=== PATIENT | male | born 1935 | race Caucasian/White ===

== ENCOUNTER 2016-04-26 10:13 | Outpatient (RCR) | payer MEDICARE, MEDICAID ==
[~2016-04-26 10:13] MED LIST: AC500T PO; AC80CT PO; ACDPT PO; ACET-2027 PO; ACET-2469 PO; ALBU2.5V4 IH; ALBU2.5V4 IN; AMLO10TA PO; AMLO10TA2 PO; AMLO10TA5; AMLO10TA82 PO; AMOX500C2 PO; ASPI-586 PO; ATEN50TA PO; ATN25T; ATN50T; ATOR40TA70 PO; ATROPINE EYE; AZIT-21 PO; AZIT250T5 PO; BENA20TA2 PO; BENZ-13 PO; BENZ200C51 PO; BNZ20T PO; C250T; C250T PO; CEFD300C3 PO; CHLO PO; CLN.1T; CLN.1T PO; CLON1TAB27 PO; CLON1TAB3 PO; CYAN50LO PO; DEXL60CA PO; DIPH25TA82 PO; DOXA2TAB2 PO; DOXA4TAB2 PO; DOXY100C2 PO; DOXY100C42 PO; DPH25C; FENO135C PO; FISH1CAP15 PO; FISH400C PO; FLUT16SP22 NS; GENTAMICIN; GLIP10TA13 PO; GLIP5TAB13 PO; GLPZ10TCR; GUAI600T43 PO; GUAI600T86 PO; HYDR-2856 PO; HYDR1TAB PO; IBP800T; IBP800T PO; LEVO500T69 PO; LEVO5TAB12 PO; LEVO5TAB2 PO; LORA1TAB PO; LORA2TAB PO; LOSA100T16; LOSA100T16 PO; LOVA10TA; LOVA10TA PO; LRZ1T; LSRT50T; LVST20T; METF500T4 PO; METH4TAB PO; MNTL10T PO; MONT10TA21 PO; MONT10TA24 PO; MTF500T; MTF500T PO; NF-ESOM40C PO; NF-TYLARTH; NF-VITB12; OXYB10TA PO; OXYB15TA PO; OXYC-12 PO; PANT40SU PO; PANT40TA3 PO; PARO20TA57; PHYT100T PO; PRD10T PO; PRD20T PO; PRD50T PO; PREG100C PO; PREG100C22 PO; PRM25T PO; PRM5C60 TOP; PROM6.25 PO; PRX20T; PRX20T PO; RANI150T90 PO; RIVA1PAT TD; RIVA1PAT11 TD; SCR1T1 PO; SENN15TA PO; SENN1TAB76; SENN1TAB76 PO; SNN187T; SUCR1TAB PO; TIOT18CA2 INH; TOLTA4; TOLTA4 PO; TRAM50TA2 PO; TRAV0.004S OP; TRIA15CR TOP; TYLENOL PM; VANCOMYCIN; VILA10TA PO; [UNRECOGNIZED DRUG - OTHER]
== END 2016-05-01 11:05 | disposition home or self-care (01) ==
PROVIDERS: ATTEND Nurse Practitioner Family
DX: M54.2 Cervicalgia (principal); R53.1 Weakness

== ENCOUNTER 2016-05-12 12:49 | Emergency (ER) | payer MEDICARE, MEDICAID ==
[~2016-05-12] VITALS: Ht 182.9 cm; Wt 90.7 kg
[2016-05-12 13:13] LABS: BASOPHILS % (AUTO) 0 % (0-10); EOSINOPHILS # (AUTO) 0.2 10^3/uL (0.0-0.3); EOSINOPHILS % (AUTO) 4 % (0-10); LYMPHOCYTES # (AUTO) 2.4 X 10^3 (1.0-4.0); LYMPHOCYTES % (AUTO) 36 % (12-44); MEAN CORPUSCULAR HEMOGLOBIN 29 PG (25-34); MEAN CORPUSCULAR HGB CONC 33 G/DL (32-36); MEAN CORPUSCULAR VOLUME 90 FL (80-99); MEAN PLATELET VOLUME 9.2 FL (7.4-10.4); MONOCYTES # (AUTO) 0.9 X 10^3 (0.0-1.0); MONOCYTES % (AUTO) 14 % (0-12); NEUTROPHILS # (AUTO) 3.1 X 10^3 (1.8-7.8); NEUTROPHILS % (AUTO) 46 % (42-75); PLATELET COUNT 204 10^3/uL (130-400); RED BLOOD COUNT 4.28 10^6/uL (4.35-5.85); RED CELL DISTRIBUTION WIDTH 12.6 % (10.0-14.5); WHITE BLOOD COUNT 6.7 10^3/uL (4.3-11.0)
--- NOTE | 2016-05-12 13:22 | Diagnostic Imaging Report ---
INDICATION: Chronic cough, occasional productive cough. EXAMINATION: Frontal chest 05/12/2016 Comparison made to 01/21/2016. findings: Bibasal atelectasis is noted versus infiltrates. No effusions. No pneumothorax. The heart is stable. Pulmonary vasculature is unremarkable. IMPRESSION: 1. Bibasal atelectasis versus mild infiltrate. Remaining chest stable. Dictated by: Dictated on workstation # [id number]
[2016-05-12 13:34] LABS: ALANINE AMINOTRANSFERASE 30 U/L (0-55); ALBUMIN 4.3 G/DL (3.2-4.5); ANION GAP 12 MMOL/L (5-14); ASPARTATE AMINO TRANSFERASE 27 U/L (5-34); BILIRUBIN,TOTAL 0.4 MG/DL (0.1-1.0); BLOOD UREA NITROGEN 10 MG/DL (7-18); BUN/CREATININE RATIO 12; CALCIUM 9.1 MG/DL (8.5-10.1); CARBON DIOXIDE 22 MMOL/L (21-32); CHLORIDE 107 MMOL/L (98-107); CREATININE SERUM 0.84 MG/DL (0.60-1.30); GFR ESTIMATED > 60; GLUCOSE 92 MG/DL (70-105); SODIUM 141 MMOL/L (135-145); TOTAL PROTEIN 6.6 G/DL (6.4-8.2)
--- NOTE | 2016-05-12 13:52 | ED Cough/URI ---
General Chief Complaint: Cough/Cold/Flu Symptoms Stated Complaint: COUGH Nursing Triage Note: To ER with complaints of chronic cough that has become somewhat productive. Denies any other s/s Source: patient, family Exam Limitations: no limitations History of Present Illness Time seen by provider: 13:45 Initial Comments The patient reports that he has a chronic cough. 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 Over the past 2 days he has had increased cough with the production of white sputum. He is unaware of any fever. He also reminds that he is diabetic. Timing/Duration: yesterday Severity/Quality: moderate, productive cough Allergies and Home Medications Allergies Coded Allergies: aspirin (Unverified Allergy, Unknown, 05/20/14) codeine (Verified Allergy, Unknown, 04/07/06) hydrocodone (Unverified Allergy, Unknown, 10/16/15) Uncoded Allergies: SSRI (Allergy, Unknown, 05/20/14) TCA (Allergy, Unknown, 05/20/14) Home Medications Acetaminophen/Diphenhydramine 1 Each Tablet Unknown Dose PO (Reported) Albuterol Sulfate 2.5 Mg/3 Ml Vial.neb 2.5 MG IH Q4H PRN PRN SHORTNESS OF BREATH (Reported) Amlodipine Besylate 10 Mg Tablet 10 MG PO DAILY (Reported) Atorvastatin Calcium 40 Mg Tablet 40 MG PO HS (Reported) Benazepril HCl 20 Mg Tablet 20 MG PO DAILY (Reported) Chlorphen/Dm/Acetaminophen/GG 1 Each Tb.cp.seq 1-2 TAB PO Q6H PRN PRN DRAINAGE ( Reported) Clonazepam 1 Mg Tablet 1 MG PO Q8H PRN PRN ANXIETY (Reported) Cyanocobalamin 50 Mcg Lozenge 500 MCG PO DAILY (Reported) Doxazosin Mesylate 4 Mg Tablet 4 MG PO HS (Reported) Fish Oil/Dha/Epa 1 Each Capsule 1 EACH PO DAILY (Reported) Glipizide 5 Mg Tablet 5 MG PO DAILY (Reported) Levocetirizine Dihydrochloride 5 Mg Tablet 5 MG PO HS (Reported) Metformin HCl 500 Mg Tablet 250 MG PO BID WITH MEALS (Reported) TAKES 1/2 (500MG) TABLET Montelukast Sodium 10 Mg Tablet 10 MG PO HS (Reported) Montelukast Sodium 10 Mg Tablet 10 MG PO HS (Reported) Oxybutynin Chloride 10 Mg Tab.er.24 10 MG PO DAILY (Reported) Pantoprazole Sodium 40 Mg Tablet.dr 40 MG PO HS (Reported) Pregabalin 100 Mg Capsule 100 MG PO BID (Reported) Ranitidine HCl 150 Mg Tablet 150 MG PO BID (Reported) Rivastigmine 4.6 Mg Patch 4.6 MG TD DAILY (Reported) Sucralfate 1 Gm Tablet 1 GM PO QID (Reported) Tiotropium [place] 1 Inh Aerp 1 CAP INH HS (Reported) Tramadol HCl 50 Mg Tablet 50 MG PO BID PRN PRN PAIN (Reported) Triamcinolone Acetonide 15 Gm Cream..g. TOP BID (Reported) 0.1% APPLY TO FEET Vilazodone Hydrochloride 10 Mg Tablet 10 MG PO HS (Reported) Constitutional: see HPI EENTM: no symptoms reported Respiratory: cough dyspnea on exertion phlegm Cardiovascular: no symptoms reported Gastrointestinal: no symptoms reported Genitourinary: no symptoms reported Musculoskeletal: no symptoms reported Skin: no symptoms reported Psychiatric/Neurological: No Symptoms Reported Hematologic/Lymphatic: No Symptoms Reported Immunological/Allergic: no symptoms reported Past Phnrzpn-Cnncjn-Golebi Hx Patient Social History Alcohol Use: Past History Recreational Drug Use: No Smoking Status: Former Smoker Type Used: Cigarettes Former Smoker/When Quit: May 26, 1959 2nd Hand Smoke Exposure: No Recent Foreign Travel: No Contact w/Someone Who Travel: No Recent Infectious Disease Expo: No Recent Hopitalizations: No Immunizations Up To Date Tetanus Booster (TDap): Unknown Date of Pneumonia Vaccine: Jan 23, 2015 Date of Influenza Vaccine: Dec 20, 2015 Seasonal Allergies Seasonal Allergies: No Surgeries HX Surgeries: Yes Surgeries: Abdominal, Adenoidectomy, Eye Surgery, Prostatectomy, Tonsillectomy Respiratory Hx Respiratory Disorders: Yes (wears O2 at noc at 2 L/m by nasal cannula) Respiratory Disorders: Asthma, Pneumonia, Chronic Bronchitis, COPD Cardiovascular Hx Cardiac Disorders: Yes Cardiac Disorders: Chronic Edema/Swelling, High Cholesterol, Hypertension Neurological Hx Neurological Disorders: Yes Neurological Disorders: Dementia Reproductive System Hx Reproductive Disorders: No Sexually Transmitted Disease: No Genitourinary Hx Genitourinary Disorders: Yes (PROSTATE CANCER > 10 YEARS AGO) Genitourinary Disorders: Prostate Problems Gastrointestinal Hx Gastrointestinal Disorders: Yes Gastrointestinal Disorders: Abdominal Hernia, Gastroesophageal Reflux, Polyps, Hiatal Hernia Musculoskeletal Hx Musculoskeletal Disorders: Yes ("Lyrica for arthritis") Musculoskeletal Disorders: Arthritis Endocrine Hx Endocrine Disorders: Yes Endocrine Disorders: Diabetes, Non-Insulin dep HEENT HX ENT Disorders: Yes (tear duct dysfunction, vision deficit/disfigurement of right eye, sinusitis) Cancer Hx Cancer: Yes (PROSTATE CANCER-S/P SURGERY ONLY;BASAL CELL CA R EYELID) Cancer: Prostate, Skin Psychosocial Hx Psychiatric Problems: Yes Behavioral Health Disorders: Anxiety, Depression Integumentary HX Skin/Integumentary Disorder: Yes (SKIN CANCER) Blood Transfusions Hx Blood Disorders: No Adverse Reaction to a Blood Tr: No Family Medical History Significant Family History: No Pertinent Family Hx Family Medial History: FH: breast cancer G8 SISTER Physical Exam Vital Signs Vital Sign - Last 12Hours Capillary Refill : Less Than 3 Seconds General Appearance: mild distress Eyes: Bilateral Eye Normal Inspection HEENT: normal ENT inspection Neck: full range of motion Respiratory: chest non-tender decreased breath sounds (breath sounds are distant but clear) Cardiovascular: normal peripheral pulses regular rate, rhythm no edema no gallop no JVD no murmur Gastrointestinal: normal bowel sounds non tender soft no organomegaly no pulsatile mass Extremities: normal range of motion non-tender normal inspection no pedal edema no calf tenderness normal capillary refill pelvis stable Neurologic/Psychiatric: air sampling and monitoring II-XII nml as tested no motor/sensory deficits alert normal mood/affect oriented x 3 Skin: normal color warm/dry cyanosis cool diaphoresis damp Lymphatic: no adenopathy axilla node tender (R) axilla node tender (L) inguinal node tender (R) inguinal node tender (L) Progress/Results/Core Measures Results/Orders Lab Results Laboratory Tests Test 05/12/16 13:00 Range/Units Alanine Aminotransferase (ALT/SGPT) 30 0-55 U/L Albumin 4.3 3.2-4.5 G/DL Alkaline Phosphatase 65 40-136 U/L Anion Gap 12 5-14 MMOL/L Aspartate Amino Transf (AST/SGOT) 27 5-34 U/L BUN/Creatinine Ratio 12 Basophils # (Auto) 0.0 0.0-0.1 10^3/uL Basophils (%) (Auto) 0 0-10 % Blood Urea Nitrogen 10 7-18 MG/DL Calcium Level 9.1 8.5-10.1 MG/DL Carbon Dioxide Level 22 21-32 MMOL/L Chloride Level 107 98-107 MMOL/L Creatinine 0.84 0.60-1.30 MG/DL Eosinophils # (Auto) 0.2 0.0-0.3 10^3/uL Eosinophils (%) (Auto) 4 0-10 % Estimat Glomerular Filtration Rate > 60 Glucose Level 92 70-105 MG/DL Hematocrit 39 L 40-54 % Hemoglobin 12.6 L 13.3-17.7 G/DL Lymphocytes # (Auto) 2.4 1.0-4.0 X 10^3 Lymphocytes (%) (Auto) 36 12-44 % Mean Corpuscular Hemoglobin 29 25-34 PG Mean Corpuscular Hemoglobin Concent 33 32-36 G/DL Mean Corpuscular Volume 90 80-99 FL Mean Platelet Volume 9.2 7.4-10.4 FL Monocytes # (Auto) 0.9 0.0-1.0 X 10^3 Monocytes (%) (Auto) 14 H 0-12 % Neutrophils # (Auto) 3.1 1.8-7.8 X 10^3 Neutrophils (%) (Auto) 46 42-75 % Platelet Count 204 130-400 10^3/uL Potassium Level 4.0 3.6-5.0 MMOL/L Red Blood Count 4.28 L 4.35-5.85 10^6/uL Red Cell Distribution Width 12.6 10.0-14.5 % Sodium Level 141 135-145 MMOL/L Total Bilirubin 0.4 0.1-1.0 MG/DL Total Protein 6.6 6.4-8.2 G/DL White Blood Count 6.7 4.3-11.0 10^3/uL Micro Results Microbiology 05/12/16 Influenza Types A,B Antigen ([facility]) - Final, Complete My Orders Orders-TOMMY BONILLA MD Cbc With Automated Diff (05/12/16 12:52) Comprehensive Metabolic Panel (05/12/16 12:52) Influenza A And B Antigens (05/12/16 12:52) Chest 1 View, Ap/Pa Only (05/12/16 12:52) Vital Signs/I&O Vital Sign - Last 12Hours 05/12/16 05/12/16 13:00 13:00 Temp 99.0 Pulse 76 Resp 18 B/P 132/75 Pulse Ox 93 O2 Delivery Nasal Cannula Nasal Cannula O2 Flow Rate 2 2 Blood Pressure Mean: 94 Departure Impression Impression: Primary Impression: bronchitis Disposition: 01 HOME, SELF-CARE Condition: Stable/Unchanged Departure-Patient Inst. Decision time for Depature: 13:49 Referrals: ASIM LINARES (PCP) Primary Care Physician Patient Instructions: Acute Bronchitis, Adult (DC) Add. Discharge Instructions: All discharge instructions reviewed with patient and/or family. Voiced understanding. Omnicef as directed this is an antibiotic useful in bronchitis. Tessalon Perles for cough. Scripts Benzonatate (Tessalon Perle)100 Mg [id number] Mg PO twice a day #20 CAP Prov:TOMMY BONILLA MD 05/12/16 Cefdinir 300 Mg [id number] Mg PO twice a day #14 CAP Prov:TOMMY BONILLA MD 05/12/16 TOMMY BONILLA MD May 12, 2016 13:52
[2016-05-12] MEDS ORDERED: CEFD300C3 PO (13:53)
[2016-05-12] MEDS ORDERED: BENZ-13 PO (13:53)
[2016-05-12 13:59] VITALS: BP 116/67
== END 2016-05-12 14:00 | disposition home or self-care (01) ==
LOC: EDUNIT# 12:49 → ER 12:50
DX: J40 Bronchitis, not specified as acute or chronic (principal); J43.9 Emphysema, unspecified; I10 Essential (primary) hypertension; E11.9 Type 2 diabetes mellitus without complications; Z79.899 Other long term (current) drug therapy; Z79.84 Long term (current) use of oral hypoglycemic drugs; Z87.891 Personal history of nicotine dependence
CPT/HCPCS: 36415; 71010; 80053; 85025; 87804

== ENCOUNTER 2016-05-19 23:46 | Emergency (ER) | payer MEDICARE, MEDICAID ==
[~2016-05-19] VITALS: Ht 182.9 cm; Wt 90.7 kg
--- OUTSIDE RECORDS SUMMARY | 2016-05-19 23:54 | XMS REPORT | Continuity of Care Document ---
Author Author [facility] Organization [facility] Address Unknown Phone Unavailable Allergies Active Description Code Type Severity Reaction Onset Reported/Identified Relationship to Patient Clinical Status Yes codeine [id number] Drug Allergy Unknown N/A 04/07/2006 Yes aspirin [id number] Drug Allergy Unknown N/A 05/20/2014 Yes SSRI SSRI Unknown N/A 05/20/2014 Yes TCA TCA Unknown N/A 05/20/2014 Yes hydrocodone [id number] Drug Allergy Unknown N/A 10/16/2015 Medications Problems Date Dx Coded Attending Type Code Diagnosis Diagnosed By 02/28/1104 ASIM LINARES Ot M54.2 CERVICALGIA 02/28/1104 ASIM LINARES Ot R53.1 WEAKNESS 10/09/2009 Ot 250.00 10/09/2009 Ot 401.9 10/09/2009 Ot 780.4 10/09/2009 Ot 787.03 10/09/2009 Ot V58.69 02/25/2010 Ot 692.9 02/25/2010 Ot 782.1 03/16/2010 Ot 250.00 03/16/2010 Ot 276.1 03/16/2010 Ot 300.4 03/16/2010 Ot 401.9 03/16/2010 Ot 788.20 09/17/2010 Ot 379.91 PAIN IN OR AROUND EYE 09/17/2010 Ot V45.89 POSTSURGICAL STATES NEC 10/06/2010 Ot 379.91 PAIN IN OR AROUND EYE 10/06/2010 Ot V45.89 POSTSURGICAL STATES NEC 10/15/2010 Ot 185 MALIGN NEOPL PROSTATE 10/15/2010 Ot 250.00 DIAB KASSANDRA WO COMPL, TYPE II OR UNSPEC TY 10/15/2010 Ot 401.9 HYPERTENSION NOS 10/15/2010 Ot 788.1 DYSURIA 10/15/2010 Ot 791.9 ABN URINE FINDINGS NEC 01/28/2011 Ot 466.0 ACUTE BRONCHITIS 01/28/2011 Ot 786.2 COUGH 02/23/2011 Ot 300.00 ANXIETY STATE NOS 02/23/2011 Ot 490 BRONCHITIS NOS 02/23/2011 Ot 553.3 DIAPHRAGMATIC HERNIA 02/23/2011 Ot 786.05 SHORTNESS OF BREATH 03/25/2011 Ot 401.9 HYPERTENSION NOS 03/25/2011 Ot 461.9 ACUTE SINUSITIS NOS 03/25/2011 Ot 490 BRONCHITIS NOS 03/25/2011 Ot 786.2 COUGH 03/25/2011 Ot V58.69 OTH MED,LT,CURRENT USE 03/26/2011 Ot 250.00 DIAB KASSANDRA WO COMPL, TYPE II OR UNSPEC TY 03/26/2011 Ot 401.9 HYPERTENSION NOS 03/26/2011 Ot 466.0 ACUTE BRONCHITIS 03/26/2011 Ot 786.59 CHEST PAIN NEC 03/26/2011 Ot V58.69 OTH MED,LT,CURRENT USE 04/07/2011 Ot 250.00 DIAB KASSANDRA WO COMPL, TYPE II OR UNSPEC TY 04/07/2011 Ot 401.9 HYPERTENSION NOS 04/07/2011 Ot 491.22 OBSTRUCTIVE CHRONIC BRONCHITIS WITH ACUT 04/07/2011 Ot 786.2 COUGH 04/18/2011 Ot 250.00 DIAB KASSANDRA WO COMPL, TYPE II OR UNSPEC TY 04/18/2011 Ot 300.00 ANXIETY STATE NOS 04/18/2011 Ot 401.9 HYPERTENSION NOS 04/18/2011 Ot 789.09 ABDOMINAL PAIN, OTHER SPECIFIED SITE 04/18/2011 Ot V58.69 OTH MED,LT,CURRENT USE 04/19/2011 Ot 300.00 ANXIETY STATE NOS 04/21/2013 SHAYY DUARTE, CEASAR Brock Ot 486 PNEUMONIA, ORGANISM NOS 04/21/2013 SHAYY DUARTE, CEASAR Brock Ot 786.2 COUGH 04/21/2013 SHAYY DUARTE, CEASAR Brock Ot V06.6 PROPHYLACTIC VACC AGNST STREPTOCOCCUS PN 07/28/2013 NIEVES ALVARADO MD Ot 466.0 ACUTE BRONCHITIS 07/28/2013 CHRISTIANO DUARTE, NIEVES Luis Ot 786.2 COUGH 11/17/2013 AYLIN SANTACRUZ MD Ot 716.96 ARTHROPATHY NOS-L/LEG 11/17/2013 AYLIN SANTACRUZ MD Ot V57.1 PHYSICAL THERAPY NEC 01/15/2014 NELY MCCABE MD Ot 250.00 DIAB KASSANDRA WO COMPL, TYPE II OR UNSPEC TY 01/15/2014 NELY MCCABE MD Ot 401.9 HYPERTENSION NOS 01/15/2014 NELY MCCABE MD Ot 784.7 EPISTAXIS 01/15/2014 NELY MCCABE MD Ot V58.69 OT MED,LT,CURRENT USE 04/05/2014 LELAND DUARTE FACC, ALI FACP CCDS Ot 250.00 04/05/2014 LELAND DUARTE FACC, ALI FACP CCDS Ot 272.4 04/05/2014 LELAND DUARTE FACC, ALI FACP CCDS Ot 401.9 04/05/2014 LELAND DUARTE FAC, ALI FACP CCDS Ot 786.59 04/05/2014 LELAND DUARTE FAC, ALI FACP CCDS Ot V58.69 04/05/2014 LELAND DUARTE FAC, ALI FACP CCDS Ot 250.00 04/05/2014 LELAND DUARTE FAC, ALI FACP CCDS Ot 272.4 04/05/2014 LELAND DUARTE FAC, ALI FACP CCDS Ot 401.9 04/05/2014 LELAND DUARTE [facility], ALI FACP CCDS Ot 786.59 04/05/2014 LELAND DUARTE [facility], ALI FACP CCDS Ot V58.69 05/20/2014 Ot 473.9 CHRONIC SINUSITIS NOS 05/20/2014 Ot 786.2 COUGH 09/02/2014 BOZENA WERNER WIRELESS ARCHITECT Ot 466.0 ACUTE BRONCHITIS 09/02/2014 BOZENA WERNER WIRELESS ARCHITECT Ot 786.2 COUGH 12/26/2014 SHAYY DUARTE, CEASAR Brock Ot 491.21 OBSTR CHRONIC BRONCHITIS, W (ACUTE) EXAC 12/26/2014 CEASAR LUCAS MD Ot 786.2 COUGH 12/28/2014 KAYLIN DUARTE, ORESTES Chavez Ot 724.2 12/28/2014 KAYLIN DUARTE, ORESTES Chavez Ot 728.87 01/04/2015 KAYLIN DUARTE, ORESTES Chavez Ot 724.2 01/04/2015 KAYLIN DUARTE, ORESTES Chavez Ot 728.87 02/24/2015 NIEVES ALVARADO MD Ot J20.9 ACUTE BRONCHITIS, UNSPECIFIED 03/01/2015 KAYLIN DUARTE, ORESTES Chavez Ot J18.9 03/06/2015 ORESTES EWING MD Ot J18.9 03/10/2015 KAYLIN DUARTE, ORESTES Chavez Ot J44.9 03/15/2015 KAYLIN DUARTE, ORESTES Chavez Ot J44.9 03/21/2015 ELIOT DUARTE, NELY Craft Ot F17.211 NICOTINE DEPENDENCE, CIGARETTES, IN [place] 03/21/2015 ELIOT DUARTE, NELY Craft Ot J44.0 CHRONIC OBSTRUCTIVE PULMON DISEASE W ACU 03/28/2015 Ot 272.4 03/28/2015 Ot 401.9 03/28/2015 Ot V58.69 03/28/2015 Ot 272.4 03/28/2015 Ot 401.9 03/28/2015 Ot V58.69 03/28/2015 Ot 272.4 03/28/2015 Ot 401.9 03/28/2015 Ot V58.69 03/28/2015 Ot 272.4 03/28/2015 Ot 401.9 03/28/2015 Ot V58.69 03/28/2015 Ot 272.4 03/28/2015 Ot 414.00 03/28/2015 Ot V58.69 03/28/2015 Ot 250.00 03/28/2015 Ot 272.4 03/28/2015 Ot V58.69 03/28/2015 Ot 272.4 03/28/2015 Ot 401.9 03/28/2015 Ot V58.69 03/28/2015 BAIMAJUVENAL L DRY WALL APPLICATOR Ot 272.4 03/28/2015 BAIMAJUVENAL L DRY WALL APPLICATOR Ot 401.9 03/28/2015 BAIMA JUVENAL L DRY WALL APPLICATOR Ot 272.4 03/28/2015 BAIMA JUVENAL L DRY WALL APPLICATOR Ot 401.9 03/28/2015 BAIMA JUVENAL L DRY WALL APPLICATOR Ot V58.69 03/28/2015 LELAND DUARTE FACC, ALI FACP CCDS Ot 250.00 03/28/2015 LELAND DUARTE FACC, ALI FACP CCDS Ot 272.4 03/28/2015 LELAND DUARTE FACC, ALI FACP CCDS Ot 401.9 03/28/2015 LELAND DUARTE FACC, ALI FACP CCDS Ot 786.59 03/28/2015 LELAND DUARTE FACC, ALI FACP CCDS Ot V58.69 03/28/2015 KAYLIN DUARTE, ORESTES Chavez Ot 724.2 03/28/2015 KAYLIN DUARTE, ORESTES Chavez Ot 728.87 03/28/2015 KAYLIN DUARTE, ORESTES Chavez Ot J44.9 03/28/2015 KAYLIN DUARTE, ORESTES Chavez Ot J18.9 04/20/2015 NATHANIEL JETT WIRELESS ARCHITECT Ot R04.2 04/26/2015 NATHANIEL JETT OMER Ot R04.2 05/27/2015 MARSHAL SANDERS DO Ot E11.9 TYPE 2 DIABETES MELLITUS WITHOUT COMPLIC 05/27/2015 LEI SANDERS DOI Ot E78.5 HYPERLIPIDEMIA, UNSPECIFIED 05/27/2015 LEI SANDERS DOI Ot F03.90 UNSPECIFIED DEMENTIA WITHOUT BEHAVIORAL 05/27/2015 LEI SANDERS DOI Ot F17.210 NICOTINE DEPENDENCE, CIGARETTES, UNCOMPL 05/27/2015 LEI SANDERS DOI Ot F32.9 MAJOR DEPRESSIVE DISORDER, SINGLE EPISOD 05/27/2015 LEI SANDERS DOI Ot I10 ESSENTIAL (PRIMARY) HYPERTENSION 05/27/2015 LEI SANDERS DOI Ot I65.23 OCCLUSION AND STENOSIS OF BILATERAL LINK 05/27/2015 LEI SANDERS DOI Ot J44.9 CHRONIC OBSTRUCTIVE PULMONARY DISEASE, U 05/27/2015 TOMMY SRINIVASAN MARSHAL Ot K21.9 GASTRO-ESOPHAGEAL REFLUX DISEASE WITHOUT 05/27/2015 TOMMY SRINIVASAN MARSHAL Ot N40.0 ENLARGED PROSTATE WITHOUT LOWER URINARY 05/27/2015 LEI SANDERS DOI Ot R07.9 CHEST PAIN, UNSPECIFIED 05/27/2015 LEI SANDERS DOI Ot Z99.81 DEPENDENCE ON SUPPLEMENTAL OXYGEN 05/31/2015 SABRINA MARKS DO Ot E66.9 05/31/2015 SABRINA MARSK DO Ot J44.9 05/31/2015 SABRINA MARKS DO Ot Z85.828 06/12/2015 SABRINA MARKS DO Ot E66.9 06/12/2015 SABRINA MARKS DO Ot J44.9 06/12/2015 SABRINA MARKS DO Ot Z85.828 06/20/2015 SABRINA MARKS DO Ot E66.9 06/20/2015 SABRINA MARKS DO Ot J44.9 06/20/2015 SABRINA MARKS DO Ot R06.00 06/20/2015 SABRINA MARKS DO Ot Z85.828 07/03/2015 SABRINA MARKS DO Ot E66.9 07/03/2015 SABRINA MARKS DO Ot J44.9 07/03/2015 SABRINA MARKS DO Ot R06.00 07/03/2015 SABRINA MARKS DO Ot Z85.828 07/30/2015 Ot 250.00 DIAB KASSANDRA WO COMPL, TYPE II OR UNSPEC TY 07/30/2015 Ot 401.9 HYPERTENSION NOS 07/30/2015 Ot 466.0 ACUTE BRONCHITIS 07/30/2015 Ot 786.59 CHEST PAIN NEC 07/30/2015 Ot V58.69 OTH MED,LT,CURRENT USE 08/30/2015 Ot 250.00 DIAB KASSANDRA WO COMPL, TYPE II OR UNSPEC TY 08/30/2015 Ot 401.9 HYPERTENSION NOS 08/30/2015 Ot 466.0 ACUTE BRONCHITIS 08/30/2015 Ot 786.59 CHEST PAIN NEC 08/30/2015 Ot V58.69 OTH MED,LT,CURRENT USE 09/29/2015 Ot 300.00 09/29/2015 Ot V58.69 10/16/2015 JOSHUA SRINIVASAN ROBBY Estela Ot I51.7 CARDIOMEGALY 10/16/2015 MICHELLE LEWIS DOA Estela Ot J44.0 CHRONIC OBSTRUCTIVE PULMON DISEASE W ACU 10/16/2015 MICHELLE LEWIS DOA Estela Ot R05 COUGH 10/16/2015 MICHELLE LEWIS DOA Estela Ot Z87.891 PERSONAL HISTORY OF NICOTINE DEPENDENCE 10/30/2015 Ot 300.00 10/30/2015 Ot V58.69 12/27/2015 ROBBY HANLEY MD Ot E11.9 TYPE 2 DIABETES MELLITUS WITHOUT COMPLIC 12/27/2015 ROBBY HANLEY MD Ot I10 ESSENTIAL (PRIMARY) HYPERTENSION 12/27/2015 ROBBY HANLEY MD Ot I44.0 ATRIOVENTRICULAR BLOCK, FIRST DEGREE 12/27/2015 ROBBY HANLEY MD Ot J44.1 CHRONIC OBSTRUCTIVE PULMONARY DISEASE W 12/27/2015 ROBBY HANLEY MD Ot K21.9 GASTRO-ESOPHAGEAL REFLUX DISEASE WITHOUT 12/27/2015 ROBBY HANLEY MD Ot K44.9 DIAPHRAGMATIC HERNIA WITHOUT OBSTRUCTION 12/27/2015 ROBBY HANLEY MD Ot Z87.891 PERSONAL HISTORY OF NICOTINE DEPENDENCE 01/01/2016 Ot 272.4 HYPERLIPIDEMIA NEC/NOS 01/01/2016 Ot 401.9 HYPERTENSION NOS 01/01/2016 Ot V58.69 OTH MED,LT,CURRENT USE 01/01/2016 Ot 272.4 HYPERLIPIDEMIA NEC/NOS 01/01/2016 Ot 401.9 HYPERTENSION NOS 01/01/2016 Ot V58.69 OTH MED,LT,CURRENT USE 01/01/2016 Ot 272.4 HYPERLIPIDEMIA NEC/NOS 01/01/2016 Ot 401.9 HYPERTENSION NOS 01/01/2016 Ot V58.69 OTH MED,LT,CURRENT USE 01/01/2016 Ot 272.4 HYPERLIPIDEMIA NEC/NOS 01/01/2016 Ot 414.00 CORON ATHEROSCLER NOS TYPE VESSEL, NATIV 01/01/2016 Ot V58.69 OTH MED,LT,CURRENT USE 01/01/2016 Ot 250.00 DIAB KASSANDRA WO COMPL, TYPE II OR UNSPEC TY 01/01/2016 Ot 272.4 HYPERLIPIDEMIA NEC/NOS 01/01/2016 Ot V58.69 OTH MED,LT,CURRENT USE 01/01/2016 Ot 272.4 HYPERLIPIDEMIA NEC/NOS 01/01/2016 Ot 401.9 HYPERTENSION NOS 01/01/2016 Ot V58.69 OTH MED,LT,CURRENT USE 01/01/2016 BAIMA, JUVENAL L DRY WALL APPLICATOR Ot 272.4 HYPERLIPIDEMIA NEC/NOS 01/01/2016 BAIMA, JUVENAL L DRY WALL APPLICATOR Ot 401.9 HYPERTENSION NOS 01/01/2016 BAIMA, JUVENAL L DRY WALL APPLICATOR Ot 272.4 HYPERLIPIDEMIA NEC/NOS 01/01/2016 BAIMA, JUVENAL L DRY WALL APPLICATOR Ot 401.9 HYPERTENSION NOS 01/01/2016 BAIMA, JUVENAL L DRY WALL APPLICATOR Ot V58.69 OTH MED,LT,CURRENT USE 01/01/2016 LELAND DUARTE FACC, CARLOS FACP CCDS Ot 250.00 DIAB KASSANDRA WO COMPL, TYPE II OR UNSPEC TY 01/01/2016 LELAND DUARTE FACC, ALI FACP CCDS Ot 272.4 HYPERLIPIDEMIA NEC/NOS 01/01/2016 LELAND DUARTE FACC, ALI FACP CCDS Ot 401.9 HYPERTENSION NOS 01/01/2016 LELAND DUARTE FACC, ALI FACP CCDS Ot 786.59 CHEST PAIN NEC 01/01/2016 LELAND DUARTE FACC, ALI FACP CCDS Ot V58.69 OTH MED,LT,CURRENT USE 01/01/2016 KAYLIN DUARTE, ORESTES Chavez Ot 724.2 LUMBAGO 01/01/2016 KAYLIN DUARTE, ROESTES Chavez Ot 728.87 MUSCLE WEAKNESS (GENERALIZED) 01/01/2016 KAYLIN DUARTE, ORESTES Chavez Ot J44.9 CHRONIC OBSTRUCTIVE PULMONARY DISEASE, U 01/01/2016 KAYLIN DUARTE, ORESTES Chavez Ot J18.9 PNEUMONIA, UNSPECIFIED ORGANISM 01/01/2016 NATHANIEL JETT APRN Ot R04.2 HEMOPTYSIS 01/01/2016 SABRINA MARKS DO Ot E66.9 OBESITY, UNSPECIFIED 01/01/2016 SABRINA MARKS DO Ot J44.9 CHRONIC OBSTRUCTIVE PULMONARY DISEASE, U 01/01/2016 SABRINA MARKS DO Ot Z85.828 PERSONAL HISTORY OF OTHER MALIGNANT NEOP 01/01/2016 SABRINA MARKS DO Ot E66.9 OBESITY, UNSPECIFIED 01/01/2016 SABRINA MARKS DO Ot J44.9 CHRONIC OBSTRUCTIVE PULMONARY DISEASE, U 01/01/2016 SABRINA MARKS DO Ot R06.00 DYSPNEA, UNSPECIFIED 01/01/2016 SABRINA MARKS DO Ot Z85.828 PERSONAL HISTORY OF OTHER MALIGNANT NEOP 01/21/2016 CEASAR LUCAS MD Ot E11.9 TYPE 2 DIABETES MELLITUS WITHOUT COMPLIC 01/21/2016 CEASAR LUCAS MD Ot I10 ESSENTIAL (PRIMARY) HYPERTENSION 01/21/2016 CEASAR LUCAS MD Ot J02.9 ACUTE PHARYNGITIS, UNSPECIFIED 01/21/2016 CEASAR LUCAS MD Ot J44.1 CHRONIC OBSTRUCTIVE PULMONARY DISEASE W 01/21/2016 CEASAR LUCAS MD Ot R05 COUGH 01/21/2016 CEASAR LUCAS MD Ot Z79.84 HALF-WAY (CURRENT) USE OF ORAL HYPOGLYC 01/21/2016 CEASAR LUCAS MD Ot Z79.899 OTHER HALF-WAY (CURRENT) DRUG THERAPY 01/22/2016 CEASAR LUCAS MD Ot E11.9 TYPE 2 DIABETES MELLITUS WITHOUT COMPLIC 01/22/2016 CEASAR LUCAS MD Ot I10 ESSENTIAL (PRIMARY) HYPERTENSION 01/22/2016 CEASAR LUCAS MD Ot J02.9 ACUTE PHARYNGITIS, UNSPECIFIED 01/22/2016 CEASAR LUCAS MD Ot J44.1 CHRONIC OBSTRUCTIVE PULMONARY DISEASE W 01/22/2016 CEASAR LUCAS MD Ot R05 COUGH 01/22/2016 CEASAR LUCAS MD Ot Z79.84 HALF-WAY (CURRENT) USE OF ORAL HYPOGLYC 01/22/2016 CEASAR LUCAS MD Ot Z79.899 OTHER HALF-WAY (CURRENT) DRUG THERAPY 02/29/2016 Ot 300.00 02/29/2016 Ot V58.69 03/05/2016 SUKI HERNANDEZ MD, Ot K21.9 GASTRO-ESOPHAGEAL REFLUX DISEASE WITHOUT 03/05/2016 SUKI HERNANDEZ MD Ot Z01.818 ENCOUNTER FOR OTHER PREPROCEDURAL EXAMIN 03/05/2016 SUKI HERNANDEZ MD Ot Z12.11 ENCOUNTER FOR SCREENING FOR MALIGNANT NE 03/05/2016 SUKI HERNANDEZ MD Ot Z86.010 PERSONAL HISTORY OF COLONIC POLYPS 03/08/2016 SUKI HERNANDEZ MD Ot K21.9 GASTRO-ESOPHAGEAL REFLUX DISEASE WITHOUT 03/08/2016 SUKI HERNANDEZ MD Ot Z01.818 ENCOUNTER FOR OTHER PREPROCEDURAL EXAMIN 03/08/2016 SUKI HERNANDEZ MD Ot Z12.11 ENCOUNTER FOR SCREENING FOR MALIGNANT NE 03/08/2016 SUKI HERNANDEZ MD Ot Z86.010 PERSONAL HISTORY OF COLONIC POLYPS 03/08/2016 SUKI HERNANDEZ MD Ot K21.9 GASTRO-ESOPHAGEAL REFLUX DISEASE WITHOUT 03/08/2016 SUKI HERNANDEZ MD Ot Z01.818 ENCOUNTER FOR OTHER PREPROCEDURAL EXAMIN 03/08/2016 SUKI HERNANDEZ MD Ot Z12.11 ENCOUNTER FOR SCREENING FOR MALIGNANT NE 03/08/2016 SUKI HERNANDEZ MD Ot Z86.010 PERSONAL HISTORY OF COLONIC POLYPS 03/27/2016 DOMINGA TOLEDO Ot E11.9 TYPE 2 DIABETES MELLITUS WITHOUT COMPLIC 03/27/2016 DOMINGA TOLEDO Ot I10 ESSENTIAL (PRIMARY) HYPERTENSION 03/27/2016 DOMINGA TOLEDO Ot S00.12XA CONTUSION OF LEFT EYELID AND PERIOCULAR 03/27/2016 DOMINGA TOLEDO Ot S09.90XA UNSPECIFIED INJURY OF HEAD, INITIAL ENCO 03/27/2016 DOMINGA TOLEDOP Ot W20.8XXA OTH CAUSE OF STRIKE BY THROWN, PROJECTED 03/27/2016 DOMINGA TOLEDOP Ot Y92.[address] [facility] 03/27/2016 DOMINGA TOLEDOP Ot Y99.8 OTHER EXTERNAL CAUSE STATUS 03/27/2016 DOMINGA TOLEDOP Ot Z79.84 COMPUTER INFORMATION SYSTEMS PROFESSOR (CURRENT) USE OF ORAL HYPOGLYC 03/27/2016 PARIS, DOMINGA DRY WALL APPLICATOR Ot Z79.899 OTHER COMPUTER INFORMATION SYSTEMS PROFESSOR (CURRENT) DRUG THERAPY 03/27/2016 PARIS, DOMINGA DRY WALL APPLICATOR Ot Z87.891 PERSONAL HISTORY OF NICOTINE DEPENDENCE 03/28/2016 PARIS, DOMINGA DRY WALL APPLICATOR Ot E11.9 TYPE 2 DIABETES MELLITUS WITHOUT COMPLIC 03/28/2016 PARIS, DOMINGA DRY WALL APPLICATOR Ot I10 ESSENTIAL (PRIMARY) HYPERTENSION 03/28/2016 PARIS, DOMINGA DRY WALL APPLICATOR Ot S00.12XA CONTUSION OF LEFT EYELID AND PERIOCULAR 03/28/2016 PARIS DOMINGA DRY WALL APPLICATOR Ot S09.90XA UNSPECIFIED INJURY OF HEAD, INITIAL ENCO 03/28/2016 DOMINGA TOLEDO DRY WALL APPLICATOR Ot W20.8XXA OTH CAUSE OF STRIKE BY THROWN, PROJECTED 03/28/2016 DOMINGA TOLEDOP Ot Y92.[address] [facility] [address] [facility] 03/28/2016 DOMINGA TOLEDOP Ot Y99.8 OTHER EXTERNAL CAUSE STATUS 03/28/2016 DOMINGA TOLEDO DRY WALL APPLICATOR Ot Z79.84 COMPUTER INFORMATION SYSTEMS PROFESSOR (CURRENT) USE OF ORAL HYPOGLYC 03/28/2016 PARIS, DOMINGA DRY WALL APPLICATOR Ot Z79.899 OTHER HALF-WAY (CURRENT) DRUG THERAPY 03/28/2016 PARIS, DOMINGA DRY WALL APPLICATOR Ot Z87.891 PERSONAL HISTORY OF NICOTINE DEPENDENCE 03/29/2016 PARIS, DOMINGA DRY WALL APPLICATOR Ot E11.9 TYPE 2 DIABETES MELLITUS WITHOUT COMPLIC 03/29/2016 PARIS, DOMINGA DRY WALL APPLICATOR Ot I10 ESSENTIAL (PRIMARY) HYPERTENSION 03/29/2016 PARIS, DOMINGA DRY WALL APPLICATOR Ot S00.12XA CONTUSION OF LEFT EYELID AND PERIOCULAR 03/29/2016 PARIS DOMINGA DRY WALL APPLICATOR Ot S09.90XA UNSPECIFIED INJURY OF HEAD, INITIAL ENCO 03/29/2016 PARIS, DOMINGA DRY WALL APPLICATOR Ot W20.8XXA OTH CAUSE OF STRIKE BY THROWN, PROJECTED 03/29/2016 DOMINGA TOLEDOP Ot Y92.[address] [facility] 03/29/2016 PARIS, DOMINGA MCCORMICKP Ot Y99.8 OTHER EXTERNAL CAUSE STATUS 03/29/2016 DOMINGA TOLEDOP Ot Z79.84 HALF-WAY (CURRENT) USE OF ORAL HYPOGLYC 03/29/2016 DOMINGA TOLEDO DRY WALL APPLICATOR Ot Z79.899 OTHER COMPUTER INFORMATION SYSTEMS PROFESSOR (CURRENT) DRUG THERAPY 03/29/2016 PARIS, DOMINGA DRY WALL APPLICATOR Ot Z87.891 PERSONAL HISTORY OF NICOTINE DEPENDENCE 03/31/2016 Ot 300.00 03/31/2016 Ot V58.69 03/31/2016 PARIS, DOMINGA DRY WALL APPLICATOR Ot E11.9 TYPE 2 DIABETES MELLITUS WITHOUT COMPLIC 03/31/2016 PARIS, DOMINGA DRY WALL APPLICATOR Ot I10 ESSENTIAL (PRIMARY) HYPERTENSION 03/31/2016 PARIS, DOMINGA DRY WALL APPLICATOR Ot S00.12XA CONTUSION OF LEFT EYELID AND PERIOCULAR 03/31/2016 DOMINGA TOLEDO DRY WALL APPLICATOR Ot S09.90XA UNSPECIFIED INJURY OF HEAD, INITIAL ENCO 03/31/2016 DOMINGA TOLEDOP Ot W20.8XXA OTH CAUSE OF STRIKE BY THROWN, PROJECTED 03/31/2016 DOMINGA TOLEDOP Ot Y92.[address] [facility] 03/31/2016 DOMINGA TOLEDOP Ot Y99.8 OTHER EXTERNAL CAUSE STATUS 03/31/2016 DOMINGA TOLEDOP Ot Z79.84 HALF-WAY (CURRENT) USE OF ORAL HYPOGLYC 03/31/2016 DOMINGA TOLEDO DRY WALL APPLICATOR Ot Z79.899 OTHER COMPUTER INFORMATION SYSTEMS PROFESSOR (CURRENT) DRUG THERAPY 03/31/2016 DOMINGA TOLEDO DRY WALL APPLICATOR Ot Z87.891 PERSONAL HISTORY OF NICOTINE DEPENDENCE 04/24/2016 ASIM LINARES DRY WALL APPLICATOR Ot M54.2 CERVICALGIA 04/24/2016 ASIM LINARES DRY WALL APPLICATOR Ot R53.1 WEAKNESS 05/13/2016 TOMMY BONILLA MD Ot E11.9 TYPE 2 DIABETES MELLITUS WITHOUT COMPLIC 05/13/2016 TOMMY BONILLA MD Ot I10 ESSENTIAL (PRIMARY) HYPERTENSION 05/13/2016 TOMMY BONILLA MD Ot J40 BRONCHITIS, NOT SPECIFIED ACUTE OR CH 05/13/2016 TOMMY BONILLA MD Ot J43.9 EMPHYSEMA, UNSPECIFIED 05/13/2016 TOMMY BONILLA MD Ot R05 COUGH 05/13/2016 TOMMY BONILLA MD Ot Z79.84 HALF-WAY (CURRENT) USE OF ORAL HYPOGLYC 05/13/2016 TOMMY BONILLA MD Ot Z79.899 OTHER HALF-WAY (CURRENT) DRUG THERAPY 05/13/2016 TOMMY BONILLA MD Ot Z87.891 PERSONAL HISTORY OF NICOTINE DEPENDENCE 05/13/2016 TOMMY BONILLA MD Ot E11.9 TYPE 2 DIABETES MELLITUS WITHOUT COMPLIC 05/13/2016 TOMMY BONILLA MD, Ot I10 ESSENTIAL (PRIMARY) HYPERTENSION 05/13/2016 TOMMY BONILLA MD, Ot J40 BRONCHITIS, NOT SPECIFIED ACUTE OR CH 05/13/2016 TOMMY BONILLA MD, Ot J43.9 EMPHYSEMA, UNSPECIFIED 05/13/2016 TOMMY BONILLA MD Ot R05 COUGH 05/13/2016 TOMMY BONILLA MD Ot Z79.84 HALF-WAY (CURRENT) USE OF ORAL HYPOGLYC 05/13/2016 TOMMY BONILLA MD Ot Z79.899 OTHER COMPUTER INFORMATION SYSTEMS PROFESSOR (CURRENT) DRUG THERAPY 05/13/2016 TOMMY BONILLA MD Ot Z87.891 PERSONAL HISTORY OF NICOTINE DEPENDENCE Procedures Results Test Result Range Complete blood count (CBC) with automated white blood cell (WBC) differential - 12/26/15 22:42 Blood leukocytes automated count (number/volume) 8.5 10*3/ uL 4.3-11.0 Blood erythrocytes automated count (number/volume) 4.52 10*6 /uL 4.35-5.85 Venous blood hemoglobin measurement (mass/volume) 13.5 g/dL 13.3-17.7 Blood hematocrit (volume fraction) 40 % 40-54 Automated erythrocyte mean corpuscular volume 89 [foz_us] 80-99 Automated erythrocyte mean corpuscular hemoglobin (mass per erythrocyte) 30 pg 25-34 Automated erythrocyte mean corpuscular hemoglobin concentration measurement ( mass/volume) 34 g/dL 32-36 Automated erythrocyte distribution width ratio 12.3 % 10.0-14.5 Automated blood platelet count (count/volume) 217 10*3/uL 130-400 Automated blood platelet mean volume measurement 9.5 [foz_us ] 7.4-10.4 Automated blood neutrophils/100 leukocytes 52 % 42-75 Automated blood lymphocytes/100 leukocytes 32 % 12-44 Blood monocytes/100 leukocytes 13 % 0-12 Automated blood eosinophils/100 leukocytes 3 % 0-10 Automated blood basophils/100 leukocytes 1 % 0-10 Blood neutrophils automated count (number/volume) 4.4 10*3 1.8-7.8 Blood lymphocytes automated count (number/volume) 2.7 10*3 1.0-4.0 Blood monocytes automated count (number/volume) 1.1 10*3 0.0-1.0 Automated eosinophil count 0.2 10*3/uL 0.0-0.3 Automated blood basophil count (count/volume) 0.1 10*3/uL 0.0-0.1 Comprehensive metabolic panel - 12/26/15 22:42 Serum or plasma sodium measurement (moles/volume) 137 mmol/ L 135-145 Serum or plasma potassium measurement (moles/volume) 3.8 mmol/L 3.6-5.0 Serum or plasma chloride measurement (moles/volume) 104 mmol /L 98-107 Carbon dioxide 20 mmol/L 21-32 Serum or plasma anion gap determination (moles/volume) 13 mmol/L 5-14 Serum or plasma urea nitrogen measurement (mass/volume) 14 mg/dL 7-18 Serum or plasma creatinine measurement (mass/volume) 0.95 mg /dL 0.60-1.30 Serum or plasma urea nitrogen/creatinine mass ratio 15 NRG Serum or plasma creatinine measurement with calculation of estimated glomerular filtration rate > NRG Serum or plasma glucose measurement (mass/volume) 166 mg/dL 70-105 Serum or plasma calcium measurement (mass/volume) 9.3 mg/dL 8.5-10.1 Serum or plasma total bilirubin measurement (mass/volume) 0.4 mg/dL 0.1-1.0 Serum or plasma alkaline phosphatase measurement (enzymatic activity/volume) 81 U/L 40-136 Serum or plasma aspartate aminotransferase measurement (enzymatic activity/ volume) 26 U/L 5-34 Serum or plasma alanine aminotransferase measurement (enzymatic activity/volume ) 33 U/L 0-55 Serum or plasma protein measurement (mass/volume) 6.8 g/dL 6.4-8.2 Serum or plasma albumin measurement (mass/volume) 4.4 g/dL 3.2-4.5 Serum or plasma troponin i.cardiac measurement (mass/volume) - 12/26/15 22:42 Serum or plasma troponin i.cardiac measurement (mass/volume) < ng/mL <0.30 Serum or plasma lithium measurement (moles/volume) - 12/26/15 22:42 BNP level < pg/mL <100.0 Serum or plasma C reactive protein measurement (mass/volume) - 12/26/15 23:15 Serum or plasma C reactive protein measurement (mass/volume) 0.41 mg/dL 0.00-0.50 Bacterial blood culture - 12/26/15 23:15 Bacterial blood culture NG NRG Bacterial blood culture - 12/26/15 23:15 FREE TEXT EXTERNAL SEE COMMENTS NRG QUANTITY OF GROWTH Isolated [facility] Bacterial blood culture [id number] [facility] Capillary blood glucose measurement by glucometer (mass/volume) - 12/27/15 05: 48 Capillary blood glucose measurement by glucometer (mass/volume) 158 mg/dL 70-110 Capillary blood glucose measurement by glucometer (mass/volume) - 12/27/15 10: 41 Capillary blood glucose measurement by glucometer (mass/volume) 269 mg/dL 70-110 Complete blood count (CBC) with automated white blood cell (WBC) differential - 05/12/16 13:00 Blood leukocytes automated count (number/volume) 6.7 10*3/ uL 4.3-11.0 Blood erythrocytes automated count (number/volume) 4.28 10*6 /uL 4.35-5.85 Venous blood hemoglobin measurement (mass/volume) 12.6 g/dL 13.3-17.7 Blood hematocrit (volume fraction) 39 % 40-54 Automated erythrocyte mean corpuscular volume 90 [foz_us] 80-99 Automated erythrocyte mean corpuscular hemoglobin (mass per erythrocyte) 29 pg 25-34 Automated erythrocyte mean corpuscular hemoglobin concentration measurement ( mass/volume) 33 g/dL 32-36 Automated erythrocyte distribution width ratio 12.6 % 10.0-14.5 Automated blood platelet count (count/volume) 204 10*3/uL 130-400 Automated blood platelet mean volume measurement 9.2 [foz_us ] 7.4-10.4 Automated blood neutrophils/100 leukocytes 46 % 42-75 Automated blood lymphocytes/100 leukocytes 36 % 12-44 Blood monocytes/100 leukocytes 14 % 0-12 Automated blood eosinophils/100 leukocytes 4 % 0-10 Automated blood basophils/100 leukocytes 0 % 0-10 Blood neutrophils automated count (number/volume) 3.1 10*3 1.8-7.8 Blood lymphocytes automated count (number/volume) 2.4 10*3 1.0-4.0 Blood monocytes automated count (number/volume) 0.9 10*3 0.0-1.0 Automated eosinophil count 0.2 10*3/uL 0.0-0.3 Automated blood basophil count (count/volume) 0.0 10*3/uL 0.0-0.1 Influenza virus A and B antigen detection - 05/12/16 13:00 FLU RESULT NEGATIVE FOR INFLUENZA A AND B ANTIGENS BY IA [facility] Comprehensive metabolic panel - 05/12/16 13:00 Serum or plasma sodium measurement (moles/volume) 141 mmol/ L 135-145 Serum or plasma potassium measurement (moles/volume) 4.0 mmol/L 3.6-5.0 Serum or plasma chloride measurement (moles/volume) 107 mmol /L 98-107 Carbon dioxide 22 mmol/L 21-32 Serum or plasma anion gap determination (moles/volume) 12 mmol/L 5-14 Serum or plasma urea nitrogen measurement (mass/volume) 10 mg/dL 7-18 Serum or plasma creatinine measurement (mass/volume) 0.84 mg /dL 0.60-1.30 Serum or plasma urea nitrogen/creatinine mass ratio 12 [facility] Serum or plasma creatinine measurement with calculation of estimated glomerular filtration rate > [facility] Serum or plasma glucose measurement (mass/volume) 92 mg/dL 70-105 Serum or plasma calcium measurement (mass/volume) 9.1 mg/dL 8.5-10.1 Serum or plasma total bilirubin measurement (mass/volume) 0.4 mg/dL 0.1-1.0 Serum or plasma alkaline phosphatase measurement (enzymatic activity/volume) 65 U/L 40-136 Serum or plasma aspartate aminotransferase measurement (enzymatic activity/ volume) 27 U/L 5-34 Serum or plasma alanine aminotransferase measurement (enzymatic activity/volume ) 30 U/L 0-55 Serum or plasma protein measurement (mass/volume) 6.6 g/dL 6.4-8.2 Serum or plasma albumin measurement (mass/volume) 4.3 g/dL 3.2-4.5 Encounters ACCT No. Visit Date/Time Discharge Status Pt. Type Provider Facility Loc./Unit Complaint [id number] 05/12/2016 12:50:00 2016 14:00:00 DIS Outpatient TOMMY BONILLA MD [facility] ER COUGH [id number] 04/26/2016 10:13:00 2016 11:05:00 DIS Outpatient ASIM LINARES DRY WALL APPLICATOR [facility] REHAB NECK PAIN AND GENERALIZED WEAKNESS [id number] 03/27/2016 15:46:00 2015 19:10:00 DIS Emergency DOMINGA TOLEDO [facility] ER HEAD PAIN [id number] 01/20/2016 23:43:00 2015 00:45:00 DIS Emergency SHAYY DUARTE, CEASAR Brock [facility] ER COUGHING, SORE THROAT [id number] 12/26/2015 22:39:00 2015 14:50:00 DIS Inpatient TALON DUARTE, ROBBY Smith [facility] 4TH COPD EXACERBATION [id number] 10/16/2015 01:13:00 2015 03:12:00 DIS Emergency ROBBY LEWIS DO [facility] ER BRONCHITIS [id number] 05/26/2015 21:03:00 2015 13:32:00 DIS Inpatient MARSHAL SANDERS DO [facility] ICU CHEST PAIN [id number] 03/21/2015 17:40:00 2014 19:14:00 DIS Emergency NELY MCCABE MD [facility] ER COUGH,CONGESTION [id number] 02/24/2015 10:04:00 2014 11:26:00 DIS Emergency NIEVES ALVARADO MD [facility] ER COUGH/CHEST CONGESTION [id number] 02/17/2015 15:15:00 2014 23:59:59 CLS Outpatient ORESTES EWING MD [facility] RT COPD [id number] 02/08/2015 09:32:00 2014 23:59:59 CLS Outpatient ORESTES EWING MD [facility] RAD PNEUMONIA [id number] 12/25/2014 21:55:00 2014 01:26:00 DIS Emergency SHAYY DUARTE, CEASAR Brock [facility] ER CONGESTION [id number] 12/07/2014 12:22:00 2014 23:59:59 CLS Outpatient ORESTES EWING MD [facility] RAD CHRONIC LUMBAR PAIN, [id number] 09/02/2014 09:12:00 2014 10:55:00 DIS Emergency BOZENA WERNER APRN [facility] ER COUGH [id number] 03/01/2014 08:12:00 2013 23:59:59 CLS Outpatient LELAND DUARTE FACC, CARLOS ANGEL CCDS [facility] CARD CHEST DISCOMFORT, HTN,HLP [id number] 01/15/2014 09:24:00 2013 11:33:00 DIS Emergency NELY MCCABE MD [facility] ER NOSE BLEED [id number] 11/08/2013 07:59:00 2013 23:59:59 CLS Outpatient AYLIN SANTACRUZ MD [facility] REHAB ARTHRITIS PAIGE KNEES [id number] 07/28/2013 01:14:00 2013 02:48:00 DIS Emergency NIEVES ALVARADO MD [facility] ER COUGHING [id number] 04/21/2013 01:15:00 2013 04:07:00 DIS Emergency SHAYY DUARTE, CEASAR Brock [facility] ER COUGH,CHEST HURTS [id number] 01/22/2013 09:02:00 2012 23:59:59 CLS Outpatient JUVENAL CLEANING [facility] LAB HYPERTENSION,HYPERLIPIDEMIA, STATIN [place] [id number] 09/18/2012 09:01:00 2012 23:59:59 CLS Outpatient JUVENAL CLEANING [facility] LAB HYPERLIPADEMIA,HYPERTENSION [id number] 03/04/2016 05:48:00 ACT Outpatient SUKI HERNANDEZ MD [facility] PREOP HISTORY POLYPS;REFLUX [id number] 05/31/2015 11:38:00 ACT Outpatient SABRINA MARKS DO [facility] RT COPD [id number] 05/10/2015 11:15:00 ACT Outpatient SABRINA MARKS DO [facility] RAD COPD,DYSPNEA [id number] 03/28/2015 11:18:00 ACT Outpatient NATHANIEL JETT APRN [facility] LAB HEMOPTYSIS [id number] 05/20/2014 09:13:00 Document Registration [id number] 05/20/2012 08:16:00 Document Registration [id number] 03/30/2012 09:19:00 Document Registration [id number] 11/21/2011 08:31:00 Document Registration [id number] 09/24/2011 08:32:00 Document Registration [id number] 05/27/2011 08:59:00 Document Registration [id number] 04/19/2011 04:28:00 Document Registration [id number] 04/18/2011 21:37:00 Document Registration [id number] 04/06/2011 23:50:00 Document Registration [id number] 03/25/2011 23:56:00 Document Registration [id number] 03/25/2011 18:29:00 Document Registration [id number] 02/23/2011 00:49:00 Document Registration [id number] 01/31/2011 08:03:00 Document Registration [id number] 01/28/2011 01:57:00 Document Registration [id number] 10/15/2010 09:20:00 Document Registration [id number] 10/06/2010 00:41:00 Document Registration [id number] 09/17/2010 00:40:00 Document Registration [id number] 03/22/2010 07:50:00 Document Registration [id number] 03/15/2010 14:00:00 Document Registration [id number] 02/25/2010 11:47:00 Document Registration [id number] 10/08/2009 23:41:00 Document Registration [id number] 04/24/2007 14:30:00 Document Registration
[2016-05-20] MEDS ORDERED: methylPREDNISolone 125 MG (Solu-MEDROL) VIAL IM ONE (01:15)
--- NOTE | 2016-05-20 01:23 | ED General ---
General Chief Complaint: Cough/Cold/Flu Symptoms Stated Complaint: COUGH MUCUS Nursing Triage Note: patient reports cough and SOA, patient reports was evaluated here previously for same complaint and hasn't improved Nursing Sepsis Screen: No Definite Risk Source of Information: Patient, Old Records Exam Limitations: No Limitations History of Present Illness Time Seen by Provider: 23:49 Initial Comments This 80-year-old gentleman presents to the emergency room with complaints of dyspnea at night while trying to sleep and coughing up white phlegm. He has slept sitting up for the past 3 nights. He denies fever but has had some sweats. He was seen about a week ago and was diagnosed with bronchitis. He was prescribed Tessalon Perles and Omnicef. He continues to have the same problems despite treatment. He uses nebulizer treatments at home and has problems despite those. Patient and report that steroid use in the past has helped with these symptoms. Review of his chart demonstrates an echocardiogram one year ago showing an ejection fraction of 60 percent. Vital signs are stable. Allergies and Home Medications Allergies Coded Allergies: aspirin (Unverified Allergy, Unknown, 05/20/14) codeine (Verified Allergy, Unknown, 04/07/06) hydrocodone (Unverified Allergy, Unknown, 10/16/15) Uncoded Allergies: SSRI (Allergy, Unknown, 05/20/14) TCA (Allergy, Unknown, 05/20/14) Home Medications Acetaminophen/Diphenhydramine 1 Each Tablet Unknown Dose PO (Reported) Albuterol Sulfate 2.5 Mg/3 Ml Vial.neb 2.5 MG IH Q4H PRN PRN SHORTNESS OF BREATH (Reported) Amlodipine Besylate 10 Mg Tablet 10 MG PO DAILY (Reported) Atorvastatin Calcium 40 Mg Tablet 40 MG PO HS (Reported) Benazepril HCl 20 Mg Tablet 20 MG PO DAILY (Reported) Benzonatate 100 Mg Capsule #20 100 MG PO twice a day Prescribed by: TOMMY BONILLA on 05/12/16 1353 Cefdinir 300 Mg Capsule #14 300 MG PO twice a day Prescribed by: TOMMY BONILLA on 05/12/16 1353 Chlorphen/Dm/Acetaminophen/GG 1 Each Tb.cp.seq 1-2 TAB PO Q6H PRN PRN DRAINAGE ( Reported) Clonazepam 1 Mg Tablet 1 MG PO Q8H PRN PRN ANXIETY (Reported) Cyanocobalamin 50 Mcg Lozenge 500 MCG PO DAILY (Reported) Doxazosin Mesylate 4 Mg Tablet 4 MG PO HS (Reported) Fish Oil/Dha/Epa 1 Each Capsule 1 EACH PO DAILY (Reported) Glipizide 5 Mg Tablet 5 MG PO DAILY (Reported) Levocetirizine Dihydrochloride 5 Mg Tablet 5 MG PO HS (Reported) Metformin HCl 500 Mg Tablet 250 MG PO BID WITH MEALS (Reported) TAKES 1/2 (500MG) TABLET Montelukast Sodium 10 Mg Tablet 10 MG PO HS (Reported) Montelukast Sodium 10 Mg Tablet 10 MG PO HS (Reported) Oxybutynin Chloride 10 Mg Tab.er.24 10 MG PO DAILY (Reported) Pantoprazole Sodium 40 Mg Tablet.dr 40 MG PO HS (Reported) Prednisone 20 Mg Tab #4 20 MG PO DAILY Prescribed by: CEASAR CASTILLO on 05/20/16 0124 Pregabalin 100 Mg Capsule 100 MG PO BID (Reported) Ranitidine HCl 150 Mg Tablet 150 MG PO BID (Reported) Rivastigmine 4.6 Mg Patch 4.6 MG TD DAILY (Reported) Sucralfate 1 Gm Tablet 1 GM PO QID (Reported) Tiotropium [place] 1 Inh Aerp 1 CAP INH HS (Reported) Tramadol HCl 50 Mg Tablet 50 MG PO BID PRN PRN PAIN (Reported) Triamcinolone Acetonide 15 Gm Cream..g. TOP BID (Reported) 0.1% APPLY TO FEET Vilazodone Hydrochloride 10 Mg Tablet 10 MG PO HS (Reported) Constitutional: see HPI EENTM: other (chronic disfigurement of the right high) Respiratory: see HPI Cardiovascular: no symptoms reported Gastrointestinal: no symptoms reported Genitourinary: no symptoms reported Musculoskeletal: no symptoms reported Skin: no symptoms reported Psychiatric/Neurological: No Symptoms Reported Past Seqzobk-Pqgvkl-Rlrlgl Hx Patient Social History Alcohol Use: Denies Use Recreational Drug Use: No Type Used: Cigarettes Former Smoker/When Quit: May 26, 1959 2nd Hand Smoke Exposure: No Recent Foreign Travel: No Contact w/Someone Who Travel: No Recent Infectious Disease Expo: No Recent Hopitalizations: No Immunizations Up To Date Tetanus Booster (TDap): Unknown Date of Pneumonia Vaccine: Jan 23, 2015 Date of Influenza Vaccine: Dec 20, 2015 Seasonal Allergies Seasonal Allergies: No Surgeries HX Surgeries: Yes Surgeries: Abdominal, Adenoidectomy, Eye Surgery, Prostatectomy, Tonsillectomy Respiratory Hx Respiratory Disorders: Yes (wears O2 at noc at 2 L/m by nasal cannula) Respiratory Disorders: Asthma, Pneumonia, Chronic Bronchitis, COPD Cardiovascular Hx Cardiac Disorders: Yes Cardiac Disorders: Chronic Edema/Swelling, High Cholesterol, Hypertension Neurological Hx Neurological Disorders: Yes Neurological Disorders: Dementia Reproductive System Hx Reproductive Disorders: No Sexually Transmitted Disease: No Genitourinary Hx Genitourinary Disorders: Yes (PROSTATE CANCER > 10 YEARS AGO) Genitourinary Disorders: Prostate Problems Gastrointestinal Hx Gastrointestinal Disorders: Yes Gastrointestinal Disorders: Abdominal Hernia, Gastroesophageal Reflux, Polyps, Hiatal Hernia Musculoskeletal Hx Musculoskeletal Disorders: Yes ("Lyrica for arthritis") Musculoskeletal Disorders: Arthritis Endocrine Hx Endocrine Disorders: Yes Endocrine Disorders: Diabetes, Non-Insulin dep HEENT HX ENT Disorders: Yes (tear duct dysfunction, vision deficit/disfigurement of right eye, sinusitis) Cancer Hx Cancer: Yes (PROSTATE CANCER-S/P SURGERY ONLY;BASAL CELL CA R EYELID) Cancer: Prostate, Skin Psychosocial Hx Psychiatric Problems: Yes Behavioral Health Disorders: Anxiety, Depression Integumentary HX Skin/Integumentary Disorder: Yes (SKIN CANCER) Blood Transfusions Hx Blood Disorders: No Adverse Reaction to a Blood Tr: No Family Medical History Significant Family History: No Pertinent Family Hx Family Medial History: FH: breast cancer G8 SISTER Physical Exam Vital Signs Vital Sign - Last 12Hours Capillary Refill : Less Than 3 Seconds General Appearance: No Apparent Distress WD/WN Eyes: Right Eye Other (chronic disfigurement of the right eye) HEENT: Pharynx Normal Neck: Normal Inspection Respiratory: Lungs Clear Normal Breath Sounds No Accessory Muscle Use No Respiratory Distress Cardiovascular: Regular Rate, Rhythm No Murmur Extremity: Pedal Edema (equal bilaterally) Neurologic/Psychiatric: Alert Oriented x3 No Motor/Sensory Deficits Normal 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 Norm as Tested Progress/Results/Core Measures Results/Orders Micro Results Microbiology 05/19/16 Influenza Types A,B Antigen ([facility]) - Final, Complete My Orders Orders-CEASAR LUCAS MD Influenza A And B Antigens (05/19/16 23:48) Chest 1 View, Ap/Pa Only (05/20/16 00:01) Methylprednisolone Sod Succ (Solu-Medrol (05/20/16 01:15) Medications Given in ED Current Medications Medications Dose Ordered Sig/Bernice Route Start Time Stop Time Status Last Admin Dose Admin Methylprednisolone Sodium Succinate 125 mg ONCE ONCE IM 05/20/16 01:15 05/20/16 01:16 DC 05/20/16 01:19 125 MG Vital Signs/I&O Vital Sign - Last 12Hours 05/19/16 05/19/16 05/20/16 23:52 23:52 01:24 Temp 98.1 Pulse 81 74 Resp 18 18 B/P 139/78 Pulse Ox 95 95 O2 Delivery Nasal Cannula Nasal Cannula O2 Flow Rate 2 2 2 Blood Pressure Mean: 98 Progress Note : Progress Note Patient received a Solu-Medrol injection. Follow-up with his primary care provider was encouraged. Diagnostic Imaging Diagonstic Imaging: Xray Plain Films/CT/US/NM/MRI: chest Comments Chest x-ray viewed by me. Report not available. Compared with prior. No adverse interval changes. Departure Impression Impression: Primary Impression: Bronchitis Additional Impression: Nocturnal dyspnea Disposition: HOME, SELF-CARE Condition: Improved Departure-Patient Inst. Decision time for Depature: 01:00 Referrals: ASIM LINARES (PCP/Family) Primary Care Physician Patient Instructions: Acute Bronchitis, Adult (DC) Add. Discharge Instructions: Contact your doctor tomorrow to schedule a follow-up appointment. Use your steroids as prescribed. Use a nebulizer treatment every night before bed. Return to the ER if symptoms become severe again. All discharge instructions reviewed with patient and/or family. Voiced understanding. Scripts Prednisone 20 Mg Tab20 Mg PO DAILY #4 TAB Prov:CEASAR LUCAS MD 05/20/16 CEASAR LUCAS MD May 20, 2016 01:23
[2016-05-20 01:24] VITALS: BP 126/76
[2016-05-20] MEDS ORDERED: PRD20T PO (01:24)
--- NOTE | 2016-05-20 06:30 | Diagnostic Imaging Report ---
Indication: Cough and dyspnea. Discussion: Single portable upright view of the chest was obtained, comparison 05/12/2016. Subsegmental atelectasis is noted within the bilateral lung bases. Underlying COPD is stable. Stable normal heart size. Suspect small hiatal hernia. No focal consolidation, pleural fluid, or pneumothorax. No acute osseous abnormality. Impression: 1. No acute cardiopulmonary process. Dictated by: Dictated on workstation # [id number]
== END 2016-05-20 01:25 | disposition home or self-care (01) ==
LOC: EDUNIT# 23:46 → ER 23:48
DX: J44.0 Chronic obstructive pulmonary disease with (acute) lower respiratory infection (principal); R06.00 Dyspnea, unspecified; I10 Essential (primary) hypertension; E11.9 Type 2 diabetes mellitus without complications; Z79.84 Long term (current) use of oral hypoglycemic drugs; Z79.899 Other long term (current) drug therapy
CPT/HCPCS: 71010; 87804; 96372; 99282

== ENCOUNTER → 2016-06-03 | Outpatient (CLI) | payer MEDICARE, MEDICAID ==
--- OUTSIDE RECORDS SUMMARY | 2016-06-03 05:47 | XMS REPORT | Continuity of Care Document ---
Author Author [facility] Organization [facility] [address] Address Unknown Phone Unavailable Allergies Active Description Code Type Severity Reaction Onset Reported/Identified Relationship to Patient Clinical Status Yes codeine [id number] Drug Allergy Unknown N/A 04/07/2006 Yes aspirin [id number] Drug Allergy Unknown N/A 05/20/2014 Yes SSRI SSRI Unknown N/A 05/20/2014 Yes TCA TCA Unknown N/A 05/20/2014 Yes hydrocodone [id number] Drug Allergy Unknown N/A 10/16/2015 Medications Problems [...] FACP CCDS Ot 401.9 04/05/2014 [facility], ALI FACP CCDS Ot 786.59 04/05/2014 [facility], ALI FACP CCDS Ot V58.69 05/20/2014 Ot 473.9 CHRONIC SINUSITIS NOS 05/20/2014 Ot 786.2 COUGH 09/02/2014 BOZENA WERNER SOC ANALYST Ot 466.0 ACUTE BRONCHITIS 09/02/2014 BOZENA WERNER SOC ANALYST Ot 786.2 COUGH 12/26/2014 SHYAY DUARTE, CEASAR Brock Ot 491.21 OBSTR CHRONIC [...] 401.9 03/28/2015 Ot V58.69 03/28/2015 BAIMAJUVENAL L CERTIFIED WELLNESS PROGRAM MANAGER Ot 272.4 03/28/2015 BAIMAJUVENAL L CERTIFIED WELLNESS PROGRAM MANAGER Ot 401.9 03/28/2015 BAIMA JUVENAL L CERTIFIED WELLNESS PROGRAM MANAGER Ot 272.4 03/28/2015 BAIMA JUVENAL L CERTIFIED WELLNESS PROGRAM MANAGER Ot 401.9 03/28/2015 BAIMA JUVENAL L CERTIFIED WELLNESS PROGRAM MANAGER Ot V58.69 03/28/2015 LELAND DUARTE FACC, ALI [...] ORESTES Chavez Ot J18.9 04/20/2015 NATHANIEL JETT SOC ANALYST Ot R04.2 04/26/2015 NATHANIEL JETT OMER Ot [...] SABRINA MARKS DO Ot E66.9 05/31/2015 SABRINA MARKS DO Ot J44.9 05/31/2015 SABRINA MARKS DO [...] OTH MED,LT,CURRENT USE 01/01/2016 BAIMA, JUVENAL L CERTIFIED WELLNESS PROGRAM MANAGER Ot 272.4 HYPERLIPIDEMIA NEC/NOS 01/01/2016 BAIMA, JUVENAL L CERTIFIED WELLNESS PROGRAM MANAGER Ot 401.9 HYPERTENSION NOS 01/01/2016 BAIMA, JUVENAL L CERTIFIED WELLNESS PROGRAM MANAGER Ot 272.4 HYPERLIPIDEMIA NEC/NOS 01/01/2016 BAIMA, JUVENAL L CERTIFIED WELLNESS PROGRAM MANAGER Ot 401.9 HYPERTENSION NOS 01/01/2016 BAIMA, JUVENAL L CERTIFIED WELLNESS PROGRAM MANAGER Ot V58.69 OTH MED,LT,CURRENT USE 01/01/2016 LELAND [...] Chavez Ot 724.2 LUMBAGO 01/01/2016 KAYLIN DUARTE, ORESTES Chavez Ot 728.87 MUSCLE WEAKNESS (GENERALIZED) 01/01/2016 [...] COUGH 01/21/2016 CEASAR LUCAS MD Ot Z79.84 SKILLED NURSING (CURRENT) USE OF ORAL HYPOGLYC 01/21/2016 CEASAR LUCAS MD Ot Z79.899 OTHER SKILLED NURSING (CURRENT) DRUG THERAPY 01/22/2016 CEASAR LUCAS MD Ot E11.9 TYPE 2 DIABETES MELLITUS WITHOUT COMPLIC 01/22/2016 CEASAR LUCAS MD Ot I10 ESSENTIAL (PRIMARY) HYPERTENSION 01/22/2016 CEASAR LUCAS MD Ot J02.9 ACUTE PHARYNGITIS, UNSPECIFIED 01/22/2016 CEASAR LUCAS MD Ot J44.1 CHRONIC OBSTRUCTIVE PULMONARY DISEASE W 01/22/2016 CEASAR LUCAS MD Ot R05 COUGH 01/22/2016 CEASAR LUCAS MD Ot Z79.84 SKILLED NURSING (CURRENT) USE OF ORAL HYPOGLYC 01/22/2016 CEASAR LUCAS MD Ot Z79.899 OTHER SKILLED NURSING (CURRENT) DRUG THERAPY 02/29/2016 Ot 300.00 02/29/2016 [...] DOMINGA TOLEDOP Ot Y92.[address] 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 ORAL HYPOGLYC 03/27/2016 PARIS, DOMINGA CERTIFIED WELLNESS PROGRAM MANAGER Ot Z79.899 OTHER SWIMMING POOL SALESPERSON (CURRENT) DRUG THERAPY 03/27/2016 PARIS, DOMINGA CERTIFIED WELLNESS PROGRAM MANAGER Ot Z87.891 PERSONAL HISTORY OF NICOTINE DEPENDENCE 03/28/2016 PARIS, DOMINGA CERTIFIED WELLNESS PROGRAM MANAGER Ot E11.9 TYPE 2 DIABETES MELLITUS WITHOUT COMPLIC 03/28/2016 PARIS, DOMINGA CERTIFIED WELLNESS PROGRAM MANAGER Ot I10 ESSENTIAL (PRIMARY) HYPERTENSION 03/28/2016 PARIS, DOMINGA CERTIFIED WELLNESS PROGRAM MANAGER Ot S00.12XA CONTUSION OF LEFT EYELID AND PERIOCULAR 03/28/2016 [place] DOMINGA CERTIFIED WELLNESS PROGRAM MANAGER Ot S09.90XA UNSPECIFIED INJURY OF HEAD, INITIAL ENCO 03/28/2016 DOMINGA TOLEDO CERTIFIED WELLNESS PROGRAM MANAGER Ot W20.8XXA OTH CAUSE OF STRIKE BY THROWN, PROJECTED 03/28/2016 DOMINGA TOLEDOP Ot Y92.[address] [facility] [address] IN 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) USE OF ORAL HYPOGLYC 03/28/2016 PARIS, DOMINGA CERTIFIED WELLNESS PROGRAM MANAGER Ot Z79.899 OTHER SKILLED NURSING (CURRENT) DRUG THERAPY 03/28/2016 PARIS, DOMINGA CERTIFIED WELLNESS PROGRAM MANAGER Ot Z87.891 PERSONAL HISTORY OF NICOTINE DEPENDENCE 03/29/2016 PARIS, DOMINGA CERTIFIED WELLNESS PROGRAM MANAGER Ot E11.9 TYPE 2 DIABETES MELLITUS WITHOUT COMPLIC 03/29/2016 PARIS, DOMINGA CERTIFIED WELLNESS PROGRAM MANAGER Ot I10 ESSENTIAL (PRIMARY) HYPERTENSION 03/29/2016 PARIS, DOMINGA CERTIFIED WELLNESS PROGRAM MANAGER Ot S00.12XA CONTUSION OF LEFT EYELID AND PERIOCULAR 03/29/2016 [place] DOMINGA CERTIFIED WELLNESS PROGRAM MANAGER Ot S09.90XA UNSPECIFIED INJURY OF HEAD, INITIAL ENCO 03/29/2016 PARIS, DOMINGA CERTIFIED WELLNESS PROGRAM MANAGER Ot W20.8XXA OTH CAUSE OF STRIKE BY THROWN, PROJECTED 03/29/2016 DOMINGA TOLEDOP Ot Y92.[address] [facility] [address] IN [facility] 03/29/2016 DOMINGA TOLEDOP Ot Y99.8 OTHER EXTERNAL CAUSE STATUS 03/29/2016 DOMINGA TOLEDOP Ot Z79.84 SKILLED NURSING (CURRENT) USE OF ORAL HYPOGLYC 03/29/2016 DOMINGA TOLEDO CERTIFIED WELLNESS PROGRAM MANAGER Ot Z79.899 OTHER SWIMMING POOL SALESPERSON (CURRENT) DRUG THERAPY 03/29/2016 DOMINGA TOLEDO CERTIFIED WELLNESS PROGRAM MANAGER Ot Z87.891 PERSONAL HISTORY OF NICOTINE DEPENDENCE 03/31/2016 Ot 300.00 03/31/2016 Ot V58.69 03/31/2016 PARIS, DOMINGA CERTIFIED WELLNESS PROGRAM MANAGER Ot E11.9 TYPE 2 DIABETES MELLITUS WITHOUT COMPLIC 03/31/2016 DOMINGA TOLEDO CERTIFIED WELLNESS PROGRAM MANAGER Ot I10 ESSENTIAL (PRIMARY) HYPERTENSION 03/31/2016 [place] DOMINGA MCCORMICKP Ot S00.12XA CONTUSION OF LEFT EYELID AND PERIOCULAR 03/31/2016 DOMINGA TOLEDOP Ot S09.90XA UNSPECIFIED INJURY OF HEAD, INITIAL ENCO 03/31/2016 DOMINGA TOLEDOP Ot W20.8XXA OTH CAUSE OF STRIKE BY THROWN, PROJECTED 03/31/2016 DOMINGA TOLEDOP Ot Y92.[address] [facility] [address] IN [facility] 03/31/2016 DOMINGA TOLEDOP Ot Y99.8 OTHER EXTERNAL CAUSE STATUS 03/31/2016 DOMINGA TOLEDOP Ot Z79.84 SKILLED NURSING (CURRENT) USE OF ORAL HYPOGLYC 03/31/2016 DOMINGA TOLEDO CERTIFIED WELLNESS PROGRAM MANAGER Ot Z79.899 OTHER SWIMMING POOL SALESPERSON (CURRENT) DRUG THERAPY 03/31/2016 DOMINGA TOLEDO CERTIFIED WELLNESS PROGRAM MANAGER Ot Z87.891 PERSONAL HISTORY OF NICOTINE DEPENDENCE 04/24/2016 MADLASIM CERTIFIED WELLNESS PROGRAM MANAGER Ot M54.2 CERVICALGIA 04/24/2016 ASIM LINARES CERTIFIED WELLNESS PROGRAM MANAGER Ot R53.1 WEAKNESS 05/01/2016 ASIM LINARES CERTIFIED WELLNESS PROGRAM MANAGER Ot M54.2 CERVICALGIA 05/01/2016 ASIM LINARES CERTIFIED WELLNESS PROGRAM MANAGER Ot R53.1 WEAKNESS 05/13/2016 ODTOMMY GOULD MD Ot E11.9 TYPE 2 DIABETES MELLITUS WITHOUT COMPLIC 05/13/2016 TOMMY BONILLA MD Ot I10 ESSENTIAL (PRIMARY) HYPERTENSION 05/13/2016 TOMMY BONILLA MD Ot J40 BRONCHITIS, NOT SPECIFIED ACUTE OR CH 05/13/2016 TOMMY BONILLA MD Ot J43.9 EMPHYSEMA, UNSPECIFIED 05/13/2016 TOMMY BONILLA MD Ot R05 COUGH 05/13/2016 TOMMY BONILLA MD Ot Z79.84 SWIMMING POOL SALESPERSON (CURRENT) USE OF ORAL HYPOGLYC 05/13/2016 TOMMY BONILLA MD Ot Z79.899 OTHER SWIMMING POOL SALESPERSON (CURRENT) DRUG THERAPY 05/13/2016 TOMMY BONILLA MD [...] COUGH 05/13/2016 TOMMY BONILLA MD Ot Z79.84 SWIMMING POOL SALESPERSON (CURRENT) USE OF ORAL HYPOGLYC 05/13/2016 TOMMY BONILLA MD Ot Z79.899 OTHER SWIMMING POOL SALESPERSON (CURRENT) DRUG THERAPY 05/13/2016 TOMMY BONILLA MD Ot Z87.891 PERSONAL HISTORY OF NICOTINE DEPENDENCE 05/20/2016 CEASAR LUCAS MD Ot E11.9 TYPE 2 DIABETES MELLITUS WITHOUT COMPLIC 05/20/2016 CEASAR LUCAS MD T Ot I10 ESSENTIAL (PRIMARY) HYPERTENSION 05/20/2016 CEASAR LUCAS MD Ot J44.0 CHRONIC OBSTRUCTIVE PULMON DISEASE W ACU 05/20/2016 CEASAR LUCAS MD Ot R06.00 DYSPNEA, UNSPECIFIED 05/20/2016 CEASAR LUCAS MD T Ot R06.02 SHORTNESS OF BREATH 05/20/2016 CEASAR LUCAS MD Ot Z79.84 SWIMMING POOL SALESPERSON (CURRENT) USE OF ORAL HYPOGLYC 05/20/2016 CEASAR LUCAS MD Ot Z79.899 OTHER SWIMMING POOL SALESPERSON (CURRENT) DRUG THERAPY 05/21/2016 CEASAR LUCAS MD Ot E11.9 TYPE 2 DIABETES MELLITUS WITHOUT COMPLIC 05/21/2016 CEASAR LUCAS MD Ot I10 ESSENTIAL (PRIMARY) HYPERTENSION 05/21/2016 CEASAR LUCAS MD Ot J44.0 CHRONIC OBSTRUCTIVE PULMON DISEASE W ACU 05/21/2016 CEASAR LUCAS MD Ot R06.00 DYSPNEA, UNSPECIFIED 05/21/2016 CEASAR LUCAS MD Ot R06.02 SHORTNESS OF BREATH 05/21/2016 CEASAR LUCAS MD Ot Z79.84 SWIMMING POOL SALESPERSON (CURRENT) USE OF ORAL HYPOGLYC 05/21/2016 CEASAR LUCAS MD Ot Z79.899 OTHER SKILLED NURSING (CURRENT) DRUG THERAPY 05/23/2016 CEASAR LUCAS MD Ot E11.9 TYPE 2 DIABETES MELLITUS WITHOUT COMPLIC 05/23/2016 CEASAR LUCAS MD Ot I10 ESSENTIAL (PRIMARY) HYPERTENSION 05/23/2016 CEASAR LUCAS MD Ot J44.0 CHRONIC OBSTRUCTIVE PULMON DISEASE W ACU 05/23/2016 CEASAR LUCAS MD Ot R06.00 DYSPNEA, UNSPECIFIED 05/23/2016 CEASAR LUCAS MD Ot R06.02 SHORTNESS OF BREATH 05/23/2016 CEASAR LUCAS MD Ot Z79.84 SWIMMING POOL SALESPERSON (CURRENT) USE OF ORAL HYPOGLYC 05/23/2016 CEASAR LUCAS MD Ot Z79.899 OTHER SWIMMING POOL SALESPERSON (CURRENT) DRUG THERAPY 05/29/2016 Ot 250.00 DIAB KASSANDRA WO COMPL, TYPE II OR UNSPEC TY 05/29/2016 Ot 401.9 HYPERTENSION NOS 05/29/2016 Ot 466.0 ACUTE BRONCHITIS 05/29/2016 Ot 786.59 CHEST PAIN NEC 05/29/2016 Ot V58.69 OTH MED,LT,CURRENT USE Procedures Results Test Result Range Complete blood [...] - 12/26/15 23:15 Bacterial blood culture NG NR Bacterial blood culture - 12/26/15 23:15 FREE TEXT EXTERNAL SEE COMMENTS NRG QUANTITY OF GROWTH Isolated [facility] Bacterial blood culture [id number] [facility] Capillary blood glucose measurement by [...] INFLUENZA A AND B ANTIGENS BY IA [facility] Comprehensive metabolic panel - 05/12/16 [...] or plasma urea nitrogen/creatinine mass ratio 12 NRG Serum or plasma creatinine measurement with calculation of estimated glomerular filtration rate > NRG Serum or plasma glucose measurement (mass/volume) 92 [...] plasma albumin measurement (mass/volume) 4.3 g/dL 3.2-4.5 Influenza virus A and B antigen detection - 05/19/16 23:54 FLU RESULT NEGATIVE FOR INFLUENZA A AND B ANTIGENS BY IA NRG Encounters ACCT No. Visit Date/Time Discharge Status Pt. Type Provider Facility Loc./Unit Complaint [id number] 05/19/2016 23:48:00 2016 01:25:00 DIS Emergency CEASAR LUCAS MD [facility] ER COUGH MUCUS [id number] 05/12/2016 12:50:00 2016 14:00:00 DIS Outpatient TOMMY BONILLA MD [facility] ER COUGH [id number] 04/26/2016 10:13:00 2016 11:05:00 DIS Outpatient ASIM LINARES [facility] REHAB NECK PAIN AND GENERALIZED WEAKNESS [id number] 03/27/2016 15:46:00 2015 19:10:00 DIS Emergency DOMINGA TOLEDO [facility] ER HEAD PAIN [id number] 01/20/2016 23:43:00 2015 00:45:00 DIS Emergency CEASAR LUCAS MD [facility] ER COUGHING, SORE THROAT [id number] 12/26/2015 22:39:00 2015 14:50:00 DIS Inpatient TALON MD, ROBBY Smith [facility] 4TH COPD EXACERBATION [id number] 10/16/2015 01:13:00 2015 03:12:00 DIS Emergency ROBBY LEWIS DO [facility] ER BRONCHITIS [id number] 05/26/2015 21:03:00 2015 13:32:00 DIS Inpatient MARSHAL SANDERS DO [facility] ICU CHEST PAIN [id number] 03/21/2015 17:40:00 2014 19:14:00 DIS Emergency ELIOT DUARTE, NELY Craft [facility] ER COUGH,CONGESTION [id number] 02/24/2015 10:04:00 2014 11:26:00 DIS Emergency CHRISTIANO DUARTE, NIEVES Luis [facility] ER COUGH/CHEST CONGESTION [id number] 02/17/2015 15:15:00 2014 23:59:59 CLS Outpatient ORESTES EWING MD [facility] RT COPD [id number] 02/08/2015 09:32:00 2014 23:59:59 CLS Outpatient ORESTES EWING MD [facility] RAD PNEUMONIA [id number] 12/25/2014 21:55:00 2014 01:26:00 DIS Emergency SHAYY DUARTE, CEASAR Brokc [facility] ER CONGESTION [id number] 12/07/2014 12:22:00 2014 23:59:59 CLS Outpatient ORESTES EWING MD [facility] RAD CHRONIC LUMBAR PAIN, [id number] 09/02/2014 09:12:00 2014 10:55:00 DIS Emergency BOZENA WERNER APRN [facility] ER COUGH [id number] 03/01/2014 08:12:00 2013 23:59:59 CLS Outpatient LELAND DUARTE FACC, CARLOS ANGEL CCDS [facility] CARD CHEST DISCOMFORT, HTN,HLP [id number] 01/15/2014 09:24:00 2013 11:33:00 DIS Emergency ELIOT DUARTE, NELY Craft [facility] ER NOSE BLEED [id number] 11/08/2013 07:59:00 2013 23:59:59 CLS Outpatient NOAM DUARTE, AYLIN Mcgarry [facility] REHAB ARTHRITIS PAIGE KNEES [id number] 07/28/2013 01:14:00 2013 02:48:00 DIS Emergency CHRISTIANO DUARTE, NIEVES Luis [facility] ER COUGHING [id number] 04/21/2013 01:15:00 2013 04:07:00 DIS Emergency SHAYY DUARTE, CEASAR Brock [facility] ER COUGH,CHEST HURTS [id number] 01/22/2013 09:02:00 2012 23:59:59 CLS Outpatient JUVENAL CLEANING [facility] LAB HYPERTENSION,HYPERLIPIDEMIA, STATIN [place] [id number] 09/18/2012 09:01:00 2012 23:59:59 CLS Outpatient JUVENAL CLEANING [facility] LAB HYPERLIPADEMIA,HYPERTENSION [id number] 06/03/2016 05:42:00 ACT Outpatient SUKI HERNANDEZ MD [facility] PREOP HISTORY POLYPS;REFLUX [id number] 03/04/2016 05:48:00 ACT Outpatient SUKI HERNANDEZ MD [facility] PREOP HISTORY POLYPS;REFLUX [id number] 05/31/2015 11:38:00 ACT Outpatient SABRINA MARKS DO [facility] RT COPD [id number] 05/10/2015 11:15:00 ACT Outpatient SABRINA MARKS DO [facility] RAD COPD,DYSPNEA [id number] 03/28/2015 11:18:00 ACT Outpatient NATHANIEL JETT APRN [facility] LAB HEMOPTYSIS [id number] 05/20/2014 09:13:00 Document Registration [id number] 05/20/2012 08:16:00 Document Registration [id number] 03/30/2012 09:19:00 Document Registration [id number] 11/21/2011 08:31:00 Document Registration [id number] 09/24/2011 08:32:00 Document Registration [id number] 05/27/2011 08:59:00 Document Registration [id number] 04/19/2011 04:28:00 Document Registration [id number] 04/18/2011 21:37:00 Document Registration [id number] 04/06/2011 23:50:00 Document Registration [id number] 03/25/2011 23:56:00 Document Registration [id number] 03/25/2011 18:29:00 Document Registration [id number] 02/23/2011 00:49:00 Document Registration [id number] 01/31/2011 08:03:00 Document Registration [id number] 01/28/2011 01:57:00 Document Registration [id number] 10/15/2010 09:20:00 Document Registration [id number] 10/06/2010 00:41:00 Document Registration [id number] 09/17/2010 00:40:00 Document Registration [id number] 03/22/2010 07:50:00 Document Registration [id number] 03/15/2010 14:00:00 Document Registration [id number] 02/25/2010 11:47:00 Document Registration [id number] 10/08/2009 23:41:00 Document Registration [id number] 04/24/2007 14:30:00 Document Registration
== END ==
LOC: PREOP 05:42
PROVIDERS: ATTEND Surgery Pediatric Surgery
DX: Z01.818 Encounter for other preprocedural examination (principal); Z12.11 Encounter for screening for malignant neoplasm of colon; Z86.010 Personal history of colon polyps; K21.9 Gastro-esophageal reflux disease without esophagitis

== ENCOUNTER → 2016-06-05 | Day surgery (SDC) | payer MEDICARE, MEDICAID ==
[~2016-06-05] VITALS: Ht 182.9 cm; Wt 90.7 kg
[~2016-06-05] MED LIST changes: +ACETAMINOPHEN 325 MG TABLET/CAPLET (TYLENOL) PO PRN; +FLUMAZENIL (ROMAZICON) 0.1 MG/ML 5 ML VIAL INJ PRN; +HURRICAINE EXT TUBE (BENZOCAINE) ONE; +HURRICAINE EXT TUBE (BENZOCAINE) XX PRN; +LIDOCAINE JELLY 2% (XYLOCAINE) 5 ML TUBE ONE; +MIDAZOLAM 2 MG/2 ML (VERSED) VIAL ONE; +NALOXONE 0.4 MG/ML 1 ML (NARCAN) VIAL IVP PRN; +NS IV 500 ML 500 ML IV ONE; +ONDANSETRON 4 MG/2 ML (SDV) Z0FRAN IV PRN; +fentaNYL INJECTION 100 MCG/2 ML AMP ONE; +morphine INJ 10 MG/ML 1ML (SYR OR VIAL) IV PRN
--- OUTSIDE RECORDS SUMMARY | 2016-06-05 09:15 | XMS REPORT | Continuity of Care Document ---
Author Author [facility] Organization [facility] Address Unknown Phone Unavailable Allergies Active Description Code Type Severity Reaction Onset Reported/Identified Relationship to Patient Clinical Status Yes codeine [id number] Drug Allergy Unknown N/A 04/07/2006 Yes aspirin [id number] Drug Allergy Unknown N/A 05/20/2014 Yes SSRI SSRI Unknown N/A 05/20/2014 Yes TCA TCA Unknown N/A 05/20/2014 Yes hydrocodone [id number] Drug Allergy Unknown N/A 10/16/2015 Medications Problems [...] FACP CCDS Ot 401.9 04/05/2014 LELAND DUARTE [facility], ALI FACP CCDS Ot 786.59 04/05/2014 LELAND DUARTE [facility], ALI FACP CCDS Ot V58.69 05/20/2014 Ot 473.9 CHRONIC SINUSITIS NOS 05/20/2014 Ot 786.2 COUGH 09/02/2014 BOZENA WERNER SYSTEM SPECIALIST Ot 466.0 ACUTE BRONCHITIS 09/02/2014 BOZENA WERNER SYSTEM SPECIALIST Ot 786.2 COUGH 12/26/2014 SHAYY DUARTE, CEASAR [...] 401.9 03/28/2015 Ot V58.69 03/28/2015 BAIMAJUVENAL L PIPELINES LABORER Ot 272.4 03/28/2015 BAIMAJUVENAL L PIPELINES LABORER Ot 401.9 03/28/2015 BAIMA JUVENAL L PIPELINES LABORER Ot 272.4 03/28/2015 BAIMA JUVENAL L PIPELINES LABORER Ot 401.9 03/28/2015 BAIMA JUVENAL L PIPELINES LABORER Ot V58.69 03/28/2015 LELAND DUARTE FACC, ALI [...] ORESTES Chavez Ot J18.9 04/20/2015 NATHANIEL JETT SYSTEM SPECIALIST Ot R04.2 04/26/2015 NATHANIEL JETT OMER Ot [...] SABRINA MARKS DO Ot J44.9 05/31/2015 SABRINA MRAKS DO Ot Z85.828 06/12/2015 SABRINA MARKS DO [...] OTH MED,LT,CURRENT USE 01/01/2016 BAIMA, JUVENAL L PIPELINES LABORER Ot 272.4 HYPERLIPIDEMIA NEC/NOS 01/01/2016 BAIMA, JUVENAL L PIPELINES LABORER Ot 401.9 HYPERTENSION NOS 01/01/2016 BAIMA, JUVENAL L PIPELINES LABORER Ot 272.4 HYPERLIPIDEMIA NEC/NOS 01/01/2016 BAIMA, JUVENAL L PIPELINES LABORER Ot 401.9 HYPERTENSION NOS 01/01/2016 BAIMA, JUVENAL L PIPELINES LABORER Ot V58.69 OTH MED,LT,CURRENT USE 01/01/2016 LELAND [...] COUGH 01/21/2016 CEASAR LUCAS MD Ot Z79.84 LONGTERM (CURRENT) USE OF ORAL HYPOGLYC 01/21/2016 CEASAR LUCAS MD Ot Z79.899 OTHER LONGTERM (CURRENT) DRUG THERAPY 01/22/2016 CEASAR LUCAS MD Ot E11.9 TYPE 2 DIABETES MELLITUS WITHOUT COMPLIC 01/22/2016 CEASAR LUCAS MD Ot I10 ESSENTIAL (PRIMARY) HYPERTENSION 01/22/2016 CEASAR LUCAS MD Ot J02.9 ACUTE PHARYNGITIS, UNSPECIFIED 01/22/2016 CEASAR LUCAS MD Ot J44.1 CHRONIC OBSTRUCTIVE PULMONARY DISEASE W 01/22/2016 CEASAR LUCAS MD Ot R05 COUGH 01/22/2016 CEASAR LUCAS MD Ot Z79.84 LONGTERM (CURRENT) USE OF ORAL HYPOGLYC 01/22/2016 CEASAR LUCAS MD Ot Z79.899 OTHER LONGTERM (CURRENT) DRUG THERAPY 02/29/2016 Ot 300.00 02/29/2016 [...] DOMINGA TOLEDOP Ot Y92.[address] IN [facility] 03/27/2016 DOMINGA TOLEDOP Ot Y99.8 OTHER EXTERNAL CAUSE STATUS 03/27/2016 DOMINGA TOLEDOP Ot Z79.84 OVERCASTER (CURRENT) USE OF ORAL HYPOGLYC 03/27/2016 PARIS, DOMINGA PIPELINES LABORER Ot Z79.899 OTHER [place]CASTER (CURRENT) DRUG THERAPY 03/27/2016 PARIS, DOMINGA PIPELINES LABORER Ot Z87.891 PERSONAL HISTORY OF NICOTINE DEPENDENCE 03/28/2016 PARIS, DOMINGA PIPELINES LABORER Ot E11.9 TYPE 2 DIABETES MELLITUS WITHOUT COMPLIC 03/28/2016 PARIS, DOMINGA PIPELINES LABORER Ot I10 ESSENTIAL (PRIMARY) HYPERTENSION 03/28/2016 PARIS, DOMINGA PIPELINES LABORER Ot S00.12XA CONTUSION OF LEFT EYELID AND PERIOCULAR 03/28/2016 PARIS DOMINGA PIPELINES LABORER Ot S09.90XA UNSPECIFIED INJURY OF HEAD, INITIAL ENCO 03/28/2016 DOMINGA TOLEDO PIPELINES LABORER Ot W20.8XXA OTH CAUSE OF STRIKE BY THROWN, PROJECTED 03/28/2016 DOMINGA TOLEDOP Ot Y92.[address] [facility] [address] IN [facility] 03/28/2016 DOMINGA TOLEDOP Ot Y99.8 OTHER EXTERNAL CAUSE STATUS 03/28/2016 DOMINGA TOLEDO PIPELINES LABORER Ot Z79.84 OVERCASTER (CURRENT) USE OF ORAL HYPOGLYC 03/28/2016 PARIS, DOMINGA PIPELINES LABORER Ot Z79.899 OTHER LONGTERM (CURRENT) DRUG THERAPY 03/28/2016 PARIS, DOMINGA PIPELINES LABORER Ot Z87.891 PERSONAL HISTORY OF NICOTINE DEPENDENCE 03/29/2016 PARIS, DOMINGA PIPELINES LABORER Ot E11.9 TYPE 2 DIABETES MELLITUS WITHOUT COMPLIC 03/29/2016 PARIS, DOMINGA PIPELINES LABORER Ot I10 ESSENTIAL (PRIMARY) HYPERTENSION 03/29/2016 PARIS, DOMINGA PIPELINES LABORER Ot S00.12XA CONTUSION OF LEFT EYELID AND PERIOCULAR 03/29/2016 PARIS DOMINGA PIPELINES LABORER Ot S09.90XA UNSPECIFIED INJURY OF HEAD, INITIAL ENCO 03/29/2016 PARIS, DOMINGA PIPELINES LABORER Ot W20.8XXA OTH CAUSE OF STRIKE BY THROWN, PROJECTED 03/29/2016 DOMINGA TOLEDOP Ot Y92.[address] [facility] [address] IN [facility] 03/29/2016 DOMINGA TOLEDOP Ot Y99.8 OTHER EXTERNAL CAUSE STATUS 03/29/2016 DOMINGA TOLEDOP Ot Z79.84 LONGTERM (CURRENT) USE OF ORAL HYPOGLYC 03/29/2016 DOMINGA TOLEDO PIPELINES LABORER Ot Z79.899 OTHER OVERCASTER (CURRENT) DRUG THERAPY 03/29/2016 DOMINGA TOLEDO PIPELINES LABORER Ot Z87.891 PERSONAL HISTORY OF NICOTINE DEPENDENCE 03/31/2016 Ot 300.00 03/31/2016 Ot V58.69 03/31/2016 PARIS, DOMINGA PIPELINES LABORER Ot E11.9 TYPE 2 DIABETES MELLITUS WITHOUT COMPLIC 03/31/2016 DOMINGA TOLEDO PIPELINES LABORER Ot I10 ESSENTIAL (PRIMARY) HYPERTENSION 03/31/2016 PARIS DOMINGA MCCORMICKP Ot S00.12XA CONTUSION OF LEFT EYELID AND PERIOCULAR 03/31/2016 DOMINGA TOLEDOP Ot S09.90XA UNSPECIFIED INJURY OF HEAD, INITIAL ENCO 03/31/2016 DOMINGA TOLEDOP Ot W20.8XXA OTH CAUSE OF STRIKE BY THROWN, PROJECTED 03/31/2016 DOMINGA TOLEDOP Ot Y92.[address] [facility] [address] IN [facility] 03/31/2016 DOMINGA TOLEDOP Ot Y99.8 OTHER EXTERNAL CAUSE STATUS 03/31/2016 DOMINGA TOLEDOP Ot Z79.84 LONGTERM (CURRENT) USE OF ORAL HYPOGLYC 03/31/2016 DOMINGA TOLEDO PIPELINES LABORER Ot Z79.899 OTHER OVERCASTER (CURRENT) DRUG THERAPY 03/31/2016 DOMINGA TOLEDO PIPELINES LABORER Ot Z87.891 PERSONAL HISTORY OF NICOTINE DEPENDENCE 04/24/2016 MADLASIM PIPELINES LABORER Ot M54.2 CERVICALGIA 04/24/2016 ASIM LINARES PIPELINES LABORER Ot R53.1 WEAKNESS 05/01/2016 ASIM LINARES PIPELINES LABORER Ot M54.2 CERVICALGIA 05/01/2016 ASIM LINARES PIPELINES LABORER Ot R53.1 WEAKNESS 05/13/2016 ODTOMMY GOULD MD Ot E11.9 TYPE 2 DIABETES MELLITUS WITHOUT COMPLIC 05/13/2016 TOMMY BONILLA MD Ot I10 ESSENTIAL (PRIMARY) HYPERTENSION 05/13/2016 TOMMY BONILLA MD Ot J40 BRONCHITIS, NOT SPECIFIED ACUTE OR CH 05/13/2016 TOMMY BONILLA MD Ot J43.9 EMPHYSEMA, UNSPECIFIED 05/13/2016 TOMMY BONILLA MD Ot R05 COUGH 05/13/2016 TOMMY BONILLA MD Ot Z79.84 OVERCASTER (CURRENT) USE OF ORAL HYPOGLYC 05/13/2016 TOMMY BONILLA MD Ot Z79.899 OTHER OVERCASTER (CURRENT) DRUG THERAPY 05/13/2016 TOMMY BONILLA MD [...] COUGH 05/13/2016 TOMMY BONILLA MD Ot Z79.84 [place]CASTER (CURRENT) USE OF ORAL HYPOGLYC 05/13/2016 TOMMY BONILLA MD Ot Z79.899 OTHER [place]STER (CURRENT) DRUG THERAPY 05/13/2016 TOMMY BONILLA MD [...] BREATH 05/20/2016 CEASAR LUCAS MD Ot Z79.84 [place]STER (CURRENT) USE OF ORAL HYPOGLYC 05/20/2016 CEASAR LUCAS MD Ot Z79.899 OTHER [place]CASTER (CURRENT) DRUG THERAPY 05/21/2016 CEASAR LUCAS MD Ot E11.9 TYPE 2 DIABETES MELLITUS WITHOUT COMPLIC 05/21/2016 CEASAR LUCAS MD Ot I10 ESSENTIAL (PRIMARY) HYPERTENSION 05/21/2016 CEASAR LUCAS MD Ot J44.0 CHRONIC OBSTRUCTIVE PULMON DISEASE W ACU 05/21/2016 CEASAR LUCAS MD Ot R06.00 DYSPNEA, UNSPECIFIED 05/21/2016 CEASAR LUCAS MD Ot R06.02 SHORTNESS OF BREATH 05/21/2016 CEASAR LUCAS MD Ot Z79.84 OVERCASTER (CURRENT) USE OF ORAL HYPOGLYC 05/21/2016 CEASAR LUCAS MD Ot Z79.899 OTHER LONGTERM (CURRENT) DRUG THERAPY 05/23/2016 CEASAR LUCAS MD Ot E11.9 TYPE 2 DIABETES MELLITUS WITHOUT COMPLIC 05/23/2016 CEASAR LUCAS MD Ot I10 ESSENTIAL (PRIMARY) HYPERTENSION 05/23/2016 CEASAR LUCAS MD Ot J44.0 CHRONIC OBSTRUCTIVE PULMON DISEASE W ACU 05/23/2016 CEASAR LUCAS MD Ot R06.00 DYSPNEA, UNSPECIFIED 05/23/2016 CEASAR LUCAS MD Ot R06.02 SHORTNESS OF BREATH 05/23/2016 CEASAR LUCAS MD Ot Z79.84 OVERCASTER (CURRENT) USE OF ORAL HYPOGLYC 05/23/2016 CEASAR LUCAS MD Ot Z79.899 OTHER OVERCASTER (CURRENT) DRUG THERAPY 05/29/2016 Ot 250.00 DIAB KASSANDRA WO COMPL, TYPE II OR UNSPEC TY 05/29/2016 Ot 401.9 HYPERTENSION NOS 05/29/2016 Ot 466.0 ACUTE BRONCHITIS 05/29/2016 Ot 786.59 CHEST PAIN NEC 05/29/2016 Ot V58.69 OTH MED,LT,CURRENT USE 06/04/2016 SUKI HERNANDEZ MD Ot K21.9 GASTRO-ESOPHAGEAL REFLUX DISEASE WITHOUT 06/04/2016 SUKI HERNANDEZ MD, Ot Z01.818 ENCOUNTER FOR OTHER PREPROCEDURAL EXAMIN 06/04/2016 SUKI HERNANDEZ MD, Ot Z12.11 ENCOUNTER FOR SCREENING FOR MALIGNANT NE 06/04/2016 SUKI HERNANDEZ MD, Ot Z86.010 PERSONAL HISTORY OF COLONIC POLYPS Procedures Results Test Result Range Complete blood [...] SEE COMMENTS NRG QUANTITY OF GROWTH Isolated [facility] Bacterial blood culture [id number] [facility] Capillary blood glucose measurement by glucometer (mass/volume) [...] FOR INFLUENZA A AND B ANTIGENS BY [facility] Comprehensive metabolic panel - 05/12/16 [...] Status Pt. Type Provider Facility Loc./Unit Complaint [id number] 05/19/2016 23:48:00 2016 01:25:00 DIS Emergency SHAYY DUARTE, CEASAR Brock [facility] ER COUGH MUCUS [id number] 05/12/2016 12:50:00 2016 14:00:00 DIS Outpatient TOMMY BONILLA MD [facility] ER COUGH [id number] 04/26/2016 10:13:00 2016 11:05:00 DIS Outpatient ASIM LINARES [facility] REHAB NECK PAIN AND GENERALIZED WEAKNESS [id number] 03/27/2016 15:46:00 2015 19:10:00 DIS Emergency DOMINGA TOLEDO [facility] ER HEAD PAIN [id number] 01/20/2016 23:43:00 2015 00:45:00 DIS Emergency CEASAR LUCAS MD [facility] ER COUGHING, SORE THROAT [id number] 12/26/2015 22:39:00 2015 14:50:00 DIS Inpatient ROBBY HANLEY MD [facility] 4TH COPD EXACERBATION [id number] 10/16/2015 01:13:00 2015 03:12:00 DIS Emergency ROBBY LEWIS DO K [facility] ER BRONCHITIS [id number] 05/26/2015 21:03:00 2015 13:32:00 DIS Inpatient TOMMY SRINIVASAN MARSHAL [facility] ICU CHEST PAIN [id number] 03/21/2015 17:40:00 2014 19:14:00 DIS Emergency NELY MCCABE MD [facility] ER COUGH,CONGESTION [id number] 02/24/2015 10:04:00 2014 11:26:00 DIS Emergency NIEVES ALVARADO MD [facility] ER COUGH/CHEST CONGESTION [id number] 02/17/2015 15:15:00 2014 23:59:59 CLS Outpatient ORESTES EWING MD [facility] RT COPD [id number] 02/08/2015 09:32:00 2014 23:59:59 CLS Outpatient ORESTES EWING MD [facility] RAD PNEUMONIA [id number] 12/25/2014 21:55:00 2014 01:26:00 DIS Emergency CEASAR LUCAS MD [facility] ER CONGESTION [id number] 12/07/2014 12:22:00 2014 23:59:59 CLS Outpatient ORESTES EWING MD [facility] RAD CHRONIC LUMBAR PAIN, [id number] 09/02/2014 09:12:00 2014 10:55:00 DIS Emergency BOZENA WERNER APRN [facility] ER COUGH [id number] 03/01/2014 08:12:00 2013 23:59:59 CLS Outpatient LELAND DUARTE FACC, CARLOS ANGEL CCDS [facility] CARD CHEST DISCOMFORT, HTN,HLP [id number] 01/15/2014 09:24:00 2013 11:33:00 DIS Emergency NELY MCCABE MD [facility] ER NOSE BLEED [id number] 11/08/2013 07:59:00 2013 23:59:59 CLS Outpatient AYLIN SANTACRUZ MD [facility] REHAB ARTHRITIS PAIGE KNEES [id number] 07/28/2013 01:14:00 2013 02:48:00 DIS Emergency CHRISTIANO DUARTE, NIEVES Luis [facility] ER COUGHING [id number] 04/21/2013 01:15:00 2013 04:07:00 DIS Emergency SHAYY DUARTE, CEASAR Brock [facility] ER COUGH,CHEST HURTS [id number] 01/22/2013 09:02:00 2012 23:59:59 CLS Outpatient JUVENAL CLEANING [facility] LAB HYPERTENSION,HYPERLIPIDEMIA, STATIN [place] [id number] 09/18/2012 09:01:00 2012 23:59:59 CLS Outpatient JUVENAL CLEANING [facility] LAB HYPERLIPADEMIA,HYPERTENSION [id number] 06/03/2016 05:42:00 ACT Outpatient SUKI HERNANDEZ MD [facility] PREOP HISTORY POLYPS;REFLUX [id number] 03/04/2016 05:48:00 ACT Outpatient SUKI HERNANDEZ MD [facility] PREOP HISTORY POLYPS;REFLUX [id number] 05/31/2015 11:38:00 ACT Outpatient SABRINA MARKS DO [facility] RT COPD [id number] 05/10/2015 11:15:00 ACT Outpatient SABRINA MARKS DO [facility] RAD COPD,DYSPNEA [id number] 03/28/2015 11:18:00 ACT Outpatient HETER, NATHANIEL Janelle TELLO [facility] LAB HEMOPTYSIS [id number] 05/20/2014 09:13:00 Document Registration [id number] 05/20/2012 08:16:00 Document Registration [id number] 03/30/2012 09:19:00 Document Registration [id number] 11/21/2011 08:31:00 Document Registration [id number] 09/24/2011 08:32:00 Document Registration [id number] 05/27/2011 08:59:00 Document Registration [id number] 04/19/2011 04:28:00 Document Registration [id number] 04/18/2011 21:37:00 Document Registration [id number] 04/06/2011 23:50:00 Document Registration [id number] 03/25/2011 23:56:00 Document Registration [id number] 03/25/2011 18:29:00 Document Registration [id number] 02/23/2011 00:49:00 Document Registration [id number] 01/31/2011 08:03:00 Document Registration [id number] 01/28/2011 01:57:00 Document Registration [id number] 10/15/2010 09:20:00 Document Registration [id number] 10/06/2010 00:41:00 Document Registration [id number] 09/17/2010 00:40:00 Document Registration [id number] 03/22/2010 07:50:00 Document Registration [id number] 03/15/2010 14:00:00 Document Registration [id number] 02/25/2010 11:47:00 Document Registration [id number] 10/08/2009 23:41:00 Document Registration [id number] 04/24/2007 14:30:00 Document Registration
--- OUTSIDE RECORDS SUMMARY | 2016-06-05 09:17 | XMS REPORT | Continuity of Care Document ---
Author Author [facility] Organization [facility] Address Unknown Phone Unavailable Allergies Active Description Code Type Severity Reaction Onset Reported/Identified Relationship to Patient Clinical Status Yes codeine [id number] Drug Allergy Unknown N/A 04/07/2006 Yes aspirin [id number] Drug Allergy Unknown N/A 05/20/2014 Yes SSRI SSRI Unknown N/A 05/20/2014 Yes TCA TCA Unknown N/A 05/20/2014 Yes hydrocodone [id number] Drug Allergy Unknown N/A 10/16/2015 Medications Problems [...] FACP CCDS Ot 401.9 04/05/2014 LELAND DUARTE [facility], ALI FACP CCDS Ot 786.59 04/05/2014 LELAND DUARTE [facility], ALI FACP CCDS Ot V58.69 05/20/2014 Ot 473.9 CHRONIC SINUSITIS NOS 05/20/2014 Ot 786.2 COUGH 09/02/2014 BOZENA WERNER DOWEL PIN MAN Ot 466.0 ACUTE BRONCHITIS 09/02/2014 BOZENA WERNER DOWEL PIN MAN Ot 786.2 COUGH 12/26/2014 SHAYY DUARTE, CEASAR [...] 401.9 03/28/2015 Ot V58.69 03/28/2015 BAIMAJUVENAL L SCHEDULER CONVEYOR Ot 272.4 03/28/2015 BAIMAJUVENAL L SCHEDULER CONVEYOR Ot 401.9 03/28/2015 BAIMA JUVENAL L SCHEDULER CONVEYOR Ot 272.4 03/28/2015 BAIMA JUVENAL L SCHEDULER CONVEYOR Ot 401.9 03/28/2015 BAIMA JUVENAL L SCHEDULER CONVEYOR Ot V58.69 03/28/2015 LELAND DUARTE FACC, ALI [...] ORESTES Chavez Ot J18.9 04/20/2015 NATHANIEL JETT DOWEL PIN MAN Ot R04.2 04/26/2015 NATHANIEL JETT OMER Ot [...] OTH MED,LT,CURRENT USE 01/01/2016 BAIMA, JUVENAL L SCHEDULER CONVEYOR Ot 272.4 HYPERLIPIDEMIA NEC/NOS 01/01/2016 BAIMA, JUVENAL L SCHEDULER CONVEYOR Ot 401.9 HYPERTENSION NOS 01/01/2016 BAIMA, JUVENAL L SCHEDULER CONVEYOR Ot 272.4 HYPERLIPIDEMIA NEC/NOS 01/01/2016 BAIMA, JUVENAL L SCHEDULER CONVEYOR Ot 401.9 HYPERTENSION NOS 01/01/2016 BAIMA, JUVENAL L SCHEDULER CONVEYOR Ot V58.69 OTH MED,LT,CURRENT USE 01/01/2016 LELAND [...] DOMINGA TOLEDOP Ot Y92.[address] IN [facility] ([facility] 03/27/2016 DOMINGA TOLEDOP Ot Y99.8 OTHER EXTERNAL CAUSE STATUS 03/27/2016 DOMINGA TOLEDOP Ot Z79.84 C WPF DEVELOPER (CURRENT) USE OF ORAL HYPOGLYC 03/27/2016 PARIS, DOMINGA SCHEDULER CONVEYOR Ot Z79.899 OTHER C WPF DEVELOPER (CURRENT) DRUG THERAPY 03/27/2016 PARIS, DOMINGA SCHEDULER CONVEYOR Ot Z87.891 PERSONAL HISTORY OF NICOTINE DEPENDENCE 03/28/2016 PARIS, DOMINGA SCHEDULER CONVEYOR Ot E11.9 TYPE 2 DIABETES MELLITUS WITHOUT COMPLIC 03/28/2016 PARIS, DOMINGA SCHEDULER CONVEYOR Ot I10 ESSENTIAL (PRIMARY) HYPERTENSION 03/28/2016 PARIS, DOMINGA SCHEDULER CONVEYOR Ot S00.12XA CONTUSION OF LEFT EYELID AND PERIOCULAR 03/28/2016 PARIS DOMINGA SCHEDULER CONVEYOR Ot S09.90XA UNSPECIFIED INJURY OF HEAD, INITIAL ENCO 03/28/2016 DOMINGA TOLEDO SCHEDULER CONVEYOR Ot W20.8XXA OTH CAUSE OF STRIKE BY THROWN, PROJECTED 03/28/2016 DOMINGA TOLEDOP Ot Y92.[address] [facility] [address] IN [facility] ([facility] 03/28/2016 DOMINGA TOLEDOP Ot Y99.8 OTHER EXTERNAL CAUSE STATUS 03/28/2016 DOMINGA TOLEDO SCHEDULER CONVEYOR Ot Z79.84 C WPF DEVELOPER (CURRENT) USE OF ORAL HYPOGLYC 03/28/2016 PARIS, DOMINGA SCHEDULER CONVEYOR Ot Z79.899 OTHER LONGTERM (CURRENT) DRUG THERAPY 03/28/2016 PARIS, DOMINGA SCHEDULER CONVEYOR Ot Z87.891 PERSONAL HISTORY OF NICOTINE DEPENDENCE 03/29/2016 PARIS, DOMINGA SCHEDULER CONVEYOR Ot E11.9 TYPE 2 DIABETES MELLITUS WITHOUT COMPLIC 03/29/2016 PARIS, DOMINGA SCHEDULER CONVEYOR Ot I10 ESSENTIAL (PRIMARY) HYPERTENSION 03/29/2016 PARIS, DOMINGA SCHEDULER CONVEYOR Ot S00.12XA CONTUSION OF LEFT EYELID AND PERIOCULAR 03/29/2016 PAR[place] DOMINGA SCHEDULER CONVEYOR Ot S09.90XA UNSPECIFIED INJURY OF HEAD, INITIAL ENCO 03/29/2016 PARIS, DOMINGA SCHEDULER CONVEYOR Ot W20.8XXA OTH CAUSE OF STRIKE BY THROWN, PROJECTED 03/29/2016 DOMINGA TOLEDOP Ot Y92.[address] [facility] [address] IN [facility] ([facility] 03/29/2016 DOMINGA TOLEDOP Ot Y99.8 OTHER EXTERNAL CAUSE STATUS 03/29/2016 DOMINGA TOLEDOP Ot Z79.84 LONGTERM (CURRENT) USE OF ORAL HYPOGLYC 03/29/2016 DOMINGA TOLEDO SCHEDULER CONVEYOR Ot Z79.899 OTHER C WPF DEVELOPER (CURRENT) DRUG THERAPY 03/29/2016 DOMINGA TOLEDO SCHEDULER CONVEYOR Ot Z87.891 PERSONAL HISTORY OF NICOTINE DEPENDENCE 03/31/2016 Ot 300.00 03/31/2016 Ot V58.69 03/31/2016 PARIS, DOMINGA SCHEDULER CONVEYOR Ot E11.9 TYPE 2 DIABETES MELLITUS WITHOUT COMPLIC 03/31/2016 DOMINGA TOLEDO SCHEDULER CONVEYOR Ot I10 ESSENTIAL (PRIMARY) HYPERTENSION 03/31/2016 PARIS DOMINGA MCCORMICKP Ot S00.12XA CONTUSION OF LEFT EYELID AND PERIOCULAR 03/31/2016 DOMINGA TOLEDOP Ot S09.90XA UNSPECIFIED INJURY OF HEAD, INITIAL ENCO 03/31/2016 DOMINGA TOLEDOP Ot W20.8XXA OTH CAUSE OF STRIKE BY THROWN, PROJECTED 03/31/2016 DOMINGA TOLEDOP Ot Y92.[address] [facility] [address] IN [facility] ([facility] 03/31/2016 DOMINGA TOLEDOP Ot Y99.8 OTHER EXTERNAL CAUSE STATUS 03/31/2016 DOMINGA TOLEDOP Ot Z79.84 LONGTERM (CURRENT) USE OF ORAL HYPOGLYC 03/31/2016 DOMINGA TOLEDO SCHEDULER CONVEYOR Ot Z79.899 OTHER C WPF DEVELOPER (CURRENT) DRUG THERAPY 03/31/2016 DOMINGA TOLEDO SCHEDULER CONVEYOR Ot Z87.891 PERSONAL HISTORY OF NICOTINE DEPENDENCE 04/24/2016 MADLASIM SCHEDULER CONVEYOR Ot M54.2 CERVICALGIA 04/24/2016 ASIM LINARES SCHEDULER CONVEYOR Ot R53.1 WEAKNESS 05/01/2016 ASIM LINARES SCHEDULER CONVEYOR Ot M54.2 CERVICALGIA 05/01/2016 ASIM LINARES SCHEDULER CONVEYOR Ot R53.1 WEAKNESS 05/13/2016 ODTOMMY GOULD MD Ot E11.9 TYPE 2 DIABETES MELLITUS WITHOUT COMPLIC 05/13/2016 TOMMY BONILLA MD Ot I10 ESSENTIAL (PRIMARY) HYPERTENSION 05/13/2016 TOMMY BONILLA MD Ot J40 BRONCHITIS, NOT SPECIFIED ACUTE OR CH 05/13/2016 TOMMY BONILLA MD Ot J43.9 EMPHYSEMA, UNSPECIFIED 05/13/2016 TOMMY BONILLA MD Ot R05 COUGH 05/13/2016 TOMMY BONILLA MD Ot Z79.84 C WPF DEVELOPER (CURRENT) USE OF ORAL HYPOGLYC 05/13/2016 TOMMY BONILLA MD Ot Z79.899 OTHER C WPF DEVELOPER (CURRENT) DRUG THERAPY 05/13/2016 TOMMY BONILLA MD [...] COUGH 05/13/2016 TOMMY BONILLA MD Ot Z79.84 C WPF DEVELOPER (CURRENT) USE OF ORAL HYPOGLYC 05/13/2016 TOMMY BONILLA MD Ot Z79.899 OTHER C WPF DEVELOPER (CURRENT) DRUG THERAPY 05/13/2016 TOMMY BONILLA MD [...] BREATH 05/20/2016 CEASAR LUCAS MD Ot Z79.84 C WPF DEVELOPER (CURRENT) USE OF ORAL HYPOGLYC 05/20/2016 CEASAR LUCAS MD Ot Z79.899 OTHER C WPF DEVELOPER (CURRENT) DRUG THERAPY 05/21/2016 CEASAR LUCAS MD Ot E11.9 TYPE 2 DIABETES MELLITUS WITHOUT COMPLIC 05/21/2016 CEASAR LUCAS MD Ot I10 ESSENTIAL (PRIMARY) HYPERTENSION 05/21/2016 CEASAR LUCAS MD Ot J44.0 CHRONIC OBSTRUCTIVE PULMON DISEASE W ACU 05/21/2016 CEASAR LUCAS MD Ot R06.00 DYSPNEA, UNSPECIFIED 05/21/2016 CEASAR LUCAS MD Ot R06.02 SHORTNESS OF BREATH 05/21/2016 CEASAR LUCAS MD Ot Z79.84 C WPF DEVELOPER (CURRENT) USE OF ORAL HYPOGLYC 05/21/2016 CEASAR [...] BREATH 05/23/2016 CEASAR LUCAS MD Ot Z79.84 C WPF DEVELOPER (CURRENT) USE OF ORAL HYPOGLYC 05/23/2016 CEASAR LUCAS MD Ot Z79.899 OTHER C WPF DEVELOPER (CURRENT) DRUG THERAPY 05/29/2016 Ot 250.00 DIAB [...] SEE COMMENTS NRG QUANTITY OF GROWTH Isolated [facility] Bacterial blood culture [id number] [facility] Capillary blood glucose measurement by glucometer (mass/volume) [...] FOR INFLUENZA A AND B ANTIGENS BY [facility] Comprehensive metabolic panel - 05/12/16 13:00 Serum [...] Status Pt. Type Provider Facility Loc./Unit Complaint [id number] 05/19/2016 23:48:00 2016 01:25:00 DIS Emergency SHAYY DUARTE, CEASAR Brock [facility] ER COUGH MUCUS [id number] 05/12/2016 12:50:00 2016 14:00:00 DIS Outpatient TOMMY BONILLA MD [facility] ER COUGH [id number] 04/26/2016 10:13:00 2016 11:05:00 DIS Outpatient ASIM LINARES [facility] REHAB NECK PAIN AND GENERALIZED WEAKNESS [id number] 03/27/2016 15:46:00 2015 19:10:00 DIS Emergency DOMINGA TOLEDO [facility] ER HEAD PAIN [id number] 01/20/2016 23:43:00 2015 00:45:00 DIS Emergency CEASAR LUCAS MD [facility] ER COUGHING, SORE THROAT [id number] 12/26/2015 22:39:00 2015 14:50:00 DIS Inpatient ROBBY HANLEY MD [facility] 4TH COPD EXACERBATION [id number] 10/16/2015 01:13:00 2015 03:12:00 DIS Emergency ROBBY LEWIS DO K [facility] ER BRONCHITIS [id number] 05/26/2015 21:03:00 2015 13:32:00 DIS Inpatient TOMMY SRINIVASAN MARSHAL [facility] ICU CHEST PAIN [id number] 03/21/2015 17:40:00 2014 19:14:00 DIS Emergency NELY MCCABE MD [facility] ER COUGH,CONGESTION [id number] 02/24/2015 10:04:00 2014 11:26:00 DIS Emergency NIEVES ALVARADO MD [facility] ER COUGH/CHEST CONGESTION [id number] 02/17/2015 15:15:00 2014 23:59:59 CLS Outpatient ORESTES EWING MD [facility] RT COPD [id number] 02/08/2015 09:32:00 2014 23:59:59 CLS Outpatient ORESTES EWING MD [facility] RAD PNEUMONIA [id number] 12/25/2014 21:55:00 2014 01:26:00 DIS Emergency CEASAR LUCAS MD [facility] ER CONGESTION [id number] 12/07/2014 12:22:00 2014 23:59:59 CLS Outpatient ORESTES EWING MD [facility] RAD CHRONIC LUMBAR PAIN, [id number] 09/02/2014 09:12:00 2014 10:55:00 DIS Emergency BOZENA WERNER APRN [facility] ER COUGH [id number] 03/01/2014 08:12:00 2013 23:59:59 CLS Outpatient LELAND DUARTE FACC, CARLOS ANGEL CCDS [facility] CARD CHEST DISCOMFORT, HTN,HLP [id number] 01/15/2014 09:24:00 2013 11:33:00 DIS Emergency NELY MCCABE MD [facility] ER NOSE BLEED [id number] 11/08/2013 07:59:00 2013 23:59:59 CLS Outpatient AYLIN SANTACRUZ MD [facility] REHAB ARTHRITIS PAIGE KNEES [id number] 07/28/2013 01:14:00 2013 02:48:00 DIS Emergency CHRISTIANO DUARTE, NIEVES Luis [facility] ER COUGHING [id number] 04/21/2013 01:15:00 2013 04:07:00 DIS Emergency SHAYY DUARTE, CEASAR Brock [facility] ER COUGH,CHEST HURTS [id number] 01/22/2013 09:02:00 2012 23:59:59 CLS Outpatient JUVENAL CLEANING [facility] LAB HYPERTENSION,HYPERLIPIDEMIA, STATIN [place] [id number] 09/18/2012 09:01:00 2012 23:59:59 CLS Outpatient JUVENAL CLEANING [facility] LAB HYPERLIPADEMIA,HYPERTENSION [id number] 06/03/2016 05:42:00 ACT Outpatient SUKI HERNANDEZ MD [facility] PREOP HISTORY POLYPS;REFLUX [id number] 03/04/2016 05:48:00 ACT Outpatient SUKI HERNANDEZ MD [facility] PREOP HISTORY POLYPS;REFLUX [id number] 05/31/2015 11:38:00 ACT Outpatient SABRINA MARKS DO [facility] RT COPD [id number] 05/10/2015 11:15:00 ACT Outpatient SABRINA MARKS DO [facility] RAD COPD,DYSPNEA [id number] 03/28/2015 11:18:00 ACT Outpatient HETER, NATHANIEL Janelle TELLO [facility] LAB HEMOPTYSIS [id number] 05/20/2014 09:13:00 Document Registration [id number] 05/20/2012 08:16:00 Document Registration [id number] 03/30/2012 09:19:00 Document Registration [id number] 11/21/2011 08:31:00 Document Registration [id number] 09/24/2011 08:32:00 Document Registration [id number] 05/27/2011 08:59:00 Document Registration [id number] 04/19/2011 04:28:00 Document Registration [id number] 04/18/2011 21:37:00 Document Registration [id number] 04/06/2011 23:50:00 Document Registration [id number] 03/25/2011 23:56:00 Document Registration [id number] 03/25/2011 18:29:00 Document Registration [id number] 02/23/2011 00:49:00 Document Registration [id number] 01/31/2011 08:03:00 Document Registration [id number] 01/28/2011 01:57:00 Document Registration [id number] 10/15/2010 09:20:00 Document Registration [id number] 10/06/2010 00:41:00 Document Registration [id number] 09/17/2010 00:40:00 Document Registration [id number] 03/22/2010 07:50:00 Document Registration [id number] 03/15/2010 14:00:00 Document Registration [id number] 02/25/2010 11:47:00 Document Registration [id number] 10/08/2009 23:41:00 Document Registration [id number] 04/24/2007 14:30:00 Document Registration
[2016-06-05 09:20] VITALS: BP 114/69
--- NOTE | 2016-06-05 10:01 | Conscious Sedation/ASA ---
Conscious Sedation Pre-Proced Time Reviewed: 10:00 ASA Class: 2 Airway Mallampati Classification: ([place] appropriate class) I. II. III, IV Lungs Heart ASA score ASA 1: a normal healthy patient ASA 2: a patient with a mild systemic disease (mid diabetes, controlled hypertension, obesity ASA 3: a patient with a severe systemic disease that limits activity (angina , COPD, prior Myocardial infarction) ASA 4: a patient with an incapacitating disease that is a constant threat to life (CHF, renal failure) ASA 5: a moribund patient not expected to survive 24 hrs. (ruptured aneurysm) ASA 6: a declared brain patient whose organs are being harvested. For emergent operations, add the letter E after the classification Grade 2 Sedation Plan: Analgesia, Amnesia, Plan communicated to team members, Discussed options with patient/fam, Discussed risks with patient/fam Note The patient is an appropriate candidate to undergo the planned procedure, sedation, and anesthesia. The patient immediately re-assessed prior to indication. SUKI HERNANDEZ MD Jun 05, 2016 10:01 am
--- NOTE | 2016-06-05 10:06 | Progress Note-Pre Operative ---
Pre-Operative Progress Note H&P Reviewed The H&P was reviewed, patient examined and no changes noted. Date H&P Reviewed: Jun 05, 2016 Time H&P Reviewed: 10:00 Pre-Operative Diagnosis: recurrent GERD, hx polyp SUKI HERNANDEZ MD Jun 05, 2016 10:06 am
[2016-06-05] MEDS: fentaNYL INJECTION 100 MCG/2 ML AMP IVP PRN ×4 (10:17→11:00)
[2016-06-05] MEDS: MIDAZOLAM 2 MG/2 ML (VERSED) VIAL IVP PRN ×2 (10:19→10:40)
[2016-06-05 11:25] VITALS: BP 96/65
--- NOTE | 2016-06-05 11:34 | Progress Note-Post Operative ---
Post-Operative Progess Note Pre-Operative Diagnosis recurrent GERD, hx polyp Post-Operative Diagnosis reflux esophagitis(class B-C), recurrent hiatal hernia(4cm), mild-moderate gastritis. chronic stage 2 ext and int hemorrhoids, mild sigmoid diverticulosis, polyp hepatic flexure(2mm) Post-Op Procedure Note Date of Procedure: Jun 05, 2016 Name of Procedure: EGD with bx. Colonoscopy with bx. Anesthesia Type CS Estimated blood loss (mL): minimal Specimen(s) collected antrum, GE jxn, hepatic flexure polyp SUKI HERNANDEZ MD Jun 05, 2016 11:34 am
--- NOTE | 2016-06-05 11:35 | Discharge Inst-Surgical ---
D/C Lap Instructions-MARY Follow Up 5 years Activity as tolerated High Fiber Diet 25g or more per day Avoid Alcohol, Caffeine, Spicy [place] and Acid foods. Drink 64 fluid oz or more of fluids per day. Symptoms to Report: Fever over 101 degree F, Nausea/Vomiting If any problems/questions: Contact your physician or go to Emergency Room SUKI HERNANDEZ MD Jun 05, 2016 11:35 am
[2016-06-05 11:59] VITALS: BP 114/69
[2016-06-05 12:02] VITALS: BP 114/60
[2016-06-05 12:04] VITALS: BP 114/60
--- NOTE | 2016-06-06 09:51 | OPERATIVE REPORT ---
PROCEDURE PHYSICIAN: SUKI BA DATE OF PROCEDURE: 06/05/2016 ATTENDING PERIODONTIST: Michelle Polk APRN. PREOPERATIVE DIAGNOSES: 1. Recurrent gastroesophageal reflux disease. 2. History of colon polyp. POSTOPERATIVE DIAGNOSES: 1. Reflux esophagitis, between class B and C. 2. Recurrent hiatal hernia, approximately 4 cm in size with a wrap within the recurrent hernia. No obstructions. 3. Mild to moderate gastritis. 4. Chronic, stage II external and internal hemorrhoids. 5. Small polyp of the hepatic flexure. 6. Mild sigmoid diverticulosis. PROCEDURES: 1. EGD with biopsy. 2. Colonoscopy with biopsy. SURGEON: Dr. Ba. ANESTHESIA: Conscious sedation. ESTIMATED BLOOD LOSS: Minimal. FINDINGS: EGD: 1. Reflux esophagitis, between class B and C. 2. Intrathoracic GE junction consistent with a recurrent hiatal hernia. 3. Recurrent hiatal hernia, approximately 4 cm in size. 4. Mild amount of gastritis. 5. Pylorus and duodenum appeared normal. COLONOSCOPY: 1. Chronic, stage II external and internal hemorrhoids. 2. Mild sigmoid diverticulosis. 3. Small polyp of the hepatic flexure, approximately 2 mm in size. DISPOSITION: The patient tolerated the procedure well. BRIEF HISTORY: Mr. 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 This gentleman also has a long-standing history of reflux and regurgitation. He was found to have a large hiatal hernia and underwent a hiatal hernia repair, as well as a Hill gastropexy in 2007. He did well initially; however has had recurrent reflux, as well as regurgitation. He also has a history of colon polyps where 4 were detected in 2009. All biopsied and found to be benign. He underwent a follow-up EGD and colonoscopy in 2012 and found to have a recurrent hiatal hernia, gastritis, as well as cecal polyp and a mild sigmoid diverticulosis. He reports that his reflux and regurgitation again have returned and have worsened. PROCEDURE: The patient was brought to the endoscopy suite, laid in the left lateral decubitus position. After adequate IV pain and sedative medications and conscious sedation anesthesia, the mouthpiece was applied. The endoscope was placed in the mouth, visualizing the pharynx and hypopharyngeal region. Vocal cords, epiglottis and vallecula identified and appeared to be normal. The endoscope was then intubated into the esophageal opening and the esophagus insufflated. The endoscope was then advanced to the first, second, and 3rd portions esophagus at the level of the GE junction, a reflux esophagitis, between class B and C identified. The GE junction was also intrathoracic consistent with recurrent hiatal hernia. A biopsy was taken with forceps with visualization of good hemostasis. The endoscope was then advanced into the stomach and endoscope retroflexed visualizing a recurrent hiatal hernia which was large in size, approximately 4 cm. The wrap appeared intact and within the recurrent hiatal hernia. There was a mild to moderate gastritis. There were no formal ulcers, polyps or any neoplasms within the stomach. A biopsy was taken of the antrum with visualization of good hemostasis. The endoscope was then advanced through the pylorus and into the first and second portions of duodenum which appeared normal. The endoscope was then slowly withdrawn while taking a second look and suctioning of residual air with no additional findings. The patient tolerated this portion the procedure well. For his recurrent hiatal hernia, reflux esophagitis, and gastritis we will recommend continued medical management with the necessary lifestyle and diet accommodation including smaller, more frequent meals, avoidance of eating at night, as well as head elevation while lying supine. He also needs to proceed with chewing thoroughly, taking small bites and waiting between food boluses as well. We will recommend that he continue with his PPI acid reducers, as well as Carafate. There is a recurrent hiatal hernia, however, due to his age and medical comorbidities, as well as previous surgery, risk for complications is high. COLONOSCOPY: Under the same conscious sedation anesthesia, we then proceeded with the colonoscopy portion the procedure. A digital rectal examination was performed, which revealed chronic, stage II external and internal hemorrhoids, not actively edematous or inflamed and no bleeding. Normal sphincter tone was felt and there were no palpable masses. The prostate gland and was palpable and appeared normal. The endoscope was then intubated into the anus and the rectum gently insufflated. The endoscope was then advanced into valves of [place] of the rectum with no polyps or any neoplasms identified. The endoscope was then advanced through the sigmoid colon a mild sigmoid diverticulosis identified. The endoscope was then advanced through the descending, transverse, and ascending colon. At the hepatic flexure a small polyp, approximately 2 mm in size was identified. This was biopsied and destroyed using forceps and electrocautery with visualization of good hemostasis. The endoscope was then advanced through the remainder of the ascending colon to the cecum. The endoscope was slowly withdrawn while taking a second look and suctioning residual air with additional findings. The patient tolerated this portion the procedure well. We will recommend a high fiber diet with at least 30 grams of fiber per day, as well as at least 64 fluid ounces of water daily to promote soft stools on a daily basis. He may proceed with another colonoscopy in 5 years. However, this would be his choice. Job ID: [id number] Dictated Date: 06/05/2016 11:27:36 Spanish Translator Date: 06/06/2016 09:35:02 / megan
== END | disposition home or self-care (01) ==
LOC: ENDO 09:09
PROVIDERS: ATTEND Surgery Pediatric Surgery
DX: K21.0 Gastro-esophageal reflux disease with esophagitis (principal); K63.5 Polyp of colon; K44.9 Diaphragmatic hernia without obstruction or gangrene; K29.70 Gastritis, unspecified, without bleeding; K64.8 Other hemorrhoids; K57.90 Diverticulosis of intestine, part unspecified, without perforation or abscess without bleeding
CPT/HCPCS: 88305

== ENCOUNTER 2016-06-21 17:46 | Emergency (ER) | payer MEDICARE, MEDICAID ==
[~2016-06-21] VITALS: Ht 182.9 cm; Wt 90.7 kg
[~2016-06-21 17:46] MED LIST changes: -ACETAMINOPHEN 325 MG TABLET/CAPLET (TYLENOL) PO PRN; -FLUMAZENIL (ROMAZICON) 0.1 MG/ML 5 ML VIAL INJ PRN; -HURRICAINE EXT TUBE (BENZOCAINE) ONE; -HURRICAINE EXT TUBE (BENZOCAINE) XX PRN; -LIDOCAINE JELLY 2% (XYLOCAINE) 5 ML TUBE ONE; -MIDAZOLAM 2 MG/2 ML (VERSED) VIAL ONE; -NALOXONE 0.4 MG/ML 1 ML (NARCAN) VIAL IVP PRN; -NS IV 500 ML 500 ML IV ONE; -ONDANSETRON 4 MG/2 ML (SDV) Z0FRAN IV PRN; -fentaNYL INJECTION 100 MCG/2 ML AMP ONE; -morphine INJ 10 MG/ML 1ML (SYR OR VIAL) IV PRN
--- NOTE | 2016-06-21 18:01 | ED Cough/URI ---
General Chief Complaint: Cough/Cold/Flu Symptoms Stated Complaint: COUGH, FEVER Source: patient Exam Limitations: no limitations History of Present Illness Time seen by provider: 18:00 Initial Comments To ER, accompanied by his with reports of a nonproductive cough and runny nose for the past 2 days. He denies fevers. He denies sore throat. He states he would not normally be alarmed by these symptoms but he is scheduled to have Dr. Riggs look at his hiatal hernia and he is afraid that this illness may interfere with that surgery. He has a history of COPD and wears oxygen around- the-clock at 3 L/m. He denies any shortness of breath Timing/Duration: constant Severity/Quality: dry cough Associated Symptoms: cough Allergies and Home Medications Allergies Coded Allergies: aspirin (Unverified Allergy, Unknown, 05/20/14) codeine (Verified Allergy, Unknown, 04/07/06) hydrocodone (Unverified Allergy, Unknown, 10/16/15) Uncoded Allergies: SSRI (Allergy, Unknown, 05/20/14) TCA (Allergy, Unknown, 05/20/14) Home Medications Acetaminophen/Diphenhydramine 1 Each Tablet, Unknown Dose PO, (Reported) Albuterol Sulfate 2.5 Mg/3 Ml Vial.neb, 2.5 MG IH Q4H PRN for SHORTNESS OF BREATH, (Reported) Amlodipine Besylate 10 Mg Tablet, 10 MG PO DAILY, (Reported) Atorvastatin Calcium 40 Mg Tablet, 40 MG PO HS, (Reported) Azithromycin 250 Mg Tablet, 250 MG PO UD, #6 TAKE 2 TABLETS ON DAY ONE THEN TAKE 1 TABLET DAILY FOR FOUR MORE DAYS Prescribed by: BOZENA WERNER on 06/21/16 1804 Benazepril HCl 20 Mg Tablet, 20 MG PO DAILY, (Reported) Benzonatate 100 Mg Capsule, 100 MG PO twice a day, #20 Prescribed by: TOMMY BONILLA on 05/12/16 1353 Cefdinir 300 Mg Capsule, 300 MG PO twice a day, #14 Prescribed by: TOMMY BONILLA on 05/12/16 1353 Chlorphen/Dm/Acetaminophen/GG 1 Each Tb.cp.seq, 1-2 TAB PO Q6H PRN for DRAINAGE, (Reported) Clonazepam 1 Mg Tablet, 1 MG PO Q8H PRN for ANXIETY, (Reported) Cyanocobalamin 50 Mcg Lozenge, 500 MCG PO DAILY, (Reported) Doxazosin Mesylate 4 Mg Tablet, 4 MG PO HS, (Reported) Fish Oil/Dha/Epa 1 Each Capsule, 1 EACH PO DAILY, (Reported) Glipizide 5 Mg Tablet, 5 MG PO DAILY, (Reported) Levocetirizine Dihydrochloride 5 Mg Tablet, 5 MG PO HS, (Reported) Metformin HCl 500 Mg Tablet, 250 MG PO BID WITH MEALS, (Reported) TAKES 1/2 (500MG) TABLET Montelukast Sodium 10 Mg Tablet, 10 MG PO HS, (Reported) Montelukast Sodium 10 Mg Tablet, 10 MG PO HS, (Reported) Oxybutynin Chloride 10 Mg Tab.er.24, 10 MG PO DAILY, (Reported) Pantoprazole Sodium 40 Mg Tablet.dr, 40 MG PO HS, (Reported) Prednisone 20 Mg Tab, 20 MG PO DAILY, #4 Prescribed by: CEASAR CASTILLO on 05/20/16 0124 Prednisone 20 Mg Tab, 40 MG PO DAILY, #6 Prescribed by: BOZENA WERNER on 06/21/16 1804 Pregabalin 100 Mg Capsule, 100 MG PO BID, (Reported) Ranitidine HCl 150 Mg Tablet, 150 MG PO BID, (Reported) Rivastigmine 4.6 Mg Patch, 4.6 MG TD DAILY, (Reported) Sucralfate 1 Gm Tablet, 1 GM PO QID, (Reported) Tiotropium [place] 1 Inh Aerp, 1 CAP INH HS, (Reported) Tramadol HCl 50 Mg Tablet, 50 MG PO BID PRN for PAIN, (Reported) Triamcinolone Acetonide 15 Gm Cream..g., TOP BID, (Reported) 0.1% APPLY TO FEET Vilazodone Hydrochloride 10 Mg Tablet, 10 MG PO HS, (Reported) Constitutional: see HPI EENTM: nose congestion, see HPI Respiratory: see HPI, cough Cardiovascular: no symptoms reported Genitourinary: no symptoms reported Musculoskeletal: no symptoms reported Skin: no symptoms reported Psychiatric/Neurological: No Symptoms Reported Hematologic/Lymphatic: No Symptoms Reported Immunological/Allergic: no symptoms reported Past Wigunbw-Vawqnk-Dkikvg Hx Patient Social History Type Used: Cigarettes Former Smoker/When Quit: May 26, 1959 2nd Hand Smoke Exposure: No Recent Foreign Travel: No Contact w/Someone Who Travel: No Recent Hopitalizations: No Immunizations Up To Date Tetanus Booster (TDap): Unknown Date of Pneumonia Vaccine: Feb 20, 2016 Date of Influenza Vaccine: Dec 20, 2015 Seasonal Allergies Seasonal Allergies: No Surgeries HX Surgeries: Yes Surgeries: Abdominal, Adenoidectomy, Eye Surgery, Prostatectomy, Tonsillectomy Respiratory Hx Respiratory Disorders: Yes Respiratory Disorders: Asthma, Pneumonia, Chronic Bronchitis, COPD Cardiovascular Hx Cardiac Disorders: Yes Cardiac Disorders: Chronic Edema/Swelling, High Cholesterol, Hypertension Neurological Hx Neurological Disorders: Yes Neurological Disorders: Dementia Reproductive System Hx Reproductive Disorders: No Sexually Transmitted Disease: No Genitourinary Hx Genitourinary Disorders: Yes (PROSTATE CANCER > 10 YEARS AGO) Genitourinary Disorders: Prostate Problems Gastrointestinal Hx Gastrointestinal Disorders: Yes Gastrointestinal Disorders: Abdominal Hernia, Gastroesophageal Reflux, Polyps, Hiatal Hernia Musculoskeletal Hx Musculoskeletal Disorders: Yes ("Lyrica for arthritis") Musculoskeletal Disorders: Arthritis Endocrine Hx Endocrine Disorders: Yes Endocrine Disorders: Diabetes, Non-Insulin dep HEENT HX ENT Disorders: Yes (tear duct dysfunction, vision deficit/disfigurement of right eye, sinusitis) Cancer Hx Cancer: Yes (PROSTATE CANCER-S/P SURGERY ONLY;BASAL CELL CA R EYELID) Cancer: Prostate, Skin Psychosocial Hx Psychiatric Problems: Yes Behavioral Health Disorders: Anxiety, Depression Integumentary HX Skin/Integumentary Disorder: Yes (SKIN CANCER) Blood Transfusions Hx Blood Disorders: No Adverse Reaction to a Blood Tr: No Family Medical History Significant Family History: No Pertinent Family Hx Family Medial History: FH: breast cancer G8 SISTER Physical Exam Vital Signs Vital Sign - Last 12Hours 06/21/16 17:59 Temp 99.1 Pulse 80 Resp 16 B/P (MAP) 161/86 Pulse Ox 96 O2 Delivery Nasal Cannula O2 Flow Rate 3.00 Capillary Refill : General Appearance: WD/WN, no apparent distress Eyes: Bilateral Eye EOMI, Bilateral Eye Normal Inspection, Bilateral Eye PERRL HEENT: PERRL/EOMI, normal ENT inspection Neck: non-tender, full range of motion Respiratory: no respiratory distress, no accessory muscle use, decreased breath sounds, crackles (right lower lobe) Gastrointestinal: normal bowel sounds, non tender, soft Extremities: normal range of motion, non-tender Neurologic/Psychiatric: alert, normal mood/affect, oriented x 3 Skin: normal color, warm/dry Progress/Results/Core Measures Results/Orders Lab Results Laboratory Tests Test 06/21/16 18:00 Range/Units White Blood Count 6.6 4.3-11.0 10^3/uL Red Blood Count 4.41 4.35-5.85 10^6/uL Hemoglobin 13.2 L 13.3-17.7 G/DL Hematocrit 39 L 40-54 % Mean Corpuscular Volume 89 80-99 FL Mean Corpuscular Hemoglobin 30 25-34 PG Mean Corpuscular Hemoglobin Concent 34 32-36 G/DL Red Cell Distribution Width 12.6 10.0-14.5 % Platelet Count 217 130-400 10^3/uL Mean Platelet Volume 9.2 7.4-10.4 FL Neutrophils (%) (Auto) 59 42-75 % Lymphocytes (%) (Auto) 29 12-44 % Monocytes (%) (Auto) 10 0-12 % Eosinophils (%) (Auto) 2 0-10 % Basophils (%) (Auto) 0 0-10 % Neutrophils # (Auto) 3.9 1.8-7.8 X 10^3 Lymphocytes # (Auto) 1.9 1.0-4.0 X 10^3 Monocytes # (Auto) 0.7 0.0-1.0 X 10^3 Eosinophils # (Auto) 0.1 0.0-0.3 10^3/uL Basophils # (Auto) 0.0 0.0-0.1 10^3/uL Micro Results Microbiology 06/21/16 Influenza Types A,B Antigen ([facility]) - Final, Complete My Orders Orders - BOZENA WERNER APRN Cbc With Automated Diff (06/21/16 17:51) Chest Pa/Lat (2 View) (06/21/16 17:51) Influenza A And B Antigens (06/21/16 17:51) Prednisone Tablet (Deltasone Tablet) (06/21/16 18:45) Medications Given in ED Current Medications Medications Dose Ordered Sig/Bernice Route Start Time Stop Time Status Last Admin Dose Admin Prednisone 40 mg ONCE ONCE PO 06/21/16 18:45 06/21/16 18:46 DC 06/21/16 18:45 40 MG Vital Signs/I&O Vital Sign - Last 12Hours 06/21/16 06/21/16 17:59 18:04 Temp 99.1 Pulse 80 Resp 16 B/P (MAP) 161/86 Pulse Ox 96 O2 Delivery Nasal Cannula Nasal Cannula O2 Flow Rate 3.00 3.00 Diagnostic Imaging Diagonstic Imaging: Xray Plain Films/CT/US/NM/MRI: chest Comments NAME: ISABELA ESPINOZA [facility] REC#: [id number] PT STATUS: REG ER : 1935 PHYSICIAN: BOZENA WERNER APRN ADMIT DATE: 06/21/16/ER Draft Date of Exam:06/21/16 CHEST PA/LAT (2 VIEW) INDICATION: Cough PA and lateral views of the chest are obtained. Comparison is made to study of 05/20/2016. There is bilateral air trapping with prominence of interstitial markings in both lungs. There is abnormal increased density in the left lung base. This could be related to focal infiltrate, however, the presence of basal pulmonary nodule is not excluded. There is no significant pleural fluid. IMPRESSION: Findings are consistent with COPD. Abnormal density left lung base could be related to focal infiltrate. Short-term followup study could be performed in 1 to 2 weeks to document stability or resolution. If the nodular appearance of this finding persists, CT imaging should be considered. Dictated on workstation # [id number] Dict: 06/21/16 1817 Trans: 06/21/16 1840 [facility] [id number] Interpreted by: CASSIE PALAFOX MD Electronically signed by: Departure Impression Impression: Primary Impression: COPD exacerbation Disposition: HOME, SELF-CARE Condition: Stable Departure-Patient Inst. Decision time for Depature: 18:02 Referrals: [facility] (PCP/Family) Primary Care Physician Patient Instructions: Cough, Adult (DC) Add. Discharge Instructions: 1. Medication as directed 2. Return to ER for any worsening 3. See your doctor next week All discharge instructions reviewed with patient and/or family. Voiced understanding. Scripts Azithromycin (Azithromycin) 250 Mg Tablet 250 MG PO UD, #6 TAB TAKE 2 TABLETS ON DAY ONE THEN TAKE 1 TABLET DAILY FOR FOUR MORE DAYS. Prov: BOZENA WERNER APRN 06/21/16 Prednisone (Prednisone) 20 Mg Tab 40 MG PO DAILY, #6 TAB . Prov: BOZENA WERNER APRN 06/21/16 Copy Copies To 1: SALMA RAMIREZ PETER J APRN Jun 21, 2016 18:01
[2016-06-21] MEDS ORDERED: PRD20T PO ×2 (18:04→18:51)
[2016-06-21] MEDS ORDERED: AZIT250T5 PO ×2 (18:04→18:51)
[2016-06-21 18:09] LABS: BASOPHILS % (AUTO) 0 % (0-10); EOSINOPHILS # (AUTO) 0.1 10^3/uL (0.0-0.3); EOSINOPHILS % (AUTO) 2 % (0-10); LYMPHOCYTES # (AUTO) 1.9 X 10^3 (1.0-4.0); LYMPHOCYTES % (AUTO) 29 % (12-44); MEAN CORPUSCULAR HEMOGLOBIN 30 PG (25-34); MEAN CORPUSCULAR HGB CONC 34 G/DL (32-36); MEAN CORPUSCULAR VOLUME 89 FL (80-99); MEAN PLATELET VOLUME 9.2 FL (7.4-10.4); MONOCYTES # (AUTO) 0.7 X 10^3 (0.0-1.0); MONOCYTES % (AUTO) 10 % (0-12); NEUTROPHILS # (AUTO) 3.9 X 10^3 (1.8-7.8); NEUTROPHILS % (AUTO) 59 % (42-75); PLATELET COUNT 217 10^3/uL (130-400); RED BLOOD COUNT 4.41 10^6/uL (4.35-5.85); RED CELL DISTRIBUTION WIDTH 12.6 % (10.0-14.5); WHITE BLOOD COUNT 6.6 10^3/uL (4.3-11.0)
--- NOTE | 2016-06-21 18:41 | Diagnostic Imaging Report ---
INDICATION: Cough PA and lateral views of the chest are obtained. Comparison is made to study of 05/20/2016. There is bilateral air trapping with prominence of interstitial markings in both lungs. There is abnormal increased density in the left lung base. This could be related to focal infiltrate, however, the presence of basal pulmonary nodule is not excluded. There is no significant pleural fluid. IMPRESSION: Findings are consistent with COPD. Abnormal density left lung base could be related to focal infiltrate. Short-term followup study could be performed in 1 to 2 weeks to document stability or resolution. If the nodular appearance of this finding persists, CT imaging should be considered. Dictated by: Dictated on workstation # [id number]
[2016-06-21] MEDS: predniSONE 20 MG TAB PO ONE (18:45)
[2016-06-21 18:50] VITALS: BP 154/80
--- OUTSIDE RECORDS SUMMARY | 2016-06-23 13:21 | XMS REPORT | Continuity of Care Document ---
Author Author [facility] Organization [facility] Address Unknown Phone Unavailable Allergies Active Description Code Type Severity Reaction Onset Reported/Identified Relationship to Patient Clinical Status Yes codeine [id number] Drug Allergy Unknown N/A 04/07/2006 Yes aspirin [id number] Drug Allergy Unknown N/A 05/20/2014 Yes SSRI SSRI Unknown N/A 05/20/2014 Yes TCA TCA Unknown N/A 05/20/2014 Yes hydrocodone [id number] Drug Allergy Unknown N/A 10/16/2015 Medications Problems [...] FACP CCDS Ot 401.9 04/05/2014 LELAND DUARTE [facility], ALI FACP CCDS Ot 786.59 04/05/2014 LELAND DUARTE [facility], ALI FACP CCDS Ot V58.69 05/20/2014 Ot 473.9 CHRONIC SINUSITIS NOS 05/20/2014 Ot 786.2 COUGH 09/02/2014 BOZENA WERNER CREDIT COLLECTIONS CLERK Ot 466.0 ACUTE BRONCHITIS 09/02/2014 BOZENA WERNER CREDIT COLLECTIONS CLERK Ot 786.2 COUGH 12/26/2014 SHAYY DUARTE, CEASAR [...] 401.9 03/28/2015 Ot V58.69 03/28/2015 BAIMAJUVENAL L EMAIL MARKETING COORDINATOR Ot 272.4 03/28/2015 BAIMAJUVENAL L EMAIL MARKETING COORDINATOR Ot 401.9 03/28/2015 BAIMA JUVENAL L EMAIL MARKETING COORDINATOR Ot 272.4 03/28/2015 BAIMA JUVENAL L EMAIL MARKETING COORDINATOR Ot 401.9 03/28/2015 BAIMA JUVENAL L EMAIL MARKETING COORDINATOR Ot V58.69 03/28/2015 LELAND DUARTE [facility], ALI [...] ORESTES Chavez Ot J18.9 04/20/2015 NATHANIEL JETT CREDIT COLLECTIONS CLERK Ot R04.2 04/26/2015 NATHANIEL JETT OMER Ot [...] SABRINA MARKS DO Ot R06.00 06/20/2015 SABRINA MARSK DO Ot Z85.828 07/03/2015 SABRINA MARKS DO [...] OTH MED,LT,CURRENT USE 01/01/2016 BAIMA, JUVENAL L EMAIL MARKETING COORDINATOR Ot 272.4 HYPERLIPIDEMIA NEC/NOS 01/01/2016 BAIMA, JUVENAL L EMAIL MARKETING COORDINATOR Ot 401.9 HYPERTENSION NOS 01/01/2016 BAIMA, JUVENAL L EMAIL MARKETING COORDINATOR Ot 272.4 HYPERLIPIDEMIA NEC/NOS 01/01/2016 BAIMA, JUVENAL L EMAIL MARKETING COORDINATOR Ot 401.9 HYPERTENSION NOS 01/01/2016 BAIMA, JUVENAL L EMAIL MARKETING COORDINATOR Ot V58.69 OTH MED,LT,CURRENT USE 01/01/2016 LELAND [...] COUGH 01/21/2016 CEASAR LUCAS MD Ot Z79.84 GROUP HOME (CURRENT) USE OF ORAL HYPOGLYC 01/21/2016 CEASAR LUCAS MD Ot Z79.899 OTHER GROUP HOME (CURRENT) DRUG THERAPY 01/22/2016 CEASAR LUCAS MD Ot E11.9 TYPE 2 DIABETES MELLITUS WITHOUT COMPLIC 01/22/2016 CEASAR LUCAS MD Ot I10 ESSENTIAL (PRIMARY) HYPERTENSION 01/22/2016 CEASAR LUCAS MD Ot J02.9 ACUTE PHARYNGITIS, UNSPECIFIED 01/22/2016 CEASAR LUCAS MD Ot J44.1 CHRONIC OBSTRUCTIVE PULMONARY DISEASE W 01/22/2016 CEASAR LUCAS MD Ot R05 COUGH 01/22/2016 CEASAR LUCAS MD Ot Z79.84 GROUP HOME (CURRENT) USE OF ORAL HYPOGLYC 01/22/2016 CEASAR LUCAS MD Ot Z79.899 OTHER GROUP HOME (CURRENT) DRUG THERAPY 02/29/2016 Ot 300.00 02/29/2016 [...] DOMINGA TOLEDOP Ot Y92.[address] IN [facility] ([facility] 03/27/2016 DOMINGA TOLEDOP Ot Y99.8 OTHER EXTERNAL CAUSE STATUS 03/27/2016 DOMINGA TOLEDOP Ot Z79.84 GARAGE SUPERVISOR (CURRENT) USE OF ORAL HYPOGLYC 03/27/2016 PARIS, DOMINGA EMAIL MARKETING COORDINATOR Ot Z79.899 OTHER GARAGE SUPERVISOR (CURRENT) DRUG THERAPY 03/27/2016 PARIS, DOMINGA EMAIL MARKETING COORDINATOR Ot Z87.891 PERSONAL HISTORY OF NICOTINE DEPENDENCE 03/28/2016 PARIS, DOMINGA EMAIL MARKETING COORDINATOR Ot E11.9 TYPE 2 DIABETES MELLITUS WITHOUT COMPLIC 03/28/2016 PARIS, DOMINGA EMAIL MARKETING COORDINATOR Ot I10 ESSENTIAL (PRIMARY) HYPERTENSION 03/28/2016 PARIS, DOMINGA EMAIL MARKETING COORDINATOR Ot S00.12XA CONTUSION OF LEFT EYELID AND PERIOCULAR 03/28/2016 PARIS DOMINGA EMAIL MARKETING COORDINATOR Ot S09.90XA UNSPECIFIED INJURY OF HEAD, INITIAL ENCO 03/28/2016 DOMINGA TOLEDO EMAIL MARKETING COORDINATOR Ot W20.8XXA OTH CAUSE OF STRIKE BY THROWN, PROJECTED 03/28/2016 DOMINGA TOLEDOP Ot Y92.[address] [facility] [address] IN [facility] ([facility] 03/28/2016 DOMINGA TOLEDOP Ot Y99.8 OTHER EXTERNAL CAUSE STATUS 03/28/2016 DOMINGA TOLEDO EMAIL MARKETING COORDINATOR Ot Z79.84 GARAGE SUPERVISOR (CURRENT) USE OF ORAL HYPOGLYC 03/28/2016 PARIS, DOMINGA EMAIL MARKETING COORDINATOR Ot Z79.899 OTHER GROUP HOME (CURRENT) DRUG THERAPY 03/28/2016 PARIS, DOMINGA EMAIL MARKETING COORDINATOR Ot Z87.891 PERSONAL HISTORY OF NICOTINE DEPENDENCE 03/29/2016 PARIS, DOMINGA EMAIL MARKETING COORDINATOR Ot E11.9 TYPE 2 DIABETES MELLITUS WITHOUT COMPLIC 03/29/2016 PARIS, DOMINGA EMAIL MARKETING COORDINATOR Ot I10 ESSENTIAL (PRIMARY) HYPERTENSION 03/29/2016 PARIS, DOMINGA EMAIL MARKETING COORDINATOR Ot S00.12XA CONTUSION OF LEFT EYELID AND PERIOCULAR 03/29/2016 PARIS DOMINGA EMAIL MARKETING COORDINATOR Ot S09.90XA UNSPECIFIED INJURY OF HEAD, INITIAL ENCO 03/29/2016 PARIS, DOMINGA EMAIL MARKETING COORDINATOR Ot W20.8XXA OTH CAUSE OF STRIKE BY THROWN, PROJECTED 03/29/2016 DOMINGA TOLEDOP Ot Y92.009 [facility] [address] IN [facility] (PRIVATE 03/29/2016 DOMINGA TOLEDOP Ot Y99.8 OTHER EXTERNAL CAUSE STATUS 03/29/2016 DOMINGA TOLEDOP Ot Z79.84 GROUP HOME (CURRENT) USE OF ORAL HYPOGLYC 03/29/2016 DOMINGA TOLEDO EMAIL MARKETING COORDINATOR Ot Z79.899 OTHER GARAGE SUPERVISOR (CURRENT) DRUG THERAPY 03/29/2016 DOMINGA TOLEDO EMAIL MARKETING COORDINATOR Ot Z87.891 PERSONAL HISTORY OF NICOTINE DEPENDENCE 03/31/2016 Ot 300.00 03/31/2016 Ot V58.69 03/31/2016 PARIS, DOMINGA EMAIL MARKETING COORDINATOR Ot E11.9 TYPE 2 DIABETES MELLITUS WITHOUT COMPLIC 03/31/2016 DOMINGA TOLEDO EMAIL MARKETING COORDINATOR Ot I10 ESSENTIAL (PRIMARY) HYPERTENSION 03/31/2016 PARIS DOMINGA MCCORMICKP Ot S00.12XA CONTUSION OF LEFT EYELID AND PERIOCULAR 03/31/2016 DOMINGA TOLEDOP Ot S09.90XA UNSPECIFIED INJURY OF HEAD, INITIAL ENCO 03/31/2016 DOMINGA TOLEDOP Ot W20.8XXA OTH CAUSE OF STRIKE BY THROWN, PROJECTED 03/31/2016 DOMINGA TOLEDOP Ot Y92.[address] [facility] [address] IN [facility] ([facility] 03/31/2016 DOMINGA TOLEDOP Ot Y99.8 OTHER EXTERNAL CAUSE STATUS 03/31/2016 DOMINGA TOLEDOP Ot Z79.84 GROUP HOME (CURRENT) USE OF ORAL HYPOGLYC 03/31/2016 DOMINGA TOLEDO EMAIL MARKETING COORDINATOR Ot Z79.899 OTHER GARAGE SUPERVISOR (CURRENT) DRUG THERAPY 03/31/2016 DOMINGA TOLEDO EMAIL MARKETING COORDINATOR Ot Z87.891 PERSONAL HISTORY OF NICOTINE DEPENDENCE 04/24/2016 MADLASIM EMAIL MARKETING COORDINATOR Ot M54.2 CERVICALGIA 04/24/2016 ASIM LINARES EMAIL MARKETING COORDINATOR Ot R53.1 WEAKNESS 05/01/2016 ASIM LINARES EMAIL MARKETING COORDINATOR Ot M54.2 CERVICALGIA 05/01/2016 ASIM LINARES EMAIL MARKETING COORDINATOR Ot R53.1 WEAKNESS 05/12/2016 ODTOMMY GOULD MD Ot E11.9 TYPE 2 DIABETES MELLITUS WITHOUT COMPLIC 05/12/2016 TOMMY BONILLA MD Ot I10 ESSENTIAL (PRIMARY) HYPERTENSION 05/12/2016 TOMMY BONILLA MD Ot J40 BRONCHITIS, NOT SPECIFIED ACUTE OR CH 05/12/2016 TOMMY BONILLA MD Ot J43.9 EMPHYSEMA, UNSPECIFIED 05/12/2016 TOMMY BONILLA MD Ot R05 COUGH 05/12/2016 TOMMY BONILLA MD Ot Z79.84 GARAGE SUPERVISOR (CURRENT) USE OF ORAL HYPOGLYC 05/12/2016 TOMMY BONILLA MD Ot Z79.899 OTHER GARAGE SUPERVISOR (CURRENT) DRUG THERAPY 05/12/2016 TOMMY BONILLA MD Ot Z87.891 PERSONAL HISTORY [...] COUGH 05/13/2016 TOMMY BONILLA MD Ot Z79.84 GARAGE SUPERVISOR (CURRENT) USE OF ORAL HYPOGLYC 05/13/2016 TOMMY BONILLA MD Ot Z79.899 OTHER GARAGE SUPERVISOR (CURRENT) DRUG THERAPY 05/13/2016 TOMMY BONILLA MD [...] COUGH 05/13/2016 TOMMY BONILLA MD Ot Z79.84 GARAGE SUPERVISOR (CURRENT) USE OF ORAL HYPOGLYC 05/13/2016 TOMMY BONILLA MD Ot Z79.899 OTHER GROUP HOME (CURRENT) DRUG THERAPY 05/13/2016 IRENE DUARTE, TOMMY Palmer Ot Z87.891 PERSONAL HISTORY OF NICOTINE DEPENDENCE 05/20/2016 CEASAR LUCAS MD Ot E11.9 TYPE 2 DIABETES MELLITUS WITHOUT COMPLIC 05/20/2016 CEASAR LUCAS MD Ot I10 ESSENTIAL (PRIMARY) HYPERTENSION 05/20/2016 CEASAR LUCAS MD Ot J44.0 CHRONIC OBSTRUCTIVE PULMON DISEASE W ACU 05/20/2016 CEASAR LUCAS MD Ot R06.00 DYSPNEA, UNSPECIFIED 05/20/2016 CEASAR LUCAS MD Ot R06.02 SHORTNESS OF BREATH 05/20/2016 CEASAR LUCAS MD Ot Z79.84 GARAGE SUPERVISOR (CURRENT) USE OF ORAL HYPOGLYC 05/20/2016 CEASAR LUCAS MD Ot Z79.899 OTHER GARAGE SUPERVISOR (CURRENT) DRUG THERAPY 05/21/2016 CEASAR LUCAS MD Ot E11.9 TYPE 2 DIABETES MELLITUS WITHOUT COMPLIC 05/21/2016 CEASAR LUCAS MD Ot I10 ESSENTIAL (PRIMARY) HYPERTENSION 05/21/2016 CEASAR LUCAS MD Ot J44.0 CHRONIC OBSTRUCTIVE PULMON DISEASE W ACU 05/21/2016 CEASAR LUCAS MD Ot R06.00 DYSPNEA, UNSPECIFIED 05/21/2016 CEASAR LUCAS MD Ot R06.02 SHORTNESS OF BREATH 05/21/2016 CEASAR LUCAS MD Ot Z79.84 GARAGE SUPERVISOR (CURRENT) USE OF ORAL HYPOGLYC 05/21/2016 CEASAR LUCAS MD Ot Z79.899 OTHER GROUP HOME (CURRENT) DRUG THERAPY 05/23/2016 CEASAR LUCAS MD Ot E11.9 TYPE 2 DIABETES MELLITUS WITHOUT COMPLIC 05/23/2016 CEASAR LUCAS MD Ot I10 ESSENTIAL (PRIMARY) HYPERTENSION 05/23/2016 CEASAR LUCAS MD Ot J44.0 CHRONIC OBSTRUCTIVE PULMON DISEASE W ACU 05/23/2016 CEASAR LUCAS MD Ot R06.00 DYSPNEA, UNSPECIFIED 05/23/2016 CEASAR LUCAS MD Ot R06.02 SHORTNESS OF BREATH 05/23/2016 CEASAR LUCAS MD Ot Z79.84 GROUP HOME (CURRENT) USE OF ORAL HYPOGLYC 05/23/2016 CEASAR LUCAS MD Ot Z79.899 OTHER GROUP HOME (CURRENT) DRUG THERAPY 05/29/2016 Ot 250.00 DIAB KASSANDRA WO COMPL, TYPE II OR UNSPEC TY 05/29/2016 Ot 401.9 HYPERTENSION NOS 05/29/2016 Ot 466.0 ACUTE BRONCHITIS 05/29/2016 Ot 786.59 CHEST PAIN NEC 05/29/2016 Ot V58.69 OTH MED,LT,CURRENT USE 06/04/2016 SUKI HERNANDEZ MD, Ot K21.9 GASTRO-ESOPHAGEAL REFLUX DISEASE WITHOUT 06/04/2016 SUKI HERNANDEZ MD, Ot Z01.818 ENCOUNTER FOR OTHER PREPROCEDURAL EXAMIN 06/04/2016 SUKI HERNANDEZ MD, Ot Z12.11 ENCOUNTER FOR SCREENING FOR MALIGNANT NE 06/04/2016 SUKI HERNANDEZ MD Ot Z86.010 PERSONAL HISTORY OF COLONIC POLYPS 06/06/2016 SUKI HERNANDEZ MD, Ot K21.0 GASTRO-ESOPHAGEAL REFLUX DISEASE WITH ES 06/06/2016 SUKI HERNANDEZ MD, Ot K29.70 GASTRITIS, UNSPECIFIED, WITHOUT BLEEDING 06/06/2016 SUKI HERNANDEZ MD, Ot K44.9 DIAPHRAGMATIC HERNIA WITHOUT OBSTRUCTION 06/06/2016 SUKI HERNANDEZ MD Ot K57.90 DVRTCLOS OF INTEST, PART UNSP, W/O PERF 06/06/2016 SUKI HERNANDEZ MD Ot K63.5 POLYP OF COLON 06/06/2016 SUKI HERNANDEZ MD Ot K64.8 OTHER HEMORRHOIDS 06/12/2016 SUKI HERNANDEZ MD, Ot K21.0 GASTRO-ESOPHAGEAL REFLUX DISEASE WITH ES 06/12/2016 SUKI HERNANDEZ MD, Ot K29.70 GASTRITIS, UNSPECIFIED, WITHOUT BLEEDING 06/12/2016 SUKI HERNANDEZ MD, Ot K44.9 DIAPHRAGMATIC HERNIA WITHOUT OBSTRUCTION 06/12/2016 SUKI HERNANDEZ MD Ot K57.90 DVRTCLOS OF INTEST, PART UNSP, W/O PERF 06/12/2016 SUKI HERNANDEZ MD, Ot K63.5 POLYP OF COLON 06/12/2016 SUKI HERNANDEZ MD, Ot K64.8 OTHER HEMORRHOIDS 06/12/2016 SUKI HERNANDEZ MD, Ot K21.0 GASTRO-ESOPHAGEAL REFLUX DISEASE WITH ES 06/12/2016 SUKI HERNANDEZ MD, Ot K29.70 GASTRITIS, UNSPECIFIED, WITHOUT BLEEDING 06/12/2016 SUKI HERNANDEZ MD, Ot K44.9 DIAPHRAGMATIC HERNIA WITHOUT OBSTRUCTION 06/12/2016 SUKI HERNANDEZ MD, Ot K57.90 DVRTCLOS OF INTEST, PART UNSP, W/O PERF 06/12/2016 SUKI HERNANDEZ MD, Ot K63.5 POLYP OF COLON 06/12/2016 SUKI HERNANDEZ MD, Ot K64.8 OTHER HEMORRHOIDS Procedures Results Test Result Range Complete blood [...] SEE COMMENTS NRG QUANTITY OF GROWTH Isolated NRG Bacterial blood culture [id number] NR Capillary blood glucose measurement by glucometer (mass/volume) [...] FOR INFLUENZA A AND B ANTIGENS BY [facility] Comprehensive metabolic panel - 05/12/16 13:00 Serum [...] calculation of estimated glomerular filtration rate > [facility] Serum or plasma glucose measurement [...] FOR INFLUENZA A AND B ANTIGENS BY [facility] Complete blood count (CBC) with automated white blood cell (WBC) differential - 06/21/16 18:00 Blood leukocytes automated count (number/volume) 6.6 10*3/ uL 4.3-11.0 Blood erythrocytes automated count (number/volume) 4.41 10*6 /uL 4.35-5.85 Venous blood hemoglobin measurement (mass/volume) 13.2 g/dL 13.3-17.7 Blood hematocrit (volume fraction) 39 [...] [foz_us ] 7.4-10.4 Automated blood neutrophils/100 leukocytes 59 % 42-75 Automated blood lymphocytes/100 leukocytes 29 % 12-44 Blood monocytes/100 leukocytes 10 % 0-12 Automated blood eosinophils/100 leukocytes 2 % 0-10 Automated blood basophils/100 leukocytes 0 % 0-10 Blood neutrophils automated count (number/volume) 3.9 10*3 1.8-7.8 Blood lymphocytes automated count (number/volume) 1.9 10*3 1.0-4.0 Blood monocytes automated count (number/volume) 0.7 10*3 0.0-1.0 Automated eosinophil count 0.1 10*3/uL 0.0-0.3 Automated blood basophil count (count/volume) 0.0 10*3/uL 0.0-0.1 Influenza virus A and B antigen detection - 06/21/16 18:00 FLU RESULT NEGATIVE FOR INFLUENZA A AND B ANTIGENS BY [facility] NRG Encounters ACCT No. Visit Date/Time Discharge Status Pt. Type Provider Facility Loc./Unit Complaint [id number] 05/19/2016 23:48:00 2016 01:25:00 DIS Emergency SHAYY DUARTE, CEASAR Brock [facility] ER COUGH MUCUS [id number] 05/12/2016 12:50:00 2016 14:00:00 DIS Emergency TOMMY BONILLA MD [facility] ER COUGH [id number] 04/26/2016 10:13:00 2016 11:05:00 DIS Outpatient ASIM LINARES [facility] REHAB NECK PAIN AND GENERALIZED WEAKNESS [id number] 03/27/2016 15:46:00 2015 19:10:00 DIS Emergency DOMINGA TOLEDO [facility] ER HEAD PAIN [id number] 01/20/2016 23:43:00 2015 00:45:00 DIS Emergency CEASAR LUCAS MD [facility] ER COUGHING, SORE THROAT [id number] 12/26/2015 22:39:00 2015 14:50:00 DIS Inpatient ROBBY HANLEY MD [facility] 4TH COPD EXACERBATION [id number] 10/16/2015 01:13:00 2015 03:12:00 DIS Emergency ROBBY LEWIS DO [facility] ER BRONCHITIS [id number] 05/26/2015 21:03:00 2015 13:32:00 DIS Inpatient MARSHAL SANDERS DO [facility] ICU CHEST PAIN [id number] 03/21/2015 17:40:00 2014 19:14:00 DIS Emergency NELY MCCABE MD [facility] ER COUGH,CONGESTION [id number] 02/24/2015 10:04:00 2014 11:26:00 DIS Emergency NIEVES ALVARADO MD [facility] ER COUGH/CHEST CONGESTION [id number] 02/17/2015 15:15:00 2014 23:59:59 CLS Outpatient ORESTES EWING MD [facility] RT COPD [id number] 02/08/2015 09:32:00 2014 23:59:59 CLS Outpatient ORESTES EWING MD [facility] RAD PNEUMONIA [id number] 12/25/2014 21:55:00 2014 01:26:00 DIS Emergency CEASAR LUCAS MD [facility] ER CONGESTION [id number] 12/07/2014 12:22:00 2014 23:59:59 CLS Outpatient ORESTES EWING MD [facility] RAD CHRONIC LUMBAR PAIN, [id number] 09/02/2014 09:12:00 2014 10:55:00 DIS Emergency WERNERBOZENA CREDIT COLLECTIONS CLERK [facility] ER COUGH [id number] 03/01/2014 08:12:00 2013 23:59:59 CLS Outpatient LELAND DUARTE FACC, CARLOS ANGEL CCDS [facility] CARD CHEST DISCOMFORT, HTN,HLP [id number] 01/15/2014 09:24:00 2013 11:33:00 DIS Emergency ELIOT DUARTE, NELY Craft [facility] ER NOSE BLEED [id number] 11/08/2013 07:59:00 2013 23:59:59 CLS Outpatient AYLIN SANTACRUZ MD [facility] REHAB ARTHRITIS PAIGE KNEES [id number] 07/28/2013 01:14:00 2013 02:48:00 DIS Emergency CHRISTIANO DUARTE, NIEVES Luis [facility] ER COUGHING [id number] 04/21/2013 01:15:00 2013 04:07:00 DIS Emergency SHAYY DUARTE, CEASAR Brock [facility] ER COUGH,CHEST HURTS [id number] 01/22/2013 09:02:00 2012 23:59:59 CLS Outpatient JUVENAL CLEANING [facility] LAB HYPERTENSION,HYPERLIPIDEMIA, STAT[place] [id number] 09/18/2012 09:01:00 2012 23:59:59 CLS Outpatient JUVENAL CLEANING [facility] LAB HYPERLIPADEMIA,HYPERTENSION [id number] 06/21/2016 18:10:00 Document Registration [id number] 06/05/2016 09:09:00 ACT Outpatient SUKI HERNANDEZ MD [facility] ENDO HISTORY POLYPS;REFLUX [id number] 06/03/2016 05:42:00 ACT Outpatient SUKI HERNANDEZ MD [facility] PREOP HISTORY POLYPS;REFLUX [id number] 03/04/2016 05:48:00 ACT Outpatient SUKI HERNANDEZ MD [facility] PREOP HISTORY POLYPS;REFLUX [id number] 05/31/2015 11:38:00 ACT Outpatient SABRINA MARKS DO [facility] RT COPD [id number] 05/10/2015 11:15:00 ACT Outpatient SABRINA MARKS DO [facility] RAD COPD,DYSPNEA [id number] 03/28/2015 11:18:00 ACT Outpatient MALIHANATHANIEL APRN [facility] LAB HEMOPTYSIS [id number] 05/20/2014 09:13:00 Document Registration [id number] 05/20/2012 08:16:00 Document Registration [id number] 03/30/2012 09:19:00 Document Registration [id number] 11/21/2011 08:31:00 Document Registration [id number] 09/24/2011 08:32:00 Document Registration [id number] 05/27/2011 08:59:00 Document Registration [id number] 04/19/2011 04:28:00 Document Registration [id number] 04/18/2011 21:37:00 Document Registration [id number] 04/06/2011 23:50:00 Document Registration [id number] 03/25/2011 23:56:00 Document Registration [id number] 03/25/2011 18:29:00 Document Registration [id number] 02/23/2011 00:49:00 Document Registration [id number] 01/31/2011 08:03:00 Document Registration [id number] 01/28/2011 01:57:00 Document Registration [id number] 10/15/2010 09:20:00 Document Registration [id number] 10/06/2010 00:41:00 Document Registration [id number] 09/17/2010 00:40:00 Document Registration [id number] 03/22/2010 07:50:00 Document Registration [id number] 03/15/2010 14:00:00 Document Registration [id number] 02/25/2010 11:47:00 Document Registration [id number] 10/08/2009 23:41:00 Document Registration [id number] 04/24/2007 14:30:00 Document Registration
--- OUTSIDE RECORDS SUMMARY | 2016-06-23 13:21 | XMS REPORT ---
Author Author ASIM LINARES Organization [employer] Address Unknown Phone Unavailable Care Team Providers Care Stave Saw Operator Name Role Phone ASIM LINARES CP Unavailable Allergies No Known Allergies Problems Problem Type Condition Code Onset Dates Condition Status Problem Anxiety F41.9 Active Problem Hypoxia R09.02 Active Problem Gastroesophageal reflux disease, esophagitis presence not specified K21.9 Active Problem Allergic rhinitis, unspecified allergic rhinitis trigger, unspecified rhinitis seasonality J30.9 Active Problem Mixed hyperlipidemia E78.2 Active Problem Essential hypertension I10 Active Problem Onychia of toe, unspecified laterality L03.039 Active Problem Type 2 diabetes mellitus with diabetic neuropathy, without long-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 Active Problem Eye drainage H57.8 Active Problem Chronic obstructive pulmonary disease, unspecified COPD type J44.9 Active Problem Arthritis of both knees M19.90 Active Problem Dementia without behavioral disturbance, unspecified dementia type F03.90 Active Medications Medication Code System Code Instructions Start Date End Date Status Dosage Levocetirizine Dihydrochloride [facility] [address]-51 5 mg Orally Once a day at hs 1 tablet in the evening Results No Known Results Summary Purpose [employer] Submission
--- OUTSIDE RECORDS SUMMARY | 2016-06-23 13:21 | XMS REPORT ---
Author Author ARAM JEWELL [facility] [employer] Address Unknown Phone Unavailable Care Team Providers Care Print Support Specialist Name Role Phone ARAM JEWELL CP Unavailable Allergies No Known Allergies Problems Problem Type Condition Code Onset Dates Condition Status Problem Hypoxia R09.02 Active Problem Eye drainage H57.8 Active Problem Chronic obstructive pulmonary disease, unspecified COPD type J44.9 Active Problem Unspecified asthma with (acute) exacerbation J45.901 Active Problem Type 2 diabetes mellitus with diabetic neuropathy, without long-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 Active Problem Chronic obstructive pulmonary disease with (acute) exacerbation J44.1 Active Problem Arthritis of both knees M19.90 Active Problem Dementia without behavioral disturbance, unspecified dementia type F03.90 Active Problem Essential hypertension I10 Active Problem Onychia of toe, unspecified laterality L03.039 Active Problem Allergic rhinitis, unspecified allergic rhinitis trigger, unspecified rhinitis seasonality J30.9 Active Problem Mixed hyperlipidemia E78.2 Active Assessment Acute medial meniscus tear, right, initial encounter S83.241A Active Problem Anxiety F41.9 Active Assessment Arthritis of both knees M19.90 Active Problem Gastroesophageal reflux disease, esophagitis presence not specified K21.9 Active Medications No Known Medications Procedures Procedure Coding System Code Date [facility] VISIT ESTABLISHED PATIENT CPT-4 G0467 Jan 18, 2016 Office Visit, Est Pt., Level 3 CPT-4 51416 Jan 18, 2016 X-RAY EXAM OF KNEES CPT-4 45866 Jan 18, 2016 Vital Signs Date/Time: Jan 18, 2016 Blood Pressure Diastolic 70 mmHg Blood Pressure Systolic 130 mmHg Height 72 in Results Name Result Date Reference Range Unit Abnormality Flag Xray : Knees, Bilateral (IN HOUSE) Summary Purpose [employer] Submission
--- OUTSIDE RECORDS SUMMARY | 2016-06-23 13:21 | XMS REPORT ---
Author Author ASIM LINARES Organization [employer] Address Unknown Phone Unavailable Care Team Providers Care Supervisor Con[employer] Finishing Name Role Phone ASIM LINARES CP Unavailable [...] Instructions Start Date End Date Status Dosage Tramadol HCl [facility] [address]-07 50 mg Orally every 12 hrs 1 tablet as needed Results No Known Results Summary Purpose [employer] Submission
--- OUTSIDE RECORDS SUMMARY | 2016-06-23 13:22 | XMS REPORT ---
Author Author ASIM LINARES Organization [facility] Address [address] [place] [address] Care Team Providers Care Scrap Breaker Name Role Phone ASIM LINARES Unavailable PROBLEMS Type Condition ICD9-CM Code [id number] Code Onset Dates Condition Status SNOMED Code Problem Chronic obstructive pulmonary disease, unspecified COPD type J44.9 Active 33718390 Problem Dementia without behavioral disturbance, unspecified dementia type F03.90 Active 54350170 Problem Eye drainage H57.8 Active 34744402 Problem Chronic obstructive pulmonary disease with (acute) exacerbation J44.1 Active 814530060 Problem Unspecified asthma with (acute) exacerbation J45.901 Active 613928805 Problem Onychia of toe, unspecified laterality L03.039 Active 615441668 Problem Arthritis of both knees M19.90 Active 160158727 Problem Type 2 diabetes mellitus with diabetic neuropathy, without long-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 Active 44044185 Problem Essential hypertension I10 Active 03571354 Problem Mixed hyperlipidemia E78.2 Active 126402351 Problem Anxiety F41.9 Active 75297061 Problem Gastroesophageal reflux disease, esophagitis presence not specified K21.9 Active 632249593 Problem Allergic rhinitis, unspecified allergic rhinitis trigger, unspecified rhinitis seasonality J30.9 Active 15661612 Problem Hypoxia R09.02 Active 380512287 ALLERGIES Unknown Allergies SOCIAL HISTORY No smoking Hx information available PLAN OF CARE VITAL SIGNS MEDICATIONS Unknown Medications RESULTS No Results PROCEDURES No Known procedures IMMUNIZATIONS No Known Immunizations
--- OUTSIDE RECORDS SUMMARY | 2016-06-23 13:23 | XMS REPORT ---
Author Author TALON ROBBY Organization [facility] Address [address] [place] [address] Care Team Providers Care Lehr Operator Name Role Phone ROBBY HANLEY Unavailable PROBLEMS Type Condition ICD9-CM Code MPU34-DH Code Onset Dates Condition Status SNOMED Code Problem Gastroesophageal reflux disease, esophagitis presence not specified K21.9 Active 082523657 Problem Chronic obstructive pulmonary disease, unspecified COPD type J44.9 Active 30255847 Problem Hypoxia R09.02 Active 026365135 Problem Allergic rhinitis, unspecified allergic rhinitis trigger, unspecified rhinitis seasonality J30.9 Active 17315976 Problem Mixed hyperlipidemia E78.2 Active 048159401 Problem Anxiety F41.9 Active 22991904 Problem Type 2 diabetes mellitus with diabetic neuropathy, without long-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 Active 00228139 Problem Essential hypertension I10 Active 67135194 Problem Dementia without behavioral disturbance, unspecified dementia type F03.90 Active 46003378 Problem Eye drainage H57.8 Active 49656196 Problem Onychia of toe, unspecified laterality L03.039 Active 108705939 Problem Arthritis of both knees M19.90 Active 142171990 ALLERGIES Unknown Allergies SOCIAL HISTORY No smoking Hx information available PLAN OF CARE VITAL SIGNS MEDICATIONS Medication Instructions Dosage Frequency Start Date End Date Duration Status Exelon 4.6 MG/24HR Transdermal Once a day 1 patch to skin 24h Active Cyanocobalamin 500 MCG Orally Once a day 1 lozenge 24h Active Spiriva HandiHaler 18 MCG Active Benazepril HCl 20 MG Orally Once a day 1 tablet 24h Active Oxybutynin Chloride ER 15 MG Orally Once a day 1 tablet 24h Active Lyrica 100 MG Orally Twice a day 1 capsule 12h Active Sucralfate 1 GM Orally 4x a day 1 tablet on an empty stomach Active PredniSONE 5 mg Orally Once a day for 5 days 1 tablet Nov,Dec Active Coricidin HBP Day/Night Cold 10-20 &15-200-2 MG Active Viibryd 10 MG Orally Once a day 1 tablet with food 24h Active Albuterol Sulfate (2.5 MG/3ML) 0.083% Inhalation every 4 hours as needed 3 ml Active Levocetirizine Dihydrochloride 5 MG Orally Once a day 1 tablet in the evening 24h Active Tramadol HCl 50 mg Orally every 12 hrs 1 tablet as needed 12h Active Pantoprazole Sodium 40 MG Orally Once a day 1 tablet 24h Active Montelukast Sodium 10 MG Orally Once a day 1 tablet in the evening 24h Active Amlodipine Besylate 10 MG Orally Once a day 1 tablet 24h Active Fish Oil 1000 MG Orally Twice a day 1 capsule 12h Active Atorvastatin Calcium 40 MG Orally Once a day 1 tablet 24h Active Metformin HCl 500 MG Orally Twice a day 1/2 tablet 12h Active Oxygen Active Doxazosin Mesylate 4 MG Orally Once a day 1 tablet 24h Active GlipiZIDE 5 MG Orally Once a day 1 tablet 24h Active Azithromycin 250 MG Orally Once a day for 3 days 1 tablet Nov, Dec, Active Clonazepam 1 MG Orally 3x a day prn 1 tablet Active RESULTS No Results PROCEDURES No Known procedures IMMUNIZATIONS No Known Immunizations
--- OUTSIDE RECORDS SUMMARY | 2016-06-23 13:23 | XMS REPORT ---
Author Author ASIM LINARES Organization [employer] Address Unknown Phone Unavailable Care Team Providers Care Clinical Pharmacy Manager Name Role Phone ASIM LINARES CP Unavailable [...] Active Problem Mixed hyperlipidemia E78.2 Active Problem Anxiety F41.9 Active Problem Gastroesophageal reflux disease, esophagitis presence not specified K21.9 Active Medications Medication Code System Code Instructions Start Date End Date Status Dosage Benazepril HCl [facility] [address]-87 20 mg Orally Once a day 1 tablet Metformin HCl [facility] [address]-92 500 MG Orally Twice a day 1/2 tablet Results No Known Results Summary Purpose [employer] Submission
--- OUTSIDE RECORDS SUMMARY | 2016-06-23 13:23 | XMS REPORT ---
Author Author ASIM LINARES Organization [employer] Address Unknown Phone Unavailable Care Team Providers Care Wood Boatbuilder Name Role Phone ASIM LINARES CP Unavailable [...] disturbance, unspecified dementia type F03.90 Active Medications No Known Medications Results No Known Results Summary Purpose [employer] Submission
--- OUTSIDE RECORDS SUMMARY | 2016-06-23 13:23 | XMS REPORT ---
Author Author ELVIA CROSS [facility] [employer] Address Unknown Phone Unavailable Care Team Providers Care Biochemical Development Engineer Name Role Phone ELVIA CROSS CP Unavailable Allergies, Adverse Reactions, Alerts Substance Reaction Event Type Hydrocodone-Acetaminophen Info Not Available Drug Allergy Codeine Sulfate Info Not Available Drug Allergy Aspirin Info Not Available Drug Allergy Problems Problem Type Condition Code Onset Dates [...] Active Problem Mixed hyperlipidemia E78.2 Active Assessment Chronic obstructive pulmonary disease with (acute) exacerbation J44.1 Active Problem Anxiety F41.9 Active Assessment Unspecified asthma with (acute) exacerbation J45.901 Active Problem Gastroesophageal reflux disease, esophagitis presence not specified K21.9 Active Medications Medication Code System Code Instructions Start Date End Date Status Dosage Montelukast Sodium [facility] [address]-76 10 MG Orally Once a day 1 tablet in the evening Atorvastatin Calcium [facility] [address]-87 40 MG Orally Once a day 1 tablet PredniSONE [facility] [address]-73 50 MG Orally Once a day Jan 18, 2016 Jan 23, 2016 1 tablet Benazepril HCl [facility] [address]-06 20 MG Orally Once a day 1 tablet Sucralfate [facility] [address]-17 1 GM Orally 4 times a day prn 1 tablet on an empty stomach Lyrica [facility] [address]-08 100 MG Orally Twice a day 1 capsule Pantoprazole Sodium [facility] [address]-48 40 MG Orally Once a day 1 tablet GlipiZIDE [facility] [address]-78 5 MG Orally Once a day 1 tablet Doxazosin Mesylate [facility] [address]-30 4 MG Orally Once a day 1 tablet Sennosides [facility] [address]-80 15 MG Orally Once a day 1 tablet at bedtime as needed Senna NDC 0 - Orally not defined Tramadol HCl [facility] [address]-23 50 mg Orally every 12 hrs 1 tablet as needed Oxygen NDC 0 not defined Spiriva HandiHaler [facility] [address]-61 18 MCG Inhalation not defined Coricidin HBP Day/Night Cold [facility] [address] 10-20 &15-200-2 MG Orally not defined Amlodipine Besylate [facility] [address]-22 10 MG Orally Once a day 1 tablet Levaquin [facility] [address]-81 500 MG Orally Once a day Jan 18, 2016 Jan 25, 2016 1 tablet Albuterol Sulfate [facility] [address]-51 (2.5 MG/3ML) 0.083% Inhalation every 4 hours as needed 3 ml Exelon [facility] [address]-89 4.6 MG/24HR Transdermal Once a day 1 patch to skin Metformin HCl [facility] [address]-44 500 MG Orally Twice a day 1/2 tablet Cyanocobalamin [facility] [address]61 500 MCG Orally Once a day 1 lozenge Oxybutynin Chloride ER [facility] [address]-89 15 MG Orally Once a day 1 tablet Viibryd [facility] [address]-77 10 mg Orally Once a day 1 tablet with food Fish Oil [facility] [address]-06 1000 MG Orally Twice a day 1 capsule Levocetirizine Dihydrochloride [facility] [address]-14 5 mg Orally Once a day at hs 1 tablet in the evening Clonazepam [facility] [address]-63 1 MG Orally 3 times a day must last 28 days 1 tablet Procedures Procedure Coding System Code Date Office Visit, Est Pt., Level 3 CPT-4 15775 Jan 18, 2016 [facility] VISIT ESTABLISHED PATIENT CPT-4 G0467 Jan 18, 2016 Vital Signs Date/Time: Jan 18, 2016 Cardiac Monitoring Heart Rate 80 bpm Weight 234.0 lbs Height 72 in BMI 31.73 Index Blood Pressure Diastolic 60 mmHg Blood Pressure Systolic 124 mmHg Results No Known Results Summary Purpose [employer] Submission
--- OUTSIDE RECORDS SUMMARY | 2016-06-23 13:23 | XMS REPORT ---
Author Author ASIM LINARES Organization [employer] Address Unknown Phone Unavailable Care Team Providers Care Valet Parker Name Role Phone ASIM LINARES CP Unavailable [...] Instructions Start Date End Date Status Dosage Clonazepam [facility] [address]-67 1 MG Orally 3x a day prn must last 28 days 1 tablet Tramadol HCl [facility] [address]-28 50 mg Orally every 12 hrs mujst last 28 days 1 tablet as needed Results No Known Results Summary Purpose [employer] Submission
--- OUTSIDE RECORDS SUMMARY | 2016-06-23 13:24 | XMS REPORT ---
Author Author ASIM LINARES Organization [employer] Address Unknown Phone Unavailable Care Team Providers Care Housekeeper Child Care Name Role Phone ASIM LINARES CP Unavailable [...] Instructions Start Date End Date Status Dosage Doxazosin Mesylate [facility][NOTE 3] [address]-93 4 MG Orally Once a day 1 tablet Results No Known Results Summary Purpose [employer] Submission
--- OUTSIDE RECORDS SUMMARY | 2016-06-23 13:24 | XMS REPORT ---
Author Author ASIM LINARES [facility] e[employer] Address Unknown Phone Unavailable Care Team Providers Care Anaesthetic Technician Name Role Phone ASIM LINARES CP Unavailable [...] Instructions Start Date End Date Status Dosage Sucralfate [facility] [address]-96 1 GM Orally 4 times a day prn 1 tablet on an empty stomach Results No Known Results Summary Purpose [employer]Works Submission
--- OUTSIDE RECORDS SUMMARY | 2016-06-23 13:24 | XMS REPORT ---
Author Author ASIM LINARES Organization [employer] Address Unknown Phone Unavailable Care Team Providers Care Bed Laborer Name Role Phone ASIM LINARES CP Unavailable [...]
--- OUTSIDE RECORDS SUMMARY | 2016-06-23 13:24 | XMS REPORT ---
Author Author ASIM LINARES [facility] eClinical[employer] Address Unknown Phone Unavailable Care Team Providers Care State Archivist Name Role Phone ASIM LINARES CP Unavailable Allergies, Adverse Reactions, Alerts Substance Reaction Event Type Hydrocodone-Acetaminophen Info Not Available Drug Allergy Codeine Sulfate Info Not Available Drug Allergy Aspirin Info Not Available Drug Allergy Problems Problem Type Condition Code Onset Dates Condition Status Problem Anxiety F41.9 Active Problem Hypoxia R09.02 Active Problem Gastroesophageal reflux disease, esophagitis presence not specified K21.9 Active Problem Essential hypertension I10 Active Problem Onychia of toe, unspecified laterality L03.039 Active Problem Type 2 diabetes mellitus with diabetic neuropathy, without long-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 Active Problem Eye drainage H57.8 Active Problem Chronic obstructive pulmonary disease, unspecified COPD type J44.9 Active Problem Arthritis of both knees M19.90 Active Problem Dementia without behavioral disturbance, unspecified dementia type F03.90 Active Assessment History of pneumonia Z87.01 Active Problem Allergic rhinitis, unspecified allergic rhinitis trigger, unspecified rhinitis seasonality J30.9 Active Problem Mixed hyperlipidemia E78.2 Active Medications Medication Code System Code Instructions Start Date End Date Status Dosage GlipiZIDE [facility] [address]-79 5 MG Orally Once a day 1 tablet Amlodipine Besylate [facility] [address]-63 10 MG Orally Once a day 1 tablet Benazepril HCl [facility] [address]-12 20 MG Orally Once a day 1 tablet Montelukast Sodium [facility] [address]-42 10 MG Orally Once a day 1 tablet in the evening Pantoprazole Sodium [facility] [address]-99 40 MG Orally Once a day 1 tablet Viibryd [facility] [address]-96 10 MG Orally Once a day 1 tablet with food Spiriva HandiHaler [facility] [address]-02 18 MCG Inhalation not defined Cyanocobalamin [facility] [address]39[address]178 500 MCG Orally Once a day 1 lozenge Metformin HCl [facility] [address]-46 500 MG Orally Twice a day 1/2 tablet Atorvastatin Calcium [facility] [address]-51 40 MG Orally Once a day 1 tablet Albuterol Sulfate [facility] [address]-67 (2.5 MG/3ML) 0.083% Inhalation every 4 hours as needed 3 ml Sennosides [facility] [address]-09 15 MG Orally Once a day 1 tablet at bedtime as needed Clonazepam [facility] [address]-81 1 MG Orally 3 times a day must last 28 days 1 tablet Sucralfate [facility] [address]-50 1 GM Orally 4 times a day prn 1 tablet on an empty stomach Coricidin HBP Day/Night Cold [facility] 33961-97729 10-20 &15-200-2 MG Orally not defined Tramadol HCl [facility] [address]-29 50 mg Orally every 12 hrs 1 tablet as needed Lyrica [facility] [address]-86 100 MG Orally Twice a day 1 capsule Oxybutynin Chloride ER [facility] [address]-58 15 MG Orally Once a day 1 tablet Doxazosin Mesylate [facility] [address]-24 4 MG Orally Once a day 1 tablet Senna NDC 0 - Orally not defined Fish Oil [facility] [address]-22 1000 MG Orally Twice a day 1 capsule Exelon [facility] [address]-48 4.6 MG/24HR Transdermal Once a day 1 patch to skin Oxygen NDC 0 not defined Levocetirizine Dihydrochloride [facility] [address]-21 5 mg Orally Once a day at hs 1 tablet in the evening Procedures Procedure Coding System Code Date Office Visit, Est Pt., Level 3 CPT-4 22199 Jan 09, 2016 [facility] VISIT ESTABLISHED PATIENT CPT-4 G0467 Jan 09, 2016 Vital Signs Date/Time: Jan 09, 2016 Cardiac Monitoring Heart Rate 82 bpm Weight 236.2 lbs Height 72 in BMI 32.03 Index Blood Pressure Diastolic 68 mmHg Blood Pressure Systolic 126 mmHg Results No Known Results Summary Purpose [employer]ClinicalWorks Submission
--- OUTSIDE RECORDS SUMMARY | 2016-06-23 13:24 | XMS REPORT ---
Author Author ASIM LINARES Organization [employer] Address Unknown Phone Unavailable Care Team Providers Care Donkey Ride Operator Name Role Phone ASIM LINARES CP [...] specified K21.9 Active Medications No Known Medications Results No Known Results Summary Purpose [employer]Works Submission
--- OUTSIDE RECORDS SUMMARY | 2016-06-23 13:26 | XMS REPORT ---
Author Author ASIM LINARES Organization [employer] Address Unknown Phone Unavailable Care Team Providers Care Metal Roofer Name Role Phone ASIM LINARES CP Unavailable [...]
--- OUTSIDE RECORDS SUMMARY | 2016-06-23 13:26 | XMS REPORT ---
Author Author ROBBY HANLEY [employer] Address Unknown Phone Unavailable Care Team Providers Care Checker Dump Grounds Name Role Phone ROBBY HANLEY CP Unavailable Allergies, Adverse Reactions, Alerts Substance [...] hyperlipidemia E78.2 Active Problem Anxiety F41.9 Active Assessment Tinea pedis of both feet B35.3 Active Problem Gastroesophageal reflux disease, esophagitis presence not specified K21.9 Active Medications Medication Code System Code Instructions Start Date End Date Status Dosage Pantoprazole Sodium [facility] [address]-47 40 MG Orally Once a day 1 tablet Clotrimazole [facility] [address]-74 1 % Externally Twice a day Feb 08, 2016 Apr 04, 2016 1 application to affected area Benazepril HCl [facility] [address]-59 20 MG Orally Once a day 1 tablet Tramadol HCl [facility] [address]-59 50 mg Orally every 12 hrs 1 tablet as needed Oxybutynin Chloride ER [facility] [address]-12 15 MG Orally Once a day 1 tablet Sennosides [facility] [address]-61 15 MG Orally Once a day 1 tablet at bedtime as needed Senna [facility] 0 - Orally not defined Fish Oil [facility] [address]-09 1000 MG Orally Twice a day 1 capsule Amlodipine Besylate [facility] [address]-00 10 MG Orally Once a day 1 tablet GlipiZIDE [facility] [address]-72 5 MG Orally Once a day 1 tablet Symbicort [facility] [address]-71 80-4.5 MCG/ACT Inhalation Twice a day 2 puffs Oxygen ND 0 not defined Cyanocobalamin [facility] [address]65 500 MCG Orally Once a day 1 lozenge Doxazosin Mesylate [facility] [address]-22 4 MG Orally Once a day 1 tablet Clonazepam [facility] [address]-05 1 MG Orally 3x a day prn 1 tablet Levocetirizine Dihydrochloride [facility] [address]-80 5 MG Orally Once a day 1 tablet in the evening Albuterol Sulfate [facility] [address]-74 (2.5 MG/3ML) 0.083% Inhalation every 4 hours as needed 3 ml Atorvastatin Calcium [facility] [address]-89 40 MG Orally Once a day 1 tablet Sucralfate [facility] [address]-36 1 GM Orally 4x a day 1 tablet on an empty stomach Lyrica [facility] [address]-32 100 MG Orally Twice a day 1 capsule Viibryd [facility] [address]-72 10 MG Orally Once a day 1 tablet with food Exelon [facility] [address]-08 4.6 MG/24HR Transdermal Once a day 1 patch to skin Spiriva HandiHaler [facility] [address]-20 18 MCG Inhalation not defined Metformin HCl [facility] [address]-61 500 MG Orally Twice a day 1/2 tablet Montelukast Sodium [facility] [address]-03 10 MG Orally Once a day 1 tablet in the evening Coricidin HBP Day/Night Cold [facility] [address]4876 10-20 &15-200-2 MG Orally not defined Procedures Procedure Coding System Code Date Office Visit, Est Pt., Level 3 CPT-4 22783 Feb 08, 2016 [facility] VISIT ESTABLISHED PATIENT CPT-4 G0467 Feb 08, 2016 Vital Signs Date/Time: Feb 08, 2016 Cardiac Monitoring Heart Rate 80 bpm Weight 233 lbs Height 72 in BMI 31.60 Index Blood Pressure Diastolic 70 mmHg Blood Pressure Systolic 140 mmHg Results No Known Results Summary Purpose eClinicalWorks Submission
--- OUTSIDE RECORDS SUMMARY | 2016-06-23 13:26 | XMS REPORT ---
Author Author ASIM LINARES Organization [employer] Address Unknown Phone Unavailable Care Team Providers Care Suction Dredge Dumping Supervisor Name Role Phone ASIM LINARES CP Unavailable [...]
--- OUTSIDE RECORDS SUMMARY | 2016-06-23 13:26 | XMS REPORT ---
Author Author ASIM LINARES Organization [facility] Address [address] [place] [address] Care Team Providers Care Esters And Emulsifiers Supervisor Name Role Phone ASIM LINARES Unavailable PROBLEMS Type Condition ICD9-CM Code [id number] Code Onset Dates Condition Status SNOMED Code Problem Chronic obstructive pulmonary disease, unspecified COPD type J44.9 Active 62131536 Problem Dementia without behavioral disturbance, unspecified dementia type F03.90 Active 90309861 Problem Eye drainage H57.8 Active 39769041 Problem Chronic obstructive pulmonary disease with (acute) exacerbation J44.1 Active 613931073 Problem Unspecified asthma with (acute) exacerbation J45.901 Active 009772216 Problem Onychia of toe, unspecified laterality L03.039 Active 139991456 Problem Arthritis of both knees M19.90 Active 551037635 Problem Type 2 diabetes mellitus with diabetic neuropathy, without long-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 Active 25725640 Problem Essential hypertension I10 Active 53015252 Problem Mixed hyperlipidemia E78.2 Active 073927434 Problem Anxiety F41.9 Active 72760129 Problem Gastroesophageal reflux disease, esophagitis presence not specified K21.9 Active 846002922 Problem Allergic rhinitis, unspecified allergic rhinitis trigger, unspecified rhinitis seasonality J30.9 Active 28573809 Problem Hypoxia R09.02 Active 688875513 ALLERGIES Unknown Allergies SOCIAL HISTORY No smoking Hx information available PLAN OF CARE VITAL SIGNS MEDICATIONS Medication Instructions Dosage Frequency Start Date End Date Duration Status Clonazepam 1 MG Orally 3x a day prn must last 28 days 1 tablet Active RESULTS No Results PROCEDURES No Known procedures IMMUNIZATIONS No Known Immunizations
--- OUTSIDE RECORDS SUMMARY | 2016-06-23 13:27 | XMS REPORT ---
Author Author ASIM LINARES Organization [facility] Address [address] [place] [address] Care Team Providers Care Aircraft Load Controller Name Role Phone ASIM LINARES Unavailable PROBLEMS Type Condition ICD9-CM Code YTN13-EQ Code Onset Dates Condition Status SNOMED Code Problem Chronic obstructive pulmonary disease, unspecified COPD type J44.9 Active 66999066 Problem Dementia without behavioral disturbance, unspecified dementia type F03.90 Active 53269028 Problem Eye drainage H57.8 Active 13312323 Problem Chronic obstructive pulmonary disease with (acute) exacerbation J44.1 Active 957592585 Problem Unspecified asthma with (acute) exacerbation J45.901 Active 753737193 Problem Onychia of toe, unspecified laterality L03.039 Active 347703214 Problem Arthritis of both knees M19.90 Active 034865460 Problem Type 2 diabetes mellitus with diabetic neuropathy, without long-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 Active 45978154 Problem Essential hypertension I10 Active 60723130 Problem Mixed hyperlipidemia E78.2 Active 316597288 Problem Anxiety F41.9 Active 28213027 Problem Gastroesophageal reflux disease, esophagitis presence not specified K21.9 Active 943124249 Problem Allergic rhinitis, unspecified allergic rhinitis trigger, unspecified rhinitis seasonality J30.9 Active 35651530 Problem Hypoxia R09.02 Active 958252574 ALLERGIES Unknown Allergies SOCIAL HISTORY No smoking Hx information available PLAN OF CARE VITAL SIGNS MEDICATIONS Medication Instructions Dosage Frequency Start Date End Date Duration Status Clonazepam 1 MG Orally 3x a day prn must last 28 days 1 tablet Active RESULTS No Results PROCEDURES No Known procedures IMMUNIZATIONS No Known Immunizations
--- OUTSIDE RECORDS SUMMARY | 2016-06-23 13:27 | XMS REPORT ---
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 Active 61637922 Problem Essential hypertension I10 Active 91978869 Problem Dementia without behavioral disturbance, unspecified dementia type F03.90 Active 81724263 Problem Eye drainage H57.8 Active 65136714 Problem Onychia of toe, unspecified laterality L03.039 Active 961313696 Problem Arthritis of both knees M19.90 Active 677417491 Assessment Type 2 diabetes mellitus with diabetic neuropathy, without long- 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 Nov, Active 86616301 Problem Allergic rhinitis, unspecified allergic rhinitis trigger, unspecified rhinitis seasonality J30.9 Active 15100844 Problem Mixed hyperlipidemia E78.2 Active 594376141 Assessment Encounter for immunization Z23 Nov, Active 159769042 Problem Anxiety F41.9 Active 56388365 ALLERGIES Substance Reaction Event Type Date Status Hydrocodone-Acetaminophen Unknown Drug Allergy Nov, Active Codeine Sulfate Unknown Drug Allergy Nov, Active Aspirin Unknown Drug Allergy Nov, Active SOCIAL HISTORY No smoking Hx information available PLAN OF CARE VITAL SIGNS Height 72 in 2015-12-21 Weight 239 lbs 2015-12-21 Heart Rate 80 bpm 2015-12-21 Respiratory Rate 20 2015-12-21 BMI 32.41 kg/m2 2015-12-21 Blood pressure systolic 138 mmHg 2015-12-21 Blood pressure diastolic 78 mmHg 2015-12-21 MEDICATIONS Medication Instructions Dosage Frequency Start Date End Date Duration Status Ipratropium-Albuterol 0.5-2.5 (3) MG/3ML Inhalation every 6 hrs 3 ml 6h Active Tramadol HCl 50 mg Orally every 12 hrs 1 tablet as needed 12h Active Oxygen Active Montelukast Sodium 10 MG Orally Once a day 1 tablet in the evening 24h Active GlipiZIDE 5 MG Orally Once a day 1 tablet 24h Active Pantoprazole Sodium 40 MG Orally Once a day 1 tablet 24h Active Fish Oil 1000 MG Orally Twice a day 1 capsule 12h Active Exelon 4.6 MG/24HR Transdermal Once a day 1 patch to skin 24h Active Lyrica 100 MG Orally Twice a day 1 capsule 12h Active Oxybutynin Chloride ER 15 MG Orally Once a day 1 tablet 24h Active Metformin HCl 500 MG Orally Twice a day 1 tablet with meals 12h Active Coricidin HBP Day/Night Cold 10-20 &15-200-2 MG Active Levocetirizine Dihydrochloride 5 MG Orally Once a day 1 tablet in the evening 24h Active Doxazosin Mesylate 4 MG Orally Once a day 1 tablet 24h Active Clonazepam 1 MG Orally 3x a day prn 1 tablet Active Benazepril HCl 20 MG Orally Once a day 1 tablet 24h Active Dextromethorphan-Guaifenesin 20-200 MG/5ML Active Symbicort 80-4.5 MCG/ACT Inhalation Twice a day 2 puffs 12h Active Spiriva HandiHaler 18 MCG Active Viibryd 10 MG Orally Once a day 1 tablet with food 24h Active Atorvastatin Calcium 40 MG Orally Once a day 1 tablet 24h Active Sucralfate 1 GM Orally 4x a day 1 tablet on an empty stomach Active Amlodipine Besylate 10 MG Orally Once a day 1 tablet 24h Active Tylenol PM Extra Strength 500-25 MG Orally Once a day 1 tablet at bedtime as needed 24h Active RESULTS No Results PROCEDURES Procedure Date Ordered Related Diagnosis Body Site FLUARIX QUAD P-FREE 3 AND UP .50 2015Dec 21, 2015 SINGLE IMMUNIZATION ADMIN Dec 21, 2015 Office Visit, New Pt., Level 5 Dec 21, 2015 [facility] VISIT NEW PATIENT Dec 21, 2015 IMMUNIZATIONS Vaccine Route Administration Date Status FLUARIX QUAD P-FREE 3 AND UP .50 2015 IM Intramuscular Dec 21, 2015 Administered
--- OUTSIDE RECORDS SUMMARY | 2016-06-23 13:27 | XMS REPORT ---
Author Author ASIM LINARES Organization [employer] Address Unknown Phone Unavailable Care Team Providers Care Tourist Information Officer Name Role Phone ASIM LINARES CP Unavailable [...] Start Date End Date Status Dosage Clonazepam [facility] [address]-11 1 MG Orally 3 times a day must last 28 days 1 tablet Results No Known Results Summary Purpose [employer] Submission
--- OUTSIDE RECORDS SUMMARY | 2016-06-23 13:28 | XMS REPORT ---
Author Author ASIM LINARES Organization [employer] Address Unknown Phone Unavailable Care Team Providers Care Paid Search Specialist Name Role Phone ASIM LINARES CP Unavailable [...]
--- OUTSIDE RECORDS SUMMARY | 2016-06-23 13:28 | XMS REPORT ---
Author Author ASIM LINARES Organization [employer] Address Unknown Phone Unavailable Care Team Providers Care Ordering Machine Operator Name Role Phone ASIM LINARES CP [...] Instructions Start Date End Date Status Dosage Lyrica [facility] [address]-17 100 MG Orally Twice a day 1 capsule Results No Known Results Summary Purpose [employer] Submission
--- OUTSIDE RECORDS SUMMARY | 2016-06-23 13:28 | XMS REPORT ---
Author Author ASIM LINARES Organization [employer] Address Unknown Phone Unavailable Care Team Providers Care Cordwood Cutter Name Role Phone ASIM LINARES CP Unavailable [...]
--- OUTSIDE RECORDS SUMMARY | 2016-06-23 13:28 | XMS REPORT ---
Author Author ASIM LINARES [facility] e[employer] Address Unknown Phone Unavailable Care Team Providers Care Air And Missile Defense Crewmember Name Role Phone ASIM LINARES CP Unavailable Allergies, Adverse Reactions, Alerts Substance Reaction Event Type Hydrocodone-Acetaminophen Info Not Available Drug Allergy Codeine Sulfate Info Not Available Drug Allergy Aspirin Info Not Available Drug Allergy Problems Problem Type Condition Code Onset Dates Condition Status Assessment Encounter for immunization Z23 Active Problem Anxiety F41.9 Active Assessment Allergic rhinitis, unspecified allergic rhinitis trigger, unspecified rhinitis seasonality J30.9 Active Problem Gastroesophageal reflux disease, esophagitis presence not specified K21.9 Active Assessment Mixed hyperlipidemia E78.2 Active Problem Hypoxia R09.02 Active Problem Eye drainage H57.8 Active Problem Chronic obstructive pulmonary disease, unspecified COPD type J44.9 Active Problem Unspecified asthma with (acute) exacerbation J45.901 Active Problem Type 2 diabetes mellitus with diabetic neuropathy, without long-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 Active Assessment Hypoxia R09.02 Active Assessment Gastroesophageal reflux disease, esophagitis presence not specified K21.9 Active Problem Chronic obstructive pulmonary disease with (acute) exacerbation J44.1 Active Assessment Anxiety F41.9 Active Problem Arthritis of both knees M19.90 Active Problem Dementia without behavioral disturbance, unspecified dementia type F03.90 Active Problem Essential hypertension I10 Active Problem Onychia of toe, unspecified laterality L03.039 Active Assessment Arthritis of both knees M19.90 Active Assessment Onychia of toe, unspecified laterality L03.039 Active Assessment Chronic obstructive pulmonary disease, unspecified COPD type J44.9 Active Assessment Dementia without behavioral disturbance, unspecified dementia type F03.90 Active Problem Allergic rhinitis, unspecified allergic rhinitis trigger, unspecified rhinitis seasonality J30.9 Active Problem Mixed hyperlipidemia E78.2 Active Assessment Essential hypertension I10 Active Assessment Type 2 diabetes mellitus with diabetic neuropathy, without long- 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 Active Medications Medication Code System Code Instructions Start Date End Date Status Dosage Spiriva HandiHaler [facility] [address]-20 18 MCG Inhalation not defined Symbicort [facility] [address]-71 80-4.5 MCG/ACT Inhalation Twice a day 2 puffs GlipiZIDE [facility] [address]-78 5 MG Orally Once a day 1 tablet Levocetirizine Dihydrochloride [facility] [address]-52 5 MG Orally Once a day 1 tablet in the evening Amlodipine Besylate [facility] [address]-57 10 MG Orally Once a day 1 tablet Sucralfate [facility] [address]-45 1 GM Orally 4x a day 1 tablet on an empty stomach Sennosides [facility] [address]-72 15 MG Orally Once a day 1 tablet at bedtime as needed Metformin HCl [facility] [address]-87 500 MG Orally Twice a day 1/2 tablet Fish Oil [facility] [address]-05 1000 MG Orally Twice a day 1 capsule Cyanocobalamin [facility] [address] 500 MCG Orally Once a day 1 lozenge Senna [facility] 0 - Orally not defined Benazepril HCl [facility] [address]-45 20 MG Orally Once a day 1 tablet Atorvastatin Calcium [facility] [address]-66 40 MG Orally Once a day 1 tablet Tramadol HCl [facility] [address]-11 50 mg Orally every 12 hrs 1 tablet as needed Montelukast Sodium [facility] [address]-28 10 MG Orally Once a day 1 tablet in the evening Lyrica [facility] [address]-58 100 MG Orally Twice a day 1 capsule Pantoprazole Sodium [facility] [address]-57 40 MG Orally Once a day 1 tablet Viibryd [facility] [address]-29 10 MG Orally Once a day 1 tablet with food Clonazepam [facility] [address]-22 1 MG Orally 3x a day prn 1 tablet Oxygen ND 0 not defined Coricidin HBP Day/Night Cold [facility] [address] 10-20 &15-200-2 MG Orally not defined Doxazosin Mesylate [facility] [address]-24 4 MG Orally Once a day 1 tablet Albuterol Sulfate [facility] [address]-05 (2.5 MG/3ML) 0.083% Inhalation every 4 hours as needed 3 ml Oxybutynin Chloride ER [facility] [address]-05 15 MG Orally Once a day 1 tablet Exelon [facility] [address]-89 4.6 MG/24HR Transdermal Once a day 1 patch to skin Procedures Procedure Coding System Code Date GLYCATED HEMOGLOBIN TEST CPT-4 73493 Feb 01, 2016 PCV 13 CPT-4 70659 Feb 01, 2016 MEASURE BLOOD OXYGEN LEVEL CPT-4 35475 Feb 01, 2016 [facility] VISIT ESTABLISHED PATIENT CPT-4 G0467 Feb 01, 2016 SINGLE IMMUNIZATION ADMIN CPT-4 05369 Feb 01, 2016 Office Visit, Est Pt., Level 5 CPT-4 96114 Feb 01, 2016 Vital Signs Date/Time: Feb 01, 2016 Cardiac Monitoring Heart Rate 80 bpm Weight 237 lbs Height 72 in BMI 32.14 Index Oximetry w/ oxygen:91 % Blood Pressure Diastolic 64 mmHg Blood Pressure Systolic 132 mmHg Results Name Result Date Reference Range Unit Abnormality Flag A1C (IN HOUSE) ----A1C IN HOUSE 6.2 20160201 4.3 - 5.6 % ----Previous A1c N/A [id number] ----Lot [id number] ----Exp date [id number] Immunizations Vaccine Administration Date PCV Feb 01, 2016 Summary Purpose eClinicalWorks Submission
--- OUTSIDE RECORDS SUMMARY | 2016-06-23 13:29 | XMS REPORT ---
Author Author ASIM LINARES Organization [employer] Address Unknown Phone Unavailable Care Team Providers Care Etl Bi Developer Name Role Phone ASIM LINARES CP Unavailable [...] Instructions Start Date End Date Status Dosage Viibryd [facility] [place] [address]-55 10 mg Orally Once a day 1 tablet with food Results No Known Results Summary Purpose eClinicalWorks Submission
--- OUTSIDE RECORDS SUMMARY | 2016-06-23 13:29 | XMS REPORT ---
Author Author ASIM LINARES Organization [employer] Address Unknown Phone Unavailable Care Team Providers Care Mortgage Sales Manager Name Role Phone ASIM LINARES CP [...] Instructions Start Date End Date Status Dosage Triamcinolone Acetonide [facility] [address]-95 0.1 % Externally Twice a day to as needed Feb 15, 2016 1 application to affected area Results No Known Results Summary Purpose [employer]ClinicalWorks Submission
--- OUTSIDE RECORDS SUMMARY | 2016-06-23 13:29 | XMS REPORT ---
Author Author BALDOMERO YUEN Organization [employer] Address Unknown Phone Unavailable Care Team Providers Care Coal Shoveler Name Role Phone BALDOMERO YUEN CP Unavailable Allergies, Adverse Reactions, Alerts Substance [...] disturbance, unspecified dementia type F03.90 Active Assessment Pneumonia due to infectious organism, unspecified laterality, unspecified part of lung J18.9 Active Assessment Cough R05 Active Problem Allergic rhinitis, unspecified allergic rhinitis trigger, unspecified rhinitis seasonality J30.9 Active Problem Mixed hyperlipidemia E78.2 Active Medications Medication Code System Code Instructions Start Date End Date Status Dosage Benazepril HCl [facility] [address]-41 20 MG Orally Once a day 1 tablet Lyrica [facility] [address]-44 100 MG Orally Twice a day 1 capsule Atorvastatin Calcium [facility] [address]-03 40 MG Orally Once a day 1 tablet Oxygen NDC 0 not defined Fish Oil [facility] [address]-99 1000 MG Orally Twice a day 1 capsule Viibryd [facility] [address]-78 10 MG Orally Once a day 1 tablet with food Levocetirizine Dihydrochloride [facility] [address]-27 5 MG Orally Once a day 1 tablet in the evening Metformin HCl [facility] [address]-99 500 MG Orally Twice a day 1/2 tablet Sucralfate [facility] [address]-51 1 GM Orally 4x a day 1 tablet on an empty stomach Montelukast Sodium [facility] [address]-16 10 MG Orally Once a day 1 tablet in the evening Exelon [facility] [address]-57 4.6 MG/24HR Transdermal Once a day 1 patch to skin Azithromycin [facility] [address]-87 250 MG Orally Once a day for 3 days NovDec 30, 2015 1 tablet Coricidin HBP Day/Night Cold [facility] [address] 10-20 &15-200-2 MG Orally not defined Doxazosin Mesylate [facility] [address]-95 4 MG Orally Once a day 1 tablet Amlodipine Besylate [facility] [address]-22 10 MG Orally Once a day 1 tablet Spiriva HandiHaler [facility] [address]-52 18 MCG Inhalation not defined Pantoprazole Sodium [facility] [address]-68 40 MG Orally Once a day 1 tablet GlipiZIDE [facility] [address]-87 5 MG Orally Once a day 1 tablet Albuterol Sulfate [facility] [address]-82 (2.5 MG/3ML) 0.083% Inhalation every 4 hours as needed 3 ml Oxybutynin Chloride ER [facility] [address]-37 15 MG Orally Once a day 1 tablet PredniSONE [facility] [address]-58 5 mg Orally Once a day for 5 days Dec 28, 2015 Jan 01, 2016 1 tablet Tramadol HCl [facility] [address]-06 50 mg Orally every 12 hrs 1 tablet as needed Clonazepam [facility] [address]-51 1 MG Orally 3x a day prn 1 tablet Cyanocobalamin [facility] [address] 500 MCG Orally Once a day 1 lozenge Procedures Procedure Coding System Code Date [facility] VISIT ESTABLISHED PATIENT CPT-4 G0467 Dec 29, 2015 Office Visit, Est Pt., Level 3 CPT-4 41390 Dec 29, 2015 MEASURE BLOOD OXYGEN LEVEL CPT-4 43397 Dec 29, 2015 Vital Signs Date/Time: Dec 29, 2015 Cardiac Monitoring Heart Rate 90 bpm Weight 236.1 lbs Height 72 in BMI 32.02 Index Oximetry w/ oxygen @ 2L:93 % Blood Pressure Diastolic 70 mmHg Blood Pressure Systolic 132 mmHg Results No Known Results Summary Purpose eClinicalWorks Submission
== END 2016-06-21 18:50 | disposition home or self-care (01) ==
LOC: EDUNIT# 17:46 → ER 17:48
DX: J44.1 Chronic obstructive pulmonary disease with (acute) exacerbation (principal); E11.9 Type 2 diabetes mellitus without complications; I10 Essential (primary) hypertension; Z79.84 Long term (current) use of oral hypoglycemic drugs; Z79.899 Other long term (current) drug therapy; Z99.81 Dependence on supplemental oxygen
CPT/HCPCS: 36415; 71020; 85025; 87804

== ENCOUNTER → 2016-07-09 | Outpatient (CLI) | payer MEDICARE, MEDICAID ==
--- NOTE | 2016-07-09 15:56 | Diagnostic Imaging Report ---
PROCEDURE: CT chest without contrast. TECHNIQUE: Multiple contiguous axial images were obtained through the chest without the use of intravenous contrast. INDICATION: Hiatal hernia. Cough. COMPARISON: 05/10/15. FINDINGS: There is a moderate-sized hiatal hernia. There is a stable 5 mm nodule in the mid right lung along the major fissure, axial image 31 unchanged from 05/10/15. Another 3 mm nodule in the upper aspect of the left major fissure is also seen and is also stable. There is no significant consolidation, mass or suspicious nodule seen otherwise. There is minimal atelectasis and scarring in the lung bases mostly on the left side. No pleural or pericardial effusion. The thoracic aorta is normal in caliber. There is evidence of calcified granulomas in the mediastinum with no significantly enlarged noncalcified lymph node. No lymphadenopathy of significance in the axilla seen. The osseous structures demonstrate mild degenerative changes. Sections in the upper abdomen appear grossly unremarkable. IMPRESSION: 1. Stable pulmonary nodules up to 5 mm in size along the left major fissure is seen. These are favored to be benign. Another followup unenhanced low-dose CT chest exam in a year is recommended to ensure further stability. 2. Moderate-sized hiatal hernia. Dictated by: Dictated on workstation # [id number]
== END ==
LOC: RAD 13:35
PROVIDERS: ATTEND Surgery
DX: K44.9 Diaphragmatic hernia without obstruction or gangrene (principal)
CPT/HCPCS: 71250

== ENCOUNTER 2016-08-16 11:00 | Emergency (ER) | payer MEDICARE, MEDICAID ==
[~2016-08-16] VITALS: Ht 182.9 cm; Wt 95.3 kg
[2016-08-16] MEDS ORDERED: RT-ALBUTEROL/IPRATROPIUM 3 ML (DUONEB) VIAL INH ONE (11:45)
--- NOTE | 2016-08-16 11:46 | ED Respiratory ---
General Chief Complaint: Respiratory Problems Stated Complaint: SOA Source: patient Exam Limitations: no limitations (NELY MCCABE MD) History of Present Illness Time seen by provider: 11:35 Initial Comments Here with complaint of shortness of air. This started last night. He states that he was having difficulty with breathing but didn't come last night. Has history of bronchitis. He did breathing treatments at home and states that didn 't help much. Denies fever or chills. Has some swelling in his legs but states that is not worse. Denies chest pain otherwise. Timing/Duration: yesterday, changing over time Severity: moderate Prior Episodes/Possible Cause: frequent episodes Modifying Factors: Worse With Activity, Worse With Coughing, Improves With Oxygen, Improves With Rest Associated Symptoms: No chest pain/soreness, cough, No fever/chills, shortness of breath, wheezing (NELY MCCABE MD) Allergies and Home Medications Allergies Coded Allergies: aspirin (Unverified Allergy, Unknown, 05/20/14) codeine (Verified Allergy, Unknown, 04/07/06) hydrocodone (Unverified Allergy, Unknown, 10/16/15) Uncoded Allergies: SSRI (Allergy, Unknown, 05/20/14) TCA (Allergy, Unknown, 05/20/14) Home Medications Acetaminophen/Diphenhydramine 1 Each Tablet, Unknown Dose PO, (Reported) Albuterol Sulfate 2.5 Mg/3 Ml Vial.neb, 2.5 MG IH Q4H PRN for SHORTNESS OF BREATH, (Reported) Amlodipine Besylate 10 Mg Tablet, 10 MG PO DAILY, (Reported) Atorvastatin Calcium 40 Mg Tablet, 40 MG PO HS, (Reported) Azithromycin 250 Mg Tablet, 250 MG PO UD, #6 TAKE 2 TABLETS ON DAY ONE THEN TAKE 1 TABLET DAILY FOR FOUR MORE DAYS. Prescribed by: BOZENA WERNER on 06/21/16 1851 Benazepril HCl 20 Mg Tablet, 20 MG PO DAILY, (Reported) Benzonatate 100 Mg Capsule, 100 MG PO twice a day, #20 Prescribed by: TOMMY BONILLA on 05/12/16 1353 Cefdinir 300 Mg Capsule, 300 MG PO twice a day, #14 Prescribed by: TOMMY BONILLA on 05/12/16 1353 Chlorphen/Dm/Acetaminophen/GG 1 Each Tb.cp.seq, 1-2 TAB PO Q6H PRN for DRAINAGE, (Reported) Clonazepam 1 Mg Tablet, 1 MG PO Q8H PRN for ANXIETY, (Reported) Cyanocobalamin 50 Mcg Lozenge, 500 MCG PO DAILY, (Reported) Doxazosin Mesylate 4 Mg Tablet, 4 MG PO HS, (Reported) Fish Oil/Dha/Epa 1 Each Capsule, 1 EACH PO DAILY, (Reported) Glipizide 5 Mg Tablet, 5 MG PO DAILY, (Reported) Levocetirizine Dihydrochloride 5 Mg Tablet, 5 MG PO HS, (Reported) Metformin HCl 500 Mg Tablet, 250 MG PO BID WITH MEALS, (Reported) TAKES 1/2 (500MG) TABLET Montelukast Sodium 10 Mg Tablet, 10 MG PO HS, (Reported) Montelukast Sodium 10 Mg Tablet, 10 MG PO HS, (Reported) Oxybutynin Chloride 10 Mg Tab.er.24, 10 MG PO DAILY, (Reported) Pantoprazole Sodium 40 Mg Tablet.dr, 40 MG PO HS, (Reported) Prednisone 20 Mg Tab, 20 MG PO DAILY, #4 Prescribed by: CEASAR CASTILLO on 05/20/16 0124 Prednisone 20 Mg Tab, 40 MG PO DAILY, #6 . Prescribed by: BOZENA WERNER on 06/21/16 1851 Prednisone 20 Mg Tab, 20 MG PO DAILY, #4 Prescribed by: CEASAR CASTILLO on 08/16/16 1310 Pregabalin 100 Mg Capsule, 100 MG PO BID, (Reported) Ranitidine HCl 150 Mg Tablet, 150 MG PO BID, (Reported) Rivastigmine 4.6 Mg Patch, 4.6 MG TD DAILY, (Reported) Sucralfate 1 Gm Tablet, 1 GM PO QID, (Reported) Tiotropium [place] 1 Inh Aerp, 1 CAP INH HS, (Reported) Tramadol HCl 50 Mg Tablet, 50 MG PO BID PRN for PAIN, (Reported) Triamcinolone Acetonide 15 Gm Cream..g., TOP BID, (Reported) 0.1% APPLY TO FEET Vilazodone Hydrochloride 10 Mg Tablet, 10 MG PO HS, (Reported) Constitutional: see HPI, No chills, No fever EENTM: no symptoms reported Respiratory: see HPI, cough, short of breath Cardiovascular: no symptoms reported Gastrointestinal: no symptoms reported Genitourinary: no symptoms reported Musculoskeletal: no symptoms reported Skin: no symptoms reported (NELY MCCABE MD) All Other Systems Reviewed Negative Unless Noted: Yes (NELY MCCABE MD) Past Sgziquy-Wyepvr-Rtidds Hx Patient Social History Alcohol Use: Denies Use Recreational Drug Use: No Smoking Status: Former Smoker Type Used: Cigarettes Former Smoker/When Quit: May 26, 1959 2nd Hand Smoke Exposure: No Recent Foreign Travel: No Contact w/Someone Who Travel: No Recent Hopitalizations: No (NELY MCCABE MD) Immunizations Up To Date Tetanus Booster (TDap): Unknown Date of Pneumonia Vaccine: Feb 20, 2016 Date of Influenza Vaccine: Dec 20, 2015 (NELY MCCABE MD) Seasonal Allergies Seasonal Allergies: No (NELY MCCABE MD) Surgeries HX Surgeries: Yes Surgeries: Abdominal, Adenoidectomy, Eye Surgery, Prostatectomy, Tonsillectomy (NELY MCCABE MD) Respiratory Hx Respiratory Disorders: Yes Respiratory Disorders: Asthma, Pneumonia, Chronic Bronchitis, COPD (NELY MCCABE MD) Cardiovascular Hx Cardiac Disorders: Yes Cardiac Disorders: Chronic Edema/Swelling, High Cholesterol, Hypertension (NELY MCCABE MD) Neurological Hx Neurological Disorders: Yes Neurological Disorders: Dementia (NELY MCCABE MD) Reproductive System Hx Reproductive Disorders: No Sexually Transmitted Disease: No (NELY MCCABE MD) Genitourinary Hx Genitourinary Disorders: Yes (PROSTATE CANCER > 10 YEARS AGO) Genitourinary Disorders: Prostate Problems (NELY MCCABE MD) Gastrointestinal Hx Gastrointestinal Disorders: Yes Gastrointestinal Disorders: Abdominal Hernia, Gastroesophageal Reflux, Polyps, Hiatal Hernia (NELY MCCABE MD) Musculoskeletal Hx Musculoskeletal Disorders: Yes ("Lyrica for arthritis") Musculoskeletal Disorders: Arthritis (NELY MCCABE MD) Endocrine Hx Endocrine Disorders: Yes Endocrine Disorders: Diabetes, Non-Insulin dep (NELY MCCABE MD) HEENT HX ENT Disorders: Yes (tear duct dysfunction, vision deficit/disfigurement of right eye, sinusitis) (NELY MCCABE MD) Cancer Hx Cancer: Yes (PROSTATE CANCER-S/P SURGERY ONLY;BASAL CELL CA R EYELID) Cancer: Prostate, Skin (NELY MCCABE MD) Psychosocial Hx Psychiatric Problems: Yes Behavioral Health Disorders: Anxiety, Depression (NELY MCCABE MD) Integumentary HX Skin/Integumentary Disorder: Yes (SKIN CANCER) (NELY MCCABE MD) Blood Transfusions Hx Blood Disorders: No Adverse Reaction to a Blood Tr: No (NELY MCCABE MD) Reviewed Nursing Assessment Reviewed/Agree w Nursing PMH: Yes (NELY MCCABE MD) Family Medical History Significant Family History: No Pertinent Family Hx Family Medial History: FH: breast cancer G8 SISTER (NELY MCCABE MD) Family Medial History: FH: breast cancer G8 SISTER (CEASAR LUCAS MD) Physical Exam Vital Signs Vital Sign - Last 12Hours (CEASAR LUCAS MD) Vital Signs Capillary Refill : (NELY MCCABE MD) General Appearance: WD/WN, no apparent distress HEENT: other (right eye with dysfunction. Left eye reactive. Patient at baseline.) Neck: full range of motion, supple Respiratory: decreased breath sounds, No wheezing Cardiovascular: regular rate, rhythm, no murmur Gastrointestinal: non tender, soft Extremities: non-tender, normal inspection, no calf tenderness, pedal edema (1- 2+ edema bilateral) Neurologic/Psychiatric: alert, oriented x 3 Skin: normal color, warm/dry (NELY MCCABE MD) Progress/Results/Core Measures Results/Orders Lab Results Laboratory Tests Test 08/16/16 11:21 Range/Units White Blood Count 7.1 4.3-11.0 10^3/uL Red Blood Count 4.26 L 4.35-5.85 10^6/uL Hemoglobin 12.7 L 13.3-17.7 G/DL Hematocrit 39 L 40-54 % Mean Corpuscular Volume 91 80-99 FL Mean Corpuscular Hemoglobin 30 25-34 PG Mean Corpuscular Hemoglobin Concent 33 32-36 G/DL Red Cell Distribution Width 12.9 10.0-14.5 % Platelet Count 200 130-400 10^3/uL Mean Platelet Volume 9.9 7.4-10.4 FL Neutrophils (%) (Auto) 51 42-75 % Lymphocytes (%) (Auto) 33 12-44 % Monocytes (%) (Auto) 14 H 0-12 % Eosinophils (%) (Auto) 3 0-10 % Basophils (%) (Auto) 0 0-10 % Neutrophils # (Auto) 3.6 1.8-7.8 X 10^3 Lymphocytes # (Auto) 2.3 1.0-4.0 X 10^3 Monocytes # (Auto) 1.0 0.0-1.0 X 10^3 Eosinophils # (Auto) 0.2 0.0-0.3 10^3/uL Basophils # (Auto) 0.0 0.0-0.1 10^3/uL Sodium Level 139 135-145 MMOL/L Potassium Level 3.6 3.6-5.0 MMOL/L Chloride Level 105 98-107 MMOL/L Carbon Dioxide Level 26 21-32 MMOL/L Anion Gap 8 5-14 MMOL/L Blood Urea Nitrogen 10 7-18 MG/DL Creatinine 0.79 0.60-1.30 MG/DL Estimat Glomerular Filtration Rate > 60 BUN/Creatinine Ratio 13 Glucose Level 112 H 70-105 MG/DL Calcium Level 9.1 8.5-10.1 MG/DL Total Bilirubin 0.5 0.1-1.0 MG/DL Aspartate Amino Transf (AST/SGOT) 26 5-34 U/L Alanine Aminotransferase (ALT/SGPT) 23 0-55 U/L Alkaline Phosphatase 62 40-136 U/L Troponin I < 0.30 <0.30 NG/ML C-Reactive Protein High Sensitivity 0.24 0.00-0.50 MG/DL Total Protein 6.5 6.4-8.2 G/DL Albumin 4.2 3.2-4.5 G/DL (CEASAR LUCAS MD) My Orders Orders - CEASAR LUCAS MD Methylprednisolone Sod Succ (Solu-Medrol (08/16/16 13:15) (CEASAR LUCAS MD) Medications Given in ED Current Medications Medications Dose Ordered Sig/Bernice Route Start Time Stop Time Status Last Admin Dose Admin Albuterol/ Ipratropium 3 ml ONCE ONCE INH 08/16/16 11:45 08/16/16 11:55 DC 08/16/16 11:52 3 ML Methylprednisolone Sodium Succinate 40 mg ONCE ONCE IV 08/16/16 13:15 08/16/16 13:16 DC 08/16/16 13:17 40 MG (CEASAR LUCAS MD) Vital Signs/I&O Vital Sign - Last 12Hours 08/16/16 08/16/16 08/16/16 08/16/16 11:07 11:07 11:52 14:33 Temp 98.3 Pulse 71 74 Resp 18 19 B/P (MAP) 129/69 Pulse Ox 95 95 95 93 O2 Delivery Nasal Cannula Nasal Cannula O2 Flow Rate 3.00 3.00 3.00 (CEASAR LUCAS MD) Progress Note : Progress Note Seen and evaluated. IV, labs, EKG and chest x-ray ordered. Duo neb ordered. Monitor patient. (NELY MCCABE MD) Progress Note : Progress Note Care of this patient was assumed from Dr. Mccabe. Chest x-ray and lab results were reviewed. There was no evidence for acute infection. Patient feels better after DuoNeb therapy. I've seen this patient in the past and he has done well with steroid bursts for his COPD exacerbations. He requests a steroid burst again at this time. (CEASAR LUCAS MD) ECG Initial ECG Impression Date: August 16, 2016 Initial ECG Impression Time: 11:10 Initial ECG Rate: 73 Initial ECG Rhythm: Normal Sinus Comment Sinus rhythm with first degree AV block. No evidence of ST elevation OR. Left axis deviation. Interpreted by me. (NELY MCCABE MD) Diagnostic Imaging Diagonstic Imaging: Xray Plain Films/CT/US/NM/MRI: chest Comments Chest x-ray viewed by me and report reviewed. See report below: NAME: ISABELA ESPINOZA [facility] REC#: [id number] PT STATUS: DEP ER : 1935 PHYSICIAN: NELY MCCABE MD ADMIT DATE: 08/16/16/ER Signed Date of Exam: 08/16/16 CHEST 1 VIEW, AP/PA ONLY INDICATION: Dyspnea. DISCUSSION: Single portable upright view of the chest was obtained, comparison 06/21/2016. Low lung volumes with subsegmental atelectasis within the lung bases. No pleural fluid or pneumothorax. Stable heart size. IMPRESSION: 1. Low lung volumes with bibasilar atelectasis. Dictated by: Dictated on workstation # [id number] Dict: 08/16/16 1255 Trans: 08/16/16 1538 Interpreted by: QUETA NEWTON MD Electronically signed by: QUETA NEWTON MD 08/16/16 1538 (CEASAR LUCAS MD) Departure Impression Impression: Primary Impression: COPD exacerbation Disposition: HOME, SELF-CARE Condition: Improved Departure-Patient Inst. Decision time for Depature: 13:07 (CEASAR LUCAS MD) Referrals: SALMA RAMIREZ DO (PCP) Primary Care Physician ASIM LINARES (Family) Primary Care Physician Add. Discharge Instructions: There were no signs of infection or pneumonia on your chest x-ray or lab work. Complete your steroids as prescribed. Monitor your blood sugars closely while on steroids. Return to emergency room if symptoms worsen. Follow up with your primary care provider soon as possible. All discharge instructions reviewed with patient and/or family. Voiced understanding. Scripts Prednisone (Prednisone) 20 Mg Tab 20 MG PO DAILY, #4 TAB Prov: CEASAR LUCAS MD 08/16/16 NELY MCCABE MD August 16, 2016 11:46 CEASAR LUCAS MD August 16, 2016 13:10
[2016-08-16 11:50] LABS: BASOPHILS % (AUTO) 0 % (0-10); EOSINOPHILS # (AUTO) 0.2 10^3/uL (0.0-0.3); EOSINOPHILS % (AUTO) 3 % (0-10); LYMPHOCYTES # (AUTO) 2.3 X 10^3 (1.0-4.0); LYMPHOCYTES % (AUTO) 33 % (12-44); MEAN CORPUSCULAR HEMOGLOBIN 30 PG (25-34); MEAN CORPUSCULAR HGB CONC 33 G/DL (32-36); MEAN CORPUSCULAR VOLUME 91 FL (80-99); MEAN PLATELET VOLUME 9.9 FL (7.4-10.4); MONOCYTES % (AUTO) 14 % (0-12); NEUTROPHILS # (AUTO) 3.6 X 10^3 (1.8-7.8); NEUTROPHILS % (AUTO) 51 % (42-75); PLATELET COUNT 200 10^3/uL (130-400); RED BLOOD COUNT 4.26 10^6/uL (4.35-5.85); RED CELL DISTRIBUTION WIDTH 12.9 % (10.0-14.5); WHITE BLOOD COUNT 7.1 10^3/uL (4.3-11.0)
[2016-08-16 12:16] LABS: ALANINE AMINOTRANSFERASE 23 U/L (0-55); ALBUMIN 4.2 G/DL (3.2-4.5); ANION GAP 8 MMOL/L (5-14); ASPARTATE AMINO TRANSFERASE 26 U/L (5-34); BILIRUBIN,TOTAL 0.5 MG/DL (0.1-1.0); BLOOD UREA NITROGEN 10 MG/DL (7-18); BUN/CREATININE RATIO 13; CALCIUM 9.1 MG/DL (8.5-10.1); CARBON DIOXIDE 26 MMOL/L (21-32); CHLORIDE 105 MMOL/L (98-107); CREATININE SERUM 0.79 MG/DL (0.60-1.30); GFR ESTIMATED > 60; GLUCOSE 112 MG/DL (70-105); POTASSIUM 3.6 MMOL/L (3.6-5.0); SODIUM 139 MMOL/L (135-145); TOTAL PROTEIN 6.5 G/DL (6.4-8.2); hs C REACTIVE PROTEIN 0.24 MG/DL (0.00-0.50)
[2016-08-16 12:28] LABS: TROPONIN I < 0.30 NG/ML (<0.30)
--- NOTE | 2016-08-16 12:40 | Diagnostic Imaging Report ---
Portable upright radiograph of the chest. INDICATION: Post intubation. FINDINGS: There is an ET tube terminating in the trachea at the level of the clavicles. An oropharyngeal tube terminates in the abdomen below the level of this image. There is suggestion of TIPS stent and coils in the upper abdomen. The lung interstitial markings are thickened similar to prior exams with articular nodular appearance which appears chronic but perhaps slightly increased at this time with element of vascular congestion. The lungs are hyperinflated The heart size is near the upper limits of normal. No effusion or pneumothorax. IMPRESSION: Slightly increased interstitial markings may relate to vascular congestion. Dictated by: Dictated on workstation # [id number]
--- NOTE | 2016-08-16 12:57 | Diagnostic Imaging Report ---
INDICATION: Dyspnea. DISCUSSION: Single portable upright view of the chest was obtained, comparison 06/21/2016. Low lung volumes with subsegmental atelectasis within the lung bases. No pleural fluid or pneumothorax. Stable heart size. IMPRESSION: 1. Low lung volumes with bibasilar atelectasis. Dictated by: Dictated on workstation # [id number]
[2016-08-16] MEDS ORDERED: PRD20T PO (13:10)
[2016-08-16] MEDS ORDERED: methylPREDNISolone 40 MG/ML (Solu-MEDROL) VIAL IV ONE (13:15)
[2016-08-16 14:33] VITALS: BP 136/82
== END 2016-08-16 13:27 | disposition home or self-care (01) ==
LOC: EDUNIT# 11:00 → ER 11:03
DX: J44.1 Chronic obstructive pulmonary disease with (acute) exacerbation (principal); I10 Essential (primary) hypertension; E11.9 Type 2 diabetes mellitus without complications; I44.0 Atrioventricular block, first degree; Z79.899 Other long term (current) drug therapy; Z79.84 Long term (current) use of oral hypoglycemic drugs; Z87.891 Personal history of nicotine dependence; Z85.46 Personal history of malignant neoplasm of prostate
CPT/HCPCS: 36415; 71010; 80053; 84484; 85025; 86141; 93005; 93041; 94640; 96374

== ENCOUNTER 2016-09-06 10:30 | Emergency (ER) | payer MEDICARE, MEDICAID ==
[~2016-09-06] VITALS: Ht 180.3 cm; Wt 99.8 kg
--- NOTE | 2016-09-06 11:34 | ED EENT ---
History of Present Illness General Chief Complaint: Oral/Throat Problems Stated Complaint: SORE THROAT Nursing Triage Note: c/o sore throat. Pt woke up with a sore throat this morning. Increased sinus drainage reported. Hx of tonsillectomy and hiatal hernia. Source: patient, family (spouse) Exam Limitations: no limitations History of Present Illness Time seen by provider: 11:29 Initial Comments Patient comes of the one today progressively worsening sore throat which he describes as scratchy feeling. No difficulty swallowing or sick contacts. No recent travel. No recent antibiotic use. Patient has no allergies to any antibiotics. 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 The patient also states he has a lot of acid reflux as well as hiatal hernia but was told he was not a surgical candidate and was put on medical therapy to include PPIs and told to lose weight. His acid reflux is no worse today than it has been in the past. Allergies and Home Medications Allergies Coded Allergies: aspirin (Unverified Allergy, Unknown, 05/20/14) codeine (Verified Allergy, Unknown, 04/07/06) hydrocodone (Unverified Allergy, Unknown, 10/16/15) Uncoded Allergies: SSRI (Allergy, Unknown, 05/20/14) TCA (Allergy, Unknown, 05/20/14) Home Medications Acetaminophen/Diphenhydramine 1 Each Tablet, Unknown Dose PO, (Reported) Albuterol Sulfate 2.5 Mg/3 Ml Vial.neb, 2.5 MG IH Q4H PRN for SHORTNESS OF BREATH, (Reported) Amlodipine Besylate 10 Mg Tablet, 10 MG PO DAILY, (Reported) Amoxicillin/Potassium Clav 1 Each Tablet, 1 EACH PO BID for 10 Days, #20 Ref 0 Prescribed by: ALBA BURRELL on 09/06/16 1213 Atorvastatin Calcium 40 Mg Tablet, 40 MG PO HS, (Reported) Azithromycin 250 Mg Tablet, 250 MG PO UD, #6 TAKE 2 TABLETS ON DAY ONE THEN TAKE 1 TABLET DAILY FOR FOUR MORE DAYS. Prescribed by: BOZENA WERNER on 06/21/16 1851 Benazepril HCl 20 Mg Tablet, 20 MG PO DAILY, (Reported) Benzonatate 100 Mg Capsule, 100 MG PO twice a day, #20 Prescribed by: TOMMY BONILLA on 05/12/16 1353 Cefdinir 300 Mg Capsule, 300 MG PO twice a day, #14 Prescribed by: TOMMY BONILLA on 05/12/16 1353 Chlorphen/Dm/Acetaminophen/GG 1 Each Tb.cp.seq, 1-2 TAB PO Q6H PRN for DRAINAGE, (Reported) Clonazepam 1 Mg Tablet, 1 MG PO Q8H PRN for ANXIETY, (Reported) Cyanocobalamin 50 Mcg Lozenge, 500 MCG PO DAILY, (Reported) Doxazosin Mesylate 4 Mg Tablet, 4 MG PO HS, (Reported) Fish Oil/Dha/Epa 1 Each Capsule, 1 EACH PO DAILY, (Reported) Fluticasone Propionate 9.9 Ml [place].susp, 9.9 ML NS DAILY for 30 Days, #1 Ref 0 Prescribed by: ALBA BURRELL on 09/06/16 1213 Glipizide 5 Mg Tablet, 5 MG PO DAILY, (Reported) Levocetirizine Dihydrochloride 5 Mg Tablet, 5 MG PO HS, (Reported) Metformin HCl 500 Mg Tablet, 250 MG PO BID WITH MEALS, (Reported) TAKES 1/2 (500MG) TABLET Montelukast Sodium 10 Mg Tablet, 10 MG PO HS, (Reported) Montelukast Sodium 10 Mg Tablet, 10 MG PO HS, (Reported) Oxybutynin Chloride 10 Mg Tab.er.24, 10 MG PO DAILY, (Reported) Pantoprazole Sodium 40 Mg Tablet.dr, 40 MG PO HS, (Reported) Prednisone 20 Mg Tab, 20 MG PO DAILY, #4 Prescribed by: CEASAR CASTILLO on 05/20/16 0124 Prednisone 20 Mg Tab, 40 MG PO DAILY, #6 . Prescribed by: BOZENA WERNER on 06/21/16 1851 Prednisone 20 Mg Tab, 20 MG PO DAILY, #4 Prescribed by: CEASAR CASTILLO on 08/16/16 1310 Pregabalin 100 Mg Capsule, 100 MG PO BID, (Reported) Ranitidine HCl 150 Mg Tablet, 150 MG PO BID, (Reported) Rivastigmine 4.6 Mg Patch, 4.6 MG TD DAILY, (Reported) Sucralfate 1 Gm Tablet, 1 GM PO QID, (Reported) Tiotropium [place] 1 Inh Aerp, 1 CAP INH HS, (Reported) Tramadol HCl 50 Mg Tablet, 50 MG PO BID PRN for PAIN, (Reported) Triamcinolone Acetonide 15 Gm Cream..g., TOP BID, (Reported) 0.1% APPLY TO FEET Vilazodone Hydrochloride 10 Mg Tablet, 10 MG PO HS, (Reported) Review of Systems Constitutional: see HPI, No chills, No fever, No malaise Eyes: See HPI, 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), Denies Foreign Body Sensation, Denies Inflammation, Denies Pain Ears: Denies Dizziness, Denies Tinnitus Nose: congestion, denies epistaxis, denies pain, purulent discharge Mouth: denies pain, other (edontulous) Throat: see HPI, denies pain, denies swelling, denies neck stiffness, hoarse, denies painful swallowing, denies difficulty with fluids Respiratory: No cough, No short of breath Cardiovascular: No chest pain, No edema Past Itsxwrh-Txvdqq-Bpumjz Hx Patient Social History Alcohol Use: Denies Use Recreational Drug Use: No Smoking Status: Former Smoker Type Used: Cigarettes Former Smoker/When Quit: May 26, 1959 2nd Hand Smoke Exposure: No Recent Foreign Travel: No Contact w/Someone Who Travel: No Recent Infectious Disease Expo: No Recent Hopitalizations: No Immunizations Up To Date Tetanus Booster (TDap): Unknown Date of Pneumonia Vaccine: Feb 20, 2016 Date of Influenza Vaccine: Dec 20, 2015 Seasonal Allergies Seasonal Allergies: No Surgeries HX Surgeries: Yes Surgeries: Abdominal, Adenoidectomy, Eye Surgery, Prostatectomy, Tonsillectomy Respiratory Hx Respiratory Disorders: Yes Respiratory Disorders: Asthma, Pneumonia, Chronic Bronchitis, COPD Cardiovascular Hx Cardiac Disorders: Yes Cardiac Disorders: Chronic Edema/Swelling, High Cholesterol, Hypertension Neurological Hx Neurological Disorders: Yes Neurological Disorders: Dementia Reproductive System Hx Reproductive Disorders: No Sexually Transmitted Disease: No Genitourinary Hx Genitourinary Disorders: Yes (PROSTATE CANCER > 10 YEARS AGO) Genitourinary Disorders: Prostate Problems Gastrointestinal Hx Gastrointestinal Disorders: Yes Gastrointestinal Disorders: Abdominal Hernia, Gastroesophageal Reflux, Polyps, Hiatal Hernia Musculoskeletal Hx Musculoskeletal Disorders: Yes ("Lyrica for arthritis") Musculoskeletal Disorders: Arthritis Endocrine Hx Endocrine Disorders: Yes Endocrine Disorders: Diabetes, Non-Insulin dep HEENT HX ENT Disorders: Yes (tear duct dysfunction, vision deficit/disfigurement of right eye, sinusitis) Cancer Hx Cancer: Yes (PROSTATE CANCER-S/P SURGERY ONLY;BASAL CELL CA R EYELID) Cancer: Prostate, Skin Psychosocial Hx Psychiatric Problems: Yes Behavioral Health Disorders: Anxiety, Depression Integumentary HX Skin/Integumentary Disorder: Yes (SKIN CANCER) Blood Transfusions Hx Blood Disorders: No Adverse Reaction to a Blood Tr: No Family Medical History Significant Family History: No Pertinent Family Hx Family Medial History: FH: breast cancer G8 SISTER Visual Acuity : Vision Acuity Degree: 20/100 Physical Exam Vital Signs Vital Sign - Last 12Hours 09/06/16 09/06/16 11:16 12:30 Temp 98.9 Pulse 76 Resp 16 B/P (MAP) 123/71 Pulse Ox 98 O2 Delivery Room Air General Appearance: WD/WN, no apparent distress Eyes: right eye other (mild erythema sn tearing), left eye EOMI, left eye PERRL , left eye normal inspection Ears: bilateral ear TM normal, bilateral ear auricle normal, bilateral ear canal normal Nose: sinus tenderness (maxilla) Mouth/Throat: normal mouth inspection Neck: non-tender, supple, normal inspection Cardiovascular: normal peripheral pulses, regular rate, rhythm Respiratory: chest non-tender, lungs clear, normal breath sounds, no respiratory distress, no accessory muscle use Gastrointestinal: normal bowel sounds, non tender Progress/Results/Core Measures Results/Orders Lab Results Laboratory Tests Test 09/06/16 11:30 Range/Units Group A Streptococcus Screen NEGATIVE NEGATIVE My Orders Orders - ALBA BURRELL Rapid Strep A Screen (09/06/16 11:34) Vital Signs/I&O Vital Sign - Last 12Hours 09/06/16 09/06/16 11:16 12:30 Temp 98.9 98.9 Pulse 76 72 Resp 16 16 B/P (MAP) 123/71 Pulse Ox 98 O2 Delivery Room Air Blood Pressure Mean: 88 Progress Note : Time: 11:58 Progress Note Strep screen was negative however the patient does have maxillofacial tenderness over the sinuses as well as some congestion and a long-standing history of allergies and applied 10. It is very possible this is a postnasal drip however with his tenderness and headaches I will go ahead and treat this and give him a nasal steroid if he does not really have one. Follow-up with his primary care physician. Patient was also very concerned about asking if I knew any surgeons might be old to fix a hiatal hernia. We discussed this briefly and this seems to be more appropriate patient for his visit however I have referred him to talk to his primary care physician. He states he was told the past that he would have to go to if he wanted to have the surgery done. Told him that it be reasonable to check that out but follow up with his primary care physician as far as his acid reflux goes. Departure Impression Impression: Primary Impression: Sinusitis Qualified Codes: J01.00 - Acute maxillary sinusitis, unspecified Additional Impression: Postnasal drip Disposition: HOME, SELF-CARE Condition: Stable Departure-Patient Inst. Decision time for Depature: 12:10 Referrals: [facility] (PCP/Family) Primary Care Physician Patient Instructions: Laryngitis (DC) Add. Discharge Instructions: You've been placed on 10 days of antibiotics for a maxillary sinus infection and your sore throat seems to be coming from the allergies and probably the sinusitis dripping down the back of your throat. It be important to get your allergies under good control with whatever medicines your primary care physician has provided. I will send a prescription for an gtft-sli-skgqhei medicine called Flonase. He should use of Flonase 1 spray in each nostril every day for the next several months. Complete the antibiotics as described. If you' re having any new symptoms such as fever, nausea or vomiting or rash you should return to the ER or to your primary care physician. All discharge instructions reviewed with patient and/or family. Voiced understanding. Scripts Fluticasone Propionate (Flonase Allergy Relief) 9.9 Ml [place]olia.susp 9.9 ML NS DAILY for 30 Days, #1 SPRAY 0 Refills Prov: ALBA BURRELL 09/06/16 Amoxicillin/Potassium Clav (Augmentin 875-125 Tablet) 1 Each Tablet 1 EACH PO BID for 10 Days, #20 TAB 0 Refills Prov: ALBA BURRELL 09/06/16 Copy Copies To 1: SALMA RAMIREZ DO ALBA BURRELL Sep 06, 2016 11:34
[2016-09-06] MEDS ORDERED: FLUT9.9S NS (12:13)
[2016-09-06] MEDS ORDERED: AMOX-358 PO (12:13)
[2016-09-06 12:30] VITALS: BP 120/71
== END 2016-09-06 12:30 | disposition home or self-care (01) ==
LOC: EDUNIT# 10:30 → ER 10:33
DX: J01.00 Acute maxillary sinusitis, unspecified (principal); K21.9 Gastro-esophageal reflux disease without esophagitis; K44.9 Diaphragmatic hernia without obstruction or gangrene; I10 Essential (primary) hypertension; J45.909 Unspecified asthma, uncomplicated; E11.9 Type 2 diabetes mellitus without complications; Z79.84 Long term (current) use of oral hypoglycemic drugs
CPT/HCPCS: 87430; 99282

== ENCOUNTER 2016-10-11 11:04 | Emergency (ER) | payer MEDICARE, MEDICAID ==
[~2016-10-11] VITALS: Ht 182.9 cm; Wt 90.7 kg
[~2016-10-11 11:04] MED LIST changes: +AMOX-358 PO; +FLUT9.9S NS
--- OUTSIDE RECORDS SUMMARY | 2016-10-11 11:21 | XMS REPORT | Continuity of Care Document ---
Author Author [facility] Organization [facility] Address Unknown Phone Unavailable Allergies Active Description Code Type Severity Reaction Onset Reported/Identified Relationship to Patient Clinical Status Yes codeine [id number] Drug Allergy Unknown N/A 04/07/2006 Yes aspirin [id number] Drug Allergy Unknown N/A 05/20/2014 Yes SSRI SSRI Unknown N/A 05/20/2014 Yes TCA TCA Unknown N/A 05/20/2014 Yes hydrocodone [id number] Drug Allergy Unknown N/A 10/16/2015 Medications Problems [...] FACP CCDS Ot 401.9 04/05/2014 LELAND DUARTE [facility], ALI FACP CCDS Ot 786.59 04/05/2014 LELAND DUARTE [facility], ALI FACP CCDS Ot V58.69 05/20/2014 Ot 473.9 CHRONIC SINUSITIS NOS 05/20/2014 Ot 786.2 COUGH 09/02/2014 BOZENA WERNER SET O TYPE OPERATOR Ot 466.0 ACUTE BRONCHITIS 09/02/2014 BOZENA WERNER SET O TYPE OPERATOR Ot 786.2 COUGH 12/26/2014 SHAYY DUARTE, CEASAR [...] 401.9 03/28/2015 Ot V58.69 03/28/2015 BAIMAJUVENAL L RULING MACHINE SET UP OPERATOR Ot 272.4 03/28/2015 BAIMAJUVENAL L RULING MACHINE SET UP OPERATOR Ot 401.9 03/28/2015 BAIMA JUVENAL L RULING MACHINE SET UP OPERATOR Ot 272.4 03/28/2015 BAIMA JUVENAL L RULING MACHINE SET UP OPERATOR Ot 401.9 03/28/2015 BAIMA JUVENAL L RULING MACHINE SET UP OPERATOR Ot V58.69 03/28/2015 LELAND DUARTE [facility], ALI [...] ORESTES Chavez Ot J18.9 04/20/2015 NATHANIEL JETT SET O TYPE OPERATOR Ot R04.2 04/26/2015 NATHANIEL JETT OMER Ot [...] OTH MED,LT,CURRENT USE 01/01/2016 BAIMA, JUVENAL L RULING MACHINE SET UP OPERATOR Ot 272.4 HYPERLIPIDEMIA NEC/NOS 01/01/2016 BAIMA, JUVENAL L RULING MACHINE SET UP OPERATOR Ot 401.9 HYPERTENSION NOS 01/01/2016 BAIMA, JUVENAL L RULING MACHINE SET UP OPERATOR Ot 272.4 HYPERLIPIDEMIA NEC/NOS 01/01/2016 BAIMA, JUVENAL L RULING MACHINE SET UP OPERATOR Ot 401.9 HYPERTENSION NOS 01/01/2016 BAIMA, JUVENAL L RULING MACHINE SET UP OPERATOR Ot V58.69 OTH MED,LT,CURRENT USE 01/01/2016 LELAND [...] COUGH 01/21/2016 CEASAR LUCAS MD Ot Z79.84 LONG-TERM (CURRENT) USE OF ORAL HYPOGLYC 01/21/2016 CEASAR LUCAS MD Ot Z79.899 OTHER LONG-TERM (CURRENT) DRUG THERAPY 01/22/2016 CEASAR LUCAS MD Ot E11.9 TYPE 2 DIABETES MELLITUS WITHOUT COMPLIC 01/22/2016 CEASAR LUCAS MD Ot I10 ESSENTIAL (PRIMARY) HYPERTENSION 01/22/2016 CEASAR LUCAS MD Ot J02.9 ACUTE PHARYNGITIS, UNSPECIFIED 01/22/2016 CEASAR LUCAS MD Ot J44.1 CHRONIC OBSTRUCTIVE PULMONARY DISEASE W 01/22/2016 CEASAR LUCAS MD Ot R05 COUGH 01/22/2016 CEASAR LUCAS MD Ot Z79.84 LONG-TERM (CURRENT) USE OF ORAL HYPOGLYC 01/22/2016 CEASAR LUCAS MD Ot Z79.899 OTHER LONG-TERM (CURRENT) DRUG THERAPY 02/29/2016 Ot 300.00 02/29/2016 [...] DOMINGA TOLEDOP Ot Y92.[address] [facility] 03/27/2016 DOMINGA TOLEDOP Ot Y99.8 OTHER EXTERNAL CAUSE STATUS 03/27/2016 DOMINGA TOLEDOP Ot Z79.84 CRIMINAL INTELLIGENCE ANALYST (CURRENT) USE OF ORAL HYPOGLYC 03/27/2016 PARIS, DOMINGA RULING MACHINE SET UP OPERATOR Ot Z79.899 OTHER CRIMINAL INTELLIGENCE ANALYST (CURRENT) DRUG THERAPY 03/27/2016 PARIS, DOMINGA RULING MACHINE SET UP OPERATOR Ot Z87.891 PERSONAL HISTORY OF NICOTINE DEPENDENCE 03/28/2016 PARIS, DOMNIGA RULING MACHINE SET UP OPERATOR Ot E11.9 TYPE 2 DIABETES MELLITUS WITHOUT COMPLIC 03/28/2016 PARIS, DOMINGA RULING MACHINE SET UP OPERATOR Ot I10 ESSENTIAL (PRIMARY) HYPERTENSION 03/28/2016 PARIS, DOMINGA RULING MACHINE SET UP OPERATOR Ot S00.12XA CONTUSION OF LEFT EYELID AND PERIOCULAR 03/28/2016 [place] DOMINGA RULING MACHINE SET UP OPERATOR Ot S09.90XA UNSPECIFIED INJURY OF HEAD, INITIAL ENCO 03/28/2016 DOMINGA TOLEDO RULING MACHINE SET UP OPERATOR Ot W20.8XXA OTH CAUSE OF STRIKE BY THROWN, PROJECTED 03/28/2016 DOMINGA TOLEDOP Ot Y92.[address] [facility] [address] IN [facility] 03/28/2016 DOMINGA TOLEDOP Ot Y99.8 OTHER EXTERNAL CAUSE STATUS 03/28/2016 DOMINGA TOLEDO RULING MACHINE SET UP OPERATOR Ot Z79.84 CRIMINAL INTELLIGENCE ANALYST (CURRENT) USE OF ORAL HYPOGLYC 03/28/2016 PARIS, DOMINGA RULING MACHINE SET UP OPERATOR Ot Z79.899 OTHER LONG-TERM (CURRENT) DRUG THERAPY 03/28/2016 PARIS, DOMINGA RULING MACHINE SET UP OPERATOR Ot Z87.891 PERSONAL HISTORY OF NICOTINE DEPENDENCE 03/29/2016 PARIS, DOMINGA RULING MACHINE SET UP OPERATOR Ot E11.9 TYPE 2 DIABETES MELLITUS WITHOUT COMPLIC 03/29/2016 PARIS, DOMINGA RULING MACHINE SET UP OPERATOR Ot I10 ESSENTIAL (PRIMARY) HYPERTENSION 03/29/2016 PARIS, DOMINGA RULING MACHINE SET UP OPERATOR Ot S00.12XA CONTUSION OF LEFT EYELID AND PERIOCULAR 03/29/2016 PARIS DOMINGA RULING MACHINE SET UP OPERATOR Ot S09.90XA UNSPECIFIED INJURY OF HEAD, INITIAL ENCO 03/29/2016 PARIS, DOMINGA RULING MACHINE SET UP OPERATOR Ot W20.8XXA OTH CAUSE OF STRIKE BY THROWN, PROJECTED 03/29/2016 DOMINGA TOLEDOP Ot Y92.[address] [facility] [address] IN [facility] 03/29/2016 DOMINGA TOLEDOP Ot Y99.8 OTHER EXTERNAL CAUSE STATUS 03/29/2016 DOMINGA TOLEDOP Ot Z79.84 LONG-TERM (CURRENT) USE OF ORAL HYPOGLYC 03/29/2016 DOMINGA TOLEDO RULING MACHINE SET UP OPERATOR Ot Z79.899 OTHER CRIMINAL INTELLIGENCE ANALYST (CURRENT) DRUG THERAPY 03/29/2016 DOMINGA TOLEDO RULING MACHINE SET UP OPERATOR Ot Z87.891 PERSONAL HISTORY OF NICOTINE DEPENDENCE 03/31/2016 Ot 300.00 03/31/2016 Ot V58.69 03/31/2016 PARIS, DOMINGA RULING MACHINE SET UP OPERATOR Ot E11.9 TYPE 2 DIABETES MELLITUS WITHOUT COMPLIC 03/31/2016 DOMINGA TOLEDO RULING MACHINE SET UP OPERATOR Ot I10 ESSENTIAL (PRIMARY) HYPERTENSION 03/31/2016 [place] DOMINGA MCCORMICKP Ot S00.12XA CONTUSION OF LEFT EYELID AND PERIOCULAR 03/31/2016 DOMINGA TOLEDOP Ot S09.90XA UNSPECIFIED INJURY OF HEAD, INITIAL ENCO 03/31/2016 DOMINGA TOLEDOP Ot W20.8XXA OTH CAUSE OF STRIKE BY THROWN, PROJECTED 03/31/2016 DOMINGA TOLEDOP Ot Y92.[address] [facility] [address] IN [facility] 03/31/2016 DOMINGA TOLEDOP Ot Y99.8 OTHER EXTERNAL CAUSE STATUS 03/31/2016 DOMINGA TOLEDOP Ot Z79.84 LONG-TERM (CURRENT) USE OF ORAL HYPOGLYC 03/31/2016 DOMINGA TOLEDO RULING MACHINE SET UP OPERATOR Ot Z79.899 OTHER CRIMINAL INTELLIGENCE ANALYST (CURRENT) DRUG THERAPY 03/31/2016 DOMINGA TOLEDO RULING MACHINE SET UP OPERATOR Ot Z87.891 PERSONAL HISTORY OF NICOTINE DEPENDENCE 04/24/2016 MADLASIM RULING MACHINE SET UP OPERATOR Ot M54.2 CERVICALGIA 04/24/2016 ASIM LINARES RULING MACHINE SET UP OPERATOR Ot R53.1 WEAKNESS 05/01/2016 ASIM LINARES RULING MACHINE SET UP OPERATOR Ot M54.2 CERVICALGIA 05/01/2016 ASIM LINARES RULING MACHINE SET UP OPERATOR Ot R53.1 WEAKNESS 05/12/2016 ODTOMMY GOULD MD Ot E11.9 TYPE 2 DIABETES MELLITUS WITHOUT COMPLIC 05/12/2016 TOMMY BONILLA MD Ot I10 ESSENTIAL (PRIMARY) HYPERTENSION 05/12/2016 TOMMY BONILLA MD Ot J40 BRONCHITIS, NOT SPECIFIED ACUTE OR CH 05/12/2016 TOMMY BONILLA MD Ot J43.9 EMPHYSEMA, UNSPECIFIED 05/12/2016 TOMMY BONILLA MD Ot R05 COUGH 05/12/2016 TMOMY BONILLA MD Ot Z79.84 CRIMINAL INTELLIGENCE ANALYST (CURRENT) USE OF ORAL HYPOGLYC 05/12/2016 TOMMY BONILLA MD Ot Z79.899 OTHER CRIMINAL INTELLIGENCE ANALYST (CURRENT) DRUG THERAPY 05/12/2016 TOMMY BONILLA MD [...] COUGH 05/13/2016 TOMMY BONILLA MD Ot Z79.84 CRIMINAL INTELLIGENCE ANALYST (CURRENT) USE OF ORAL HYPOGLYC 05/13/2016 TOMMY BONILLA MD Ot Z79.899 OTHER CRIMINAL INTELLIGENCE ANALYST (CURRENT) DRUG THERAPY 05/13/2016 TOMMY BONILLA MD [...] COUGH 05/13/2016 TOMMY BONILLA MD Ot Z79.84 CRIMINAL INTELLIGENCE ANALYST (CURRENT) USE OF ORAL HYPOGLYC 05/13/2016 TOMMY BONILLA MD Ot Z79.899 OTHER LONG-TERM (CURRENT) DRUG THERAPY 05/13/2016 IRENE DUARTE, TOMMY [...] BREATH 05/20/2016 CEASAR LUCAS MD Ot Z79.84 CRIMINAL INTELLIGENCE ANALYST (CURRENT) USE OF ORAL HYPOGLYC 05/20/2016 CEASAR LUCAS MD Ot Z79.899 OTHER CRIMINAL INTELLIGENCE ANALYST (CURRENT) DRUG THERAPY 05/21/2016 CEASAR LUCAS MD Ot E11.9 TYPE 2 DIABETES MELLITUS WITHOUT COMPLIC 05/21/2016 CEASAR LUCAS MD Ot I10 ESSENTIAL (PRIMARY) HYPERTENSION 05/21/2016 CEASAR LUCAS MD Ot J44.0 CHRONIC OBSTRUCTIVE PULMON DISEASE W ACU 05/21/2016 CEASAR LUCAS MD Ot R06.00 DYSPNEA, UNSPECIFIED 05/21/2016 CEASAR LUCAS MD Ot R06.02 SHORTNESS OF BREATH 05/21/2016 CEASAR LUCAS MD Ot Z79.84 CRIMINAL INTELLIGENCE ANALYST (CURRENT) USE OF ORAL HYPOGLYC 05/21/2016 CEASAR LUCAS MD Ot Z79.899 OTHER LONG-TERM (CURRENT) DRUG THERAPY 05/23/2016 CEASAR LUCAS MD Ot E11.9 TYPE 2 DIABETES MELLITUS WITHOUT COMPLIC 05/23/2016 CEASAR LUCAS MD Ot I10 ESSENTIAL (PRIMARY) HYPERTENSION 05/23/2016 CEASAR LUCAS MD Ot J44.0 CHRONIC OBSTRUCTIVE PULMON DISEASE W ACU 05/23/2016 CEASAR LUCAS MD Ot R06.00 DYSPNEA, UNSPECIFIED 05/23/2016 CEASAR LUCAS MD Ot R06.02 SHORTNESS OF BREATH 05/23/2016 CEASAR LUCAS MD Ot Z79.84 LONG-TERM (CURRENT) USE OF ORAL HYPOGLYC 05/23/2016 CEASAR LUCAS MD Ot Z79.899 OTHER LONG-TERM (CURRENT) DRUG THERAPY 05/29/2016 Ot 250.00 DIAB [...] SUKI HERNANDEZ MD, Ot K64.8 OTHER HEMORRHOIDS 06/21/2016 BOZENA WERNER APRN Ot E11.9 TYPE 2 DIABETES MELLITUS WITHOUT COMPLIC 06/21/2016 BOZENA WERNER APRN Ot I10 ESSENTIAL (PRIMARY) HYPERTENSION 06/21/2016 BOZENA WERNER APRN Ot J44.1 CHRONIC OBSTRUCTIVE PULMONARY DISEASE W 06/21/2016 BOZENA WERNER SET O TYPE OPERATOR Ot R05 COUGH 06/21/2016 BOZENA WERNER APRN Ot Z79.84 CRIMINAL INTELLIGENCE ANALYST (CURRENT) USE OF ORAL HYPOGLYC 06/21/2016 BOZENA WERNER APRN Ot Z79.899 OTHER LONG-TERM (CURRENT) DRUG THERAPY 06/21/2016 BOZENA WERNER APRN Ot Z99.81 DEPENDENCE ON SUPPLEMENTAL OXYGEN 06/23/2016 BOZENA WERNER APRN Ot E11.9 TYPE 2 DIABETES MELLITUS WITHOUT COMPLIC 06/23/2016 BOZENA WERNER APRN Ot I10 ESSENTIAL (PRIMARY) HYPERTENSION 06/23/2016 BOZENA WERNER APRN Ot J44.1 CHRONIC OBSTRUCTIVE PULMONARY DISEASE W 06/23/2016 BOZENA WERNER SET O TYPE OPERATOR Ot R05 COUGH 06/23/2016 BOZENA WERNER APRN Ot Z79.84 CRIMINAL INTELLIGENCE ANALYST (CURRENT) USE OF ORAL HYPOGLYC 06/23/2016 BOZENA WERNER SET O TYPE OPERATOR Ot Z79.899 OTHER CRIMINAL INTELLIGENCE ANALYST (CURRENT) DRUG THERAPY 06/23/2016 BOZENA WERNER SET O TYPE OPERATOR Ot Z99.81 DEPENDENCE ON SUPPLEMENTAL OXYGEN 06/27/2016 SUKI HENRANDEZ MD Ot K21.0 GASTRO-ESOPHAGEAL REFLUX DISEASE WITH ES 06/27/2016 SUKI HERNANDEZ MD Ot K29.70 GASTRITIS, UNSPECIFIED, WITHOUT BLEEDING 06/27/2016 SUKI HERNANDEZ MD Ot K44.9 DIAPHRAGMATIC HERNIA WITHOUT OBSTRUCTION 06/27/2016 SUKI HERNANDEZ MD Ot K57.90 DVRTCLOS OF INTEST, PART UNSP, W/O PERF 06/27/2016 SUKI HERNANDEZ MD Ot K63.5 POLYP OF COLON 06/27/2016 SUKI HERNANDEZ MD Ot K64.8 OTHER HEMORRHOIDS 07/10/2016 SUKI HERNANDEZ MD Ot K21.0 GASTRO-ESOPHAGEAL REFLUX DISEASE WITH ES 07/10/2016 SUKI HERNANDEZ MD Ot K29.70 GASTRITIS, UNSPECIFIED, WITHOUT BLEEDING 07/10/2016 SUKI HERNANDEZ MD Ot K44.9 DIAPHRAGMATIC HERNIA WITHOUT OBSTRUCTION 07/10/2016 SUKI HERNANDEZ MD Ot K57.90 DVRTCLOS OF INTEST, PART UNSP, W/O PERF 07/10/2016 SUKI HERNANDEZ MD Ot K63.5 POLYP OF COLON 07/10/2016 SUKI HERNANDEZ MD Ot K64.8 OTHER HEMORRHOIDS 07/29/2016 Ot 250.00 DIAB KASSANDRA WO COMPL, TYPE II OR UNSPEC TY 07/29/2016 Ot 401.9 HYPERTENSION NOS 07/29/2016 Ot 466.0 ACUTE BRONCHITIS 07/29/2016 Ot 786.59 CHEST PAIN NEC 07/29/2016 Ot V58.69 OTH MED,LT,CURRENT USE 07/30/2016 ADARSH DUARTE, BAYLEE Kim Ot K44.9 DIAPHRAGMATIC HERNIA WITHOUT OBSTRUCTION 08/13/2016 BAYLEE ALTAMIRANO MD Ot K44.9 DIAPHRAGMATIC HERNIA WITHOUT OBSTRUCTION 08/16/2016 SHAYY DUARTE, CEASAR Brock Ot E11.9 TYPE 2 DIABETES MELLITUS WITHOUT COMPLIC 08/16/2016 SHAYY DUARTE, CEASAR Brock Ot I10 ESSENTIAL (PRIMARY) HYPERTENSION 08/16/2016 SHAYY DUARTE, CEASAR Brock Ot I44.0 ATRIOVENTRICULAR BLOCK, FIRST DEGREE 08/16/2016 SHAYY DUARTE, CEASAR Brock Ot J44.1 CHRONIC OBSTRUCTIVE PULMONARY DISEASE W 08/16/2016 SHAYY DUARTE, CEASAR Brock Ot R06.02 SHORTNESS OF BREATH 08/16/2016 CEASAR LUACS MD T Ot Z79.84 CRIMINAL INTELLIGENCE ANALYST (CURRENT) USE OF ORAL HYPOGLYC 08/16/2016 CEASAR LUCAS MD T Ot Z79.899 OTHER CRIMINAL INTELLIGENCE ANALYST (CURRENT) DRUG THERAPY 08/16/2016 CEASAR LUCAS MD T Ot Z85.46 PERSONAL HISTORY OF MALIGNANT NEOPLASM O 08/16/2016 CEASAR LUCAS MD T Ot Z87.891 PERSONAL HISTORY OF NICOTINE DEPENDENCE 08/19/2016 CEASAR LUCAS MD T Ot E11.9 TYPE 2 DIABETES MELLITUS WITHOUT COMPLIC 08/19/2016 CEASAR LUCAS MD T Ot I10 ESSENTIAL (PRIMARY) HYPERTENSION 08/19/2016 CEASAR LUCAS MD T Ot J44.1 CHRONIC OBSTRUCTIVE PULMONARY DISEASE W 08/19/2016 CEASAR LUCAS MD T Ot R06.02 SHORTNESS OF BREATH 08/19/2016 CEASAR LUCAS MD T Ot Z79.84 CRIMINAL INTELLIGENCE ANALYST (CURRENT) USE OF ORAL HYPOGLYC 08/19/2016 CEASAR LUCAS MD T Ot Z79.899 OTHER LONG-TERM (CURRENT) DRUG THERAPY 08/19/2016 CEASAR LUCAS MD T Ot Z85.46 PERSONAL HISTORY OF MALIGNANT NEOPLASM O 08/19/2016 CEASAR LUCAS MD T Ot Z87.891 PERSONAL HISTORY OF NICOTINE DEPENDENCE 08/19/2016 CEASAR LUCAS MD T Ot E11.9 TYPE 2 DIABETES MELLITUS WITHOUT COMPLIC 08/19/2016 CEASAR LUCAS MD T Ot I10 ESSENTIAL (PRIMARY) HYPERTENSION 08/19/2016 CEASAR LUCAS MD Ot I44.0 ATRIOVENTRICULAR BLOCK, FIRST DEGREE 08/19/2016 CEASAR LUCAS MD T Ot J44.1 CHRONIC OBSTRUCTIVE PULMONARY DISEASE W 08/19/2016 CEASAR LUCAS MD T Ot R06.02 SHORTNESS OF BREATH 08/19/2016 CEASAR LUCAS MD T Ot Z79.84 CRIMINAL INTELLIGENCE ANALYST (CURRENT) USE OF ORAL HYPOGLYC 08/19/2016 CEASAR LUCAS MD T Ot Z79.899 OTHER LONG-TERM (CURRENT) DRUG THERAPY 08/19/2016 CEASAR LUCAS MD Ot Z85.46 PERSONAL HISTORY OF MALIGNANT NEOPLASM O 08/19/2016 CEASAR LUCAS MD Ot Z87.891 PERSONAL HISTORY OF NICOTINE DEPENDENCE 08/20/2016 CEASAR LUCAS MD Ot E11.9 TYPE 2 DIABETES MELLITUS WITHOUT COMPLIC 08/20/2016 CEASAR LUCAS MD Ot I10 ESSENTIAL (PRIMARY) HYPERTENSION 08/20/2016 CEASAR LUCAS MD Ot I44.0 ATRIOVENTRICULAR BLOCK, FIRST DEGREE 08/20/2016 CEASAR LUCAS MD Ot J44.1 CHRONIC OBSTRUCTIVE PULMONARY DISEASE W 08/20/2016 CEASAR LUCAS MD Ot R06.02 SHORTNESS OF BREATH 08/20/2016 CEASAR LUCAS MD Ot Z79.84 LONG-TERM (CURRENT) USE OF ORAL HYPOGLYC 08/20/2016 CEASAR LUCAS MD Ot Z79.899 OTHER LONG-TERM (CURRENT) DRUG THERAPY 08/20/2016 CEASAR LUCAS MD Ot Z85.46 PERSONAL HISTORY OF MALIGNANT NEOPLASM O 08/20/2016 CEASAR LUCAS MD Ot Z87.891 PERSONAL HISTORY OF NICOTINE DEPENDENCE 08/29/2016 Ot 250.00 DIAB KASSANDRA WO COMPL, TYPE II OR UNSPEC TY 08/29/2016 Ot 401.9 HYPERTENSION NOS 08/29/2016 Ot 466.0 ACUTE BRONCHITIS 08/29/2016 Ot 786.59 CHEST PAIN NEC 08/29/2016 Ot V58.69 OTH MED,LT,CURRENT USE 09/06/2016 ALBA BURRELL MD Ot E11.9 TYPE 2 DIABETES MELLITUS WITHOUT COMPLIC 09/06/2016 ALBA BURRELL MD Ot I10 ESSENTIAL (PRIMARY) HYPERTENSION 09/06/2016 ALBA BURRELL MD Ot J01.00 ACUTE MAXILLARY SINUSITIS, UNSPECIFIED 09/06/2016 ALBA BURRELL MD Ot J02.9 ACUTE PHARYNGITIS, UNSPECIFIED 09/06/2016 ALBA BURRELL MD Ot J45.909 UNSPECIFIED ASTHMA, UNCOMPLICATED 09/06/2016 ALBA BURRELL MD Ot K21.9 GASTRO-ESOPHAGEAL REFLUX DISEASE WITHOUT 09/06/2016 ALBA BURRELL MD Ot K44.9 DIAPHRAGMATIC HERNIA WITHOUT OBSTRUCTION 09/06/2016 ALBA BURRELL MD Ot Z79.84 CRIMINAL INTELLIGENCE ANALYST (CURRENT) USE OF ORAL HYPOGLYC Procedures Results Test Result Range Complete blood [...] SEE COMMENTS NRG QUANTITY OF GROWTH Isolated [facility] Bacterial blood culture [id number] [facility] Capillary blood glucose measurement by glucometer (mass/volume) [...] INFLUENZA A AND B ANTIGENS BY BANNER Complete blood count (CBC) with automated white [...] INFLUENZA A AND B ANTIGENS BY BANNER Complete blood count (CBC) with automated white blood cell (WBC) differential - 08/16/16 11:21 Blood leukocytes automated count (number/volume) 7.1 10*3/ uL 4.3-11.0 Blood erythrocytes automated count (number/volume) 4.26 10*6 /uL 4.35-5.85 Venous blood hemoglobin measurement (mass/volume) 12.7 g/dL 13.3-17.7 Blood hematocrit (volume fraction) 39 % 40-54 Automated erythrocyte mean corpuscular volume 91 [foz_us] 80-99 Automated erythrocyte mean corpuscular hemoglobin (mass per erythrocyte) 30 pg 25-34 Automated erythrocyte mean corpuscular hemoglobin concentration measurement ( mass/volume) 33 g/dL 32-36 Automated erythrocyte distribution width ratio 12.9 % 10.0-14.5 Automated blood platelet count (count/volume) 200 10*3/uL 130-400 Automated blood platelet mean volume measurement 9.9 [foz_us ] 7.4-10.4 Automated blood neutrophils/100 leukocytes 51 % 42-75 Automated blood lymphocytes/100 leukocytes 33 % 12-44 Blood monocytes/100 leukocytes 14 % 0-12 Automated blood eosinophils/100 leukocytes 3 % 0-10 Automated blood basophils/100 leukocytes 0 % 0-10 Blood neutrophils automated count (number/volume) 3.6 10*3 1.8-7.8 Blood lymphocytes automated count (number/volume) 2.3 10*3 1.0-4.0 Blood monocytes automated count (number/volume) 1.0 10*3 0.0-1.0 Automated eosinophil count 0.2 10*3/uL 0.0-0.3 Automated blood basophil count (count/volume) 0.0 10*3/uL 0.0-0.1 Comprehensive metabolic panel - 08/16/16 11:21 Serum or plasma sodium measurement (moles/volume) 139 mmol/ L 135-145 Serum or plasma potassium measurement (moles/volume) 3.6 mmol/L 3.6-5.0 Serum or plasma chloride measurement (moles/volume) 105 mmol /L 98-107 Carbon dioxide 26 mmol/L 21-32 Serum or plasma anion gap determination (moles/volume) 8 mmol/L 5-14 Serum or plasma urea nitrogen measurement (mass/volume) 10 mg/dL 7-18 Serum or plasma creatinine measurement (mass/volume) 0.79 mg /dL 0.60-1.30 Serum or plasma urea nitrogen/creatinine mass ratio 13 NRG Serum or plasma creatinine measurement with calculation of estimated glomerular filtration rate > NRG Serum or plasma glucose measurement (mass/volume) 112 mg/dL 70-105 Serum or plasma calcium measurement (mass/volume) 9.1 mg/dL 8.5-10.1 Serum or plasma total bilirubin measurement (mass/volume) 0.5 mg/dL 0.1-1.0 Serum or plasma alkaline phosphatase measurement (enzymatic activity/volume) 62 U/L 40-136 Serum or plasma aspartate aminotransferase measurement (enzymatic activity/ volume) 26 U/L 5-34 Serum or plasma alanine aminotransferase measurement (enzymatic activity/volume ) 23 U/L 0-55 Serum or plasma protein measurement (mass/volume) 6.5 g/dL 6.4-8.2 Serum or plasma albumin measurement (mass/volume) 4.2 g/dL 3.2-4.5 Serum or plasma troponin i.cardiac measurement (mass/volume) - 08/16/16 11:21 Serum or plasma troponin i.cardiac measurement (mass/volume) < ng/mL <0.30 Serum or plasma C reactive protein measurement (mass/volume) - 08/16/16 11:21 Serum or plasma C reactive protein measurement (mass/volume) 0.24 mg/dL 0.00-0.50 Streptococcus pyogenes antigen detection - 09/06/16 11:30 Streptococcus pyogenes antigen detection NEGATIVE NEGATIVE Bacterial throat culture - 09/06/16 11:30 Bacterial throat culture [id number] NRG FREE TEXT EXTERNAL PLUS NORMAL CINDY NRG QUANTITY OF GROWTH Scant Growth NRG Encounters ACCT No. Visit Date/Time Discharge Status Pt. Type Provider Facility Loc./Unit Complaint [id number] 09/06/2016 10:33:00 2016 12:30:00 DIS Emergency ALBA BURRELL MD [facility] ER SORE THROAT [id number] 08/16/2016 11:03:00 2016 13:27:00 DIS Emergency SHAYY DUARTE, CEASAR Brock [facility] ER SOA [id number] 06/21/2016 17:48:00 2016 18:50:00 DIS Emergency BOZENA WERNER APRN [facility] ER COUGH, FEVER [id number] 05/19/2016 23:48:00 2016 01:25:00 DIS Emergency CEASAR LUCAS MD [facility] ER COUGH MUCUS [id number] 05/12/2016 12:50:00 2016 14:00:00 DIS Emergency TOMMY BONILLA MD [facility] ER COUGH [id number] 04/26/2016 10:13:00 2016 11:05:00 DIS Outpatient ASIM LINARES RULING MACHINE SET UP OPERATOR [facility] REHAB NECK PAIN AND GENERALIZED WEAKNESS [id number] 03/27/2016 15:46:00 2015 19:10:00 DIS Emergency DOMINGA TOLEDO RULING MACHINE SET UP OPERATOR [facility] ER HEAD PAIN [id number] 01/20/2016 23:43:00 2015 00:45:00 DIS Emergency CEASAR LUCAS MD [facility] ER COUGHING, SORE THROAT [id number] 12/26/2015 22:39:00 2015 14:50:00 DIS Inpatient ROBBY HANLEY MD [facility] 4TH COPD EXACERBATION [id number] 10/16/2015 01:13:00 2015 03:12:00 DIS Emergency ROBBY LEWIS DO [facility] ER BRONCHITIS [id number] 05/26/2015 21:03:00 2015 13:32:00 DIS Inpatient MARSHAL SANDERS DO [facility] ICU CHEST PAIN [id number] 03/21/2015 17:40:00 2014 19:14:00 DIS Emergency NELY MCCABE MD [facility] ER COUGH,CONGESTION [id number] 02/24/2015 10:04:00 2014 11:26:00 DIS Emergency NIEVES ALVARADO MD [facility] ER COUGH/CHEST CONGESTION [id number] 02/17/2015 15:15:00 2014 23:59:59 CLS Outpatient ORESTES EWNIG MD [facility] RT COPD [id number] 02/08/2015 09:32:00 2014 23:59:59 CLS Outpatient ORESTES EWING MD [facility] RAD PNEUMONIA [id number] 12/25/2014 21:55:00 2014 01:26:00 DIS Emergency CEASAR LUCAS MD [facility] ER CONGESTION [id number] 12/07/2014 12:22:00 2014 23:59:59 CLS Outpatient ORESTES EWING MD [facility] RAD CHRONIC LUMBAR PAIN, [id number] 09/02/2014 09:12:00 2014 10:55:00 DIS Emergency BOZENA WERNER SET O TYPE OPERATOR [facility] ER COUGH [id number] 03/01/2014 08:12:00 2013 23:59:59 CLS Outpatient LELAND DUARTE FACC, CARLOS ANGEL CCDS [facility] CARD CHEST DISCOMFORT, HTN,HLP [id number] 01/15/2014 09:24:00 2013 11:33:00 DIS Emergency NELY MCCABE MD [facility] ER NOSE BLEED [id number] 11/08/2013 07:59:00 2013 23:59:59 CLS Outpatient NOAM DUARTE, AYLIN Mcgarry [facility] REHAB ARTHRITIS PAIGE KNEES [id number] 07/28/2013 01:14:00 2013 02:48:00 DIS Emergency CHRISTIANO DUARTE, NIEVES Luis [facility] ER COUGHING [id number] 04/21/2013 01:15:00 2013 04:07:00 DIS Emergency SHAYY DUARTE, CEASAR Brock [facility] ER COUGH,CHEST HURTS [id number] 01/22/2013 09:02:00 2012 23:59:59 CLS Outpatient JUVENAL CLEANING [facility] LAB HYPERTENSION,HYPERLIPIDEMIA, STATIN [place] [id number] 09/18/2012 09:01:00 2012 23:59:59 CLS Outpatient JUVENAL CLEANING [facility] LAB HYPERLIPADEMIA,HYPERTENSION [id number] 07/09/2016 13:35:00 ACT Outpatient BAYLEE ALTAMIRANO MD [facility] RAD HIATIC HERNIS [id number] 06/05/2016 09:09:00 ACT Outpatient SUKI HERNANDEZ MD [facility] ENDO HISTORY POLYPS;REFLUX [id number] 06/03/2016 05:42:00 ACT Outpatient SUKI HERNANDEZ MD [facility] PREOP HISTORY POLYPS;REFLUX [id number] 03/04/2016 05:48:00 ACT Outpatient SUKI HERNANDEZ MD [facility] PREOP HISTORY POLYPS;REFLUX [id number] 05/31/2015 11:38:00 ACT Outpatient SABRINA MARKS DO [facility] RT COPD [id number] 05/10/2015 11:15:00 ACT Outpatient SABRINA MARKS DO [facility] RAD COPD,DYSPNEA [id number] 03/28/2015 11:18:00 ACT Outpatient NATHANIEL JETT APRN [facility] LAB HEMOPTYSIS [id number] 05/20/2014 09:13:00 Document Registration [id number] 05/20/2012 08:16:00 Document Registration [id number] 03/30/2012 09:19:00 Document Registration [id number] 11/21/2011 08:31:00 Document Registration [id number] 09/24/2011 08:32:00 Document Registration [id number] 05/27/2011 08:59:00 Document Registration [id number] 04/19/2011 04:28:00 Document Registration [id number] 04/18/2011 21:37:00 Document Registration [id number] 04/06/2011 23:50:00 Document Registration [id number] 03/25/2011 23:56:00 Document Registration [id number] 03/25/2011 18:29:00 Document Registration [id number] 02/23/2011 00:49:00 Document Registration [id number] 01/31/2011 08:03:00 Document Registration [id number] 01/28/2011 01:57:00 Document Registration [id number] 10/15/2010 09:20:00 Document Registration [id number] 10/06/2010 00:41:00 Document Registration [id number] 09/17/2010 00:40:00 Document Registration [id number] 03/22/2010 07:50:00 Document Registration [id number] 03/15/2010 14:00:00 Document Registration [id number] 02/25/2010 11:47:00 Document Registration [id number] 10/08/2009 23:41:00 Document Registration [id number] 04/24/2007 14:30:00 Document Registration
[2016-10-11] MEDS ORDERED: RT-ALBUTEROL/IPRATROPIUM 3 ML (DUONEB) VIAL INH ONE (11:30)
--- NOTE | 2016-10-11 11:31 | ED Respiratory ---
General Chief Complaint: Cough/Cold/Flu Symptoms Stated Complaint: COUGH Nursing Triage Note: c/o cough x 3 days. Denies being abnormally SOA. No known fever. Hx of emphysema. Source: patient, family Exam Limitations: no limitations History of Present Illness Time seen by provider: 11:26 Initial Comments This 80-year-old white male presents with a three-day history of progressive shortness of breath. 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 The patient denies associated fever, chills, productive cough, chest pain, palpitations, syncopal symptoms, or similar episode in the past. The patient is under the care of [facility]. Patient has a history of diabetes and hypertension. Allergies and Home Medications Allergies Coded Allergies: aspirin (Unverified Allergy, Unknown, 05/20/14) codeine (Verified Allergy, Unknown, 04/07/06) hydrocodone (Unverified Allergy, Unknown, 10/16/15) Uncoded Allergies: SSRI (Allergy, Unknown, 05/20/14) TCA (Allergy, Unknown, 05/20/14) Home Medications Acetaminophen/Diphenhydramine 1 Each Tablet, Unknown Dose PO, (Reported) Albuterol Sulfate 2.5 Mg/3 Ml Vial.neb, 2.5 MG IH Q4H PRN for SHORTNESS OF BREATH, (Reported) Amlodipine Besylate 10 Mg Tablet, 10 MG PO DAILY, (Reported) Amoxicillin/Potassium Clav 1 Each Tablet, 1 EACH PO BID for 10 Days, #20 Ref 0 Prescribed by: ALBA BURRELL on 09/06/16 1213 Atorvastatin Calcium 40 Mg Tablet, 40 MG PO HS, (Reported) Azithromycin 250 Mg Tablet, 250 MG PO UD, #6 TAKE 2 TABLETS ON DAY ONE THEN TAKE 1 TABLET DAILY FOR FOUR MORE DAYS. Prescribed by: BOZENA WERNER on 06/21/16 1851 Benazepril HCl 20 Mg Tablet, 20 MG PO DAILY, (Reported) Benzonatate 100 Mg Capsule, 100 MG PO twice a day, #20 Prescribed by: TOMMY BONILLA on 05/12/16 1353 Cefdinir 300 Mg Capsule, 300 MG PO twice a day, #14 Prescribed by: TOMMY BONILLA on 05/12/16 1353 Chlorphen/Dm/Acetaminophen/GG 1 Each Tb.cp.seq, 1-2 TAB PO Q6H PRN for DRAINAGE, (Reported) Clonazepam 1 Mg Tablet, 1 MG PO Q8H PRN for ANXIETY, (Reported) Cyanocobalamin 50 Mcg Lozenge, 500 MCG PO DAILY, (Reported) Doxazosin Mesylate 4 Mg Tablet, 4 MG PO HS, (Reported) Fish Oil/Dha/Epa 1 Each Capsule, 1 EACH PO DAILY, (Reported) Fluticasone Propionate 9.9 Ml [place].susp, 9.9 ML NS DAILY for 30 Days, #1 Ref 0 Prescribed by: ALBA BURRELL on 09/06/16 1213 Glipizide 5 Mg Tablet, 5 MG PO DAILY, (Reported) Levocetirizine Dihydrochloride 5 Mg Tablet, 5 MG PO HS, (Reported) Metformin HCl 500 Mg Tablet, 250 MG PO BID WITH MEALS, (Reported) TAKES 1/2 (500MG) TABLET Montelukast Sodium 10 Mg Tablet, 10 MG PO HS, (Reported) Montelukast Sodium 10 Mg Tablet, 10 MG PO HS, (Reported) Oxybutynin Chloride 10 Mg Tab.er.24, 10 MG PO DAILY, (Reported) Pantoprazole Sodium 40 Mg Tablet.dr, 40 MG PO HS, (Reported) Prednisone 20 Mg Tab, 20 MG PO DAILY, #4 Prescribed by: CEASAR CASTILLO on 05/20/16 0124 Prednisone 20 Mg Tab, 40 MG PO DAILY, #6 . Prescribed by: BOZENA WERNER on 06/21/16 1851 Prednisone 20 Mg Tab, 20 MG PO DAILY, #4 Prescribed by: CEASAR CASTILLO on 08/16/16 1310 Pregabalin 100 Mg Capsule, 100 MG PO BID, (Reported) Ranitidine HCl 150 Mg Tablet, 150 MG PO BID, (Reported) Rivastigmine 4.6 Mg Patch, 4.6 MG TD DAILY, (Reported) Sucralfate 1 Gm Tablet, 1 GM PO QID, (Reported) Tiotropium [place] 1 Inh Aerp, 1 CAP INH HS, (Reported) Tramadol HCl 50 Mg Tablet, 50 MG PO BID PRN for PAIN, (Reported) Triamcinolone Acetonide 15 Gm Cream..g., TOP BID, (Reported) 0.1% APPLY TO FEET Vilazodone Hydrochloride 10 Mg Tablet, 10 MG PO HS, (Reported) Constitutional: No chills, No fever EENTM: No double vision, No nose congestion, No throat pain Respiratory: cough, No hemoptysis, short of breath, No wheezing Cardiovascular: No chest pain, No palpitations Gastrointestinal: No abdominal pain, No diarrhea, No nausea, No vomiting Genitourinary: No dysuria, No frequency Musculoskeletal: No back pain, No muscle pain Skin: No change in color, No rash Psychiatric/Neurological: No Symptoms Reported Hematologic/Lymphatic: No Symptoms Reported Immunological/Allergic: no symptoms reported Past Vmpwcer-Njnyjm-Wnfedn Hx Patient Social History Alcohol Use: Denies Use Recreational Drug Use: No Smoking Status: Former Smoker Type Used: Cigarettes Former Smoker/When Quit: May 26, 1959 2nd Hand Smoke Exposure: No Recent Foreign Travel: No Contact w/Someone Who Travel: No Recent Infectious Disease Expo: No Recent Hopitalizations: No Immunizations Up To Date Tetanus Booster (TDap): Unknown Date of Pneumonia Vaccine: Feb 20, 2016 Date of Influenza Vaccine: Dec 20, 2015 Seasonal Allergies Seasonal Allergies: No Surgeries HX Surgeries: Yes Surgeries: Abdominal, Adenoidectomy, Eye Surgery, Prostatectomy, Tonsillectomy Respiratory Hx Respiratory Disorders: Yes Respiratory Disorders: Asthma, Pneumonia, Chronic Bronchitis, COPD Cardiovascular Hx Cardiac Disorders: Yes Cardiac Disorders: Chronic Edema/Swelling, High Cholesterol, Hypertension Neurological Hx Neurological Disorders: Yes Neurological Disorders: Dementia Reproductive System Hx Reproductive Disorders: No Sexually Transmitted Disease: No Genitourinary Hx Genitourinary Disorders: Yes (PROSTATE CANCER > 10 YEARS AGO) Genitourinary Disorders: Prostate Problems Gastrointestinal Hx Gastrointestinal Disorders: Yes Gastrointestinal Disorders: Abdominal Hernia, Gastroesophageal Reflux, Polyps, Hiatal Hernia Musculoskeletal Hx Musculoskeletal Disorders: Yes ("Lyrica for arthritis") Musculoskeletal Disorders: Arthritis Endocrine Hx Endocrine Disorders: Yes Endocrine Disorders: Diabetes, Non-Insulin dep HEENT HX ENT Disorders: Yes (tear duct dysfunction, vision deficit/disfigurement of right eye, sinusitis) Cancer Hx Cancer: Yes (PROSTATE CANCER-S/P SURGERY ONLY;BASAL CELL CA R EYELID) Cancer: Prostate, Skin Psychosocial Hx Psychiatric Problems: Yes Behavioral Health Disorders: Anxiety, Depression Integumentary HX Skin/Integumentary Disorder: Yes (SKIN CANCER) Blood Transfusions Hx Blood Disorders: No Adverse Reaction to a Blood Tr: No Reviewed Nursing Assessment Reviewed/Agree w Nursing PMH: Yes Family Medical History Significant Family History: No Pertinent Family Hx Family Medial History: FH: breast cancer G8 SISTER Physical Exam Vital Signs Vital Sign - Last 12Hours 10/11/16 10/11/16 11:17 11:36 Temp 97.5 Pulse 86 Resp 20 B/P (MAP) 142/86 Pulse Ox 92 O2 Delivery Nasal Cannula O2 Flow Rate 4.00 Capillary Refill : Less Than 3 Seconds General Appearance: no apparent distress HEENT: other (previous facial surgery to the right periorbital region and right side of the face) Neck: supple Respiratory: decreased breath sounds Cardiovascular: normal peripheral pulses, regular rate, rhythm, no edema, no JVD Gastrointestinal: normal bowel sounds, non tender, soft Extremities: normal range of motion, non-tender, normal inspection Neurologic/Psychiatric: no motor/sensory deficits, alert Skin: warm/dry Progress/Results/Core Measures Results/Orders Lab Results Laboratory Tests Test 10/11/16 11:30 Range/Units White Blood Count 6.7 4.3-11.0 10^3/uL Red Blood Count 4.33 L 4.35-5.85 10^6/uL Hemoglobin 12.7 L 13.3-17.7 G/DL Hematocrit 39 L 40-54 % Mean Corpuscular Volume 91 80-99 FL Mean Corpuscular Hemoglobin 29 25-34 PG Mean Corpuscular Hemoglobin Concent 32 32-36 G/DL Red Cell Distribution Width 12.2 10.0-14.5 % Platelet Count 216 130-400 10^3/uL Mean Platelet Volume 9.3 7.4-10.4 FL Neutrophils (%) (Auto) 59 42-75 % Lymphocytes (%) (Auto) 25 12-44 % Monocytes (%) (Auto) 14 H 0-12 % Eosinophils (%) (Auto) 1 0-10 % Basophils (%) (Auto) 0 0-10 % Neutrophils # (Auto) 4.0 1.8-7.8 X 10^3 Lymphocytes # (Auto) 1.7 1.0-4.0 X 10^3 Monocytes # (Auto) 1.0 0.0-1.0 X 10^3 Eosinophils # (Auto) 0.1 0.0-0.3 10^3/uL Basophils # (Auto) 0.0 0.0-0.1 10^3/uL Prothrombin Time 13.4 12.2-14.7 SEC INR Comment 1.1 0.8-1.4 Activated Partial Thromboplast Time 31 24-35 SEC D-Dimer 0.30 0.00-0.49 UG/ML Sodium Level 140 135-145 MMOL/L Potassium Level 3.9 3.6-5.0 MMOL/L Chloride Level 104 98-107 MMOL/L Carbon Dioxide Level 27 21-32 MMOL/L Anion Gap 9 5-14 MMOL/L Blood Urea Nitrogen 8 7-18 MG/DL Creatinine 0.88 0.60-1.30 MG/DL Estimat Glomerular Filtration Rate > 60 BUN/Creatinine Ratio 9 Glucose Level 115 H 70-105 MG/DL Calcium Level 9.4 8.5-10.1 MG/DL Magnesium Level 2.0 1.8-2.4 MG/DL Total Bilirubin 0.4 0.1-1.0 MG/DL Aspartate Amino Transf (AST/SGOT) 28 5-34 U/L Alanine Aminotransferase (ALT/SGPT) 32 0-55 U/L Alkaline Phosphatase 69 40-136 U/L Myoglobin 79.8 10.0-92.0 NG/ML Troponin I < 0.30 <0.30 NG/ML B-Type Natriuretic Peptide 11.4 <100.0 PG/ML Total Protein 6.8 6.4-8.2 GM/DL Albumin 4.1 3.2-4.5 GM/DL Lipase 23 8-78 U/L My Orders Orders - EVANGELINA, DAVIN Yeung MD Cbc With Automated Diff (10/11/16 11:23) Magnesium (10/11/16 11:23) Chest 1 View, Ap/Pa Only (10/11/16 11:) Ekg Tracing (10/11/16 11:23) Cardiac Profile 1 (10/11/16 11:23) Comprehensive Metabolic Panel (10/11/16 11:) Myoglobin Serum (10/11/16 11:23) Protime With Inr (10/11/16:) Partial Thromboplastin Time (10/11/16 11:) O2 (10/11/16 11:) Monitor-Rhythm Ecg Trace Only (10/11/16 11:) Lipid Panel (10/12/16 06:00) Saline Lock/Iv-Start (10/11/16:) Lipase (10/11/16 11:23) BNP (10/11/16 11:23) Fibrin Degradation Products (10/11/16 11:23) Albuterol/Ipra Inhalation Soln (Duoneb I (10/11/16 11:30) Svn Sm Volume Nebulizer Rt-Rfs (10/11/16 11:23) Methylprednisolone Sod Succ (Solu-Medrol (10/11/16 12:30) Medications Given in ED Current Medications Medications Dose Ordered Sig/Bernice Route Start Time Stop Time Status Last Admin Dose Admin Albuterol/ Ipratropium 3 ml ONCE ONCE INH 10/11/16 11:30 10/11/16 11:31 DC 10/11/16 11:36 3 ML Vital Signs/I&O Vital Sign - Last 12Hours 10/11/16 10/11/16 10/11/16 11:17 11:17 11:36 Temp 97.5 Pulse 86 Resp 20 B/P (MAP) 142/86 Pulse Ox 92 92 91 O2 Delivery Nasal Cannula Nasal Cannula O2 Flow Rate 4.00 Blood Pressure Mean: 104 Progress Note : Time: 12:20 Progress Note There was no interval change in the patient's chest x-ray. The patient's BNP and cardiac enzymes were within normal limits. There was no evidence of acute current of injury or dysrhythmia on the patient's EKG. The patient's d-dimer was within normal limits. Patient was much improved with an additional DuoNeb treatment in the emergency department. I discussed the patient's findings and treatment with the patient and his . They would like to return home and will employ an additional breathing treatment at midday. I encouraged him to follow up closely with her primary care physician on Friday and return if any problems in the interim. They were agreeable to this plan. As the patient has responded well to a burst of steroids in the past for COPD I gave him 125 mg Solu-Medrol and placed him on prednisone for the weekend. Patient was released from the emergency department a stable and improved condition. Departure Impression Impression: Primary Impression: COPD exacerbation Disposition: 01 HOME, SELF-CARE Condition: Improved Departure-Patient Inst. Decision time for Depature: 12:25 Referrals: [facility] (PCP/Family) Primary Care Physician Patient Instructions: Cough, Adult (DC) Add. Discharge Instructions: Prednisone as prescribed. Increase nebulizer treatments to 3 times a day. Close follow-up [facility] on Friday. Return if any problems. All discharge instructions reviewed with patient and/or family. Voiced understanding. DAVIN HUTCHINSON MD Oct 11, 2016 11:31
[2016-10-11 11:42] LABS: BASOPHILS % (AUTO) 0 % (0-10); EOSINOPHILS # (AUTO) 0.1 10^3/uL (0.0-0.3); EOSINOPHILS % (AUTO) 1 % (0-10); LYMPHOCYTES # (AUTO) 1.7 X 10^3 (1.0-4.0); LYMPHOCYTES % (AUTO) 25 % (12-44); MEAN CORPUSCULAR HEMOGLOBIN 29 PG (25-34); MEAN CORPUSCULAR HGB CONC 32 G/DL (32-36); MEAN CORPUSCULAR VOLUME 91 FL (80-99); MEAN PLATELET VOLUME 9.3 FL (7.4-10.4); MONOCYTES % (AUTO) 14 % (0-12); NEUTROPHILS % (AUTO) 59 % (42-75); PLATELET COUNT 216 10^3/uL (130-400); RED BLOOD COUNT 4.33 10^6/uL (4.35-5.85); RED CELL DISTRIBUTION WIDTH 12.2 % (10.0-14.5); WHITE BLOOD COUNT 6.7 10^3/uL (4.3-11.0)
[2016-10-11 11:55] LABS: INR 1.1 (0.8-1.4); PROTHROMBIN TIME PATIENT 13.4 SEC (12.2-14.7)
[2016-10-11 11:58] LABS: ALANINE AMINOTRANSFERASE 32 U/L (0-55); ALBUMIN 4.1 GM/DL (3.2-4.5); ANION GAP 9 MMOL/L (5-14); ASPARTATE AMINO TRANSFERASE 28 U/L (5-34); BILIRUBIN,TOTAL 0.4 MG/DL (0.1-1.0); BLOOD UREA NITROGEN 8 MG/DL (7-18); BUN/CREATININE RATIO 9; CALCIUM 9.4 MG/DL (8.5-10.1); CARBON DIOXIDE 27 MMOL/L (21-32); CHLORIDE 104 MMOL/L (98-107); CREATININE SERUM 0.88 MG/DL (0.60-1.30); GFR ESTIMATED > 60; GLUCOSE 115 MG/DL (70-105); LIPASE 23 U/L (8-78); POTASSIUM 3.9 MMOL/L (3.6-5.0); SODIUM 140 MMOL/L (135-145); TOTAL PROTEIN 6.8 GM/DL (6.4-8.2)
[2016-10-11 12:04] LABS: MYOGLOBIN SERUM 79.8 NG/ML (10.0-92.0)
--- NOTE | 2016-10-11 12:10 | Diagnostic Imaging Report ---
INDICATION: Cough x3 days. PA chest obtained at 11:49 a.m. and compared with 08/16/16 FINDINGS: Heart is borderline in size. There is some residual scarring or atelectasis in both lung bases which appears similar to 08/16/16. There is no new consolidation or pneumothorax or pleural fluid. IMPRESSION: Residual scarring or atelectasis in both lung bases, similar to the prior study. No pneumothorax or pleural fluid or other new finding. Dictated by: Dictated on workstation # [id number]
[2016-10-11] MEDS ORDERED: methylPREDNISolone 125 MG (Solu-MEDROL) VIAL IVP ONE (12:30)
[2016-10-11 12:45] VITALS: BP 138/85
== END 2016-10-11 12:41 | disposition home or self-care (01) ==
LOC: EDUNIT# 11:04 → ER 11:06
DX: J44.1 Chronic obstructive pulmonary disease with (acute) exacerbation (principal); E11.9 Type 2 diabetes mellitus without complications; I10 Essential (primary) hypertension; E78.00 Pure hypercholesterolemia, unspecified; F03.90 Unspecified dementia, unspecified severity, without behavioral disturbance, psychotic disturbance, mood disturbance, and anxiety; K21.9 Gastro-esophageal reflux disease without esophagitis; M19.90 Unspecified osteoarthritis, unspecified site; F41.9 Anxiety disorder, unspecified; F32.9 Major depressive disorder, single episode, unspecified; Z85.828 Personal history of other malignant neoplasm of skin; Z85.46 Personal history of malignant neoplasm of prostate; Z87.891 Personal history of nicotine dependence; Z87.09 Personal history of other diseases of the respiratory system
CPT/HCPCS: 36415; 71010; 80053; 83690; 83735; 83874; 83880; 84484; 85025; 85379; 85610; 85730; 93005; 93041; 94640

== ENCOUNTER 2016-10-13 23:27 | Emergency (ER) | payer MEDICARE, MEDICAID ==
[~2016-10-13] VITALS: Ht 182.9 cm; Wt 99.8 kg
[2016-10-13 23:57] LABS: BASOPHILS % (AUTO) 0 % (0-10); EOSINOPHILS % (AUTO) 0 % (0-10); LYMPHOCYTES # (AUTO) 2.4 X 10^3 (1.0-4.0); LYMPHOCYTES % (AUTO) 21 % (12-44); MEAN CORPUSCULAR HEMOGLOBIN 30 PG (25-34); MEAN CORPUSCULAR HGB CONC 33 G/DL (32-36); MEAN CORPUSCULAR VOLUME 90 FL (80-99); MEAN PLATELET VOLUME 8.9 FL (7.4-10.4); MONOCYTES # (AUTO) 1.5 X 10^3 (0.0-1.0); MONOCYTES % (AUTO) 13 % (0-12); NEUTROPHILS # (AUTO) 7.4 X 10^3 (1.8-7.8); NEUTROPHILS % (AUTO) 65 % (42-75); PLATELET COUNT 240 10^3/uL (130-400); RED BLOOD COUNT 4.17 10^6/uL (4.35-5.85); RED CELL DISTRIBUTION WIDTH 12.3 % (10.0-14.5); WHITE BLOOD COUNT 11.4 10^3/uL (4.3-11.0)
[2016-10-14 00:07] LABS: PROTHROMBIN TIME PATIENT 13.1 SEC (12.2-14.7)
[2016-10-14] MEDS ORDERED: RT-ALBUTEROL/IPRATROPIUM 3 ML (DUONEB) VIAL INH ONE (00:15)
[2016-10-14] MEDS ORDERED: DEXAMETHASONE 4 MG/ML SDV (DECADRON) IH ONE (00:15)
[2016-10-14 00:16] LABS: ALANINE AMINOTRANSFERASE 36 U/L (0-55); ALBUMIN 4.2 GM/DL (3.2-4.5); ANION GAP 14 MMOL/L (5-14); ASPARTATE AMINO TRANSFERASE 26 U/L (5-34); BILIRUBIN,TOTAL 0.3 MG/DL (0.1-1.0); BLOOD UREA NITROGEN 15 MG/DL (7-18); BUN/CREATININE RATIO 17; CALCIUM 9.3 MG/DL (8.5-10.1); CARBON DIOXIDE 21 MMOL/L (21-32); CHLORIDE 106 MMOL/L (98-107); CREATINE KINASE 111 U/L (30-200); GFR ESTIMATED > 60; GLUCOSE 123 MG/DL (70-105); POTASSIUM 3.7 MMOL/L (3.6-5.0); SODIUM 141 MMOL/L (135-145); TOTAL PROTEIN 6.9 GM/DL (6.4-8.2)
[2016-10-14 00:22] LABS: TROPONIN I < 0.30 NG/ML (<0.30)
[2016-10-14] MEDS ORDERED: LEVO500T2 PO (01:11)
--- NOTE | 2016-10-14 01:11 | ED Cough/URI ---
General Chief Complaint: Cough/Cold/Flu Symptoms Stated Complaint: COUGH Nursing Triage Note: PT TO ED 3 W/ C/O COUGH X4 DAYS W/ NO IMPROVEMENT NOTED AFTER BEING SEEN IN THIS ED 10/11/16. PT PRESENTLY ON O2 FOR EMPHYSEMA. DENIES FEVER AT THIS TIME. Source: patient, old records, spouse History of Present Illness Time seen by provider: 23:30 Initial Comments PT ARRIVES VIA POV FROM HOME C/O COUGH X 1 WEEK WITH WHITE SPUTUM OCCASIONAL SHORTNESS OF BREATH SYMPTOMS WORSE WITH LAYING FLAT OR WITH COUGHING NO FEVER SLIGHT INCREASE IN CHRONIC LEG SWELLING NO CHEST PAIN PT WITH COPD AND WEARS O2 AT 3L/NC CONTINUOUSLY--DID NOT ARRIVE IN ER ON O2 PT SEEN HERE 10/11/16 FOR SAME --WAS GIVEN RX FOR PREDNISONE, AND INSTRUCTED TO USE NEBULIZER TID. PT STATES HE IS NOT BETTER, BUT NOT WORSE PCP: JOANNE Allergies and Home Medications Allergies Coded Allergies: aspirin (Unverified Allergy, Unknown, 05/20/14) codeine (Verified Allergy, Unknown, 04/07/06) hydrocodone (Unverified Allergy, Unknown, 10/16/15) Uncoded Allergies: SSRI (Allergy, Unknown, 05/20/14) TCA (Allergy, Unknown, 05/20/14) Home Medications Acetaminophen/Diphenhydramine 1 Each Tablet, Unknown Dose PO, (Reported) Albuterol Sulfate 2.5 Mg/3 Ml Vial.neb, 2.5 MG IH Q4H PRN for SHORTNESS OF BREATH, (Reported) Amlodipine Besylate 10 Mg Tablet, 10 MG PO DAILY, (Reported) Amoxicillin/Potassium Clav 1 Each Tablet, 1 EACH PO BID for 10 Days, #20 Ref 0 Prescribed by: ALBA BURRELL on 09/06/16 1213 Atorvastatin Calcium 40 Mg Tablet, 40 MG PO HS, (Reported) Azithromycin 250 Mg Tablet, 250 MG PO UD, #6 TAKE 2 TABLETS ON DAY ONE THEN TAKE 1 TABLET DAILY FOR FOUR MORE DAYS. Prescribed by: BOZENA WERNER on 06/21/16 1851 Benazepril HCl 20 Mg Tablet, 20 MG PO DAILY, (Reported) Benzonatate 100 Mg Capsule, 100 MG PO twice a day, #20 Prescribed by: TOMMY BONILLA on 05/12/16 1353 Cefdinir 300 Mg Capsule, 300 MG PO twice a day, #14 Prescribed by: TOMMY BONILLA on 05/12/16 1353 Chlorphen/Dm/Acetaminophen/GG 1 Each Tb.cp.seq, 1-2 TAB PO Q6H PRN for DRAINAGE, (Reported) Clonazepam 1 Mg Tablet, 1 MG PO Q8H PRN for ANXIETY, (Reported) Cyanocobalamin 50 Mcg Lozenge, 500 MCG PO DAILY, (Reported) Doxazosin Mesylate 4 Mg Tablet, 4 MG PO HS, (Reported) Fish Oil/Dha/Epa 1 Each Capsule, 1 EACH PO DAILY, (Reported) Fluticasone Propionate 9.9 Ml [place].susp, 9.9 ML NS DAILY for 30 Days, #1 Ref 0 Prescribed by: ALBA BURRELL on 09/06/16 1213 Glipizide 5 Mg Tablet, 5 MG PO DAILY, (Reported) Levocetirizine Dihydrochloride 5 Mg Tablet, 5 MG PO HS, (Reported) Levofloxacin 500 Mg Tablet, 500 MG PO DAILY, #10 Prescribed by: ROBBY LEWIS on 10/14/16 0111 Metformin HCl 500 Mg Tablet, 250 MG PO BID WITH MEALS, (Reported) TAKES 1/2 (500MG) TABLET Montelukast Sodium 10 Mg Tablet, 10 MG PO HS, (Reported) Montelukast Sodium 10 Mg Tablet, 10 MG PO HS, (Reported) Oxybutynin Chloride 10 Mg Tab.er.24, 10 MG PO DAILY, (Reported) Pantoprazole Sodium 40 Mg Tablet.dr, 40 MG PO HS, (Reported) Prednisone 20 Mg Tab, 20 MG PO DAILY, #4 Prescribed by: CEASAR CASTILLO on 05/20/16 0124 Prednisone 20 Mg Tab, 40 MG PO DAILY, #6 . Prescribed by: BOZENA WERNER on 06/21/16 1851 Prednisone 20 Mg Tab, 20 MG PO DAILY, #4 Prescribed by: CEASAR CASTILLO on 08/16/16 1310 Pregabalin 100 Mg Capsule, 100 MG PO BID, (Reported) Ranitidine HCl 150 Mg Tablet, 150 MG PO BID, (Reported) Rivastigmine 4.6 Mg Patch, 4.6 MG TD DAILY, (Reported) Sucralfate 1 Gm Tablet, 1 GM PO QID, (Reported) Tiotropium [place] 1 Inh Aerp, 1 CAP INH HS, (Reported) Tramadol HCl 50 Mg Tablet, 50 MG PO BID PRN for PAIN, (Reported) Triamcinolone Acetonide 15 Gm Cream..g., TOP BID, (Reported) 0.1% APPLY TO FEET Vilazodone Hydrochloride 10 Mg Tablet, 10 MG PO HS, (Reported) Constitutional: no symptoms reported, No fever EENTM: no symptoms reported Respiratory: see HPI, cough, dyspnea on exertion, orthopnea, phlegm, short of breath, No wheezing Cardiovascular: see HPI, No chest pain, edema, No palpitations, No syncope, No vascular heart diseas Gastrointestinal: no symptoms reported Genitourinary: no symptoms reported Musculoskeletal: no symptoms reported Skin: no symptoms reported Psychiatric/Neurological: No Symptoms Reported Hematologic/Lymphatic: No Symptoms Reported Past Tiniwrw-Rhefda-Znppxc Hx Patient Social History Alcohol Use: Denies Use Recreational Drug Use: No Smoking Status: Former Smoker Type Used: Cigarettes Former Smoker/When Quit: May 26, 1959 2nd Hand Smoke Exposure: No Recent Foreign Travel: No Contact w/Someone Who Travel: No Recent Infectious Disease Expo: No Recent Hopitalizations: No Immunizations Up To Date Tetanus Booster (TDap): Unknown Date of Pneumonia Vaccine: Feb 20, 2016 Date of Influenza Vaccine: Dec 20, 2015 Seasonal Allergies Seasonal Allergies: No Surgeries HX Surgeries: Yes Surgeries: Abdominal, Adenoidectomy, Eye Surgery, Prostatectomy, Tonsillectomy Respiratory Hx Respiratory Disorders: Yes Respiratory Disorders: Asthma, Pneumonia, Chronic Bronchitis, COPD Cardiovascular Hx Cardiac Disorders: Yes Cardiac Disorders: Chronic Edema/Swelling, High Cholesterol, Hypertension Neurological Hx Neurological Disorders: Yes Neurological Disorders: Dementia Reproductive System Hx Reproductive Disorders: No Sexually Transmitted Disease: No Genitourinary Hx Genitourinary Disorders: Yes (PROSTATE CANCER > 10 YEARS AGO) Genitourinary Disorders: Prostate Problems Gastrointestinal Hx Gastrointestinal Disorders: Yes Gastrointestinal Disorders: Abdominal Hernia, Gastroesophageal Reflux, Polyps, Hiatal Hernia Musculoskeletal Hx Musculoskeletal Disorders: Yes ("Lyrica for arthritis") Musculoskeletal Disorders: Arthritis Endocrine Hx Endocrine Disorders: Yes Endocrine Disorders: Diabetes, Non-Insulin dep HEENT HX ENT Disorders: Yes (tear duct dysfunction, vision deficit/disfigurement of right eye, sinusitis) Cancer Hx Cancer: Yes (PROSTATE CANCER-S/P SURGERY ONLY;BASAL CELL CA R EYELID) Cancer: Prostate, Skin Psychosocial Hx Psychiatric Problems: Yes Behavioral Health Disorders: Anxiety, Depression Integumentary HX Skin/Integumentary Disorder: Yes (SKIN CANCER) Blood Transfusions Hx Blood Disorders: No Adverse Reaction to a Blood Tr: No Family Medical History Significant Family History: No Pertinent Family Hx Family Medial History: FH: breast cancer G8 SISTER Physical Exam Vital Signs Vital Sign - Last 12Hours 10/13/16 23:37 Temp 98.1 Pulse 84 Resp 20 B/P (MAP) 132/75 Pulse Ox 93 O2 Delivery Nasal Cannula O2 Flow Rate 3.00 Capillary Refill : Less Than 3 Seconds General Appearance: WD/WN, no apparent distress HEENT: PERRL/EOMI, other (RIGHT EYE LIDS ECTROPIC/ATROPHIC) Neck: normal inspection Respiratory: no respiratory distress, no accessory muscle use, No rales, No stridor, wheezing (MILD EXPIRATORY WHEEZING RIGHT > LEFT) Cardiovascular: regular rate, rhythm, no JVD, no murmur Gastrointestinal: non tender, soft Extremities: no calf tenderness, pedal edema (2+ EDEMA BILATERALLY) Neurologic/Psychiatric: emt/dispatcher II-XII nml as tested, no motor/sensory deficits, alert, normal mood/affect, oriented x 3 (BUT POOR MEMORY) Skin: normal color, warm/dry Progress/Results/Core Measures Results/Orders Lab Results Laboratory Tests Test 10/13/16 23:49 Range/Units White Blood Count 11.4 H 4.3-11.0 10^3/uL Red Blood Count 4.17 L 4.35-5.85 10^6/uL Hemoglobin 12.3 L 13.3-17.7 G/DL Hematocrit 38 L 40-54 % Mean Corpuscular Volume 90 80-99 FL Mean Corpuscular Hemoglobin 30 25-34 PG Mean Corpuscular Hemoglobin Concent 33 32-36 G/DL Red Cell Distribution Width 12.3 10.0-14.5 % Platelet Count 240 130-400 10^3/uL Mean Platelet Volume 8.9 7.4-10.4 FL Neutrophils (%) (Auto) 65 42-75 % Lymphocytes (%) (Auto) 21 12-44 % Monocytes (%) (Auto) 13 H 0-12 % Eosinophils (%) (Auto) 0 0-10 % Basophils (%) (Auto) 0 0-10 % Neutrophils # (Auto) 7.4 1.8-7.8 X 10^3 Lymphocytes # (Auto) 2.4 1.0-4.0 X 10^3 Monocytes # (Auto) 1.5 H 0.0-1.0 X 10^3 Eosinophils # (Auto) 0.0 0.0-0.3 10^3/uL Basophils # (Auto) 0.0 0.0-0.1 10^3/uL Prothrombin Time 13.1 12.2-14.7 SEC INR Comment 1.0 0.8-1.4 Activated Partial Thromboplast Time 27 24-35 SEC Sodium Level 141 135-145 MMOL/L Potassium Level 3.7 3.6-5.0 MMOL/L Chloride Level 106 98-107 MMOL/L Carbon Dioxide Level 21 21-32 MMOL/L Anion Gap 14 5-14 MMOL/L Blood Urea Nitrogen 15 7-18 MG/DL Creatinine 0.90 0.60-1.30 MG/DL Estimat Glomerular Filtration Rate > 60 BUN/Creatinine Ratio 17 Glucose Level 123 H 70-105 MG/DL Calcium Level 9.3 8.5-10.1 MG/DL Magnesium Level 2.0 1.8-2.4 MG/DL Total Bilirubin 0.3 0.1-1.0 MG/DL Aspartate Amino Transf (AST/SGOT) 26 5-34 U/L Alanine Aminotransferase (ALT/SGPT) 36 0-55 U/L Alkaline Phosphatase 81 40-136 U/L Total Creatine Kinase 111 30-200 U/L Creatine Kinase MB 2.4 <6.6 NG/ML Troponin I < 0.30 <0.30 NG/ML B-Type Natriuretic Peptide 11.1 <100.0 PG/ML Total Protein 6.9 6.4-8.2 GM/DL Albumin 4.2 3.2-4.5 GM/DL Micro Results Microbiology 10/13/16 Blood Culture - Preliminary, Resulted No growth 10/13/16 Blood Culture - Preliminary, Resulted No growth My Orders Orders - JOSHUAROBBY Parikh DO Saline Lock/Iv-Start (10/13/16 23:41) O2 (10/13/16 23:41) Monitor-Rhythm Ecg Trace Only (10/13/16 23:41) BNP (10/13/16 23:41) Cbc With Automated Diff (10/13/16 23:41) Comprehensive Metabolic Panel (10/13/16 23:41) Creatine Kinase (10/13/16 23:41) Creatine Kinase Mb (10/13/16 23:41) Magnesium (10/13/16 23:41) Protime With Inr (10/13/16 23:41) Partial Thromboplastin Time (10/13/16 23:41) Troponin I (10/13/16 23:41) Blood Culture (10/13/16 23:41) Chest 1 View, Ap/Pa Only (10/14/16 00:01) Albuterol/Ipra Inhalation Soln (Duoneb I (10/14/16 00:15) Dexamethasone Injection (Decadron Inject (10/14/16 00:15) Rt Request For Service (10/14/16 00:04) Svn Sm Volume Nebulizer Rt-Rfs (10/14/16 00:04) Chest Pa/Lat (2 View) (10/14/16 00:38) Methylprednisolone Sod Succ (Solu-Medrol (10/14/16 01:15) Ceftriaxone Injection (Rocephin Injectio (10/14/16 01:15) Medications Given in ED Vital Signs/I&O Vital Sign - Last 12Hours 10/13/16 10/13/16 10/14/16 10/14/16 23:37 23:37 00:24 01:56 Temp 98.1 Pulse 84 83 Resp 20 20 B/P (MAP) 132/75 Pulse Ox 93 96 93 O2 Delivery Nasal Cannula Room Air Nasal Cannula Nasal Cannula O2 Flow Rate 3.00 3.00 3.00 3.00 Blood Pressure Mean: 94 Progress Note : Progress Note NO WHEEZING AND INCREASED AERATION AFTER NEB TREATMENT UNEVENTFUL ER STAY Diagnostic Imaging Comments CXR--CHRONIC CHANGES, NO ACUTE PROCESS--PENDING RADIOLOGIST REVIEW Reviewed: Reviewed by Me Departure Impression Impression: Primary Impression: Acute bronchitis Additional Impression: COPD exacerbation Disposition: HOME, SELF-CARE Condition: Improved Departure-Patient Inst. Referrals: [facility] (PCP/Family) Primary Care Physician Patient Instructions: Acute Bronchitis, Adult (DC), Exacerbation of COPD (DC) Add. Discharge Instructions: CONTINUE YOUR PREDNISONE PRESCRIBED CONTINUE YOUR NEBULIZER TREATMENTS PRESCRIBED TYLENOL NEEDED FOR PAIN FOLLOW UP WITH YOUR DR IN 2-3 DAYS FOR FURTHER CARE All discharge instructions reviewed with patient and/or family. Voiced understanding. Scripts Levofloxacin (Levaquin) 500 Mg Tablet 500 MG PO DAILY for INFECTION, #10 TAB Prov: ROBBY LEWIS DO 10/14/16 ROBBY LEWIS DO Oct 14, 2016 01:11
[2016-10-14] MEDS ORDERED: methylPREDNISolone 125 MG (Solu-MEDROL) VIAL IVP ONE (01:15)
[2016-10-14] MEDS ORDERED: cefTRIAXone INJECTION 1,000 MG in NS (IVPB) 50 ML IV ONE (01:15)
[2016-10-14 01:56] VITALS: BP 130/65
--- NOTE | 2016-10-14 06:51 | Diagnostic Imaging Report ---
INDICATION: Dyspnea. 0012 hours Comparison is made study of 10/11/2016. FINDINGS: There is suboptimal inspiration on the portable image. Heart size and pulmonary vascularity are at the upper limits of normal. No pneumothorax or consolidation is appreciated. IMPRESSION: Hypoventilation limits study. Otherwise, no acute abnormality or adverse change is appreciated. Dictated by: Dictated on workstation # [id number]
--- NOTE | 2016-10-14 06:52 | Diagnostic Imaging Report ---
INDICATION: Chronic lung disease and dyspnea PA and lateral views of the chest are obtained. Comparison is made to study of 10/14/2016. Overall heart size and pulmonary vascularity are within normal limits. There is air trapping bilaterally with prominence of interstitial markings in both lungs. There is mild hiatal hernia. No pneumothorax is seen. There is no significant pleural fluid. IMPRESSION: Interstitial markings remain prominent in the lung bases which may be due to COPD. No definite acute abnormality is identified. Dictated by: Dictated on workstation # [id number]
== END 2016-10-14 01:56 | disposition home or self-care (01) ==
LOC: EDUNIT# 23:27 → ER 23:29
DX: J44.0 Chronic obstructive pulmonary disease with (acute) lower respiratory infection (principal); F31.9 Bipolar disorder, unspecified; F41.9 Anxiety disorder, unspecified; E11.9 Type 2 diabetes mellitus without complications; M19.90 Unspecified osteoarthritis, unspecified site; K21.9 Gastro-esophageal reflux disease without esophagitis; R60.9 Edema, unspecified; E78.00 Pure hypercholesterolemia, unspecified; I10 Essential (primary) hypertension; J45.909 Unspecified asthma, uncomplicated; Z85.828 Personal history of other malignant neoplasm of skin; Z85.46 Personal history of malignant neoplasm of prostate; Z90.89 Acquired absence of other organs; Z90.79 Acquired absence of other genital organ(s); Z87.891 Personal history of nicotine dependence; Z79.84 Long term (current) use of oral hypoglycemic drugs
CPT/HCPCS: 36415; 71010; 71020; 80053; 82550; 82553; 83735; 83880; 84484; 85025; 85610; 85730; 87040; 94640

== ENCOUNTER 2016-10-24 14:57 | Emergency (ER) | payer MEDICARE, MEDICAID ==
[~2016-10-24] VITALS: Ht 182.9 cm; Wt 99.8 kg
[~2016-10-24 14:57] MED LIST changes: +LEVO500T2 PO
[2016-10-24] MEDS ORDERED: RT-ALBUTEROL/IPRATROPIUM 3 ML (DUONEB) VIAL INH ONE (16:00)
[2016-10-24 16:10] LABS: BASOPHILS % (AUTO) 0 % (0-10); EOSINOPHILS # (AUTO) 0.2 10^3/uL (0.0-0.3); EOSINOPHILS % (AUTO) 2 % (0-10); LYMPHOCYTES # (AUTO) 1.9 X 10^3 (1.0-4.0); LYMPHOCYTES % (AUTO) 25 % (12-44); MEAN CORPUSCULAR HEMOGLOBIN 29 PG (25-34); MEAN CORPUSCULAR HGB CONC 32 G/DL (32-36); MEAN CORPUSCULAR VOLUME 91 FL (80-99); MEAN PLATELET VOLUME 9.5 FL (7.4-10.4); MONOCYTES # (AUTO) 1.2 X 10^3 (0.0-1.0); MONOCYTES % (AUTO) 16 % (0-12); NEUTROPHILS # (AUTO) 4.4 X 10^3 (1.8-7.8); NEUTROPHILS % (AUTO) 57 % (42-75); PLATELET COUNT 179 10^3/uL (130-400); RED BLOOD COUNT 4.16 10^6/uL (4.35-5.85); RED CELL DISTRIBUTION WIDTH 12.1 % (10.0-14.5); WHITE BLOOD COUNT 7.7 10^3/uL (4.3-11.0)
[2016-10-24] MEDS ORDERED: CEFU250T80 PO (16:20)
[2016-10-24] MEDS ORDERED: PRD20T PO (16:20)
--- NOTE | 2016-10-24 16:20 | ED Cough/URI ---
General Chief Complaint: Cough/Cold/Flu Symptoms Stated Complaint: ASTHMA PROBLEMS Nursing Triage Note: PT C/O INCREASED COUGH AND SOA WITH EXERTION. PT IS O2 DEPENDENT Source: patient Exam Limitations: no limitations History of Present Illness Time seen by provider: 16:16 Initial Comments Out of to ER with clinical nose productive of white sputum since yesterday in addition to increased shortness of breath. He does wear oxygen at 3 L around- the-clock for history of COPD. He denies any fevers or chills. He states that he's been taking his breathing treatments to it at time 3 times a day when I actually scheduled for every 4 hours. He misinterpreted this. Timing/Duration: just prior to arrival Severity/Quality: productive cough (L) Associated Symptoms: cough Allergies and Home Medications Allergies Coded Allergies: aspirin (Unverified Allergy, Unknown, 05/20/14) codeine (Verified Allergy, Unknown, 04/07/06) hydrocodone (Unverified Allergy, Unknown, 10/16/15) Uncoded Allergies: SSRI (Allergy, Unknown, 05/20/14) TCA (Allergy, Unknown, 05/20/14) Home Medications Acetaminophen/Diphenhydramine 1 Each Tablet, Unknown Dose PO, (Reported) Albuterol Sulfate 2.5 Mg/3 Ml Vial.neb, 2.5 MG IH Q4H PRN for SHORTNESS OF BREATH, (Reported) Amlodipine Besylate 10 Mg Tablet, 10 MG PO DAILY, (Reported) Amoxicillin/Potassium Clav 1 Each Tablet, 1 EACH PO BID for 10 Days, #20 Ref 0 Prescribed by: ALBA BURRELL on 09/06/16 1213 Atorvastatin Calcium 40 Mg Tablet, 40 MG PO HS, (Reported) Azithromycin 250 Mg Tablet, 250 MG PO UD, #6 TAKE 2 TABLETS ON DAY ONE THEN TAKE 1 TABLET DAILY FOR FOUR MORE DAYS. Prescribed by: BOZENA WERNER on 06/21/16 1851 Benazepril HCl 20 Mg Tablet, 20 MG PO DAILY, (Reported) Benzonatate 100 Mg Capsule, 100 MG PO twice a day, #20 Prescribed by: TOMMY BONILLA on 05/12/16 1353 Cefdinir 300 Mg Capsule, 300 MG PO twice a day, #14 Prescribed by: TOMMY BONILLA on 05/12/16 1353 Chlorphen/Dm/Acetaminophen/GG 1 Each Tb.cp.seq, 1-2 TAB PO Q6H PRN for DRAINAGE, (Reported) Clonazepam 1 Mg Tablet, 1 MG PO Q8H PRN for ANXIETY, (Reported) Cyanocobalamin 50 Mcg Lozenge, 500 MCG PO DAILY, (Reported) Doxazosin Mesylate 4 Mg Tablet, 4 MG PO HS, (Reported) Fish Oil/Dha/Epa 1 Each Capsule, 1 EACH PO DAILY, (Reported) Fluticasone Propionate 9.9 Ml [place].susp, 9.9 ML NS DAILY for 30 Days, #1 Ref 0 Prescribed by: ALBA BURRELL on 09/06/16 1213 Glipizide 5 Mg Tablet, 5 MG PO DAILY, (Reported) Levocetirizine Dihydrochloride 5 Mg Tablet, 5 MG PO HS, (Reported) Levofloxacin 500 Mg Tablet, 500 MG PO DAILY, #10 Prescribed by: ROBBY LEWIS on 10/14/16 0111 Metformin HCl 500 Mg Tablet, 250 MG PO BID WITH MEALS, (Reported) TAKES 1/2 (500MG) TABLET Montelukast Sodium 10 Mg Tablet, 10 MG PO HS, (Reported) Montelukast Sodium 10 Mg Tablet, 10 MG PO HS, (Reported) Oxybutynin Chloride 10 Mg Tab.er.24, 10 MG PO DAILY, (Reported) Pantoprazole Sodium 40 Mg Tablet.dr, 40 MG PO HS, (Reported) Prednisone 20 Mg Tab, 20 MG PO DAILY, #4 Prescribed by: CEASAR CASTILLO on 05/20/16 0124 Prednisone 20 Mg Tab, 40 MG PO DAILY, #6 . Prescribed by: BOZENA WERNER on 06/21/16 1851 Prednisone 20 Mg Tab, 20 MG PO DAILY, #4 Prescribed by: CEASAR CASTILLO on 08/16/16 1310 Pregabalin 100 Mg Capsule, 100 MG PO BID, (Reported) Ranitidine HCl 150 Mg Tablet, 150 MG PO BID, (Reported) Rivastigmine 4.6 Mg Patch, 4.6 MG TD DAILY, (Reported) Sucralfate 1 Gm Tablet, 1 GM PO QID, (Reported) Tiotropium [place] 1 Inh Aerp, 1 CAP INH HS, (Reported) Tramadol HCl 50 Mg Tablet, 50 MG PO BID PRN for PAIN, (Reported) Triamcinolone Acetonide 15 Gm Cream..g., TOP BID, (Reported) 0.1% APPLY TO FEET Vilazodone Hydrochloride 10 Mg Tablet, 10 MG PO HS, (Reported) Constitutional: see HPI, No chills, No fever EENTM: see HPI Respiratory: see HPI, cough, short of breath Genitourinary: no symptoms reported Musculoskeletal: no symptoms reported Skin: no symptoms reported Psychiatric/Neurological: No Symptoms Reported Hematologic/Lymphatic: No Symptoms Reported Past [place]-Eljxsb-[place]h Hx Patient Social History Alcohol Use: Denies Use Recreational Drug Use: No Smoking Status: Former Smoker Type Used: Cigarettes Former Smoker/When Quit: May 26, 1959 2nd Hand Smoke Exposure: No Recent Foreign Travel: No Contact w/Someone Who Travel: No Recent Infectious Disease Expo: No Recent Hopitalizations: No Immunizations Up To Date Tetanus Booster (TDap): Unknown Date of Pneumonia Vaccine: Feb 20, 2016 Date of Influenza Vaccine: Dec 20, 2015 Seasonal Allergies Seasonal Allergies: No Surgeries HX Surgeries: Yes Surgeries: Abdominal, Adenoidectomy, Eye Surgery, Prostatectomy, Tonsillectomy Respiratory Hx Respiratory Disorders: Yes Respiratory Disorders: Asthma, Pneumonia, Chronic Bronchitis, COPD Cardiovascular Hx Cardiac Disorders: Yes Cardiac Disorders: Chronic Edema/Swelling, High Cholesterol, Hypertension Neurological Hx Neurological Disorders: Yes Neurological Disorders: Dementia Reproductive System Hx Reproductive Disorders: No Sexually Transmitted Disease: No Genitourinary Hx Genitourinary Disorders: Yes (PROSTATE CANCER > 10 YEARS AGO) Genitourinary Disorders: Prostate Problems Gastrointestinal Hx Gastrointestinal Disorders: Yes Gastrointestinal Disorders: Abdominal Hernia, Gastroesophageal Reflux, Polyps, Hiatal Hernia Musculoskeletal Hx Musculoskeletal Disorders: Yes ("Lyrica for arthritis") Musculoskeletal Disorders: Arthritis Endocrine Hx Endocrine Disorders: Yes Endocrine Disorders: Diabetes, Non-Insulin dep HEENT HX ENT Disorders: Yes (tear duct dysfunction, vision deficit/disfigurement of right eye, sinusitis) Cancer Hx Cancer: Yes (PROSTATE CANCER-S/P SURGERY ONLY;BASAL CELL CA R EYELID) Cancer: Prostate, Skin Psychosocial Hx Psychiatric Problems: Yes Behavioral Health Disorders: Anxiety, Depression Integumentary HX Skin/Integumentary Disorder: Yes (SKIN CANCER) Blood Transfusions Hx Blood Disorders: No Adverse Reaction to a Blood Tr: No Family Medical History Significant Family History: No Pertinent Family Hx Family Medial History: FH: breast cancer G8 SISTER Physical Exam Vital Signs Vital Sign - Last 12Hours 10/24/16 15:40 Temp 99.1 Pulse 86 Resp 20 B/P (MAP) 133/100 Pulse Ox 93 O2 Delivery Nasal Cannula O2 Flow Rate 4.00 Capillary Refill : Less Than 3 Seconds General Appearance: WD/WN, no apparent distress, other (no distress. No retractions or accessory muscle use. Lungs are clear to auscultation. There are however slightly diminished. 93 percent on his baseline 3 L.) Eyes: Bilateral Eye EOMI, Bilateral Eye Normal Inspection, Bilateral Eye PERRL HEENT: PERRL/EOMI, normal ENT inspection Respiratory: normal breath sounds, no respiratory distress, no accessory muscle use Cardiovascular: regular rate, rhythm, no murmur Gastrointestinal: normal bowel sounds, non tender, soft Extremities: normal range of motion, non-tender Neurologic/Psychiatric: alert, normal mood/affect, oriented x 3 Skin: normal color, warm/dry Progress/Results/Core Measures Results/Orders Lab Results Laboratory Tests Test 10/24/16 16:00 Range/Units My Orders Orders - BOZENA WERNER APRN Cbc With Automated Diff (10/24/16 15:51) Comprehensive Metabolic Panel (10/24/16 15:51) BNP (10/24/16 15:51) Chest Pa/Lat (2 View) (10/24/16 15:51) Albuterol/Ipra Inhalation Soln (Duoneb I (10/24/16 16:00) Svn Sm Volume Nebulizer Rt-Rfs (10/24/16 15:51) Medications Given in ED Current Medications Medications Dose Ordered Sig/Bernice Route Start Time Stop Time Status Last Admin Dose Admin Albuterol/ Ipratropium 3 ml ONCE ONCE INH 10/24/16 16:00 10/24/16 16:01 DC 10/24/16 16:03 3 ML Vital Signs/I&O Vital Sign - Last 12Hours 10/24/16 10/24/16 15:40 15:40 Temp 99.1 Pulse 86 Resp 20 B/P (MAP) 133/100 Pulse Ox 93 O2 Delivery Nasal Cannula Nasal Cannula O2 Flow Rate 4.00 4.00 Blood Pressure Mean: 111 Departure Impression Impression: Primary Impression: COPD exacerbation Disposition: 01 HOME, SELF-CARE Condition: Stable Departure-Patient Inst. Decision time for Depature: 16:18 Referrals: [facility] (PCP/Family) Primary Care Physician Patient Instructions: Acute Bronchitis, Adult (DC) Add. Discharge Instructions: 1. Return to ER for any concerns 2. Steroids as directed 3. All discharge instructions reviewed with patient and/or family. Voiced understanding. Scripts Cefuroxime Axetil (Cefuroxime) 250 Mg Tablet 250 MG PO BID, #10 TAB Prov: BOZENA WERNER APRN 10/24/16 Prednisone (Prednisone) 20 Mg Tab 40 MG PO DAILY, #8 TAB Prov: BOZENA WERNER APRN 10/24/16 BOZENA WERNER APRN Oct 24, 2016 16:20
[2016-10-24 16:30] LABS: ALANINE AMINOTRANSFERASE 31 U/L (0-55); ANION GAP 13 MMOL/L (5-14); ASPARTATE AMINO TRANSFERASE 22 U/L (5-34); BILIRUBIN,TOTAL 0.2 MG/DL (0.1-1.0); BLOOD UREA NITROGEN 7 MG/DL (7-18); BUN/CREATININE RATIO 8; CALCIUM 8.9 MG/DL (8.5-10.1); CARBON DIOXIDE 19 MMOL/L (21-32); CHLORIDE 109 MMOL/L (98-107); CREATININE SERUM 0.84 MG/DL (0.60-1.30); GFR ESTIMATED > 60; GLUCOSE 125 MG/DL (70-105); SODIUM 141 MMOL/L (135-145); TOTAL PROTEIN 6.5 GM/DL (6.4-8.2)
--- NOTE | 2016-10-24 16:45 | Diagnostic Imaging Report ---
EXAM: PA and lateral views of the chest. INDICATION: Cough and shortness of breath. FINDINGS: The lungs demonstrate bibasilar atelectasis. There is flattening of the diaphragm suggestive of COPD. The heart size is normal. No effusion or pneumothorax. The mediastinum and syl appear unremarkable. IMPRESSION: COPD. Minimal bibasilar atelectasis or scarring. Dictated by: Dictated on workstation # [id number]
[2016-10-24 17:10] VITALS: BP 133/100
== END 2016-10-24 17:10 | disposition home or self-care (01) ==
LOC: EDUNIT# 14:57 → ER 14:59
DX: J44.1 Chronic obstructive pulmonary disease with (acute) exacerbation (principal); J45.909 Unspecified asthma, uncomplicated; F41.9 Anxiety disorder, unspecified; F32.9 Major depressive disorder, single episode, unspecified; E11.9 Type 2 diabetes mellitus without complications; M19.90 Unspecified osteoarthritis, unspecified site; K21.9 Gastro-esophageal reflux disease without esophagitis; F03.90 Unspecified dementia, unspecified severity, without behavioral disturbance, psychotic disturbance, mood disturbance, and anxiety; R60.9 Edema, unspecified; E78.00 Pure hypercholesterolemia, unspecified; I10 Essential (primary) hypertension; Z90.89 Acquired absence of other organs; Z90.79 Acquired absence of other genital organ(s); Z98.890 Other specified postprocedural states; Z87.891 Personal history of nicotine dependence; Z99.81 Dependence on supplemental oxygen; Z85.828 Personal history of other malignant neoplasm of skin; Z85.46 Personal history of malignant neoplasm of prostate; Z79.84 Long term (current) use of oral hypoglycemic drugs
CPT/HCPCS: 36415; 71020; 80053; 83880; 85025; 94640; 99282

== ENCOUNTER 2016-11-15 15:09 | Emergency (ER) | payer MEDICARE, MEDICAID ==
[~2016-11-15] VITALS: Ht 188 cm; Wt 99.8 kg
[~2016-11-15 15:09] MED LIST changes: +AZIT250T12 PO; -AZIT250T5 PO; +CEFU250T80 PO
[2016-11-15 15:38] LABS: BASOPHILS % (AUTO) 0 % (0-10); EOSINOPHILS # (AUTO) 0.1 10^3/uL (0.0-0.3); EOSINOPHILS % (AUTO) 0 % (0-10); LYMPHOCYTES # (AUTO) 1.9 X 10^3 (1.0-4.0); LYMPHOCYTES % (AUTO) 16 % (12-44); MEAN CORPUSCULAR HEMOGLOBIN 29 PG (25-34); MEAN CORPUSCULAR HGB CONC 32 G/DL (32-36); MEAN CORPUSCULAR VOLUME 90 FL (80-99); MEAN PLATELET VOLUME 9.2 FL (7.4-10.4); MONOCYTES # (AUTO) 1.4 X 10^3 (0.0-1.0); MONOCYTES % (AUTO) 11 % (0-12); NEUTROPHILS # (AUTO) 8.7 X 10^3 (1.8-7.8); NEUTROPHILS % (AUTO) 72 % (42-75); PLATELET COUNT 188 10^3/uL (130-400); RED BLOOD COUNT 4.29 10^6/uL (4.35-5.85); RED CELL DISTRIBUTION WIDTH 12.5 % (10.0-14.5); WHITE BLOOD COUNT 12.1 10^3/uL (4.3-11.0)
[2016-11-15 15:48] LABS: PROTHROMBIN TIME PATIENT 13.6 SEC (12.2-14.7)
[2016-11-15 15:54] LABS: ABG BASE EXCESS -0.4 MMOL/L (-2.5-2.5); ABG HCO3 24 MMOL/L (23-27); ABG OXYGEN SATURATION 75 % (94-100); ABG PCO2 43 MMHG (35-45); ABG PH 7.37 (7.37-7.43); ABG PO2 45 MMHG (79-93); ABG TCO2 25.6 MMOL/L (21.0-31.0)
[2016-11-15 15:55] LABS: ALANINE AMINOTRANSFERASE 25 U/L (0-55); ANION GAP 13 MMOL/L (5-14); ASPARTATE AMINO TRANSFERASE 20 U/L (5-34); BILIRUBIN,TOTAL 0.9 MG/DL (0.1-1.0); BLOOD UREA NITROGEN 11 MG/DL (7-18); BUN/CREATININE RATIO 10; CALCIUM 9.4 MG/DL (8.5-10.1); CARBON DIOXIDE 22 MMOL/L (21-32); CHLORIDE 103 MMOL/L (98-107); CREATININE SERUM 1.06 MG/DL (0.60-1.30); GFR ESTIMATED > 60; GLUCOSE 111 MG/DL (70-105); MAGNESIUM 1.7 MG/DL (1.8-2.4); SODIUM 138 MMOL/L (135-145); TOTAL PROTEIN 6.7 GM/DL (6.4-8.2)
--- NOTE | 2016-11-15 15:55 | Diagnostic Imaging Report ---
INDICATION: Weakness, frequent falls, and hypoxia. COMPARISON: 10/24/2016. FINDINGS: Single view of the chest demonstrates cardiac enlargement without pulmonary edema or focal infiltrate. There is scarring and/or atelectasis in both lung bases which is stable. There is no pneumothorax. IMPRESSION: 1. Cardiac enlargement without pulmonary edema. 2. Stable basilar atelectasis and/or scarring. Dictated by: Dictated on workstation # [id number]
[2016-11-15 15:57] LABS: ALLENS TEST YES-POS; PATIENT TEMP 97.9
[2016-11-15 16:01] LABS: TROPONIN I < 0.30 NG/ML (<0.30)
--- NOTE | 2016-11-15 16:06 | ED General ---
General Chief Complaint: General Problems/Pain Stated Complaint: WEAKNESS Nursing Triage Note: TO ED PER EMS. ACCORDING TO HE HAS BEEN WEAK AND FALLING. Nursing Sepsis Screen: No Definite Risk Source of Information: Patient, EMS, Old Records, Spouse History of Present Illness Time Seen by Provider: 15:09 Initial Comments PT ARRIVES VIA EMS FROM HOME PT HAS CHRONIC GENERALIZED WEAKNESS, AND FREQUENT FALLS-STATES HIS KNEES GIVE OUT/LEGS ARE TOO WEAK TO STAND--CHRONIC FOR YEARS STATES HE HAS HAD SHOTS IN KNEES WHICH HAVE HELPED AT TIMES IN THE PAST, LAST SHOTS WERE 6 MONTHS AGO BUT NO IMPROVEMENT IN SYMPTOMS AFTER THOSE INJECTIONS NO INJURIES FROM FALLS AND DID NOT HIT HEAD OR HAVE LOSS OF CONSCIOUSNESS PT STATES "JUST COULDN'T MOVE FAR TODAY-I COULD WALK A LITTLE AND MY LEGS JUST GIVE OUT" --PT HAS A POWER CHAIR BUT REFUSES TO USE IT AT HOME. PT ALSO HAS A WALKER WHICH HE ALSO REFUSES TO USE AT HOME STATES SHE JUST CAN'T HELP HIM GET UP ANYMORE SYMPTOMS HAVE BEEN GETTING WORSE OVER THE PAST 6 + MONTHS, AND ARE NO DIFFERENT TODAY IN ANY WAY PT HAS NO SPECIFIC COMPLAINTS, OTHER THAN THE ABOVE. PT STATES HE FEELS FINE OTHERWISE PCP: [facility], [facility] ASIM LINARES Allergies and Home Medications Allergies Coded Allergies: aspirin (Unverified Allergy, Unknown, 05/20/14) codeine (Verified Allergy, Unknown, 04/07/06) hydrocodone (Unverified Allergy, Unknown, 10/16/15) Uncoded Allergies: SSRI (Allergy, Unknown, 05/20/14) TCA (Allergy, Unknown, 05/20/14) Home Medications Acetaminophen/Diphenhydramine 1 Each Tablet, Unknown Dose PO, (Reported) Albuterol Sulfate 2.5 Mg/3 Ml Vial.neb, 2.5 MG IH Q4H PRN for SHORTNESS OF BREATH, (Reported) Amlodipine Besylate 10 Mg Tablet, 10 MG PO DAILY, (Reported) Atorvastatin Calcium 40 Mg Tablet, 40 MG PO HS, (Reported) Azithromycin 250 Mg Tablet, 250 MG PO UD, #6 TAKE 2 TABLETS ON DAY ONE THEN TAKE 1 TABLET DAILY FOR FOUR MORE DAYS. Prescribed by: BOZENA WERNER on 06/21/16 482 Benazepril HCl 20 Mg Tablet, 20 MG PO DAILY, (Reported) Benzonatate 100 Mg Capsule, 100 MG PO twice a day, #20 Prescribed by: TOMMY BONILLA on 05/12/16 1353 Chlorphen/Dm/Acetaminophen/GG 1 Each Tb.cp.seq, 1-2 TAB PO Q6H PRN for DRAINAGE, (Reported) Clonazepam 1 Mg Tablet, 1 MG PO Q8H PRN for ANXIETY, (Reported) Cyanocobalamin 50 Mcg Lozenge, 500 MCG PO DAILY, (Reported) Doxazosin Mesylate 4 Mg Tablet, 4 MG PO HS, (Reported) Fish Oil/Dha/Epa 1 Each Capsule, 1 EACH PO DAILY, (Reported) Fluticasone Propionate 9.9 Ml [place].susp, 9.9 ML NS DAILY for 30 Days, #1 Ref 0 Prescribed by: ALBA BURRELL on 09/06/16 1213 Glipizide 5 Mg Tablet, 5 MG PO DAILY, (Reported) Levocetirizine Dihydrochloride 5 Mg Tablet, 5 MG PO HS, (Reported) Metformin HCl 500 Mg Tablet, 250 MG PO BID WITH MEALS, (Reported) TAKES 1/2 (500MG) TABLET Montelukast Sodium 10 Mg Tablet, 10 MG PO HS, (Reported) Montelukast Sodium 10 Mg Tablet, 10 MG PO HS, (Reported) Oxybutynin Chloride 10 Mg Tab.er.24, 10 MG PO DAILY, (Reported) Pantoprazole Sodium 40 Mg Tablet.dr, 40 MG PO HS, (Reported) Prednisone 20 Mg Tab, 40 MG PO DAILY, #8 Prescribed by: BOZENA WERNER on 10/24/16 1620 Pregabalin 100 Mg Capsule, 100 MG PO BID, (Reported) Ranitidine HCl 150 Mg Tablet, 150 MG PO BID, (Reported) Rivastigmine 4.6 Mg Patch, 4.6 MG TD DAILY, (Reported) Sucralfate 1 Gm Tablet, 1 GM PO QID, (Reported) Tiotropium [place] 1 Inh Aerp, 1 CAP INH HS, (Reported) Tramadol HCl 50 Mg Tablet, 50 MG PO BID PRN for PAIN, (Reported) Triamcinolone Acetonide 15 Gm Cream..g., TOP BID, (Reported) 0.1% APPLY TO FEET Vilazodone Hydrochloride 10 Mg Tablet, 10 MG PO HS, (Reported) Constitutional: see HPI, weakness EENTM: no symptoms reported Respiratory: no symptoms reported Cardiovascular: no symptoms reported Gastrointestinal: no symptoms reported Genitourinary: no symptoms reported Musculoskeletal: see HPI Skin: no symptoms reported Psychiatric/Neurological: No Symptoms Reported, Denies Numbness, Denies Paresthesia, Denies Tingling, Denies Weakness Hematologic/Lymphatic: No Symptoms Reported Immunological/Allergic: no symptoms reported Past Zazwxao-Pfxwby-Xiyypt Hx Patient Social History Alcohol Use: Denies Use Recreational Drug Use: No Smoking Status: Former Smoker Type Used: Cigarettes Former Smoker/When Quit: May 26, 1959 2nd Hand Smoke Exposure: No Recent Foreign Travel: No Contact w/Someone Who Travel: No Recent Infectious Disease Expo: No Recent Hopitalizations: No Immunizations Up To Date Tetanus Booster (TDap): Unknown Date of Pneumonia Vaccine: Feb 20, 2016 Date of Influenza Vaccine: Dec 20, 2015 Seasonal Allergies Seasonal Allergies: No Surgeries HX Surgeries: Yes Surgeries: Abdominal, Adenoidectomy, Eye Surgery, Prostatectomy, Tonsillectomy Respiratory Hx Respiratory Disorders: Yes Respiratory Disorders: Asthma, Pneumonia, Chronic Bronchitis, COPD Cardiovascular Hx Cardiac Disorders: Yes Cardiac Disorders: Chronic Edema/Swelling, High Cholesterol, Hypertension Neurological Hx Neurological Disorders: Yes Neurological Disorders: Dementia Reproductive System Hx Reproductive Disorders: No Sexually Transmitted Disease: No Genitourinary Hx Genitourinary Disorders: Yes (PROSTATE CANCER > 10 YEARS AGO) Genitourinary Disorders: Prostate Problems Gastrointestinal Hx Gastrointestinal Disorders: Yes Gastrointestinal Disorders: Abdominal Hernia, Gastroesophageal Reflux, Polyps, Hiatal Hernia Musculoskeletal Hx Musculoskeletal Disorders: Yes ("Lyrica for arthritis"; GENERALIZED WEAKNESS ) Musculoskeletal Disorders: Arthritis Endocrine Hx Endocrine Disorders: Yes Endocrine Disorders: Diabetes, Non-Insulin dep HEENT HX ENT Disorders: Yes (tear duct dysfunction, vision deficit/disfigurement of right eye, sinusitis) Cancer Hx Cancer: Yes (PROSTATE CANCER-S/P SURGERY ONLY;BASAL CELL CA R EYELID) Cancer: Prostate, Skin Psychosocial Hx Psychiatric Problems: Yes Behavioral Health Disorders: Anxiety, Depression Integumentary HX Skin/Integumentary Disorder: Yes (SKIN CANCER) Blood Transfusions Hx Blood Disorders: No Adverse Reaction to a Blood Tr: No Family Medical History Significant Family History: No Pertinent Family Hx Family Medial History: FH: breast cancer G8 SISTER Physical Exam Vital Signs Vital Sign - Last 12Hours 11/15/16 15:09 Temp 97.9 Pulse 82 Resp 18 B/P (MAP) 117/75 Pulse Ox 89 O2 Delivery Nasal Cannula O2 Flow Rate 3.00 Capillary Refill : Less Than 3 Seconds General Appearance: No Apparent Distress, WD/WN, Other (MALODOROUS, UNKEMPT) HEENT: Other (RIGHT EYELID ECTROPIC/DEFORMITY--CHRONIC/ STABLE APPEARANCE. 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 Norm as Tested Skin: Normal Color, Warm/Dry Progress/Results/Core Measures Results/Orders Lab Results Laboratory Tests Test 11/15/16 15:19 11/15/16 15:27 Range/Units Blood Gas Puncture Site RR Blood Gas Patient Temperature 97.9 Arterial Blood pH 7.37 7.37-7.43 Arterial Blood Partial Pressure CO2 43 35-45 MMHG Arterial Blood Partial Pressure O2 45 L 79-93 MMHG Arterial Blood HCO3 24 23-27 MMOL/L Arterial Blood Total CO2 25.6 21.0-31.0 MMOL/L Arterial Blood Oxygen Saturation 75 L 94-100 % Arterial Blood Base Excess -0.4 -2.5-2.5 MMOL/L Barber Test YES-POS Blood Gas Ventilator Setting NO Blood Gas Inspired Oxygen 4 White Blood Count 12.1 H 4.3-11.0 10^3/uL Red Blood Count 4.29 L 4.35-5.85 10^6/uL Hemoglobin 12.5 L 13.3-17.7 G/DL Hematocrit 39 L 40-54 % Mean Corpuscular Volume 90 80-99 FL Mean Corpuscular Hemoglobin 29 25-34 PG Mean Corpuscular Hemoglobin Concent 32 32-36 G/DL Red Cell Distribution Width 12.5 10.0-14.5 % Platelet Count 188 130-400 10^3/uL Mean Platelet Volume 9.2 7.4-10.4 FL Neutrophils (%) (Auto) 72 42-75 % Lymphocytes (%) (Auto) 16 12-44 % Monocytes (%) (Auto) 11 0-12 % Eosinophils (%) (Auto) 0 0-10 % Basophils (%) (Auto) 0 0-10 % Neutrophils # (Auto) 8.7 H 1.8-7.8 X 10^3 Lymphocytes # (Auto) 1.9 1.0-4.0 X 10^3 Monocytes # (Auto) 1.4 H 0.0-1.0 X 10^3 Eosinophils # (Auto) 0.1 0.0-0.3 10^3/uL Basophils # (Auto) 0.0 0.0-0.1 10^3/uL Prothrombin Time 13.6 12.2-14.7 SEC INR Comment 1.0 0.8-1.4 Activated Partial Thromboplast Time 33 24-35 SEC Sodium Level 138 135-145 MMOL/L Potassium Level 4.0 3.6-5.0 MMOL/L Chloride Level 103 98-107 MMOL/L Carbon Dioxide Level 22 21-32 MMOL/L Anion Gap 13 5-14 MMOL/L Blood Urea Nitrogen 11 7-18 MG/DL Creatinine 1.06 0.60-1.30 MG/DL Estimat Glomerular Filtration Rate > 60 BUN/Creatinine Ratio 10 Glucose Level 111 H 70-105 MG/DL Calcium Level 9.4 8.5-10.1 MG/DL Magnesium Level 1.7 L 1.8-2.4 MG/DL Total Bilirubin 0.9 0.1-1.0 MG/DL Aspartate Amino Transf (AST/SGOT) 20 5-34 U/L Alanine Aminotransferase (ALT/SGPT) 25 0-55 U/L Alkaline Phosphatase 55 40-136 U/L Troponin I < 0.30 <0.30 NG/ML B-Type Natriuretic Peptide 24.4 <100.0 PG/ML Total Protein 6.7 6.4-8.2 GM/DL Albumin 4.0 3.2-4.5 GM/DL My Orders Orders - JOSHUA,ROBBY K DO Saline Lock/Iv-Start (11/15/16 15:19) Ekg Tracing (11/15/16 15:19) O2 (11/15/16 15:19) Monitor-Rhythm Ecg Trace Only (11/15/16 15:19) Arterial Blood Gas (11/15/16 15:19) BNP (11/15/16 15:19) Cbc With Automated Diff (11/15/16 15:19) Comprehensive Metabolic Panel (11/15/16 15:19) Magnesium (11/15/16 15:19) Protime With Inr (11/15/16 15:19) Partial Thromboplastin Time (11/15/16 15:19) Troponin I (11/15/16 15:19) Chest 1 View, Ap/Pa Only (11/15/16 15:19) Vital Signs/I&O Blood Pressure Mean: 89 Progress Note : Progress Note DISCUSSED WITH PT AND THAT HE MAY NEED ASSISTED LIVING OR PRISON CARE SHE FEELS THAT SHE CAN NO LONGER CARE FOR HIM, BUT THIS IS AN ONGOING ISSUE FOR MONTHS AND IS NOT ANY DIFFERENT TODAY, DOES NOT MEET ANY HOSPITAL ADMISSION CRITERIA, NO INJURIES, AND TESTS DONE IN ER ESSENTIALLY NORMAL SHE STATES THIS HAS BEEN DISCUSSED, BUT HAS NEVER PURSUED IT. ADVISED THAT SHE SHOULD CALL [facility] TODAY AND ARRANGE FOLLOW UP APPOINTMENT TO DISCUSS THE ABOVE. PT ALREADY HAS HOME HEALTH SUPPORT. O2 SATS ARE NORMAL ON ROOM AIR WHEN PT HOLDS HIS HEAD UP, BUT PT FREQUENTLY SITS WITH 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 AND SATS WILL DROP WHEN HE DOES THIS , BUT PT COMPLETELY ASYMPTOMATIC WITH THIS. ALSO DISCUSSED WITH PT AND THAT HE NEEDS TO USE HIS POWER CHAIR AT ALL TIMES, AND NOT TRY TO WALK ON HIS OWN. COMFORTABLE TAKING PT HOME. ECG Initial ECG Impression Time: 15:53 Initial ECG Rate: 80 Initial ECG Rhythm: Normal Sinus Diagnostic Imaging Comments CXR--NO ACUTE PROCESS, PER RADIOLOGIST REPORT @ 1600 Reviewed: Reviewed by Me Departure Impression Impression: Primary Impression: Falls frequently Additional Impression: CHRONIC GENERALIZED WEAKNESS Disposition: 01 HOME, SELF-CARE Condition: Stable Departure-Patient Inst. Referrals: [facility] (PCP/Family) Primary Care Physician Patient Instructions: Getting Up From a Fall, Preventing Falls in the Older Adult Add. Discharge Instructions: USE YOUR ELECTRIC WHEELCHAIR/POWER CHAIR AT ALL TIMES FOLLOW UP WITH YOUR DR NEXT WEEK FOR FURTHER CARE All discharge instructions reviewed with patient and/or family. Voiced understanding. ROBBY LEWIS DO Nov 15, 2016 16:06
[2016-11-15 17:04] VITALS: BP 122/69
[2017-01-26] MEDS ORDERED: GLIP5TAB13 PO (14:14)
[2017-01-26] MEDS ORDERED: TR1C15 TP (18:02)
[2017-01-26] MEDS ORDERED: MONT10TA24 PO (18:02)
[2017-01-26] MEDS ORDERED: RIVA1PAT11 TD (18:02)
[2017-01-26] MEDS ORDERED: RANI150T11 PO (18:02)
[2017-01-26] MEDS ORDERED: MIRA25TA PO (18:02)
[2017-01-26] MEDS ORDERED: METF500T4 PO (18:02)
[2017-01-27] MEDS ORDERED: AZIT250T12 PO (11:28)
[2017-01-27] MEDS ORDERED: CEFP200T2 PO (11:31)
== END 2016-11-15 17:11 | disposition home or self-care (01) ==
LOC: EDUNIT# 15:09 → ER 15:10
DX: R53.1 Weakness (principal); R29.6 Repeated falls; J44.9 Chronic obstructive pulmonary disease, unspecified; E78.00 Pure hypercholesterolemia, unspecified; I10 Essential (primary) hypertension; F03.90 Unspecified dementia, unspecified severity, without behavioral disturbance, psychotic disturbance, mood disturbance, and anxiety; K21.9 Gastro-esophageal reflux disease without esophagitis; E11.9 Type 2 diabetes mellitus without complications; F41.9 Anxiety disorder, unspecified; F32.9 Major depressive disorder, single episode, unspecified; M19.90 Unspecified osteoarthritis, unspecified site; Z87.19 Personal history of other diseases of the digestive system; Z85.828 Personal history of other malignant neoplasm of skin; Z86.010 Personal history of colon polyps; Z80.42 Family history of malignant neoplasm of prostate; Z87.09 Personal history of other diseases of the respiratory system; Z79.84 Long term (current) use of oral hypoglycemic drugs; Z87.891 Personal history of nicotine dependence; Z90.89 Acquired absence of other organs; Z90.79 Acquired absence of other genital organ(s)
CPT/HCPCS: 36415; 71010; 80053; 82805; 83735; 83880; 84484; 85025; 85610; 85730; 93005; 93041

== ENCOUNTER → 2016-11-27 | Outpatient (CLI) | payer MEDICARE, MEDICAID ==
[~2016-11-27] MED LIST changes: +CEFP200T2 PO; +GLYC15DR3 OU; +GUAI5SYR PO; +IPRA3AMP IH; +MINE3.5O OU; +MIRA25TA PO; +MULT-35 PO; +RANI150T11 PO; +RT-ALBUTEROL SULF 2.5 MG/3 ML PRE-MIX VIAL IH ONE; +TR1C15 TP
== END ==
LOC: RT 13:02
PROVIDERS: ATTEND Internal Medicine Critical Care Medicine
DX: J44.9 Chronic obstructive pulmonary disease, unspecified (principal); K21.9 Gastro-esophageal reflux disease without esophagitis
CPT/HCPCS: 94060; 94640; 94761

== ENCOUNTER 2016-12-05 21:14 | Inpatient (IN) | payer MEDICARE, MEDICAID ==
[~2016-12-05] VITALS: Ht 182.9 cm; Wt 104.3 kg
[~2016-12-05 21:14] MED LIST changes: -CEFP200T2 PO; -GLYC15DR3 OU; -GUAI5SYR PO; -IPRA3AMP IH; -MINE3.5O OU; -MIRA25TA PO; -MULT-35 PO; -RANI150T11 PO; -RT-ALBUTEROL SULF 2.5 MG/3 ML PRE-MIX VIAL IH ONE; -TR1C15 TP
--- OUTSIDE RECORDS SUMMARY | 2016-12-05 21:20 | XMS REPORT ---
Author Author ASIM LINARES [facility] Address [address] [place] [address] Care Team Providers Care Production Administrative Assistant Name Role Phone ASIM LINARES Unavailable PROBLEMS Type Condition ICD9-CM Code QIJ20-FM Code Onset Dates Condition Status SNOMED Code Problem Mixed hyperlipidemia E78.2 Active 004420260 Problem Osteoarthritis of both knees, unspecified osteoarthritis type M17.0 Active 095108544 Problem Unspecified asthma with (acute) exacerbation J45.901 Active 071473664 Problem COPD exacerbation J44.1 Active 498226312 Problem 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 Active 317513135 Problem Actinic keratosis L57.0 Active 239746496 Problem Chronic pain syndrome G89.4 Active 386705668 Problem Unspecified symptoms and signs involving cognitive functions and awareness R41.9 Active 559829619 Problem Hiatal hernia K44.9 Active 67344170 Problem Chronic GERD K21.9 Active 091285850 Problem Allergic rhinitis, unspecified allergic rhinitis trigger, unspecified rhinitis seasonality J30.9 Active 46997311 Problem Type 2 diabetes mellitus with diabetic neuropathy, without long-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 Active 82693067 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 Active 4671430 Problem Onychia of toe, unspecified laterality L03.039 Active 350218562 Problem Hypoxia R09.02 Active 999895156 Problem Arthritis of both knees M19.90 Active 990108738 Problem Eye drainage H57.8 Active 13103467 Problem Essential hypertension I10 Active 51236173 Problem Chronic obstructive pulmonary disease, unspecified COPD type J44.9 Active 40869957 Problem Anxiety F41.9 Active 73244084 ALLERGIES Unknown Allergies SOCIAL HISTORY No smoking Hx information available PLAN OF CARE VITAL SIGNS MEDICATIONS Medication Instructions Dosage Frequency Start Date End Date Duration Status Lyrica 100 MG Orally Twice a day 1 capsule 12h 28 days Active RESULTS No Results PROCEDURES No Known procedures IMMUNIZATIONS No Known Immunizations
--- OUTSIDE RECORDS SUMMARY | 2016-12-05 21:21 | XMS REPORT ---
Author Author ASIM LINARES [facility] Address [address] [place] [address] Care Team Providers Care Cover Maker Name Role Phone ASIM LINARES Unavailable PROBLEMS Type Condition ICD9-CM Code [id number] Code Onset Dates Condition Status SNOMED Code Problem Mixed hyperlipidemia E78.2 Active 973665214 Problem Osteoarthritis of both knees, unspecified osteoarthritis type M17.0 Active 481810644 Problem Unspecified asthma with (acute) exacerbation J45.901 Active 864589138 Problem COPD exacerbation J44.1 Active 256785839 Problem 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 Active 901487340 Problem Actinic keratosis L57.0 Active 604875097 Problem Chronic pain syndrome G89.4 Active 113883748 Problem Unspecified symptoms and signs involving cognitive functions and awareness R41.9 Active 831510034 Problem Hiatal hernia K44.9 Active 64764294 Problem Chronic GERD K21.9 Active 790391927 Problem Allergic rhinitis, unspecified allergic rhinitis trigger, unspecified rhinitis seasonality J30.9 Active 10608777 Problem Type 2 diabetes mellitus with diabetic neuropathy, without long-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 Active 42832687 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 Active 8740597 Problem Onychia of toe, unspecified laterality L03.039 Active 211378521 Problem Hypoxia R09.02 Active 353410309 Problem Arthritis of both knees M19.90 Active 707464491 Problem Eye drainage H57.8 Active 93246839 Problem Essential hypertension I10 Active 50702063 Problem Chronic obstructive pulmonary disease, unspecified COPD type J44.9 Active 49053289 Problem Anxiety F41.9 Active 40940602 ALLERGIES Substance Reaction Event Type Date Status Hydrocodone-Acetaminophen Unknown Drug Allergy Mar, Active Codeine Sulfate Unknown Drug Allergy Mar, Active Aspirin Unknown Drug Allergy Mar, Active SOCIAL HISTORY No smoking Hx information available PLAN OF CARE Activity Details Follow Up as needed and regular follow up Reason: VITAL SIGNS Height 72 in 2016-04-04 Weight 236 lbs 2016-04-04 Temperature 98.3 degrees Fahrenheit 2016-04-04 Heart Rate 80 bpm 2016-04-04 Respiratory Rate 20 2016-04-04 BMI 32.00 kg/m2 2016-04-04 Blood pressure systolic 130 mmHg 2016-04-04 Blood pressure diastolic 70 mmHg 2016-04-04 MEDICATIONS Medication Instructions Dosage Frequency Start Date End Date Duration Status Oxygen 2 L/NC by inhalation route as directed as directed Feb, 12 months Active Benazepril HCl 20 mg Orally Once a day 1 tablet 24h Active Amlodipine Besylate 10 MG Orally Once a day 1 tablet 24h Active Clonazepam 1 MG Orally 3x a day prn must last 28 days 1 tablet Active Voltaren 1 % Transdermal 3-4 times a week 1 gram Mar, Active Lyrica 100 MG Orally Twice a day 1 capsule 12h 28 days Active Atorvastatin Calcium 40 MG Orally Once a day 1 tablet 24h Active Coricidin HBP Day/Night Cold 10-20 &15-200-2 MG Active Clotrimazole 1 % Externally Twice a day 1 application to affected area 12h Jan, Mar, 28 day(s) Active Levocetirizine Dihydrochloride 5 MG Orally Once a day 1 tablet in the evening 24h Active Albuterol Sulfate (2.5 MG/3ML) 0.083% Inhalation every 4 hours as needed 3 ml Active Fish Oil 1000 MG Orally Twice a day 1 capsule 12h Active Tramadol HCl 50 mg Orally every 12 hrs must last 28 days 1 tablet as needed Active Sucralfate 1 GM Orally 4x a day 1 tablet on an empty stomach Active Exelon 4.6 MG/24HR Transdermal Once a day 1 patch to skin 24h Active Sennosides 15 MG Orally Once a day 1 tablet at bedtime as needed 24h Active Viibryd 10 MG Orally Once a day 1 tablet with food 24h Active Triamcinolone Acetonide 0.1 % Externally Twice a day to as needed 1 application to affected area Jan, Active GlipiZIDE 5 mg Orally Once a day 1 tablet 24h 30 days Active Pantoprazole Sodium 40 MG Orally Once a day 1 tablet 24h Active Doxazosin Mesylate 4 MG Orally Once a day 1 tablet 24h Active Metformin HCl 500 MG Orally Twice a day 1/2 tablet 12h Active Oxybutynin Chloride ER 15 MG Orally Once a day 1 tablet 24h Active Montelukast Sodium 10 MG Orally Once a day 1 tablet in the evening 24h Active RESULTS No Results PROCEDURES Procedure Date Ordered Related Diagnosis Body Site [facility] VISIT ESTABLISHED PATIENT Apr 04, 2016 Office Visit, Est Pt., Level 4 Apr 04, 2016 IMMUNIZATIONS No Known Immunizations
--- OUTSIDE RECORDS SUMMARY | 2016-12-05 21:21 | XMS REPORT ---
Author Author ASIM LINARES [facility] Address [address] [place] [address] Care Team Providers Care Affirmative Action Officer Name Role Phone ASIM LINARES Unavailable PROBLEMS Type Condition ICD9-CM Code [id number] Code Onset Dates Condition Status SNOMED Code Problem Type 2 diabetes mellitus with diabetic neuropathy, without long-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 Active 35034710 Problem Osteoarthritis of both knees, unspecified osteoarthritis type M17.0 Active 722576754 Problem Unspecified asthma with (acute) exacerbation J45.901 Active 803403102 Problem COPD exacerbation J44.1 Active 152083730 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 Active 7345696 Problem Actinic keratosis L57.0 Active 534398330 Problem Chronic pain syndrome G89.4 Active 235252248 Problem Unspecified symptoms and signs involving cognitive functions and awareness R41.9 Active 200029712 Problem Hiatal hernia K44.9 Active 26379421 Problem Chronic GERD K21.9 Active 646128088 Problem Mixed hyperlipidemia E78.2 Active 988059184 Problem Anxiety F41.9 Active 55573964 Problem 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 Active 175751105 Problem Allergic rhinitis, unspecified allergic rhinitis trigger, unspecified rhinitis seasonality J30.9 Active 52307447 Problem Eye drainage H57.8 Active 62732365 Problem Arthritis of both knees M19.90 Active 487769547 Problem Hypoxia R09.02 Active 621669732 Problem Onychia of toe, unspecified laterality L03.039 Active 771944129 Problem Chronic obstructive pulmonary disease, unspecified COPD type J44.9 Active 56189249 Problem Essential hypertension I10 Active 46026910 ALLERGIES Unknown Allergies SOCIAL HISTORY No smoking Hx information available PLAN OF CARE VITAL SIGNS MEDICATIONS Medication Instructions Dosage Frequency Start Date End Date Duration Status GlipiZIDE 5 mg Orally Once a day 1 tablet 24h 30 days Active RESULTS No Results PROCEDURES No Known procedures IMMUNIZATIONS No Known Immunizations
--- OUTSIDE RECORDS SUMMARY | 2016-12-05 21:22 | XMS REPORT ---
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 Active 057991356 Problem Actinic keratosis L57.0 Active 058364032 Problem Chronic pain syndrome G89.4 Active 635031311 Problem Unspecified symptoms and signs involving cognitive functions and awareness R41.9 Active 957245761 Problem Hiatal hernia K44.9 Active 64071486 Problem Chronic GERD K21.9 Active 497457002 Problem Allergic rhinitis, unspecified allergic rhinitis trigger, unspecified rhinitis seasonality J30.9 Active 56570684 Problem Type 2 diabetes mellitus with diabetic neuropathy, without long-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 Active 96712381 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 Active 9518688 Problem Onychia of toe, unspecified laterality L03.039 Active 469609937 Problem Hypoxia R09.02 Active 639961443 Problem Arthritis of both knees M19.90 Active 384437977 Problem Eye drainage H57.8 Active 71705138 Problem Essential hypertension I10 Active 57907372 Problem Chronic obstructive pulmonary disease, unspecified COPD type J44.9 Active 22971233 Problem Anxiety F41.9 Active 87849521 ALLERGIES Unknown Allergies SOCIAL HISTORY No smoking Hx information available PLAN OF CARE VITAL SIGNS Height 72 in 2016-03-27 Oximetry ambulation with oxygen:94 % 2016-03-27 MEDICATIONS Medication Instructions Dosage Frequency Start Date End Date Duration Status Oxygen 2 L/NC by inhalation route as directed as directed Feb, 12 months Active RESULTS No Results PROCEDURES Procedure Date Ordered Related Diagnosis Body Site MEASURE BLOOD OXYGEN LEVEL Mar 27, 2016 IMMUNIZATIONS No Known Immunizations
--- OUTSIDE RECORDS SUMMARY | 2016-12-05 21:27 | XMS REPORT ---
Author Author ARAM JEWELL [facility] Address [address] [place] [address] Care Team Providers Care Epoxy Coatings Installer Name Role Phone JEWELL ARAM Unavailable PROBLEMS Type Condition ICD9-CM Code EMB10-AM Code Onset Dates Condition Status SNOMED Code Problem Type 2 diabetes mellitus with diabetic neuropathy, without long-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 Active 54285540 Problem Osteoarthritis of both knees, unspecified osteoarthritis type M17.0 Active 518045673 Problem Unspecified asthma with (acute) exacerbation J45.901 Active 571462327 Problem COPD exacerbation J44.1 Active 641006154 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 Active 8803292 Problem Actinic keratosis L57.0 Active 036348044 Problem Chronic pain syndrome G89.4 Active 362967487 Problem Unspecified symptoms and signs involving cognitive functions and awareness R41.9 Active 031224598 Problem Hiatal hernia K44.9 Active 27082484 Problem Chronic GERD K21.9 Active 170221737 Problem Mixed hyperlipidemia E78.2 Active 691106138 Problem Anxiety F41.9 Active 41272732 Problem 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 Active 927068787 Problem Allergic rhinitis, unspecified allergic rhinitis trigger, unspecified rhinitis seasonality J30.9 Active 52499275 Problem Eye drainage H57.8 Active 09274201 Problem Arthritis of both knees M19.90 Active 812103246 Problem Hypoxia R09.02 Active 474108229 Problem Onychia of toe, unspecified laterality L03.039 Active 350420690 Problem Chronic obstructive pulmonary disease, unspecified COPD type J44.9 Active 99225719 Problem Essential hypertension I10 Active 68158880 ALLERGIES Unknown Allergies SOCIAL HISTORY No smoking Hx information available PLAN OF CARE Activity Details Follow Up prn Reason: VITAL SIGNS Height 72 in 2016-03-14 Blood pressure systolic 136 mmHg 2016-03-14 Blood pressure diastolic 64 mmHg 2016-03-14 MEDICATIONS Unknown Medications RESULTS No Results PROCEDURES Procedure Date Ordered Related Diagnosis Body Site DRAIN/INJECT, JOINT/BURSA Mar 14, 2016 [facility] VISIT ESTABLISHED PATIENT Mar 14, 2016 DEPO MEDROL 80 MG/ML Mar 14, 2016 Office Visit, Est Pt., Level 3 Mar 14, 2016 IMMUNIZATIONS No Known Immunizations
--- OUTSIDE RECORDS SUMMARY | 2016-12-05 21:27 | XMS REPORT ---
Author Author ASIM LINARES [facility] Address [address] [place] [address] Care Team Providers Care Manager Economic Name Role Phone ASIM LINARES Unavailable PROBLEMS Type Condition ICD9-CM Code [id number] Code Onset Dates Condition Status SNOMED Code Problem Type 2 diabetes mellitus with diabetic neuropathy, without long-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 Active 02203284 Problem Osteoarthritis of both knees, unspecified osteoarthritis type M17.0 Active 462310137 Problem Unspecified asthma with (acute) exacerbation J45.901 Active 960246159 Problem COPD exacerbation J44.1 Active 880876920 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 Active 5969439 Problem Actinic keratosis L57.0 Active 445545357 Problem Chronic pain syndrome G89.4 Active 712152000 Problem Unspecified symptoms and signs involving cognitive functions and awareness R41.9 Active 740431012 Problem Hiatal hernia K44.9 Active 86313031 Problem Chronic GERD K21.9 Active 198319970 Problem Mixed hyperlipidemia E78.2 Active 848453534 Problem Anxiety F41.9 Active 87041809 Problem 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 Active 465626910 Problem Allergic rhinitis, unspecified allergic rhinitis trigger, unspecified rhinitis seasonality J30.9 Active 01589499 Problem Eye drainage H57.8 Active 25366521 Problem Arthritis of both knees M19.90 Active 907784901 Problem Hypoxia R09.02 Active 019006516 Problem Onychia of toe, unspecified laterality L03.039 Active 339563856 Problem Chronic obstructive pulmonary disease, unspecified COPD type J44.9 Active 02811927 Problem Essential hypertension I10 Active 74526585 ALLERGIES Unknown Allergies SOCIAL HISTORY No smoking Hx information available PLAN OF CARE VITAL SIGNS MEDICATIONS Medication Instructions Dosage Frequency Start Date End Date Duration Status Tramadol HCl 50 mg Orally every 12 hrs mujst last 28 days 1 tablet as needed Active RESULTS No Results PROCEDURES No Known procedures IMMUNIZATIONS No Known Immunizations
--- OUTSIDE RECORDS SUMMARY | 2016-12-05 21:28 | XMS REPORT ---
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 Active 739425338 Problem Actinic keratosis L57.0 Active 669583698 Problem Chronic pain syndrome G89.4 Active 647115538 Problem Unspecified symptoms and signs involving cognitive functions and awareness R41.9 Active 687219489 Problem Hiatal hernia K44.9 Active 35128202 Problem Chronic GERD K21.9 Active 515798468 Problem Allergic rhinitis, unspecified allergic rhinitis trigger, unspecified rhinitis seasonality J30.9 Active 12261343 Problem Type 2 diabetes mellitus with diabetic neuropathy, without long-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 Active 18467379 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 Active 5775421 Problem Onychia of toe, unspecified laterality L03.039 Active 571280618 Problem Hypoxia R09.02 Active 692919876 Problem Arthritis of both knees M19.90 Active 284059911 Problem Eye drainage H57.8 Active 23270296 Problem Essential hypertension I10 Active 91028726 Problem Chronic obstructive pulmonary disease, unspecified COPD type J44.9 Active 16427922 Problem Anxiety F41.9 Active 52704926 ALLERGIES Unknown Allergies SOCIAL HISTORY No smoking Hx information available PLAN OF CARE VITAL SIGNS MEDICATIONS Medication Instructions Dosage Frequency Start Date End Date Duration Status Pantoprazole Sodium 40 mg Orally Once a day 1 tablet 24h Mar, 30 day(s) Active RESULTS No Results PROCEDURES No Known procedures IMMUNIZATIONS No Known Immunizations
--- OUTSIDE RECORDS SUMMARY | 2016-12-05 21:28 | XMS REPORT ---
Author Author ASIM LINARES [facility] Address [address] [place] [address] Care Team Providers Care Clinical Statistics Manager Name Role Phone ASIM LINARES Unavailable PROBLEMS Type Condition ICD9-CM Code [id number] Code Onset Dates Condition Status SNOMED Code Problem Type 2 diabetes mellitus with diabetic neuropathy, without long-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 Active 62180145 Problem Osteoarthritis of both knees, unspecified osteoarthritis type M17.0 Active 481487847 Problem Unspecified asthma with (acute) exacerbation J45.901 Active 168169758 Problem COPD exacerbation J44.1 Active 886966081 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 Active 9802507 Problem Actinic keratosis L57.0 Active 131680039 Problem Chronic pain syndrome G89.4 Active 934628851 Problem Unspecified symptoms and signs involving cognitive functions and awareness R41.9 Active 982651750 Problem Hiatal hernia K44.9 Active 71563329 Problem Chronic GERD K21.9 Active 763534269 Problem Mixed hyperlipidemia E78.2 Active 193811013 Problem Anxiety F41.9 Active 65796680 Problem 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 Active 724749023 Problem Allergic rhinitis, unspecified allergic rhinitis trigger, unspecified rhinitis seasonality J30.9 Active 17722663 Problem Eye drainage H57.8 Active 33126531 Problem Arthritis of both knees M19.90 Active 885616077 Problem Hypoxia R09.02 Active 189193072 Problem Onychia of toe, unspecified laterality L03.039 Active 897065384 Problem Chronic obstructive pulmonary disease, unspecified COPD type J44.9 Active 42038405 Problem Essential hypertension I10 Active 71020767 ALLERGIES Unknown Allergies SOCIAL HISTORY No smoking Hx information available PLAN OF CARE VITAL SIGNS MEDICATIONS Medication Instructions Dosage Frequency Start Date End Date Duration Status Tramadol HCl 50 mg Orally every 12 hrs must last 28 days 1 tablet as needed Active RESULTS No Results PROCEDURES No Known procedures IMMUNIZATIONS No Known Immunizations
--- OUTSIDE RECORDS SUMMARY | 2016-12-05 21:29 | XMS REPORT ---
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 Active 490202484 Problem Actinic keratosis L57.0 Active 984266149 Problem Chronic pain syndrome G89.4 Active 265453278 Problem Unspecified symptoms and signs involving cognitive functions and awareness R41.9 Active 221289514 Problem Hiatal hernia K44.9 Active 10745667 Problem Chronic GERD K21.9 Active 838521365 Problem Allergic rhinitis, unspecified allergic rhinitis trigger, unspecified rhinitis seasonality J30.9 Active 29637960 Problem Type 2 diabetes mellitus with diabetic neuropathy, without long-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 Active 37087650 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 Active 2047254 Problem Onychia of toe, unspecified laterality L03.039 Active 517817662 Problem Hypoxia R09.02 Active 637960697 Problem Arthritis of both knees M19.90 Active 660155207 Problem Eye drainage H57.8 Active 27527776 Problem Essential hypertension I10 Active 14686066 Problem Chronic obstructive pulmonary disease, unspecified COPD type J44.9 Active 84566465 Problem Anxiety F41.9 Active 36189032 ALLERGIES Substance Reaction Event Type Date Status Hydrocodone-Acetaminophen Unknown Drug Allergy Mar, Active Codeine Sulfate Unknown Drug Allergy Mar, Active Aspirin Unknown Drug Allergy Mar, Active SOCIAL HISTORY No smoking Hx information available PLAN OF CARE Activity Details Follow Up 2 - 3 Days Reason: VITAL SIGNS Height 72 in 2016-04-02 Weight 234.5 lbs 2016-04-02 Temperature 97.8 degrees Fahrenheit 2016-04-02 Heart Rate 90 bpm 2016-04-02 Respiratory Rate 18 2016-04-02 BMI 31.80 kg/m2 2016-04-02 Blood pressure systolic 122 mmHg 2016-04-02 Blood pressure diastolic 68 mmHg 2016-04-02 MEDICATIONS Medication Instructions Dosage Frequency Start Date End Date Duration Status Lyrica 100 MG Orally Twice a day 1 capsule 12h 28 days Active Metformin HCl 500 MG Orally Twice a day 1/2 tablet 12h Active Viibryd 10 MG Orally Once a day 1 tablet with food 24h Active Sucralfate 1 GM Orally 4x a day 1 tablet on an empty stomach Active Clotrimazole 1 % Externally Twice a day 1 application to affected area 12h Jan, 5 Mar, 2016 28 day(s) Active Tramadol HCl 50 mg Orally every 12 hrs must last 28 days 1 tablet as needed Active Atorvastatin Calcium 40 MG Orally Once a day 1 tablet 24h Active Triamcinolone Acetonide 0.1 % Externally Twice a day to as needed 1 application to affected area 17 Jan, 2016 Active Pantoprazole Sodium 40 MG Orally Once a day 1 tablet 24h Active Sennosides 15 MG Orally Once a day 1 tablet at bedtime as needed 24h Active Coricidin HBP Day/Night Cold 10-20 &15-200-2 MG Active Exelon 4.6 MG/24HR Transdermal Once a day 1 patch to skin 24h Active Fish Oil 1000 MG Orally Twice a day 1 capsule 12h Active Montelukast Sodium 10 MG Orally Once a day 1 tablet in the evening 24h Active Oxygen 2 L/NC by inhalation route as directed as directed Feb, 12 months Active Albuterol Sulfate (2.5 MG/3ML) 0.083% Inhalation every 4 hours as needed 3 ml Active Amlodipine Besylate 10 MG Orally Once a day 1 tablet 24h Active Clonazepam 1 MG Orally 3x a day prn must last 28 days 1 tablet Active Levocetirizine Dihydrochloride 5 MG Orally Once a day 1 tablet in the evening 24h Active Benazepril HCl 20 mg Orally Once a day 1 tablet 24h Active GlipiZIDE 5 mg Orally Once a day 1 tablet 24h 30 days Active Doxazosin Mesylate 4 MG Orally Once a day 1 tablet 24h Active Oxybutynin Chloride ER 15 MG Orally Once a day 1 tablet 24h Active RESULTS Name Result Date Reference Range Xray : Spine, Cervical (IN HOUSE) 2016-04-02 PROCEDURES Procedure Date Ordered Related Diagnosis Body Site EAR LAVAGE 2016-04-02 N/A X-RAY EXAM OF NECK SPINE Apr 02, 2016 [facility] VISIT ESTABLISHED PATIENT Apr 02, 2016 EAR IRRIGATION Apr 02, 2016 Office Visit, Est Pt., Level 3 Apr 02, 2016 IMMUNIZATIONS No Known Immunizations
--- OUTSIDE RECORDS SUMMARY | 2016-12-05 21:29 | XMS REPORT ---
Author Author ASIM LINARES [facility] Address [address] [place] [address] Care Team Providers Care Fur Grader Name Role Phone ASIM LINARES Unavailable PROBLEMS Type Condition ICD9-CM Code [id number] Code Onset Dates Condition Status SNOMED Code Problem Type 2 diabetes mellitus with diabetic neuropathy, without long-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 Active 70818895 Problem Osteoarthritis of both knees, unspecified osteoarthritis type M17.0 Active 049941396 Problem Unspecified asthma with (acute) exacerbation J45.901 Active 454212853 Problem COPD exacerbation J44.1 Active 252100197 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 Active 6515863 Problem Actinic keratosis L57.0 Active 976017641 Problem Chronic pain syndrome G89.4 Active 885216491 Problem Unspecified symptoms and signs involving cognitive functions and awareness R41.9 Active 863530437 Problem Hiatal hernia K44.9 Active 45237702 Problem Chronic GERD K21.9 Active 052227465 Problem Mixed hyperlipidemia E78.2 Active 589468470 Problem Anxiety F41.9 Active 24776629 Problem 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 Active 112630302 Problem Allergic rhinitis, unspecified allergic rhinitis trigger, unspecified rhinitis seasonality J30.9 Active 81251877 Problem Eye drainage H57.8 Active 77415692 Problem Arthritis of both knees M19.90 Active 948726004 Problem Hypoxia R09.02 Active 092811156 Problem Onychia of toe, unspecified laterality L03.039 Active 064808338 Problem Chronic obstructive pulmonary disease, unspecified COPD type J44.9 Active 43137140 Problem Essential hypertension I10 Active 67614633 ALLERGIES Unknown Allergies SOCIAL HISTORY No smoking Hx information available PLAN OF CARE VITAL SIGNS MEDICATIONS Medication Instructions Dosage Frequency Start Date End Date Duration Status Lyrica 100 MG Orally Twice a day 1 capsule 12h 28 days Active RESULTS No Results PROCEDURES No Known procedures IMMUNIZATIONS No Known Immunizations
--- OUTSIDE RECORDS SUMMARY | 2016-12-05 21:29 | XMS REPORT ---
Author Author ASIM LINARES [facility] Address [address] [place] [address] Care Team Providers Care Healthcare Sales Representative Name Role Phone ASIM LINARES Unavailable PROBLEMS Type Condition ICD9-CM Code BBQ86-TV Code Onset Dates Condition Status SNOMED Code Problem Type 2 diabetes mellitus with diabetic neuropathy, without long-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 Active 98840423 Problem Osteoarthritis of both knees, unspecified osteoarthritis type M17.0 Active 718036411 Problem Unspecified asthma with (acute) exacerbation J45.901 Active 171954491 Problem COPD exacerbation J44.1 Active 898649782 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 Active 3602180 Problem Actinic keratosis L57.0 Active 660322985 Problem Chronic pain syndrome G89.4 Active 026289995 Problem Unspecified symptoms and signs involving cognitive functions and awareness R41.9 Active 389777853 Problem Hiatal hernia K44.9 Active 79497515 Problem Chronic GERD K21.9 Active 446072096 Problem Mixed hyperlipidemia E78.2 Active 967810043 Problem Anxiety F41.9 Active 72250064 Problem 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 Active 845036615 Problem Allergic rhinitis, unspecified allergic rhinitis trigger, unspecified rhinitis seasonality J30.9 Active 71923817 Problem Eye drainage H57.8 Active 96346637 Problem Arthritis of both knees M19.90 Active 854382547 Problem Hypoxia R09.02 Active 914852059 Problem Onychia of toe, unspecified laterality L03.039 Active 824145249 Problem Chronic obstructive pulmonary disease, unspecified COPD type J44.9 Active 21156796 Problem Essential hypertension I10 Active 45470949 ALLERGIES Unknown Allergies SOCIAL HISTORY No smoking Hx information available PLAN OF CARE VITAL SIGNS MEDICATIONS Unknown Medications RESULTS No Results PROCEDURES No Known procedures IMMUNIZATIONS No Known Immunizations
--- OUTSIDE RECORDS SUMMARY | 2016-12-05 21:30 | XMS REPORT ---
Author Author ASIM LINARES [facility] Address [address] [place] [address] Care Team Providers Care Manager Oncology Name Role Phone ASIM LINARES Unavailable PROBLEMS Type Condition ICD9-CM Code DDO16-II Code Onset Dates Condition Status SNOMED Code Problem Type 2 diabetes mellitus with diabetic neuropathy, without long-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 Active 35183642 Problem Osteoarthritis of both knees, unspecified osteoarthritis type M17.0 Active 572713396 Problem Unspecified asthma with (acute) exacerbation J45.901 Active 756766966 Problem COPD exacerbation J44.1 Active 982004318 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 Active 6577381 Problem Actinic keratosis L57.0 Active 478799893 Problem Chronic pain syndrome G89.4 Active 808036730 Problem Unspecified symptoms and signs involving cognitive functions and awareness R41.9 Active 475627641 Problem Hiatal hernia K44.9 Active 22596689 Problem Chronic GERD K21.9 Active 793093266 Problem Mixed hyperlipidemia E78.2 Active 434291393 Problem Anxiety F41.9 Active 31381177 Problem 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 Active 287942977 Problem Allergic rhinitis, unspecified allergic rhinitis trigger, unspecified rhinitis seasonality J30.9 Active 86035698 Problem Eye drainage H57.8 Active 73669673 Problem Arthritis of both knees M19.90 Active 137701687 Problem Hypoxia R09.02 Active 923811569 Problem Onychia of toe, unspecified laterality L03.039 Active 123823665 Problem Chronic obstructive pulmonary disease, unspecified COPD type J44.9 Active 68536820 Problem Essential hypertension I10 Active 25568959 ALLERGIES Unknown Allergies SOCIAL HISTORY No smoking Hx information available PLAN OF CARE VITAL SIGNS MEDICATIONS Unknown Medications RESULTS No Results PROCEDURES No Known procedures IMMUNIZATIONS No Known Immunizations
[2016-12-05 23:26] LABS: BASOPHILS % (AUTO) 0 % (0-10); EOSINOPHILS # (AUTO) 0.1 10^3/uL (0.0-0.3); EOSINOPHILS % (AUTO) 2 % (0-10); LYMPHOCYTES # (AUTO) 1.5 X 10^3 (1.0-4.0); LYMPHOCYTES % (AUTO) 20 % (12-44); MEAN CORPUSCULAR HEMOGLOBIN 29 PG (25-34); MEAN CORPUSCULAR HGB CONC 33 G/DL (32-36); MEAN CORPUSCULAR VOLUME 89 FL (80-99); MEAN PLATELET VOLUME 9.6 FL (7.4-10.4); MONOCYTES # (AUTO) 1.1 X 10^3 (0.0-1.0); MONOCYTES % (AUTO) 15 % (0-12); NEUTROPHILS # (AUTO) 4.8 X 10^3 (1.8-7.8); NEUTROPHILS % (AUTO) 64 % (42-75); PLATELET COUNT 222 10^3/uL (130-400); RED BLOOD COUNT 4.44 10^6/uL (4.35-5.85); RED CELL DISTRIBUTION WIDTH 12.5 % (10.0-14.5); WHITE BLOOD COUNT 7.6 10^3/uL (4.3-11.0)
[2016-12-05 23:45] LABS: ALANINE AMINOTRANSFERASE 26 U/L (0-55); ALBUMIN 4.4 GM/DL (3.2-4.5); ANION GAP 10 MMOL/L (5-14); ASPARTATE AMINO TRANSFERASE 27 U/L (5-34); BILIRUBIN,TOTAL 0.4 MG/DL (0.1-1.0); BLOOD UREA NITROGEN 11 MG/DL (7-18); BUN/CREATININE RATIO 12; CALCIUM 9.7 MG/DL (8.5-10.1); CARBON DIOXIDE 24 MMOL/L (21-32); CHLORIDE 104 MMOL/L (98-107); CREATININE SERUM 0.94 MG/DL (0.60-1.30); GFR ESTIMATED > 60; GLUCOSE 145 MG/DL (70-105); POTASSIUM 4.4 MMOL/L (3.6-5.0); SODIUM 138 MMOL/L (135-145)
[2016-12-06] MEDS ORDERED: cefTRIAXone INJECTION 1,000 MG in NS (IVPB) 50 ML IV ONE (01:00)
[2016-12-06] MEDS ORDERED: predniSONE 20 MG TAB PO ONE (01:15)
--- NOTE | 2016-12-06 01:38 | ED Cough/URI ---
General Chief Complaint: Respiratory Problems Stated Complaint: ALLERGIES Nursing Triage Note: PT HERE WITH C/O SOB, COUGH, REQUIRING MORE O2 THAN NORMAL FOR 3 DAYS. REPORTS COUGHING UP "MACKAY STUFF. Source: patient Exam Limitations: no limitations History of Present Illness Time seen by provider: 00:45 Initial Comments Here with report of shortness of breath and cough and requiring more O2 than typical. Reports coughing up mucus. Denies nausea or vomiting. Does report intermittent fever subjectively. Has history of occasional for yearly pneumonia. States this feels similar. Timing/Duration: yesterday, getting worse Severity/Quality: moderate, productive cough Prior Episodes/Possible Cause: occasional episodes Modifying Factors: Improves With Oxygen, Improves With Rest Associated Symptoms: cough, fever/chills, nasal congestion, nasal drainage, shortness of breath, sore throat, wheezing Allergies and Home Medications Allergies Coded Allergies: aspirin (Unverified Allergy, Unknown, 05/20/14) codeine (Verified Allergy, Unknown, 04/07/06) hydrocodone (Unverified Allergy, Unknown, 10/16/15) Uncoded Allergies: SSRI (Allergy, Unknown, 05/20/14) TCA (Allergy, Unknown, 05/20/14) Home Medications Acetaminophen/Diphenhydramine 1 Each Tablet, Unknown Dose PO, (Reported) Albuterol Sulfate 2.5 Mg/3 Ml Vial.neb, 2.5 MG IH Q4H PRN for SHORTNESS OF BREATH, (Reported) Amlodipine Besylate 10 Mg Tablet, 10 MG PO DAILY, (Reported) Atorvastatin Calcium 40 Mg Tablet, 40 MG PO HS, (Reported) Azithromycin 250 Mg Tablet, 250 MG PO UD, #6 TAKE 2 TABLETS ON DAY ONE THEN TAKE 1 TABLET DAILY FOR FOUR MORE DAYS. Prescribed by: BOZENA WERNER on 06/21/16 1851 Benazepril HCl 20 Mg Tablet, 20 MG PO DAILY, (Reported) Benzonatate 100 Mg Capsule, 100 MG PO twice a day, #20 Prescribed by: TOMMY BONILLA on 05/12/16 1353 Chlorphen/Dm/Acetaminophen/GG 1 Each Tb.cp.seq, 1-2 TAB PO Q6H PRN for DRAINAGE, (Reported) Clonazepam 1 Mg Tablet, 1 MG PO Q8H PRN for ANXIETY, (Reported) Cyanocobalamin 50 Mcg Lozenge, 500 MCG PO DAILY, (Reported) Doxazosin Mesylate 4 Mg Tablet, 4 MG PO HS, (Reported) Fish Oil/Dha/Epa 1 Each Capsule, 1 EACH PO DAILY, (Reported) Fluticasone Propionate 9.9 Ml [place].susp, 9.9 ML NS DAILY for 30 Days, #1 Ref 0 Prescribed by: ALBA BURRELL on 09/06/16 1213 Glipizide 5 Mg Tablet, 5 MG PO DAILY, (Reported) Levocetirizine Dihydrochloride 5 Mg Tablet, 5 MG PO HS, (Reported) Metformin HCl 500 Mg Tablet, 250 MG PO BID WITH MEALS, (Reported) TAKES 1/2 (500MG) TABLET Montelukast Sodium 10 Mg Tablet, 10 MG PO HS, (Reported) Montelukast Sodium 10 Mg Tablet, 10 MG PO HS, (Reported) Oxybutynin Chloride 10 Mg Tab.er.24, 10 MG PO DAILY, (Reported) Pantoprazole Sodium 40 Mg Tablet.dr, 40 MG PO HS, (Reported) Prednisone 20 Mg Tab, 40 MG PO DAILY, #8 Prescribed by: BOZENA WERNER on 10/24/16 1620 Pregabalin 100 Mg Capsule, 100 MG PO BID, (Reported) Ranitidine HCl 150 Mg Tablet, 150 MG PO BID, (Reported) Rivastigmine 4.6 Mg Patch, 4.6 MG TD DAILY, (Reported) Sucralfate 1 Gm Tablet, 1 GM PO QID, (Reported) Tiotropium [place] 1 Inh Aerp, 1 CAP INH HS, (Reported) Tramadol HCl 50 Mg Tablet, 50 MG PO BID PRN for PAIN, (Reported) Triamcinolone Acetonide 15 Gm Cream..g., TOP BID, (Reported) 0.1% APPLY TO FEET Vilazodone Hydrochloride 10 Mg Tablet, 10 MG PO HS, (Reported) Constitutional: see HPI, No chills, fever EENTM: see HPI Respiratory: see HPI, cough, short of breath Cardiovascular: no symptoms reported Gastrointestinal: no symptoms reported, No nausea, No vomiting Genitourinary: no symptoms reported Musculoskeletal: no symptoms reported Skin: no symptoms reported All Other Systems Reviewed Negative Unless Noted: Yes Past Cpbujtb-Xjmbcc-Rrzgon Hx Patient Social History Alcohol Use: Denies Use Recreational Drug Use: No Type Used: Cigarettes Former Smoker, Quit: Dec 26, 1965 2nd Hand Smoke Exposure: No Recent Foreign Travel: No Contact w/Someone Who Travel: No Recent Infectious Disease Expo: No Recent Hopitalizations: No Immunizations Up To Date Tetanus Booster (TDap): Unknown Date of Pneumonia Vaccine: Feb 20, 2016 Date of Influenza Vaccine: Dec 20, 2015 Seasonal Allergies Seasonal Allergies: No Surgeries History of Surgeries: Yes (PROSTATE SURGERY, 5 HIATAL HERNA REPOAR AND 1 EYE SURGERY) Surgeries: Abdominal, Adenoidectomy, Eye Surgery, Prostatectomy, Tonsillectomy Respiratory History of Respiratory Disorde: Yes Respiratory Disorders: Asthma, Pneumonia, Chronic Bronchitis, COPD Currently Using CPAP: No Currently Using BIPAP: No Cardiovascular History of Cardiac Disorders: Yes Cardiac Disorders: Chronic Edema/Swelling, High Cholesterol, Hypertension Neurological History of Neurological Disord: Yes Neurological Disorders: Dementia Reproductive System Hx Reproductive Disorders: No Sexually Transmitted Disease: No Genitourinary Genitourinary Disorders: Prostate Problems Gastrointestinal History of Gastrointestinal Di: Yes Gastrointestinal Disorders: Abdominal Hernia, Gastroesophageal Reflux, Polyps, Hiatal Hernia Musculoskeletal History of Musculoskeletal Dis: Yes ("Lyrica for arthritis"; GENERALIZED WEAKNESS) Musculoskeletal Disorders: Arthritis Endocrine History of Endocrine Disorders: Yes Endocrine Disorders: Diabetes, Non-Insulin dep Cancer History of Cancer: Yes (PROSTATE CANCER-S/P SURGERY ONLY;BASAL CELL CA R EYELID ) Cancer: Prostate, Skin Psychosocial History of Psychiatric Problem: Yes Behavioral Health Disorders: Anxiety, Depression Integumentary History of Skin or Integumenta: Yes (SKIN CANCER) Blood Transfusions History of Blood Disorders: No Adverse Reaction to a Blood Tr: No Reviewed Nursing Assessment Reviewed/Agree w Nursing PMH: Yes Family Medical History Significant Family History: No Pertinent Family Hx Family Medial History: FH: breast cancer G8 SISTER Physical Exam Vital Signs Vital Sign - Last 12Hours 12/05/16 22:52 Temp 97.2 Pulse 90 Resp 20 B/P (MAP) 138/75 Pulse Ox 93 O2 Delivery Room Air Capillary Refill : Less Than 3 Seconds General Appearance: WD/WN, no apparent distress HEENT: pharynx normal, other (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.) Neck: full range of motion, supple Respiratory: no respiratory distress, no accessory muscle use, crackles (right basilar) Cardiovascular: regular rate, rhythm, no murmur Gastrointestinal: non tender, soft Extremities: non-tender, normal inspection Neurologic/Psychiatric: alert, oriented x 3 Skin: normal color, warm/dry Focused Exam Evaluation Lactate Level Laboratory Tests 12/05/16 23:17: Lactic Acid Level 2.17*H 12/06/16 01:08: Lactic Acid Level 2.32*H Lactic Acid Level Laboratory Tests Test 12/05/16 23:17 12/06/16 01:08 Lactic Acid Level 2.17 MMOL/L (0.50-2.00) *H 2.32 MMOL/L (0.50-2.00) *H Progress/Results/Core Measures Results/Orders Lab Results Laboratory Tests Test 12/05/16 23:17 12/06/16 01:08 Range/Units White Blood Count 7.6 4.3-11.0 10^3/uL Red Blood Count 4.44 4.35-5.85 10^6/uL Hemoglobin 13.0 L 13.3-17.7 G/DL Hematocrit 40 40-54 % Mean Corpuscular Volume 89 80-99 FL Mean Corpuscular Hemoglobin 29 25-34 PG Mean Corpuscular Hemoglobin Concent 33 32-36 G/DL Red Cell Distribution Width 12.5 10.0-14.5 % Platelet Count 222 130-400 10^3/uL Mean Platelet Volume 9.6 7.4-10.4 FL Neutrophils (%) (Auto) 64 42-75 % Lymphocytes (%) (Auto) 20 12-44 % Monocytes (%) (Auto) 15 H 0-12 % Eosinophils (%) (Auto) 2 0-10 % Basophils (%) (Auto) 0 0-10 % Neutrophils # (Auto) 4.8 1.8-7.8 X 10^3 Lymphocytes # (Auto) 1.5 1.0-4.0 X 10^3 Monocytes # (Auto) 1.1 H 0.0-1.0 X 10^3 Eosinophils # (Auto) 0.1 0.0-0.3 10^3/uL Basophils # (Auto) 0.0 0.0-0.1 10^3/uL Sodium Level 138 135-145 MMOL/L Potassium Level 4.4 3.6-5.0 MMOL/L Chloride Level 104 98-107 MMOL/L Carbon Dioxide Level 24 21-32 MMOL/L Anion Gap 10 5-14 MMOL/L Blood Urea Nitrogen 11 7-18 MG/DL Creatinine 0.94 0.60-1.30 MG/DL Estimat Glomerular Filtration Rate > 60 BUN/Creatinine Ratio 12 Glucose Level 145 H 70-105 MG/DL Lactic Acid Level 2.17 *H 2.32 *H 0.50-2.00 MMOL/L Calcium Level 9.7 8.5-10.1 MG/DL Total Bilirubin 0.4 0.1-1.0 MG/DL Aspartate Amino Transf (AST/SGOT) 27 5-34 U/L Alanine Aminotransferase (ALT/SGPT) 26 0-55 U/L Alkaline Phosphatase 93 40-136 U/L Total Protein 7.0 6.4-8.2 GM/DL Albumin 4.4 3.2-4.5 GM/DL My Orders Orders - ENLY MCCABE MD Chest 1 View, Ap/Pa Only (12/05/16 23:07) Cbc With Automated Diff (12/05/16 23:07) Comprehensive Metabolic Panel (12/05/16 23:07) Lactic Acid Analyzer (12/05/16 23:07) Blood Culture (12/05/16 23:43) Blood Culture (12/06/16 00:41) Ceftriaxone Injection (Rocephin Injectio (12/06/16 01:00) Prednisone Tablet (Deltasone Tablet) (12/06/16 01:15) Ns Iv 1000 Ml (Sodium Chloride 0.9%) (12/06/16 01:39) Vital Signs/I&O Vital Sign - Last 12Hours 12/05/16 22:52 Temp 97.2 Pulse 90 Resp 20 B/P (MAP) 138/75 Pulse Ox 93 O2 Delivery Room Air Blood Pressure Mean: 96 Progress Note : Progress Note Seen and evaluated. IV, labs, chest x-ray, lactic acid and blood cultures ordered. Left against elevated. X-ray indicates right basilar pneumonia. I did discuss the case with Dr. Hartley at 0056. Patient's blood counts are normal but lactic acid elevated. Due to age and lactic acid elevation as well as recent history of increased oxygen requirement, patient will be admitted observation for pneumonia and initiated on community-acquired pneumonia treatment. Rocephin 1 g IV ordered. Prednisone 40 mg by mouth ordered due to patient's concern related to additional phlegm and states that this usually helps. Patient does have underlying chronic lung disease and this will likely improve those symptoms. Admit, observation status. Patient and family agree with plan. 0130: Repeat lactic acid slightly elevated. Normal saline 1 L bolus ordered. Diagnostic Imaging Diagonstic Imaging: Xray Plain Films/CT/US/NM/MRI: chest Comments Right basilar pneumonia Reviewed: Reviewed by Me Departure Communication (Admissions) Time/Spoke to Admitting Phy: 00:56 Impression Impression: Primary Impression: Right lower lobe pneumonia Qualified Codes: J18.1 - Lobar pneumonia, unspecified organism Disposition: ADMITTED INPATIENT Condition: Stable Admissions Decision to Admit Reason: Admit from ER (General) Decision to Admit/Date: Dec 06, 2016 Time/Decision to Admit Time: 00:56 Departure-Patient Inst. Referrals: [facility] (PCP/Family) Primary Care Physician NELY MCCABE MD Dec 06, 2016 01:38
[2016-12-06] MEDS ORDERED: NS IV 1000 ML 1,000 ML IV ONE (01:39)
[2016-12-06] MEDS: NS IV 1000 ML 1,000 ML IV SCH ×4 (03:00→18:23)
[2016-12-06] MEDS ORDERED: AZITHROMYCIN INJECTION 500 MG in NS (IVPB) 250 ML IV ONE (03:04)
[2016-12-06 04:35] VITALS: BP 163/75
[2016-12-06] MEDS: inSUlin (REGULAR) HUMAN 1 UNIT/0.01 ML (CHARGE PER UNIT) SC SCH ×4 (06:04→22:47)
[2016-12-06] MEDS: predniSONE 20 MG TAB PO SCH (06:30)
--- NOTE | 2016-12-06 07:53 | Diagnostic Imaging Report ---
INDICATION: Shortness of breath. COMPARISON: 11/15/2016 FINDINGS: Upright portable view of the chest is obtained. Heart size is normal. The pulmonary vessels appear unremarkable. There is a probable hiatal hernia which is unchanged. There is no pneumothorax or pleural fluid suspected. There is some mild streaky atelectasis in the lung bases. Lungs otherwise appear clear. IMPRESSION: Mild bilateral basilar atelectasis. Probable hiatal hernia. No new or acute abnormality is seen when compared to the recent prior study. Dictated by: Dictated on workstation # [id number]
[2016-12-06 08:00] VITALS: BP 144/72
[2016-12-06 08:16] LABS: BASOPHILS % (AUTO) 0 % (0-10); EOSINOPHILS % (AUTO) 0 % (0-10); LYMPHOCYTES % (AUTO) 16 % (12-44); MEAN CORPUSCULAR HEMOGLOBIN 29 PG (25-34); MEAN CORPUSCULAR HGB CONC 33 G/DL (32-36); MEAN CORPUSCULAR VOLUME 88 FL (80-99); MEAN PLATELET VOLUME 9.8 FL (7.4-10.4); MONOCYTES # (AUTO) 0.2 X 10^3 (0.0-1.0); MONOCYTES % (AUTO) 3 % (0-12); NEUTROPHILS # (AUTO) 5.1 X 10^3 (1.8-7.8); NEUTROPHILS % (AUTO) 82 % (42-75); PLATELET COUNT 229 10^3/uL (130-400); RED BLOOD COUNT 4.76 10^6/uL (4.35-5.85); RED CELL DISTRIBUTION WIDTH 12.5 % (10.0-14.5); WHITE BLOOD COUNT 6.2 10^3/uL (4.3-11.0)
[2016-12-06 08:36] LABS: ALANINE AMINOTRANSFERASE 26 U/L (0-55); ALBUMIN 4.5 GM/DL (3.2-4.5); ANION GAP 15 MMOL/L (5-14); ASPARTATE AMINO TRANSFERASE 27 U/L (5-34); BILIRUBIN,TOTAL 0.4 MG/DL (0.1-1.0); BLOOD UREA NITROGEN 11 MG/DL (7-18); BUN/CREATININE RATIO 13; CALCIUM 9.5 MG/DL (8.5-10.1); CARBON DIOXIDE 20 MMOL/L (21-32); CHLORIDE 107 MMOL/L (98-107); CREATININE SERUM 0.86 MG/DL (0.60-1.30); GFR ESTIMATED > 60; GLUCOSE 148 MG/DL (70-105); POTASSIUM 4.4 MMOL/L (3.6-5.0); SODIUM 142 MMOL/L (135-145); TOTAL PROTEIN 7.5 GM/DL (6.4-8.2)
--- NOTE | 2016-12-06 10:26 | History & Physicial (CHS) ---
HPI History of Present Illness: Shortness of Breath Patient presented to ED last night with increased shortness of breath for the last 1-2 days. Is coughing some, but isn't really coughing anything up. He is O2 dependent at baseline - 2L - and had decreased oxygen sats. He was treated in the ED and admitted for right sided PNA. He denies any sick contacts. Reports that he gets PNA about once a year, and this feels similar. Source: patient Exam Limitations: other (alzheimer's (per patient)) Date seen by provider: Dec 06, 2016 Time Seen by Provider: 10:00 Attending Physician Yodit Hartley MD PCP [facility] Consult Date of Admission Dec 06, 2016 at 01:15 Home Medications Home Medications Reviewed patient Home Medication Reconciliation Form Allergies Coded Allergies: aspirin (Unverified Allergy, Unknown, 05/20/14) codeine (Verified Allergy, Unknown, 04/07/06) hydrocodone (Unverified Allergy, Unknown, 10/16/15) Uncoded Allergies: SSRI (Allergy, Unknown, 05/20/14) TCA (Allergy, Unknown, 05/20/14) HNZ-Eofinc-Kradok Hx Patient Social History Marrital Status: Employed/Student: retired Alcohol Use: Past History Recreational Drug Use: No Smoking Status: Former Smoker Former smoker/When Quit: May 26, 1959 Type Used: Cigarettes 2nd Hand Smoke Exposure: No Recent Foreign Travel: No Contact w/other who traveled: No Recent Hopitalizations: No Recent Infectious Disease Expo: No Physical Abuse Screen: No Sexual Abuse: No Immunizations Up To Date Tetanus Booster (TDap): Unknown Date of Pneumonia Vaccine: Mar 31, 2016 Date of Influenza Vaccine: Dec 20, 2015 Past Medical History PMHx: COPD HTN Prostate cancer DMII Osteoarthritis of multiple joints Dementia GERD Anxiety Hyperlipidemia Allergic rhinitis SurgHx: Prostatectomy Hernia repair x 2 Cataract Wrist fracture Family Medical History Significant Family History: Lung Disease Family History: FH: breast cancer G8 SISTER Review of Systems ([facility]) Constitutional: see HPI, No chills, No dizziness, No fever EENTM: nose congestion, No ear discharge, No ear pain, No epistaxis, No throat pain, No throat swelling Respiratory: cough, dyspnea on exertion, No hemoptysis, orthopnea, phlegm, short of breath, No stridor, No wheezing Cardiovascular: no symptoms reported, No chest pain, No edema, No palpitations , No syncope, No vascular heart diseas Gastrointestinal: no symptoms reported Genitourinary: no symptoms reported Musculoskeletal: no symptoms reported Skin: no symptoms reported Psychiatric/Neurological: No Symptoms Reported Reviewed Test Results Reviewed Test Results Lab Laboratory Tests 12/05/16 23:17: Lactic Acid Level 2.17*H 12/06/16 01:08: Lactic Acid Level 2.32*H 12/06/16 10:40: Laboratory Tests 12/05/16 23:17 12/06/16 07:30 Radiology Per prelim read bibasilar atelectasis; per ED physician right sided PNA; per my review possible right PNA, but appears very fluid overloaded with bilateral effusions Physical Exam-([facility]) Physical Exam Vital Signs VS - Last 72 Hours, by Label 12/05/16 12/06/16 12/06/16 12/06/16 22:52 02:25 04:33 04:35 Temp 97.2 98.3 Pulse 90 92 84 Resp 20 20 18 B/P (MAP) 138/75 163/75 Pulse Ox 93 95 97 O2 Delivery Room Air Room Air Nasal Cannula Nasal Cannula O2 Flow Rate 3.00 3.00 12/06/16 12/06/16 12/06/16 12/06/16 08:00 09:00 12:00 12:00 Temp 97.8 97.9 Pulse 94 114 Resp 20 20 B/P (MAP) 144/72 136/71 Pulse Ox 95 90 O2 Delivery Nasal Cannula Nasal Cannula Nasal Cannula Nasal Cannula O2 Flow Rate 3.00 3.00 3.00 3.00 12/06/16 15:40 Temp 98.4 Pulse 102 Resp 20 B/P (MAP) 138/72 Pulse Ox 91 O2 Delivery Room Air Capillary Refill : Less Than 3 Seconds General Appearance: no apparent distress Eyes: Right Eye Abnormal EOM, Right Eye Abnormal Pupil, Left Eye Normal Inspection HEENT: pharynx normal Neck: non-tender, full range of motion, supple Respiratory: chest non-tender, decreased breath sounds, No accessory muscle use , crackles (bilateral bases) Cardiovascular: normal peripheral pulses, regular rate, rhythm, no edema, no gallop, no JVD Peripheral Pulses: 2+ Dorsalis Pedis (R), 2+ Left Dors-Pedis (L), 2+ Radial Pulses (R), 2+ Radial Pulses (L) Gastrointestinal: normal bowel sounds, non tender, soft, no organomegaly Rectal: deferred Back: normal inspection Extremities: non-tender, no pedal edema, no calf tenderness, normal capillary refill Neurologic/Psychiatric: tube washer II-XII nml as tested, alert, normal mood/affect, oriented x 3 Skin: normal color, warm/dry Lymphatic: no adenopathy Assessment/Plan Assessment/Plan Admission Dx Dyspnea Plan Pt admitted to floor for IV abx for suspected right sided PNA. Per my review pt appears to be somewhat fluid overloaded, and noted to have rising lactate when last checked in the ED. Will recheck lactate now, also will check CRP, Procalcitonin and BNP. Suspect that patient will need diuresis. PA and Lat Chest, echo ordered. Per echo done in May 2015, no evidence of heart failure. DVT prophylaxis, will continue home meds as needed. Diagnosis/Problems: (1) Pulmonary edema Qualifiers: Qualified Codes: J81.0 - Acute pulmonary edema Assessment & Plan: per portable CXR done in ED. Will obtain PA and Lat CXR to evaluate and give Lasix if needed. (2) COPD (chronic obstructive pulmonary disease) Qualifiers: Qualified Codes: J44.0 - Chronic obstructive pulmonary disease with acute lower respiratory infection Assessment & Plan: continue O2, antibiotics for suspected PNA. Will resume home breathers. (3) Alzheimer disease Qualifiers: Qualified Codes: G30.9 - Alzheimer's disease, unspecified; F02.80 - Dementia in other diseases classified elsewhere without behavioral disturbance (4) Oxygen dependent Assessment & Plan: 2L at all times at baseline, currently on 3L and feels like he is breathing better. Will titrate O2 to maintain sats of > or = to 92% (5) Right lower lobe pneumonia Qualifiers: Qualified Codes: J18.1 - Lobar pneumonia, unspecified organism (6) Type 2 diabetes mellitus Qualifiers: Assessment & Plan: will hold home meds and place on sliding scale for the current time. once lactate is WNL and patient showing clinical improvement, will consider restarting home meds, otherwise will restart on discharge. (7) Hypertension Qualifiers: Qualified Codes: I10 - Essential (primary) hypertension Assessment & Plan: will resume hold meds except ELLEN Inhibitor and monitor blood pressure with routine vital signs (8) Lactic acidosis Assessment & Plan: Lactate elevated in ED, repeat was done last night and noted this morning to still be elevated. Will recheck now and if elevated, will hydrate. Questionable pulmonary edema on portable CXR from ED, 2 view ordered now, echo also ordered. If no signs of failure and effusions appear less significant on 2 view CXR, will aggressively hydrate. Repeat lactate after hydration. Will monitor closely for other signs of sepsis. Clinical Quality Measures DVT/VTE Risk/Contraindication: Risk Factor Score Per Nursin RFS Level Per Nursing on Admit: 2=Moderate BOBBY BROCK DO Dec 06, 2016 10:26
[2016-12-06] MEDS ORDERED: FLUT16SP22 NS (11:19)
[2016-12-06] MEDS ORDERED: MIRA25TA PO (11:19)
[2016-12-06] MEDS ORDERED: MULT-35 PO (11:19)
[2016-12-06] MEDS ORDERED: IPRA3AMP IH (11:19)
[2016-12-06] MEDS ORDERED: GUAI5SYR PO (11:26)
[2016-12-06] MEDS ORDERED: MINE3.5O OU (11:26)
[2016-12-06] MEDS ORDERED: GLYC15DR3 OU (11:26)
[2016-12-06 12:00] VITALS: BP 136/71
--- NOTE | 2016-12-06 12:14 | Diagnostic Imaging Report ---
INDICATION: Hypoxemia. PA and lateral chest. There is a hiatal hernia. Heart size and pulmonary vascularity are normal. Lungs are clear. There are no effusions or pneumothoraces. IMPRESSION: Hiatal hernia. No acute abnormalities seen in the chest. Dictated by: Dictated on workstation # [id number]
[2016-12-06 15:40] VITALS: BP 138/72
[2016-12-06] MEDS ORDERED: TRAMADOL 50 MG TAB PO PRN (17:45)
[2016-12-06] MEDS ORDERED: CARBOXYMETHYLCELLULOSE OU PRN (17:45)
[2016-12-06] MEDS ORDERED: GLYCERIN OU PRN (17:45)
[2016-12-06] MEDS ORDERED: PATIENT MAY USE OWN MEDS, ALL MC SCH (18:00)
[2016-12-06 19:30] VITALS: BP 141/73
[2016-12-06] MEDS: PREGABALIN 100 MG (LYRICA) CAPSULE PO SCH (20:43)
[2016-12-06] MEDS: clonazePAM 1 MG (KlonoPIN) TAB PO SCH (20:44)
[2016-12-06] MEDS: ATORVASTATIN 40 MG (LIPITOR) TABLET PO SCH (20:48)
[2016-12-06] MEDS: amLODIPine 10 MG (NORVASC) TAB PO SCH (20:48)
[2016-12-06] MEDS: LEVOCETIRIZINE 5 MG TAB (XYZAL) NON-FORMULARY PO SCH (20:49)
[2016-12-06] MEDS: ACETAMINOPHEN PO SCH (20:50)
[2016-12-06] MEDS: DIPHENHYDRAMINE PO SCH (20:50)
[2016-12-06] MEDS: raNItidine (ZANTAC) 150 MG TAB NON-FORMULARY PO SCH (20:50)
[2016-12-06] MEDS: SUCRALFATE 1 GM (CARAFATE) TAB PO SCH (20:51)
[2016-12-06] MEDS: MONTELUKAST 10 MG (SINGULAIR) TAB PO SCH (20:51)
[2016-12-06] MEDS: MYRBETRIQ 25 MG PO SCH (20:52)
[2016-12-06] MEDS: guaiFENesin/DM (ROBITUSSIN DM) 10 ML UDC PO SCH (20:53)
[2016-12-06] MEDS ORDERED: RT-ALBUTEROL/IPRATROPIUM 3 ML (DUONEB) VIAL IH SCH (21:00)
[2016-12-07] VITALS: BP 153/72
[2016-12-07] MEDS: cefTRIAXone INJECTION 1,000 MG in NS (IVPB) 50 ML IV SCH (00:27)
[2016-12-07 04:00] VITALS: BP 138/74
[2016-12-07 05:42] LABS: BASOPHILS % (AUTO) 0 % (0-10); EOSINOPHILS % (AUTO) 0 % (0-10); LYMPHOCYTES # (AUTO) 2.3 X 10^3 (1.0-4.0); LYMPHOCYTES % (AUTO) 28 % (12-44); MEAN CORPUSCULAR HEMOGLOBIN 29 PG (25-34); MEAN CORPUSCULAR HGB CONC 33 G/DL (32-36); MEAN CORPUSCULAR VOLUME 88 FL (80-99); MEAN PLATELET VOLUME 9.5 FL (7.4-10.4); MONOCYTES # (AUTO) 1.3 X 10^3 (0.0-1.0); MONOCYTES % (AUTO) 15 % (0-12); NEUTROPHILS # (AUTO) 4.8 X 10^3 (1.8-7.8); NEUTROPHILS % (AUTO) 57 % (42-75); PLATELET COUNT 219 10^3/uL (130-400); RED BLOOD COUNT 4.55 10^6/uL (4.35-5.85); RED CELL DISTRIBUTION WIDTH 12.4 % (10.0-14.5); WHITE BLOOD COUNT 8.4 10^3/uL (4.3-11.0)
[2016-12-07 06:00] LABS: ANION GAP 13 MMOL/L (5-14); BLOOD UREA NITROGEN 10 MG/DL (7-18); BUN/CREATININE RATIO 13; CARBON DIOXIDE 22 MMOL/L (21-32); CHLORIDE 104 MMOL/L (98-107); CREATININE SERUM 0.78 MG/DL (0.60-1.30); GFR ESTIMATED > 60; GLUCOSE 115 MG/DL (70-105); MAGNESIUM 2.1 MG/DL (1.8-2.4); POTASSIUM 3.5 MMOL/L (3.6-5.0); SODIUM 139 MMOL/L (135-145)
[2016-12-07] MEDS: NS IV 1000 ML 1,000 ML IV SCH ×2 (06:28→10:28)
[2016-12-07] MEDS: predniSONE 20 MG TAB PO SCH (06:28)
[2016-12-07] MEDS ORDERED: KCL 20 MEQ TAB (K-DUR) PO ONE (06:30)
[2016-12-07] MEDS: inSUlin (REGULAR) HUMAN 1 UNIT/0.01 ML (CHARGE PER UNIT) SC SCH ×4 (06:35→20:18)
[2016-12-07] MEDS: PREGABALIN 100 MG (LYRICA) CAPSULE PO SCH ×3 (08:20→20:35)
[2016-12-07] MEDS: [UNRECOGNIZED DRUG - OTHER] PO SCH (08:21)
[2016-12-07] MEDS: MULTIVITAMIN PO SCH (08:21)
[2016-12-07] MEDS: clonazePAM 1 MG (KlonoPIN) TAB PO SCH ×3 (08:21→20:35)
[2016-12-07] MEDS: doxAzosin 4 MG (CARDURA) TAB PO SCH (08:21)
[2016-12-07] MEDS: PANTOPRAZOLE 40 MG (PROTONIX) TAB PO SCH (08:22)
[2016-12-07] MEDS: RIVASTIGMINE 4.6 MG/24 HR PATCH TD SCH (08:23)
[2016-12-07] MEDS: FLUTICASONE NASAL SPRAY (FLONASE) 16 GM BTL NS SCH (08:23)
[2016-12-07] MEDS: guaiFENesin/DM (ROBITUSSIN DM) 10 ML UDC PO SCH ×3 (08:25→20:27)
[2016-12-07 08:30] VITALS: BP 166/82
[2016-12-07] MEDS: AZITHROMYCIN 250 MG TAB (ZITHROMAX) PO SCH (08:34)
[2016-12-07] MEDS: SUCRALFATE 1 GM (CARAFATE) TAB PO SCH ×4 (08:34→20:23)
[2016-12-07 12:00] VITALS: BP 127/67
[2016-12-07 16:50] VITALS: BP 136/76
[2016-12-07 20:00] VITALS: BP 137/76
[2016-12-07] MEDS: MONTELUKAST 10 MG (SINGULAIR) TAB PO SCH (20:23)
[2016-12-07] MEDS: ATORVASTATIN 40 MG (LIPITOR) TABLET PO SCH (20:24)
[2016-12-07] MEDS: amLODIPine 10 MG (NORVASC) TAB PO SCH (20:25)
[2016-12-07] MEDS: raNItidine (ZANTAC) 150 MG TAB NON-FORMULARY PO SCH (20:25)
[2016-12-07] MEDS: MYRBETRIQ 25 MG PO SCH (20:26)
[2016-12-07] MEDS: LEVOCETIRIZINE 5 MG TAB (XYZAL) NON-FORMULARY PO SCH (20:26)
[2016-12-07] MEDS: DIPHENHYDRAMINE PO SCH (20:27)
[2016-12-07] MEDS: ACETAMINOPHEN PO SCH (20:27)
--- NOTE | 2016-12-07 21:26 | Progress Note (SOAP) ---
Subjective Subjective/Events-last exam Afebrile, no acute events. He is maintaining adequate oxygenation on room air this morning and feels very good, would like to go home if possible. Wants to walk around the unit. Review of Systems Date Seen by Provider: Dec 07, 2016 Time Seen by Provider: 07:57 Objective Exam Last Set of Vital Signs Vital Signs Date Time Temp Pulse Resp B/P (MAP) Pulse Ox O2 Delivery O2 Flow Rate FiO2 12/07/16 16:50 98.0 91 20 136/76 94 Nasal Cannula 12/06/16 20:40 3.00 Capillary Refill : Less Than 3 Seconds I&O Intake and Output 12/08/16 00:00 Intake Total 2670 ml Output Total 2475 ml Balance 195 ml Intake Oral 1620 ml IV Total 1050 ml Output Urine Total 2475 ml General: Alert, No Acute Distress Lungs: Clear to Auscultation, Normal Air Movement Heart: Regular Rate, No Murmurs Neuro: Normal Speech Results/Procedures Lab Laboratory Tests 12/06/16 22:29: Glucometer 175H 12/07/16 05:27: White Blood Count 8.4, Red Blood Count 4.55, Hemoglobin 13.3, Hematocrit 40, Mean Corpuscular Volume 88, Mean Corpuscular Hemoglobin 29, Mean Corpuscular Hemoglobin Concent 33, Red Cell Distribution Width 12.4, Platelet Count 219, Mean Platelet Volume 9.5, Neutrophils (%) (Auto) 57, Lymphocytes (%) (Auto) 28, Monocytes (%) (Auto) 15H, Eosinophils (%) (Auto) 0, Basophils (%) (Auto) 0, Neutrophils # (Auto) 4.8, Lymphocytes # (Auto) 2.3, Monocytes # (Auto) 1.3H, Eosinophils # (Auto) 0.0, Basophils # (Auto) 0.0, Sodium Level 139, Potassium Level 3.5L, Chloride Level 104, Carbon Dioxide Level 22, Anion Gap 13, Blood Urea Nitrogen 10, Creatinine 0.78, Estimat Glomerular Filtration Rate > 60, BUN/ Creatinine Ratio 13, Glucose Level 115H, Lactic Acid Level 2.23*H, Calcium Level 9.0, Magnesium Level 2.1 12/07/16 09:33: Glucometer 185H 12/07/16 14:16: Glucometer 183H 12/07/16 14:17: Lactic Acid Level 2.67*H 12/07/16 16:17: Lactic Acid Level 2.57*H 12/07/16 20:08: Glucometer 167H Microbiology 12/06/16 Blood Culture - Preliminary, Resulted No growth Radiology CXR 12/05: IMPRESSION: Mild bilateral basilar atelectasis. Probable hiatal hernia. No new or acute abnormality is seen when compared to the recent prior study. Assessment/Plan Assessment/Plan Admission Dx Dyspnea Plan Pt admitted to floor for IV abx for suspected right sided PNA. Per my review pt appears to be somewhat fluid overloaded, and noted to have rising lactate when last checked in the ED. Will recheck lactate now, also will check CRP, Procalcitonin and BNP. Suspect that patient will need diuresis. PA and Lat Chest, echo ordered. Per echo done in May 2015, no evidence of heart failure. DVT prophylaxis, will continue home meds as needed. Diagnosis/Problems: (1) COPD (chronic obstructive pulmonary disease) Qualifiers: Qualified Codes: J44.0 - Chronic obstructive pulmonary disease with acute lower respiratory infection Assessment & Plan: continue O2, antibiotics for suspected PNA. Will resume home breathers. 12/07 Improved, not requiring supplemental oxygen this am (2) Alzheimer disease Qualifiers: Qualified Codes: G30.9 - Alzheimer's disease, unspecified; F02.80 - Dementia in other diseases classified elsewhere without behavioral disturbance (3) Oxygen dependent Assessment & Plan: 2L at all times at baseline, Will titrate O2 to maintain sats of > or = to 92% (4) Right lower lobe pneumonia Qualifiers: Qualified Codes: J18.1 - Lobar pneumonia, unspecified organism (5) Type 2 diabetes mellitus Qualifiers: Assessment & Plan: will hold home meds and place on sliding scale for the current time. once lactate is WNL and patient showing clinical improvement, will consider restarting home meds, otherwise will restart on discharge. 12/07 resume home glipizide, holding metformin due to lactic acidosis (6) Hypertension Qualifiers: Qualified Codes: I10 - Essential (primary) hypertension Assessment & Plan: will resume hold meds except ELLEN Inhibitor and monitor blood pressure with routine vital signs 12/07 resume home ACEI (7) Lactic acidosis Assessment & Plan: Lactate elevated in ED, repeat was done last night and noted this morning to still be elevated. Will recheck now and if elevated, will hydrate. Questionable pulmonary edema on portable CXR from ED, 2 view ordered now, echo also ordered. If no signs of failure and effusions appear less significant on 2 view CXR, will aggressively hydrate. Repeat lactate after hydration. Will monitor closely for other signs of sepsis. 12/07 remains mildly elevated, but stable. Unclear etiology as his clinical status is much improved. If stable between 2-3 tomorrow, will consider d/c Clinical Quality Measures DVT/VTE Risk/Contraindication: Risk Factor Score Per Nursin RFS Level Per Nursing on Admit: 2=Moderate ROBBY HANLEY MD Dec 07, 2016 9:26 pm
[2016-12-08] VITALS: BP 157/82
[2016-12-08] MEDS: cefTRIAXone INJECTION 1,000 MG in NS (IVPB) 50 ML IV SCH (00:49)
[2016-12-08] MEDS: NS IV 1000 ML 1,000 ML IV SCH (03:51)
[2016-12-08 06:05] LABS: MEAN PLATELET VOLUME 9.3 FL (7.4-10.4); RED BLOOD COUNT 4.59 10^6/uL (4.35-5.85); RED CELL DISTRIBUTION WIDTH 12.2 % (10.0-14.5); WHITE BLOOD COUNT 9.6 10^3/uL (4.3-11.0)
[2016-12-08 06:23] LABS: ANION GAP 15 MMOL/L (5-14); BLOOD UREA NITROGEN 14 MG/DL (7-18); BUN/CREATININE RATIO 17; CALCIUM 9.4 MG/DL (8.5-10.1); CARBON DIOXIDE 18 MMOL/L (21-32); CHLORIDE 104 MMOL/L (98-107); CREATININE SERUM 0.82 MG/DL (0.60-1.30); GFR ESTIMATED > 60; GLUCOSE 102 MG/DL (70-105); POTASSIUM 4.1 MMOL/L (3.6-5.0); SODIUM 137 MMOL/L (135-145)
[2016-12-08] MEDS: inSUlin (REGULAR) HUMAN 1 UNIT/0.01 ML (CHARGE PER UNIT) SC SCH ×2 (06:40→09:30)
[2016-12-08] MEDS: predniSONE 20 MG TAB PO SCH (06:43)
[2016-12-08 08:00] VITALS: BP 162/86
[2016-12-08] MEDS ORDERED: glipiZIDE 5 MG (GLUCOTROL) TAB PO SCH (08:00)
[2016-12-08] MEDS: PREGABALIN 100 MG (LYRICA) CAPSULE PO SCH (10:00)
[2016-12-08] MEDS: clonazePAM 1 MG (KlonoPIN) TAB PO SCH (10:00)
[2016-12-08] MEDS: AZITHROMYCIN 250 MG TAB (ZITHROMAX) PO SCH (10:00)
[2016-12-08] MEDS: FLUTICASONE NASAL SPRAY (FLONASE) 16 GM BTL NS SCH (10:01)
[2016-12-08] MEDS: MULTIVITAMIN PO SCH (10:01)
[2016-12-08] MEDS: [UNRECOGNIZED DRUG - OTHER] PO SCH (10:01)
[2016-12-08] MEDS: SUCRALFATE 1 GM (CARAFATE) TAB PO SCH (10:02)
[2016-12-08] MEDS: PANTOPRAZOLE 40 MG (PROTONIX) TAB PO SCH (10:02)
[2016-12-08] MEDS: doxAzosin 4 MG (CARDURA) TAB PO SCH (10:03)
[2016-12-08] MEDS: guaiFENesin/DM (ROBITUSSIN DM) 10 ML UDC PO SCH (10:04)
[2016-12-08] MEDS: RIVASTIGMINE 4.6 MG/24 HR PATCH TD SCH (10:04)
[2016-12-08] MEDS ORDERED: AZIT250T12 PO (10:17)
[2016-12-08] MEDS ORDERED: PRD20T PO (10:17)
--- NOTE | 2016-12-08 10:19 | Discharge Instructions ---
Discharge [facility] Discharge Medications New, Converted or Re-Newed RX: Transmitted to Pharmacy New Medications: Azithromycin (Azithromycin) 250 Mg Tablet 250 MG PO DAILY for 3 Days, #3 TAB 0 Refills Prednisone (Prednisone) 20 Mg Tab 40 MG PO DAILY@0700 for 3 Days, #6 TAB 0 Refills Continued Medications: Acetaminophen/Diphenhydramine (Tylenol Pm Ex-Strength Caplet) 1 Each Tablet 2 TAB PO HS, TAB Amlodipine Besylate (Amlodipine Besylate) 10 Mg Tablet 10 MG PO HS, TAB Atorvastatin Calcium (Atorvastatin Calcium) 40 Mg Tablet 40 MG PO HS, TAB Benazepril HCl (Benazepril HCl) 20 Mg Tablet 20 MG PO HS, TAB Chlorphen/Dm/Acetaminophen/GG (Coricidin Hbp Day-Night Pack) 1 Each Tb.cp.seq 1-2 TAB PO Q6H PRN for DRAINAGE, CAP Clonazepam (Clonazepam) 1 Mg Tablet 1 MG PO TID, TAB Doxazosin Mesylate (Doxazosin Mesylate) 4 Mg Tablet 4 MG PO DAILY, TAB Fluticasone Propionate (Fluticasone Propionate) 16 Gm [place].susp 2 SPRAYS NS DAILY, SPRAY Glipizide (Glipizide) 5 Mg Tablet 5 MG PO DAILY, TAB Glycerin/Propylene Glycol (Lubricant Eye Drops) 15 Ml Drops 1 DROP OU QID PRN for DRY EYES, DROPS Guaifenesin/Dextromethorphan (Guaifenesin Dm Syrup) 5 Ml Syrup 5 ML PO TID, ML Ipratropium/Albuterol Sulfate (Iprat-Albut 0.5-3(2.5) mg/3 ml) 3 Ml Ampul.neb 3 ML IH TID, EACH Levocetirizine Dihydrochloride (Levocetirizine Dihydrochloride) 5 Mg Tablet 5 MG PO HS, TAB Mineral Oil/Petrolatum,White (Refresh P.m. Ointment) 3.5 Gm Oint...g. OU BID, TUBE Mirabegron (Myrbetriq) 25 Mg Tab.er.24h 25 MG PO HS, TAB Montelukast Sodium (Singulair) 10 Mg Tablet 10 MG PO HS, TAB Multivitamin (Daily Multiple Vitamin) 1 Each Tablet 1 TAB PO DAILY, TAB Pantoprazole Sodium (Pantoprazole Sodium) 40 Mg Tablet.dr 40 MG PO DAILY, TAB Pregabalin (Lyrica) 100 Mg Capsule 100 MG PO TID, CAP Ranitidine HCl (Acid Track Dresser (RANITIDINE)) 150 Mg Tablet 150 MG PO HS, TAB Rivastigmine (Exelon) 4.6 Mg Patch 4.6 MG TD DAILY, PATCH Sucralfate (Sucralfate) 1 Gm Tablet 1 GM PO QID, TAB Tramadol HCl (Tramadol HCl) 50 Mg Tablet 50 MG PO BID PRN for PAIN-MODERATE, TAB Triamcinolone Acetonide (Triamcinolone Acetonide 0.5% Cream) 15 Gm Cream..g. TOP BID PRN for SORES, EA 0.1% APPLY TO FEET Vilazodone Hydrochloride (Viibryd) 10 Mg Tablet 10 MG PO HS, TAB Discontinued Medications: Metformin HCl (Metformin HCl) 500 Mg Tablet 250 MG PO BID WITH MEALS, TAB TAKES 1/2 (500MG) TABLET Patient Instructions Goal/Follow Up Appt: Follow up with Nata Polk within a week of discharge. Return to The Hospital For: Fever, worsening shortness of breath, inability to keep down medications Activity & Diet Discharge Diet: ADA Diet Activity as Tolerated: Yes Copy Copies To 1: OMER Acevedo BETHANY N MD Dec 08, 2016 10:19 am
--- NOTE | 2016-12-08 20:52 | Discharge Summary ---
Diagnosis/Chief Complaint Date of Admission Dec 06, 2016 at 2:22 pm Date of Discharge Dec 08, 2016 at 1:09 pm Admission Diagnosis Admission Diagnosis (1) Pulmonary edema (2) COPD (chronic obstructive pulmonary disease) (3) Alzheimer disease (4) Oxygen dependent (5) Right lower lobe pneumonia (6) Type 2 diabetes mellitus (7) Hypertension (8) Lactic acidosis Discharge Diagnosis (1) COPD (chronic obstructive pulmonary disease) Assessment & Plan: continue O2, antibiotics for suspected PNA. Will resume home breathers. 12/07 Improved, not requiring supplemental oxygen this am 12/08- stable on home oxygen, discharged to complete 3 more days of prednisone 40 mg (2) Alzheimer disease (3) Oxygen dependent Assessment & Plan: 2L at all times at baseline, Will titrate O2 to maintain sats of > or = to 92% (4) Right lower lobe pneumonia Unclear if true pneumonia vs COPD exacerbation, on discharge, complete course of azithromycin (5) Type 2 diabetes mellitus Assessment & Plan: will hold home meds and place on sliding scale for the current time. once lactate is WNL and patient showing clinical improvement, will consider restarting home meds, otherwise will restart on discharge. 12/07 resume home glipizide, holding metformin due to lactic acidosis 12/08 on discharge, stopped metformin due to persistent lactic acidosis (6) Hypertension Assessment & Plan: will resume hold meds except ELLEN Inhibitor and monitor blood pressure with routine vital signs 12/07 resume home ACEI (7) Lactic acidosis Assessment & Plan: Lactate elevated in ED, repeat was done last night and noted this morning to still be elevated. Will recheck now and if elevated, will hydrate. Questionable pulmonary edema on portable CXR from ED, 2 view ordered now, echo also ordered. If no signs of failure and effusions appear less significant on 2 view CXR, will aggressively hydrate. Repeat lactate after hydration. Will monitor closely for other signs of sepsis. 12/07 remains mildly elevated, but stable. Unclear etiology as his clinical status is much improved. If stable between 2-3 tomorrow, will consider d/c 12/08 lactic acid remained persistently between 2-3 with no other signs of sepsis and benign clinical picture, discontinued metformin Chief Complaint/HPI Chief Complaint/HPI Shortness of Breath Patient presented to ED last night with increased shortness of breath for the last 1-2 days. Is coughing some, but isn't really coughing anything up. He is O2 dependent at baseline - 2L - and had decreased oxygen sats. He was treated in the ED and admitted for right sided PNA. He denies any sick contacts. Reports that he gets PNA about once a year, and this feels similar. Discharge Summary-Simple/Stand Consultations Discharge Physical Examination Allergies: Coded Allergies: aspirin (Unverified Allergy, Unknown, 05/20/14) codeine (Verified Allergy, Unknown, 04/07/06) hydrocodone (Unverified Allergy, Unknown, 10/16/15) Uncoded Allergies: SSRI (Allergy, Unknown, 05/20/14) TCA (Allergy, Unknown, 05/20/14) Vitals & I&Os Vital Sign - Last 12Hours Date Time Temp Pulse Resp B/P (MAP) Pulse Ox O2 Delivery O2 Flow Rate FiO2 12/08/16 08:47 93 Nasal Cannula 3.00 12/08/16 08:00 98.5 88 18 162/86 General Appearance: Alert, No Acute Distress Respiratory: Clear to Auscultation, Normal Air Movement Cardiovascular: Regular Rate Neuro: Normal Speech Psych/Mental Status: Mental Status NL Hospital Course See final discharge diagnosis. Labs Laboratory Tests Test 12/06/16 21:05 12/06/16 22:29 12/07/16 05:27 12/07/16 09:33 Range/Units Lactic Acid Level 2.61 *H 2.23 *H 0.50-2.00 MMOL/L Glucometer 175 H 185 H 70-110 MG/DL White Blood Count 8.4 4.3-11.0 10^3/uL Red Blood Count 4.55 4.35-5.85 10^6/uL Hemoglobin 13.3 13.3-17.7 G/DL Hematocrit 40 40-54 % Mean Corpuscular Volume 88 80-99 FL Mean Corpuscular Hemoglobin 29 25-34 PG Mean Corpuscular Hemoglobin Concent 33 32-36 G/DL Red Cell Distribution Width 12.4 10.0-14.5 % Platelet Count 219 130-400 10^3/uL Mean Platelet Volume 9.5 7.4-10.4 FL Neutrophils (%) (Auto) 57 42-75 % Lymphocytes (%) (Auto) 28 12-44 % Monocytes (%) (Auto) 15 H 0-12 % Eosinophils (%) (Auto) 0 0-10 % Basophils (%) (Auto) 0 0-10 % Neutrophils # (Auto) 4.8 1.8-7.8 X 10^3 Lymphocytes # (Auto) 2.3 1.0-4.0 X 10^3 Monocytes # (Auto) 1.3 H 0.0-1.0 X 10^3 Eosinophils # (Auto) 0.0 0.0-0.3 10^3/uL Basophils # (Auto) 0.0 0.0-0.1 10^3/uL Sodium Level 139 135-145 MMOL/L Potassium Level 3.5 L 3.6-5.0 MMOL/L Chloride Level 104 98-107 MMOL/L Carbon Dioxide Level 22 21-32 MMOL/L Anion Gap 13 5-14 MMOL/L Blood Urea Nitrogen 10 7-18 MG/DL Creatinine 0.78 0.60-1.30 MG/DL Estimat Glomerular Filtration Rate > 60 BUN/Creatinine Ratio 13 Glucose Level 115 H 70-105 MG/DL Calcium Level 9.0 8.5-10.1 MG/DL Magnesium Level 2.1 1.8-2.4 MG/DL Test 12/07/16 14:16 12/07/16 14:17 12/07/16 16:17 12/07/16 20:08 Range/Units Glucometer 183 H 167 H 70-110 MG/DL Lactic Acid Level 2.67 *H 2.57 *H 0.50-2.00 MMOL/L Test 12/08/16 05:45 12/08/16 08:28 12/08/16 09:36 Range/Units White Blood Count 9.6 4.3-11.0 10^3/uL Red Blood Count 4.59 4.35-5.85 10^6/uL Hemoglobin 13.5 13.3-17.7 G/DL Hematocrit 40 40-54 % Mean Corpuscular Volume 88 80-99 FL Mean Corpuscular Hemoglobin 29 25-34 PG Mean Corpuscular Hemoglobin Concent 34 32-36 G/DL Red Cell Distribution Width 12.2 10.0-14.5 % Platelet Count 237 130-400 10^3/uL Mean Platelet Volume 9.3 7.4-10.4 FL Sodium Level 137 135-145 MMOL/L Potassium Level 4.1 3.6-5.0 MMOL/L Chloride Level 104 98-107 MMOL/L Carbon Dioxide Level 18 L 21-32 MMOL/L Anion Gap 15 H 5-14 MMOL/L Blood Urea Nitrogen 14 7-18 MG/DL Creatinine 0.82 0.60-1.30 MG/DL Estimat Glomerular Filtration Rate > 60 BUN/Creatinine Ratio 17 Glucose Level 102 70-105 MG/DL Lactic Acid Level 2.17 *H 2.78 *H 0.50-2.00 MMOL/L Calcium Level 9.4 8.5-10.1 MG/DL Glucometer 164 H 70-110 MG/DL Radiology Reviewed CXR 12/05: IMPRESSION: Mild bilateral basilar atelectasis. Probable hiatal hernia. No new or acute abnormality is seen when compared to the recent prior study. Discharge Instructions to patient/family Please see electronic discharge instructions given to patient. Discharge Medications Reviewed and agree with Discharge Medication list on patient's Discharge Instruction sheet Clinical Quality Measures DVT/VTE Risk/Contraindication: Risk Factor Score Per Nursin RFS Level Per Nursing on Admit: 2=Moderate Copy Copies To 1: OMER Acevedo BETHANY N MD Dec 08, 2016 8:52 pm
[2016-12-08] MEDS ORDERED: BENAZEPRIL 20 MG (LOTENSIN) TAB PO SCH (21:00)
[2017-01-26] MEDS ORDERED: GLIP5TAB13 PO (14:14)
[2017-01-26] MEDS ORDERED: RIVA1PAT11 TD (18:02)
[2017-01-26] MEDS ORDERED: TR1C15 TP (18:02)
[2017-01-26] MEDS ORDERED: METF500T4 PO (18:02)
[2017-01-26] MEDS ORDERED: MIRA25TA PO (18:02)
[2017-01-26] MEDS ORDERED: MONT10TA24 PO (18:02)
[2017-01-26] MEDS ORDERED: RANI150T11 PO (18:02)
[2017-01-27] MEDS ORDERED: AZIT250T12 PO (11:28)
[2017-01-27] MEDS ORDERED: CEFP200T2 PO (11:31)
== END 2016-12-08 13:09 | disposition home or self-care (01) | DRG 190 ==
LOC: EDUNIT# 21:14 → ER 21:15 → UNDOADMOB 12-06 01:15 → 4TH 12-06 01:15 → OBSVTOIN 12-06 14:22 → INTOOBSV 12-06 14:22 → UNDODISIN 12-08 13:09
PROVIDERS: ADMIT Pediatrics; ATTEND Pediatrics
DX: J44.0 Chronic obstructive pulmonary disease with (acute) lower respiratory infection (principal); J18.9 Pneumonia, unspecified organism; J81.0 Acute pulmonary edema; E87.2 Acidosis; G30.9 Alzheimer's disease, unspecified; F02.80 Dementia in other diseases classified elsewhere, unspecified severity, without behavioral disturbance, psychotic disturbance, mood disturbance, and anxiety; E11.9 Type 2 diabetes mellitus without complications; I10 Essential (primary) hypertension; E78.5 Hyperlipidemia, unspecified; K21.9 Gastro-esophageal reflux disease without esophagitis; Z99.81 Dependence on supplemental oxygen; Z87.891 Personal history of nicotine dependence; Z85.46 Personal history of malignant neoplasm of prostate
CPT/HCPCS: 36415; 71010; 71020; 80048; 80053; 82962; 83605; 83735; 83880; 84145; 85025; 85027; 86141; 87040; 93325; 94640; 94760; 96365; G0378

== ENCOUNTER 2017-04-10 10:07 | Emergency (ER) | payer MEDICARE, MEDICAID ==
[~2017-04-10] VITALS: Ht 182.9 cm; Wt 105.7 kg
[~2017-04-10 10:07] MED LIST changes: +CEFP200T2 PO; +GLYC15DR3 OU; +GUAI5SYR PO; +IPRA3AMP IH; +MINE3.5O OU; +MIRA25TA PO; +MULT-35 PO; +RANI150T11 PO; +TR1C15 TP
[2017-04-10] MEDS ORDERED: PRD20T PO (12:21)
--- NOTE | 2017-04-10 12:24 | ED Respiratory ---
General Chief Complaint: Cough/Cold/Flu Symptoms Stated Complaint: COUGH Nursing Triage Note: PT. HAS COUGH. SPUTUM MACKAY COLOR History of Present Illness Time seen by provider: 11:40 Initial Comments 81-year-old male reports increased cough at night with mackay to white sputum production. He has long-standing history of COPD. He uses CPAP at night and wears oxygen during the day. He denies any shortness of breath. He's had no recent fevers, diaphoresis, nausea or vomiting. Continues to take all of his normal medications and received a flu and pneumonia vaccine this year. He has ordered a hospital bed to keep him upright at night for sleeping. It has not been delivered yet. Timing/Duration: yesterday Severity: mild Prior Episodes/Possible Cause: frequent episodes Modifying Factors: Improves With Coughing, Improves With Rest Associated Symptoms: cough, wheezing Allergies and Home Medications Allergies Coded Allergies: aspirin (Unverified Allergy, Unknown, 05/20/14) codeine (Verified Allergy, Unknown, 04/07/06) hydrocodone (Unverified Allergy, Unknown, 10/16/15) Uncoded Allergies: SSRI (Allergy, Unknown, 05/20/14) TCA (Allergy, Unknown, 05/20/14) Home Medications Amlodipine Besylate 10 Mg Tablet, 10 MG PO HS, (Reported) Atorvastatin Calcium 40 Mg Tablet, 40 MG PO HS, (Reported) Azithromycin 250 Mg Tablet, 250 MG PO DAILY@1700 for 4 Days, #4 Prescribed by: DARIN PINEDO on 01/27/17 1128 Benazepril HCl 20 Mg Tablet, 20 MG PO HS, (Reported) Cefpodoxime Proxetil 200 Mg Tablet, 200 MG PO BID, #14 Ref 0 Prescribed by: DARIN PINEDO on 01/27/17 1131 Chlorphen/Dm/Acetaminophen/GG 1 Each Tb.cp.seq, 1-2 TAB PO Q6H PRN for DRAINAGE, (Reported) Clonazepam 1 Mg Tablet, 1 MG PO TID, (Reported) Doxazosin Mesylate 4 Mg Tablet, 4 MG PO DAILY, (Reported) Fluticasone Propionate 16 Gm [place].susp, 2 SPRAYS NS DAILY, (Reported) Glipizide 5 Mg Tablet, 5 MG PO BID, (Reported) Glycerin/Propylene Glycol 15 Ml Drops, 1 DROP OU QID PRN for DRY EYES, (Reported ) Guaifenesin/Dextromethorphan 5 Ml Syrup, 5 ML PO TID, (Reported) Ipratropium/Albuterol Sulfate 3 Ml Ampul.neb, 3 ML IH TID, (Reported) Levocetirizine Dihydrochloride 5 Mg Tablet, 5 MG PO HS, (Reported) Metformin HCl 500 Mg Tablet, 250 MG PO BID, (Reported) TAKES 1/2 OF A (500 MG) TABLET Mineral Oil/Petrolatum,White 3.5 Gm Oint...g., OU BID, (Reported) Mirabegron 25 Mg Tab.er.24h, 25 MG PO DAILY, (Reported) Montelukast Sodium 10 Mg Tablet, 10 MG PO HS, (Reported) Multivitamin 1 Each Tablet, 1 TAB PO DAILY, (Reported) Pantoprazole Sodium 40 Mg Tablet.dr, 40 MG PO DAILY, (Reported) Prednisone 20 Mg Tab, 20 MG PO DAILY, #5 Ref 0 Prescribed by: DOMINGA TOLEDO on 04/10/17 1221 Pregabalin 100 Mg Capsule, 100 MG PO TID, (Reported) Ranitidine HCl 150 Mg Tablet, 150 MG PO HS, (Reported) Rivastigmine 1 Each Patch.td24, 4.6 MG TD DAILY, (Reported) Sucralfate 1 Gm Tablet, 1 GM PO QID, (Reported) Tramadol HCl 50 Mg Tablet, 50 MG PO BID PRN for PAIN-MODERATE, (Reported) Triamcinolone Acet 15 Gm Cr, TP BID PRN for BED SORES, (Reported) Vilazodone Hydrochloride 10 Mg Tablet, 10 MG PO HS, (Reported) Constitutional: no symptoms reported, see HPI Respiratory: see HPI, cough, phlegm, short of breath All Other Systems Reviewed Negative Unless Noted: Yes Past Fevnlil-Zwgano-Yhhuvz Hx Patient Social History Type Used: Cigarettes Former Smoker, Quit: Mar 31, 1966 2nd Hand Smoke Exposure: No Recent Foreign Travel: No Contact w/Someone Who Travel: No Recent Infectious Disease Expo: No Recent Hopitalizations: No Immunizations Up To Date Tetanus Booster (TDap): Unknown Date of Pneumonia Vaccine: Mar 31, 2016 Date of Influenza Vaccine: Dec 19, 2016 Seasonal Allergies Seasonal Allergies: Yes Surgeries History of Surgeries: Yes (RIGHT EYELID BASAL CELL CANCER) Surgeries: Abdominal, Adenoidectomy, Eye Surgery, Prostatectomy, Tonsillectomy Respiratory History of Respiratory Disorde: Yes (O2 DEPENDENT AT 3L/NC CONTINUOUSLY) Respiratory Disorders: Pneumonia, Chronic Bronchitis, COPD, Emphysema Currently Using CPAP: No Currently Using BIPAP: No Cardiovascular History of Cardiac Disorders: Yes Cardiac Disorders: Chronic Edema/Swelling, High Cholesterol, Hypertension Neurological History of Neurological Disord: Yes Neurological Disorders: Dementia Reproductive System Hx Reproductive Disorders: No Sexually Transmitted Disease: No HIV/AIDS: No Genitourinary History of Genitourinary Disor: Yes (PROSTATE CANCER > 10 YEARS AGO) Genitourinary Disorders: Prostate Problems, Kidney Stones Gastrointestinal History of Gastrointestinal Di: Yes Gastrointestinal Disorders: Abdominal Hernia, Gastroesophageal Reflux, Polyps, Hiatal Hernia Musculoskeletal History of Musculoskeletal Dis: Yes Musculoskeletal Disorders: Arthritis Endocrine History of Endocrine Disorders: Yes Endocrine Disorders: Diabetes, Non-Insulin dep HEENT History of HEENT Disorders: Yes HEENT Disorders: Cataract Loss of Vision: Right Hearing Impairment: Denies Cancer History of Cancer: Yes (BASAL CELL CANCER RIGHT EYELID; PROSTATE SURGERY, NO CHEMO OR RADIATION) Cancer: Prostate, Skin Did You Recieve Any Treatments: Yes Type of Tx Receive: Surgical Intervention Psychosocial History of Psychiatric Problem: Yes Behavioral Health Disorders: Anxiety, Depression Integumentary History of Skin or Integumenta: Yes (SKIN CANCER) Blood Transfusions History of Blood Disorders: No Adverse Reaction to a Blood Tr: No Reviewed Nursing Assessment Reviewed/Agree w Nursing PMH: Yes Family Medical History Significant Family History: Lung Disease Family Medial History: FH: breast cancer G8 SISTER Physical Exam Vital Signs Vital Sign - Last 12Hours 04/10/17 10:54 Temp 98.0 Pulse 86 Resp 18 B/P (MAP) 123/64 (83) Pulse Ox 91 O2 Delivery Nasal Cannula O2 Flow Rate 2.00 Capillary Refill : Less Than 3 Seconds General Appearance: WD/WN, no apparent distress HEENT: normal ENT inspection, TMs normal, pharynx normal Neck: non-tender, full range of motion, supple Respiratory: chest non-tender, lungs clear, normal breath sounds, no respiratory distress Cardiovascular: normal peripheral pulses, regular rate, rhythm, no murmur Gastrointestinal: normal bowel sounds, non tender, soft Extremities: normal range of motion, non-tender, normal inspection, no calf tenderness Neurologic/Psychiatric: no motor/sensory deficits, alert, normal mood/affect Skin: normal color, warm/dry Lymphatic: no adenopathy Progress/Results/Core Measures Suspected Sepsis Recent Fever Within 48 Hours: No Infection Criteria Present: None New/Unexplained Altered Menta: No Sepsis Screen: No Definite Risk Sepsis Diagnosis: SIRS Temperature:98.0 Pulse: 86 Respiratory Rate: 18 Blood Pressure 123 /64 Mean: 83 Results/Orders My Orders Orders - DOMINGA TOLEDO Chest Pa/Lat (2 View) (04/10/17 11:40) Vital Signs/I&O Vital Sign - Last 12Hours 04/10/17 04/10/17 10:54 12:44 Temp 98.0 Pulse 86 84 Resp 18 18 B/P (MAP) 123/64 (83) Pulse Ox 91 90 O2 Delivery Nasal Cannula Nasal Cannula O2 Flow Rate 2.00 2.00 Capillary Refill : Less Than 3 Seconds Blood Pressure Mean: 83 Diagnostic Imaging Diagonstic Imaging: Xray Plain Films/CT/US/NM/MRI: chest Comments NAME: ISABELA ESPINOZA MED REC#: [id number] PT STATUS: REG ER : 1935 PHYSICIAN: DOMINGA TOLEDO ADMIT DATE: 04/10/17/ER Draft Date of Exam:04/10/17 CHEST PA/LAT (2 VIEW) INDICATION: Cough. COMPARISON: 01/26/2017. FINDINGS: While underlying COPD as a chronic finding is present, the perihilar and basilar parenchymal opacity show mild progression and developing pneumonia could not be excluded. No effusion or pneumothorax. The upper limits heart size is stable. No gross overdistention of the vascularity. IMPRESSION: Chronic lung disease is present; however, the basilar markings have increased in density. Developing pneumonias could not be excluded. No acute pleural pathology. Dictated on workstation # [id number] Dict: 04/10/17 1215 Trans: 04/10/17 1233 [id number] Interpreted by: CASSIE IVEY Electronically signed by: Reviewed: Reviewed by Me Departure Impression Impression: Primary Impression: Bronchitis Disposition: HOME, SELF-CARE Condition: Stable Departure-Patient Inst. Decision time for Depature: 12:35 Referrals: [facility] (PCP/Family) Primary Care Physician Add. Discharge Instructions: Increase water intake. Continue to use her oxygen and CPAP at home. Follow up with Leslie Polk APRN if symptoms are not improving or you worsen. Take Prednisone as directed. Tylenol 650 mg every 6 hours for pain or fever. Turned to emergency department if difficulty breathing, fever greater than 101 not relieved by Tylenol, change in sputum production, shortness of breath, or new problems. All discharge instructions reviewed with patient and/or family. Voiced understanding. Scripts Prednisone (Prednisone) 20 Mg Tab 20 MG PO DAILY, #5 TAB 0 Refills Prov: DOMINGA TOLEDO 04/10/17 Copy Copies To 1: ALEJANDRA CONTRERAS MD, AMY ARNP Apr 10, 2017 12:24
--- NOTE | 2017-04-10 12:33 | Diagnostic Imaging Report ---
INDICATION: Cough. COMPARISON: 01/26/2017. FINDINGS: While underlying COPD as a chronic finding is present, the perihilar and basilar parenchymal opacity show mild progression and developing pneumonia could not be excluded. No effusion or pneumothorax. The upper limits heart size is stable. No gross overdistention of the vascularity. IMPRESSION: Chronic lung disease is present; however, the basilar markings have increased in density. Developing pneumonias could not be excluded. No acute pleural pathology. Dictated by: Dictated on workstation # [id number]
[2017-04-10 12:44] VITALS: BP 142/75
--- OUTSIDE RECORDS SUMMARY | 2017-04-10 20:35 | XMS REPORT ---
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 Active 8377478 Problem COPD exacerbation J44.1 Active 893994261 Problem 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 Active 680411450 Problem Chronic GERD K21.9 Active 873365532 Problem Chronic pain syndrome G89.4 Active 151478489 Problem Actinic keratosis L57.0 Active 891919826 Problem Hiatal hernia K44.9 Active 42832706 Problem Type 2 diabetes mellitus with diabetic neuropathy, without long-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 Active 38593022 Problem Eye drainage H57.8 Active 34768902 Problem Onychia of toe, unspecified laterality L03.039 Active 358604287 Problem Allergic rhinitis, unspecified allergic rhinitis trigger, unspecified rhinitis seasonality J30.9 Active 50400959 Problem Arthritis of both knees M19.90 Active 911709539 Problem Essential hypertension I10 Active 56877909 Problem Chronic obstructive pulmonary disease, unspecified COPD type J44.9 Active 09017708 Problem Anxiety F41.9 Active 35577668 Problem Hypoxia R09.02 Active 785592151 Problem Mixed hyperlipidemia E78.2 Active [id number] ALLERGIES No Information SOCIAL HISTORY Never Assessed PLAN OF CARE VITAL SIGNS MEDICATIONS Medication Instructions Dosage Frequency Start Date End Date Duration Status Clonazepam 1 MG Orally 3x a day prn must last 28 Days 1 tablet Active Lyrica 100 MG Orally Twice a day 1 capsule 12h 28 days Active RESULTS No Results PROCEDURES No Known procedures IMMUNIZATIONS No Known Immunizations MEDICAL (GENERAL) HISTORY Type Description Date Medical History hypertension Medical History chronic obstructive pulmonary disease (COPD)-wears 2L O2 per [place], uses [place] for home O2 Medical History Arthritis-knees and back Medical History type II diabetes-2008 Medical History depression-Dr. Segura dx in 2014 Medical History anxiety- Dr. 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
--- OUTSIDE RECORDS SUMMARY | 2017-04-10 20:37 | XMS REPORT ---
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 Active 5558455 Problem COPD exacerbation J44.1 Active 971436923 Problem 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 Active 750669078 Problem Chronic GERD K21.9 Active 770213435 Problem Chronic pain syndrome G89.4 Active 628769541 Problem Actinic keratosis L57.0 Active 186049996 Problem Hiatal hernia K44.9 Active 04963374 Problem Type 2 diabetes mellitus with diabetic neuropathy, without long-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 Active 17401354 Problem Eye drainage H57.8 Active 98166908 Problem Onychia of toe, unspecified laterality L03.039 Active 390797110 Problem Allergic rhinitis, unspecified allergic rhinitis trigger, unspecified rhinitis seasonality J30.9 Active 31953500 Problem Arthritis of both knees M19.90 Active 640687457 Problem Essential hypertension I10 Active 31737092 Problem Chronic obstructive pulmonary disease, unspecified COPD type J44.9 Active 62068427 Problem Anxiety F41.9 Active 04106395 Problem Hypoxia R09.02 Active 146397937 Problem Mixed hyperlipidemia E78.2 Active 460482668 ALLERGIES No Information SOCIAL HISTORY Never Assessed PLAN OF CARE VITAL SIGNS MEDICATIONS Medication Instructions Dosage Frequency Start Date End Date Duration Status PredniSONE 10 mg Orally Once a day 1 tablet 24h July, 4 days Active RESULTS No Results PROCEDURES No Known procedures IMMUNIZATIONS No Known Immunizations MEDICAL (GENERAL) HISTORY Type Description Date Medical History hypertension Medical History chronic obstructive pulmonary disease (COPD)-wears 2L O2 per [place], uses [place] for home O2 Medical History Arthritis-knees and [...] fall 02/2016 Hospitalization History [facility] 11/2016 Hospitalization History COPD exacerbation - Dr Hartley Attending 12/2016
--- OUTSIDE RECORDS SUMMARY | 2017-04-10 20:37 | XMS REPORT ---
Author Author ASIM LINARES [facility] Address [address] [place] [address] Care Team Providers Care Nut And Bolt Assembler Name Role Phone ASIM LINARES Unavailable PROBLEMS Type Condition ICD9-CM Code ANN32-TW Code Onset Dates Condition Status SNOMED Code Problem Unspecified asthma with (acute) exacerbation J45.901 Active 500050460 Problem Unspecified symptoms and signs involving cognitive functions and awareness R41.9 Active 895074394 Problem Osteoarthritis of both knees, unspecified osteoarthritis type M17.0 Active 196173727 Problem Lactic acidosis E87.2 Active 01038341 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 Active 7425538 Problem COPD exacerbation J44.1 Active 595046452 Problem 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 Active 864479563 Problem Chronic GERD K21.9 Active 709097003 Problem Chronic pain syndrome G89.4 Active 461103300 Problem Actinic keratosis L57.0 Active 807413350 Problem Hiatal hernia K44.9 Active 88689049 Problem Type 2 diabetes mellitus with diabetic neuropathy, without long-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 Active 77672596 Problem Eye drainage H57.8 Active 15993598 Problem Onychia of toe, unspecified laterality L03.039 Active 462181815 Problem Allergic rhinitis, unspecified allergic rhinitis trigger, unspecified rhinitis seasonality J30.9 Active 97166928 Problem Arthritis of both knees M19.90 Active 671549426 Problem Essential hypertension I10 Active 62497200 Problem Chronic obstructive pulmonary disease, unspecified COPD type J44.9 Active 85741740 Problem Anxiety F41.9 Active 34036149 Problem Hypoxia R09.02 Active 935679586 Problem Mixed hyperlipidemia E78.2 Active 139181108 ALLERGIES No Information SOCIAL HISTORY Never Assessed PLAN OF CARE VITAL SIGNS MEDICATIONS Unknown Medications RESULTS No Results PROCEDURES No Known procedures IMMUNIZATIONS No Known Immunizations MEDICAL (GENERAL) HISTORY Type Description Date Medical History hypertension Medical History chronic obstructive pulmonary disease (COPD)-wears 2L O2 per [place], uses [place] for home O2 Medical History Arthritis-knees and [...]
--- OUTSIDE RECORDS SUMMARY | 2017-04-10 20:42 | XMS REPORT ---
Author Author ASIM LINARES [facility] Address [address] [place] [address] Care Team Providers Care And Rescue Fire Fighter Crash Fire Name Role Phone ASIM LINARES Unavailable PROBLEMS Type Condition ICD9-CM Code PEL51-JD Code Onset Dates Condition Status SNOMED Code Problem Unspecified asthma with (acute) exacerbation J45.901 Active 908854311 Problem Unspecified symptoms and signs involving cognitive functions and awareness R41.9 Active 269430794 Problem Osteoarthritis of both knees, unspecified osteoarthritis type M17.0 Active 520240538 Problem Lactic acidosis E87.2 Active 23842608 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 Active 7961699 Problem COPD exacerbation J44.1 Active 731379151 Problem 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 Active 978723375 Problem Chronic GERD K21.9 Active 940300861 Problem Chronic pain syndrome G89.4 Active 969981724 Problem Actinic keratosis L57.0 Active 197535824 Problem Hiatal hernia K44.9 Active 12903251 Problem Type 2 diabetes mellitus with diabetic neuropathy, without long-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 Active 83620390 Problem Eye drainage H57.8 Active 72958151 Problem Onychia of toe, unspecified laterality L03.039 Active 316626946 Problem Allergic rhinitis, unspecified allergic rhinitis trigger, unspecified rhinitis seasonality J30.9 Active 45120546 Problem Arthritis of both knees M19.90 Active 529174940 Problem Essential hypertension I10 Active 95514442 Problem Chronic obstructive pulmonary disease, unspecified COPD type J44.9 Active 35162367 Problem Anxiety F41.9 Active 87904740 Problem Hypoxia R09.02 Active 126426690 Problem Mixed hyperlipidemia E78.2 Active 057457361 ALLERGIES No Information SOCIAL HISTORY Never Assessed PLAN OF CARE VITAL SIGNS MEDICATIONS Unknown Medications RESULTS No Results PROCEDURES No Known procedures IMMUNIZATIONS No Known Immunizations MEDICAL (GENERAL) HISTORY Type Description Date Medical History hypertension Medical History chronic obstructive pulmonary disease (COPD)-wears 2L O2 per [place], uses [place] for home O2 Medical History Arthritis-knees and [...]
--- OUTSIDE RECORDS SUMMARY | 2017-04-10 20:44 | XMS REPORT ---
Author Author ASIM LINARES [facility] Address [address] [place] [address] Care Team Providers Care Actionscript Developer Name Role Phone ASIM LINARES Unavailable PROBLEMS Type Condition ICD9-CM Code FOS27-AH Code Onset Dates Condition Status SNOMED Code Problem Unspecified asthma with (acute) exacerbation J45.901 Active 989423390 Problem Unspecified symptoms and signs involving cognitive functions and awareness R41.9 Active 279167056 Problem Osteoarthritis of both knees, unspecified osteoarthritis type M17.0 Active 220720853 Problem Lactic acidosis E87.2 Active 70678725 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 Active 9913185 Problem COPD exacerbation J44.1 Active 633392568 Problem 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 Active 114913794 Problem Chronic GERD K21.9 Active 239875705 Problem Chronic pain syndrome G89.4 Active 439338130 Problem Actinic keratosis L57.0 Active 846034665 Problem Hiatal hernia K44.9 Active 45350993 Problem Type 2 diabetes mellitus with diabetic neuropathy, without long-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 Active 97340060 Problem Eye drainage H57.8 Active 88618052 Problem Onychia of toe, unspecified laterality L03.039 Active 610641881 Problem Allergic rhinitis, unspecified allergic rhinitis trigger, unspecified rhinitis seasonality J30.9 Active 79493844 Problem Arthritis of both knees M19.90 Active 379754940 Problem Essential hypertension I10 Active 83539146 Problem Chronic obstructive pulmonary disease, unspecified COPD type J44.9 Active 34331909 Problem Anxiety F41.9 Active 29112270 Problem Hypoxia R09.02 Active 603517779 Problem Mixed hyperlipidemia E78.2 Active 813012491 ALLERGIES No Information SOCIAL HISTORY Never Assessed PLAN OF CARE VITAL SIGNS MEDICATIONS Unknown Medications RESULTS No Results PROCEDURES No Known procedures IMMUNIZATIONS No Known Immunizations MEDICAL (GENERAL) HISTORY Type Description Date Medical History hypertension Medical History chronic obstructive pulmonary disease (COPD)-wears 2L O2 per [place], uses [place] for home O2 Medical History Arthritis-knees and [...]
--- OUTSIDE RECORDS SUMMARY | 2017-04-10 20:44 | XMS REPORT ---
Author Author ASIM LINARES [facility] Address [address] [place] [address] Care Team Providers Care Broom Maker Name Role Phone ASIM LINARES Unavailable PROBLEMS Type Condition ICD9-CM Code [id number] Code Onset Dates Condition Status SNOMED Code Problem Unspecified asthma with (acute) exacerbation J45.901 Active 888255947 Problem Unspecified symptoms and signs involving cognitive functions and awareness R41.9 Active 906321191 Problem Osteoarthritis of both knees, unspecified osteoarthritis type M17.0 Active 431896469 Problem Lactic acidosis E87.2 Active 43116577 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 Active 6670000 Problem COPD exacerbation J44.1 Active 494378636 Problem 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 Active 988389017 Problem Chronic GERD K21.9 Active 556590650 Problem Chronic pain syndrome G89.4 Active 506468239 Problem Actinic keratosis L57.0 Active 408962289 Problem Hiatal hernia K44.9 Active 09497046 Problem Type 2 diabetes mellitus with diabetic neuropathy, without long-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 Active 37249590 Problem Eye drainage H57.8 Active 38016836 Problem Onychia of toe, unspecified laterality L03.039 Active 725920082 Problem Allergic rhinitis, unspecified allergic rhinitis trigger, unspecified rhinitis seasonality J30.9 Active 27589154 Problem Arthritis of both knees M19.90 Active 013408342 Problem Essential hypertension I10 Active 46681286 Problem Chronic obstructive pulmonary disease, unspecified COPD type J44.9 Active 72137707 Problem Anxiety F41.9 Active 10107916 Problem Hypoxia R09.02 Active 755593786 Problem Mixed hyperlipidemia E78.2 Active 229003127 ALLERGIES No Information SOCIAL HISTORY Never Assessed PLAN OF CARE VITAL SIGNS MEDICATIONS Medication Instructions Dosage Frequency Start Date End Date Duration Status Clonazepam 1 MG Orally 3x a day prn must last 28 Days 1 tablet Active RESULTS No Results PROCEDURES No Known procedures IMMUNIZATIONS No Known Immunizations MEDICAL (GENERAL) HISTORY Type Description Date Medical History hypertension Medical History chronic obstructive pulmonary disease (COPD)-wears 2L O2 per [place], uses [place] for home O2 Medical History Arthritis-knees and [...]
== END 2017-04-10 12:47 | disposition home or self-care (01) ==
LOC: EDUNIT# 10:07 → ER 10:09
DX: J40 Bronchitis, not specified as acute or chronic (principal); J43.9 Emphysema, unspecified; E78.00 Pure hypercholesterolemia, unspecified; I10 Essential (primary) hypertension; F03.90 Unspecified dementia, unspecified severity, without behavioral disturbance, psychotic disturbance, mood disturbance, and anxiety; K21.9 Gastro-esophageal reflux disease without esophagitis; E11.9 Type 2 diabetes mellitus without complications; F41.9 Anxiety disorder, unspecified; F32.9 Major depressive disorder, single episode, unspecified; Z85.46 Personal history of malignant neoplasm of prostate; Z87.01 Personal history of pneumonia (recurrent); Z79.84 Long term (current) use of oral hypoglycemic drugs; Z87.891 Personal history of nicotine dependence; Z90.89 Acquired absence of other organs; Z85.828 Personal history of other malignant neoplasm of skin; Z90.79 Acquired absence of other genital organ(s)
CPT/HCPCS: 71046; 99282

== ENCOUNTER 2017-05-02 17:23 | Emergency (ER) | payer MEDICARE, MEDICAID ==
[~2017-05-02] VITALS: Ht 182.9 cm; Wt 90.7 kg
--- NOTE | 2017-05-02 17:46 | ED Cough/URI ---
General Chief Complaint: Cough/Cold/Flu Symptoms Stated Complaint: COLD/FLU SYMPTOMS Source: patient Exam Limitations: no limitations History of Present Illness Date Seen by Provider: May 02, 2017 Time Seen by Provider: 17:45 Initial Comments Room air to ER complete by family with reports of cough chills runny nose sore throat since last night. No fevers. He is oxygen dependent for COPD. Timing/Duration: yesterday Severity/Quality: dry cough Associated Symptoms: cough, shortness of breath Allergies and Home Medications Allergies Coded Allergies: aspirin (Unverified Allergy, Unknown, 05/20/14) codeine (Verified Allergy, Unknown, 04/07/06) hydrocodone (Unverified Allergy, Unknown, 10/16/15) Uncoded Allergies: SSRI (Allergy, Unknown, 05/20/14) TCA (Allergy, Unknown, 05/20/14) Home Medications Amlodipine Besylate 10 Mg Tablet, 10 MG PO HS, (Reported) Atorvastatin Calcium 40 Mg Tablet, 40 MG PO HS, (Reported) Azithromycin 250 Mg Tablet, 250 MG PO DAILY@1700 for 4 Days, #4 Prescribed by: DARIN PINEDO on 01/27/17 1128 Benazepril HCl 20 Mg Tablet, 20 MG PO HS, (Reported) Cefpodoxime Proxetil 200 Mg Tablet, 200 MG PO BID, #14 Ref 0 Prescribed by: DARIN PINEDO on 01/27/17 1131 Chlorphen/Dm/Acetaminophen/GG 1 Each Tb.cp.seq, 1-2 TAB PO Q6H PRN for DRAINAGE, (Reported) Clonazepam 1 Mg Tablet, 1 MG PO TID, (Reported) Doxazosin Mesylate 4 Mg Tablet, 4 MG PO DAILY, (Reported) Fluticasone Propionate 16 Gm [place].susp, 2 SPRAYS NS DAILY, (Reported) Glipizide 5 Mg Tablet, 5 MG PO BID, (Reported) Glycerin/Propylene Glycol 15 Ml Drops, 1 DROP OU QID PRN for DRY EYES, (Reported ) Guaifenesin/Dextromethorphan 5 Ml Syrup, 5 ML PO TID, (Reported) Ipratropium/Albuterol Sulfate 3 Ml Ampul.neb, 3 ML IH TID, (Reported) Levocetirizine Dihydrochloride 5 Mg Tablet, 5 MG PO HS, (Reported) Metformin HCl 500 Mg Tablet, 250 MG PO BID, (Reported) TAKES 1/2 OF A (500 MG) TABLET Mineral Oil/Petrolatum,White 3.5 Gm Oint...g., OU BID, (Reported) Mirabegron 25 Mg Tab.er.24h, 25 MG PO DAILY, (Reported) Montelukast Sodium 10 Mg Tablet, 10 MG PO HS, (Reported) Multivitamin 1 Each Tablet, 1 TAB PO DAILY, (Reported) Ondansetron 4 Mg Tab.rapdis, 4 MG PO Q4H PRN for NAUSEA/VOMITING-1ST LINE, #10 Prescribed by: BOZENA WERNER on 05/02/170 Oseltamivir Phosphate 75 Mg Cap, 75 MG PO BID, #10 Prescribed by: BOZENA WERNER on 05/02/171839 Pantoprazole Sodium 40 Mg Tablet.dr, 40 MG PO DAILY, (Reported) Prednisone 20 Mg Tab, 20 MG PO DAILY, #5 Ref 0 Prescribed by: DOMINGA TOLEDO on 04/10/17 1221 Pregabalin 100 Mg Capsule, 100 MG PO TID, (Reported) Ranitidine HCl 150 Mg Tablet, 150 MG PO HS, (Reported) Rivastigmine 1 Each Patch.td24, 4.6 MG TD DAILY, (Reported) Sucralfate 1 Gm Tablet, 1 GM PO QID, (Reported) Tramadol HCl 50 Mg Tablet, 50 MG PO BID PRN for PAIN-MODERATE, (Reported) Triamcinolone Acet 15 Gm Cr, TP BID PRN for BED SORES, (Reported) Vilazodone Hydrochloride 10 Mg Tablet, 10 MG PO HS, (Reported) Constitutional: see HPI EENTM: see HPI Respiratory: see HPI, cough Cardiovascular: no symptoms reported Genitourinary: no symptoms reported Musculoskeletal: no symptoms reported Skin: no symptoms reported Psychiatric/Neurological: No Symptoms Reported Past Toommul-Xsxgwa-Jjkmie Hx Patient Social History Type Used: Cigarettes Former Smoker, Quit: Mar 31, 1966 2nd Hand Smoke Exposure: No Recent Foreign Travel: No Contact w/Someone Who Travel: No Recent Hopitalizations: No Immunizations Up To Date Tetanus Booster (TDap): Unknown Date of Pneumonia Vaccine: Mar 31, 2016 Date of Influenza Vaccine: Dec 19, 2016 Seasonal Allergies Seasonal Allergies: Yes Surgeries History of Surgeries: Yes (RIGHT EYELID BASAL CELL CANCER) Surgeries: Abdominal, Adenoidectomy, Eye Surgery, Prostatectomy, Tonsillectomy Respiratory History of Respiratory Disorde: Yes (O2 DEPENDENT AT 3L/[place] CONTINUOUSLY) Respiratory Disorders: Pneumonia, Chronic Bronchitis, COPD, Emphysema Currently Using CPAP: No Currently Using BIPAP: No Cardiovascular History of Cardiac Disorders: Yes Cardiac Disorders: Chronic Edema/Swelling, High Cholesterol, Hypertension Neurological History of Neurological Disord: Yes Neurological Disorders: Dementia Reproductive System Hx Reproductive Disorders: No Sexually Transmitted Disease: No HIV/AIDS: No Genitourinary History of Genitourinary Disor: Yes (PROSTATE CANCER > 10 YEARS AGO) Genitourinary Disorders: Prostate Problems, Kidney Stones Gastrointestinal History of Gastrointestinal Di: Yes Gastrointestinal Disorders: Abdominal Hernia, Gastroesophageal Reflux, Polyps, Hiatal Hernia Musculoskeletal History of Musculoskeletal Dis: Yes Musculoskeletal Disorders: Arthritis Endocrine History of Endocrine Disorders: Yes Endocrine Disorders: Diabetes, Non-Insulin dep HEENT History of HEENT Disorders: Yes HEENT Disorders: Cataract Loss of Vision: Right Hearing Impairment: Denies Cancer History of Cancer: Yes (BASAL CELL CANCER RIGHT EYELID; PROSTATE SURGERY, NO CHEMO OR RADIATION) Cancer: Prostate, Skin Did You Recieve Any Treatments: Yes Type of Tx Receive: Surgical Intervention Psychosocial History of Psychiatric Problem: Yes Behavioral Health Disorders: Anxiety, Depression Integumentary History of Skin or Integumenta: Yes (SKIN CANCER) Blood Transfusions History of Blood Disorders: No Adverse Reaction to a Blood Tr: No Family Medical History Significant Family History: Lung Disease Family Medial History: FH: breast cancer G8 SISTER Physical Exam Vital Signs Vital Sign - Last 12Hours 05/02/17 17:30 Temp 97.9 Pulse 87 Resp 18 B/P (MAP) 118/76 (90) Pulse Ox 95 O2 Delivery Nasal Cannula Capillary Refill : General Appearance: WD/WN, no apparent distress Eyes: Bilateral Eye Normal Inspection, Bilateral Eye PERRL, Bilateral Eye EOMI HEENT: PERRL/EOMI, normal ENT inspection Neck: non-tender, full range of motion Respiratory: normal breath sounds, no respiratory distress, no accessory muscle use Gastrointestinal: normal bowel sounds, non tender, soft Neurologic/Psychiatric: alert, normal mood/affect, oriented x 3 Skin: normal color, warm/dry Progress/Results/Core Measures Suspected Sepsis SIRS Temperature: Pulse: Respiratory Rate: Blood Pressure / Mean: Results/Orders Micro Results Microbiology 05/02/17 Influenza Types A,B Antigen ([facility]) - Final, Complete My Orders Orders - BOZENA WERNER APRN Influenza A And B Antigens (05/02/17 17:39) Chest Pa/Lat (2 View) (05/02/17 17:39) Ondansetron Oral Dissolve Tab (Zofran (05/02/17 18:45) Medications Given in ED Current Medications Medications Dose Ordered Sig/Bernice Route Start Time Stop Time Status Last Admin Dose Admin Ondansetron HCl 8 mg ONCE ONCE PO 05/02/17 18:45 05/02/17 18:46 DC 05/02/17 18:44 8 MG Vital Signs/I&O Vital Sign - Last 12Hours 05/02/17 17:30 Temp 97.9 Pulse 87 Resp 18 B/P (MAP) 118/76 (90) Pulse Ox 95 O2 Delivery Nasal Cannula Capillary Refill : Departure Communication (Admissions) Progress Notes 1835-vitals remain stable. He now complains of nausea and that he had some abdominal pain a few minutes ago that it's gone now. Give Zofran if he improves discharged home. 1908-patient feels much better after the Zofran. Advised him he'll be discharged home. He was a bit disappointed as he states he was hoping to be [facility]. Impression Impression: Primary Impression: Influenza-like illness Disposition: 01 HOME, SELF-CARE Condition: Stable Departure-Patient Inst. Decision time for Depature: 18:36 Referrals: [facility] (PCP/Family) Primary Care Physician Patient Instructions: Flu, Adult (DC) Add. Discharge Instructions: 1. Tylenol and Motrin for fever or body aches 2. Nausea medication as needed 3. Follow-up with your doctor within 2-3 days. Return to ER for any worsening symptoms or shortness of breath Scripts Ondansetron (Zofran Odt) 4 Mg Tab.rapdis 4 MG PO Q4H Y for NAUSEA/VOMITING-1ST LINE, #10 TAB Prov: BOZENA WERNER APRN 05/02/17 Oseltamivir Phosphate (Tamiflu) 75 Mg Cap 75 MG PO BID, #10 CAP Prov: BOZENA WERNER APRN 05/02/17 BOZENA WERNER APRN May 02, 2017 17:46
--- NOTE | 2017-05-02 17:56 | Diagnostic Imaging Report ---
INDICATION: Productive cough. FINDINGS: Two views of the chest show normal heart size and vascularity. There is basilar discoid atelectasis. No infiltrates are seen. There is no effusion or pneumothorax. IMPRESSION: There is bibasilar discoid atelectasis with the right basilar atelectasis slightly more prominent compared to the 04/10/2017 study. Dictated by: Dictated on workstation # [id number]
[2017-05-02] MEDS ORDERED: OSLT75C PO (18:40)
[2017-05-02] MEDS ORDERED: ONDA4TAB8 PO (18:40)
[2017-05-02] MEDS ORDERED: ONDANSETRON 4 MG (ZOFRAN) ORAL DISSOLVE TAB PO ONE (18:45)
[2017-05-02 19:10] VITALS: BP 130/78
== END 2017-05-02 19:10 | disposition home or self-care (01) ==
LOC: EDUNIT# 17:23 → ER 17:25
DX: J11.1 Influenza due to unidentified influenza virus with other respiratory manifestations (principal); I10 Essential (primary) hypertension; E78.00 Pure hypercholesterolemia, unspecified; F03.90 Unspecified dementia, unspecified severity, without behavioral disturbance, psychotic disturbance, mood disturbance, and anxiety; K21.9 Gastro-esophageal reflux disease without esophagitis; F41.9 Anxiety disorder, unspecified; F32.9 Major depressive disorder, single episode, unspecified; E11.9 Type 2 diabetes mellitus without complications; J43.9 Emphysema, unspecified; Z88.5 Allergy status to narcotic agent; Z92.21 Personal history of antineoplastic chemotherapy; Z85.828 Personal history of other malignant neoplasm of skin; Z88.6 Allergy status to analgesic agent; Z87.442 Personal history of urinary calculi; Z87.19 Personal history of other diseases of the digestive system; Z85.46 Personal history of malignant neoplasm of prostate; Z79.84 Long term (current) use of oral hypoglycemic drugs; Z90.89 Acquired absence of other organs; Z87.01 Personal history of pneumonia (recurrent)
CPT/HCPCS: 71046; 87804; 99283

== ENCOUNTER → 2017-05-27 | Outpatient (CLI) | payer MEDICARE, MEDICAID ==
[~2017-05-27] MED LIST changes: +ONDA4TAB8 PO; +OSLT75C PO
== END ==
LOC: CARD 11:13
PROVIDERS: ATTEND Internal Medicine Cardiovascular Disease
DX: I65.23 Occlusion and stenosis of bilateral carotid arteries (principal); J43.8 Other emphysema; E11.9 Type 2 diabetes mellitus without complications; K44.9 Diaphragmatic hernia without obstruction or gangrene; I10 Essential (primary) hypertension; E78.4 Other hyperlipidemia; E87.1 Hypo-osmolality and hyponatremia; E66.8 Other obesity
CPT/HCPCS: 93306

== ENCOUNTER 2017-07-01 22:21 | Emergency (ER) | payer MEDICARE, MEDICAID ==
[~2017-07-01] VITALS: Ht 182.9 cm; Wt 90.7 kg
--- OUTSIDE RECORDS SUMMARY | 2017-07-01 22:28 | XMS REPORT ---
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 Active 8703298 Problem 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 Active 100711952 Problem Mixed hyperlipidemia E78.2 Active 032514843 Problem Chronic GERD K21.9 Active 014438585 Problem Chronic pain syndrome G89.4 Active 887615955 Problem Allergic rhinitis, unspecified allergic rhinitis trigger, unspecified rhinitis seasonality J30.9 Active 20377305 Problem Anxiety F41.9 Active 11388696 Problem Osteoarthritis of both knees, unspecified osteoarthritis type M17.0 Active 878897059 Problem Type 2 diabetes mellitus with diabetic neuropathy, without long-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 Active 95906100 ALLERGIES No Information ENCOUNTERS Encounter Location Date Diagnosis [facility] [address] [address] 15 May, 2017 COPD with acute exacerbation J44.1 [facility] [id number] [place] [address] 75752- 2372 14 May, 2017 Type 2 diabetes mellitus with diabetic neuropathy, without long-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 ; COPD with acute exacerbation J44.1 ; Hypoxia R09.02 ; Chronic pain syndrome G89.4 ; Yeast dermatitis B37.2 ; 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 and 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 [facility] [id number] [place] [address] [place] [address] May, [facility] [address], [place] [address] 30[address] May, Chronic pain syndrome G89.4 [facility] [address], [place] [address] 2546 May, [facility] [id number] [place] [address] 11650- 9156 May, [facility] [id number] [place] [address] 15145 2546 May, Mixed hyperlipidemia E78.2 [facility] [id number] [place] [address] 06095- 5476 May, Chronic pain syndrome G89.4 [facility] [address] [place] [address] 52261- 7686 May, Anxiety F41.9 and Chronic pain syndrome G89.4 [facility] [address], [place] [address] 4526 Mar, [facility] [id number] [place] [address] 17571- 7160 Mar, [facility] [address], [place] [address]- 6583 Mar, [facility] [address], [place] [address] 5396 Mar, [facility] [address], [place] [address] 2546 Mar, [facility] [address] [place] [address] 77738- 6156 Mar, Anxiety F41.9 and Chronic pain syndrome G89.4 [facility] [address], [place] [address] 25[address] Mar, Medicare annual wellness visit, initial Z00.00 ; History of recent steroid use Z92.241 ; Type 2 diabetes mellitus with diabetic neuropathy, without long-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 ; Essential hypertension I10 ; Chronic obstructive pulmonary disease, unspecified COPD type J44.9 ; Anxiety F41.9 ; Mixed hyperlipidemia E78.2 ; 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 ; Chronic pain syndrome G89.4 ; Chronic GERD K21.9 ; Osteoarthritis of both knees, unspecified osteoarthritis type M17.0 ; 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 ; Hypoxia R09.02 ; Hiatal hernia K44.9 and Actinic keratosis L57.0 [facility] [address] [address]- 2013 Mar, [facility] [address] 0[address]- 2086 Mar, Chronic pain syndrome G89.4 [facility] [address] 36239- 1332 Feb, [facility] [address] 82627- 1911 Feb, Chronic pain syndrome G89.4 [facility] [address] 12923- 4479 Feb, [facility] [id number] [place] [address] 76401- 3703 Feb, [facility] [address] 30172- 3778 Feb, Anxiety F41.9 [facility] [id number] [place] [address] 46244- 0937 Feb, [facility] [address] 86861- 6719 Feb, Chronic pain syndrome G89.4 [facility] [id number] [place] [address] 59572- 7377 Jan, Essential hypertension I10 [facility] [address] 18009- 1041 Jan, Chronic pain syndrome G89.4 [facility] [id number] [place] [address] 44115- 5911 Jan, [facility] [id number] [place] [address] 19596- 1770 Jan, Anxiety F41.9 [facility] [address] 28171- 5521 Jan, Encounter for immunization Z23 and Community acquired pneumonia, unspecified laterality J18.9 [facility] [id number] [place] [address] 85640- 0174 Jan, Type 2 diabetes mellitus with diabetic neuropathy, without long-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 [facility] [address] 17568- 3606 Dec, Anxiety F41.9 and Chronic pain syndrome G89.4 [place] [address] 71370- 1489 Dec, Chronic pain syndrome G89.4 and Essential hypertension I10 [place] [address] 55955- 2224 Dec, [facility] [id number] [place] [address] 23541- 2481 Dec, Anxiety F41.9 [facility] [id number] [place] [address] 82525- 6425 Dec, [facility] [id number] [place] [address] 56967- 0490 Dec, Type 2 diabetes mellitus with diabetic neuropathy, without long-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 ; Lactic acidosis E87.2 ; Chronic obstructive pulmonary disease, unspecified COPD type J44.9 and Encounter for immunization Z23 [facility] [id number] [place] [address] 73239- 9959 Dec, Chronic pain syndrome G89.4 [place] [address], [place] [address] 2543 28 Nov, 2016 [facility] [id number] [place] [address] 02566 2546 Nov, Chronic pain syndrome G89.4 [facility] [address], [place] [address] 2547 Nov, [facility] [id number] [place] [address] 00818 2540 21 Nov, 2016 [facility] [address] [place] [address] 74128 2549 15 Nov, 2016 Anxiety F41.9 [facility] [id number] [place] [address] 62952- 2547 11 Nov, 2016 Anxiety F41.9 [facility] [id number] [place] [address] 72158- 4815 08 Nov, 2016 [facility] [address] [place] [address] 48252- 4531 05 Nov, 2016 [facility] [id number] [place] [address] 39202- 5870 Nov, [facility] [address] [place] [address] 89428- 0474 Oct, [facility] [address], [place] [address]- 2171 Oct, [facility] [address], [place] [address]- 2543 Oct, [facility] [address] [place] [address] 27212- 3421 Oct, Essential hypertension I10 and Chronic pain syndrome G89.4 [facility] [address], [place] [address]- 2015 Oct, Anxiety F41.9 [facility] [address] [place] [address] 13771- 5944 Oct, [facility] [id number] [place] [address] 05810- 0033 Oct, Chronic pain syndrome G89.4 [facility] [id number] [place] [address] 94348 -8189 Oct, Sore throat J02.9 and Acute nasopharyngitis (common cold) J00 [facility] [address] 98729- 9480 Sep, [facility] [id number] [place] [address] 39031- 5197 Sep, COPD exacerbation J44.1 [facility] [id number] [place] [address] 79590- 2338 Sep, Chronic pain syndrome G89.4 [facility] [id number] [place] [address] 88101- 9747 Sep, Essential hypertension I10 [facility] [id number] [place] [address] 08706- 0823 Sep, [facility] [address] 65100- 7510 Sep, [facility] [id number] [place] [address] 41021- 3107 Sep, Anxiety F41.9 [facility] [id number] [place] [address] 89523- 8507 Sep, Chronic pain syndrome G89.4 [facility] [id number] [place] [address] 87351- 7641 Sep, [facility] [id number] [place] [address] 87073- 0076 Aug, Acute seasonal allergic rhinitis, unspecified trigger J30.2 ; Hiatal hernia K44.9 and Chronic pain syndrome G89.4 [facility] [id number] [place] [address] 26407- 4409 Aug, [facility] [address] [place] [address] 09907- 9510 Aug, [facility] [id number] [place] [address] 23364- 2086 Aug, Chronic obstructive pulmonary disease, unspecified COPD type J44.9 [facility] [id number] [place] [address] 87564- 2647 14 Aug, 2016 Anxiety F41.9 [facility] [id number] [place] [address] 60241- 1177 08 Aug, 2016 Chronic pain syndrome G89.4 [facility] [id number] [place] [address] 22867- 2949 07 Aug, 2016 Hiatal hernia K44.9 and Actinic keratosis L57.0 [facility] [id number] [place] [address] 75510- 2694 Aug, [facility] [id number] [place] [address] 68895- 9937 Aug, Anxiety F41.9 [facility] [id number] [place] [address] 25245- 5013 July, [facility] [id number] [place] [address] 85154- 0898 July, Hiatal hernia K44.9 [facility] [id number] [place] [address] 76026- 7040 July, [facility] [address] [place] [address] 82717- 0685 July, Anxiety F41.9 and Chronic pain syndrome G89.4 [facility] [address] [place] [address] 61658- 2631 July, [facility] [address] [place] [address] 41481- 8261 Jun, Chronic pain syndrome G89.4 [facility] [id number] [place] [address] 16446- 0285 Jun, Chronic pain syndrome G89.4 [facility] [id number] [place] [address] 05564- 2018 Jun, [facility] [id number] [place] [address] 01444- 8462 Jun, Anxiety F41.9 [facility] [address] 82341- 4195 Jun, Allergic rhinitis, unspecified allergic rhinitis trigger, unspecified rhinitis seasonality J30.9 [facility] [address] 48716- 1759 Jun, [facility] [address] 63268- 3564 May, Chronic pain syndrome G89.4 [facility] [address] 22521- 0647 May, [facility] [id number] [place] [address] 24979- 5025 May, [facility] [id number] [place] [address] 36970- 1013 May, Anxiety F41.9 [facility] [id number] [place] [address] 81679- 7422 May, Type 2 diabetes mellitus with diabetic neuropathy, without long-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 ; Essential hypertension I10 ; Mixed hyperlipidemia E78.2 ; Chronic obstructive pulmonary disease, unspecified COPD type J44.9 ; Chronic GERD K21.9 ; Osteoarthritis of both knees, unspecified osteoarthritis type M17.0 ; 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 ; 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 ; Anxiety F41.9 and Chronic pain syndrome G89.4 [facility] [id number] [place] [address] 56256- 1161 May, Essential hypertension I10 ; Type 2 diabetes mellitus with diabetic neuropathy, without long-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 ; Mixed hyperlipidemia E78.2 ; Chronic obstructive pulmonary disease, unspecified COPD type J44.9 and Chronic GERD K21.9 [facility] [id number] [place] [address] 64753- 0152 May, [facility] [id number] [place] [address] 88747- 4240 May, [place] [address] 80990- 3092 May, Type 2 diabetes mellitus with diabetic neuropathy, without long-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 [facility] [id number] [place] [address] 19183- 7497 May, Dementia without behavioral disturbance, unspecified dementia type F03.90 [facility] [address] 12953- 4713 May, Type 2 diabetes mellitus with diabetic neuropathy, without long-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 ; Essential hypertension I10 ; Mixed hyperlipidemia E78.2 ; Chronic obstructive pulmonary disease, unspecified COPD type J44.9 ; Chronic GERD K21.9 and Osteoarthritis of both knees, unspecified osteoarthritis type M17.0 [facility] [id number] [place] [address] 52464- 9907 May, [facility] [id number] [place] [address] 34641- 9532 May, [facility] [id number] [place] [address] 91171- 5151 May, Anxiety F41.9 and Unspecified symptoms and signs involving cognitive functions and awareness R41.9 [facility] [id number] [place] [address] 90606- 5225 May, [facility] [id number] [place] [address] 22443- 0705 May, Type 2 diabetes mellitus with diabetic neuropathy, without long-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 ; Anxiety F41.9 and Chronic obstructive pulmonary disease, unspecified COPD type J44.9 [facility] [facility] [address] 15387- 6326 May, [facility] [address] 69239- 1101 May, [place] [address] 20768- 8190 May, [place] [facility] [address] 94242- 5706 May, Chronic obstructive pulmonary disease, unspecified COPD type J44.9 [place] [address] 59890- 4040 Mar, [facility] [facility] [address] 31364- 4364 Mar, Arthritis of both knees M19.90 [facility] [address] 43531- 2172 Mar, Type 2 diabetes mellitus with diabetic neuropathy, without long-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 [facility] [id number] [place] [address] 00231- 3642 Mar, [facility] [address] 76726- 0678 Mar, Neck pain M54.2 and Weakness generalized R53.1 [place] [address] 59584- 8578 Mar, [place] [address] 72677- 6066 Mar, Cervicalgia M54.2 and Impacted cerumen of both ears H61.23 [facility] [address] 41272- 2295 Mar, [facility] [address] [address]- 4180 02 Mar, 2016 Type 2 diabetes mellitus with diabetic neuropathy, without long-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 [facility] [address], [place] [address]- 4340 29 Feb, 2016 [facility] [address], [place] [address]- 2349 Feb, Hypoxia R09.02 [facility] [address] [address]- 7726 Feb, [facility] [address] [place] [address] 95052- 0201 Feb, [facility] [address], [place] [address]- 7717 Feb, [facility] [address] [place] [address] 26898- 3142 16 Feb, 2016 Type 2 diabetes mellitus with diabetic neuropathy, without long-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 [facility] [address], [place] [address]- 7242 15 Feb, 2016 Osteoarthritis of both knees, unspecified osteoarthritis type M17.0 [facility] [address], [place] [address]- 2997 14 Feb, 2016 [facility] [address], [place] [address]- 2063 Feb, [facility] [address], [place] [address]- 1129 09 Feb, 2016 [facility] [address] [address]- 9899 15 Jan, 2016 [facility] [address], [place] [address]- 1415 15 Jan, 2016 [facility] [address], [place] [address]- 2076 14 Jan, 2016 [facility] [id number] [place] [address] 42406- 7701 Jan, [place] [address] 11480- 3744 Jan, Tinea pedis of both feet B35.3 [place] [address] 57264- 4569 Jan, Type 2 diabetes mellitus with diabetic neuropathy, without long-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 ; Essential hypertension I10 ; Onychia of toe, unspecified laterality L03.039 ; Arthritis of both knees M19.90 ; Dementia without behavioral disturbance, unspecified dementia type F03.90 ; Chronic obstructive pulmonary disease, unspecified COPD type J44.9 ; Hypoxia R09.02 ; Gastroesophageal reflux disease, esophagitis presence not specified K21.9 ; Anxiety F41.9 ; Mixed hyperlipidemia E78.2 ; Allergic rhinitis, unspecified allergic rhinitis trigger, unspecified rhinitis seasonality J30.9 and Encounter for immunization Z23 [place] [address] 33979- 3145 Jan, [place] [address] 12716- 0986 Jan, [place] [address] 27098- 8141 Dec, [facility] [address] 07005- 5645 Dec, [facility] [id number] [place] [address] 53601 -8400 Dec, Unspecified asthma with (acute) exacerbation J45.901 and Chronic obstructive pulmonary disease with (acute) exacerbation J44.1 [facility] [address] 40087- 0091 Dec, Arthritis of both knees M19.90 and Acute medial meniscus tear, right, initial encounter S83.241A [facility] [address] 07834- 3012 Dec, [facility] [address] [address]- 6827 Dec, [facility] [address], [place] [address]- 3822 Dec, [facility] [address], [place] [address]- 3607 Dec, [facility] [address] [place] [address] 67788- 9603 Dec, History of pneumonia Z87.01 [facility] [address] [place] [address] 64427- 4725 Dec, [facility] [address] [address]- 4823 Dec, [facility] [id number] [place] [address] 31370- 5770 Dec, [facility] [address] [address]- 2216 Dec, [facility] [address] [place] [address] 26680- 4935 Dec, [facility] [address] [address]- 2521 Dec, [facility] [address] [address]- 0617 30 Nov, 2015 Cough R05 and Pneumonia due to infectious organism, unspecified laterality, unspecified part of lung J18.9 [facility] [address] [address]- 5633 Nov, [facility] [address] [address]- 5685 Nov, Type 2 diabetes mellitus with diabetic neuropathy, without long-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 ; Essential hypertension I10 ; Onychia of toe, unspecified laterality L03.039 ; Arthritis of both knees M19.90 ; Dementia without behavioral disturbance, unspecified dementia type F03.90 ; Eye drainage H57.8 ; Chronic obstructive pulmonary disease, unspecified COPD type J44.9 ; Hypoxia R09.02 ; Gastroesophageal reflux disease, esophagitis presence not specified K21.9 ; Anxiety F41.9 ; Encounter for immunization Z23 ; Mixed hyperlipidemia E78.2 and Allergic rhinitis, unspecified allergic rhinitis trigger, unspecified rhinitis seasonality J30.9 [facility] [address] [facility] [id number] [address]- 6690 12 Nov, 2015 IMMUNIZATIONS No Known Immunizations SOCIAL HISTORY Never Assessed REASON FOR VISIT medication PLAN OF CARE VITAL SIGNS MEDICATIONS Medication Instructions Dosage Frequency Start Date End Date Duration Status Fluticasone Propionate 50 MCG/ACT Nasally Once a day 1 spray in each nostril 24h Aug, 30 day(s) Active RESULTS No Results PROCEDURES No Known procedures INSTRUCTIONS MEDICATIONS ADMINISTERED No Known Medications MEDICAL (GENERAL) HISTORY Type Description Date Medical History hypertension Medical History chronic obstructive pulmonary disease (COPD)-wears 2L O2 per MD, uses [place] for home O2 Medical History Arthritis-knees and back Medical History type II diabetes-2008 Medical History depression-Dr. Segura dx in 2014 Medical History anxiety- Dr. 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, tumor under the eye started 2005 Medical History Actinic keratosis Medical History Hiatal hernia Surgical History hernia repair x4-umbilical and right/left lower abdomen 2000 Surgical History hiatal hernia repair 2007 Surgical History cataracts 2009 Surgical History wrist fracture 2003 Surgical History TURP 2003 Surgical History EGD Colonoscopy [facility] 06/06/2016 Hospitalization History TIA, [facility] 2014 Hospitalization History COPD exacerbation--[facility] 12/27/2015 Hospitalization History [facility] - fall 02/2016 Hospitalization History [facility] pneumonia 11/2016 Hospitalization History COPD exacerbation - Dr Hartley Attending 12/2016 Hospitalization History Cough- ED [place] 04/10/2017
[2017-07-01] MEDS ORDERED: NITROGLYCERIN 0.4 MG SL TABS BTL 25'S SL PRN (22:30)
[2017-07-01] MEDS ORDERED: RT-ALBUTEROL/IPRATROPIUM 3 ML (DUONEB) VIAL INH ONE (22:30)
--- OUTSIDE RECORDS SUMMARY | 2017-07-01 22:35 | XMS REPORT ---
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 Active 6280050 Problem 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 Active 463254628 Problem Mixed hyperlipidemia E78.2 Active 597781855 Problem Chronic GERD K21.9 Active 177477671 Problem Chronic pain syndrome G89.4 Active 347906802 Problem Allergic rhinitis, unspecified allergic rhinitis trigger, unspecified rhinitis seasonality J30.9 Active 88039196 Problem Anxiety F41.9 Active 09693396 Problem Osteoarthritis of both knees, unspecified osteoarthritis type M17.0 Active 143757244 Problem Type 2 diabetes mellitus with diabetic neuropathy, without long-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 Active 47317668 ALLERGIES No Information ENCOUNTERS Encounter Location Date Diagnosis [facility] [address] [address] 15 May, 2017 COPD with acute exacerbation J44.1 [facility] [id number] [place] [address] 66441- 4476 14 May, 2017 Type 2 diabetes mellitus with diabetic neuropathy, without long-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 ; COPD with acute exacerbation J44.1 ; Hypoxia R09.02 ; Chronic pain syndrome G89.4 ; Yeast dermatitis B37.2 ; 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 and 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 [facility] [id number] [place] [address] [place] [address] May, [facility] [address], [place] [address] 7836 May, Chronic pain syndrome G89.4 [facility] [address], [place] [address] 2546 May, [facility] [id number] [place] [address] 85318- 4076 May, [facility] [id number] [place] [address] 37480 2546 May, Mixed hyperlipidemia E78.2 [facility] [id number] [place] [address] 06628- 0766 May, Chronic pain syndrome G89.4 [facility] [address] [place] [address] 13214- 6516 May, Anxiety F41.9 and Chronic pain syndrome G89.4 [facility] [address] [address] 2833 Mar, [facility] [id number] [place] [address] 61771- 4688 Mar, [facility] [address], [place] [address]- 6466 Mar, [facility] [address], [place] [address]- 2216 Mar, [facility] [address], [place] [address] 2546 Mar, [facility] [address] [place] [address] 58836- 5786 Mar, Anxiety F41.9 and Chronic pain syndrome G89.4 [facility] [address], [place] [address]- 25[address] Mar, Medicare annual wellness visit, initial [...] Hiatal hernia K44.9 and Actinic keratosis L57.0 [facility] [address] [address]- 6590 Mar, [facility] [address] 07363- 9589 Mar, Chronic pain syndrome G89.4 [facility] [address] 38913- 5681 Feb, [facility] [address] 30987- 1125 Feb, Chronic pain syndrome G89.4 [facility] [address] 23329- 6452 Feb, [facility] [id number] [place] [address] 48466- 9470 Feb, [facility] [address] 58818- 7457 Feb, Anxiety F41.9 [facility] [id number] [place] [address] 84562- 1459 Feb, [facility] [address] 13579- 7064 Feb, Chronic pain syndrome G89.4 [facility] [id number] [place] [address] 37577- 9019 Jan, Essential hypertension I10 [facility] [address] 76584- 5420 Jan, Chronic pain syndrome G89.4 [facility] [id number] [place] [address] 47105- 5457 Jan, [place] [id number] [place] [address] 16738- 5698 Jan, Anxiety F41.9 [place] [facility] [address] 74169- 0274 Jan, Encounter for immunization Z23 and Community acquired pneumonia, unspecified laterality J18.9 [place] [id number] [place] [address] 91772- 8258 Jan, Type 2 diabetes mellitus with diabetic neuropathy, without long-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 [facility] [address] 04744- 9757 Dec, Anxiety F41.9 and Chronic pain syndrome G89.4 [place] [address] 84431- 9224 Dec, Chronic pain syndrome G89.4 and Essential hypertension I10 [place] [address] 08296- 3509 Dec, [place] [id number] [place] [address] 26835- 8881 Dec, Anxiety F41.9 [place] [facility] [id number] [place] [address] 72754- 8263 Dec, [place] [id number] [place] [address] 35959- 7795 Dec, Type 2 diabetes mellitus with diabetic neuropathy, without long-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 ; Lactic acidosis E87.2 ; Chronic obstructive pulmonary disease, unspecified COPD type J44.9 and Encounter for immunization Z23 [place] [id number] [place] [address] 95339- 3345 Dec, Chronic pain syndrome G89.4 [place] [id number], [place] [address] 2542 28 Nov, 2016 [facility] [id number] [place] [address] 51908 2546 Nov, Chronic pain syndrome G89.4 [facility] [address], [place] [address] 2540 Nov, [facility] [id number] [place] [address] 95136 2548 21 Nov, 2016 [facility] [address] [place] [address] 39307 2547 15 Nov, 2016 Anxiety F41.9 [facility] [id number] [place] [address] 10877- 2542 11 Nov, 2016 Anxiety F41.9 [facility] [id number] [place] [address] 21887- 5509 08 Nov, 2016 [facility] [address] [place] [address] 60016- 1053 05 Nov, 2016 [facility] [id number] [place] [address] 46880- 7528 Nov, [facility] [id number] [place] [address] 19762- 9795 Oct, [facility] [address], [place] [address]- 7608 Oct, [facility] [address], [place] [address]- 2540 Oct, [facility] [id number] [place] [address] 84972- 3197 Oct, Essential hypertension I10 and Chronic pain syndrome G89.4 [facility] [address], [place] [address]- 6379 Oct, Anxiety F41.9 [facility] [id number] [place] [address] 88062- 9207 Oct, [facility] [id number] [place] [address] 34639- 6477 Oct, Chronic pain syndrome G89.4 [facility] [id number] [place] [address] 90144 -3430 Oct, Sore throat J02.9 and Acute nasopharyngitis (common cold) J00 [facility] [address] 25672- 4341 Sep, [facility] [id number] [place] [address] 01774- 9432 Sep, COPD exacerbation J44.1 [facility] [id number] [place] [address] 40016- 3877 Sep, Chronic pain syndrome G89.4 [facility] [id number] [place] [address] 83493- 4818 Sep, Essential hypertension I10 [facility] [id number] [place] [address] 76435- 1476 Sep, [facility] [address] 86917- 1744 Sep, [facility] [id number] [place] [address] 76714- 6725 Sep, Anxiety F41.9 [facility] [id number] [place] [address] 45238- 4545 Sep, Chronic pain syndrome G89.4 [facility] [id number] [place] [address] 71622- 4998 Sep, [facility] [id number] [place] [address] 09760- 0340 Aug, Acute seasonal allergic rhinitis, unspecified trigger J30.2 ; Hiatal hernia K44.9 and Chronic pain syndrome G89.4 [facility] [id number] [place] [address] 96189- 9344 Aug, [facility] [address] [place] [address] 87820- 2141 Aug, [facility] [id number] [place] [address] 90084- 8217 Aug, Chronic obstructive pulmonary disease, unspecified COPD type J44.9 [facility] [id number] [place] [address] 63088- 1490 14 Aug, 2016 Anxiety F41.9 [facility] [id number] [place] [address] 08800- 6477 08 Aug, 2016 Chronic pain syndrome G89.4 [facility] [id number] [place] [address] 60517- 0341 07 Aug, 2016 Hiatal hernia K44.9 and Actinic keratosis L57.0 [facility] [id number] [place] [address] 43035- 1410 Aug, [facility] [id number] [place] [address] 82681- 5895 Aug, Anxiety F41.9 [facility] [id number] [place] [address] 73317- 9779 July, [facility] [id number] [place] [address] 00866- 5684 July, Hiatal hernia K44.9 [facility] [id number] [place] [address] 00343- 2946 July, [facility] [id number] [place] [address] 65310- 3261 July, Anxiety F41.9 and Chronic pain syndrome G89.4 [facility] [id number] [place] [address] 65100- 8247 July, [facility] [id number] [place] [address] 46817- 4881 Jun, Chronic pain syndrome G89.4 [facility] [id number] [place] [address] 66164- 8324 Jun, Chronic pain syndrome G89.4 [facility] [id number] [place] [address] 57625- 5190 Jun, [facility] [id number] [place] [address] 84388- 5145 Jun, Anxiety F41.9 [facility] [address] 09550- 8960 Jun, Allergic rhinitis, unspecified allergic rhinitis trigger, unspecified rhinitis seasonality J30.9 [facility] [address] 90568- 8504 Jun, [facility] [address] 50691- 7398 May, Chronic pain syndrome G89.4 [facility] [address] 64846- 3096 May, [facility] [id number] [place] [address] 84628- 9949 May, [place] [id number] [place] [address] 62568- 2511 May, Anxiety F41.9 [facility] [id number] [place] [address] 36673- 7492 May, Type 2 diabetes mellitus with diabetic [...] Anxiety F41.9 and Chronic pain syndrome G89.4 [facility] [id number] [place] [address] 20007- 6914 May, Essential hypertension I10 ; Type 2 diabetes mellitus with diabetic neuropathy, without long-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 ; Mixed hyperlipidemia E78.2 ; Chronic obstructive pulmonary disease, unspecified COPD type J44.9 and Chronic GERD K21.9 [place] [id number] [place] [address] 33629- 1939 May, [place] [id number] [place] [address] 86655- 7729 May, [place] [address] 67897- 0392 May, Type 2 diabetes mellitus with diabetic neuropathy, without long-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 [place] [id number] [place] [address] 45306- 7639 May, Dementia without behavioral disturbance, unspecified dementia type F03.90 [place] [address] 01958- 1681 May, Type 2 diabetes mellitus with diabetic neuropathy, without long-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 ; Essential hypertension I10 ; Mixed hyperlipidemia E78.2 ; Chronic obstructive pulmonary disease, unspecified COPD type J44.9 ; Chronic GERD K21.9 and Osteoarthritis of both knees, unspecified osteoarthritis type M17.0 [place] [id number] [place] [address] 22061- 0909 May, [place] [id number] [place] [address] 76461- 2538 May, [place] [id number] [place] [address] 91425- 4806 May, Anxiety F41.9 and Unspecified symptoms and signs involving cognitive functions and awareness R41.9 [place] [id number] [place] [address] 25416- 5272 May, [place] [id number] [place] [address] 08613- 9310 May, Type 2 diabetes mellitus with diabetic neuropathy, without long-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 ; Anxiety F41.9 and Chronic obstructive pulmonary disease, unspecified COPD type J44.9 [place] [address] 10151- 6933 May, [facility] [address] 33935- 7709 May, [place] [address] 12478- 0446 May, [place] [address] 22365- 8770 May, Chronic obstructive pulmonary disease, unspecified COPD type J44.9 [place] [address] 85954- 4083 Mar, [place] [address] 43821- 6531 Mar, Arthritis of both knees M19.90 [place] [address] 82651- 0581 Mar, Type 2 diabetes mellitus with diabetic neuropathy, without long-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 [place] [id number] [place] [address] 31453- 8197 Mar, [place] [address] 44391- 1971 Mar, Neck pain M54.2 and Weakness generalized R53.1 [place] [address] 74543- 2319 Mar, [place] [address] 62284- 1520 Mar, Cervicalgia M54.2 and Impacted cerumen of both ears H61.23 [place] [address] 06282- 1567 Mar, [place] [address], [place] [address]- 7266 02 Mar, 2016 Type 2 diabetes mellitus with diabetic neuropathy, without long-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 [facility] [address], [place] [address]- 2472 29 Feb, 2016 [facility] [address], [place] [address]- 6249 Feb, Hypoxia R09.02 [facility] [address], [place] [address]- 2455 Feb, [facility] [address] [place] [address] 47068- 5260 Feb, [facility] [address], [place] [address]- 8123 Feb, [facility] [address] [place] [address] 32257- 6141 16 Feb, 2016 Type 2 diabetes mellitus with diabetic neuropathy, without long-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 [facility] [address], [place] [address]- 0670 15 Feb, 2016 Osteoarthritis of both knees, unspecified osteoarthritis type M17.0 [facility] [address], [place] [address]- 9943 14 Feb, 2016 [facility] [address], [place] [address]- 7279 Feb, [facility] [address], [place] [address]- 4438 09 Feb, 2016 [facility] [address], [place] [address]- 1818 15 Jan, 2016 [facility] [address], [place] [address]- 2678 15 Jan, 2016 [facility] [address], [place] [address]- 7617 14 Jan, 2016 [place] [id number] [place] [address] 03339- 1252 Jan, [place] [address] 06524- 3474 Jan, Tinea pedis of both feet B35.3 [place] [address] 66571- 1590 Jan, Type 2 diabetes mellitus with diabetic [...] seasonality J30.9 and Encounter for immunization Z23 [place] [address] 80135- 4072 Jan, [place] [address] 29347- 2681 Jan, [place] [address] 52743- 0199 Dec, [facility] [address] 01111- 5666 Dec, [facility] [id number] [place] [address] 71095 -8841 Dec, Unspecified asthma with (acute) exacerbation J45.901 and Chronic obstructive pulmonary disease with (acute) exacerbation J44.1 [place] [address] 07707- 2591 Dec, Arthritis of both knees M19.90 and Acute medial meniscus tear, right, initial encounter S83.241A [place] [address] 39766- 7777 Dec, [facility] [address], [place] [address]- 5707 Dec, [facility] [address], [place] [address]- 1291 Dec, [facility] [address], [place] [address]- 5018 Dec, [facility] [address] [place] [address] 96365- 4014 Dec, History of pneumonia Z87.01 [facility] [address] [place] [address] 03045- 0493 Dec, [facility] [address], [place] [address]- 4423 Dec, [facility] [id number] [place] [address] 28572- 7698 Dec, [facility] [address], [place] [address]- 9371 Dec, [facility] [address] [place] [address] 78920- 5704 Dec, [facility] [address], [place] [address]- 2959 Dec, [facility] [address], [place] [address]- 0216 30 Nov, 2015 Cough R05 and Pneumonia due to infectious organism, unspecified laterality, unspecified part of lung J18.9 [facility] [address] [address]- 7861 Nov, [facility] [address], [place] [address]- 1089 Nov, Type 2 diabetes mellitus with diabetic [...] allergic rhinitis trigger, unspecified rhinitis seasonality J30.9 [facility] [address] [facility] [id number] [place] [address]- 3462 12 Nov, 2015 IMMUNIZATIONS No Known Immunizations SOCIAL HISTORY Never Assessed REASON FOR VISIT Refill request PLAN OF CARE VITAL SIGNS MEDICATIONS Medication Instructions Dosage Frequency Start Date End Date Duration Status Augmentin 875-125 MG Orally every 12 hrs 1 tablet 12h Aug, 3 days Active RESULTS No Results PROCEDURES No Known procedures INSTRUCTIONS MEDICATIONS ADMINISTERED No Known Medications MEDICAL (GENERAL) HISTORY Type Description Date Medical History hypertension Medical History chronic obstructive pulmonary disease (COPD)-wears 2L O2 per [place], uses [employer] for home O2 Medical History Arthritis-knees and [...] TIA, [facility] 2014 Hospitalization History COPD exacerbation--[facility] 12/27/2015 [facility] History [facility] - [facility] 02/2016 [facility]ization History [facility] pneumonia 11/2016 Hospitalization History COPD exacerbation - Dr Hartley Attending 12/2016 Hospitalization History Cough- [facility] 04/10/2017
--- NOTE | 2017-07-01 22:37 | ED Chest Pain ---
General Stated Complaint: CHEST PAIN Source: patient, old records, caregiver Exam Limitations: no limitations History of Present Illness Date Seen by Provider: Jul 01, 2017 Time Seen by Provider: 22:27 Initial Comments Patient presents to ER by private conveyance with his caregiver with a chief complaint that 2 days ago he started having episodic chest pain in the middle of his chest that radiated around to the right side of his chest. Is never had pain like this before and he does not have a history of coronary artery disease that he is aware of. He feels that he's had a little more swelling around both of his ankles and usual. He's having some mild to moderate shortness of breath although he is using his home dose of 3 L of oxygen per nasal cannula. He has had a sometimes productive cough recently. He quit smoking 15 years ago. He does have high blood pressure, hypercholesterolemia but no thyroid disorder. He is on oral anti-hyperglycemics for diabetes. He did not experience any sweats, nausea or chills with his pain. Allergies and Home Medications Allergies Coded Allergies: aspirin (Unverified Allergy, Unknown, 05/20/14) codeine (Verified Allergy, Unknown, 04/07/06) hydrocodone (Unverified Allergy, Unknown, 10/16/15) Uncoded Allergies: SSRI (Allergy, Unknown, 05/20/14) TCA (Allergy, Unknown, 05/20/14) Home Medications Amlodipine Besylate 10 Mg Tablet, 10 MG PO HS, (Reported) Atorvastatin Calcium 40 Mg Tablet, 40 MG PO HS, (Reported) Azithromycin 250 Mg Tablet, 250 MG PO DAILY@1700 Prescribed by: DARIN PINEDO on 01/27/17 1128 Benazepril HCl 20 Mg Tablet, 20 MG PO HS, (Reported) Cefpodoxime Proxetil 200 Mg Tablet, 200 MG PO BID Prescribed by: DARIN PINEDO on 01/27/17 1131 Chlorphen/Dm/Acetaminophen/GG 1 Each Tb.cp.seq, 1-2 TAB PO Q6H PRN for DRAINAGE, (Reported) Clonazepam 1 Mg Tablet, 1 MG PO TID, (Reported) Doxazosin Mesylate 4 Mg Tablet, 4 MG PO DAILY, (Reported) Fluticasone Propionate 16 Gm [place].susp, 2 SPRAYS NS DAILY, (Reported) Glipizide 5 Mg Tablet, 5 MG PO BID, (Reported) Glycerin/Propylene Glycol 15 Ml Drops, 1 DROP OU QID PRN for DRY EYES, (Reported ) Guaifenesin/Dextromethorphan 5 Ml Syrup, 5 ML PO TID, (Reported) Ipratropium/Albuterol Sulfate 3 Ml Ampul.neb, 3 ML IH TID, (Reported) Levocetirizine Dihydrochloride 5 Mg Tablet, 5 MG PO HS, (Reported) Metformin HCl 500 Mg Tablet, 250 MG PO BID, (Reported) TAKES 1/2 OF A (500 MG) TABLET Mineral Oil/Petrolatum,White 3.5 Gm Oint...g., OU BID, (Reported) Mirabegron 25 Mg Tab.er.24h, 25 MG PO DAILY, (Reported) Montelukast Sodium 10 Mg Tablet, 10 MG PO HS, (Reported) Multivitamin 1 Each Tablet, 1 TAB PO DAILY, (Reported) Ondansetron 4 Mg Tab.rapdis, 4 MG PO Q4H PRN for NAUSEA/VOMITING-1ST LINE Prescribed by: BOZENA WERNER on 05/02/171839 Oseltamivir Phosphate 75 Mg Cap, 75 MG PO BID Prescribed by: BOZENA WERNER on 05/02/171839 Pantoprazole Sodium 40 Mg Tablet.dr, 40 MG PO DAILY, (Reported) Prednisone 20 Mg Tab, 20 MG PO DAILY Prescribed by: DOMINGA TOLEDO on 04/10/17 1221 Pregabalin 100 Mg Capsule, 100 MG PO TID, (Reported) Ranitidine HCl 150 Mg Tablet, 150 MG PO HS, (Reported) Rivastigmine 1 Each Patch.td24, 4.6 MG TD DAILY, (Reported) Sucralfate 1 Gm Tablet, 1 GM PO QID, (Reported) Tramadol HCl 50 Mg Tablet, 50 MG PO BID PRN for PAIN-MODERATE, (Reported) Triamcinolone Acet 15 Gm Cr, TP BID PRN for BED SORES, (Reported) Vilazodone Hydrochloride 10 Mg Tablet, 10 MG PO HS, (Reported) Patient Home Medication List Home Medication List Reviewed: Yes Review of Systems Constitutional: No chills, No diaphoresis, No fever, No malaise EENTM: No Blurred Vision, No Double Vision Respiratory: Cough, Denies Orthopnea, Shortness of Air, SOA With Exertion, Denies Wheezing Cardiovascular: Chest Pain, Edema, Denies Palpitations, Denies Syncope Gastrointestinal: Denies Constipated, Denies Diarrhea, Denies Nausea, Denies Vomiting Genitourinary: Denies Burning, Denies Discharge Skin: No dryness, No pruritus, No rash Psychiatric/Neurological: Denies Headache, Denies Numbness, Denies Paresthesia Past Ttcyjcl-Petfuj-Tadraj Hx Patient Social History Alcohol Use: Denies Use Recreational Drug Use: No Smoking Status: Former Smoker Type Used: Cigarettes Former Smoker, Quit: Mar 31, 1966 2nd Hand Smoke Exposure: No Recent Foreign Travel: No Contact w/Someone Who Travel: No Recent Hopitalizations: No Immunizations Up To Date Tetanus Booster (TDap): Unknown Date of Pneumonia Vaccine: Mar 31, 2016 Date of Influenza Vaccine: Dec 19, 2016 Seasonal Allergies Seasonal Allergies: Yes Surgeries History of Surgeries: Yes (RIGHT EYELID BASAL CELL CANCER) Surgeries: Abdominal, Adenoidectomy, Eye Surgery, Prostatectomy, Tonsillectomy Respiratory History of Respiratory Disorde: Yes (O2 DEPENDENT AT 3L/NC CONTINUOUSLY) Respiratory Disorders: Pneumonia, Chronic Bronchitis, COPD, Emphysema Currently Using CPAP: No Currently Using BIPAP: No Cardiovascular History of Cardiac Disorders: Yes Cardiac Disorders: Chronic Edema/Swelling, High Cholesterol, Hypertension Neurological History of Neurological Disord: Yes Neurological Disorders: Dementia Reproductive System Hx Reproductive Disorders: No Sexually Transmitted Disease: No HIV/AIDS: No Genitourinary History of Genitourinary Disor: Yes (PROSTATE CANCER > 10 YEARS AGO) Genitourinary Disorders: Prostate Problems, Kidney Stones Gastrointestinal History of Gastrointestinal Di: Yes Gastrointestinal Disorders: Abdominal Hernia, Gastroesophageal Reflux, Polyps, Hiatal Hernia Musculoskeletal History of Musculoskeletal Dis: Yes Musculoskeletal Disorders: Arthritis Endocrine History of Endocrine Disorders: Yes Endocrine Disorders: Diabetes, Non-Insulin dep HEENT History of HEENT Disorders: Yes HEENT Disorders: Cataract Loss of Vision: Right Hearing Impairment: Denies Cancer History of Cancer: Yes (BASAL CELL CANCER RIGHT EYELID; PROSTATE SURGERY, NO CHEMO OR RADIATION) Cancer: Prostate, Skin Did You Recieve Any Treatments: Yes Type of Tx Receive: Surgical Intervention Psychosocial History of Psychiatric Problem: Yes Behavioral Health Disorders: Anxiety, Depression Integumentary History of Skin or Integumenta: Yes (SKIN CANCER) Blood Transfusions History of Blood Disorders: No Adverse Reaction to a Blood Tr: No Family Medical History Significant Family History: Lung Disease Family Medial History: FH: breast cancer G8 SISTER Physical Exam Vital Signs Vital Signs - First Documented Capillary Refill : General Appearance: WD/WN, Mild Distress HEENT: PERRL/EOMI, Normal ENT Inspection, Pharynx Normal Neck: Full Range of Motion, Normal Inspection, Non Tender, Supple Respiratory: Chest Non Tender, Lungs Clear, Normal Breath Sounds, No Accessory Muscle Use, No Respiratory Distress Cardiovascular: Regular Rate, Rhythm, No Edema, No Murmur, Normal Peripheral Pulses Gastrointestinal: Normal Bowel Sounds, Non Tender, Soft Extremity: Normal Capillary Refill, Non Tender, No Calf Tenderness, Pedal Edema (1+) Neurologic/Psychiatric: Alert, Oriented x3, Normal Mood/Affect Skin: Normal Color, Warm/Dry Progress/Results/Core Measures Results/Orders Lab Results Laboratory Tests Test 07/01/17 22:40 Range/Units White Blood Count 7.7 4.3-11.0 10^3/uL Red Blood Count 4.34 L 4.35-5.85 10^6/uL Hemoglobin 12.7 L 13.3-17.7 G/DL Hematocrit 38 L 40-54 % Mean Corpuscular Volume 88 80-99 FL Mean Corpuscular Hemoglobin 29 25-34 PG Mean Corpuscular Hemoglobin Concent 33 32-36 G/DL Red Cell Distribution Width 13.4 10.0-14.5 % Platelet Count 209 130-400 10^3/uL Mean Platelet Volume 9.5 7.4-10.4 FL Neutrophils (%) (Auto) 59 42-75 % Lymphocytes (%) (Auto) 26 12-44 % Monocytes (%) (Auto) 13 H 0-12 % Eosinophils (%) (Auto) 2 0-10 % Basophils (%) (Auto) 0 0-10 % Neutrophils # (Auto) 4.5 1.8-7.8 X 10^3 Lymphocytes # (Auto) 2.0 1.0-4.0 X 10^3 Monocytes # (Auto) 1.0 0.0-1.0 X 10^3 Eosinophils # (Auto) 0.2 0.0-0.3 10^3/uL Basophils # (Auto) 0.0 0.0-0.1 10^3/uL Prothrombin Time 13.3 12.2-14.7 SEC INR Comment 1.0 0.8-1.4 Activated Partial Thromboplast Time 31 24-35 SEC Sodium Level 140 135-145 MMOL/L Potassium Level 3.9 3.6-5.0 MMOL/L Chloride Level 106 98-107 MMOL/L Carbon Dioxide Level 21 21-32 MMOL/L Anion Gap 13 5-14 MMOL/L Blood Urea Nitrogen 10 7-18 MG/DL Creatinine 0.82 0.60-1.30 MG/DL Estimat Glomerular Filtration Rate > 60 BUN/Creatinine Ratio 12 Glucose Level 119 H 70-105 MG/DL Calcium Level 9.6 8.5-10.1 MG/DL Magnesium Level 2.1 1.8-2.4 MG/DL Total Bilirubin 0.3 0.1-1.0 MG/DL Aspartate Amino Transf (AST/SGOT) 44 H 5-34 U/L Alanine Aminotransferase (ALT/SGPT) 42 0-55 U/L Alkaline Phosphatase 84 40-136 U/L Myoglobin 78.2 10.0-92.0 NG/ML Troponin I < 0.30 <0.30 NG/ML B-Type Natriuretic Peptide < 10.0 <100.0 PG/ML Total Protein 7.1 6.4-8.2 GM/DL Albumin 4.3 3.2-4.5 GM/DL Lipase 30 8-78 U/L My Orders Orders - ASHANTI,ALBA J Cbc With Automated Diff (07/01/17 22:30) Magnesium (07/01/17 22:30) Chest 1 View, Ap/Pa Only (07/01/17 22:30) Ekg Tracing (07/01/17 22:30) Cardiac Profile 1 (07/01/17 22:30) Comprehensive Metabolic Panel (07/01/17 22:30) Myoglobin Serum (07/01/17 22:30) Protime With Inr (07/01/17 22:30) Partial Thromboplastin Time (07/01/17 22:30) O2 (07/01/17 22:30) Monitor-Rhythm Ecg Trace Only (07/01/17 22:30) Lipid Panel (07/02/17 06:00) Nitroglycerin 0.4 Mg Btl 25's (Nitrostat (07/01/17 22:30) Saline Lock/Iv-Start (07/01/17 22:30) Lipase (07/01/17 22:30) BNP (07/01/17 22:30) Albuterol/Ipra Inhalation Soln (Duoneb I (07/01/17 22:30) Svn Sm Volume Nebulizer Rt-Rfs (07/01/17 22:30) Medications Given in ED Current Medications Medications Dose Ordered Sig/Bernice Route Start Time Stop Time Status Last Admin Dose Admin Albuterol/ Ipratropium 3 ml ONCE ONCE INH 07/01/17 22:30 07/01/17 22:32 DC 07/01/17 23:01 3 ML Vital Signs/I&O Vital Sign - Last 12Hours 07/01/17 07/01/17 07/01/17 22:25 22:25 22:25 Temp 97.1 Pulse 95 Resp 20 B/P (MAP) 137/79 (98) Pulse Ox 95 93 O2 Delivery Nasal Cannula Nasal Cannula Nasal Cannula O2 Flow Rate 2.00 3.00 3.0 Progress Note : Time: 22:40 Progress Note The patient has a documented allergy to aspirin so we will just use nitroglycerin at this time. We'll get a chest x-ray and a breathing treatment see if that opens up his lung sounds any although I don't hear any wheezing so just diminished breath sounds. He has not coughed since he's been here. Initial EKG does not reveal any STEMI. ED ACS: 14 pts low risk recommends a delta troponin rule out and follow-up in the clinic. Echocardiogram May 2017 Dr. Daniel demonstrates normal left cavity size with moderately increased wall thickness. Systolic function is normal with an EF of 60-65%. Grade 1 diastolic dysfunction. ECG Initial ECG Impression Date: Jul 01, 2017 Initial ECG Impression Time: 22:25 Initial ECG Rate: 86 Initial ECG Rhythm: Normal Sinus Initial ECG Intervals: SC (212) Initial ECG Impression: Normal Initial ECG Comparisson: Unchanged Comment No ST-T wave elevation or depression. Diagnostic Imaging Diagonstic Imaging: Xray Plain Films/CT/US/NM/MRI: chest (1v) Comments No acute cardiopulmonary processes noted. Reviewed: Reviewed by Me Consults Consults : Consulting Physician: CARLOS DANIEL MD FACP FACC [facility] Consults Notes discussed with the pain is reproducible to palpation and that the workup so far is negative for either COPD exacerbation or cardiac origin of this pain Is intermittent. His last stress test was in 2013 and his echocardiogram was just done a month ago. He feels that the patient is now pain-free be reasonable to have him just call for an appointment tomorrow morning and get him in the next 1 -2 days. Departure Impression Impression: Primary Impression: Chest pain Qualified Codes: R07.89 - Other chest pain Disposition: HOME, SELF-CARE Condition: Improved (ERASED) Departure-Patient Inst. Decision time for Depature: 23:59 Referrals: SALMA RAMIREZ DO (PCP) Primary Care Physician ASIM LINARES (Family) Primary Care Physician Patient Instructions: Chest Pain That Is Not Caused by the Heart (DC) Add. Discharge Instructions: If your pain comes back you can use Tylenol 1000 mg every 8 hours or ibuprofen 600 mg every 8 hours as well as a heating pad your chest. Tomorrow morning call Dr. Daniel's clinic at [phone] and request an appointment to follow-up for your ER visit. Copy Copies To 1: SALMA RAMIREZ DO; CARLOS DANIEL MD FACP [facility] ALBA BURRELL Jul 01, 2017 22:37
--- OUTSIDE RECORDS SUMMARY | 2017-07-01 22:37 | XMS REPORT ---
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 Active 6361036 Problem 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 Active 856376576 Problem Mixed hyperlipidemia E78.2 Active 361372424 Problem Chronic GERD K21.9 Active 325303766 Problem Chronic pain syndrome G89.4 Active 143487222 Problem Allergic rhinitis, unspecified allergic rhinitis trigger, unspecified rhinitis seasonality J30.9 Active 50734545 Problem Anxiety F41.9 Active 22977617 Problem Osteoarthritis of both knees, unspecified osteoarthritis type M17.0 Active 024273618 Problem Type 2 diabetes mellitus with diabetic neuropathy, without long-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 Active 42891795 ALLERGIES No Information ENCOUNTERS Encounter Location Date Diagnosis [place] [id number] [address] 15 May, 2017 COPD with acute exacerbation J44.1 [facility], [place] [address] [place] [id number] [place] [address] 93322- 1061 14 May, 2017 Type 2 diabetes mellitus with diabetic neuropathy, without long-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 ; COPD with acute exacerbation J44.1 ; Hypoxia R09.02 ; Chronic pain syndrome G89.4 ; Yeast dermatitis B37.2 ; 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 and 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 [facility], [place] [address] [place] [id number] [place] [address] [place] [address] 7472 May, [facility], [place] [address], [place] [address] 8796 May, Chronic pain syndrome G89.4 [facility], [place] [address], [place] [address] 2546 May, [facility], [place] [id number] [place] [address] 26626- 1946 May, [facility], [place] [address] [id number] [place] [address] 39926 2546 May, Mixed hyperlipidemia E78.2 [facility], [place] [address] [place] [id number] [place] [address] 92926- 2786 May, Chronic pain syndrome G89.4 [facility], [place] [id number] [place] [address] 02436- 2226 May, Anxiety F41.9 and Chronic pain syndrome G89.4 [facility], [place] [address] [address] 2457 Mar, [facility], [place] [id number] [place] [address] 97774- 0648 Mar, [facility], [place] [address], [place] [address]- 3050 Mar, [facility], [place] [address], [place] [address]- 9046 Mar, [facility], [place] [address], [place] [address] 2546 Mar, [facility], [place] [address] [place] [address] 17324- 2156 Mar, Anxiety F41.9 and Chronic pain syndrome G89.4 [facility], [place] [address], [place] [address]- 2546 Mar, Medicare annual wellness visit, initial [...] Hiatal hernia K44.9 and Actinic keratosis L57.0 [facility], [place] [address] 85605- 7763 Mar, [facility], [place] [address] 37158- 3344 Mar, Chronic pain syndrome G89.4 [facility], [place] [address] 49182- 7109 Feb, [facility], [place] [address] 50678- 6535 Feb, Chronic pain syndrome G89.4 [facility], [place] [address] 47263- 2629 Feb, [facility], [place] [address] [place] [id number] [place] [address] 69954- 9522 Feb, [facility], [place] [address] 11080- 1221 Feb, Anxiety F41.9 [facility], [place] [address] [id number] [place] [address] 25970- 3698 Feb, [facility], [place] [address] 05196- 6156 Feb, Chronic pain syndrome G89.4 [facility], [place] [address] [place] [id number] [place] [address] 28375- 5644 Jan, Essential hypertension I10 [facility], [place] [address] 65497- 2440 Jan, Chronic pain syndrome G89.4 [facility], [place] [address] [place] [id number] [place] [address] 50550- 9550 Jan, [place] [address] [place] [id number] [place] [address] 39497- 4786 Jan, Anxiety F41.9 [place] [address] 27933- 0408 Jan, Encounter for immunization Z23 and Community acquired pneumonia, unspecified laterality J18.9 [place] [address] [place] [id number] [place] [address] 98415- 0606 Jan, Type 2 diabetes mellitus with diabetic neuropathy, without long-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 [place] [address] 70738- 2109 Dec, Anxiety F41.9 and Chronic pain syndrome G89.4 [place] [address] 50522- 8319 Dec, Chronic pain syndrome G89.4 and Essential hypertension I10 [place] [address] 02841- 6585 Dec, [place] [address] [place] [id number] [place] [address] 37339- 5057 Dec, Anxiety F41.9 [place] [address] [place] [id number] [place] [address] 04081- 4091 Dec, [place] [address] [place] [id number] [place] [address] 59206- 1187 Dec, Type 2 diabetes mellitus with diabetic neuropathy, without long-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 ; Lactic acidosis E87.2 ; Chronic obstructive pulmonary disease, unspecified COPD type J44.9 and Encounter for immunization Z23 [place] [address] [place] [id number] [place] [address] 36711- 7211 Dec, Chronic pain syndrome G89.4 [place] [address], [place] [address] 2542 28 Nov, 2016 [facility], [place] [address] [place] [place] [id number] [place] [address] 63542 2546 Nov, Chronic pain syndrome G89.4 [facility], [place] [address], [place] [address] 2544 Nov, [facility], [place] [address] [place] [place] [id number] [place] [address] 56313 2542 21 Nov, 2016 [facility], [place] [address] [place] [address] 18919 2547 15 Nov, 2016 Anxiety F41.9 [facility], [place] [address] [place] [place] [id number] [place] [address] 56901- 2547 11 Nov, 2016 Anxiety F41.9 [facility], [place] [address] [place] [id number] [place] [address] 94029- 6339 08 Nov, 2016 [facility], [place] [address] [place] [address] 93766- 1303 05 Nov, 2016 [facility], [place] [address] [place] [id number] [place] [address] 74317- 8403 Nov, [facility], [place] [id number] [place] [address] 00233- 4581 Oct, [facility], [place] [address], [place] [address]- 3001 Oct, [facility], [place] [address], [place] [address]- 2543 Oct, [facility], [place] [address] [place] [address] 18056- 2870 Oct, Essential hypertension I10 and Chronic pain syndrome G89.4 [facility], [place] [address], [place] [address]- 3238 Oct, Anxiety F41.9 [facility], [place] [address] [place] [address] 87974- 3411 Oct, [facility], [place] [address] [place] [place] [id number] [place] [address] 38496- 1656 Oct, Chronic pain syndrome G89.4 [facility] [address] [place] [id number] [place] [address] 25921 -4630 Oct, Sore throat J02.9 and Acute nasopharyngitis (common cold) J00 [facility], [place] [address] 57192- 6550 Sep, [facility], [place] [address] [place] [place] [id number] [place] [address] 67696- 3272 Sep, COPD exacerbation J44.1 [facility], [place] [address] [place] [id number] [place] [address] 55584- 9924 Sep, Chronic pain syndrome G89.4 [facility], [place] [address] [id number] [place] [address] 44622- 8746 Sep, Essential hypertension I10 [facility], [place] [address] [id number] [place] [address] 04909- 0869 Sep, [facility], [place] [address] 14489- 0331 Sep, [facility], [place] [address] [id number] [place] [address] 65505- 6503 Sep, Anxiety F41.9 [facility], [place] [address] [place] [id number] [place] [address] 58904- 4671 Sep, Chronic pain syndrome G89.4 [facility], [place] [address] [id number] [place] [address] 05505- 6674 Sep, [facility], [place] [id number] [place] [address] 12817- 8432 Aug, Acute seasonal allergic rhinitis, unspecified trigger J30.2 ; Hiatal hernia K44.9 and Chronic pain syndrome G89.4 [facility], [place] [address] [place] [place] [id number] [place] [address] 05007- 8510 Aug, [facility], [place] [id number] [place] [address] 16040- 7239 Aug, [facility], [place] [address] [place] [id number] [place] [address] 30180- 9899 Aug, Chronic obstructive pulmonary disease, unspecified COPD type J44.9 [facility], [place] [address] [place] [place] [id number] [place] [address] 26354- 3604 14 Aug, 2016 Anxiety F41.9 [facility], [place] [address] [place] [place] [id number] [place] [address] 67085- 4016 08 Aug, 2016 Chronic pain syndrome G89.4 [facility], [place] [address] [id number] [place] [address] 35317- 0532 07 Aug, 2016 Hiatal hernia K44.9 and Actinic keratosis L57.0 [facility], [place] [address] [place] [id number] [place] [address] 95647- 8954 Aug, [facility], [place] [id number] [place] [address] 84988- 7213 Aug, Anxiety F41.9 [facility], [place] [address] [place] [place] [id number] [place] [address] 22840- 4810 July, [facility], [place] [address] [id number] [place] [address] 48769- 1683 July, Hiatal hernia K44.9 [facility], [place] [id number] [place] [address] 19247- 9333 July, [facility], [place] [address] [place] [address] 13345- 9530 July, Anxiety F41.9 and Chronic pain syndrome G89.4 [facility], [place] [address] [place] [address] 17317- 1589 July, [facility], [place] [address] [place] [address] 55678- 7190 Jun, Chronic pain syndrome G89.4 [facility], [place] [address] [id number] [place] [address] 59812- 4426 Jun, Chronic pain syndrome G89.4 [facility], [place] [id number] [place] [address] 85161- 5877 Jun, [facility], [place] [id number] [place] [address] 93970- 5024 Jun, Anxiety F41.9 [facility], [place] [address] 82909- 8707 Jun, Allergic rhinitis, unspecified allergic rhinitis trigger, unspecified rhinitis seasonality J30.9 [facility], [place] [address] 03884- 1992 Jun, [facility], [place] [address] 78281- 5998 May, Chronic pain syndrome G89.4 [facility], [place] [address] 21360- 5882 May, [facility], [place] [address] [place] [id number] [place] [address] 88649- 3070 May, [place] [address] [place] [id number] [place] [address] 56226- 1843 May, Anxiety F41.9 [facility], [place] [address] [place] [id number] [place] [address] 15146- 9416 May, Type 2 diabetes mellitus with diabetic [...] Anxiety F41.9 and Chronic pain syndrome G89.4 [facility], [place] [address] [id number] [place] [address] 15020- 0097 May, Essential hypertension I10 ; Type 2 diabetes mellitus with diabetic neuropathy, without long-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 ; Mixed hyperlipidemia E78.2 ; Chronic obstructive pulmonary disease, unspecified COPD type J44.9 and Chronic GERD K21.9 [place] [address] [place] [id number] [place] [address] 77860- 5346 May, [place] [address] [place] [id number] [place] [address] 74090- 6716 May, [place] [address] 20355- 8992 May, Type 2 diabetes mellitus with diabetic neuropathy, without long-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 [place] [address] [place] [id number] [place] [address] 92945- 7077 May, Dementia without behavioral disturbance, unspecified dementia type F03.90 [place] [address] 27550- 1441 May, Type 2 diabetes mellitus with diabetic neuropathy, without long-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 ; Essential hypertension I10 ; Mixed hyperlipidemia E78.2 ; Chronic obstructive pulmonary disease, unspecified COPD type J44.9 ; Chronic GERD K21.9 and Osteoarthritis of both knees, unspecified osteoarthritis type M17.0 [place] [address] [place] [id number] [place] [address] 94939- 8535 May, [place] [address] [place] [id number] [place] [address] 87180- 1529 May, [place] [address] [place] [id number] [place] [address] 02852- 3021 May, Anxiety F41.9 and Unspecified symptoms and signs involving cognitive functions and awareness R41.9 [place] [address] [place] [id number] [place] [address] 69130- 9662 May, [place] [address] [place] [id number] [place] [address] 75978- 0300 May, Type 2 diabetes mellitus with diabetic neuropathy, without long-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 ; Anxiety F41.9 and Chronic obstructive pulmonary disease, unspecified COPD type J44.9 [place] [address] 17143- 2370 May, [facility], [place] [address] 46915- 6448 May, [place] [address] 62337- 4940 May, [place] [address] 43562- 9779 May, Chronic obstructive pulmonary disease, unspecified COPD type J44.9 [place] [address] 80898- 4591 Mar, [place] [address] 88989- 7407 Mar, Arthritis of both knees M19.90 [place] [address] 59259- 2998 Mar, Type 2 diabetes mellitus with diabetic neuropathy, without long-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 [place] [address] [place] [id number] [place] [address] 13425- 2992 Mar, [place] [address] 57181- 5340 Mar, Neck pain M54.2 and Weakness generalized R53.1 [place] [address] 58904- 0030 Mar, [place] [address] 31572- 7078 Mar, Cervicalgia M54.2 and Impacted cerumen of both ears H61.23 [place] [address] 75274- 8518 Mar, [place] [address], [place] [address]- 2373 02 Mar, 2016 Type 2 diabetes mellitus with diabetic neuropathy, without long-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 [facility], [place] [address], [place] [address]- 7968 29 Feb, 2016 [facility], [place] [address], [place] [address]- 2746 Feb, Hypoxia R09.02 [facility], [place] [address] [address]- 6852 Feb, [facility], [place] [id number] [place] [address] 15843- 5103 Feb, [facility], [place] [address], [place] [address]- 1843 Feb, [facility], [place] [address] [place] [address] 16480- 9391 16 Feb, 2016 Type 2 diabetes mellitus with diabetic neuropathy, without long-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 [facility] [place] [address] [address]- 1903 15 Feb, 2016 Osteoarthritis of both knees, unspecified osteoarthritis type M17.0 [facility], [place] [address], [place] [address]- 9044 14 Feb, 2016 [facility], [place] [address] [address]- 7568 Feb, [facility], [place] [address], [place] [address]- 8519 09 Feb, 2016 [facility], [place] [address], [place] [address]- 5102 15 Jan, 2016 [facility], [place] [address], [place] [address]- 3920 15 Jan, 2016 [facility], [place] [address], [place] [address]- 2380 14 Jan, 2016 [place] [address] [place] [id number] [place] [address] 13576- 4379 Jan, [place] [address] 13766- 8591 Jan, Tinea pedis of both feet B35.3 [place] [address] 74925- 7300 Jan, Type 2 diabetes mellitus with diabetic [...] and Encounter for immunization Z23 [place] [address] 83770- 0983 Jan, [place] [address] 26849- 8263 Jan, [place] [address] 73894- 0970 Dec, [facility], [place] [address] 29258- 6347 Dec, [facility] [id number] [place] [address] 87528 -4317 Dec, Unspecified asthma with (acute) exacerbation J45.901 and Chronic obstructive pulmonary disease with (acute) exacerbation J44.1 [place] [address] 54967- 7931 Dec, Arthritis of both knees M19.90 and Acute medial meniscus tear, right, initial encounter S83.241A [place] [address] 50936- 6241 Dec, [facility] [place] [address] [address]- 0917 Dec, [facility] [place] [address] [address]- 6722 Dec, [facility], [place] [address], [place] [address]- 3506 Dec, [facility], [place] [id number] [place] [address] 80271- 2768 Dec, History of pneumonia Z87.01 [facility], [place] [address] [place] [address] 72000- 4550 Dec, [facility], [place] [address], [place] [address]- 4089 Dec, [facility], [place] [id number] [place] [address] 68518- 4273 Dec, [facility], [place] [address] [address]- 3276 Dec, [facility], [place] [id number] [place] [address] Dec, [facility], [place] [id number] [address] Dec, [facility], [place] [id number] [address] 30 Nov, 2015 Cough R05 and Pneumonia due to infectious organism, unspecified laterality, unspecified part of lung J18.9 [facility], [place] [id number] [address] Nov, [facility], [place] [id number] [address] Nov, Type 2 diabetes mellitus with diabetic [...] allergic rhinitis trigger, unspecified rhinitis seasonality J30.9 [facility], [place] [address] [facility] [id number] [address] 12 Nov, 2015 IMMUNIZATIONS No Known Immunizations SOCIAL HISTORY Never Assessed REASON FOR VISIT Controlled Refill Request PLAN OF CARE VITAL SIGNS MEDICATIONS Unknown [...] History TURP 2003 Surgical History EGD Colonoscopy [facility] 06/06/2016 Hospitalization History TIA, [facility] 2014 Hospitalization History COPD exacerbation--[facility] 12/27/2015 [facility] - [facility] 02/2016 [facility] History [facility] pneumonia 11/2016 Hospitalization History COPD exacerbation - Dr Hartley Attending 12/2016 Hospitalization History Cough- [facility] 04/10/2017
--- OUTSIDE RECORDS SUMMARY | 2017-07-01 22:40 | XMS REPORT ---
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 Active 1599635 Problem 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 Active 839847247 Problem Mixed hyperlipidemia E78.2 Active 112973667 Problem Chronic GERD K21.9 Active 890057601 Problem Chronic pain syndrome G89.4 Active 373298188 Problem Allergic rhinitis, unspecified allergic rhinitis trigger, unspecified rhinitis seasonality J30.9 Active 41345026 Problem Anxiety F41.9 Active 34338683 Problem Osteoarthritis of both knees, unspecified osteoarthritis type M17.0 Active 930896000 Problem Type 2 diabetes mellitus with diabetic neuropathy, without long-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 Active 33096813 ALLERGIES No Information ENCOUNTERS Encounter Location Date Diagnosis [facility] [id number] [address] 15 May, 2017 COPD with acute exacerbation J44.1 [facility] [id number] [place] [address] 10614- 1366 14 May, 2017 Type 2 diabetes mellitus with diabetic neuropathy, without long-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 ; COPD with acute exacerbation J44.1 ; Hypoxia R09.02 ; Chronic pain syndrome G89.4 ; Yeast dermatitis B37.2 ; 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 and 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 [facility] [id number] [place] [address] [place] [address] May, [facility] [address] [address] 6116 May, Chronic pain syndrome G89.4 [facility] [address] [address] 2546 May, [facility] [id number] [place] [address] 60831- 2266 May, [facility] [id number] [place] [address] 99655 2546 May, Mixed hyperlipidemia E78.2 [facility] [id number] [place] [address] 24818- 2496 May, Chronic pain syndrome G89.4 [facility] [address] [place] [address] 69003- 2226 May, Anxiety F41.9 and Chronic pain syndrome G89.4 [facility] [address] [address] 3494 Mar, [facility] [id number] [place] [address] 51428- 5440 Mar, [facility] [address] [address] 2969 Mar, [facility] [id number] [address] 5336 Mar, [facility] [id number] [address] 2546 Mar, [facility] [address] [place] [address] 42083- 4416 Mar, Anxiety F41.9 and Chronic pain syndrome G89.4 [facility] [address] [address]- 2546 Mar, Medicare annual wellness visit, initial [...] keratosis L57.0 [facility] [address] [address]- 8527 Mar, [facility] [address] [address]- 9505 Mar, Chronic pain syndrome G89.4 [facility] [address] [address]14- 1848 Feb, [facility] [address] 09127- 8202 Feb, Chronic pain syndrome G89.4 [facility] [address] 30039- 3330 Feb, [facility] [id number] [place] [address] 33764- 7316 Feb, [facility] [address] 33792- 7884 Feb, Anxiety F41.9 [facility] [id number] [place] [address] 70992- 4104 Feb, [facility] [address] 38287- 6065 Feb, Chronic pain syndrome G89.4 [facility] [id number] [place] [address] 91000- 2462 Jan, Essential hypertension I10 [facility] [address] 827[address]- 7034 Jan, Chronic pain syndrome G89.4 [facility] [id number] [place] [address] 39343- 2344 Jan, [facility] [id number] [place] [address] 41062- 7471 Jan, Anxiety F41.9 [facility] [address] 85150- 0311 Jan, Encounter for immunization Z23 and Community acquired pneumonia, unspecified laterality J18.9 [facility] [id number] [place] [address] 83365- 7517 Jan, Type 2 diabetes mellitus with diabetic neuropathy, without long-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 [facility] [address] 07776- 1153 Dec, Anxiety F41.9 and Chronic pain syndrome G89.4 [facility] [address] 37147- 7950 Dec, Chronic pain syndrome G89.4 and Essential hypertension I10 [place] [address] 20224- 1233 Dec, [facility] [id number] [place] [address] 20203- 0670 Dec, Anxiety F41.9 [facility] [id number] [place] [address] 60934- 8533 Dec, [facility] [id number] [place] [address] 37928- 9974 Dec, Type 2 diabetes mellitus with diabetic neuropathy, without long-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 ; Lactic acidosis E87.2 ; Chronic obstructive pulmonary disease, unspecified COPD type J44.9 and Encounter for immunization Z23 [facility] [id number] [place] [address] 52116- 6138 Dec, Chronic pain syndrome G89.4 [place] [facility] [address] [address] 2544 28 Nov, 2016 [facility] [id number] [place] [address] 14956 2546 Nov, Chronic pain syndrome G89.4 [facility] [address] [address] 2549 Nov, [facility] [id number] [place] [address] 01439 2544 21 Nov, 2016 [facility] [address] [place] [address] 19865 2542 15 Nov, 2016 Anxiety F41.9 [facility] [id number] [place] [address] 71224- 2547 11 Nov, 2016 Anxiety F41.9 [facility] [id number] [place] [address] 87880- 2691 08 Nov, 2016 [facility] [address] [place] [address] 67068- 1593 05 Nov, 2016 [facility] [id number] [place] [address] 55118- 6531 Nov, [facility] [address] [place] [address] 29934- 3688 Oct, [facility] [address] [address]- 2923 Oct, [facility] [address] [address]- 2547 Oct, [facility] [address] [place] [address] 48285- 4441 Oct, Essential hypertension I10 and Chronic pain syndrome G89.4 [facility] [address] [address]- 0812 Oct, Anxiety F41.9 [facility] [address] [place] [address] 98672- 0684 Oct, [facility] [id number] [place] [address] 75415- 9924 Oct, Chronic pain syndrome G89.4 [facility] [id number] [place] [address] 38991 -3398 Oct, Sore throat J02.9 and Acute nasopharyngitis (common cold) J00 [facility] [address] 51976- 6303 Sep, [facility] [id number] [place] [address] 55586- 3293 Sep, COPD exacerbation J44.1 [facility] [id number] [place] [address] 38998- 2391 Sep, Chronic pain syndrome G89.4 [facility] [id number] [place] [address] 35027- 7772 Sep, Essential hypertension I10 [facility] [id number] [place] [address] 21282- 8721 Sep, [facility] [address] 40244- 5462 Sep, [facility] [id number] [place] [address] 80055- 1801 Sep, Anxiety F41.9 [facility] [id number] [place] [address] 11118- 1675 Sep, Chronic pain syndrome G89.4 [facility] [id number] [place] [address] 90748- 9753 Sep, [facility] [id number] [place] [address] 73454- 4090 Aug, Acute seasonal allergic rhinitis, unspecified trigger J30.2 ; Hiatal hernia K44.9 and Chronic pain syndrome G89.4 [facility] [id number] [place] [address] 21362- 6480 Aug, [facility] [address] [place] [address] 31877- 4657 Aug, [facility] [id number] [place] [address] 90194- 0086 Aug, Chronic obstructive pulmonary disease, unspecified COPD type J44.9 [facility] [id number] [place] [address] 83328- 8333 14 Aug, 2016 Anxiety F41.9 [facility] [id number] [place] [address] 71062- 6599 08 Aug, 2016 Chronic pain syndrome G89.4 [facility] [id number] [place] [address] 76251- 4577 07 Aug, 2016 Hiatal hernia K44.9 and Actinic keratosis L57.0 [facility] [id number] [place] [address] 99115- 9979 Aug, [facility] [id number] [place] [address] 36073- 6238 Aug, Anxiety F41.9 [facility] [id number] [place] [address] 86262- 1726 July, [facility] [id number] [place] [address] 33533- 1355 July, Hiatal hernia K44.9 [facility] [id number] [place] [address] 98373- 1338 July, [facility] [address] [place] [address] 41620- 1123 July, Anxiety F41.9 and Chronic pain syndrome G89.4 [facility] [address] [place] [address] 96095- 6239 July, [facility] [address] [place] [address] 26682- 8434 Jun, Chronic pain syndrome G89.4 [facility] [id number] [place] [address] 25444- 2192 Jun, Chronic pain syndrome G89.4 [facility] [id number] [place] [address] 96621- 5552 Jun, [facility] [id number] [place] [address] 89448- 9657 Jun, Anxiety F41.9 [facility] [address] 77423- 6694 Jun, Allergic rhinitis, unspecified allergic rhinitis trigger, unspecified rhinitis seasonality J30.9 [facility] [address] 31449- 0462 Jun, [facility] [address] 41032- 0722 May, Chronic pain syndrome G89.4 [facility] [address] 70830- 1001 May, [facility] [id number] [place] [address] 16372- 9463 May, [facility] [id number] [place] [address] 40738- 1531 May, Anxiety F41.9 [facility] [id number] [place] [address] 92196- 5413 May, Type 2 diabetes mellitus with diabetic [...] syndrome G89.4 [facility] [id number] [place] [address] 01580- 3125 May, Essential hypertension I10 ; Type 2 diabetes mellitus with diabetic neuropathy, without long-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 ; Mixed hyperlipidemia E78.2 ; Chronic obstructive pulmonary disease, unspecified COPD type J44.9 and Chronic GERD K21.9 [place] [id number] [place] [address] 35625- 8639 May, [place] [facility] [id number] [place] [address] 14756- 9462 May, [place] [address] 95741- 0426 May, Type 2 diabetes mellitus with diabetic neuropathy, without long-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 [place] [id number] [place] [address] 62803- 2247 May, Dementia without behavioral disturbance, unspecified dementia type F03.90 [place] [facility] [address] 13722- 2612 May, Type 2 diabetes mellitus with diabetic neuropathy, without long-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 ; Essential hypertension I10 ; Mixed hyperlipidemia E78.2 ; Chronic obstructive pulmonary disease, unspecified COPD type J44.9 ; Chronic GERD K21.9 and Osteoarthritis of both knees, unspecified osteoarthritis type M17.0 [place] [id number] [place] [address] 58409- 7584 May, [place] [id number] [place] [address] 20657- 2707 May, [facility] [id number] [place] [address] 93748- 3465 May, Anxiety F41.9 and Unspecified symptoms and signs involving cognitive functions and awareness R41.9 [facility] [id number] [place] [address] 86865- 5416 May, [place] [id number] [place] [address] 15958- 6584 May, Type 2 diabetes mellitus with diabetic neuropathy, without long-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 ; Anxiety F41.9 and Chronic obstructive pulmonary disease, unspecified COPD type J44.9 [place] [address] 96217- 9317 May, [facility] [address] 61241- 6199 May, [place] [address] 02911- 6578 May, [place] [address] 39324- 9225 May, Chronic obstructive pulmonary disease, unspecified COPD type J44.9 [place] [address] 25998- 7850 Mar, [place] [address] 61348- 7700 Mar, Arthritis of both knees M19.90 [place] [address] 04647- 7109 Mar, Type 2 diabetes mellitus with diabetic neuropathy, without long-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 [facility] [id number] [place] [address] 76764- 2318 Mar, [facility] [facility] [address] 70804- 4114 Mar, Neck pain M54.2 and Weakness generalized R53.1 [place] [facility] [address] 51797- 7436 Mar, [facility] [address] 53902- 4178 Mar, Cervicalgia M54.2 and Impacted cerumen of both ears H61.23 [place] [address] 99548- 8440 Mar, [facility] [address] [address]- 5961 02 Mar, 2016 Type 2 diabetes mellitus with diabetic neuropathy, without long-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 [facility] [address] [address]- 0064 29 Feb, 2016 [facility] [address] [address]- 3981 Feb, Hypoxia R09.02 [facility] [address] [address]- 6705 Feb, [facility] [address] [place] [address] 94669- 7470 Feb, [facility] [address] [address]- 8183 Feb, [facility] [address] [place] [address] 83378- 4247 16 Feb, 2016 Type 2 diabetes mellitus with diabetic neuropathy, without long-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 [facility] [address] [address]- 4402 15 Feb, 2016 Osteoarthritis of both knees, unspecified osteoarthritis type M17.0 [facility] [address] [address]- 2978 14 Feb, 2016 [facility] [address] [address]- 0555 Feb, [facility] [address] [address]- 4028 09 Feb, 2016 [facility] [address] [address]- 4268 15 Jan, 2016 [facility] [address] [address]- 1415 15 Jan, 2016 [facility] [address] [address]- 8146 14 Jan, 2016 [place] [id number] [place] [address] 88308- 4244 Jan, [facility] [address] 25657- 6510 Jan, Tinea pedis of both feet B35.3 [place] [facility] [address] 25092- 0239 Jan, Type 2 diabetes mellitus with diabetic [...] seasonality J30.9 and Encounter for immunization Z23 [place] [address] 29415- 4746 Jan, [place] [address] 71846- 0050 Jan, [place] [facility] [address] 59696- 8532 Dec, [facility] [address] 99874- 9111 Dec, [facility] [id number] [place] [address] 47242 -0803 Dec, Unspecified asthma with (acute) exacerbation J45.901 and Chronic obstructive pulmonary disease with (acute) exacerbation J44.1 [place] [address] 14424- 0933 Dec, Arthritis of both knees M19.90 and Acute medial meniscus tear, right, initial encounter S83.241A [place] [address] 84980- 6908 Dec, [facility] [address] [address]- 6907 Dec, [facility] [address] [address]- 2965 Dec, [facility] [address] [address]- 3551 Dec, [facility] [address] [place] [address] 82564- 0483 Dec, History of pneumonia Z87.01 [facility] [address] [place] [address] 91181- 2404 Dec, [facility] [address] [address]- 7229 Dec, [facility] [id number] [place] [address] 15577- 8365 Dec, [facility] [address] [address]- 6323 Dec, [facility] [address] [place] [address] 30928- 5783 Dec, [facility] [address] [address]- 7747 Dec, [facility] [address] [address]- 0699 30 Nov, 2015 Cough R05 and Pneumonia due to infectious organism, unspecified laterality, unspecified part of lung J18.9 [facility] [address] [address]- 7942 Nov, [facility] [address] [address]- 0610 Nov, Type 2 diabetes mellitus with diabetic [...] seasonality J30.9 [facility] [address] [facility] [id number] [address]- 0452 12 Nov, 2015 IMMUNIZATIONS No Known Immunizations SOCIAL HISTORY Never Assessed REASON FOR VISIT Refill request PLAN OF CARE VITAL SIGNS MEDICATIONS Medication Instructions Dosage Frequency Start Date End Date Duration Status Fluticasone Furoate 27.5 MCG/SPRAY Nasally Once a day 1 puff in each nostril 24h Aug, 30 day(s) Active Montelukast Sodium 10 mg Orally Once a day 1 tablet in the evening 24h 30 days Active RESULTS No Results PROCEDURES No Known procedures INSTRUCTIONS MEDICATIONS ADMINISTERED No Known Medications MEDICAL (GENERAL) HISTORY Type Description Date Medical History hypertension Medical History chronic obstructive pulmonary disease (COPD)-wears 2L O2 per [place], uses [place] for home O2 Medical History Arthritis-knees and [...] History TURP 2003 Surgical History EGD Colonoscopy [facility] 06/06/2016 Hospitalization History TIA, [address] [facility] 2014 Hospitalization History COPD exacerbation--[facility] 12/27/2015 Hospitalization History [facility] - fall 02/2016 Hospitalization History [facility] pneumonia 11/2016 Hospitalization History COPD exacerbation - Dr Hartley Attending 12/2016 Hospitalization History Cough- [facility] [place] 04/10/2017
[2017-07-01 22:53] LABS: BASOPHILS % (AUTO) 0 % (0-10); EOSINOPHILS # (AUTO) 0.2 10^3/uL (0.0-0.3); EOSINOPHILS % (AUTO) 2 % (0-10); HEMATOCRIT 38 % (40-54); HEMOGLOBIN 12.7 G/DL (13.3-17.7); LYMPHOCYTES % (AUTO) 26 % (12-44); MEAN CORPUSCULAR HEMOGLOBIN 29 PG (25-34); MEAN CORPUSCULAR HGB CONC 33 G/DL (32-36); MEAN CORPUSCULAR VOLUME 88 FL (80-99); MEAN PLATELET VOLUME 9.5 FL (7.4-10.4); MONOCYTES % (AUTO) 13 % (0-12); NEUTROPHILS # (AUTO) 4.5 X 10^3 (1.8-7.8); NEUTROPHILS % (AUTO) 59 % (42-75); PLATELET COUNT 209 10^3/uL (130-400); RED BLOOD COUNT 4.34 10^6/uL (4.35-5.85); RED CELL DISTRIBUTION WIDTH 13.4 % (10.0-14.5); WHITE BLOOD COUNT 7.7 10^3/uL (4.3-11.0)
[2017-07-01 23:02] LABS: PROTHROMBIN TIME PATIENT 13.3 SEC (12.2-14.7)
[2017-07-01 23:15] LABS: ALANINE AMINOTRANSFERASE 42 U/L (0-55); ALBUMIN 4.3 GM/DL (3.2-4.5); ALKALINE PHOSPHATASE 84 U/L (40-136); BILIRUBIN,TOTAL 0.3 MG/DL (0.1-1.0); BUN/CREATININE RATIO 12; CALCIUM 9.6 MG/DL (8.5-10.1); CARBON DIOXIDE 21 MMOL/L (21-32); CHLORIDE 106 MMOL/L (98-107); CREATININE SERUM 0.82 MG/DL (0.60-1.30); GFR ESTIMATED > 60; GLUCOSE 119 MG/DL (70-105); LIPASE 30 U/L (8-78); MAGNESIUM 2.1 MG/DL (1.8-2.4); POTASSIUM 3.9 MMOL/L (3.6-5.0); SODIUM 140 MMOL/L (135-145); TOTAL PROTEIN 7.1 GM/DL (6.4-8.2)
[2017-07-01 23:22] LABS: MYOGLOBIN SERUM 78.2 NG/ML (10.0-92.0)
[2017-07-02 00:13] VITALS: BP 126/67
--- NOTE | 2017-07-02 06:24 | Diagnostic Imaging Report ---
INDICATION: Chest pain. Comparison with 05/02/2017. FINDINGS: There continues to be some basilar discoid atelectasis bilaterally. No acute infiltrates have developed. Heart is not enlarged. There is no pulmonary edema. No pneumothorax or pleural effusion. IMPRESSION: Persistent bilateral basilar discoid atelectasis. Dictated by: Dictated on workstation # [id number]
== END 2017-07-02 00:13 | disposition home or self-care (01) ==
LOC: EDUNIT# 22:21 → ER 22:23
DX: R07.89 Other chest pain (principal); R60.0 Localized edema; E78.00 Pure hypercholesterolemia, unspecified; I10 Essential (primary) hypertension; F03.90 Unspecified dementia, unspecified severity, without behavioral disturbance, psychotic disturbance, mood disturbance, and anxiety; K21.9 Gastro-esophageal reflux disease without esophagitis; F41.9 Anxiety disorder, unspecified; F32.9 Major depressive disorder, single episode, unspecified; E11.9 Type 2 diabetes mellitus without complications; J43.9 Emphysema, unspecified; Z87.891 Personal history of nicotine dependence; Z85.46 Personal history of malignant neoplasm of prostate; Z85.828 Personal history of other malignant neoplasm of skin; Z87.442 Personal history of urinary calculi; Z87.01 Personal history of pneumonia (recurrent); Z90.89 Acquired absence of other organs; Z90.79 Acquired absence of other genital organ(s); Z88.6 Allergy status to analgesic agent; Z88.8 Allergy status to other drugs, medicaments and biological substances; Z79.84 Long term (current) use of oral hypoglycemic drugs; Z79.52 Long term (current) use of systemic steroids
CPT/HCPCS: 36415; 71045; 80053; 83690; 83735; 83874; 83880; 84484; 85025; 85610; 85730; 93005; 93041; 94640

== ENCOUNTER → 2017-07-15 | Outpatient (CLI) | payer MEDICARE, MEDICAID ==
[~2017-07-15] MED LIST changes: -BENA20TA2 PO; +BENA20TA7 PO; +CATHETER FLUSH 10 ML SYR IV PRN; +CEPH-507 PO; -CLON1TAB3 PO; +CLON1TAB4 PO; +CLOP75TA28 PO; +FLUC150T PO; -IPRA3AMP IH; +IPRA3AMP31 IH; +LORA10TA76 PO; -METF500T4 PO; +METF500T5 PO; +ONDA4TAB8 SL; +PANT40TA2 PO; +REGADENOSON 0.4 MG/5 ML SYR (LEXISCAN) IV ONE
[2017-07-15 08:15] LABS: ALANINE AMINOTRANSFERASE 47 U/L (0-55); ALBUMIN 4.4 GM/DL (3.2-4.5); ALKALINE PHOSPHATASE 83 U/L (40-136); BILIRUBIN,TOTAL 0.5 MG/DL (0.1-1.0); BUN/CREATININE RATIO 11; CALCIUM 9.6 MG/DL (8.5-10.1); CARBON DIOXIDE 25 MMOL/L (21-32); CHLORIDE 102 MMOL/L (98-107); CHOLESTEROL 105 MG/DL (< 200); CREATININE SERUM 0.85 MG/DL (0.60-1.30); GFR ESTIMATED > 60; GLUCOSE 109 MG/DL (70-105); HDL CHOLESTEROL 33 MG/DL (40-60); POTASSIUM 4.4 MMOL/L (3.6-5.0); SODIUM 139 MMOL/L (135-145); TOTAL PROTEIN 7.3 GM/DL (6.4-8.2); TRIGLYCERIDES 120 MG/DL (<150); VLDL CHOLESTEROL 24 MG/DL (5-40)
[2017-07-15 09:53] VITALS: BP 136/65
[2017-07-15 09:54] VITALS: BP 142/65
[2017-07-15 09:58] VITALS: BP 116/81
--- NOTE | 2017-07-15 18:40 | STRESS TEST ---
DATE OF SERVICE: 07/15/2017 RESTING AND POST REGADENOSON TECHNETIUM-99M TETROFOSMIN SPECT CT IMAGING ORDERING PHYSICIAN: LYNN Munguia PRIMARY CARE PHYSICIAN: Dr. Alaniz. OTHER PHYSICIAN: LYNN Acevedo CLINICAL DIAGNOSES: Chest discomfort, hypertension, hyperlipidemia. Baseline images were carried out after injection of 10.51 mCi technetium-99m Tetrofosmin. This was followed by 0.4 mg regadenoson and 32.3 mCi technetium-99m Tetrofosmin for stress imaging. The electrocardiogram showed sinus rhythm at baseline and did not change significantly with the regadenoson infusion. The patient noted some shortness of breath following regadenoson infusion, which resolved in a few minutes. Review of images at rest and following stress does not indicate any distinct perfusion defect consistent with significant myocardial ischemia or infarction. Some degree of diaphragmatic attenuation is seen both at rest and following regadenoson infusion. Gated images show normal global left ventricular systolic function with normal regional wall motion including the diaphragmatic wall of the left ventricle. Left ventricular ejection fraction is calculated to be 75%. Left ventricular end diastolic volume is 78 mL. TID is absent (1.06). CONCLUSIONS: 1. No evidence of any significant myocardial ischemia or infarction on this study. 2. Normal regional wall motion. 3. Normal global left ventricular systolic function with a calculated ejection fraction of 75%. Job ID: [id number] DocumentID: [id number] Dictated Date: 07/15/2017 17:16:24 Programming Engineer Date: 07/15/2017 18:40:04 Dictated By: CARLOS HA MD, MA, FACP, FACC,
== END ==
LOC: CARD 07:35
PROVIDERS: ATTEND Nurse Practitioner Family
DX: I10 Essential (primary) hypertension (principal); E78.5 Hyperlipidemia, unspecified; I65.29 Occlusion and stenosis of unspecified carotid artery
CPT/HCPCS: 36415; 78452; 80053; 80061; 93017

== ENCOUNTER 2017-07-16 00:24 | Emergency (ER) | payer MEDICARE, MEDICAID ==
[~2017-07-16] VITALS: Ht 182.9 cm; Wt 90.7 kg
[~2017-07-16 00:24] MED LIST changes: -CATHETER FLUSH 10 ML SYR IV PRN; -CEPH-507 PO; -CLOP75TA28 PO; -FLUC150T PO; -LORA10TA76 PO; -ONDA4TAB8 SL; -PANT40TA2 PO; -REGADENOSON 0.4 MG/5 ML SYR (LEXISCAN) IV ONE
[2017-07-16] MEDS ORDERED: LEVOFLOXACIN 500 MG TAB (LEVAQUIN) PO ONE (00:30)
[2017-07-16] MEDS ORDERED: KETOROLAC 30 MG/ML VIAL IVP ONE (00:30)
[2017-07-16] MEDS ORDERED: RX-ONDANSETRON 4 MG ODT (ZOFRAN) PPK #4 PO STA (00:30)
[2017-07-16] MEDS ORDERED: RX-TRAMADOL 50 MG (ULTRAM) TAB PPK#4 PO STA (00:30)
[2017-07-16] MEDS ORDERED: ALFUZOSIN HCL 10 MG TAB (UROXATRAL) PO SCH (00:30)
--- OUTSIDE RECORDS SUMMARY | 2017-07-16 00:39 | XMS REPORT ---
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 Active 5104629 Problem 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 Active 451022087 Problem Mixed hyperlipidemia E78.2 Active 482448284 Problem Chronic GERD K21.9 Active 141192031 Problem Chronic pain syndrome G89.4 Active 240405138 Problem Allergic rhinitis, unspecified allergic rhinitis trigger, unspecified rhinitis seasonality J30.9 Active 99597940 Problem Anxiety F41.9 Active 54803586 Problem Osteoarthritis of both knees, unspecified osteoarthritis type M17.0 Active 888857000 Problem Type 2 diabetes mellitus with diabetic neuropathy, without long-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 Active 75752442 ALLERGIES No Information ENCOUNTERS Encounter Location Date Diagnosis [facility] [id number] [place] [address] 00562- 6603 Jun, Allergic rhinitis, unspecified allergic rhinitis trigger, unspecified rhinitis seasonality J30.9 [facility] [id number] [place] [address] 19624- 6828 Jun, Chronic pain syndrome G89.4 [facility] [id number] [place] [address] 97211- 5198 May, [facility] [id number] [place] [address] 16218- 5000 May, COPD with acute exacerbation J44.1 [facility] [address] [place] [id number] [place] [address] 06026- 1771 14 May, 2017 Type 2 diabetes mellitus with diabetic neuropathy, without long-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 ; COPD with acute exacerbation J44.1 ; Hypoxia R09.02 ; Chronic pain syndrome G89.4 ; Yeast dermatitis B37.2 ; 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 and 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 [place] [address] 71885- 6864 May, [facility] [address] 15723- 8728 May, Chronic pain syndrome G89.4 [place] [address] [place] [id number] [place] [address] 05783- 4579 May, [place] [address] 35370- 4938 May, [facility] [id number] [place] [address] 93633- 8885 May, Mixed hyperlipidemia E78.2 [place] [address] 09957- 8394 15 May, 2017 Chronic pain syndrome G89.4 [place] [address] [place] [id number] [place] [address] 91402- 9462 May, Anxiety F41.9 and Chronic pain syndrome G89.4 [facility] [id number] [place] [address] 66568- 9048 Mar, [facility] [id number] [place] [address] 71222- 2509 Mar, [facility] [id number] [place] [address] 10960- 7588 Mar, [place] [id number] [place] [address] 75811- 6340 Mar, [facility] [id number] [address] 6769 Mar, [facility] [id number] [place] [address] 06096- 5711 Mar, Anxiety F41.9 and Chronic pain syndrome G89.4 [facility] [id number] [place] [address] 52311- 8710 Mar, Medicare annual wellness visit, initial Z00.00 [...] Hiatal hernia K44.9 and Actinic keratosis L57.0 [place] [id number] [place] [address] 15356- 2966 Mar, [place] [id number] [place] [address] 71607- 1390 Mar, Chronic pain syndrome G89.4 [place] [address] [id number] [place] [address] 70871- 5167 Feb, [place] [id number] [place] [address] 20354- 9262 Feb, Chronic pain syndrome G89.4 [facility] [id number] [place] [address] 49647- 8403 Feb, [place] [id number] [place] [address] 28482- 3585 Feb, [facility] [id number] [place] [address] 07630- 0381 Feb, Anxiety F41.9 [place] [id number] [place] [address] 42831- 3150 Feb, [facility] [address] 61392- 5237 Feb, Chronic pain syndrome G89.4 [facility] [id number] [place] [address] 64791- 7066 Jan, Essential hypertension I10 [facility] [address] 94780- 1162 Jan, Chronic pain syndrome G89.4 [facility] [address] 04341- 6739 Jan, [place] [address] 98502- 6431 Jan, Anxiety F41.9 [place] [address] 53791- 3187 Jan, Encounter for immunization Z23 and Community acquired pneumonia, unspecified laterality J18.9 [facility] [id number] [place] [address] 22105- 9408 Jan, Type 2 diabetes mellitus with diabetic neuropathy, without long-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 [place] [id number] [place] [address] 60128- 8482 Dec, Anxiety F41.9 and Chronic pain syndrome G89.4 [facility] [id number] [place] [address] 17571- 2261 Dec, Chronic pain syndrome G89.4 and Essential hypertension I10 [facility] [address] 81841- 4512 Dec, [facility] [address] 54622- 4604 Dec, Anxiety F41.9 [facility] [address] 25096- 3014 Dec, [facility] [id number] [place] [address] 22130- 6192 Dec, Type 2 diabetes mellitus with diabetic neuropathy, without long-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 ; Lactic acidosis E87.2 ; Chronic obstructive pulmonary disease, unspecified COPD type J44.9 and Encounter for immunization Z23 [facility] [id number] [place] [address] 56866- 8476 Dec, Chronic pain syndrome G89.4 [facility] [id number] [place] [address] 24361 2546 Nov, [facility] [address] 10285- 9002 Nov, Chronic pain syndrome G89.4 [facility] [id number] [place] [address] 44767- 1016 Nov, [facility] [address] 08605- 0832 Nov, [facility] [id number] [place] [address] 76406- 2548 Nov, Anxiety F41.9 [facility] [id number] [place] [address] 35523- 2543 Nov, Anxiety F41.9 [facility] [id number] [place] [address] 51716 2541 08 Nov, 2016 [facility] [id number] [place] [address] 15482- 2544 Nov, [facility] [id number] [place] [address] 28209- 2542 Nov, [facility] [id number] [place] [address] 03189- 2655 Oct, [facility] [id number] [place] [address] 16361- 7903 Oct, [facility] [address] [place] [address]- 2652 Oct, [facility] [id number] [place] [address] 43171- 5792 Oct, Essential hypertension I10 and Chronic pain syndrome G89.4 [facility] [id number] [place] [address] 62075- 6264 Oct, Anxiety F41.9 [facility] [id number] [place] [address] 18723- 5463 Oct, [facility] [id number] [place] [address] 61878- 1178 Oct, Chronic pain syndrome G89.4 [facility] [id number] [place] [address] 07976 -8060 Oct, Sore throat J02.9 and Acute nasopharyngitis (common cold) J00 [facility] [id number] [place] [address] 41982- 8425 Sep, [facility] [id number] [place] [address] 13503- 1229 Sep, COPD exacerbation J44.1 [facility] [id number] [place] [address] 26308- 2376 Sep, Chronic pain syndrome G89.4 [facility] [address] [place] [address] 92174- 3729 Sep, Essential hypertension I10 [facility] [id number] [place] [address] 82866- 2224 Sep, [facility] [id number] [place] [address] 36261- 1367 Sep, [facility] [id number] [place] [address] 49116- 4398 Sep, Anxiety F41.9 [facility] [id number] [place] [address] 80527- 9748 Sep, Chronic pain syndrome G89.4 [facility] [address] [place] [address] 08230- 9697 Sep, [facility] [id number] [place] [address] 43776- 8258 Aug, Acute seasonal allergic rhinitis, unspecified trigger J30.2 ; Hiatal hernia K44.9 and Chronic pain syndrome G89.4 [facility] [id number] [place] [address] 87240- 5780 Aug, [facility] [id number] [place] [address] 24798- 0596 Aug, [facility] [id number] [place] [address] 78118- 9020 Aug, Chronic obstructive pulmonary disease, unspecified COPD type J44.9 [facility] [id number] [place] [address] 09672- 2511 Aug, Anxiety F41.9 [facility] [id number] [place] [address] 80373- 3319 08 Aug, 2016 Chronic pain syndrome G89.4 [facility] [id number] [place] [address] 39922- 3632 Aug, Hiatal hernia K44.9 and Actinic keratosis L57.0 [facility] [id number] [place] [address] 49818- 6447 Aug, [facility] [id number] [place] [address] 64795- 8328 Aug, Anxiety F41.9 [facility] [id number] [place] [address] 86679- 7142 July, [facility] [id number] [place] [address] 05580- 0383 July, Hiatal hernia K44.9 [facility] [id number] [place] [address] 48569- 8343 July, [facility] [address] [place] [address] 51072- 5711 July, Anxiety F41.9 and Chronic pain syndrome G89.4 [facility] [id number] [place] [address] 35925- 4516 July, [facility] [id number] [place] [address] 29574- 8790 Jun, Chronic pain syndrome G89.4 [facility] [id number] [place] [address] 78760- 4046 Jun, Chronic pain syndrome G89.4 [facility] [id number] [place] [address] 41176- 4402 Jun, [facility] [id number] [place] [address] 20177- 9507 Jun, Anxiety F41.9 [facility] [id number] [place] [address] 39038- 7450 Jun, Allergic rhinitis, unspecified allergic rhinitis trigger, unspecified rhinitis seasonality J30.9 [facility] [id number] [place] [address] 16320- 5953 Jun, [facility] [id number] [place] [address] 17971- 3344 May, Chronic pain syndrome G89.4 [facility] [id number] [place] [address] 40121- 3020 May, [facility] [id number] [place] [address] 54037- 8038 May, [facility] [id number] [place] [address] 29560- 5255 May, Anxiety F41.9 [facility] [id number] [place] [address] 49032- 2265 May, Type 2 diabetes mellitus with diabetic [...] Anxiety F41.9 and Chronic pain syndrome G89.4 [place] [address] 61998- 4691 May, Essential hypertension I10 ; Type 2 diabetes mellitus with diabetic neuropathy, without long-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 ; Mixed hyperlipidemia E78.2 ; Chronic obstructive pulmonary disease, unspecified COPD type J44.9 and Chronic GERD K21.9 [place] [address] [place] [id number] [place] [address] 21571- 6205 May, [place] [address] 70659- 3093 May, [place] [address] 77059- 3120 May, Type 2 diabetes mellitus with diabetic neuropathy, without long-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 [place] [address] [place] [id number] [place] [address] 39357- 0710 May, Dementia without behavioral disturbance, unspecified dementia type F03.90 [place] [address] [place] [id number] [place] [address] 15644- 6506 May, Type 2 diabetes mellitus with diabetic neuropathy, without long-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 ; Essential hypertension I10 ; Mixed hyperlipidemia E78.2 ; Chronic obstructive pulmonary disease, unspecified COPD type J44.9 ; Chronic GERD K21.9 and Osteoarthritis of both knees, unspecified osteoarthritis type M17.0 [place] [address] [place] [place] [id number] [place] [address] 15938- 2801 May, [place] [address] 41155- 1418 May, [place] [address] [place] [address] 56062- 5024 May, Anxiety F41.9 and Unspecified symptoms and signs involving cognitive functions and awareness R41.9 [facility] [id number] [place] [address] 86933- 7078 May, [facility] [address] [id number] [place] [address] 34827- 3377 May, Type 2 diabetes mellitus with diabetic neuropathy, without long-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 ; Anxiety F41.9 and Chronic obstructive pulmonary disease, unspecified COPD type J44.9 [place] [address] [place] [id number] [place] [address] 97820- 3666 May, [place] [address] [place] [id number] [place] [address] 93644- 3258 May, [place] [address] [place] [place] [id number] [place] [address] 47163- 8822 May, [facility] [id number] [place] [address] 76709- 2373 May, Chronic obstructive pulmonary disease, unspecified COPD type J44.9 [facility] [address] [place] [address] 10979- 9655 Mar, [place] [address] [place] [id number] [place] [address] 75626- 2949 Mar, Arthritis of both knees M19.90 [place] [address] [place] [id number] [place] [address] 51421- 8665 Mar, Type 2 diabetes mellitus with diabetic neuropathy, without long-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 [place] [address] [place] [id number] [place] [address] 78022- 2420 Mar, [facility] [address] [place] [address] 67974- 9063 Mar, Neck pain M54.2 and Weakness generalized R53.1 [facility] [id number] [place] [address] 70750- 9738 Mar, [facility] [address] [id number] [place] [address] 50305- 5469 Mar, Cervicalgia M54.2 and Impacted cerumen of both ears H61.23 [facility] [address] [place] [id number] [place] [address] 57929- 3795 Mar, [facility] [address] [id number] [place] [address] 24282- 0034 Mar, Type 2 diabetes mellitus with diabetic neuropathy, without long-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 [facility] [address] [place] [id number] [place] [address] 91114- 1754 29 Feb, 2016 [facility] [address] [id number] [place] [address] 65645- 4762 Feb, Hypoxia R09.02 [facility] [address] [place] [id number] [place] [address] 91122- 1517 Feb, [facility] [id number] [place] [address] 06585- 0636 Feb, [facility] [id number] [place] [address] 66295- 0022 Feb, [facility] [address] [place] [address] 11136- 0039 16 Feb, 2016 Type 2 diabetes mellitus with diabetic neuropathy, without long-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 [facility] [address] [place] [address] 69641- 6139 15 Feb, 2016 Osteoarthritis of both knees, unspecified osteoarthritis type M17.0 [facility] [id number] [place] [address] 12301- 4061 14 Feb, 2016 [facility] [address] [place] [address] 57718- 1122 Feb, [facility] [id number] [place] [address] 14815- 9653 Feb, [facility] [id number] [place] [address] 04254- 6731 Jan, [facility] [id number] [place] [address] 19651- 6190 Jan, [facility] [address] 88638- 9366 Jan, [facility] [id number] [place] [address] 36199- 0864 Jan, [facility] [address] 44041- 2571 Jan, Tinea pedis of both feet B35.3 [facility] [id number] [place] [address] 96581- 8921 Jan, Type 2 diabetes mellitus with diabetic [...] seasonality J30.9 and Encounter for immunization Z23 [facility] [address] [place] [address] 05228- 1742 Jan, [facility] [id number] [place] [address] 15882- 1657 Jan, [facility] [id number] [place] [address] 95869- 2714 Dec, [facility] [id number] [place] [address] 81854- 2615 Dec, [facility] [address] [place] [address] Dec, Unspecified asthma with (acute) exacerbation J45.901 and Chronic obstructive pulmonary disease with (acute) exacerbation J44.1 [facility] [address] [place] [address] 80031- 3363 Dec, Arthritis of both knees M19.90 and Acute medial meniscus tear, right, initial encounter S83.241A [facility] [id number] [place] [address] 02128- 3537 Dec, [facility] [id number] [place] [address] 55679- 3999 Dec, [facility] [id number] [place] [address] 60187- 7044 Dec, [facility] [id number] [place] [address] 26424- 1090 Dec, [facility] [id number] [place] [address] 68128- 4920 Dec, History of pneumonia Z87.01 [facility] [address] [place] [address] 15574- 4214 Dec, [facility] [id number] [place] [address] 69009- 6418 Dec, [facility] [address] [place] [address] 36239- 0244 Dec, [facility] [id number] [place] [address] 79745- 1283 Dec, [facility] [address] [place] [address] 12180- 3278 Dec, [facility] [id number] [place] [address] 82762- 7546 Dec, [facility] [address] [address]- 0756 30 Nov, 2015 Cough R05 and Pneumonia due to infectious organism, unspecified laterality, unspecified part of lung J18.9 [facility] [address] [facility] [id number] [address]- [address]30 Nov, [place] [address] [facility] [id number] [address]- 6[address] Nov, Type 2 diabetes mellitus with diabetic [...] allergic rhinitis trigger, unspecified rhinitis seasonality J30.9 [place] [address] [facility] [id number] [address]- 4593 Nov, IMMUNIZATIONS No Known Immunizations SOCIAL HISTORY Never Assessed REASON FOR VISIT Controlled Med Refill PLAN OF CARE VITAL SIGNS MEDICATIONS Medication [...] obstructive pulmonary disease (COPD)-wears 2L O2 per [place], uses [employer] for home O2 Medical History Arthritis-knees and [...] Attending 12/2016 Hospitalization History Cough- [facility] 04/10/2017
--- OUTSIDE RECORDS SUMMARY | 2017-07-16 00:40 | XMS REPORT ---
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 Active 0153747 Problem 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 Active 833314165 Problem Mixed hyperlipidemia E78.2 Active 610541269 Problem Chronic GERD K21.9 Active 034598694 Problem Chronic pain syndrome G89.4 Active 671028190 Problem Allergic rhinitis, unspecified allergic rhinitis trigger, unspecified rhinitis seasonality J30.9 Active 08550723 Problem Anxiety F41.9 Active 06118261 Problem Osteoarthritis of both knees, unspecified osteoarthritis type M17.0 Active 818096341 Problem Type 2 diabetes mellitus with diabetic neuropathy, without long-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 Active 78737660 ALLERGIES No Information ENCOUNTERS Encounter Location Date Diagnosis [facility] [id number] [place] [address] 22824- 3635 Jun, Allergic rhinitis, unspecified allergic rhinitis trigger, unspecified rhinitis seasonality J30.9 [facility] [id number] [place] [address] 91515- 0715 Jun, Chronic pain syndrome G89.4 [facility] [id number] [place] [address] 94968- 5296 May, [facility] [id number] [place] [address] 96111- 2885 May, COPD with acute exacerbation J44.1 [facility] [id number] [place] [address] 88280- 4819 14 May, 2017 Type 2 diabetes mellitus with diabetic neuropathy, without long-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 ; COPD with acute exacerbation J44.1 ; Hypoxia R09.02 ; Chronic pain syndrome G89.4 ; Yeast dermatitis B37.2 ; 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 and 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 [facility] [address] 27737- 3560 May, [facility] [address] 76177- 7772 May, Chronic pain syndrome G89.4 [place] [id number] [place] [address] 67391- 4488 May, [place] [address] 20639- 6809 May, [facility] [id number] [place] [address] 12154- 1359 May, Mixed hyperlipidemia E78.2 [place] [address] 98203- 9315 15 May, 2017 Chronic pain syndrome G89.4 [place] [id number] [place] [address] 78251- 0255 May, Anxiety F41.9 and Chronic pain syndrome G89.4 [facility] [id number] [place] [address] 80231- 8364 Mar, [facility] [id number] [place] [address] 13764- 8027 Mar, [facility] [id number] [place] [address] 03088- 1669 Mar, [place] [id number] [place] [address] 91020- 7793 Mar, [facility] [id number] [address] 2017 Mar, [facility] [id number] [place] [address] 72428- 4648 Mar, Anxiety F41.9 and Chronic pain syndrome G89.4 [facility] [id number] [place] [address] 48489- 1220 Mar, Medicare annual wellness visit, initial Z00.00 [...] Hiatal hernia K44.9 and Actinic keratosis L57.0 [place] [id number] [place] [address] 86579- 3060 Mar, [facility] [id number] [place] [address] 44838- 2496 Mar, Chronic pain syndrome G89.4 [place] [id number] [place] [address] 33031- 9648 Feb, [place] [id number] [place] [address] 43644- 7637 Feb, Chronic pain syndrome G89.4 [facility] [id number] [place] [address] 99301- 2829 Feb, [place] [id number] [place] [address] 52154- 0387 Feb, [facility] [id number] [place] [address] 45194- 7018 Feb, Anxiety F41.9 [place] [id number] [place] [address] 02832- 0296 Feb, [facility] [address] 05627- 1293 Feb, Chronic pain syndrome G89.4 [facility] [id number] [place] [address] 93080- 2151 Jan, Essential hypertension I10 [facility] [address] 90931- 7007 Jan, Chronic pain syndrome G89.4 [facility] [address] 44455- 6725 Jan, [place] [address] 93991- 3248 Jan, Anxiety F41.9 [place] [address] 31974- 1660 Jan, Encounter for immunization Z23 and Community acquired pneumonia, unspecified laterality J18.9 [facility] [id number] [place] [address] 16412- 3408 Jan, Type 2 diabetes mellitus with diabetic neuropathy, without long-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 [place] [id number] [place] [address] 26227- 2910 Dec, Anxiety F41.9 and Chronic pain syndrome G89.4 [facility] [id number] [place] [address] 60938- 2568 Dec, Chronic pain syndrome G89.4 and Essential hypertension I10 [facility] [address] 24033- 7403 Dec, [facility] [address] 51142- 7647 Dec, Anxiety F41.9 [facility] [address] 48874- 8247 Dec, [facility] [id number] [place] [address] 03093- 2835 Dec, Type 2 diabetes mellitus with diabetic neuropathy, without long-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 ; Lactic acidosis E87.2 ; Chronic obstructive pulmonary disease, unspecified COPD type J44.9 and Encounter for immunization Z23 [facility] [id number] [place] [address] 04529- 5589 Dec, Chronic pain syndrome G89.4 [facility] [id number] [place] [address] 59510 2546 Nov, [facility] [address] 56678- 8848 Nov, Chronic pain syndrome G89.4 [facility] [id number] [place] [address] 29661- 9786 Nov, [facility] [address] 16315- 9570 Nov, [facility] [id number] [place] [address] 63741- 2541 Nov, Anxiety F41.9 [facility] [id number] [place] [address] 06999- 2548 Nov, Anxiety F41.9 [facility] [id number] [place] [address] 26384 2541 08 Nov, 2016 [facility] [id number] [place] [address] 08068- 2547 Nov, [facility] [id number] [place] [address] 00661- 2543 Nov, [facility] [id number] [place] [address] 70343- 1760 Oct, [facility] [id number] [place] [address] 50099- 7623 Oct, [facility] [address] [place] [address]- 3603 Oct, [facility] [id number] [place] [address] 68948- 2208 Oct, Essential hypertension I10 and Chronic pain syndrome G89.4 [facility] [id number] [place] [address] 43570- 3996 Oct, Anxiety F41.9 [facility] [id number] [place] [address] 75540- 0755 Oct, [facility] [id number] [place] [address] 34436- 7273 Oct, Chronic pain syndrome G89.4 [facility] [id number] [place] [address] 39171 -0979 Oct, Sore throat J02.9 and Acute nasopharyngitis (common cold) J00 [facility] [id number] [place] [address] 16698- 9419 Sep, [facility] [id number] [place] [address] 82263- 4376 Sep, COPD exacerbation J44.1 [facility] [id number] [place] [address] 71216- 0840 Sep, Chronic pain syndrome G89.4 [facility] [id number] [place] [address] 92975- 2860 Sep, Essential hypertension I10 [facility] [id number] [place] [address] 96525- 6176 Sep, [facility] [id number] [place] [address] 34840- 7338 Sep, [facility] [id number] [place] [address] 40388- 2001 Sep, Anxiety F41.9 [facility] [id number] [place] [address] 67396- 5756 Sep, Chronic pain syndrome G89.4 [facility] [id number] [place] [address] 63241- 7723 Sep, [facility] [id number] [place] [address] 76996- 8091 Aug, Acute seasonal allergic rhinitis, unspecified trigger J30.2 ; Hiatal hernia K44.9 and Chronic pain syndrome G89.4 [facility] [id number] [place] [address] 36924- 1152 Aug, [facility] [id number] [place] [address] 41820- 7815 Aug, [facility] [id number] [place] [address] 74075- 8037 Aug, Chronic obstructive pulmonary disease, unspecified COPD type J44.9 [facility] [id number] [place] [address] 14951- 5757 Aug, Anxiety F41.9 [facility] [id number] [place] [address] 77657- 7176 08 Aug, 2016 Chronic pain syndrome G89.4 [facility] [id number] [place] [address] 64279- 0191 Aug, Hiatal hernia K44.9 and Actinic keratosis L57.0 [facility] [id number] [place] [address] 91471- 4221 Aug, [facility] [id number] [place] [address] 77146- 3567 Aug, Anxiety F41.9 [facility] [id number] [place] [address] 88803- 2306 July, [facility] [id number] [place] [address] 54950- 4396 July, Hiatal hernia K44.9 [facility] [id number] [place] [address] 70235- 6453 July, [facility] [id number] [place] [address] 42189- 6401 July, Anxiety F41.9 and Chronic pain syndrome G89.4 [facility] [id number] [place] [address] 75702- 8161 July, [facility] [id number] [place] [address] 07702- 3370 Jun, Chronic pain syndrome G89.4 [facility] [id number] [place] [address] 06934- 5462 Jun, Chronic pain syndrome G89.4 [facility] [id number] [place] [address] 04849- 6418 Jun, [facility] [id number] [place] [address] 37460- 3093 Jun, Anxiety F41.9 [facility] [id number] [place] [address] 74994- 3510 Jun, Allergic rhinitis, unspecified allergic rhinitis trigger, unspecified rhinitis seasonality J30.9 [facility] [id number] [place] [address] 56034- 5731 Jun, [facility] [id number] [place] [address] 24686- 8593 May, Chronic pain syndrome G89.4 [facility] [id number] [place] [address] 53227- 4082 May, [facility] [id number] [place] [address] 81617- 7634 May, [facility] [id number] [place] [address] 04328- 5308 May, Anxiety F41.9 [facility] [id number] [place] [address] 99861- 7137 May, Type 2 diabetes mellitus with diabetic [...] Anxiety F41.9 and Chronic pain syndrome G89.4 [place] [address] 35087- 1461 May, Essential hypertension I10 ; Type 2 diabetes mellitus with diabetic neuropathy, without long-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 ; Mixed hyperlipidemia E78.2 ; Chronic obstructive pulmonary disease, unspecified COPD type J44.9 and Chronic GERD K21.9 [place] [id number] [place] [address] 59278- 9076 May, [place] [address] 16297- 1956 May, [place] [address] 12825- 5266 May, Type 2 diabetes mellitus with diabetic neuropathy, without long-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 [place] [id number] [place] [address] 36956- 6706 May, Dementia without behavioral disturbance, unspecified dementia type F03.90 [place] [id number] [place] [address] 32021- 9564 May, Type 2 diabetes mellitus with diabetic neuropathy, without long-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 ; Essential hypertension I10 ; Mixed hyperlipidemia E78.2 ; Chronic obstructive pulmonary disease, unspecified COPD type J44.9 ; Chronic GERD K21.9 and Osteoarthritis of both knees, unspecified osteoarthritis type M17.0 [place] [id number] [place] [address] 94586- 4922 May, [place] [address] 67663- 8646 May, [place] [id number] [place] [address] 97010- 3312 May, Anxiety F41.9 and Unspecified symptoms and signs involving cognitive functions and awareness R41.9 [facility] [id number] [place] [address] 68054- 7076 May, [facility] [id number] [place] [address] 55013- 5369 May, Type 2 diabetes mellitus with diabetic neuropathy, without long-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 ; Anxiety F41.9 and Chronic obstructive pulmonary disease, unspecified COPD type J44.9 [place] [id number] [place] [address] 79420- 1178 May, [place] [id number] [place] [address] 03838- 0662 May, [place] [id number] [place] [address] 68974- 2228 May, [facility] [id number] [place] [address] 84899- 6031 May, Chronic obstructive pulmonary disease, unspecified COPD type J44.9 [facility] [id number] [place] [address] 37733- 4697 Mar, [place] [id number] [place] [address] 33502- 1822 Mar, Arthritis of both knees M19.90 [place] [id number] [place] [address] 65506- 3719 Mar, Type 2 diabetes mellitus with diabetic neuropathy, without long-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 [place] [id number] [place] [address] 30045- 5263 Mar, [facility] [id number] [place] [address] 14122- 6793 Mar, Neck pain M54.2 and Weakness generalized R53.1 [facility] [id number] [place] [address] 02248- 0656 Mar, [facility] [id number] [place] [address] 32907- 9834 Mar, Cervicalgia M54.2 and Impacted cerumen of both ears H61.23 [facility] [id number] [place] [address] 96974- 5667 Mar, [facility] [id number] [place] [address] 93896- 9806 Mar, Type 2 diabetes mellitus with diabetic neuropathy, without long-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 [facility] [id number] [place] [address] 67783- 0062 29 Feb, 2016 [facility] [id number] [place] [address] 28019- 1896 Feb, Hypoxia R09.02 [facility] [id number] [place] [address] 29918- 7362 Feb, [facility] [id number] [place] [address] 31621- 5909 Feb, [facility] [id number] [place] [address] 16707- 4396 Feb, [facility] [id number] [place] [address] 87288- 5889 16 Feb, 2016 Type 2 diabetes mellitus with diabetic neuropathy, without long-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 [facility] [id number] [place] [address] 85314- 3279 15 Feb, 2016 Osteoarthritis of both knees, unspecified osteoarthritis type M17.0 [facility] [id number] [place] [address] 60688- 4114 14 Feb, 2016 [facility] [id number] [place] [address] 83639- 0311 Feb, [facility] [id number] [place] [address] 94422- 2356 Feb, [facility] [id number] [place] [address] 59111- 8082 Jan, [facility] [id number] [place] [address] 50526- 2498 Jan, [facility] [address] 07852- 0603 Jan, [facility] [id number] [place] [address] 90878- 3303 Jan, [facility] [address] 34123- 3184 Jan, Tinea pedis of both feet B35.3 [facility] [id number] [place] [address] 69173- 3806 Jan, Type 2 diabetes mellitus with diabetic [...] seasonality J30.9 and Encounter for immunization Z23 [facility] [id number] [place] [address] 96641- 4643 Jan, [facility] [id number] [place] [address] 67412- 3561 Jan, [facility] [id number] [place] [address] 07416- 5637 Dec, [facility] [id number] [place] [address] 86113- 7701 Dec, [facility] [address] [place] [address] -[address]59 Dec, Unspecified asthma with (acute) exacerbation J45.901 and Chronic obstructive pulmonary disease with (acute) exacerbation J44.1 [facility] [id number] [place] [address] 04668- 9258 Dec, Arthritis of both knees M19.90 and Acute medial meniscus tear, right, initial encounter S83.241A [facility] [id number] [place] [address] 57275- 2349 Dec, [facility] [id number] [place] [address] 03349- 8143 Dec, [facility] [id number] [place] [address] 03838- 1853 Dec, [facility] [id number] [place] [address] 51010- 2494 Dec, [facility] [id number] [place] [address] 92048- 2139 Dec, History of pneumonia Z87.01 [facility] [id number] [place] [address] 87841- 5753 Dec, [facility] [id number] [place] [address] 01511- 9166 Dec, [facility] [id number] [place] [address] 26134- 8936 Dec, [facility] [id number] [place] [address] 64198- 9500 Dec, [facility] [id number] [place] [address] 51069- 4108 Dec, [facility] [id number] [place] [address] 23667- 8569 Dec, [facility] [address] [address]- 8409 30 Nov, 2015 Cough R05 and Pneumonia due to infectious organism, unspecified laterality, unspecified part of lung J18.9 [facility] [address] [facility] [id number] [address]- 4861 Nov, [place] [address] [facility] [id number], [place] [address]- 1677 Nov, Type 2 diabetes mellitus with diabetic [...] allergic rhinitis trigger, unspecified rhinitis seasonality J30.9 [place] [address] [facility] [id number], [place] [address]- 3840 12 Nov, 2015 IMMUNIZATIONS No Known Immunizations SOCIAL HISTORY Never Assessed REASON FOR VISIT Medication refill request PLAN OF CARE VITAL SIGNS MEDICATIONS Medication Instructions Dosage Frequency Start Date End Date Duration Status PredniSONE 20 mg Orally Once a day 1 tablet 24h Oct, 05 days Active RESULTS No Results PROCEDURES No Known procedures INSTRUCTIONS MEDICATIONS ADMINISTERED No Known Medications MEDICAL (GENERAL) HISTORY Type Description Date Medical History hypertension Medical History chronic obstructive pulmonary disease (COPD)-wears 2L O2 per [place], uses [employer] for home O2 Medical History Arthritis-knees and [...] Attending 12/2016 Hospitalization History Cough- [facility] 04/10/2017
--- OUTSIDE RECORDS SUMMARY | 2017-07-16 00:46 | XMS REPORT ---
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 Active 2289848 Problem 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 Active 548106905 Problem Mixed hyperlipidemia E78.2 Active 690391291 Problem Chronic GERD K21.9 Active 837883663 Problem Chronic pain syndrome G89.4 Active 196207333 Problem Allergic rhinitis, unspecified allergic rhinitis trigger, unspecified rhinitis seasonality J30.9 Active 32974302 Problem Anxiety F41.9 Active 85019143 Problem Osteoarthritis of both knees, unspecified osteoarthritis type M17.0 Active 620788064 Problem Type 2 diabetes mellitus with diabetic neuropathy, without long-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 Active 75745901 ALLERGIES No Information ENCOUNTERS Encounter Location Date Diagnosis [place] [id number] [address] Jun, Chronic pain syndrome G89.4 [facility] [id number] [address] May, [place] [id number] [place] [address] 60284- 2581 May, COPD with acute exacerbation J44.1 [facility] [address], [place] [address] 14 May, 2017 Type 2 diabetes mellitus with diabetic neuropathy, without long-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 ; COPD with acute exacerbation J44.1 ; Hypoxia R09.02 ; Chronic pain syndrome G89.4 ; Yeast dermatitis B37.2 ; 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 and 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 [facility] [id number] [place] [address] 23178- 2782 May, [facility] [address] [address]- 6821 May, Chronic pain syndrome G89.4 [facility] [address] 07405- 1119 May, [facility] [address] 17526- 8393 May, [facility] [address] 28593- 8344 May, Mixed hyperlipidemia E78.2 [facility] [address] 0[address]62- 5657 May, Chronic pain syndrome G89.4 [facility] [address] 7[address]11- 8541 May, Anxiety F41.9 and Chronic pain syndrome G89.4 [facility] [id number] [place] [address] 38867- 5464 Mar, [facility] [id number] [place] [address] 62488- 2519 Mar, [facility] [id number] [place] [address] 39741- 6129 Mar, [facility] [address] 89909- 7869 Mar, [facility] [id number] [place] [address] 32597- 7771 Mar, [facility] [address] 15185- 0956 Mar, Anxiety F41.9 and Chronic pain syndrome G89.4 [place] [id number] [place] [address] 38175- 9470 Mar, Medicare annual wellness visit, initial Z00.00 [...] Hiatal hernia K44.9 and Actinic keratosis L57.0 [place] [address] [address]27- 0973 Mar, [place] [address] 63751- 7266 Mar, Chronic pain syndrome G89.4 [place] [address] 75738- 4943 Feb, [place] [id number] [place] [address] 29390- 3740 Feb, Chronic pain syndrome G89.4 [place] [id number] [place] [address] 80844- 0512 Feb, [place] [id number] [place] [address] 44926- 5225 Feb, [place] [address] 01345- 0252 Feb, Anxiety F41.9 [place] [id number] [place] [address] 09022- 6305 Feb, [place] [address] 95365- 0730 Feb, Chronic pain syndrome G89.4 [facility] [id number] [place] [address] 86179- 9519 Jan, Essential hypertension I10 [facility] [id number] [place] [address] 78397- 4405 Jan, Chronic pain syndrome G89.4 [facility] [address] 83821- 2048 Jan, [facility] [id number] [place] [address] 73554- 5127 Jan, Anxiety F41.9 [place] [address] 54992- 1845 Jan, Encounter for immunization Z23 and Community acquired pneumonia, unspecified laterality J18.9 [place] [address] 43292- 8672 Jan, Type 2 diabetes mellitus with diabetic neuropathy, without long-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 [place] [id number] [place] [address] 85862- 2155 Dec, Anxiety F41.9 and Chronic pain syndrome G89.4 [facility] [id number] [place] [address] 38474- 1512 Dec, Chronic pain syndrome G89.4 and Essential hypertension I10 [facility] [id number] [place] [address] 37529- 0381 Dec, [facility] [id number] [place] [address] 48057- 7527 Dec, Anxiety F41.9 [facility] [id number] [place] [address] 95207- 6048 Dec, [facility] [id number] [place] [address] 30632- 3997 Dec, Type 2 diabetes mellitus with diabetic neuropathy, without long-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 ; Lactic acidosis E87.2 ; Chronic obstructive pulmonary disease, unspecified COPD type J44.9 and Encounter for immunization Z23 [facility] [id number] [place] [address] 76486- 4323 Dec, Chronic pain syndrome G89.4 [facility] [id number] [place] [address] 91443- 8844 Nov, [facility] [address] 78354- 2548 Nov, Chronic pain syndrome G89.4 [facility] [id number] [place] [address] 03617- 3562 Nov, [facility] [id number] [place] [address] 20358- 7481 Nov, [facility] [id number] [place] [address] 23228- 6888 15 Nov, 2016 Anxiety F41.9 [facility] [id number] [place] [address] 47941 2542 11 Nov, 2016 Anxiety F41.9 [facility] [id number] [place] [address] 43755- 0126 08 Nov, 2016 [facility] [id number] [place] [address] 74700- 4585 05 Nov, 2016 [facility] [id number] [place] [address] 46602- 3095 Nov, [facility] [id number] [place] [address] 06593- 7113 Oct, [facility] [id number] [place] [address] 19251- 7417 Oct, [facility] [id number] [place] [address] 64122- 5234 Oct, [facility] [id number] [place] [address] 67290- 3449 Oct, Essential hypertension I10 and Chronic pain syndrome G89.4 [facility] [address], [place] [address]- 1223 Oct, Anxiety F41.9 [facility] [address], [place] [address]- 2061 Oct, [facility] [address] [place] [address] 61693- 3825 Oct, Chronic pain syndrome G89.4 [facility] [address] [facility] [id number] [address] Oct, Sore throat J02.9 and Acute nasopharyngitis (common cold) J00 [facility] [id number] [place] [address] 90046- 6573 Sep, [facility] [id number] [place] [address] 44894- 5453 Sep, COPD exacerbation J44.1 [facility] [id number] [place] [address] 35607- 7718 Sep, Chronic pain syndrome G89.4 [facility] [address] [place] [address] 94716- 5544 Sep, Essential hypertension I10 [facility] [address], [place] [address]- 2113 Sep, [facility] [address] [place] [address] 76171- 5889 Sep, [facility] [address], [place] [address]- 0291 Sep, Anxiety F41.9 [facility] [address], [place] [address]- 7383 Sep, Chronic pain syndrome G89.4 [facility] [address], [place] [address]- 5260 Sep, [facility] [id number] [place] [address] 27376- 8138 Aug, Acute seasonal allergic rhinitis, unspecified trigger J30.2 ; Hiatal hernia K44.9 and Chronic pain syndrome G89.4 [facility] [id number] [place] [address] 33407- 9256 Aug, [facility] [id number] [place] [address] 02323- 0847 Aug, [facility] [id number] [place] [address] 16671- 8109 Aug, Chronic obstructive pulmonary disease, unspecified COPD type J44.9 [facility] [address] 23816- 1899 Aug, Anxiety F41.9 [facility] [id number] [place] [address] 41112- 4094 08 Aug, 2016 Chronic pain syndrome G89.4 [facility] [id number] [place] [address] 26724- 6989 07 Aug, 2016 Hiatal hernia K44.9 and Actinic keratosis L57.0 [facility] [id number] [place] [address] 58227- 9663 Aug, [facility] [id number] [place] [address] 89172- 5754 Aug, Anxiety F41.9 [facility] [id number] [place] [address] 09134- 6436 July, [facility] [id number] [place] [address] 66710- 4361 July, Hiatal hernia K44.9 [facility] [id number] [place] [address] 73205- 9069 July, [facility] [id number] [place] [address] 69505- 7305 July, Anxiety F41.9 and Chronic pain syndrome G89.4 [facility] [id number] [place] [address] 66300- 4686 July, [facility] [id number] [place] [address] 42200- 0573 Jun, Chronic pain syndrome G89.4 [facility] [id number] [place] [address] 69702- 1981 Jun, Chronic pain syndrome G89.4 [facility] [id number] [place] [address] 24487- 6106 Jun, [facility] [id number] [place] [address] 49743- 2182 Jun, Anxiety F41.9 [place] [id number] [place] [address] 43620- 3757 Jun, Allergic rhinitis, unspecified allergic rhinitis trigger, unspecified rhinitis seasonality J30.9 [place] [id number] [place] [address] 71497- 1388 Jun, [facility] [id number] [place] [address] 62281- 0671 May, Chronic pain syndrome G89.4 [facility] [id number] [place] [address] 45490- 8349 May, [place] [id number] [place] [address] 69135- 9268 May, [facility] [id number] [place] [address] 95493- 7201 May, Anxiety F41.9 [facility] [id number] [place] [address] 52726- 4311 May, Type 2 diabetes mellitus with diabetic [...] Anxiety F41.9 and Chronic pain syndrome G89.4 [place] [id number] [place] [address] 24744- 2693 May, Essential hypertension I10 ; Type 2 diabetes mellitus with diabetic neuropathy, without long-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 ; Mixed hyperlipidemia E78.2 ; Chronic obstructive pulmonary disease, unspecified COPD type J44.9 and Chronic GERD K21.9 [place] [id number] [place] [address] 46625- 7468 May, [place] [address] 67075- 9887 May, [place] [id number] [place] [address] 84849- 7976 May, Type 2 diabetes mellitus with diabetic neuropathy, without long-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 [place] [id number] [place] [address] 43364- 7536 May, Dementia without behavioral disturbance, unspecified dementia type F03.90 [place] [id number] [place] [address] 93802- 7677 May, Type 2 diabetes mellitus with diabetic neuropathy, without long-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 ; Essential hypertension I10 ; Mixed hyperlipidemia E78.2 ; Chronic obstructive pulmonary disease, unspecified COPD type J44.9 ; Chronic GERD K21.9 and Osteoarthritis of both knees, unspecified osteoarthritis type M17.0 [place] [id number] [place] [address] 87150- 7381 May, [place] [id number] [place] [address] 38278- 3359 May, [place] [id number] [place] [address] 70817- 6147 May, Anxiety F41.9 and Unspecified symptoms and signs involving cognitive functions and awareness R41.9 [facility] [id number] [place] [address] 74459- 1169 May, [facility] [id number] [place] [address] 32243- 3544 May, Type 2 diabetes mellitus with diabetic neuropathy, without long-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 ; Anxiety F41.9 and Chronic obstructive pulmonary disease, unspecified COPD type J44.9 [facility] [id number] [place] [address] 24062- 2586 May, [facility] [id number] [place] [address] 86260- 7273 May, [facility] [id number] [place] [address] 29275- 4453 May, [facility] [id number] [place] [address] 28622- 7940 May, Chronic obstructive pulmonary disease, unspecified COPD type J44.9 [facility] [id number] [place] [address] 46781- 1253 Mar, [place] [id number] [place] [address] 13477- 4785 Mar, Arthritis of both knees M19.90 [facility] [id number] [place] [address] 88365- 6100 Mar, Type 2 diabetes mellitus with diabetic neuropathy, without long-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 [facility] [id number] [place] [address] 97469- 7518 Mar, [place] [address] 17436- 3595 Mar, Neck pain M54.2 and Weakness generalized R53.1 [facility] [id number] [place] [address] 41765- 1748 Mar, [facility] [id number] [place] [address] 98823- 5413 Mar, Cervicalgia M54.2 and Impacted cerumen of both ears H61.23 [place] [id number] [place] [address] 53817- 5131 Mar, [place] [id number] [place] [address] 54861- 1064 Mar, Type 2 diabetes mellitus with diabetic neuropathy, without long-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 [facility] [id number] [place] [address] 42613- 4533 Feb, [place] [id number] [place] [address] 90048- 7099 Feb, Hypoxia R09.02 [facility] [id number] [place] [address] 96999- 2620 Feb, [place] [id number] [place] [address] 65477- 0304 Feb, [facility] [id number] [place] [address] 94595- 1723 Feb, [facility] [id number] [place] [address] 07642- 4282 Feb, Type 2 diabetes mellitus with diabetic neuropathy, without long-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 [place] [id number] [place] [address] 17943- 0212 Feb, Osteoarthritis of both knees, unspecified osteoarthritis type M17.0 [place] [id number] [place] [address] 50198- 4735 Feb, [place] [id number] [place] [address] 60988- 2618 Feb, [place] [id number] [place] [address] 16156- 0806 Feb, [place] [id number] [place] [address] 03595- 2455 Jan, [facility] [id number] [place] [address] 28749- 3857 Jan, [facility] [id number] [place] [address] 04293- 0353 Jan, [facility] [id number] [place] [address] 44473- 6542 Jan, [facility] [address] 11042- 4206 Jan, Tinea pedis of both feet B35.3 [place] [address] 26598- 3727 03 Jan, 2016 Type 2 diabetes mellitus with diabetic [...] seasonality J30.9 and Encounter for immunization Z23 [place] [id number] [place] [address] 19364- 6902 Jan, [facility] [id number] [place] [address] 78175- 2570 Jan, [facility] [id number] [place] [address] 28605- 0806 Dec, [facility] [address] 30880- 8012 Dec, [facility] [id number] [place] [address] 49711 -1014 Dec, Unspecified asthma with (acute) exacerbation J45.901 and Chronic obstructive pulmonary disease with (acute) exacerbation J44.1 [place] [address], [place] [address]- 9115 Dec, Arthritis of both knees M19.90 and Acute medial meniscus tear, right, initial encounter S83.241A [facility] [address], [place] [address]- 6099 Dec, [facility] [id number] [place] [address] 21552- 8243 14 Dec, 2015 [facility] [id number] [place] [address] 91894- 5017 14 Dec, 2015 [facility] [id number] [place] [address] 78322- 4886 12 Dec, 2015 [facility] [id number] [place] [address] 41766- 6872 11 Dec, 2015 History of pneumonia Z87.01 [facility] [id number] [place] [address] 45715- 0903 10 Dec, 2015 [facility] [address], [place] [address]- 9655 Dec, [facility] [id number] [place] [address] 54944- 3855 05 Dec, 2015 [facility] [address], [place] [address]- 8144 04 Dec, 2015 [facility] [address], [place] [address]- 6707 Dec, [facility] [address] [address]- 2441 Dec, [facility] [id number] [place] [address] 46653- 6011 30 Nov, 2015 Cough R05 and Pneumonia due to infectious organism, unspecified laterality, unspecified part of lung J18.9 [facility] [address] [address]- 3944 28 Nov, 2015 [facility] [address] [facility] [id number] [place] [address]- 9180 Nov, Type 2 diabetes mellitus with diabetic [...] allergic rhinitis trigger, unspecified rhinitis seasonality J30.9 [place] [address] [facility] [id number] [place] [address] 2866 Nov, IMMUNIZATIONS No Known Immunizations SOCIAL HISTORY Never Assessed REASON FOR VISIT benazepril refill PLAN OF CARE VITAL SIGNS MEDICATIONS Medication Instructions Dosage Frequency Start Date End Date Duration Status Benazepril HCl 20 mg Orally Once a day 1 tablet 24h 30 Active RESULTS No Results PROCEDURES No Known procedures INSTRUCTIONS MEDICATIONS ADMINISTERED No Known Medications MEDICAL (GENERAL) HISTORY Type Description Date Medical History hypertension Medical History chronic obstructive pulmonary disease (COPD)-wears 2L O2 per [place], uses [place] for home O2 Medical History Arthritis-knees and [...] TIA, [facility] 2014 Hospitalization History COPD exacerbation--[facility] 12/27/2015 Hospitalization History [facility] - fall 02/2016 Hospitalization History [facility] pneumonia 11/2016 Hospitalization History COPD exacerbation - Dr Hartley Attending 12/2016 Hospitalization History Cough- [facility] 04/10/2017
--- NOTE | 2017-07-16 00:53 | ED Cough/URI ---
General Chief Complaint: General Problems/Pain Stated Complaint: COUGHING Nursing Triage Note: PT PRESENTS TO ER WITH COMPLAINT OF AN AREA OF CONCERN ON HIS RECTUM THAT HE WANT CHECKED OUT. HE IS ALSO COMPLAINING OF A COUGH THAT STARTED TODAY AFTER HE HAD AN IMAGING TEST AT THE HOSPITAL Source: patient, old records Exam Limitations: other (PT IS LIMITED HISTORIAN, BUSINESS DEVELOPMENT OFFICER IS ALSO VERY LIMITED HISTORIAN) History of Present Illness Date Seen by Provider: Jul 16, 2017 Time Seen by Provider: 00:40 Initial Comments PT ARRIVES VIA POV WITH BUSINESS DEVELOPMENT OFFICER--AMBULATES IN USING A WALKER PT C/O NON-PRODUCTIVE COUGH--STATES IT BEGAN TODAY, AFTER HE WAS HERE AT HOSPITAL FOR OUTPATIENT TEST ( HAD STRESS TEST BY DR. HA--NORMAL WITH EF OF 75% ) STATES THE ROOM WAS COLD AND THINKS HE CAUGHT A COLD FROM THE ROOM BEING SO COLD C/O MILD SHORTNESS OF BREATH--IS A CHRONIC PROBLEM FOR PT AND IS OXYGEN DEPENDENT AT 3L/NC CONTINUOUSLY NO CHEST PAIN NO FEVER NO INCREASE IN CHRONIC SWELLING OF LEGS ALSO WANTS SORE ON BUTTOCK CHECKED--HAS SEEN PCP FOR THIS PROBLEM BUT NOT IMPROVED AND HAS NOT FOLLOWED UP SEEMS TO BE HIS PRIMARY FOCUS, AFTER ARRIVAL TO ER PT LIVES AT HOME WITH PT IS HERE WITH BUSINESS DEVELOPMENT OFFICER, WHO IS THERE FROM MIDNIGHT TO 0500 ANOTHER BUSINESS DEVELOPMENT OFFICER IS THERE FROM 1000 AM - 1700 PCP: JOANNE LINARES Allergies and Home Medications Allergies Coded Allergies: aspirin (Unverified Allergy, Unknown, 05/20/14) codeine (Verified Allergy, Unknown, 04/07/06) hydrocodone (Unverified Allergy, Unknown, 10/16/15) Uncoded Allergies: SSRI (Allergy, Unknown, 05/20/14) TCA (Allergy, Unknown, 05/20/14) Home Medications Amlodipine Besylate 10 Mg Tablet, 10 MG PO HS, (Reported) Atorvastatin Calcium 40 Mg Tablet, 40 MG PO HS, (Reported) Azithromycin 250 Mg Tablet, 250 MG PO DAILY@1700 Prescribed by: DARIN PINEDO on 01/27/17 1128 Benazepril HCl 20 Mg Tablet, 20 MG PO HS, (Reported) Cefpodoxime Proxetil 200 Mg Tablet, 200 MG PO BID Prescribed by: DARIN PINEDO on 01/27/17 1131 Chlorphen/Dm/Acetaminophen/GG 1 Each Tb.cp.seq, 1-2 TAB PO Q6H PRN for DRAINAGE, (Reported) Clonazepam 1 Mg Tablet, 1 MG PO TID, (Reported) Doxazosin Mesylate 4 Mg Tablet, 4 MG PO DAILY, (Reported) Fluticasone Propionate 16 Gm [place].susp, 2 SPRAYS NS DAILY, (Reported) Glipizide 5 Mg Tablet, 5 MG PO BID, (Reported) Glycerin/Propylene Glycol 15 Ml Drops, 1 DROP OU QID PRN for DRY EYES, (Reported ) Guaifenesin/Dextromethorphan 5 Ml Syrup, 5 ML PO TID, (Reported) Ipratropium/Albuterol Sulfate 3 Ml Ampul.neb, 3 ML IH TID, (Reported) Levocetirizine Dihydrochloride 5 Mg Tablet, 5 MG PO HS, (Reported) Metformin HCl 500 Mg Tablet, 250 MG PO BID, (Reported) TAKES 1/2 OF A (500 MG) TABLET Mineral Oil/Petrolatum,White 3.5 Gm Oint...g., OU BID, (Reported) Mirabegron 25 Mg Tab.er.24h, 25 MG PO DAILY, (Reported) Montelukast Sodium 10 Mg Tablet, 10 MG PO HS, (Reported) Multivitamin 1 Each Tablet, 1 TAB PO DAILY, (Reported) Ondansetron 4 Mg Tab.rapdis, 4 MG PO Q4H PRN for NAUSEA/VOMITING-1ST LINE Prescribed by: BOZENA WERNER on 05/02/171839 Oseltamivir Phosphate 75 Mg Cap, 75 MG PO BID Prescribed by: BOZENA WERNER on 05/02/171839 Pantoprazole Sodium 40 Mg Tablet.dr, 40 MG PO DAILY, (Reported) Prednisone 20 Mg Tab, 20 MG PO DAILY Prescribed by: DOMINGA TOLEDO on 04/10/17 1221 Pregabalin 100 Mg Capsule, 100 MG PO TID, (Reported) Ranitidine HCl 150 Mg Tablet, 150 MG PO HS, (Reported) Rivastigmine 1 Each Patch.td24, 4.6 MG TD DAILY, (Reported) Sucralfate 1 Gm Tablet, 1 GM PO QID, (Reported) Tramadol HCl 50 Mg Tablet, 50 MG PO BID PRN for PAIN-MODERATE, (Reported) Triamcinolone Acet 15 Gm Cr, TP BID PRN for BED SORES, (Reported) Vilazodone Hydrochloride 10 Mg Tablet, 10 MG PO HS, (Reported) Patient Home Medication List Home Medication List Reviewed: Yes Review of Systems Constitutional: no symptoms reported EENTM: no symptoms reported Respiratory: see HPI, cough, short of breath Cardiovascular: no symptoms reported; No chest pain; edema (CHRONIC/STABLE) Gastrointestinal: no symptoms reported Genitourinary: no symptoms reported Musculoskeletal: no symptoms reported Skin: other (PRESSURE ULCER ON BUTTOCKS/TAILBONE--HAS BEEN SEEN /TREATED BY HIS PCP FOR THIS PROBLEM) Psychiatric/Neurological: No Symptoms Reported Hematologic/Lymphatic: No Symptoms Reported Immunological/Allergic: no symptoms reported Past Seiwqom-Hnwacp-Ncdtan Hx Patient Social History Alcohol Use: Denies Use Recreational Drug Use: No Smoking Status: Former Smoker Type Used: Cigarettes 2nd Hand Smoke Exposure: No Recent Foreign Travel: No Contact w/Someone Who Travel: No Recent Infectious Disease Expo: No Recent Hopitalizations: No Immunizations Up To Date Tetanus Booster (TDap): Unknown Date of Pneumonia Vaccine: Mar 31, 2016 Date of Influenza Vaccine: Dec 19, 2016 Seasonal Allergies Seasonal Allergies: Yes Past Medical History Surgeries: Yes (RIGHT EYELID BASAL CELL CANCER) Abdominal, Adenoidectomy, Eye Surgery, Prostatectomy, Tonsillectomy Respiratory: Yes (O2 DEPENDENT AT 3L/NC CONTINUOUSLY) Pneumonia, Chronic Bronchitis, COPD, Emphysema Currently Using CPAP: No Currently Using BIPAP: No Cardiac: Yes Chronic Edema/Swelling, High Cholesterol, Hypertension Neurological: Yes Dementia Reproductive Disorders: No Sexually Transmitted Disease: No HIV/AIDS: No Genitourinary: Yes (PROSTATE CANCER > 10 YEARS AGO) Prostate Problems, Kidney Stones Gastrointestinal: Yes Abdominal Hernia, Gastroesophageal Reflux, Polyps, Hiatal Hernia Musculoskeletal: Yes (HAS CHRONIC GENERALIZED WEAKNESS AND FREQUENT FALLS, VERY POOR AMBULATION/MINIMALLY AMBULATORY--PT HAS POWER CHAIR AND WALKER, WHICH HE REFUSES TO USE AT HOME. 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 CHRONIC BLEPHARITIS ? ; SINUSITIS) Cataract Loss of Vision: Right Hearing Impairment: Denies Cancer: Yes (BASAL CELL CANCER RIGHT EYELID; PROSTATE SURGERY, NO CHEMO OR RADIATION) Prostate, Skin Did You Recieve Any Treatments: Yes What Type of Treatment Did You: Surgical Intervention Psychosocial: Yes Anxiety, Depression Integumentary: Yes (SKIN CANCER) Blood Disorders: No Adverse Reaction/Blood Tranf: No Family Medical History FH: breast cancer G8 SISTER Lung Disease Physical Exam Vital Signs Vital Signs - First Documented Capillary Refill : Less Than 3 Seconds General Appearance: no apparent distress, obese, other (MARKED KYPHOSIS, 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) HEENT: other (CHRONIC CHANGES OF RIGHT UPPER AND LOWER EYELIDS, AND RIGHT PUPIL. 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, no motor/sensory deficits, alert, normal mood/affect, oriented x 3 Skin: normal color, warm/dry, other (SHALLOW STAGE 2 DECUBITUS ULCER TO LEFT BUTTOCK--APPROXIMATELY 2 CM DIAMETER) Progress/Results/Core Measures Suspected Sepsis Recent Fever Within 48 Hours: No Infection Criteria Present: None New/Unexplained Altered Menta: No Sepsis Screen: No Definite Risk SIRS Temperature:100.4 Pulse: 86 Respiratory Rate: 20 Laboratory Tests 07/16/17 01:21: White Blood Count 7.0 Blood Pressure 125 /74 Mean: 91 Laboratory Tests 07/16/17 01:21: Creatinine 0.90, INR Comment 1.1, Platelet Count 214, Total Bilirubin 0.4 Results/Orders Lab Results Laboratory Tests Test 07/16/17 01:21 Range/Units White Blood Count 7.0 4.3-11.0 10^3/uL Red Blood Count 4.19 L 4.35-5.85 10^6/uL Hemoglobin 12.0 L 13.3-17.7 G/DL Hematocrit 37 L 40-54 % Mean Corpuscular Volume 88 80-99 FL Mean Corpuscular Hemoglobin 29 25-34 PG Mean Corpuscular Hemoglobin Concent 32 32-36 G/DL Red Cell Distribution Width 13.5 10.0-14.5 % Platelet Count 214 130-400 10^3/uL Mean Platelet Volume 9.2 7.4-10.4 FL Neutrophils (%) (Auto) 52 42-75 % Lymphocytes (%) (Auto) 31 12-44 % Monocytes (%) (Auto) 15 H 0-12 % Eosinophils (%) (Auto) 2 0-10 % Basophils (%) (Auto) 0 0-10 % Neutrophils # (Auto) 3.6 1.8-7.8 X 10^3 Lymphocytes # (Auto) 2.2 1.0-4.0 X 10^3 Monocytes # (Auto) 1.0 0.0-1.0 X 10^3 Eosinophils # (Auto) 0.2 0.0-0.3 10^3/uL Basophils # (Auto) 0.0 0.0-0.1 10^3/uL Prothrombin Time 13.8 12.2-14.7 SEC INR Comment 1.1 0.8-1.4 Activated Partial Thromboplast Time 31 24-35 SEC Sodium Level 138 135-145 MMOL/L Potassium Level 3.6 3.6-5.0 MMOL/L Chloride Level 103 98-107 MMOL/L Carbon Dioxide Level 22 21-32 MMOL/L Anion Gap 13 5-14 MMOL/L Blood Urea Nitrogen 11 7-18 MG/DL Creatinine 0.90 0.60-1.30 MG/DL Estimat Glomerular Filtration Rate > 60 BUN/Creatinine Ratio 12 Glucose Level 103 70-105 MG/DL Calcium Level 9.2 8.5-10.1 MG/DL Magnesium Level 2.1 1.8-2.4 MG/DL Total Bilirubin 0.4 0.1-1.0 MG/DL Aspartate Amino Transf (AST/SGOT) 43 H 5-34 U/L Alanine Aminotransferase (ALT/SGPT) 43 0-55 U/L Alkaline Phosphatase 73 40-136 U/L Troponin I < 0.30 <0.30 NG/ML B-Type Natriuretic Peptide < 10.0 <100.0 PG/ML Total Protein 6.9 6.4-8.2 GM/DL Albumin 4.2 3.2-4.5 GM/DL My Orders Orders - JOSHUA,ROBBY K DO Chest 1 View, Ap/Pa Only (07/16/17 00:48) Saline Lock/Iv-Start (07/16/17 00:52) Ekg Tracing (07/16/17 00:52) O2 (07/16/17 00:52) Monitor-Rhythm Ecg Trace Only (07/16/17 00:52) BNP (07/16/17 00:52) Cbc With Automated Diff (07/16/17 00:52) Comprehensive Metabolic Panel (07/16/17 00:52) Magnesium (07/16/17 00:52) Protime With Inr (07/16/17 00:52) Partial Thromboplastin Time (07/16/17 00:52) Troponin I (07/16/17 00:52) Rx-Mupirocin 2% Oint (Rx-Bactroban) (07/16/17 02:20) Vital Signs/I&O 07/16/17 07/16/17 00:28 00:28 Temp 100.4 Pulse 86 Resp 20 B/P (MAP) 125/74 (91) Pulse Ox 90 91 O2 Delivery Nasal Cannula Nasal Cannula O2 Flow Rate 2.00 3.00 Capillary Refill : Less Than 3 Seconds Blood Pressure Mean: 91 Progress Note : Progress Note NO COUGH OR DYSPNEA AT ANY TIME DURING ER STAY ECG Initial ECG Impression Date: Jul 16, 2017 Initial ECG Impression Time: 00:53 Initial ECG Rate: 77 Initial ECG Rhythm: Normal Sinus (LAFB) Initial ECG Impression: Nonspecific Changes, 1st Degree AV Block Initial ECG Comparisson: Unchanged Diagnostic Imaging Comments CXR--POOR INSPIRATION, CHRONIC/BIBASILAR ATELECTASIS--PENDING RADIOLOGIST REVIEW Reviewed: Reviewed by Me Departure Impression Primary Impression: COPD (chronic obstructive pulmonary disease) Additional Impressions: Oxygen dependent Decubitus ulcer of left buttock, stage 2 Disposition: 01 HOME, SELF-CARE Condition: Stable Departure-Patient Inst. Referrals: SALMA RAMIREZ DO (PCP) Primary Care Physician ASIM LINARES (Family) Primary Care Physician Patient Instructions: COPD Including Emphysema (DC), How to Prevent Pressure Ulcers, Pressure Sores (DC) Add. Discharge Instructions: CONTINUE ALL YOUR REGULAR MEDICATIONS PRESCRIBED FOLLOW UP WITH YOUR DR THIS WEEK FOR RECHECK All discharge instructions reviewed with patient and/or family. Voiced understanding. ROBBY LEWIS DO Jul 16, 2017 00:52
[2017-07-16 01:28] LABS: BASOPHILS % (AUTO) 0 % (0-10); EOSINOPHILS # (AUTO) 0.2 10^3/uL (0.0-0.3); EOSINOPHILS % (AUTO) 2 % (0-10); HEMATOCRIT 37 % (40-54); LYMPHOCYTES # (AUTO) 2.2 X 10^3 (1.0-4.0); LYMPHOCYTES % (AUTO) 31 % (12-44); MEAN CORPUSCULAR HEMOGLOBIN 29 PG (25-34); MEAN CORPUSCULAR HGB CONC 32 G/DL (32-36); MEAN CORPUSCULAR VOLUME 88 FL (80-99); MEAN PLATELET VOLUME 9.2 FL (7.4-10.4); MONOCYTES % (AUTO) 15 % (0-12); NEUTROPHILS # (AUTO) 3.6 X 10^3 (1.8-7.8); NEUTROPHILS % (AUTO) 52 % (42-75); PLATELET COUNT 214 10^3/uL (130-400); RED BLOOD COUNT 4.19 10^6/uL (4.35-5.85); RED CELL DISTRIBUTION WIDTH 13.5 % (10.0-14.5)
[2017-07-16 01:38] LABS: INR 1.1 (0.8-1.4); PROTHROMBIN TIME PATIENT 13.8 SEC (12.2-14.7)
[2017-07-16 01:54] LABS: ALANINE AMINOTRANSFERASE 43 U/L (0-55); ALBUMIN 4.2 GM/DL (3.2-4.5); ALKALINE PHOSPHATASE 73 U/L (40-136); BILIRUBIN,TOTAL 0.4 MG/DL (0.1-1.0); BUN/CREATININE RATIO 12; CALCIUM 9.2 MG/DL (8.5-10.1); CARBON DIOXIDE 22 MMOL/L (21-32); CHLORIDE 103 MMOL/L (98-107); GFR ESTIMATED > 60; GLUCOSE 103 MG/DL (70-105); MAGNESIUM 2.1 MG/DL (1.8-2.4); POTASSIUM 3.6 MMOL/L (3.6-5.0); SODIUM 138 MMOL/L (135-145); TOTAL PROTEIN 6.9 GM/DL (6.4-8.2)
[2017-07-16] MEDS ORDERED: RX-MUPIROCIN (BACTROBAN) 2% OINT 22 GM TUBE TOP STA (02:20)
[2017-07-16] MEDS ORDERED: RX-MUPIROCIN (BACTROBAN) 2% OINT 22 GM TUBE ONE (02:24)
[2017-07-16 02:34] VITALS: BP 115/71
--- NOTE | 2017-07-16 07:33 | Diagnostic Imaging Report ---
INDICATION: Cough and congestion. COMPARISON: 07/01/2017. FINDINGS: There continues to be bilateral basilar atelectasis. The heart is upper limits of normal. The upper lungs are clear. No evidence of pulmonary edema. No pneumothorax or pleural effusion. IMPRESSION: Persistent bibasilar atelectasis. Dictated by: Dictated on workstation # [id number]
[2017-09-17] MEDS ORDERED: TRAM50TA2 PO ×2 (11:09→11:39)
== END 2017-07-16 02:34 | disposition home or self-care (01) ==
LOC: EDUNIT# 00:24 → ER 00:25
DX: J44.9 Chronic obstructive pulmonary disease, unspecified (principal); L89.322 Pressure ulcer of left buttock, stage 2; F41.9 Anxiety disorder, unspecified; K21.9 Gastro-esophageal reflux disease without esophagitis; F03.90 Unspecified dementia, unspecified severity, without behavioral disturbance, psychotic disturbance, mood disturbance, and anxiety; E11.9 Type 2 diabetes mellitus without complications; F32.9 Major depressive disorder, single episode, unspecified; E78.00 Pure hypercholesterolemia, unspecified; R60.0 Localized edema; I10 Essential (primary) hypertension; Z99.81 Dependence on supplemental oxygen; Z85.828 Personal history of other malignant neoplasm of skin; Z85.46 Personal history of malignant neoplasm of prostate; Z87.01 Personal history of pneumonia (recurrent); Z90.89 Acquired absence of other organs; Z90.79 Acquired absence of other genital organ(s); Z98.890 Other specified postprocedural states; Z87.891 Personal history of nicotine dependence; Z79.51 Long term (current) use of inhaled steroids; Z79.52 Long term (current) use of systemic steroids; Z79.84 Long term (current) use of oral hypoglycemic drugs; Z87.19 Personal history of other diseases of the digestive system; Z88.5 Allergy status to narcotic agent; Z88.6 Allergy status to analgesic agent; Z88.8 Allergy status to other drugs, medicaments and biological substances
CPT/HCPCS: 36415; 71045; 80053; 83735; 83880; 84484; 85025; 85610; 85730; 93005; 93041

== ENCOUNTER 2017-07-29 13:36 | Emergency (ER) | payer MEDICARE, MEDICAID ==
[~2017-07-29] VITALS: Ht 182.9 cm; Wt 99.8 kg
[~2017-07-29 13:36] MED LIST changes: +BENA20TA2 PO; -BENA20TA7 PO; +CLON1TAB3 PO; -CLON1TAB4 PO; +IPRA3AMP IH; -IPRA3AMP31 IH
[2017-07-29 15:00] LABS: BASOPHILS % (AUTO) 0 % (0-10); EOSINOPHILS # (AUTO) 0.3 10^3/uL (0.0-0.3); EOSINOPHILS % (AUTO) 4 % (0-10); HEMATOCRIT 38 % (40-54); HEMOGLOBIN 12.4 G/DL (13.3-17.7); LYMPHOCYTES % (AUTO) 30 % (12-44); MEAN CORPUSCULAR HEMOGLOBIN 29 PG (25-34); MEAN CORPUSCULAR HGB CONC 33 G/DL (32-36); MEAN CORPUSCULAR VOLUME 90 FL (80-99); MEAN PLATELET VOLUME 10.1 FL (7.4-10.4); MONOCYTES % (AUTO) 15 % (0-12); NEUTROPHILS # (AUTO) 3.5 X 10^3 (1.8-7.8); NEUTROPHILS % (AUTO) 51 % (42-75); PLATELET COUNT 210 10^3/uL (130-400); RED BLOOD COUNT 4.25 10^6/uL (4.35-5.85); RED CELL DISTRIBUTION WIDTH 13.5 % (10.0-14.5); WHITE BLOOD COUNT 6.8 10^3/uL (4.3-11.0)
--- NOTE | 2017-07-29 15:01 | Diagnostic Imaging Report ---
Indication: Cough and shortness of breath. PA and lateral chest obtained at 2:47 hours p.m. compared to 07/16/2017. Findings: The heart is normal in size. There is an incidental hiatal hernia noted. There are chronic-appearing increased residual markings especially lung bases. There is no new consolidation or pneumothorax or pleural fluid. There is central vascular congestion without edema. Impression: Central vascular congestion without maranda edema. Chronic-appearing increased basilar markings with no acute infiltrate or acute abnormality seen. The hiatal hernia is incidentally noted. Dictated by: Dictated on workstation # [id number]
[2017-07-29 15:13] LABS: BUN/CREATININE RATIO 13; CALCIUM 9.6 MG/DL (8.5-10.1); CARBON DIOXIDE 23 MMOL/L (21-32); CHLORIDE 106 MMOL/L (98-107); CREATININE SERUM 0.88 MG/DL (0.60-1.30); GFR ESTIMATED > 60; GLUCOSE 126 MG/DL (70-105); POTASSIUM 4.2 MMOL/L (3.6-5.0); SODIUM 141 MMOL/L (135-145)
--- NOTE | 2017-07-29 15:31 | ED General ---
General Chief Complaint: Cough/Cold/Flu Symptoms Stated Complaint: COUGH Nursing Triage Note: ARRIVED VIA WC TO ROOM 01. COMPLAINS OF COUGH X3 DAYS. STATES HE THINKS HE IS GETTING PNEUMONIA AGAIN. STATES HE IS MORE SOA THEN USUSAL. Nursing Sepsis Screen: No Definite Risk Source of Information: Patient, Family, Old Records Exam Limitations: No Limitations History of Present Illness Date Seen by Provider: July 29, 2017 Time Seen by Provider: 14:04 Initial Comments This 81-year-old gentleman presents to the emergency room with concerns about cough that is worse at night. He reports producing some white sputum. He has no significant shortness of breath and no fever. He has had prior episodes of pneumonia and is concerned that may be occurring again today. He has had increased coughing over the past 3-4 days. Review of his chart notes a stress test on July 15 showing no ischemia and a normal ejection fraction. He does comment that he has had acid reflux in the past but is no longer taking a PPI. He does sleep in a hospital bed in an upright position. He does have COPD and uses breathing treatments. Allergies and Home Medications Allergies Coded Allergies: aspirin (Unverified Allergy, Unknown, 05/20/14) codeine (Verified Allergy, Unknown, 04/07/06) hydrocodone (Unverified Allergy, Unknown, 10/16/15) Uncoded Allergies: SSRI (Allergy, Unknown, 05/20/14) TCA (Allergy, Unknown, 05/20/14) Home Medications Amlodipine Besylate 10 Mg Tablet, 10 MG PO HS, (Reported) Atorvastatin Calcium 40 Mg Tablet, 40 MG PO HS, (Reported) Azithromycin 250 Mg Tablet, 250 MG PO DAILY@1700 Prescribed by: DARIN PINEDO on 01/27/17 1128 Benazepril HCl 20 Mg Tablet, 20 MG PO HS, (Reported) Cefpodoxime Proxetil 200 Mg Tablet, 200 MG PO BID Prescribed by: DARIN PINEDO on 01/27/17 1131 Chlorphen/Dm/Acetaminophen/GG 1 Each Tb.cp.seq, 1-2 TAB PO Q6H PRN for DRAINAGE, (Reported) Clonazepam 1 Mg Tablet, 1 MG PO TID, (Reported) Doxazosin Mesylate 4 Mg Tablet, 4 MG PO DAILY, (Reported) Fluticasone Propionate 16 Gm [place].susp, 2 SPRAYS NS DAILY, (Reported) Glipizide 5 Mg Tablet, 5 MG PO BID, (Reported) Glycerin/Propylene Glycol 15 Ml Drops, 1 DROP OU QID PRN for DRY EYES, (Reported ) Guaifenesin/Dextromethorphan 5 Ml Syrup, 5 ML PO TID, (Reported) Ipratropium/Albuterol Sulfate 3 Ml Ampul.neb, 3 ML IH TID, (Reported) Levocetirizine Dihydrochloride 5 Mg Tablet, 5 MG PO HS, (Reported) Metformin HCl 500 Mg Tablet, 250 MG PO BID, (Reported) TAKES 1/2 OF A (500 MG) TABLET Mineral Oil/Petrolatum,White 3.5 Gm Oint...g., OU BID, (Reported) Mirabegron 25 Mg Tab.er.24h, 25 MG PO DAILY, (Reported) Montelukast Sodium 10 Mg Tablet, 10 MG PO HS, (Reported) Multivitamin 1 Each Tablet, 1 TAB PO DAILY, (Reported) Ondansetron 4 Mg Tab.rapdis, 4 MG PO Q4H PRN for NAUSEA/VOMITING-1ST LINE Prescribed by: BOZENA WERNER on 05/02/17 184 Oseltamivir Phosphate 75 Mg Cap, 75 MG PO BID Prescribed by: BOZENA WERNER on 05/02/171839 Pantoprazole Sodium 40 Mg Tablet.dr, 40 MG PO DAILY, (Reported) Pantoprazole Sodium 40 Mg Tablet.dr, 40 MG PO DAILY Prescribed by: CEASAR CASTILLO on 07/29/17 1630 Prednisone 20 Mg Tab, 20 MG PO DAILY Prescribed by: DOMINGA TOLEDO on 04/10/17 1221 Pregabalin 100 Mg Capsule, 100 MG PO TID, (Reported) Ranitidine HCl 150 Mg Tablet, 150 MG PO HS, (Reported) Rivastigmine 1 Each Patch.td24, 4.6 MG TD DAILY, (Reported) Sucralfate 1 Gm Tablet, 1 GM PO QID, (Reported) Tramadol HCl 50 Mg Tablet, 50 MG PO BID PRN for PAIN-MODERATE, (Reported) Triamcinolone Acet 15 Gm Cr, TP BID PRN for BED SORES, (Reported) Vilazodone Hydrochloride 10 Mg Tablet, 10 MG PO HS, (Reported) Patient Home Medication List Home Medication List Reviewed: Yes Review of Systems Constitutional: no symptoms reported EENTM: no symptoms reported Respiratory: see HPI Cardiovascular: no symptoms reported Gastrointestinal: no symptoms reported Genitourinary: no symptoms reported Musculoskeletal: no symptoms reported Skin: no symptoms reported Psychiatric/Neurological: No Symptoms Reported Hematologic/Lymphatic: No Symptoms Reported Past Brxbkhh-Jkvpww-Mgfzmu Hx Patient Social History Alcohol Use: Denies Use Recreational Drug Use: No Smoking Status: Former Smoker Type Used: Cigarettes Former Smoker, Quit: Mar 31, 1966 2nd Hand Smoke Exposure: No Recent Foreign Travel: No Contact w/Someone Who Travel: No Recent Infectious Disease Expo: No Recent Hopitalizations: No Immunizations Up To Date Tetanus Booster (TDap): Unknown Date of Pneumonia Vaccine: Mar 31, 2016 Date of Influenza Vaccine: Dec 19, 2016 Seasonal Allergies Seasonal Allergies: Yes Past Medical History Surgeries: Yes (RIGHT EYELID BASAL CELL CANCER) Abdominal, Adenoidectomy, Eye Surgery, Prostatectomy, Tonsillectomy Respiratory: Yes (O2 DEPENDENT AT 3L/NC CONTINUOUSLY) Pneumonia, Chronic Bronchitis, COPD, Emphysema Currently Using CPAP: No Currently Using BIPAP: No Cardiac: Yes Chronic Edema/Swelling, High Cholesterol, Hypertension Neurological: Yes Dementia Reproductive Disorders: No Sexually Transmitted Disease: No HIV/AIDS: No Genitourinary: Yes (PROSTATE CANCER > 10 YEARS AGO) Prostate Problems, Kidney Stones Gastrointestinal: Yes Abdominal Hernia, Gastroesophageal Reflux, Polyps, Hiatal Hernia Musculoskeletal: Yes Arthritis Endocrine: Yes Diabetes, Non-Insulin dep HEENT: Yes Cataract Loss of Vision: Right Hearing Impairment: Denies Cancer: Yes (BASAL CELL CANCER RIGHT EYELID; PROSTATE SURGERY, NO CHEMO OR RADIATION) Prostate, Skin Did You Recieve Any Treatments: Yes What Type of Treatment Did You: Surgical Intervention Psychosocial: Yes Anxiety, Depression Integumentary: Yes (SKIN CANCER) Blood Disorders: No Adverse Reaction/Blood Tranf: No Family Medical History FH: breast cancer G8 SISTER Lung Disease Physical Exam Vital Signs Vital Signs - First Documented 07/29/17 13:44 Temp 97.1 Pulse 87 Resp 18 B/P (MAP) 128/81 (97) Pulse Ox 95 O2 Delivery Nasal Cannula O2 Flow Rate 3.00 Capillary Refill : Less Than 3 Seconds General Appearance: No Apparent Distress, WD/WN HEENT: Normal ENT Inspection Neck: Other (arthritic distortion of the thoracic and cervical spine) Respiratory: Lungs Clear, Normal Breath Sounds, No Accessory Muscle Use, No Respiratory Distress Cardiovascular: Regular Rate, Rhythm, No Edema, No Murmur Gastrointestinal: Non Tender, Soft Extremity: Non Tender, Pedal Edema Neurologic/Psychiatric: Alert, Oriented x3, No Motor/Sensory Deficits, Normal 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, 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 Skin: Normal Color, Warm/Dry Progress/Results/Core Measures Suspected Sepsis Recent Fever Within 48 Hours: No Infection Criteria Present: Suspected New Infection New/Unexplained Altered Menta: No Sepsis Screen: No Definite Risk SIRS Temperature:97.1 Pulse: 87 Respiratory Rate: 18 Laboratory Tests 07/29/17 14:00: White Blood Count 6.8 Blood Pressure 128 /81 Mean: 97 Laboratory Tests 07/29/17 14:00: Creatinine 0.88, Platelet Count 210 Results/Orders Lab Results Laboratory Tests Test 07/29/17 14:00 Range/Units White Blood Count 6.8 4.3-11.0 10^3/uL Red Blood Count 4.25 L 4.35-5.85 10^6/uL Hemoglobin 12.4 L 13.3-17.7 G/DL Hematocrit 38 L 40-54 % Mean Corpuscular Volume 90 80-99 FL Mean Corpuscular Hemoglobin 29 25-34 PG Mean Corpuscular Hemoglobin Concent 33 32-36 G/DL Red Cell Distribution Width 13.5 10.0-14.5 % Platelet Count 210 130-400 10^3/uL Mean Platelet Volume 10.1 7.4-10.4 FL Neutrophils (%) (Auto) 51 42-75 % Lymphocytes (%) (Auto) 30 12-44 % Monocytes (%) (Auto) 15 H 0-12 % Eosinophils (%) (Auto) 4 0-10 % Basophils (%) (Auto) 0 0-10 % Neutrophils # (Auto) 3.5 1.8-7.8 X 10^3 Lymphocytes # (Auto) 2.0 1.0-4.0 X 10^3 Monocytes # (Auto) 1.0 0.0-1.0 X 10^3 Eosinophils # (Auto) 0.3 0.0-0.3 10^3/uL Basophils # (Auto) 0.0 0.0-0.1 10^3/uL Sodium Level 141 135-145 MMOL/L Potassium Level 4.2 3.6-5.0 MMOL/L Chloride Level 106 98-107 MMOL/L Carbon Dioxide Level 23 21-32 MMOL/L Anion Gap 12 5-14 MMOL/L Blood Urea Nitrogen 11 7-18 MG/DL Creatinine 0.88 0.60-1.30 MG/DL Estimat Glomerular Filtration Rate > 60 BUN/Creatinine Ratio 13 Glucose Level 126 H 70-105 MG/DL Calcium Level 9.6 8.5-10.1 MG/DL C-Reactive Protein High Sensitivity 0.47 0.00-0.50 MG/DL Micro Results Microbiology 07/29/17 Influenza Types A,B Antigen ([facility]) - Final, Complete My Orders Orders - CEASAR LUCAS MD Chest Pa/Lat (2 View) (07/29/17 14:04) Influenza A And B Antigens (07/29/17 14:04) Saline Lock/Iv-Start (07/29/17 14:56) Basic Metabolic Panel (07/29/17 14:56) Cbc With Automated Diff (07/29/17 14:56) Hs C Reactive Protein (07/29/17 14:56) Vital Signs/I&O Capillary Refill : Less Than 3 Seconds Blood Pressure Mean: 97 Progress Note : Progress Note No acute abnormality was found on exam or workup today. Recent stress test shows no evidence of congestive failure. We talked about a variety of things that he can try to reduce his cough. He can try taking allergy medications given the time of year and higher pollen count. He can resume PPI as GERD may be contributing to his cough. He may also discuss holding his ELLEN inhibitor with his primary care provider as that may additionally be a cause of cough. Diagnostic Imaging Diagonstic Imaging: Xray Plain Films/CT/US/NM/MRI: chest Comments Chest x-ray viewed by me and report reviewed. See report below: NAME: ISABELA ESPINOZA MED REC#: [id number] PT STATUS: DEP ER : 1935 PHYSICIAN: CEASAR LUCAS MD ADMIT DATE: 07/29/17/ER Signed Date of Exam: 07/29/17 CHEST PA/LAT (2 VIEW) Indication: Cough and shortness of breath. PA and lateral chest obtained at 2:47 hours p.m. compared to 07/16/2017. Findings: The heart is normal in size. There is an incidental hiatal hernia noted. There are chronic-appearing increased residual markings especially lung bases. There is no new consolidation or pneumothorax or pleural fluid. There is central vascular congestion without edema. Impression: Central vascular congestion without maranda edema. Chronic-appearing increased basilar markings with no acute infiltrate or acute abnormality seen. The hiatal hernia is incidentally noted. Dictated by: Dictated on workstation # [id number] Dict: 07/29/17 1434 Trans: 07/29/17 1638 Interpreted by: STEFFEN JORGENSEN MD Electronically signed by: STEFFEN JORGENSEN MD 07/29/17 1638 Departure Impression Primary Impression: Nocturnal cough Disposition: HOME, SELF-CARE Condition: Stable Departure-Patient Inst. Decision time for Depature: 15:28 Referrals: SALMA RAMIREZ DO (PCP) Primary Care Physician ASIM LINARES (Family) Primary Care Physician Patient Instructions: Cough, Adult (DC) Add. Discharge Instructions: The exact cause of your cough is uncertain at this time but does not appear to be related to pneumonia or congestive heart failure. Some possibilities include acid reflux, allergies, or medication effect. Try restarting Protonix as previously prescribed. You may also try an [id number] allergy medication such as Claritin ( loratadine), Zyrtec (cetirizine), etc. Benazepril also could potentially be a trigger for cough. If the above measures do not resolve your cough, discussed changing this medication with your doctor. Return to care if symptoms are worsening. All discharge instructions reviewed with patient and/or family. Voiced understanding. Scripts Pantoprazole Sodium (Protonix) 40 Mg Tablet. 40 MG PO DAILY, #30 TAB Prov: CEASAR LUCAS MD 07/29/17 Copy Copies To 1: SALMA RAMIREZ JOSHUA T MD July 29, 2017 15:30
[2017-07-29 15:50] VITALS: BP 117/58
[2017-07-29] MEDS ORDERED: PANT40TA2 PO (16:30)
[2017-09-17] MEDS ORDERED: TRAM50TA2 PO ×2 (11:09→11:39)
== END 2017-07-29 15:50 | disposition home or self-care (01) ==
LOC: EDUNIT# 13:36 → ER 13:38
DX: R05 Cough (principal); I10 Essential (primary) hypertension; E78.00 Pure hypercholesterolemia, unspecified; F03.90 Unspecified dementia, unspecified severity, without behavioral disturbance, psychotic disturbance, mood disturbance, and anxiety; K21.9 Gastro-esophageal reflux disease without esophagitis; F41.9 Anxiety disorder, unspecified; F32.9 Major depressive disorder, single episode, unspecified; E11.9 Type 2 diabetes mellitus without complications; J43.9 Emphysema, unspecified; Z87.442 Personal history of urinary calculi; Z88.6 Allergy status to analgesic agent; Z88.5 Allergy status to narcotic agent; Z85.46 Personal history of malignant neoplasm of prostate; Z79.84 Long term (current) use of oral hypoglycemic drugs; Z87.891 Personal history of nicotine dependence; Z85.828 Personal history of other malignant neoplasm of skin; Z80.3 Family history of malignant neoplasm of breast
CPT/HCPCS: 36415; 71046; 80048; 85025; 86141; 87804

== ENCOUNTER → 2017-08-01 | Outpatient (CLI) | payer MEDICARE, MEDICAID ==
[~2017-08-01] MED LIST changes: +CEPH-507 PO; +CLOP75TA28 PO; +FLUC150T PO; +LORA10TA76 PO; +ONDA4TAB8 SL; +PANT40TA2 PO
== END ==
LOC: WOUNDCARE 10:02
PROVIDERS: ATTEND Surgery
DX: L89.322 Pressure ulcer of left buttock, stage 2 (principal); L22 Diaper dermatitis; R54 Age-related physical debility; R32 Unspecified urinary incontinence
CPT/HCPCS: 99213

== ENCOUNTER 2017-08-12 15:46 | Emergency (ER) | payer MEDICARE, MEDICAID ==
[~2017-08-12] VITALS: Ht 182.9 cm; Wt 90.7 kg
[~2017-08-12 15:46] MED LIST changes: -CEPH-507 PO; -CLOP75TA28 PO; -FLUC150T PO; -LORA10TA76 PO; -ONDA4TAB8 SL
--- OUTSIDE RECORDS SUMMARY | 2017-08-12 15:56 | XMS REPORT ---
Author Author ASIM LINARES 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 Active 6409418 Problem 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 Active 856112529 Problem Mixed hyperlipidemia E78.2 Active 057246201 Problem Chronic obstructive pulmonary disease, unspecified COPD type J44.9 Active 28891695 Problem Gastroesophageal reflux disease without esophagitis K21.9 Active 457533876 Problem Chronic GERD K21.9 Active 349825682 Problem Type 2 diabetes mellitus with diabetic neuropathy, without long-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 Active 42045658 Problem Allergic rhinitis, unspecified allergic rhinitis trigger, unspecified rhinitis seasonality J30.9 Active 81133107 Problem Chronic pain syndrome G89.4 Active 041256813 Problem Osteoarthritis of both knees, unspecified osteoarthritis type M17.0 Active 034194253 ALLERGIES Substance Reaction Event Type Date Status Hydrocodone-Acetaminophen Unknown Drug Allergy Dec, Active Codeine Sulfate Unknown Drug Allergy Dec, Active Aspirin Unknown Drug Allergy Dec, Active ENCOUNTERS Encounter Location Date Diagnosis [facility] [address] [facility] [id number] [address] July, [facility] [id number] [address] 8436 July, [facility] [id number] [address] 0967 July, [facility] [id number] [place] [address] 69299- 5415 Jun, Chronic pain syndrome G89.4 [place] [address] 08079- 9166 Jun, [facility] [address] 29884- 8551 Jun, [place] [address] 49595- 2457 Jun, 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 [place] [address] 95448- 8802 Jun, [place] [address] 99965- 9887 Jun, Gastroesophageal reflux disease without esophagitis K21.9 [place] [address] 99982- 0181 Jun, Allergic rhinitis, unspecified allergic rhinitis trigger, unspecified rhinitis seasonality J30.9 [place] [id number] [place] [address] 78845- 7116 Jun, Chronic pain syndrome G89.4 [place] [address] 74760- 5023 May, [place] [id number] [place] [address] 16281- 1421 May, COPD with acute exacerbation J44.1 [place] [address] 21081- 7894 14 May, 2017 Type 2 diabetes mellitus with diabetic neuropathy, without long-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 ; COPD with acute exacerbation J44.1 ; Hypoxia R09.02 ; Chronic pain syndrome G89.4 ; Yeast dermatitis B37.2 ; 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 and 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 [place] [address] 97479- 0016 May, [facility] [address] [address] 2546 May, Chronic pain syndrome G89.4 [facility] [address] [address] 2546 May, [facility] [address] [address] 2546 May, [facility] [id number] [place] [address] 66343 2546 May, Mixed hyperlipidemia E78.2 [facility] [id number] [place] [address] 97714- 5826 May, Chronic pain syndrome G89.4 [facility] [address] [address]- 0306 May, Anxiety F41.9 and Chronic pain syndrome G89.4 [facility] [address] [address]- 0446 Mar, [facility] [address] [address]- 5806 Mar, [facility] [address] [address]- 8106 Mar, [facility] [address] [address]- 7188 Mar, [facility] [address] [address] 2546 Mar, [facility] [address] [address]- 2546 Mar, Anxiety F41.9 and Chronic pain syndrome G89.4 [facility] [address] [address]- 2546 Mar, Medicare annual wellness visit, initial [...] Hiatal hernia K44.9 and Actinic keratosis L57.0 [facility] [address] 39545- 7109 Mar, [facility] [address] 93956- 5958 Mar, Chronic pain syndrome G89.4 [facility] [address] 83684- 8815 Feb, [facility] [address] 78215- 9251 Feb, Chronic pain syndrome G89.4 [facility] [id number] [place] [address] 12490- 6054 Feb, [facility] [address] 60273- 3932 Feb, [facility] [id number] [place] [address] 46388- 5599 Feb, Anxiety F41.9 [facility] [address] 04573- 2416 Feb, [facility] [id number] [place] [address] 18419- 2808 Feb, Chronic pain syndrome G89.4 [facility] [id number] [place] [address] 84387- 8837 Jan, Essential hypertension I10 [facility] [address] 18993- 8005 Jan, Chronic pain syndrome G89.4 [facility] [id number] [place] [address] 58208- 7288 Jan, [place] [address] 95740- 8393 Jan, Anxiety F41.9 [place] [address] 94883- 2148 Jan, Encounter for immunization Z23 and Community acquired pneumonia, unspecified laterality J18.9 [place] [address] 53833- 8307 Jan, Type 2 diabetes mellitus with diabetic neuropathy, without long-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 [place] [address] 33992- 0316 Dec, Anxiety F41.9 and Chronic pain syndrome G89.4 [place] [address] 73280- 1174 Dec, Chronic pain syndrome G89.4 and Essential hypertension I10 [place] [address] 25178- 1626 Dec, [place] [id number] [place] [address] 05877- 3423 Dec, Anxiety F41.9 [place] [id number] [place] [address] 09048- 7322 Dec, [place] [id number] [place] [address] 16572- 8995 Dec, Type 2 diabetes mellitus with diabetic neuropathy, without long-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 ; Lactic acidosis E87.2 ; Chronic obstructive pulmonary disease, unspecified COPD type J44.9 and Encounter for immunization Z23 [facility] [id number] [place] [address] 62675- 2945 Dec, Chronic pain syndrome G89.4 [place] [address] [place] [address]- 3787 28 Nov, 2016 [facility] [id number] [place] [address] 16456- 0997 Nov, Chronic pain syndrome G89.4 [facility] [id number] [place] [address] 19306- 0415 Nov, [facility] [id number] [place] [address] 30986- 5050 Nov, [facility] [id number] [place] [address] 32101- 1909 15 Nov, 2016 Anxiety F41.9 [facility] [id number] [place] [address] 19166- 7692 11 Nov, 2016 Anxiety F41.9 [facility] [id number] [place] [address] 80540- 9272 08 Nov, 2016 [facility] [id number] [place] [address] 59702- 1690 05 Nov, 2016 [facility] [id number] [place] [address] 71228- 2650 Nov, [facility] [id number] [place] [address] 36065- 3024 Oct, [facility] [id number] [place] [address] 42168- 2112 Oct, [facility] [id number] [place] [address] 06672- 5521 Oct, [facility] [id number] [place] [address] 35060- 5038 Oct, Essential hypertension I10 and Chronic pain syndrome G89.4 [facility] [id number] [place] [address] 42392- 5249 Oct, Anxiety F41.9 [facility] [id number] [place] [address] 40319- 2541 09 Oct, 2016 [facility] [address] [address]- 2889 Oct, Chronic pain syndrome G89.4 [facility] [id number] [place] [address] 71970 -0781 Oct, Sore throat J02.9 and Acute nasopharyngitis (common cold) J00 [facility] [id number] [place] [address] 64667- 9625 Sep, [facility] [id number] [place] [address] 82255- 2295 Sep, COPD exacerbation J44.1 [facility] [id number] [place] [address] 71998- 8446 Sep, Chronic pain syndrome G89.4 [facility] [id number] [place] [address] 65393- 5339 Sep, Essential hypertension I10 [facility] [id number] [place] [address] 08968- 1386 Sep, [facility] [id number] [place] [address] 23338- 5814 Sep, [facility] [id number] [place] [address] 12331- 9483 Sep, Anxiety F41.9 [facility] [id number] [place] [address] 91783- 9603 Sep, Chronic pain syndrome G89.4 [facility] [id number] [place] [address] 01716- 1430 Sep, [facility] [id number] [place] [address] 79135- 3069 Aug, Acute seasonal allergic rhinitis, unspecified trigger J30.2 ; Hiatal hernia K44.9 and Chronic pain syndrome G89.4 [facility] [id number] [place] [address] 81160- 5643 Aug, [facility] [address] [address]- 6954 Aug, [facility] [id number] [place] [address] 24697- 3044 Aug, Chronic obstructive pulmonary disease, unspecified COPD type J44.9 [facility] [id number] [place] [address] 11996- 6323 14 Aug, 2016 Anxiety F41.9 [facility] [id number] [place] [address] 76469- 7381 08 Aug, 2016 Chronic pain syndrome G89.4 [facility] [id number] [place] [address] 17063- 8247 07 Aug, 2016 Hiatal hernia K44.9 and Actinic keratosis L57.0 [facility] [id number] [place] [address] 10898- 5366 Aug, [facility] [id number] [place] [address] 84028- 7448 Aug, Anxiety F41.9 [facility] [id number] [place] [address] 94585- 6493 July, [facility] [id number] [place] [address] 85236- 5291 July, Hiatal hernia K44.9 [facility] [id number] [place] [address] 32711- 7963 July, [facility] [id number] [place] [address] 13841- 4815 July, Anxiety F41.9 and Chronic pain syndrome G89.4 [facility] [id number] [place] [address] 35496- 5130 July, [facility] [id number] [place] [address] 61531- 1735 Jun, Chronic pain syndrome G89.4 [facility] [id number] [address]- 1219 Jun, Chronic pain syndrome G89.4 [facility] [id number] [place] [address] 80399- 0422 Jun, [facility] [id number] [place] [address] 38379- 1883 Jun, Anxiety F41.9 [facility] [id number] [place] [address] 69706- 8542 Jun, Allergic rhinitis, unspecified allergic rhinitis trigger, unspecified rhinitis seasonality J30.9 [facility] [id number] [place] [address] 71577- 8128 Jun, [facility] [id number] [place] [address] 32263- 1047 May, Chronic pain syndrome G89.4 [facility] [id number] [place] [address] 01170- 6303 May, [facility] [id number] [place] [address] 65064- 2931 May, [facility] [id number] [place] [address] 73967- 7536 May, Anxiety F41.9 [facility] [id number] [place] [address] 77948- 3397 May, Type 2 diabetes mellitus with diabetic [...] Anxiety F41.9 and Chronic pain syndrome G89.4 [facility] [id number] [place] [address] 75537- 5976 May, Essential hypertension I10 ; Type 2 diabetes mellitus with diabetic neuropathy, without long-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 ; Mixed hyperlipidemia E78.2 ; Chronic obstructive pulmonary disease, unspecified COPD type J44.9 and Chronic GERD K21.9 [place] [id number] [place] [address] 37783- 6930 May, [place] [id number] [place] [address] 85459- 8795 May, [place] [address] 14130- 6403 May, Type 2 diabetes mellitus with diabetic neuropathy, without long-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 [place] [address]- 2610 May, Dementia without behavioral disturbance, unspecified dementia type F03.90 [place] [address] 80998- 2773 May, Type 2 diabetes mellitus with diabetic neuropathy, without long-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 ; Essential hypertension I10 ; Mixed hyperlipidemia E78.2 ; Chronic obstructive pulmonary disease, unspecified COPD type J44.9 ; Chronic GERD K21.9 and Osteoarthritis of both knees, unspecified osteoarthritis type M17.0 [place] [id number] [place] [address] 14664- 7080 May, [place] [id number] [place] [address] 33953- 0195 May, [place] [id number] [place] [address] 50455- 2118 May, Anxiety F41.9 and Unspecified symptoms and signs involving cognitive functions and awareness R41.9 [place] [id number] [place] [address] 55510- 0460 May, [place] [id number] [place] [address] 16982- 8206 May, Type 2 diabetes mellitus with diabetic neuropathy, without long-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 ; Anxiety F41.9 and Chronic obstructive pulmonary disease, unspecified COPD type J44.9 [place] [id number] [place] [address] 52045- 6981 May, [facility] [id number] [place] [address] 54970- 5902 May, [place] [address] 39770- 5814 May, [place] [id number] [place] [address] 98134- 2096 May, Chronic obstructive pulmonary disease, unspecified COPD type J44.9 [place] [id number] [place] [address] 40320- 2044 Mar, [place] [address] 02711- 7690 Mar, Arthritis of both knees M19.90 [place] [id number] [place] [address] 28928- 5463 Mar, Type 2 diabetes mellitus with diabetic neuropathy, without long-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 [place] [id number] [place] [address] 37902- 4100 Mar, [place] [id number] [place] [address] 43105- 4817 Mar, Neck pain M54.2 and Weakness generalized R53.1 [place] [id number] [place] [address] 27472- 8413 Mar, [place] [address] 68713- 0420 Mar, Cervicalgia M54.2 and Impacted cerumen of both ears H61.23 [place] [id number] [place] [address] 27910- 5097 Mar, [place] [id number] [place] [address] 22365- 3205 Mar, Type 2 diabetes mellitus with diabetic neuropathy, without long-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 [facility] [address] [address]- 0774 29 Feb, 2016 [facility] [address] [address]- 8835 Feb, Hypoxia R09.02 [facility] [id number] [place] [address] 28114- 0992 Feb, [facility] [id number] [place] [address] 97442- 5792 Feb, [facility] [id number] [place] [address] 98503- 8725 Feb, [facility] [id number] [place] [address] 37399- 6717 16 Feb, 2016 Type 2 diabetes mellitus with diabetic neuropathy, without long-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 [facility] [address] [address]- 5160 15 Feb, 2016 Osteoarthritis of both knees, unspecified osteoarthritis type M17.0 [facility] [address] [address]- 0613 14 Feb, 2016 [facility] [address] [address]- 6521 Feb, [facility] [address] [address]- 9077 09 Feb, 2016 [facility] [address] [address]- 0853 15 Jan, 2016 [facility] [id number] [place] [address] 81111- 9381 15 Jan, 2016 [facility] [address] [address]- 9514 14 Jan, 2016 [facility] [address] 78480- 2752 14 Jan, 2016 [place] [address] 18493- 5067 Jan, Tinea pedis of both feet B35.3 [place] [address] 19834- 9556 Jan, Type 2 diabetes mellitus with diabetic [...] seasonality J30.9 and Encounter for immunization Z23 [place] [address] 82170- 2603 Jan, [place] [address] 14262- 1558 Jan, [place] [address] 63231- 9668 Dec, [facility] [address] 21578- 6420 Dec, [facility] [address] 42774 -6340 Dec, Unspecified asthma with (acute) exacerbation J45.901 and Chronic obstructive pulmonary disease with (acute) exacerbation J44.1 [place] [address] 88560- 5240 Dec, Arthritis of both knees M19.90 and Acute medial meniscus tear, right, initial encounter S83.241A [place] [address] 69167- 9318 Dec, [facility] [address] [address]- 3697 Dec, [facility] [id number] [place] [address] 31424- [phone] Dec, [facility] [id number] [place] [address]- [phone] Dec, [facility] [address] [id number] [place] [address]- [address]5 Dec, History of pneumonia Z87.01 [facility] [address] [id number] [place] [address] [phone]- [address] Dec, [facility] [address] [id number] [place] [id number] Dec, [facility] [id number] [place] [address]- [address] Dec, [facility] [address] [id number] [place] [address] [phone]- [address] Dec, [facility] [id number] [place] [phone]- [phone] Dec, [facility] [id number] [place] [address] 43168- [address] Dec, [facility] [id number] [place] [address]- [phone] Nov, Cough R05 and Pneumonia due to infectious organism, unspecified laterality, unspecified part of lung J18.9 [facility] [id number] [address] Nov, [facility] [id number] [place] [address]52- [phone] Nov, Type 2 diabetes mellitus with diabetic [...] allergic rhinitis trigger, unspecified rhinitis seasonality J30.9 [facility] [address] [facility] [id number] [place] [address] Nov, 2015 IMMUNIZATIONS Vaccine Route Administration Date Status FLUARIX QUAD (3 AND UP) 2016 IM Intramuscular Jan 01, 2017 Administered SOCIAL HISTORY Never Assessed REASON FOR VISIT Pain management (chronic)---DBennettRN, [facility] f/u pneumonia, finished azithromycin , did not take prednisone d/t hyperglycemia PLAN OF CARE Activity Details Follow Up 3 Months, prn or pending lab Reason:DM pain VITAL SIGNS Height 72 in 2017-01-01 Weight 238 lbs 2017-01-01 Temperature 97.6 degrees Fahrenheit 2017-01-01 Heart Rate 86 bpm 2017-01-01 Respiratory Rate 18 2017-01-01 BMI 32.28 kg/m2 2017-01-01 Blood pressure systolic 127 mmHg 2017-01-01 Blood pressure diastolic 68 mmHg 2017-01-01 MEDICATIONS Medication Instructions Dosage Frequency Start Date End Date Duration Status GlipiZIDE 5 mg Orally twice a day 1 tablet 12h 30 Active MiraLax - Orally once daily as needed 1 packet mixed with 8 ounces of fluid July, 30 day(s) Active Pantoprazole Sodium 40 TAKE ONE TABLET BY MOUTH DAILY 30 Active Knee Brace/Hinged L/XL - as directed May, Active Ranitidine HCl 150 MG 1 tablet at bedtime Jun, 30 day(s) Active Exelon 4.6 MG/24HR APPLY ONE PATCH TO HAIR-FREE AREA ABOVE THE WAIST AND CHANGE EVERY 24 HOURS Active Spiriva HandiHaler 18 MCG Inhalation Once a day 1 capsule 24h Active Tylenol PM Extra Strength 500-25 MG Orally Once a day 1 tablet at bedtime as needed 24h Active Symbicort 80-4.5 MCG/ACT Inhalation Twice a day 2 puffs 12h Active Coricidin HBP Day/Night Cold 10-20 &15-200-2 MG Active Atorvastatin Calcium 40 mg Orally Once a day 1 tablet 24h Active Clonazepam 1 MG Orally 3x a day prn must last 28 Days 1 tablet Active PredniSONE 20 mg Orally Once a day 1 tablet 24h Dec, Dec, 05 days Active Cetirizine HCl 10 MG Orally Once a day 1 tablet 24h Active Amlodipine Besylate 10 mg Orally Once a day 1 tablet 24h Active Albuterol Sulfate (2.5 MG/3ML) 0.083% Inhalation every 4 hours as needed 3 ml Active Lyrica 100 mg Orally Three times a day 1 capsule 8h Active Montelukast Sodium 10 mg Orally Once a day 1 tablet in the evening 24h 30 days Active Levocetirizine Dihydrochloride 5 mg Orally Once a day 1 tablet in the evening 24h 30 days Active Oxygen 3 L by inhalation route as directed as directed Feb, Active Doxazosin Mesylate 4 MG Orally Once a day 1 tablet 24h Active Myrbetriq 25 MG Orally Once a day 1 tablet 24h Active Benazepril HCl 20 mg Orally Once a day 1 tablet 24h 30 Active Triamcinolone Acetonide 0.1 % Externally Twice a day to as needed 1 application to affected area Jan, Active Tramadol HCl 50 mg Orally every 12 hrs must last 28 days 1 tablet as needed Active Fluticasone Propionate 50 MCG/ACT Nasally Once a day 1 spray in each nostril 24h Aug, 30 day(s) Active Viibryd 10 mg Orally Once a day 1 tablet with food 24h Active RESULTS Name Result Date Reference Range A1C (IN HOUSE) 2017-01-01 A1C IN HOUSE 6.0 4.3 - 5.6 % Previous A1c 5.8 Lot [id number] Exp date CMP 2017-01-01 Glucose, Serum 87 65-99 BUN 9 8-27 Creatinine, Serum 0.78 0.76-1.27 eGFR If NonAfricn Am 85 >59 eGFR If Africn Am 98 >59 BUN/Creatinine Ratio 12 10-24 Sodium, Serum 143 134-144 Potassium, Serum 4.3 3.5-5.2 Chloride, Serum 102 96-106 Carbon Dioxide, Total 24 18-29 Calcium, Serum 9.2 8.6-10.2 Protein, Total, Serum 6.8 6.0-8.5 Albumin, Serum 4.3 3.5-4.7 Globulin, Total 2.5 1.5-4.5 A/G Ratio 1.7 1.2-2.2 Bilirubin, Total 0.4 0.0-1.2 Alkaline Phosphatase, S 73 39-117 AST (SGOT) 23 0-40 ALT (SGPT) 22 0-44 PROCEDURES Procedure Date Ordered Result Body Site GLYCATED HEMOGLOBIN TEST Jan 01, 2017 [facility] Jan 01, 2017 FLUARIX QUAD (3 & UP)-GSK-2015 Jan 01, 2017 VENIPUNCT, ROUTINE* Jan 01, 2017 [facility]LY [facility] VISIT ESTABLISHED PATIENT Jan 01, 2017 SINGLE IMMUNIZATION ADMIN Jan 01, 2017 INSTRUCTIONS MEDICATIONS ADMINISTERED No Known Medications MEDICAL (GENERAL) HISTORY Type Description Date Medical History hypertension Medical History chronic obstructive pulmonary disease (COPD)-wears 2L O2 per [place], uses [place] for home O2 Medical History Arthritis-knees and [...] abdomen 2000 Surgical History hiatal hernia repair 2008 Surgical History cataracts 2010 Surgical History wrist fracture 2003 Surgical History TURP 2003 Surgical History EGD Colonoscopy [facility] 06/06/2016 Hospitalization History TIA, [facility] 2014 Hospitalization History COPD exacerbation--[facility] 12/27/2015 [facility] History [facility] - fall 02/2016 Hospitalization History [facility] pneumonia 11/2016 Hospitalization History COPD exacerbation - Dr Hartley Attending 12/2016 Hospitalization History Cough- [facility] [place] 04/10/2017
--- OUTSIDE RECORDS SUMMARY | 2017-08-12 15:57 | XMS REPORT ---
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 Active 8103243 Problem 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 Active 182442189 Problem Mixed hyperlipidemia E78.2 Active 868167000 Problem Chronic obstructive pulmonary disease, unspecified COPD type J44.9 Active 41907171 Problem Gastroesophageal reflux disease without esophagitis K21.9 Active 564465334 Problem Chronic GERD K21.9 Active 261946967 Problem Type 2 diabetes mellitus with diabetic neuropathy, without long-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 Active 37116504 Problem Allergic rhinitis, unspecified allergic rhinitis trigger, unspecified rhinitis seasonality J30.9 Active 56977084 Problem Chronic pain syndrome G89.4 Active 645799559 Problem Osteoarthritis of both knees, unspecified osteoarthritis type M17.0 Active 470349521 ALLERGIES No Information ENCOUNTERS Encounter Location Date Diagnosis [facility] [id number] [place] [address] 17633- 0783 Jun, [facility] [id number] [place] [address] 44338- 6337 Jun, 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 [facility] [address] [place] [address] 87441- 4009 Jun, [facility] [id number] [address] 3804 Jun, Gastroesophageal reflux disease without esophagitis K21.9 [facility] [id number] [place] [address] 92169- 5884 04 Jun, 2017 Allergic rhinitis, unspecified allergic rhinitis trigger, unspecified rhinitis seasonality J30.9 [facility] [id number] [place] [address] 92312- 5066 Jun, Chronic pain syndrome G89.4 [facility] [address] 74248- 3899 May, [facility] [id number] [place] [address] 14442- 0386 May, COPD with acute exacerbation J44.1 [facility] [address] 54190- 2068 14 May, 2017 Type 2 diabetes mellitus with diabetic neuropathy, without long-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 ; COPD with acute exacerbation J44.1 ; Hypoxia R09.02 ; Chronic pain syndrome G89.4 ; Yeast dermatitis B37.2 ; 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 and 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 [facility] [address] 62891- 5073 May, [facility] [id number] [place] [address] 14667- 1466 May, Chronic pain syndrome G89.4 [facility] [id number] [place] [address] 63471- 3780 May, [facility] [id number] [place] [address] 33158- 2722 May, [facility] [address] 61053- 5417 May, Mixed hyperlipidemia E78.2 [facility] [id number] [place] [address] 66096- 3439 15 May, 2017 Chronic pain syndrome G89.4 [facility] [address] [place] [address]- 6405 May, Anxiety F41.9 and Chronic pain syndrome G89.4 [facility] [id number] [place] [address] 23532- 4337 Mar, [facility] [id number] [place] [address] 32205- 1227 Mar, [facility] [id number] [place] [address] 04318- 7968 Mar, [facility] [id number] [place] [address] 20045- 8254 Mar, [facility] [id number] [place] [address] 45333- 5737 Mar, [facility] [id number] [place] [address] 83241- 7589 Mar, Anxiety F41.9 and Chronic pain syndrome G89.4 [facility] [id number] [place] [address] 86787- 9163 Mar, Medicare annual wellness visit, initial Z00.00 [...] Hiatal hernia K44.9 and Actinic keratosis L57.0 [facility] [id number] [place] [address] 57185- 6669 Mar, [facility] [id number] [place] [address] 41805- 7761 Mar, Chronic pain syndrome G89.4 [facility] [id number] [place] [address] 26114- 1548 Feb, [facility] [id number] [place] [address] 99547- 1414 Feb, Chronic pain syndrome G89.4 [facility] [id number] [place] [address] 15658- 8749 Feb, [facility] [id number] [place] [address] 05353- 9635 Feb, [facility] [id number] [place] [address] 66653- 9112 Feb, Anxiety F41.9 [facility] [address] 21957- 8921 Feb, [facility] [id number] [place] [address] 28092- 0537 Feb, Chronic pain syndrome G89.4 [facility] [id number] [place] [address] 62728- 2680 Jan, Essential hypertension I10 [facility] [id number] [place] [address] 42842- 7441 Jan, Chronic pain syndrome G89.4 [facility] [id number] [place] [address] 35336- 0268 Jan, [facility] [id number] [place] [address] 73617- 4327 Jan, Anxiety F41.9 [facility] [id number] [place] [address] 52450- 6093 Jan, Encounter for immunization Z23 and Community acquired pneumonia, unspecified laterality J18.9 [facility] [id number] [place] [address] 37088- 8254 Jan, Type 2 diabetes mellitus with diabetic neuropathy, without long-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 [facility] [id number] [place] [address] 08834- 9811 Dec, Anxiety F41.9 and Chronic pain syndrome G89.4 [facility] [id number] [place] [address] 22671- 5256 23 Dec, 2016 Chronic pain syndrome G89.4 and Essential hypertension I10 [facility] [id number] [place] [address] 59235- 5056 16 Dec, 2016 [facility] [address] 28767- 4500 Dec, Anxiety F41.9 [facility] [id number] [place] [address] 11129- 4279 Dec, [facility] [id number] [place] [address] 96896- 3164 04 Dec, 2016 Type 2 diabetes mellitus with diabetic neuropathy, without long-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 ; Lactic acidosis E87.2 ; Chronic obstructive pulmonary disease, unspecified COPD type J44.9 and Encounter for immunization Z23 [facility] [id number] [place] [address] 77613- 4662 02 Dec, 2016 Chronic pain syndrome G89.4 [facility] [id number] [place] [address] 95386- 3056 28 Nov, 2016 [facility] [id number] [place] [address] 95224- 3703 Nov, Chronic pain syndrome G89.4 [facility] [id number] [place] [address] 06901 2540 Nov, [facility] [id number] [place] [address] 96539 2547 Nov, [facility] [id number] [place] [address] 39147- 5086 15 Nov, 2016 Anxiety F41.9 [facility] [address] [place] [address] 82058 2544 11 Nov, 2016 Anxiety F41.9 [facility] [address] [address]- 6154 08 Nov, 2016 [facility] [address] [place] [address] 52256- 3925 Nov, [facility] [id number] [place] [address] 89474- 7734 Nov, [facility] [id number] [place] [address] 48338- 9752 Oct, [facility] [id number] [place] [address] 57224- 6093 Oct, [facility] [id number] [place] [address] 18469- 2100 Oct, [facility] [id number] [place] [address] 80538- 0411 Oct, Essential hypertension I10 and Chronic pain syndrome G89.4 [facility] [id number] [place] [address] 37400- 8768 Oct, Anxiety F41.9 [facility] [id number] [place] [address] 96282- 4771 Oct, [facility] [id number] [place] [address] 71644- 9880 Oct, Chronic pain syndrome G89.4 [facility] [address] [address] Oct, Sore throat J02.9 and Acute nasopharyngitis (common cold) J00 [facility] [address] [address]- 0940 Sep, [facility] [id number] [place] [address] 12667- 0238 Sep, COPD exacerbation J44.1 [facility] [address] [address]- 0778 Sep, Chronic pain syndrome G89.4 [facility] [address] [place] [address] 37845- 3103 Sep, Essential hypertension I10 [facility] [id number] [place] [address] 92673- 0359 Sep, [facility] [id number] [place] [address] 87768- 8293 Sep, [facility] [address] 14910- 5478 Sep, Anxiety F41.9 [facility] [id number] [place] [address] 50878- 9882 Sep, Chronic pain syndrome G89.4 [facility] [id number] [place] [address] 21347- 2142 Sep, [facility] [id number] [place] [address] 63203- 6419 Aug, Acute seasonal allergic rhinitis, unspecified trigger J30.2 ; Hiatal hernia K44.9 and Chronic pain syndrome G89.4 [facility] [id number] [place] [address] 13952- 7746 Aug, [facility] [id number] [place] [address] 29815- 0398 Aug, [facility] [id number] [place] [address] 40841- 2048 Aug, Chronic obstructive pulmonary disease, unspecified COPD type J44.9 [facility] [id number] [place] [address] 67542- 3840 14 Aug, 2016 Anxiety F41.9 [facility] [id number] [place] [address] 23929- 4611 08 Aug, 2016 Chronic pain syndrome G89.4 [facility] [id number] [place] [address] 12482- 3926 07 Aug, 2016 Hiatal hernia K44.9 and Actinic keratosis L57.0 [facility] [address] [address]- 7303 Aug, [facility] [id number] [place] [address] 46898- 5486 Aug, Anxiety F41.9 [facility] [address] [address]- 9485 July, [facility] [id number] [place] [address] 26694- 2301 July, Hiatal hernia K44.9 [facility] [id number] [place] [address] 81330- 1401 July, [facility] [id number] [place] [address] 30500- 6170 July, Anxiety F41.9 and Chronic pain syndrome G89.4 [facility] [id number] [place] [address] 46598- 2564 July, [facility] [id number] [place] [address] 11167- 0996 Jun, Chronic pain syndrome G89.4 [facility] [id number] [place] [address] 66743- 6559 Jun, Chronic pain syndrome G89.4 [facility] [address] [address]- 9737 Jun, [facility] [address] [place] [address] 50912- 1851 Jun, Anxiety F41.9 [facility] [address], [place] [address]- 5681 Jun, Allergic rhinitis, unspecified allergic rhinitis trigger, unspecified rhinitis seasonality J30.9 [facility] [address], [place] [address]- 7777 Jun, [facility] [address] [place] [address] 70830- 6260 May, Chronic pain syndrome G89.4 [facility] [address], [place] [address]- 7297 May, [facility] [address] [address]- 5949 May, [facility] [address] [address]- 4014 May, Anxiety F41.9 [facility] [address] [place] [address] 19190- 8902 May, Type 2 diabetes mellitus with diabetic [...] Anxiety F41.9 and Chronic pain syndrome G89.4 [facility] [address], [place] [address]- 3284 May, Essential hypertension I10 ; Type 2 diabetes mellitus with diabetic neuropathy, without long-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 ; Mixed hyperlipidemia E78.2 ; Chronic obstructive pulmonary disease, unspecified COPD type J44.9 and Chronic GERD K21.9 [facility] [address], [place] [address]- 7591 May, [facility] [address], [place] [address]- 4575 May, [facility] [address] [address]- 6825 May, Type 2 diabetes mellitus with diabetic neuropathy, without long-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 [facility] [address] [address]- 1432 May, Dementia without behavioral disturbance, unspecified dementia type F03.90 [facility] [address] [place] [address] 44458- 2742 May, Type 2 diabetes mellitus with diabetic neuropathy, without long-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 ; Essential hypertension I10 ; Mixed hyperlipidemia E78.2 ; Chronic obstructive pulmonary disease, unspecified COPD type J44.9 ; Chronic GERD K21.9 and Osteoarthritis of both knees, unspecified osteoarthritis type M17.0 [facility] [id number] [place] [address] 49101- 4621 May, [facility] [id number] [place] [address] 63981- 3860 May, [facility] [id number] [place] [address] 19007- 9141 May, Anxiety F41.9 and Unspecified symptoms and signs involving cognitive functions and awareness R41.9 [facility] [address] [place] [address] 99106- 4441 May, [facility] [id number] [place] [address] 89371- 8022 May, Type 2 diabetes mellitus with diabetic neuropathy, without long-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 ; Anxiety F41.9 and Chronic obstructive pulmonary disease, unspecified COPD type J44.9 [facility] [address] [place] [address] 86137- 6728 May, [facility] [id number] [place] [address] 28150- 4572 May, [facility] [address] [place] [address] 72927- 8148 May, [facility] [id number] [place] [address] 52437- 4319 May, Chronic obstructive pulmonary disease, unspecified COPD type J44.9 [facility] [address] [place] [address] 90224- 4276 Mar, [facility] [id number] [place] [address] 04693- 8133 Mar, Arthritis of both knees M19.90 [facility] [address] 32885- 5982 16 Mar, 2016 Type 2 diabetes mellitus with diabetic neuropathy, without long-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 [facility] [address] 80430- 8951 Mar, [facility] [address] 90998- 6357 Mar, Neck pain M54.2 and Weakness generalized R53.1 [facility] [address] 35640- 0303 Mar, [facility] [address] 36859- 5575 Mar, Cervicalgia M54.2 and Impacted cerumen of both ears H61.23 [facility] [address] 73406- 4888 Mar, [facility] [address] 76221- 0334 Mar, Type 2 diabetes mellitus with diabetic neuropathy, without long-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 [facility] [address] [place] [address] 77083- 1015 Feb, [facility] [address] 31918- 4263 Feb, Hypoxia R09.02 [facility] [address] 46097- 8380 Feb, [facility] [address] 73024- 7392 Feb, [facility] [id number] [place] [address] 13776- 6618 Feb, [facility] [address], [place] [address]- 6833 16 Feb, 2016 Type 2 diabetes mellitus with diabetic neuropathy, without long-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 [facility] [address] [place] [address] 41646- 7465 15 Feb, 2016 Osteoarthritis of both knees, unspecified osteoarthritis type M17.0 [facility] [id number] [place] [address] 61841- 5975 14 Feb, 2016 [facility] [id number] [place] [address] 71338- 5513 12 Feb, 2016 [facility] [id number] [place] [address] 75943- 8358 09 Feb, 2016 [facility] [address] [place] [address] 74716- 0871 Jan, [facility] [id number] [place] [address] 68147- 0679 15 Jan, 2016 [facility] [id number] [place] [address] 15950- 9996 Jan, [facility] [id number] [place] [address] 26606- 7436 14 Jan, 2016 [facility] [address] [place] [address] 95025- 7157 10 Jan, 2016 Tinea pedis of both feet B35.3 [facility] [address], [place] [address]- 2070 03 Jan, 2016 Type 2 diabetes mellitus [...] seasonality J30.9 and Encounter for immunization Z23 [facility] [id number] [place] [address] 61031- 7278 Jan, [facility] [id number] [place] [address] 66339- 7631 Jan, [facility] [id number] [place] [address] 13817- 2969 Dec, [facility] [id number] [place] [address] 00355- 2007 Dec, [facility] [address] 41489 -0246 Dec, Unspecified asthma with (acute) exacerbation J45.901 and Chronic obstructive pulmonary disease with (acute) exacerbation J44.1 [facility] [address] [place] [address] 58127- 4663 Dec, Arthritis of both knees M19.90 and Acute medial meniscus tear, right, initial encounter S83.241A [facility] [address] [place] [address] 08313- 3030 Dec, [facility] [id number] [place] [address] 47419- 9200 Dec, [facility] [id number] [place] [address] 80843- 3969 Dec, [facility] [id number] [place] [address] 80340- 3018 Dec, [facility] [id number] [place] [address] 57552- 7581 Dec, History of pneumonia Z87.01 [facility] [id number] [place] [address] 07633- 0058 Dec, [facility] [id number] [place] [address] 80518- 3837 Dec, [facility] [address], [place] [address]- 7035 Dec, [facility] [id number] [place] [address] 97725- 1587 Dec, [facility] [id number] [place] [address] 50442- 0396 Dec, [facility] [id number] [place] [address] 68892- 8662 Dec, [facility] [id number] [place] [address] 85006- 4987 Nov, Cough R05 and Pneumonia due to infectious organism, unspecified laterality, unspecified part of lung J18.9 [facility] [id number] [place] [address] 25781- 0044 Nov, [facility] [id number] [place] [address] 75204- 4449 Nov, Type 2 diabetes mellitus with diabetic [...] allergic rhinitis trigger, unspecified rhinitis seasonality J30.[address] [place] [address] 32990- 1901 12 Nov, 2015 IMMUNIZATIONS No Known Immunizations SOCIAL HISTORY Never Assessed REASON FOR VISIT Controlled Med Refill PLAN OF CARE VITAL SIGNS MEDICATIONS Medication Instructions Dosage Frequency Start Date End Date Duration Status Lyrica 100 mg Orally Three times a day 1 capsule 8h Active RESULTS No Results PROCEDURES No Known procedures INSTRUCTIONS MEDICATIONS ADMINISTERED No Known Medications MEDICAL (GENERAL) HISTORY Type Description Date Medical History hypertension Medical History chronic obstructive pulmonary disease (COPD)-wears 2L O2 per [place], uses [employer] for home O2 Medical History Arthritis-knees and [...] History TURP 2003 [facility] Hospitalization History TIA, [facility] 2014 Hospitalization History COPD exacerbation--[facility] 12/27/2015 Hospitalization History [facility] - fall 02/2016 Hospitalization History [facility] pneumonia 11/2016 Hospitalization History COPD exacerbation - Dr Hartley Attending 12/2016 Hospitalization History Cough- [facility] [place] 04/10/2017
--- OUTSIDE RECORDS SUMMARY | 2017-08-12 15:59 | XMS REPORT ---
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 Name Role Phone VIJAY ASIM Unavailable PROBLEMS Type Condition ICD9-CM Code [id number] Code Onset Dates Condition Status SNOMED Code Problem Hypoxia R09.02 Active 741998478 Problem Anxiety F41.9 Active 82010862 Problem Essential hypertension I10 Active 41737003 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 Active 2181317 Problem 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 Active 418046669 Problem Mixed hyperlipidemia E78.2 Active 323292981 Problem Chronic obstructive pulmonary disease, unspecified COPD type J44.9 Active 63157369 Problem Gastroesophageal reflux disease without esophagitis K21.9 Active 713717138 Problem Chronic GERD K21.9 Active 806159485 Problem Type 2 diabetes mellitus with diabetic neuropathy, without long-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 Active 45522135 Problem Allergic rhinitis, unspecified allergic rhinitis trigger, unspecified rhinitis seasonality J30.9 Active 02201675 Problem Chronic pain syndrome G89.4 Active 345623203 Problem Osteoarthritis of both knees, unspecified osteoarthritis type M17.0 Active [id number] ALLERGIES No Information ENCOUNTERS Encounter Location Date Diagnosis [facility] [place] [id number] [address] July, [facility] [place] [address], [place] [address] 3[address] July, [facility] [place] [address], [place] [address] 5702 July, [facility] [place] [id number] [address] 0987 Jun, Chronic pain syndrome G89.4 [facility] [place] [id number] [place] [address] 64479- 5001 Jun, [facility] [id number] [place] [address] 89817- 6951 Jun, [address] [facility] [id number] [place] [address] 04888- 6525 Jun, 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 [address] 80638- 8427 Jun, [address] [address] 90460- 5071 Jun, Gastroesophageal reflux disease without esophagitis K21.9 [address] 78725- 2041 Jun, Allergic rhinitis, unspecified allergic rhinitis trigger, unspecified rhinitis seasonality J30.9 [address] [address] 02848- 8627 Jun, Chronic pain syndrome G89.4 [address] [id number] [place] [address] 15333- 6759 May, [address] [address] 67488- 8968 May, COPD with acute exacerbation J44.1 [facility] [id number] [place] [address] 12936- 5911 14 May, 2017 Type 2 diabetes mellitus with diabetic neuropathy, without long-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 ; COPD with acute exacerbation J44.1 ; Hypoxia R09.02 ; Chronic pain syndrome G89.4 ; Yeast dermatitis B37.2 ; 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 and 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 [address] [id number] [place] [address] 51015- 4733 May, [address] [facility] [id number] [place] [address] 63667- 5695 May, Chronic pain syndrome G89.4 [facility] [place] [address] [place] [address] 19986- 1962 May, [facility] [place] [id number] [place] [address] 22617- 9726 May, [facility] [place] [id number] [place] [address] 84945- 8651 May, Mixed hyperlipidemia E78.2 [facility] [place] [id number] [place] [address] 24986- 6480 May, Chronic pain syndrome G89.4 [facility] [place] [id number] [place] [address] 42229- 0264 May, Anxiety F41.9 and Chronic pain syndrome G89.4 [facility] [place] [id number] [place] [address] 52827- 2895 Mar, [facility] [place] [id number] [place] [address] 11501- 0644 Mar, [facility] [place] [id number] [place] [address] 37434- 9115 Mar, [facility] [place] [id number] [place] [address] 85803- 0865 Mar, [facility] [place] [id number] [place] [address] 59719- 7973 Mar, [facility] [place] [id number] [place] [address] 39078- 0204 Mar, Anxiety F41.9 and Chronic pain syndrome G89.4 [facility] [place] [id number] [place] [address] 13866- 2860 Mar, Medicare annual wellness visit, initial Z00.00 [...] Hiatal hernia K44.9 and Actinic keratosis L57.0 [facility] [place] [id number] [place] [address] 56604- 3171 Mar, [facility] [place] [address] 80097- 8082 Mar, Chronic pain syndrome G89.4 [facility] [place] [address] 10270- 6103 Feb, [facility] [place] [id number] [place] [address] 58691- 3080 Feb, Chronic pain syndrome G89.4 [facility] [place] [id number] [place] [address] 10457- 2637 Feb, [facility] [place] [id number] [place] [address] 17645- 4856 Feb, [facility] [place] [id number] [place] [address] 21631- 1567 Feb, Anxiety F41.9 [facility] [place] [id number] [place] [address] 68664- 3636 Feb, [facility] [place] [id number] [place] [address] 64600- 9652 Feb, Chronic pain syndrome G89.4 [facility] [place] [id number] [place] [address] 12929- 7764 Jan, Essential hypertension I10 [facility] [place] [id number] [place] [address] 06898- 4846 Jan, Chronic pain syndrome G89.4 [facility] [place] [id number] [place] [address] 62932- 8023 Jan, [place] [id number] [place] [address] 62618- 9056 Jan, Anxiety F41.9 [place] [address] 57789- 8483 Jan, Encounter for immunization Z23 and Community acquired pneumonia, unspecified laterality J18.9 [address] [address] 87610- 0779 Jan, Type 2 diabetes mellitus with diabetic neuropathy, without long-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 [place] [address] 97873- 0522 Dec, Anxiety F41.9 and Chronic pain syndrome G89.4 [address] [address] 59336- 4515 Dec, Chronic pain syndrome G89.4 and Essential hypertension I10 [address] [address] 28475- 5561 Dec, [address] [address] 98356- 5671 Dec, Anxiety F41.9 [address] [address] 17275- 4229 Dec, [place] [id number] [place] [address] 26042- 0484 Dec, Type 2 diabetes mellitus with diabetic neuropathy, without long-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 ; Lactic acidosis E87.2 ; Chronic obstructive pulmonary disease, unspecified COPD type J44.9 and Encounter for immunization Z23 [address] [place] [address] 54643- 4740 Dec, Chronic pain syndrome G89.4 [address] [address] 87387- 3465 Nov, [address] [address] 07878- 8088 Nov, Chronic pain syndrome G89.4 [facility] [place] [address] [facility] [id number] [place] [address] 43226- 6640 Nov, [facility] [id number] [place] [address] 63028- 5240 Nov, [facility] [place] [address] [place] [address] 69961- 9474 15 Nov, 2016 Anxiety F41.9 [facility] [place] [address] [facility] [id number] [place] [address] 34625- 2376 11 Nov, 2016 Anxiety F41.9 [facility] [place] [id number] [place] [address] 49400- 0686 Nov, [facility] [place] [id number] [place] [address] 33832- 3737 Nov, [facility] [place] [id number] [place] [address] 17823- 1648 Nov, [facility] [place] [address] [place] [address] 02949- 1469 Oct, [facility] [place] [id number] [place] [address] 21203- 7155 Oct, [facility] [place] [address] [place] [address] 95534- 6500 Oct, [facility] [place] [address] [place] [address] 08684- 2897 Oct, Essential hypertension I10 and Chronic pain syndrome G89.4 [facility] [place] [address] [place] [address] 01190- 6938 Oct, Anxiety F41.9 [facility] [place] [address] [place] [address] 36975- 8754 Oct, [facility] [place] [address], [place] [address]- 5102 Oct, Chronic pain syndrome G89.4 [facility] [address] [place] [address] 09504 -9150 Oct, Sore throat J02.9 and Acute nasopharyngitis (common cold) J00 [facility] [place] [id number] [place] [address] 71942- 7322 Sep, [facility] [place] [id number] [place] [address] 46175- 2928 Sep, COPD exacerbation J44.1 [facility] [place] [id number] [place] [address] 64530- 7602 Sep, Chronic pain syndrome G89.4 [facility] [place] [id number] [place] [address] 99057- 7210 Sep, Essential hypertension I10 [facility] [place] [id number] [place] [address] 66710- 4542 Sep, [facility] [place] [id number] [place] [address] 03589- 6094 Sep, [facility] [place] [id number] [place] [address] 59152- 9098 Sep, Anxiety F41.9 [facility] [place] [id number] [place] [address] 61841- 6607 Sep, Chronic pain syndrome G89.4 [facility] [place] [id number] [place] [address] 11935- 3353 Sep, [facility] [place] [id number] [place] [address] 67179- 4917 Aug, Acute seasonal allergic rhinitis, unspecified trigger J30.2 ; Hiatal hernia K44.9 and Chronic pain syndrome G89.4 [facility] [place] [id number] [place] [address] 95048- 4061 Aug, [facility] [place] [id number] [place] [address] 84737- 3911 Aug, [facility] [place] [address], [place] [address]- 7819 Aug, Chronic obstructive pulmonary disease, unspecified COPD type J44.9 [facility] [place] [id number] [place] [address] 28424- 8970 14 Aug, 2016 Anxiety F41.9 [facility] [place] [address] [place] [address] 67189- 6166 08 Aug, 2016 Chronic pain syndrome G89.4 [facility] [place] [id number] [place] [address] 40951- 1499 Aug, Hiatal hernia K44.9 and Actinic keratosis L57.0 [facility] [place] [id number] [place] [address] 05612- 3436 Aug, [facility] [place] [address] [place] [address] 04098- 2730 Aug, Anxiety F41.9 [facility] [place] [id number] [place] [address] 85326- 0155 July, [facility] [place] [address] [place] [address] 30018- 2531 July, Hiatal hernia K44.9 [facility] [place] [address], [place] [address]- 8616 July, [facility] [place] [address] [place] [address] 90572- 4777 July, Anxiety F41.9 and Chronic pain syndrome G89.4 [facility] [place] [address], [place] [address]- 9147 July, [facility] [place] [address] [place] [address] 61924- 9362 Jun, Chronic pain syndrome G89.4 [facility] [place] [address], [place] [address]- 3673 Jun, Chronic pain syndrome G89.4 [facility] [place] [id number], [place] [address]- 7116 Jun, [address] [place] [id number] [place] [address] 39437- 4691 Jun, Anxiety F41.9 [address] [id number] [place] [address] 56941- 9893 Jun, Allergic rhinitis, unspecified allergic rhinitis trigger, unspecified rhinitis seasonality J30.9 [address] [id number] [place] [address] 07927- 3018 Jun, [address] [id number] [place] [address] 49822- 1365 May, Chronic pain syndrome G89.4 [address] [place] [id number] [place] [address] 26061- 4518 May, [address] [place] [id number] [place] [address] 40757- 1783 May, [address] [place] [id number] [place] [address] 74654- 8371 May, Anxiety F41.9 [address] [id number] [place] [address] 44138- 3104 May, Type 2 diabetes mellitus with diabetic [...] Anxiety F41.9 and Chronic pain syndrome G89.4 [address] [place] [address] [place] [address] 50366- 6332 May, Essential hypertension I10 ; Type 2 diabetes mellitus with diabetic neuropathy, without long-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 ; Mixed hyperlipidemia E78.2 ; Chronic obstructive pulmonary disease, unspecified COPD type J44.9 and Chronic GERD K21.9 [address] [id number] [place] [address] 37513- 8628 May, [address] 17115- 7517 May, [place] [id number] [place] [address] 43297- 9065 May, Type 2 diabetes mellitus with diabetic neuropathy, without long-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 [address] [id number] [place] [address] 36255- 4001 May, Dementia without behavioral disturbance, unspecified dementia type F03.90 [address] [id number] [place] [address] 95584- 9039 May, Type 2 diabetes mellitus with diabetic neuropathy, without long-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 ; Essential hypertension I10 ; Mixed hyperlipidemia E78.2 ; Chronic obstructive pulmonary disease, unspecified COPD type J44.9 ; Chronic GERD K21.9 and Osteoarthritis of both knees, unspecified osteoarthritis type M17.0 [address] [id number] [place] [address] 84505- 2517 May, [address] [id number] [place] [address] 03905- 0391 May, [address] [id number] [place] [address] 49420- 6246 May, Anxiety F41.9 and Unspecified symptoms and signs involving cognitive functions and awareness R41.9 [address] [id number] [place] [address] 80646- 9372 May, [address] [id number] [place] [address] 05158- 8258 May, Type 2 diabetes mellitus with diabetic neuropathy, without long-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 ; Anxiety F41.9 and Chronic obstructive pulmonary disease, unspecified COPD type J44.9 [address] [address] [place] [address]- 5859 May, [facility] [place] [address] [place] [address] 56549- 9895 May, [facility] [place] [id number] [place] [address] 58679- 8661 May, [facility] [place] [id number] [place] [address] 50660- 3075 May, Chronic obstructive pulmonary disease, unspecified COPD type J44.9 [address] [id number] [place] [address] 06860- 4548 Mar, [address] [id number] [place] [address] 97115- 2202 Mar, Arthritis of both knees M19.90 [address] [address] 78986- 6753 Mar, Type 2 diabetes mellitus with diabetic neuropathy, without long-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 [place] [id number] [place] [address] 83468- 1672 Mar, [address] [id number] [place] [address] 80058- 4280 Mar, Neck pain M54.2 and Weakness generalized R53.1 [address] [id number] [place] [address] 29732- 8940 Mar, [address] [id number] [place] [address] 97412- 4347 Mar, Cervicalgia M54.2 and Impacted cerumen of both ears H61.23 [place] [id number] [place] [address] 56399- 4414 Mar, [address] [id number] [place] [address] 35293- 7272 Mar, Type 2 diabetes mellitus with diabetic neuropathy, without long-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 [address] [address] [address]- 2778 29 Feb, 2016 [facility] [place] [address] [place] [address] 38560- 5212 28 Feb, 2016 Hypoxia R09.02 [facility] [place] [address], [place] [address]- 3802 23 Feb, 2016 [facility] [place] [id number] [place] [address] 79798- 7197 Feb, [facility] [place] [address] [place] [address] 91844- 5194 Feb, [facility] [place] [id number] [place] [address] 81580- 7330 16 Feb, 2016 Type 2 diabetes mellitus with diabetic neuropathy, without long-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 [facility] [place] [id number] [place] [address] 96862- 1377 15 Feb, 2016 Osteoarthritis of both knees, unspecified osteoarthritis type M17.0 [facility] [place] [address], [place] [address]- 0529 14 Feb, 2016 [facility] [place] [address], [place] [address]- 5462 12 Feb, 2016 [facility] [place] [address], [place] [address]- 9728 09 Feb, 2016 [facility] [place] [address], [place] [address]- 4779 15 Jan, 2016 [facility] [place] [address], [place] [address]- 9264 15 Jan, 2016 [facility] [place] [address], [place] [address]- 6610 14 Jan, 2016 [facility] [place] [address] [place] [address]- 9719 14 Jan, 2016 [facility] [place] [address] [place] [address] 33776- 1353 Jan, Tinea pedis of both feet B35.3 [place] [address] 61504- 4738 Jan, Type 2 diabetes mellitus with diabetic [...] seasonality J30.9 and Encounter for immunization Z23 [place] [address] 68240- 2967 Jan, [place] [address] 87078- 2467 Jan, [place] [address] 50554- 8319 Dec, [place] [address] 53980- 1229 Dec, [facility] [address] 15280 -3145 Dec, Unspecified asthma with (acute) exacerbation J45.901 and Chronic obstructive pulmonary disease with (acute) exacerbation J44.1 [place] [address] 84129- 9475 Dec, Arthritis of both knees M19.90 and Acute medial meniscus tear, right, initial encounter S83.241A [place] [address] 13723- 0008 Dec, [place] [address] [address] Dec, [place] [address] [address] 14 Dec, 2015 [facility] [place] [id number] [place] [address] Dec, [facility] [place] [id number] [address] Dec, History of pneumonia Z87.01 [facility] [place] [address] [address] Dec, [facility] [place] [address], [place] [address] Dec, [facility] [place] [address] [place] [address] Dec, [facility] [place] [address] [place] [id number] [address] Dec, [facility] [place] [id number], [place] [address] Dec, [facility] [place] [address] [place] [address] Dec, [facility] [place] [facility] [id number], [place] [address] Nov, Cough R05 and Pneumonia due to infectious organism, unspecified laterality, unspecified part of lung J18.9 [facility] [place] [address], [place] [address] Nov, [facility] [place] [address], [place] [address] Nov, Type 2 diabetes mellitus with diabetic [...] allergic rhinitis trigger, unspecified rhinitis seasonality J30.9 [facility] [place] [address] [facility] [id number] [address] 12 Nov, 2015 IMMUNIZATIONS No Known Immunizations [...] obstructive pulmonary disease (COPD)-wears 2L O2 per [place], uses [place] for home O2 Medical History Arthritis-knees and [...] History TURP 2003 Surgical History EGD Colonoscopy [facility] 06/06/2016 Hospitalization History TIA, Via [facility] 2014 Hospitalization History COPD exacerbation--[facility] 12/27/2015 Hospitalization History [facility] - fall 02/2016 Hospitalization History [facility] pneumonia 11/2016 Hospitalization History COPD exacerbation - Dr Hartley Attending 12/2016 Hospitalization History Cough- [facility] 04/10/2017
--- OUTSIDE RECORDS SUMMARY | 2017-08-12 16:00 | XMS REPORT ---
Author Author ASIM LINARES [facility] Address [address] [place] [address] Care Team Providers Care Senior Contracts Administrator Name Role Phone ERIKKathy ASIM Unavailable PROBLEMS Type Condition ICD9-CM Code JAB57-BV Code Onset Dates Condition Status SNOMED Code Problem Hypoxia R09.02 Active 642092379 Problem Anxiety F41.9 Active 60000592 Problem Essential hypertension I10 Active 09969071 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 Active 1717057 Problem 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 Active 082244117 Problem Mixed hyperlipidemia E78.2 Active 533976898 Problem Chronic obstructive pulmonary disease, unspecified COPD type J44.9 Active 02965508 Problem Gastroesophageal reflux disease without esophagitis K21.9 Active 197175720 Problem Chronic GERD K21.9 Active 629358006 Problem Type 2 diabetes mellitus with diabetic neuropathy, without long-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 Active 13693322 Problem Allergic rhinitis, unspecified allergic rhinitis trigger, unspecified rhinitis seasonality J30.9 Active 97786220 Problem Chronic pain syndrome G89.4 Active 836775318 Problem Osteoarthritis of both knees, unspecified osteoarthritis type M17.0 Active 196494371 ALLERGIES No Information ENCOUNTERS Encounter Location Date Diagnosis [place] [id number] [place] [address] 66461- 7182 Jun, 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 [place] [address] [place] [address] 32214- 9356 Jun, [place] [address] [place] [address] 27704- 2191 Jun, Gastroesophageal reflux disease without esophagitis K21.9 [place] [address] [place] [address] 89700- 5783 Jun, Allergic rhinitis, unspecified allergic rhinitis trigger, unspecified rhinitis seasonality J30.9 [facility] [address] [address] [id number] [place] [address] 16251- 8565 Jun, Chronic pain syndrome G89.4 [facility] [address] [address] [id number] [place] [address] 82161- 8565 May, [place] [address] [address]- [address] May, COPD with acute exacerbation J44.1 [place] [address] [address]- 3016 14 May, 2017 Type 2 diabetes mellitus with diabetic neuropathy, without long-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 ; COPD with acute exacerbation J44.1 ; Hypoxia R09.02 ; Chronic pain syndrome G89.4 ; Yeast dermatitis B37.2 ; 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 and 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 [place] [address] [address]- 8592 May, [place] [address] [address]- 6928 May, Chronic pain syndrome G89.4 [place] [address] [place] [address] [id number] [place] [address] 24539- 0098 May, [place] [address] 79235- 7862 May, [place] [address] [place] [id number] [place] [address] 87828- 7883 May, Mixed hyperlipidemia E78.2 [facility] [address] 18[address]- 6363 15 May, 2017 Chronic pain syndrome G89.4 [facility] [address] [place] [id number] [place] [address] 96052- 3918 May, Anxiety F41.9 and Chronic pain syndrome G89.4 [facility] [address], [place] [address] 2604 Mar, [facility] [address], [place] [address] 2960 Mar, [facility] [address], [place] [address] 1401 Mar, [facility] [address] [address] [id number] [place] [address] 01890- 9960 Mar, [facility] [address] [place] [address] 88665- 1793 Mar, [facility] [address] [address] [id number] [place] [address] 16255- 1694 Mar, Anxiety F41.9 and Chronic pain syndrome G89.4 [place] [address], [place] [address] 7[address] Mar, Medicare annual wellness visit, initial Z00.00 [...] Hiatal hernia K44.9 and Actinic keratosis L57.0 [facility] [address], [place] [address]- 1455 Mar, [facility] [address] [place] [id number] [place] [address] 93591- 9305 Mar, Chronic pain syndrome G89.4 [facility] [address], [place] [address]- 7154 Feb, [facility] [address] [address] [id number] [place] [address] 26731- 7839 Feb, Chronic pain syndrome G89.4 [facility] [address] [id number] [place] [address] 04207- 6600 Feb, [facility] [address] [address] [id number] [place] [address] 06368- 6525 Feb, [facility] [address] 03309- 9435 Feb, Anxiety F41.9 [facility] [address] 07684- 6240 Feb, [facility] [address] 47588- 6100 Feb, Chronic pain syndrome G89.4 [facility] [address] 29580- 0966 Jan, Essential hypertension I10 [facility] [address] [place] [address] [id number] [place] [address] 88949- 5786 Jan, Chronic pain syndrome G89.4 [facility] [address] [address] [id number] [place] [address] 33287- 5790 Jan, [facility] [address] [place] [address] [id number] [place] [address] 38871- 1610 Jan, Anxiety F41.9 [facility] [address] [place] [address] [id number] [place] [address] 56650- 6607 Jan, Encounter for immunization Z23 and Community acquired pneumonia, unspecified laterality J18.9 [facility] [address] [address] [id number] [place] [address] 43684- 9880 Jan, Type 2 diabetes mellitus with diabetic neuropathy, without long-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 [facility] [address] [place] [address] [id number] [place] [address] 07152- 0100 Dec, Anxiety F41.9 and Chronic pain syndrome G89.4 [facility] [address] [place] [address]- 4046 Dec, Chronic pain syndrome G89.4 and Essential hypertension I10 [facility] [address] [address] [id number] [place] [address] 02845- 3746 16 Dec, 2016 [facility] [address] [place] [address] [id number] [place] [address] 98722- 8836 Dec, Anxiety F41.9 [facility] [address] 55249 2543 Dec, [facility] [address] [place] [id number] [place] [address] 66334- 8185 04 Dec, 2016 Type 2 diabetes mellitus with diabetic neuropathy, without long-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 ; Lactic acidosis E87.2 ; Chronic obstructive pulmonary disease, unspecified COPD type J44.9 and Encounter for immunization Z23 [facility] [address] [place] [address] [id number] [place] [address] 59411- 9023 Dec, Chronic pain syndrome G89.4 [facility] [address] [address] [id number] [place] [address] 66409 2542 28 Nov, 2016 [facility] [address] [address] [id number] [place] [address] 90361 2549 Nov, Chronic pain syndrome G89.4 [facility] [address] [place] [address] 03367 2546 Nov, [facility] [address] [id number] [place] [address] 71446 2540 Nov, [facility] [address] [address] [id number] [place] [address] 23303 2543 15 Nov, 2016 Anxiety F41.9 [facility] [address] [address] [id number] [place] [address] 08015 2545 11 Nov, 2016 Anxiety F41.9 [facility] [address] [place] [address] 79411 2546 08 Nov, 2016 [facility] [address] [address], [place] [address]- 2988 Nov, [facility] [address] [place] [address] 59337- 2481 Nov, [facility] [address] [place] [address] [id number] [place] [address] 18987- 2684 Oct, [facility] [address] [address] [id number] [place] [address] 89519- 8275 Oct, [facility] [address] [id number] [place] [address] 58758- 7892 Oct, [facility] [address] [address] [id number] [place] [address] 66085- 7078 Oct, Essential hypertension I10 and Chronic pain syndrome G89.4 [facility] [address] [place] [address] [id number] [place] [address] 42488- 9266 Oct, Anxiety F41.9 [facility] [address] [address] [id number] [place] [address] 12165- 1868 Oct, [facility] [address] [address] [id number] [place] [address] 76317- 4491 Oct, Chronic pain syndrome G89.4 [facility] [address], [place] [address]31 Oct, Sore throat J02.9 and Acute nasopharyngitis (common cold) J00 [facility] [address], [place] [address]- 0973 Sep, [facility] [address] [place] [address] 44654- 7163 Sep, COPD exacerbation J44.1 [facility] [address] [place] [address] [id number] [place] [address] 88104- 7211 Sep, Chronic pain syndrome G89.4 [facility] [address], [place] [address]- 0435 Sep, Essential hypertension I10 [facility] [address] [place] [address] 06012- 8739 Sep, [facility] [address] [place] [address] [id number] [place] [address] 83734- 1558 Sep, [facility] [address] [address] [id number] [place] [address] 16495- 7074 Sep, Anxiety F41.9 [facility] [address] [address] [id number] [place] [address] 98161- 4852 Sep, Chronic pain syndrome G89.4 [facility] [address] [address] [id number] [place] [address] 85367- 6070 Sep, [facility] [address] [address] [id number] [place] [address] 23927- 9726 Aug, Acute seasonal allergic rhinitis, unspecified trigger J30.2 ; Hiatal hernia K44.9 and Chronic pain syndrome G89.4 [facility] [address] [address] [id number] [place] [address] 98111- 3121 Aug, [facility] [address] [id number] [place] [address] 51347- 3064 Aug, [facility] [address] [id number] [place] [address] 82533- 2020 Aug, Chronic obstructive pulmonary disease, unspecified COPD type J44.9 [facility] [address] [id number] [place] [address] 26775- 1649 Aug, Anxiety F41.9 [facility] [address] [id number] [place] [address] 34550- 8753 08 Aug, 2016 Chronic pain syndrome G89.4 [facility] [address] [address] [id number] [place] [address] 21650- 1005 Aug, Hiatal hernia K44.9 and Actinic keratosis L57.0 [facility] [address] [place] [address] [id number] [place] [address] 23932- 9163 Aug, [facility] [address], [place] [address]- 1943 Aug, Anxiety F41.9 [facility] [address] [id number] [place] [address] 49358- 1537 July, [facility] [address] [place] [address] [id number] [place] [address] 26147- 8070 July, Hiatal hernia K44.9 [facility] [address] [place] [address] [id number] [place] [address] 00361- 4729 July, [facility] [address] [place] [address] [id number] [place] [address] 39578- 4055 July, Anxiety F41.9 and Chronic pain syndrome G89.4 [facility] [address] [id number] [place] [address] 80895- 5673 July, [facility] [address] [place] [address] [id number] [place] [address] 99308- 1578 Jun, Chronic pain syndrome G89.4 [facility] [address] [place] [address] [id number] [place] [address] 47908- 7218 Jun, Chronic pain syndrome G89.4 [facility] [address] [id number] [place] [address] 11677- 3527 Jun, [facility] [address] [place] [address] 44625- 6456 Jun, Anxiety F41.9 [facility] [address] [address] [id number] [place] [address] 71190- 9372 Jun, Allergic rhinitis, unspecified allergic rhinitis trigger, unspecified rhinitis seasonality J30.9 [facility] [address] [place] [address] [id number] [place] [address] 40428- 6109 Jun, [facility] [address] [address] [id number] [place] [address] 16504- 2861 May, Chronic pain syndrome G89.4 [facility] [address] [place] [address] [id number] [place] [address] 88659- 6724 May, [place] [address], [place] [address]- 2363 May, [address] [place] [address] 8238 May, Anxiety F41.9 [address] [place] [address] 50167- 3859 May, Type 2 diabetes mellitus with diabetic [...] Anxiety F41.9 and Chronic pain syndrome G89.4 [place] [id number] [place] [address] 19032- 4886 May, Essential hypertension I10 ; Type 2 diabetes mellitus with diabetic neuropathy, without long-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 ; Mixed hyperlipidemia E78.2 ; Chronic obstructive pulmonary disease, unspecified COPD type J44.9 and Chronic GERD K21.9 [address] [place] [address] 99245- 4259 May, [address], [place] [address]- 8176 May, [place] [id number] [place] [address] 85284- 6634 May, Type 2 diabetes mellitus with diabetic neuropathy, without long-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 [place] [id number] [place] [address] 27430- 5017 May, Dementia without behavioral disturbance, unspecified dementia type F03.90 [place] [id number] [place] [address] 53068- 6946 May, Type 2 diabetes mellitus with diabetic neuropathy, without long-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 ; Essential hypertension I10 ; Mixed hyperlipidemia E78.2 ; Chronic obstructive pulmonary disease, unspecified COPD type J44.9 ; Chronic GERD K21.9 and Osteoarthritis of both knees, unspecified osteoarthritis type M17.0 [place] [address] [address] [id number] [place] [address] 25769- 1857 May, [place] [address] 76973- 5266 May, [place] [address] [place] [address] [id number] [place] [address] 13580- 1306 May, Anxiety F41.9 and Unspecified symptoms and signs involving cognitive functions and awareness R41.9 [place] [address] [place] [address] [id number] [place] [address] 89181- 0685 May, [place] [address] 92906- 5427 May, Type 2 diabetes mellitus with diabetic neuropathy, without long-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 ; Anxiety F41.9 and Chronic obstructive pulmonary disease, unspecified COPD type J44.9 [place] [address] [id number] [place] [address] 05850- 8756 May, [place] [address] [id number] [place] [address] 38887- 4895 May, [place] [address] [address] [id number] [place] [address] 70550- 0213 May, [place] [address] [address] [id number] [place] [address] 00498- 8108 May, Chronic obstructive pulmonary disease, unspecified COPD type J44.9 [place] [id number] [place] [address] 12630- 1581 Mar, [place] [id number] [place] [address] 88616- 2290 27 Blas, 2017 Arthritis of both knees M19.90 [place] [address] [id number] [place] [address] 48386- 8716 16 Mar, 2016 Type 2 diabetes mellitus with diabetic neuropathy, without long-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 [place] [address] [id number] [place] [address] 44196- 6434 Mar, [place] [address] 94448- 7193 Mar, Neck pain M54.2 and Weakness generalized R53.1 [place] [address] 25759- 1939 Mar, [place] [address] 78447- 8466 Mar, Cervicalgia M54.2 and Impacted cerumen of both ears H61.23 [place] [address] 84935- 4812 Mar, [place] [address] [id number] [place] [address] 28943- 5061 Mar, Type 2 diabetes mellitus with diabetic neuropathy, without long-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 [place] [id number] [place] [address] 82121- 9478 Feb, [place] [id number] [place] [address] 10246- 7376 Feb, Hypoxia R09.02 [place] [id number] [place] [address] 78497- 3756 Feb, [place] [id number] [place] [address] 11247- 3756 Feb, [place] [id number] [place] [address] 41386- 7421 Feb, [place] [id number] [place] [address] 41758- 3017 Feb, Type 2 diabetes mellitus with diabetic neuropathy, without long-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 [facility] [address], [place] [address]- 9708 Feb, Osteoarthritis of both knees, unspecified osteoarthritis type M17.0 [facility] [address], [place] [address]- 0214 Feb, [facility] [address] [place] [address] 46179- 2782 Feb, [facility] [address] [id number] [place] [address] 96042- 2757 Feb, [place] [id number] [place] [address] 45855- 6639 Jan, [facility] [id number] [place] [address] 61978- 7225 Jan, [facility] [address] [id number] [place] [address] 08776- 4493 Jan, [facility] [address] [place] [address] 84926- 7770 Jan, [facility] [address] [place] [address] 56754- 3732 Jan, Tinea pedis of both feet B35.3 [place] [address] [place] [address] 31620- 2061 Jan, Type 2 diabetes mellitus with diabetic [...] seasonality J30.9 and Encounter for immunization Z23 [place] [address], [place] [address]- 3846 Jan, [facility] [address], [place] [address]- 1279 Jan, [facility] [address], [place] [address]- 3515 Dec, [facility] [address] [place] [address] 18255- 9778 Dec, [facility] [address], [place] [address] -1264 Dec, Unspecified asthma with (acute) exacerbation J45.901 and Chronic obstructive pulmonary disease with (acute) exacerbation J44.1 [facility] [address], [place] [address]- 6701 Dec, Arthritis of both knees M19.90 and Acute medial meniscus tear, right, initial encounter S83.241A [facility] [address], [place] [address]- 9523 Dec, [facility] [address], [place] [address]- 1486 Dec, [facility] [address] [place] [address]- 0233 Dec, [facility] [address], [place] [address]- 0637 Dec, [facility] [address], [place] [address]- 9311 Dec, History of pneumonia Z87.01 [facility] [address], [place] [address]- 4174 Dec, [facility] [address], [place] [address]- 2565 Dec, [facility] [address], [place] [address]- 5833 Dec, [place] [address], [place] [address]- 9548 Dec, [place] [address] [place] [address] 82532- 8191 Dec, [place] [address] [place] [address] 50603- 1930 Dec, [place] [id number] [place] [address] 72756- 4695 30 Nov, 2015 Cough R05 and Pneumonia due to infectious organism, unspecified laterality, unspecified part of lung J18.9 [place] [id number] [place] [address] 17879- 1350 Nov, [place] [id number] [place] [address] 52907- 5922 22 Nov, 2015 Type 2 diabetes mellitus with diabetic neuropathy, [...] allergic rhinitis trigger, unspecified rhinitis seasonality J30.9 [place] [address] [place] [address] 52323- 9231 12 Nov, 2015 IMMUNIZATIONS No Known Immunizations SOCIAL HISTORY Never Assessed REASON FOR VISIT Refill request PLAN OF CARE VITAL SIGNS MEDICATIONS Unknown Medications RESULTS No Results PROCEDURES No Known procedures INSTRUCTIONS MEDICATIONS ADMINISTERED No Known Medications MEDICAL (GENERAL) HISTORY Type Description Date Medical History hypertension Medical History chronic obstructive pulmonary disease (COPD)-wears 2L O2 per [place], uses [employer] for home O2 Medical History Arthritis-knees and [...] TIA, Via [facility] 2014 Hospitalization History COPD exacerbation--[facility] 12/27/2015 [facility] History [facility] - [facility] 02/2016 Hospitalization History [facility] pneumonia 11/2016 Hospitalization History COPD exacerbation - Dr Hartley Attending 12/2016 Hospitalization History Cough- [facility] [place] 04/10/2017
--- OUTSIDE RECORDS SUMMARY | 2017-08-12 16:03 | XMS REPORT ---
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 Active 2403964 Problem 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 Active 250811662 Problem Mixed hyperlipidemia E78.2 Active 056289924 Problem Chronic obstructive pulmonary disease, unspecified COPD type J44.9 Active 92565235 Problem Gastroesophageal reflux disease without esophagitis K21.9 Active 380195167 Problem Chronic GERD K21.9 Active 069170524 Problem Type 2 diabetes mellitus with diabetic neuropathy, without long-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 Active 87428448 Problem Allergic rhinitis, unspecified allergic rhinitis trigger, unspecified rhinitis seasonality J30.9 Active 06370463 Problem Chronic pain syndrome G89.4 Active 537605150 Problem Osteoarthritis of both knees, unspecified osteoarthritis type M17.0 Active 427163471 ALLERGIES No Information ENCOUNTERS Encounter Location Date Diagnosis [place] [id number] [place] [address] 85177- 9244 Jun, 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 [place] [id number] [place] [address] 54106- 0756 Jun, [place] [id number] [place] [address] 52709- 7296 Jun, Gastroesophageal reflux disease without esophagitis K21.9 [place] [id number] [place] [address] 89410- 2999 Jun, Allergic rhinitis, unspecified allergic rhinitis trigger, unspecified rhinitis seasonality J30.9 [facility] [address] [id number] [place] [address] 04279- 6696 Jun, Chronic pain syndrome G89.4 [facility] [id number] [place] [address] 86794- 8325 May, [place] [address] 40106- 6078 May, COPD with acute exacerbation J44.1 [place] [address] 28321- 1608 14 May, 2017 Type 2 diabetes mellitus with diabetic neuropathy, without long-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 ; COPD with acute exacerbation J44.1 ; Hypoxia R09.02 ; Chronic pain syndrome G89.4 ; Yeast dermatitis B37.2 ; 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 and 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 [place] [address] 32825- 7517 May, [place] [address] 57343- 4873 May, Chronic pain syndrome G89.4 [place] [address] [place] [id number] [place] [address] 82132- 1971 May, [place] [address] 13771- 2876 May, [place] [address] [place] [id number] [place] [address] 55276- 8758 May, Mixed hyperlipidemia E78.2 [facility] [address] 25414- 9652 15 May, 2017 Chronic pain syndrome G89.4 [facility] [address] [place] [id number] [place] [address] 36442- 4586 May, Anxiety F41.9 and Chronic pain syndrome G89.4 [facility] [address] [address] 7510 Mar, [facility] [address] [address] 9436 Mar, [facility] [address] [address] 1933 Mar, [facility] [id number] [place] [address] 97083- 4700 Mar, [facility] [id number] [place] [address] 50191- 5194 Mar, [facility] [address] [place] [id number] [place] [address] 41982- 8516 Mar, Anxiety F41.9 and Chronic pain syndrome G89.4 [place] [address] [address] 2309 Mar, Medicare annual wellness visit, initial Z00.00 [...] Hiatal hernia K44.9 and Actinic keratosis L57.0 [facility] [address] [address]- 7791 Mar, [facility] [address] [id number] [place] [address] 88608- 7429 Mar, Chronic pain syndrome G89.4 [facility] [address] [address]- 1534 Feb, [facility] [id number] [place] [address] 58470- 4884 Feb, Chronic pain syndrome G89.4 [facility] [id number] [place] [address] 25688- 0920 Feb, [facility] [id number] [place] [address] 39605- 2164 Feb, [facility] [address] 29577- 3616 Feb, Anxiety F41.9 [facility] [address] 25964- 3896 Feb, [facility] [address] 95467- 7702 Feb, Chronic pain syndrome G89.4 [facility] [address] 35298- 8974 Jan, Essential hypertension I10 [facility] [id number] [place] [address] 49629- 6174 Jan, Chronic pain syndrome G89.4 [facility] [id number] [place] [address] 81625- 6058 Jan, [facility] [id number] [place] [address] 99808- 6987 Jan, Anxiety F41.9 [facility] [address] [id number] [place] [address] 78485- 0189 Jan, Encounter for immunization Z23 and Community acquired pneumonia, unspecified laterality J18.9 [facility] [address] [place] [id number] [place] [address] 95133- 7301 Jan, Type 2 diabetes mellitus with diabetic neuropathy, without long-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 [facility] [address] [address] [id number] [place] [address] 37452- 8326 Dec, Anxiety F41.9 and Chronic pain syndrome G89.4 [facility] [address] [place] [address]- 0271 Dec, Chronic pain syndrome G89.4 and Essential hypertension I10 [facility] [address] [address] [id number] [place] [address] 02847- 4827 16 Dec, 2016 [facility] [id number] [place] [address] 82793- 2856 Dec, Anxiety F41.9 [facility] [address] 63965 2542 Dec, [facility] [address] [id number] [place] [address] 18229- 7382 04 Dec, 2016 Type 2 diabetes mellitus with diabetic neuropathy, without long-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 ; Lactic acidosis E87.2 ; Chronic obstructive pulmonary disease, unspecified COPD type J44.9 and Encounter for immunization Z23 [facility] [id number] [place] [address] 83457- 1798 Dec, Chronic pain syndrome G89.4 [facility] [id number] [place] [address] 30277 2543 28 Nov, 2016 [facility] [id number] [place] [address] 11944 2547 Nov, Chronic pain syndrome G89.4 [facility] [id number] [place] [address] 17883 2546 Nov, [facility] [id number] [place] [address] 43697 2549 Nov, [facility] [id number] [place] [address] 25959 2545 15 Nov, 2016 Anxiety F41.9 [facility] [address] [id number] [place] [address] 44890 2544 11 Nov, 2016 Anxiety F41.9 [facility] [id number] [place] [address] 63661 2546 08 Nov, 2016 [facility] [id number] [address]- 8216 Nov, [facility] [id number] [place] [address] 09364- 9355 Nov, [facility] [address] [id number] [place] [address] 02149- 8805 Oct, [facility] [address] [id number] [place] [address] 62666- 6964 Oct, [facility] [address] [id number] [place] [address] 42748- 7116 Oct, [facility] [address] [address] [id number] [place] [address] 45877- 2160 Oct, Essential hypertension I10 and Chronic pain syndrome G89.4 [facility] [address] [address] [id number] [place] [address] 07464- 6214 Oct, Anxiety F41.9 [facility] [address] [address] [id number] [place] [address] 11539- 3350 Oct, [facility] [address] [address] [id number] [place] [address] 73998- 1471 Oct, Chronic pain syndrome G89.4 [facility] [address], [place] [address] Oct, Sore throat J02.9 and Acute nasopharyngitis (common cold) J00 [facility] [address] [address]- 1319 Sep, [facility] [id number] [place] [address] 00655- 2498 Sep, COPD exacerbation J44.1 [facility] [address] [address] [id number] [place] [address] 24800- 1586 Sep, Chronic pain syndrome G89.4 [facility] [address], [place] [address]- 6147 Sep, Essential hypertension I10 [facility] [id number] [place] [address] 82450- 9762 Sep, [facility] [id number] [place] [address] 80843- 4498 Sep, [facility] [id number] [place] [address] 18346- 1005 Sep, Anxiety F41.9 [facility] [address] [id number] [place] [address] 77641- 1850 Sep, Chronic pain syndrome G89.4 [facility] [id number] [place] [address] 83464- 6315 Sep, [facility] [id number] [place] [address] 23859- 2483 Aug, Acute seasonal allergic rhinitis, unspecified trigger J30.2 ; Hiatal hernia K44.9 and Chronic pain syndrome G89.4 [facility] [id number] [place] [address] 28718- 0027 Aug, [facility] [address] [id number] [place] [address] 61345- 8793 Aug, [facility] [id number] [place] [address] 46350- 2676 Aug, Chronic obstructive pulmonary disease, unspecified COPD type J44.9 [facility] [address] [id number] [place] [address] 94340- 7437 Aug, Anxiety F41.9 [facility] [address] [id number] [place] [address] 66520- 8034 08 Aug, 2016 Chronic pain syndrome G89.4 [facility] [id number] [place] [address] 17104- 3935 Aug, Hiatal hernia K44.9 and Actinic keratosis L57.0 [facility] [address] [place] [id number] [place] [address] 52984- 5016 Aug, [facility] [address], [place] [address]- 5053 Aug, Anxiety F41.9 [facility] [address] [id number] [place] [address] 20654- 1300 July, [facility] [address] [id number] [place] [address] 48580- 0844 July, Hiatal hernia K44.9 [facility] [address] [id number] [place] [address] 16769- 6282 July, [facility] [address] [id number] [place] [address] 85779- 3186 July, Anxiety F41.9 and Chronic pain syndrome G89.4 [facility] [address] [id number] [place] [address] 51651- 9300 July, [facility] [id number] [place] [address] 43929- 6720 Jun, Chronic pain syndrome G89.4 [facility] [address] [id number] [place] [address] 38648- 1319 Jun, Chronic pain syndrome G89.4 [facility] [address] [id number] [place] [address] 80373- 6154 Jun, [facility] [id number] [place] [address] 46098- 3393 Jun, Anxiety F41.9 [facility] [address] [id number] [place] [address] 20607- 5634 Jun, Allergic rhinitis, unspecified allergic rhinitis trigger, unspecified rhinitis seasonality J30.9 [facility] [address] [id number] [place] [address] 27928- 0052 Jun, [facility] [id number] [place] [address] 18365- 4228 May, Chronic pain syndrome G89.4 [facility] [id number] [place] [address] 17594- 4392 May, [place] [address], [place] [address]- 7026 May, [address] [place] [address] 4500 May, Anxiety F41.9 [address] [place] [address] 02535- 9583 May, Type 2 diabetes mellitus with diabetic [...] Anxiety F41.9 and Chronic pain syndrome G89.4 [place] [id number] [place] [address] 12240- 0515 May, Essential hypertension I10 ; Type 2 diabetes mellitus with diabetic neuropathy, without long-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 ; Mixed hyperlipidemia E78.2 ; Chronic obstructive pulmonary disease, unspecified COPD type J44.9 and Chronic GERD K21.9 [address] [place] [address] 43856- 9640 May, [address] [address]- 1178 May, [place] [id number] [place] [address] 08837- 6078 May, Type 2 diabetes mellitus with diabetic neuropathy, without long-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 [place] [id number] [place] [address] 24358- 8126 May, Dementia without behavioral disturbance, unspecified dementia type F03.90 [place] [id number] [place] [address] 24003- 7728 May, Type 2 diabetes mellitus with diabetic neuropathy, without long-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 ; Essential hypertension I10 ; Mixed hyperlipidemia E78.2 ; Chronic obstructive pulmonary disease, unspecified COPD type J44.9 ; Chronic GERD K21.9 and Osteoarthritis of both knees, unspecified osteoarthritis type M17.0 [place] [address] [place] [id number] [place] [address] 64639- 6037 May, [place] [address] 12061- 8490 May, [place] [address] [place] [id number] [place] [address] 87540- 9555 May, Anxiety F41.9 and Unspecified symptoms and signs involving cognitive functions and awareness R41.9 [place] [address] [place] [id number] [place] [address] 25261- 3453 May, [place] [address] 26764- 5261 May, Type 2 diabetes mellitus with diabetic neuropathy, without long-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 ; Anxiety F41.9 and Chronic obstructive pulmonary disease, unspecified COPD type J44.9 [place] [address] [place] [address] [id number] [place] [address] 54435- 7229 May, [place] [address] [place] [address] [id number] [place] [address] 97999- 2581 May, [place] [address] [place] [address] [id number] [place] [address] 24383- 9552 May, [place] [address] [place] [address] [id number] [place] [address] 36795- 0275 May, Chronic obstructive pulmonary disease, unspecified COPD type J44.9 [place] [address] [place] [address] [id number] [place] [address] 35920- 6280 Mar, [place] [address] [id number] [place] [address] 09088- 9304 27 Blas, 2017 Arthritis of both knees M19.90 [place] [address] [place] [address] [id number] [place] [address] 56602- 3671 16 Mar, 2016 Type 2 diabetes mellitus with diabetic neuropathy, without long-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 [place] [address] [place] [address] [id number] [place] [address] 11433- 6608 Mar, [place] [address] 03116- 6092 Mar, Neck pain M54.2 and Weakness generalized R53.1 [place] [address] 56028- 0473 Mar, [place] [address] 33068- 8137 Mar, Cervicalgia M54.2 and Impacted cerumen of both ears H61.23 [place] [address] 32379- 4846 Mar, [place] [address] [place] [id number] [place] [address] 91435- 8151 Mar, Type 2 diabetes mellitus with diabetic neuropathy, without long-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 [place] [address] [place] [id number] [place] [address] 41545- 7794 Feb, [place] [address] [place] [id number] [place] [address] 11078- 3155 Feb, Hypoxia R09.02 [place] [address] [id number] [place] [address] 86272- 8733 Feb, [place] [address] [id number] [place] [address] 68463- 7926 Feb, [place] [address] [id number] [place] [address] 97520- 2268 Feb, [place] [address] [id number] [place] [address] 15284- 0374 Feb, Type 2 diabetes mellitus with diabetic neuropathy, without long-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 [facility] [address], [place] [address]- 1442 Feb, Osteoarthritis of both knees, unspecified osteoarthritis type M17.0 [facility] [address], [place] [address]- 1187 Feb, [facility] [id number] [place] [address] 89314- 5185 Feb, [facility] [address] [id number] [place] [address] 04877- 6445 Feb, [place] [address] [id number] [place] [address] 88283- 7389 Jan, [facility] [id number] [place] [address] 01708- 5390 Jan, [facility] [id number] [place] [address] 35056- 1081 Jan, [facility] [id number] [place] [address] 53542- 7633 Jan, [facility] [id number] [place] [address] 75666- 4022 Jan, Tinea pedis of both feet B35.3 [place] [id number] [place] [address] 20169- 4320 Jan, Type 2 diabetes mellitus with diabetic [...] seasonality J30.9 and Encounter for immunization Z23 [place] [id number], [place] [address]- 5741 Jan, [facility] [address], [place] [address]- 6777 Jan, [facility] [address], [place] [address]- 7421 Dec, [facility] [id number] [place] [address] 76314- 1182 Dec, [facility] [address], [place] [address]9 Dec, Unspecified asthma with (acute) exacerbation J45.901 and Chronic obstructive pulmonary disease with (acute) exacerbation J44.1 [facility] [address], [place] [address]- 2932 Dec, Arthritis of both knees M19.90 and Acute medial meniscus tear, right, initial encounter S83.241A [facility] [address], [place] [address]- 8293 Dec, [facility] [address], [place] [address]- 8116 Dec, [facility] [id number] [address]- 2123 Dec, [facility] [address], [place] [address]- 3357 Dec, [facility] [address], [place] [address]- 7993 Dec, History of pneumonia Z87.01 [facility] [address], [place] [address]- 5269 Dec, [facility] [address], [place] [address]- 8568 Dec, [facility] [address], [place] [address]- 2452 Dec, [place] [address], [place] [address]- 7147 Dec, [place] [id number] [place] [address] 63189- 6186 Dec, [place] [id number] [place] [address] 93336- 8329 Dec, [place] [address] [id number] [place] [address] 97123- 5032 30 Nov, 2015 Cough R05 and Pneumonia due to infectious organism, unspecified laterality, unspecified part of lung J18.9 [place] [id number] [place] [address] 39603- 6656 Nov, [place] [id number] [place] [address] 31158- 4677 22 Nov, 2015 Type 2 diabetes mellitus [...] allergic rhinitis trigger, unspecified rhinitis seasonality J30.9 [place] [id number] [place] [address] 87796- 7878 12 Nov, 2015 IMMUNIZATIONS No Known Immunizations SOCIAL HISTORY Never Assessed REASON FOR VISIT Refill request PLAN OF CARE VITAL SIGNS MEDICATIONS Medication Instructions Dosage Frequency Start Date End Date Duration Status Viibryd 10 mg Orally Once a day 1 tablet with food 24h Active RESULTS No Results PROCEDURES No Known procedures INSTRUCTIONS MEDICATIONS ADMINISTERED No Known Medications MEDICAL (GENERAL) HISTORY Type Description Date Medical History hypertension Medical History chronic obstructive pulmonary disease (COPD)-wears 2L O2 per [place], uses [place] for home O2 Medical History Arthritis-knees and [...] History TURP 2003 Surgical History EGD Colonoscopy [facility] 06/06/2016 Hospitalization History TIA, [facility] 2014 Hospitalization History COPD exacerbation--[facility] 12/27/2015 [facility]2016 [facility] 11/2016 Hospitalization History COPD exacerbation - Dr Hartley Attending 12/2016 Hospitalization History Cough- [facility] 04/10/2017
--- OUTSIDE RECORDS SUMMARY | 2017-08-12 16:06 | XMS REPORT ---
Author Author ASIM LINARES 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 Active 9976548 Problem 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 Active 506924259 Problem Mixed hyperlipidemia E78.2 Active 081295932 Problem Chronic obstructive pulmonary disease, unspecified COPD type J44.9 Active 54696093 Problem Gastroesophageal reflux disease without esophagitis K21.9 Active 782092008 Problem Chronic GERD K21.9 Active 430164603 Problem Type 2 diabetes mellitus with diabetic neuropathy, without long-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 Active 90387000 Problem Allergic rhinitis, unspecified allergic rhinitis trigger, unspecified rhinitis seasonality J30.9 Active 65347021 Problem Chronic pain syndrome G89.4 Active 410201296 Problem Osteoarthritis of both knees, unspecified osteoarthritis type M17.0 Active 020199491 ALLERGIES No Information ENCOUNTERS Encounter Location Date Diagnosis [facility] [id number] [address] July, [facility] [address] [address] July, [facility] [id number] [place] [address] 35121- 5762 July, [facility] [address] [address] July, [facility] [id number] [place] [address] 33794- 9808 Jun, Chronic pain syndrome G89.4 [facility] [id number] [place] [address] 47087- 6645 Jun, [facility] [id number] [place] [address] 87370- 0086 Jun, [place] [address] 013393- 6343 Jun, 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 [place] [address] 00040- 8642 Jun, [place] [address] 95144- 8421 Jun, Gastroesophageal reflux disease without esophagitis K21.9 [place] [id number] [place] [address] 132335- 3542 Jun, Allergic rhinitis, unspecified allergic rhinitis trigger, unspecified rhinitis seasonality J30.9 [place] [id number] [place] [address] 47044- 3685 Jun, Chronic pain syndrome G89.4 [place] [id number] [place] [address] 71437- 2553 May, [place] [id number] [place] [address] 86962- 1528 May, COPD with acute exacerbation J44.1 [place] [id number]- 3983 14 May, 2017 Type 2 diabetes mellitus with diabetic neuropathy, without long-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 ; COPD with acute exacerbation J44.1 ; Hypoxia R09.02 ; Chronic pain syndrome G89.4 ; Yeast dermatitis B37.2 ; 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 and 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 [place] [id number] [place] [address] 61661- 4831 May, [facility] [address] [address] 2546 May, Chronic pain syndrome G89.4 [facility] [address] [address] 2546 May, [facility] [address] [address] 2546 May, [facility] [id number] [place] [address] 72641 2546 May, Mixed hyperlipidemia E78.2 [facility] [id number] [place] [address] 42959 2546 May, Chronic pain syndrome G89.4 [facility] [address] [address] 2546 May, Anxiety F41.9 and Chronic pain syndrome G89.4 [facility] [address] [address] 2546 Mar, [facility] [address] [place] [address] 01208- 5736 Mar, [facility] [address], [place] [address] 2546 Mar, [facility] [address], [place] [address] 2546 Mar, [facility] [address], [place] [address] 2546 Mar, [facility] [address], [place] [address] 2546 Mar, Anxiety F41.9 and Chronic pain syndrome G89.4 [facility] [address] [address] 2546 Mar, Medicare annual wellness visit, initial [...] Hiatal hernia K44.9 and Actinic keratosis L57.0 [facility] [id number] [place] [address] 83827- 0441 Mar, [facility] [address] 10813- 4381 Mar, Chronic pain syndrome G89.4 [facility] [id number] [place] [address] 41147- 7975 Feb, [facility] [id number] [place] [address] 67547- 2026 Feb, Chronic pain syndrome G89.4 [facility] [id number] [place] [address] 48274- 1372 Feb, [facility] [id number] [place] [address] 31661- 3413 Feb, [facility] [id number] [place] [address] 05435- 4935 Feb, Anxiety F41.9 [facility] [id number] [place] [address] 48095- 1365 Feb, [facility] [id number] [place] [address] 97058- 3350 Feb, Chronic pain syndrome G89.4 [facility] [id number] [place] [address] 46983- 3186 Jan, Essential hypertension I10 [facility] [id number] [place] [address] 92535- 4116 Jan, Chronic pain syndrome G89.4 [facility] [id number] [place] [address] 55639- 1090 Jan, [facility] [address] 71185- 7848 Jan, Anxiety F41.9 [facility] [id number] [place] [address] 28258- 7519 Jan, Encounter for immunization Z23 and Community acquired pneumonia, unspecified laterality J18.9 [facility] [id number] [place] [address] 16223- 7351 Jan, Type 2 diabetes mellitus with diabetic neuropathy, without long-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 [place] [address] 09875- 4008 Dec, Anxiety F41.9 and Chronic pain syndrome G89.4 [place] [address] 85629- 3329 Dec, Chronic pain syndrome G89.4 and Essential hypertension I10 [place] [address] 86786- 4670 Dec, [place] [address] 42453- 4242 Dec, Anxiety F41.9 [facility] [id number] [place] [address] 68392- 7667 Dec, [facility] [id number] [place] [address] 39928- 5598 Dec, Type 2 diabetes mellitus with diabetic neuropathy, without long-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 ; Lactic acidosis E87.2 ; Chronic obstructive pulmonary disease, unspecified COPD type J44.9 and Encounter for immunization Z23 [facility] [id number] [place] [address] 31617- 4058 Dec, Chronic pain syndrome G89.4 [place] [address] 67487- 8939 28 Nov, 2016 [facility] [address] [place] [address] 38056 2548 Nov, Chronic pain syndrome G89.4 [facility] [address], [place] [address] 2546 Nov, [facility] [id number] [place] [address] 31680 2544 Nov, 2016 [facility] [id number] [place] [address] 80847 2549 15 Nov, 2016 Anxiety F41.9 [facility] [id number] [place] [address] 72319- 8216 11 Nov, 2016 Anxiety F41.9 [facility] [id number] [place] [address] 72031- 6595 08 Nov, 2016 [facility] [id number] [place] [address] 37217- 7533 05 Nov, 2016 [facility] [address] [place] [address] 09113- 0282 Nov, [facility] [id number] [place] [address] 23818- 9332 Oct, [facility] [address] [place] [address] 77958- 4036 Oct, [facility] [address] [place] [address] 69256- 2544 Oct, [facility] [address] [place] [address] 90857- 0128 Oct, Essential hypertension I10 and Chronic pain syndrome G89.4 [facility] [address] [place] [address] 87254- 8703 Oct, Anxiety F41.9 [facility] [address] [place] [address] 47956- 2549 09 Oct, 2016 [facility] [id number] [place] [address] 91888- 4278 Oct, Chronic pain syndrome G89.4 [facility] [id number] [place] [address] 58755 -5883 Oct, Sore throat J02.9 and Acute nasopharyngitis (common cold) J00 [facility] [address] 46336- 9408 Sep, [facility] [address] 22264- 9018 Sep, COPD exacerbation J44.1 [facility] [address] 68456- 8181 Sep, Chronic pain syndrome G89.4 [facility] [id number] [place] [address] 34106- 1112 Sep, Essential hypertension I10 [facility] [address] 33015- 1508 Sep, [facility] [id number] [place] [address] 38137- 7152 Sep, [facility] [id number] [place] [address] 96392- 0319 Sep, Anxiety F41.9 [facility] [id number] [place] [address] 47552- 2538 Sep, Chronic pain syndrome G89.4 [facility] [id number] [place] [address] 78133- 4099 Sep, [facility] [id number] [place] [address] 92280- 1099 Aug, Acute seasonal allergic rhinitis, unspecified trigger J30.2 ; Hiatal hernia K44.9 and Chronic pain syndrome G89.4 [facility] [id number] [place] [address] 30396- 6154 Aug, [facility] [address], [place] [address]- 9092 Aug, [facility] [id number] [place] [address] 94587- 8617 Aug, Chronic obstructive pulmonary disease, unspecified COPD type J44.9 [facility] [id number] [place] [address] 18640- 7900 14 Aug, 2016 Anxiety F41.9 [facility] [id number] [place] [address] 50015- 0010 08 Aug, 2016 Chronic pain syndrome G89.4 [facility] [id number] [place] [address] 33682- 8384 Aug, Hiatal hernia K44.9 and Actinic keratosis L57.0 [facility] [id number] [place] [address] 38641- 8434 Aug, [facility] [id number] [place] [address] 47583- 4162 Aug, Anxiety F41.9 [facility] [id number] [place] [address] 31922- 5561 July, [facility] [id number] [place] [address] 66143- 6574 July, Hiatal hernia K44.9 [facility] [id number] [place] [address] 69604- 1933 July, [facility] [id number] [place] [address] 69018- 5457 July, Anxiety F41.9 and Chronic pain syndrome G89.4 [facility] [id number] [place] [address] 66199- 9135 July, [facility] [id number] [place] [address] 83200- 6332 Jun, Chronic pain syndrome G89.4 [facility] [id number] [place] [address] 83103- 5864 Jun, Chronic pain syndrome G89.4 [facility] [address] [place] [address] 32623- 2394 Jun, [facility] [id number] [place] [address] 29659- 4971 Jun, Anxiety F41.9 [facility] [id number] [place] [address] 964055- 2913 Jun, Allergic rhinitis, unspecified allergic rhinitis trigger, unspecified rhinitis seasonality J30.9 [facility] [id number] [place] [address] 76961- 8527 Jun, [facility] [id number] [place] [address] 42674- 1861 May, Chronic pain syndrome G89.4 [facility] [id number] [place] [address] 46982- 7467 May, [facility] [id number] [place] [address] 12340- 1316 May, [facility] [id number] [place] [address] 08378- 5052 May, Anxiety F41.9 [facility] [id number] [place] [address] 25477- 3921 May, Type 2 diabetes mellitus with diabetic [...] Anxiety F41.9 and Chronic pain syndrome G89.4 [facility] [address], [place] [address]- 3416 May, Essential hypertension I10 ; Type 2 diabetes mellitus with diabetic neuropathy, without long-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 ; Mixed hyperlipidemia E78.2 ; Chronic obstructive pulmonary disease, unspecified COPD type J44.9 and Chronic GERD K21.9 [place] [address] 41742- 8262 May, [place] [id number] [place] [address] 22690- 6221 May, [place] [address]29538- 2837 May, Type 2 diabetes mellitus with diabetic neuropathy, without long-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 [place] [address] 929533- 6583 May, Dementia without behavioral disturbance, unspecified dementia type F03.90 [place] [address] 54494- 0438 May, Type 2 diabetes mellitus with diabetic neuropathy, without long-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 ; Essential hypertension I10 ; Mixed hyperlipidemia E78.2 ; Chronic obstructive pulmonary disease, unspecified COPD type J44.9 ; Chronic GERD K21.9 and Osteoarthritis of both knees, unspecified osteoarthritis type M17.0 [place] [id number] [place] [address] 14447- 4896 May, [place] [id number] [place] [address] 79119- 8523 May, [place] [id number] [place] [address] 16752- 6892 May, Anxiety F41.9 and Unspecified symptoms and signs involving cognitive functions and awareness R41.9 [place] [address] 04598- 3116 May, [place] [id number] [place] [address] 70440- 9233 May, Type 2 diabetes mellitus with diabetic neuropathy, without long-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 ; Anxiety F41.9 and Chronic obstructive pulmonary disease, unspecified COPD type J44.9 [facility] [id number] [place] [address] 80123- 0457 May, [facility] [address] 84471- 9017 May, [facility] [address] 70248- 3344 May, [place] [address] 36556- 6353 May, Chronic obstructive pulmonary disease, unspecified COPD type J44.9 [place] [address] 84288- 2291 Mar, [place] [address] 93130- 5892 Mar, Arthritis of both knees M19.90 [place] [address] 33630- 1091 Mar, Type 2 diabetes mellitus with diabetic neuropathy, without long-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 [place] [address] 66146- 7848 Mar, [place] [address] 89848- 9662 Mar, Neck pain M54.2 and Weakness generalized R53.1 [place] [address] 66959- 9045 Mar, [place] [address] 43173- 5339 Mar, Cervicalgia M54.2 and Impacted cerumen of both ears H61.23 [place] [address] 44268- 1409 Mar, [place] [address] 42448- 9558 Mar, Type 2 diabetes mellitus with diabetic neuropathy, without long-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 [facility] [address] [address]- 7186 29 Feb, 2016 [facility] [address], [place] [address]- 3930 Feb, Hypoxia R09.02 [facility] [id number] [place] [address] 28369- 3270 Feb, [facility] [address] [place] [address] 13307- 0283 Feb, [facility] [id number] [place] [address] 74659- 9639 Feb, [facility] [id number] [place] [address] 12149- 5570 16 Feb, 2016 Type 2 diabetes mellitus with diabetic neuropathy, without long-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 [facility] [address], [place] [address]- 7927 15 Feb, 2016 Osteoarthritis of both knees, unspecified osteoarthritis type M17.0 [facility] [address], [place] [address]- 4523 14 Feb, 2016 [facility] [address] [address]- 2572 Feb, [facility] [address] [address]- 7725 09 Feb, 2016 [facility] [address], [place] [address]- 0807 Jan, [facility] [id number] [place] [address] 57673- 8369 15 Jan, 2016 [facility] [address], [place] [address]- 0692 14 Jan, 2016 [facility] [id number] [place] [address] 11045- 3904 Jan, [place] [address] 46080- 5931 Jan, Tinea pedis of both feet B35.3 [place] [address] 23739- 6706 Jan, Type 2 diabetes mellitus with diabetic [...] seasonality J30.9 and Encounter for immunization Z23 [place] [address] 92630- 0523 Jan, [place] [address] 48936- 6565 Jan, [place] [address] 25863- 3613 Dec, [place] [address] 98971- 8400 Dec, [facility] [id number] [place] [address] 85570 -4260 Dec, Unspecified asthma with (acute) exacerbation J45.901 and Chronic obstructive pulmonary disease with (acute) exacerbation J44.1 [place] [address] 82374- 1549 Dec, Arthritis of both knees M19.90 and Acute medial meniscus tear, right, initial encounter S83.241A [place] [address] 95816- 7053 Dec, [place] [address] [address]- 2767 14 Dec, 2015 [facility] [address] [address]- 2395 Dec, [facility] [address] [address]- 7544 Dec, [facility] [address] [place] [address] 25237- 9236 Dec, History of pneumonia Z87.01 [facility] [address] [address]- 4337 Dec, [facility] [address], [place] [address]- 8130 Dec, [facility] [address] [address]- 1003 Dec, [facility] [address] [address]- 0088 Dec, [facility] [address], [place] [address]- 9672 Dec, [facility] [address] [address]- 9858 Dec, [facility] [address] [address]- 7604 Nov, Cough R05 and Pneumonia due to infectious organism, unspecified laterality, unspecified part of lung J18.9 [facility] [id number] [address]- 4415 Nov, [facility] [address] [address]- 8624 Nov, Type 2 diabetes mellitus with diabetic [...] allergic rhinitis trigger, unspecified rhinitis seasonality J30.9 [facility] [address] [facility] [id number] [place] [address]- 0634 12 Nov, 2015 IMMUNIZATIONS No Known Immunizations SOCIAL HISTORY Never Assessed REASON FOR VISIT Medication Inquiry/Controlled Med PLAN OF CARE VITAL SIGNS MEDICATIONS Medication Instructions Dosage Frequency Start Date End Date Duration Status Viibryd 10 mg Orally Once a day 1 tablet with food 24h Active RESULTS No Results PROCEDURES No Known procedures INSTRUCTIONS MEDICATIONS ADMINISTERED No Known Medications MEDICAL (GENERAL) HISTORY Type Description Date Medical History hypertension Medical History chronic obstructive pulmonary disease (COPD)-wears 2L O2 per [place], uses [place] for home O2 Medical History Arthritis-knees and [...] TIA, [facility] 2014 Hospitalization History COPD exacerbation--[facility] 12/27/2015 Hospitalization History [facility] - fall 02/2016 Hospitalization History [facility] pneumonia 11/2016 Hospitalization History COPD exacerbation - Dr Hartley Attending 12/2016 Hospitalization History Cough- [facility] [place] 04/10/2017
--- OUTSIDE RECORDS SUMMARY | 2017-08-12 16:07 | XMS REPORT ---
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 Active 7148839 Problem 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 Active 945877482 Problem Mixed hyperlipidemia E78.2 Active 144880062 Problem Chronic obstructive pulmonary disease, unspecified COPD type J44.9 Active 86228280 Problem Gastroesophageal reflux disease without esophagitis K21.9 Active 582264617 Problem Chronic GERD K21.9 Active 936010058 Problem Type 2 diabetes mellitus with diabetic neuropathy, without long-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 Active 80201358 Problem Allergic rhinitis, unspecified allergic rhinitis trigger, unspecified rhinitis seasonality J30.9 Active 14309780 Problem Chronic pain syndrome G89.4 Active 955783314 Problem Osteoarthritis of both knees, unspecified osteoarthritis type M17.0 Active 824940860 ALLERGIES No Information ENCOUNTERS Encounter Location Date Diagnosis [place] [id number] [place] [address] 75935- 9297 Jun, 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 [place] [id number] [place] [address] 48895- 0213 Jun, [place] [id number] [place] [address] 01769- 5836 Jun, Gastroesophageal reflux disease without esophagitis K21.9 [place] [id number] [place] [address] 48999- 5270 Jun, Allergic rhinitis, unspecified allergic rhinitis trigger, unspecified rhinitis seasonality J30.9 [facility] [id number] [place] [address] 70364- 6910 Jun, Chronic pain syndrome G89.4 [facility] [id number] [place] [address] 58349- 4275 May, [place] [address] 99730- 9599 May, COPD with acute exacerbation J44.1 [place] [address] 41973- 7699 14 May, 2017 Type 2 diabetes mellitus with diabetic neuropathy, without long-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 ; COPD with acute exacerbation J44.1 ; Hypoxia R09.02 ; Chronic pain syndrome G89.4 ; Yeast dermatitis B37.2 ; 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 and 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 [place] [address] 97315- 9439 May, [place] [address] 31664- 4035 May, Chronic pain syndrome G89.4 [place] [address] [place] [address] [id number] [place] [address] 98487- 4054 May, [place] [address] 39350- 7074 May, [place] [address] [address] [id number] [place] [address] 22389- 6567 May, Mixed hyperlipidemia E78.2 [facility] [address] 22151- 0633 15 May, 2017 Chronic pain syndrome G89.4 [facility] [address] [address] [id number] [place] [address] 20215- 5445 May, Anxiety F41.9 and Chronic pain syndrome G89.4 [facility] [id number] [address] 5492 Mar, [facility] [id number] [address]- 6898 Mar, [facility] [id number] [address]- 1747 Mar, [facility] [id number] [place] [address] 54799- 3405 Mar, [facility] [id number] [place] [address] 45081- 1117 Mar, [facility] [address] [id number] [place] [address] 72536- 3674 Mar, Anxiety F41.9 and Chronic pain syndrome G89.4 [place] [id number] [address]- 4971 Mar, Medicare annual wellness visit, initial Z00.00 [...] Hiatal hernia K44.9 and Actinic keratosis L57.0 [facility] [id number] [address]- 5060 Mar, [facility] [id number] [place] [address] 74554- 2671 Mar, Chronic pain syndrome G89.4 [facility] [id number] [address]- 7172 Feb, [facility] [id number] [place] [address] 13356- 8504 Feb, Chronic pain syndrome G89.4 [facility] [id number] [place] [address] 42237- 6910 Feb, [facility] [id number] [place] [address] 70470- 9597 Feb, [facility] [address] 83157- 7203 Feb, Anxiety F41.9 [facility] [address] 48427- 9071 Feb, [facility] [address] 40914- 4306 Feb, Chronic pain syndrome G89.4 [facility] [address] 45486- 7171 Jan, Essential hypertension I10 [facility] [id number] [place] [address] 77634- 0673 Jan, Chronic pain syndrome G89.4 [facility] [id number] [place] [address] 01224- 0915 Jan, [facility] [id number] [place] [address] 40283- 3081 Jan, Anxiety F41.9 [facility] [id number] [place] [address] 45080- 1210 Jan, Encounter for immunization Z23 and Community acquired pneumonia, unspecified laterality J18.9 [facility] [id number] [place] [address] 63156- 0243 Jan, Type 2 diabetes mellitus with diabetic neuropathy, without long-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 [facility] [id number] [place] [address] 04442- 6578 Dec, Anxiety F41.9 and Chronic pain syndrome G89.4 [facility] [address] [place] [address]- 8667 Dec, Chronic pain syndrome G89.4 and Essential hypertension I10 [facility] [id number] [place] [address] 87396- 0580 16 Dec, 2016 [facility] [id number] [place] [address] 72215- 5798 Dec, Anxiety F41.9 [facility] [address] 78463 2543 Dec, [facility] [id number] [place] [address] 31471- 8453 04 Dec, 2016 Type 2 diabetes mellitus with diabetic neuropathy, without long-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 ; Lactic acidosis E87.2 ; Chronic obstructive pulmonary disease, unspecified COPD type J44.9 and Encounter for immunization Z23 [facility] [id number] [place] [address] 62251- 9739 Dec, Chronic pain syndrome G89.4 [facility] [id number] [place] [address] 16668 2549 28 Nov, 2016 [facility] [id number] [place] [address] 28706 2540 Nov, Chronic pain syndrome G89.4 [facility] [id number] [place] [address] 27924 2546 Nov, [facility] [id number] [place] [address] 40731 2543 Nov, [facility] [id number] [place] [address] 10741 2543 15 Nov, 2016 Anxiety F41.9 [facility] [id number] [place] [address] 09047 2547 11 Nov, 2016 Anxiety F41.9 [facility] [id number] [place] [address] 98051 2546 08 Nov, 2016 [facility] [id number] [address]- 8513 Nov, [facility] [id number] [place] [address] 11701- 7363 Nov, [facility] [id number] [place] [address] 27480- 2948 Oct, [facility] [id number] [place] [address] 00825- 0213 Oct, [facility] [id number] [place] [address] 01080- 0715 Oct, [facility] [id number] [place] [address] 00081- 4165 Oct, Essential hypertension I10 and Chronic pain syndrome G89.4 [facility] [id number] [place] [address] 25902- 9287 Oct, Anxiety F41.9 [facility] [id number] [place] [address] 75621- 9240 Oct, [facility] [id number] [place] [address] 01870- 5451 Oct, Chronic pain syndrome G89.4 [facility] [id number] [address] Oct, Sore throat J02.9 and Acute nasopharyngitis (common cold) J00 [facility] [id number] [address]- 6863 Sep, [facility] [id number] [place] [address] 40419- 3431 Sep, COPD exacerbation J44.1 [facility] [id number] [place] [address] 56502- 5691 Sep, Chronic pain syndrome G89.4 [facility] [id number] [address]- 5312 Sep, Essential hypertension I10 [facility] [id number] [place] [address] 27322- 9418 Sep, [facility] [id number] [place] [address] 86747- 5656 Sep, [facility] [id number] [place] [address] 32991- 2172 Sep, Anxiety F41.9 [facility] [id number] [place] [address] 96035- 2408 Sep, Chronic pain syndrome G89.4 [facility] [id number] [place] [address] 87144- 4995 Sep, [facility] [id number] [place] [address] 18970- 8980 Aug, Acute seasonal allergic rhinitis, unspecified trigger J30.2 ; Hiatal hernia K44.9 and Chronic pain syndrome G89.4 [facility] [id number] [place] [address] 96764- 3976 Aug, [facility] [id number] [place] [address] 33990- 1701 Aug, [facility] [id number] [place] [address] 33582- 2357 Aug, Chronic obstructive pulmonary disease, unspecified COPD type J44.9 [facility] [id number] [place] [address] 08903- 7501 Aug, Anxiety F41.9 [facility] [id number] [place] [address] 55673- 5388 08 Aug, 2016 Chronic pain syndrome G89.4 [facility] [id number] [place] [address] 89363- 2663 Aug, Hiatal hernia K44.9 and Actinic keratosis L57.0 [facility] [id number] [place] [address] 25121- 2302 Aug, [facility] [id number] [address]- 9553 Aug, Anxiety F41.9 [facility] [id number] [place] [address] 29416- 3432 July, [facility] [id number] [place] [address] 74123- 9321 July, Hiatal hernia K44.9 [facility] [id number] [place] [address] 59219- 9337 July, [facility] [id number] [place] [address] 60426- 5199 July, Anxiety F41.9 and Chronic pain syndrome G89.4 [facility] [id number] [place] [address] 87985- 3380 July, [facility] [id number] [place] [address] 62300- 7427 Jun, Chronic pain syndrome G89.4 [facility] [id number] [place] [address] 54460- 9962 Jun, Chronic pain syndrome G89.4 [facility] [id number] [place] [address] 67246- 0235 Jun, [facility] [id number] [place] [address] 36046- 8865 Jun, Anxiety F41.9 [facility] [id number] [place] [address] 35591- 4259 Jun, Allergic rhinitis, unspecified allergic rhinitis trigger, unspecified rhinitis seasonality J30.9 [facility] [id number] [place] [address] 20049- 8508 Jun, [facility] [id number] [place] [address] 62550- 5252 May, Chronic pain syndrome G89.4 [facility] [id number] [place] [address] 57691- 7218 May, [place] [id number] [address]- 4138 May, [id number] [place] [address] 6908 May, Anxiety F41.9 [id number] [place] [address] 98848- 4348 May, Type 2 diabetes mellitus with diabetic [...] Anxiety F41.9 and Chronic pain syndrome G89.4 [place] [id number] [place] [address] 24872- 3707 May, Essential hypertension I10 ; Type 2 diabetes mellitus with diabetic neuropathy, without long-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 ; Mixed hyperlipidemia E78.2 ; Chronic obstructive pulmonary disease, unspecified COPD type J44.9 and Chronic GERD K21.9 [id number] [place] [address] 23853- 4904 May, [id number] [address]- 7027 May, [place] [id number] [place] [address] 62130- 3267 May, Type 2 diabetes mellitus with diabetic neuropathy, without long-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 [place] [id number] [place] [address] 59395- 7098 May, Dementia without behavioral disturbance, unspecified dementia type F03.90 [place] [id number] [place] [address] 59505- 9660 May, Type 2 diabetes mellitus with diabetic neuropathy, without long-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 ; Essential hypertension I10 ; Mixed hyperlipidemia E78.2 ; Chronic obstructive pulmonary disease, unspecified COPD type J44.9 ; Chronic GERD K21.9 and Osteoarthritis of both knees, unspecified osteoarthritis type M17.0 [place] [address] [address] [id number] [place] [address] 75462- 3630 May, [place] [address] 56597- 0946 May, [place] [address] [address] [id number] [place] [address] 29059- 8878 May, Anxiety F41.9 and Unspecified symptoms and signs involving cognitive functions and awareness R41.9 [place] [address] [address] [id number] [place] [address] 74302- 7819 May, [place] [address] 58917- 7988 May, Type 2 diabetes mellitus with diabetic neuropathy, without long-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 ; Anxiety F41.9 and Chronic obstructive pulmonary disease, unspecified COPD type J44.9 [place] [id number] [place] [address] 10176- 0612 May, [place] [address] [id number] [place] [address] 73416- 8200 May, [place] [address] [id number] [place] [address] 22081- 1064 May, [place] [address] [id number] [place] [address] 11368- 5355 May, Chronic obstructive pulmonary disease, unspecified COPD type J44.9 [place] [id number] [place] [address] 84934- 0450 Mar, [place] [address] [id number] [place] [address] 54478- 1146 27 Blas, 2017 Arthritis of both knees M19.90 [place] [address] [id number] [place] [address] 86771- 5456 16 Mar, 2016 Type 2 diabetes mellitus with diabetic neuropathy, without long-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 [place] [address] [id number] [place] [address] 42365- 7079 Mar, [place] [address] 74144- 3396 Mar, Neck pain M54.2 and Weakness generalized R53.1 [place] [address] 93280- 1573 Mar, [place] [address] 61615- 4827 Mar, Cervicalgia M54.2 and Impacted cerumen of both ears H61.23 [place] [address] 18731- 1532 Mar, [place] [address] [id number] [place] [address] 37436- 9805 Mar, Type 2 diabetes mellitus with diabetic neuropathy, without long-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 [place] [address] [id number] [place] [address] 10141- 2668 Feb, [place] [address] [id number] [place] [address] 15051- 0334 Feb, Hypoxia R09.02 [place] [address] [id number] [place] [address] 15969- 3189 Feb, [place] [address] [id number] [place] [address] 63030- 1908 Feb, [place] [address] [id number] [place] [address] 78804- 2671 Feb, [place] [address] [id number] [place] [address] 12907- 5470 Feb, Type 2 diabetes mellitus with diabetic neuropathy, without long-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 [facility] [id number] [address]- 8068 Feb, Osteoarthritis of both knees, unspecified osteoarthritis type M17.0 [facility] [id number] [address]- 0040 Feb, [facility] [id number] [place] [address] 80715- 9435 Feb, [facility] [id number] [place] [address] 99998- 0348 Feb, [place] [address] [id number] [place] [address] 66587- 4620 Jan, [facility] [id number] [place] [address] 58287- 2686 Jan, [facility] [id number] [place] [address] 02710- 3788 Jan, [facility] [id number] [place] [address] 53203- 3781 Jan, [facility] [id number] [place] [address] 18409- 7196 Jan, Tinea pedis of both feet B35.3 [place] [id number] [place] [address] 53582- 3612 Jan, Type 2 diabetes mellitus with diabetic [...] seasonality J30.9 and Encounter for immunization Z23 [place] [address] [id number] [address]- 2523 Jan, [facility] [id number] [address]- 7513 Jan, [facility] [id number] [address]- 7100 Dec, [facility] [id number] [place] [address] 85793- 6015 Dec, [facility] [id number] [address] Dec, Unspecified asthma with (acute) exacerbation J45.901 and Chronic obstructive pulmonary disease with (acute) exacerbation J44.1 [facility] [id number] [address]- 4448 Dec, Arthritis of both knees M19.90 and Acute medial meniscus tear, right, initial encounter S83.241A [facility] [id number] [address]- 0431 Dec, [facility] [id number] [address]- 4398 Dec, [facility] [id number] [address]- 5633 Dec, [facility] [id number] [address]- 9878 Dec, [facility] [id number] [address]- 9856 Dec, History of pneumonia Z87.01 [facility] [id number] [address]- 9305 Dec, [facility] [id number] [address]- 8236 Dec, [facility] [id number] [address]- 8426 Dec, [place] [id number] [address]- 3975 Dec, [place] [id number] [place] [address] 13976- 4886 Dec, [place] [id number] [place] [address] 85605- 3064 Dec, [place] [id number] [place] [address] 35902- 4572 30 Nov, 2015 Cough R05 and Pneumonia due to infectious organism, unspecified laterality, unspecified part of lung J18.9 [place] [id number] [place] [address] 23210- 0193 Nov, [place] [id number] [place] [address] 25824- 5524 22 Nov, 2015 Type 2 diabetes mellitus [...] allergic rhinitis trigger, unspecified rhinitis seasonality J30.9 [place] [id number] [place] [address] 06522- 5083 12 Nov, 2015 IMMUNIZATIONS No Known Immunizations SOCIAL HISTORY Never Assessed REASON FOR VISIT PLAN OF CARE VITAL SIGNS MEDICATIONS Unknown Medications RESULTS No Results PROCEDURES No Known procedures INSTRUCTIONS MEDICATIONS ADMINISTERED No Known Medications MEDICAL (GENERAL) HISTORY Type Description Date Medical History hypertension Medical History chronic obstructive pulmonary disease (COPD)-wears 2L O2 per [place], uses [place] for home O2 Medical History Arthritis-knees and [...] Attending 12/2016 Hospitalization History Cough- [facility] 04/10/2017
--- OUTSIDE RECORDS SUMMARY | 2017-08-12 16:08 | XMS REPORT ---
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 Name Role Phone ERIKKathy ASIM Unavailable PROBLEMS Type Condition ICD9-CM Code PAP84-LD Code Onset Dates Condition Status SNOMED Code Problem Hypoxia R09.02 Active 295488880 Problem Anxiety F41.9 Active 46244009 Problem Essential hypertension I10 Active 38726971 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 Active 0363623 Problem 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 Active 214257496 Problem Mixed hyperlipidemia E78.2 Active 892547033 Problem Chronic obstructive pulmonary disease, unspecified COPD type J44.9 Active 88711206 Problem Gastroesophageal reflux disease without esophagitis K21.9 Active 403487730 Problem Chronic GERD K21.9 Active 370990199 Problem Type 2 diabetes mellitus with diabetic neuropathy, without long-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 Active 43695781 Problem Allergic rhinitis, unspecified allergic rhinitis trigger, unspecified rhinitis seasonality J30.9 Active 22695847 Problem Chronic pain syndrome G89.4 Active 959243638 Problem Osteoarthritis of both knees, unspecified osteoarthritis type M17.0 Active 862848546 ALLERGIES No Information ENCOUNTERS Encounter Location Date Diagnosis [place] [id number] [place] [address] 92247- 8086 Jun, 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 [place] [id number] [place] [address] 71076- 1195 Jun, [place] [address] [place] [address] 37057- 2801 Jun, Gastroesophageal reflux disease without esophagitis K21.9 [place] [address] [place] [address] 06454- 8984 Jun, Allergic rhinitis, unspecified allergic rhinitis trigger, unspecified rhinitis seasonality J30.9 [facility] [address] [place] [id number] [place] [address] 24669- 2853 Jun, Chronic pain syndrome G89.4 [facility] [address] [place] [id number] [place] [address] 71674- 3658 May, [place] [address] 59585- 7575 May, COPD with acute exacerbation J44.1 [place] [address] 37723- 3834 14 May, 2017 Type 2 diabetes mellitus with diabetic neuropathy, without long-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 ; COPD with acute exacerbation J44.1 ; Hypoxia R09.02 ; Chronic pain syndrome G89.4 ; Yeast dermatitis B37.2 ; 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 and 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 [place] [address] 39705- 2314 May, [place] [address] 02466- 5601 May, Chronic pain syndrome G89.4 [place] [address] [place] [id number] [place] [address] 07518- 1714 May, [place] [address] 45708- 0866 May, [place] [address] [place] [id number] [place] [address] 42831- 9415 May, Mixed hyperlipidemia E78.2 [facility] [address] 60594- 5843 15 May, 2017 Chronic pain syndrome G89.4 [facility] [address] [place] [id number] [place] [address] 83818- 9776 May, Anxiety F41.9 and Chronic pain syndrome G89.4 [facility] [address] [address] 3296 Mar, [facility] [address] [address] 2957 Mar, [facility] [address] [address]- 7687 Mar, [facility] [address] [place] [id number] [place] [address] 15880- 6903 Mar, [facility] [address] [place] [address] 08882- 7619 Mar, [facility] [address] [place] [id number] [place] [address] 44958- 7812 Mar, Anxiety F41.9 and Chronic pain syndrome G89.4 [place] [address] [address]- 8423 Mar, Medicare annual wellness visit, initial Z00.00 [...] Hiatal hernia K44.9 and Actinic keratosis L57.0 [facility] [address] [address]- 8086 Mar, [facility] [address] [place] [id number] [place] [address] 35021- 3516 Mar, Chronic pain syndrome G89.4 [facility] [address] [address]- 4865 Feb, [facility] [address] [place] [id number] [place] [address] 79170- 5491 Feb, Chronic pain syndrome G89.4 [facility] [address] [place] [id number] [place] [address] 49008- 3631 Feb, [facility] [address] [place] [id number] [place] [address] 15868- 9409 Feb, [facility] [address] 82292- 8674 Feb, Anxiety F41.9 [facility] [address] 48879- 0468 Feb, [facility] [address] 59212- 0169 Feb, Chronic pain syndrome G89.4 [facility] [address] 52914- 3133 Jan, Essential hypertension I10 [facility] [address] [place] [id number] [place] [address] 49688- 1567 Jan, Chronic pain syndrome G89.4 [facility] [address] [place] [id number] [place] [address] 29028- 4606 Jan, [facility] [address] [place] [id number] [place] [address] 67871- 4082 Jan, Anxiety F41.9 [facility] [address] [place] [id number] [place] [address] 74758- 7213 Jan, Encounter for immunization Z23 and Community acquired pneumonia, unspecified laterality J18.9 [facility] [address] [place] [id number] [place] [address] 55885- 5718 Jan, Type 2 diabetes mellitus with diabetic neuropathy, without long-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 [facility] [address] [place] [id number] [place] [address] 31054- 1704 Dec, Anxiety F41.9 and Chronic pain syndrome G89.4 [facility] [address] [place] [address]- 4881 Dec, Chronic pain syndrome G89.4 and Essential hypertension I10 [facility] [address] [place] [id number] [place] [address] 71219- 4739 16 Dec, 2016 [facility] [address] [place] [id number] [place] [address] 26789- 7393 Dec, Anxiety F41.9 [facility] [address] 49572 2540 Dec, [facility] [address] [place] [id number] [place] [address] 75172- 7156 04 Dec, 2016 Type 2 diabetes mellitus with diabetic neuropathy, without long-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 ; Lactic acidosis E87.2 ; Chronic obstructive pulmonary disease, unspecified COPD type J44.9 and Encounter for immunization Z23 [facility] [address] [place] [id number] [place] [address] 63612- 6420 Dec, Chronic pain syndrome G89.4 [facility] [address] [place] [id number] [place] [address] 40180 2544 28 Nov, 2016 [facility] [address] [place] [id number] [place] [address] 20707 2545 Nov, Chronic pain syndrome G89.4 [facility] [address] [place] [address] 46918 2546 Nov, [facility] [address] [place] [id number] [place] [address] 70895 2540 Nov, [facility] [address] [place] [id number] [place] [address] 69874 2540 15 Nov, 2016 Anxiety F41.9 [facility] [address] [place] [id number] [place] [address] 07522 2540 11 Nov, 2016 Anxiety F41.9 [facility] [address] [place] [address] 23448 2546 08 Nov, 2016 [facility] [address] [place] [id number] [address]- 2693 Nov, [facility] [address] [place] [address] 29263- 0125 Nov, [facility] [address] [place] [id number] [place] [address] 88053- 8774 Oct, [facility] [address] [place] [id number] [place] [address] 83713- 6294 Oct, [facility] [address] [place] [id number] [place] [address] 96483- 2963 Oct, [facility] [address] [place] [id number] [place] [address] 46806- 8860 Oct, Essential hypertension I10 and Chronic pain syndrome G89.4 [facility] [address] [place] [id number] [place] [address] 95132- 0773 Oct, Anxiety F41.9 [facility] [address] [place] [id number] [place] [address] 33622- 7364 Oct, [facility] [address] [place] [id number] [place] [address] 40259- 8891 Oct, Chronic pain syndrome G89.4 [facility] [address] [address]5159 Oct, Sore throat J02.9 and Acute nasopharyngitis (common cold) J00 [facility] [address] [address]- 7879 Sep, [facility] [address] [place] [address] 53378- 3820 Sep, COPD exacerbation J44.1 [facility] [address] [place] [id number] [place] [address] 45579- 1230 Sep, Chronic pain syndrome G89.4 [facility] [address], [place] [address]- 3613 Sep, Essential hypertension I10 [facility] [address] [place] [address] 92172- 3499 Sep, [facility] [address] [place] [id number] [place] [address] 38122- 4753 Sep, [facility] [address] [place] [id number] [place] [address] 88829- 7865 Sep, Anxiety F41.9 [facility] [address] [place] [id number] [place] [address] 29913- 3178 Sep, Chronic pain syndrome G89.4 [facility] [address] [place] [id number] [place] [address] 26900- 0462 Sep, [facility] [address] [place] [id number] [place] [address] 02033- 2979 Aug, Acute seasonal allergic rhinitis, unspecified trigger J30.2 ; Hiatal hernia K44.9 and Chronic pain syndrome G89.4 [facility] [address] [place] [id number] [place] [address] 74403- 4566 Aug, [facility] [address] [place] [id number] [place] [address] 72718- 3085 Aug, [facility] [address] [place] [id number] [place] [address] 21300- 4364 Aug, Chronic obstructive pulmonary disease, unspecified COPD type J44.9 [facility] [address] [place] [id number] [place] [address] 67409- 7374 Aug, Anxiety F41.9 [facility] [address] [place] [id number] [place] [address] 01351- 2961 08 Aug, 2016 Chronic pain syndrome G89.4 [facility] [address] [place] [id number] [place] [address] 77887- 8270 Aug, Hiatal hernia K44.9 and Actinic keratosis L57.0 [facility] [address] [place] [id number] [place] [address] 05799- 5908 Aug, [facility] [address], [place] [address]- 4562 Aug, Anxiety F41.9 [facility] [address] [place] [id number] [place] [address] 90446- 9422 July, [facility] [address] [place] [id number] [place] [address] 01843- 6267 July, Hiatal hernia K44.9 [facility] [address] [place] [id number] [place] [address] 55401- 1103 July, [facility] [address] [place] [id number] [place] [address] 61313- 4731 July, Anxiety F41.9 and Chronic pain syndrome G89.4 [facility] [address] [place] [id number] [place] [address] 05536- 0774 July, [facility] [address] [place] [id number] [place] [address] 00096- 9364 Jun, Chronic pain syndrome G89.4 [facility] [address] [place] [id number] [place] [address] 14881- 5641 Jun, Chronic pain syndrome G89.4 [facility] [address] [place] [id number] [place] [address] 91373- 9930 Jun, [facility] [address] [place] [address] 67407- 6952 Jun, Anxiety F41.9 [facility] [address] [place] [id number] [place] [address] 82388- 2412 Jun, Allergic rhinitis, unspecified allergic rhinitis trigger, unspecified rhinitis seasonality J30.9 [facility] [address] [place] [id number] [place] [address] 20155- 3361 Jun, [facility] [address] [place] [id number] [place] [address] 23088- 0903 May, Chronic pain syndrome G89.4 [facility] [address] [place] [id number] [place] [address] 80276- 8913 May, [place] [address] [address]- 1079 May, [address] [place] [address]338 May, Anxiety F41.[address] [place] [address] 29765- 5504 May, Type 2 diabetes mellitus with diabetic [...] Anxiety F41.9 and Chronic pain syndrome G89.4 [place] [id number] [place] [address] 83805- 0161 May, Essential hypertension I10 ; Type 2 diabetes mellitus with diabetic neuropathy, without long-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 ; Mixed hyperlipidemia E78.2 ; Chronic obstructive pulmonary disease, unspecified COPD type J44.9 and Chronic GERD K21.[address] [place] [address] 16582- 3802 May, [address] [address]- 3323 May, [place] [id number] [place] [address] 89935- 1310 May, Type 2 diabetes mellitus with diabetic neuropathy, without long-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 [place] [id number] [place] [address] 82616- 4227 May, Dementia without behavioral disturbance, unspecified dementia type F03.90 [place] [id number] [place] [address] 98302- 3238 May, Type 2 diabetes mellitus with diabetic neuropathy, without long-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 ; Essential hypertension I10 ; Mixed hyperlipidemia E78.2 ; Chronic obstructive pulmonary disease, unspecified COPD type J44.9 ; Chronic GERD K21.9 and Osteoarthritis of both knees, unspecified osteoarthritis type M17.0 [place] [address] [place] [id number] [place] [address] 02646- 4169 May, [place] [address] 02125- 9073 May, [place] [address] [place] [id number] [place] [address] 89561- 5983 May, Anxiety F41.9 and Unspecified symptoms and signs involving cognitive functions and awareness R41.9 [place] [address] [place] [id number] [place] [address] 83051- 5336 May, [place] [address] 43806- 0169 May, Type 2 diabetes mellitus with diabetic neuropathy, without long-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 ; Anxiety F41.9 and Chronic obstructive pulmonary disease, unspecified COPD type J44.9 [place] [address] [place] [id number] [place] [address] 98869- 6912 May, [place] [address] [place] [id number] [place] [address] 67386- 2487 May, [place] [address] [place] [id number] [place] [address] 93818- 7819 May, [place] [address] [place] [id number] [place] [address] 90590- 9281 May, Chronic obstructive pulmonary disease, unspecified COPD type J44.9 [place] [address] [place] [id number] [place] [address] 75439- 7922 Mar, [place] [address] [place] [id number] [place] [address] 54159- 6323 27 Blas, 2017 Arthritis of both knees M19.90 [place] [address] [place] [address] [place] [address] 81930- 1737 16 Mar, 2016 Type 2 diabetes mellitus with diabetic neuropathy, without long-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 [place] [address] [place] [id number] [place] [address] 32614- 2567 Mar, [place] [address] 23757- 4550 Mar, Neck pain M54.2 and Weakness generalized R53.1 [place] [address] 82830- 4544 Mar, [place] [address] 65837- 0206 Mar, Cervicalgia M54.2 and Impacted cerumen of both ears H61.23 [place] [address] 09461- 6205 Mar, [place] [address] [place] [id number] [place] [address] 02596- 4122 Mar, Type 2 diabetes mellitus with diabetic neuropathy, without long-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 [place] [address] [place] [address] [place] [address] 11365- 1510 Feb, [place] [address] [place] [id number] [place] [address] 37061- 1691 Feb, Hypoxia R09.02 [place] [address] [place] [address] [place] [address] 74718- 1241 Feb, [place] [address] [place] [id number] [place] [address] 21464- 3591 Feb, [place] [address] [place] [id number] [place] [address] 92775- 8317 Feb, [place] [address] [place] [id number] [place] [address] 79993- 9158 Feb, Type 2 diabetes mellitus with diabetic neuropathy, without long-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 [facility] [address], [place] [address]- 8394 Feb, Osteoarthritis of both knees, unspecified osteoarthritis type M17.0 [facility] [address], [place] [address]- 8410 Feb, [facility] [address] [place] [address] 40008- 3142 Feb, [facility] [address] [place] [id number] [place] [address] 08723- 1687 Feb, [place] [address] [place] [id number] [place] [address] 41234- 3939 Jan, [facility] [address] [place] [id number] [place] [address] 26337- 7000 Jan, [facility] [address] [place] [id number] [place] [address] 96598- 4527 Jan, [facility] [address] [place] [address] 25209- 3201 Jan, [facility] [address] [place] [address] 39374- 3531 Jan, Tinea pedis of both feet B35.3 [place] [address] [place] [address] 60386- 9778 Jan, Type 2 diabetes mellitus with diabetic [...] seasonality J30.9 and Encounter for immunization Z23 [place] [address] [place] [id number] [address]- 5274 Jan, [facility] [address], [place] [address]- 1665 Jan, [facility] [address], [place] [address]- 0530 Dec, [facility] [address] [place] [address] 13805- 7491 Dec, [facility] [address], [place] [address] -7011 Dec, Unspecified asthma with (acute) exacerbation J45.901 and Chronic obstructive pulmonary disease with (acute) exacerbation J44.1 [facility] [address], [place] [address]- 0765 Dec, Arthritis of both knees M19.90 and Acute medial meniscus tear, right, initial encounter S83.241A [facility] [address], [place] [address]- 2627 Dec, [facility] [address], [place] [address]- 9375 Dec, [facility] [address] [id number] [address]- 7129 Dec, [facility] [address], [place] [address]- 0201 Dec, [facility] [address], [place] [address]- 6674 Dec, History of pneumonia Z87.01 [facility] [address], [place] [address]- 0853 Dec, [facility] [address], [place] [address]- 3887 Dec, [facility] [address], [place] [address]- 2967 Dec, [place] [address], [place] [address]- 1915 Dec, [place] [address], [place] [address]- 0882 Dec, [place] [address] [place] [address] 48932- 8530 Dec, [place] [address] [place] [id number] [place] [address] 57587- 8867 Nov, Cough R05 and Pneumonia due to infectious organism, unspecified laterality, unspecified part of lung J18.9 [place] [address] [place] [id number] [place] [address] 93073- 3466 Nov, [place] [address] [place] [id number] [place] [address] 80549- 9595 Nov, Type 2 diabetes mellitus with diabetic [...] allergic rhinitis trigger, unspecified rhinitis seasonality J30.9 [place] [address], [place] [address]- 7034 Nov, IMMUNIZATIONS No Known Immunizations SOCIAL HISTORY Never Assessed REASON FOR VISIT Refill requests PLAN OF CARE VITAL SIGNS MEDICATIONS Medication Instructions Dosage Frequency Start Date End Date Duration Status Benazepril HCl 20 mg Orally Once a day 1 tablet 24h 30 Active Tramadol HCl 50 mg Orally every 12 hrs must last 28 days 1 tablet as needed Active Lyrica 100 mg Orally Three times a day 1 capsule 8h Active RESULTS No Results PROCEDURES No Known procedures INSTRUCTIONS MEDICATIONS ADMINISTERED No Known Medications MEDICAL (GENERAL) HISTORY Type Description Date Medical History hypertension Medical History chronic obstructive pulmonary disease (COPD)-wears 2L O2 per [place], uses [employer] for home O2 Medical History Arthritis-knees and [...] TIA, Via [facility] 2014 Hospitalization History COPD exacerbation--[facility] 12/27/2015 Hospitalization History [facility] - fall 02/2016 Hospitalization History [facility] pneumonia 11/2016 Hospitalization History COPD exacerbation - Dr Hartley Attending 12/2016 Hospitalization History Cough- [facility] 04/10/2017
--- OUTSIDE RECORDS SUMMARY | 2017-08-12 16:09 | XMS REPORT ---
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 Active 4498163 Problem 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 Active 380185530 Problem Mixed hyperlipidemia E78.2 Active 178698095 Problem Chronic obstructive pulmonary disease, unspecified COPD type J44.9 Active 74912194 Problem Gastroesophageal reflux disease without esophagitis K21.9 Active 779223486 Problem Chronic GERD K21.9 Active 327259051 Problem Type 2 diabetes mellitus with diabetic neuropathy, without long-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 Active 62266234 Problem Allergic rhinitis, unspecified allergic rhinitis trigger, unspecified rhinitis seasonality J30.9 Active 95767411 Problem Chronic pain syndrome G89.4 Active 980267782 Problem Osteoarthritis of both knees, unspecified osteoarthritis type M17.0 Active 973944401 ALLERGIES No Information ENCOUNTERS Encounter Location Date Diagnosis [place] [id number] [place] [address] 82372- 8815 Jun, 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 [place] [id number] [place] [address] 45601- 4434 Jun, [place] [address] [place] [address] 79461- 3600 Jun, Gastroesophageal reflux disease without esophagitis K21.9 [place] [address] [place] [address] 11078- 7681 Jun, Allergic rhinitis, unspecified allergic rhinitis trigger, unspecified rhinitis seasonality J30.9 [facility] [address] [place] [address] [id number] [place] [address] 41623- 6903 Jun, Chronic pain syndrome G89.4 [facility] [address] [id number] [place] [address] 44097- 2782 May, [place] [address] 15693- 7732 May, COPD with acute exacerbation J44.1 [place] [address] 77135- 3227 14 May, 2017 Type 2 diabetes mellitus with diabetic neuropathy, without long-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 ; COPD with acute exacerbation J44.1 ; Hypoxia R09.02 ; Chronic pain syndrome G89.4 ; Yeast dermatitis B37.2 ; 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 and 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 [place] [address] 57359- 6794 May, [place] [address] 28320- 3270 May, Chronic pain syndrome G89.4 [place] [address] [place] [id number] [place] [address] 31953- 2452 May, [place] [address] 07850- 5472 May, [place] [address] [place] [id number] [place] [address] 39513- 0381 May, Mixed hyperlipidemia E78.2 [facility] [address] 01401- 2132 15 May, 2017 Chronic pain syndrome G89.4 [facility] [address] [place] [address] [id number] [place] [address] 33734- 6526 May, Anxiety F41.9 and Chronic pain syndrome G89.4 [facility] [address], [place] [address] 8099 Mar, [facility] [address] [address]- 4736 Mar, [facility] [address] [address]- 8449 Mar, [facility] [address] [id number] [place] [address] 80801- 2437 Mar, [facility] [address] [place] [address] 91231- 8502 Mar, [facility] [address] [place] [id number] [place] [address] 29746- 4700 Mar, Anxiety F41.9 and Chronic pain syndrome G89.4 [place] [address] [address]- 1013 Mar, Medicare annual wellness visit, initial Z00.00 [...] Hiatal hernia K44.9 and Actinic keratosis L57.0 [facility] [address] [address]- 9911 Mar, [facility] [address] [place] [address] [id number] [place] [address] 56694- 6863 Mar, Chronic pain syndrome G89.4 [facility] [address], [place] [address]- 1087 Feb, [facility] [address] [place] [id number] [place] [address] 45954- 0718 Feb, Chronic pain syndrome G89.4 [facility] [address] [id number] [place] [address] 48448- 5777 Feb, [facility] [address] [place] [address] [id number] [place] [address] 59954- 2023 Feb, [facility] [address] 53333- 2941 Feb, Anxiety F41.9 [facility] [address] 43884- 8489 Feb, [facility] [address] 26505- 3082 Feb, Chronic pain syndrome G89.4 [facility] [address] 81681- 6002 Jan, Essential hypertension I10 [facility] [address] [place] [address] [id number] [place] [address] 07946- 6761 Jan, Chronic pain syndrome G89.4 [facility] [address] [place] [address] [id number] [place] [address] 32215- 9689 Jan, [facility] [address] [address] [id number] [place] [address] 22592- 6976 Jan, Anxiety F41.9 [facility] [address] [place] [address] [id number] [place] [address] 37614- 5514 Jan, Encounter for immunization Z23 and Community acquired pneumonia, unspecified laterality J18.9 [facility] [address] [place] [address] [id number] [place] [address] 09157- 8272 Jan, Type 2 diabetes mellitus with diabetic neuropathy, without long-term current use of insulin E11.40 [facility] [address] [id number] [place] [address] 86407- 6507 Dec, Anxiety F41.9 and Chronic pain syndrome G89.4 [facility] [address] [place] [address]- 0147 Dec, Chronic pain syndrome G89.4 and Essential hypertension I10 [facility] [address] [place] [address] [id number] [place] [address] 41625- 1924 16 Dec, 2016 [facility] [address] [place] [address] [id number] [place] [address] 14855- 9636 Dec, Anxiety F41.9 [facility] [address] 44980 2547 Dec, [facility] [address] [place] [address] [id number] [place] [address] 97535- 6820 04 Dec, 2016 Type 2 diabetes mellitus with diabetic neuropathy, without long-term current use of insulin E11.40 ; Lactic acidosis E87.2 ; Chronic obstructive pulmonary disease, unspecified COPD type J44.9 and Encounter for immunization Z23 [facility] [address] [place] [address] [id number] [place] [address] 00355- 2953 Dec, Chronic pain syndrome G89.4 [facility] [address] [place] [address] [id number] [place] [address] 68087 2548 28 Nov, 2016 [facility] [address] [place] [address] [id number] [place] [address] 98437 2549 Nov, Chronic pain syndrome G89.4 [facility] [address] [place] [address] 95916 2546 Nov, [facility] [address] [place] [address] [id number] [place] [address] 92591 2548 Nov, [facility] [address] [place] [address] [id number] [place] [address] 68108 2541 15 Nov, 2016 Anxiety F41.9 [facility] [address] [place] [address] [id number] [place] [address] 38314 2545 11 Nov, 2016 Anxiety F41.9 [facility] [address] [place] [address] 88894 2546 08 Nov, 2016 [facility] [id number] [address]- 8720 Nov, [facility] [id number] [place] [address] 59533- 2843 Nov, [facility] [address] [place] [address] [id number] [place] [address] 80127- 5791 Oct, [facility] [address] [place] [address] [id number] [place] [address] 40281- 7110 Oct, [facility] [address] [place] [address] [id number] [place] [address] 44976- 7246 Oct, [facility] [address] [place] [address] [id number] [place] [address] 20252- 0763 Oct, Essential hypertension I10 and Chronic pain syndrome G89.4 [facility] [address] [place] [address] [id number] [place] [address] 06195- 7790 Oct, Anxiety F41.9 [facility] [address] [place] [address] [id number] [place] [address] 02530- 4054 Oct, [facility] [address] [place] [address] [id number] [place] [address] 09901- 8098 Oct, Chronic pain syndrome G89.4 [facility] [address] [address]264[address] Oct, Sore throat J02.9 and Acute nasopharyngitis (common cold) J00 [facility] [address], [place] [address]- 3788 Sep, [facility] [address] [place] [address] 65003- 3287 Sep, COPD exacerbation J44.1 [facility] [address] [place] [address] [id number] [place] [address] 06715- 6550 Sep, Chronic pain syndrome G89.4 [facility] [address], [place] [address]- 0376 Sep, Essential hypertension I10 [facility] [address] [place] [address] 07658- 2073 Sep, [facility] [address] [place] [address] [id number] [place] [address] 52015- 3942 Sep, [facility] [address] [place] [address] [id number] [place] [address] 45566- 6172 Sep, Anxiety F41.9 [facility] [address] [place] [address] [id number] [place] [address] 89788- 6531 Sep, Chronic pain syndrome G89.4 [facility] [address] [place] [address] [id number] [place] [address] 82290- 0855 Sep, [facility] [address] [place] [address] [id number] [place] [address] 27829- 9991 Aug, Acute seasonal allergic rhinitis, unspecified trigger J30.2 ; Hiatal hernia K44.9 and Chronic pain syndrome G89.4 [facility] [address] [place] [address] [id number] [place] [address] 91514- 8909 Aug, [facility] [address] [place] [address] [id number] [place] [address] 76643- 6529 Aug, [facility] [address] [place] [address] [id number] [place] [address] 80897- 1927 Aug, Chronic obstructive pulmonary disease, unspecified COPD type J44.9 [facility] [address] [place] [address] [id number] [place] [address] 87755- 3143 Aug, Anxiety F41.9 [facility] [address] [place] [address] [id number] [place] [address] 22884- 8351 08 Aug, 2016 Chronic pain syndrome G89.4 [facility] [address] [place] [address] [id number] [place] [address] 16173- 8965 Aug, Hiatal hernia K44.9 and Actinic keratosis L57.0 [facility] [address] [place] [address] [id number] [place] [address] 57889- 0735 Aug, [facility] [address], [place] [address]- 7159 Aug, Anxiety F41.9 [facility] [address] [place] [address] [id number] [place] [address] 94613- 7919 July, [facility] [address] [place] [address] [id number] [place] [address] 02587- 6286 July, Hiatal hernia K44.9 [facility] [address] [place] [address] [id number] [place] [address] 10164- 1565 July, [facility] [address] [place] [address] [id number] [place] [address] 42791- 3334 July, Anxiety F41.9 and Chronic pain syndrome G89.4 [facility] [address] [place] [address] [id number] [place] [address] 82526- 1330 July, [facility] [address] [place] [address] [id number] [place] [address] 03562- 0751 Jun, Chronic pain syndrome G89.4 [facility] [address] [place] [address] [id number] [place] [address] 82738- 6179 Jun, Chronic pain syndrome G89.4 [facility] [address] [place] [address] [id number] [place] [address] 30033- 6552 Jun, [facility] [address] [place] [address] 94742- 9496 Jun, Anxiety F41.9 [facility] [address] [place] [address] [id number] [place] [address] 22696- 7374 Jun, Allergic rhinitis, unspecified allergic rhinitis trigger, unspecified rhinitis seasonality J30.9 [facility] [address] [place] [address] [id number] [place] [address] 24708- 5971 Jun, [facility] [address] [place] [address] [id number] [place] [address] 30331- 5667 May, Chronic pain syndrome G89.4 [facility] [address] [place] [id number] [place] [address] 88663- 3835 May, [place] [address], [place] [address]- 1822 May, [address] [place] [address]- 3937 May, Anxiety F41.9 [address] [place] [address] 79364- 7196 May, Type 2 diabetes mellitus with diabetic [...] Anxiety F41.9 and Chronic pain syndrome G89.4 [place] [id number] [place] [address] 30074- 7041 May, Essential hypertension I10 ; Type 2 diabetes mellitus with diabetic neuropathy, without long-term current use of insulin E11.40 ; Mixed hyperlipidemia E78.2 ; Chronic obstructive pulmonary disease, unspecified COPD type J44.9 and Chronic GERD K21.9 [address] [place] [address] 81843- 4075 May, [address], [place] [address]- 6337 May, [place] [id number] [place] [address] 84126- 6112 May, Type 2 diabetes mellitus with diabetic neuropathy, without long-term current use of insulin E11.40 [place] [id number] [place] [address] 55667- 9830 May, Dementia without behavioral disturbance, unspecified dementia type F03.90 [place] [id number] [place] [address] 40993- 3399 May, Type 2 diabetes mellitus with diabetic neuropathy, without long-term current use of insulin E11.40 ; Essential hypertension I10 ; Mixed hyperlipidemia E78.2 ; Chronic obstructive pulmonary disease, unspecified COPD type J44.9 ; Chronic GERD K21.9 and Osteoarthritis of both knees, unspecified osteoarthritis type M17.0 [place] [address] [place] [id number] [place] [address] 20146- 8303 May, [place] [address] 31996- 4054 May, [place] [address] [place] [id number] [place] [address] 47078- 0370 May, Anxiety F41.9 and Unspecified symptoms and signs involving cognitive functions and awareness R41.9 [place] [address] [place] [id number] [place] [address] 56071- 4762 May, [place] [address] 19873- 1962 May, Type 2 diabetes mellitus with diabetic neuropathy, without long-term current use of insulin E11.40 ; Anxiety F41.9 and Chronic obstructive pulmonary disease, unspecified COPD type J44.9 [place] [address] [place] [id number] [place] [address] 24419- 4215 May, [place] [address] [place] [id number] [place] [address] 03056- 9959 May, [place] [address] [place] [id number] [place] [address] 05785- 5176 May, [place] [address] [place] [id number] [place] [address] 90231- 8678 May, Chronic obstructive pulmonary disease, unspecified COPD type J44.9 [place] [address] [place] [id number] [place] [address] 35442- 4652 Mar, [place] [address] [place] [id number] [place] [address] 76384- 3087 27 Blas, 2017 Arthritis of both knees M19.90 [place] [address] [place] [id number] [place] [address] 41213- 6123 16 Mar, 2016 Type 2 diabetes mellitus with diabetic neuropathy, without long-term current use of insulin E11.40 [place] [address] [place] [id number] [place] [address] 68982- 0471 Mar, [place] [address] 09625- 9793 Mar, Neck pain M54.2 and Weakness generalized R53.1 [place] [address] 10551- 1805 Mar, [place] [address] 41676- 3484 Mar, Cervicalgia M54.2 and Impacted cerumen of both ears H61.23 [place] [address] 86323- 4749 Mar, [place] [address] [place] [id number] [place] [address] 11817- 1192 Mar, Type 2 diabetes mellitus with diabetic neuropathy, without long-term current use of insulin E11.40 [place] [address] [place] [id number] [place] [address] 64755- 3360 Feb, [place] [address] [place] [id number] [place] [address] 19186- 4772 Feb, Hypoxia R09.02 [place] [address] [place] [id number] [place] [address] 74209- 0286 Feb, [place] [address] [place] [id number] [place] [address] 34904- 1546 Feb, [place] [address] [place] [id number] [place] [address] 48979- 6970 Feb, [place] [address] [place] [id number] [place] [address] 22660- 9734 Feb, Type 2 diabetes mellitus with diabetic neuropathy, without long-term current use of insulin E11.40 [facility] [address], [place] [address]- 0662 Feb, Osteoarthritis of both knees, unspecified osteoarthritis type M17.0 [facility] [address], [place] [address]- 6937 Feb, [facility] [address] [place] [address] 11255- 9047 Feb, [facility] [address] [place] [id number] [place] [address] 46669- 2567 Feb, [place] [address] [place] [id number] [place] [address] 56888- 2730 Jan, [facility] [address] [place] [id number] [place] [address] 08821- 6154 Jan, [facility] [address] [place] [id number] [place] [address] 16852- 9763 Jan, [facility] [address] [place] [address] 11869- 9697 Jan, [facility] [address] [place] [address] 93022- 7005 Jan, Tinea pedis of both feet B35.3 [place] [address] [place] [address] 13871- 2574 Jan, Type 2 diabetes mellitus with diabetic [...] seasonality J30.9 and Encounter for immunization Z23 [place] [address] [place] [id number] [address]- 0769 Jan, [facility] [address], [place] [address]- 7639 Jan, [facility] [address], [place] [address]- 9808 Dec, [facility] [address] [place] [address] 70788- 9149 Dec, [facility] [address] [address] -8925 Dec, Unspecified asthma with (acute) exacerbation J45.901 and Chronic obstructive pulmonary disease with (acute) exacerbation J44.1 [facility] [address], [place] [address]- 8192 Dec, Arthritis of both knees M19.90 and Acute medial meniscus tear, right, initial encounter S83.241A [facility] [address], [place] [address]- 2774 Dec, [facility] [address], [place] [address]- 9738 Dec, [facility] [id number] [address]- 2664 Dec, [facility] [address], [place] [address]- 7453 Dec, [facility] [address], [place] [address]- 0494 Dec, History of pneumonia Z87.01 [facility] [address], [place] [address]- 9704 Dec, [facility] [address], [place] [address]- 2783 Dec, [facility] [address], [place] [address]- 1349 Dec, [place] [address], [place] [address]- 0852 Dec, [place] [address], [place] [address]- 6316 Dec, [place] [address] [place] [address] 86096- 9231 Dec, [place] [address] [place] [id number] [place] [address] 28568- 1080 30 Nov, 2015 Cough R05 and Pneumonia due to infectious organism, unspecified laterality, unspecified part of lung J18.9 [place] [address] [place] [address] [id number] [place] [address] 94805- 2724 Nov, [place] [address] [place] [id number] [place] [address] 67934- 7279 Nov, Type 2 diabetes mellitus with diabetic [...] allergic rhinitis trigger, unspecified rhinitis seasonality J30.9 [place] [address], [place] [address]- 6703 12 Nov, 2015 IMMUNIZATIONS No Known Immunizations SOCIAL HISTORY Never Assessed REASON FOR VISIT Controlled Refill Request PLAN OF CARE VITAL SIGNS MEDICATIONS Medication Instructions Dosage Frequency Start Date End Date Duration Status Clonazepam 1 MG Orally 3x a day prn must last 28 Days 1 tablet Active RESULTS No Results PROCEDURES No Known procedures INSTRUCTIONS MEDICATIONS ADMINISTERED No Known Medications MEDICAL (GENERAL) HISTORY Type Description Date Medical History hypertension Medical History chronic obstructive pulmonary disease (COPD)-wears 2L O2 per [place], uses [employer] for home O2 Medical History Arthritis-knees and [...] Attending 12/2016 Hospitalization History Cough- [facility] [place] 04/10/2017
--- OUTSIDE RECORDS SUMMARY | 2017-08-12 16:10 | XMS REPORT ---
Author Author ASIM LINARES [facility] Address [address] [place] [address] Care Team Providers Care Development Lead Name Role Phone ASIM LINARES Unavailable PROBLEMS Type Condition ICD9-CM Code QOM62-UP Code Onset Dates Condition Status SNOMED Code Problem Hypoxia R09.02 Active 203291168 Problem Anxiety F41.9 Active 42372915 Problem Essential hypertension I10 Active 06382741 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 Active 6116722 Problem 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 Active 443734598 Problem Mixed hyperlipidemia E78.2 Active 629181785 Problem Chronic obstructive pulmonary disease, unspecified COPD type J44.9 Active 65657945 Problem Gastroesophageal reflux disease without esophagitis K21.9 Active 657030373 Problem Chronic GERD K21.9 Active 483572324 Problem Type 2 diabetes mellitus with diabetic neuropathy, without long-term current use of insulin E11.40 Active 15813468 Problem Allergic rhinitis, unspecified allergic rhinitis trigger, unspecified rhinitis seasonality J30.9 Active 44777235 Problem Chronic pain syndrome G89.4 Active 328314745 Problem Osteoarthritis of both knees, unspecified osteoarthritis type M17.0 Active 561367837 ALLERGIES No Information ENCOUNTERS Encounter Location Date Diagnosis [facility] [id number] [place] [address] 02189- 3034 Jun, [facility] [id number] [place] [address] 16985- 2805 Jun, 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 [facility] [id number] [place] [address] 99006- 1408 Jun, [facility] [id number], [place] [address] 7063 Jun, Gastroesophageal reflux disease without esophagitis K21.9 [facility] [id number] [place] [address] 88949- 5035 04 Jun, 2017 Allergic rhinitis, unspecified allergic rhinitis trigger, unspecified rhinitis seasonality J30.9 [facility] [id number] [place] [address] 89349- 6597 Jun, Chronic pain syndrome G89.4 [facility] [address] 84285- 5197 May, [facility] [id number] [place] [address] 72050- 2763 May, COPD with acute exacerbation J44.1 [facility] [address] 38986- 5379 14 May, 2017 Type 2 diabetes mellitus with diabetic neuropathy, without long-term current use of insulin E11.40 ; COPD with acute exacerbation J44.1 ; Hypoxia R09.02 ; Chronic pain syndrome G89.4 ; Yeast dermatitis B37.2 ; 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 and 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 [facility] [facility] [address] 11672- 2818 May, [facility] [id number] [place] [address] 96948- 6514 May, Chronic pain syndrome G89.4 [facility] [id number] [place] [address] 40459- 5444 May, [facility] [id number] [place] [address] 10900- 4585 May, [facility] [address] 13753- 6790 May, Mixed hyperlipidemia E78.2 [facility] [id number] [place] [address] 33449- 1540 15 May, 2017 Chronic pain syndrome G89.4 [facility] [address] [place] [address]- 4608 May, Anxiety F41.9 and Chronic pain syndrome G89.4 [facility] [id number] [place] [address] 03479- 3477 Mar, [facility] [id number] [place] [address] 79134- 8123 Mar, [facility] [id number] [place] [address] 65283- 0513 Mar, [facility] [id number] [place] [address] 76712- 7353 Mar, [facility] [id number] [place] [address] 17677- 1620 Mar, [facility] [id number] [place] [address] 53854- 6581 Mar, Anxiety F41.9 and Chronic pain syndrome G89.4 [facility] [id number] [place] [address] 35931- 1725 Mar, Medicare annual wellness visit, initial Z00.00 [...] Hiatal hernia K44.9 and Actinic keratosis L57.0 [facility] [id number] [place] [address] 87268- 8915 Mar, [facility] [id number] [place] [address] 09355- 2413 Mar, Chronic pain syndrome G89.4 [facility] [id number] [place] [address] 96839- 8717 Feb, [facility] [id number] [place] [address] 38300- 6196 Feb, Chronic pain syndrome G89.4 [facility] [id number] [place] [address] 40704- 1365 Feb, [facility] [id number] [place] [address] 08917- 5698 Feb, [facility] [id number] [place] [address] 43537- 9667 Feb, Anxiety F41.9 [facility] [address] 11215- 1073 Feb, [facility] [id number] [place] [address] 42098- 2984 Feb, Chronic pain syndrome G89.4 [facility] [id number] [place] [address] 78596- 4887 Jan, Essential hypertension I10 [facility] [id number] [place] [address] 01708- 5460 Jan, Chronic pain syndrome G89.4 [facility] [id number] [place] [address] 63792- 6179 Jan, [facility] [id number] [place] [address] 91357- 1900 Jan, Anxiety F41.9 [facility] [id number] [place] [address] 41356- 9141 Jan, Encounter for immunization Z23 and Community acquired pneumonia, unspecified laterality J18.9 [facility] [id number] [place] [address] 77443- 4510 Jan, Type 2 diabetes mellitus with diabetic neuropathy, without long-term current use of insulin E11.40 [facility] [id number] [place] [address] 99311- 5466 Dec, Anxiety F41.9 and Chronic pain syndrome G89.4 [facility] [id number] [place] [address] 60105- 7226 23 Dec, 2016 Chronic pain syndrome G89.4 and Essential hypertension I10 [facility] [id number] [place] [address] 09707- 0916 16 Dec, 2016 [facility] [address] 86631- 1189 Dec, Anxiety F41.9 [facility] [id number] [place] [address] 42950- 1016 Dec, [facility] [id number] [place] [address] 84890- 6268 04 Dec, 2016 Type 2 diabetes mellitus with diabetic neuropathy, without long-term current use of insulin E11.40 ; Lactic acidosis E87.2 ; Chronic obstructive pulmonary disease, unspecified COPD type J44.9 and Encounter for immunization Z23 [facility] [id number] [place] [address] 90326- 8336 02 Dec, 2016 Chronic pain syndrome G89.4 [facility] [id number] [place] [address] 92129- 6706 28 Nov, 2016 [facility] [id number] [place] [address] 67331- 2484 Nov, Chronic pain syndrome G89.4 [facility] [id number] [place] [address] 86179 254 Nov, [facility] [id number] [place] [address] 05039 2544 Nov, [facility] [id number] [place] [address] 33841- 1716 15 Nov, 2016 Anxiety F41.9 [facility] [id number] [place] [address] 41842 2545 11 Nov, 2016 Anxiety F41.9 [facility] [id number] [address]- 5808 08 Nov, 2016 [facility] [id number] [place] [address] 24647- 5472 Nov, [facility] [id number] [place] [address] 70868- 7605 Nov, [facility] [id number] [place] [address] 29419- 6870 Oct, [facility] [id number] [place] [address] 95399- 4536 Oct, [facility] [id number] [place] [address] 57927- 6876 Oct, [facility] [id number] [place] [address] 26921- 1917 Oct, Essential hypertension I10 and Chronic pain syndrome G89.4 [facility] [id number] [place] [address] 89820- 9505 Oct, Anxiety F41.9 [facility] [id number] [place] [address] 80506- 8711 Oct, [facility] [id number] [place] [address] 82945- 6598 Oct, Chronic pain syndrome G89.4 [facility] [address] [address] Oct, Sore throat J02.9 and Acute nasopharyngitis (common cold) J00 [facility] [address] [address]- 5087 Sep, [facility] [id number] [place] [address] 31521- 6556 Sep, COPD exacerbation J44.1 [facility] [address], [place] [address]- 6987 Sep, Chronic pain syndrome G89.4 [facility] [id number] [place] [address] 20746- 7020 Sep, Essential hypertension I10 [facility] [id number] [place] [address] 11417- 6394 Sep, [facility] [id number] [place] [address] 20706- 5628 Sep, [facility] [address] 96216- 8490 Sep, Anxiety F41.9 [facility] [id number] [place] [address] 82723- 3922 Sep, Chronic pain syndrome G89.4 [facility] [id number] [place] [address] 97184- 5135 Sep, [facility] [id number] [place] [address] 77883- 0585 Aug, Acute seasonal allergic rhinitis, unspecified trigger J30.2 ; Hiatal hernia K44.9 and Chronic pain syndrome G89.4 [facility] [id number] [place] [address] 85638- 5211 Aug, [facility] [id number] [place] [address] 74769- 9187 Aug, [facility] [id number] [place] [address] 11520- 2167 Aug, Chronic obstructive pulmonary disease, unspecified COPD type J44.9 [facility] [id number] [place] [address] 55485- 3162 14 Aug, 2016 Anxiety F41.9 [facility] [id number] [place] [address] 83932- 4693 08 Aug, 2016 Chronic pain syndrome G89.4 [facility] [id number] [place] [address] 64606- 1664 07 Aug, 2016 Hiatal hernia K44.9 and Actinic keratosis L57.0 [facility] [address], [place] [address]- 8738 Aug, [facility] [id number] [place] [address] 99609- 9740 Aug, Anxiety F41.9 [facility] [address] [address]- 8914 July, [facility] [id number] [place] [address] 74615- 7926 July, Hiatal hernia K44.9 [facility] [id number] [place] [address] 31112- 6037 July, [facility] [id number] [place] [address] 29015- 8386 July, Anxiety F41.9 and Chronic pain syndrome G89.4 [facility] [id number] [place] [address] 04904- 5876 July, [facility] [id number] [place] [address] 85274- 9370 Jun, Chronic pain syndrome G89.4 [facility] [id number] [place] [address] 54405- 1245 Jun, Chronic pain syndrome G89.4 [facility] [address], [place] [address]- 6461 Jun, [facility] [id number] [place] [address] 89355- 2801 Jun, Anxiety F41.9 [facility] [address], [place] [address]- 2107 Jun, Allergic rhinitis, unspecified allergic rhinitis trigger, unspecified rhinitis seasonality J30.9 [facility] [address], [place] [address]- 5509 Jun, [facility] [id number] [place] [address] 20611- 6981 May, Chronic pain syndrome G89.4 [facility] [address], [place] [address]- 6494 May, [facility] [address] [address]- 4815 May, [facility] [address], [place] [address]- 9238 May, Anxiety F41.9 [facility] [id number] [place] [address] 16339- 8592 May, Type 2 diabetes mellitus with diabetic [...] Anxiety F41.9 and Chronic pain syndrome G89.4 [facility] [address], [place] [address]- 0558 May, Essential hypertension I10 ; Type 2 diabetes mellitus with diabetic neuropathy, without long-term current use of insulin E11.40 ; Mixed hyperlipidemia E78.2 ; Chronic obstructive pulmonary disease, unspecified COPD type J44.9 and Chronic GERD K21.9 [facility] [address], [place] [address]- 2336 May, [facility] [facility] [address], [place] [address]- 4495 May, [facility] [address], [place] [address]- 5443 May, Type 2 diabetes mellitus with diabetic neuropathy, without long-term current use of insulin E11.40 [facility] [address], [place] [address]- 9372 May, Dementia without behavioral disturbance, unspecified dementia type F03.90 [facility] [id number] [place] [address] 35895- 0828 May, Type 2 diabetes mellitus with diabetic neuropathy, without long-term current use of insulin E11.40 ; Essential hypertension I10 ; Mixed hyperlipidemia E78.2 ; Chronic obstructive pulmonary disease, unspecified COPD type J44.9 ; Chronic GERD K21.9 and Osteoarthritis of both knees, unspecified osteoarthritis type M17.0 [facility] [id number] [place] [address] 99720- 4173 May, [facility] [id number] [place] [address] 66695- 6661 May, [facility] [id number] [place] [address] 45727- 9814 May, Anxiety F41.9 and Unspecified symptoms and signs involving cognitive functions and awareness R41.9 [facility] [id number] [place] [address] 50226- 1949 May, [facility] [id number] [place] [address] 50839- 4423 May, Type 2 diabetes mellitus with diabetic neuropathy, without long-term current use of insulin E11.40 ; Anxiety F41.9 and Chronic obstructive pulmonary disease, unspecified COPD type J44.9 [facility] [id number] [place] [address] 50222- 5765 May, [facility] [id number] [place] [address] 64208- 4358 May, [facility] [id number] [place] [address] 79297- 5926 May, [place] [id number] [place] [address] 88912- 5615 May, Chronic obstructive pulmonary disease, unspecified COPD type J44.9 [facility] [id number] [place] [address] 51744- 2523 Mar, [facility] [id number] [place] [address] 07658- 6707 Mar, Arthritis of both knees M19.90 [place] [facility] [address] 27057- 1098 16 Mar, 2016 Type 2 diabetes mellitus with diabetic neuropathy, without long-term current use of insulin E11.40 [place] [address] 51408- 9192 Mar, [place] [address] 58814- 9199 Mar, Neck pain M54.2 and Weakness generalized R53.1 [place] [address] 52299- 3701 Mar, [place] [address] 60821- 8824 Mar, Cervicalgia M54.2 and Impacted cerumen of both ears H61.23 [place] [address] 24447- 6491 Mar, [place] [address] 97169- 0459 Mar, Type 2 diabetes mellitus with diabetic neuropathy, without long-term current use of insulin E11.40 [facility] [id number] [place] [address] 03292- 0622 Feb, [place] [address] 23193- 1742 Feb, Hypoxia R09.02 [place] [address] 00178- 6137 Feb, [place] [address] 18648- 9465 Feb, [place] [id number] [place] [address] 40759- 5406 Feb, [facility] [address], [place] [address]- 8448 16 Feb, 2016 Type 2 diabetes mellitus with diabetic neuropathy, without long-term current use of insulin E11.40 [facility] [id number] [place] [address] 65556- 9061 15 Feb, 2016 Osteoarthritis of both knees, unspecified osteoarthritis type M17.0 [facility] [id number] [place] [address] 16101- 3491 14 Feb, 2016 [facility] [id number] [place] [address] 49459- 5207 12 Feb, 2016 [facility] [id number] [place] [address] 40663- 3602 09 Feb, 2016 [facility] [id number] [place] [address] 48615- 9296 Jan, [facility] [id number] [place] [address] 58344- 2683 15 Jan, 2016 [facility] [id number] [place] [address] 35411- 1714 Jan, [facility] [id number] [place] [address] 40593- 0891 14 Jan, 2016 [facility] [id number] [place] [address] 05333- 2582 10 Jan, 2016 Tinea pedis of both feet B35.3 [facility] [address], [place] [address]- 4617 03 Jan, 2016 Type 2 diabetes mellitus [...] seasonality J30.9 and Encounter for immunization Z23 [facility] [id number] [place] [address] 96479- 6530 Jan, [facility] [id number] [place] [address] 80216- 7148 Jan, [facility] [id number] [place] [address] 34950- 3667 Dec, [facility] [id number] [place] [address] 88044- 6016 Dec, [facility] [address] 99555 -4419 Dec, Unspecified asthma with (acute) exacerbation J45.901 and Chronic obstructive pulmonary disease with (acute) exacerbation J44.1 [place] [id number] [place] [address] 04188- 8415 Dec, Arthritis of both knees M19.90 and Acute medial meniscus tear, right, initial encounter S83.241A [facility] [id number] [place] [address] 08286- 2492 Dec, [facility] [id number] [place] [address] 68792- 4768 Dec, [place] [id number] [place] [address] 09831- 4387 Dec, [facility] [id number] [place] [address] 31474- 7125 Dec, [facility] [id number] [place] [address] 84075- 4924 Dec, History of pneumonia Z87.01 [facility] [id number] [place] [address] 98720- 5116 Dec, [facility] [id number] [place] [address] 54122- 8567 Dec, [place] [facility] [address], [place] [address]- 2732 Dec, [facility] [id number] [place] [address] 99152- 0641 Dec, [facility] [id number] [place] [address] 93048- 3886 Dec, [facility] [id number] [place] [address] 56900- 7422 Dec, [place] [id number] [place] [address] 33418- 8249 30 Nov, 2015 Cough R05 and Pneumonia due to infectious organism, unspecified laterality, unspecified part of lung J18.9 [facility] [id number] [place] [address] 94727- 1408 28 Nov, 2015 [place] [id number] [place] [address] 20648- 7531 22 Nov, 2015 Type 2 diabetes mellitus [...] allergic rhinitis trigger, unspecified rhinitis seasonality J30.9 [facility] [id number] [place] [address] 17717- 6114 12 Nov, 2015 IMMUNIZATIONS No Known Immunizations SOCIAL HISTORY Never Assessed REASON FOR VISIT Refill request PLAN OF CARE VITAL SIGNS MEDICATIONS Unknown Medications RESULTS No Results PROCEDURES No Known procedures INSTRUCTIONS MEDICATIONS ADMINISTERED No Known Medications MEDICAL (GENERAL) HISTORY Type Description Date Medical History hypertension Medical History chronic obstructive pulmonary disease (COPD)-wears 2L O2 per [place], uses [employer] for home O2 Medical History Arthritis-knees and [...] TIA, Via [facility] 2014 Hospitalization History COPD exacerbation--[facility] 12/27/2015 Hospital[facility] History [facility] - fall 02/2016 Hospitalization History [facility] pneumonia 11/2016 Hospitalization History COPD exacerbation - Dr Hartley Attending 12/2016 Hospitalization History Cough- [facility] [place] 04/10/2017
--- OUTSIDE RECORDS SUMMARY | 2017-08-12 16:11 | XMS REPORT ---
Author Author ASIM LINARES [facility] Address [address] [place] [address] Care Team Providers Care Rust Proofer Name Role Phone ERIKKathy ASIM Unavailable PROBLEMS Type Condition ICD9-CM Code MHQ98-AP Code Onset Dates Condition Status SNOMED Code Problem Hypoxia R09.02 Active 200927531 Problem Anxiety F41.9 Active 46163488 Problem Essential hypertension I10 Active 79547981 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 Active 1760707 Problem 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 Active 170149312 Problem Mixed hyperlipidemia E78.2 Active 786141155 Problem Chronic obstructive pulmonary disease, unspecified COPD type J44.9 Active 07870557 Problem Gastroesophageal reflux disease without esophagitis K21.9 Active 841327190 Problem Chronic GERD K21.9 Active 729536754 Problem Type 2 diabetes mellitus with diabetic neuropathy, without long-term current use of insulin E11.40 Active 28130805 Problem Allergic rhinitis, unspecified allergic rhinitis trigger, unspecified rhinitis seasonality J30.9 Active 25107813 Problem Chronic pain syndrome G89.4 Active 169532701 Problem Osteoarthritis of both knees, unspecified osteoarthritis type M17.0 Active 836411959 ALLERGIES No Information ENCOUNTERS Encounter Location Date Diagnosis [place] [id number] [place] [address] 95336- 5360 Jun, 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 [place] [id number] [place] [address] 69573- 1872 Jun, [place] [id number] [place] [address] 12450- 5708 Jun, Gastroesophageal reflux disease without esophagitis K21.9 [place] [id number] [place] [address] 61790- 4116 Jun, Allergic rhinitis, unspecified allergic rhinitis trigger, unspecified rhinitis seasonality J30.9 [facility] [address] [place] [id number] [place] [address] 24303- 2011 Jun, Chronic pain syndrome G89.4 [facility] [address] [address] [id number] [place] [address] 99072- 3987 May, [place] [address] 87009- 5334 May, COPD with acute exacerbation J44.1 [place] [address] 10428- 3938 14 May, 2017 Type 2 diabetes mellitus with diabetic neuropathy, without long-term current use of insulin E11.40 ; COPD with acute exacerbation J44.1 ; Hypoxia R09.02 ; Chronic pain syndrome G89.4 ; Yeast dermatitis B37.2 ; 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 and 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 [place] [address] 05740- 2348 May, [place] [address] 81347- 7214 May, Chronic pain syndrome G89.4 [place] [address] [place] [id number] [place] [address] 75104- 4544 May, [place] [address] 78717- 2409 May, [place] [address] [place] [id number] [place] [address] 63797- 7424 May, Mixed hyperlipidemia E78.2 [facility] [address] 90490- 3046 15 May, 2017 Chronic pain syndrome G89.4 [facility] [address] [place] [id number] [place] [address] 44601- 5402 May, Anxiety F41.9 and Chronic pain syndrome G89.4 [facility] [address] [address]- 5003 Mar, [facility] [address], [place] [address]- 7144 Mar, [facility] [address], [place] [address]- 2470 Mar, [facility] [address] [place] [address] [id number] [place] [address] 75844- 1953 Mar, [facility] [id number] [place] [address] 14389- 6929 Mar, [facility] [address] [place] [id number] [place] [address] 53853- 5646 Mar, Anxiety F41.9 and Chronic pain syndrome G89.4 [place] [address], [place] [address]- 8780 Mar, Medicare annual wellness visit, initial Z00.00 [...] keratosis L57.0 [facility] [address], [place] [address]- 5394 Mar, [facility] [address] [address] [id number] [place] [address] 58608- 3128 Mar, Chronic pain syndrome G89.4 [facility] [address], [place] [address]- 6116 Feb, [facility] [address] [address] [id number] [place] [address] 93252- 8351 Feb, Chronic pain syndrome G89.4 [facility] [address] [address] [id number] [place] [address] 61086- 7065 Feb, [facility] [address] [address] [id number] [place] [address] 31487- 7290 Feb, [facility] [address] 73871- 0186 Feb, Anxiety F41.9 [facility] [address] 96512- 5305 Feb, [facility] [address] 60362- 6744 Feb, Chronic pain syndrome G89.4 [facility] [address] 63924- 8291 Jan, Essential hypertension I10 [facility] [address] [place] [id number] [place] [address] 39420- 5358 Jan, Chronic pain syndrome G89.4 [facility] [address] [address] [id number] [place] [address] 41904- 9259 Jan, [facility] [address] [address] [id number] [place] [address] 68100- 5053 Jan, Anxiety F41.9 [facility] [address] [place] [address] [id number] [place] [address] 30786- 4524 Jan, Encounter for immunization Z23 and Community acquired pneumonia, unspecified laterality J18.9 [facility] [address] [place] [address] [id number] [place] [address] 97857- 7423 Jan, Type 2 diabetes mellitus with diabetic neuropathy, without long-term current use of insulin E11.40 [facility] [address] [place] [id number] [place] [address] 58152- 3934 Dec, Anxiety F41.9 and Chronic pain syndrome G89.4 [facility] [address] [place] [address]- 9314 Dec, Chronic pain syndrome G89.4 and Essential hypertension I10 [facility] [address] [place] [id number] [place] [address] 89145- 8661 16 Dec, 2016 [facility] [address] [place] [address] [id number] [place] [address] 33359- 8987 Dec, Anxiety F41.9 [facility] [address] 54647 2548 Dec, [facility] [address] [place] [address] [id number] [place] [address] 21554- 9487 04 Dec, 2016 Type 2 diabetes mellitus with diabetic neuropathy, without long-term current use of insulin E11.40 ; Lactic acidosis E87.2 ; Chronic obstructive pulmonary disease, unspecified COPD type J44.9 and Encounter for immunization Z23 [facility] [address] [place] [id number] [place] [address] 02682- 2222 Dec, Chronic pain syndrome G89.4 [facility] [address] [place] [address] [id number] [place] [address] 77849 2541 28 Nov, 2016 [facility] [address] [address] [id number] [place] [address] 21525 2547 Nov, Chronic pain syndrome G89.4 [facility] [id number] [place] [address] 69646 2546 Nov, [facility] [address] [address] [id number] [place] [address] 67697 2541 Nov, [facility] [address] [place] [address] [id number] [place] [address] 96381 2549 15 Nov, 2016 Anxiety F41.9 [facility] [address] [address] [id number] [place] [address] 70266 254 11 Nov, 2016 Anxiety F41.9 [facility] [id number] [place] [address] 27241 2546 08 Nov, 2016 [facility] [address] [id number] [address]- 0616 Nov, [facility] [id number] [place] [address] 21542- 3481 Nov, [facility] [address] [place] [id number] [place] [address] 62000- 8549 Oct, [facility] [address] [place] [address] [id number] [place] [address] 79691- 5574 Oct, [facility] [address] [place] [id number] [place] [address] 72358- 4403 Oct, [facility] [address] [place] [id number] [place] [address] 84168- 4220 Oct, Essential hypertension I10 and Chronic pain syndrome G89.4 [facility] [address] [place] [id number] [place] [address] 03185- 2460 Oct, Anxiety F41.9 [facility] [address] [place] [id number] [place] [address] 67803- 9957 Oct, [facility] [address] [place] [address] [id number] [place] [address] 17812- 9399 Oct, Chronic pain syndrome G89.4 [facility] [address], [place] [address] -0829 Oct, Sore throat J02.9 and Acute nasopharyngitis (common cold) J00 [facility] [address], [place] [address]- 8531 Sep, [facility] [id number] [place] [address] 54729- 8927 Sep, COPD exacerbation J44.1 [facility] [address] [place] [id number] [place] [address] 57700- 1310 Sep, Chronic pain syndrome G89.4 [facility] [address], [place] [address]- 2492 Sep, Essential hypertension I10 [facility] [id number] [place] [address] 65197- 6978 Sep, [facility] [address] [place] [address] [id number] [place] [address] 99262- 3265 Sep, [facility] [address] [address] [id number] [place] [address] 81887- 6134 Sep, Anxiety F41.9 [facility] [address] [place] [address] [id number] [place] [address] 31370- 6347 Sep, Chronic pain syndrome G89.4 [facility] [address] [place] [address] [id number] [place] [address] 54396- 1158 Sep, [facility] [address] [place] [address] [id number] [place] [address] 96087- 8266 Aug, Acute seasonal allergic rhinitis, unspecified trigger J30.2 ; Hiatal hernia K44.9 and Chronic pain syndrome G89.4 [facility] [address] [place] [address] [id number] [place] [address] 08025- 2947 Aug, [facility] [address] [place] [address] [id number] [place] [address] 33434- 5419 Aug, [facility] [address] [place] [address] [id number] [place] [address] 49800- 8404 Aug, Chronic obstructive pulmonary disease, unspecified COPD type J44.9 [facility] [address] [place] [id number] [place] [address] 83952- 9875 Aug, Anxiety F41.9 [facility] [address] [place] [id number] [place] [address] 65905- 2738 08 Aug, 2016 Chronic pain syndrome G89.4 [facility] [address] [place] [id number] [place] [address] 00558- 5429 Aug, Hiatal hernia K44.9 and Actinic keratosis L57.0 [facility] [address] [place] [id number] [place] [address] 94248- 4309 Aug, [facility] [address], [place] [address]- 0429 Aug, Anxiety F41.9 [facility] [address] [place] [id number] [place] [address] 96362- 3155 July, [facility] [address] [place] [id number] [place] [address] 55579- 7235 July, Hiatal hernia K44.9 [facility] [address] [place] [id number] [place] [address] 61957- 7262 July, [facility] [address] [place] [id number] [place] [address] 32306- 4945 July, Anxiety F41.9 and Chronic pain syndrome G89.4 [facility] [address] [place] [id number] [place] [address] 43149- 1464 July, [facility] [address] [place] [id number] [place] [address] 40966- 8405 Jun, Chronic pain syndrome G89.4 [facility] [address] [place] [id number] [place] [address] 04592- 8837 Jun, Chronic pain syndrome G89.4 [facility] [address] [place] [id number] [place] [address] 69556- 5599 Jun, [facility] [id number] [place] [address] 29517- 7263 Jun, Anxiety F41.9 [facility] [address] [place] [id number] [place] [address] 56050- 3330 Jun, Allergic rhinitis, unspecified allergic rhinitis trigger, unspecified rhinitis seasonality J30.9 [facility] [address] [place] [id number] [place] [address] 20686- 2281 Jun, [facility] [address] [address] [id number] [place] [address] 09192- 3897 May, Chronic pain syndrome G89.4 [facility] [address] [id number] [place] [address] 69254- 0697 May, [place] [address], [place] [address]- 0794 May, [address] [place] [address]- 7819 May, Anxiety F41.9 [address] [place] [address] 70898- 6081 May, Type 2 diabetes mellitus with diabetic [...] and Chronic pain syndrome G89.4 [place] [id number] [place] [address] 95622- 8424 May, Essential hypertension I10 ; Type 2 diabetes mellitus with diabetic neuropathy, without long-term current use of insulin E11.40 ; Mixed hyperlipidemia E78.2 ; Chronic obstructive pulmonary disease, unspecified COPD type J44.9 and Chronic GERD K21.9 [address] [place] [address] 43915- 1888 May, [address], [place] [address]- 4836 May, [place] [id number] [place] [address] 81806- 9553 May, Type 2 diabetes mellitus with diabetic neuropathy, without long-term current use of insulin E11.40 [place] [id number] [place] [address] 70839- 4822 May, Dementia without behavioral disturbance, unspecified dementia type F03.90 [place] [id number] [place] [address] 58595- 8702 May, Type 2 diabetes mellitus with diabetic neuropathy, without long-term current use of insulin E11.40 ; Essential hypertension I10 ; Mixed hyperlipidemia E78.2 ; Chronic obstructive pulmonary disease, unspecified COPD type J44.9 ; Chronic GERD K21.9 and Osteoarthritis of both knees, unspecified osteoarthritis type M17.0 [place] [address] [place] [id number] [place] [address] 63905- 8836 May, [place] [address] 67764- 2714 May, [place] [address] [place] [id number] [place] [address] 59289- 9045 May, Anxiety F41.9 and Unspecified symptoms and signs involving cognitive functions and awareness R41.9 [place] [address] [place] [id number] [place] [address] 23474- 7329 May, [place] [address] 33873- 5111 May, Type 2 diabetes mellitus with diabetic neuropathy, without long-term current use of insulin E11.40 ; Anxiety F41.9 and Chronic obstructive pulmonary disease, unspecified COPD type J44.9 [place] [address] [place] [id number] [place] [address] 16564- 0384 May, [place] [address] [place] [id number] [place] [address] 73463- 1722 May, [place] [address] [place] [id number] [place] [address] 81655- 0925 May, [place] [address] [place] [id number] [place] [address] 94230- 1871 May, Chronic obstructive pulmonary disease, unspecified COPD type J44.9 [place] [address] [place] [id number] [place] [address] 61402- 3733 Mar, [place] [address] [place] [id number] [place] [address] 49785- 8150 27 Blas, 2017 Arthritis of both knees M19.90 [place] [address] [place] [id number] [place] [address] 41353- 7967 16 Mar, 2016 Type 2 diabetes mellitus with diabetic neuropathy, without long-term current use of insulin E11.40 [place] [address] [place] [id number] [place] [address] 92322- 7461 Mar, [place] [address] 33088- 3304 Mar, Neck pain M54.2 and Weakness generalized R53.1 [place] [address] 40170- 9196 Mar, [place] [address] 85695- 1167 Mar, Cervicalgia M54.2 and Impacted cerumen of both ears H61.23 [place] [address] 53241- 0471 Mar, [place] [address] [place] [id number] [place] [address] 56818- 5544 Mar, Type 2 diabetes mellitus with diabetic neuropathy, without long-term current use of insulin E11.40 [place] [address] [place] [id number] [place] [address] 66246- 3752 Feb, [place] [address] [place] [id number] [place] [address] 68072- 2152 Feb, Hypoxia R09.02 [place] [address] [place] [id number] [place] [address] 05573- 9558 Feb, [place] [address] [place] [id number] [place] [address] 57680- 5349 Feb, [place] [address] [place] [id number] [place] [address] 63483- 1426 Feb, [place] [address] [place] [id number] [place] [address] 38392- 7027 Feb, Type 2 diabetes mellitus with diabetic neuropathy, without long-term current use of insulin E11.40 [facility] [address], [place] [address]- 6683 Feb, Osteoarthritis of both knees, unspecified osteoarthritis type M17.0 [facility] [address], [place] [address]- 4742 Feb, [facility] [id number] [place] [address] 93333- 5340 Feb, [facility] [address] [place] [id number] [place] [address] 05347- 5501 Feb, [place] [address] [place] [id number] [place] [address] 01363- 5977 Jan, [facility] [address] [place] [id number] [place] [address] 30239- 9900 Jan, [facility] [address] [place] [id number] [place] [address] 97427- 1606 Jan, [facility] [id number] [place] [address] 72460- 3448 Jan, [facility] [id number] [place] [address] 46659- 6203 Jan, Tinea pedis of both feet B35.3 [place] [id number] [place] [address] 34599- 0092 Jan, Type 2 diabetes mellitus with diabetic [...] seasonality J30.9 and Encounter for immunization Z23 [place] [address] [address] [address]- 1284 Jan, [facility] [address], [place] [address]- 2337 Jan, [facility] [address], [place] [address]- 1653 Dec, [facility] [id number] [place] [address] 17717- 0169 Dec, [facility] [address], [place] [address] -2375 Dec, Unspecified asthma with (acute) exacerbation J45.901 and Chronic obstructive pulmonary disease with (acute) exacerbation J44.1 [facility] [address], [place] [address]- 1318 Dec, Arthritis of both knees M19.90 and Acute medial meniscus tear, right, initial encounter S83.241A [facility] [address], [place] [address]- 7150 Dec, [facility] [address], [place] [address]- 9386 Dec, [facility] [address] [address]- 5439 Dec, [facility] [address], [place] [address]- 5393 Dec, [facility] [address], [place] [address]- 4085 Dec, History of pneumonia Z87.01 [facility] [address], [place] [address]- 6356 Dec, [facility] [address], [place] [address]- 1301 Dec, [facility] [address], [place] [address]- 2008 Dec, [place] [address], [place] [address]- 2231 Dec, [place] [address], [place] [address]- 4492 Dec, [place] [id number] [place] [address] 96028- 9549 Dec, [place] [address] [id number] [place] [address] 58936- 2751 30 Nov, 2015 Cough R05 and Pneumonia due to infectious organism, unspecified laterality, unspecified part of lung J18.9 [place] [id number] [place] [address] 40023- 6158 Nov, [place] [id number] [place] [address] 00240- 1635 22 Nov, 2015 Type 2 diabetes mellitus [...] allergic rhinitis trigger, unspecified rhinitis seasonality J30.9 [place] [address], [place] [address]- 1610 12 Nov, 2015 IMMUNIZATIONS No Known Immunizations SOCIAL HISTORY Never Assessed REASON FOR VISIT FYI PLAN OF CARE VITAL SIGNS MEDICATIONS Unknown Medications RESULTS No Results PROCEDURES No Known procedures INSTRUCTIONS MEDICATIONS ADMINISTERED No Known Medications MEDICAL (GENERAL) HISTORY Type Description Date Medical History hypertension Medical History chronic obstructive pulmonary disease (COPD)-wears 2L O2 per ID, uses [employer] for home O2 Medical History Arthritis-knees and [...] TIA, Via [facility] 2014 Hospitalization History COPD exacerbation--[facility] 12/27/2015 Hospitalization History [facility] - fall 02/2016 Hospitalization History [facility] pneumonia 11/2016 Hospitalization History COPD exacerbation - Dr Hartley Attending 12/2016 Hospitalization History Cough- [facility] [place] 04/10/2017
--- OUTSIDE RECORDS SUMMARY | 2017-08-12 16:12 | XMS REPORT ---
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 Active 4279452 Problem 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 Active 154831786 Problem Mixed hyperlipidemia E78.2 Active 471594449 Problem Chronic obstructive pulmonary disease, unspecified COPD type J44.9 Active 72103087 Problem Gastroesophageal reflux disease without esophagitis K21.9 Active 601742093 Problem Chronic GERD K21.9 Active 033857692 Problem Type 2 diabetes mellitus with diabetic neuropathy, without long-term current use of insulin E11.40 Active 97523400 Problem Allergic rhinitis, unspecified allergic rhinitis trigger, unspecified rhinitis seasonality J30.9 Active 96098806 Problem Chronic pain syndrome G89.4 Active 378952137 Problem Osteoarthritis of both knees, unspecified osteoarthritis type M17.0 Active 395272278 ALLERGIES No Information ENCOUNTERS Encounter Location Date Diagnosis [facility] [id number] [place] [address] 56924- 2035 Jun, [facility] [id number] [place] [address] 69224- 6601 Jun, 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 [facility] [id number] [place] [address] 09103- 6180 Jun, [facility] [id number] [address] 5[address] Jun, Gastroesophageal reflux disease without esophagitis K21.9 [facility] [id number] [place] [address] 64259- 9982 04 Jun, 2017 Allergic rhinitis, unspecified allergic rhinitis trigger, unspecified rhinitis seasonality J30.9 [facility] [id number] [place] [address] 85562- 9798 Jun, Chronic pain syndrome G89.4 [facility] [address] 96848- 2656 May, [facility] [id number] [place] [address] 56961- 9083 May, COPD with acute exacerbation J44.1 [facility] [address] 01150- 3088 14 May, 2017 Type 2 diabetes mellitus with diabetic neuropathy, without long-term current use of insulin E11.40 ; COPD with acute exacerbation J44.1 ; Hypoxia R09.02 ; Chronic pain syndrome G89.4 ; Yeast dermatitis B37.2 ; 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 and 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 [facility] [address] 40233- 0999 May, [facility] [id number] [place] [address] 48379- 4780 May, Chronic pain syndrome G89.4 [facility] [id number] [place] [address] 75290- 2854 May, [facility] [id number] [place] [address] 86158- 8806 May, [facility] [address] 37024- 6709 May, Mixed hyperlipidemia E78.2 [facility] [id number] [place] [address] 02233- 1700 15 May, 2017 Chronic pain syndrome G89.4 [facility] [address] [place] [address]- 9767 May, Anxiety F41.9 and Chronic pain syndrome G89.4 [facility] [id number] [place] [address] 80510- 7882 Mar, [facility] [id number] [place] [address] 25325- 9070 Mar, [facility] [id number] [place] [address] 15898- 0097 Mar, [facility] [id number] [place] [address] 91732- 5125 Mar, [facility] [id number] [place] [address] 53355- 9111 Mar, [facility] [id number] [place] [address] 92828- 6842 Mar, Anxiety F41.9 and Chronic pain syndrome G89.4 [facility] [id number] [place] [address] 83019- 6135 Mar, Medicare annual wellness visit, initial Z00.00 [...] keratosis L57.0 [facility] [id number] [place] [address] 10349- 9103 Mar, [facility] [id number] [place] [address] 39012- 0920 Mar, Chronic pain syndrome G89.4 [facility] [id number] [place] [address] 96617- 0905 Feb, [facility] [id number] [place] [address] 00465- 8130 Feb, Chronic pain syndrome G89.4 [facility] [id number] [place] [address] 17299- 9790 Feb, [facility] [id number] [place] [address] 80766- 0783 Feb, [facility] [id number] [place] [address] 31449- 9740 Feb, Anxiety F41.9 [facility] [address] 67171- 8895 Feb, [facility] [id number] [place] [address] 05558- 8577 Feb, Chronic pain syndrome G89.4 [facility] [id number] [place] [address] 80789- 7980 Jan, Essential hypertension I10 [facility] [id number] [place] [address] 53807- 8687 Jan, Chronic pain syndrome G89.4 [facility] [id number] [place] [address] 15797- 9054 Jan, [facility] [id number] [place] [address] 86595- 8542 Jan, Anxiety F41.9 [facility] [id number] [place] [address] 48805- 3428 Jan, Encounter for immunization Z23 and Community acquired pneumonia, unspecified laterality J18.9 [facility] [id number] [place] [address] 87841- 8740 Jan, Type 2 diabetes mellitus with diabetic neuropathy, without long-term current use of insulin E11.40 [facility] [id number] [place] [address] 29916- 9941 Dec, Anxiety F41.9 and Chronic pain syndrome G89.4 [facility] [id number] [place] [address] 22756- 1066 23 Dec, 2016 Chronic pain syndrome G89.4 and Essential hypertension I10 [facility] [id number] [place] [address] 73809- 3446 16 Dec, 2016 [facility] [address] 40439- 4012 Dec, Anxiety F41.9 [facility] [id number] [place] [address] 87541- 9256 Dec, [facility] [id number] [place] [address] 18186- 5108 04 Dec, 2016 Type 2 diabetes mellitus with diabetic neuropathy, without long-term current use of insulin E11.40 ; Lactic acidosis E87.2 ; Chronic obstructive pulmonary disease, unspecified COPD type J44.9 and Encounter for immunization Z23 [facility] [id number] [place] [address] 96167- 5872 02 Dec, 2016 Chronic pain syndrome G89.4 [facility] [id number] [place] [address] 23500- 4796 28 Nov, 2016 [facility] [id number] [place] [address] 25477- 4358 Nov, Chronic pain syndrome G89.4 [facility] [id number] [place] [address] 25569 2542 Nov, [facility] [id number] [place] [address] 03200 2545 Nov, [facility] [id number] [place] [address] 36999- 4226 15 Nov, 2016 Anxiety F41.9 [facility] [id number] [place] [address] 56084 254 11 Nov, 2016 Anxiety F41.9 [facility] [id number] [address]- 2735 08 Nov, 2016 [facility] [id number] [place] [address] 60069- 6970 Nov, [facility] [id number] [place] [address] 11373- 6482 Nov, [facility] [id number] [place] [address] 46772- 7700 Oct, [facility] [id number] [place] [address] 04374- 3003 Oct, [facility] [id number] [place] [address] 30104- 5258 Oct, [facility] [id number] [place] [address] 55674- 0758 Oct, Essential hypertension I10 and Chronic pain syndrome G89.4 [facility] [id number] [place] [address] 47414- 7168 Oct, Anxiety F41.9 [facility] [id number] [place] [address] 15677- 6591 Oct, [facility] [id number] [place] [address] 14160- 7604 Oct, Chronic pain syndrome G89.4 [facility] [address] [address] Oct, Sore throat J02.9 and Acute nasopharyngitis (common cold) J00 [facility] [address] [address]- 6739 Sep, [facility] [id number] [place] [address] 09883- 6341 Sep, COPD exacerbation J44.1 [facility] [address] [address]- 1154 Sep, Chronic pain syndrome G89.4 [facility] [id number] [place] [address] 34829- 0074 Sep, Essential hypertension I10 [facility] [id number] [place] [address] 34780- 8428 Sep, [facility] [id number] [place] [address] 03862- 1995 Sep, [facility] [address] 30472- 2397 Sep, Anxiety F41.9 [facility] [id number] [place] [address] 15257- 5852 Sep, Chronic pain syndrome G89.4 [facility] [id number] [place] [address] 14718- 5471 Sep, [facility] [id number] [place] [address] 43003- 2684 Aug, Acute seasonal allergic rhinitis, unspecified trigger J30.2 ; Hiatal hernia K44.9 and Chronic pain syndrome G89.4 [facility] [id number] [place] [address] 32527- 0226 Aug, [facility] [id number] [place] [address] 54227- 2529 Aug, [facility] [id number] [place] [address] 24253- 4083 Aug, Chronic obstructive pulmonary disease, unspecified COPD type J44.9 [facility] [id number] [place] [address] 07013- 8436 14 Aug, 2016 Anxiety F41.9 [facility] [id number] [place] [address] 09338- 3385 08 Aug, 2016 Chronic pain syndrome G89.4 [facility] [id number] [place] [address] 99649- 8185 07 Aug, 2016 Hiatal hernia K44.9 and Actinic keratosis L57.0 [facility] [address] [address]- 5825 Aug, [facility] [id number] [place] [address] 48417- 3065 Aug, Anxiety F41.9 [facility] [address] [address]- 4419 July, [facility] [id number] [place] [address] 61605- 2197 July, Hiatal hernia K44.9 [facility] [id number] [place] [address] 15962- 8236 July, [facility] [id number] [place] [address] 82416- 5590 July, Anxiety F41.9 and Chronic pain syndrome G89.4 [facility] [id number] [place] [address] 75748- 3107 July, [facility] [id number] [place] [address] 21631- 3816 Jun, Chronic pain syndrome G89.4 [facility] [id number] [place] [address] 40996- 9705 Jun, Chronic pain syndrome G89.4 [facility] [address] [address]- 5829 Jun, [facility] [id number] [place] [address] 89488- 1153 Jun, Anxiety F41.9 [facility] [address] [address]- 9625 Jun, Allergic rhinitis, unspecified allergic rhinitis trigger, unspecified rhinitis seasonality J30.9 [facility] [address] [address]- 0393 Jun, [facility] [id number] [place] [address] 34046- 3343 May, Chronic pain syndrome G89.4 [facility] [address] [address]- 5529 May, [facility] [address] [address]- 7731 May, [facility] [address] [address]- 2601 May, Anxiety F41.9 [facility] [id number] [place] [address] 14630- 6165 May, Type 2 diabetes mellitus with diabetic [...] Anxiety F41.9 and Chronic pain syndrome G89.4 [facility] [address] [address]- 2818 May, Essential hypertension I10 ; Type 2 diabetes mellitus with diabetic neuropathy, without long-term current use of insulin E11.40 ; Mixed hyperlipidemia E78.2 ; Chronic obstructive pulmonary disease, unspecified COPD type J44.9 and Chronic GERD K21.9 [facility] [address] [address]- 5621 May, [facility] [address] [address]- 2548 May, [facility] [address] [address]- 8926 May, Type 2 diabetes mellitus with diabetic neuropathy, without long-term current use of insulin E11.40 [facility] [address] [address]- 9277 May, Dementia without behavioral disturbance, unspecified dementia type F03.90 [facility] [id number] [place] [address] 55328- 3663 May, Type 2 diabetes mellitus with diabetic neuropathy, without long-term current use of insulin E11.40 ; Essential hypertension I10 ; Mixed hyperlipidemia E78.2 ; Chronic obstructive pulmonary disease, unspecified COPD type J44.9 ; Chronic GERD K21.9 and Osteoarthritis of both knees, unspecified osteoarthritis type M17.0 [facility] [id number] [place] [address] 88471- 2722 May, [facility] [id number] [place] [address] 36125- 2310 May, [facility] [id number] [place] [address] 69512- 4938 May, Anxiety F41.9 and Unspecified symptoms and signs involving cognitive functions and awareness R41.9 [facility] [id number] [place] [address] 89523- 3895 May, [facility] [id number] [place] [address] 10869- 9473 May, Type 2 diabetes mellitus with diabetic neuropathy, without long-term current use of insulin E11.40 ; Anxiety F41.9 and Chronic obstructive pulmonary disease, unspecified COPD type J44.9 [facility] [id number] [place] [address] 24071- 9693 May, [facility] [id number] [place] [address] 02893- 0248 May, [facility] [id number] [place] [address] 72079- 9056 May, [facility] [id number] [place] [address] 76776- 2109 May, Chronic obstructive pulmonary disease, unspecified COPD type J44.9 [facility] [id number] [place] [address] 03177- 8661 Mar, [facility] [id number] [place] [address] 77968- 1576 Mar, Arthritis of both knees M19.90 [facility] [address] 86198- 8051 16 Mar, 2016 Type 2 diabetes mellitus with diabetic neuropathy, without long-term current use of insulin E11.40 [facility] [address] 03931- 3779 Mar, [facility] [address] 54833- 5825 Mar, Neck pain M54.2 and Weakness generalized R53.1 [facility] [address] 89559- 6681 Mar, [facility] [address] 62517- 2683 Mar, Cervicalgia M54.2 and Impacted cerumen of both ears H61.23 [facility] [address] 60102- 2132 Mar, [facility] [address] 84609- 2448 Mar, Type 2 diabetes mellitus with diabetic neuropathy, without long-term current use of insulin E11.40 [facility] [id number] [place] [address] 78074- 8837 Feb, [facility] [address] 63737- 1705 Feb, Hypoxia R09.02 [facility] [address] 83100- 8187 Feb, [facility] [address] 34064- 3605 Feb, [facility] [id number] [place] [address] 48801- 1755 Feb, [facility] [address] [address]- 9969 16 Feb, 2016 Type 2 diabetes mellitus with diabetic neuropathy, without long-term current use of insulin E11.40 [facility] [address] [place] [address] 46306- 1503 15 Feb, 2016 Osteoarthritis of both knees, unspecified osteoarthritis type M17.0 [facility] [id number] [place] [address] 82854- 6032 14 Feb, 2016 [facility] [id number] [place] [address] 77901- 2270 12 Feb, 2016 [facility] [id number] [place] [address] 47390- 3733 09 Feb, 2016 [facility] [id number] [place] [address] 45422- 3910 Jan, [facility] [id number] [place] [address] 31639- 8800 15 Jan, 2016 [facility] [id number] [place] [address] 19974- 3259 Jan, [facility] [id number] [place] [address] 43725- 2935 14 Jan, 2016 [facility] [address] [place] [address] 72843- 7504 10 Jan, 2016 Tinea pedis of both feet B35.3 [facility] [address] [address]- 0164 03 Jan, 2016 Type 2 diabetes mellitus [...] seasonality J30.9 and Encounter for immunization Z23 [facility] [id number] [place] [address] 43218- 8149 Jan, [facility] [id number] [place] [address] 50484- 0766 Jan, [facility] [id number] [place] [address] 80911- 8006 Dec, [facility] [id number] [place] [address] 06528- 8119 Dec, [facility] [address] 21791 -2624 Dec, Unspecified asthma with (acute) exacerbation J45.901 and Chronic obstructive pulmonary disease with (acute) exacerbation J44.1 [facility] [id number] [place] [address] 48357- 8886 Dec, Arthritis of both knees M19.90 and Acute medial meniscus tear, right, initial encounter S83.241A [facility] [id number] [place] [address] 18839- 1159 Dec, [facility] [id number] [place] [address] 12498- 8934 Dec, [facility] [id number] [place] [address] 90608- 8003 Dec, [facility] [id number] [place] [address] 45548- 3555 Dec, [facility] [id number] [place] [address] 45961- 9949 Dec, History of pneumonia Z87.01 [facility] [id number] [place] [address] 69657- 7324 Dec, [facility] [id number] [place] [address] 67603- 1328 Dec, [facility] [address] [address]- 8959 Dec, [facility] [id number] [place] [address] 51997- 7798 Dec, [facility] [id number] [place] [address] 25901- 4681 Dec, [facility] [id number] [place] [address] 75607- 4328 Dec, [facility] [id number] [place] [address] 34955- 9930 Nov, Cough R05 and Pneumonia due to infectious organism, unspecified laterality, unspecified part of lung J18.9 [facility] [id number] [place] [address] 75582- 2629 Nov, [facility] [id number] [place] [address] 68712- 2791 Nov, Type 2 diabetes mellitus with diabetic [...] allergic rhinitis trigger, unspecified rhinitis seasonality J30.9 [address] [place] [address] 38429- 9068 12 Nov, 2015 IMMUNIZATIONS No Known Immunizations SOCIAL HISTORY Never Assessed REASON FOR VISIT update med list PLAN OF CARE VITAL SIGNS MEDICATIONS Medication Instructions Dosage Frequency Start Date End Date Duration Status Cetirizine HCl 10 MG Orally Once a day 1 tablet 24h Active Pantoprazole Sodium 40 TAKE ONE TABLET BY MOUTH DAILY 30 Active Triamcinolone Acetonide 0.1 % Externally Twice a day to as needed 1 application to affected area Jan, Active Doxazosin Mesylate 4 MG Orally Once a day 1 tablet 24h Active Oxygen 3 L by inhalation route as directed as directed Feb, Active Amlodipine Besylate 10 mg Orally Once a day 1 tablet 24h Active Myrbetriq 25 MG Orally Once a day 1 tablet 24h Active Atorvastatin Calcium 40 mg Orally Once a day 1 tablet 24h Active Knee Brace/Hinged L/XL - as directed May, Active GlipiZIDE 5 mg Orally Once a day 1 tablet 24h 30 Active Tylenol PM Extra Strength 500-25 MG Orally Once a day 1 tablet at bedtime as needed 24h Active MiraLax - Orally once daily as needed 1 packet mixed with 8 ounces of fluid July, 30 day(s) Active Levocetirizine Dihydrochloride 5 mg Orally Once a day 1 tablet in the evening 24h 30 days Active Exelon 4.6 MG/24HR APPLY ONE PATCH TO HAIR-FREE AREA ABOVE THE WAIST AND CHANGE EVERY 24 HOURS Active Coricidin HBP Day/Night Cold 10-20 &15-200-2 MG Active Symbicort 80-4.5 MCG/ACT Inhalation Twice a day 2 puffs 12h Active Lyrica 100 mg Orally Three times a day 1 capsule 8h Active Tramadol HCl 50 mg Orally every 12 hrs must last 28 days 1 tablet as needed Active Montelukast Sodium 10 mg Orally Once a day 1 tablet in the evening 24h 30 days Active Ranitidine HCl 150 MG 1 tablet at bedtime Jun, 30 day(s) Active Albuterol Sulfate (2.5 MG/3ML) 0.083% Inhalation every 4 hours as needed 3 ml Active Viibryd 10 mg Orally Once a day 1 tablet with food 24h Active Fluticasone Propionate 50 MCG/ACT Nasally Once a day 1 spray in each nostril 24h Aug, 30 day(s) Active Spiriva HandiHaler 18 MCG Inhalation Once a day 1 capsule 24h Active Benazepril HCl 20 mg Orally Once a day 1 tablet 24h 30 Active Clonazepam 1 MG Orally 3x a day prn must last 28 Days 1 tablet Active RESULTS No Results PROCEDURES No Known procedures INSTRUCTIONS MEDICATIONS ADMINISTERED No Known Medications MEDICAL (GENERAL) HISTORY Type Description Date Medical History hypertension Medical History chronic obstructive pulmonary disease (COPD)-wears 2L O2 per [place], uses [employer] for home O2 Medical History Arthritis-knees and [...] Attending 12/2016 Hospitalization History Cough- [facility] [place] 04/10/2017
--- OUTSIDE RECORDS SUMMARY | 2017-08-12 16:13 | XMS REPORT ---
Author Author ASIM LINARES [facility] Address [address] [place] [address] Care Team Providers Care Palliative Care Nurse Practitioner Name Role Phone ERIKKathy ASIM Unavailable PROBLEMS Type Condition ICD9-CM Code HWO10-SQ Code Onset Dates Condition Status SNOMED Code Problem Hypoxia R09.02 Active 192382163 Problem Anxiety F41.9 Active 39789166 Problem Essential hypertension I10 Active 09694290 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 Active 9254204 Problem 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 Active 958259201 Problem Mixed hyperlipidemia E78.2 Active 170659357 Problem Chronic obstructive pulmonary disease, unspecified COPD type J44.9 Active 23969894 Problem Gastroesophageal reflux disease without esophagitis K21.9 Active 723807600 Problem Chronic GERD K21.9 Active 324976645 Problem Type 2 diabetes mellitus with diabetic neuropathy, without long-term current use of insulin E11.40 Active 33009864 Problem Allergic rhinitis, unspecified allergic rhinitis trigger, unspecified rhinitis seasonality J30.9 Active 86380066 Problem Chronic pain syndrome G89.4 Active 004162554 Problem Osteoarthritis of both knees, unspecified osteoarthritis type M17.0 Active 288221664 ALLERGIES No Information ENCOUNTERS Encounter Location Date Diagnosis [place] [id number] [place] [address] 53018- 3841 Jun, 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 [place] [id number] [place] [address] 66495- 5989 Jun, [place] [id number] [place] [address] 72165- 7762 Jun, Gastroesophageal reflux disease without esophagitis K21.9 [place] [id number] [place] [address] 02162- 1765 Jun, Allergic rhinitis, unspecified allergic rhinitis trigger, unspecified rhinitis seasonality J30.9 [facility] [address] [place] [id number] [place] [address] 54332- 1595 Jun, Chronic pain syndrome G89.4 [facility] [id number] [place] [address] 97946- 6566 May, [place] [address] 71105- 4361 May, COPD with acute exacerbation J44.1 [place] [address] 21469- 9205 14 May, 2017 Type 2 diabetes mellitus with diabetic neuropathy, without long-term current use of insulin E11.40 ; COPD with acute exacerbation J44.1 ; Hypoxia R09.02 ; Chronic pain syndrome G89.4 ; Yeast dermatitis B37.2 ; 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 and 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 [place] [address] 48382- 2458 May, [place] [address] 38993- 4710 May, Chronic pain syndrome G89.4 [place] [address] [place] [id number] [place] [address] 06719- 3824 May, [place] [address] 51540- 6828 May, [place] [address] [place] [id number] [place] [address] 70217- 7139 May, Mixed hyperlipidemia E78.2 [facility] [address] 34050- 9361 15 May, 2017 Chronic pain syndrome G89.4 [facility] [address] [place] [id number] [place] [address] 80635- 4445 May, Anxiety F41.9 and Chronic pain syndrome G89.4 [facility] [address] [address]- 3238 Mar, [facility] [address] [place] [address]- 2489 Mar, [facility] [address], [place] [address]- 3585 Mar, [facility] [address] [id number] [place] [address] 31057- 8391 Mar, [facility] [id number] [place] [address] 71630- 7137 Mar, [facility] [address] [place] [id number] [place] [address] 77948- 5625 Mar, Anxiety F41.9 and Chronic pain syndrome G89.4 [place] [address], [place] [address]- 3447 Mar, Medicare annual wellness visit, initial Z00.00 [...] Hiatal hernia K44.9 and Actinic keratosis L57.0 [facility] [address], [place] [address]- 6908 Mar, [facility] [address] [id number] [place] [address] 32084- 7575 Mar, Chronic pain syndrome G89.4 [facility] [address], [place] [address]- 6730 Feb, [facility] [address] [id number] [place] [address] 99585- 3313 Feb, Chronic pain syndrome G89.4 [facility] [address] [id number] [place] [address] 22298- 2124 Feb, [facility] [address] [id number] [place] [address] 65286- 9614 Feb, [facility] [address] 24203- 9316 Feb, Anxiety F41.9 [facility] [address] 91738- 6823 Feb, [facility] [address] 26278- 9201 Feb, Chronic pain syndrome G89.4 [facility] [address] 18787- 3008 Jan, Essential hypertension I10 [facility] [address] [place] [id number] [place] [address] 84807- 1459 Jan, Chronic pain syndrome G89.4 [facility] [address] [address] [id number] [place] [address] 87283- 4643 Jan, [facility] [address] [id number] [place] [address] 96015- 9349 Jan, Anxiety F41.9 [facility] [address] [address] [id number] [place] [address] 37509- 9161 Jan, Encounter for immunization Z23 and Community acquired pneumonia, unspecified laterality J18.9 [facility] [address] [place] [address] [id number] [place] [address] 75354- 5617 Jan, Type 2 diabetes mellitus with diabetic neuropathy, without long-term current use of insulin E11.40 [facility] [address] [id number] [place] [address] 94363- 1520 Dec, Anxiety F41.9 and Chronic pain syndrome G89.4 [facility] [address] [place] [address]- 7703 Dec, Chronic pain syndrome G89.4 and Essential hypertension I10 [facility] [address] [place] [id number] [place] [address] 06803- 5735 16 Dec, 2016 [facility] [address] [id number] [place] [address] 70976- 4822 Dec, Anxiety F41.9 [facility] [address] 76012 2547 Dec, [facility] [address] [place] [id number] [place] [address] 70207- 5960 04 Dec, 2016 Type 2 diabetes mellitus with diabetic neuropathy, without long-term current use of insulin E11.40 ; Lactic acidosis E87.2 ; Chronic obstructive pulmonary disease, unspecified COPD type J44.9 and Encounter for immunization Z23 [facility] [address] [place] [id number] [place] [address] 93633- 5046 Dec, Chronic pain syndrome G89.4 [facility] [address] [place] [id number] [place] [address] 70815 2544 28 Nov, 2016 [facility] [address] [place] [id number] [place] [address] 58937 2545 Nov, Chronic pain syndrome G89.4 [facility] [id number] [place] [address] 92087 2546 Nov, [facility] [address] [address] [id number] [place] [address] 82014 2541 Nov, [facility] [address] [address] [id number] [place] [address] 55593 2541 15 Nov, 2016 Anxiety F41.9 [facility] [address] [id number] [place] [address] 57843 2548 11 Nov, 2016 Anxiety F41.9 [facility] [id number] [place] [address] 09973 2546 08 Nov, 2016 [facility] [address] [id number] [address]- 7719 Nov, [facility] [id number] [place] [address] 99257- 0953 Nov, [facility] [address] [place] [address] [id number] [place] [address] 00996- 6841 Oct, [facility] [address] [place] [id number] [place] [address] 64250- 9134 Oct, [facility] [address] [place] [id number] [place] [address] 19785- 0278 Oct, [facility] [address] [place] [id number] [place] [address] 29970- 1291 Oct, Essential hypertension I10 and Chronic pain syndrome G89.4 [facility] [address] [place] [id number] [place] [address] 39602- 2625 Oct, Anxiety F41.9 [facility] [address] [place] [id number] [place] [address] 76209- 3520 Oct, [facility] [address] [place] [id number] [place] [address] 05916- 9378 Oct, Chronic pain syndrome G89.4 [facility] [address], [place] [address]3905 Oct, Sore throat J02.9 and Acute nasopharyngitis (common cold) J00 [facility] [address], [place] [address]- 0545 Sep, [facility] [id number] [place] [address] 99600- 3355 Sep, COPD exacerbation J44.1 [facility] [address] [place] [id number] [place] [address] 81569- 5439 Sep, Chronic pain syndrome G89.4 [facility] [address], [place] [address]- 8522 Sep, Essential hypertension I10 [facility] [id number] [place] [address] 02603- 2178 Sep, [facility] [address] [place] [id number] [place] [address] 45775- 2353 Sep, [facility] [address] [place] [id number] [place] [address] 79250- 1327 Sep, Anxiety F41.9 [facility] [address] [place] [id number] [place] [address] 52113- 0868 Sep, Chronic pain syndrome G89.4 [facility] [address] [place] [id number] [place] [address] 97078- 8100 Sep, [facility] [address] [place] [id number] [place] [address] 82184- 6903 Aug, Acute seasonal allergic rhinitis, unspecified trigger J30.2 ; Hiatal hernia K44.9 and Chronic pain syndrome G89.4 [facility] [address] [place] [id number] [place] [address] 06124- 3398 Aug, [facility] [address] [id number] [place] [address] 29956- 9851 Aug, [facility] [id number] [place] [address] 66660- 5011 Aug, Chronic obstructive pulmonary disease, unspecified COPD type J44.9 [facility] [address] [id number] [place] [address] 40865- 7575 Aug, Anxiety F41.9 [facility] [address] [place] [id number] [place] [address] 04103- 3653 08 Aug, 2016 Chronic pain syndrome G89.4 [facility] [address] [id number] [place] [address] 39985- 0288 Aug, Hiatal hernia K44.9 and Actinic keratosis L57.0 [facility] [address] [place] [id number] [place] [address] 39700- 6809 Aug, [facility] [address], [place] [address]- 5957 Aug, Anxiety F41.9 [facility] [address] [place] [id number] [place] [address] 68406- 7276 July, [facility] [address] [id number] [place] [address] 62947- 2385 July, Hiatal hernia K44.9 [facility] [address] [id number] [place] [address] 25923- 0719 July, [facility] [address] [id number] [place] [address] 07401- 7655 July, Anxiety F41.9 and Chronic pain syndrome G89.4 [facility] [address] [id number] [place] [address] 28798- 6107 July, [facility] [address] [id number] [place] [address] 39923- 2134 Jun, Chronic pain syndrome G89.4 [facility] [address] [place] [id number] [place] [address] 84171- 2167 Jun, Chronic pain syndrome G89.4 [facility] [address] [id number] [place] [address] 47574- 2805 Jun, [facility] [id number] [place] [address] 29887- 9153 Jun, Anxiety F41.9 [facility] [address] [place] [id number] [place] [address] 22062- 9608 Jun, Allergic rhinitis, unspecified allergic rhinitis trigger, unspecified rhinitis seasonality J30.9 [facility] [address] [place] [id number] [place] [address] 75107- 3103 Jun, [facility] [id number] [place] [address] 40008- 6157 May, Chronic pain syndrome G89.4 [facility] [address] [id number] [place] [address] 90410- 6738 May, [place] [address], [place] [address]- 5620 May, [id number] [place] [address] 8965 May, Anxiety F41.9 [id number] [place] [address] 26088- 0556 May, Type 2 diabetes mellitus with diabetic [...] Anxiety F41.9 and Chronic pain syndrome G89.4 [place] [id number] [place] [address] 71105- 2988 May, Essential hypertension I10 ; Type 2 diabetes mellitus with diabetic neuropathy, without long-term current use of insulin E11.40 ; Mixed hyperlipidemia E78.2 ; Chronic obstructive pulmonary disease, unspecified COPD type J44.9 and Chronic GERD K21.9 [id number] [place] [address] 74759- 0870 May, [address], [place] [address]- 4647 May, [place] [id number] [place] [address] 79939- 2779 May, Type 2 diabetes mellitus with diabetic neuropathy, without long-term current use of insulin E11.40 [place] [id number] [place] [address] 96644- 3196 May, Dementia without behavioral disturbance, unspecified dementia type F03.90 [place] [id number] [place] [address] 45408- 8185 May, Type 2 diabetes mellitus with diabetic neuropathy, without long-term current use of insulin E11.40 ; Essential hypertension I10 ; Mixed hyperlipidemia E78.2 ; Chronic obstructive pulmonary disease, unspecified COPD type J44.9 ; Chronic GERD K21.9 and Osteoarthritis of both knees, unspecified osteoarthritis type M17.0 [place] [address] [place] [id number] [place] [address] 05384- 7555 May, [place] [address] 12177- 5063 May, [place] [address] [place] [id number] [place] [address] 62562- 8918 May, Anxiety F41.9 and Unspecified symptoms and signs involving cognitive functions and awareness R41.9 [place] [address] [place] [id number] [place] [address] 89032- 9087 May, [place] [address] 87674- 5041 May, Type 2 diabetes mellitus with diabetic neuropathy, without long-term current use of insulin E11.40 ; Anxiety F41.9 and Chronic obstructive pulmonary disease, unspecified COPD type J44.9 [place] [address] [place] [id number] [place] [address] 66463- 0213 May, [place] [address] [place] [id number] [place] [address] 81812- 0465 May, [place] [address] [place] [id number] [place] [address] 04676- 2503 May, [place] [address] [place] [id number] [place] [address] 70863- 5703 May, Chronic obstructive pulmonary disease, unspecified COPD type J44.9 [place] [address] [place] [id number] [place] [address] 61106- 4212 Mar, [place] [address] [place] [id number] [place] [address] 85446- 7591 27 Blas, 2017 Arthritis of both knees M19.90 [place] [address] [place] [id number] [place] [address] 78064- 7449 16 Mar, 2016 Type 2 diabetes mellitus with diabetic neuropathy, without long-term current use of insulin E11.40 [place] [address] [place] [id number] [place] [address] 45785- 0136 Mar, [place] [address] 89889- 4203 Mar, Neck pain M54.2 and Weakness generalized R53.1 [place] [address] 50421- 6320 Mar, [place] [address] 14065- 7330 Mar, Cervicalgia M54.2 and Impacted cerumen of both ears H61.23 [place] [address] 11710- 4283 Mar, [place] [address] [place] [id number] [place] [address] 02085- 9485 Mar, Type 2 diabetes mellitus with diabetic neuropathy, without long-term current use of insulin E11.40 [place] [address] [place] [id number] [place] [address] 11331- 7326 Feb, [place] [address] [place] [id number] [place] [address] 44767- 2443 Feb, Hypoxia R09.02 [place] [address] [place] [id number] [place] [address] 17804- 4864 Feb, [place] [address] [place] [id number] [place] [address] 74525- 7727 Feb, [place] [address] [place] [id number] [place] [address] 61953- 5648 Feb, [place] [address] [id number] [place] [address] 14131- 9640 Feb, Type 2 diabetes mellitus with diabetic neuropathy, without long-term current use of insulin E11.40 [facility] [address], [place] [address]- 9750 Feb, Osteoarthritis of both knees, unspecified osteoarthritis type M17.0 [facility] [address], [place] [address]- 4364 Feb, [facility] [id number] [place] [address] 88276- 5301 Feb, [facility] [address] [place] [id number] [place] [address] 52355- 0954 Feb, [place] [address] [place] [id number] [place] [address] 17012- 2583 Jan, [facility] [address] [id number] [place] [address] 41613- 0304 Jan, [facility] [address] [place] [id number] [place] [address] 18729- 0021 Jan, [facility] [id number] [place] [address] 61402- 9561 Jan, [facility] [id number] [place] [address] 83439- 0197 Jan, Tinea pedis of both feet B35.3 [place] [id number] [place] [address] 28367- 5678 Jan, Type 2 diabetes mellitus with diabetic [...] seasonality J30.9 and Encounter for immunization Z23 [place] [address] [id number] [address]- 3696 Jan, [facility] [address], [place] [address]- 3443 Jan, [facility] [address], [place] [address]- 4569 Dec, [facility] [id number] [place] [address] 49879- 0307 Dec, [facility] [address], [place] [address] -4637 Dec, Unspecified asthma with (acute) exacerbation J45.901 and Chronic obstructive pulmonary disease with (acute) exacerbation J44.1 [facility] [address], [place] [address]- 5533 Dec, Arthritis of both knees M19.90 and Acute medial meniscus tear, right, initial encounter S83.241A [facility] [address], [place] [address]- 9084 Dec, [facility] [address], [place] [address]- 4297 Dec, [facility] [id number] [place] [address]- 9926 Dec, [facility] [address], [place] [address]- 0889 Dec, [facility] [address], [place] [address]- 3237 Dec, History of pneumonia Z87.01 [facility] [address], [place] [address]- 9554 Dec, [facility] [address], [place] [address]- 6394 Dec, [facility] [address], [place] [address]- 3359 Dec, [place] [address], [place] [address]- 6037 Dec, [place] [address], [place] [address]- 2193 Dec, [place] [id number] [place] [address] 74799- 1764 Dec, [place] [address] [place] [id number] [place] [address] 95555- 0323 30 Nov, 2015 Cough R05 and Pneumonia due to infectious organism, unspecified laterality, unspecified part of lung J18.9 [place] [id number] [place] [address] 76150- 1946 Nov, [place] [id number] [place] [address] 95866- 6057 22 Nov, 2015 Type 2 diabetes mellitus [...] allergic rhinitis trigger, unspecified rhinitis seasonality J30.9 [place] [id number] [place] [address] 41392- 3963 12 Nov, 2015 IMMUNIZATIONS No Known Immunizations SOCIAL HISTORY Never Assessed REASON FOR VISIT Refill request PLAN OF CARE VITAL SIGNS MEDICATIONS Medication Instructions Dosage Frequency Start Date End Date Duration Status Ranitidine HCl 150 mg 1 tablet at bedtime 90 Active RESULTS No Results PROCEDURES No Known procedures INSTRUCTIONS MEDICATIONS ADMINISTERED No Known Medications MEDICAL (GENERAL) HISTORY Type Description Date Medical History hypertension Medical History chronic obstructive pulmonary disease (COPD)-wears 2L O2 per [place], uses [place] for home O2 Medical History Arthritis-knees and back Medical History type II diabetes-2008 Medical History depression-Dr. Imelda phillip in 2014 Medical History anxiety- Dr. 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, tumor under the eye started 2005 Medical History Actinic keratosis Medical History Hiatal hernia Surgical History hernia repair x4-umbilical and right/left lower abdomen 2001 Surgical History hiatal hernia repair 2007 Surgical History cataracts 2009 Surgical History wrist fracture 2003 Surgical History TURP 2003 Surgical History EGD Colonoscopy [facility] 06/06/2016 Hospitalization History TIA, [facility] 2014 Hospitalization History COPD exacerbation--[facility] 12/27/2015 [facility]ization History [facility] - fall 02/2016 Hospitalization History [facility] pneumonia 11/2016 Hospitalization History COPD exacerbation - Dr Hartley Attending 12/2016 Hospitalization History Cough- [facility] [place] 04/10/2017
--- OUTSIDE RECORDS SUMMARY | 2017-08-12 16:14 | XMS REPORT ---
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 Active 9982179 Problem 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 Active 948468041 Problem Mixed hyperlipidemia E78.2 Active 288333793 Problem Chronic obstructive pulmonary disease, unspecified COPD type J44.9 Active 03261628 Problem Gastroesophageal reflux disease without esophagitis K21.9 Active 447315388 Problem Chronic GERD K21.9 Active 076984831 Problem Type 2 diabetes mellitus with diabetic neuropathy, without long-term current use of insulin E11.40 Active 19175457 Problem Allergic rhinitis, unspecified allergic rhinitis trigger, unspecified rhinitis seasonality J30.9 Active 36158506 Problem Chronic pain syndrome G89.4 Active 723493470 Problem Osteoarthritis of both knees, unspecified osteoarthritis type M17.0 Active 767858446 ALLERGIES No Information ENCOUNTERS Encounter Location Date Diagnosis [place] [id number] [place] [address] 70662- 7356 Jun, 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 [place] [id number] [place] [address] 09536- 1333 Jun, [place] [id number] [place] [address] 82663- 8169 Jun, Gastroesophageal reflux disease without esophagitis K21.9 [place] [address] [place] [address] 75573- 6075 Jun, Allergic rhinitis, unspecified allergic rhinitis trigger, unspecified rhinitis seasonality J30.9 [facility] [address] [place] [id number] [place] [address] 01811- 3673 Jun, Chronic pain syndrome G89.4 [facility] [address] [place] [id number] [place] [address] 08801- 7500 May, [place] [address] 44108- 1221 May, COPD with acute exacerbation J44.1 [place] [address] 95859- 6026 14 May, 2017 Type 2 diabetes mellitus with diabetic neuropathy, without long-term current use of insulin E11.40 ; COPD with acute exacerbation J44.1 ; Hypoxia R09.02 ; Chronic pain syndrome G89.4 ; Yeast dermatitis B37.2 ; 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 and 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 [place] [address] 55254- 7604 May, [place] [address] 43638- 2826 May, Chronic pain syndrome G89.4 [place] [address] [place] [id number] [place] [address] 92850- 6530 May, [place] [address] 90610- 3355 May, [place] [address] [place] [id number] [place] [address] 24154- 4866 May, Mixed hyperlipidemia E78.2 [facility] [address] 68575- 9237 15 May, 2017 Chronic pain syndrome G89.4 [facility] [address] [place] [id number] [place] [address] 57249- 1483 May, Anxiety F41.9 and Chronic pain syndrome G89.4 [facility] [address] [address]- 9585 Mar, [facility] [address] [address] 3197 Mar, [facility] [address] [address]- 4810 Mar, [facility] [address] [id number] [place] [address] 87264- 1476 Mar, [facility] [address] [place] [address] 50059- 5847 Mar, [facility] [address] [place] [id number] [place] [address] 71261- 0773 Mar, Anxiety F41.9 and Chronic pain syndrome G89.4 [place] [address] [address]- 5031 Mar, Medicare annual wellness visit, initial Z00.00 [...] Hiatal hernia K44.9 and Actinic keratosis L57.0 [facility] [address] [address]- 5695 Mar, [facility] [address] [id number] [place] [address] 79439- 3029 Mar, Chronic pain syndrome G89.4 [facility] [address] [address]- 7371 Feb, [facility] [address] [place] [id number] [place] [address] 15442- 2132 Feb, Chronic pain syndrome G89.4 [facility] [address] [place] [id number] [place] [address] 17799- 3596 Feb, [facility] [address] [place] [id number] [place] [address] 90404- 3417 Feb, [facility] [address] 10682- 7623 Feb, Anxiety F41.9 [facility] [address] 69430- 8666 Feb, [facility] [address] 86334- 3235 Feb, Chronic pain syndrome G89.4 [facility] [address] 16267- 6887 Jan, Essential hypertension I10 [facility] [address] [place] [id number] [place] [address] 86434- 2961 Jan, Chronic pain syndrome G89.4 [facility] [address] [place] [id number] [place] [address] 50861- 8836 Jan, [facility] [address] [place] [id number] [place] [address] 57308- 3204 Jan, Anxiety F41.9 [facility] [address] [place] [id number] [place] [address] 12122- 6098 Jan, Encounter for immunization Z23 and Community acquired pneumonia, unspecified laterality J18.9 [facility] [address] [place] [id number] [place] [address] 93054- 5329 Jan, Type 2 diabetes mellitus with diabetic neuropathy, without long-term current use of insulin E11.40 [facility] [address] [place] [id number] [place] [address] 86925- 0688 Dec, Anxiety F41.9 and Chronic pain syndrome G89.4 [facility] [address] [place] [address]- 7748 Dec, Chronic pain syndrome G89.4 and Essential hypertension I10 [facility] [address] [place] [id number] [place] [address] 51763- 5959 16 Dec, 2016 [facility] [address] [place] [id number] [place] [address] 36702- 2597 Dec, Anxiety F41.9 [facility] [address] 94722 2543 Dec, [facility] [address] [place] [id number] [place] [address] 99507- 6366 04 Dec, 2016 Type 2 diabetes mellitus with diabetic neuropathy, without long-term current use of insulin E11.40 ; Lactic acidosis E87.2 ; Chronic obstructive pulmonary disease, unspecified COPD type J44.9 and Encounter for immunization Z23 [facility] [address] [place] [id number] [place] [address] 50877- 3144 Dec, Chronic pain syndrome G89.4 [facility] [address] [place] [id number] [place] [address] 88230 2542 28 Nov, 2016 [facility] [address] [place] [id number] [place] [address] 70307 2544 Nov, Chronic pain syndrome G89.4 [facility] [id number] [place] [address] 43545 2546 Nov, [facility] [address] [place] [id number] [place] [address] 73002 2549 Nov, [facility] [address] [place] [id number] [place] [address] 49623 254 15 Nov, 2016 Anxiety F41.9 [facility] [address] [place] [id number] [place] [address] 51652 2549 11 Nov, 2016 Anxiety F41.9 [facility] [address] [place] [address] 63411 2546 08 Nov, 2016 [facility] [address] [place] [address] [address]- 4376 Nov, [facility] [id number] [place] [address] 89921- 3187 Nov, [facility] [address] [place] [id number] [place] [address] 48595- 0681 Oct, [facility] [address] [place] [id number] [place] [address] 46169- 3463 Oct, [facility] [address] [place] [id number] [place] [address] 33842- 8542 Oct, [facility] [address] [place] [id number] [place] [address] 66734- 9006 Oct, Essential hypertension I10 and Chronic pain syndrome G89.4 [facility] [address] [place] [id number] [place] [address] 40415- 7077 Oct, Anxiety F41.9 [facility] [address] [place] [id number] [place] [address] 06673- 3032 Oct, [facility] [address] [place] [id number] [place] [address] 71867- 2377 Oct, Chronic pain syndrome G89.4 [facility] [address] [address] -8983 Oct, Sore throat J02.9 and Acute nasopharyngitis (common cold) J00 [facility] [address] [address]- 6845 Sep, [facility] [id number] [place] [address] 97980- 9930 Sep, COPD exacerbation J44.1 [facility] [address] [place] [id number] [place] [address] 52950- 0327 Sep, Chronic pain syndrome G89.4 [facility] [address] [address]- 0037 Sep, Essential hypertension I10 [facility] [id number] [place] [address] 56330- 0918 Sep, [facility] [address] [place] [id number] [place] [address] 84282- 2974 Sep, [facility] [address] [place] [id number] [place] [address] 91505- 5528 Sep, Anxiety F41.9 [facility] [address] [place] [id number] [place] [address] 93605- 8629 Sep, Chronic pain syndrome G89.4 [facility] [address] [place] [id number] [place] [address] 95042- 5480 Sep, [facility] [address] [place] [id number] [place] [address] 21907- 3191 Aug, Acute seasonal allergic rhinitis, unspecified trigger J30.2 ; Hiatal hernia K44.9 and Chronic pain syndrome G89.4 [facility] [address] [place] [id number] [place] [address] 62853- 5941 Aug, [facility] [address] [place] [id number] [place] [address] 10621- 4083 Aug, [facility] [address] [place] [id number] [place] [address] 76177- 8710 Aug, Chronic obstructive pulmonary disease, unspecified COPD type J44.9 [facility] [address] [place] [id number] [place] [address] 38299- 6871 Aug, Anxiety F41.9 [facility] [address] [place] [id number] [place] [address] 05684- 1018 08 Aug, 2016 Chronic pain syndrome G89.4 [facility] [address] [place] [id number] [place] [address] 03801- 8052 Aug, Hiatal hernia K44.9 and Actinic keratosis L57.0 [facility] [address] [place] [id number] [place] [address] 68852- 6206 Aug, [facility] [address] [address]- 9502 Aug, Anxiety F41.9 [facility] [address] [place] [id number] [place] [address] 43151- 3022 July, [facility] [address] [place] [id number] [place] [address] 92098- 2342 July, Hiatal hernia K44.9 [facility] [address] [place] [id number] [place] [address] 60255- 9086 July, [facility] [address] [place] [id number] [place] [address] 70818- 6513 July, Anxiety F41.9 and Chronic pain syndrome G89.4 [facility] [address] [place] [id number] [place] [address] 99176- 2975 July, [facility] [address] [place] [id number] [place] [address] 79659- 1161 Jun, Chronic pain syndrome G89.4 [facility] [address] [place] [id number] [place] [address] 94957- 0096 Jun, Chronic pain syndrome G89.4 [facility] [address] [place] [id number] [place] [address] 66092- 6508 Jun, [facility] [address] [place] [address] 92624- 7388 Jun, Anxiety F41.9 [facility] [address] [place] [id number] [place] [address] 22242- 4463 Jun, Allergic rhinitis, unspecified allergic rhinitis trigger, unspecified rhinitis seasonality J30.9 [facility] [address] [place] [id number] [place] [address] 47861- 8272 Jun, [facility] [address] [place] [id number] [place] [address] 25539- 7063 May, Chronic pain syndrome G89.4 [facility] [address] [place] [id number] [place] [address] 69845- 6732 May, [place] [address] [address]- 6961 May, [address] [place] [address]- 9973 May, Anxiety F41.9 [address] [place] [address] 15473- 9064 May, Type 2 diabetes mellitus with diabetic [...] Anxiety F41.9 and Chronic pain syndrome G89.4 [place] [id number] [place] [address] 38348- 9160 May, Essential hypertension I10 ; Type 2 diabetes mellitus with diabetic neuropathy, without long-term current use of insulin E11.40 ; Mixed hyperlipidemia E78.2 ; Chronic obstructive pulmonary disease, unspecified COPD type J44.9 and Chronic GERD K21.9 [address] [place] [address] 59561- 1243 May, [address] [address]- 5892 May, [place] [id number] [place] [address] 79241- 9144 May, Type 2 diabetes mellitus with diabetic neuropathy, without long-term current use of insulin E11.40 [place] [id number] [place] [address] 62228- 3393 May, Dementia without behavioral disturbance, unspecified dementia type F03.90 [place] [id number] [place] [address] 57771- 8213 May, Type 2 diabetes mellitus with diabetic neuropathy, without long-term current use of insulin E11.40 ; Essential hypertension I10 ; Mixed hyperlipidemia E78.2 ; Chronic obstructive pulmonary disease, unspecified COPD type J44.9 ; Chronic GERD K21.9 and Osteoarthritis of both knees, unspecified osteoarthritis type M17.0 [place] [address] [place] [id number] [place] [address] 94841- 9342 May, [place] [address] 42632- 8357 May, [place] [address] [place] [id number] [place] [address] 24684- 5059 May, Anxiety F41.9 and Unspecified symptoms and signs involving cognitive functions and awareness R41.9 [place] [address] [place] [id number] [place] [address] 38130- 5441 May, [place] [address] 99992- 3173 May, Type 2 diabetes mellitus with diabetic neuropathy, without long-term current use of insulin E11.40 ; Anxiety F41.9 and Chronic obstructive pulmonary disease, unspecified COPD type J44.9 [place] [address] [place] [id number] [place] [address] 10556- 4031 May, [place] [address] [place] [id number] [place] [address] 55230- 4198 May, [place] [address] [place] [id number] [place] [address] 94863- 3971 May, [place] [address] [place] [id number] [place] [address] 12547- 3983 May, Chronic obstructive pulmonary disease, unspecified COPD type J44.9 [place] [address] [place] [id number] [place] [address] 14974- 9782 Mar, [place] [address] [place] [id number] [place] [address] 22290- 1562 27 Blas, 2017 Arthritis of both knees M19.90 [place] [address] [place] [id number] [place] [address] 37139- 0312 16 Mar, 2016 Type 2 diabetes mellitus with diabetic neuropathy, without long-term current use of insulin E11.40 [place] [address] [place] [id number] [place] [address] 79830- 9085 Mar, [place] [address] 85742- 4481 Mar, Neck pain M54.2 and Weakness generalized R53.1 [place] [address] 77544- 4952 Mar, [place] [address] 67040- 6378 Mar, Cervicalgia M54.2 and Impacted cerumen of both ears H61.23 [place] [address] 44217- 6481 Mar, [place] [address] [place] [id number] [place] [address] 04533- 6539 Mar, Type 2 diabetes mellitus with diabetic neuropathy, without long-term current use of insulin E11.40 [place] [address] [place] [id number] [place] [address] 92542- 1280 Feb, [place] [address] [place] [id number] [place] [address] 18196- 9560 Feb, Hypoxia R09.02 [place] [address] [place] [id number] [place] [address] 07749- 9668 Feb, [place] [address] [place] [id number] [place] [address] 56928- 4120 Feb, [place] [address] [place] [id number] [place] [address] 34042- 2126 Feb, [place] [address] [place] [id number] [place] [address] 67576- 5193 Feb, Type 2 diabetes mellitus with diabetic neuropathy, without long-term current use of insulin E11.40 [facility] [address] [address]- 6545 Feb, Osteoarthritis of both knees, unspecified osteoarthritis type M17.0 [facility] [address] [address]- 9204 Feb, [facility] [address] [place] [address] 70682- 6907 Feb, [facility] [address] [place] [id number] [place] [address] 50283- 7282 Feb, [place] [address] [place] [id number] [place] [address] 59458- 2375 Jan, [facility] [address] [place] [id number] [place] [address] 97271- 8362 Jan, [facility] [address] [place] [id number] [place] [address] 05393- 1132 Jan, [facility] [address] [place] [address] 45036- 1412 Jan, [facility] [address] [place] [address] 13018- 0440 Jan, Tinea pedis of both feet B35.3 [place] [address] [place] [address] 70768- 6241 Jan, Type 2 diabetes mellitus with diabetic [...] seasonality J30.9 and Encounter for immunization Z23 [place] [address] [place] [address] [address]- 5008 Jan, [facility] [address] [address]- 3563 Jan, [facility] [address] [address]- 9010 Dec, [facility] [address] [place] [address] 17879- 2040 Dec, [facility] [address] [address] -8882 Dec, Unspecified asthma with (acute) exacerbation J45.901 and Chronic obstructive pulmonary disease with (acute) exacerbation J44.1 [facility] [address] [address]- 5265 Dec, Arthritis of both knees M19.90 and Acute medial meniscus tear, right, initial encounter S83.241A [facility] [address] [address]- 1270 Dec, [facility] [address] [address]- 8460 Dec, [facility] [id number] [address]- 4283 Dec, [facility] [address] [address]- 1273 Dec, [facility] [address] [address]- 2783 Dec, History of pneumonia Z87.01 [facility] [address] [address]- 1857 Dec, [facility] [address] [address]- 1436 Dec, [facility] [address] [address]- 0143 Dec, [place] [address] [address]- 8954 Dec, [place] [id number] [place] [address] 34258- 1299 Dec, [place] [address] [place] [address] 25408- 2409 Dec, [place] [address] [place] [address] [id number] [place] [address] 17806- 7452 30 Nov, 2015 Cough R05 and Pneumonia due to infectious organism, unspecified laterality, unspecified part of lung J18.9 [place] [address] [id number] [place] [address] 94995- 1997 Nov, [place] [address] [place] [address] [id number] [place] [address] 93224- 0530 22 Nov, 2015 Type 2 diabetes mellitus [...] allergic rhinitis trigger, unspecified rhinitis seasonality J30.9 [place] [address] [place] [address] 79689- 2882 12 Nov, 2015 IMMUNIZATIONS No Known Immunizations SOCIAL HISTORY Never Assessed REASON FOR VISIT Refill request PLAN OF CARE VITAL SIGNS MEDICATIONS Unknown Medications RESULTS No Results PROCEDURES No Known procedures INSTRUCTIONS MEDICATIONS ADMINISTERED No Known Medications MEDICAL (GENERAL) HISTORY Type Description Date Medical History hypertension Medical History chronic obstructive pulmonary disease (COPD)-wears 2L O2 per [place], uses [place] for home O2 Medical History Arthritis-knees and [...] TIA, Via [facility] 2014 Hospitalization History COPD exacerbation--[facility] 12/27/2015 Hospitalization History [facility] - fall 02/2016 Hospitalization History [facility] pneumonia 11/2016 Hospitalization History COPD exacerbation - Dr Hartley Attending 12/2016 Hospitalization History Cough- [facility] 04/10/2017
--- OUTSIDE RECORDS SUMMARY | 2017-08-12 16:15 | XMS REPORT ---
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 Active 6587989 Problem 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 Active 419170157 Problem Mixed hyperlipidemia E78.2 Active 373416484 Problem Chronic obstructive pulmonary disease, unspecified COPD type J44.9 Active 67808521 Problem Gastroesophageal reflux disease without esophagitis K21.9 Active 027660345 Problem Chronic GERD K21.9 Active 532865467 Problem Type 2 diabetes mellitus with diabetic neuropathy, without long-term current use of insulin E11.40 Active 36459641 Problem Allergic rhinitis, unspecified allergic rhinitis trigger, unspecified rhinitis seasonality J30.9 Active 79704517 Problem Chronic pain syndrome G89.4 Active 550579064 Problem Osteoarthritis of both knees, unspecified osteoarthritis type M17.0 Active 994136040 ALLERGIES Substance Reaction Event Type Date Status Hydrocodone-Acetaminophen Unknown Drug Allergy Oct, Active Codeine Sulfate Unknown Drug Allergy Oct, Active Aspirin Unknown Drug Allergy Oct, Active ENCOUNTERS Encounter Location Date Diagnosis [facility] [address] [facility]NOTE [address] [id number] [address] Jun, 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 [facility] [id number], [place] [address] Jun, [facility] [address] [facility]NOTE [facility]] [id number] [address] Jun, Gastroesophageal reflux disease without esophagitis K21.9 [facility] [id number] [place] [address] 26514- 6692 04 Jun, 2017 Allergic rhinitis, unspecified allergic rhinitis trigger, unspecified rhinitis seasonality J30.9 [facility] [id number] [place] [address] 59879- 3236 Jun, Chronic pain syndrome G89.4 [place] [address] 65046- 5281 May, [place] [address] 00961- 9540 May, COPD with acute exacerbation J44.1 [place] [address] 74140- 9508 14 May, 2017 Type 2 diabetes mellitus with diabetic neuropathy, without long-term current use of insulin E11.40 ; COPD with acute exacerbation J44.1 ; Hypoxia R09.02 ; Chronic pain syndrome G89.4 ; Yeast dermatitis B37.2 ; 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 and 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 [place] [address] 9[address]25- 3959 May, [place] [id number] [place] [address] 66787- 5257 May, Chronic pain syndrome G89.4 [place] [id number] [place] [address] 82538- 3232 May, [place] [id number] [place] [address] 72678- 9499 May, [place] [address] 98142- 7308 May, Mixed hyperlipidemia E78.2 [place] [id number] [place] [address] 30392- 6769 15 May, 2017 Chronic pain syndrome G89.4 [place] [address], [place] [address] 1321 May, Anxiety F41.9 and Chronic pain syndrome G89.4 [facility] [address], [place] [address] 4427 Mar, [facility] [address], [place] [address] 4157 Mar, [facility] [id number] [place] [address] 58895- 6069 Mar, [facility] [id number] [place] [address] 97531- 5067 Mar, [facility] [id number] [place] [address] 69900- 6973 Mar, [facility] [id number] [place] [address] 50864- 7631 Mar, Anxiety F41.9 and Chronic pain syndrome G89.4 [facility] [address], [place] [address] Mar, Medicare annual wellness visit, initial Z00.00 [...] hernia K44.9 and Actinic keratosis L57.0 [facility] [address], [place] [address] 6340 Mar, [facility] [address], [place] [address] 1516 Mar, Chronic pain syndrome G89.4 [facility] [id number] [place] [address] 50650- 2331 Feb, [facility] [id number] [place] [address] 47981- 7055 Feb, Chronic pain syndrome G89.4 [facility] [id number] [place] [address] 47257- 4612 Feb, [facility] [address] 74869- 4786 Feb, [facility] [id number] [place] [address] 89803- 0153 Feb, Anxiety F41.9 [facility] [address] 31694- 6082 Feb, [facility] [id number] [place] [address] 18258- 6369 Feb, Chronic pain syndrome G89.4 [facility] [id number] [place] [address] 45165- 3701 Jan, Essential hypertension I10 [facility] [address] 09078- 5483 Jan, Chronic pain syndrome G89.4 [facility] [id number] [place] [address] 37132- 4405 Jan, [facility] [id number] [place] [address] 82492- 1585 Jan, Anxiety F41.9 [facility] [id number] [place] [address] 02808- 4345 Jan, Encounter for immunization Z23 and Community acquired pneumonia, unspecified laterality J18.9 [facility] [id number] [place] [address] 58036- 4451 Jan, Type 2 diabetes mellitus with diabetic neuropathy, without long-term current use of insulin E11.40 [facility] [id number] [place] [address] 53672- 7182 Dec, Anxiety F41.9 and Chronic pain syndrome G89.4 [facility] [address] 618081- 2591 23 Dec, 2016 Chronic pain syndrome G89.4 and Essential hypertension I10 [facility] [id number] [place] [address] 46145- 9068 16 Dec, 2016 [facility] [address] 25005- 9011 Dec, Anxiety F41.9 [facility] [id number] [place] [address] 91860- 9777 Dec, [facility] [id number] [place] [address] 23726- 4810 04 Dec, 2016 Type 2 diabetes mellitus with diabetic neuropathy, without long-term current use of insulin E11.40 ; Lactic acidosis E87.2 ; Chronic obstructive pulmonary disease, unspecified COPD type J44.9 and Encounter for immunization Z23 [facility] [id number] [place] [address] 63255- 9044 Dec, Chronic pain syndrome G89.4 [facility] [address] 74664- 5696 28 Nov, 2016 [facility] [id number] [place] [address] 52033- 2933 Nov, Chronic pain syndrome G89.4 [facility] [id number] [place] [address] 89874- 7366 Nov, [facility] [id number] [place] [address] 47214- 5488 Nov, [facility] [address] 80358- 9889 15 Nov, 2016 Anxiety F41.9 [facility] [id number] [place] [address] 77795- 0421 11 Nov, 2016 Anxiety F41.9 [facility] [address], [place] [address]- 3398 08 Nov, 2016 [facility] [id number] [place] [address] 28223- 6180 Nov, [facility] [id number] [place] [address] 85521- 1106 Nov, [facility] [id number] [place] [address] 44862- 0894 Oct, [facility] [id number] [place] [address] 93106- 1723 Oct, [facility] [id number] [place] [address] 81189- 1159 Oct, [facility] [id number] [place] [address] 84014- 1144 Oct, Essential hypertension I10 and Chronic pain syndrome G89.4 [facility] [id number] [place] [address] 95467- 5060 Oct, Anxiety F41.9 [facility] [id number] [place] [address] 24907- 9107 Oct, [facility] [id number] [place] [address] 94943- 3645 Oct, Chronic pain syndrome G89.4 [facility] [id number], [place] [address]7 Oct, Sore throat J02.9 and Acute nasopharyngitis (common cold) J00 [facility] [id number], [place] [address]- 7373 Sep, [facility] [id number] [place] [address] 42752- 4038 Sep, COPD exacerbation J44.1 [facility] [address], [place] [address]- 6430 Sep, Chronic pain syndrome G89.4 [facility] [id number] [place] [address] 68385- 4610 Sep, Essential hypertension I10 [facility] [id number] [place] [address] 80726- 9856 Sep, [facility] [id number] [place] [address] 00842- 7616 Sep, [facility] [address] 22161- 6664 Sep, Anxiety F41.9 [facility] [id number] [place] [address] 86768- 5050 Sep, Chronic pain syndrome G89.4 [facility] [id number] [place] [address] 31952- 5657 Sep, [facility] [address] 59730- 9340 Aug, Acute seasonal allergic rhinitis, unspecified trigger J30.2 ; Hiatal hernia K44.9 and Chronic pain syndrome G89.4 [facility] [id number] [place] [address] 64352- 6064 Aug, [facility] [id number] [place] [address] 97144- 2421 Aug, [facility] [id number] [place] [address] 13059- 7443 Aug, Chronic obstructive pulmonary disease, unspecified COPD type J44.9 [facility] [id number] [place] [address] 04246- 7382 Aug, Anxiety F41.9 [facility] [id number] [place] [address] 96154- 5317 08 Aug, 2016 Chronic pain syndrome G89.4 [facility] [id number] [place] [address] 32640- 8994 Aug, Hiatal hernia K44.9 and Actinic keratosis L57.0 [facility] [id number] [place] [address] 18239- 5902 Aug, [facility] [id number] [place] [address] 95181- 1525 Aug, Anxiety F41.9 [facility] [id number] [place] [address] 93662- 6490 July, [facility] [id number] [place] [address] 63812- 4917 July, Hiatal hernia K44.9 [facility] [id number] [place] [address] 94027- 7112 July, [facility] [id number] [place] [address] 90293- 8165 July, Anxiety F41.9 and Chronic pain syndrome G89.4 [facility] [id number] [place] [address] 81913- 6870 July, [facility] [id number] [place] [address] 84784- 1736 Jun, Chronic pain syndrome G89.4 [facility] [id number] [place] [address] 84842- 6683 Jun, Chronic pain syndrome G89.4 [facility] [id number] [place] [address] 23574- 1760 Jun, [facility] [id number] [place] [address] 78149- 2022 Jun, Anxiety F41.9 [facility] [id number] [place] [address] 35572- 8455 Jun, Allergic rhinitis, unspecified allergic rhinitis trigger, unspecified rhinitis seasonality J30.9 [facility] [id number] [place] [address] 61135- 6752 Jun, [facility] [id number] [place] [address] 95153- 7764 May, Chronic pain syndrome G89.4 [facility] [address], [place] [address]- 2635 May, [facility] [address], [place] [address]- 4483 May, [place] [address], [place] [address]- 9921 May, Anxiety F41.9 [address] [id number], [place] [address]- 8235 May, Type 2 diabetes mellitus with diabetic [...] Anxiety F41.9 and Chronic pain syndrome G89.4 [place], [place] [address]- 3104 May, Essential hypertension I10 ; Type 2 diabetes mellitus with diabetic neuropathy, without long-term current use of insulin E11.40 ; Mixed hyperlipidemia E78.2 ; Chronic obstructive pulmonary disease, unspecified COPD type J44.9 and Chronic GERD K21.9 [address] [address], [place] [address]- 0533 May, [place], [place] [address]- 1776 May, [address], [place] [address]- 1727 May, Type 2 diabetes mellitus with diabetic neuropathy, without long-term current use of insulin E11.40 [place] [address], [place] [address]- 5632 May, Dementia without behavioral disturbance, unspecified dementia type F03.90 [place] [address] [place] [address] 77139- 0934 May, Type 2 diabetes mellitus with diabetic neuropathy, without long-term current use of insulin E11.40 ; Essential hypertension I10 ; Mixed hyperlipidemia E78.2 ; Chronic obstructive pulmonary disease, unspecified COPD type J44.9 ; Chronic GERD K21.9 and Osteoarthritis of both knees, unspecified osteoarthritis type M17.0 [place] [id number] [place] [address] 06029- 3542 May, [place] [id number] [place] [address] 64880- 4997 May, [place] [id number] [place] [address] 71015- 0182 May, Anxiety F41.9 and Unspecified symptoms and signs involving cognitive functions and awareness R41.9 [place] [id number] [place] [address] 45927- 9341 May, [place] [id number] [place] [address] 69659- 1831 May, Type 2 diabetes mellitus with diabetic neuropathy, without long-term current use of insulin E11.40 ; Anxiety F41.9 and Chronic obstructive pulmonary disease, unspecified COPD type J44.9 [place] [id number] [place] [address] 79404- 6423 May, [place] [id number] [place] [address] 46098- 4058 May, [place] [id number] [place] [address] 77655- 3053 May, [place] [id number] [place] [address] 35592- 1810 May, Chronic obstructive pulmonary disease, unspecified COPD type J44.9 [place] [id number] [place] [address] 85387- 3077 Mar, [place] [id number] [place] [address] 24593- 5020 Mar, Arthritis of both knees M19.90 [place] [address] 42124- 8084 Mar, Type 2 diabetes mellitus with diabetic neuropathy, without long-term current use of insulin E11.40 [place] [address] 02139- 2334 Mar, [place] [address] 48484- 2288 Mar, Neck pain M54.2 and Weakness generalized R53.1 [place] [address] 82755- 5397 Mar, [place] [address] 75332- 0742 Mar, Cervicalgia M54.2 and Impacted cerumen of both ears H61.23 [place] [address] 87965- 1346 Mar, [place] [address] 92528- 9551 Mar, Type 2 diabetes mellitus with diabetic neuropathy, without long-term current use of insulin E11.40 [place] [address] 18354- 6709 Feb, [place] [address] 56135- 2658 Feb, Hypoxia R09.02 [place] [address] 50321- 5802 Feb, [place] [address] 29418- 4599 Feb, [place] [address] 18496- 8655 Feb, [facility] [address], [place] [address]- 5403 16 Feb, 2016 Type 2 diabetes mellitus with diabetic neuropathy, without long-term current use of insulin E11.40 [facility] [address], [place] [address]- 4523 15 Feb, 2016 Osteoarthritis of both knees, unspecified osteoarthritis type M17.0 [facility] [id number] [place] [address] 67890- 5960 Feb, [facility] [id number] [place] [address] 01039- 6726 Feb, [facility] [id number] [place] [address] 60327- 6186 Feb, [facility] [id number] [place] [address] 19146- 8640 Jan, [facility] [id number] [place] [address] 55076- 2739 15 Jan, 2016 [facility] [id number] [place] [address] 09491- 0637 Jan, [facility] [address] [place] [address] 83756- 6770 14 Jan, 2016 [facility] [address], [place] [address]- 7927 Jan, Tinea pedis of both feet B35.3 [facility] [address], [place] [address]- 1326 03 Jan, 2016 Type 2 diabetes mellitus [...] seasonality J30.9 and Encounter for immunization Z23 [facility] [id number] [place] [address] 76361- 4892 Jan, [facility] [id number] [place] [address] 45381- 9621 Jan, [facility] [address] 92327- 4940 Dec, [facility] [id number] [place] [address] 92283- 8295 Dec, [facility] [address] 91517 -8130 Dec, Unspecified asthma with (acute) exacerbation J45.901 and Chronic obstructive pulmonary disease with (acute) exacerbation J44.1 [place] [address] 12375- 6622 Dec, Arthritis of both knees M19.90 and Acute medial meniscus tear, right, initial encounter S83.241A [place] [id number] [place] [address] 74762- 1446 Dec, [place] [id number] [place] [address] 65485- 6323 Dec, [facility] [id number] [place] [address] 02496- 6855 Dec, [facility] [id number] [place] [address] 18561- 1795 Dec, [place] [id number] [place] [address] 95575- 8615 Dec, History of pneumonia Z87.01 [facility] [id number] [place] [address] [phone] Dec, [facility] [id number] [place] [address] [phone] Dec, [facility] [place] [id number] [address] Dec, [facility] [id number] [place] [address] [phone] Dec, [facility] [id number] [place] [address] [phone] Dec, [facility] [address] [phone]- [phone] Dec, [facility] [id number] [place] [address] [phone] Nov, Cough R05 and Pneumonia due to infectious organism, unspecified laterality, unspecified part of lung J18.9 [facility] [id number] [place] [address] [phone] Nov, [facility] [id number] [place] [address] [phone] Nov, Type 2 diabetes mellitus with diabetic [...] allergic rhinitis trigger, unspecified rhinitis seasonality J30.9 [facility] [id number] [place] [address] [phone] Nov, IMMUNIZATIONS No Known Immunizations SOCIAL HISTORY Never Assessed REASON FOR VISIT Sore throat started last night JStrasserRN PLAN OF CARE Activity Details Follow Up prn Reason: VITAL SIGNS Height 72 in 2016-11-04 Weight 238.4 lbs 2016-11-04 Temperature 97.6 degrees Fahrenheit 2016-11-04 Heart Rate 88 bpm 2016-11-04 Respiratory Rate 18 2016-11-04 BMI 32.33 kg/m2 2016-11-04 Blood pressure systolic 128 mmHg 2016-11-04 Blood pressure diastolic 64 mmHg 2016-11-04 MEDICATIONS Medication Instructions Dosage Frequency Start Date End Date Duration Status Levocetirizine Dihydrochloride 5 mg Orally Once a day 1 tablet in the evening 24h 30 days Active Spiriva HandiHaler 18 MCG Inhalation Once a day 1 capsule 24h Active Pantoprazole Sodium 40 mg Orally Once a day 1 tablet 24h Active Clonazepam 1 MG Orally 3x a day prn must last 28 Days 1 tablet Active Metformin HCl 500 mg Orally Twice a day 1/2 tablet 12h Active Ranitidine HCl 150 MG 1 tablet at bedtime Jun, 30 day(s) Active MiraLax - Orally once daily as needed 1 packet mixed with 8 ounces of fluid July, 30 day(s) Active Oxygen 3 L by inhalation route as directed as directed Feb, Active Montelukast Sodium 10 mg Orally Once a day 1 tablet in the evening 24h 30 days Active Cetirizine HCl 10 MG Orally Once a day 1 tablet 24h Active Fluticasone Propionate 50 MCG/ACT Nasally Once a day 1 spray in each nostril 24h Aug, 30 day(s) Active Voltaren 1 % Transdermal 3-4 times a week 1 gram Mar, Active GlipiZIDE 5 mg Orally Once a day 1 tablet 24h 30 Active Albuterol Sulfate (2.5 MG/3ML) 0.083% Inhalation every 4 hours as needed 3 ml Active Tramadol HCl 50 mg Orally every 12 hrs must last 28 days 1 tablet as needed Active Benazepril HCl 20 mg Orally Once a day 1 tablet 24h 30 Active Viibryd 10 mg Orally Once a day 1 tablet with food 24h Active Coricidin HBP Day/Night Cold 10-20 &15-200-2 MG Active Cefuroxime Axetil 250 MG Orally 2 times a day 1 capsule 12h Active Symbicort 80-4.5 MCG/ACT Inhalation Twice a day 2 puffs 12h Active Doxazosin Mesylate 4 MG Orally Once a day 1 tablet 24h Active Amlodipine Besylate 10 mg Orally Once a day 1 tablet 24h Active Sennosides 15 MG Orally Once a day 1 tablet at bedtime as needed 24h Active Sucralfate 1 GM Orally 4 times a day 1 tablet on an empty stomach 6h Active Lyrica 100 mg Orally Twice a day 1 capsule 12h 28 days Active Oxybutynin Chloride ER 15 MG Orally Once a day 1 tablet 24h Active Atorvastatin Calcium 40 mg Orally Once a day 1 tablet 24h Active Exelon 4.6 MG/24HR APPLY ONE PATCH TO HAIR-FREE AREA ABOVE THE WAIST AND CHANGE EVERY 24 HOURS Active Knee Brace/Hinged L/XL - as directed May, Active Triamcinolone Acetonide 0.1 % Externally Twice a day to as needed 1 application to affected area Jan, Active RESULTS Name Result Date Reference Range STREP A (IN HOUSE) 2016-11-04 STREP A negative Control + Lot # [id number] Exp date [id number] PROCEDURES Procedure Date Ordered Result Body Site STREP A ASSAY W/OPTIC Nov 04, 2016 [facility] VISIT ESTABLISHED PATIENT Nov 04, 2016 INSTRUCTIONS MEDICATIONS ADMINISTERED No Known Medications MEDICAL (GENERAL) HISTORY Type Description Date Medical History hypertension Medical History chronic obstructive pulmonary disease (COPD)-wears 2L O2 per [place], uses [place] for home O2 Medical History Arthritis-knees and [...] Attending 12/2016 Hospitalization History Cough- [facility] [place] 04/10/2017
[2017-08-12 16:41] LABS: BASOPHILS % (AUTO) 0 % (0-10); EOSINOPHILS # (AUTO) 0.2 10^3/uL (0.0-0.3); EOSINOPHILS % (AUTO) 3 % (0-10); HEMATOCRIT 39 % (40-54); HEMOGLOBIN 12.8 G/DL (13.3-17.7); LYMPHOCYTES # (AUTO) 2.1 X 10^3 (1.0-4.0); LYMPHOCYTES % (AUTO) 27 % (12-44); MEAN CORPUSCULAR HEMOGLOBIN 29 PG (25-34); MEAN CORPUSCULAR HGB CONC 33 G/DL (32-36); MEAN CORPUSCULAR VOLUME 89 FL (80-99); MEAN PLATELET VOLUME 9.3 FL (7.4-10.4); MONOCYTES % (AUTO) 13 % (0-12); NEUTROPHILS # (AUTO) 4.4 X 10^3 (1.8-7.8); NEUTROPHILS % (AUTO) 57 % (42-75); PLATELET COUNT 217 10^3/uL (130-400); RED BLOOD COUNT 4.34 10^6/uL (4.35-5.85); RED CELL DISTRIBUTION WIDTH 13.6 % (10.0-14.5); WHITE BLOOD COUNT 7.6 10^3/uL (4.3-11.0)
[2017-08-12 17:01] LABS: ALANINE AMINOTRANSFERASE 56 U/L (0-55); ALBUMIN 4.4 GM/DL (3.2-4.5); ALKALINE PHOSPHATASE 82 U/L (40-136); BILIRUBIN,TOTAL 0.3 MG/DL (0.1-1.0); BUN/CREATININE RATIO 11; CALCIUM 9.5 MG/DL (8.5-10.1); CARBON DIOXIDE 23 MMOL/L (21-32); CHLORIDE 105 MMOL/L (98-107); CREATININE SERUM 0.95 MG/DL (0.60-1.30); GFR ESTIMATED > 60; GLUCOSE 148 MG/DL (70-105); POTASSIUM 4.4 MMOL/L (3.6-5.0); SODIUM 139 MMOL/L (135-145); TOTAL PROTEIN 7.3 GM/DL (6.4-8.2)
[2017-08-12 17:22] LABS: BILIRUBIN,URINE NEGATIVE (NEGATIVE); CLARITY,URINE CLEAR; COLOR,URINE YELLOW; GLUCOSE, URINE (UA) NEGATIVE (NEGATIVE); KETONES,URINE NEGATIVE (NEGATIVE); LEUKOCYTE ESTERASE ,URINE NEGATIVE (NEGATIVE); NITRITE,URINE NEGATIVE (NEGATIVE); PH,URINE 6 (5-9); PROTEIN,URINE NEGATIVE (NEGATIVE); UROBILINOGEN,URINE NORMAL (NORMAL)
[2017-08-12 17:31] LABS: BACTERIA,URINE NEGATIVE /HPF; WBC,URINE RARE /HPF
--- NOTE | 2017-08-12 17:38 | ED General ---
General Chief Complaint: Abdominal/GI Problems Stated Complaint: NAUSEA Nursing Triage Note: ARRIVED VIA AMB WITH A WALKER TO ROOM 09. COMPLAINS OF NAUSEA STARTING YESTERDAY. Nursing Sepsis Screen: No Definite Risk Source of Information: Patient Exam Limitations: No Limitations History of Present Illness Date Seen by Provider: August 12, 2017 Time Seen by Provider: 16:15 Initial Comments This 81-year-old gentleman presents to the emergency room with complaints of nausea without vomiting today. He reports he is occasionally constipated but takes laxatives to correct this. His last bowel movement was 3 days ago. He does not feel constipated at present. He also complains of pain in the left buttock region around and ulcer that is being treated by Dr. Lopez in wound care. He states the ulcer is getting better but the pain is worsened and is now spreading toward his groin. He is using a topical ointment or cream for treatment of this lesion. Allergies and Home Medications Allergies Coded Allergies: aspirin (Unverified Allergy, Unknown, 05/20/14) codeine (Verified Allergy, Unknown, 04/07/06) hydrocodone (Unverified Allergy, Unknown, 10/16/15) Uncoded Allergies: SSRI (Allergy, Unknown, 05/20/14) TCA (Allergy, Unknown, 05/20/14) Home Medications Amlodipine Besylate 10 Mg Tablet, 10 MG PO HS, (Reported) Atorvastatin Calcium 40 Mg Tablet, 40 MG PO HS, (Reported) Azithromycin 250 Mg Tablet, 250 MG PO DAILY@1700 Prescribed by: DARIN PINEDO on 01/27/17 1128 Benazepril HCl 20 Mg Tablet, 20 MG PO HS, (Reported) Cefpodoxime Proxetil 200 Mg Tablet, 200 MG PO BID Prescribed by: DARIN PINEDO on 01/27/17 1131 Cephalexin 500 Mg Capsule, 500 MG PO QID Prescribed by: CEASAR CASTILLO on 08/12/17 1741 Chlorphen/Dm/Acetaminophen/GG 1 Each Tb.cp.seq, 1-2 TAB PO Q6H PRN for DRAINAGE, (Reported) Clonazepam 1 Mg Tablet, 1 MG PO TID, (Reported) Doxazosin Mesylate 4 Mg Tablet, 4 MG PO DAILY, (Reported) Fluconazole 150 Mg Tablet, 150 MG PO UD Take one now and repeat in 3 or 4 days Prescribed by: CEASAR CASTILLO on 08/12/17 174 Fluticasone Propionate 16 Gm [place].susp, 2 SPRAYS NS DAILY, (Reported) Glipizide 5 Mg Tablet, 5 MG PO BID, (Reported) Glycerin/Propylene Glycol 15 Ml Drops, 1 DROP OU QID PRN for DRY EYES, (Reported ) Guaifenesin/Dextromethorphan 5 Ml Syrup, 5 ML PO TID, (Reported) Ipratropium/Albuterol Sulfate 3 Ml Ampul.neb, 3 ML IH TID, (Reported) Levocetirizine Dihydrochloride 5 Mg Tablet, 5 MG PO HS, (Reported) Metformin HCl 500 Mg Tablet, 250 MG PO BID, (Reported) TAKES 1/2 OF A (500 MG) TABLET Mineral Oil/Petrolatum,White 3.5 Gm Oint...g., OU BID, (Reported) Mirabegron 25 Mg Tab.er.24h, 25 MG PO DAILY, (Reported) Montelukast Sodium 10 Mg Tablet, 10 MG PO HS, (Reported) Multivitamin 1 Each Tablet, 1 TAB PO DAILY, (Reported) Ondansetron 4 Mg Tab.rapdis, 4 MG PO Q4H PRN for NAUSEA/VOMITING-1ST LINE Prescribed by: BOZENA WERNER on 05/02/17 184 Ondansetron 4 Mg Tab.rapdis, 4 MG SL Q4H PRN for NAUSEA/VOMITING-1ST LINE Prescribed by: CEASAR CASTILLO on 08/12/17 174 Oseltamivir Phosphate 75 Mg Cap, 75 MG PO BID Prescribed by: BOZENA WERNER on 05/02/17 184 Pantoprazole Sodium 40 Mg Tablet.dr, 40 MG PO DAILY, (Reported) Pantoprazole Sodium 40 Mg Tablet.dr, 40 MG PO DAILY Prescribed by: CEASAR CASTILLO on 07/29/17 1630 Prednisone 20 Mg Tab, 20 MG PO DAILY Prescribed by: DOMINGA TOLEDO on 04/10/17 1221 Pregabalin 100 Mg Capsule, 100 MG PO TID, (Reported) Ranitidine HCl 150 Mg Tablet, 150 MG PO HS, (Reported) Rivastigmine 1 Each Patch.td24, 4.6 MG TD DAILY, (Reported) Sucralfate 1 Gm Tablet, 1 GM PO QID, (Reported) Tramadol HCl 50 Mg Tablet, 50 MG PO BID PRN for PAIN-MODERATE, (Reported) Triamcinolone Acet 15 Gm Cr, TP BID PRN for BED SORES, (Reported) Vilazodone Hydrochloride 10 Mg Tablet, 10 MG PO HS, (Reported) Patient Home Medication List Home Medication List Reviewed: Yes Review of Systems Constitutional: no symptoms reported EENTM: no symptoms reported Respiratory: no symptoms reported Cardiovascular: no symptoms reported Gastrointestinal: see HPI Genitourinary: no symptoms reported Musculoskeletal: no symptoms reported Skin: see HPI Psychiatric/Neurological: No Symptoms Reported Hematologic/Lymphatic: No Symptoms Reported Immunological/Allergic: no symptoms reported Past Jhuczmd-Pfnrlk-Bnnpgw Hx Past Med/Social Hx: Reviewed Nursing Past Med/Soc Hx Patient Social History Alcohol Use: Past History Recreational Drug Use: No Smoking Status: Former Smoker Type Used: Cigarettes Former Smoker, Quit: Mar 31, 1966 2nd Hand Smoke Exposure: No Recent Foreign Travel: No Contact w/Someone Who Travel: No Recent Infectious Disease Expo: No Recent Hopitalizations: No Immunizations Up To Date Tetanus Booster (TDap): Unknown Date of Pneumonia Vaccine: Mar 31, 2016 Date of Influenza Vaccine: Dec 19, 2016 Seasonal Allergies Seasonal Allergies: Yes Past Medical History Surgeries: Yes (RIGHT EYELID BASAL CELL CANCER) Abdominal, Adenoidectomy, Eye Surgery, Prostatectomy, Tonsillectomy Respiratory: Yes (O2 DEPENDENT AT 3L/NC CONTINUOUSLY) Pneumonia, Chronic Bronchitis, COPD, Emphysema Currently Using CPAP: No Currently Using BIPAP: No Cardiac: Yes Chronic Edema/Swelling, High Cholesterol, Hypertension Neurological: Yes Dementia Reproductive Disorders: No Sexually Transmitted Disease: No HIV/AIDS: No Genitourinary: Yes (PROSTATE CANCER > 10 YEARS AGO) Prostate Problems, Kidney Stones Gastrointestinal: Yes Abdominal Hernia, Gastroesophageal Reflux, Polyps, Hiatal Hernia Musculoskeletal: Yes Arthritis Endocrine: Yes Diabetes, Non-Insulin dep HEENT: Yes Cataract Loss of Vision: Right Hearing Impairment: Denies Cancer: Yes (BASAL CELL CANCER RIGHT EYELID; PROSTATE SURGERY, NO CHEMO OR RADIATION) Prostate, Skin Did You Recieve Any Treatments: Yes What Type of Treatment Did You: Surgical Intervention Psychosocial: Yes Anxiety, Depression Integumentary: Yes (SKIN CANCER) Blood Disorders: No Adverse Reaction/Blood Tranf: No Family Medical History FH: breast cancer G8 SISTER Lung Disease Physical Exam Vital Signs Vital Signs - First Documented 08/12/17 16:00 Temp 98.8 Pulse 85 Resp 18 B/P (MAP) 144/77 (99) Pulse Ox 93 O2 Delivery Nasal Cannula O2 Flow Rate 3.00 Capillary Refill : Less Than 3 Seconds General Appearance: No Apparent Distress, WD/WN HEENT: PERRL/EOMI, Other (Chronic eyelid drooping and inflammation) Neck: Normal Inspection Respiratory: Lungs Clear, Normal Breath Sounds, No Accessory Muscle Use, No Respiratory Distress Cardiovascular: Regular Rate, Rhythm, No Edema, No Murmur Gastrointestinal: Normal Bowel Sounds, Non Tender, Soft Extremity: Normal Inspection, No Pedal Edema Neurologic/Psychiatric: Alert, Oriented x3, No Motor/Sensory Deficits, Normal Mood/Affect, office specialist II-XII Norm as Tested Skin: Other (Shallow ulcer about 1 cm in diameter near the left buttock with a localized inflammation and erythema extending out from the ulcer several centimeters. The erythematous region is tender to palpation. Moist intertrigo in the inguinal skin folds.) Lymphatic: No Adenopathy Progress/Results/Core Measures Suspected Sepsis Recent Fever Within 48 Hours: No Infection Criteria Present: None New/Unexplained Altered Menta: No Sepsis Screen: No Definite Risk SIRS Temperature:98.8 Pulse: 85 Respiratory Rate: 18 Laboratory Tests 08/12/17 16:34: White Blood Count 7.6 Blood Pressure 144 /77 Mean: 99 Laboratory Tests 08/12/17 16:34: Creatinine 0.95, Platelet Count 217, Total Bilirubin 0.3 Results/Orders Lab Results My Orders Vital Signs/I&O Capillary Refill : Less Than 3 Seconds Blood Pressure Mean: 99 Progress Note : Progress Note Labs were unremarkable. I'm concerned he may be developing cellulitis around his skin ulcer. I prescribed antibiotics. I recommended follow-up with Dr. Lopez. Since he also has some wax intertrigo in the inguinal folds, I also prescribed Diflucan. Zofran was prescribed for his nausea. Departure Impression Primary Impression: Cellulitis Qualified Codes: L03.317 - Cellulitis of buttock Additional Impressions: Nausea Intertrigo Disposition: 01 HOME, SELF-CARE Condition: Stable Departure-Patient Inst. Referrals: SALMA RAMIREZ DO (PCP) Primary Care Physician ASIM LINARES (Family) Primary Care Physician Patient Instructions: Cellulitis (Skin Infection), Adult (DC) Add. Discharge Instructions: You may continue topical treatment as prescribed by Dr. Lopez. Add to the antibiotics as prescribed an antifungal pill as prescribed. Return to care if you have worsening symptoms. You may use Zofran (ondansetron) as prescribed for nausea and vomiting if needed. Keep your follow-up appointments with Dr. Lopez. All discharge instructions reviewed with patient and/or family. Voiced understanding. Scripts Ondansetron (Zofran Odt) 4 Mg Tab.rapdis 4 MG SL Q4H PRN for NAUSEA/VOMITING-1ST LINE, #10 TAB Prov: CEASAR LUACS MD 08/12/17 Fluconazole (Diflucan) 150 Mg Tablet 150 MG PO UD, #2 TAB Take one now and repeat in 3 or 4 days Prov: CEASAR LUCAS MD 08/12/17 Cephalexin (Keflex) 500 Mg Capsule 500 MG PO QID, #28 CAP Prov: CEASAR LUCAS MD 08/12/17 Copy Copies To 1: DEBBIE LOPEZ MD Copies To 2: SALMA RAMIREZ JOSHUA T MD August 12, 2017 17:38
[2017-08-12] MEDS ORDERED: FLUC150T PO (17:41)
[2017-08-12] MEDS ORDERED: CEPH-507 PO (17:41)
[2017-08-12] MEDS ORDERED: ONDA4TAB8 SL (17:41)
[2017-08-12 17:49] VITALS: BP 132/84
[2017-09-17] MEDS ORDERED: TRAM50TA2 PO ×2 (11:09→11:39)
== END 2017-08-12 17:49 | disposition home or self-care (01) ==
LOC: EDUNIT# 15:46 → ER 15:48
DX: L03.317 Cellulitis of buttock (principal); L30.4 Erythema intertrigo; R11.0 Nausea; J43.9 Emphysema, unspecified; E78.00 Pure hypercholesterolemia, unspecified; I10 Essential (primary) hypertension; F03.90 Unspecified dementia, unspecified severity, without behavioral disturbance, psychotic disturbance, mood disturbance, and anxiety; K21.9 Gastro-esophageal reflux disease without esophagitis; E11.9 Type 2 diabetes mellitus without complications; F41.9 Anxiety disorder, unspecified; F32.9 Major depressive disorder, single episode, unspecified; Z85.840 Personal history of malignant neoplasm of eye; Z86.010 Personal history of colon polyps; Z87.19 Personal history of other diseases of the digestive system; Z85.46 Personal history of malignant neoplasm of prostate; Z87.442 Personal history of urinary calculi; Z79.82 Long term (current) use of aspirin; Z88.5 Allergy status to narcotic agent; Z79.51 Long term (current) use of inhaled steroids; Z79.84 Long term (current) use of oral hypoglycemic drugs; Z79.52 Long term (current) use of systemic steroids; Z87.891 Personal history of nicotine dependence; Z90.89 Acquired absence of other organs; Z87.01 Personal history of pneumonia (recurrent)
CPT/HCPCS: 36415; 80053; 81000; 85025; 86141

== ENCOUNTER 2017-08-24 16:36 | Emergency (ER) | payer MEDICARE, MEDICAID ==
[~2017-08-24] VITALS: Ht 180.3 cm; Wt 108.9 kg
[~2017-08-24 16:36] MED LIST changes: +CEPH-507 PO; +FLUC150T PO; +ONDA4TAB8 SL
--- NOTE | 2017-08-24 17:12 | ED GI ---
General Chief Complaint: Abdominal/GI Problems Stated Complaint: CONSTIPATION X3DAYS Nursing Triage Note: pt reports generalized abdominal pain/cramping and constipation. pt reports last bm was tuesday 08/22. Sepsis Screen: No Definite Risk Source of Information: Patient Exam Limitations: No Limitations History of Present Illness Date Seen by Provider: August 24, 2017 Time Seen by Provider: 17:10 Initial Comments To ER with constipation 3 days. Very small bowel movement this morning. Complains of rectal pain. No nausea or vomiting. Timing/Duration: 2-3 Days Severity/Quality: Moderate Location: Other (Rectal) Radiation: No Radiation Activities at Onset: None Associated Symptoms: Denies Symptoms Allergies and Home Medications Allergies Coded Allergies: aspirin (Unverified Allergy, Unknown, 05/20/14) codeine (Verified Allergy, Unknown, 04/07/06) hydrocodone (Unverified Allergy, Unknown, 10/16/15) Uncoded Allergies: SSRI (Allergy, Unknown, 05/20/14) TCA (Allergy, Unknown, 05/20/14) Home Medications Amlodipine Besylate 10 Mg Tablet, 10 MG PO HS, (Reported) Atorvastatin Calcium 40 Mg Tablet, 40 MG PO HS, (Reported) Azithromycin 250 Mg Tablet, 250 MG PO DAILY@1700 Prescribed by: DARIN PINEDO on 01/27/17 1128 Benazepril HCl 20 Mg Tablet, 20 MG PO HS, (Reported) Cefpodoxime Proxetil 200 Mg Tablet, 200 MG PO BID Prescribed by: DARIN PINEDO on 01/27/17 1131 Cephalexin 500 Mg Capsule, 500 MG PO QID Prescribed by: CEASAR CASTILLO on 08/12/17 174 Chlorphen/Dm/Acetaminophen/GG 1 Each Tb.cp.seq, 1-2 TAB PO Q6H PRN for DRAINAGE, (Reported) Clonazepam 1 Mg Tablet, 1 MG PO TID, (Reported) Doxazosin Mesylate 4 Mg Tablet, 4 MG PO DAILY, (Reported) Fluconazole 150 Mg Tablet, 150 MG PO UD Take one now and repeat in 3 or 4 days Prescribed by: CEASAR CASTILLO on 08/12/171740 Fluticasone Propionate 16 Gm [place].susp, 2 SPRAYS NS DAILY, (Reported) Glipizide 5 Mg Tablet, 5 MG PO BID, (Reported) Glycerin/Propylene Glycol 15 Ml Drops, 1 DROP OU QID PRN for DRY EYES, (Reported ) Guaifenesin/Dextromethorphan 5 Ml Syrup, 5 ML PO TID, (Reported) Ipratropium/Albuterol Sulfate 3 Ml Ampul.neb, 3 ML IH TID, (Reported) Levocetirizine Dihydrochloride 5 Mg Tablet, 5 MG PO HS, (Reported) Metformin HCl 500 Mg Tablet, 250 MG PO BID, (Reported) TAKES 1/2 OF A (500 MG) TABLET Mineral Oil/Petrolatum,White 3.5 Gm Oint...g., OU BID, (Reported) Mirabegron 25 Mg Tab.er.24h, 25 MG PO DAILY, (Reported) Montelukast Sodium 10 Mg Tablet, 10 MG PO HS, (Reported) Multivitamin 1 Each Tablet, 1 TAB PO DAILY, (Reported) Ondansetron 4 Mg Tab.rapdis, 4 MG PO Q4H PRN for NAUSEA/VOMITING-1ST LINE Prescribed by: BOZENA WERNER on 05/02/17 1840 Ondansetron 4 Mg Tab.rapdis, 4 MG SL Q4H PRN for NAUSEA/VOMITING-1ST LINE Prescribed by: CEASAR CASTILLO on 08/12/17 1741 Oseltamivir Phosphate 75 Mg Cap, 75 MG PO BID Prescribed by: BOZENA WERNER on 05/02/17 184 Pantoprazole Sodium 40 Mg Tablet.dr, 40 MG PO DAILY, (Reported) Pantoprazole Sodium 40 Mg Tablet.dr, 40 MG PO DAILY Prescribed by: CEASAR CASTILLO on 07/29/17 1630 Prednisone 20 Mg Tab, 20 MG PO DAILY Prescribed by: DOMINGA TOLEDO on 04/10/17 1221 Pregabalin 100 Mg Capsule, 100 MG PO TID, (Reported) Ranitidine HCl 150 Mg Tablet, 150 MG PO HS, (Reported) Rivastigmine 1 Each Patch.td24, 4.6 MG TD DAILY, (Reported) Sucralfate 1 Gm Tablet, 1 GM PO QID, (Reported) Tramadol HCl 50 Mg Tablet, 50 MG PO BID PRN for PAIN-MODERATE, (Reported) Triamcinolone Acet 15 Gm Cr, TP BID PRN for BED SORES, (Reported) Vilazodone Hydrochloride 10 Mg Tablet, 10 MG PO HS, (Reported) Patient Home Medication List Home Medication List Reviewed: Yes Review of Systems Constitutional: see HPI EENTM: No Symptoms Reported Respiratory: No Symptoms Reported Gastrointestinal: See HPI, Abdominal Pain, Constipated, Vomiting Genitourinary: No Symptoms Reported Musculoskeletal: no symptoms reported Skin: no symptoms reported Psychiatric/Neurological: No Symptoms Reported Endocrine: No Symptoms Reported Past Mluijmb-Egwksz-Qcnqsg Hx Patient Social History Alcohol Use: Denies Use Recreational Drug Use: No Smoking Status: Former Smoker Type Used: Cigarettes Former Smoker, Quit: Mar 31, 1966 2nd Hand Smoke Exposure: No Recent Foreign Travel: No Contact w/Someone Who Travel: No Recent Infectious Disease Expo: No Recent Hopitalizations: No Physical Abuse: No Sexual Abuse: No Mistreated: No Fear: No Immunizations Up To Date Tetanus Booster (TDap): Unknown Date of Pneumonia Vaccine: Mar 31, 2016 Date of Influenza Vaccine: Dec 19, 2016 Seasonal Allergies Seasonal Allergies: Yes Past Medical History Surgeries: Yes (RIGHT EYELID BASAL CELL CANCER, hernia repair) Abdominal, Adenoidectomy, Eye Surgery, Prostatectomy, Tonsillectomy Respiratory: Yes (O2 DEPENDENT AT 3L/NC CONTINUOUSLY) Pneumonia, Chronic Bronchitis, COPD, Emphysema Currently Using CPAP: No Currently Using BIPAP: No Cardiac: Yes Chronic Edema/Swelling, High Cholesterol, Hypertension Neurological: Yes Dementia Reproductive Disorders: No Sexually Transmitted Disease: No HIV/AIDS: No Genitourinary: Yes (PROSTATE CANCER > 10 YEARS AGO) Prostate Problems, Kidney Stones Gastrointestinal: Yes Abdominal Hernia, Gastroesophageal Reflux, Polyps, Hiatal Hernia Musculoskeletal: Yes Arthritis Endocrine: Yes Diabetes, Non-Insulin dep HEENT: Yes Cataract Loss of Vision: Right Hearing Impairment: Denies Cancer: Yes (BASAL CELL CANCER RIGHT EYELID; PROSTATE SURGERY, NO CHEMO OR RADIATION) Prostate, Skin Did You Recieve Any Treatments: Yes What Type of Treatment Did You: Surgical Intervention Psychosocial: Yes Anxiety, Depression Nursing Suicide Risk Score: 0 Integumentary: Yes (SKIN CANCER) Blood Disorders: No Adverse Reaction/Blood Tranf: No Family Medical History FH: breast cancer G8 SISTER Lung Disease Physical Exam Vital Signs Vital Signs - First Documented 08/24/17 16:55 Temp 97.4 Pulse 86 Resp 20 B/P (MAP) 138/71 (93) Pulse Ox 94 O2 Delivery Nasal Cannula O2 Flow Rate 3.00 Capillary Refill : Less Than 3 Seconds General Appearance: WD/WN, no apparent distress HEENT: PERRL/EOMI, normal ENT inspection Neck: non-tender, full range of motion Respiratory: no respiratory distress, no accessory muscle use Cardiovascular: regular rate, rhythm, no murmur Gastrointestinal: normal bowel sounds, non tender, soft; No tenderness Genital/Rectal: other (No fecal impaction on QUIQUE) Extremities: normal range of motion, non-tender Neurologic/Psychiatric: alert, normal mood/affect, oriented x 3 Skin: normal color, warm/dry Progress/Results/Core Measures Results/Orders My Orders Orders - BOZENA WERNER APRN Abdomen, Flat & Upright/Decub (08/24/17 17:06) Bisacodyl Tablet (Dulcolax Tablet) (08/24/17 17:15) Vital Signs/I&O 08/24/17 16:55 Temp 97.4 Pulse 86 Resp 20 B/P (MAP) 138/71 (93) Pulse Ox 94 O2 Delivery Nasal Cannula O2 Flow Rate 3.00 Blood Pressure Mean: 93 Departure Impression Primary Impression: Constipation Disposition: 01 HOME, SELF-CARE Condition: Stable Departure-Patient Inst. Decision time for Depature: 17:34 Referrals: DARIN PINEDO MD (PCP/Family) Primary Care Physician Patient Instructions: No Instuctions Given, Constipation, Adult (DC) Add. Discharge Instructions: 1. Return to ER for any concerns 2. Drink plenty of fluids and eat a high-fiber diet. If you need additional laxative take one cap full or 1 packet of MiraLAX twice daily for the next 2-3 days. BOZENA WERNER APRN August 24, 2017 17:12
[2017-08-24] MEDS ORDERED: BISACODYL 5 MG (DULCOLAX) TABLET PO ONE (17:15)
--- NOTE | 2017-08-24 17:30 | Diagnostic Imaging Report ---
INDICATION: Constipation. EXAMINATION: Supine and upright views of the abdomen were obtained. FINDINGS: There is some fecal material scattered throughout a nondilated colon, consistent with constipation. The small bowel is normal. There is a 5 mm calcification projected over the right kidney and a 6 mm calcification projected over the left kidney. No ureteral stones are evident. There is no mass evident. There is a hiatal hernia present. There are degenerative changes of the spine. IMPRESSION: Mild to moderate constipation. There is appearance of bilateral renal stones. Dictated by: Dictated on workstation # [id number]
[2017-08-24] MEDS ORDERED: MAGNESIUM CITRATE 300 ML BTL PO ONE (17:45)
[2017-08-24] MEDS ORDERED: BISACODYL 10 MG SUPP (DULCOLAX) ONE (17:50)
[2017-08-24 18:06] VITALS: BP 142/87
[2017-09-17] MEDS ORDERED: TRAM50TA2 PO ×2 (11:09→11:39)
== END 2017-08-24 18:05 | disposition home or self-care (01) ==
LOC: EDUNIT# 16:36 → ER 16:38
DX: K59.00 Constipation, unspecified (principal); F03.90 Unspecified dementia, unspecified severity, without behavioral disturbance, psychotic disturbance, mood disturbance, and anxiety; E78.00 Pure hypercholesterolemia, unspecified; R60.0 Localized edema; K21.9 Gastro-esophageal reflux disease without esophagitis; E11.9 Type 2 diabetes mellitus without complications; F41.9 Anxiety disorder, unspecified; F32.9 Major depressive disorder, single episode, unspecified; J43.9 Emphysema, unspecified; Z87.891 Personal history of nicotine dependence; Z85.828 Personal history of other malignant neoplasm of skin; Z85.46 Personal history of malignant neoplasm of prostate; Z90.89 Acquired absence of other organs; Z90.79 Acquired absence of other genital organ(s); Z87.442 Personal history of urinary calculi; Z79.52 Long term (current) use of systemic steroids; Z79.84 Long term (current) use of oral hypoglycemic drugs; Z88.6 Allergy status to analgesic agent; Z88.5 Allergy status to narcotic agent; Z88.8 Allergy status to other drugs, medicaments and biological substances
CPT/HCPCS: 74019

== ENCOUNTER 2017-09-11 23:48 | Emergency (ER) | payer MEDICARE, MEDICAID ==
[~2017-09-11] VITALS: Ht 182.9 cm; Wt 90.7 kg
--- OUTSIDE RECORDS SUMMARY | 2017-09-11 23:57 | XMS REPORT ---
Author Author ASIM LINARES [facility] Address [address] [place] [address] Care Team Providers Care R D Internship Name Role Phone VIJAY ASIM Unavailable PROBLEMS Type Condition ICD9-CM Code [id number] Code Onset Dates Condition Status SNOMED Code Problem Allergic rhinitis, unspecified allergic rhinitis trigger, unspecified rhinitis seasonality J30.9 Active 34036808 Problem Osteoarthritis of both knees, unspecified osteoarthritis type M17.0 Active 388828351 Problem Type 2 diabetes mellitus with diabetic neuropathy, without long-term current use of insulin E11.40 Active 28564559 Problem 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 Active 293644415 Problem Recurrent major depressive disorder, in partial 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 Active 12864754 Problem Chronic GERD K21.9 Active 711389021 Problem Chronic pain syndrome G89.4 Active 143385705 Problem Nocturnal hypoxemia G47.34 Active 708667800 Problem Gastroesophageal reflux disease without esophagitis K21.9 Active 871592282 Problem Elevated transaminase level R74.0 Active 234411872 Problem 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 Active 507658028 Problem Chronic obstructive pulmonary disease, unspecified COPD type J44.9 Active 83122226 Problem Mixed hyperlipidemia E78.2 Active 780215144 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 Active 0296130 Problem Essential hypertension I10 Active 30340521 Problem Hypoxia R09.02 Active 280642682 Problem Anxiety F41.9 Active 77207989 ALLERGIES No Information ENCOUNTERS Encounter Location Date Diagnosis [facility] [address] [address] Aug, [facility] [address] [address] 3270 July, Gastroesophageal reflux disease without esophagitis K21.9 [facility] [id number] [place] [address] 83934- 0952 July, [facility] [id number] [place] [address] 24566- 9330 July, [facility] [id number] [place] [address] 01839- 6554 July, [facility] [id number] [place] [address] 59845- 3942 July, Essential hypertension I10 and Chronic pain syndrome G89.4 [facility] [id number] [place] [address] 93259- 2617 July, Gastroesophageal reflux disease without esophagitis K21.9 [facility] [address] 6[address]29- 4457 July, 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 [facility] [address] 01866- 5081 July, Chronic obstructive pulmonary disease, unspecified COPD type J44.9 ; Nocturnal cough R05 ; 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 and Recurrent major depressive disorder, in partial 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 [facility] [id number] [place] [address] 55969- 4981 July, [facility] [id number] [place] [address] 27071- 0172 July, Type 2 diabetes mellitus with diabetic neuropathy, without long-term current use of insulin E11.40 [facility] [id number] [place] [address] 13827- 9339 July, Nocturnal hypoxemia G47.34 ; Chronic obstructive pulmonary disease, unspecified COPD type J44.9 and Nocturnal cough R05 [facility] [id number] [place] [address] 88733- 7561 July, [facility] [id number] [place] [address] 07816- 9605 July, [facility] [id number] [place] [address] 19983- 9127 July, [facility] [id number] [place] [address] 10086- 8110 Jun, Chronic pain syndrome G89.4 [facility] [id number] [place] [address] 92973- 7761 Jun, [facility] [id number] [place] [address] 37596- 5303 Jun, [facility] [id number] [place] [address] 28891- 0403 Jun, 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 [facility] [address] 83042- 4465 Jun, [facility] [id number] [place] [address] 60854- 9130 Jun, Gastroesophageal reflux disease without esophagitis K21.9 [facility] [id number] [place] [address] 34884- 4247 Jun, Allergic rhinitis, unspecified allergic rhinitis trigger, unspecified rhinitis seasonality J30.9 [facility] [id number] [place] [address] 28869- 8570 Jun, Chronic pain syndrome G89.4 [facility] [place] [id number] [place] [address] 31709- 7939 May, [facility] [id number] [place] [address] 12979- 2788 May, COPD with acute exacerbation J44.1 [facility] [id number] [place] [address] 45325- 8618 14 May, 2017 Type 2 diabetes mellitus with diabetic neuropathy, without long-term current use of insulin E11.40 ; COPD with acute exacerbation J44.1 ; Hypoxia R09.02 ; Chronic pain syndrome G89.4 ; Yeast dermatitis B37.2 ; 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 and 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 [facility] [address] [address] 2546 May, [facility] [id number] [place] [address] 79203 2546 May, Chronic pain syndrome G89.4 [facility] [address] [address] 2546 May, [facility] [id number] [place] [address] 66262 2546 May, [facility] [id number] [place] [address] 57333 2546 May, Mixed hyperlipidemia E78.2 [facility] [id number] [place] [address] 44125 2546 May, Chronic pain syndrome G89.4 [facility] [id number] [place] [address] 96506 2546 May, Anxiety F41.9 and Chronic pain syndrome G89.4 [facility] [address] [address] 2546 Mar, [facility] [id number] [place] [address] 73310 2546 Mar, [facility] [address] [address] 2546 Mar, [facility] [address] [address] 2546 Mar, [facility] [address] [address] 2546 Mar, [facility] [id number] [place] [address] 72819 2546 Mar, Anxiety F41.9 and Chronic pain syndrome G89.4 [facility] [address] [address] 2546 Mar, Medicare annual wellness visit, initial [...] L57.0 [facility] [address] 80999- 2152 Mar, [facility] [address] 23601- 8457 Mar, Chronic pain syndrome G89.4 [facility] [address] 94644- 0014 Feb, [facility] [id number] [place] [address] 23736- 8515 Feb, Chronic pain syndrome G89.4 [facility] [id number] [place] [address] 54646- 3477 Feb, [facility] [id number] [place] [address] 02812- 3363 Feb, [facility] [address] 51228- 7011 Feb, Anxiety F41.9 [facility] [id number] [place] [address] 36965- 5466 Feb, [facility] [address] 26213481- 7614 Feb, Chronic pain syndrome G89.4 [facility] [id number] [place] [address] 22949- 2096 Jan, Essential hypertension I10 [facility] [id number] [place] [address] 71201- 4309 Jan, Chronic pain syndrome G89.4 [facility] [address] 09212- 4003 Jan, [facility] [facility] [id number] [place] [address] 36747- 0827 Jan, Anxiety F41.9 [facility] [address] 89875- 4459 Jan, Encounter for immunization Z23 and Community acquired pneumonia, unspecified laterality J18.9 [facility] [address] 167186- 0784 Jan, Type 2 diabetes mellitus with diabetic neuropathy, without long-term current use of insulin E11.40 [facility] [facility] [address] 14965- 0129 Dec, Anxiety F41.9 and Chronic pain syndrome G89.4 [facility] [id number] [place] [address] 00226- 0615 Dec, Chronic pain syndrome G89.4 and Essential hypertension I10 [facility] [id number] [place] [address] 14106- 4126 Dec, [place] [id number] [place] [address] 45307- 8534 Dec, Anxiety F41.9 [facility] [id number] [place] [address] 66217- 4851 Dec, [facility] [id number] [place] [address] 60917- 7438 Dec, Type 2 diabetes mellitus with diabetic neuropathy, without long-term current use of insulin E11.40 ; Lactic acidosis E87.2 ; Chronic obstructive pulmonary disease, unspecified COPD type J44.9 and Encounter for immunization Z23 [place] [address] 62090- 8313 Dec, Chronic pain syndrome G89.4 [facility] [id number] [address]- 0620 Nov, [facility] [id number] [place] [address] 03103 2549 Nov, Chronic pain syndrome G89.4 [facility] [address] [address]- 1491 Nov, [facility] [address] [facility] [id number] [place] [address] 42416- 1557 Nov, [facility] [id number] [place] [address] 91535- 5531 15 Nov, 2016 Anxiety F41.9 [facility] [id number] [place] [address] 11591- 2417 11 Nov, 2016 Anxiety F41.9 [facility] [id number] [place] [address] 28459- 3324 08 Nov, 2016 [facility] [id number] [place] [address] 96555- 2983 05 Nov, 2016 [facility] [id number] [place] [address] 49941- 5992 Nov, [facility] [id number] [address]- 8294 Oct, [facility] [id number] [address]- 8353 Oct, [facility] [address] [address]- 3993 Oct, [facility] [id number] [place] [address] 74091- 0766 Oct, Essential hypertension I10 and Chronic pain syndrome G89.4 [facility] [address] [address]- 5134 Oct, Anxiety F41.9 [facility] [id number] [address]- 8677 Oct, [facility] [id number] [place] [address] 68622- 6836 Oct, Chronic pain syndrome G89.4 [facility] [id number] [place] [address] 97984 -3873 Oct, Sore throat J02.9 and Acute nasopharyngitis (common cold) J00 [facility] [id number] [place] [address] 76734- 9854 Sep, [facility] [id number] [place] [address] 07074- 4269 Sep, COPD exacerbation J44.1 [facility] [id number] [place] [address] 62905- 9854 Sep, Chronic pain syndrome G89.4 [facility] [id number] [place] [address] 08806- 6496 Sep, Essential hypertension I10 [facility] [id number] [place] [address] 10696- 4282 Sep, [facility] [id number] [place] [address] 50082- 8153 Sep, [facility] [id number] [place] [address] 03501- 2954 Sep, Anxiety F41.9 [facility] [id number] [place] [address] 30449- 8551 Sep, Chronic pain syndrome G89.4 [facility] [id number] [place] [address] 47375- 6073 Sep, [facility] [id number] [place] [address] 51079- 8676 Aug, Acute seasonal allergic rhinitis, unspecified trigger J30.2 ; Hiatal hernia K44.9 and Chronic pain syndrome G89.4 [facility] [address] [address]- 1454 Aug, [facility] [id number] [place] [address] 75100- 4830 Aug, [facility] [id number] [place] [address] 72115- 2275 Aug, Chronic obstructive pulmonary disease, unspecified COPD type J44.9 [facility] [id number] [place] [address] 30526- 4517 14 Aug, 2016 Anxiety F41.9 [facility] [id number] [place] [address] 45521- 3177 08 Aug, 2016 Chronic pain syndrome G89.4 [facility] [id number] [place] [address] 50023- 2810 07 Aug, 2016 Hiatal hernia K44.9 and Actinic keratosis L57.0 [facility] [id number] [place] [address] 66498- 3091 Aug, [facility] [id number] [place] [address] 08663- 5809 Aug, Anxiety F41.9 [facility] [id number] [place] [address] 87291- 7638 July, [facility] [id number] [place] [address] 05510- 0252 July, Hiatal hernia K44.9 [facility] [id number] [place] [address] 57416- 9815 July, [facility] [id number] [place] [address] 19705- 7942 July, Anxiety F41.9 and Chronic pain syndrome G89.4 [facility] [id number] [place] [address] 56585- 7524 July, [facility] [id number] [place] [address] 92364- 2445 Jun, Chronic pain syndrome G89.4 [facility] [id number] [place] [address] 43962- 4234 Jun, Chronic pain syndrome G89.4 [facility] [id number] [place] [address] 92027- 8262 Jun, [facility] [id number] [place] [address] 89539- 3408 Jun, Anxiety F41.9 [facility] [id number] [place] [address] 61048- 8623 Jun, Allergic rhinitis, unspecified allergic rhinitis trigger, unspecified rhinitis seasonality J30.9 [place] [id number] [place] [address] 74156- 1456 Jun, [place] [id number] [place] [address] 61518- 7658 May, Chronic pain syndrome G89.4 [facility] [id number] [place] [address] 02810- 3513 May, [place] [id number] [place] [address] 42075- 8980 May, [facility] [id number] [place] [address] 33313- 0866 May, Anxiety F41.9 [facility] [id number] [place] [address] 56904- 5519 May, Type 2 diabetes mellitus with diabetic [...] G89.4 [facility] [id number] [place] [address] 09535- 3108 May, Essential hypertension I10 ; Type 2 diabetes mellitus with diabetic neuropathy, without long-term current use of insulin E11.40 ; Mixed hyperlipidemia E78.2 ; Chronic obstructive pulmonary disease, unspecified COPD type J44.9 and Chronic GERD K21.9 [place] [id number] [place] [address] 17448- 0345 May, [facility] [id number] [place] [address] 27343- 1197 May, [facility] [id number] [place] [address] 25914- 4923 May, Type 2 diabetes mellitus with diabetic neuropathy, without long-term current use of insulin E11.40 [facility] [id number] [place] [address] 58833- 3820 May, Dementia without behavioral disturbance, unspecified dementia type F03.90 [facility] [id number] [place] [address] 50229- 2333 May, Type 2 diabetes mellitus with diabetic neuropathy, without long-term current use of insulin E11.40 ; Essential hypertension I10 ; Mixed hyperlipidemia E78.2 ; Chronic obstructive pulmonary disease, unspecified COPD type J44.9 ; Chronic GERD K21.9 and Osteoarthritis of both knees, unspecified osteoarthritis type M17.0 [facility] [id number] [place] [address] 69183- 5068 May, [facility] [facility] [id number] [place] [address] 90636- 3984 May, [facility] [facility] [id number] [place] [address] 76831- 5714 May, Anxiety F41.9 and Unspecified symptoms and signs involving cognitive functions and awareness R41.9 [place] [id number] [place] [address] 35753- 0734 May, [place] [address] 44957- 4502 14 May, 2016 Type 2 diabetes mellitus with diabetic neuropathy, without long-term current use of insulin E11.40 ; Anxiety F41.9 and Chronic obstructive pulmonary disease, unspecified COPD type J44.9 [facility] [facility] [id number] [place] [address] 75304- 1349 May, [facility] [id number] [place] [address] 84647- 9198 May, [place] [address] 19448- 4743 May, [place] [address] 57917- 9393 May, Chronic obstructive pulmonary disease, unspecified COPD type J44.9 [place] [address] 81493- 4058 Mar, [place] [address] 69426- 9685 Mar, Arthritis of both knees M19.90 [place] [address] 95115- 2940 Mar, Type 2 diabetes mellitus with diabetic neuropathy, without long-term current use of insulin E11.40 [facility] [id number] [place] [address] 48106- 4105 Mar, [place] [address] 15773- 1026 Mar, Neck pain M54.2 and Weakness generalized R53.1 [place] [address] 67978- 3037 Mar, [place] [address] 15642- 9130 Mar, Cervicalgia M54.2 and Impacted cerumen of both ears H61.23 [place] [address] 47333- 4631 Mar, [facility] [address] [address]- 9750 Mar, Type 2 diabetes mellitus with diabetic neuropathy, without long-term current use of insulin E11.40 [facility] [address] [address]- 6600 Feb, [facility] [id number] [place] [address]- [address] Feb, Hypoxia R09.02 [facility] [id number] [place] [address]32- [phone] Feb, [facility] [id number] [place] [address]41- [phone] Feb, [facility] [id number] [place] [address]397- 1341 Feb, [facility] [id number] [place] [phone]- 2507 Feb, Type 2 diabetes mellitus with diabetic neuropathy, without long-term current use of insulin E11.40 [facility] [id number] [place] [address]32- 7300 Feb, Osteoarthritis of both knees, unspecified osteoarthritis type M17.0 [facility] [id number] [address] Feb, [facility] [id number] [address] Feb, [facility] [id number] [address] Feb, [facility] [id number] [place] [address]09- 8468 Jan, [facility] [id number] [address] Jan, [facility] [id number] [place] [address] 10561- 4619 Jan, [facility] [id number] [place] [address] 23595- 5724 Jan, [facility] [id number] [place] [address] 41985- 7650 Jan, Tinea pedis of both feet B35.3 [place] [facility] [address] [address]- [address] Jan, Type 2 diabetes mellitus with diabetic [...] seasonality J30.9 and Encounter for immunization Z23 [facility] [id number] [place] [address] 18919- 6609 Jan, [facility] [id number] [place] [address] 07066- 0839 Jan, [facility] [id number] [place] [address] 36716- 3509 Dec, [facility] [id number] [place] [address] 08085- 6673 Dec, [facility] [id number] [place] [id number] -[address]93 Dec, Unspecified asthma with (acute) exacerbation J45.901 and Chronic obstructive pulmonary disease with (acute) exacerbation J44.[address] [place] [id number] [place] [address] Dec, Arthritis of both knees M19.90 and Acute medial meniscus tear, right, initial encounter S83.241A [place] [id number] [address] Dec, [facility] [id number] [place] [address] Dec, [facility] [id number] [address] 14 Dec, 2015 [facility] [id number] [place] [address]- [address] Dec, [facility] [id number] [address] Dec, History of pneumonia Z87.01 [facility] [id number] [place] [address]- 56[address] 10 Dec, 2015 [facility] [id number] [place] [address]- [address] Dec, [facility] [id number] [place] [address]- [address] Dec, [facility] [id number] [address] Dec, [facility] [id number] [address] Dec, [facility] [id number] [address] Dec, [facility] [id number] [address] 30 Nov, 2015 Cough R05 and Pneumonia due to infectious organism, unspecified laterality, unspecified part of lung J18.9 [facility] [id number] [address] Nov, [facility] [id number] [address] Nov, Type 2 diabetes mellitus with diabetic [...] J30.9 [facility] [address] [facility] [id number] [place] [address] 12 Nov, 2015 IMMUNIZATIONS No Known Immunizations [...] obstructive pulmonary disease (COPD)-wears 2L O2 per [place], uses [employer] for home O2 Medical History [...] History TURP 2003 Surgical [facility]2016 Hospitalization History TIA, [facility] 2014 Hospitalization History COPD exacerbation--[facility] 12/27/2015 [facility] - [facility] 02/2016 [facility] History [facility] pneumonia 11/2016 Hospitalization History COPD exacerbation - Dr Hartley Attending 12/2016 Hospitalization History Cough- [facility] 04/10/2017 Hospitalization History [facility] - Possible Pneumonia 06/2017
--- OUTSIDE RECORDS SUMMARY | 2017-09-12 00:01 | XMS REPORT ---
Author Author JAI LINARESNYA [facility] Address [address] [place] [address] Care Team Providers Care Extrusion Press Supervisor Name Role Phone JM LINARESWNYA Unavailable PROBLEMS Type Condition ICD9-CM Code PMZ35-EB Code Onset Dates Condition Status SNOMED Code Problem Essential hypertension I10 Active 47925889 Problem Allergic rhinitis, unspecified allergic rhinitis trigger, unspecified rhinitis seasonality J30.9 Active 87237223 Problem Anxiety F41.9 Active 69655549 Problem Nocturnal hypoxemia G47.34 Active 544194875 Problem Gastroesophageal reflux disease without esophagitis K21.9 Active 480162822 Problem Osteoarthritis of both knees, unspecified osteoarthritis type M17.0 Active 746518640 Problem Type 2 diabetes mellitus with diabetic neuropathy, without long-term current use of insulin E11.40 Active 67799292 Problem Chronic GERD K21.9 Active 811726992 Problem Chronic pain syndrome G89.4 Active 182082706 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 Active 0963308 Problem Hypoxia R09.02 Active 381048490 Problem Chronic obstructive pulmonary disease, unspecified COPD type J44.9 Active 36801629 Problem 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 Active 349964327 Problem Mixed hyperlipidemia E78.2 Active 750750218 ALLERGIES No Information ENCOUNTERS Encounter Location Date Diagnosis [facility] [id number], [place] [address] Aug, [facility] [id number] [place] [address] 67904- 7656 July, [facility] [id number] [place] [address] 38132- 8780 July, [facility] [address], [place] [address] July, Type 2 diabetes mellitus with diabetic neuropathy, without long-term current use of insulin E11.40 [facility] [id number] [place] [address] 23669- 9067 July, Nocturnal hypoxemia G47.34 ; Chronic obstructive pulmonary disease, unspecified COPD type J44.9 and Nocturnal cough R05 [facility] [address] 8[address]18- 4750 July, [facility] [address] 62672- 8605 July, [facility] [address] 86713- 8631 July, [facility] [address] 41558- 3949 Jun, Chronic pain syndrome G89.4 [facility] [address] 86416- 5832 Jun, [facility] [address] 32700- 4046 Jun, [facility] [address] 21284- 7333 Jun, 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 [facility] [address] 58059- 8222 Jun, [facility] [address] 99786- 1032 Jun, Gastroesophageal reflux disease without esophagitis K21.9 [facility] [id number] [place] [address] 64307- 9282 Jun, Allergic rhinitis, unspecified allergic rhinitis trigger, unspecified rhinitis seasonality J30.9 [facility] [id number] [place] [address] 55955- 0790 Jun, Chronic pain syndrome G89.4 [facility] [address] 57056- 9141 May, [facility] [id number] [place] [address] 33097- 6821 May, COPD with acute exacerbation J44.1 [facility] [address] [id number]- 8203 14 May, 2017 Type 2 diabetes mellitus with diabetic neuropathy, without long-term current use of insulin E11.40 ; COPD with acute exacerbation J44.1 ; Hypoxia R09.02 ; Chronic pain syndrome G89.4 ; Yeast dermatitis B37.2 ; 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 and 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 [address] 10800- 3386 May, [place] [facility] [address] 20984- 0860 May, Chronic pain syndrome G89.4 [facility] [address] 05386- 7022 May, [facility] [address] 60773- 5332 May, [facility] [address] 86068- 5896 May, Mixed hyperlipidemia E78.2 [facility] [address] 48355- 5598 May, Chronic pain syndrome G89.4 [facility] [id number] [place] [address] 12713- 6584 May, Anxiety F41.9 and Chronic pain syndrome G89.4 [facility] [address] 99023- 4203 Mar, [facility] [address] 19611- 7902 Mar, [facility] [address] 35637- 4846 Mar, [facility] [id number] [place] [address] 02500- 6957 Mar, [facility] [id number] [place] [address] 82741- 7461 Mar, [place] [facility] [id number] [place] [address] 28464- 1255 Mar, Anxiety F41.9 and Chronic pain syndrome G89.4 [facility] [id number] [place] [address] 34376- 4830 Mar, Medicare annual wellness visit, initial Z00.00 [...] Hiatal hernia K44.9 and Actinic keratosis L57.0 [address] [address] [place] [address] 48654- 4862 Mar, [place] [address] [place] [address] 71268- 1557 Mar, Chronic pain syndrome G89.4 [facility] [id number] [place] [address] 44254- 9885 Feb, [place] [facility] [id number] [place] [address] 33937- 5843 Feb, Chronic pain syndrome G89.4 [facility] [id number] [place] [address] 04126- 9867 Feb, [facility] [id number] [place] [address] 14832- 5980 Feb, [facility] [id number] [place] [address] 51751- 3846 Feb, Anxiety F41.9 [facility] [id number] [place] [address] 44413- 7254 Feb, [facility] [id number] [place] [address] 74121- 0482 Feb, Chronic pain syndrome G89.4 [facility] [address] 28364- 8691 Jan, Essential hypertension I10 [address] [address] 46248- 7498 Jan, Chronic pain syndrome G89.4 [facility] [address] 92788- 4739 Jan, [facility] [address] 14329- 7259 Jan, Anxiety F41.9 [facility] [address] 29957- 5339 Jan, Encounter for immunization Z23 and Community acquired pneumonia, unspecified laterality J18.9 [facility] [id number] [place] [address] 06312- 5232 Jan, Type 2 diabetes mellitus with diabetic neuropathy, without long-term current use of insulin E11.40 [facility] [id number] [place] [address] 20983- 8260 Dec, Anxiety F41.9 and Chronic pain syndrome G89.4 [facility] [id number] [place] [address] 20479- 0869 Dec, Chronic pain syndrome G89.4 and Essential hypertension I10 [facility] [id number] [place] [address] 43365- 9347 16 Dec, 2016 [facility] [address] 41482- 9172 Dec, Anxiety F41.9 [facility] [id number] [place] [address] 96710- 6264 Dec, [facility] [id number] [place] [address] 26745- 6919 Dec, Type 2 diabetes mellitus with diabetic neuropathy, without long-term current use of insulin E11.40 ; Lactic acidosis E87.2 ; Chronic obstructive pulmonary disease, unspecified COPD type J44.9 and Encounter for immunization Z23 [facility] [id number] [place] [address] 68500- 4008 Dec, Chronic pain syndrome G89.4 [facility] [address] 80837- 5120 Nov, [facility] [address] 40523- 1517 Nov, Chronic pain syndrome G89.4 [facility] [id number] [place] [address] 37011 2542 Nov, [facility] [id number] [place] [address] 44395 2548 Nov, [facility] [id number] [place] [address] 43762 2548 Nov, Anxiety F41.9 [facility] [id number] [place] [address] 95320 2545 Nov, Anxiety F41.9 [facility] [id number] [place] [address] 53361 2543 Nov, [facility] [address] 88228 2549 05 Nov, 2016 [facility] [id number] [place] [address] 12721- 2546 Nov, [facility] [id number] [place] [address] 93699- 7986 Oct, [facility] [address] [place] [address] 42981- 0934 Oct, [facility] [id number] [place] [address] 52622- 2231 Oct, [facility] [id number] [place] [address] 37095- 1191 Oct, Essential hypertension I10 and Chronic pain syndrome G89.4 [facility] [id number] [place] [address] 99421- 7152 Oct, Anxiety F41.9 [facility] [id number] [place] [address] 35853- 6925 Oct, [facility] [id number] [place] [address] 13450- 0249 Oct, Chronic pain syndrome G89.4 [facility] [id number] [place] [address] 68237 -4193 Oct, Sore throat J02.9 and Acute nasopharyngitis (common cold) J00 [facility] [id number] [place] [address] 71222- 2941 Sep, [facility] [id number] [place] [address] 11981- 8229 Sep, COPD exacerbation J44.1 [facility] [id number] [place] [address] 80078- 2007 Sep, Chronic pain syndrome G89.4 [facility] [id number] [place] [address] 11086- 3011 Sep, Essential hypertension I10 [facility] [id number] [place] [address] 32356- 2027 Sep, [facility] [id number] [place] [address] 66082- 3903 Sep, [facility] [id number] [place] [address] 91176- 8699 Sep, Anxiety F41.9 [facility] [id number] [place] [address] 72560- 4962 Sep, Chronic pain syndrome G89.4 [facility] [id number] [place] [address] 67022- 3829 Sep, [facility] [id number] [place] [address] 61132- 2065 Aug, Acute seasonal allergic rhinitis, unspecified trigger J30.2 ; Hiatal hernia K44.9 and Chronic pain syndrome G89.4 [facility] [id number] [place] [address] 20787- 6899 Aug, [facility] [id number] [place] [address] 65649- 2938 Aug, [facility] [id number] [place] [address] 08048- 4378 Aug, Chronic obstructive pulmonary disease, unspecified COPD type J44.9 [facility] [id number] [place] [address] 50902- 8131 Aug, Anxiety F41.9 [facility] [id number] [place] [address] 75314- 4835 Aug, Chronic pain syndrome G89.4 [facility] [address] [place] [address] 61073- 9244 Aug, Hiatal hernia K44.9 and Actinic keratosis L57.0 [facility] [id number] [place] [address] 28087- 2288 Aug, [facility] [id number] [place] [address] 74015- 6170 Aug, Anxiety F41.9 [facility] [id number] [place] [address] 47208- 0603 July, [facility] [id number] [place] [address] 00147- 6335 July, Hiatal hernia K44.9 [facility] [id number] [place] [address] 81989- 7780 July, [facility] [id number] [place] [address] 69400- 4005 July, Anxiety F41.9 and Chronic pain syndrome G89.4 [facility] [id number] [place] [address] 90450- 4792 July, [facility] [id number] [place] [address] 72781- 6318 Jun, Chronic pain syndrome G89.4 [facility] [id number] [place] [address] 95316- 7260 Jun, Chronic pain syndrome G89.4 [facility] [id number] [place] [address] 25566- 4256 Jun, [facility] [id number] [place] [address] 35033- 7979 Jun, Anxiety F41.9 [facility] [id number] [place] [address] 65479- 2310 Jun, Allergic rhinitis, unspecified allergic rhinitis trigger, unspecified rhinitis seasonality J30.9 [facility] [id number] [place] [address] 70511- 0635 Jun, [facility] [id number] [place] [address] 38144- 7243 May, Chronic pain syndrome G89.4 [facility] [address] [place] [address] 19779- 7468 May, [facility] [id number] [place] [address] 67833- 0513 May, [facility] [address] [place] [address] 27587- 0111 May, Anxiety F41.9 [place] [address], [place] [address]- 0264 May, Type 2 diabetes mellitus with diabetic [...] Anxiety F41.9 and Chronic pain syndrome G89.4 [facility] [id number] [place] [address] 41382- 8478 May, Essential hypertension I10 ; Type 2 diabetes mellitus with diabetic neuropathy, without long-term current use of insulin E11.40 ; Mixed hyperlipidemia E78.2 ; Chronic obstructive pulmonary disease, unspecified COPD type J44.9 and Chronic GERD K21.9 [place] [facility] [id number] [place] [address] 37493- 3928 May, [facility] [id number] [place] [address] 90839- 1366 May, [place] [id number] [place] [address] 25753- 0831 May, Type 2 diabetes mellitus with diabetic neuropathy, without long-term current use of insulin E11.40 [facility] [id number] [place] [address] 81434- 5484 May, Dementia without behavioral disturbance, unspecified dementia type F03.90 [facility] [id number] [place] [address] 08122- 3320 May, Type 2 diabetes mellitus with diabetic neuropathy, without long-term current use of insulin E11.40 ; Essential hypertension I10 ; Mixed hyperlipidemia E78.2 ; Chronic obstructive pulmonary disease, unspecified COPD type J44.9 ; Chronic GERD K21.9 and Osteoarthritis of both knees, unspecified osteoarthritis type M17.0 [place] [facility] [id number] [place] [address] 07777- 7504 May, [facility] [id number] [place] [address] 07181- 3079 May, [place] [facility] [id number] [place] [address] 68514- 4151 May, Anxiety F41.9 and Unspecified symptoms and signs involving cognitive functions and awareness R41.9 [place] [facility] [id number] [place] [address] 40355- 6535 May, [place] [facility] [id number] [place] [address] 87959- 2616 May, Type 2 diabetes mellitus with diabetic neuropathy, without long-term current use of insulin E11.40 ; Anxiety F41.9 and Chronic obstructive pulmonary disease, unspecified COPD type J44.9 [place] [facility] [id number] [place] [address] 23174- 6377 May, [place] [facility] [id number] [place] [address] 32425- 9672 May, [place] [id number] [place] [address] 45528- 4480 May, [place] [facility] [id number] [place] [address] 11413- 1979 May, Chronic obstructive pulmonary disease, unspecified COPD type J44.9 [place] [facility] [id number] [place] [address] 59524- 5665 Mar, [place] [facility] [id number] [place] [address] 34018- 0570 Mar, Arthritis of both knees M19.90 [facility] [id number] [place] [address] 62770- 2311 Mar, Type 2 diabetes mellitus with diabetic neuropathy, without long-term current use of insulin E11.40 [facility] [id number] [place] [address] 00895- 7312 Mar, [facility] [id number] [place] [address] 53279- 8733 Mar, Neck pain M54.2 and Weakness generalized R53.1 [facility] [facility] [id number] [place] [address] 04417- 2471 Mar, [place] [address] 77363- 4432 Mar, Cervicalgia M54.2 and Impacted cerumen of both ears H61.23 [facility] [id number] [place] [address] 70478- 8068 Mar, [place] [facility] [address] 93005- 0209 Mar, Type 2 diabetes mellitus with diabetic neuropathy, without long-term current use of insulin E11.40 [place] [facility] [address] 66256- 2998 Feb, [facility] [id number] [place] [address] 35651- 0759 Feb, Hypoxia R09.02 [place] [facility] [address] 52510- 3374 Feb, [place] [id number] [place] [address] 10728- 0459 Feb, [place] [facility] [id number] [place] [address] 91343- 0311 Feb, [facility] [id number] [place] [address] 87159- 5708 Feb, Type 2 diabetes mellitus with diabetic neuropathy, without long-term current use of insulin E11.40 [facility] [id number] [place] [address] 76275- 3143 15 Feb, 2016 Osteoarthritis of both knees, unspecified osteoarthritis type M17.0 [facility] [id number] [place] [address] 89080- 3222 Feb, [facility] [address] [place] [address] 52919- 1886 Feb, [facility] [id number] [place] [address] 13930- 0936 Feb, [facility] [id number] [place] [address] 67582- 6829 Jan, [facility] [address] 92833- 0537 Jan, [facility] [id number] [place] [address] 73689- 7324 Jan, [facility] [id number] [place] [address] 69642- 4765 Jan, [facility] [id number] [place] [address] 52710- 9933 Jan, Tinea pedis of both feet B35.3 [facility] [id number] [place] [address] 36696- 7925 Jan, Type 2 diabetes mellitus with diabetic [...] seasonality J30.9 and Encounter for immunization Z23 [facility] [id number] [place] [address] 32459- 0399 Jan, [facility] [id number] [place] [address] 15226- 32[address] Jan, [facility] [id number] [place] [address] 02976- 3699 Dec, [facility] [address], [place] [address]- 5793 Dec, [facility] [address] [place] [address] 01427 -6706 Dec, Unspecified asthma with (acute) exacerbation J45.901 and Chronic obstructive pulmonary disease with (acute) exacerbation J44.1 [facility] [id number] [place] [address] 92308- 3187 Dec, Arthritis of both knees M19.90 and Acute medial meniscus tear, right, initial encounter S83.241A [facility] [id number] [place] [address] 06461- 5546 Dec, [facility] [id number] [place] [address] 03344- 46[address] Dec, [facility] [id number] [place] [address] 48464- 2555 Dec, [facility] [address] [place] [address] 86219- 1150 Dec, [facility] [id number] [place] [address] 53341- 6366 Dec, History of pneumonia Z87.01 [facility] [address], [place] [address]- 2808 Dec, [facility] [address] [place] [address]- 1138 Dec, [facility] [address], [place] [address]- 1447 Dec, [facility] [id number] [place] [address] 39559- 8546 Dec, [facility] [address], [place] [address]- 6282 Dec, [facility] [id number] [place] [address] 19242- 6406 Dec, [facility] [id number], [place] [address]- 5138 30 Nov, 2015 Cough R05 and Pneumonia due to infectious organism, unspecified laterality, unspecified part of lung J18.9 [facility] [id number], [place] [address]- 3284 Nov, [facility] [address] [place] [address] 82038- 0364 Nov, Type 2 diabetes mellitus with diabetic [...] allergic rhinitis trigger, unspecified rhinitis seasonality J30.9 [facility] [id number], [place] [address]- 6717 Nov, IMMUNIZATIONS No Known Immunizations SOCIAL HISTORY Never Assessed REASON FOR VISIT Test strips/lancets Rx PLAN OF CARE VITAL SIGNS MEDICATIONS Medication Instructions Dosage Frequency Start Date End Date Duration Status Test strips test blood sugar Jan, Mar, 30 days Active Lancets - test blood sugar Jan, 30 days Active RESULTS No Results PROCEDURES No Known procedures INSTRUCTIONS MEDICATIONS ADMINISTERED No Known Medications MEDICAL (GENERAL) HISTORY Type Description Date Medical History hypertension Medical History chronic obstructive pulmonary disease (COPD)-wears 2L O2 per CT, uses Danish for home O2 Medical History Arthritis-knees and [...] History cataracts 2009 Surgical History wrist fracture 2004 Surgical History TURP 2003 Surgical History EGD Colonoscopy [facility] 06/06/2016 Hospitalization History TIA, [facility] 2014 Hospitalization History COPD exacerbation--[facility] 12/27/2015 [facility]ization History [facility] - fall 02/2016 Hospitalization History [facility] pneumonia 11/2016 Hospitalization History COPD exacerbation - Dr Hartley Attending 12/2016 Hospitalization History Cough- [facility] 04/10/2017 Hospitalization History [facility] - Possible Pneumonia 06/2017
--- OUTSIDE RECORDS SUMMARY | 2017-09-12 00:01 | XMS REPORT ---
Author Author ASIM LINARES [facility] Address [address] [place] [address] Care Team Providers Care Social Media Marketing Specialist Name Role Phone VIJAY ASIM Unavailable PROBLEMS Type Condition ICD9-CM Code ADN88-VZ Code Onset Dates Condition Status SNOMED Code Problem Allergic rhinitis, unspecified allergic rhinitis trigger, unspecified rhinitis seasonality J30.9 Active 07577054 Problem Osteoarthritis of both knees, unspecified osteoarthritis type M17.0 Active 746030769 Problem Type 2 diabetes mellitus with diabetic neuropathy, without long-term current use of insulin E11.40 Active 54077850 Problem 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 Active 748960554 Problem Recurrent major depressive disorder, in partial 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 Active 76111695 Problem Chronic GERD K21.9 Active 191677299 Problem Chronic pain syndrome G89.4 Active 680473031 Problem Nocturnal hypoxemia G47.34 Active 469455553 Problem Gastroesophageal reflux disease without esophagitis K21.9 Active 530970260 Problem Elevated transaminase level R74.0 Active 687857251 Problem 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 Active 899949545 Problem Chronic obstructive pulmonary disease, unspecified COPD type J44.9 Active 18271613 Problem Mixed hyperlipidemia E78.2 Active 395995695 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 Active 7882778 Problem Essential hypertension I10 Active 17070510 Problem Hypoxia R09.02 Active 073204322 Problem Anxiety F41.9 Active 57883469 ALLERGIES No Information ENCOUNTERS Encounter Location Date Diagnosis [facility] [id number] [address] Aug, [facility] [id number], [place] [address] Aug, [facility] [id number], [place] [address] 2435 Aug, Chronic pain syndrome G89.4 [facility] [address] [address] Aug, [facility] [id number] [place] [address] 22755- 9251 Aug, [facility] [id number] [place] [address] 01124- 1412 July, Gastroesophageal reflux disease without esophagitis K21.9 [facility] [id number] [place] [address] 21528- 1841 July, [facility] [id number] [place] [address] 86418- 1511 July, [facility] [id number] [place] [address] 79423- 6860 July, [facility] [id number] [place] [address] 18974- 3547 July, Essential hypertension I10 and Chronic pain syndrome G89.4 [facility] [id number] [place] [address] 29363- 2528 July, Gastroesophageal reflux disease without esophagitis K21.9 [facility] [id number] [place] [address] 68878- 8800 July, 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 [facility] [id number] [place] [address] 72786- 6707 July, Chronic obstructive pulmonary disease, unspecified COPD type J44.9 ; Nocturnal cough R05 ; 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 and Recurrent major depressive disorder, in partial 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 [facility] [id number] [place] [address] 03502- 2700 July, [facility] [id number] [place] [address] 06865- 5973 July, Type 2 diabetes mellitus with diabetic neuropathy, without long-term current use of insulin E11.40 [facility] [id number] [place] [address] 76064- 1345 July, Nocturnal hypoxemia G47.34 ; Chronic obstructive pulmonary disease, unspecified COPD type J44.9 and Nocturnal cough R05 [facility] [id number] [place] [address] 30149- 7846 July, [facility] [address] 78820- 6256 July, [facility] [address] 85367- 3359 July, [facility] [address] 44976- 0618 Jun, Chronic pain syndrome G89.4 [facility] [address] 30655- 3829 Jun, [facility] [address] 64300- 9484 Jun, [facility] [address] 17499- 5225 Jun, 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 [facility] [id number] [place] [address] 13149- 3522 Jun, [facility] [id number] [place] [address] 67650- 7690 Jun, Gastroesophageal reflux disease without esophagitis K21.9 [facility] [id number] [place] [address] 21688- 1188 Jun, Allergic rhinitis, unspecified allergic rhinitis trigger, unspecified rhinitis seasonality J30.9 [facility] [address] 39316- 6721 Jun, Chronic pain syndrome G89.4 [facility] [id number] [place] [address] 61349- 4539 May, [facility] [address] [place] [address]- 9048 15 May, 2017 COPD with acute exacerbation J44.1 [facility] [address] 19794- 6509 14 May, 2017 Type 2 diabetes mellitus with diabetic neuropathy, without long-term current use of insulin E11.40 ; COPD with acute exacerbation J44.1 ; Hypoxia R09.02 ; Chronic pain syndrome G89.4 ; Yeast dermatitis B37.2 ; 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 and 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 [facility] [address] 16587- 2104 May, [facility] [address] 65321- 7100 May, Chronic pain syndrome G89.4 [facility] [address] 30916- 1890 May, [facility] [address] 67935- 6596 May, [facility] [address] 36042- 5265 May, Mixed hyperlipidemia E78.2 [facility] [address] 78029- 8149 15 May, 2017 Chronic pain syndrome G89.4 [facility] [id number] [place] [address] 24246- 7908 May, Anxiety F41.9 and Chronic pain syndrome G89.4 [facility] [id number] [place] [address] 45698- 6288 Mar, [facility] [address] 44376- 9790 Mar, [facility] [id number] [place] [address] 11077- 8843 Mar, [facility] [id number] [place] [address] 26371- 5012 Mar, [facility] [id number] [place] [address] 40400- 2078 Mar, [facility] [id number] [place] [address] 45523- 3642 Mar, Anxiety F41.9 and Chronic pain syndrome G89.4 [facility] [id number] [place] [address] 01575- 2905 Mar, Medicare annual wellness visit, initial Z00.00 [...] Hiatal hernia K44.9 and Actinic keratosis L57.0 [facility] [id number] [place] [address] 99349- 8046 Mar, [facility] [id number] [place] [address] 36078- 4256 Mar, Chronic pain syndrome G89.4 [facility] [id number] [place] [address] 16780- 0913 Feb, [facility] [id number] [place] [address] 16939- 0768 Feb, Chronic pain syndrome G89.4 [facility] [id number] [place] [address] 82829- 8819 Feb, [facility] [id number] [place] [address] 69819- 8145 Feb, [facility] [address] [place] [address]- 5720 Feb, Anxiety F41.9 [facility] [address] 11384- 7212 Feb, [facility] [id number] [place] [address] 74125- 7286 Feb, Chronic pain syndrome G89.4 [facility] [address] 85686- 1871 Jan, Essential hypertension I10 [facility] [facility] [address] 78693- 4424 Jan, Chronic pain syndrome G89.4 [facility] [address] 29907- 3753 Jan, [facility] [address] 86418- 9768 Jan, Anxiety F41.9 [facility] [address] 05133- 0850 Jan, Encounter for immunization Z23 and Community acquired pneumonia, unspecified laterality J18.9 [facility] [facility] [id number] [place] [address] 24228- 9232 Jan, Type 2 diabetes mellitus with diabetic neuropathy, without long-term current use of insulin E11.40 [facility] [id number] [place] [address] 52614- 0600 Dec, Anxiety F41.9 and Chronic pain syndrome G89.4 [facility] [id number] [place] [address] 58865- 3044 Dec, Chronic pain syndrome G89.4 and Essential hypertension I10 [facility] [id number] [place] [address] 86483- 4759 16 Dec, 2016 [facility] [id number] [place] [address] 68692- 7451 Dec, Anxiety F41.9 [facility] [facility] [id number] [place] [address] 58339- 2403 Dec, [facility] [id number] [place] [address] 67844- 9375 Dec, Type 2 diabetes mellitus with diabetic neuropathy, without long-term current use of insulin E11.40 ; Lactic acidosis E87.2 ; Chronic obstructive pulmonary disease, unspecified COPD type J44.9 and Encounter for immunization Z23 [facility] [id number] [place] [address] 47842- 8286 Dec, Chronic pain syndrome G89.4 [facility] [id number] [place] [address] 55561- 5996 Nov, [facility] [id number] [place] [address] 20695- 8191 Nov, Chronic pain syndrome G89.4 [facility] [id number] [place] [address] 94262- 4731 Nov, [facility] [id number] [place] [address] 96223 2547 Nov, [facility] [id number] [place] [address] 29815- 4225 Nov, Anxiety F41.9 [facility] [id number] [place] [address] 95758 2543 11 Nov, 2016 Anxiety F41.9 [facility] [id number] [place] [address] 40927- 0193 08 Nov, 2016 [facility] [id number] [place] [address] 75734 2540 05 Nov, 2016 [facility] [id number] [place] [address] 96540- 2548 Nov, [facility] [id number] [place] [address] 81918- 3248 Oct, [facility] [id number] [place] [address] 22589- 7441 Oct, [facility] [id number] [place] [address] 35991- 2554 Oct, [facility] [id number] [place] [address] 64539- 2234 Oct, Essential hypertension I10 and Chronic pain syndrome G89.4 [facility] [id number] [place] [address] 89562- 5770 Oct, Anxiety F41.9 [facility] [id number] [place] [address] 72445- 0311 Oct, [facility] [id number] [place] [address] 00856- 1392 Oct, Chronic pain syndrome G89.4 [facility] [id number] [place] [address] 54941 -9524 Oct, Sore throat J02.9 and Acute nasopharyngitis (common cold) J00 [facility] [id number] [place] [address] 37791- 6402 Sep, [facility] [id number] [place] [address] 54938- 3096 Sep, COPD exacerbation J44.1 [facility] [id number] [place] [address] 44352- 5450 Sep, Chronic pain syndrome G89.4 [facility] [id number] [place] [address] 37243- 1878 Sep, Essential hypertension I10 [facility] [id number] [place] [address] 45216- 0038 Sep, [facility] [id number] [place] [address] 76606- 7371 Sep, [facility] [address] [place] [address]- 0532 Sep, Anxiety F41.9 [facility] [address] [place] [address]- 5540 05 Sep, 2016 Chronic pain syndrome G89.4 [facility] [id number] [place] [address] 41405- 2613 Sep, [facility] [id number] [place] [address] 09652- 1859 Aug, Acute seasonal allergic rhinitis, unspecified trigger J30.2 ; Hiatal hernia K44.9 and Chronic pain syndrome G89.4 [facility] [id number] [place] [address] 58907- 6926 Aug, [facility] [id number] [place] [address] 51781- 1258 Aug, [facility] [id number] [place] [address] 18185- 2013 Aug, Chronic obstructive pulmonary disease, unspecified COPD type J44.9 [facility] [id number] [place] [address] 07511- 4218 14 Aug, 2016 Anxiety F41.9 [facility] [id number] [place] [address] 08688- 0435 08 Aug, 2016 Chronic pain syndrome G89.4 [facility] [id number] [place] [address] 43843- 2974 07 Aug, 2016 Hiatal hernia K44.9 and Actinic keratosis L57.0 [facility] [id number] [place] [address] 95695- 3963 07 Aug, 2016 [facility] [id number] [place] [address] 44231- 7293 Aug, Anxiety F41.9 [facility] [id number] [place] [address] 78306- 5090 July, [facility] [id number] [place] [address] 54462- 8910 July, Hiatal hernia K44.9 [facility] [id number] [place] [address] 76189- 4940 July, [facility] [address] 21822- 9249 July, Anxiety F41.9 and Chronic pain syndrome G89.4 [facility] [id number] [place] [address] 88622- 5317 July, [facility] [id number] [place] [address] 02641- 9816 Jun, Chronic pain syndrome G89.4 [facility] [id number] [place] [address] 61383- 1766 Jun, Chronic pain syndrome G89.4 [facility] [id number] [place] [address] 39439- 4720 Jun, [facility] [address] 78509- 1301 Jun, Anxiety F41.9 [facility] [id number] [place] [address] 01577- 0813 Jun, Allergic rhinitis, unspecified allergic rhinitis trigger, unspecified rhinitis seasonality J30.9 [facility] [id number] [place] [address] 13098- 9339 Jun, [facility] [id number] [place] [address] 41832- 9846 May, Chronic pain syndrome G89.4 [facility] [id number] [place] [address] 40182- 6068 May, [facility] [id number] [place] [address] 78397- 0183 May, [facility] [id number] [place] [address] 71365- 4533 May, Anxiety F41.9 [facility] [id number] [place] [address] 82930- 2435 May, Type 2 diabetes mellitus with diabetic [...] Anxiety F41.9 and Chronic pain syndrome G89.4 [facility] [id number] [place] [address] 38137- 3676 May, Essential hypertension I10 ; Type 2 diabetes mellitus with diabetic neuropathy, without long-term current use of insulin E11.40 ; Mixed hyperlipidemia E78.2 ; Chronic obstructive pulmonary disease, unspecified COPD type J44.9 and Chronic GERD K21.9 [facility] [id number] [place] [address] 96496- 4907 May, [facility] [id number] [place] [address] 05035- 6091 May, [facility] [id number] [place] [address] 74909- 3298 May, Type 2 diabetes mellitus with diabetic neuropathy, without long-term current use of insulin E11.40 [facility] [id number] [place] [address] 57278- 0933 May, Dementia without behavioral disturbance, unspecified dementia type F03.90 [facility] [id number] [place] [address]- 4854 May, Type 2 diabetes mellitus with diabetic neuropathy, without long-term current use of insulin E11.40 ; Essential hypertension I10 ; Mixed hyperlipidemia E78.2 ; Chronic obstructive pulmonary disease, unspecified COPD type J44.9 ; Chronic GERD K21.9 and Osteoarthritis of both knees, unspecified osteoarthritis type M17.0 [facility] [id number] [place] [address] 34182- 4330 May, [facility] [id number] [place] [address] 79737- 9279 May, [facility] [id number] [place] [address] 92219- 8603 May, Anxiety F41.9 and Unspecified symptoms and signs involving cognitive functions and awareness R41.9 [facility] [id number] [place] [address] 28274- 2374 May, [facility] [id number] [place] [address] 44447- 5392 May, Type 2 diabetes mellitus with diabetic neuropathy, without long-term current use of insulin E11.40 ; Anxiety F41.9 and Chronic obstructive pulmonary disease, unspecified COPD type J44.9 [facility] [id number] [place] [address] 86931- 1666 May, [facility] [id number] [place] [address] 29782- 9076 May, [facility] [id number] [place] [address] 58845- 2718 May, [facility] [id number] [place] [address] 50865- 0170 May, Chronic obstructive pulmonary disease, unspecified COPD type J44.9 [facility] [id number] [place] [address] 44276- 3153 Mar, [facility] [id number] [place] [address] 59424- 2085 Mar, Arthritis of both knees M19.90 [facility] [id number] [place] [address] 49580- 0796 Mar, Type 2 diabetes mellitus with diabetic neuropathy, without long-term current use of insulin E11.40 [facility] [place] [id number] [place] [address] 52761- 1325 Mar, [facility] [address] 93569- 1083 05 Mar, 2016 Neck pain M54.2 and Weakness generalized R53.1 [facility] [address] 06233- 2278 Mar, [facility] [address] 16435- 3239 Mar, Cervicalgia M54.2 and Impacted cerumen of both ears H61.23 [facility] [address] 68025- 3010 Mar, [facility] [address] 66032- 1594 Mar, Type 2 diabetes mellitus with diabetic neuropathy, without long-term current use of insulin E11.40 [facility] [address] 14097- 3423 Feb, [facility] [address] 51931- 1786 Feb, Hypoxia R09.02 [facility] [address] 58510- 0220 Feb, [facility] [address] 34829- 8303 Feb, [facility] [place] [id number] [place] [address] 62292- 0962 Feb, [facility] [address] 73221- 8480 Feb, Type 2 diabetes mellitus with diabetic neuropathy, without long-term current use of insulin E11.40 [facility] [address] 27519- 0774 15 Feb, 2016 Osteoarthritis of both knees, unspecified osteoarthritis type M17.0 [facility] [id number] [place] [address] 01487- 3759 14 Feb, 2016 [facility] [address] [place] [address]- 0923 Feb, [facility] [id number] [place] [address] 81507- 4769 Feb, [facility] [id number] [place] [address] 52824- 1845 Jan, [facility] [id number] [place] [address] 68081- 3142 Jan, [facility] [id number] [place] [address] 83542- 7770 Jan, [facility] [id number] [place] [address] 74147- 2434 Jan, [facility] [id number] [place] [address] 44922- 8527 Jan, Tinea pedis of both feet B35.3 [facility] [id number] [place] [address] 26218- 8606 Jan, Type 2 diabetes mellitus with diabetic [...] seasonality J30.9 and Encounter for immunization Z23 [facility] [id number] [place] [address] 47007- 3686 Jan, [facility] [id number] [place] [address] 73384- 6709 Jan, [facility] [id number] [place] [address] 00603- 1054 Dec, [facility] [id number] [place] [address] 41957- 7772 Dec, [facility] [address] [facility] [id number] [address] -9543 Dec, Unspecified asthma with (acute) exacerbation J45.901 and Chronic obstructive pulmonary disease with (acute) exacerbation J44.1 [facility] [address] [place] [address]- 4229 Dec, Arthritis of both knees M19.90 and Acute medial meniscus tear, right, initial encounter S83.241A [facility] [address] [facility] [id number], [place] [address]- 6482 Dec, [facility] [address] [facility] [id number], [place] [address]- 8485 Dec, [facility] [address] [place] [address]- 2924 Dec, [facility] [id number] [place] [address] 30095- 4003 Dec, [facility] [address] [address]- 0518 Dec, History of pneumonia Z87.01 [facility] [id number] [address]- 6057 Dec, [facility] [address] [place] [address]- 6238 Dec, [facility] [id number] [address]- 3683 05 Dec, 2015 [facility] [id number] [address]- 7667 Dec, [facility] [address] [place] [address]- 7651 Dec, [facility] [id number] [address]- 0877 Dec, [facility] [id number] [address]- 8757 30 Nov, 2015 Cough R05 and Pneumonia due to infectious organism, unspecified laterality, unspecified part of lung J18.9 [facility] [address] [facility] [id number], [place] [address] 28 Nov, 2015 [facility] [address] [id number], [place] [address] 22 Nov, 2015 Type 2 diabetes mellitus [...] allergic rhinitis trigger, unspecified rhinitis seasonality J30.[id number] [facility] [id number], [place] [address] 12 Nov, 2015 IMMUNIZATIONS No Known Immunizations [...] obstructive pulmonary disease (COPD)-wears 2L O2 per [place], uses [place] for home O2 Medical [...] TIA, [facility] 2014 Hospitalization History COPD exacerbation--[facility] 12/27/2015 [facility] History [facility] - fall 02/2016 Hospitalization History [facility] pneumonia 11/2016 Hospitalization History COPD exacerbation - Dr Hartley Attending 12/2016 Hospitalization History Cough- [facility] 04/10/2017 Hospitalization History [facility] - Possible Pneumonia 06/2017
--- OUTSIDE RECORDS SUMMARY | 2017-09-12 00:04 | XMS REPORT ---
Author Author JAI LINARESNYA [facility] Address [address] [place] [address] Care Team Providers Care Party Plan Sales Consultant Name Role Phone JM LINARESWNYA Unavailable PROBLEMS Type Condition ICD9-CM Code [id number] Code Onset Dates Condition Status SNOMED Code Problem Essential hypertension I10 Active 60131416 Problem Allergic rhinitis, unspecified allergic rhinitis trigger, unspecified rhinitis seasonality J30.9 Active 51653545 Problem Anxiety F41.9 Active 84064673 Problem Nocturnal hypoxemia G47.34 Active 604687080 Problem Gastroesophageal reflux disease without esophagitis K21.9 Active 531806001 Problem Osteoarthritis of both knees, unspecified osteoarthritis type M17.0 Active 738291060 Problem Type 2 diabetes mellitus with diabetic neuropathy, without long-term current use of insulin E11.40 Active 75164338 Problem Chronic GERD K21.9 Active 119654056 Problem Chronic pain syndrome G89.4 Active 310233739 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 Active 6327064 Problem Hypoxia R09.02 Active 155854617 Problem Chronic obstructive pulmonary disease, unspecified COPD type J44.9 Active 11228670 Problem 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 Active 821057530 Problem Mixed hyperlipidemia E78.2 Active 543058298 ALLERGIES No Information ENCOUNTERS Encounter Location Date Diagnosis [facility] [id number] [address] Aug, [facility] [id number] [place] [address] 26769- 5763 July, [facility] [id number] [place] [address] 92742- 8129 July, [facility] [address] [address] July, Type 2 diabetes mellitus with diabetic neuropathy, without long-term current use of insulin E11.40 [facility] [id number] [place] [address] 05918- 1670 July, Nocturnal hypoxemia G47.34 ; Chronic obstructive pulmonary disease, unspecified COPD type J44.9 and Nocturnal cough R05 [facility] [address] 85296- 3845 July, [facility] [address] 40721- 9900 July, [facility] [address] 48127- 0117 July, [facility] [address] 32381- 8537 Jun, Chronic pain syndrome G89.4 [facility] [address] 68653- 1084 Jun, [facility] [address] 45832- 8086 Jun, [facility] [address] 18147- 5213 Jun, 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 [facility] [address] 12488- 2847 Jun, [facility] [address] 39411- 3121 Jun, Gastroesophageal reflux disease without esophagitis K21.9 [facility] [id number] [place] [address] 34887- 3713 Jun, Allergic rhinitis, unspecified allergic rhinitis trigger, unspecified rhinitis seasonality J30.9 [facility] [id number] [place] [address] 35919- 2151 Jun, Chronic pain syndrome G89.4 [facility] [address] 33578- 5147 May, [facility] [id number] [place] [address] 33593- 4435 May, COPD with acute exacerbation J44.1 [facility] [address] [id number]- 7221 14 May, 2017 Type 2 diabetes mellitus with diabetic neuropathy, without long-term current use of insulin E11.40 ; COPD with acute exacerbation J44.1 ; Hypoxia R09.02 ; Chronic pain syndrome G89.4 ; Yeast dermatitis B37.2 ; 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 and 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 [place] [address] 62410- 6924 May, [place] [address] 90060- 9962 May, Chronic pain syndrome G89.4 [facility] [address] 22571- 5714 May, [facility] [address] 55588- 5470 May, [facility] [address] 88581- 1288 May, Mixed hyperlipidemia E78.2 [facility] [address] 26143- 1548 May, Chronic pain syndrome G89.4 [facility] [id number] [place] [address] 09616- 4658 May, Anxiety F41.9 and Chronic pain syndrome G89.4 [facility] [address] 44265- 3765 Mar, [facility] [address] 38389- 0108 Mar, [facility] [address] 32019- 6855 Mar, [facility] [address] [place] [address] 70366- 7982 Mar, [facility] [id number] [place] [address] 85237- 9279 Mar, [place] [id number] [place] [address] 77779- 3754 Mar, Anxiety F41.9 and Chronic pain syndrome G89.4 [facility] [id number] [place] [address] 22901- 0900 Mar, Medicare annual wellness visit, initial Z00.00 [...] Hiatal hernia K44.9 and Actinic keratosis L57.0 [place] [address] [place] [address] 30488- 3207 Mar, [place] [address] [place] [address] 33446- 9514 Mar, Chronic pain syndrome G89.4 [facility] [id number] [place] [address] 00233- 1002 Feb, [place] [id number] [place] [address] 64404- 9113 Feb, Chronic pain syndrome G89.4 [place] [id number] [place] [address] 78783- 4713 Feb, [place] [id number] [place] [address] 25389- 5761 Feb, [facility] [id number] [place] [address] 76092- 0883 Feb, Anxiety F41.9 [facility] [id number] [place] [address] 82887- 1927 Feb, [facility] [id number] [place] [address] 15981- 0436 Feb, Chronic pain syndrome G89.4 [facility] [address] 22841- 4816 Jan, Essential hypertension I10 [address] [address] 13908- 7025 Jan, Chronic pain syndrome G89.4 [facility] [address] 69177- 5434 Jan, [facility] [address] 21386- 3629 Jan, Anxiety F41.9 [facility] [address] 11479- 9935 Jan, Encounter for immunization Z23 and Community acquired pneumonia, unspecified laterality J18.9 [facility] [id number] [place] [address] 02100- 9225 Jan, Type 2 diabetes mellitus with diabetic neuropathy, without long-term current use of insulin E11.40 [facility] [id number] [place] [address] 09677- 5663 Dec, Anxiety F41.9 and Chronic pain syndrome G89.4 [facility] [id number] [place] [address] 23656- 0581 Dec, Chronic pain syndrome G89.4 and Essential hypertension I10 [facility] [id number] [place] [address] 37364- 8921 16 Dec, 2016 [facility] [address] 12943- 7646 Dec, Anxiety F41.9 [facility] [id number] [place] [address] 80736- 6115 Dec, [facility] [id number] [place] [address] 34020- 8778 Dec, Type 2 diabetes mellitus with diabetic neuropathy, without long-term current use of insulin E11.40 ; Lactic acidosis E87.2 ; Chronic obstructive pulmonary disease, unspecified COPD type J44.9 and Encounter for immunization Z23 [facility] [id number] [place] [address] 31771- 0836 Dec, Chronic pain syndrome G89.4 [facility] [address] 95900- 9821 Nov, [facility] [address] 31228- 1863 Nov, Chronic pain syndrome G89.4 [facility] [id number] [place] [address] 76197 2548 Nov, [facility] [id number] [place] [address] 61843 2548 Nov, [facility] [id number] [place] [address] 50320 2544 Nov, Anxiety F41.9 [facility] [id number] [place] [address] 47998 2543 Nov, Anxiety F41.9 [facility] [id number] [place] [address] 71184 2541 Nov, [facility] [address] 04705 2541 05 Nov, 2016 [facility] [id number] [place] [address] 41533- 2546 Nov, [facility] [id number] [place] [address] 08767- 5024 Oct, [facility] [address] [place] [address] 47327- 9974 Oct, [facility] [id number] [place] [address] 32596- 5501 Oct, [facility] [id number] [place] [address] 84356- 3991 Oct, Essential hypertension I10 and Chronic pain syndrome G89.4 [facility] [id number] [place] [address] 18202- 5182 Oct, Anxiety F41.9 [facility] [id number] [place] [address] 06503- 7569 Oct, [facility] [id number] [place] [address] 38232- 0159 Oct, Chronic pain syndrome G89.4 [facility] [id number] [place] [address] 50273 -5056 Oct, Sore throat J02.9 and Acute nasopharyngitis (common cold) J00 [facility] [id number] [place] [address] 05750- 6456 Sep, [facility] [id number] [place] [address] 23346- 9107 Sep, COPD exacerbation J44.1 [facility] [id number] [place] [address] 50601- 3860 Sep, Chronic pain syndrome G89.4 [facility] [id number] [place] [address] 52390- 3890 Sep, Essential hypertension I10 [facility] [id number] [place] [address] 06408- 1499 Sep, [facility] [id number] [place] [address] 23941- 8885 Sep, [facility] [id number] [place] [address] 49262- 6510 Sep, Anxiety F41.9 [facility] [id number] [place] [address] 37097- 9994 Sep, Chronic pain syndrome G89.4 [facility] [id number] [place] [address] 38240- 2537 Sep, [facility] [id number] [place] [address] 29908- 7021 Aug, Acute seasonal allergic rhinitis, unspecified trigger J30.2 ; Hiatal hernia K44.9 and Chronic pain syndrome G89.4 [facility] [id number] [place] [address] 35549- 1386 Aug, [facility] [id number] [place] [address] 95164- 4932 Aug, [facility] [id number] [place] [address] 91436- 5091 Aug, Chronic obstructive pulmonary disease, unspecified COPD type J44.9 [facility] [id number] [place] [address] 81488- 1812 Aug, Anxiety F41.9 [facility] [id number] [place] [address] 60754- 4320 Aug, Chronic pain syndrome G89.4 [facility] [address] [place] [address] 84869- 5516 Aug, Hiatal hernia K44.9 and Actinic keratosis L57.0 [facility] [id number] [place] [address] 21908- 2739 Aug, [facility] [id number] [place] [address] 21448- 0549 Aug, Anxiety F41.9 [facility] [id number] [place] [address] 84156- 7245 July, [facility] [id number] [place] [address] 66158- 2563 July, Hiatal hernia K44.9 [facility] [id number] [place] [address] 76612- 1411 July, [facility] [id number] [place] [address] 25014- 5002 July, Anxiety F41.9 and Chronic pain syndrome G89.4 [facility] [id number] [place] [address] 78305- 0953 July, [facility] [id number] [place] [address] 78465- 6135 Jun, Chronic pain syndrome G89.4 [facility] [id number] [place] [address] 31583- 4412 Jun, Chronic pain syndrome G89.4 [facility] [id number] [place] [address] 08920- 2139 Jun, [facility] [id number] [place] [address] 80882- 8271 Jun, Anxiety F41.9 [facility] [id number] [place] [address] 05196- 2331 Jun, Allergic rhinitis, unspecified allergic rhinitis trigger, unspecified rhinitis seasonality J30.9 [facility] [id number] [place] [address] 08367- 3693 Jun, [facility] [id number] [place] [address] 24549- 7463 May, Chronic pain syndrome G89.4 [facility] [address] [place] [address] 37353- 8280 May, [facility] [id number] [place] [address] 65238- 0115 May, [facility] [address] [place] [address] 48316- 4115 May, Anxiety F41.9 [place] [address] [address]- 5562 May, Type 2 diabetes mellitus with diabetic [...] Anxiety F41.9 and Chronic pain syndrome G89.4 [place] [id number] [place] [address] 61441- 8788 May, Essential hypertension I10 ; Type 2 diabetes mellitus with diabetic neuropathy, without long-term current use of insulin E11.40 ; Mixed hyperlipidemia E78.2 ; Chronic obstructive pulmonary disease, unspecified COPD type J44.9 and Chronic GERD K21.9 [place] [id number] [place] [address] 34873- 3419 May, [place] [id number] [place] [address] 31537- 7793 May, [place] [id number] [place] [address] 43032- 7712 May, Type 2 diabetes mellitus with diabetic neuropathy, without long-term current use of insulin E11.40 [place] [id number] [place] [address] 42222- 8316 May, Dementia without behavioral disturbance, unspecified dementia type F03.90 [place] [id number] [place] [address] 48067- 9803 May, Type 2 diabetes mellitus with diabetic neuropathy, without long-term current use of insulin E11.40 ; Essential hypertension I10 ; Mixed hyperlipidemia E78.2 ; Chronic obstructive pulmonary disease, unspecified COPD type J44.9 ; Chronic GERD K21.9 and Osteoarthritis of both knees, unspecified osteoarthritis type M17.0 [place] [id number] [place] [address] 72354- 1940 May, [facility] [id number] [place] [address] 37188- 7525 May, [place] [id number] [place] [address] 40721- 3852 May, Anxiety F41.9 and Unspecified symptoms and signs involving cognitive functions and awareness R41.9 [place] [id number] [place] [address] 69779- 1085 May, [place] [id number] [place] [address] 59629- 2625 May, Type 2 diabetes mellitus with diabetic neuropathy, without long-term current use of insulin E11.40 ; Anxiety F41.9 and Chronic obstructive pulmonary disease, unspecified COPD type J44.9 [place] [id number] [place] [address] 88434- 5208 May, [place] [id number] [place] [address] 98123- 5301 May, [place] [id number] [place] [address] 24671- 1075 May, [place] [id number] [place] [address] 03480- 1095 May, Chronic obstructive pulmonary disease, unspecified COPD type J44.9 [place] [id number] [place] [address] 94813- 1123 Mar, [place] [id number] [place] [address] 74541- 9147 Mar, Arthritis of both knees M19.90 [place] [id number] [place] [address] 17018- 5270 Mar, Type 2 diabetes mellitus with diabetic neuropathy, without long-term current use of insulin E11.40 [place] [id number] [place] [address] 80039- 4635 Mar, [place] [id number] [place] [address] 93954- 2584 Mar, Neck pain M54.2 and Weakness generalized R53.1 [place] [id number] [place] [address] 87507- 1096 Mar, [place] [address] 67052- 3405 Mar, Cervicalgia M54.2 and Impacted cerumen of both ears H61.23 [place] [id number] [place] [address] 06177- 0262 Mar, [place] [address] 78368- 8744 Mar, Type 2 diabetes mellitus with diabetic neuropathy, without long-term current use of insulin E11.40 [place] [address] 16477- 1928 Feb, [place] [id number] [place] [address] 66254- 8234 Feb, Hypoxia R09.02 [place] [address] 30970- 5887 Feb, [place] [id number] [place] [address] 91037- 0320 Feb, [place] [id number] [place] [address] 31454- 5782 Feb, [place] [id number] [place] [address] 91197- 9318 Feb, Type 2 diabetes mellitus with diabetic neuropathy, without long-term current use of insulin E11.40 [facility] [id number] [place] [address] 11212- 4993 15 Feb, 2016 Osteoarthritis of both knees, unspecified osteoarthritis type M17.0 [place] [id number] [place] [address] 07771- 3490 Feb, [facility] [address] [place] [address] 39880- 6202 Feb, [facility] [id number] [place] [address] 48848- 6095 Feb, [facility] [id number] [place] [address] 03936- 3296 Jan, [facility] [address] 93704- 8730 Jan, [facility] [id number] [place] [address] 50499- 4815 Jan, [facility] [id number] [place] [address] 31973- 2584 Jan, [facility] [id number] [place] [address] 46011- 1859 Jan, Tinea pedis of both feet B35.3 [facility] [id number] [place] [address] 21036- 8930 Jan, Type 2 diabetes mellitus with diabetic [...] seasonality J30.9 and Encounter for immunization Z23 [place] [id number] [place] [address] 77356- 0312 Jan, [facility] [id number] [place] [address] 55878- 8162 Jan, [facility] [id number] [place] [address] 81219- 2346 Dec, [facility] [address] [address]- 6183 Dec, [facility] [address] [place] [address] 48688 -0286 Dec, Unspecified asthma with (acute) exacerbation J45.901 and Chronic obstructive pulmonary disease with (acute) exacerbation J44.1 [facility] [id number] [place] [address] 70630- 9458 Dec, Arthritis of both knees M19.90 and Acute medial meniscus tear, right, initial encounter S83.241A [facility] [id number] [place] [address] 83464- 4996 Dec, [facility] [id number] [place] [address] 79469- [phone] Dec, [facility] [id number] [place] [address] [phone]- 1108 Dec, [facility] [id number] [place] [address]7224- 6405 Dec, [facility] [id number] [place] [address] 03615- 6166 Dec, History of pneumonia Z87.01 [facility] [id number] [address] Dec, [facility] [id number] [address] Dec, [facility] [id number] [address] Dec, [facility] [id number] [place] [address] 25530- 7236 Dec, [facility] [id number] [address] Dec, [facility] [id number] [place] [address] [phone]- 0242 Dec, [id number] [address] 30 Nov, 2015 Cough R05 and Pneumonia due to infectious organism, unspecified laterality, unspecified part of lung J18.9 [id number] [address] Nov, [id number] [place] [address]25- 1516 Nov, Type 2 diabetes mellitus with diabetic [...] trigger, unspecified rhinitis seasonality J30.9 [id number] [address] Nov, IMMUNIZATIONS No Known Immunizations SOCIAL HISTORY Never Assessed REASON FOR VISIT Controlled Med Refill-01/30 PLAN OF CARE VITAL SIGNS MEDICATIONS Medication Instructions Dosage Frequency Start Date End Date Duration Status Clonazepam 1 MG Orally 3x a day prn must last 28 Days 1 tablet Active Tramadol HCl 50 mg Orally every 12 hrs must last 28 days 1 tablet as needed Active RESULTS No Results PROCEDURES No Known procedures INSTRUCTIONS MEDICATIONS ADMINISTERED No Known Medications MEDICAL (GENERAL) HISTORY Type Description Date Medical History hypertension Medical History chronic obstructive pulmonary disease (COPD)-wears 2L O2 per [place], uses [place] for home O2 Medical History Arthritis-knees and [...] TIA, [address] 2014 Hospitalization History COPD exacerbation--[facility] 12/27/2015 [facility] 02/2016 [facility] History [facility] 11/2016 Hospitalization History COPD exacerbation - Dr Hartley Attending 12/2016 Hospitalization History Cough- [facility] 04/10/2017 [facility] - Possible Pneumonia 06/2017
--- OUTSIDE RECORDS SUMMARY | 2017-09-12 00:12 | XMS REPORT ---
Author Author ASIM LINARES [facility] Address [address] [place] [address] Care Team Providers Care Moisture Meter Reader Name Role Phone VIJAY ASIM Unavailable PROBLEMS Type Condition ICD9-CM Code SSC52-DV Code Onset Dates Condition Status SNOMED Code Problem Allergic rhinitis, unspecified allergic rhinitis trigger, unspecified rhinitis seasonality J30.9 Active 81681686 Problem Osteoarthritis of both knees, unspecified osteoarthritis type M17.0 Active 817935415 Problem Type 2 diabetes mellitus with diabetic neuropathy, without long-term current use of insulin E11.40 Active 32385975 Problem 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 Active 461127808 Problem Recurrent major depressive disorder, in partial 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 Active 00499457 Problem Chronic GERD K21.9 Active 689824414 Problem Chronic pain syndrome G89.4 Active 141628850 Problem Nocturnal hypoxemia G47.34 Active 070543026 Problem Gastroesophageal reflux disease without esophagitis K21.9 Active 082312102 Problem Elevated transaminase level R74.0 Active 430597726 Problem 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 Active 601474107 Problem Chronic obstructive pulmonary disease, unspecified COPD type J44.9 Active 91759292 Problem Mixed hyperlipidemia E78.2 Active 529126946 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 Active 3042563 Problem Essential hypertension I10 Active 98752544 Problem Hypoxia R09.02 Active 642402445 Problem Anxiety F41.9 Active 90879731 ALLERGIES No Information ENCOUNTERS Encounter Location Date Diagnosis [facility] [id number], [place] [address] Aug, [facility] [id number], [place] [address] 12 Aug, 2017 [facility] [id number], [place] [address] Aug, [facility] [address], [place] [address] 3[address] Aug, Chronic pain syndrome G89.4 [facility] [address], [place] [address] 1688 Aug, [facility] [id number] [place] [address] 65412- 2181 Aug, [facility] [id number] [place] [address] 40560- 6645 July, Gastroesophageal reflux disease without esophagitis K21.9 [facility] [id number] [place] [address] 60673- 7096 July, [facility] [id number] [place] [address] 58994- 3977 July, [facility] [id number] [place] [address] 71541- 2572 July, [facility] [id number] [place] [address] 56113- 0289 July, Essential hypertension I10 and Chronic pain syndrome G89.4 [facility] [id number] [place] [address] 92434- 7463 July, Gastroesophageal reflux disease without esophagitis K21.9 [facility] [address], [place] [address] 1001 July, 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 [facility] [id number] [place] [address] 22485- 4223 July, Chronic obstructive pulmonary disease, unspecified COPD type J44.9 ; Nocturnal cough R05 ; 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 and Recurrent major depressive disorder, in partial 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 [facility] [address], [place] [address] 43[address] July, [facility] [id number] [place] [address] 75522- 7358 July, Type 2 diabetes mellitus with diabetic neuropathy, without long-term current use of insulin E11.40 [facility] [address] [address]34- 5786 July, Nocturnal hypoxemia G47.34 ; Chronic obstructive pulmonary disease, unspecified COPD type J44.9 and Nocturnal cough R05 [facility] [address] 97532- 2540 July, [facility] [address] 15240- 9116 July, [facility] [address] 56606- 6442 July, [facility] [address] 32856- 9123 Jun, Chronic pain syndrome G89.4 [facility] [address] 07101- 5536 Jun, [facility] [address] 84453- 4288 Jun, [facility] [address] 07604- 9409 Jun, 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 [facility] [id number] [place] [address] 00639- 5573 Jun, [facility] [address] 68679- 2477 Jun, Gastroesophageal reflux disease without esophagitis K21.9 [facility] [address] 29393- 6752 Jun, Allergic rhinitis, unspecified allergic rhinitis trigger, unspecified rhinitis seasonality J30.9 [facility] [id number] [place] [address] 35511- 4105 Jun, Chronic pain syndrome G89.4 [facility] [address] [place] [address]- 8272 May, [facility] [address] 38981- 2254 May, COPD with acute exacerbation J44.1 [facility] [id number] [place] [address] 97012- 2257 14 May, 2017 Type 2 diabetes mellitus with diabetic neuropathy, without long-term current use of insulin E11.40 ; COPD with acute exacerbation J44.1 ; Hypoxia R09.02 ; Chronic pain syndrome G89.4 ; Yeast dermatitis B37.2 ; 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 and 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 [facility] [address] 53487- 3263 May, [facility] [address] 09370- 1204 May, Chronic pain syndrome G89.4 [facility] [address] 20516- 5259 May, [facility] [address] 90122- 6075 May, [facility] [id number] [place] [address] 94372- 3176 May, Mixed hyperlipidemia E78.2 [facility] [address] 67152- 8508 May, Chronic pain syndrome G89.4 [facility] [id number] [place] [address] 93335- 5762 May, Anxiety F41.9 and Chronic pain syndrome G89.4 [facility] [id number] [place] [address] 32519- 8620 Mar, [facility] [id number] [place] [address] 79053- 9913 Mar, [facility] [address], [place] [address]- 0794 Mar, [facility] [id number] [place] [address] 01265- 7809 Mar, [facility] [address], [place] [address]- 8225 Mar, [facility] [id number] [place] [address] 85260- 6092 Mar, Anxiety F41.9 and Chronic pain syndrome G89.4 [facility] [address] [place] [address] 01305- 7731 Mar, Medicare annual wellness visit, initial Z00.00 [...] Hiatal hernia K44.9 and Actinic keratosis L57.0 [facility] [address], [place] [address]- 0919 Mar, [facility] [address], [place] [address]- 4249 Mar, Chronic pain syndrome G89.4 [facility] [address], [place] [address]- 9235 Feb, [facility] [id number] [place] [address] 40769- 8178 Feb, Chronic pain syndrome G89.4 [facility] [address], [place] [address]- 9316 Feb, [facility] [id number] [place] [address] 04762- 5457 Feb, [facility] [id number] [place] [address] 22920- 0038 Feb, Anxiety F41.9 [facility] [id number] [place] [address] 00081- 3789 Feb, [facility] [address] 17981- 5242 Feb, Chronic pain syndrome G89.4 [facility] [address] 30002- 4443 Jan, Essential hypertension I10 [facility] [address] 00387- 4974 Jan, Chronic pain syndrome G89.4 [facility] [address] 47435- 5960 Jan, [facility] [address] 09476- 3476 Jan, Anxiety F41.9 [facility] [address] 55222- 3216 Jan, Encounter for immunization Z23 and Community acquired pneumonia, unspecified laterality J18.9 [facility] [id number] [place] [address] 16419- 4961 Jan, Type 2 diabetes mellitus with diabetic neuropathy, without long-term current use of insulin E11.40 [facility] [id number] [place] [address] 13338- 3308 Dec, Anxiety F41.9 and Chronic pain syndrome G89.4 [facility] [address] 44103- 6885 Dec, Chronic pain syndrome G89.4 and Essential hypertension I10 [facility] [id number] [place] [address] 71971- 2407 Dec, [facility] [id number] [place] [address] 53420- 0258 Dec, Anxiety F41.9 [facility] [id number] [place] [address] 05647 2546 10 Dec, 2016 [facility] [id number] [place] [address] 73760- 2541 04 Dec, 2016 Type 2 diabetes mellitus with diabetic neuropathy, without long-term current use of insulin E11.40 ; Lactic acidosis E87.2 ; Chronic obstructive pulmonary disease, unspecified COPD type J44.9 and Encounter for immunization Z23 [facility] [id number] [place] [address] 75045- 6693 Dec, Chronic pain syndrome G89.4 [facility] [id number] [place] [address] 53867 2546 28 Nov, 2016 [facility] [id number] [place] [address] 72037 2542 Nov, Chronic pain syndrome G89.4 [facility] [id number] [place] [address] 63340 2542 Nov, [facility] [id number] [place] [address] 00173 2544 Nov, [facility] [id number] [place] [address] 03346 2541 15 Nov, 2016 Anxiety F41.9 [facility] [id number] [place] [address] 80897 2542 11 Nov, 2016 Anxiety F41.9 [facility] [id number] [place] [address] 09144 2546 08 Nov, 2016 [facility] [id number] [place] [address] 76776 2546 05 Nov, 2016 [facility] [id number] [place] [address] 09239 2541 Nov, [facility] [id number] [place] [address] 30910- 9622 Oct, [facility] [id number] [place] [address] 23906- 4924 Oct, [facility] [id number] [place] [address] 67809- 8940 Oct, [facility] [id number] [place] [address] 38325- 5139 Oct, Essential hypertension I10 and Chronic pain syndrome G89.4 [facility] [id number] [place] [address] 90559- 0379 Oct, Anxiety F41.9 [facility] [id number] [place] [address] 86709- 7132 Oct, [facility] [id number] [place] [address] 25447- 9614 Oct, Chronic pain syndrome G89.4 [facility] [id number] [place] [address] 34420 -1447 Oct, Sore throat J02.9 and Acute nasopharyngitis (common cold) J00 [facility] [id number] [place] [address] 58300- 7415 Sep, [facility] [id number] [place] [address] 27644- 9024 Sep, COPD exacerbation J44.1 [facility] [id number] [place] [address] 99551- 9757 Sep, Chronic pain syndrome G89.4 [facility] [address] [place] [address] 98170- 9026 Sep, Essential hypertension I10 [facility] [id number] [place] [address] 71200- 6968 Sep, [facility] [id number] [place] [address] 24500- 2953 Sep, [facility] [id number] [place] [address] 93635- 4547 10 Sep, 2016 Anxiety F41.9 [facility] [id number] [place] [address] 62314- 7659 05 Sep, 2016 Chronic pain syndrome G89.4 [facility] [id number] [place] [address] 06282- 0705 Sep, [facility] [address] 33653- 6578 Aug, Acute seasonal allergic rhinitis, unspecified trigger J30.2 ; Hiatal hernia K44.9 and Chronic pain syndrome G89.4 [facility] [id number] [place] [address] 52766- 4505 Aug, [facility] [id number] [place] [address] 59764- 3958 Aug, [facility] [id number] [place] [address] 54489- 1401 Aug, Chronic obstructive pulmonary disease, unspecified COPD type J44.9 [facility] [id number] [place] [address] 75834- 4072 Aug, Anxiety F41.9 [facility] [id number] [place] [address] 07515- 3557 Aug, Chronic pain syndrome G89.4 [facility] [id number] [place] [address] 71772- 0307 Aug, Hiatal hernia K44.9 and Actinic keratosis L57.0 [facility] [id number] [place] [address] 71657- 9955 Aug, [facility] [id number] [place] [address] 26317- 4892 Aug, Anxiety F41.9 [facility] [id number] [place] [address] 51971- 2445 July, [facility] [address], [place] [address]- 2830 July, Hiatal hernia K44.9 [facility] [id number] [place] [address] 85209- 7776 July, [facility] [id number] [place] [address] 85117- 2805 July, Anxiety F41.9 and Chronic pain syndrome G89.4 [facility] [id number] [place] [address] 09904- 0499 July, [facility] [id number] [place] [address] 12847- 5467 Jun, Chronic pain syndrome G89.4 [facility] [id number] [place] [address] 58574- 6814 Jun, Chronic pain syndrome G89.4 [facility] [id number] [place] [address] 89988- 5159 Jun, [facility] [id number] [place] [address] 00342- 9447 Jun, Anxiety F41.9 [facility] [id number] [place] [address] 24596- 3141 Jun, Allergic rhinitis, unspecified allergic rhinitis trigger, unspecified rhinitis seasonality J30.9 [facility] [id number] [place] [address] 00339- 3362 Jun, [facility] [id number] [place] [address] 59077- 8836 May, Chronic pain syndrome G89.4 [facility] [id number] [place] [address] 76711- 0137 May, [facility] [id number] [place] [address] 88297- 7409 May, [facility] [id number] [place] [address] 82561- 2379 May, Anxiety F41.9 [facility] [address], [place] [address]- 0693 May, Type 2 diabetes mellitus with diabetic [...] Anxiety F41.9 and Chronic pain syndrome G89.4 [facility] [id number] [place] [address] 68931- 7668 May, Essential hypertension I10 ; Type 2 diabetes mellitus with diabetic neuropathy, without long-term current use of insulin E11.40 ; Mixed hyperlipidemia E78.2 ; Chronic obstructive pulmonary disease, unspecified COPD type J44.9 and Chronic GERD K21.9 [facility] [id number] [place] [address] 36911- 2275 May, [facility] [id number] [place] [address] 66005- 4599 May, [facility] [id number] [place] [address] 09872- 8419 May, Type 2 diabetes mellitus with diabetic neuropathy, without long-term current use of insulin E11.40 [facility] [id number] [place] [address] 36111- 6039 May, Dementia without behavioral disturbance, unspecified dementia type F03.90 [facility] [address] [place] [address] 93750- 3006 May, Type 2 diabetes mellitus with diabetic neuropathy, without long-term current use of insulin E11.40 ; Essential hypertension I10 ; Mixed hyperlipidemia E78.2 ; Chronic obstructive pulmonary disease, unspecified COPD type J44.9 ; Chronic GERD K21.9 and Osteoarthritis of both knees, unspecified osteoarthritis type M17.0 [facility] [id number] [place] [address] 51418- 0546 May, [facility] [id number] [place] [address] 88839- 0758 May, [facility] [id number] [place] [address] 69594- 2953 May, Anxiety F41.9 and Unspecified symptoms and signs involving cognitive functions and awareness R41.9 [facility] [id number] [place] [address] 96213- 8213 May, [facility] [id number] [place] [address] 07271- 8036 May, Type 2 diabetes mellitus with diabetic neuropathy, without long-term current use of insulin E11.40 ; Anxiety F41.9 and Chronic obstructive pulmonary disease, unspecified COPD type J44.9 [facility] [id number] [place] [address] 20853- 3109 May, [facility] [id number] [place] [address] 57705- 2993 May, [facility] [id number] [place] [address] 93507- 3960 May, [facility] [id number] [place] [address] 57202- 7600 May, Chronic obstructive pulmonary disease, unspecified COPD type J44.9 [facility] [id number] [place] [address] 45136- 8598 Mar, [facility] [id number] [place] [address] 98499- 2041 Mar, Arthritis of both knees M19.90 [facility] [id number] [place] [address] 76082- 9717 Mar, Type 2 diabetes mellitus with diabetic neuropathy, without long-term current use of insulin E11.40 [facility] [id number] [place] [address] 88969- 9644 Mar, [facility] [id number] [place] [address] 66650- 3966 Mar, Neck pain M54.2 and Weakness generalized R53.1 [facility] [id number] [place] [address] 78845- 0672 Mar, [facility] [address] 52154- 7213 Mar, Cervicalgia M54.2 and Impacted cerumen of both ears H61.23 [facility] [address] 83536- 8639 Mar, [facility] [id number] [place] [address] 63459- 5294 Mar, Type 2 diabetes mellitus with diabetic neuropathy, without long-term current use of insulin E11.40 [facility] [id number] [place] [address] 02728- 6358 Feb, [facility] [id number] [place] [address] 06922- 8352 Feb, Hypoxia R09.02 [facility] [id number] [place] [address] 94689- 0846 Feb, [facility] [id number] [place] [address] 28457- 3103 Feb, [facility] [id number] [place] [address] 69811- 1762 Feb, [facility] [id number] [place] [address] 44677- 0399 Feb, Type 2 diabetes mellitus with diabetic neuropathy, without long-term current use of insulin E11.40 [facility] [id number] [place] [address] 44684- 9868 Feb, Osteoarthritis of both knees, unspecified osteoarthritis type M17.0 [facility] [address] [place] [address]- 1701 14 Feb, 2016 [facility] [id number] [place] [address] 86686- 7451 Feb, [facility] [id number] [place] [address] 80861- 5649 Feb, [facility] [address] 55414- 8598 Jan, [facility] [id number] [place] [address] 62472- 9692 Jan, [facility] [address] 76651- 8224 Jan, [facility] [address] 47242- 2173 Jan, [facility] [address] 99814- 1368 Jan, Tinea pedis of both feet B35.3 [facility] [id number] [place] [address] 47329- 4356 Jan, Type 2 diabetes mellitus with diabetic [...] seasonality J30.9 and Encounter for immunization Z23 [facility] [id number] [place] [address] 99683- 8034 Jan, [facility] [id number] [place] [address] 01260- 9262 Jan, [facility] [id number] [place] [address] 90414- 6486 Dec, [facility] [address], [place] [address]- 4429 Dec, [facility] [address], [place] [address] -4013 Dec, Unspecified asthma with (acute) exacerbation J45.901 and Chronic obstructive pulmonary disease with (acute) exacerbation J44.1 [facility] [address], [place] [address]- 3259 Dec, Arthritis of both knees M19.90 and Acute medial meniscus tear, right, initial encounter S83.241A [facility] [id number] [place] [address] 22313- 0534 Dec, [facility] [address] [place] [address] 30318- 5096 Dec, [facility] [address] [place] [address] 79732- 3475 Dec, [facility] [address], [place] [address]- 9640 Dec, [facility] [address] [place] [address] 35389- 6608 Dec, History of pneumonia Z87.01 [facility] [address], [place] [address] Dec, [facility] [id number], [place] [address] Dec, [facility] [id number], [place] [address] Dec, [facility] [id number] [place] [address] Dec, [facility] [id number] [place] [address] Dec, [facility] [id number] [address] Dec, [facility] [address], [place] [address] 30 Nov, 2015 Cough R05 and Pneumonia due to infectious organism, unspecified laterality, unspecified part of lung J18.9 [facility] [id number], [place] [address] Nov, [place] [id number] [place] [address] Nov, Type 2 diabetes mellitus with diabetic [...] allergic rhinitis trigger, unspecified rhinitis seasonality J30.9 [facility] [id number] [place] [address] Nov, IMMUNIZATIONS No Known Immunizations SOCIAL HISTORY Never Assessed REASON FOR VISIT Refill request PLAN OF CARE VITAL SIGNS MEDICATIONS Unknown Medications RESULTS No Results PROCEDURES No Known procedures INSTRUCTIONS MEDICATIONS ADMINISTERED No Known Medications MEDICAL (GENERAL) HISTORY Type Description Date Medical History hypertension Medical History chronic obstructive pulmonary disease (COPD)-wears 2L O2 per [place], uses [employer] for home O2 Medical History Arthritis-knees and [...] TIA, [facility] 2014 Hospitalization History COPD exacerbation--[facility] 12/27/2015 [facility] - [facility] 02/2016 [facility] 11/2016 Hospitalization History COPD exacerbation - Dr Hartley Attending 12/2016 Hospitalization History Cough- [facility] [place] 04/10/2017 Hospitalization History [facility] - Possible Pneumonia 06/2017
--- OUTSIDE RECORDS SUMMARY | 2017-09-12 00:13 | XMS REPORT ---
Author Author ASIM LINARES [facility] Address [address] [place] [address] Care Team Providers Care Dike Supervisor Name Role Phone VIJAY ASIM Unavailable PROBLEMS Type Condition ICD9-CM Code VYM23-QT Code Onset Dates Condition Status SNOMED Code Problem Allergic rhinitis, unspecified allergic rhinitis trigger, unspecified rhinitis seasonality J30.9 Active 55505008 Problem Osteoarthritis of both knees, unspecified osteoarthritis type M17.0 Active 442898547 Problem Type 2 diabetes mellitus with diabetic neuropathy, without long-term current use of insulin E11.40 Active 65889818 Problem 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 Active 959595311 Problem Recurrent major depressive disorder, in partial 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 Active 82370033 Problem Chronic GERD K21.9 Active 492660588 Problem Chronic pain syndrome G89.4 Active 326879563 Problem Nocturnal hypoxemia G47.34 Active 180135058 Problem Gastroesophageal reflux disease without esophagitis K21.9 Active 949562265 Problem Elevated transaminase level R74.0 Active 232479266 Problem 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 Active 882607601 Problem Chronic obstructive pulmonary disease, unspecified COPD type J44.9 Active 85354041 Problem Mixed hyperlipidemia E78.2 Active 276342799 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 Active 8269908 Problem Essential hypertension I10 Active 44336546 Problem Hypoxia R09.02 Active 437501381 Problem Anxiety F41.9 Active 36584102 ALLERGIES No Information ENCOUNTERS Encounter Location Date Diagnosis [facility] [place] [address] [address] Aug, [facility] [place] [address], [place] [address] July, Gastroesophageal reflux disease without esophagitis K21.9 [facility] [place] [id number] [place] [address] 26924- 1971 July, [facility] [id number] [place] [address] 79395- 7030 July, [facility] [place] [id number] [place] [address] 54245- 8675 July, [facility] [place] [id number] [place] [address] 09333- 5213 July, Essential hypertension I10 and Chronic pain syndrome G89.4 [facility] [id number] [place] [address] 50189- 1029 July, Gastroesophageal reflux disease without esophagitis K21.9 [facility] [address] [address]- [address] July, 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 [facility] [address] 71627- 8566 July, Chronic obstructive pulmonary disease, unspecified COPD type J44.9 ; Nocturnal cough R05 ; 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 and Recurrent major depressive disorder, in partial 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 [facility] [place] [id number] [place] [address] 83355- 0133 July, [facility] [id number] [place] [address] 17254- 7943 July, Type 2 diabetes mellitus with diabetic neuropathy, without long-term current use of insulin E11.40 [facility] [id number] [place] [address] 10069- 4239 July, Nocturnal hypoxemia G47.34 ; Chronic obstructive pulmonary disease, unspecified COPD type J44.9 and Nocturnal cough R05 [facility] [place] [id number] [place] [address] 25554- 5919 July, [facility] [id number] [place] [address] 60616- 8885 July, [facility] [id number] [place] [address] 35486- 3368 July, [facility] [place] [id number] [place] [address] 27102- 4414 Jun, Chronic pain syndrome G89.4 [facility] [place] [id number] [place] [address] 87035- 9552 Jun, [facility] [place] [id number] [place] [address] 24832- 3175 Jun, [facility] [place] [id number] [place] [address] 28052- 3759 Jun, 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 [facility] [address] 42964- 2561 Jun, [facility] [place] [id number] [place] [address] 56635- 3172 Jun, Gastroesophageal reflux disease without esophagitis K21.9 [facility] [place] [id number] [place] [address] 76837- 0722 Jun, Allergic rhinitis, unspecified allergic rhinitis trigger, unspecified rhinitis seasonality J30.9 [facility] [place] [id number] [place] [address] 57691- 3797 Jun, Chronic pain syndrome G89.4 [facility] [place] [id number] [place] [address] 88099- 0985 May, [facility] [id number] [place] [address] 57014- 2272 May, COPD with acute exacerbation J44.1 [facility] [place] [id number] [place] [address] 90429- 9786 14 May, 2017 Type 2 diabetes mellitus with diabetic neuropathy, without long-term current use of insulin E11.40 ; COPD with acute exacerbation J44.1 ; Hypoxia R09.02 ; Chronic pain syndrome G89.4 ; Yeast dermatitis B37.2 ; 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 and 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 [facility] [place] [address] [address] 2546 May, [facility] [place] [id number] [place] [address] 82914 2546 May, Chronic pain syndrome G89.4 [facility] [place] [address], [place] [address] 2546 May, [facility] [place] [id number] [place] [address] 62147 2546 May, [facility] [place] [id number] [place] [address] 47329 2546 May, Mixed hyperlipidemia E78.2 [facility] [place] [id number] [place] [address] 32546 2546 May, Chronic pain syndrome G89.4 [facility] [place] [id number] [place] [address] 92039 2546 May, Anxiety F41.9 and Chronic pain syndrome G89.4 [facility] [place] [address] [address] 2546 Mar, [facility] [place] [id number] [place] [address] 59503 2546 Mar, [facility] [place] [address] [address] 2546 Mar, [facility] [place] [address], [place] [address] 2546 Mar, [facility] [place] [address] [address] 2546 Mar, [facility] [place] [id number] [place] [address] 12556 2546 Mar, Anxiety F41.9 and Chronic pain syndrome G89.4 [facility] [place] [address] [address] 2546 Mar, Medicare annual wellness visit, initial [...] Hiatal hernia K44.9 and Actinic keratosis L57.0 [facility] [place] [address] 50480- 3099 Mar, [facility] [place] [address] 41948- 6105 Mar, Chronic pain syndrome G89.4 [facility] [place] [address] 79443- 4340 Feb, [facility] [place] [id number] [place] [address] 30739- 8479 Feb, Chronic pain syndrome G89.4 [facility] [place] [id number] [place] [address] 27896- 6027 Feb, [facility] [place] [id number] [place] [address] 62322- 9743 Feb, [facility] [place] [address] 07323- 0827 Feb, Anxiety F41.9 [facility] [place] [id number] [place] [address] 41263- 1366 Feb, [facility] [place] [address] [id number]- 9985 Feb, Chronic pain syndrome G89.4 [facility] [place] [id number] [place] [address] 61927- 0306 Jan, Essential hypertension I10 [facility] [id number] [place] [address] 34392- 0211 Jan, Chronic pain syndrome G89.4 [place] [address] 7[address]- 1966 Jan, [facility] [place] [id number] [place] [address] 03722- 7545 Jan, Anxiety F41.9 [place] [address] 91674- 9999 Jan, Encounter for immunization Z23 and Community acquired pneumonia, unspecified laterality J18.9 [place] [address] 794310- 4434 Jan, Type 2 diabetes mellitus with diabetic neuropathy, without long-term current use of insulin E11.40 [place] [address] 81928- 3351 Dec, Anxiety F41.9 and Chronic pain syndrome G89.4 [place] [id number] [place] [address] 69697- 3741 Dec, Chronic pain syndrome G89.4 and Essential hypertension I10 [place] [id number] [place] [address] 08918- 5544 Dec, [place] [id number] [place] [address] 79357- 9423 Dec, Anxiety F41.9 [facility] [place] [id number] [place] [address] 49266- 5566 Dec, [facility] [place] [id number] [place] [address] 86658- 0581 Dec, Type 2 diabetes mellitus with diabetic neuropathy, without long-term current use of insulin E11.40 ; Lactic acidosis E87.2 ; Chronic obstructive pulmonary disease, unspecified COPD type J44.9 and Encounter for immunization Z23 [place] [address] 64712- 6843 Dec, Chronic pain syndrome G89.4 [facility] [place] [id number] [place] [address]- 4176 Nov, [facility] [id number] [place] [address] 86515 2549 Nov, Chronic pain syndrome G89.4 [facility] [place] [address] [address]- 8149 Nov, [facility] [address] [facility] [id number] [place] [address] 39410- 8941 Nov, [facility] [id number] [place] [address] 09151- 4131 15 Nov, 2016 Anxiety F41.9 [facility] [id number] [place] [address] 40499- 1236 11 Nov, 2016 Anxiety F41.9 [facility] [place] [id number] [place] [address] 66967- 6145 08 Nov, 2016 [facility] [id number] [place] [address] 27035- 6039 05 Nov, 2016 [facility] [id number] [place] [address] 62249- 5760 Nov, [facility] [address] [address]- 9054 Oct, [facility] [place] [address], [place] [address]- 5674 Oct, [facility] [address] [address]- 4906 Oct, [facility] [id number] [place] [address] 80403- 0100 Oct, Essential hypertension I10 and Chronic pain syndrome G89.4 [facility] [place] [address] [address]- 1086 Oct, Anxiety F41.9 [facility] [id number] [address]- 8901 Oct, [facility] [place] [id number] [place] [address] 13166- 0777 Oct, Chronic pain syndrome G89.4 [facility] [id number] [place] [address] 50073 -2043 Oct, Sore throat J02.9 and Acute nasopharyngitis (common cold) J00 [facility] [place] [id number] [place] [address] 95318- 7416 Sep, [facility] [place] [id number] [place] [address] 46933- 7354 Sep, COPD exacerbation J44.1 [facility] [place] [id number] [place] [address] 11870- 4695 Sep, Chronic pain syndrome G89.4 [facility] [place] [id number] [place] [address] 42296- 3856 Sep, Essential hypertension I10 [facility] [place] [id number] [place] [address] 18716- 4771 Sep, [facility] [place] [id number] [place] [address] 89911- 6809 Sep, [facility] [place] [id number] [place] [address] 58173- 2147 Sep, Anxiety F41.9 [facility] [place] [id number] [place] [address] 19010- 3052 Sep, Chronic pain syndrome G89.4 [facility] [place] [id number] [place] [address] 72532- 6522 Sep, [facility] [place] [id number] [place] [address] 85243- 0987 Aug, Acute seasonal allergic rhinitis, unspecified trigger J30.2 ; Hiatal hernia K44.9 and Chronic pain syndrome G89.4 [facility] [place] [address], [place] [address]- 8139 Aug, [facility] [place] [id number] [place] [address] 43987- 2954 Aug, [facility] [place] [id number] [place] [address] 23280- 6335 Aug, Chronic obstructive pulmonary disease, unspecified COPD type J44.9 [facility] [place] [id number] [place] [address] 56926- 1334 14 Aug, 2016 Anxiety F41.9 [facility] [place] [id number] [place] [address] 48418- 5617 08 Aug, 2016 Chronic pain syndrome G89.4 [facility] [place] [id number] [place] [address] 26499- 5039 07 Aug, 2016 Hiatal hernia K44.9 and Actinic keratosis L57.0 [facility] [place] [id number] [place] [address] 18336- 9272 Aug, [facility] [place] [id number] [place] [address] 02850- 0706 Aug, Anxiety F41.9 [facility] [place] [id number] [place] [address] 91967- 5012 July, [facility] [place] [id number] [place] [address] 30247- 5154 July, Hiatal hernia K44.9 [facility] [place] [id number] [place] [address] 89586- 6061 July, [facility] [place] [id number] [place] [address] 93736- 0902 July, Anxiety F41.9 and Chronic pain syndrome G89.4 [facility] [place] [id number] [place] [address] 27286- 2095 July, [facility] [place] [id number] [place] [address] 79124- 4998 Jun, Chronic pain syndrome G89.4 [facility] [place] [id number] [place] [address] 49229- 6829 Jun, Chronic pain syndrome G89.4 [facility] [place] [id number] [place] [address] 26224- 3518 Jun, [facility] [place] [id number] [place] [address] 36937- 6748 Jun, Anxiety F41.9 [facility] [place] [id number] [place] [address] 19543- 9193 Jun, Allergic rhinitis, unspecified allergic rhinitis trigger, unspecified rhinitis seasonality J30.9 [place] [id number] [place] [address] 58167- 2889 Jun, [place] [id number] [place] [address] 55339- 1977 May, Chronic pain syndrome G89.4 [facility] [place] [id number] [place] [address] 59293- 6044 May, [place] [id number] [place] [address] 20903- 3360 May, [place] [id number] [place] [address] 55792- 7760 May, Anxiety F41.9 [place] [id number] [place] [address] 88966- 2420 May, Type 2 diabetes mellitus with diabetic [...] Anxiety F41.9 and Chronic pain syndrome G89.4 [facility] [place] [id number] [place] [address] 97015- 2696 May, Essential hypertension I10 ; Type 2 diabetes mellitus with diabetic neuropathy, without long-term current use of insulin E11.40 ; Mixed hyperlipidemia E78.2 ; Chronic obstructive pulmonary disease, unspecified COPD type J44.9 and Chronic GERD K21.9 [place] [id number] [place] [address] 59735- 6932 May, [place] [id number] [place] [address] 17139- 0297 May, [place] [id number] [place] [address] 25966- 3046 May, Type 2 diabetes mellitus with diabetic neuropathy, without long-term current use of insulin E11.40 [facility] [id number] [place] [address] 42921- 7245 May, Dementia without behavioral disturbance, unspecified dementia type F03.90 [place] [id number] [place] [address] 48643- 8809 May, Type 2 diabetes mellitus with diabetic neuropathy, without long-term current use of insulin E11.40 ; Essential hypertension I10 ; Mixed hyperlipidemia E78.2 ; Chronic obstructive pulmonary disease, unspecified COPD type J44.9 ; Chronic GERD K21.9 and Osteoarthritis of both knees, unspecified osteoarthritis type M17.0 [place] [id number] [place] [address] 78367- 7061 May, [place] [id number] [place] [address] 90465- 2322 May, [place] [id number] [place] [address] 87442- 7728 May, Anxiety F41.9 and Unspecified symptoms and signs involving cognitive functions and awareness R41.9 [place] [id number] [place] [address] 09633- 9194 May, [place] [address] 61667- 4775 14 May, 2016 Type 2 diabetes mellitus with diabetic neuropathy, without long-term current use of insulin E11.40 ; Anxiety F41.9 and Chronic obstructive pulmonary disease, unspecified COPD type J44.9 [place] [id number] [place] [address] 97267- 3929 May, [place] [id number] [place] [address] 07944- 1532 May, [place] [address] 80472- 2258 May, [place] [address] 34999- 8040 May, Chronic obstructive pulmonary disease, unspecified COPD type J44.9 [place] [address] 14808- 6311 Mar, [place] [address] 55822- 8004 Mar, Arthritis of both knees M19.90 [place] [address] 55213- 0908 Mar, Type 2 diabetes mellitus with diabetic neuropathy, without long-term current use of insulin E11.40 [place] [id number] [place] [address] 50883- 5189 Mar, [place] [address] 16159- 1409 Mar, Neck pain M54.2 and Weakness generalized R53.1 [place] [address] 39616- 6141 Mar, [place] [address] 44883- 1352 Mar, Cervicalgia M54.2 and Impacted cerumen of both ears H61.23 [place] [address] 52672[address] Mar, [facility], [place], [facility] [id number] [address] Mar, Type 2 diabetes mellitus with diabetic neuropathy, without long-term current use of insulin E11.40 [facility], [place], [facility] [id number] [address] Feb, [facility], [place], [facility] [address] [place] [id number] [place] [address] Feb, Hypoxia R09.02 [facility], [place], [facility] [address] [place] [id number] [place] [id number]- [phone] Feb, [facility], [place], [facility] [address] [place] [id number] [place] [id number]- [address] Feb, [facility], [place], [facility] [id number] [place] [address]- [address] Feb, [facility], [place], [facility] [address] [place] [id number] [place] [address]- [address] Feb, Type 2 diabetes mellitus with diabetic neuropathy, without long-term current use of insulin E11.40 [facility], [place], [facility] [id number] [place] [address]- [address] Feb, Osteoarthritis of both knees, unspecified osteoarthritis type M17.0 [facility], [place], [facility] [id number] [address] Feb, [facility], [place], [facility] [address] [id number] [address] Feb, [facility], [place], [facility] [id number], [place] [address] Feb, [facility], [place], [facility] [id number] [place] [phone] Jan, [facility] [place], [facility] [id number] [address] Jan, [facility] [place], [facility] [id number] [place] [phone]- [phone] Jan, [place] [id number] [place] [address]- 7456 Jan, [place] [id number] [place] [address]- [address]84 Jan, Tinea pedis of both feet B35.3 [place] [address] [address] Jan, Type 2 diabetes mellitus with diabetic [...] seasonality J30.9 and Encounter for immunization Z23 [place] [id number] [place] [address]- 5976 Jan, [place] [id number] [place] [address]- 3963 Jan, [place] [id number] [place] [address]- 2762 Dec, [place] [id number] [place] [address] 244[address]- 3017 Dec, [facility] [id number] [place] [address] Dec, Unspecified asthma with (acute) exacerbation J45.901 and Chronic obstructive pulmonary disease with (acute) exacerbation J44.1 [place] [id number] [place] [address]- [address]87 Dec, Arthritis of both knees M19.90 and Acute medial meniscus tear, right, initial encounter S83.241A [place] [id number], [place] [address] Dec, [facility] [place], [facility] [id number] [place] [address]- [address]246 Dec, [facility] [place], [facility] [id number], [place] [address] 14 Dec, 2015 [facility] [place], [facility] [id number] [place] [address]- [address] Dec, [facility] [place], [facility] [id number], [place] [address] Dec, History of pneumonia Z87.01 [facility] [place] [id number] [place] [address]- 7221 10 Dec, 2015 [facility] [place] [id number] [place] [address]- 0542 Dec, [facility] [place] [id number] [place] [address]- [phone] Dec, [facility] [place] [id number] [address] Dec, [facility] [place] [id number], [place] [address] Dec, [facility] [place] [id number], [place] [address] Dec, [facility] [place] [id number], [place] [address] 30 Nov, 2015 Cough R05 and Pneumonia due to infectious organism, unspecified laterality, unspecified part of lung J18.9 [facility] [place] [id number], [place] [address] Nov, [facility] [place] [id number], [place] [address] Nov, Type 2 diabetes mellitus with diabetic [...] allergic rhinitis trigger, unspecified rhinitis seasonality J30.9 [facility] [place] [address] [facility] [id number] [address] 12 Nov, 2015 IMMUNIZATIONS No Known Immunizations SOCIAL HISTORY Never Assessed REASON FOR VISIT Refill request PLAN OF CARE VITAL SIGNS MEDICATIONS Unknown Medications RESULTS No Results PROCEDURES No Known procedures INSTRUCTIONS MEDICATIONS ADMINISTERED No Known Medications MEDICAL (GENERAL) HISTORY Type Description Date Medical History hypertension Medical History chronic obstructive pulmonary disease (COPD)-wears 2L O2 per [place], uses [place] for home O2 Medical History Arthritis-knees and [...] History TURP 2003 Surgical History EGD Colonoscopy [facility] 06/06/2016 Hospitalization History TIA, [facility] 2014 Hospitalization History COPD exacerbation--[facility] 12/27/2015 [facility] 02/2016 [facility] History [facility] 11/2016 Hospitalization History COPD exacerbation - Dr Hartley Attending 12/2016 Hospitalization History Cough- [facility] [place] 04/10/2017 Hospitalization History [facility] - Possible Pneumonia 06/2017
--- OUTSIDE RECORDS SUMMARY | 2017-09-12 00:16 | XMS REPORT ---
Author Author ASIM LINARES [facility] Address [address] [place] [address] Care Team Providers Care Professor Of Theatre Name Role Phone VIJAY ASIM Unavailable PROBLEMS Type Condition ICD9-CM Code SVV16-XT Code Onset Dates Condition Status SNOMED Code Problem Allergic rhinitis, unspecified allergic rhinitis trigger, unspecified rhinitis seasonality J30.9 Active 51933984 Problem Osteoarthritis of both knees, unspecified osteoarthritis type M17.0 Active 509306512 Problem Type 2 diabetes mellitus with diabetic neuropathy, without long-term current use of insulin E11.40 Active 33884744 Problem 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 Active 407643041 Problem Recurrent major depressive disorder, in partial 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 Active 20166230 Problem Chronic GERD K21.9 Active 826496018 Problem Chronic pain syndrome G89.4 Active 405499120 Problem Nocturnal hypoxemia G47.34 Active 655639439 Problem Gastroesophageal reflux disease without esophagitis K21.9 Active 063983367 Problem Elevated transaminase level R74.0 Active 502134989 Problem 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 Active 182028928 Problem Chronic obstructive pulmonary disease, unspecified COPD type J44.9 Active 20746987 Problem Mixed hyperlipidemia E78.2 Active 247988394 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 [id number] [address] Aug, [facility] [id number] [address] 1041 Aug, Chronic pain syndrome G89.4 [facility] [id number] [place] [address] 79313- 5523 Aug, [facility] [id number] [place] [address] 63116- 4775 Aug, [facility] [id number] [place] [address] 68215- 4613 July, Gastroesophageal reflux disease without esophagitis K21.9 [facility] [id number] [place] [address] 14622- 1794 July, [facility] [id number] [place] [address] 51028- 6871 July, [facility] [id number] [place] [address] 19062- 4227 July, [facility] [id number] [place] [address] 73019- 3586 July, Essential hypertension I10 and Chronic pain syndrome G89.4 [place] [id number] [place] [address] 25177- 9141 July, Gastroesophageal reflux disease without esophagitis K21.9 [place] [id number] [place] [address] 94865- 1333 July, 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 [place] [id number] [place] [address] 38973- 8925 July, Chronic obstructive pulmonary disease, unspecified COPD type J44.9 ; Nocturnal cough R05 ; 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 [id number] [place] [address] 96472- 2288 July, Type 2 diabetes mellitus with diabetic neuropathy, without long-term current use of insulin E11.40 [place] [id number] [place] [address] 16330- 4306 July, Nocturnal hypoxemia G47.34 ; Chronic obstructive pulmonary disease, unspecified COPD type J44.9 and Nocturnal cough R05 [facility] [id number] [place] [address] 77777- 8355 July, [facility] [id number] [place] [address] 38139- 0588 July, [facility] [address] 8[address]14- 1954 July, [facility] [address] 75075- 9557 Jun, Chronic pain syndrome G89.4 [facility] [address] 90215- 3665 Jun, [facility] [address] 13492- 9690 Jun, [facility] [address] 80271- 8543 Jun, 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 [facility] [id number] [place] [address] 59894- 6120 Jun, [facility] [address] 18042- 6667 Jun, Gastroesophageal reflux disease without esophagitis K21.9 [facility] [id number] [place] [address] 96707- 0126 Jun, Allergic rhinitis, unspecified allergic rhinitis trigger, unspecified rhinitis seasonality J30.9 [facility] [id number] [place] [address] 95291- 5610 Jun, Chronic pain syndrome G89.4 [facility] [address] 77179- 4856 May, [facility] [id number] [place] [address] 50693- 2737 May, COPD with acute exacerbation J44.1 [facility] [id number] [place] [address] 06635- 9400 14 May, 2017 Type 2 diabetes mellitus with diabetic neuropathy, without long-term current use of insulin E11.40 ; COPD with acute exacerbation J44.1 ; Hypoxia R09.02 ; Chronic pain syndrome G89.4 ; Yeast dermatitis B37.2 ; 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 and 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 [facility] [address] 91926- 3374 May, [facility] [id number] [place] [address] 57234- 5216 May, Chronic pain syndrome G89.4 [facility] [id number] [place] [address] 15568- 4841 May, [place] [id number] [place] [address] 68541- 6514 May, [facility] [id number] [place] [address] 54578- 9017 May, Mixed hyperlipidemia E78.2 [facility] [address] 70568- 7678 15 May, 2017 Chronic pain syndrome G89.4 [facility] [id number] [place] [address] 89970- 8935 May, Anxiety F41.9 and Chronic pain syndrome G89.4 [facility] [id number] [place] [address] 70542- 5007 Mar, [facility] [id number] [place] [address] 42670- 5499 Mar, [facility] [id number] [place] [address] 76074- 8228 Mar, [facility] [id number] [place] [address] 60842- 4093 Mar, [facility] [id number] [place] [address] 06795- 0450 Mar, [facility] [id number] [place] [address] 75010- 7204 Mar, Anxiety F41.9 and Chronic pain syndrome G89.4 [facility] [id number] [place] [address] 12365- 8944 Mar, Medicare annual wellness visit, initial Z00.00 [...] Hiatal hernia K44.9 and Actinic keratosis L57.0 [place] [id number] [place] [address] 51016- 2059 Mar, [place] [id number] [place] [address] 17382- 0987 Mar, Chronic pain syndrome G89.4 [place] [id number] [place] [address] 86625- 8824 Feb, [place] [id number] [place] [address] 25677- 9437 Feb, Chronic pain syndrome G89.4 [facility] [id number], [place] [address]- 0218 Feb, [place] [id number] [place] [address] 73811- 7222 Feb, [place] [id number] [place] [address] 53352- 2870 Feb, Anxiety F41.9 [place] [id number] [place] [address] 43643- 3366 Feb, [facility] [address] 28539- 5914 Feb, Chronic pain syndrome G89.4 [facility] [id number] [place] [address] 72974- 7270 Jan, Essential hypertension I10 [facility] [address] 86175- 8160 Jan, Chronic pain syndrome G89.4 [facility] [id number] [place] [address] 94469- 4881 Jan, [place] [address] 45771- 2435 Jan, Anxiety F41.9 [place] [address] 66254- 9167 Jan, Encounter for immunization Z23 and Community acquired pneumonia, unspecified laterality J18.9 [facility] [id number] [place] [address] 33277- 7111 Jan, Type 2 diabetes mellitus with diabetic neuropathy, without long-term current use of insulin E11.40 [place] [id number] [place] [address] 23637- 5443 Dec, Anxiety F41.9 and Chronic pain syndrome G89.4 [facility] [id number] [place] [address] 65486- 0171 Dec, Chronic pain syndrome G89.4 and Essential hypertension I10 [facility] [id number] [place] [address] 38964- 5572 Dec, [facility] [id number] [place] [address] 86791- 9822 Dec, Anxiety F41.9 [facility] [id number] [place] [address] 32633- 5776 Dec, [place] [id number], [place] [address]- 4348 Dec, Type 2 diabetes mellitus with diabetic neuropathy, without long-term current use of insulin E11.40 ; Lactic acidosis E87.2 ; Chronic obstructive pulmonary disease, unspecified COPD type J44.9 and Encounter for immunization Z23 [facility] [id number] [place] [address] 90122 2546 Dec, Chronic pain syndrome G89.4 [facility] [id number] [place] [address] 50365 2546 Nov, [facility] [id number] [place] [address] 87577 2546 Nov, Chronic pain syndrome G89.4 [facility] [id number] [place] [address] 00532 2546 Nov, [facility] [id number] [place] [address] 86280 2546 Nov, [facility] [id number] [place] [address] 06555 254 Nov, Anxiety F41.9 [facility] [id number] [place] [address] 58578 2546 Nov, Anxiety F41.9 [facility] [id number], [place] [address] 2546 Nov, [facility] [id number] [place] [address] 10654 2543 Nov, [facility] [id number] [place] [address] 15033 [address], [facility] [id number] [place] [address] 08243- 2546 Oct, [facility] [id number], [place] [address]- 254 Oct, [facility] [id number] [place] [address] 33802- 1082 Oct, [facility] [id number] [place] [address] 15887- 3505 Oct, Essential hypertension I10 and Chronic pain syndrome G89.4 [facility] [id number] [place] [address] 90976- 9281 Oct, Anxiety F41.9 [facility] [id number] [place] [address] 12923- 6624 Oct, [facility] [id number] [place] [address] 72492- 4283 Oct, Chronic pain syndrome G89.4 [facility] [id number] [place] [address] 97186 -0557 Oct, Sore throat J02.9 and Acute nasopharyngitis (common cold) J00 [facility] [id number] [place] [address] 73669- 1649 Sep, [facility] [id number] [place] [address] 43272- 1273 Sep, COPD exacerbation J44.1 [facility] [id number] [place] [address] 09324- 8269 Sep, Chronic pain syndrome G89.4 [facility] [id number] [place] [address] 32950- 1527 Sep, Essential hypertension I10 [facility] [id number] [place] [address] 66074- 6537 Sep, [facility] [id number] [place] [address] 50003- 5112 Sep, [facility] [id number] [place] [address] 08939- 0149 Sep, Anxiety F41.9 [facility] [id number] [place] [address] 62730- 5181 Sep, Chronic pain syndrome G89.4 [facility] [id number] [place] [address] 99755- 8951 Sep, [facility] [id number] [place] [address] 47073- 0018 Aug, Acute seasonal allergic rhinitis, unspecified trigger J30.2 ; Hiatal hernia K44.9 and Chronic pain syndrome G89.4 [facility] [address] 18918- 4576 Aug, [facility] [id number] [place] [address] 73164- 6274 Aug, [facility] [address] 56593- 1029 Aug, Chronic obstructive pulmonary disease, unspecified COPD type J44.9 [facility] [id number] [place] [address] 95857- 8434 Aug, Anxiety F41.9 [facility] [id number] [place] [address] 89052- 5979 08 Aug, 2016 Chronic pain syndrome G89.4 [facility] [id number] [place] [address] 68049- 1052 Aug, Hiatal hernia K44.9 and Actinic keratosis L57.0 [facility] [id number] [place] [address] 88621- 8240 Aug, [facility] [id number] [place] [address] 63616- 7437 Aug, Anxiety F41.9 [facility] [id number] [place] [address] 69121- 8992 July, [facility] [id number] [place] [address] 45973- 6802 July, Hiatal hernia K44.9 [facility] [id number] [place] [address] 54670- 1061 July, [facility] [id number] [place] [address] 55929- 3353 July, Anxiety F41.9 and Chronic pain syndrome G89.4 [facility] [id number] [place] [address] 61551752- 0557 July, [facility] [id number] [place] [address] 03616- 5475 Jun, Chronic pain syndrome G89.4 [facility] [id number] [place] [address] 70093- 4043 Jun, Chronic pain syndrome G89.4 [facility] [id number] [place] [address] 55566- 2626 Jun, [facility] [id number] [place] [address] 24819- 0269 Jun, Anxiety F41.9 [facility] [id number] [place] [address] 05331- 0877 Jun, Allergic rhinitis, unspecified allergic rhinitis trigger, unspecified rhinitis seasonality J30.9 [facility] [id number] [place] [address] 83840- 4329 Jun, [facility] [id number] [place] [address] 54811- 2731 May, Chronic pain syndrome G89.4 [facility] [id number] [place] [address] 51872- 3772 May, [facility] [id number] [place] [address] 50236- 7538 May, [facility] [id number] [place] [address] 83890- 7094 May, Anxiety F41.9 [facility] [id number] [place] [address] 21919- 2707 May, Type 2 diabetes mellitus with diabetic [...] Anxiety F41.9 and Chronic pain syndrome G89.4 [place] [id number] [place] [address] 36018- 5591 May, Essential hypertension I10 ; Type 2 diabetes mellitus with diabetic neuropathy, without long-term current use of insulin E11.40 ; Mixed hyperlipidemia E78.2 ; Chronic obstructive pulmonary disease, unspecified COPD type J44.9 and Chronic GERD K21.9 [place] [id number] [place] [address] 41825- 4079 May, [place] [id number] [place] [address] 16932- 5090 May, [place] [address] 02879- 1673 May, Type 2 diabetes mellitus with diabetic neuropathy, without long-term current use of insulin E11.40 [place] [id number] [place] [address] 25914- 9751 May, Dementia without behavioral disturbance, unspecified dementia type F03.90 [place] [id number] [place] [address] 83501- 7654 May, Type 2 diabetes mellitus with diabetic neuropathy, without long-term current use of insulin E11.40 ; Essential hypertension I10 ; Mixed hyperlipidemia E78.2 ; Chronic obstructive pulmonary disease, unspecified COPD type J44.9 ; Chronic GERD K21.9 and Osteoarthritis of both knees, unspecified osteoarthritis type M17.0 [place] [id number] [place] [address] 51906- 2175 May, [place] [address] 10357- 3614 May, [place] [id number] [place] [address] 95512- 6835 May, Anxiety F41.9 and Unspecified symptoms and signs involving cognitive functions and awareness R41.9 [place] [id number] [place] [address] 80594- 1639 May, [place] [id number] [place] [address] 45518- 3023 May, Type 2 diabetes mellitus with diabetic neuropathy, without long-term current use of insulin E11.40 ; Anxiety F41.9 and Chronic obstructive pulmonary disease, unspecified COPD type J44.9 [place] [id number] [place] [address] 50887- 7690 May, [place] [id number] [place] [address] 26669- 5699 May, [place] [id number] [place] [address] 78311- 8904 May, [place] [id number] [place] [address] 35560- 5960 May, Chronic obstructive pulmonary disease, unspecified COPD type J44.9 [place] [id number] [place] [address] 95400- 5840 Mar, [place] [id number] [place] [address] 79726- 8342 Mar, Arthritis of both knees M19.90 [place] [id number] [place] [address] 26408- 4517 Mar, Type 2 diabetes mellitus with diabetic neuropathy, without long-term current use of insulin E11.40 [place] [id number] [place] [address] 99856- 4535 Mar, [place] [id number] [place] [address] 07076- 9330 Mar, Neck pain M54.2 and Weakness generalized R53.1 [place] [id number] [place] [address] 47643- 9858 04 Mar, 2016 [facility] [id number] [place] [address] 27451- 0914 Mar, Cervicalgia M54.2 and Impacted cerumen of both ears H61.23 [facility] [id number] [place] [address] 12330- 5480 Mar, [facility] [id number] [place] [address] 13350- 7916 Mar, Type 2 diabetes mellitus with diabetic neuropathy, without long-term current use of insulin E11.40 [facility] [id number] [place] [address] 23534- 0401 29 Feb, 2016 [facility] [id number] [place] [address] 48442- 1815 Feb, [address]09[address]02 [facility] [id number] [place] [address] 17459- 3980 Feb, [facility] [id number] [place] [address] 80775- 0559 Feb, [facility] [id number] [place] [address] 72022- 1493 Feb, [facility] [id number] [place] [address] 68506- 3669 16 Feb, 2016 Type 2 diabetes mellitus with diabetic neuropathy, without long-term current use of insulin E11.40 [facility] [id number] [place] [address] 13589- 4142 15 Feb, 2016 Osteoarthritis of both knees, unspecified osteoarthritis type M17.0 [facility] [id number] [place] [address] 74751- 0823 14 Feb, 2016 [facility] [id number] [place] [address] 23147- 7831 12 Feb, 2016 [facility] [address] [place] [address] Feb, [facility] [id number] [place] [address] 07510- 7330 Jan, [facility] [id number] [place] [address] 41407- 2524 Jan, [facility] [id number] [place] [address] [address] Jan, [facility] [id number] [place] [address] 44942- [address]192 Jan, [facility] [address] [address]- [address] Jan, Tinea pedis of both feet B35.3 [facility] [id number] [place] [address] 08363- 1734 Jan, Type 2 diabetes mellitus with diabetic [...] seasonality J30.9 and Encounter for immunization Z23 [facility] [id number] [place] [address] 805[address]- 8343 Jan, [facility] [id number] [place] [address]- 6037 Jan, [facility] [id number] [place] [address] 9[address]- [address]574 Dec, [facility] [id number] [place] [address] 95443- 1814 Dec, [facility] [id number] [place] [address] [id number] -2662 Dec, Unspecified asthma with (acute) exacerbation J45.901 and Chronic obstructive pulmonary disease with (acute) exacerbation J44.1 [facility] [id number] [place] [address] 38774- 6714 Dec, Arthritis of both knees M19.90 and Acute medial meniscus tear, right, initial encounter S83.241A [facility] [id number] [place] [address] 53104- 7119 Dec, [facility] [id number] [place] [address] 32348- 6802 Dec, [facility] [id number] [place] [address] 47414- 0141 Dec, [facility] [id number] [place] [address] 42361- 9476 Dec, [facility] [id number] [place] [address] 62244- 0839 Dec, History of pneumonia Z87.01 [facility] [id number] [place] [address] 02798- 2873 Dec, [facility] [id number] [place] [address] 61733- 0518 Dec, [facility] [id number] [place] [address] 853[address]- 5210 Dec, [facility] [id number] [place] [address] 24307- 7626 Dec, [facility] [id number] [address] Dec, [facility] [id number] [place] [address] 74502- 8410 Dec, [facility] [id number] [address] Nov, Cough R05 and Pneumonia due to infectious organism, unspecified laterality, unspecified part of lung J18.9 [facility] [address] [facility] [id number] [place] [address] Nov, [address] [address] [address] [facility] [id number] [address] Nov, Type 2 diabetes mellitus with diabetic [...] allergic rhinitis trigger, unspecified rhinitis seasonality J30.9 [address] [address] [address] [facility] [id number] [address] Nov, IMMUNIZATIONS No Known Immunizations SOCIAL HISTORY Never Assessed REASON FOR VISIT Refill request PLAN OF CARE VITAL SIGNS MEDICATIONS Unknown Medications RESULTS No Results PROCEDURES No Known procedures INSTRUCTIONS MEDICATIONS ADMINISTERED No Known Medications MEDICAL (GENERAL) HISTORY Type Description Date Medical History hypertension Medical History chronic obstructive pulmonary disease (COPD)-wears 2L O2 per ID, uses [place] for home O2 Medical History [...] hiatal hernia repair 2007 Surgical History cataracts 2010 Surgical History wrist fracture 2003 Surgical History TURP 2003 Surgical History EGD Colonoscopy Kid 06/06/2016 Hospitalization History TIA, [facility] 2014 Hospitalization History COPD exacerbation--[facility] 12/27/2015 [facility] History [facility] - fall 02/2016 Hospitalization History [facility] pneumonia 11/2016 Hospitalization History COPD exacerbation - Dr Hartley Attending 12/2016 Hospitalization History Cough- [facility] [place] 04/10/2017 Hospitalization History [facility] - Possible Pneumonia 06/2017
--- OUTSIDE RECORDS SUMMARY | 2017-09-12 00:19 | XMS REPORT ---
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 Active 545367845 Problem Recurrent major depressive disorder, in partial 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 Active 18237367 Problem Chronic GERD K21.9 Active 589898413 Problem Chronic pain syndrome G89.4 Active 082788359 Problem Nocturnal hypoxemia G47.34 Active 687111760 Problem Gastroesophageal reflux disease without esophagitis K21.9 Active 716846579 Problem Elevated transaminase level R74.0 Active 228300400 Problem 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 Active 842329829 Problem Chronic obstructive pulmonary disease, unspecified COPD type J44.9 Active 05601264 Problem Mixed hyperlipidemia E78.2 Active 487786755 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 Active 6609520 Problem Essential hypertension I10 Active 36342934 Problem Hypoxia R09.02 Active 881820152 Problem Anxiety F41.9 Active 19279988 ALLERGIES No Information ENCOUNTERS Encounter Location Date Diagnosis [facility], [place] [address] [address] Aug, [facility], [place] [address] [address] July, Gastroesophageal reflux disease without esophagitis K21.9 [facility], [place] [id number] [place] [address] 15141- 3869 July, [place] [place] [id number] [place] [address] 14174- 2372 July, [facility], [place] [id number] [place] [address] 57737- 5300 July, [facility], [place] [id number] [place] [address] 70776- 5837 July, Essential hypertension I10 and Chronic pain syndrome G89.4 [facility] [id number] [place] [address] 60187- 2342 July, Gastroesophageal reflux disease without esophagitis K21.9 [facility] [address] 99200- 5014 July, 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 [facility] [address] 80181- 4064 July, Chronic obstructive pulmonary disease, unspecified COPD type J44.9 ; Nocturnal cough R05 ; 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 and Recurrent major depressive disorder, in partial 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 [facility] [place] [id number] [place] [address] 30969- 0629 July, [facility] [id number] [place] [address] 66105- 2270 July, Type 2 diabetes mellitus with diabetic neuropathy, without long-term current use of insulin E11.40 [facility] [place] [id number] [place] [address] 08653- 7786 July, Nocturnal hypoxemia G47.34 ; Chronic obstructive pulmonary disease, unspecified COPD type J44.9 and Nocturnal cough R05 [facility] [id number] [place] [address] 46239- 2666 July, [facility] [id number] [place] [address] 69272- 9119 July, [facility] [id number] [place] [address] 63096- 4647 July, [facility], [place] [id number] [place] [address] 72603- 8576 Jun, Chronic pain syndrome G89.4 [facility], [place] [id number] [place] [address] 48611- 7581 Jun, [facility], [place] [id number] [place] [address] 76418- 6307 Jun, [facility], [place] [id number] [place] [address] 82949- 9234 Jun, 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 [place] [address] 74806- 8804 Jun, [facility] [place] [id number] [place] [address] 62376- 8733 Jun, Gastroesophageal reflux disease without esophagitis K21.9 [facility], [place] [id number] [place] [address] 18600- 6810 Jun, Allergic rhinitis, unspecified allergic rhinitis trigger, unspecified rhinitis seasonality J30.9 [facility], [place] [id number] [place] [address] 52408- 6402 Jun, Chronic pain syndrome G89.4 [place] [id number] [place] [address] 94649- 6544 May, [facility] [id number] [place] [address] 35017- 1571 May, COPD with acute exacerbation J44.1 [facility], [place] [id number] [place] [address] 20889- 7859 14 May, 2017 Type 2 diabetes mellitus with diabetic neuropathy, without long-term current use of insulin E11.40 ; COPD with acute exacerbation J44.1 ; Hypoxia R09.02 ; Chronic pain syndrome G89.4 ; Yeast dermatitis B37.2 ; 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 and 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 [facility], [place] [address], [place] [address] 2546 May, [facility], [place] [id number] [place] [address] 67349 2546 May, Chronic pain syndrome G89.4 [facility], [place] [address], [place] [address] 2546 May, [facility], [place] [id number] [place] [address] 12224 2546 May, [facility], [place] [id number] [place] [address] 27108 2546 May, Mixed hyperlipidemia E78.2 [facility], [place] [id number] [place] [address] 81427 2546 May, Chronic pain syndrome G89.4 [facility], [place] [id number] [place] [address] 18766 2546 May, Anxiety F41.9 and Chronic pain syndrome G89.4 [facility], [place] [address], [place] [address] 2546 Mar, [facility], [place] [id number] [place] [address] 51284 2546 Mar, [facility], [place] [address], [place] [address] 2546 Mar, [facility], [place] [address], [place] [address] 2546 Mar, [facility], [place] [address], [place] [address] 2546 Mar, [facility], [place] [id number] [place] [address] 88086 2546 Mar, Anxiety F41.9 and Chronic pain syndrome G89.4 [facility], [place] [address] [address] 2546 Mar, Medicare annual wellness visit, initial [...] Hiatal hernia K44.9 and Actinic keratosis L57.0 [facility], [place] [address] 33898- 1030 Mar, [facility], [place] [address] 15627- 3053 Mar, Chronic pain syndrome G89.4 [facility], [place] [address] 23080- 9684 Feb, [facility], [place] [id number] [place] [address] 37329- 5368 Feb, Chronic pain syndrome G89.4 [facility], [place] [id number] [place] [address] 55012- 1187 Feb, [facility], [place] [id number] [place] [address] 89678- 4836 Feb, [facility], [place] [address] 26525- 9736 Feb, Anxiety F41.9 [facility], [place] [id number] [place] [address] 78609- 2046 Feb, [facility], [place] [address] [id number]- 0911 Feb, Chronic pain syndrome G89.4 [facility], [place] [id number] [place] [address] 71280- 5538 Jan, Essential hypertension I10 [place] [id number] [place] [address] 60416- 1272 Jan, Chronic pain syndrome G89.4 [place] [address] 87663- 0929 Jan, [place] [id number] [place] [address] 36530- 3725 Jan, Anxiety F41.9 [place] [address] 14030- 5430 Jan, Encounter for immunization Z23 and Community acquired pneumonia, unspecified laterality J18.9 [place] [address] 524345- 0223 Jan, Type 2 diabetes mellitus with diabetic neuropathy, without long-term current use of insulin E11.40 [place] [address] 63467- 2819 Dec, Anxiety F41.9 and Chronic pain syndrome G89.4 [place] [id number] [place] [address] 72845- 5059 Dec, Chronic pain syndrome G89.4 and Essential hypertension I10 [place] [id number] [place] [address] 51084- 8248 Dec, [place] [id number] [place] [address] 58767- 7437 Dec, Anxiety F41.9 [place] [id number] [place] [address] 43128- 0790 Dec, [place] [id number] [place] [address] 96411- 4955 Dec, Type 2 diabetes mellitus with diabetic neuropathy, without long-term current use of insulin E11.40 ; Lactic acidosis E87.2 ; Chronic obstructive pulmonary disease, unspecified COPD type J44.9 and Encounter for immunization Z23 [place] [address] 16874- 4611 Dec, Chronic pain syndrome G89.4 [facility], [place] [id number] [place] [address] 9464 Nov, [facility] [id number] [place] [address] 72608 2547 Nov, Chronic pain syndrome G89.4 [facility], [place] [address], [place] [address]- 1404 Nov, [facility] [address] [facility] [id number] [place] [address] 94611- 7487 Nov, [facility] [id number] [place] [address] 99063- 6674 15 Nov, 2016 Anxiety F41.9 [facility] [id number] [place] [address] 09057- 4439 11 Nov, 2016 Anxiety F41.9 [facility], [place] [id number] [place] [address] 86560- 7171 08 Nov, 2016 [facility] [id number] [place] [address] 98294- 5186 05 Nov, 2016 [facility] [id number] [place] [address] 18996- 9316 Nov, [facility] [address], [place] [address]- 7521 Oct, [facility], [place] [address], [place] [address]- 6698 Oct, [facility] [address], [place] [address]- 3176 Oct, [facility] [id number] [place] [address] 63654- 6780 Oct, Essential hypertension I10 and Chronic pain syndrome G89.4 [facility], [place] [address], [place] [address]- 1139 Oct, Anxiety F41.9 [facility] [id number] [address]- 5677 Oct, [facility], [place] [id number] [place] [address] 65659- 2895 Oct, Chronic pain syndrome G89.4 [facility] [id number] [place] [address] 19259 -5616 Oct, Sore throat J02.9 and Acute nasopharyngitis (common cold) J00 [facility], [place] [id number] [place] [address] 02658- 3724 Sep, [facility], [place] [id number] [place] [address] 55492- 1448 Sep, COPD exacerbation J44.1 [facility], [place] [id number] [place] [address] 78308- 6630 Sep, Chronic pain syndrome G89.4 [facility], [place] [id number] [place] [address] 85783- 5832 Sep, Essential hypertension I10 [facility], [place] [id number] [place] [address] 23916- 9900 Sep, [facility], [place] [id number] [place] [address] 50912- 1322 Sep, [facility], [place] [id number] [place] [address] 93643- 0252 Sep, Anxiety F41.9 [facility], [place] [id number] [place] [address] 99436- 4268 Sep, Chronic pain syndrome G89.4 [facility], [place] [id number] [place] [address] 03242- 3644 Sep, [facility], [place] [id number] [place] [address] 69865- 9646 Aug, Acute seasonal allergic rhinitis, unspecified trigger J30.2 ; Hiatal hernia K44.9 and Chronic pain syndrome G89.4 [facility], [place] [address], [place] [address]- 4848 Aug, [facility], [place] [id number] [place] [address] 97614- 2552 Aug, [facility], [place] [id number] [place] [address] 02332- 9705 Aug, Chronic obstructive pulmonary disease, unspecified COPD type J44.9 [facility], [place] [id number] [place] [address] 47128- 0603 14 Aug, 2016 Anxiety F41.9 [facility], [place] [id number] [place] [address] 97760- 5683 08 Aug, 2016 Chronic pain syndrome G89.4 [facility], [place] [id number] [place] [address] 87893- 6323 07 Aug, 2016 Hiatal hernia K44.9 and Actinic keratosis L57.0 [facility], [place] [id number] [place] [address] 08101- 0199 Aug, [facility], [place] [id number] [place] [address] 24862- 9282 Aug, Anxiety F41.9 [facility], [place] [id number] [place] [address] 07653- 1709 July, [facility], [place] [id number] [place] [address] 80983- 4190 July, Hiatal hernia K44.9 [facility], [place] [id number] [place] [address] 32328- 1500 July, [facility], [place] [id number] [place] [address] 85736- 0722 July, Anxiety F41.9 and Chronic pain syndrome G89.4 [facility], [place] [id number] [place] [address] 17342- 6769 July, [facility], [place] [id number] [place] [address] 05917- 0034 Jun, Chronic pain syndrome G89.4 [facility], [place] [id number] [place] [address] 53871- 6787 Jun, Chronic pain syndrome G89.4 [facility], [place] [id number] [place] [address] 37802- 2850 Jun, [facility], [place] [id number] [place] [address] 99581- 3296 Jun, Anxiety F41.9 [facility], [place] [id number] [place] [address] 82657- 0448 Jun, Allergic rhinitis, unspecified allergic rhinitis trigger, unspecified rhinitis seasonality J30.9 [place] [id number] [place] [address] 43569- 0542 Jun, [place] [id number] [place] [address] 58384- 3729 May, Chronic pain syndrome G89.4 [facility], [place] [id number] [place] [address] 72654- 6594 May, [place] [id number] [place] [address] 09146- 1030 May, [place] [id number] [place] [address] 97822- 4500 May, Anxiety F41.9 [place] [id number] [place] [address] 26210- 7658 May, Type 2 diabetes mellitus with diabetic [...] Anxiety F41.9 and Chronic pain syndrome G89.4 [facility], [place] [id number] [place] [address] 45651- 9813 May, Essential hypertension I10 ; Type 2 diabetes mellitus with diabetic neuropathy, without long-term current use of insulin E11.40 ; Mixed hyperlipidemia E78.2 ; Chronic obstructive pulmonary disease, unspecified COPD type J44.9 and Chronic GERD K21.9 [place] [id number] [place] [address] 53742- 1788 May, [place] [id number] [place] [address] 31753- 9372 May, [place] [id number] [place] [address] 76790- 0804 May, Type 2 diabetes mellitus with diabetic neuropathy, without long-term current use of insulin E11.40 [place] [id number] [place] [address] 93480- 7865 May, Dementia without behavioral disturbance, unspecified dementia type F03.90 [place] [id number] [place] [address] 90206- 3412 May, Type 2 diabetes mellitus with diabetic neuropathy, without long-term current use of insulin E11.40 ; Essential hypertension I10 ; Mixed hyperlipidemia E78.2 ; Chronic obstructive pulmonary disease, unspecified COPD type J44.9 ; Chronic GERD K21.9 and Osteoarthritis of both knees, unspecified osteoarthritis type M17.0 [place] [id number] [place] [address] 66739- 7005 May, [facility] [id number] [place] [address] 45821- 9945 May, [place] [id number] [place] [address] 90516- 2536 May, Anxiety F41.9 and Unspecified symptoms and signs involving cognitive functions and awareness R41.9 [place] [id number] [place] [address] 02265- 1597 May, [place] [address] 63396- 4171 14 May, 2016 Type 2 diabetes mellitus with diabetic neuropathy, without long-term current use of insulin E11.40 ; Anxiety F41.9 and Chronic obstructive pulmonary disease, unspecified COPD type J44.9 [place] [id number] [place] [address] 95796- 7534 May, [place] [place] [id number] [place] [address] 17700- 4667 May, [place] [address] 64197- 1798 May, [place] [address] 16586- 1656 May, Chronic obstructive pulmonary disease, unspecified COPD type J44.9 [place] [address] 05295- 5526 Mar, [place] [address] 35909- 1245 Mar, Arthritis of both knees M19.90 [place] [address] 66589- 0680 Mar, Type 2 diabetes mellitus with diabetic neuropathy, without long-term current use of insulin E11.40 [place] [id number] [place] [address] 09966- 3416 Mar, [place] [address] 75411- 2261 Mar, Neck pain M54.2 and Weakness generalized R53.1 [place] [address] 90133- 2320 Mar, [place] [address] 53565- 3934 Mar, Cervicalgia M54.2 and Impacted cerumen of both ears H61.23 [place] [address] 54940- 4554 Mar, [facility], [place] [address] [address]- 3351 Mar, Type 2 diabetes mellitus with diabetic neuropathy, without long-term current use of insulin E11.40 [facility], [place] [address], [place] [address]- 9663 Feb, [facility], [place] [id number] [place] [address] 67754- 1116 Feb, Hypoxia R09.02 [facility], [place] [id number] [place] [address] 60184- 4652 Feb, [facility], [place] [id number] [place] [address] 55427- 8322 Feb, [facility], [place] [id number] [place] [address] 51041- 4322 Feb, [facility], [place] [id number] [place] [address] 43592- 3849 Feb, Type 2 diabetes mellitus with diabetic neuropathy, without long-term current use of insulin E11.40 [facility], [place] [id number] [place] [address] 63151- 0130 Feb, Osteoarthritis of both knees, unspecified osteoarthritis type M17.0 [facility], [place] [id number] [address] Feb, [facility], [place] [id number] [address] Feb, [facility], [place] [id number] [address] Feb, [facility], [place] [address] [place] [id number] [place] [address] 27009- 9526 Jan, [facility], [place] [id number] [address] Jan, [facility], [place] [address] [place] [id number] [place] [address] 82770- 3086 Jan, [place] [address] [place] [id number] [place] [address] 30617- 1121 Jan, [place] [address] [place] [id number] [place] [address] 11103- 1862 Jan, Tinea pedis of both feet B35.3 [place] [address] [address]- [address] Jan, Type 2 diabetes mellitus with diabetic [...] seasonality J30.9 and Encounter for immunization Z23 [place] [address] [place] [id number] [place] [address] 42214- 7579 Jan, [place] [address] [place] [id number] [place] [address] 28333- 3379 Jan, [place] [address] [place] [id number] [place] [address] 74584- 5469 Dec, [place] [address] [place] [id number] [place] [address] 25817- 0610 Dec, [facility] [address] [place] [id number] [place] [address] 22341 -4086 Dec, Unspecified asthma with (acute) exacerbation J45.901 and Chronic obstructive pulmonary disease with (acute) exacerbation J44.1 [place] [address] [place] [id number] [place] [address] 22519- 4154 Dec, Arthritis of both knees M19.90 and Acute medial meniscus tear, right, initial encounter S83.241A [place] [id number] [address] Dec, [facility], [place] [address] [place] [id number] [place] [address] 54613- 1426 Dec, [facility], [place] [id number] [address] 14 Dec, 2015 [facility], [place] [id number] [place] [address] 04071- 7949 Dec, [facility], [place] [id number] [address] 2849 Dec, History of pneumonia Z87.01 [facility], [place] [id number] [place] [address] 55196- 5809 10 Dec, 2015 [facility], [place] [id number] [place] [id number] Dec, [facility], [place] [id number] [place] [id number] Dec, [facility], [place] [id number] [address] Dec, [facility], [place] [id number] [address] Dec, [facility], [place] [id number] [address] Dec, [facility], [place] [id number] [address] 30 Nov, 2015 Cough R05 and Pneumonia due to infectious organism, unspecified laterality, unspecified part of lung J18.9 [facility], [place] [id number] [address] Nov, [facility], [place] [id number] [address] Nov, Type 2 diabetes mellitus with diabetic [...] allergic rhinitis trigger, unspecified rhinitis seasonality J30.9 [facility], [place] [address] [facility] [id number] [place] [address] 12 Nov, 2015 IMMUNIZATIONS No Known Immunizations [...] obstructive pulmonary disease (COPD)-wears 2L O2 per [place], uses [employer] for home O2 Medical History Arthritis-knees and [...] History TURP 2003 [facility] Hospitalization History TIA, [facility] 2014 Hospitalization History COPD exacerbation--[facility] 12/27/2015 [facility] - [facility] 02/2016 [facility] History [facility] 11/2016 Hospitalization History COPD exacerbation - Dr Hartley Attending 12/2016 Hospitalization History Cough- [facility] [place] 04/10/2017 [facility]ization History [facility] - Possible Pneumonia 06/2017
--- OUTSIDE RECORDS SUMMARY | 2017-09-12 00:23 | XMS REPORT ---
Author Author ASIM LINARES [facility] Address [address] [place] [address] Care Team Providers Care Head Custodian Name Role Phone VIJAY ASIM Unavailable PROBLEMS Type Condition ICD9-CM Code TEP09-HP Code Onset Dates Condition Status SNOMED Code Problem Allergic rhinitis, unspecified allergic rhinitis trigger, unspecified rhinitis seasonality J30.9 Active 71412350 Problem Osteoarthritis of both knees, unspecified osteoarthritis type M17.0 Active 481819719 Problem Type 2 diabetes mellitus with diabetic neuropathy, without long-term current use of insulin E11.40 Active 21496451 Problem 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 Active 169990511 Problem Recurrent major depressive disorder, in partial 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 Active 11085042 Problem Chronic GERD K21.9 Active 505505746 Problem Chronic pain syndrome G89.4 Active 319700895 Problem Nocturnal hypoxemia G47.34 Active 417661686 Problem Gastroesophageal reflux disease without esophagitis K21.9 Active 970789638 Problem Elevated transaminase level R74.0 Active 040633303 Problem 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 Active 030584916 Problem Chronic obstructive pulmonary disease, unspecified COPD type J44.9 Active 99841014 Problem Mixed hyperlipidemia E78.2 Active 392822658 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 Active 0712512 Problem Essential hypertension I10 Active 05526182 Problem Hypoxia R09.02 Active 691888487 Problem Anxiety F41.9 Active 39063410 ALLERGIES No Information ENCOUNTERS Encounter Location Date Diagnosis [facility] [id number], [place] [address] Aug, [facility] [id number], [place] [address] Aug, [facility] [id number], [place] [address] 6970 Aug, Chronic pain syndrome G89.4 [facility] [address], [place] [address] Aug, [facility] [id number] [place] [address] 61757- 3272 Aug, [facility] [id number] [place] [address] 59888- 5335 July, Gastroesophageal reflux disease without esophagitis K21.9 [facility] [id number] [place] [address] 77549- 2063 July, [facility] [id number] [place] [address] 33055- 7625 July, [facility] [id number] [place] [address] 60183- 2760 July, [facility] [id number] [place] [address] 43742- 6579 July, Essential hypertension I10 and Chronic pain syndrome G89.4 [facility] [id number] [place] [address] 30193- 4083 July, Gastroesophageal reflux disease without esophagitis K21.9 [facility] [id number] [place] [address] 78424- 2166 July, 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 [facility] [id number] [place] [address] 53355- 1366 July, Chronic obstructive pulmonary disease, unspecified COPD type J44.9 ; Nocturnal cough R05 ; 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 and Recurrent major depressive disorder, in partial 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 [facility] [id number] [place] [address] 38183- 5389 July, [facility] [id number] [place] [address] 07814- 2215 July, Type 2 diabetes mellitus with diabetic neuropathy, without long-term current use of insulin E11.40 [facility] [id number] [place] [address] 63546- 4233 July, Nocturnal hypoxemia G47.34 ; Chronic obstructive pulmonary disease, unspecified COPD type J44.9 and Nocturnal cough R05 [facility] [id number] [place] [address] 82552- 6349 July, [facility] [address] 9[address]71- 7358 July, [facility] [address] 84496- 7475 July, [facility] [address] 87164- 3721 Jun, Chronic pain syndrome G89.4 [facility] [address] 81352- 6203 Jun, [facility] [address] 81959- 3093 Jun, [facility] [address] 54427- 2746 Jun, 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 [facility] [id number] [place] [address] 07461- 0321 Jun, [facility] [id number] [place] [address] 25538- 4061 Jun, Gastroesophageal reflux disease without esophagitis K21.9 [facility] [id number] [place] [address] 93785- 3649 Jun, Allergic rhinitis, unspecified allergic rhinitis trigger, unspecified rhinitis seasonality J30.9 [facility] [address] 51810- 9293 Jun, Chronic pain syndrome G89.4 [facility] [id number] [place] [address] 07400- 0539 May, [facility] [address] [place] [address]- 0902 15 May, 2017 COPD with acute exacerbation J44.1 [facility] [address] 49930- 8655 14 May, 2017 Type 2 diabetes mellitus with diabetic neuropathy, without long-term current use of insulin E11.40 ; COPD with acute exacerbation J44.1 ; Hypoxia R09.02 ; Chronic pain syndrome G89.4 ; Yeast dermatitis B37.2 ; 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 and 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 [facility] [address] 33189- 8486 May, [facility] [address] 16929- 4103 May, Chronic pain syndrome G89.4 [facility] [address] 03429- 1816 May, [facility] [address] 96813- 5001 May, [facility] [address] 51382- 9679 May, Mixed hyperlipidemia E78.2 [facility] [address] 61344- 2714 15 May, 2017 Chronic pain syndrome G89.4 [facility] [id number] [place] [address] 80769- 6325 May, Anxiety F41.9 and Chronic pain syndrome G89.4 [facility] [id number] [place] [address] 81030- 7348 Mar, [facility] [address] 09221- 4047 Mar, [facility] [id number] [place] [address] 11682- 0754 Mar, [facility] [id number] [place] [address] 66542- 7580 Mar, [facility] [id number] [place] [address] 77377- 0717 Mar, [facility] [id number] [place] [address] 28559- 3180 Mar, Anxiety F41.9 and Chronic pain syndrome G89.4 [facility] [id number] [place] [address] 12302- 4401 Mar, Medicare annual wellness visit, initial Z00.00 [...] Hiatal hernia K44.9 and Actinic keratosis L57.0 [facility] [id number] [place] [address] 49051- 9056 Mar, [facility] [id number] [place] [address] 54147- 5295 Mar, Chronic pain syndrome G89.4 [facility] [id number] [place] [address] 56591- 5885 Feb, [facility] [id number] [place] [address] 83932- 3401 Feb, Chronic pain syndrome G89.4 [facility] [id number] [place] [address] 03438- 8792 Feb, [facility] [id number] [place] [address] 09700- 9494 Feb, [facility] [address] [place] [address]- 4445 Feb, Anxiety F41.9 [facility] [address] 71092- 7037 Feb, [facility] [id number] [place] [address] 24013- 5284 Feb, Chronic pain syndrome G89.4 [facility] [address] 42987- 6208 Jan, Essential hypertension I10 [facility] [address] 64690- 0148 Jan, Chronic pain syndrome G89.4 [facility] [address] 34091- 4345 Jan, [facility] [address] 24059- 7386 Jan, Anxiety F41.9 [facility] [address] 80021- 3859 Jan, Encounter for immunization Z23 and Community acquired pneumonia, unspecified laterality J18.9 [facility] [id number] [place] [address] 83808- 8785 Jan, Type 2 diabetes mellitus with diabetic neuropathy, without long-term current use of insulin E11.40 [facility] [id number] [place] [address] 93778- 3706 Dec, Anxiety F41.9 and Chronic pain syndrome G89.4 [facility] [id number] [place] [address] 97294- 9616 Dec, Chronic pain syndrome G89.4 and Essential hypertension I10 [facility] [id number] [place] [address] 65536- 6091 16 Dec, 2016 [facility] [id number] [place] [address] 10156- 3505 Dec, Anxiety F41.9 [facility] [id number] [place] [address] 41665- 6402 Dec, [facility] [id number] [place] [address] 84329- 3179 Dec, Type 2 diabetes mellitus with diabetic neuropathy, without long-term current use of insulin E11.40 ; Lactic acidosis E87.2 ; Chronic obstructive pulmonary disease, unspecified COPD type J44.9 and Encounter for immunization Z23 [facility] [id number] [place] [address] 39220- 1517 Dec, Chronic pain syndrome G89.4 [facility] [id number] [place] [address] 05062- 6146 Nov, [facility] [id number] [place] [address] 32021- 3868 Nov, Chronic pain syndrome G89.4 [facility] [id number] [place] [address] 74034- 0755 Nov, [facility] [id number] [place] [address] 82561 2547 Nov, [facility] [id number] [place] [address] 17950- 8737 Nov, Anxiety F41.9 [facility] [id number] [place] [address] 83751 2542 11 Nov, 2016 Anxiety F41.9 [facility] [id number] [place] [address] 79409- 3445 08 Nov, 2016 [facility] [id number] [place] [address] 84972 2545 05 Nov, 2016 [facility] [id number] [place] [address] 83335- 2547 Nov, [facility] [address] [place] [address] 47351- 9430 Oct, [facility] [id number] [place] [address] 94742- 9879 Oct, [facility] [address] [place] [address] 75252- 9562 Oct, [facility] [id number] [place] [address] 00006- 1714 Oct, Essential hypertension I10 and Chronic pain syndrome G89.4 [facility] [id number] [place] [address] 73272- 3434 Oct, Anxiety F41.9 [facility] [id number] [place] [address] 02860- 8322 Oct, [facility] [id number] [place] [address] 77913- 7287 Oct, Chronic pain syndrome G89.4 [facility] [address] [place] [address] 88616 -6926 Oct, Sore throat J02.9 and Acute nasopharyngitis (common cold) J00 [facility] [address] [place] [address] 49238- 2166 Sep, [facility] [id number] [place] [address] 90036- 9594 Sep, COPD exacerbation J44.1 [facility] [id number] [place] [address] 39120- 0250 Sep, Chronic pain syndrome G89.4 [facility] [address] [place] [address] 07419- 3860 Sep, Essential hypertension I10 [facility] [address] [place] [address] 47468- 3006 Sep, [facility] [id number] [place] [address] 27449- 0876 Sep, [facility] [address], [place] [address]- 4716 Sep, Anxiety F41.9 [facility] [address], [place] [address]- 0465 05 Sep, 2016 Chronic pain syndrome G89.4 [facility] [id number] [place] [address] 00334- 3648 Sep, [facility] [id number] [place] [address] 83132- 8793 Aug, Acute seasonal allergic rhinitis, unspecified trigger J30.2 ; Hiatal hernia K44.9 and Chronic pain syndrome G89.4 [facility] [id number] [place] [address] 51166- 0315 Aug, [facility] [id number] [place] [address] 76585- 0679 Aug, [facility] [id number] [place] [address] 12318- 0755 Aug, Chronic obstructive pulmonary disease, unspecified COPD type J44.9 [facility] [id number] [place] [address] 52948- 5864 14 Aug, 2016 Anxiety F41.9 [facility] [id number] [place] [address] 42243- 8021 08 Aug, 2016 Chronic pain syndrome G89.4 [facility] [id number] [place] [address] 73945- 3725 07 Aug, 2016 Hiatal hernia K44.9 and Actinic keratosis L57.0 [facility] [address] [place] [address] 62412- 9945 07 Aug, 2016 [facility] [id number] [place] [address] 44452- 9540 Aug, Anxiety F41.9 [facility] [id number] [place] [address] 19247- 6380 July, [facility] [id number] [place] [address] 49249- 6076 July, Hiatal hernia K44.9 [facility] [id number] [place] [address] 19480- 3914 July, [facility] [address] 22574- 9055 July, Anxiety F41.9 and Chronic pain syndrome G89.4 [facility] [id number] [place] [address] 44222- 3129 July, [facility] [id number] [place] [address] 01666- 5271 Jun, Chronic pain syndrome G89.4 [facility] [id number] [place] [address] 86770- 4233 Jun, Chronic pain syndrome G89.4 [facility] [id number] [place] [address] 93395- 6033 Jun, [facility] [address] 99029- 1966 Jun, Anxiety F41.9 [facility] [id number] [place] [address] 16892- 5507 Jun, Allergic rhinitis, unspecified allergic rhinitis trigger, unspecified rhinitis seasonality J30.9 [facility] [id number] [place] [address] 29978- 4272 Jun, [facility] [id number] [place] [address] 55159- 7178 May, Chronic pain syndrome G89.4 [facility] [id number] [place] [address] 46871- 6594 May, [facility] [id number] [place] [address] 64065- 0857 May, [facility] [id number] [place] [address] 00483- 2980 May, Anxiety F41.9 [facility] [id number] [place] [address] 09701- 2466 May, Type 2 diabetes mellitus with diabetic [...] Anxiety F41.9 and Chronic pain syndrome G89.4 [facility] [id number] [place] [address] 71759- 0873 May, Essential hypertension I10 ; Type 2 diabetes mellitus with diabetic neuropathy, without long-term current use of insulin E11.40 ; Mixed hyperlipidemia E78.2 ; Chronic obstructive pulmonary disease, unspecified COPD type J44.9 and Chronic GERD K21.9 [facility] [id number] [place] [address] 53370- 0059 May, [facility] [id number] [place] [address] 48528- 7958 May, [facility] [id number] [place] [address] 38884- 0133 May, Type 2 diabetes mellitus with diabetic neuropathy, without long-term current use of insulin E11.40 [facility] [address] [place] [address] 19181- 5384 May, Dementia without behavioral disturbance, unspecified dementia type F03.90 [facility] [id number] [place] [address] 6816 May, Type 2 diabetes mellitus with diabetic neuropathy, without long-term current use of insulin E11.40 ; Essential hypertension I10 ; Mixed hyperlipidemia E78.2 ; Chronic obstructive pulmonary disease, unspecified COPD type J44.9 ; Chronic GERD K21.9 and Osteoarthritis of both knees, unspecified osteoarthritis type M17.0 [facility] [id number] [place] [address] 21710- 2557 May, [facility] [id number] [place] [address] 41150- 6342 May, [facility] [id number] [place] [address] 12158- 8237 May, Anxiety F41.9 and Unspecified symptoms and signs involving cognitive functions and awareness R41.9 [facility] [id number] [place] [address] 14242- 4954 May, [facility] [id number] [place] [address] 14594- 3833 May, Type 2 diabetes mellitus with diabetic neuropathy, without long-term current use of insulin E11.40 ; Anxiety F41.9 and Chronic obstructive pulmonary disease, unspecified COPD type J44.9 [facility] [id number] [place] [address] 54652- 3844 May, [facility] [id number] [place] [address] 45298- 8658 May, [facility] [id number] [place] [address] 46648- 4965 May, [facility] [id number] [place] [address] 56053- 4792 May, Chronic obstructive pulmonary disease, unspecified COPD type J44.9 [facility] [address] [place] [address] 19866- 4862 Mar, [facility] [id number] [place] [address] 50393- 5440 Mar, Arthritis of both knees M19.90 [facility] [id number] [place] [address] 26179- 5566 Mar, Type 2 diabetes mellitus with diabetic neuropathy, without long-term current use of insulin E11.40 [facility] [address] [place] [address] 04371- 6178 Mar, [facility] [address] [address] 41299- 0921 05 Mar, 2016 Neck pain M54.2 and Weakness generalized R53.1 [facility] [address] 41851- 5411 Mar, [facility] [address] 14850- 4382 Mar, Cervicalgia M54.2 and Impacted cerumen of both ears H61.23 [facility] [address] 92542- 4959 Mar, [facility] [address] 22635- 0554 Mar, Type 2 diabetes mellitus with diabetic neuropathy, without long-term current use of insulin E11.40 [facility] [address] 44679- 8882 Feb, [facility] [address] 49095- 5629 Feb, Hypoxia R09.02 [facility] [address] 60368- 9439 Feb, [facility] [address] 47868- 9303 Feb, [facility] [id number] [place] [address] 09944- 1192 Feb, [facility] [address] 77900- 9724 Feb, Type 2 diabetes mellitus with diabetic neuropathy, without long-term current use of insulin E11.40 [facility] [address] 89191- 9087 15 Feb, 2016 Osteoarthritis of both knees, unspecified osteoarthritis type M17.0 [facility] [id number] [place] [address] 13363- 3610 14 Feb, 2016 [facility] [address] [place] [address]- 0969 Feb, [facility] [id number] [place] [address] 18867- 0301 Feb, [facility] [id number] [place] [address] 32771- 6357 Jan, [facility] [id number] [place] [address] 25153- 1260 Jan, [facility] [id number] [place] [address] 82774- 1301 Jan, [facility] [id number] [place] [address] 78656- 1476 Jan, [facility] [id number] [place] [address] 56817- 3151 Jan, Tinea pedis of both feet B35.3 [facility] [id number] [place] [address] 68385- 1492 Jan, Type 2 diabetes mellitus with diabetic [...] seasonality J30.9 and Encounter for immunization Z23 [facility] [address] [place] [address] 63485- 0688 Jan, [facility] [id number] [place] [address] 43702- 4793 Jan, [facility] [address] [place] [address] 69186- 5081 Dec, [facility] [id number] [place] [address] 26635- 2444 Dec, [facility] [address] [facility] [id number] [address] Dec, Unspecified asthma with (acute) exacerbation J45.901 and Chronic obstructive pulmonary disease with (acute) exacerbation J44.1 [facility] [address] [address]- 5073 Dec, Arthritis of both knees M19.90 and Acute medial meniscus tear, right, initial encounter S83.241A [facility] [address] [facility] [id number] [address]- 6415 Dec, [facility] [address] [facility] [id number] [address]- 1286 Dec, [facility] [address] [address]- 2084 Dec, [facility] [address] [place] [address] 32899- 8037 Dec, [facility] [address], [place] [address]- 0260 Dec, History of pneumonia Z87.01 [facility] [id number] [address]- 8373 Dec, [facility] [address] [address]- 8307 Dec, [facility] [id number] [address]- 6626 05 Dec, 2015 [facility] [address] [id number] [address] Dec, [facility] [id number] [address] Dec, [facility] [address] [id number] [address] Dec, [facility] [id number] [address] 30 Nov, 2015 Cough R05 and Pneumonia due to infectious organism, unspecified laterality, unspecified part of lung J18.9 [address] [address] [address] [facility] [id number] [address] 28 Nov, 2015 [facility] [address] [id number] [address] 22 Nov, 2015 Type 2 diabetes mellitus [...] allergic rhinitis trigger, unspecified rhinitis seasonality J30.[id number] [facility] [id number] [address] 12 Nov, 2015 IMMUNIZATIONS No Known Immunizations SOCIAL HISTORY Never Assessed REASON FOR VISIT Refill request PLAN OF CARE VITAL SIGNS MEDICATIONS Medication Instructions Dosage Frequency Start Date End Date Duration Status Polyethylene Glycol 3350 - Orally Once a day 17grams with 8oz liquid 24h 18 Feb, 2017 Active RESULTS No Results PROCEDURES No Known procedures INSTRUCTIONS MEDICATIONS ADMINISTERED No Known Medications MEDICAL (GENERAL) HISTORY Type Description Date Medical History hypertension Medical History chronic obstructive pulmonary disease (COPD)-wears 2L O2 per [place], uses [employer] for home O2 Medical History Arthritis-knees [...] Attending 12/2016 Hospitalization History Cough- [facility] [place] 04/10/2017 Hospitalization History [facility] - Possible Pneumonia 06/2017
--- NOTE | 2017-09-12 02:40 | ED Respiratory ---
General Chief Complaint: Cough/Cold/Flu Symptoms Stated Complaint: COUGHING, CAN'T STOP Nursing Triage Note: Cough that began last night. Chronic cough for years but he is unable to sleep. Pt currently on ATB for bronchitis Source: patient, old records Exam Limitations: no limitations History of Present Illness Date Seen by Provider: Sep 12, 2017 Time Seen by Provider: 01:45 Initial Comments This 81-year-old gentleman presents to the emergency room with complaints of nocturnal cough. I saw him for a similar complaint early July. He states the problem has been persistent and has worsened the past few days. He denies any fever. Cough is dry. He has COPD and takes multiple inhaled medications. He is also on allergy medications including Xyzal. He was seen recently and started on a medication which he thought to be an antibiotic. However, after reviewing his chart I believe the medication he recently started was Xyzal. During his last visit to the ER we discussed stopping benazepril due to its known side effect of dry cough. He apparently did not discuss this with his primary care provider after that ER visit, and he is still on benazepril at this time. Allergies and Home Medications Allergies Coded Allergies: aspirin (Unverified Allergy, Unknown, 05/20/14) codeine (Verified Allergy, Unknown, 04/07/06) hydrocodone (Unverified Allergy, Unknown, 10/16/15) Uncoded Allergies: SSRI (Allergy, Unknown, 05/20/14) TCA (Allergy, Unknown, 05/20/14) Home Medications Amlodipine Besylate 10 Mg Tablet, 10 MG PO HS, (Reported) Atorvastatin Calcium 40 Mg Tablet, 40 MG PO HS, (Reported) Azithromycin 250 Mg Tablet, 250 MG PO DAILY@1700 Prescribed by: DARIN PINEDO on 01/27/17 1128 Benazepril HCl 20 Mg Tablet, 20 MG PO HS, (Reported) Cefpodoxime Proxetil 200 Mg Tablet, 200 MG PO BID Prescribed by: DARIN PINEDO on 01/27/17 1131 Cephalexin 500 Mg Capsule, 500 MG PO QID Prescribed by: CEASAR CASTILLO on 08/12/17 1741 Chlorphen/Dm/Acetaminophen/GG 1 Each Tb.cp.seq, 1-2 TAB PO Q6H PRN for DRAINAGE, (Reported) Clonazepam 1 Mg Tablet, 1 MG PO TID, (Reported) Doxazosin Mesylate 4 Mg Tablet, 4 MG PO DAILY, (Reported) Fluconazole 150 Mg Tablet, 150 MG PO UD Take one now and repeat in 3 or 4 days Prescribed by: CEASAR CASTILLO on 08/12/171740 Fluticasone Propionate 16 Gm [place].susp, 2 SPRAYS NS DAILY, (Reported) Glipizide 5 Mg Tablet, 5 MG PO BID, (Reported) Glycerin/Propylene Glycol 15 Ml Drops, 1 DROP OU QID PRN for DRY EYES, (Reported ) Guaifenesin/Dextromethorphan 5 Ml Syrup, 5 ML PO TID, (Reported) Ipratropium/Albuterol Sulfate 3 Ml Ampul.neb, 3 ML IH TID, (Reported) Levocetirizine Dihydrochloride 5 Mg Tablet, 5 MG PO HS, (Reported) Metformin HCl 500 Mg Tablet, 250 MG PO BID, (Reported) TAKES 1/2 OF A (500 MG) TABLET Mineral Oil/Petrolatum,White 3.5 Gm Oint...g., OU BID, (Reported) Mirabegron 25 Mg Tab.er.24h, 25 MG PO DAILY, (Reported) Montelukast Sodium 10 Mg Tablet, 10 MG PO HS, (Reported) Multivitamin 1 Each Tablet, 1 TAB PO DAILY, (Reported) Ondansetron 4 Mg Tab.rapdis, 4 MG PO Q4H PRN for NAUSEA/VOMITING-1ST LINE Prescribed by: BOZENA WERNER on 05/02/171839 Ondansetron 4 Mg Tab.rapdis, 4 MG SL Q4H PRN for NAUSEA/VOMITING-1ST LINE Prescribed by: CEASAR CASTILLO on 08/12/17 174 Oseltamivir Phosphate 75 Mg Cap, 75 MG PO BID Prescribed by: BOZENA WERNER on 05/02/17 184 Pantoprazole Sodium 40 Mg Tablet.dr, 40 MG PO DAILY, (Reported) Pantoprazole Sodium 40 Mg Tablet.dr, 40 MG PO DAILY Prescribed by: CEASAR CASTILLO on 07/29/17 163 Prednisone 20 Mg Tab, 20 MG PO DAILY Prescribed by: DOMINGA TOLEDO on 04/10/17 1221 Pregabalin 100 Mg Capsule, 100 MG PO TID, (Reported) Ranitidine HCl 150 Mg Tablet, 150 MG PO HS, (Reported) Rivastigmine 1 Each Patch.td24, 4.6 MG TD DAILY, (Reported) Sucralfate 1 Gm Tablet, 1 GM PO QID, (Reported) Tramadol HCl 50 Mg Tablet, 50 MG PO BID PRN for PAIN-MODERATE, (Reported) Triamcinolone Acet 15 Gm Cr, TP BID PRN for BED SORES, (Reported) Vilazodone Hydrochloride 10 Mg Tablet, 10 MG PO HS, (Reported) Patient Home Medication List Home Medication List Reviewed: Yes Review of Systems Constitutional: no symptoms reported EENTM: no symptoms reported Respiratory: see HPI Cardiovascular: no symptoms reported Gastrointestinal: no symptoms reported Genitourinary: no symptoms reported Musculoskeletal: no symptoms reported Skin: no symptoms reported Psychiatric/Neurological: No Symptoms Reported Hematologic/Lymphatic: No Symptoms Reported Immunological/Allergic: no symptoms reported Past Kfjqplq-Tdgviz-Utpxml Hx Patient Social History Alcohol Use: Denies Use Recreational Drug Use: No Smoking Status: Never a Smoker Type Used: Cigarettes Former Smoker, Quit: Mar 31, 1966 2nd Hand Smoke Exposure: No Recent Foreign Travel: No Contact w/Someone Who Travel: No Recent Infectious Disease Expo: No Recent Hopitalizations: No Physical Abuse: No Sexual Abuse: No Mistreated: No Fear: No Immunizations Up To Date Tetanus Booster (TDap): Unknown Date of Pneumonia Vaccine: Mar 31, 2016 Date of Influenza Vaccine: Dec 19, 2016 Seasonal Allergies Seasonal Allergies: Yes Past Medical History Surgeries: Yes (RIGHT EYELID BASAL CELL CANCER, hernia repair) Abdominal, Adenoidectomy, Eye Surgery, Prostatectomy, Tonsillectomy Respiratory: Yes (O2 DEPENDENT AT 3L/NC CONTINUOUSLY) Pneumonia, Chronic Bronchitis, COPD, Emphysema Currently Using CPAP: No Currently Using BIPAP: No Cardiac: Yes Chronic Edema/Swelling, High Cholesterol, Hypertension Neurological: Yes Dementia Reproductive Disorders: No Sexually Transmitted Disease: No HIV/AIDS: No Genitourinary: Yes (PROSTATE CANCER > 10 YEARS AGO) Prostate Problems, Kidney Stones Gastrointestinal: Yes Abdominal Hernia, Gastroesophageal Reflux, Polyps, Hiatal Hernia Musculoskeletal: Yes Arthritis Endocrine: Yes Diabetes, Non-Insulin dep HEENT: Yes Cataract Loss of Vision: Right Hearing Impairment: Denies Cancer: Yes (BASAL CELL CANCER RIGHT EYELID; PROSTATE SURGERY, NO CHEMO OR RADIATION) Prostate, Skin Did You Recieve Any Treatments: Yes What Type of Treatment Did You: Surgical Intervention Psychosocial: Yes Anxiety, Depression Nursing Suicide Risk Score: 1 Integumentary: Yes (SKIN CANCER) Blood Disorders: No Adverse Reaction/Blood Tranf: No Family Medical History FH: breast cancer G8 SISTER Lung Disease Physical Exam Vital Signs Vital Signs - First Documented 09/12/17 00:08 Pulse 98 Resp 20 B/P (MAP) 170/88 (115) Pulse Ox 94 O2 Delivery Room Air O2 Flow Rate 3.00 Capillary Refill : Less Than 3 Seconds General Appearance: WD/WN, no apparent distress HEENT: pharynx normal, other (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) Neck: normal inspection Respiratory: no respiratory distress, no accessory muscle use, crackles (right lung base) Cardiovascular: regular rate, rhythm, no edema Gastrointestinal: non tender, soft Extremities: swelling (mild to moderate lower extremity edema) Neurologic/Psychiatric: hospital nurse 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 II-XII nml as tested, no motor/sensory deficits, alert, normal mood/affect, oriented x 3 Skin: normal color, warm/dry Progress/Results/Core Measures Suspected Sepsis Recent Fever Within 48 Hours: No Infection Criteria Present: Suspected New Infection New/Unexplained Altered Menta: No Sepsis Screen: No Definite Risk SIRS Temperature: Pulse: 98 Respiratory Rate: 20 Blood Pressure 170 /88 Mean: 115 Results/Orders My Orders Orders - CEASAR LUCAS MD Chest Pa/Lat (2 View) (09/12/17 01:55) Vital Signs/I&O 09/12/17 09/12/17 00:08 02:49 Pulse 98 95 Resp 20 18 B/P (MAP) 170/88 (115) 155/78 Pulse Ox 94 98 O2 Delivery Room Air Room Air O2 Flow Rate 3.00 Capillary Refill : Less Than 3 Seconds Blood Pressure Mean: 115 Progress Note : Progress Note Subtle crackles were heard in the right lung base on exam. Two-view chest x- ray was obtained. No acute changes were noted. Patient was not observed to have any cough in the exam room during his ER visit. We again discussed changing benazepril to another medications. He is going to discuss this with Dr. Pinedo. Diagnostic Imaging Diagonstic Imaging: Xray Plain Films/CT/US/NM/MRI: chest Comments Chest x-ray viewed by me. Compared with prior. Report not yet available. No acute changes were appreciated. Departure Impression Primary Impression: Nocturnal cough Disposition: 01 HOME, SELF-CARE Condition: Stable Departure-Patient Inst. Decision time for Depature: 02:37 Referrals: RAMBO ROJAS DO (PCP) Primary Care Physician DARIN PINEDO MD Patient Instructions: Cough, Adult (DC) Add. Discharge Instructions: Continue with your medications as prescribed. Please discuss stopping benazepril with Dr. Pinedo as this medication is known to cause a dry cough. Return to care if you have worsening of symptoms such as fevers over 100 or shortness of breath that is not responding to your breathing treatments. All discharge instructions reviewed with patient and/or family. Voiced understanding. Copy Copies To 1: DARIN PINEDO MD, JOSHUA T MD Sep 12, 2017 02:40
[2017-09-12 02:49] VITALS: BP 155/78
--- NOTE | 2017-09-12 07:35 | Diagnostic Imaging Report ---
INDICATION: Chronic cough. PA and lateral chest. Heart size and pulmonary vascularity are normal. Lungs are clear. There are no effusions or pneumothoraces. Patient has hiatal hernia. IMPRESSION: Hiatal hernia. No acute abnormalities seen in the chest. Dictated by: Dictated on workstation # [id number]
[2017-09-17] MEDS ORDERED: TRAM50TA2 PO ×2 (11:09→11:39)
== END 2017-09-12 02:50 | disposition home or self-care (01) ==
LOC: EDUNIT# 23:48 → ER 23:51
DX: R05 Cough (principal); J43.9 Emphysema, unspecified; E78.00 Pure hypercholesterolemia, unspecified; F03.90 Unspecified dementia, unspecified severity, without behavioral disturbance, psychotic disturbance, mood disturbance, and anxiety; K21.9 Gastro-esophageal reflux disease without esophagitis; I10 Essential (primary) hypertension; E11.9 Type 2 diabetes mellitus without complications; F41.9 Anxiety disorder, unspecified; F32.9 Major depressive disorder, single episode, unspecified; Z80.3 Family history of malignant neoplasm of breast; Z87.01 Personal history of pneumonia (recurrent); Z88.6 Allergy status to analgesic agent; Z88.5 Allergy status to narcotic agent; Z88.8 Allergy status to other drugs, medicaments and biological substances; Z85.46 Personal history of malignant neoplasm of prostate; Z87.442 Personal history of urinary calculi; Z79.84 Long term (current) use of oral hypoglycemic drugs; Z79.52 Long term (current) use of systemic steroids; Z79.51 Long term (current) use of inhaled steroids; Z87.891 Personal history of nicotine dependence; Z90.89 Acquired absence of other organs; Z87.19 Personal history of other diseases of the digestive system; Z85.828 Personal history of other malignant neoplasm of skin
CPT/HCPCS: 71046

== ENCOUNTER 2017-09-17 00:52 | Observation (INO) | payer MEDICARE, MEDICAID ==
[2017-09-17] VITALS (16 sets, daily range): BP systolic 139–174; BP diastolic 63–92
[~2017-09-17] VITALS: Ht 182.9 cm; Wt 109.0 kg
[2017-09-17] MEDS ORDERED: CLOP75TA28 PO (01:16)
[2017-09-17 01:42] LABS: BASOPHILS % (AUTO) 0 % (0-10); EOSINOPHILS # (AUTO) 0.2 10^3/uL (0.0-0.3); EOSINOPHILS % (AUTO) 3 % (0-10); HEMATOCRIT 37 % (40-54); HEMOGLOBIN 12.5 G/DL (13.3-17.7); LYMPHOCYTES # (AUTO) 2.1 X 10^3 (1.0-4.0); LYMPHOCYTES % (AUTO) 29 % (12-44); MEAN CORPUSCULAR HEMOGLOBIN 30 PG (25-34); MEAN CORPUSCULAR HGB CONC 34 G/DL (32-36); MEAN CORPUSCULAR VOLUME 88 FL (80-99); MEAN PLATELET VOLUME 9.1 FL (7.4-10.4); MONOCYTES # (AUTO) 1.1 X 10^3 (0.0-1.0); MONOCYTES % (AUTO) 15 % (0-12); NEUTROPHILS # (AUTO) 3.8 X 10^3 (1.8-7.8); NEUTROPHILS % (AUTO) 53 % (42-75); PLATELET COUNT 218 10^3/uL (130-400); RED BLOOD COUNT 4.18 10^6/uL (4.35-5.85); RED CELL DISTRIBUTION WIDTH 12.8 % (10.0-14.5); WHITE BLOOD COUNT 7.2 10^3/uL (4.3-11.0)
[2017-09-17 01:59] LABS: INR 1.1 (0.8-1.4); PROTHROMBIN TIME PATIENT 14.2 SEC (12.2-14.7)
[2017-09-17 02:02] LABS: BUN/CREATININE RATIO 14; CARBON DIOXIDE 20 MMOL/L (21-32); CHLORIDE 105 MMOL/L (98-107); CREATININE SERUM 0.81 MG/DL (0.60-1.30); POTASSIUM 4.1 MMOL/L (3.6-5.0); SODIUM 140 MMOL/L (135-145)
[2017-09-17 02:03] LABS: ALANINE AMINOTRANSFERASE 46 U/L (0-55); ALBUMIN 4.3 GM/DL (3.2-4.5); ALKALINE PHOSPHATASE 77 U/L (40-136); BILIRUBIN,TOTAL 0.5 MG/DL (0.1-1.0); CALCIUM 9.5 MG/DL (8.5-10.1); GFR ESTIMATED > 60; GLUCOSE 113 MG/DL (70-105); MAGNESIUM 2.1 MG/DL (1.8-2.4); TOTAL PROTEIN 7.2 GM/DL (6.4-8.2)
--- OUTSIDE RECORDS SUMMARY | 2017-09-17 04:17 | XMS REPORT ---
Author Author ASIM LINARES [facility] Address [address] [place] [address] Care Team Providers Care Histology Aide Name Role Phone VIJAY ASIM Unavailable PROBLEMS Type Condition ICD9-CM Code LDL10-LT Code Onset Dates Condition Status SNOMED Code Problem Allergic rhinitis, unspecified allergic rhinitis trigger, unspecified rhinitis seasonality J30.9 Active 10838663 Problem Osteoarthritis of both knees, unspecified osteoarthritis type M17.0 Active 166314232 Problem Type 2 diabetes mellitus with diabetic neuropathy, without long-term current use of insulin E11.40 Active 14736053 Problem 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 Active 760446459 Problem Recurrent major depressive disorder, in partial 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 Active 25906320 Problem Chronic GERD K21.9 Active 832695879 Problem Chronic pain syndrome G89.4 Active 507782307 Problem Nocturnal hypoxemia G47.34 Active 393343602 Problem Gastroesophageal reflux disease without esophagitis K21.9 Active 701768690 Problem Elevated transaminase level R74.0 Active 371462319 Problem 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 Active 082246180 Problem Chronic obstructive pulmonary disease, unspecified COPD type J44.9 Active 07680616 Problem Mixed hyperlipidemia E78.2 Active 579623129 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 Active 2851315 Problem Essential hypertension I10 Active 46260255 Problem Hypoxia R09.02 Active 636540908 Problem Anxiety F41.9 Active 03587593 ALLERGIES No Information ENCOUNTERS Encounter Location Date Diagnosis [facility] [id number], [place] [address] Aug, [facility] [id number] [address] 18[address] Aug, [facility] [id number], [place] [address] 9[address] Aug, Essential hypertension I10 and Cough R05 [facility] [id number] [place] [address] 77836- 8911 Aug, [facility] [id number] [place] [address] 55320- 2377 Aug, [facility] [id number] [place] [address] 48219- 6301 Aug, [facility] [id number] [place] [address] 19168- 8874 Aug, Chronic pain syndrome G89.4 [facility] [id number] [place] [address] 99484- 4961 Aug, [facility] [id number] [place] [address] 72318- 2521 Aug, [facility] [id number] [place] [address] 24587- 3520 July, Gastroesophageal reflux disease without esophagitis K21.9 [facility] [id number] [place] [address] 41780- 2966 July, [facility] [id number] [place] [address] 77557- 6772 July, [facility] [id number] [place] [address] 37252- 2812 July, [facility] [id number] [place] [address] 05378- 1816 July, Essential hypertension I10 and Chronic pain syndrome G89.4 [facility] [id number] [place] [address] 11104- 1729 July, Gastroesophageal reflux disease without esophagitis K21.9 [facility] [id number] [place] [address] 80748- 4095 July, 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 [facility] [id number] [place] [address] 66262- 3086 July, Chronic obstructive pulmonary disease, unspecified COPD type J44.9 ; Nocturnal cough R05 ; 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 and Recurrent major depressive disorder, in partial 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 [facility] [id number] [place] [address] 10119- 9288 July, [facility] [id number] [place] [address] 88139- 7242 July, Type 2 diabetes mellitus with diabetic neuropathy, without long-term current use of insulin E11.40 [facility] [id number] [place] [address] 21584- 3781 July, Nocturnal hypoxemia G47.34 ; Chronic obstructive pulmonary disease, unspecified COPD type J44.9 and Nocturnal cough R05 [facility] [id number] [place] [address] 54597- 2360 July, [facility] [address] 48671- 4625 July, [facility] [address] 44002- 2044 July, [facility] [address] 43267- 7955 Jun, Chronic pain syndrome G89.4 [facility] [id number] [place] [address] 60723- 3674 Jun, [facility] [id number] [place] [address] 79580- 8226 Jun, [facility] [id number] [place] [address] 33719- 8744 Jun, 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 [facility] [id number] [place] [address] 92049- 1498 Jun, [facility] [id number] [place] [address] 53695- 8644 Jun, Gastroesophageal reflux disease without esophagitis K21.9 [facility] [id number] [place] [address] 66058- 8250 Jun, Allergic rhinitis, unspecified allergic rhinitis trigger, unspecified rhinitis seasonality J30.9 [facility] [id number] [place] [address] 18702- 7198 Jun, Chronic pain syndrome G89.4 [facility] [address] 05859- 3758 May, [facility] [id number] [place] [address] 41167- 4425 May, COPD with acute exacerbation J44.1 [facility] [address] 59513- 6320 14 May, 2017 Type 2 diabetes mellitus with diabetic neuropathy, without long-term current use of insulin E11.40 ; COPD with acute exacerbation J44.1 ; Hypoxia R09.02 ; Chronic pain syndrome G89.4 ; Yeast dermatitis B37.2 ; 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 and 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 [facility] [address] 93865- 6262 May, [facility] [id number] [place] [address] 97191- 2402 May, Chronic pain syndrome G89.4 [facility] [id number] [place] [address] 42014- 6072 May, [facility] [id number] [place] [address] 43792- 7870 May, [facility] [address] 63022- 1070 May, Mixed hyperlipidemia E78.2 [facility] [id number] [place] [address] 82439- 1763 15 May, 2017 Chronic pain syndrome G89.4 [facility] [address] [place] [address]- 8969 May, Anxiety F41.9 and Chronic pain syndrome G89.4 [facility] [id number] [place] [address] 45135- 8933 Mar, [facility] [id number] [place] [address] 66210- 9113 Mar, [facility] [id number] [place] [address] 15119- 0954 Mar, [facility] [id number] [place] [address] 37230- 6845 Mar, [facility] [id number] [place] [address] 54775- 6635 Mar, [facility] [id number] [place] [address] 44881- 2724 Mar, Anxiety F41.9 and Chronic pain syndrome G89.4 [facility] [id number] [place] [address] 39467- 4874 Mar, Medicare annual wellness visit, initial Z00.00 [...] Hiatal hernia K44.9 and Actinic keratosis L57.0 [facility] [id number] [place] [address] 91110- 3617 Mar, [facility] [id number] [place] [address] 37475- 6456 Mar, Chronic pain syndrome G89.4 [facility] [id number] [address]- 1104 Feb, [facility] [id number] [place] [address] 85773- 6596 Feb, Chronic pain syndrome G89.4 [facility] [id number] [place] [address] 49792- 9350 Feb, [facility] [id number] [place] [address] 88000- 3247 Feb, [facility] [id number] [place] [address] 65629- 6790 Feb, Anxiety F41.9 [facility] [id number] [place] [address] 84298- 4260 Feb, [facility] [id number] [place] [address] 90068- 4792 Feb, Chronic pain syndrome G89.4 [facility] [id number] [place] [address] 74736- 5502 Jan, Essential hypertension I10 [facility] [id number] [place] [address] 28567- 2556 Jan, Chronic pain syndrome G89.4 [facility] [id number] [place] [address] 30430- 6514 Jan, [facility] [id number] [place] [address] 02657- 3884 Jan, Anxiety F41.9 [facility] [id number] [place] [address] 41349- 7873 Jan, Encounter for immunization Z23 and Community acquired pneumonia, unspecified laterality J18.9 [facility] [id number] [place] [address] 05958- 6631 Jan, Type 2 diabetes mellitus with diabetic neuropathy, without long-term current use of insulin E11.40 [facility] [id number] [place] [address] 82820- 0023 Dec, Anxiety F41.9 and Chronic pain syndrome G89.4 [facility] [id number] [place] [address] 58153- 7789 23 Dec, 2016 Chronic pain syndrome G89.4 and Essential hypertension I10 [facility] [id number] [place] [address] 74466- 6788 16 Dec, 2016 [facility] [address] 04268- 9607 Dec, Anxiety F41.9 [facility] [id number] [place] [address] 02317- 2624 Dec, [facility] [address] 48632- 2284 04 Dec, 2016 Type 2 diabetes mellitus with diabetic neuropathy, without long-term current use of insulin E11.40 ; Lactic acidosis E87.2 ; Chronic obstructive pulmonary disease, unspecified COPD type J44.9 and Encounter for immunization Z23 [facility] [id number] [place] [address] 10516- 1298 02 Dec, 2016 Chronic pain syndrome G89.4 [facility] [id number] [place] [address] 53916- 0119 28 Nov, 2016 [facility] [id number] [place] [address] 81532- 2650 Nov, Chronic pain syndrome G89.4 [facility] [id number] [place] [address] 73219- 8075 Nov, [facility] [id number] [place] [address] 53867 254 Nov, [facility] [id number] [place] [address] 22635- 5126 15 Nov, 2016 Anxiety F41.9 [facility] [id number] [place] [address] 04603- 1571 11 Nov, 2016 Anxiety F41.9 [facility] [address], [place] [address]- 2925 08 Nov, 2016 [facility] [id number] [place] [address] 05245- 6662 Nov, [facility] [id number] [place] [address] 37853- 6933 Nov, [facility] [id number] [place] [address] 13801- 1564 Oct, [facility] [id number] [place] [address] 00430- 9959 Oct, [facility] [id number] [place] [address] 24818- 3639 Oct, [facility] [id number] [place] [address] 08652- 0503 Oct, Essential hypertension I10 and Chronic pain syndrome G89.4 [facility] [id number] [place] [address] 47059- 9966 Oct, Anxiety F41.9 [facility] [id number] [place] [address] 98760- 8435 Oct, [facility] [id number] [place] [address] 97145- 3189 Oct, Chronic pain syndrome G89.4 [facility] [address], [place] [address]5866 Oct, Sore throat J02.9 and Acute nasopharyngitis (common cold) J00 [facility] [address], [place] [address]- 7103 Sep, [facility] [id number] [place] [address] 13525- 0517 Sep, COPD exacerbation J44.1 [facility] [address], [place] [address]- 9080 Sep, Chronic pain syndrome G89.4 [facility] [id number] [place] [address] 58166- 1716 Sep, Essential hypertension I10 [facility] [id number] [place] [address] 83195- 2324 Sep, [facility] [id number] [place] [address] 59677- 8918 Sep, [facility] [address] 68859- 7211 Sep, Anxiety F41.9 [facility] [id number] [place] [address] 41234- 1315 Sep, Chronic pain syndrome G89.4 [facility] [id number] [place] [address] 52461- 7600 Sep, [facility] [id number] [place] [address] 99296- 8614 Aug, Acute seasonal allergic rhinitis, unspecified trigger J30.2 ; Hiatal hernia K44.9 and Chronic pain syndrome G89.4 [facility] [id number] [place] [address] 50285- 0546 Aug, [facility] [id number] [place] [address] 64505- 2874 Aug, [facility] [id number] [place] [address] 50207- 4765 Aug, Chronic obstructive pulmonary disease, unspecified COPD type J44.9 [facility] [id number] [place] [address] 27002- 6881 14 Aug, 2016 Anxiety F41.9 [facility] [id number] [place] [address] 22099- 7749 08 Aug, 2016 Chronic pain syndrome G89.4 [facility] [id number] [place] [address] 74383- 1718 07 Aug, 2016 Hiatal hernia K44.9 and Actinic keratosis L57.0 [facility] [address], [place] [address]- 2523 Aug, [facility] [id number] [place] [address] 01987- 4848 Aug, Anxiety F41.9 [facility] [address], [place] [address]- 8388 July, [facility] [id number] [place] [address] 22516- 2506 July, Hiatal hernia K44.9 [facility] [id number] [place] [address] 30414- 1811 July, [facility] [id number] [place] [address] 70590- 3346 July, Anxiety F41.9 and Chronic pain syndrome G89.4 [facility] [id number] [place] [address] 09598- 2511 July, [facility] [id number] [place] [address] 91894- 7266 Jun, Chronic pain syndrome G89.4 [facility] [id number] [place] [address] 85887- 5801 Jun, Chronic pain syndrome G89.4 [facility] [address], [place] [address]- 9816 Jun, [facility] [address], [place] [address]- 3821 Jun, Anxiety F41.9 [facility] [address], [place] [address]- 4641 Jun, Allergic rhinitis, unspecified allergic rhinitis trigger, unspecified rhinitis seasonality J30.9 [facility] [address], [place] [address]- 0678 Jun, [facility] [id number] [place] [address] 72248- 6960 May, Chronic pain syndrome G89.4 [facility] [address], [place] [address]- 9105 May, [facility] [address], [place] [address]- 0479 May, [facility] [address], [place] [address]- 8002 May, Anxiety F41.9 [facility] [address], [place] [address]- 2126 May, Type 2 diabetes mellitus with diabetic [...] Anxiety F41.9 and Chronic pain syndrome G89.4 [facility] [address], [place] [address]- 4043 May, Essential hypertension I10 ; Type 2 diabetes mellitus with diabetic neuropathy, without long-term current use of insulin E11.40 ; Mixed hyperlipidemia E78.2 ; Chronic obstructive pulmonary disease, unspecified COPD type J44.9 and Chronic GERD K21.9 [facility] [address], [place] [address]- 6465 May, [facility] [address], [place] [address]- 5231 May, [facility] [address], [place] [address]- 9556 May, Type 2 diabetes mellitus with diabetic neuropathy, without long-term current use of insulin E11.40 [facility] [address], [place] [address]- 2936 May, Dementia without behavioral disturbance, unspecified dementia type F03.90 [place] [id number] [place] [address] 43239- 8897 May, Type 2 diabetes mellitus with diabetic neuropathy, without long-term current use of insulin E11.40 ; Essential hypertension I10 ; Mixed hyperlipidemia E78.2 ; Chronic obstructive pulmonary disease, unspecified COPD type J44.9 ; Chronic GERD K21.9 and Osteoarthritis of both knees, unspecified osteoarthritis type M17.0 [facility] [id number] [place] [address] 48925- 9682 May, [facility] [id number] [place] [address] 38322- 9384 May, [facility] [id number] [place] [address] 93289- 8877 May, Anxiety F41.9 and Unspecified symptoms and signs involving cognitive functions and awareness R41.9 [facility] [id number] [place] [address] 96291- 8994 May, [facility] [id number] [place] [address] 64237- 7446 May, Type 2 diabetes mellitus with diabetic neuropathy, without long-term current use of insulin E11.40 ; Anxiety F41.9 and Chronic obstructive pulmonary disease, unspecified COPD type J44.9 [facility] [id number] [address]- 7326 May, [facility] [id number] [place] [address] 57090- 7788 May, [facility] [id number] [place] [address] 08962- 1927 May, [facility] [id number] [place] [address] 80714- 2225 May, Chronic obstructive pulmonary disease, unspecified COPD type J44.9 [facility] [id number] [place] [address] 78839- 0496 Mar, [facility] [id number] [place] [address] 58052- 7401 Mar, Arthritis of both knees M19.90 [facility] [address] 53460- 2479 16 Mar, 2016 Type 2 diabetes mellitus with diabetic neuropathy, without long-term current use of insulin E11.40 [facility] [address] 17703- 6828 Mar, [place] [address] 62125- 9149 Mar, Neck pain M54.2 and Weakness generalized R53.1 [facility] [address] 59264- 8138 Mar, [place] [facility] [address] 62543- 4723 Mar, Cervicalgia M54.2 and Impacted cerumen of both ears H61.23 [facility] [place] [id number] [place] [address] 67387- 2695 Mar, [place] [address] 98743- 2206 Mar, Type 2 diabetes mellitus with diabetic neuropathy, without long-term current use of insulin E11.40 [facility] [id number] [place] [address] 55604- 6991 Feb, [place] [address] 28414- 7458 Feb, Hypoxia R09.02 [place] [facility] [address] 50647- 7331 Feb, [place] [address] 53431- 2192 Feb, [facility] [id number] [place] [address] 51943- 9861 Feb, [facility] [facility] [address], [place] [address]- 0652 16 Feb, 2016 Type 2 diabetes mellitus with diabetic neuropathy, without long-term current use of insulin E11.40 [facility] [id number] [place] [address] 03080- 8211 15 Feb, 2016 Osteoarthritis of both knees, unspecified osteoarthritis type M17.0 [facility] [address] [place] [id number] [place] [address] 92473- 5291 14 Feb, 2016 [facility] [id number] [place] [address] [phone]- 0528 Feb, [facility] [address] [id number] [place] [address] [phone]- 5186 Feb, [facility] [id number] [place] [address] [id number]- 2813 Jan, [facility] [address] [id number] [place] [address] 66142- 8831 Jan, [facility] [id number] [place] [address] 55413- 2909 Jan, [facility] [address] [place] [id number] [place] [address] 75542- 2999 Jan, [facility] [id number] [place] [address] 19866- 7056 Jan, Tinea pedis of both feet B35.3 [facility] [id number] [place] [address] [id number]- 7431 03 Jan, 2016 Type 2 diabetes mellitus [...] seasonality J30.9 and Encounter for immunization Z23 [facility] [id number] [place] [address] 37545- 2394 Jan, [facility] [id number] [place] [address] 65480- 6749 Jan, [facility] [id number] [place] [address] 48198- 2722 Dec, [facility] [id number] [place] [address] 58591- 0749 Dec, [facility] [address] [address] Dec, Unspecified asthma with (acute) exacerbation J45.901 and Chronic obstructive pulmonary disease with (acute) exacerbation J44.1 [facility] [address] [address] Dec, Arthritis of both knees M19.90 and Acute medial meniscus tear, right, initial encounter S83.241A [facility] [id number] [place] [address] 31458- 7369 Dec, [facility] [id number] [place] [address] 17096- 7408 Dec, [facility] [id number] [place] [address] 41777- 5351 Dec, [facility] [id number] [place] [address] 68130- 5582 Dec, [facility] [id number] [place] [address] 61150- 6852 Dec, History of pneumonia Z87.01 [facility] [id number] [place] [id number]- [id number] Dec, [facility] [id number] [place] [id number]- [address]800 Dec, [place] [id number] [address] Dec, [place] [id number] [place] [id number]- [address]173 Dec, [place] [id number] [place] [address]60[address]- [address] Dec, [place] [id number] [place] [address] 02876- 4379 Dec, [place] [id number] [place] [address] 45590- 3552 Nov, Cough R05 and Pneumonia due to infectious organism, unspecified laterality, unspecified part of lung J18.9 [place] [id number] [place] [address] 36481- 9364 Nov, [place] [id number] [place] [address] 16272- 4617 Nov, Type 2 diabetes mellitus with diabetic [...] allergic rhinitis trigger, unspecified rhinitis seasonality J30.9 [place] [id number] [place] [address]60- 7330 Nov, IMMUNIZATIONS No Known Immunizations SOCIAL HISTORY [...] disease (COPD)-wears 2L O2 per [place], uses [place] for home O2 Medical History Arthritis-knees and [...] Attending 12/2016 Hospitalization History Cough- [facility] [place] 04/10/2017 [facility]ization History [facility] - Possible Pneumonia 06/2017 Hospitalization History COPD hiatal hernia 08/2017
--- OUTSIDE RECORDS SUMMARY | 2017-09-17 04:40 | XMS REPORT ---
Author Author ASIM LINARES [facility] Address [address] [place] [address] Care Team Providers Care Work Adjustment Instructor Name Role Phone VIJAY ASIM Unavailable PROBLEMS Type Condition ICD9-CM Code GPH74-GN Code Onset Dates Condition Status SNOMED Code Problem Allergic rhinitis, unspecified allergic rhinitis trigger, unspecified rhinitis seasonality J30.9 Active 81754566 Problem Osteoarthritis of both knees, unspecified osteoarthritis type M17.0 Active 178179246 Problem Type 2 diabetes mellitus with diabetic neuropathy, without long-term current use of insulin E11.40 Active 00874163 Problem 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 Active 943702737 Problem Recurrent major depressive disorder, in partial 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 Active 46933225 Problem Chronic GERD K21.9 Active 550180885 Problem Chronic pain syndrome G89.4 Active 270919328 Problem Nocturnal hypoxemia G47.34 Active 083640485 Problem Gastroesophageal reflux disease without esophagitis K21.9 Active 205066528 Problem Elevated transaminase level R74.0 Active 849549967 Problem 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 Active 943680701 Problem Chronic obstructive pulmonary disease, unspecified COPD type J44.9 Active 43048806 Problem Mixed hyperlipidemia E78.2 Active 395119284 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 Active 7207965 Problem Essential hypertension I10 Active 59653074 Problem Hypoxia R09.02 Active 684299178 Problem Anxiety F41.9 Active 36576685 ALLERGIES No Information ENCOUNTERS Encounter Location Date Diagnosis [facility] [id number] [address] Aug, [facility] [id number], [place] [address] 6537 Aug, [facility] [id number], [place] [address] 5011 Aug, Essential hypertension I10 and Cough R05 [facility] [id number] [place] [address] 12019- 7726 Aug, [facility] [id number] [place] [address] 96981- 5642 Aug, [facility] [id number] [place] [address] 36463- 4468 Aug, [facility] [id number] [place] [address] 94018- 6494 Aug, Chronic pain syndrome G89.4 [facility] [id number] [place] [address] 44087- 5784 Aug, [facility] [id number] [place] [address] 72747- 0242 Aug, [facility] [id number] [place] [address] 40212- 1373 July, Gastroesophageal reflux disease without esophagitis K21.9 [facility] [id number] [place] [address] 41677- 9115 July, [facility] [id number] [place] [address] 83761- 4619 July, [facility] [id number] [place] [address] 76894- 4080 July, [facility] [id number] [place] [address] 98707- 6714 July, Essential hypertension I10 and Chronic pain syndrome G89.4 [facility] [id number] [place] [address] 66208- 9378 July, Gastroesophageal reflux disease without esophagitis K21.9 [facility] [id number] [place] [address] 30999- 1619 July, 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 [facility] [id number] [place] [address] 73372- 7679 July, Chronic obstructive pulmonary disease, unspecified COPD type J44.9 ; Nocturnal cough R05 ; 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 and Recurrent major depressive disorder, in partial 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 [facility] [id number] [place] [address] 48781- 3097 July, [facility] [id number] [place] [address] 36658- 6003 July, Type 2 diabetes mellitus with diabetic neuropathy, without long-term current use of insulin E11.40 [facility] [id number] [place] [address] 55546- 6681 July, Nocturnal hypoxemia G47.34 ; Chronic obstructive pulmonary disease, unspecified COPD type J44.9 and Nocturnal cough R05 [facility] [id number] [place] [address] 46925- 2134 July, [facility] [address] 57079- 4114 July, [facility] [address] 92741- 6373 July, [facility] [facility] [address] 38955- 5497 Jun, Chronic pain syndrome G89.4 [facility] [id number] [place] [address] 33384- 7702 Jun, [facility] [id number] [place] [address] 97463- 8666 Jun, [facility] [id number] [place] [address] 31833- 7187 Jun, 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 [facility] [id number] [place] [address] 56731- 9916 Jun, [facility] [id number] [place] [address] 09955- 8709 Jun, Gastroesophageal reflux disease without esophagitis K21.9 [facility] [id number] [place] [address] 27441- 7681 Jun, Allergic rhinitis, unspecified allergic rhinitis trigger, unspecified rhinitis seasonality J30.9 [facility] [id number] [place] [address] 67343- 3152 Jun, Chronic pain syndrome G89.4 [facility] [address] 46542- 7986 May, [facility] [id number] [place] [address] 65838- 1185 May, COPD with acute exacerbation J44.1 [facility] [address] 29131- 5018 14 May, 2017 Type 2 diabetes mellitus with diabetic neuropathy, without long-term current use of insulin E11.40 ; COPD with acute exacerbation J44.1 ; Hypoxia R09.02 ; Chronic pain syndrome G89.4 ; Yeast dermatitis B37.2 ; 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 and 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 [facility] [address] 20978- 1616 May, [facility] [id number] [place] [address] 89901- 3531 May, Chronic pain syndrome G89.4 [facility] [id number] [place] [address] 58835- 9683 May, [facility] [id number] [place] [address] 66824- 4095 May, [facility] [address] 75354- 2575 May, Mixed hyperlipidemia E78.2 [facility] [id number] [place] [address] 25363- 2310 15 May, 2017 Chronic pain syndrome G89.4 [facility] [address] [place] [address]- 8992 May, Anxiety F41.9 and Chronic pain syndrome G89.4 [facility] [id number] [place] [address] 14989- 1854 Mar, [facility] [id number] [place] [address] 84533- 7800 Mar, [facility] [id number] [place] [address] 00306- 0641 Mar, [facility] [id number] [place] [address] 98310- 5756 Mar, [facility] [id number] [place] [address] 82335- 1935 Mar, [facility] [id number] [place] [address] 14620- 4750 Mar, Anxiety F41.9 and Chronic pain syndrome G89.4 [facility] [id number] [place] [address] 21697- 0753 Mar, Medicare annual wellness visit, initial Z00.00 [...] Hiatal hernia K44.9 and Actinic keratosis L57.0 [facility] [id number] [place] [address] 29292- 0008 Mar, [facility] [id number] [place] [address] 15284- 2858 Mar, Chronic pain syndrome G89.4 [facility] [id number] [address] 1955 Feb, [facility] [id number] [place] [address] 67876- 3945 Feb, Chronic pain syndrome G89.4 [facility] [id number] [place] [address] 61736- 9122 Feb, [facility] [id number] [place] [address] 35729- 4557 Feb, [facility] [id number] [place] [address] 85649- 7817 Feb, Anxiety F41.9 [facility] [id number] [place] [address] 50037- 0820 Feb, [facility] [id number] [place] [address] 45406- 6708 Feb, Chronic pain syndrome G89.4 [facility] [id number] [place] [address] 28719- 9935 Jan, Essential hypertension I10 [facility] [id number] [place] [address] 04533- 6540 Jan, Chronic pain syndrome G89.4 [facility] [id number] [place] [address] 31442- 6017 Jan, [facility] [id number] [place] [address] 00888- 5926 Jan, Anxiety F41.9 [facility] [id number] [place] [address] 84617- 9065 Jan, Encounter for immunization Z23 and Community acquired pneumonia, unspecified laterality J18.9 [facility] [id number] [place] [address] 21727- 1262 Jan, Type 2 diabetes mellitus with diabetic neuropathy, without long-term current use of insulin E11.40 [facility] [id number] [place] [address] 34108- 1918 Dec, Anxiety F41.9 and Chronic pain syndrome G89.4 [facility] [id number] [place] [address] 61196- 4543 23 Dec, 2016 Chronic pain syndrome G89.4 and Essential hypertension I10 [facility] [id number] [place] [address] 50715- 5433 16 Dec, 2016 [facility] [address] 85063- 0388 Dec, Anxiety F41.9 [facility] [id number] [place] [address] 28574- 4558 Dec, [facility] [address] 59051- 8425 04 Dec, 2016 Type 2 diabetes mellitus with diabetic neuropathy, without long-term current use of insulin E11.40 ; Lactic acidosis E87.2 ; Chronic obstructive pulmonary disease, unspecified COPD type J44.9 and Encounter for immunization Z23 [facility] [id number] [place] [address] 42522- 0407 02 Dec, 2016 Chronic pain syndrome G89.4 [facility] [id number] [place] [address] 56982- 4681 28 Nov, 2016 [facility] [id number] [place] [address] 40569- 2904 Nov, Chronic pain syndrome G89.4 [facility] [id number] [place] [address] 07079- 1365 Nov, [facility] [id number] [place] [address] 89134 2547 Nov, [facility] [id number] [place] [address] 90081- 5712 15 Nov, 2016 Anxiety F41.9 [facility] [id number] [place] [address] 84905- 5408 11 Nov, 2016 Anxiety F41.9 [facility] [address], [place] [address]- 8699 08 Nov, 2016 [facility] [id number] [place] [address] 85318- 6965 Nov, [facility] [id number] [place] [address] 77404- 6597 Nov, [facility] [id number] [place] [address] 04089- 3940 Oct, [facility] [id number] [place] [address] 17869- 6356 Oct, [facility] [id number] [place] [address] 26376- 8654 Oct, [facility] [id number] [place] [address] 47299- 2675 Oct, Essential hypertension I10 and Chronic pain syndrome G89.4 [facility] [id number] [place] [address] 52442- 3588 Oct, Anxiety F41.9 [facility] [id number] [place] [address] 09273- 1301 Oct, [facility] [id number] [place] [address] 07293- 5851 Oct, Chronic pain syndrome G89.4 [facility] [address], [place] [address] -3254 Oct, Sore throat J02.9 and Acute nasopharyngitis (common cold) J00 [facility] [address], [place] [address]- 8131 Sep, [facility] [id number] [place] [address] 49814- 9108 Sep, COPD exacerbation J44.1 [facility] [address], [place] [address]- 3956 Sep, Chronic pain syndrome G89.4 [facility] [id number] [place] [address] 42682- 0003 Sep, Essential hypertension I10 [facility] [id number] [place] [address] 07336- 0593 Sep, [facility] [id number] [place] [address] 57214- 8321 Sep, [facility] [address] 31162- 3856 Sep, Anxiety F41.9 [facility] [id number] [place] [address] 15549- 0203 Sep, Chronic pain syndrome G89.4 [facility] [id number] [place] [address] 41875- 6036 Sep, [facility] [id number] [place] [address] 27621- 8435 Aug, Acute seasonal allergic rhinitis, unspecified trigger J30.2 ; Hiatal hernia K44.9 and Chronic pain syndrome G89.4 [facility] [id number] [place] [address] 42346- 5642 Aug, [facility] [id number] [place] [address] 14635- 1401 Aug, [facility] [id number] [place] [address] 32245- 2628 Aug, Chronic obstructive pulmonary disease, unspecified COPD type J44.9 [facility] [id number] [place] [address] 32105- 8812 14 Aug, 2016 Anxiety F41.9 [facility] [id number] [place] [address] 69113- 0269 08 Aug, 2016 Chronic pain syndrome G89.4 [facility] [id number] [place] [address] 02142- 1034 07 Aug, 2016 Hiatal hernia K44.9 and Actinic keratosis L57.0 [facility] [address], [place] [address]- 1604 Aug, [facility] [id number] [place] [address] 53153- 7686 Aug, Anxiety F41.9 [facility] [address], [place] [address]- 2681 July, [facility] [id number] [place] [address] 20326- 2252 July, Hiatal hernia K44.9 [facility] [id number] [place] [address] 63341- 4826 July, [facility] [id number] [place] [address] 80791- 6392 July, Anxiety F41.9 and Chronic pain syndrome G89.4 [facility] [id number] [place] [address] 30276- 6119 July, [facility] [id number] [place] [address] 47833- 2233 Jun, Chronic pain syndrome G89.4 [facility] [id number] [place] [address] 92756- 6991 Jun, Chronic pain syndrome G89.4 [facility] [address], [place] [address]- 8880 Jun, [facility] [address], [place] [address]- 0428 Jun, Anxiety F41.9 [facility] [address], [place] [address]- 0680 Jun, Allergic rhinitis, unspecified allergic rhinitis trigger, unspecified rhinitis seasonality J30.9 [facility] [address], [place] [address]- 3581 Jun, [facility] [id number] [place] [address] 35742- 3455 May, Chronic pain syndrome G89.4 [facility] [address], [place] [address]- 5788 May, [facility] [address], [place] [address]- 7834 May, [facility] [address], [place] [address]- 5885 May, Anxiety F41.9 [facility] [address], [place] [address]- 1075 May, Type 2 diabetes mellitus with diabetic [...] Anxiety F41.9 and Chronic pain syndrome G89.4 [facility] [address], [place] [address]- 6601 May, Essential hypertension I10 ; Type 2 diabetes mellitus with diabetic neuropathy, without long-term current use of insulin E11.40 ; Mixed hyperlipidemia E78.2 ; Chronic obstructive pulmonary disease, unspecified COPD type J44.9 and Chronic GERD K21.9 [facility] [address], [place] [address]- 1308 May, [facility] [address], [place] [address]- 3162 May, [facility] [address], [place] [address]- 7367 May, Type 2 diabetes mellitus with diabetic neuropathy, without long-term current use of insulin E11.40 [facility] [address], [place] [address]- 3773 May, Dementia without behavioral disturbance, unspecified dementia type F03.90 [facility] [id number] [place] [address] 47460- 3280 May, Type 2 diabetes mellitus with diabetic neuropathy, without long-term current use of insulin E11.40 ; Essential hypertension I10 ; Mixed hyperlipidemia E78.2 ; Chronic obstructive pulmonary disease, unspecified COPD type J44.9 ; Chronic GERD K21.9 and Osteoarthritis of both knees, unspecified osteoarthritis type M17.0 [facility] [id number] [place] [address] 43490- 7078 May, [facility] [id number] [place] [address] 80193- 2150 May, [facility] [id number] [place] [address] 62708- 2085 May, Anxiety F41.9 and Unspecified symptoms and signs involving cognitive functions and awareness R41.9 [facility] [id number] [place] [address] 53485- 7877 May, [facility] [id number] [place] [address] 92600- 8624 May, Type 2 diabetes mellitus with diabetic neuropathy, without long-term current use of insulin E11.40 ; Anxiety F41.9 and Chronic obstructive pulmonary disease, unspecified COPD type J44.9 [facility] [id number] [place] [address]- 1134 May, [facility] [id number] [place] [address] 04749- 5615 May, [facility] [id number] [place] [address] 25018- 4967 May, [facility] [id number] [place] [address] 14804- 2851 May, Chronic obstructive pulmonary disease, unspecified COPD type J44.9 [facility] [id number] [place] [address] 29793- 6712 Mar, [facility] [id number] [place] [address] 84092- 2139 Mar, Arthritis of both knees M19.90 [facility] [address] 48389- 5434 16 Mar, 2016 Type 2 diabetes mellitus with diabetic neuropathy, without long-term current use of insulin E11.40 [facility] [address] 79862- 5500 Mar, [facility] [address] 70008- 2110 Mar, Neck pain M54.2 and Weakness generalized R53.1 [facility] [address] 27562- 7692 Mar, [facility] [address] 82350- 4855 Mar, Cervicalgia M54.2 and Impacted cerumen of both ears H61.23 [facility] [id number] [place] [address] 88961- 4019 Mar, [facility] [address] 91047- 6816 Mar, Type 2 diabetes mellitus with diabetic neuropathy, without long-term current use of insulin E11.40 [facility] [id number] [place] [address] 95879- 0628 Feb, [facility] [address] 64165- 2936 Feb, Hypoxia R09.02 [facility] [address] 69072- 2095 Feb, [facility] [address] 29850- 3246 Feb, [facility] [id number] [place] [address] 27409- 2620 Feb, [facility] [address] [place] [address]- 0268 16 Feb, 2016 Type 2 diabetes mellitus with diabetic neuropathy, without long-term current use of insulin E11.40 [facility] [id number] [place] [address] 65989- 9272 15 Feb, 2016 Osteoarthritis of both knees, unspecified osteoarthritis type M17.0 [facility] [id number] [place] [address] 83560- 4173 14 Feb, 2016 [facility] [id number] [place] [address] 73841- 9538 Feb, [facility] [id number] [place] [address] 96277- 2531 Feb, [facility] [id number] [place] [address] 10316- 4413 Jan, [facility] [id number] [place] [address] 13094- 4030 Jan, [facility] [id number] [place] [address] 02302- 3550 Jan, [facility] [id number] [place] [address] 98851- 0017 Jan, [facility] [id number] [place] [address] 03247- 3817 Jan, Tinea pedis of both feet B35.3 [facility] [id number] [place] [address] 08526- 1625 03 Jan, 2016 Type 2 diabetes mellitus [...] seasonality J30.9 and Encounter for immunization Z23 [facility] [id number] [place] [address] 50116- 7640 Jan, [facility] [id number] [place] [address] 62188- 0483 Jan, [facility] [id number] [place] [address] 59056- 6519 Dec, [facility] [id number] [place] [address] 96572- 3359 Dec, [facility] [address] 54032 -5748 Dec, Unspecified asthma with (acute) exacerbation J45.901 and Chronic obstructive pulmonary disease with (acute) exacerbation J44.1 [facility] [address] 71899- 3628 Dec, Arthritis of both knees M19.90 and Acute medial meniscus tear, right, initial encounter S83.241A [facility] [id number] [place] [address] 63713- 8730 Dec, [facility] [id number] [place] [address] 70881- 2172 Dec, [facility] [id number] [place] [address] [phone] Dec, [facility] [id number] [place] [address] [phone] Dec, [facility] [id number] [place] [address] [id number]- [id number] Dec, History of pneumonia Z87.01 [facility] [id number] [place] [address] [phone] Dec, [facility] [id number] [place] [address] [phone] Dec, [id number] [address]2 Dec, [place] [id number] [place] [phone] Dec, [place] [id number] [place] [phone] Dec, [place] [address] [place] [id number] [place] [address] [phone] Dec, [place] [address] [place] [id number] [place] [address] [phone] 30 Nov, 2015 Cough R05 and Pneumonia due to infectious organism, unspecified laterality, unspecified part of lung J18.9 [place] [address] [place] [id number] [place] [address] [phone] Nov, [place] [address] [place] [id number] [place] [address] [phone] 22 Nov, 2015 Type 2 diabetes mellitus [...] allergic rhinitis trigger, unspecified rhinitis seasonality J30.9 [place] [id number] [place] [address] [phone] 12 Nov, 2015 IMMUNIZATIONS No Known Immunizations SOCIAL HISTORY Never Assessed REASON FOR VISIT Refill request PLAN OF CARE VITAL SIGNS MEDICATIONS Unknown Medications RESULTS No Results PROCEDURES No Known procedures INSTRUCTIONS MEDICATIONS ADMINISTERED No Known Medications MEDICAL (GENERAL) HISTORY Type Description Date Medical History hypertension Medical History chronic obstructive pulmonary disease (COPD)-wears 2L O2 per [place], uses [place] for home O2 Medical History Arthritis-knees and [...] Attending 12/2016 Hospitalization History Cough- [facility] [place] 04/10/2017 Hospitalization History [facility] - Possible Pneumonia 06/2017 Hospitalization History COPD hiatal hernia 08/2017
[2017-09-17] MEDS ORDERED: NITROGLYCERIN 0.4 MG SL TABS BTL 25'S SL PRN (05:15)
[2017-09-17] MEDS ORDERED: morphine INJ 4 MG/ML 1 ML (VIAL/SYRINGE) IV PRN (05:15)
--- NOTE | 2017-09-17 05:29 | Diagnostic Imaging Report ---
INDICATION: Fall. Back pain. COMPARISON: None FINDINGS: Single frontal view of the chest demonstrates normal heart size and pulmonary vascularity. The lungs are well aerated and clear. No large pleural effusion or pneumothorax is seen. The visualized osseous structures show no acute abnormalities. IMPRESSION: 1. No acute cardiopulmonary process. Dictated by: Dictated on workstation # [id number]
[2017-09-17] MEDS ORDERED: LIDOCAINE UROJET 2% GEL 10 ML PKG TOP ONE (06:15)
[2017-09-17] MEDS: inSUlin ASPART (NovoLOG) 1 UNIT/0.01 ML (CHARGE PER UNIT) SC SCH ×2 (06:35→12:43)
--- NOTE | 2017-09-17 06:46 | Diagnostic Imaging Report ---
PROCEDURE: CT head and CT cervical spine without contrast. TECHNIQUE: Multiple contiguous axial images were obtained through the brain and cervical spine without the use of intravenous contrast. Sagittal and coronal reformations through the cervical spine were then performed. INDICATION: Fall. Back pain. COMPARISON: 03/27/2016 FINDINGS: CT head: The ventricles and cortical sulci are diffusely prominent, compatible with age-related volume loss. There are confluent areas of abnormal, low attenuation in the periventricular white matter. This is consistent with chronic small vessel ischemic changes. There is no midline shift or mass-effect. No acute intra-axial hemorrhage is seen. There are no abnormal areas of increased or decreased density to suggest acute hemorrhage or edema. No extra-axial masses or collections are present. The bony calvarium is intact. The visualized paranasal sinuses are unremarkable. The mastoid air cells are clear. CT cervical spine: Evaluation of the static alignment demonstrates reversal of normal lordotic curvature of the cervical spine, inferiorly. Findings may be related to positioning as well as spasm and/or underlying degenerative changes. There is, however, no significant anteroretrolisthesis. There is no evidence of jumped facets. Vertebral body heights are maintained. There is no evidence of acute fracture. No bony fragments are seen within the spinal canal. There are moderate multilevel degenerative changes consisting of intervertebral disc height loss with anterior and posterior disc osteophyte complex formations. These changes appear greatest at the C5-C6 and C6-C7 levels. Pre-and paravertebral soft tissue structures are unremarkable. Included portions of the lung apices show no acute abnormalities. IMPRESSION: 1. No acute intracranial abnormality. No CT evidence of mass, acute infarct or intracranial hemorrhage. 2. Chronic small vessel ischemic changes in the deep white matter. 3. Multilevel degenerative changes of the cervical spine, greatest at C5-C6 and C6-C7 levels. Dictated by: Dictated on workstation # [id number]
--- NOTE | 2017-09-17 07:21 | Diagnostic Imaging Report ---
INDICATION: Fall. Back pain. FINDINGS: Sagittal and coronal reformatted images of the thoracic and lumbar spine. Good alignment of vertebral bodies. Body height is well maintained without evidence of compression fractures. Degenerative disc disease noted throughout the thoracic and lumbar spine with hypertrophic lipping of the endplates anteriorly. Facets show good alignment with diffuse degenerative disease. No evidence of spinal stenosis. Paraspinal soft tissues appear normal. 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 Dictated by: Dictated on workstation # [id number]
[2017-09-17 08:04] LABS: BASOPHILS % (AUTO) 0 % (0-10); EOSINOPHILS # (AUTO) 0.2 10^3/uL (0.0-0.3); EOSINOPHILS % (AUTO) 3 % (0-10); HEMATOCRIT 40 % (40-54); HEMOGLOBIN 13.4 G/DL (13.3-17.7); LYMPHOCYTES # (AUTO) 1.3 X 10^3 (1.0-4.0); LYMPHOCYTES % (AUTO) 18 % (12-44); MEAN CORPUSCULAR HEMOGLOBIN 30 PG (25-34); MEAN CORPUSCULAR HGB CONC 34 G/DL (32-36); MEAN CORPUSCULAR VOLUME 88 FL (80-99); MEAN PLATELET VOLUME 9.1 FL (7.4-10.4); MONOCYTES # (AUTO) 0.9 X 10^3 (0.0-1.0); MONOCYTES % (AUTO) 12 % (0-12); NEUTROPHILS % (AUTO) 67 % (42-75); PLATELET COUNT 212 10^3/uL (130-400); RED BLOOD COUNT 4.49 10^6/uL (4.35-5.85); RED CELL DISTRIBUTION WIDTH 12.9 % (10.0-14.5); WHITE BLOOD COUNT 7.4 10^3/uL (4.3-11.0)
[2017-09-17 08:28] LABS: ALANINE AMINOTRANSFERASE 48 U/L (0-55); ALBUMIN 4.4 GM/DL (3.2-4.5); ALKALINE PHOSPHATASE 77 U/L (40-136); BILIRUBIN,TOTAL 0.5 MG/DL (0.1-1.0); BUN/CREATININE RATIO 11; CALCIUM 9.5 MG/DL (8.5-10.1); CARBON DIOXIDE 23 MMOL/L (21-32); CHLORIDE 105 MMOL/L (98-107); CHOLESTEROL 102 MG/DL (< 200); CREATININE SERUM 0.79 MG/DL (0.60-1.30); GFR ESTIMATED > 60; GLUCOSE 133 MG/DL (70-105); HDL CHOLESTEROL 34 MG/DL (40-60); POTASSIUM 4.2 MMOL/L (3.6-5.0); SODIUM 141 MMOL/L (135-145); TOTAL PROTEIN 7.4 GM/DL (6.4-8.2); TRIGLYCERIDES 101 MG/DL (<150); VLDL CHOLESTEROL 20 MG/DL (5-40)
[2017-09-17 08:33] LABS: CARDIAC PROFILE 2 < 0.30 NG/ML (<0.30)
[2017-09-17] MEDS ORDERED: ASPIRIN E.C. 81 MG (ECOTRIN) TAB PO SCH (09:00)
[2017-09-17] MEDS ORDERED: CHLO PO ×2 (11:09)
[2017-09-17] MEDS ORDERED: TRAM50TA2 PO ×2 (11:09→11:39)
[2017-09-17] MEDS ORDERED: ACET-2469 PO (11:09)
[2017-09-17] MEDS ORDERED: LORA10TA76 PO (11:09)
--- NOTE | 2017-09-17 11:40 | Discharge Instructions ---
Discharge [facility] Discharge Medications Changed Medications: Tramadol HCl (Tramadol HCl) 50 Mg Tablet 50 MG PO BID PRN for PAIN-MODERATE, #1 TAB (Changed from: DAILY) Continued Medications: Amlodipine Besylate (Amlodipine Besylate) 10 Mg Tablet 10 MG PO HS, TAB Atorvastatin Calcium (Atorvastatin Calcium) 40 Mg Tablet 40 MG PO HS, TAB Clonazepam (Clonazepam) 1 Mg Tablet 1 MG PO TID, TAB Clopidogrel Bisulfate (Clopidogrel) 75 Mg Tablet 75 MG PO DAILY, TAB Doxazosin Mesylate (Doxazosin Mesylate) 4 Mg Tablet 4 MG PO DAILY, TAB Fluticasone Propionate (Fluticasone Propionate) 16 Gm [place].susp 2 SPRAYS NS DAILY PRN for ALLERGIES, EA Glipizide (Glipizide) 5 Mg Tablet 5 MG PO BID, TAB Glycerin/Propylene Glycol (Lubricant Eye Drops) 15 Ml Drops 1 DROP OU QID PRN for DRY EYES, DROPS Guaifenesin/Dextromethorphan (Guaifenesin Dm Syrup) 5 Ml Syrup 10 ML PO TID PRN for COUGH, ML Ipratropium/Albuterol Sulfate (Iprat-Albut 0.5-3(2.5) mg/3 ml) 3 Ml Ampul.neb 3 ML IH TID, EACH Loratadine (Claritin) 10 Mg Tablet 10 MG PO DAILY, TAB Metformin HCl (Metformin HCl) 500 Mg Tablet 250 MG PO DAILY PRN for BS ABOVE 200, TAB Mirabegron (Myrbetriq) 25 Mg Tab.er.24h 25 MG PO HS, TAB Montelukast Sodium (Montelukast Sodium) 10 Mg Tablet 10 MG PO 1700, TAB Multivitamin (Daily Multiple Vitamin) 1 Each Tablet 1 TAB PO DAILY, TAB Pantoprazole Sodium (Pantoprazole Sodium) 40 Mg Tablet.dr 40 MG PO DAILY, TAB Pregabalin (Lyrica) 100 Mg Capsule 100 MG PO TID, CAP Ranitidine HCl (Ranitidine HCl) 150 Mg Tablet 150 MG PO BID, TAB Rivastigmine (Rivastigmine) 1 Each Patch.td24 4.6 MG TD DAILY, PATCH Triamcinolone Acet (Triamcinolone Acetonide 0.1% Cream) 15 Gm Cr TP BID PRN for BED SORES, EA Vilazodone Hydrochloride (Viibryd) 10 Mg Tablet 10 MG PO HS, TAB Discontinued Medications: Acetaminophen/Diphenhydramine (Tylenol Pm Ex-Strength Caplet) 1 Each Tablet 2 TAB PO HS, TAB Chlorphen/Dm/Acetaminophen/GG (Coricidin Hbp Day-Night Pack) 1 Each Tb.cp.seq 2 TAB PO HS, CAP TAKES 2 NIGHTTIME TABLETS Chlorphen/Dm/Acetaminophen/GG (Coricidin Hbp Day-Night Pack) 1 Each Tb.cp.seq 1 CAP PO 1200, CAP DAYTIME CAPSULE Chlorphen/Dm/Acetaminophen/GG (Coricidin Hbp Day-Night Pack) 1 Each Tb.cp.seq 2 CAP PO DAILY, CAP DAY TIME CAPSULES Levocetirizine Dihydrochloride (Levocetirizine Dihydrochloride) 5 Mg Tablet 5 MG PO 1700, TAB Tramadol HCl (Tramadol HCl) 50 Mg Tablet 50 MG PO DAILY, TAB Patient Instructions Goal/Follow Up Appt: Follow up with Dr. Hartley at [facility] tomorrow, September 18 at noon. Return to The Hospital For: Confusion, dizziness, chest pain Activity & Diet Discharge Diet: ADA Diet Activity as Tolerated: Yes ROBBY HANLEY MD Sep 17, 2017 11:33 am
--- NOTE | 2017-09-17 14:02 | Short Stay Summary ---
History of Present Illness History of Present Illness Reason for visit/HPI 81 yo male states ( and caregiver also provide history) that he caught his foot under the edge of his couch on Friday and fell. His states she told him to use his walker, but he did not. He denies any dizziness, chest pain or palpitations prior to or after falling. He states he came to the ER last night due to coughing fit which is now resolved and he is anxious to go home. Date of Admission Sep 17, 2017 at 03:45 Date of Discharge September 17, 2017 Time Seen by Provider: 11:23 Attending Physician Robby Castro MD Consult Allergies and Home Medications Allergies Coded Allergies: aspirin (Unverified Allergy, Unknown, 05/20/14) codeine (Verified Allergy, Unknown, 04/07/06) hydrocodone (Unverified Allergy, Unknown, 10/16/15) Uncoded Allergies: SSRI (Allergy, Unknown, 05/20/14) TCA (Allergy, Unknown, 05/20/14) Home Medications Amlodipine Besylate 10 Mg Tablet, 10 MG PO HS, (Reported) Atorvastatin Calcium 40 Mg Tablet, 40 MG PO HS, (Reported) Clonazepam 1 Mg Tablet, 1 MG PO TID, (Reported) Clopidogrel Bisulfate 75 Mg Tablet, 75 MG PO DAILY, (Reported) Doxazosin Mesylate 4 Mg Tablet, 4 MG PO DAILY, (Reported) Fluticasone Propionate 16 Gm [place].susp, 2 SPRAYS NS DAILY PRN for ALLERGIES, ( Reported) Glipizide 5 Mg Tablet, 5 MG PO BID, (Reported) Glycerin/Propylene Glycol 15 Ml Drops, 1 DROP OU QID PRN for DRY EYES, (Reported ) Guaifenesin/Dextromethorphan 5 Ml Syrup, 10 ML PO TID PRN for COUGH, (Reported) Ipratropium/Albuterol Sulfate 3 Ml Ampul.neb, 3 ML IH TID, (Reported) Loratadine 10 Mg Tablet, 10 MG PO DAILY, (Reported) Metformin HCl 500 Mg Tablet, 250 MG PO DAILY PRN for BS ABOVE 200, (Reported) Mirabegron 25 Mg Tab.er.24h, 25 MG PO HS, (Reported) Montelukast Sodium 10 Mg Tablet, 10 MG PO 1700, (Reported) Multivitamin 1 Each Tablet, 1 TAB PO DAILY, (Reported) Pantoprazole Sodium 40 Mg Tablet.dr, 40 MG PO DAILY, (Reported) Pregabalin 100 Mg Capsule, 100 MG PO TID, (Reported) Ranitidine HCl 150 Mg Tablet, 150 MG PO BID, (Reported) Rivastigmine 1 Each Patch.td24, 4.6 MG TD DAILY, (Reported) Tramadol HCl 50 Mg Tablet, 50 MG PO BID PRN for PAIN-MODERATE Prescribed by: ROBBY CASTRO on 09/17/17 1139 Triamcinolone Acet 15 Gm Cr, TP BID PRN for BED SORES, (Reported) Vilazodone Hydrochloride 10 Mg Tablet, 10 MG PO HS, (Reported) Patient Home Medication List Home Medication List Reviewed: Yes Past Cpmjqwh-Hltmyr-Elztmp Hx Patient Social History Alcohol Use: Denies Use Recreational Drug Use: No Smoking Status: Former Smoker Former Smoker, Quit: Mar 31, 1966 Type Used: Cigars 2nd Hand Smoke Exposure: No Physical Abuse Screen: No Sexual Abuse: No Recent Foreign Travel: No Contact w/other who traveled: No Recent Hopitalizations: No Recent Infectious Disease Expo: No Immunizations Up To Date Tetanus Booster (TDap): Unknown Date of Pneumonia Vaccine: Mar 31, 2016 Date of Influenza Vaccine: Dec 19, 2016 Seasonal Allergies Seasonal Allergies: No Surgeries Yes (RIGHT EYELID BASAL CELL CANCER, hernia repair) Abdominal, Adenoidectomy, Eye Surgery, Prostatectomy, Tonsillectomy Respiratory Yes (O2 DEPENDENT AT 3L/NC CONTINUOUSLY) COPD, Emphysema, Pneumonia Currently Using CPAP: No Currently Using BIPAP: No Cardiovascular No Chronic Edema/Swelling, High Cholesterol, Hypertension Neurological Yes Dementia Reproductive System Hx Reproductive Disorders: No Sexually Transmitted Disease: No HIV/AIDS: No Genitourinary Yes (PROSTATE CANCER > 10 YEARS AGO) Prostate Problems, Kidney Stones Gastrointestinal Yes Abdominal Hernia, Gastroesophageal Reflux, Polyps, Hiatal Hernia Musculoskeletal Yes Arthritis Endocrine History of Endocrine Disorders: Yes Endocrine Disorders: Diabetes, Non-Insulin dep HEENT History of HEENT Disorders: Yes HEENT Disorders: Cataract Loss of Vision: Right Hearing Impairment: Denies Cancer Yes Skin Did You Recieve Any Treatments: Yes Type of Treatment: Surgical Intervention Cancer Comment: Right eyelid removed. Psychosocial History of Psychiatric Problem: Yes Behavioral Health Disorders: Anxiety, Depression Integumentary History of Skin or Integumenta: Yes (SKIN CANCER) Blood Transfusions History of Blood Disorders: No Adverse Reaction to a Blood Tr: No Family Medical History Significant Family History: Heart Disease, Lung Disease Family Hx: FH: breast cancer G8 SISTER Myocardial infarction 19 FATHER Constitutional: No fever Respiratory: No cough, No short of breath Cardiovascular: No chest pain Gastrointestinal: No abdominal pain, No nausea, No vomiting Genitourinary: no symptoms reported Musculoskeletal: no symptoms reported Skin: no symptoms reported Psychiatric/Neurological: No Symptoms Reported Physical Exam Vital Signs Vital Signs - First Documented 09/17/17 01:10 Temp 96.8 Pulse 86 Resp 18 B/P (MAP) 139/73 (95) Pulse Ox 96 O2 Delivery Nasal Cannula O2 Flow Rate 3.00 Capillary Refill : Less Than 3 Seconds General Appearance: No Apparent Distress HEENT: Other (ectropion of lower eyelids) Neck: Other (kyphotic) Respiratory: Lungs Clear, Normal Breath Sounds Cardiovascular: Regular Rate, Rhythm, No Murmur Back: Other (kyphotic) Neurologic/Psychiatric: Alert, Normal Mood/Affect Skin: Normal Color, Warm/Dry Short Stay Diagnosis Discharge Diagnosis-Short Stay Admission Diagnosis: Fall Chest pain Cough Elevated AST Final Discharge Diagnosis: Fall- discussed with him and he has walker that he needs to use, he is not interested in going anywhere besides home, but would be interested in restarting home health (not yet ordered) which has just finished. In ER CT head was done which showed chonic small vessel changes, no acute findings. 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 Chest pain- he denies, work-up includes negative troponin and BNP Cough- resolved with no treatment, CXR unremarkable Elevated AST- new in last couple of months, has no abdominal symptoms, recommend further evaluation outpatient Conclusion Labs Laboratory Tests 09/17/17 01:34: White Blood Count 7.2, Red Blood Count 4.18L, Hemoglobin 12.5L, Hematocrit 37L, Mean Corpuscular Volume 88, Mean Corpuscular Hemoglobin 30, Mean Corpuscular Hemoglobin Concent 34, Red Cell Distribution Width 12.8, Platelet Count 218, Mean Platelet Volume 9.1, Neutrophils (%) (Auto) 53, Lymphocytes (%) (Auto) 29, Monocytes (%) (Auto) 15H, Eosinophils (%) (Auto) 3, Basophils (%) (Auto) 0, Neutrophils # (Auto) 3.8, Lymphocytes # (Auto) 2.1, Monocytes # (Auto) 1.1H, Eosinophils # (Auto) 0.2, Basophils # (Auto) 0.0, Prothrombin Time 14.2, INR Comment 1.1, Activated Partial Thromboplast Time 31, Sodium Level 140, Potassium Level 4.1, Chloride Level 105, Carbon Dioxide Level 20L, Anion Gap 15H , Blood Urea Nitrogen 11, Creatinine 0.81, Estimat Glomerular Filtration Rate > 60, BUN/Creatinine Ratio 14, Glucose Level 113H, Calcium Level 9.5, Magnesium Level 2.1, Total Bilirubin 0.5, Aspartate Amino Transf (AST/SGOT) 52H, Alanine Aminotransferase (ALT/SGPT) 46, Alkaline Phosphatase 77, Troponin I < 0.30, B- Type Natriuretic Peptide 10.7, Total Protein 7.2, Albumin 4.3 09/17/17 07:55: White Blood Count 7.4, Red Blood Count 4.49, Hemoglobin 13.4, Hematocrit 40, Mean Corpuscular Volume 88, Mean Corpuscular Hemoglobin 30, Mean Corpuscular Hemoglobin Concent 34, Red Cell Distribution Width 12.9, Platelet Count 212, Mean Platelet Volume 9.1, Neutrophils (%) (Auto) 67, Lymphocytes (%) (Auto) 18, Monocytes (%) (Auto) 12, Eosinophils (%) (Auto) 3, Basophils (%) (Auto) 0, Neutrophils # (Auto) 5.0, Lymphocytes # (Auto) 1.3, Monocytes # (Auto) 0.9, Eosinophils # (Auto) 0.2, Basophils # (Auto) 0.0, Sodium Level 141, Potassium Level 4.2, Chloride Level 105, Carbon Dioxide Level 23, Anion Gap 13, Blood Urea Nitrogen 9, Creatinine 0.79, Estimat Glomerular Filtration Rate > 60, BUN/ Creatinine Ratio 11, Glucose Level 133H, Calcium Level 9.5, Total Bilirubin 0.5 , Aspartate Amino Transf (AST/SGOT) 52H, Alanine Aminotransferase (ALT/SGPT) 48 , Alkaline Phosphatase 77, Troponin I < 0.30, Total Protein 7.4, Albumin 4.4, Triglycerides Level 101, Cholesterol Level 102, LDL Cholesterol Direct 49, VLDL Cholesterol 20, HDL Cholesterol 34L 09/17/17 11:57: Glucometer 130H Conclusion/Plan See final discharge diagnosis Copy Copies To 1: DARIN PINEDO MD, BETHANY N MD Sep 17, 2017 2:02 pm
== END 2017-09-17 11:32 | disposition home or self-care (01) ==
LOC: EDUNIT# 00:52 → ER 00:55 → UNDOADMOB 03:45 → 4TH 03:45 → UNDODISOB 13:20
PROVIDERS: ADMIT Family Medicine; ATTEND Family Medicine
DX: R07.9 Chest pain, unspecified (principal); S00.93XA Contusion of unspecified part of head, initial encounter; R05 Cough; R42 Dizziness and giddiness; J43.9 Emphysema, unspecified; I10 Essential (primary) hypertension; E78.00 Pure hypercholesterolemia, unspecified; F03.90 Unspecified dementia, unspecified severity, without behavioral disturbance, psychotic disturbance, mood disturbance, and anxiety; Z79.899 Other long term (current) drug therapy; R74.0 Nonspecific elevation of levels of transaminase and lactic acid dehydrogenase [LDH]; K21.9 Gastro-esophageal reflux disease without esophagitis; K44.9 Diaphragmatic hernia without obstruction or gangrene; M51.35 Other intervertebral disc degeneration, thoracolumbar region; Z79.84 Long term (current) use of oral hypoglycemic drugs; Z87.891 Personal history of nicotine dependence; W22.8XXA Striking against or struck by other objects, initial encounter; Y92.019 Unspecified place in single-family (private) house as the place of occurrence of the external cause; Z99.81 Dependence on supplemental oxygen; Z85.46 Personal history of malignant neoplasm of prostate
CPT/HCPCS: 36415; 70450; 71045; 72125; 72128; 72131; 80053; 80061; 82962; 83735; 83880; 84484; 85025; 85610; 85730; 93005; 93041; 99211

== ENCOUNTER 2018-01-05 15:36 | Emergency (ER) | payer MEDICARE, MEDICAID ==
[~2018-01-05] VITALS: Ht 182.9 cm; Wt 111.6 kg
[~2018-01-05 15:36] MED LIST changes: -AMLO10TA2 PO; +AMLO10TA6 PO; -BENA20TA2 PO; +BENA20TA7 PO; -BENZ-13 PO; +BENZ-36 PO; +BENZ100C18 PO; +CETI10TA20 PO; +CLON1TAB13 PO; -CLON1TAB3 PO; +CLOP75TA28 PO; -IPRA3AMP IH; +IPRA3AMP31 IH; +LORA10TA76 PO; +METF-397 PO; -METF500T5 PO; +NYST15CR TOP
--- OUTSIDE RECORDS SUMMARY | 2018-01-05 15:42 | XMS REPORT | Clinical Summary ---
Author Author [facility] Organization [facility] Address Unknown Phone Unavailable Care Team Providers Care Clinical Staff Rn Name Role Phone PCP Unavailable Allergies Not on File Current Medications Not on file Active Problems Not on file Social History Tobacco Use Types Packs/Day Years Used Date Never Assessed Sex Assigned at Date Recorded Not on file Last Filed Vital Signs Not on file Plan of Treatment Not on file Results Not on filefrom Last 3 Months
--- OUTSIDE RECORDS SUMMARY | 2018-01-05 15:43 | XMS REPORT ---
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 Active 486424649 Problem Mixed hyperlipidemia E78.2 Active 044002546 Problem Type 2 diabetes mellitus with diabetic neuropathy, without long-term current use of insulin E11.40 Active 58432918 Problem Chronic obstructive pulmonary disease, unspecified COPD type J44.9 Active 90583039 Problem Hypoxia R09.02 Active 439660103 Problem Osteoarthritis of both knees, unspecified osteoarthritis type M17.0 Active 310968421 Problem Allergic rhinitis, unspecified allergic rhinitis trigger, unspecified rhinitis seasonality J30.9 Active 53615873 Problem Chronic pain syndrome G89.4 Active 315323355 ALLERGIES Substance Reaction Event Type Date Status Hydrocodone-Acetaminophen Unknown Drug Allergy Nov, Active Codeine Sulfate Unknown Drug Allergy Nov, Active Aspirin Unknown Drug Allergy Nov, Active ENCOUNTERS Encounter Location Date Diagnosis [facility] [address] [address] Nov, [facility] [address] [address]- [address] Nov, Encounter for immunization Z23 [facility] [address] [address]- [address] Nov, [facility] [address] 64[address]- [address]18 Nov, Dermatitis associated with moisture L30.8 ; Pressure injury of buttock, stage 1, unspecified laterality L89.301 and Seasonal allergies J30.2 [facility] [address] [address]- 5[address] Nov, [facility] [address] 132[address]- 9524 Nov, [facility] [address] 21168- 4747 17 Nov, 2017 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 [place] [place] [address] [address]- 8215 14 Nov, 2017 [place] [address] 24080- 0879 Nov, Unspecified urinary incontinence R32 and Unspecified contact dermatitis due to other agents L25.8 [place] [address] 24197- 4171 11 Nov, 2017 Chronic pain syndrome G89.4 [facility] [address] 27606- 8538 10 Nov, 2017 Type 2 diabetes mellitus with diabetic neuropathy, without long-term current use of insulin E11.40 [facility] [address] 6[address]49- 4916 04 Nov, 2017 [facility] [address] 65604- 8632 Nov, Chronic obstructive pulmonary disease, unspecified COPD type J44.9 and Gastroesophageal reflux disease without esophagitis K21.9 [facility] [id number] [place] [address] 45932- 3756 Oct, [facility] [id number] [place] [address] 35010- 0431 Oct, [facility] [id number] [place] [address] 51107- 2124 Oct, Chronic pain syndrome G89.4 [facility] [id number] [place] [address] 72009- 3866 Oct, Community acquired bacterial pneumonia J15.9 ; Allergic rhinitis, unspecified allergic rhinitis trigger, unspecified rhinitis seasonality J30.9 ; Type 2 diabetes mellitus with diabetic neuropathy, without long-term current use of insulin E11.40 ; Chronic GERD K21.9 and Chronic obstructive pulmonary disease, unspecified COPD type J44.9 [facility] [place] [id number] [place] [address] 92657- 0341 Oct, [facility] [id number] [place] [address] 25580- 4800 Oct, [facility] [place] [id number] [place] [address] 04229- 7125 Oct, [facility] [place] [id number] [place] [address] 41084- 5797 Oct, [facility] [place] [id number] [place] [address] 88135- 6813 Oct, Essential hypertension I10 [facility] [id number] [place] [address] 60920- 8343 Oct, Type 2 diabetes mellitus with diabetic neuropathy, without long-term current use of insulin E11.40 ; Chronic obstructive pulmonary disease , unspecified COPD type J44.9 ; Mixed hyperlipidemia E78.2 ; Osteoarthritis of both knees, unspecified osteoarthritis type M17.0 ; 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 and Essential hypertension I10 [facility] [address] [address] 6[address] Oct, [facility] [id number] [place] [address] 29242- 9791 Oct, [facility] [address] [address] 8220 Oct, Yeast dermatitis B37.2 [facility] [id number] [place] [address] 19941- 5778 Oct, Chronic pain syndrome G89.4 [facility] [id number] [place] [address] 51205- 9599 Sep, [facility] [id number] [place] [address] 39169- 1978 Sep, [facility] [id number] [place] [address] 72927- 3974 Sep, 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 and Chronic pain syndrome G89.4 [facility] [id number] [place] [address] 23416- 6069 Sep, COPD with acute exacerbation J44.1 [facility] [address] [place] [address] 59133- 2118 Sep, [facility] [address] [address]- 0312 Sep, [facility] [id number] [place] [address] 66760- 2578 Sep, Gastroesophageal reflux disease without esophagitis K21.9 [facility] [address], [place] [address]- 0015 Aug, [facility] [id number] [place] [address] 48796- 0135 Aug, [facility] [address], [place] [address]- 6809 Aug, 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 ; Hospital discharge follow-up Z09 ; Chronic obstructive pulmonary disease, unspecified COPD type J44.9 and Chronic GERD K21.9 [facility] [place] [id number] [place] [address] 17913- 8518 Aug, Chronic pain syndrome G89.4 [facility] [place] [id number] [place] [address] 81672- 2336 Aug, [facility] [place] [id number] [place] [address] 08713- 9297 Aug, [facility] [place] [id number] [place] [address] 68969- 0621 18 Aug, 2017 Chronic pain syndrome G89.4 and 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 [facility] [place] [id number] [place] [address] 68367- 0683 18 Aug, 2017 Type 2 diabetes mellitus with diabetic neuropathy, without long-term current use of insulin E11.40 ; Chronic obstructive pulmonary disease , unspecified COPD type J44.9 ; Chronic GERD K21.9 and 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 [facility] [place] [id number] [place] [address] 83252- 9843 Aug, [facility] [place] [id number] [place] [address] 07520- 3932 15 Aug, 2017 Essential hypertension I10 and Cough R05 [facility] [id number] [place] [address] 15804- 3903 Aug, [place] [id number] [place] [address] 53904- 5052 12 Aug, 2017 [place] [id number] [place] [address] 57308- 4905 07 Aug, 2017 [facility] [id number] [place] [address] 17584- 7570 06 Aug, 2017 Chronic pain syndrome G89.4 [place] [id number] [place] [address] 94976- 8015 Aug, [facility] [id number] [place] [address] 13138- 0677 Aug, [facility] [id number] [place] [address] 77256- 6449 July, Gastroesophageal reflux disease without esophagitis K21.9 [facility] [id number] [place] [address] 18624- 9185 July, [facility] [id number] [place] [address] 46288- 8111 July, [facility] [id number] [place] [address] 41811- 4500 July, [facility] [id number] [place] [address] 67643- 7178 July, Essential hypertension I10 and Chronic pain syndrome G89.4 [place] [id number] [place] [address] 02526- 5772 July, Gastroesophageal reflux disease without esophagitis K21.9 [facility] [id number] [place] [address] 39764- 0036 July, 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 [place] [id number] [place] [address] 01470- 2460 July, Chronic obstructive pulmonary disease, unspecified COPD type J44.9 ; Nocturnal cough R05 ; 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 and Recurrent major depressive disorder, in partial 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 [place] [id number] [place] [address] 07854- 0409 July, [place] [address] [address] [id number] [place] [address] 39085- 0711 July, Type 2 diabetes mellitus with diabetic neuropathy, without long-term current use of insulin E11.40 [place] [id number] [place] [address] 38340- 1369 July, Nocturnal hypoxemia G47.34 ; Chronic obstructive pulmonary disease, unspecified COPD type J44.9 and Nocturnal cough R05 [facility] [id number] [place] [address] 66430- 8450 July, [facility] [id number] [place] [address] 85157- 6582 July, [facility] [id number] [place] [address] 84282- 0751 July, [facility] [address] 01833- 7418 Jun, Chronic pain syndrome G89.4 [facility] [id number] [place] [address] 56262- 5585 Jun, [facility] [id number] [place] [address] 32902- 5653 Jun, [facility] [address] 43855- 5708 Jun, 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 [facility] [id number] [place] [address] 71516- 2058 Jun, [facility] [id number] [place] [address] 20313- 0898 Jun, Gastroesophageal reflux disease without esophagitis K21.9 [facility] [id number] [place] [address] 30917- 1366 Jun, Allergic rhinitis, unspecified allergic rhinitis trigger, unspecified rhinitis seasonality J30.9 [facility] [id number] [place] [address] 82403- 2274 Jun, Chronic pain syndrome G89.4 [facility] [id number] [place] [address] 05524- 8277 May, [facility] [id number] [place] [address] 76105- 5173 May, COPD with acute exacerbation J44.1 [facility] [id number] [place] [address] 30848- 4433 14 May, 2017 Type 2 diabetes mellitus with diabetic neuropathy, without long-term current use of insulin E11.40 ; COPD with acute exacerbation J44.1 ; Hypoxia R09.02 ; Chronic pain syndrome G89.4 ; Yeast dermatitis B37.2 ; 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 and 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 [facility] [address] 14361- 6384 May, [facility] [address] 50997- 1193 May, Chronic pain syndrome G89.4 [place] [address] 48787- 1963 May, [place] [id number] [place] [address] 25904- 7280 May, [facility] [address] 20404- 3530 May, Mixed hyperlipidemia E78.2 [facility] [address] 13204- 7193 15 May, 2017 Chronic pain syndrome G89.4 [facility] [id number] [place] [address] 93028- 6088 May, Anxiety F41.9 and Chronic pain syndrome G89.4 [facility] [id number] [place] [address] 30499- 7802 Mar, [facility] [id number] [place] [address] 43460- 0139 Mar, [facility] [address] 67999- 2310 Mar, [facility] [id number] [place] [address] 92536- 4980 Mar, [facility] [address] [place] [address]- 4286 Mar, [facility] [id number] [place] [address] 44533- 7058 Mar, Anxiety F41.9 and Chronic pain syndrome G89.4 [facility] [id number] [place] [address] 40679- 6449 Mar, Medicare annual wellness visit, initial Z00.00 [...] L57.0 [facility] [id number] [place] [address] 04591- 6934 Mar, [facility] [id number] [place] [address] 34644- 2849 Mar, Chronic pain syndrome G89.4 [facility] [id number] [place] [address] 23869- 0714 Feb, [facility] [id number] [place] [address] 11075- 5884 Feb, Chronic pain syndrome G89.4 [facility] [id number] [place] [address] 81330- 5981 Feb, [facility] [id number] [place] [address] 37188- 7253 Feb, [facility] [id number] [place] [address] 70408- 9370 Feb, Anxiety F41.9 [facility] [address] [place] [address]- 2643 Feb, [facility] [id number] [place] [address] 49931- 1611 Feb, Chronic pain syndrome G89.4 [facility] [id number] [place] [address] 62932- 9111 Jan, Essential hypertension I10 [facility] [address] 45311- 3746 Jan, Chronic pain syndrome G89.4 [facility] [address] 37181- 3525 Jan, [facility] [address] 01373- 5991 Jan, Anxiety F41.9 [facility] [address] 08696- 3516 Jan, Encounter for immunization Z23 and Community acquired pneumonia, unspecified laterality J18.9 [facility] [id number] [place] [address] 15929- 7112 Jan, Type 2 diabetes mellitus with diabetic neuropathy, without long-term current use of insulin E11.40 [facility] [id number] [place] [address] 14374- 0504 Dec, Anxiety F41.9 and Chronic pain syndrome G89.4 [facility] [id number] [place] [address] 38310- 7625 Dec, Chronic pain syndrome G89.4 and Essential hypertension I10 [facility] [id number] [place] [address] 73528- 7522 Dec, [facility] [address] 99868- 5814 Dec, Anxiety F41.9 [facility] [id number] [place] [address] 16107- 7656 Dec, [facility] [id number] [place] [address] 09204- 0600 Dec, Type 2 diabetes mellitus with diabetic neuropathy, without long-term current use of insulin E11.40 ; Lactic acidosis E87.2 ; Chronic obstructive pulmonary disease, unspecified COPD type J44.9 and Encounter for immunization Z23 [facility] [id number] [place] [address] 15822- 9658 Dec, Chronic pain syndrome G89.4 [facility] [id number] [place] [address] 75890- 3219 Nov, [facility] [address] 79198- 7877 Nov, Chronic pain syndrome G89.4 [facility] [id number] [place] [address] 82436- 2659 Nov, [facility] [address] 57677- 9513 Nov, [facility] [id number] [place] [address] 87959- 4543 Nov, Anxiety F41.9 [facility] [id number] [place] [address] 57906- 0592 Nov, Anxiety F41.9 [facility] [id number] [place] [address] 50352- 2523 Nov, [facility] [id number] [place] [address] 04581- 7387 Nov, [facility] [id number] [place] [address] 17080- 2724 Nov, [facility] [id number] [place] [address] 78561- 8541 Oct, [facility] [id number] [place] [address] 25757- 9645 Oct, [facility] [id number] [place] [address] 47168- 6538 Oct, [facility] [address], [place] [address]- 0543 Oct, Essential hypertension I10 and Chronic pain syndrome G89.4 [facility] [id number] [place] [address] 65106- 2892 Oct, Anxiety F41.9 [facility] [id number] [place] [address] 94314- 6226 Oct, [facility] [id number] [place] [address] 81853- 6276 Oct, Chronic pain syndrome G89.4 [facility] [id number] [place] [address] 93859 -2491 Oct, Sore throat J02.9 and Acute nasopharyngitis (common cold) J00 [facility] [id number] [place] [address] 02349- 1620 Sep, [facility] [id number] [place] [address] 40397- 4843 Sep, COPD exacerbation J44.1 [facility] [id number] [place] [address] 93870- 9483 Sep, Chronic pain syndrome G89.4 [facility] [address], [place] [address]- 3647 Sep, Essential hypertension I10 [facility] [id number] [place] [address] 29562- 2007 Sep, [facility] [id number] [place] [address] 08236- 8141 Sep, [facility] [id number] [place] [address] 67788- 1972 Sep, Anxiety F41.9 [facility] [address], [place] [address]- 2101 Sep, Chronic pain syndrome G89.4 [facility] [id number] [place] [address] 26011- 7990 Sep, [facility] [id number] [place] [address] 81145- 7415 Aug, Acute seasonal allergic rhinitis, unspecified trigger J30.2 ; Hiatal hernia K44.9 and Chronic pain syndrome G89.4 [facility] [id number] [place] [address] 45771- 5958 Aug, [facility] [id number] [place] [address] 45623- 6012 Aug, [facility] [id number] [place] [address] 19793- 5843 Aug, Chronic obstructive pulmonary disease, unspecified COPD type J44.9 [facility] [id number] [place] [address] 10152- 4282 Aug, Anxiety F41.9 [facility] [id number] [place] [address] 16244- 4274 Aug, Chronic pain syndrome G89.4 [facility] [id number] [place] [address] 21598- 5386 Aug, Hiatal hernia K44.9 and Actinic keratosis L57.0 [facility] [id number] [place] [address] 81301- 1518 Aug, [facility] [id number] [place] [address] 40029- 8694 Aug, Anxiety F41.9 [facility] [id number] [place] [address] 20028- 7828 July, [facility] [id number] [place] [address] 39618- 7906 July, Hiatal hernia K44.9 [facility] [id number] [place] [address] 32187- 7374 July, [facility] [id number] [place] [address] 23725- 7823 July, Anxiety F41.9 and Chronic pain syndrome G89.4 [facility] [id number] [place] [address] 16544- 0380 July, [facility] [id number] [place] [address] 71455- 9515 Jun, Chronic pain syndrome G89.4 [facility] [id number] [place] [address] 53429- 0453 Jun, Chronic pain syndrome G89.4 [facility] [id number] [place] [address] 37139- 8210 Jun, [facility] [id number] [place] [address] 10414- 4200 Jun, Anxiety F41.9 [facility] [id number] [place] [address] 41828- 7164 Jun, Allergic rhinitis, unspecified allergic rhinitis trigger, unspecified rhinitis seasonality J30.9 [facility] [id number] [place] [address] [phone] Jun, [facility] [id number] [place] [address] [phone] May, Chronic pain syndrome G89.4 [facility] [id number] [place] [address] [phone] May, [facility] [id number] [place] [address] [phone] May, [facility] [address] [place] [id number] [place] [address] 55782- 1059 May, Anxiety F41.9 [facility] [id number] [place] [address] 61770- 2428 May, Type 2 diabetes mellitus with diabetic [...] Anxiety F41.9 and Chronic pain syndrome G89.4 [place] [address] [place] [id number] [place] [address] 77271- 5524 May, Essential hypertension I10 ; Type 2 diabetes mellitus with diabetic neuropathy, without long-term current use of insulin E11.40 ; Mixed hyperlipidemia E78.2 ; Chronic obstructive pulmonary disease, unspecified COPD type J44.9 and Chronic GERD K21.9 [place] [address] [place] [id number] [place] [address] 66049- 1628 May, [place] [address] [place] [id number] [place] [address] 45936- 5060 May, [place] [address] 92311- 1046 May, Type 2 diabetes mellitus with diabetic neuropathy, without long-term current use of insulin E11.40 [place] [address] [place] [id number] [address] 93468- 9955 May, Dementia without behavioral disturbance, unspecified dementia type F03.90 [place] [address] [place] [id number] [place] [address] 16650- 4698 May, Type 2 diabetes mellitus with diabetic neuropathy, without long-term current use of insulin E11.40 ; Essential hypertension I10 ; Mixed hyperlipidemia E78.2 ; Chronic obstructive pulmonary disease, unspecified COPD type J44.9 ; Chronic GERD K21.9 and Osteoarthritis of both knees, unspecified osteoarthritis type M17.0 [place] [address] [place] [id number] [place] [address] 49092- 3082 May, [place] [address] [place] [id number] [place] [address] 29756- 5637 May, [place] [address] [place] [id number] [address] 86971- 5477 May, Anxiety F41.9 and Unspecified symptoms and signs involving cognitive functions and awareness R41.9 [place] [address] [place] [id number] [place] [address] 77711- 0640 May, [place] [address] [place] [id number] [place] [address] 88841- 8295 May, Type 2 diabetes mellitus with diabetic neuropathy, without long-term current use of insulin E11.40 ; Anxiety F41.9 and Chronic obstructive pulmonary disease, unspecified COPD type J44.9 [place] [address] [place] [id number] [place] [address] 18964- 6977 May, [place] [address] [place] [id number] [place] [address] 65777- 7752 May, [place] [address] 41317- 3542 May, [place] [address] [place] [id number] [place] [address] 46229- 8336 May, Chronic obstructive pulmonary disease, unspecified COPD type J44.9 [place] [address] [place] [id number] [place] [address] 01354- 7398 Mar, [place] [address] [place] [id number] [place] [address] 47763- 1205 Mar, Arthritis of both knees M19.90 [place] [address] [place] [id number] [place] [address] 39406- 7183 Mar, Type 2 diabetes mellitus with diabetic neuropathy, without long-term current use of insulin E11.40 [place] [address] [place] [id number] [place] [address] 47464- 1682 Mar, [place] [address] [place] [id number] [place] [address] 18143- 7666 Mar, Neck pain M54.2 and Weakness generalized R53.1 [place] [address] [place] [id number] [place] [address] 30357- 6854 Mar, [facility] [id number] [place] [address] 36899- 4807 Mar, Cervicalgia M54.2 and Impacted cerumen of both ears H61.23 [facility] [id number] [place] [address] 23102- 5906 Mar, [facility] [id number] [place] [address] 54002- 9984 Mar, Type 2 diabetes mellitus with diabetic neuropathy, without long-term current use of insulin E11.40 [facility] [id number] [place] [address] 71452- 4417 Feb, [facility] [id number] [place] [address] 29982- 4530 Feb, Hypoxia R09.02 [facility] [address] 73957- 1956 Feb, [facility] [id number] [place] [address] 17600- 2224 Feb, [facility] [id number] [place] [address] 50978- 2657 Feb, [facility] [id number] [place] [address] 55581- 0136 Feb, Type 2 diabetes mellitus with diabetic neuropathy, without long-term current use of insulin E11.40 [facility] [id number] [place] [address] 71858- 2888 15 Feb, 2016 Osteoarthritis of both knees, unspecified osteoarthritis type M17.0 [facility] [id number] [place] [address] 07422- 2004 14 Feb, 2016 [facility] [id number] [place] [address] 38013- 4732 12 Feb, 2016 [facility] [id number] [place] [address] 56903- 7960 Feb, [facility] [id number] [place] [address] 54258- 9624 Jan, [facility] [id number] [place] [address] 42005- 8343 Jan, [facility] [id number] [place] [address] 83504- 5199 Jan, [facility] [address] 55154- 2040 Jan, [facility] [address] 77148- 2543 Jan, Tinea pedis of both feet B35.3 [facility] [id number] [place] [address] 44335- 5141 Jan, Type 2 diabetes mellitus with diabetic [...] for immunization Z23 [facility] [id number] [place] [address] 97408- 0230 Jan, [facility] [id number] [place] [address] 36169- 8056 Jan, [facility] [address] 61560- 3636 Dec, [facility] [id number] [place] [address] 99234- 5333 Dec, [facility] [address] 51249 -8559 Dec, Unspecified asthma with (acute) exacerbation J45.901 and Chronic obstructive pulmonary disease with (acute) exacerbation J44.1 [facility] [id number] [place] [address] 76260- 3005 Dec, Arthritis of both knees M19.90 and Acute medial meniscus tear, right, initial encounter S83.241A [facility] [id number] [place] [address] 44784- 7594 Dec, [facility] [id number] [place] [address] 86211- 5027 Dec, [facility] [id number] [place] [address] 28868- 0202 Dec, [facility] [id number] [place] [address] 32782- 1220 Dec, [facility] [id number] [place] [address] 81664- 3880 Dec, History of pneumonia Z87.01 [facility] [id number] [place] [address] 07621- 9882 Dec, [facility] [id number] [place] [address] 53698- 3342 Dec, [facility] [id number] [place] [address] 70089- 9159 Dec, [facility] [id number] [place] [address] 53849- 1783 Dec, [facility] [id number] [place] [address] 38048- 6772 Dec, [facility] [id number] [place] [address] 06363- 6341 Dec, [facility] [id number] [place] [address] 71456- 5188 30 Nov, 2015 Cough R05 and Pneumonia due to infectious organism, unspecified laterality, unspecified part of lung J18.9 [place] [id number] [facility] [id number] [address]- [address] Nov, [place] [address] [place] [id number] [address]- 6470 Nov, Type 2 diabetes mellitus with diabetic [...] allergic rhinitis trigger, unspecified rhinitis seasonality J30.9 [place] [address] [place] [id number] [address]- 9864 Nov, IMMUNIZATIONS No Known Immunizations SOCIAL HISTORY Never Assessed REASON FOR VISIT Pain (acute)-MAKAYLA howell, patient complains of about spot on his left butt cheek , states that it pereira, been going on about three months now. PLAN OF CARE Activity Details Follow Up 2 Weeks Reason: VITAL SIGNS Height 72 in 2017-12-10 Weight 230.0 lbs 2017-12-10 Temperature 97.5 degrees Fahrenheit 2017-12-10 Heart Rate 91 bpm 2017-12-10 Respiratory Rate 22 2017-12-10 Oximetry w/ oxygen @ 2L:95 % 2017-12-10 BMI 31.19 kg/m2 2017-12-10 Blood pressure systolic 110 mmHg 2017-12-10 Blood pressure diastolic 64 mmHg 2017-12-10 MEDICATIONS Medication Instructions Dosage Frequency Start Date End Date Duration Status Pantoprazole Sodium 40 mg Orally Once a day 1 tablet 24h 30 days Active Coricidin HBP Day/Night Cold 10-20 &15-200-2 MG Orally 2 Daytime pills Q AM at 5 am and 2 Nighttime pills at hs 8 pm 2 tablets Active Doxazosin Mesylate 4 MG Orally at bedtime 1 tablet Active Viibryd 10 mg Orally at night 1 tablet with food 90 days Active Amlodipine Besylate 10 mg Orally Once a day 1 tablet 24h 30 days Active Montelukast Sodium 10 mg Orally Once a day 1 tablet in the evening 24h 30 days Active Exelon 4.6 MG/24HR APPLY ONE PATCH TO HAIR-FREE AREA ABOVE THE WAIST AND CHANGE EVERY 24 HOURS Active Fluticasone Propionate 50 MCG/ACT Nasally Once a day at hs 1 spray in each nostril Aug, Active Levocetirizine Dihydrochloride 5 mg Orally Once a day 1 tablet in the evening 24h Jan, 30 days Active Loratadine 10 MG Orally Once a day 1 tablet 24h 30 day(s) Active Lyrica 100 mg Orally Three times a day 1 capsule 8h 28 days Active Atorvastatin Calcium 40 mg Orally Once a day 1 tablet 24h Active Benzonatate 100 mg Orally at bedtime 1 capsule as needed Sep, 30 days Active Lancets - test blood sugar Jan, 30 days Active Multivitamin Adult - Active Myrbetriq 25 TAKE ONE TABLET BY MOUTH DAILY DIRECTED 90 Active Fish Oil 1000 MG Orally Twice a day 1 capsule 12h Active GlipiZIDE 5 mg Orally twice a day 1 tablet 12h 30 days Active Clonazepam 1 MG Orally 3 times a day 1 tablet 8h 28 days Active Ipratropium-Albuterol 0.5-2.5 (3) MG/3ML Inhalation every 4 hrs 3 ml 4h Sep, 10 days Active Plavix 75 MG Orally Once a day 1 tablet 24h 25 Jul, 2017 Active Metformin HCl 500 mg Orally Once a day (pt only takes 1/2 tab PRN gluocse over 180) 1 tablet with a meal Active Sucralfate 1 GM Active Zantac 150 mg Orally 2 times a day 1 tablet 12h Jun, 30 day(s) Active Lubricant Drops both eyes 4 times a day PRN dryness 1 drop Active Tramadol HCl 50 mg Orally every 12 hrs 1 tablet as needed 12h 28 days Active Nystatin 057641 UNIT/GM Externally Twice a day 1 application to affected area 12h May, Active Oxygen nc continuously 2 liters Active Triamcinolone Acetonide 0.1 % Externally Twice a day to as needed 1 application to affected area Jan, 30 days Active RESULTS No Results PROCEDURES Procedure Date Ordered Result Body Site [facility] VISIT ESTABLISHED PATIENT Dec 10, 2017 INSTRUCTIONS MEDICATIONS ADMINISTERED No Known Medications MEDICAL (GENERAL) HISTORY Type Description Date Medical History hypertension Medical History chronic obstructive pulmonary disease (COPD)-wears 2L O2 per [place], uses [place] for home O2 Medical History [...] TIA, [facility] 2014 Hospitalization History COPD exacerbation--[facility] 12/27/2015 [facility] - fall 02/2016 [facility] History [facility] pneumonia 11/2016 Hospitalization History COPD exacerbation - Dr Hartley Attending 12/2016 Hospitalization History Cough- [facility] [place] 04/10/2017 Hospitalization History [facility] - Possible Pneumonia 06/2017 Hospitalization History COPD hiatal hernia 08/2017
--- OUTSIDE RECORDS SUMMARY | 2018-01-05 15:44 | XMS REPORT ---
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 Active 812223924 Problem Mixed hyperlipidemia E78.2 Active 867634131 Problem Type 2 diabetes mellitus with diabetic neuropathy, without long-term current use of insulin E11.40 Active 20843559 Problem Chronic obstructive pulmonary disease, unspecified COPD type J44.9 Active 22459574 Problem Hypoxia R09.02 Active 433828888 Problem Osteoarthritis of both knees, unspecified osteoarthritis type M17.0 Active 544528623 Problem Allergic rhinitis, unspecified allergic rhinitis trigger, unspecified rhinitis seasonality J30.9 Active 43274012 Problem Chronic pain syndrome G89.4 Active 806877324 ALLERGIES No Information ENCOUNTERS Encounter Location Date Diagnosis [facility] [address], [place] [address] Nov, [facility] [id number] [place] [address] 19397- 3466 27 Nov, 2017 Encounter for immunization Z23 [facility] [address] 14604- 5565 27 Nov, 2017 [place] [address] 6[address]- 8079 Nov, Dermatitis associated with moisture L30.8 ; Pressure injury of buttock, stage 1, unspecified laterality L89.301 and Seasonal allergies J30.2 [place] [id number] [place] [address] 99902- 3920 Nov, [place] [address] 42171- 5988 25 Nov, 2017 [place] [address] 16346- 3631 17 Nov, 2017 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 [place] [address] 60553- 4458 14 Nov, 2017 [place] [address] 84342- 4559 12 Nov, 2017 Unspecified urinary incontinence R32 and Unspecified contact dermatitis due to other agents L25.8 [place] [id number] [place] [address] 30950- 6689 11 Nov, 2017 Chronic pain syndrome G89.4 [place] [address] 97635- 3746 10 Nov, 2017 Type 2 diabetes mellitus with diabetic neuropathy, without long-term current use of insulin E11.40 [place] [address] 03095- 4427 04 Nov, 2017 [place] [id number] [place] [address] 71339- 7343 04 Nov, 2017 Chronic obstructive pulmonary disease, unspecified COPD type J44.9 and Gastroesophageal reflux disease without esophagitis K21.9 [place] [id number] [place] [address] 89898- 9042 Oct, [facility] [id number] [place] [address] 99189- 8122 Oct, [facility] [id number] [place] [address] 18009- 7338 Oct, Chronic pain syndrome G89.4 [facility] [id number] [place] [address] 36803- 6479 Oct, Community acquired bacterial pneumonia J15.9 ; Allergic rhinitis, unspecified allergic rhinitis trigger, unspecified rhinitis seasonality J30.9 ; Type 2 diabetes mellitus with diabetic neuropathy, without long-term current use of insulin E11.40 ; Chronic GERD K21.9 and Chronic obstructive pulmonary disease, unspecified COPD type J44.9 [facility] [id number] [place] [address] 26094- 4528 Oct, [facility] [id number] [place] [address] 04454- 6524 Oct, [facility] [id number] [place] [address] 23906- 7624 Oct, [facility] [id number] [place] [address] 71922- 2641 Oct, [facility] [id number] [place] [address] 04961- 3948 Oct, Essential hypertension I10 [facility] [id number] [place] [address] 54591- 3628 Oct, Type 2 diabetes mellitus with diabetic neuropathy, without long-term current use of insulin E11.40 ; Chronic obstructive pulmonary disease , unspecified COPD type J44.9 ; Mixed hyperlipidemia E78.2 ; Osteoarthritis of both knees, unspecified osteoarthritis type M17.0 ; 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 and Essential hypertension I10 [facility] [address], [place] [address] 8776 Oct, [facility] [address], [place] [address] 6287 Oct, [facility] [id number] [place] [address] 47424- 0492 Oct, Yeast dermatitis B37.2 [facility] [id number] [place] [address] 49079- 0682 Oct, Chronic pain syndrome G89.4 [facility] [id number] [place] [address] 99443- 8058 Sep, [facility] [id number] [place] [address] 62759- 7012 Sep, [facility] [id number] [place] [address] 66725- 0249 Sep, 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 and Chronic pain syndrome G89.4 [facility] [id number] [place] [address] 97363- 2496 Sep, COPD with acute exacerbation J44.1 [facility] [address], [place] [address]- 8267 Sep, [facility] [id number] [place] [address] 35027- 7174 Sep, [facility] [address], [place] [address] 1780 Sep, Gastroesophageal reflux disease without esophagitis K21.9 [facility] [address], [place] [address]- 9947 Aug, [facility] [address], [place] [address]- 0873 Aug, [facility] [id number] [place] [address] 58193- 5429 Aug, 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 ; Hospital discharge follow-up Z09 ; Chronic obstructive pulmonary disease, unspecified COPD type J44.9 and Chronic GERD K21.9 [place] [id number] [place] [address] 13737- 7596 Aug, Chronic pain syndrome G89.4 [facility] [id number] [place] [address] 92991- 3949 Aug, [facility] [id number] [place] [address] 28539- 6925 Aug, [facility] [id number] [place] [address] 48773- 6571 Aug, Chronic pain syndrome G89.4 and 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 [place] [address] 98491- 9387 Aug, Type 2 diabetes mellitus with diabetic neuropathy, without long-term current use of insulin E11.40 ; Chronic obstructive pulmonary disease , unspecified COPD type J44.9 ; Chronic GERD K21.9 and 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 [facility] [id number] [place] [address] 77026- 8022 Aug, [facility] [id number] [place] [address] 66360- 1874 Aug, Essential hypertension I10 and Cough R05 [facility] [id number] [place] [address] 13054- 3361 Aug, [facility] [id number] [place] [address] 98073- 8633 Aug, [facility] [id number] [place] [address] 82800- 8921 Aug, [facility] [id number] [place] [address] 16473- 8399 Aug, Chronic pain syndrome G89.4 [facility] [id number] [place] [address] 23126- 7221 Aug, [facility] [id number] [place] [address] 76539- 4795 Aug, [place] [id number] [place] [address] 64579- 0164 July, Gastroesophageal reflux disease without esophagitis K21.9 [place] [id number] [place] [address] 48361- 4064 July, [place] [id number] [place] [address] 34576- 2991 July, [place] [id number] [place] [address] 73068- 8046 July, [place] [id number] [place] [address] 48334- 3306 July, Essential hypertension I10 and Chronic pain syndrome G89.4 [place] [id number] [place] [address] 22151- 9390 July, Gastroesophageal reflux disease without esophagitis K21.9 [place] [id number] [place] [address] 55673- 3062 July, 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 [place] [id number] [place] [address] 75721- 0593 July, Chronic obstructive pulmonary disease, unspecified COPD type J44.9 ; Nocturnal cough R05 ; 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 and Recurrent major depressive disorder, in partial 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 [place] [id number] [place] [address] 44667- 6990 July, [place] [id number] [place] [address] 68699- 3334 July, Type 2 diabetes mellitus with diabetic neuropathy, without long-term current use of insulin E11.40 [place] [id number] [place] [address] 47971- 4126 July, Nocturnal hypoxemia G47.34 ; Chronic obstructive pulmonary disease, unspecified COPD type J44.9 and Nocturnal cough R05 [place] [id number] [place] [address] 53218- 1439 July, [facility] [id number] [place] [address] 60101- 1068 July, [facility] [id number] [place] [address] 37727- 7072 July, [facility] [id number] [place] [address] 37270- 8875 Jun, Chronic pain syndrome G89.4 [facility] [id number] [place] [address] 73961- 4679 Jun, [facility] [id number] [place] [address] 16326- 2697 Jun, [facility] [id number] [place] [address] 89126- 2457 Jun, 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 [facility] [id number] [place] [address] 52960- 8526 Jun, [facility] [id number] [place] [address] 48990- 7961 Jun, Gastroesophageal reflux disease without esophagitis K21.9 [facility] [id number] [place] [address] 07243- 2995 Jun, Allergic rhinitis, unspecified allergic rhinitis trigger, unspecified rhinitis seasonality J30.9 [facility] [id number] [place] [address] 74038- 9143 Jun, Chronic pain syndrome G89.4 [facility] [id number] [place] [address] 51274- 5313 May, [facility] [id number] [place] [address] 75217- 9143 15 May, 2017 COPD with acute exacerbation J44.1 [facility] [id number] [place] [address] 49214- 8195 14 May, 2017 Type 2 diabetes mellitus with diabetic neuropathy, without long-term current use of insulin E11.40 ; COPD with acute exacerbation J44.1 ; Hypoxia R09.02 ; Chronic pain syndrome G89.4 ; Yeast dermatitis B37.2 ; 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 and 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 [facility] [id number] [place] [address] 63847- 1787 May, [facility] [address] 74754- 5310 May, Chronic pain syndrome G89.4 [facility] [id number] [place] [address] 84783- 7022 May, [facility] [address] 98234- 6401 May, [facility] [address] 92443- 1974 May, Mixed hyperlipidemia E78.2 [facility] [address] 42357- 4253 May, Chronic pain syndrome G89.4 [facility] [address] 62355- 3810 May, Anxiety F41.9 and Chronic pain syndrome G89.4 [facility] [id number] [place] [address] 36854- 2620 Mar, [facility] [id number] [place] [address] 72380- 9267 Mar, [facility] [id number] [place] [address] 64247- 0255 Mar, [facility] [id number] [place] [address] 93198- 5407 Mar, [facility] [id number] [place] [address] 85394- 0072 Mar, [facility] [address] 55888- 3822 Mar, Anxiety F41.9 and Chronic pain syndrome G89.4 [place] [id number] [place] [address] 54965- 8862 Mar, Medicare annual wellness visit, initial Z00.00 [...] Hiatal hernia K44.9 and Actinic keratosis L57.0 [place] [id number] [place] [address] 68773- 7291 Mar, [place] [id number] [place] [address] 86805- 2543 Mar, Chronic pain syndrome G89.4 [place] [id number] [place] [address] 66796- 2846 Feb, [place] [id number] [place] [address] 69508- 9103 Feb, Chronic pain syndrome G89.4 [place] [id number] [place] [address] 13894- 1621 Feb, [place] [id number] [place] [address] 49865- 2663 Feb, [place] [id number] [place] [address] 15870- 3349 Feb, Anxiety F41.9 [place] [id number] [place] [address] 72724- 3471 Feb, [place] [id number] [place] [address] 81761- 2222 Feb, Chronic pain syndrome G89.4 [facility] [id number] [place] [address] 82799- 0188 Jan, Essential hypertension I10 [facility] [id number] [place] [address] 05343- 7192 Jan, Chronic pain syndrome G89.4 [facility] [address] 86505- 0521 Jan, [place] [id number] [place] [address] 30942- 5767 Jan, Anxiety F41.9 [place] [address] 18995- 4662 Jan, Encounter for immunization Z23 and Community acquired pneumonia, unspecified laterality J18.9 [place] [id number] [place] [address] 69431- 8284 Jan, Type 2 diabetes mellitus with diabetic neuropathy, without long-term current use of insulin E11.40 [place] [id number] [place] [address] 27990- 1711 Dec, Anxiety F41.9 and Chronic pain syndrome G89.4 [place] [id number] [place] [address] 88594- 0803 Dec, Chronic pain syndrome G89.4 and Essential hypertension I10 [place] [id number] [place] [address] 05707- 1738 Dec, [facility] [id number] [place] [address] 40891- 5454 Dec, Anxiety F41.9 [facility] [id number] [place] [address] 63059- 2410 Dec, [facility] [id number] [place] [address] 22102- 7634 Dec, Type 2 diabetes mellitus with diabetic neuropathy, without long-term current use of insulin E11.40 ; Lactic acidosis E87.2 ; Chronic obstructive pulmonary disease, unspecified COPD type J44.9 and Encounter for immunization Z23 [facility] [id number] [place] [address] 50062- 1573 Dec, Chronic pain syndrome G89.4 [facility] [id number] [place] [address] 17011- 6589 Nov, [facility] [id number] [place] [address] 58473- 1209 Nov, Chronic pain syndrome G89.4 [facility] [id number] [place] [address] 15659- 4286 Nov, [facility] [id number] [place] [address] 54161- 8488 Nov, [facility] [id number] [place] [address] 09359- 3209 Nov, Anxiety F41.9 [facility] [id number] [place] [address] 02184- 4727 Nov, Anxiety F41.9 [facility] [id number] [place] [address] 91672- 5051 Nov, [facility] [id number] [place] [address] 31210- 1942 Nov, [facility] [id number] [place] [address] 35114- 0409 Nov, [facility] [id number] [place] [address] 03723- 1344 Oct, [facility] [id number] [place] [address] 68827- 2133 Oct, [facility] [address] [place] [address] 03551- 7423 Oct, [facility] [id number] [place] [address] 88305- 4604 Oct, Essential hypertension I10 and Chronic pain syndrome G89.4 [facility] [id number] [place] [address] 77305- 1235 Oct, Anxiety F41.9 [facility] [id number] [place] [address] 13532- 4526 Oct, [facility] [id number] [place] [address] 01877- 0311 Oct, Chronic pain syndrome G89.4 [facility] [id number] [place] [address] 60182 -1695 Oct, Sore throat J02.9 and Acute nasopharyngitis (common cold) J00 [facility] [id number] [place] [address] 01730- 1639 Sep, [facility] [id number] [place] [address] 74317- 3906 Sep, COPD exacerbation J44.1 [facility] [id number] [place] [address] 22817- 6334 Sep, Chronic pain syndrome G89.4 [facility] [id number] [place] [address] 31723- 3251 Sep, Essential hypertension I10 [facility] [id number] [place] [address] 73190- 7576 Sep, [facility] [id number] [place] [address] 85569- 3383 Sep, [facility] [address] [place] [address] 48297- 0816 Sep, Anxiety F41.9 [facility] [id number] [place] [address] 92054- 6919 Sep, Chronic pain syndrome G89.4 [facility] [id number] [place] [address] 93005- 3921 Sep, [facility] [id number] [place] [address] 66220- 5497 Aug, Acute seasonal allergic rhinitis, unspecified trigger J30.2 ; Hiatal hernia K44.9 and Chronic pain syndrome G89.4 [facility] [id number] [place] [address] 70196- 9948 Aug, [facility] [id number] [place] [address] 59289- 1390 Aug, [facility] [id number] [place] [address] 47342- 8809 Aug, Chronic obstructive pulmonary disease, unspecified COPD type J44.9 [facility] [id number] [place] [address] 33059- 7146 14 Aug, 2016 Anxiety F41.9 [facility] [id number] [place] [address] 33951- 5418 Aug, Chronic pain syndrome G89.4 [facility] [id number] [place] [address] 79636- 3204 Aug, Hiatal hernia K44.9 and Actinic keratosis L57.0 [place] [id number] [place] [address] 16968- 4219 Aug, [facility] [id number] [place] [address] 75546- 5838 Aug, Anxiety F41.9 [facility] [id number] [place] [address] 04843- 2016 July, [facility] [id number] [place] [address] 37636- 5558 July, Hiatal hernia K44.9 [facility] [address] [place] [address] 41338- 5398 July, [facility] [id number] [place] [address] 31511- 0790 July, Anxiety F41.9 and Chronic pain syndrome G89.4 [facility] [address], [place] [address]- 9893 July, [facility] [id number] [place] [address] [id number]- 0046 Jun, Chronic pain syndrome G89.4 [facility] [id number] [place] [address] 88413- 1012 Jun, Chronic pain syndrome G89.4 [facility] [id number] [place] [address] 23246- 7087 Jun, [facility] [id number] [place] [address] 68608- 3727 Jun, Anxiety F41.9 [facility] [id number] [place] [address] 14627- 4738 Jun, Allergic rhinitis, unspecified allergic rhinitis trigger, unspecified rhinitis seasonality J30.9 [facility] [id number] [place] [address] 10410- 2080 Jun, [facility] [id number] [place] [address] 20631- 3750 May, Chronic pain syndrome G89.4 [facility] [id number] [place] [address] 77690- 6753 May, [facility] [id number] [place] [address] 37032- 4161 May, [facility] [id number] [place] [address] 11238- 3971 May, Anxiety F41.9 [facility] [id number] [place] [address] 45105- 8328 May, Type 2 diabetes mellitus with diabetic [...] Anxiety F41.9 and Chronic pain syndrome G89.4 [place] [id number] [place] [address] 39972- [phone] May, Essential hypertension I10 ; Type 2 diabetes mellitus with diabetic neuropathy, without long-term current use of insulin E11.40 ; Mixed hyperlipidemia E78.2 ; Chronic obstructive pulmonary disease, unspecified COPD type J44.9 and Chronic GERD K21.9 [place] [id number] [place] [address] [phone]- [phone] May, [place] [address] [phone]- 3510 May, [place] [address] [phone]- [phone] May, Type 2 diabetes mellitus with diabetic neuropathy, without long-term current use of insulin E11.40 [facility] [id number] [place] [address] 09225- 0515 May, Dementia without behavioral disturbance, unspecified dementia type F03.90 [place] [id number] [place] [address] [phone]- [phone] May, Type 2 diabetes mellitus with diabetic neuropathy, without long-term current use of insulin E11.40 ; Essential hypertension I10 ; Mixed hyperlipidemia E78.2 ; Chronic obstructive pulmonary disease, unspecified COPD type J44.9 ; Chronic GERD K21.9 and Osteoarthritis of both knees, unspecified osteoarthritis type M17.0 [place] [id number] [place] [address] [phone]- [phone] May, [place] [id number] [place] [address] [phone]- [phone] May, [place] [id number] [place] [address] 92238- [phone] May, Anxiety F41.9 and Unspecified symptoms and signs involving cognitive functions and awareness R41.9 [facility] [id number] [place] [address] [phone]- [phone] May, [facility] [id number] [place] [address] [address]- [address] May, Type 2 diabetes mellitus with diabetic neuropathy, without long-term current use of insulin E11.40 ; Anxiety F41.9 and Chronic obstructive pulmonary disease, unspecified COPD type J44.9 [facility] [id number] [place] [address] 61872- 9931 May, [facility] [id number] [place] [address] 93237- 4624 May, [facility] [id number] [place] [address] 15050- 1530 May, [facility] [id number] [place] [address] 14642- 8765 May, Chronic obstructive pulmonary disease, unspecified COPD type J44.9 [facility] [id number] [place] [address] 54372- 8376 Mar, [facility] [id number] [place] [address] 75369- 3849 Mar, Arthritis of both knees M19.90 [facility] [id number] [place] [address] 22674- 4359 Mar, Type 2 diabetes mellitus with diabetic neuropathy, without long-term current use of insulin E11.40 [facility] [id number] [place] [address] 59120- 6534 Mar, [facility] [id number] [place] [address] 51244- 6640 Mar, Neck pain M54.2 and Weakness generalized R53.1 [facility] [id number] [place] [address] 73575- 9940 Mar, [facility] [address] [place] [address] Mar, Cervicalgia M54.2 and Impacted cerumen of both ears H61.23 [facility] [address] 53838- 3894 Mar, [facility] [address] 87883- 8529 Mar, Type 2 diabetes mellitus with diabetic neuropathy, without long-term current use of insulin E11.40 [facility] [id number] [place] [address] 17486- 8725 Feb, [facility] [address] 88520- 4147 Feb, Hypoxia R09.02 [facility] [address] 46230- 1354 Feb, [facility] [address] 31796- 2381 Feb, [facility] [id number] [place] [address] 70946- 4511 Feb, [facility] [id number] [place] [address] 24798- 7879 16 Feb, 2016 Type 2 diabetes mellitus with diabetic neuropathy, without long-term current use of insulin E11.40 [facility] [id number] [place] [address] 41501- 3700 Feb, Osteoarthritis of both knees, unspecified osteoarthritis type M17.0 [facility] [id number] [place] [address] 49304- 5495 Feb, [facility] [id number] [place] [address] 83973- 8660 Feb, [facility] [id number] [place] [address] 66720- 3591 09 Feb, 2016 [facility] [address] 38978- 3455 Jan, [facility] [id number] [place] [address] 02466- 3172 Jan, [facility] [id number] [place] [address] 21885- 8524 Jan, [facility] [address] 35904- 1632 Jan, [facility] [address] 48659- 0439 Jan, Tinea pedis of both feet B35.3 [address] 01545- 3552 03 Jan, 2016 Type 2 diabetes mellitus [...] seasonality J30.9 and Encounter for immunization Z23 [facility] [id number] [place] [address] 37602- 2110 Jan, [facility] [id number] [place] [address] 45307- 2933 Jan, [facility] [id number] [place] [address] 18844- 8911 Dec, [facility] [address] 22015- 3610 Dec, [facility] [id number] [place] [address] 04985 -7380 Dec, Unspecified asthma with (acute) exacerbation J45.901 and Chronic obstructive pulmonary disease with (acute) exacerbation J44.1 [facility] [address] [address] Dec, Arthritis of both knees M19.90 and Acute medial meniscus tear, right, initial encounter S83.241A [facility] [id number] [place] [address], [place] [address]- 9870 Dec, [facility] [id number] [place] [address] 48353- 6752 Dec, [facility] [id number] [place] [address] 50978- 0381 14 Dec, 2015 [facility] [id number] [place] [address] 64334- 6691 Dec, [facility] [id number] [place] [address] 70242- 8980 Dec, History of pneumonia Z87.01 [facility] [id number] [place] [address] 31204- 7684 Dec, [facility] [id number] [place] [address] 37807- 9027 Dec, [facility] [id number] [place] [address] 93702- 4705 05 Dec, 2015 [facility] [id number] [place] [address] 12246- 7460 Dec, [facility] [id number] [place] [address] 40547- 3302 Dec, [facility] [id number] [place] [address] 72870- 6441 Dec, [facility] [id number] [place] [address] 76771- 9376 30 Nov, 2015 Cough R05 and Pneumonia due to infectious organism, unspecified laterality, unspecified part of lung J18.9 [facility] [id number] [place] [address] 48934- 2317 Nov, [facility] [address] [facility] [id number] [place] [id number] Nov, Type 2 diabetes mellitus with diabetic [...] allergic rhinitis trigger, unspecified rhinitis seasonality J30.9 [facility] [address] [facility] [id number] [place] [phone] Nov, IMMUNIZATIONS No Known Immunizations SOCIAL HISTORY Never Assessed REASON FOR VISIT Medication refill request PLAN OF CARE VITAL SIGNS MEDICATIONS Medication Instructions Dosage Frequency Start Date End Date Duration Status GlipiZIDE 5 mg Orally twice a day 1 tablet 12h 30 days Active RESULTS No Results PROCEDURES No Known procedures INSTRUCTIONS MEDICATIONS ADMINISTERED No Known Medications MEDICAL (GENERAL) HISTORY Type Description Date Medical History hypertension Medical History chronic obstructive pulmonary disease (COPD)-wears 2L O2 per [place], uses [employer] for home O2 Medical History Arthritis-knees and [...] TIA, [facility] 2014 Hospitalization History COPD exacerbation--[facility] 12/27/2015 [facility] - [facility] 02/2016 [facility] History [facility] pneumonia 11/2016 Hospitalization History COPD exacerbation - Dr Hartley Attending 12/2016 Hospitalization History Cough- [facility] 04/10/2017 [facility] - Possible Pneumonia 06/2017 Hospitalization History COPD hiatal hernia 08/2017
--- OUTSIDE RECORDS SUMMARY | 2018-01-05 15:44 | XMS REPORT ---
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 Active 656438954 Problem Mixed hyperlipidemia E78.2 Active 353157616 Problem Type 2 diabetes mellitus with diabetic neuropathy, without long-term current use of insulin E11.40 Active 15925000 Problem Chronic obstructive pulmonary disease, unspecified COPD type J44.9 Active 20851291 Problem Hypoxia R09.02 Active 979720830 Problem Osteoarthritis of both knees, unspecified osteoarthritis type M17.0 Active 536273105 Problem Allergic rhinitis, unspecified allergic rhinitis trigger, unspecified rhinitis seasonality J30.9 Active 43369633 Problem Chronic pain syndrome G89.4 Active 631800306 ALLERGIES No Information ENCOUNTERS Encounter Location Date Diagnosis [facility] [address] [address] Nov, [facility] [id number] [place] [address] 47954- 3382 27 Nov, 2017 Encounter for immunization Z23 [facility] [address] [address]- 2276 27 Nov, 2017 [place] [address] [address]- [address]18 Nov, Dermatitis associated with moisture L30.8 ; Pressure injury of buttock, stage 1, unspecified laterality L89.301 and Seasonal allergies J30.2 [place] [id number] [place] [address] 70384- 4423 Nov, [place] [address] 81341- 2331 25 Nov, 2017 [place] [address] 89361- 8931 17 Nov, 2017 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 [place] [address] 89883- 8519 14 Nov, 2017 [place] [address] 22425- 1454 12 Nov, 2017 Unspecified urinary incontinence R32 and Unspecified contact dermatitis due to other agents L25.8 [facility] [id number] [place] [address] 18795- 3657 11 Nov, 2017 Chronic pain syndrome G89.4 [place] [address] 55601- 8882 10 Nov, 2017 Type 2 diabetes mellitus with diabetic neuropathy, without long-term current use of insulin E11.40 [place] [address] 07284- 6318 04 Nov, 2017 [place] [id number] [place] [address] 67665- 4434 04 Nov, 2017 Chronic obstructive pulmonary disease, unspecified COPD type J44.9 and Gastroesophageal reflux disease without esophagitis K21.9 [facility] [id number] [place] [address] 76645- 0465 Oct, [facility] [id number] [place] [address] 65487- 5108 Oct, [facility] [id number] [place] [address] 34277- 7047 Oct, Chronic pain syndrome G89.4 [facility] [id number] [place] [address] 55632- 8956 Oct, Community acquired bacterial pneumonia J15.9 ; Allergic rhinitis, unspecified allergic rhinitis trigger, unspecified rhinitis seasonality J30.9 ; Type 2 diabetes mellitus with diabetic neuropathy, without long-term current use of insulin E11.40 ; Chronic GERD K21.9 and Chronic obstructive pulmonary disease, unspecified COPD type J44.9 [facility] [id number] [place] [address] 85319- 8132 Oct, [facility] [id number] [place] [address] 76617- 9334 Oct, [facility] [id number] [place] [address] 58524- 7471 Oct, [facility] [id number] [place] [address] 76064- 0664 Oct, [facility] [id number] [place] [address] 61499- 8660 Oct, Essential hypertension I10 [facility] [id number] [place] [address] 90995- 6520 Oct, Type 2 diabetes mellitus with diabetic neuropathy, without long-term current use of insulin E11.40 ; Chronic obstructive pulmonary disease , unspecified COPD type J44.9 ; Mixed hyperlipidemia E78.2 ; Osteoarthritis of both knees, unspecified osteoarthritis type M17.0 ; 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 and Essential hypertension I10 [facility] [address], [place] [address] 27[address] Oct, [facility] [address] [address] 0475 Oct, [facility] [id number] [place] [address] 37515- 2110 Oct, Yeast dermatitis B37.2 [facility] [id number] [place] [address] 87178- 0905 Oct, Chronic pain syndrome G89.4 [facility] [id number] [place] [address] 06754- 1716 Sep, [facility] [id number] [place] [address] 13283- 5671 Sep, [facility] [id number] [place] [address] 62538- 5480 Sep, 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 and Chronic pain syndrome G89.4 [facility] [id number] [place] [address] 61144- 3470 Sep, COPD with acute exacerbation J44.1 [facility] [address], [place] [address] 6971 Sep, [facility] [id number] [place] [address] 70390- 4393 Sep, [facility] [address] [address] 5777 Sep, Gastroesophageal reflux disease without esophagitis K21.9 [facility] [address] [address] 8266 Aug, [facility] [address] [address] 0140 Aug, [facility] [id number] [place] [address] 62270- 5408 Aug, 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 ; Hospital discharge follow-up Z09 ; Chronic obstructive pulmonary disease, unspecified COPD type J44.9 and Chronic GERD K21.9 [place] [id number] [place] [address] 14700- 8524 Aug, Chronic pain syndrome G89.4 [facility] [id number] [place] [address] 02291- 0198 Aug, [facility] [id number] [place] [address] 02036- 0146 Aug, [facility] [id number] [place] [address] 28678- 9479 Aug, Chronic pain syndrome G89.4 and 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 [place] [address] 20171- 2998 Aug, Type 2 diabetes mellitus with diabetic neuropathy, without long-term current use of insulin E11.40 ; Chronic obstructive pulmonary disease , unspecified COPD type J44.9 ; Chronic GERD K21.9 and 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 [facility] [id number] [place] [address] 28591- 2508 Aug, [facility] [id number] [place] [address] 56355- 4712 Aug, Essential hypertension I10 and Cough R05 [facility] [id number] [place] [address] 60993- 8072 Aug, [facility] [id number] [place] [address] 12258- 9475 Aug, [facility] [id number] [place] [address] 89589- 6558 Aug, [facility] [id number] [place] [address] 22975- 5280 Aug, Chronic pain syndrome G89.4 [facility] [id number] [place] [address] 37171- 3071 Aug, [facility] [id number] [place] [address] 74738- 4645 Aug, [place] [id number] [place] [address] 79197- 5699 July, Gastroesophageal reflux disease without esophagitis K21.9 [place] [id number] [place] [address] 91366- 0836 July, [place] [id number] [place] [address] 55854- 2949 July, [place] [id number] [place] [address] 37079- 9914 July, [place] [id number] [place] [address] 14434- 2111 July, Essential hypertension I10 and Chronic pain syndrome G89.4 [place] [id number] [place] [address] 65817- 2887 July, Gastroesophageal reflux disease without esophagitis K21.9 [place] [id number] [place] [address] 97256- 9645 July, 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 [place] [id number] [place] [address] 14069- 9318 July, Chronic obstructive pulmonary disease, unspecified COPD type J44.9 ; Nocturnal cough R05 ; 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 and Recurrent major depressive disorder, in partial 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 [place] [id number] [place] [address] 09714- 9549 July, [place] [id number] [place] [address] 41700- 9678 July, Type 2 diabetes mellitus with diabetic neuropathy, without long-term current use of insulin E11.40 [place] [id number] [place] [address] 26063- 1837 July, Nocturnal hypoxemia G47.34 ; Chronic obstructive pulmonary disease, unspecified COPD type J44.9 and Nocturnal cough R05 [place] [id number] [place] [address] 42297- 7364 July, [facility] [id number] [place] [address] 50728- 8037 July, [facility] [id number] [place] [address] 24396- 8309 July, [facility] [id number] [place] [address] 64207- 9864 Jun, Chronic pain syndrome G89.4 [facility] [id number] [place] [address] 82208- 6031 Jun, [facility] [id number] [place] [address] 60160- 5169 Jun, [facility] [id number] [place] [address] 91867- 8129 Jun, 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 [facility] [id number] [place] [address] 85196- 1004 Jun, [facility] [id number] [place] [address] 35420- 1441 Jun, Gastroesophageal reflux disease without esophagitis K21.9 [facility] [id number] [place] [address] 63989- 9613 Jun, Allergic rhinitis, unspecified allergic rhinitis trigger, unspecified rhinitis seasonality J30.9 [facility] [id number] [place] [address] 57596- 2231 Jun, Chronic pain syndrome G89.4 [facility] [id number] [place] [address] 47834- 8379 May, [facility] [id number] [place] [address] 29063- 3306 15 May, 2017 COPD with acute exacerbation J44.1 [facility] [id number] [place] [address] 85957- 7650 14 May, 2017 Type 2 diabetes mellitus with diabetic neuropathy, without long-term current use of insulin E11.40 ; COPD with acute exacerbation J44.1 ; Hypoxia R09.02 ; Chronic pain syndrome G89.4 ; Yeast dermatitis B37.2 ; 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 and 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 [facility] [id number] [place] [address] 55451- 1099 May, [facility] [address] 27598- 3373 May, Chronic pain syndrome G89.4 [facility] [id number] [place] [address] 63768- 1697 May, [facility] [address] 66270- 3378 May, [facility] [address] 27973- 4050 May, Mixed hyperlipidemia E78.2 [facility] [address] 70013- 3406 May, Chronic pain syndrome G89.4 [facility] [address] 24857- 0682 May, Anxiety F41.9 and Chronic pain syndrome G89.4 [facility] [id number] [place] [address] 23412- 8265 Mar, [facility] [id number] [place] [address] 85481- 1738 Mar, [facility] [id number] [place] [address] 29213- 1252 Mar, [facility] [id number] [place] [address] 14323- 1744 Mar, [facility] [id number] [place] [address] 19437- 1144 Mar, [facility] [address] 55208- 0402 Mar, Anxiety F41.9 and Chronic pain syndrome G89.4 [place] [id number] [place] [address] 34720- 4090 Mar, Medicare annual wellness visit, initial Z00.00 [...] Hiatal hernia K44.9 and Actinic keratosis L57.0 [place] [id number] [place] [address] 14292- 8841 Mar, [place] [id number] [place] [address] 43635- 3924 Mar, Chronic pain syndrome G89.4 [place] [id number] [place] [address] 56836- 5185 Feb, [place] [id number] [place] [address] 05510- 2385 Feb, Chronic pain syndrome G89.4 [place] [id number] [place] [address] 44093- 2171 Feb, [place] [id number] [place] [address] 62268- 1271 Feb, [place] [id number] [place] [address] 34425- 3420 Feb, Anxiety F41.9 [place] [id number] [place] [address] 12863- 9132 Feb, [place] [id number] [place] [address] 73437- 5360 Feb, Chronic pain syndrome G89.4 [facility] [id number] [place] [address] 30672- 2129 Jan, Essential hypertension I10 [facility] [id number] [place] [address] 29656- 1790 Jan, Chronic pain syndrome G89.4 [facility] [address] 25543- 1804 Jan, [place] [id number] [place] [address] 47146- 3333 Jan, Anxiety F41.9 [place] [address] 18902- 3094 Jan, Encounter for immunization Z23 and Community acquired pneumonia, unspecified laterality J18.9 [place] [id number] [place] [address] 76555- 9560 Jan, Type 2 diabetes mellitus with diabetic neuropathy, without long-term current use of insulin E11.40 [place] [id number] [place] [address] 46744- 2971 Dec, Anxiety F41.9 and Chronic pain syndrome G89.4 [place] [id number] [place] [address] 59487- 7466 Dec, Chronic pain syndrome G89.4 and Essential hypertension I10 [place] [id number] [place] [address] 30828- 7063 Dec, [facility] [id number] [place] [address] 44777- 9796 Dec, Anxiety F41.9 [facility] [id number] [place] [address] 10851- 2042 Dec, [facility] [id number] [place] [address] 04110- 3166 Dec, Type 2 diabetes mellitus with diabetic neuropathy, without long-term current use of insulin E11.40 ; Lactic acidosis E87.2 ; Chronic obstructive pulmonary disease, unspecified COPD type J44.9 and Encounter for immunization Z23 [facility] [id number] [place] [address] 64449- 3436 Dec, Chronic pain syndrome G89.4 [facility] [id number] [place] [address] 49542- 5579 Nov, [facility] [id number] [place] [address] 26641- 6368 Nov, Chronic pain syndrome G89.4 [facility] [id number] [place] [address] 29454- 1516 Nov, [facility] [id number] [place] [address] 28169- 5732 Nov, [facility] [id number] [place] [address] 08028- 1125 Nov, Anxiety F41.9 [facility] [id number] [place] [address] 99298- 2596 Nov, Anxiety F41.9 [facility] [id number] [place] [address] 33180- 3328 Nov, [facility] [id number] [place] [address] 74928- 5027 Nov, [facility] [id number] [place] [address] 58989- 6743 Nov, [facility] [id number] [place] [address] 64098- 3033 Oct, [facility] [id number] [place] [address] 10468- 6304 Oct, [facility] [id number] [place] [address] 68047- 6850 Oct, [facility] [id number] [place] [address] 36799- 5013 Oct, Essential hypertension I10 and Chronic pain syndrome G89.4 [facility] [id number] [place] [address] 18651- 2679 Oct, Anxiety F41.9 [facility] [id number] [place] [address] 57255- 7662 Oct, [facility] [id number] [place] [address] 52426- 3109 Oct, Chronic pain syndrome G89.4 [facility] [id number] [place] [address] 20574 -8022 Oct, Sore throat J02.9 and Acute nasopharyngitis (common cold) J00 [facility] [id number] [place] [address] 89298- 4625 Sep, [facility] [id number] [place] [address] 40812- 5048 Sep, COPD exacerbation J44.1 [facility] [id number] [place] [address] 68111- 6609 Sep, Chronic pain syndrome G89.4 [facility] [id number] [place] [address] 81035- 6767 Sep, Essential hypertension I10 [facility] [id number] [place] [address] 69136- 3702 Sep, [facility] [id number] [place] [address] 21572- 7704 Sep, [facility] [id number] [place] [address] 52926- 7371 Sep, Anxiety F41.9 [facility] [id number] [place] [address] 49852- 3282 Sep, Chronic pain syndrome G89.4 [facility] [id number] [place] [address] 81917- 7898 Sep, [facility] [id number] [place] [address] 99951- 9464 Aug, Acute seasonal allergic rhinitis, unspecified trigger J30.2 ; Hiatal hernia K44.9 and Chronic pain syndrome G89.4 [facility] [id number] [place] [address] 72211- 8819 Aug, [facility] [id number] [place] [address] 73962- 3560 Aug, [facility] [id number] [place] [address] 70706- 8384 Aug, Chronic obstructive pulmonary disease, unspecified COPD type J44.9 [facility] [id number] [place] [address] 85376- 4563 14 Aug, 2016 Anxiety F41.9 [facility] [id number] [place] [address] 73285- 8092 Aug, Chronic pain syndrome G89.4 [facility] [id number] [place] [address] 42003- 9685 Aug, Hiatal hernia K44.9 and Actinic keratosis L57.0 [place] [id number] [place] [address] 76137- 7902 Aug, [facility] [id number] [place] [address] 25812- 5547 Aug, Anxiety F41.9 [facility] [id number] [place] [address] 88905- 2920 July, [facility] [id number] [place] [address] 97994- 5807 July, Hiatal hernia K44.9 [facility] [id number] [place] [address] 71803- 3166 July, [facility] [id number] [place] [address] 49996- 8311 July, Anxiety F41.9 and Chronic pain syndrome G89.4 [facility] [address] [address]- 8563 July, [facility] [id number] [place] [address] [id number]- 8135 Jun, Chronic pain syndrome G89.4 [facility] [id number] [place] [address] 69523- 9589 Jun, Chronic pain syndrome G89.4 [facility] [id number] [place] [address] 40854- 8763 Jun, [facility] [id number] [place] [address] 65529- 5189 Jun, Anxiety F41.9 [facility] [id number] [place] [address] 73721- 8278 Jun, Allergic rhinitis, unspecified allergic rhinitis trigger, unspecified rhinitis seasonality J30.9 [facility] [id number] [place] [address] 79834- 8836 Jun, [facility] [id number] [place] [address] 30942- 2741 May, Chronic pain syndrome G89.4 [facility] [id number] [place] [address] [phone]- 2245 May, [facility] [id number] [place] [address] [phone] May, [facility] [id number] [place] [address] [phone]- 5555 May, Anxiety F41.9 [facility] [id number] [place] [address] 82811- 1548 May, Type 2 diabetes mellitus with diabetic [...] Anxiety F41.9 and Chronic pain syndrome G89.4 [facility] [id number] [place] [address] 78694- 2125 May, Essential hypertension I10 ; Type 2 diabetes mellitus with diabetic neuropathy, without long-term current use of insulin E11.40 ; Mixed hyperlipidemia E78.2 ; Chronic obstructive pulmonary disease, unspecified COPD type J44.9 and Chronic GERD K21.9 [facility] [id number] [place] [address] [phone]- 3028 May, [facility] [address] 33636- 0382 May, [facility] [address] 86105- 4116 May, Type 2 diabetes mellitus with diabetic neuropathy, without long-term current use of insulin E11.40 [facility] [id number] [place] [address] 77415- 2466 May, Dementia without behavioral disturbance, unspecified dementia type F03.90 [facility] [id number] [place] [address] 49675- 9581 May, Type 2 diabetes mellitus with diabetic neuropathy, without long-term current use of insulin E11.40 ; Essential hypertension I10 ; Mixed hyperlipidemia E78.2 ; Chronic obstructive pulmonary disease, unspecified COPD type J44.9 ; Chronic GERD K21.9 and Osteoarthritis of both knees, unspecified osteoarthritis type M17.0 [facility] [id number] [place] [address] 30007- [phone] May, [place] [id number] [place] [address] 15602- 8184 May, [place] [id number] [place] [address] 70312- 2687 May, Anxiety F41.9 and Unspecified symptoms and signs involving cognitive functions and awareness R41.9 [facility] [id number] [place] [address] 65217- 6711 May, [facility] [id number] [place] [address] 08540- 1414 May, Type 2 diabetes mellitus with diabetic neuropathy, without long-term current use of insulin E11.40 ; Anxiety F41.9 and Chronic obstructive pulmonary disease, unspecified COPD type J44.9 [facility] [id number] [place] [address] 29519- 2167 May, [facility] [id number] [place] [address] 29959- 7907 May, [facility] [id number] [place] [address] 70987- 2216 May, [facility] [id number] [place] [address] 76885- 6326 May, Chronic obstructive pulmonary disease, unspecified COPD type J44.9 [facility] [id number] [place] [address] 49832- 5216 Mar, [facility] [id number] [place] [address] 84503- 3158 Mar, Arthritis of both knees M19.90 [facility] [id number] [place] [address] 86997- 4825 Mar, Type 2 diabetes mellitus with diabetic neuropathy, without long-term current use of insulin E11.40 [facility] [id number] [place] [address] 92663- 5099 Mar, [facility] [id number] [place] [address] 57986- 3405 Mar, Neck pain M54.2 and Weakness generalized R53.1 [facility] [id number] [place] [address] 74761- 1772 Mar, [facility] [id number] [place] [address] 6586 Mar, Cervicalgia M54.2 and Impacted cerumen of both ears H61.23 [facility] [address] 20301- 4162 Mar, [facility] [address] 97622- 3758 Mar, Type 2 diabetes mellitus with diabetic neuropathy, without long-term current use of insulin E11.40 [facility] [id number] [place] [address] 00972- 7649 Feb, [facility] [address] 55876- 6085 Feb, Hypoxia R09.02 [facility] [address] 74059- 7162 Feb, [facility] [address] 35687- 3985 Feb, [facility] [id number] [place] [address] 46137- 7320 Feb, [facility] [id number] [place] [address] 39904- 6087 16 Feb, 2016 Type 2 diabetes mellitus with diabetic neuropathy, without long-term current use of insulin E11.40 [facility] [id number] [place] [address] 19506- 0922 Feb, Osteoarthritis of both knees, unspecified osteoarthritis type M17.0 [facility] [id number] [place] [address] 25925- 6775 Feb, [facility] [id number] [place] [address] 24579- 2449 Feb, [facility] [id number] [place] [address] 39101- 9447 09 Feb, 2016 [facility] [address] 79761- 4156 Jan, [facility] [id number] [place] [address] 42710- 5008 Jan, [facility] [id number] [place] [address] 78699- 9838 Jan, [facility] [address] 52802- 8042 Jan, [facility] [address] 02453- 6579 Jan, Tinea pedis of both feet B35.3 [place] [address] 94545- 1842 03 Jan, 2016 Type 2 diabetes mellitus [...] seasonality J30.9 and Encounter for immunization Z23 [facility] [id number] [place] [address] 67960- 0211 Jan, [facility] [id number] [place] [address] 10156- 5712 Jan, [facility] [id number] [place] [address] 81118- 7039 Dec, [facility] [address] 17091- 1848 Dec, [facility] [id number] [place] [address] 35974 -9455 Dec, Unspecified asthma with (acute) exacerbation J45.901 and Chronic obstructive pulmonary disease with (acute) exacerbation J44.1 [facility] [address] [address] 4688 Dec, Arthritis of both knees M19.90 and Acute medial meniscus tear, right, initial encounter S83.241A [facility] [id number] [place] [address], [place] [address]- 0431 Dec, [facility] [id number] [place] [address] 07646- 8027 Dec, [facility] [id number] [place] [address] 87851- 2974 14 Dec, 2015 [facility] [id number] [place] [address] 52243- 6478 Dec, [facility] [id number] [place] [address] 28357- 9242 Dec, History of pneumonia Z87.01 [facility] [id number] [place] [address] 93129- 7473 Dec, [facility] [id number] [place] [address] 25671- 5051 Dec, [facility] [id number] [place] [address] 47178- 4680 05 Dec, 2015 [facility] [id number] [place] [address] 93501- 5512 Dec, [facility] [id number] [place] [address] 32621- 7340 Dec, [facility] [id number] [place] [address] 42101- 4823 Dec, [facility] [id number] [place] [address] 96247- 9628 30 Nov, 2015 Cough R05 and Pneumonia due to infectious organism, unspecified laterality, unspecified part of lung J18.9 [facility] [id number] [place] [address] 19696- 5932 Nov, [facility] [address] [facility] [id number] [place] [id number]761 Nov, Type 2 diabetes mellitus with diabetic [...] allergic rhinitis trigger, unspecified rhinitis seasonality J30.9 [facility] [address] [facility] [id number] [place] [phone]805 Nov, IMMUNIZATIONS No Known Immunizations SOCIAL HISTORY Never Assessed REASON FOR VISIT Medication refill request PLAN OF CARE VITAL SIGNS MEDICATIONS Medication Instructions Dosage Frequency Start Date End Date Duration Status Tramadol HCl 50 mg Orally every 12 hrs 1 tablet as needed 12h 28 days Active RESULTS No Results PROCEDURES No Known procedures INSTRUCTIONS MEDICATIONS ADMINISTERED No Known Medications MEDICAL (GENERAL) HISTORY Type Description Date Medical History hypertension Medical History chronic obstructive pulmonary disease (COPD)-wears 2L O2 per [place], uses Indonesian for home O2 Medical History Arthritis-knees and [...] TIA, [facility] 2014 Hospitalization History COPD exacerbation--[facility] 12/27/2015 [facility] - fall 02/2016 [facility] History [facility] pneumonia 11/2016 Hospitalization History COPD exacerbation - Dr Hartley Attending 12/2016 Hospitalization History Cough- [facility] [place] 04/10/2017 Hospitalization History [facility] - Possible Pneumonia 06/2017 Hospitalization History COPD hiatal hernia 08/2017
--- OUTSIDE RECORDS SUMMARY | 2018-01-05 15:45 | XMS REPORT ---
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 Active 035515581 Problem Mixed hyperlipidemia E78.2 Active 391778506 Problem Type 2 diabetes mellitus with diabetic neuropathy, without long-term current use of insulin E11.40 Active 05251718 Problem Chronic obstructive pulmonary disease, unspecified COPD type J44.9 Active 28923674 Problem Hypoxia R09.02 Active 893554173 Problem Osteoarthritis of both knees, unspecified osteoarthritis type M17.0 Active 417707584 Problem Allergic rhinitis, unspecified allergic rhinitis trigger, unspecified rhinitis seasonality J30.9 Active 76563649 Problem Chronic pain syndrome G89.4 Active 170626084 ALLERGIES No Information ENCOUNTERS Encounter Location Date Diagnosis [facility] [address] [facility] [id number] [address] Nov, Dermatitis associated with moisture L30.8 ; Seasonal allergies J30.2 and Pressure injury of buttock, stage 1, unspecified laterality L89.301 [place] [address] 54306- 6532 Nov, [place] [address] 88297- 3833 Nov, [place] [address] 98791- 6100 17 Nov, 2017 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 [place] [address] 65305- 8288 14 Nov, 2017 [place] [address] 98970- 3612 12 Nov, 2017 Unspecified urinary incontinence R32 and Unspecified contact dermatitis due to other agents L25.8 [place] [address] 11984- 9969 Nov, Chronic pain syndrome G89.4 [place] [address] 32788- 1630 10 Nov, 2017 Type 2 diabetes mellitus with diabetic neuropathy, without long-term current use of insulin E11.40 [place] [address] 29718- 4772 Nov, [place] [address] 78251- 2017 Nov, Chronic obstructive pulmonary disease, unspecified COPD type J44.9 and Gastroesophageal reflux disease without esophagitis K21.9 [place] [address] 89165- 9266 Oct, [place] [address] 55216- 7307 Oct, [place] [address] 20433- 5283 Oct, Chronic pain syndrome G89.4 [place] [address] [place] [id number] [place] [address] 22677- 4460 Oct, Community acquired bacterial pneumonia J15.9 ; Allergic rhinitis, unspecified allergic rhinitis trigger, unspecified rhinitis seasonality J30.9 ; Type 2 diabetes mellitus with diabetic neuropathy, without long-term current use of insulin E11.40 ; Chronic GERD K21.9 and Chronic obstructive pulmonary disease, unspecified COPD type J44.9 [facility] [address] [place] [id number] [place] [address] 98268- 7932 Oct, [facility] [address] [place] [id number] [place] [address] 99346- 1033 Oct, [facility] [address] 89710- 4755 Oct, [facility] [address] [place] [id number] [place] [address] 59663- 4166 Oct, [facility] [address] [place] [id number] [place] [address] 92685- 4203 Oct, Essential hypertension I10 [place] [address] [place] [id number] [place] [address] 38618- 2914 Oct, Type 2 diabetes mellitus with diabetic neuropathy, without long-term current use of insulin E11.40 ; Chronic obstructive pulmonary disease , unspecified COPD type J44.9 ; Mixed hyperlipidemia E78.2 ; Osteoarthritis of both knees, unspecified osteoarthritis type M17.0 ; 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 and Essential hypertension I10 [facility] [address] [place] [id number] [place] [address] 96281- 9830 Oct, [facility] [address] [place] [id number] [place] [address] 79603- 3692 Oct, [facility] [address] [place] [id number] [place] [address] 15625- 6783 Oct, Yeast dermatitis B37.2 [facility] [address] [place] [id number] [place] [address] 40114- 9360 Oct, Chronic pain syndrome G89.4 [facility] [address] [address] 1708 Sep, [facility] [address] [place] [id number] [place] [address] 65049- 0365 Sep, [facility] [address] [place] [id number] [place] [address] 27847- 9385 Sep, 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 and Chronic pain syndrome G89.4 [facility] [address] [place] [id number] [place] [address] 89996- 7237 Sep, COPD with acute exacerbation J44.1 [facility] [address] [place] [id number] [place] [address] 47199- 3647 Sep, [facility] [address] [place] [id number] [place] [address] 51636- 9829 Sep, [facility] [address] [place] [id number] [place] [address] 63237- 7008 Sep, Gastroesophageal reflux disease without esophagitis K21.9 [facility] [address] [place] [id number] [place] [address] 40465- 0621 Aug, [facility] [address] [place] [id number] [place] [address] 16924- 2041 Aug, [facility] [address] [address] 8180 Aug, 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 ; Hospital discharge follow-up Z09 ; Chronic obstructive pulmonary disease, unspecified COPD type J44.9 and Chronic GERD K21.9 [facility] [address] [address] 2446 Aug, Chronic pain syndrome G89.4 [facility] [address] [place] [id number] [address] 1929 Aug, [facility] [id number] [place] [address] 53602- 4598 Aug, [facility] [id number] [place] [address] 71951- 7634 Aug, Chronic pain syndrome G89.4 and 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 [facility] [address] [place] [id number] [place] [address] 02000- 4392 18 Aug, 2017 Type 2 diabetes mellitus with diabetic neuropathy, without long-term current use of insulin E11.40 ; Chronic obstructive pulmonary disease , unspecified COPD type J44.9 ; Chronic GERD K21.9 and 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 [facility] [address] [place] [id number] [place] [address] 22113- 2135 Aug, [facility] [address] [place] [id number] [place] [address] 50488- 4967 Aug, Essential hypertension I10 and Cough R05 [place] [address] [place] [id number] [place] [address] 79676- 6571 Aug, [facility] [address] [place] [id number] [place] [address] 07990- 3992 Aug, [facility] [address] [place] [id number] [place] [address] 46825- 2511 Aug, [facility] [address] [place] [id number] [place] [address] 21617- 1225 Aug, Chronic pain syndrome G89.4 [facility] [address] [place] [id number] [place] [address] 57261- 7645 Aug, [facility] [address] [place] [id number] [place] [address] 53239- 3329 Aug, [facility] [address] [place] [id number] [place] [address] 96076- 8972 July, Gastroesophageal reflux disease without esophagitis K21.9 [facility] [address] [place] [id number] [place] [address] 84709- 3788 July, [facility] [address] [place] [id number] [place] [address] 72861- 1198 July, [place] [address] [place] [id number] [place] [address] 49597- 4820 July, [place] [address] [place] [id number] [place] [address] 91928- 7552 July, Essential hypertension I10 and Chronic pain syndrome G89.4 [place] [address] [place] [id number] [place] [address] 74348- 6749 July, Gastroesophageal reflux disease without esophagitis K21.9 [place] [address] [place] [id number] [place] [address] 42333- 9060 July, 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 [place] [address] [place] [id number] [place] [address] 34570- 9730 July, Chronic obstructive pulmonary disease, unspecified COPD type J44.9 ; Nocturnal cough R05 ; 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 and Recurrent major depressive disorder, in partial 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 [place] [address] [place] [id number] [place] [address] 30998- 0112 July, [place] [address] [place] [id number] [place] [address] 04315- 1026 July, Type 2 diabetes mellitus with diabetic neuropathy, without long-term current use of insulin E11.40 [place] [address] [place] [id number] [place] [address] 12652- 4626 July, Nocturnal hypoxemia G47.34 ; Chronic obstructive pulmonary disease, unspecified COPD type J44.9 and Nocturnal cough R05 [place] [address] [place] [id number] [place] [address] 35193- 8611 July, [place] [address] [place] [id number] [place] [address] 02510- 4119 July, [place] [address] [place] [id number] [place] [address] 29446- 6705 July, [place] [address] [place] [id number] [place] [address] 47334- 9314 Jun, Chronic pain syndrome G89.4 [facility] [address] [place] [id number] [place] [address] 26696- 0550 Jun, [facility] [address] [place] [id number] [place] [address] 63847- 1106 Jun, [facility] [address] [place] [id number] [place] [address] 44030- 8363 Jun, 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 [place] [address] 63086- 6447 Jun, [place] [address] 63423- 9472 Jun, Gastroesophageal reflux disease without esophagitis K21.9 [place] [address] 86202- 0966 Jun, Allergic rhinitis, unspecified allergic rhinitis trigger, unspecified rhinitis seasonality J30.9 [place] [address] [place] [id number] [place] [address] 57380- 0352 Jun, Chronic pain syndrome G89.4 [place] [address] [place] [id number] [place] [address] 95614- 4290 May, [place] [address] [place] [id number] [place] [address] 25792- 4392 May, COPD with acute exacerbation J44.1 [place] [address] 04157- 9616 May, Type 2 diabetes mellitus with diabetic neuropathy, without long-term current use of insulin E11.40 ; COPD with acute exacerbation J44.1 ; Hypoxia R09.02 ; Chronic pain syndrome G89.4 ; Yeast dermatitis B37.2 ; 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 and 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 [place] [address] [place] [id number] [place] [address] 19535- 9683 May, [place] [address], [place] [address] 2546 May, Chronic pain syndrome G89.4 [facility] [address], [place] [address] 2546 May, [facility] [address], [place] [address] 2546 May, [facility] [address] [place] [id number] [place] [address] 04561- 6036 May, Mixed hyperlipidemia E78.2 [facility] [address] [place] [id number] [place] [address] 33853- 1286 May, Chronic pain syndrome G89.4 [facility] [address] [place] [id number] [place] [address] 88741 2546 May, Anxiety F41.9 and Chronic pain syndrome G89.4 [facility] [address] [id number] [address]- 7085 Mar, [facility] [id number] [place] [address] 41863- 4889 Mar, [facility] [id number] [place] [address] 43807- 7851 Mar, [facility] [address], [place] [address]- 1832 Mar, [facility] [address], [place] [address]- 6675 Mar, [facility] [address], [place] [address]- 2571 Mar, Anxiety F41.9 and Chronic pain syndrome G89.4 [facility] [address], [place] [address]- 2719 Mar, Medicare annual wellness visit, initial Z00.00 [...] keratosis L57.0 [facility] [address] [place] [id number] [place] [address] 04940- 2876 Mar, [facility] [address] [place] [id number] [place] [address] 00062- 6958 Mar, Chronic pain syndrome G89.4 [facility] [address] [place] [id number] [place] [address] 34097- 8661 Feb, [facility] [address] [place] [id number] [place] [address] 55361- 1223 Feb, Chronic pain syndrome G89.4 [facility] [address] [place] [id number] [place] [address] 47105- 9442 Feb, [facility] [address] [place] [id number] [place] [address] 09672- 6566 Feb, [facility] [address] [place] [id number] [place] [address] 40993- 1431 Feb, Anxiety F41.9 [facility] [address] [id number] [place] [address] 46969- 4248 Feb, [facility] [address] [place] [id number] [place] [address] 11412- 9078 Feb, Chronic pain syndrome G89.4 [facility] [address] [place] [id number] [place] [address] 44663- 4294 Jan, Essential hypertension I10 [facility] [address] [id number] [place] [address] 34550- 2562 Jan, Chronic pain syndrome G89.4 [facility] [address] [place] [id number] [place] [address] 92883- 2313 Jan, [place] [address] 34519- 2100 Jan, Anxiety F41.9 [place] [address] [place] [id number] [place] [address] 84432- 1253 Jan, Encounter for immunization Z23 and Community acquired pneumonia, unspecified laterality J18.9 [facility] [address] [place] [id number] [place] [address] 95908- 5673 Jan, Type 2 diabetes mellitus with diabetic neuropathy, without long-term current use of insulin E11.40 [place] [address] 29638- 8096 Dec, Anxiety F41.9 and Chronic pain syndrome G89.4 [place] [address] 13950- 1032 Dec, Chronic pain syndrome G89.4 and Essential hypertension I10 [place] [address] 63188- 3220 Dec, [place] [address] 24314- 9238 Dec, Anxiety F41.9 [place] [address] [place] [id number] [place] [address] 54628- 2860 Dec, [place] [address] [place] [id number] [place] [address] 67515- 6909 Dec, Type 2 diabetes mellitus with diabetic neuropathy, without long-term current use of insulin E11.40 ; Lactic acidosis E87.2 ; Chronic obstructive pulmonary disease, unspecified COPD type J44.9 and Encounter for immunization Z23 [facility] [address] [place] [id number] [place] [address] 77330- 7966 Dec, Chronic pain syndrome G89.4 [place] [address] 48128- 6964 Nov, [facility] [address], [place] [address]- 2219 Nov, Chronic pain syndrome G89.4 [facility] [address], [place] [address]- 7346 Nov, [facility] [address] [place] [address], [place] [address]- 3365 Nov, [facility] [id number] [place] [address] 37351- 9768 15 Nov, 2016 Anxiety F41.9 [facility] [address] [id number] [place] [address] 29282- 1748 11 Nov, 2016 Anxiety F41.9 [facility] [id number] [place] [address] 05667- 6132 08 Nov, 2016 [facility] [address] [place] [id number] [place] [address] 80220- 7256 05 Nov, 2016 [facility] [id number] [place] [address] 60473- 0978 Nov, [facility] [address] [id number] [place] [address] 06631- 9103 Oct, [facility] [id number] [place] [address] 23381- 8578 Oct, [facility] [id number] [place] [address] 83560- 4190 Oct, [facility] [address], [place] [address]- 9951 Oct, Essential hypertension I10 and Chronic pain syndrome G89.4 [facility] [id number] [place] [address] 33001- 1456 Oct, Anxiety F41.9 [facility] [address], [place] [address]- 3039 Oct, [facility] [id number] [place] [address] 72160- 5324 Oct, Chronic pain syndrome G89.4 [facility] [id number] [place] [address] 18810 -0504 Oct, Sore throat J02.9 and Acute nasopharyngitis (common cold) J00 [facility] [address] [id number] [place] [address] 25028- 2547 Sep, [facility] [address] 32254- 2473 Sep, COPD exacerbation J44.1 [facility] [address] 36267- 6017 Sep, Chronic pain syndrome G89.4 [facility] [address] [id number] [place] [address] 82136- 6540 Sep, Essential hypertension I10 [facility] [address] 60758- 7718 Sep, [facility] [id number] [place] [address] 55195- 9456 Sep, [facility] [id number] [place] [address] 55342- 2280 Sep, Anxiety F41.9 [facility] [id number] [place] [address] 74435- 2276 Sep, Chronic pain syndrome G89.4 [facility] [id number] [place] [address] 83531- 9079 Sep, [facility] [id number] [place] [address] 12909- 3458 Aug, Acute seasonal allergic rhinitis, unspecified trigger J30.2 ; Hiatal hernia K44.9 and Chronic pain syndrome G89.4 [facility] [id number] [place] [address] 12130- 9308 Aug, [facility] [address] [place] [address]- 0283 Aug, [facility] [id number] [place] [address] 55914- 4310 Aug, Chronic obstructive pulmonary disease, unspecified COPD type J44.9 [facility] [id number] [place] [address] 41515- 5250 14 Aug, 2016 Anxiety F41.9 [facility] [id number] [place] [address] 24004- 8038 08 Aug, 2016 Chronic pain syndrome G89.4 [facility] [id number] [place] [address] 07702- 3647 Aug, Hiatal hernia K44.9 and Actinic keratosis L57.0 [facility] [id number] [place] [address] 50999- 2630 Aug, [facility] [id number] [place] [address] 86960- 1926 Aug, Anxiety F41.9 [facility] [id number] [place] [address] 31517- 9774 July, [facility] [id number] [place] [address] 16686- 1789 July, Hiatal hernia K44.9 [facility] [id number] [place] [address] 60962- 2127 July, [facility] [id number] [place] [address] 90642- 1738 July, Anxiety F41.9 and Chronic pain syndrome G89.4 [facility] [id number] [place] [address] 18914- 4831 July, [facility] [id number] [place] [address] 25570- 9526 Jun, Chronic pain syndrome G89.4 [facility] [id number] [place] [address] 58062- 9469 Jun, Chronic pain syndrome G89.4 [facility] [address], [place] [address]- 3106 Jun, [facility] [id number] [place] [address] 95641- 0465 Jun, Anxiety F41.9 [facility] [id number] [place] [address] 40292- 0061 Jun, Allergic rhinitis, unspecified allergic rhinitis trigger, unspecified rhinitis seasonality J30.9 [facility] [id number] [place] [address] 43701- 4933 Jun, [facility] [id number] [place] [address] 55287- 5920 May, Chronic pain syndrome G89.4 [facility] [id number] [place] [address] 47210- 2970 May, [facility] [id number] [place] [address] 45096- 3222 May, [facility] [id number] [place] [address] 64415- 8696 May, Anxiety F41.9 [facility] [id number] [place] [address] [phone]- [phone] May, Type 2 diabetes mellitus with diabetic [...] syndrome G89.4 [facility] [id number] [address] May, Essential hypertension I10 ; Type 2 diabetes mellitus with diabetic neuropathy, without long-term current use of insulin E11.40 ; Mixed hyperlipidemia E78.2 ; Chronic obstructive pulmonary disease, unspecified COPD type J44.9 and Chronic GERD K21.9 [facility] [id number] [place] [phone] May, [facility] [id number] [place] [phone] May, [facility] [address] [phone]- [address]686 May, Type 2 diabetes mellitus with diabetic neuropathy, without long-term current use of insulin E11.40 [facility] [address] [phone] May, Dementia without behavioral disturbance, unspecified dementia type F03.90 [facility] [address] [address]- [phone] May, Type 2 diabetes mellitus with diabetic neuropathy, without long-term current use of insulin E11.40 ; Essential hypertension I10 ; Mixed hyperlipidemia E78.2 ; Chronic obstructive pulmonary disease, unspecified COPD type J44.9 ; Chronic GERD K21.9 and Osteoarthritis of both knees, unspecified osteoarthritis type M17.0 [facility] [id number] [place] [address] [phone]- [phone] May, [facility] [id number] [place] [address] [phone]- [phone] May, [facility] [id number] [place] [address] [phone]- [phone] May, Anxiety F41.9 and Unspecified symptoms and signs involving cognitive functions and awareness R41.9 [facility] [id number] [place] [address] 15656- 2427 May, [place] [facility] [id number] [place] [address] 46621- 6439 May, Type 2 diabetes mellitus with diabetic neuropathy, without long-term current use of insulin E11.40 ; Anxiety F41.9 and Chronic obstructive pulmonary disease, unspecified COPD type J44.9 [place] [id number] [place] [address] 35811- 3153 May, [facility] [id number] [place] [address] 39149- 7308 May, [facility] [id number] [place] [address] 99406- 2093 May, [place] [address] [address]- 4219 May, Chronic obstructive pulmonary disease, unspecified COPD type J44.9 [place] [address] 82098- 6183 Mar, [place] [facility] [address] 74389- 6704 Mar, Arthritis of both knees M19.[address] [address]- [address]305 Mar, Type 2 diabetes mellitus with diabetic neuropathy, without long-term current use of insulin E11.40 [place] [facility] [address] 04468- 8630 Mar, [facility] [id number] [place] [address] 23668- 8432 Mar, Neck pain M54.2 and Weakness generalized R53.1 [place] [id number] [place] [address] 19592- 5589 Mar, [facility] [id number] [place] [address] 51896- 1183 Mar, Cervicalgia M54.2 and Impacted cerumen of both ears H61.23 [place] [id number] [place] [address] 63913- 2410 Mar, [place] [address] 53599- 5036 Mar, Type 2 diabetes mellitus with diabetic neuropathy, without long-term current use of insulin E11.40 [facility] [address] [address] 29 Feb, 2016 [facility] [address] [address] Feb, Hypoxia R09.02 [facility] [id number] [place] [address] 11030- 6669 Feb, [facility] [id number] [place] [address] 53779- 2221 Feb, [facility] [id number] [place] [address] 27762- 5151 Feb, [facility] [id number] [place] [address] 39265- 6078 16 Feb, 2016 Type 2 diabetes mellitus with diabetic neuropathy, without long-term current use of insulin E11.40 [facility] [address] [address]408 15 Feb, 2016 Osteoarthritis of both knees, unspecified osteoarthritis type M17.0 [facility] [id number], [place] [address] 8472 Feb, [facility] [address] [place] [address] 4048 Feb, [facility] [address], [place] [address] 8519 Feb, [facility] [id number], [place] [address] 2418 Jan, [facility] [id number] [address] 3566 Jan, [facility] [address] [place] [address]- 7042 Jan, [facility] [id number] [place] [address] 85801- 8321 Jan, [facility] [id number] [place] [address] 96701- 2518 Jan, Tinea pedis of both feet B35.3 [place] [address] 57416- 0295 03 Jan, 2016 Type 2 diabetes mellitus [...] seasonality J30.9 and Encounter for immunization Z23 [place] [address] 56040- 4178 Jan, [facility] [address] 71673- 4823 Jan, [place] [address] 90756- 5565 Dec, [place] [id number] [place] [address] 47773- 4945 Dec, [facility] [address] [address] -[address] Dec, Unspecified asthma with (acute) exacerbation J45.901 and Chronic obstructive pulmonary disease with (acute) exacerbation J44.1 [place] [address] 29258- 4317 Dec, Arthritis of both knees M19.90 and Acute medial meniscus tear, right, initial encounter S83.241A [place] [address] 34076- 0870 Dec, [facility] [address] [place] [address]- 6100 14 Dec, 2015 [facility] [address] [address]- 4881 14 Dec, 2015 [facility] [address] [address]- 5987 Dec, [facility] [id number] [place] [address] 07721- 5842 Dec, History of pneumonia Z87.01 [facility] [id number], [place] [address]- 6625 Dec, [facility] [id number] [place] [address] 94856- 2522 Dec, [facility] [id number] [place] [address] 59901- 9775 Dec, [facility] [id number] [place] [address] 55470- 4558 Dec, [facility] [address], [place] [address]- 0619 Dec, [facility] [id number], [place] [address]- 0906 Dec, [facility] [id number], [place] [address] 3548 30 Nov, 2015 Cough R05 and Pneumonia due to infectious organism, unspecified laterality, unspecified part of lung J18.9 [facility] [id number], [place] [address]- 4954 Nov, [facility] [id number] [place] [address] 34854- 0612 Nov, Type 2 diabetes mellitus with diabetic [...] seasonality J30.9 [facility] [address] [facility] [id number] [place] [address]- 8411 12 Nov, 2015 IMMUNIZATIONS No Known Immunizations SOCIAL HISTORY Never Assessed REASON FOR VISIT medication refill PLAN OF CARE VITAL SIGNS MEDICATIONS Medication Instructions Dosage Frequency Start Date End Date Duration Status Benzonatate 100 mg Orally at bedtime 1 capsule as needed Sep, 30 days Active Zantac 150 mg Orally 2 times a day 1 tablet 12h Jun, 30 day(s) Active Doxazosin Mesylate 4 MG Orally at bedtime 1 tablet Active RESULTS No Results PROCEDURES No Known procedures INSTRUCTIONS MEDICATIONS ADMINISTERED No Known Medications MEDICAL (GENERAL) HISTORY Type Description Date Medical History hypertension Medical History chronic obstructive pulmonary disease (COPD)-wears 2L O2 per [place], uses [place] for home O2 Medical History Arthritis-knees and [...] History TURP 2003 Surgical History [facility]2016 Hospitalization History TIA, [facility] 2014 Hospitalization History COPD exacerbation--[facility] 12/27/2015 [facility] 02/2016 [facility] History [facility] pneumonia 11/2016 Hospitalization History COPD exacerbation - Dr Hartley Attending 12/2016 Hospitalization History Cough- [facility] [place] 04/10/2017 [facility]ization [facility] - Possible Pneumonia 06/2017 Hospitalization History COPD hiatal hernia 08/2017
--- OUTSIDE RECORDS SUMMARY | 2018-01-05 15:45 | XMS REPORT ---
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 Active 988600589 Problem Mixed hyperlipidemia E78.2 Active 724294177 Problem Type 2 diabetes mellitus with diabetic neuropathy, without long-term current use of insulin E11.40 Active 92744091 Problem Chronic obstructive pulmonary disease, unspecified COPD type J44.9 Active 70189045 Problem Hypoxia R09.02 Active 216038485 Problem Osteoarthritis of both knees, unspecified osteoarthritis type M17.0 Active 760822852 Problem Allergic rhinitis, unspecified allergic rhinitis trigger, unspecified rhinitis seasonality J30.9 Active 86587906 Problem Chronic pain syndrome G89.4 Active 724822457 ALLERGIES No Information ENCOUNTERS Encounter Location Date Diagnosis [facility] [address] [facility] [id number] [address] Nov, Dermatitis associated with moisture L30.8 ; Seasonal allergies J30.2 and Pressure injury of buttock, stage 1, unspecified laterality L89.301 [place] [address] [address]- 9577 Nov, [place] [address] 92037- 1814 Nov, [place] [address] [address]62- 2012 17 Nov, 2017 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 [place] [address] 14768- 4023 14 Nov, 2017 [place] [address] 07965- 8190 12 Nov, 2017 Unspecified urinary incontinence R32 and Unspecified contact dermatitis due to other agents L25.8 [place] [address] 62355- 9184 Nov, Chronic pain syndrome G89.4 [place] [address] 85201- 3553 10 Nov, 2017 Type 2 diabetes mellitus with diabetic neuropathy, without long-term current use of insulin E11.40 [place] [address] 48050- 1908 Nov, [place] [address] 90838- 9878 Nov, Chronic obstructive pulmonary disease, unspecified COPD type J44.9 and Gastroesophageal reflux disease without esophagitis K21.9 [place] [address] 74292- 8310 Oct, [place] [address] 44949- 0962 Oct, [place] [address] 24499- 0358 Oct, Chronic pain syndrome G89.4 [place] [address] [place] [id number] [place] [address] 39607- 0731 Oct, Community acquired bacterial pneumonia J15.9 ; Allergic rhinitis, unspecified allergic rhinitis trigger, unspecified rhinitis seasonality J30.9 ; Type 2 diabetes mellitus with diabetic neuropathy, without long-term current use of insulin E11.40 ; Chronic GERD K21.9 and Chronic obstructive pulmonary disease, unspecified COPD type J44.9 [facility] [address] [place] [id number] [place] [address] 21705- 7110 Oct, [facility] [address] [place] [id number] [place] [address] 33683- 5931 Oct, [facility] [address] 56966- 0106 Oct, [facility] [address] [place] [id number] [place] [address] 94398- 9751 Oct, [facility] [address] [place] [id number] [place] [address] 23388- 8541 Oct, Essential hypertension I10 [place] [address] [place] [id number] [place] [address] 23618- 6408 Oct, Type 2 diabetes mellitus with diabetic neuropathy, without long-term current use of insulin E11.40 ; Chronic obstructive pulmonary disease , unspecified COPD type J44.9 ; Mixed hyperlipidemia E78.2 ; Osteoarthritis of both knees, unspecified osteoarthritis type M17.0 ; 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 and Essential hypertension I10 [facility] [address] [place] [id number] [place] [address] 53222- 1247 Oct, [facility] [address] [place] [id number] [place] [address] 82619- 0415 Oct, [facility] [address] [place] [id number] [place] [address] 39603- 7131 Oct, Yeast dermatitis B37.2 [facility] [address] [place] [id number] [place] [address] 78034- 7558 Oct, Chronic pain syndrome G89.4 [facility] [address] [address] 6687 Sep, [facility] [address] [place] [id number] [place] [address] 14093- 2167 Sep, [facility] [address] [place] [id number] [place] [address] 87323- 2770 Sep, 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 and Chronic pain syndrome G89.4 [facility] [address] [place] [id number] [place] [address] 96213- 8619 Sep, COPD with acute exacerbation J44.1 [facility] [address] [place] [id number] [place] [address] 46583- 6916 Sep, [facility] [address] [place] [id number] [place] [address] 86811- 5096 Sep, [facility] [address] [place] [id number] [place] [address] 39386- 0414 Sep, Gastroesophageal reflux disease without esophagitis K21.9 [facility] [address] [place] [id number] [place] [address] 01513- 6072 Aug, [facility] [address] [place] [id number] [place] [address] 90279- 2183 Aug, [facility] [address] [address] 7628 Aug, 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 ; Hospital discharge follow-up Z09 ; Chronic obstructive pulmonary disease, unspecified COPD type J44.9 and Chronic GERD K21.9 [facility] [address] [address] 6428 Aug, Chronic pain syndrome G89.4 [facility] [address] [place] [id number] [address] 5717 Aug, [facility] [address] [place] [address] 72342- 3735 Aug, [facility] [address] [place] [address] 14174- 8967 Aug, Chronic pain syndrome G89.4 and 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 [facility] [address] [place] [id number] [place] [address] 21423- 0582 18 Aug, 2017 Type 2 diabetes mellitus with diabetic neuropathy, without long-term current use of insulin E11.40 ; Chronic obstructive pulmonary disease , unspecified COPD type J44.9 ; Chronic GERD K21.9 and 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 [facility] [address] [place] [id number] [place] [address] 66265- 4396 Aug, [facility] [address] [place] [id number] [place] [address] 45866- 6288 Aug, Essential hypertension I10 and Cough R05 [place] [address] [place] [id number] [place] [address] 92304- 7855 Aug, [facility] [address] [place] [id number] [place] [address] 60443- 3853 Aug, [facility] [address] [place] [id number] [place] [address] 15514- 4550 Aug, [facility] [address] [place] [id number] [place] [address] 13058- 2509 Aug, Chronic pain syndrome G89.4 [facility] [address] [place] [id number] [place] [address] 62774- 9148 Aug, [facility] [address] [place] [id number] [place] [address] 36875- 0674 Aug, [facility] [address] [place] [id number] [place] [address] 67946- 3078 July, Gastroesophageal reflux disease without esophagitis K21.9 [facility] [address] [place] [id number] [place] [address] 16303- 4207 July, [facility] [address] [place] [id number] [place] [address] 66583- 9759 July, [place] [address] [place] [id number] [place] [address] 85666- 6489 July, [place] [address] [place] [id number] [place] [address] 40266- 5262 July, Essential hypertension I10 and Chronic pain syndrome G89.4 [place] [address] [place] [id number] [place] [address] 27588- 0378 July, Gastroesophageal reflux disease without esophagitis K21.9 [place] [address] [place] [id number] [place] [address] 73971- 2962 July, 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 [place] [address] [place] [id number] [place] [address] 07089- 3002 July, Chronic obstructive pulmonary disease, unspecified COPD type J44.9 ; Nocturnal cough R05 ; 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 and Recurrent major depressive disorder, in partial 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 [place] [address] [place] [id number] [place] [address] 16639- 5345 July, [place] [address] [place] [id number] [place] [address] 33361- 2942 July, Type 2 diabetes mellitus with diabetic neuropathy, without long-term current use of insulin E11.40 [place] [address] [place] [id number] [place] [address] 22783- 7765 July, Nocturnal hypoxemia G47.34 ; Chronic obstructive pulmonary disease, unspecified COPD type J44.9 and Nocturnal cough R05 [place] [address] [place] [id number] [place] [address] 52063- 2491 July, [place] [address] [place] [id number] [place] [address] 48021- 3113 July, [place] [address] [place] [id number] [place] [address] 36075- 3051 July, [place] [address] [place] [id number] [place] [address] 33489- 9975 Jun, Chronic pain syndrome G89.4 [facility] [address] [place] [id number] [place] [address] 18229- 5007 Jun, [facility] [address] [place] [id number] [place] [address] 95012- 2741 Jun, [facility] [address] [place] [id number] [place] [address] 37032- 9747 Jun, 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 [place] [address] 91595- 7980 Jun, [place] [address] 74448- 1125 Jun, Gastroesophageal reflux disease without esophagitis K21.9 [place] [address] 41358- 3074 Jun, Allergic rhinitis, unspecified allergic rhinitis trigger, unspecified rhinitis seasonality J30.9 [place] [address] [place] [id number] [place] [address] 90098- 5401 Jun, Chronic pain syndrome G89.4 [place] [address] [place] [id number] [place] [address] 80953- 7381 May, [place] [address] [place] [id number] [place] [address] 42105- 0508 May, COPD with acute exacerbation J44.1 [place] [address] 56635- 1094 May, Type 2 diabetes mellitus with diabetic neuropathy, without long-term current use of insulin E11.40 ; COPD with acute exacerbation J44.1 ; Hypoxia R09.02 ; Chronic pain syndrome G89.4 ; Yeast dermatitis B37.2 ; 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 and 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 [place] [address] [place] [id number] [place] [address] 14199- 7243 May, [place] [address] [address] 2546 May, Chronic pain syndrome G89.4 [facility] [address] [address] 2546 May, [facility] [address] [address] 2546 May, [facility] [address] [place] [id number] [place] [address] 92270- 6016 May, Mixed hyperlipidemia E78.2 [facility] [address] [place] [id number] [place] [address] 34651- 1346 May, Chronic pain syndrome G89.4 [facility] [address] [place] [id number] [place] [address] 23280 2546 May, Anxiety F41.9 and Chronic pain syndrome G89.4 [facility] [address] [place] [id number] [address]- 0929 Mar, [facility] [address] [place] [address] 63799- 6521 Mar, [facility] [address] [place] [address] 71473- 6901 Mar, [facility] [address] [address]- 8003 Mar, [facility] [address] [address]- 8855 Mar, [facility] [address] [address]- 1572 Mar, Anxiety F41.9 and Chronic pain syndrome G89.4 [facility] [address] [address]- 2654 Mar, Medicare annual wellness visit, initial Z00.00 [...] Hiatal hernia K44.9 and Actinic keratosis L57.0 [facility] [address] [place] [id number] [place] [address] 44442- 3750 Mar, [facility] [address] [place] [id number] [place] [address] 39250- 7771 Mar, Chronic pain syndrome G89.4 [facility] [address] [place] [id number] [place] [address] 62928- 8358 Feb, [facility] [address] [place] [id number] [place] [address] 76176- 2675 Feb, Chronic pain syndrome G89.4 [facility] [address] [place] [id number] [place] [address] 87906- 0064 Feb, [facility] [address] [place] [id number] [place] [address] 12814- 2565 Feb, [facility] [address] [place] [id number] [place] [address] 05102- 7328 Feb, Anxiety F41.9 [facility] [address] [place] [id number] [place] [address] 87322- 0575 Feb, [facility] [address] [place] [id number] [place] [address] 85325- 5507 Feb, Chronic pain syndrome G89.4 [facility] [address] [place] [id number] [place] [address] 71695- 9482 Jan, Essential hypertension I10 [facility] [address] [place] [id number] [place] [address] 26762- 8648 Jan, Chronic pain syndrome G89.4 [facility] [address] [place] [id number] [place] [address] 91704- 3309 Jan, [place] [address] 21967- 3781 Jan, Anxiety F41.9 [place] [address] [place] [id number] [place] [address] 69973- 5552 Jan, Encounter for immunization Z23 and Community acquired pneumonia, unspecified laterality J18.9 [facility] [address] [place] [id number] [place] [address] 04278- 6161 Jan, Type 2 diabetes mellitus with diabetic neuropathy, without long-term current use of insulin E11.40 [place] [address] 91066- 8430 Dec, Anxiety F41.9 and Chronic pain syndrome G89.4 [place] [address] 91146- 6690 Dec, Chronic pain syndrome G89.4 and Essential hypertension I10 [place] [address] 54210- 4525 Dec, [place] [address] 13155- 8397 Dec, Anxiety F41.9 [place] [address] [place] [id number] [place] [address] 70615- 8524 Dec, [place] [address] [place] [id number] [place] [address] 26951- 9725 Dec, Type 2 diabetes mellitus with diabetic neuropathy, without long-term current use of insulin E11.40 ; Lactic acidosis E87.2 ; Chronic obstructive pulmonary disease, unspecified COPD type J44.9 and Encounter for immunization Z23 [facility] [address] [place] [id number] [place] [address] 95131- 5212 Dec, Chronic pain syndrome G89.4 [place] [address] 88011- 7695 Nov, [facility] [address] [address]- 0479 Nov, Chronic pain syndrome G89.4 [facility] [address] [address]- 5696 Nov, [facility] [address] [place] [address], [place] [address]- 5044 Nov, [facility] [address] [place] [address] 43886- 8024 15 Nov, 2016 Anxiety F41.9 [facility] [address] [place] [id number] [place] [address] 13848- 3594 11 Nov, 2016 Anxiety F41.9 [facility] [address] [place] [address] 33182- 8305 08 Nov, 2016 [facility] [address] [place] [id number] [place] [address] 09901- 8299 05 Nov, 2016 [facility] [address] [place] [address] 66427- 0334 Nov, [facility] [address] [place] [id number] [place] [address] 92602- 8866 Oct, [facility] [address] [place] [address] 06784- 4491 Oct, [facility] [address] [place] [address] 86680- 0190 Oct, [facility] [address] [address]- 1106 Oct, Essential hypertension I10 and Chronic pain syndrome G89.4 [facility] [address] [place] [address] 37140- 9949 Oct, Anxiety F41.9 [facility] [address] [address]- 8749 Oct, [facility] [address] [place] [id number] [place] [address] 68784- 1219 Oct, Chronic pain syndrome G89.4 [facility] [address] [place] [id number] [place] [address] 74180 -0051 Oct, Sore throat J02.9 and Acute nasopharyngitis (common cold) J00 [facility] [address] [place] [id number] [place] [address] 56395- 9708 Sep, [facility] [address] 08049- 0458 Sep, COPD exacerbation J44.1 [facility] [address] 76365- 9524 Sep, Chronic pain syndrome G89.4 [facility] [address] [place] [id number] [place] [address] 60247- 4124 Sep, Essential hypertension I10 [facility] [address] 01897- 0380 Sep, [facility] [address] [place] [id number] [place] [address] 81794- 5325 Sep, [facility] [address] [place] [place] [id number] [place] [address] 46360- 0308 Sep, Anxiety F41.9 [facility] [address] [place] [place] [id number] [place] [address] 54990- 5933 Sep, Chronic pain syndrome G89.4 [facility] [address] [place] [id number] [place] [address] 70058- 8890 Sep, [facility] [address] [place] [place] [id number] [place] [address] 88634- 3962 Aug, Acute seasonal allergic rhinitis, unspecified trigger J30.2 ; Hiatal hernia K44.9 and Chronic pain syndrome G89.4 [facility] [address] [id number] [place] [address] 94291- 8464 Aug, [facility] [address] [place] [address]- 4021 Aug, [facility] [address] [place] [place] [id number] [place] [address] 36877- 1127 Aug, Chronic obstructive pulmonary disease, unspecified COPD type J44.9 [facility] [address] [place] [id number] [place] [address] 27706- 1560 14 Aug, 2016 Anxiety F41.9 [facility] [address] [place] [place] [id number] [place] [address] 33363- 9040 08 Aug, 2016 Chronic pain syndrome G89.4 [facility] [address] [place] [place] [id number] [place] [address] 16205- 2354 Aug, Hiatal hernia K44.9 and Actinic keratosis L57.0 [facility] [id number] [place] [address] 12930- 1877 Aug, [facility] [id number] [place] [address] 75901- 9925 Aug, Anxiety F41.9 [facility] [id number] [place] [address] 52535- 3237 July, [facility] [id number] [place] [address] 14068- 7052 July, Hiatal hernia K44.9 [facility] [id number] [place] [address] 67951- 5105 July, [facility] [id number] [place] [address] 68865- 4583 July, Anxiety F41.9 and Chronic pain syndrome G89.4 [facility] [id number] [place] [address] 69618- 6295 July, [facility] [id number] [place] [address] 44435- 1339 Jun, Chronic pain syndrome G89.4 [facility] [id number] [place] [address] 26648- 9025 Jun, Chronic pain syndrome G89.4 [facility] [id number] [address] Jun, [facility] [id number] [place] [address] 31975- 3513 Jun, Anxiety F41.9 [facility] [id number] [place] [address] 56623- 5099 Jun, Allergic rhinitis, unspecified allergic rhinitis trigger, unspecified rhinitis seasonality J30.9 [facility] [id number] [place] [address] 32197- 3962 Jun, [facility] [id number] [place] [address] 02671- 1534 May, Chronic pain syndrome G89.4 [facility] [id number] [place] [address] 32466- 2850 May, [facility] [id number] [place] [address] 13726- 4875 May, [facility] [id number] [place] [address] 68083- 8410 May, Anxiety F41.9 [facility] [id number] [place] [address] 77377- 9325 May, Type 2 diabetes mellitus with diabetic [...] Anxiety F41.9 and Chronic pain syndrome G89.4 [facility] [address] [address]- [address] May, Essential hypertension I10 ; Type 2 diabetes mellitus with diabetic neuropathy, without long-term current use of insulin E11.40 ; Mixed hyperlipidemia E78.2 ; Chronic obstructive pulmonary disease, unspecified COPD type J44.9 and Chronic GERD K21.9 [place] [id number] [place] [address] 91565- 5787 May, [place] [id number] [place] [phone]- [phone] May, [place] [address] [id number]- 5917 May, Type 2 diabetes mellitus with diabetic neuropathy, without long-term current use of insulin E11.40 [place] [address] [address] [address] May, Dementia without behavioral disturbance, unspecified dementia type F03.90 [place] [address] [address]- [address] May, Type 2 diabetes mellitus with diabetic neuropathy, without long-term current use of insulin E11.40 ; Essential hypertension I10 ; Mixed hyperlipidemia E78.2 ; Chronic obstructive pulmonary disease, unspecified COPD type J44.9 ; Chronic GERD K21.9 and Osteoarthritis of both knees, unspecified osteoarthritis type M17.0 [place] [address] [place] [id number] [place] [address]704- 0737 May, [place] [address] [place] [id number] [place] [address] 02445- 6433 May, [place] [address] [place] [id number] [place] [address] 90558- 3305 May, Anxiety F41.9 and Unspecified symptoms and signs involving cognitive functions and awareness R41.9 [place] [address] [place] [id number] [place] [address] 30920- 0266 May, [place] [address] [place] [id number] [place] [address] 67455- 5621 May, Type 2 diabetes mellitus with diabetic neuropathy, without long-term current use of insulin E11.40 ; Anxiety F41.9 and Chronic obstructive pulmonary disease, unspecified COPD type J44.9 [place] [address] [place] [id number] [place] [address] 20225- 2173 May, [facility] [address] [place] [id number] [place] [address] 76607- 6009 May, [facility] [address] [place] [id number] [place] [address] 33514- 9755 May, [place] [address] [address]- [address]295 May, Chronic obstructive pulmonary disease, unspecified COPD type J44.9 [place] [address] 85170- 6481 Mar, [place] [address] [address]- [address]386 Mar, Arthritis of both knees M19.[address] [address]- [address]186 Mar, Type 2 diabetes mellitus with diabetic neuropathy, without long-term current use of insulin E11.40 [place] [address] 00503- 0622 Mar, [place] [address] [place] [id number] [place] [address] 35859- 9342 Mar, Neck pain M54.2 and Weakness generalized R53.1 [place] [address] [place] [id number] [place] [address] 51373- 4896 Mar, [place] [address] [place] [id number] [place] [address] 95323- 7968 Mar, Cervicalgia M54.2 and Impacted cerumen of both ears H61.23 [place] [address] [place] [id number] [place] [address] 80126- 8748 Mar, [place] [address] [address]- 9737 Mar, Type 2 diabetes mellitus with diabetic neuropathy, without long-term current use of insulin E11.40 [facility] [address] [address] 29 Feb, 2016 [facility] [address] [address] Feb, Hypoxia R09.02 [facility] [address] [place] [id number] [place] [address] 44096- 7448 Feb, [facility] [address] [place] [id number] [place] [address] 90626- 4600 Feb, [facility] [address] [place] [id number] [place] [address] 86184- 4405 Feb, [facility] [address] [place] [id number] [place] [address] 68770- 8008 16 Feb, 2016 Type 2 diabetes mellitus with diabetic neuropathy, without long-term current use of insulin E11.40 [facility] [address] [address] 15 Feb, 2016 Osteoarthritis of both knees, unspecified osteoarthritis type M17.0 [facility] [address] [address] 0756 Feb, [facility] [address] [address] 4754 Feb, [facility] [address] [address]- 9535 Feb, [facility] [address] [address]- 0794 Jan, [facility] [address] [place] [id number] [address]- 8105 Jan, [facility] [address] [address]- 4443 Jan, [facility] [id number] [place] [address] 64116- 1941 Jan, [facility] [address] [place] [id number] [place] [address] 60288- 8679 Jan, Tinea pedis of both feet B35.3 [place] [address] 88140- 0847 03 Jan, 2016 Type 2 diabetes mellitus [...] seasonality J30.9 and Encounter for immunization Z23 [place] [address] 51027- 5645 Jan, [facility] [address] 20077- 7039 Jan, [place] [address] 77029- 3794 Dec, [place] [address] [place] [id number] [place] [address] 15872- 4213 Dec, [facility] [address] 09[address] -[address] Dec, Unspecified asthma with (acute) exacerbation J45.901 and Chronic obstructive pulmonary disease with (acute) exacerbation J44.1 [place] [address] 03152- 3130 Dec, Arthritis of both knees M19.90 and Acute medial meniscus tear, right, initial encounter S83.241A [place] [address] 83170- 6462 Dec, [place] [address] [place] [address]- 7771 14 Dec, 2015 [facility] [address] [address]- 3679 14 Dec, 2015 [facility] [address] [address]- 6482 Dec, [facility] [id number] [place] [address] 85955- 6862 Dec, History of pneumonia Z87.01 [facility] [address] [address]- 2893 Dec, [facility] [address] [place] [id number] [place] [address] 05823- 0826 Dec, [facility] [address] [place] [id number] [place] [address] 34251- 1534 Dec, [facility] [address] [place] [id number] [place] [address] 77229- 6237 Dec, [facility] [address] [address]- 6633 Dec, [facility] [address] [address]- 4625 Dec, [facility] [address] [address]- 4954 30 Nov, 2015 Cough R05 and Pneumonia due to infectious organism, unspecified laterality, unspecified part of lung J18.9 [facility] [address] [address]- 7554 Nov, [facility] [id number] [place] [address] 02780- 3751 Nov, Type 2 diabetes mellitus with diabetic [...] allergic rhinitis trigger, unspecified rhinitis seasonality J30.9 [facility] [address] [facility] [id number] [place] [address]- 1451 12 Nov, 2015 IMMUNIZATIONS No Known Immunizations SOCIAL HISTORY Never Assessed REASON FOR VISIT Requests return call PLAN OF CARE VITAL SIGNS MEDICATIONS No Known Medications RESULTS No Results PROCEDURES No Known procedures INSTRUCTIONS MEDICATIONS ADMINISTERED No Known Medications MEDICAL (GENERAL) HISTORY Type Description Date Medical History hypertension Medical History chronic obstructive pulmonary disease (COPD)-wears 2L O2 per [place], uses [employer] for home O2 Medical History Arthritis-knees and [...] [address] [facility] 2014 Hospitalization History COPD exacerbation--[facility] 12/27/2015 [facility] - [facility] 02/2016 [facility]ization History [facility] pneumonia 11/2016 Hospitalization History COPD exacerbation - Dr Hartley Attending 12/2016 Hospitalization History Cough- [facility] 04/10/2017 [facility]ization History [facility] - Possible Pneumonia 06/2017 Hospitalization History COPD hiatal hernia 08/2017
--- OUTSIDE RECORDS SUMMARY | 2018-01-05 15:46 | XMS REPORT ---
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 Active 972890356 Problem Mixed hyperlipidemia E78.2 Active 448503139 Problem Type 2 diabetes mellitus with diabetic neuropathy, without long-term current use of insulin E11.40 Active 06582914 Problem Chronic obstructive pulmonary disease, unspecified COPD type J44.9 Active 90747762 Problem Hypoxia R09.02 Active 932086518 Problem Osteoarthritis of both knees, unspecified osteoarthritis type M17.0 Active 140300688 Problem Allergic rhinitis, unspecified allergic rhinitis trigger, unspecified rhinitis seasonality J30.9 Active 09929151 Problem Chronic pain syndrome G89.4 Active 321949811 ALLERGIES Substance Reaction Event Type Date Status Hydrocodone-Acetaminophen Unknown Drug Allergy Oct, Active Codeine Sulfate Unknown Drug Allergy Oct, Active Aspirin Unknown Drug Allergy Oct, Active ENCOUNTERS Encounter Location Date Diagnosis [facility] [id number] [place] [address] 46164- 9119 26 Nov, 2017 Dermatitis associated with moisture L30.8 ; Seasonal allergies J30.2 and Pressure injury of buttock, stage 1, unspecified laterality L89.301 [facility] [id number] [place] [address] 64155- 1546 Nov, [place] [address] 81224- 1104 25 Nov, 2017 [place] [id number] [place] [address] 39036- 7865 17 Nov, 2017 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 [place] [address] 01277- 7727 14 Nov, 2017 [place] [id number] [place] [address] 31391- 9894 12 Nov, 2017 Unspecified urinary incontinence R32 and Unspecified contact dermatitis due to other agents L25.8 [place] [id number] [place] [address] 32907- 8116 11 Nov, 2017 Chronic pain syndrome G89.4 [place] [id number] [place] [address] 43088- 1800 10 Nov, 2017 Type 2 diabetes mellitus with diabetic neuropathy, without long-term current use of insulin E11.40 [place] [id number] [place] [address] 65190- 5172 Nov, [place] [id number] [place] [address] 43018- 3528 Nov, Chronic obstructive pulmonary disease, unspecified COPD type J44.9 and Gastroesophageal reflux disease without esophagitis K21.9 [place] [id number] [place] [address] 99866- 6611 Oct, [place] [id number] [place] [address] 32555- 6275 Oct, [place] [id number] [place] [address] 37676- 2521 Oct, Chronic pain syndrome G89.4 [facility] [id number] [place] [address] 77377- 0957 Oct, Community acquired bacterial pneumonia J15.9 ; Allergic rhinitis, unspecified allergic rhinitis trigger, unspecified rhinitis seasonality J30.9 ; Type 2 diabetes mellitus with diabetic neuropathy, without long-term current use of insulin E11.40 ; Chronic GERD K21.9 and Chronic obstructive pulmonary disease, unspecified COPD type J44.9 [facility] [id number] [place] [address] 36247- 6951 Oct, [facility] [id number] [place] [address] 09167- 6147 Oct, [facility] [id number] [place] [address] 50398- 2341 Oct, [facility] [id number] [place] [address] 55903- 8941 Oct, [facility] [id number] [place] [address] 35268- 8704 Oct, Essential hypertension I10 [place] [id number] [place] [address] 32165- 1382 Oct, Type 2 diabetes mellitus with diabetic neuropathy, without long-term current use of insulin E11.40 ; Chronic obstructive pulmonary disease , unspecified COPD type J44.9 ; Mixed hyperlipidemia E78.2 ; Osteoarthritis of both knees, unspecified osteoarthritis type M17.0 ; 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 and Essential hypertension I10 [facility] [id number] [place] [address] 51266- 7386 Oct, [facility] [id number] [place] [address] 92139- 3145 Oct, [facility] [id number] [place] [address] 78891- 5492 Oct, Yeast dermatitis B37.2 [place] [address] [address] 1125 Oct, Chronic pain syndrome G89.4 [facility] [id number] [place] [address] 98442- 9333 Sep, [facility] [id number] [place] [address] 06358- 6269 Sep, [facility] [id number] [place] [address] 23882- 8698 Sep, 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 and Chronic pain syndrome G89.4 [facility] [id number] [place] [address] 84474- 9933 Sep, COPD with acute exacerbation J44.1 [facility] [id number] [place] [address] 20640- 5565 Sep, [facility] [id number] [place] [address] 44901- 0365 Sep, [facility] [id number] [place] [address] 67355- 6620 Sep, Gastroesophageal reflux disease without esophagitis K21.9 [facility] [id number] [place] [address] 86571- 9993 Aug, [facility] [id number] [place] [address] 03659- 1016 Aug, [facility] [id number] [place] [address] 91512- 8058 Aug, 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 ; Hospital discharge follow-up Z09 ; Chronic obstructive pulmonary disease, unspecified COPD type J44.9 and Chronic GERD K21.9 [facility] [address] [address]- 1051 Aug, Chronic pain syndrome G89.4 [facility] [id number] [place] [address] 20316- 4593 Aug, [facility] [id number] [place] [address] 68788- 5925 Aug, [facility] [address] 71563- 3616 Aug, Chronic pain syndrome G89.4 and 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 [place] [address] 70753- 9463 Aug, Type 2 diabetes mellitus with diabetic neuropathy, without long-term current use of insulin E11.40 ; Chronic obstructive pulmonary disease , unspecified COPD type J44.9 ; Chronic GERD K21.9 and 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 [place] [address] 77015- 5340 Aug, [facility] [address] 25290- 0004 Aug, Essential hypertension I10 and Cough R05 [facility] [address] 93892- 7817 Aug, [facility] [address] 14383- 5433 Aug, [facility] [id number] [place] [address] 10210- 7072 Aug, [facility] [id number] [place] [address] 65964- 6995 Aug, Chronic pain syndrome G89.4 [facility] [id number] [place] [address] 54020- 5405 Aug, [facility] [address] 54421- 1458 Aug, [facility] [id number] [place] [address] 13362- 8045 July, Gastroesophageal reflux disease without esophagitis K21.9 [facility] [address] 08299- 1174 July, [facility] [id number] [place] [address] 57450- 6682 July, [facility] [id number] [place] [address] 73283- 6889 July, [facility] [id number] [place] [address] 38625- 0214 July, Essential hypertension I10 and Chronic pain syndrome G89.4 [place] [id number] [place] [address] 82205- 1178 July, Gastroesophageal reflux disease without esophagitis K21.9 [place] [id number] [place] [address] 10694- 2253 July, 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 [place] [address] 37978- 0832 July, Chronic obstructive pulmonary disease, unspecified COPD type J44.9 ; Nocturnal cough R05 ; 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 and Recurrent major depressive disorder, in partial 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 [place] [id number] [place] [address] 97281- 2195 July, [place] [id number] [place] [address] 55844- 1359 July, Type 2 diabetes mellitus with diabetic neuropathy, without long-term current use of insulin E11.40 [place] [id number] [place] [address] 43035- 0821 July, Nocturnal hypoxemia G47.34 ; Chronic obstructive pulmonary disease, unspecified COPD type J44.9 and Nocturnal cough R05 [place] [id number] [place] [address] 51909- 5106 July, [place] [id number] [place] [address] 51493- 3689 July, [facility] [id number] [place] [address] 56240- 2187 July, [place] [id number] [place] [address] 75916- 3287 Jun, Chronic pain syndrome G89.4 [place] [id number] [place] [address] 57652- 5074 Jun, [place] [address] 07660- 4268 Jun, [place] [address] 15238- 2997 Jun, 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 [place] [address] 42062- 9958 Jun, [place] [address] 90925- 1600 Jun, Gastroesophageal reflux disease without esophagitis K21.9 [place] [address] 37196- 5847 Jun, Allergic rhinitis, unspecified allergic rhinitis trigger, unspecified rhinitis seasonality J30.9 [place] [address] 10878- 5660 Jun, Chronic pain syndrome G89.4 [place] [id number] [place] [address] 80263- 1924 May, [place] [id number] [place] [address] 30136- 6272 May, COPD with acute exacerbation J44.1 [place] [address] 96512- 9891 14 May, 2017 Type 2 diabetes mellitus with diabetic neuropathy, without long-term current use of insulin E11.40 ; COPD with acute exacerbation J44.1 ; Hypoxia R09.02 ; Chronic pain syndrome G89.4 ; Yeast dermatitis B37.2 ; 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 and 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 [place] [address] [address]- 6956 May, [facility] [address] [address]- 0766 May, Chronic pain syndrome G89.4 [facility] [address] [address] 2546 May, [facility] [id number] [place] [address] 00032 2546 May, [facility] [address] [address] 2546 May, Mixed hyperlipidemia E78.2 [facility] [address] [address] 2546 May, Chronic pain syndrome G89.4 [facility] [address] [address]- 6926 May, Anxiety F41.9 and Chronic pain syndrome G89.4 [facility] [address] [address]- 1366 Mar, [facility] [address] [address]- 3246 Mar, [facility] [address] [address]- 1206 Mar, [facility] [address] [address] 2546 Mar, [facility] [id number] [address] 2546 Mar, [facility] [address] [address] 2546 Mar, Anxiety F41.9 and Chronic pain syndrome G89.4 [facility] [address] [address]- 3566 Mar, Medicare annual wellness visit, initial Z00.00 [...] Hiatal hernia K44.9 and Actinic keratosis L57.0 [facility] [address] 96208- 3389 Mar, [facility] [address] 61610- 3822 Mar, Chronic pain syndrome G89.4 [facility] [address] 01318- 8746 Feb, [facility] [id number] [place] [address] 29289- 9683 Feb, Chronic pain syndrome G89.4 [facility] [id number] [place] [address] 66631- 0269 Feb, [facility] [id number] [place] [address] 02223- 1111 Feb, [facility] [id number] [place] [address] 86053- 2563 Feb, Anxiety F41.9 [facility] [id number] [place] [address] 53844- 0486 Feb, [facility] [id number] [place] [address] 28345- 9491 Feb, Chronic pain syndrome G89.4 [facility] [id number] [place] [address] 99832- 2530 Jan, Essential hypertension I10 [facility] [id number] [place] [address] 01766- 8382 Jan, Chronic pain syndrome G89.4 [place] [address] 16867- 7313 Jan, [place] [address] 71658- 4646 Jan, Anxiety F41.9 [place] [address] 78581- 4317 Jan, Encounter for immunization Z23 and Community acquired pneumonia, unspecified laterality J18.9 [place] [address] 603258- 0266 Jan, Type 2 diabetes mellitus with diabetic neuropathy, without long-term current use of insulin E11.40 [place] [address] 63832- 4581 Dec, Anxiety F41.9 and Chronic pain syndrome G89.4 [place] [address] 14007- 2857 Dec, Chronic pain syndrome G89.4 and Essential hypertension I10 [place] [address] 30288- 7237 Dec, [place] [id number] [place] [address] 81775- 2472 Dec, Anxiety F41.9 [place] [id number] [place] [address] 79233- 9240 Dec, [place] [id number] [place] [address] 42494- 0117 Dec, Type 2 diabetes mellitus with diabetic neuropathy, without long-term current use of insulin E11.40 ; Lactic acidosis E87.2 ; Chronic obstructive pulmonary disease, unspecified COPD type J44.9 and Encounter for immunization Z23 [place] [address] 75801- 1709 Dec, Chronic pain syndrome G89.4 [facility] [address] [address]- 4825 Nov, [facility] [id number] [place] [address] 42889 2546 Nov, Chronic pain syndrome G89.4 [facility] [address] [address]- 8182 Nov, [facility] [id number] [place] [address] 59746- 2812 Nov, [facility] [id number] [place] [address] 46792- 9602 15 Nov, 2016 Anxiety F41.9 [facility] [id number] [place] [address] 30705- 6866 11 Nov, 2016 Anxiety F41.9 [facility] [id number] [place] [address] 04721- 5538 08 Nov, 2016 [facility] [id number] [place] [address] 65955- 7037 05 Nov, 2016 [facility] [id number] [place] [address] 82618- 0920 Nov, [facility] [address] [address]- 1723 Oct, [facility] [address] [address]- 5938 Oct, [facility] [id number] [address]- 6339 Oct, [facility] [id number] [place] [address] 07634- 6212 Oct, Essential hypertension I10 and Chronic pain syndrome G89.4 [facility] [address] [address]- 0617 Oct, Anxiety F41.9 [facility] [id number] [address]- 0722 Oct, [facility] [id number] [place] [address] 82175- 9463 Oct, Chronic pain syndrome G89.4 [facility] [address] [address] -4385 Oct, Sore throat J02.9 and Acute nasopharyngitis (common cold) J00 [facility] [id number] [place] [address] 67051- 9798 Sep, [facility] [id number] [place] [address] 38796- 7071 Sep, COPD exacerbation J44.1 [facility] [id number] [place] [address] 14354- 6794 Sep, Chronic pain syndrome G89.4 [facility] [id number] [place] [address] 12189- 0670 Sep, Essential hypertension I10 [facility] [id number] [place] [address] 68095- 5245 Sep, [facility] [id number] [place] [address] 03118- 4172 Sep, [facility] [id number] [place] [address] 05389- 5299 Sep, Anxiety F41.9 [facility] [id number] [place] [address] 30611- 4446 Sep, Chronic pain syndrome G89.4 [facility] [id number] [place] [address] 63291- 6747 Sep, [facility] [id number] [place] [address] 92571- 5996 Aug, Acute seasonal allergic rhinitis, unspecified trigger J30.2 ; Hiatal hernia K44.9 and Chronic pain syndrome G89.4 [facility] [id number] [address]- 6400 Aug, [facility] [id number] [place] [address] 04485- 3079 Aug, [facility] [id number] [place] [address] 33869- 6659 Aug, Chronic obstructive pulmonary disease, unspecified COPD type J44.9 [facility] [id number] [place] [address] 98891- 9721 14 Aug, 2016 Anxiety F41.9 [facility] [id number] [place] [address] 33607- 1655 08 Aug, 2016 Chronic pain syndrome G89.4 [facility] [id number] [place] [address] 35449- 4444 07 Aug, 2016 Hiatal hernia K44.9 and Actinic keratosis L57.0 [facility] [id number] [place] [address] 41165- 1494 Aug, [facility] [id number] [place] [address] 50232- 0357 Aug, Anxiety F41.9 [facility] [id number] [place] [address] 65976- 7528 July, [facility] [address] [address]- 4698 July, Hiatal hernia K44.9 [facility] [id number] [place] [address] 25105- 2537 July, [facility] [id number] [place] [address] 43261- 0779 July, Anxiety F41.9 and Chronic pain syndrome G89.4 [facility] [address] [address]- 8000 July, [facility] [id number] [place] [address] 16794- 3086 Jun, Chronic pain syndrome G89.4 [facility] [id number] [place] [address] 34311- 0744 Jun, Chronic pain syndrome G89.4 [facility] [id number] [place] [address] 72930- 2794 Jun, [facility] [id number] [place] [address] 86736- 0123 Jun, Anxiety F41.9 [place] [id number] [place] [address] 34105- 4005 Jun, Allergic rhinitis, unspecified allergic rhinitis trigger, unspecified rhinitis seasonality J30.9 [place] [id number] [place] [address] 24017- 4670 Jun, [place] [id number] [place] [address] 65140- 5952 May, Chronic pain syndrome G89.4 [facility] [id number] [place] [address] 45946- 0468 May, [place] [id number] [place] [address] 33032- 3160 May, [place] [id number] [place] [address] 34890- 3838 May, Anxiety F41.9 [facility] [facility] [id number] [place] [address] 18413- 0380 May, Type 2 diabetes mellitus with diabetic [...] Anxiety F41.9 and Chronic pain syndrome G89.4 [facility] [id number] [place] [address] 91594- 0956 May, Essential hypertension I10 ; Type 2 diabetes mellitus with diabetic neuropathy, without long-term current use of insulin E11.40 ; Mixed hyperlipidemia E78.2 ; Chronic obstructive pulmonary disease, unspecified COPD type J44.9 and Chronic GERD K21.9 [place] [id number] [place] [address] 51213- 2541 May, [place] [address] 338653- 9138 May, [place] [id number] [place] [address] 26366- 8346 May, Type 2 diabetes mellitus with diabetic neuropathy, without long-term current use of insulin E11.40 [facility] [facility] [id number] [place] [address] 39081- 8968 May, Dementia without behavioral disturbance, unspecified dementia type F03.90 [facility] [facility] [id number] [place] [address] 13767- 4491 May, Type 2 diabetes mellitus with diabetic neuropathy, without long-term current use of insulin E11.40 ; Essential hypertension I10 ; Mixed hyperlipidemia E78.2 ; Chronic obstructive pulmonary disease, unspecified COPD type J44.9 ; Chronic GERD K21.9 and Osteoarthritis of both knees, unspecified osteoarthritis type M17.0 [place] [id number] [place] [address] 44070- 6919 May, [place] [id number] [place] [address] 08820- 0814 May, [place] [id number] [place] [address] 78222- 9421 May, Anxiety F41.9 and Unspecified symptoms and signs involving cognitive functions and awareness R41.9 [facility] [id number] [place] [address] 06815- 9418 May, [facility] [address] [id number] [place] [phone] 14 May, 2016 Type 2 diabetes mellitus with diabetic neuropathy, without long-term current use of insulin E11.40 ; Anxiety F41.9 and Chronic obstructive pulmonary disease, unspecified COPD type J44.9 [place] [address] [place] [id number] [place] [phone] May, [facility] [id number] [place], [place] [address]50- 5485 May, [place] [address] [address] May, [place] [address] [address]12- [address]98 May, Chronic obstructive pulmonary disease, unspecified COPD type J44.9 [place] [address] [place] [id number] [place] [address] 65608- 9041 Mar, [place] [address] 13484- 9094 Mar, Arthritis of both knees M19.90 [place] [address] 6[address]37- 5068 Mar, Type 2 diabetes mellitus with diabetic neuropathy, without long-term current use of insulin E11.40 [place] [address] [place] [id number] [place] [address] 92341- 3553 Mar, [place] [address] [place] [id number] [place] [address] 32749- 8365 Mar, Neck pain M54.2 and Weakness generalized R53.1 [place] [address] [place] [id number] [place] [address] 94390- 0532 Mar, [place] [address] 6[address]12- 0762 Mar, Cervicalgia M54.2 and Impacted cerumen of both ears H61.23 [place] [address] 28106- 9258 Mar, [facility] [address] [address] Mar, Type 2 diabetes mellitus with diabetic neuropathy, without long-term current use of insulin E11.40 [facility] [address] [address] Feb, [facility] [address] [place] [id number] [place] [address] 34477- 1456 Feb, Hypoxia R09.02 [facility] [address] [place] [id number] [place] [address] 08987- 8894 Feb, [facility] [address] [place] [id number] [place] [address] 24446- 7653 Feb, [facility] [address] [place] [id number] [place] [address] 47947- 2929 Feb, [facility] [address] [place] [id number] [place] [address] 99482- 5664 Feb, Type 2 diabetes mellitus with diabetic neuropathy, without long-term current use of insulin E11.40 [facility] [id number] [place] [address] 88041- 1747 Feb, Osteoarthritis of both knees, unspecified osteoarthritis type M17.0 [facility] [address] [address] 14 Feb, 2016 [facility] [address] [address] Feb, [facility] [address] [address] Feb, [facility] [address] [place] [id number] [place] [address] 46126- 3619 Jan, [facility] [address] [address] Jan, [facility] [address] [place] [id number] [place] [address] 96556- 2422 Jan, [place] [address] [place] [id number] [place] [address] 82905- 6306 Jan, [place] [address] 12476- 6107 Jan, Tinea pedis of both feet B35.3 [place] [address] 64262- 4598 Jan, Type 2 diabetes mellitus with diabetic [...] seasonality J30.9 and Encounter for immunization Z23 [place] [address] 86546- 4222 Jan, [place] [address] 50145- 6970 Jan, [place] [address] [place] [id number] [place] [address] 06499- 5245 Dec, [facility] [address] 73027- 3110 Dec, [facility] [address] [place] [id number] [place] [address] 20378 -3576 Dec, Unspecified asthma with (acute) exacerbation J45.901 and Chronic obstructive pulmonary disease with (acute) exacerbation J44.1 [place] [address] [place] [id number] [place] [address] 53612- 6134 Dec, Arthritis of both knees M19.90 and Acute medial meniscus tear, right, initial encounter S83.241A [place] [address] [address] Dec, [facility] [address] [place] [id number] [place] [address] 96811- 3908 Dec, [facility] [address] [place] [id number] [place] [address] 41346- 8447 Dec, [facility] [address] [place] [id number] [place] [address] 01185- 4901 Dec, [facility] [address] [place] [id number] [place] [address] 34659- 5335 Dec, History of pneumonia Z87.01 [facility] [address] [place] [id number] [place] [address] 21707- 2082 Dec, [facility] [address] [place] [id number] [place] [address] 21782- 4727 Dec, [facility] [address] [place] [id number] [place] [address] 26917- 5479 Dec, [facility] [address] [place] [id number] [place] [address] 65807- 6672 Dec, [facility] [address] [place] [id number] [place] [address] 62512- 4132 Dec, [facility] [address] [place] [id number] [place] [address] 50574- 3150 Dec, [facility] [id number] [place] [address] 90451- 6516 30 Nov, 2015 Cough R05 and Pneumonia due to infectious organism, unspecified laterality, unspecified part of lung J18.9 [facility] [address] [place] [id number] [place] [address] 17795- 5774 28 Nov, 2015 [facility] [address] [place] [id number] [place] [address] 11225- 8014 Nov, Type 2 diabetes mellitus with diabetic [...] allergic rhinitis trigger, unspecified rhinitis seasonality J30.9 [facility] [address] [facility] [id number] [place] [address] 12 Nov, 2015 IMMUNIZATIONS No Known Immunizations SOCIAL HISTORY Never Assessed REASON FOR VISIT [facility] f/u-RLL pneumonia PLAN OF CARE Activity Details Follow Up prn Reason: VITAL SIGNS Height 72 in 2017-11-27 Weight 243.9 lbs 2017-11-27 Temperature 98.2 degrees Fahrenheit 2017-11-27 Heart Rate 84 bpm 2017-11-27 Respiratory Rate 22 2017-11-27 Oximetry on room air:92 % 2017-11-27 BMI 33.08 kg/m2 2017-11-27 Blood pressure systolic 130 mmHg 2017-11-27 Blood pressure diastolic 70 mmHg 2017-11-27 MEDICATIONS Medication Instructions Dosage Frequency Start Date End Date Duration Status Ipratropium-Albuterol 0.5-2.5 (3) MG/3ML Inhalation every 4 hrs 3 ml 4h Sep, 10 days Active Atorvastatin Calcium 40 mg Orally Once a day 1 tablet 24h Active Montelukast Sodium 10 mg Orally Once a day 1 tablet in the evening 24h 30 days Active Benzonatate 100 mg Orally at bedtime 1 capsule as needed Sep, Jan, 30 days Active Zantac 150 mg Orally 2 times a day 1 tablet 12h 10 Jun, 2017 30 day(s) Active Sucralfate 1 GM Active Lyrica 100 mg Orally Three times a day 1 capsule 8h 28 days Active Pantoprazole Sodium 40 mg Orally Once a day 1 tablet 24h 30 days Active Metformin HCl 500 mg Orally Once a day (pt only takes 1/2 tab PRN gluocse over 180) 1 tablet with a meal Active Nystatin 152655 UNIT/GM Externally Twice a day 1 application to affected area 12h 14 May, 2017 Active Clonazepam 1 MG Orally 3 times a day 1 tablet 8h 28 days Active Viibryd 10 mg Orally at night 1 tablet with food 90 days Active Loratadine 10 MG Orally Once a day 1 tablet 24h 30 day(s) Active Levocetirizine Dihydrochloride 5 mg Orally Once a day 1 tablet in the evening 24h Jan, 30 days Active Triamcinolone Acetonide 0.1 % Externally Twice a day to as needed 1 application to affected area Jan, 30 days Active Fluticasone Propionate 50 MCG/ACT Nasally Once a day at hs 1 spray in each nostril Aug, Active Tramadol HCl 50 mg Orally every 12 hrs 1 tablet as needed 12h 28 days Active Lancets - test blood sugar Jan, 30 days Active Oxygen nc continuously 2 liters Active Exelon 4.6 MG/24HR APPLY ONE PATCH TO HAIR-FREE AREA ABOVE THE WAIST AND CHANGE EVERY 24 HOURS Active PredniSONE 50 mg Orally Once a day 1 tablet 24h Oct, 05 days Active Myrbetriq 25 TAKE ONE TABLET BY MOUTH DAILY DIRECTED 90 Active Lubricant Drops both eyes 4 times a day PRN dryness 1 drop Active GlipiZIDE 5 mg Orally twice a day 1 tablet 12h 30 days Active Amlodipine Besylate 10 mg Orally Once a day 1 tablet 24h 30 days Active Plavix 75 MG Orally Once a day 1 tablet 24h July, Active Fish Oil 1000 MG Orally Twice a day 1 capsule 12h Active Doxazosin Mesylate 4 MG Orally at bedtime 1 tablet Active Multivitamin Adult - Active Coricidin HBP Day/Night Cold 10-20 &15-200-2 MG Orally 2 Daytime pills Q AM at 5 am and 2 Nighttime pills at hs 8 pm 2 tablets Active RESULTS No Results PROCEDURES Procedure Date Ordered Result Body Site [facility] VISIT ESTABLISHED PATIENT Nov 27, 2017 INSTRUCTIONS MEDICATIONS ADMINISTERED No Known Medications MEDICAL (GENERAL) HISTORY Type Description Date Medical History hypertension Medical History chronic obstructive pulmonary disease (COPD)-wears 2L O2 per [place], uses [employer] for home O2 Medical History [...] [facility] 2014 Hospitalization History COPD exacerbation--[facility] 12/27/2015 [facility] 02/2016 [facility] History [facility] 11/2016 Hospitalization History COPD exacerbation - Dr Hartley Attending 12/2016 Hospitalization History Cough- [facility] [place] 04/10/2017 [facility]ization History [facility] - Possible Pneumonia 06/2017 Hospitalization History COPD hiatal hernia 08/2017
--- OUTSIDE RECORDS SUMMARY | 2018-01-05 15:47 | XMS REPORT ---
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 Active 134592993 Problem Mixed hyperlipidemia E78.2 Active 554520852 Problem Type 2 diabetes mellitus with diabetic neuropathy, without long-term current use of insulin E11.40 Active 35040432 Problem Chronic obstructive pulmonary disease, unspecified COPD type J44.9 Active 71729576 Problem Hypoxia R09.02 Active 994044413 Problem Osteoarthritis of both knees, unspecified osteoarthritis type M17.0 Active 526763275 Problem Allergic rhinitis, unspecified allergic rhinitis trigger, unspecified rhinitis seasonality J30.9 Active 10581477 Problem Chronic pain syndrome G89.4 Active 701409990 ALLERGIES No Information ENCOUNTERS Encounter Location Date Diagnosis [facility] [address] [facility] [id number] [address] Nov, Dermatitis associated with moisture L30.8 ; Seasonal allergies J30.2 and Pressure injury of buttock, stage 1, unspecified laterality L89.301 [place] [address] 51757- 5733 Nov, [place] [address] 44987- 2817 Nov, [place] [address] 29595- 9704 17 Nov, 2017 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 [place] [address] 44767- 1672 14 Nov, 2017 [place] [address] 95836- 2199 12 Nov, 2017 Unspecified urinary incontinence R32 and Unspecified contact dermatitis due to other agents L25.8 [place] [address] 79873- 8119 Nov, Chronic pain syndrome G89.4 [place] [address] 46140- 0038 10 Nov, 2017 Type 2 diabetes mellitus with diabetic neuropathy, without long-term current use of insulin E11.40 [place] [address] 19750- 0208 Nov, [place] [address] 03277- 0257 Nov, Chronic obstructive pulmonary disease, unspecified COPD type J44.9 and Gastroesophageal reflux disease without esophagitis K21.9 [place] [address] 89522- 7488 Oct, [place] [address] 75558- 1803 Oct, [place] [address] 36798- 9240 Oct, Chronic pain syndrome G89.4 [place] [address] [place] [id number] [place] [address] 24497- 8680 Oct, Community acquired bacterial pneumonia J15.9 ; Allergic rhinitis, unspecified allergic rhinitis trigger, unspecified rhinitis seasonality J30.9 ; Type 2 diabetes mellitus with diabetic neuropathy, without long-term current use of insulin E11.40 ; Chronic GERD K21.9 and Chronic obstructive pulmonary disease, unspecified COPD type J44.9 [facility] [address] [place] [id number] [place] [address] 83590- 9700 Oct, [facility] [address] [place] [id number] [place] [address] 78769- 6157 Oct, [facility] [address] 03029- 6947 Oct, [facility] [address] [place] [id number] [place] [address] 49872- 1916 Oct, [facility] [address] [place] [id number] [place] [address] 35522- 9565 Oct, Essential hypertension I10 [place] [address] [place] [id number] [place] [address] 25887- 8678 Oct, Type 2 diabetes mellitus with diabetic neuropathy, without long-term current use of insulin E11.40 ; Chronic obstructive pulmonary disease , unspecified COPD type J44.9 ; Mixed hyperlipidemia E78.2 ; Osteoarthritis of both knees, unspecified osteoarthritis type M17.0 ; 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 and Essential hypertension I10 [facility] [address] [place] [id number] [place] [address] 04084- 5311 Oct, [facility] [address] [place] [id number] [place] [address] 99340- 0691 Oct, [facility] [address] [place] [id number] [place] [address] 97665- 8123 Oct, Yeast dermatitis B37.2 [facility] [address] [place] [id number] [place] [address] 86576- 8723 Oct, Chronic pain syndrome G89.4 [facility] [address] [address] 7590 Sep, [facility] [address] [place] [id number] [place] [address] 26362- 2081 Sep, [facility] [address] [place] [id number] [place] [address] 51183- 5176 Sep, 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 and Chronic pain syndrome G89.4 [facility] [address] [place] [id number] [place] [address] 59078- 7009 Sep, COPD with acute exacerbation J44.1 [facility] [address] [place] [id number] [place] [address] 36215- 2204 Sep, [facility] [address] [place] [id number] [place] [address] 00359- 0389 Sep, [facility] [address] [place] [id number] [place] [address] 53655- 3451 Sep, Gastroesophageal reflux disease without esophagitis K21.9 [facility] [address] [place] [id number] [place] [address] 57020- 6304 Aug, [facility] [address] [place] [id number] [place] [address] 49182- 9830 Aug, [facility] [address] [address] 6959 Aug, 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 ; Hospital discharge follow-up Z09 ; Chronic obstructive pulmonary disease, unspecified COPD type J44.9 and Chronic GERD K21.9 [facility] [address] [address] 8758 Aug, Chronic pain syndrome G89.4 [facility] [address] [place] [id number] [address] 2603 Aug, [facility] [id number] [place] [address] 11767- 8563 Aug, [facility] [id number] [place] [address] 82983- 2888 Aug, Chronic pain syndrome G89.4 and 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 [facility] [address] [place] [id number] [place] [address] 42318- 4440 18 Aug, 2017 Type 2 diabetes mellitus with diabetic neuropathy, without long-term current use of insulin E11.40 ; Chronic obstructive pulmonary disease , unspecified COPD type J44.9 ; Chronic GERD K21.9 and 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 [facility] [address] [place] [id number] [place] [address] 29413- 2982 Aug, [facility] [address] [place] [id number] [place] [address] 38605- 9673 Aug, Essential hypertension I10 and Cough R05 [place] [address] [place] [id number] [place] [address] 50839- 2530 Aug, [facility] [address] [place] [id number] [place] [address] 35280- 4449 Aug, [facility] [address] [place] [id number] [place] [address] 10693- 7591 Aug, [facility] [address] [place] [id number] [place] [address] 08586- 3119 Aug, Chronic pain syndrome G89.4 [facility] [address] [place] [id number] [place] [address] 78916- 6082 Aug, [facility] [address] [place] [id number] [place] [address] 18928- 1711 Aug, [facility] [address] [place] [id number] [place] [address] 65236- 0757 July, Gastroesophageal reflux disease without esophagitis K21.9 [facility] [address] [place] [id number] [place] [address] 80701- 8106 July, [facility] [address] [place] [id number] [place] [address] 49487- 8621 July, [place] [address] [place] [id number] [place] [address] 08747- 6625 July, [place] [address] [place] [id number] [place] [address] 70917- 3251 July, Essential hypertension I10 and Chronic pain syndrome G89.4 [place] [address] [place] [id number] [place] [address] 91784- 5328 July, Gastroesophageal reflux disease without esophagitis K21.9 [place] [address] [place] [id number] [place] [address] 42599- 5050 July, 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 [place] [address] [place] [id number] [place] [address] 19278- 2029 July, Chronic obstructive pulmonary disease, unspecified COPD type J44.9 ; Nocturnal cough R05 ; 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 and Recurrent major depressive disorder, in partial 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 [place] [address] [place] [id number] [place] [address] 12500- 5193 July, [place] [address] [place] [id number] [place] [address] 67898- 7087 July, Type 2 diabetes mellitus with diabetic neuropathy, without long-term current use of insulin E11.40 [place] [address] [place] [id number] [place] [address] 23767- 7095 July, Nocturnal hypoxemia G47.34 ; Chronic obstructive pulmonary disease, unspecified COPD type J44.9 and Nocturnal cough R05 [place] [address] [place] [id number] [place] [address] 00654- 6520 July, [place] [address] [place] [id number] [place] [address] 61125- 3889 July, [place] [address] [place] [id number] [place] [address] 95458- 1384 July, [place] [address] [place] [id number] [place] [address] 24977- 6195 Jun, Chronic pain syndrome G89.4 [facility] [address] [place] [id number] [place] [address] 75984- 0526 Jun, [facility] [address] [place] [id number] [place] [address] 63399- 9294 Jun, [facility] [address] [place] [id number] [place] [address] 31056- 1391 Jun, 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 [place] [address] 17984- 4243 Jun, [place] [address] 97111- 4436 Jun, Gastroesophageal reflux disease without esophagitis K21.9 [place] [address] 61387- 0056 Jun, Allergic rhinitis, unspecified allergic rhinitis trigger, unspecified rhinitis seasonality J30.9 [place] [address] [place] [id number] [place] [address] 94727- 8684 Jun, Chronic pain syndrome G89.4 [place] [address] [place] [id number] [place] [address] 84433- 5882 May, [place] [address] [place] [id number] [place] [address] 64023- 1932 May, COPD with acute exacerbation J44.1 [place] [address] 27607- 4552 May, Type 2 diabetes mellitus with diabetic neuropathy, without long-term current use of insulin E11.40 ; COPD with acute exacerbation J44.1 ; Hypoxia R09.02 ; Chronic pain syndrome G89.4 ; Yeast dermatitis B37.2 ; 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 and 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 [place] [address] [place] [id number] [place] [address] 44397- 0649 May, [place] [address] [address] 2546 May, Chronic pain syndrome G89.4 [facility] [address] [address] 2546 May, [facility] [address] [address] 2546 May, [facility] [address] [place] [id number] [place] [address] 78972- 7336 May, Mixed hyperlipidemia E78.2 [facility] [address] [place] [id number] [place] [address] 29247- 7496 May, Chronic pain syndrome G89.4 [facility] [address] [place] [id number] [place] [address] 98681 2546 May, Anxiety F41.9 and Chronic pain syndrome G89.4 [facility] [address] [place] [id number] [address]- 4300 Mar, [facility] [id number] [place] [address] 54581- 7527 Mar, [facility] [id number] [place] [address] 82093- 1813 Mar, [facility] [address] [address]- 9889 Mar, [facility] [address] [address]- 7285 Mar, [facility] [address] [address]- 1153 Mar, Anxiety F41.9 and Chronic pain syndrome G89.4 [facility] [address] [address]- 5882 Mar, Medicare annual wellness visit, initial Z00.00 [...] Hiatal hernia K44.9 and Actinic keratosis L57.0 [facility] [address] [place] [id number] [place] [address] 06168- 5814 Mar, [facility] [address] [place] [id number] [place] [address] 25037- 0006 Mar, Chronic pain syndrome G89.4 [facility] [address] [place] [id number] [place] [address] 60631- 4159 Feb, [facility] [address] [place] [id number] [place] [address] 32987- 9597 Feb, Chronic pain syndrome G89.4 [facility] [address] [place] [id number] [place] [address] 06611- 5195 Feb, [facility] [address] [place] [id number] [place] [address] 29339- 6229 Feb, [facility] [address] [place] [id number] [place] [address] 39649- 9725 Feb, Anxiety F41.9 [facility] [address] [place] [id number] [place] [address] 03109- 7387 Feb, [facility] [address] [place] [id number] [place] [address] 09439- 8466 Feb, Chronic pain syndrome G89.4 [facility] [address] [place] [id number] [place] [address] 16788- 5097 Jan, Essential hypertension I10 [facility] [address] [place] [id number] [place] [address] 37094- 1590 Jan, Chronic pain syndrome G89.4 [facility] [address] [place] [id number] [place] [address] 06997- 2241 Jan, [place] [address] 93342- 0112 Jan, Anxiety F41.9 [place] [address] [place] [id number] [place] [address] 95193- 9416 Jan, Encounter for immunization Z23 and Community acquired pneumonia, unspecified laterality J18.9 [facility] [address] [place] [id number] [place] [address] 51725- 1932 Jan, Type 2 diabetes mellitus with diabetic neuropathy, without long-term current use of insulin E11.40 [place] [address] 01351- 5049 Dec, Anxiety F41.9 and Chronic pain syndrome G89.4 [place] [address] 98550- 5602 Dec, Chronic pain syndrome G89.4 and Essential hypertension I10 [place] [address] 45669- 9697 Dec, [place] [address] 80534- 1968 Dec, Anxiety F41.9 [place] [address] [place] [id number] [place] [address] 18494- 3263 Dec, [place] [address] [place] [id number] [place] [address] 34651- 4594 Dec, Type 2 diabetes mellitus with diabetic neuropathy, without long-term current use of insulin E11.40 ; Lactic acidosis E87.2 ; Chronic obstructive pulmonary disease, unspecified COPD type J44.9 and Encounter for immunization Z23 [facility] [address] [place] [id number] [place] [address] 98676- 3420 Dec, Chronic pain syndrome G89.4 [place] [address] 47706- 9041 Nov, [facility] [address] [address]- 9620 Nov, Chronic pain syndrome G89.4 [facility] [address] [address]- 6346 Nov, [facility] [address] [place] [address], [place] [address]- 6489 Nov, [facility] [id number] [place] [address] 96063- 2105 15 Nov, 2016 Anxiety F41.9 [facility] [address] [place] [id number] [place] [address] 70358- 6231 11 Nov, 2016 Anxiety F41.9 [facility] [id number] [place] [address] 54071- 8316 08 Nov, 2016 [facility] [address] [place] [id number] [place] [address] 98244- 0891 05 Nov, 2016 [facility] [id number] [place] [address] 91278- 0739 Nov, [facility] [address] [place] [id number] [place] [address] 85306- 6622 Oct, [facility] [id number] [place] [address] 15046- 6068 Oct, [facility] [address] [place] [address] 91180- 2816 Oct, [facility] [address] [address]- 3021 Oct, Essential hypertension I10 and Chronic pain syndrome G89.4 [facility] [id number] [place] [address] 04712- 8492 Oct, Anxiety F41.9 [facility] [address] [address]- 1942 Oct, [facility] [address] [place] [id number] [place] [address] 26270- 9777 Oct, Chronic pain syndrome G89.4 [facility] [address] [place] [id number] [place] [address] 90665 -4442 Oct, Sore throat J02.9 and Acute nasopharyngitis (common cold) J00 [facility] [address] [place] [id number] [place] [address] 80353- 4176 Sep, [facility] [address] 48811- 4724 Sep, COPD exacerbation J44.1 [facility] [address] 78833- 7027 Sep, Chronic pain syndrome G89.4 [facility] [address] [place] [id number] [place] [address] 66722- 9561 Sep, Essential hypertension I10 [facility] [address] 63092- 3138 Sep, [facility] [address] [place] [id number] [place] [address] 41997- 8853 Sep, [facility] [address] [place] [id number] [place] [address] 02690- 9361 Sep, Anxiety F41.9 [facility] [address] [place] [id number] [place] [address] 84593- 3274 Sep, Chronic pain syndrome G89.4 [facility] [address] [place] [id number] [place] [address] 23884- 3138 Sep, [facility] [address] [place] [id number] [place] [address] 59473- 6549 Aug, Acute seasonal allergic rhinitis, unspecified trigger J30.2 ; Hiatal hernia K44.9 and Chronic pain syndrome G89.4 [facility] [address] [place] [id number] [place] [address] 89471- 5117 Aug, [facility] [address] [place] [address]- 0552 Aug, [facility] [address] [place] [id number] [place] [address] 94555- 7879 Aug, Chronic obstructive pulmonary disease, unspecified COPD type J44.9 [facility] [address] [place] [id number] [place] [address] 07340- 2948 14 Aug, 2016 Anxiety F41.9 [facility] [address] [place] [id number] [place] [address] 79881- 8950 08 Aug, 2016 Chronic pain syndrome G89.4 [facility] [address] [place] [id number] [place] [address] 42588- 9893 Aug, Hiatal hernia K44.9 and Actinic keratosis L57.0 [facility] [address] [place] [id number] [place] [address] 56763- 4325 Aug, [facility] [address] [place] [id number] [place] [address] 43033- 3679 Aug, Anxiety F41.9 [facility] [address] [place] [id number] [place] [address] 89643- 1960 July, [facility] [address] [place] [id number] [place] [address] 41746- 4467 July, Hiatal hernia K44.9 [facility] [id number] [place] [address] 83889- 3703 July, [facility] [address] [place] [id number] [place] [address] 57010- 2238 July, Anxiety F41.9 and Chronic pain syndrome G89.4 [facility] [address] [place] [id number] [place] [address] 54068- 3711 July, [facility] [address] [place] [id number] [place] [address] 81961- 6929 Jun, Chronic pain syndrome G89.4 [facility] [address] [place] [id number] [place] [address] 84355- 7247 Jun, Chronic pain syndrome G89.4 [facility] [address] [address]- 8533 Jun, [facility] [address] [place] [id number] [place] [address] 28678- 4606 Jun, Anxiety F41.9 [facility] [address] [place] [id number] [place] [address] 13018- 0385 Jun, Allergic rhinitis, unspecified allergic rhinitis trigger, unspecified rhinitis seasonality J30.9 [facility] [address] [place] [id number] [place] [address] 50415- 0676 Jun, [facility] [address] [place] [id number] [place] [address] 07766- 8636 May, Chronic pain syndrome G89.4 [facility] [address] [place] [id number] [place] [address] 75694- 7183 May, [facility] [address] [place] [id number] [place] [address] 34303- 6018 May, [facility] [address] [place] [id number] [place] [address] 27054- 0591 May, Anxiety F41.9 [facility] [id number] [place] [address] 78898- 0170 May, Type 2 diabetes mellitus with diabetic [...] Anxiety F41.9 and Chronic pain syndrome G89.4 [facility] [address] [address]- 9228 May, Essential hypertension I10 ; Type 2 diabetes mellitus with diabetic neuropathy, without long-term current use of insulin E11.40 ; Mixed hyperlipidemia E78.2 ; Chronic obstructive pulmonary disease, unspecified COPD type J44.9 and Chronic GERD K21.9 [place] [address] [place] [id number] [place] [address] 71600- 4766 May, [place] [address] [place] [id number] [place] [address]- 7915 May, [place] [address] [place] 253472- 5905 May, Type 2 diabetes mellitus with diabetic neuropathy, without long-term current use of insulin E11.40 [place] [address] 86760- 8101 May, Dementia without behavioral disturbance, unspecified dementia type F03.90 [place] [address] 97792- 5207 May, Type 2 diabetes mellitus with diabetic neuropathy, without long-term current use of insulin E11.40 ; Essential hypertension I10 ; Mixed hyperlipidemia E78.2 ; Chronic obstructive pulmonary disease, unspecified COPD type J44.9 ; Chronic GERD K21.9 and Osteoarthritis of both knees, unspecified osteoarthritis type M17.0 [place] [address] [place] [id number] [place] [address] 15366- 9330 May, [place] [address] [place] [id number] [place] [address] 02575- 3906 May, [place] [address] [place] [id number] [place] [address] 96511- 0752 May, Anxiety F41.9 and Unspecified symptoms and signs involving cognitive functions and awareness R41.9 [place] [address] [place] [id number] [place] [address] 94141- 8382 May, [place] [address] [place] [id number] [place] [address] 09855- 3932 May, Type 2 diabetes mellitus with diabetic neuropathy, without long-term current use of insulin E11.40 ; Anxiety F41.9 and Chronic obstructive pulmonary disease, unspecified COPD type J44.9 [place] [address] [place] [id number] [place] [address] 04292- 4455 May, [facility] [address] [place] [id number] [place] [address] [phone]- [phone] May, [facility] [address] [place] [id number] [place] [address] [phone]- [phone] May, [place] [address] [address]- [address] May, Chronic obstructive pulmonary disease, unspecified COPD type J44.9 [place] [address] 73467- 8925 Mar, [place] [address] 60[address]- 9419 Mar, Arthritis of both knees M19.[address] [address]- 4637 Mar, Type 2 diabetes mellitus with diabetic neuropathy, without long-term current use of insulin E11.40 [place] [address] 76258- 1010 Mar, [place] [address] [place] [id number] [place] [address] [id number]- 1118 Mar, Neck pain M54.2 and Weakness generalized R53.1 [facility] [address] [place] [id number] [place] [address]95- [address]2 Mar, [facility] [address] [place] [address] [id number] [place] [address]5967- 8960 Mar, Cervicalgia M54.2 and Impacted cerumen of both ears H61.23 [facility] [address] [address] [id number] [place] [address]11- 9235 Mar, [facility] [address] [address] Mar, Type 2 diabetes mellitus with diabetic neuropathy, without long-term current use of insulin E11.40 [facility] [address] [address] 29 Feb, 2016 [facility] [address] [address] Feb, Hypoxia R09.02 [facility] [id number] [place] [address]59- 1508 Feb, [facility] [id number] [place] [address] 05479- 4398 Feb, [facility] [id number] [place] [address] 11028- 8136 Feb, [facility] [id number] [place] [address]8827- 4547 16 Feb, 2016 Type 2 diabetes mellitus with diabetic neuropathy, without long-term current use of insulin E11.40 [facility] [address] [address] 15 Feb, 2016 Osteoarthritis of both knees, unspecified osteoarthritis type M17.0 [facility] [address] [address] 27[address] Feb, [facility] [address] [address] 6[address] Feb, [facility] [address] [address] 25[address] Feb, [facility] [address] [address] Jan, [facility] [id number] [address] Jan, [facility] [address] [address] Jan, [facility] [id number] [place] [address]107- 7900 Jan, [facility] [id number] [place] [address] 63659- 6103 Jan, Tinea pedis of both feet B35.3 [facility] [address] [address]- [address] 03 Jan, 2016 Type 2 diabetes mellitus [...] seasonality J30.9 and Encounter for immunization Z23 [facility] [address] [address]- [address]483 Jan, [facility] [address] [address]- [address]267 Jan, [facility] [address] [address]- 7451 Dec, [facility] [address] [place] [address] [id number] [place] [address] 35458- 9377 Dec, [facility] [address] [address] Dec, Unspecified asthma with (acute) exacerbation J45.901 and Chronic obstructive pulmonary disease with (acute) exacerbation J44.1 [facility] [address] [address]- [address]162 Dec, Arthritis of both knees M19.90 and Acute medial meniscus tear, right, initial encounter S83.241A [facility] [address] [address]- [address]393 Dec, [facility] [address] [place] [address]- 2465 14 Dec, 2015 [facility] [address] [address] 1631 14 Dec, 2015 [facility] [address] [address] 74[address] Dec, [facility] [id number] [place] [address] 23104- 9492 Dec, History of pneumonia Z87.01 [facility] [address] [address] 8078 Dec, [facility] [id number] [place] [address] 09720- 4217 Dec, [facility] [id number] [place] [address] 02478- 8366 Dec, [facility] [id number] [place] [address] 32147- 4461 Dec, [facility] [address] [address]- 8086 Dec, [facility] [address] [address] 0892 Dec, [facility] [address] [address] 30 Nov, 2015 Cough R05 and Pneumonia due to infectious organism, unspecified laterality, unspecified part of lung J18.9 [facility] [address] [address] 6[address] Nov, [facility] [id number] [place] [address] 92144- 5357 Nov, Type 2 diabetes mellitus with diabetic [...] allergic rhinitis trigger, unspecified rhinitis seasonality J30.9 [facility] [address] [facility] [id number] [place] [address] 12 Nov, 2015 IMMUNIZATIONS No Known Immunizations SOCIAL HISTORY Never Assessed REASON FOR VISIT Refill request PLAN OF CARE VITAL SIGNS MEDICATIONS Medication Instructions Dosage Frequency Start Date End Date Duration Status Lyrica 100 mg Orally Three times a day 1 capsule 8h 28 days Active RESULTS No Results PROCEDURES No Known procedures INSTRUCTIONS MEDICATIONS ADMINISTERED No Known Medications MEDICAL (GENERAL) HISTORY Type Description Date Medical History hypertension Medical History chronic obstructive pulmonary disease (COPD)-wears 2L O2 per [place], uses [place] for home O2 Medical History Arthritis-knees and [...] History TURP 2003 Surgical History EGD Colonoscopy [facility] 06/06/2016 Hospitalization History TIA, [facility] 2014 Hospitalization History COPD exacerbation--[facility] 12/27/2015 [facility]/2016 [facility] 11/2016 Hospitalization History COPD exacerbation - Dr Hartley Attending 12/2016 Hospitalization History Cough- [facility] [place] 04/10/2017 [facility] - Possible Pneumonia 06/2017 Hospitalization History COPD hiatal hernia 08/2017
--- OUTSIDE RECORDS SUMMARY | 2018-01-05 15:47 | XMS REPORT ---
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 Active 646115908 Problem Mixed hyperlipidemia E78.2 Active 819410011 Problem Type 2 diabetes mellitus with diabetic neuropathy, without long-term current use of insulin E11.40 Active 90535624 Problem Chronic obstructive pulmonary disease, unspecified COPD type J44.9 Active 90900340 Problem Hypoxia R09.02 Active 049222608 Problem Osteoarthritis of both knees, unspecified osteoarthritis type M17.0 Active 358138198 Problem Allergic rhinitis, unspecified allergic rhinitis trigger, unspecified rhinitis seasonality J30.9 Active 26716486 Problem Chronic pain syndrome G89.4 Active 087223785 ALLERGIES No Information ENCOUNTERS Encounter Location Date Diagnosis [facility] [address] [facility] [id number] [address] Nov, Dermatitis associated with moisture L30.8 ; Seasonal allergies J30.2 and Pressure injury of buttock, stage 1, unspecified laterality L89.301 [place] [address] 49186- 3992 Nov, [place] [address] 03743- 5948 Nov, [place] [address] 99757- 4355 17 Nov, 2017 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 [place] [address] 64641- 0593 14 Nov, 2017 [place] [address] 23350- 4051 12 Nov, 2017 Unspecified urinary incontinence R32 and Unspecified contact dermatitis due to other agents L25.8 [place] [address] 98064- 2204 Nov, Chronic pain syndrome G89.4 [place] [address] 50275- 8303 10 Nov, 2017 Type 2 diabetes mellitus with diabetic neuropathy, without long-term current use of insulin E11.40 [place] [address] 15413- 8290 Nov, [place] [address] 56506- 2522 Nov, Chronic obstructive pulmonary disease, unspecified COPD type J44.9 and Gastroesophageal reflux disease without esophagitis K21.9 [place] [address] 17556- 6139 Oct, [place] [address] 23304- 6004 Oct, [place] [address] 90683- 4195 Oct, Chronic pain syndrome G89.4 [place] [address] [place] [id number] [place] [address] 99184- 7392 Oct, Community acquired bacterial pneumonia J15.9 ; Allergic rhinitis, unspecified allergic rhinitis trigger, unspecified rhinitis seasonality J30.9 ; Type 2 diabetes mellitus with diabetic neuropathy, without long-term current use of insulin E11.40 ; Chronic GERD K21.9 and Chronic obstructive pulmonary disease, unspecified COPD type J44.9 [facility] [address] [place] [id number] [place] [address] 02424- 6092 Oct, [facility] [address] [place] [id number] [place] [address] 51618- 9970 Oct, [facility] [address] 65107- 8922 Oct, [facility] [address] [place] [id number] [place] [address] 09182- 3571 Oct, [facility] [address] [id number] [place] [address] 69118- 1781 Oct, Essential hypertension I10 [place] [address] [place] [id number] [place] [address] 65130- 8593 Oct, Type 2 diabetes mellitus with diabetic neuropathy, without long-term current use of insulin E11.40 ; Chronic obstructive pulmonary disease , unspecified COPD type J44.9 ; Mixed hyperlipidemia E78.2 ; Osteoarthritis of both knees, unspecified osteoarthritis type M17.0 ; 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 and Essential hypertension I10 [facility] [address] [place] [id number] [place] [address] 94282- 5007 Oct, [facility] [address] [place] [id number] [place] [address] 93577- 0684 Oct, [facility] [address] [place] [id number] [place] [address] 18884- 9749 Oct, Yeast dermatitis B37.2 [facility] [address] [place] [id number] [place] [address] 80433- 4526 Oct, Chronic pain syndrome G89.4 [facility] [address], [place] [address] 3094 Sep, [facility] [address] [place] [id number] [place] [address] 59869- 9089 Sep, [facility] [address] [place] [id number] [place] [address] 11548- 7795 Sep, 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 and Chronic pain syndrome G89.4 [facility] [address] [place] [id number] [place] [address] 35740- 3789 Sep, COPD with acute exacerbation J44.1 [facility] [address] [place] [id number] [place] [address] 78441- 1112 Sep, [facility] [address] [place] [id number] [place] [address] 22599- 2059 Sep, [facility] [address] [id number] [place] [address] 50364- 7897 Sep, Gastroesophageal reflux disease without esophagitis K21.9 [facility] [address] [id number] [place] [address] 44040- 5039 Aug, [facility] [address] [place] [id number] [place] [address] 86406- 7836 Aug, [facility] [address], [place] [address] 9840 Aug, 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 ; Hospital discharge follow-up Z09 ; Chronic obstructive pulmonary disease, unspecified COPD type J44.9 and Chronic GERD K21.9 [facility] [address], [place] [address] 4922 Aug, Chronic pain syndrome G89.4 [facility] [address] [place] [id number] [address]- 4173 Aug, [facility] [address] [place] [address] 18527- 0129 Aug, [facility] [address] [place] [address] 12937- 3959 Aug, Chronic pain syndrome G89.4 and 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 [facility] [address] [place] [id number] [place] [address] 58403- 4733 18 Aug, 2017 Type 2 diabetes mellitus with diabetic neuropathy, without long-term current use of insulin E11.40 ; Chronic obstructive pulmonary disease , unspecified COPD type J44.9 ; Chronic GERD K21.9 and 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 [facility] [address] [place] [id number] [place] [address] 97016- 7903 Aug, [facility] [address] [place] [id number] [place] [address] 70131- 2782 Aug, Essential hypertension I10 and Cough R05 [place] [address] [place] [id number] [place] [address] 82363- 6592 Aug, [facility] [address] [place] [id number] [place] [address] 05794- 3666 Aug, [facility] [address] [place] [id number] [place] [address] 46582- 0561 Aug, [facility] [address] [place] [id number] [place] [address] 11272- 7853 Aug, Chronic pain syndrome G89.4 [facility] [address] [id number] [place] [address] 06640- 5808 Aug, [facility] [address] [place] [id number] [place] [address] 70425- 9896 Aug, [facility] [address] [id number] [place] [address] 96554- 7653 July, Gastroesophageal reflux disease without esophagitis K21.9 [facility] [address] [id number] [place] [address] 24700- 8118 July, [facility] [address] [place] [id number] [place] [address] 82157- 8179 July, [place] [address] [place] [id number] [place] [address] 57180- 0085 July, [place] [address] [place] [id number] [place] [address] 67166- 3409 July, Essential hypertension I10 and Chronic pain syndrome G89.4 [place] [address] [place] [id number] [place] [address] 71980- 7749 July, Gastroesophageal reflux disease without esophagitis K21.9 [place] [address] [place] [id number] [place] [address] 70293- 5000 July, 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 [place] [address] [place] [id number] [place] [address] 90770- 7740 July, Chronic obstructive pulmonary disease, unspecified COPD type J44.9 ; Nocturnal cough R05 ; 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 and Recurrent major depressive disorder, in partial 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 [place] [address] [place] [id number] [place] [address] 33745- 7763 July, [place] [address] [place] [id number] [place] [address] 89755- 5880 July, Type 2 diabetes mellitus with diabetic neuropathy, without long-term current use of insulin E11.40 [place] [address] [place] [id number] [place] [address] 28478- 8554 July, Nocturnal hypoxemia G47.34 ; Chronic obstructive pulmonary disease, unspecified COPD type J44.9 and Nocturnal cough R05 [place] [address] [place] [id number] [place] [address] 09899- 9558 July, [place] [address] [place] [id number] [place] [address] 53079- 4993 July, [place] [address] [place] [id number] [place] [address] 17176- 6741 July, [place] [address] [place] [id number] [place] [address] 74188- 6589 Jun, Chronic pain syndrome G89.4 [facility] [address] [place] [id number] [place] [address] 76862- 7188 Jun, [facility] [address] [place] [id number] [place] [address] 80869- 1779 Jun, [facility] [address] [place] [id number] [place] [address] 59272- 3328 Jun, 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 [place] [address] 55580- 5445 Jun, [place] [address] 74068- 8777 Jun, Gastroesophageal reflux disease without esophagitis K21.9 [place] [address] 13669- 8199 Jun, Allergic rhinitis, unspecified allergic rhinitis trigger, unspecified rhinitis seasonality J30.9 [place] [address] [place] [id number] [place] [address] 78125- 5212 Jun, Chronic pain syndrome G89.4 [place] [address] [place] [id number] [place] [address] 22412- 6287 May, [place] [address] [place] [id number] [place] [address] 81202- 1500 May, COPD with acute exacerbation J44.1 [place] [address] 37071- 5400 May, Type 2 diabetes mellitus with diabetic neuropathy, without long-term current use of insulin E11.40 ; COPD with acute exacerbation J44.1 ; Hypoxia R09.02 ; Chronic pain syndrome G89.4 ; Yeast dermatitis B37.2 ; 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 and 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 [place] [address] [place] [id number] [place] [address] 77820- 4447 May, [place] [address], [place] [address] 2546 May, Chronic pain syndrome G89.4 [facility] [address], [place] [address] 2546 May, [facility] [address], [place] [address] 2546 May, [facility] [address] [place] [id number] [place] [address] 00335- 1356 May, Mixed hyperlipidemia E78.2 [facility] [address] [place] [id number] [place] [address] 63985- 9556 May, Chronic pain syndrome G89.4 [facility] [address] [place] [id number] [place] [address] 76568 2546 May, Anxiety F41.9 and Chronic pain syndrome G89.4 [facility] [address] [id number] [address]- 5567 Mar, [facility] [id number] [place] [address] 51458- 6152 Mar, [facility] [address] [place] [address] 78310- 7589 Mar, [facility] [address], [place] [address]- 5450 Mar, [facility] [address], [place] [address]- 9619 Mar, [facility] [address], [place] [address]- 2633 Mar, Anxiety F41.9 and Chronic pain syndrome G89.4 [facility] [address], [place] [address]- 1707 Mar, Medicare annual wellness visit, initial Z00.00 [...] Hiatal hernia K44.9 and Actinic keratosis L57.0 [facility] [address] [place] [id number] [place] [address] 06643- 3276 Mar, [facility] [address] [place] [id number] [place] [address] 56209- 1014 Mar, Chronic pain syndrome G89.4 [facility] [address] [place] [id number] [place] [address] 39473- 6605 Feb, [facility] [address] [place] [id number] [place] [address] 59868- 9393 Feb, Chronic pain syndrome G89.4 [facility] [address] [place] [id number] [place] [address] 94127- 3568 Feb, [facility] [address] [place] [id number] [place] [address] 62532- 5255 Feb, [facility] [address] [place] [id number] [place] [address] 29093- 6104 Feb, Anxiety F41.9 [facility] [address] [place] [id number] [place] [address] 76902- 9629 Feb, [facility] [address] [id number] [place] [address] 62950- 4073 Feb, Chronic pain syndrome G89.4 [facility] [address] [id number] [place] [address] 46449- 0279 Jan, Essential hypertension I10 [facility] [address] [id number] [place] [address] 38791- 0418 Jan, Chronic pain syndrome G89.4 [facility] [address] [place] [id number] [place] [address] 76543- 1097 Jan, [place] [address] 91451- 9011 Jan, Anxiety F41.9 [place] [address] [place] [id number] [place] [address] 20786- 9700 Jan, Encounter for immunization Z23 and Community acquired pneumonia, unspecified laterality J18.9 [facility] [address] [place] [id number] [place] [address] 32126- 7528 Jan, Type 2 diabetes mellitus with diabetic neuropathy, without long-term current use of insulin E11.40 [place] [address] 19869- 9931 Dec, Anxiety F41.9 and Chronic pain syndrome G89.4 [place] [address] 24987- 8725 Dec, Chronic pain syndrome G89.4 and Essential hypertension I10 [place] [address] 14057- 7828 Dec, [place] [address] 15966- 9822 Dec, Anxiety F41.9 [place] [address] [place] [id number] [place] [address] 58499- 0553 Dec, [place] [address] [place] [id number] [place] [address] 95619- 3415 Dec, Type 2 diabetes mellitus with diabetic neuropathy, without long-term current use of insulin E11.40 ; Lactic acidosis E87.2 ; Chronic obstructive pulmonary disease, unspecified COPD type J44.9 and Encounter for immunization Z23 [facility] [address] [id number] [place] [address] 17412- 9234 Dec, Chronic pain syndrome G89.4 [place] [address] 40926- 0476 Nov, [facility] [address], [place] [address]- 5782 Nov, Chronic pain syndrome G89.4 [facility] [address], [place] [address]- 3946 Nov, [facility] [address] [place] [address], [place] [address]- 3664 Nov, [facility] [id number] [place] [address] 97895- 3059 15 Nov, 2016 Anxiety F41.9 [facility] [address] [place] [id number] [place] [address] 03300- 3653 11 Nov, 2016 Anxiety F41.9 [facility] [address] [place] [address] 92422- 4579 08 Nov, 2016 [facility] [address] [place] [id number] [place] [address] 49249- 9671 05 Nov, 2016 [facility] [address] [place] [address] 13273- 7454 Nov, [facility] [id number] [place] [address] 41333- 8118 Oct, [facility] [address] [place] [address] 06037- 5349 Oct, [facility] [address] [place] [address] 56299- 2814 Oct, [facility] [address], [place] [address]- 0523 Oct, Essential hypertension I10 and Chronic pain syndrome G89.4 [facility] [address] [place] [address] 76340- 2660 Oct, Anxiety F41.9 [facility] [address], [place] [address]- 1548 Oct, [facility] [id number] [place] [address] 84669- 9783 Oct, Chronic pain syndrome G89.4 [facility] [id number] [place] [address] 29667 -9669 Oct, Sore throat J02.9 and Acute nasopharyngitis (common cold) J00 [facility] [id number] [place] [address] 41065- 9405 Sep, [facility] [address] 43308- 6410 Sep, COPD exacerbation J44.1 [facility] [address] 45833- 2004 Sep, Chronic pain syndrome G89.4 [facility] [id number] [place] [address] 27082- 4335 Sep, Essential hypertension I10 [facility] [address] 19613- 4631 Sep, [facility] [id number] [place] [address] 24396- 0624 Sep, [facility] [id number] [place] [address] 93389- 5192 Sep, Anxiety F41.9 [facility] [id number] [place] [address] 10427- 2029 Sep, Chronic pain syndrome G89.4 [facility] [id number] [place] [address] 80302- 5109 Sep, [facility] [id number] [place] [address] 96251- 5300 Aug, Acute seasonal allergic rhinitis, unspecified trigger J30.2 ; Hiatal hernia K44.9 and Chronic pain syndrome G89.4 [facility] [id number] [place] [address] 74707- 2287 Aug, [facility] [address] [place] [address]- 8087 Aug, [facility] [id number] [place] [address] 79438- 3523 Aug, Chronic obstructive pulmonary disease, unspecified COPD type J44.9 [facility] [id number] [place] [address] 17825- 6352 14 Aug, 2016 Anxiety F41.9 [facility] [id number] [place] [address] 74410- 3813 08 Aug, 2016 Chronic pain syndrome G89.4 [facility] [id number] [place] [address] 51287- 9853 Aug, Hiatal hernia K44.9 and Actinic keratosis L57.0 [facility] [id number] [place] [address] 17818- 0343 Aug, [facility] [id number] [place] [address] 49023- 0859 Aug, Anxiety F41.9 [facility] [id number] [place] [address] 23194- 5068 July, [facility] [id number] [place] [address] 01237- 1031 July, Hiatal hernia K44.9 [facility] [address] [place] [address] 96783- 7684 July, [facility] [id number] [place] [address] 90986- 5279 July, Anxiety F41.9 and Chronic pain syndrome G89.4 [facility] [id number] [place] [address] 18322- 0170 July, [facility] [id number] [place] [address] 75400- 1355 Jun, Chronic pain syndrome G89.4 [facility] [id number] [place] [address] 95760- 8661 Jun, Chronic pain syndrome G89.4 [facility] [address], [place] [address]- 7814 Jun, [facility] [id number] [place] [address] 69805- 2337 Jun, Anxiety F41.9 [facility] [id number] [place] [address] 23905- 2189 Jun, Allergic rhinitis, unspecified allergic rhinitis trigger, unspecified rhinitis seasonality J30.9 [facility] [id number] [place] [address] 72764- 4738 Jun, [facility] [id number] [place] [address] 19941- 0596 May, Chronic pain syndrome G89.4 [facility] [id number] [place] [address] 16454- 0138 May, [facility] [id number] [place] [address] 05153- 3757 May, [facility] [id number] [place] [address] 63799- 6474 May, Anxiety F41.9 [facility] [id number] [place] [address] 30584- 9454 May, Type 2 diabetes mellitus with diabetic [...] Anxiety F41.9 and Chronic pain syndrome G89.4 [facility] [address], [place] [address]- 5769 May, Essential hypertension I10 ; Type 2 diabetes mellitus with diabetic neuropathy, without long-term current use of insulin E11.40 ; Mixed hyperlipidemia E78.2 ; Chronic obstructive pulmonary disease, unspecified COPD type J44.9 and Chronic GERD K21.9 [place] [id number] [place] [address] 70241- 5422 May, [place] [address] [address] [id number] [place] [address]- 5807 May, [place] [address] [place] [address]252- 8233 May, Type 2 diabetes mellitus with diabetic neuropathy, without long-term current use of insulin E11.40 [place] [address] [address] May, Dementia without behavioral disturbance, unspecified dementia type F03.90 [place] [address] [address]- [address] May, Type 2 diabetes mellitus with diabetic neuropathy, without long-term current use of insulin E11.40 ; Essential hypertension I10 ; Mixed hyperlipidemia E78.2 ; Chronic obstructive pulmonary disease, unspecified COPD type J44.9 ; Chronic GERD K21.9 and Osteoarthritis of both knees, unspecified osteoarthritis type M17.0 [place] [address] [place] [id number] [place] [phone] May, [place] [address] [place] [id number] [place] [address] [id number] May, [place] [address] [place] [id number] [place] [phone] May, Anxiety F41.9 and Unspecified symptoms and signs involving cognitive functions and awareness R41.9 [place] [address] [place] [id number] [place] [address] [phone] May, [place] [address] [place] [id number] [place] [address] [phone] May, Type 2 diabetes mellitus with diabetic neuropathy, without long-term current use of insulin E11.40 ; Anxiety F41.9 and Chronic obstructive pulmonary disease, unspecified COPD type J44.9 [place] [id number] [place] [address] 90858- 1563 May, [facility] [id number] [place] [address] 98579- 5129 May, [facility] [id number] [place] [address] 37049- 3830 May, [place] [address] [address]- [address] May, Chronic obstructive pulmonary disease, unspecified COPD type J44.9 [place] [address] 34976- 5162 Mar, [place] [address] 95564- 9682 Mar, Arthritis of both knees M19.[address] [address]- [address]244 Mar, Type 2 diabetes mellitus with diabetic neuropathy, without long-term current use of insulin E11.40 [place] [address] 71904- 6601 Mar, [place] [id number] [place] [address] 48828- 0804 Mar, Neck pain M54.2 and Weakness generalized R53.1 [place] [id number] [place] [address] 74834- 2006 Mar, [place] [id number] [place] [address] 78350- 3024 Mar, Cervicalgia M54.2 and Impacted cerumen of both ears H61.23 [place] [id number] [place] [address] 08789- 4313 Mar, [place] [address] 81595- 2615 Mar, Type 2 diabetes mellitus with diabetic neuropathy, without long-term current use of insulin E11.40 [facility] [address] [address] 29 Feb, 2016 [facility] [address] [place] [address] Feb, Hypoxia R09.02 [facility] [id number] [place] [address] 40977- 9227 Feb, [facility] [id number] [place] [address] 56062- 6119 Feb, [facility] [id number] [place] [address] 06768- 6900 Feb, [facility] [id number] [place] [address] 59208- 1884 16 Feb, 2016 Type 2 diabetes mellitus with diabetic neuropathy, without long-term current use of insulin E11.40 [facility] [address], [place] [address] 4784 15 Feb, 2016 Osteoarthritis of both knees, unspecified osteoarthritis type M17.0 [facility] [address], [place] [address] 3946 Feb, [facility] [address], [place] [address] 3557 Feb, [facility] [address], [place] [address] 2799 Feb, [facility] [address], [place] [address] 9840 Jan, [facility] [id number] [address]15 Jan, [facility] [address], [place] [address] 6243 Jan, [facility] [id number] [place] [address] 70024- 0520 Jan, [facility] [id number] [place] [address] 62672- 0768 Jan, Tinea pedis of both feet B35.3 [place] [address] 34834- 7863 03 Jan, 2016 Type 2 diabetes mellitus [...] seasonality J30.9 and Encounter for immunization Z23 [place] [address] 88580- 6326 Jan, [facility] [address] 7[address]85- 4039 Jan, [place] [address] 34513- 1174 Dec, [place] [id number] [place] [address] 84349- 5414 Dec, [facility] [address] [address] -[address] Dec, Unspecified asthma with (acute) exacerbation J45.901 and Chronic obstructive pulmonary disease with (acute) exacerbation J44.1 [place] [address] 14827- 6802 Dec, Arthritis of both knees M19.90 and Acute medial meniscus tear, right, initial encounter S83.241A [place] [address] 74003- 2279 Dec, [place] [address] [place] [address]- 2498 14 Dec, 2015 [facility] [address], [place] [address]- [address] 14 Dec, 2015 [facility] [address], [place] [address] 4709 Dec, [facility] [id number] [place] [address] 10607- 0532 Dec, History of pneumonia Z87.01 [facility] [address], [place] [address] 8566 Dec, [facility] [id number] [place] [address] 77078- 9639 Dec, [facility] [id number] [place] [address] 17960- 3306 Dec, [facility] [id number] [place] [address] 55036- 4517 Dec, [facility] [address], [place] [address]- 6648 Dec, [facility] [address], [place] [address]- 3690 Dec, [facility] [address] [place] [address]- 0073 30 Nov, 2015 Cough R05 and Pneumonia due to infectious organism, unspecified laterality, unspecified part of lung J18.9 [facility] [address], [place] [address]- 1[address] Nov, [facility] [id number] [place] [address] 33782- 1353 Nov, Type 2 diabetes mellitus with diabetic [...] allergic rhinitis trigger, unspecified rhinitis seasonality J30.9 [facility] [address] [facility] [id number] [place] [address] 12 Nov, 2015 IMMUNIZATIONS No Known Immunizations SOCIAL HISTORY Never Assessed REASON FOR VISIT FYI PLAN OF CARE VITAL SIGNS MEDICATIONS No Known Medications RESULTS No Results PROCEDURES No Known procedures INSTRUCTIONS MEDICATIONS ADMINISTERED No Known Medications MEDICAL (GENERAL) HISTORY Type Description Date Medical History hypertension Medical History chronic obstructive pulmonary disease (COPD)-wears 2L O2 per [place], uses [place] for home O2 Medical History Arthritis-knees and [...] TIA, [facility] 2014 Hospitalization History COPD exacerbation--[facility] 12/27/2015 [facility] - [facility] 02/2016 [facility] History [facility] pneumonia 11/2016 Hospitalization History COPD exacerbation - Dr Hartley Attending 12/2016 Hospitalization History Cough- [facility] [place] 04/10/2017 [facility]ization History [facility] - Possible Pneumonia 06/2017 Hospitalization History COPD hiatal hernia 08/2017
--- OUTSIDE RECORDS SUMMARY | 2018-01-05 15:48 | XMS REPORT ---
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 Name Role Phone DEBBIE RIVERA Unavailable PROBLEMS Type Condition ICD9-CM Code [id number] Code Onset Dates Condition Status SNOMED Code Problem Chronic pain syndrome G89.4 Active 345649725 Problem Gastroesophageal reflux disease without esophagitis K21.9 Active 540854581 Problem Chronic GERD K21.9 Active 236918395 Problem Unspecified urinary incontinence R32 Active 457060861 Problem Elevated transaminase level R74.0 Active 244786635 Problem 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 Active 164018141 Problem 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 Active 995623439 Problem Nocturnal hypoxemia G47.34 Active 507885839 Problem 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 Active 607775835727326 Problem Recurrent major depressive disorder, in partial 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 Active 34146802 Problem Mixed hyperlipidemia E78.2 Active 331708971 Problem Essential hypertension I10 Active 97440849 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 Active 9607965 Problem 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 Active 602465074 Problem Chronic obstructive pulmonary disease, unspecified COPD type J44.9 Active 32863875 Problem Allergic rhinitis, unspecified allergic rhinitis trigger, unspecified rhinitis seasonality J30.9 Active 61531060 Problem Anxiety F41.9 Active 42129690 Problem Type 2 diabetes mellitus with diabetic neuropathy, without long-term current use of insulin E11.40 Active 45999829 Problem Hypoxia R09.02 Active 288297203 Problem Osteoarthritis of both knees, unspecified osteoarthritis type M17.0 Active 821737411 ALLERGIES No Information ENCOUNTERS Encounter Location Date Diagnosis [facility] [id number] [address] Nov, [facility] [id number] [place] [address] 54105- 6705 25 Nov, 2017 [place] [id number] [place] [address] 52505- 8362 17 Nov, 2017 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 [place] [id number] [place] [address] 99932- 3037 14 Nov, 2017 [place] [id number] [place] [address] 27639- 8919 12 Nov, 2017 Unspecified urinary incontinence R32 and Unspecified contact dermatitis due to other agents L25.8 [place] [id number] [place] [address] 74856- 6445 11 Nov, 2017 Chronic pain syndrome G89.4 [place] [id number] [place] [address] 48358- 1393 10 Nov, 2017 Type 2 diabetes mellitus with diabetic neuropathy, without long-term current use of insulin E11.40 [place] [id number] [place] [address] 36739- 3097 Nov, [place] [id number] [place] [address] 28444- 3945 Nov, Chronic obstructive pulmonary disease, unspecified COPD type J44.9 and Gastroesophageal reflux disease without esophagitis K21.9 [place] [id number] [place] [address] 99987- 8114 Oct, [place] [id number] [place] [address] 47456- 1321 Oct, [place] [id number] [place] [address] 72845- 6809 Oct, Chronic pain syndrome G89.4 [place] [id number] [place] [address] 50696- 8201 Oct, Community acquired bacterial pneumonia J15.9 ; Allergic rhinitis, unspecified allergic rhinitis trigger, unspecified rhinitis seasonality J30.9 ; Type 2 diabetes mellitus with diabetic neuropathy, without long-term current use of insulin E11.40 ; Chronic GERD K21.9 and Chronic obstructive pulmonary disease, unspecified COPD type J44.9 [facility] [id number] [place] [address] 20127- 3821 Oct, [facility] [id number] [place] [address] 19774- 0669 Oct, [facility] [id number] [place] [address] 62005- 9751 Oct, [facility] [id number] [place] [address] 89920- 0404 Oct, [facility] [id number] [place] [address] 02558- 8654 Oct, Essential hypertension I10 [facility] [id number] [place] [address] 44386- 8720 Oct, Type 2 diabetes mellitus with diabetic neuropathy, without long-term current use of insulin E11.40 ; Chronic obstructive pulmonary disease , unspecified COPD type J44.9 ; Mixed hyperlipidemia E78.2 ; Osteoarthritis of both knees, unspecified osteoarthritis type M17.0 ; 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 and Essential hypertension I10 [facility] [id number] [place] [address] 83824- 2339 Oct, [facility] [id number] [place] [address] 46677- 2944 Oct, [facility] [id number] [place] [address] 83042- 0053 Oct, Yeast dermatitis B37.2 [facility] [id number] [place] [address] 28012- 4830 Oct, Chronic pain syndrome G89.4 [facility] [id number] [place] [address] 39063- 3324 Sep, [facility] [id number] [place] [address] 47309- 7500 Sep, [facility] [address] [place] [address]- 3654 Sep, 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 and Chronic pain syndrome G89.4 [facility] [id number] [address] 8622 Sep, COPD with acute exacerbation J44.1 [facility] [address] [address] 5692 Sep, [facility] [id number] [place] [address] 99993- 6406 Sep, [facility] [id number] [place] [address] 50686- 2434 Sep, Gastroesophageal reflux disease without esophagitis K21.9 [facility] [address] [address]- 4445 Aug, [facility] [id number] [place] [address] 03137- 0955 Aug, [facility] [address] [address] 0428 Aug, 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 ; Hospital discharge follow-up Z09 ; Chronic obstructive pulmonary disease, unspecified COPD type J44.9 and Chronic GERD K21.9 [facility] [address] [address] 3915 Aug, Chronic pain syndrome G89.4 [facility] [address] [address] 7954 Aug, [facility] [address], [place] [address] 3429 Aug, [facility] [address] [place] [address] 25350- 7063 Aug, Chronic pain syndrome G89.4 and 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 [facility] [address] [address] 2456 Aug, Type 2 diabetes mellitus with diabetic neuropathy, without long-term current use of insulin E11.40 ; Chronic obstructive pulmonary disease , unspecified COPD type J44.9 ; Chronic GERD K21.9 and 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 [facility] [id number] [place] [address] 31965- 8207 Aug, [facility] [address] 52015- 6418 Aug, Essential hypertension I10 and Cough R05 [facility] [id number] [place] [address] 98556- 3456 Aug, [facility] [address] 46111- 3419 Aug, [facility] [id number] [place] [address] 21558- 9603 Aug, [facility] [address] 85806- 0928 Aug, Chronic pain syndrome G89.4 [facility] [id number] [place] [address] 54191- 2594 Aug, [facility] [id number] [place] [address] 38833- 0618 Aug, [facility] [id number] [place] [address] 40575- 9455 July, Gastroesophageal reflux disease without esophagitis K21.9 [facility] [id number] [place] [address] 78231- 5004 July, [facility] [id number] [place] [address] 19994- 0253 July, [facility] [id number] [place] [address] 43785- 7423 July, [facility] [id number] [place] [address] 98020- 1488 July, Essential hypertension I10 and Chronic pain syndrome G89.4 [place] [id number] [place] [address] 09410- 4803 July, Gastroesophageal reflux disease without esophagitis K21.9 [facility] [id number] [place] [address] 15735- 3843 July, 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 [place] [address] 67050- 5009 July, Chronic obstructive pulmonary disease, unspecified COPD type J44.9 ; Nocturnal cough R05 ; 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 and Recurrent major depressive disorder, in partial 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 [place] [address] 39853- 9926 July, [place] [address] 76092- 1302 July, Type 2 diabetes mellitus with diabetic neuropathy, without long-term current use of insulin E11.40 [place] [id number] [place] [address] 57743- 3738 July, Nocturnal hypoxemia G47.34 ; Chronic obstructive pulmonary disease, unspecified COPD type J44.9 and Nocturnal cough R05 [place] [id number] [place] [address] 62672- 8607 July, [place] [id number] [place] [address] 13907- 5214 July, [place] [id number] [place] [address] 71625- 6927 July, [place] [id number] [place] [address] 08337- 8826 Jun, Chronic pain syndrome G89.4 [place] [id number] [place] [address] 88236- 8512 Jun, [place] [address] 56958- 3611 Jun, [place] [id number] [place] [address] 82623- 5726 Jun, 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 [place] [id number] [place] [address] 80330- 9338 Jun, [facility] [id number] [place] [address] 96457- 1165 Jun, Gastroesophageal reflux disease without esophagitis K21.9 [facility] [id number] [place] [address] 50056- 1740 Jun, Allergic rhinitis, unspecified allergic rhinitis trigger, unspecified rhinitis seasonality J30.9 [place] [id number] [place] [address] 33846- 4372 Jun, Chronic pain syndrome G89.4 [place] [id number] [place] [address] 88736- 7368 May, [place] [id number] [place] [address] 75919- 3617 May, COPD with acute exacerbation J44.1 [place] [address] 30356- 0432 14 May, 2017 Type 2 diabetes mellitus with diabetic neuropathy, without long-term current use of insulin E11.40 ; COPD with acute exacerbation J44.1 ; Hypoxia R09.02 ; Chronic pain syndrome G89.4 ; Yeast dermatitis B37.2 ; 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 and 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 [place] [id number] [place] [address] 05109- 3585 May, [place] [id number] [place] [address] 03100- 8942 May, Chronic pain syndrome G89.4 [place] [id number] [place] [address] 21278- 6240 May, [place] [address] [place] [address]- 4391 May, [facility] [address] [address]- 2380 May, Mixed hyperlipidemia E78.2 [facility] [address], [place] [address]- 8781 May, Chronic pain syndrome G89.4 [facility] [address] [place] [address] 21879- 1188 May, Anxiety F41.9 and Chronic pain syndrome G89.4 [facility] [address] [place] [address] 96198- 6978 Mar, [facility] [address] [place] [address] 43935- 3605 Mar, [facility] [address] [place] [address] 44153- 1481 Mar, [facility] [address] [place] [address] 76482- 9927 Mar, [facility] [address] [address]- 3780 Mar, [facility] [address] [address]- 1686 Mar, Anxiety F41.9 and Chronic pain syndrome G89.4 [facility] [address] [address]- 6885 Mar, Medicare annual wellness visit, initial Z00.00 [...] L57.0 [facility] [id number] [place] [address] 82368 2546 Mar, [facility] [id number] [place] [address] 13638 2546 Mar, Chronic pain syndrome G89.4 [facility] [id number] [place] [address] 66284 2546 Feb, [facility] [id number] [place] [address] 41588 2546 Feb, Chronic pain syndrome G89.4 [facility] [id number] [place] [address] 80550 2546 Feb, [facility] [id number] [place] [address] 63212- 6096 Feb, [facility] [id number] [place] [address] 33623 2548 Feb, Anxiety F41.9 [facility] [id number] [place] [address] 05404 2546 Feb, [facility] [id number] [place] [address] 24800 2546 Feb, Chronic pain syndrome G89.4 [facility] [id number] [place] [address] 03905 2546 Jan, Essential hypertension I10 [facility] [id number] [place] [address] 61865 2547 Jan, Chronic pain syndrome G89.4 [facility] [id number] [place] [address] 44401 2546 Jan, [facility] [id number] [place] [address] 88305 2546 Jan, Anxiety F41.9 [facility] [id number] [place] [address] 08471- 0645 Jan, Encounter for immunization Z23 and Community acquired pneumonia, unspecified laterality J18.9 [place] [address] 59065- 1444 Jan, Type 2 diabetes mellitus with diabetic neuropathy, without long-term current use of insulin E11.40 [place] [address] 20098- 9034 Dec, Anxiety F41.9 and Chronic pain syndrome G89.4 [place] [address] 21852- 9883 Dec, Chronic pain syndrome G89.4 and Essential hypertension I10 [place] [address] 38977- 8764 Dec, [place] [address] 84363- 7196 Dec, Anxiety F41.9 [place] [address] 34202- 7907 Dec, [place] [address] 07783- 4845 Dec, Type 2 diabetes mellitus with diabetic neuropathy, without long-term current use of insulin E11.40 ; Lactic acidosis E87.2 ; Chronic obstructive pulmonary disease, unspecified COPD type J44.9 and Encounter for immunization Z23 [place] [id number] [place] [address] 95639- 4803 Dec, Chronic pain syndrome G89.4 [place] [address] 71308- 1175 Nov, [place] [address] 75536- 8630 Nov, Chronic pain syndrome G89.4 [place] [address] 37563- 7314 Nov, [facility] [address] [facility] [id number] [address]- 0150 Nov, [facility] [address] [place] [address] 22081- 0837 Nov, Anxiety F41.9 [facility] [address] [address]- 1851 Nov, Anxiety F41.9 [facility] [id number] [place] [address] 50723- 7540 Nov, [facility] [address] [place] [address] 97022- 0191 Nov, [facility] [address] [place] [address] 72030- 3338 Nov, [facility] [address] [place] [address] 94426- 3189 Oct, [facility] [id number] [place] [address] 20866- 1706 Oct, [facility] [id number] [place] [address] 15278- 6524 Oct, [facility] [address] [address]- 9143 Oct, Essential hypertension I10 and Chronic pain syndrome G89.4 [facility] [id number] [place] [address] 87090- 9049 Oct, Anxiety F41.9 [facility] [address], [place] [address]- 5991 Oct, [facility] [address], [place] [address]- 5616 Oct, Chronic pain syndrome G89.4 [facility] [address] [address] -3163 Oct, Sore throat J02.9 and Acute nasopharyngitis (common cold) J00 [facility] [address] [address]- 0366 Sep, [facility] [id number] [place] [address] 59370- 1623 Sep, COPD exacerbation J44.1 [facility] [id number] [place] [address] 14100- 9363 Sep, Chronic pain syndrome G89.4 [facility] [id number] [place] [address] 05035- 1547 Sep, Essential hypertension I10 [facility] [id number] [place] [address] 49071- 3870 Sep, [facility] [id number] [place] [address] 90882- 1081 Sep, [facility] [id number] [place] [address] 00652- 0856 Sep, Anxiety F41.9 [facility] [id number] [place] [address] 93651- 6061 Sep, Chronic pain syndrome G89.4 [facility] [id number] [place] [address] 15710- 8189 Sep, [facility] [id number] [place] [address] 78431- 0659 Aug, Acute seasonal allergic rhinitis, unspecified trigger J30.2 ; Hiatal hernia K44.9 and Chronic pain syndrome G89.4 [facility] [address] [place] [address] 49462- 6740 Aug, [facility] [id number] [place] [address] 49117- 9386 Aug, [facility] [id number] [place] [address] 61496- 6985 Aug, Chronic obstructive pulmonary disease, unspecified COPD type J44.9 [facility] [address] [place] [address]- 9942 14 Aug, 2016 Anxiety F41.9 [facility] [id number] [place] [address] 60245- 1388 08 Aug, 2016 Chronic pain syndrome G89.4 [facility] [id number] [place] [address] 23226- 5160 07 Aug, 2016 Hiatal hernia K44.9 and Actinic keratosis L57.0 [facility] [id number] [place] [address] 73492- 4228 07 Aug, 2016 [facility] [id number] [place] [address] 75340- 5494 Aug, Anxiety F41.9 [facility] [id number] [place] [address] 88874- 1088 July, [facility] [id number] [place] [address] 35938- 0896 July, Hiatal hernia K44.9 [facility] [id number] [place] [address] 72032- 9382 July, [facility] [id number] [place] [address] 24258- 1566 July, Anxiety F41.9 and Chronic pain syndrome G89.4 [facility] [id number] [place] [address] 54157- 0798 July, [facility] [id number] [place] [address] 13729- 9437 Jun, Chronic pain syndrome G89.4 [facility] [id number] [place] [address] 72748- 8453 Jun, Chronic pain syndrome G89.4 [facility] [id number] [place] [address] 26561- 1211 Jun, [facility] [id number] [place] [address] [phone]- 9104 Jun, Anxiety F41.9 [facility] [id number] [place] [address] [phone]- [phone] Jun, Allergic rhinitis, unspecified allergic rhinitis trigger, unspecified rhinitis seasonality J30.9 [facility] [id number] [place] [address] [phone] Jun, [place] [id number] [place] [address] [phone]- [phone] May, Chronic pain syndrome G89.4 [place] [facility] [id number] [place] [address] [phone] May, [place] [id number] [place] [address] [phone]- 2209 May, [place] [id number] [place] [address] [phone]- 4852 May, Anxiety F41.9 [place] [facility] [id number] [place] [address] [phone]- 0721 May, Type 2 diabetes mellitus with diabetic [...] Anxiety F41.9 and Chronic pain syndrome G89.4 [place] [id number] [place] [address] 61711- [phone] May, Essential hypertension I10 ; Type 2 diabetes mellitus with diabetic neuropathy, without long-term current use of insulin E11.40 ; Mixed hyperlipidemia E78.2 ; Chronic obstructive pulmonary disease, unspecified COPD type J44.9 and Chronic GERD K21.9 [place] [address] [address] May, [place] [address] [place] [id number] [place] [address] 37577- 4740 May, [place] [id number] [place] [address] 61025- 5200 May, Type 2 diabetes mellitus with diabetic neuropathy, without long-term current use of insulin E11.40 [place] [address] [place] [id number] [place] [address] 80545- 8331 May, Dementia without behavioral disturbance, unspecified dementia type F03.90 [place] [address] [place] [id number] [place] [address] 94661- 6462 May, Type 2 diabetes mellitus with diabetic neuropathy, without long-term current use of insulin E11.40 ; Essential hypertension I10 ; Mixed hyperlipidemia E78.2 ; Chronic obstructive pulmonary disease, unspecified COPD type J44.9 ; Chronic GERD K21.9 and Osteoarthritis of both knees, unspecified osteoarthritis type M17.0 [place] [address] [place] [id number] [place] [address] 77972- 4828 May, [place] [address] [place] [id number] [place] [address] 70995- 5130 May, [place] [address] [place] [id number] [place] [address] 06905- 1343 May, Anxiety F41.9 and Unspecified symptoms and signs involving cognitive functions and awareness R41.9 [place] [address] [place] [id number] [place] [address] 17801- 0742 May, [place] [address] [place] [id number] [place] [address] 49866- 2539 May, Type 2 diabetes mellitus with diabetic neuropathy, without long-term current use of insulin E11.40 ; Anxiety F41.9 and Chronic obstructive pulmonary disease, unspecified COPD type J44.9 [place] [id number] [place] [address] 38787- 5260 May, [place] [address] [place] [id number] [place] [address] 43310- 5358 May, [place] [address] 72896- 3518 May, [place] [address] 93327- 4206 May, Chronic obstructive pulmonary disease, unspecified COPD type J44.9 [place] [address] 49963- 4958 Mar, [place] [address] 67166- 5065 Mar, Arthritis of both knees M19.90 [place] [address] 07159- 3327 Mar, Type 2 diabetes mellitus with diabetic neuropathy, without long-term current use of insulin E11.40 [place] [address] 61323- 9655 Mar, [place] [address] 59832- 1363 Mar, Neck pain M54.2 and Weakness generalized R53.1 [place] [address] 66958- 6707 Mar, [place] [address] 91531- 3061 Mar, Cervicalgia M54.2 and Impacted cerumen of both ears H61.23 [place] [address] 98627- 9503 Mar, [place] [address] 03849- 6725 Mar, Type 2 diabetes mellitus with diabetic neuropathy, without long-term current use of insulin E11.40 [place] [address] [place] [id number] [place] [address] 76030- 6661 Feb, [place] [address] 07546- 0260 Feb, Hypoxia R09.02 [facility] [address] [place] [id number] [place] [address] 28965- 1240 Feb, [facility] [address] [place] [id number] [place] [address] 49847- 9452 Feb, [facility] [address] [place] [id number] [place] [address] 53542- 3577 Feb, [facility] [address] [place] [id number] [place] [address] 31928- 0965 16 Feb, 2016 Type 2 diabetes mellitus with diabetic neuropathy, without long-term current use of insulin E11.40 [facility] [address] [place] [id number] [place] [address] 01020- 7350 15 Feb, 2016 Osteoarthritis of both knees, unspecified osteoarthritis type M17.0 [facility] [address] [place] [id number] [place] [address] 94187- 2583 14 Feb, 2016 [facility] [address] [place] [id number] [place] [address] 36233- 9888 12 Feb, 2016 [facility] [address] [place] [id number] [place] [address] 52237- 7360 09 Feb, 2016 [facility] [address] [place] [id number] [place] [address] 10804- 2150 15 Jan, 2016 [facility] [id number] [place] [address] 42462- 5636 15 Jan, 2016 [facility] [address] [place] [id number] [place] [address] 78473- 8920 14 Jan, 2016 [facility] [id number] [place] [address] 76802- 1402 14 Jan, 2016 [facility] [address] [place] [id number] [place] [address] 67717- 1107 10 Jan, 2016 Tinea pedis of both feet B35.3 [facility] [address] [place] [id number] [place] [address] 99634- 4016 Jan, Type 2 diabetes mellitus with diabetic [...] seasonality J30.9 and Encounter for immunization Z23 [facility] [address] 04189- 8724 Jan, [place] [address] 17240- 9021 Jan, [place] [address] 67517- 4747 Dec, [facility] [address] 90469- 0862 Dec, [facility] [address] [place] [id number] [place] [address] 45606 -0538 Dec, Unspecified asthma with (acute) exacerbation J45.901 and Chronic obstructive pulmonary disease with (acute) exacerbation J44.1 [place] [address] [place] [id number] [place] [address] 03403- 9242 Dec, Arthritis of both knees M19.90 and Acute medial meniscus tear, right, initial encounter S83.241A [place] [address] [place] [id number] [place] [address] 17230- 2044 Dec, [place] [address] 56617- 8580 Dec, [facility] [address] [place] [id number] [place] [address] 15059- 1666 Dec, [facility] [address] 26403- 5499 Dec, [facility] [address] [address] 5673 Dec, History of pneumonia Z87.01 [place] [id number] [place] [address] 39251- 1058 Dec, [facility] [address] [place] [id number] [place] [address] 35180- 3340 Dec, [place] [address] [place] [id number] [place] [address] 59937- 6160 Dec, [place] [address] [place] [id number] [place] [address] 46169- 4595 Dec, [place] [address] [place] [id number] [place] [address] 06690- 5252 Dec, [place] [address] [place] [id number] [place] [address] 67498- 6949 Dec, [place] [address] [place] [id number] [place] [address] 38259- 3064 30 Nov, 2015 Cough R05 and Pneumonia due to infectious organism, unspecified laterality, unspecified part of lung J18.9 [place] [id number] [place] [address] 29225- 0987 Nov, [place] [id number] [place] [address] 79604- 6907 Nov, Type 2 diabetes mellitus with diabetic [...] allergic rhinitis trigger, unspecified rhinitis seasonality J30.9 [place] [address] [facility] [id number] [place] [address]- 8497 12 Nov, 2015 IMMUNIZATIONS No Known Immunizations SOCIAL HISTORY Never Assessed REASON FOR VISIT Refill request PLAN OF CARE VITAL SIGNS MEDICATIONS Unknown Medications RESULTS No Results PROCEDURES No Known procedures INSTRUCTIONS MEDICATIONS ADMINISTERED No Known Medications MEDICAL (GENERAL) HISTORY Type Description Date Medical History hypertension Medical History chronic obstructive pulmonary disease (COPD)-wears 2L O2 per [place], uses [place] for home O2 Medical History Arthritis-knees and [...] TIA, Via [facility] 2014 Hospitalization History COPD exacerbation--[facility] 12/27/2015 [facility] - [facility] 02/2016 [facility] History [facility] pneumonia 11/2016 Hospitalization History COPD exacerbation - Dr Hartley Attending 12/2016 Hospitalization History Cough- [facility] 04/10/2017 [facility] - Possible Pneumonia 06/2017 Hospitalization History COPD hiatal hernia 08/2017
--- OUTSIDE RECORDS SUMMARY | 2018-01-05 15:49 | XMS REPORT ---
Author Author DEBBIE RIVERA Organization [facility] Address [address] [place] [address] Care Team Providers Care Technical Implementation Lead Name Role Phone DEBBIE RIVERA Unavailable PROBLEMS Type Condition ICD9-CM Code QQZ42-BN Code Onset Dates Condition Status SNOMED Code Problem Chronic pain syndrome G89.4 Active 405161191 Problem Gastroesophageal reflux disease without esophagitis K21.9 Active 129739246 Problem Chronic GERD K21.9 Active 758586559 Problem Unspecified urinary incontinence R32 Active 138184259 Problem Elevated transaminase level R74.0 Active 618421257 Problem 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 Active 253243957 Problem 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 Active 752771128 Problem Nocturnal hypoxemia G47.34 Active 873519960 Problem 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 Active 333862306566258 Problem Recurrent major depressive disorder, in partial 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 Active 74737803 Problem Mixed hyperlipidemia E78.2 Active 986358972 Problem Essential hypertension I10 Active 67965302 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 Active 8116807 Problem 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 Active 539180667 Problem Chronic obstructive pulmonary disease, unspecified COPD type J44.9 Active 72687894 Problem Allergic rhinitis, unspecified allergic rhinitis trigger, unspecified rhinitis seasonality J30.9 Active 92200940 Problem Anxiety F41.9 Active 38620897 Problem Type 2 diabetes mellitus with diabetic neuropathy, without long-term current use of insulin E11.40 Active 97284559 Problem Hypoxia R09.02 Active 821168727 Problem Osteoarthritis of both knees, unspecified osteoarthritis type M17.0 Active 751924491 ALLERGIES No Information ENCOUNTERS Encounter Location Date Diagnosis [facility] [id number] [address] Nov, [facility] [id number] [place] [address] 04367- 3602 25 Nov, 2017 [id number] [place] [address] 78962- 6384 17 Nov, 2017 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 [place] [place] [id number] [place] [address] 54971- 1531 14 Nov, 2017 [place] [id number] [place] [address] 56309- 6465 12 Nov, 2017 Unspecified urinary incontinence R32 and Unspecified contact dermatitis due to other agents L25.8 [place] [id number] [place] [address] 73314- 3074 11 Nov, 2017 Chronic pain syndrome G89.4 [place] [id number] [place] [address] 54635- 5374 10 Nov, 2017 Type 2 diabetes mellitus with diabetic neuropathy, without long-term current use of insulin E11.40 [place] [id number] [place] [address] 89484- 1048 Nov, [place] [id number] [place] [address] 92877- 0625 Nov, Chronic obstructive pulmonary disease, unspecified COPD type J44.9 and Gastroesophageal reflux disease without esophagitis K21.9 [place] [id number] [place] [address] 62860- 9060 Oct, [place] [id number] [place] [address] 05504- 2975 Oct, [place] [id number] [place] [address] 85123- 0304 Oct, Chronic pain syndrome G89.4 [place] [id number] [place] [address] 49225- 6805 Oct, Community acquired bacterial pneumonia J15.9 ; Allergic rhinitis, unspecified allergic rhinitis trigger, unspecified rhinitis seasonality J30.9 ; Type 2 diabetes mellitus with diabetic neuropathy, without long-term current use of insulin E11.40 ; Chronic GERD K21.9 and Chronic obstructive pulmonary disease, unspecified COPD type J44.9 [facility] [id number] [place] [address] 23753- 4727 Oct, [facility] [id number] [place] [address] 07188- 7734 Oct, [facility] [id number] [place] [address] 60726- 6834 Oct, [facility] [id number] [place] [address] 35695- 5965 Oct, [facility] [id number] [place] [address] 59978- 9274 Oct, Essential hypertension I10 [facility] [id number] [place] [address] 08331- 8884 Oct, Type 2 diabetes mellitus with diabetic neuropathy, without long-term current use of insulin E11.40 ; Chronic obstructive pulmonary disease , unspecified COPD type J44.9 ; Mixed hyperlipidemia E78.2 ; Osteoarthritis of both knees, unspecified osteoarthritis type M17.0 ; 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 and Essential hypertension I10 [facility] [id number] [place] [address] 78638- 7439 Oct, [facility] [id number] [place] [address] 94387- 8328 Oct, [facility] [id number] [place] [address] 19500- 1567 Oct, Yeast dermatitis B37.2 [facility] [id number] [place] [address] 26501- 9201 Oct, Chronic pain syndrome G89.4 [facility] [id number] [place] [address] 04841- 3414 Sep, [facility] [id number] [place] [address] 63026- 5383 Sep, [facility] [address] [place] [address]- 7606 Sep, 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 and Chronic pain syndrome G89.4 [facility] [id number] [address] 3634 Sep, COPD with acute exacerbation J44.1 [facility] [address] [address] 8358 Sep, [facility] [id number] [place] [address] 20635- 5544 Sep, [facility] [id number] [place] [address] 40870- 3263 Sep, Gastroesophageal reflux disease without esophagitis K21.9 [facility] [address], [place] [address] 3330 Aug, [facility] [id number] [place] [address] 59167- 5297 Aug, [facility] [address], [place] [address] 1592 Aug, 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 ; Hospital discharge follow-up Z09 ; Chronic obstructive pulmonary disease, unspecified COPD type J44.9 and Chronic GERD K21.9 [facility] [address], [place] [address] 7006 Aug, Chronic pain syndrome G89.4 [facility] [address], [place] [address]- 4182 Aug, [facility] [address], [place] [address]- 9380 Aug, [facility] [id number] [place] [address] 94863- 4106 Aug, Chronic pain syndrome G89.4 and 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 [facility] [address], [place] [address] 4352 Aug, Type 2 diabetes mellitus with diabetic neuropathy, without long-term current use of insulin E11.40 ; Chronic obstructive pulmonary disease , unspecified COPD type J44.9 ; Chronic GERD K21.9 and 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 [facility] [id number] [place] [address] 37945- 4754 Aug, [facility] [address] 47294- 9621 Aug, Essential hypertension I10 and Cough R05 [facility] [id number] [place] [address] 90971- 0467 Aug, [facility] [address] 85848- 3178 Aug, [facility] [id number] [place] [address] 05169- 4273 Aug, [facility] [address] 83228- 7169 Aug, Chronic pain syndrome G89.4 [facility] [id number] [place] [address] 10617- 0366 Aug, [facility] [id number] [place] [address] 80935- 0989 Aug, [facility] [id number] [place] [address] 52572- 8449 July, Gastroesophageal reflux disease without esophagitis K21.9 [facility] [id number] [place] [address] 28074- 3896 July, [facility] [id number] [place] [address] 37912- 6824 July, [facility] [id number] [place] [address] 34784- 4009 July, [facility] [id number] [place] [address] 59085- 5881 July, Essential hypertension I10 and Chronic pain syndrome G89.4 [place] [id number] [place] [address] 71314- 4088 July, Gastroesophageal reflux disease without esophagitis K21.9 [facility] [id number] [place] [address] 32989- 9305 July, 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 [place] [address] 01139- 5662 July, Chronic obstructive pulmonary disease, unspecified COPD type J44.9 ; Nocturnal cough R05 ; 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 and Recurrent major depressive disorder, in partial 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 [place] [address] 08111- 3534 July, [place] [address] 41951- 7644 July, Type 2 diabetes mellitus with diabetic neuropathy, without long-term current use of insulin E11.40 [place] [id number] [place] [address] 92607- 8995 July, Nocturnal hypoxemia G47.34 ; Chronic obstructive pulmonary disease, unspecified COPD type J44.9 and Nocturnal cough R05 [address] [id number] [place] [address] 44195- 1141 July, [place] [id number] [place] [address] 58120- 3205 July, [place] [id number] [place] [address] 66216- 4735 July, [place] [id number] [place] [address] 71338- 9150 Jun, Chronic pain syndrome G89.4 [address] [id number] [place] [address] 22937- 3764 Jun, [place] [address] 99280- 8896 Jun, [place] [id number] [place] [address] 53687- 7864 Jun, 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 [place] [id number] [place] [address] 03014- 9641 Jun, [facility] [id number] [place] [address] 35312- 5327 Jun, Gastroesophageal reflux disease without esophagitis K21.9 [facility] [id number] [place] [address] 92548- 6020 Jun, Allergic rhinitis, unspecified allergic rhinitis trigger, unspecified rhinitis seasonality J30.9 [place] [id number] [place] [address] 59673- 9817 Jun, Chronic pain syndrome G89.4 [place] [id number] [place] [address] 38014- 7768 May, [place] [id number] [place] [address] 89441- 2258 May, COPD with acute exacerbation J44.1 [address] [address] 72472- 7082 14 May, 2017 Type 2 diabetes mellitus with diabetic neuropathy, without long-term current use of insulin E11.40 ; COPD with acute exacerbation J44.1 ; Hypoxia R09.02 ; Chronic pain syndrome G89.4 ; Yeast dermatitis B37.2 ; Alzheimers disease with early onset G30.0 and 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 [address] [id number] [place] [address] 27102- 6944 May, [place] [id number] [place] [address] 61073- 9921 May, Chronic pain syndrome G89.4 [address] [id number] [place] [address] 38030- 1038 May, [place] [address] [place] [address]- 2882 May, [facility] [address], [place] [address]- 7755 May, Mixed hyperlipidemia E78.2 [facility] [address], [place] [address]- 9611 May, Chronic pain syndrome G89.4 [facility] [id number] [place] [address] 19643- 4072 May, Anxiety F41.9 and Chronic pain syndrome G89.4 [facility] [id number] [place] [address] 32629- 3442 Mar, [facility] [address] [place] [address] 63436- 1452 Mar, [facility] [address] [place] [address] 84661- 9944 Mar, [facility] [address] [place] [address] 83900- 1608 Mar, [facility] [address], [place] [address]- 5918 Mar, [facility] [address], [place] [address]- 2311 Mar, Anxiety F41.9 and Chronic pain syndrome G89.4 [facility] [address], [place] [address]- 3877 Mar, Medicare annual wellness visit, initial Z00.00 [...] Hiatal hernia K44.9 and Actinic keratosis L57.0 [facility] [id number] [place] [address] 33277 2546 Mar, [facility] [id number] [place] [address] 83961 2546 Mar, Chronic pain syndrome G89.4 [facility] [id number] [place] [address] 84616 2546 Feb, [facility] [id number] [place] [address] 12570 2546 Feb, Chronic pain syndrome G89.4 [facility] [id number] [place] [address] 28690 2546 Feb, [facility] [id number] [place] [address] 45475- 8356 Feb, [facility] [id number] [place] [address] 45866 2542 Feb, Anxiety F41.9 [facility] [id number] [place] [address] 64872 2546 Feb, [facility] [id number] [place] [address] 67356 2546 Feb, Chronic pain syndrome G89.4 [facility] [id number] [place] [address] 56125 2546 Jan, Essential hypertension I10 [facility] [id number] [place] [address] 83136 2548 Jan, Chronic pain syndrome G89.4 [facility] [id number] [place] [address] 23019 2546 Jan, [facility] [id number] [place] [address] 48501 2546 Jan, Anxiety F41.9 [facility] [id number] [place] [address] 77518- 2665 Jan, Encounter for immunization Z23 and Community acquired pneumonia, unspecified laterality J18.9 [place] [address] 27088- 2577 Jan, Type 2 diabetes mellitus with diabetic neuropathy, without long-term current use of insulin E11.40 [address] [address] 75562- 1090 Dec, Anxiety F41.9 and Chronic pain syndrome G89.4 [address] [address] 04067- 3358 Dec, Chronic pain syndrome G89.4 and Essential hypertension I10 [address] [address] 85180- 1732 Dec, [place] [address] 46237- 7414 Dec, Anxiety F41.9 [address] [address] 73588- 3154 Dec, [place] [address] 61654- 4229 Dec, Type 2 diabetes mellitus with diabetic neuropathy, without long-term current use of insulin E11.40 ; Lactic acidosis E87.2 ; Chronic obstructive pulmonary disease, unspecified COPD type J44.9 and Encounter for immunization Z23 [place] [id number] [place] [address] 93304- 4885 Dec, Chronic pain syndrome G89.4 [address] [address] 35855- 7592 Nov, [place] [address] 98985- 5423 Nov, Chronic pain syndrome G89.4 [address] [address] 74119- 0238 Nov, [facility] [address] [facility] [id number] [address]- 6791 Nov, [facility] [address] [place] [address] 26582- 9631 Nov, Anxiety F41.9 [facility] [address], [place] [address]- 2660 Nov, Anxiety F41.9 [facility] [id number] [place] [address] 83549- 4076 Nov, [facility] [address] [place] [address] 20401- 8883 Nov, [facility] [address] [place] [address] 65970- 0982 Nov, [facility] [address] [place] [address] 50082- 7996 Oct, [facility] [address] [place] [address] 57120- 5275 Oct, [facility] [address] [place] [address] 14746- 6643 Oct, [facility] [address], [place] [address]- 3307 Oct, Essential hypertension I10 and Chronic pain syndrome G89.4 [facility] [address] [place] [address] 32067- 1671 Oct, Anxiety F41.9 [facility] [address], [place] [address]- 2023 Oct, [facility] [address], [place] [address]- 6558 Oct, Chronic pain syndrome G89.4 [facility] [address], [place] [address] -6761 Oct, Sore throat J02.9 and Acute nasopharyngitis (common cold) J00 [facility] [address], [place] [address]- 5715 Sep, [facility] [id number] [place] [address] 59423- 4116 Sep, COPD exacerbation J44.1 [facility] [id number] [place] [address] 98212- 8695 Sep, Chronic pain syndrome G89.4 [facility] [id number] [place] [address] 83942- 8004 Sep, Essential hypertension I10 [facility] [id number] [place] [address] 76194- 1214 Sep, [facility] [id number] [place] [address] 39046- 5026 Sep, [facility] [id number] [place] [address] 40945- 4817 Sep, Anxiety F41.9 [facility] [id number] [place] [address] 28743- 9087 Sep, Chronic pain syndrome G89.4 [facility] [id number] [place] [address] 93860- 0355 Sep, [facility] [id number] [place] [address] 49333- 9340 Aug, Acute seasonal allergic rhinitis, unspecified trigger J30.2 ; Hiatal hernia K44.9 and Chronic pain syndrome G89.4 [facility] [address] [place] [address] 15358- 8200 Aug, [facility] [id number] [place] [address] 87485- 3046 Aug, [facility] [address] [place] [address] 11981- 1094 Aug, Chronic obstructive pulmonary disease, unspecified COPD type J44.9 [facility] [address] [place] [address]- 0475 14 Aug, 2016 Anxiety F41.9 [facility] [id number] [place] [address] 82066- 6446 08 Aug, 2016 Chronic pain syndrome G89.4 [facility] [id number] [place] [address] 62554- 8145 07 Aug, 2016 Hiatal hernia K44.9 and Actinic keratosis L57.0 [facility] [id number] [place] [address] 07408- 2765 07 Aug, 2016 [facility] [id number] [place] [address] 65116- 9243 Aug, Anxiety F41.9 [facility] [id number] [place] [address] 57983- 0423 July, [facility] [id number] [place] [address] 80253- 6651 July, Hiatal hernia K44.9 [facility] [id number] [place] [address] 51303- 6508 July, [facility] [id number] [place] [address] 37908- 2475 July, Anxiety F41.9 and Chronic pain syndrome G89.4 [facility] [id number] [place] [address] 90780- 1403 July, [facility] [id number] [place] [address] 41019- 3739 Jun, Chronic pain syndrome G89.4 [facility] [id number] [place] [address] 70704- 8537 Jun, Chronic pain syndrome G89.4 [facility] [id number] [place] [address] 89156- 1323 Jun, [facility] [id number] [place] [address] 56769- 5102 Jun, Anxiety F41.9 [facility] [address] [place] [address] 56235- 7200 Jun, Allergic rhinitis, unspecified allergic rhinitis trigger, unspecified rhinitis seasonality J30.9 [facility] [id number] [place] [address] 60851- 0049 Jun, [facility] [id number] [place] [address] 97419- 0668 May, Chronic pain syndrome G89.4 [facility] [id number] [place] [address] 12764- 4730 May, [facility] [id number] [place] [address] 59104- 2535 May, [place] [id number] [place] [address] 87929- 6916 May, Anxiety F41.9 [facility] [id number] [place] [address] 17317- 4505 May, Type 2 diabetes mellitus with diabetic [...] Anxiety F41.9 and Chronic pain syndrome G89.4 [place] [address] [place] [address] 74502- 6875 May, Essential hypertension I10 ; Type 2 diabetes mellitus with diabetic neuropathy, without long-term current use of insulin E11.40 ; Mixed hyperlipidemia E78.2 ; Chronic obstructive pulmonary disease, unspecified COPD type J44.9 and Chronic GERD K21.9 [place] [address] [address]- 2434 May, [place] [address] [place] [id number] [place] [address] May, [place] [id number] [place] [id number] May, Type 2 diabetes mellitus with diabetic neuropathy, without long-term current use of insulin E11.40 [place] [address] [place] [id number] [place] [id number]- [address] May, Dementia without behavioral disturbance, unspecified dementia type F03.90 [place] [address] [place] [id number] [place] [address] May, Type 2 diabetes mellitus with diabetic neuropathy, without long-term current use of insulin E11.40 ; Essential hypertension I10 ; Mixed hyperlipidemia E78.2 ; Chronic obstructive pulmonary disease, unspecified COPD type J44.9 ; Chronic GERD K21.9 and Osteoarthritis of both knees, unspecified osteoarthritis type M17.0 [place] [id number] [place] [address] 55477- 2815 May, [place] [id number] [place] [address] 97642- 8861 May, [place] [id number] [place] [address] 45817- 9915 May, Anxiety F41.9 and Unspecified symptoms and signs involving cognitive functions and awareness R41.9 [place] [id number] [place] [address] 64229- 0910 May, [facility] [id number] [place] [address] 53641- 3568 May, Type 2 diabetes mellitus with diabetic neuropathy, without long-term current use of insulin E11.40 ; Anxiety F41.9 and Chronic obstructive pulmonary disease, unspecified COPD type J44.9 [place] [address] [place] [address] 33502- 2877 May, [place] [id number] [place] [address] 65045- 2372 May, [place] [address] 39015- 0384 May, [place] [address] 41439- 4055 May, Chronic obstructive pulmonary disease, unspecified COPD type J44.9 [place] [address] 66087- 5575 Mar, [place] [address] 89311- 7502 Mar, Arthritis of both knees M19.90 [place] [address] 92945- 1340 Mar, Type 2 diabetes mellitus with diabetic neuropathy, without long-term current use of insulin E11.40 [place] [address] 97691- 3284 Mar, [place] [address] 43302- 6005 Mar, Neck pain M54.2 and Weakness generalized R53.1 [place] [address] 05735- 7676 Mar, [place] [address] 07460- 6306 Mar, Cervicalgia M54.2 and Impacted cerumen of both ears H61.23 [place] [address] 57622- 4489 Mar, [place] [address] 98926- 2526 Mar, Type 2 diabetes mellitus with diabetic neuropathy, without long-term current use of insulin E11.40 [place] [id number] [place] [address] 44252- 6195 Feb, [place] [address] 32075- 8446 Feb, Hypoxia R09.02 [facility] [id number] [place] [address] 12943- 0501 Feb, [facility] [id number] [place] [address] 82015- 4466 Feb, [facility] [id number] [place] [address] 46365- 5380 Feb, [facility] [id number] [place] [address] 16012- 6357 16 Feb, 2016 Type 2 diabetes mellitus with diabetic neuropathy, without long-term current use of insulin E11.40 [facility] [id number] [place] [address] 83971- 6004 15 Feb, 2016 Osteoarthritis of both knees, unspecified osteoarthritis type M17.0 [facility] [id number] [place] [address] 32352- 9000 14 Feb, 2016 [facility] [id number] [place] [address] 56141- 8893 12 Feb, 2016 [facility] [id number] [place] [address] 18132- 3292 09 Feb, 2016 [facility] [id number] [place] [address] 28339- 3192 15 Jan, 2016 [facility] [address] [place] [address] 61302- 7902 15 Jan, 2016 [facility] [id number] [place] [address] 78540- 0350 14 Jan, 2016 [facility] [address] [place] [address] 98750- 0354 14 Jan, 2016 [facility] [id number] [place] [address] 74972- 8340 10 Jan, 2016 Tinea pedis of both feet B35.3 [facility] [id number] [place] [address] 80728- 0442 Jan, Type 2 diabetes mellitus with diabetic [...] seasonality J30.9 and Encounter for immunization Z23 [facility] [address] 40245- 4728 Jan, [place] [address] 84550- 3973 Jan, [place] [address] 32979- 8526 Dec, [facility] [address] 89269- 1245 Dec, [facility] [id number] [place] [address] 63532 -9365 Dec, Unspecified asthma with (acute) exacerbation J45.901 and Chronic obstructive pulmonary disease with (acute) exacerbation J44.1 [place] [id number] [place] [address] 43083- 8353 Dec, Arthritis of both knees M19.90 and Acute medial meniscus tear, right, initial encounter S83.241A [place] [id number] [place] [address] 84073- 4700 Dec, [place] [address] 63470- 3273 Dec, [facility] [id number] [place] [address] 45045- 3271 Dec, [facility] [address] 95253- 9861 Dec, [facility] [address] [address] 8528 Dec, History of pneumonia Z87.01 [place] [address] [place] [address] 10591- 0889 Dec, [facility] [id number] [place] [address] 28851- 1125 Dec, [place] [id number] [place] [address] 92484- 7422 Dec, [place] [id number] [place] [address] 20699- 9521 Dec, [place] [id number] [place] [address] 66795- 7556 Dec, [place] [id number] [place] [address] 34673- 8831 Dec, [place] [id number] [place] [address] 77258- 7738 30 Nov, 2015 Cough R05 and Pneumonia due to infectious organism, unspecified laterality, unspecified part of lung J18.9 [place] [address] [place] [address] 16123- 0322 Nov, [place] [address] [place] [address] 22685- 9320 Nov, Type 2 diabetes mellitus with diabetic [...] allergic rhinitis trigger, unspecified rhinitis seasonality J30.9 [place] [address] [facility] [id number] [place] [address]- 9125 12 Nov, 2015 IMMUNIZATIONS No Known Immunizations SOCIAL HISTORY Never Assessed REASON FOR VISIT CCM note/Meds PLAN OF CARE VITAL SIGNS MEDICATIONS Unknown Medications RESULTS No Results PROCEDURES No Known procedures INSTRUCTIONS MEDICATIONS ADMINISTERED No Known Medications MEDICAL (GENERAL) HISTORY Type Description Date Medical History hypertension Medical History chronic obstructive pulmonary disease (COPD)-wears 2L O2 per DC, uses [employer] for home O2 Medical History [...] TIA, Via [facility] 2014 Hospitalization History COPD exacerbation--[facility] 12/27/2015 [facility] - fall 02/2016 [facility] History [facility] pneumonia 11/2016 Hospitalization History COPD exacerbation - Dr Hartley Attending 12/2016 Hospitalization History Cough- [facility] 04/10/2017 [facility] History [facility] - Possible Pneumonia 06/2017 Hospitalization History COPD hiatal hernia 08/2017
--- OUTSIDE RECORDS SUMMARY | 2018-01-05 15:49 | XMS REPORT ---
Author Author DEBBIE RIVERA Organization [facility] Address [address] [place] [address] Care Team Providers Care Illustrator Set Name Role Phone DEBBIE RIVERA Unavailable PROBLEMS Type Condition ICD9-CM Code TLM52-AD Code Onset Dates Condition Status SNOMED Code Problem Chronic pain syndrome G89.4 Active 230794628 Problem Gastroesophageal reflux disease without esophagitis K21.9 Active 171564247 Problem Chronic GERD K21.9 Active 827076068 Problem Unspecified urinary incontinence R32 Active 476229056 Problem Elevated transaminase level R74.0 Active 209358490 Problem 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 Active 634907251 Problem 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 Active 076673308 Problem Nocturnal hypoxemia G47.34 Active 349034514 Problem 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 Active 388998228965664 Problem Recurrent major depressive disorder, in partial 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 Active 63471042 Problem Mixed hyperlipidemia E78.2 Active 119600631 Problem Essential hypertension I10 Active 92668624 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 Active 9177430 Problem 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 Active 041644583 Problem Chronic obstructive pulmonary disease, unspecified COPD type J44.9 Active 64142186 Problem Allergic rhinitis, unspecified allergic rhinitis trigger, unspecified rhinitis seasonality J30.9 Active 93224653 Problem Anxiety F41.9 Active 81718821 Problem Type 2 diabetes mellitus with diabetic neuropathy, without long-term current use of insulin E11.40 Active 46398344 Problem Hypoxia R09.02 Active 832682659 Problem Osteoarthritis of both knees, unspecified osteoarthritis type M17.0 Active [id number] ALLERGIES No Information ENCOUNTERS Encounter Location Date Diagnosis [facility] [id number], [place] [address] Nov, [facility] [id number] [place] [address] 68070- 0552 25 Nov, 2017 [place] [id number] [place] [address] 14072- 6739 17 Nov, 2017 Alzheimers disease with early onset G30.0 [facility] [id number] [place] [address] 02371- 3917 14 Nov, 2017 [place] [id number] [place] [address] 75189- 9259 12 Nov, 2017 Unspecified urinary incontinence R32 and Unspecified contact dermatitis due to other agents L25.8 [facility] [id number] [place] [address] 04997- 7880 11 Nov, 2017 Chronic pain syndrome G89.4 [facility] [facility] [id number] [place] [address] 46427- 0758 10 Nov, 2017 Type 2 diabetes mellitus with diabetic neuropathy, without long-term current use of insulin E11.40 [facility] [facility] [id number] [place] [address] 25237- 2668 Nov, [facility] [facility] [id number] [place] [address] 68309- 8253 Nov, Chronic obstructive pulmonary disease, unspecified COPD type J44.9 and Gastroesophageal reflux disease without esophagitis K21.9 [place] [id number] [place] [address] 50410- 6260 Oct, [place] [id number] [place] [address] 60388- 6851 Oct, [place] [id number] [place] [address] 83079- 6248 Oct, Chronic pain syndrome G89.4 [facility] [id number] [place] [address] 24882- 9635 Oct, Community acquired bacterial pneumonia J15.9 ; Allergic rhinitis, unspecified allergic rhinitis trigger, unspecified rhinitis seasonality J30.9 ; Type 2 diabetes mellitus with diabetic neuropathy, without long-term current use of insulin E11.40 ; Chronic GERD K21.9 and Chronic obstructive pulmonary disease, unspecified COPD type J44.9 [facility] [id number] [place] [address] 53592- 4750 Oct, [facility] [id number] [place] [address] 52385- 2731 Oct, [facility] [id number] [place] [address] 16725- 3133 Oct, [facility] [id number] [place] [address] 43179- 6086 Oct, [facility] [id number] [place] [address] 41705- 6051 Oct, Essential hypertension I10 [facility] [id number] [place] [address] 15141- 2750 Oct, Type 2 diabetes mellitus with diabetic neuropathy, without long-term current use of insulin E11.40 ; Chronic obstructive pulmonary disease , unspecified COPD type J44.9 ; Mixed hyperlipidemia E78.2 ; Osteoarthritis of both knees, unspecified osteoarthritis type M17.0 ; Alzheimers disease with early onset G30.0 and Essential hypertension I10 [facility] [id number] [place] [address] 95916- 8311 Oct, [facility] [id number] [place] [address] 25035- 5165 Oct, [facility] [id number] [place] [address] 31043- 3677 Oct, Yeast dermatitis B37.2 [facility] [id number] [place] [address] 47453- 4088 Oct, Chronic pain syndrome G89.4 [facility] [id number] [place] [address] 39629- 8461 Sep, [facility] [id number] [place] [address] 19119- 5597 Sep, [facility] [address] [place] [address]- 0287 Sep, Alzheimers disease with early onset G30.0 and Chronic pain syndrome G89.4 [facility] [id number], [place] [address] 1461 Sep, COPD with acute exacerbation J44.1 [facility] [address], [place] [address] 0493 Sep, [facility] [id number] [place] [address] 53399- 7615 Sep, [facility] [id number] [place] [address] 32269- 8494 Sep, Gastroesophageal reflux disease without esophagitis K21.9 [facility] [address], [place] [address] 7877 Aug, [facility] [id number] [place] [address] 50551- 1100 Aug, [facility] [address], [place] [address] 9766 Aug, 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 ; Hospital discharge follow-up Z09 ; Chronic obstructive pulmonary disease, unspecified COPD type J44.9 and Chronic GERD K21.9 [facility] [address], [place] [address] 3394 Aug, Chronic pain syndrome G89.4 [facility] [address], [place] [address] 1445 Aug, [facility] [address], [place] [address] 9809 Aug, [facility] [id number] [place] [address] 46878- 0974 Aug, Chronic pain syndrome G89.4 and Alzheimers disease with early onset G30.0 [facility] [address], [place] [address] 9668 Aug, Type 2 diabetes mellitus with diabetic neuropathy, without long-term current use of insulin E11.40 ; Chronic obstructive pulmonary disease , unspecified COPD type J44.9 ; Chronic GERD K21.9 and 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 [facility] [id number] [place] [address] 56359- 2645 Aug, [facility] [address] 60440- 9892 Aug, Essential hypertension I10 and Cough R05 [facility] [id number] [place] [address] 07041- 1929 Aug, [facility] [address] 22126- 8658 Aug, [facility] [id number] [place] [address] 37934- 4882 Aug, [facility] [address] 17801- 4088 Aug, Chronic pain syndrome G89.4 [facility] [id number] [place] [address] 85250- 8246 Aug, [facility] [id number] [place] [address] 81038- 5061 Aug, [facility] [id number] [place] [address] 10389- 9678 July, Gastroesophageal reflux disease without esophagitis K21.9 [facility] [id number] [place] [address] 39484- 7342 July, [facility] [id number] [place] [address] 83769- 0800 July, [facility] [id number] [place] [address] 23141- 3048 July, [facility] [id number] [place] [address] 79039- 5401 July, Essential hypertension I10 and Chronic pain syndrome G89.4 [place] [id number] [place] [address] 18803- 5975 July, Gastroesophageal reflux disease without esophagitis K21.9 [facility] [id number] [place] [address] 40072- 5196 July, Alzheimers disease with early onset G30.0 [place] [address] 47633- 4830 July, Chronic obstructive pulmonary disease, unspecified COPD type J44.9 ; Nocturnal cough R05 ; 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 and Recurrent major depressive disorder, in partial 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 [place] [address] 89659- 6803 July, [place] [address] 85621- 0271 July, Type 2 diabetes mellitus with diabetic neuropathy, without long-term current use of insulin E11.40 [place] [id number] [place] [address] 26894- 4287 July, Nocturnal hypoxemia G47.34 ; Chronic obstructive pulmonary disease, unspecified COPD type J44.9 and Nocturnal cough R05 [place] [id number] [place] [address] 82637- 8765 July, [place] [id number] [place] [address] 49059- 1606 July, [place] [id number] [place] [address] 49280- 2899 July, [place] [id number] [place] [address] 47749- 0307 Jun, Chronic pain syndrome G89.4 [place] [id number] [place] [address] 63024- 1518 Jun, [place] [address] 74680- 6266 Jun, [place] [id number] [place] [address] 07208- 1544 Jun, Alzheimers disease with early onset G30.0 [place] [id number] [place] [address] 05370- 1766 Jun, [facility] [id number] [place] [address] 00819- 2739 Jun, Gastroesophageal reflux disease without esophagitis K21.9 [facility] [id number] [place] [address] 59124- 6444 Jun, Allergic rhinitis, unspecified allergic rhinitis trigger, unspecified rhinitis seasonality J30.9 [place] [id number] [place] [address] 02597- 7297 Jun, Chronic pain syndrome G89.4 [place] [id number] [place] [address] 79891- 8496 May, [place] [id number] [place] [address] 77172- 1830 May, COPD with acute exacerbation J44.1 [place] [address] 99296- 0385 14 May, 2017 Type 2 diabetes mellitus with diabetic neuropathy, without long-term current use of insulin E11.40 ; COPD with acute exacerbation J44.1 ; Hypoxia R09.02 ; Chronic pain syndrome G89.4 ; Yeast dermatitis B37.2 ; Alzheimers disease with early onset G30.0 and 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 [place] [id number] [place] [address] 01882- 3897 May, [place] [id number] [place] [address] 62243- 2970 May, Chronic pain syndrome G89.4 [place] [id number] [place] [address] 82023- 8825 May, [place] [address] [place] [address]- 6218 May, [facility] [address], [place] [address]- 9224 May, Mixed hyperlipidemia E78.2 [facility] [address], [place] [address]- 0435 May, Chronic pain syndrome G89.4 [facility] [id number] [place] [address] 75518- 7800 May, Anxiety F41.9 and Chronic pain syndrome G89.4 [facility] [id number] [place] [address] 00610- 7627 Mar, [facility] [id number] [place] [address] 62065- 6139 Mar, [facility] [id number] [place] [address] 86634- 5526 Mar, [facility] [id number] [place] [address] 65509- 6396 Mar, [facility] [address], [place] [address]- 5540 Mar, [facility] [address], [place] [address]- 0990 Mar, Anxiety F41.9 and Chronic pain syndrome G89.4 [facility] [address], [place] [address]- 9038 Mar, Medicare annual wellness visit, initial Z00.00 [...] Hiatal hernia K44.9 and Actinic keratosis L57.0 [facility] [id number] [place] [address] 19797 2546 Mar, [facility] [id number] [place] [address] 20029 2546 Mar, Chronic pain syndrome G89.4 [facility] [id number] [place] [address] 79286 2546 Feb, [facility] [id number] [place] [address] 75299 2546 Feb, Chronic pain syndrome G89.4 [facility] [id number] [place] [address] 96818 2546 Feb, [facility] [id number] [place] [address] 24456- 7426 Feb, [facility] [id number] [place] [address] 42554 2545 Feb, Anxiety F41.9 [facility] [id number] [place] [address] 98148 2546 Feb, [facility] [id number] [place] [address] 17573 2546 Feb, Chronic pain syndrome G89.4 [facility] [id number] [place] [address] 78889 2546 Jan, Essential hypertension I10 [facility] [id number] [place] [address] 56343 254 Jan, Chronic pain syndrome G89.4 [facility] [id number] [place] [address] 17418 2546 Jan, [facility] [id number] [place] [address] 28662 2546 Jan, Anxiety F41.9 [facility] [id number] [place] [address] 84445- 8552 Jan, Encounter for immunization Z23 and Community acquired pneumonia, unspecified laterality J18.9 [place] [address] 94643- 3546 Jan, Type 2 diabetes mellitus with diabetic neuropathy, without long-term current use of insulin E11.40 [place] [address] 67635- 6822 Dec, Anxiety F41.9 and Chronic pain syndrome G89.4 [place] [address] 66329- 4514 Dec, Chronic pain syndrome G89.4 and Essential hypertension I10 [place] [address] 96710- 9690 Dec, [place] [address] 22939- 7788 Dec, Anxiety F41.9 [place] [address] 55362- 1161 Dec, [place] [address] 16870- 3688 Dec, Type 2 diabetes mellitus with diabetic neuropathy, without long-term current use of insulin E11.40 ; Lactic acidosis E87.2 ; Chronic obstructive pulmonary disease, unspecified COPD type J44.9 and Encounter for immunization Z23 [place] [id number] [place] [address] 34245- 4001 Dec, Chronic pain syndrome G89.4 [place] [address] 01249- 5192 Nov, [place] [address] 59526- 8677 Nov, Chronic pain syndrome G89.4 [place] [address] 52125- 3439 Nov, [facility] [address] [facility] [id number] [address]- 6712 Nov, [facility] [id number] [place] [address] 66713- 3809 Nov, Anxiety F41.9 [facility] [address], [place] [address]- 7563 Nov, Anxiety F41.9 [facility] [id number] [place] [address] 87674- 5362 Nov, [facility] [id number] [place] [address] 07295- 0082 Nov, [facility] [id number] [place] [address] 26577- 3082 Nov, [facility] [id number] [place] [address] 81238- 0132 Oct, [facility] [id number] [place] [address] 93328- 9973 Oct, [facility] [id number] [place] [address] 07467- 9704 Oct, [facility] [address], [place] [address]- 6876 Oct, Essential hypertension I10 and Chronic pain syndrome G89.4 [facility] [id number] [place] [address] 97444- 2753 Oct, Anxiety F41.9 [facility] [address], [place] [address]- 0512 Oct, [facility] [address], [place] [address]- 6044 Oct, Chronic pain syndrome G89.4 [facility] [id number], [place] [address] -9137 Oct, Sore throat J02.9 and Acute nasopharyngitis (common cold) J00 [facility] [address], [place] [address]- 5938 Sep, [facility] [id number] [place] [address] 03310- 4519 Sep, COPD exacerbation J44.1 [facility] [id number] [place] [address] 20092- 0879 Sep, Chronic pain syndrome G89.4 [facility] [id number] [place] [address] 41508- 3667 Sep, Essential hypertension I10 [facility] [id number] [place] [address] 61584- 5274 Sep, [facility] [id number] [place] [address] 44546- 2586 Sep, [facility] [id number] [place] [address] 63834- 1679 Sep, Anxiety F41.9 [facility] [id number] [place] [address] 79866- 8287 Sep, Chronic pain syndrome G89.4 [facility] [id number] [place] [address] 58062- 0656 Sep, [facility] [id number] [place] [address] 38789- 3803 Aug, Acute seasonal allergic rhinitis, unspecified trigger J30.2 ; Hiatal hernia K44.9 and Chronic pain syndrome G89.4 [facility] [id number] [place] [address] 40032- 6767 Aug, [facility] [id number] [place] [address] 97347- 6166 Aug, [facility] [id number] [place] [address] 69467- 5863 Aug, Chronic obstructive pulmonary disease, unspecified COPD type J44.9 [facility] [address] [place] [address]- 3736 14 Aug, 2016 Anxiety F41.9 [facility] [id number] [place] [address] 96330- 5167 08 Aug, 2016 Chronic pain syndrome G89.4 [facility] [id number] [place] [address] 92471- 5045 07 Aug, 2016 Hiatal hernia K44.9 and Actinic keratosis L57.0 [facility] [id number] [place] [address] 14234- 8137 07 Aug, 2016 [facility] [id number] [place] [address] 45979- 0518 Aug, Anxiety F41.9 [facility] [id number] [place] [address] 01513- 5440 July, [facility] [id number] [place] [address] 42752- 7566 July, Hiatal hernia K44.9 [facility] [id number] [place] [address] 59897- 3155 July, [facility] [id number] [place] [address] 03508- 3845 July, Anxiety F41.9 and Chronic pain syndrome G89.4 [facility] [id number] [place] [address] 06660- 3917 July, [facility] [id number] [place] [address] 23793- 0868 Jun, Chronic pain syndrome G89.4 [facility] [id number] [place] [address] 80904- 0833 Jun, Chronic pain syndrome G89.4 [facility] [id number] [place] [address] 77829- 9277 Jun, [facility] [id number] [place] [address] 35222- 7170 Jun, Anxiety F41.9 [facility] [id number] [place] [address] [id number]- [id number] Jun, Allergic rhinitis, unspecified allergic rhinitis trigger, unspecified rhinitis seasonality J30.9 [facility] [id number] [place] [address] 77917- 5058 Jun, [place] [id number] [place] [address] 16471- 0788 May, Chronic pain syndrome G89.4 [place] [facility] [id number] [place] [address] 30255- 1055 May, [place] [id number] [place] [address] 12478- 2159 May, [place] [id number] [place] [address] 21002- 1962 May, Anxiety F41.9 [place] [id number] [place] [address] 44743- 7678 May, Type 2 diabetes mellitus with diabetic [...] Anxiety F41.9 and Chronic pain syndrome G89.4 [place] [id number] [place] [address] 07987- 5129 May, Essential hypertension I10 ; Type 2 diabetes mellitus with diabetic neuropathy, without long-term current use of insulin E11.40 ; Mixed hyperlipidemia E78.2 ; Chronic obstructive pulmonary disease, unspecified COPD type J44.9 and Chronic GERD K21.9 [place] [id number] [address] May, [place] [id number] [place] [address] 95791- 2254 May, [place] [id number] [place] [address] 41978- 8944 May, Type 2 diabetes mellitus with diabetic neuropathy, without long-term current use of insulin E11.40 [facility] [id number] [place] [address] 22133- 0213 May, Dementia without behavioral disturbance, unspecified dementia type F03.90 [facility] [id number] [place] [address] 13994- 2382 May, Type 2 diabetes mellitus with diabetic neuropathy, without long-term current use of insulin E11.40 ; Essential hypertension I10 ; Mixed hyperlipidemia E78.2 ; Chronic obstructive pulmonary disease, unspecified COPD type J44.9 ; Chronic GERD K21.9 and Osteoarthritis of both knees, unspecified osteoarthritis type M17.0 [facility] [id number] [place] [address] 19092- 5557 May, [facility] [id number] [place] [address] 94708- 2324 May, [facility] [id number] [place] [address] 49412- 4100 May, Anxiety F41.9 and Unspecified symptoms and signs involving cognitive functions and awareness R41.9 [facility] [id number] [place] [address] 15155- 8615 May, [facility] [id number] [place] [address] 12523- 4699 May, Type 2 diabetes mellitus with diabetic neuropathy, without long-term current use of insulin E11.40 ; Anxiety F41.9 and Chronic obstructive pulmonary disease, unspecified COPD type J44.9 [facility] [id number] [place] [address] 28991- 0765 May, [facility] [id number] [place] [address] 67648- 2009 May, [facility] [facility] [address] 78796- 0436 May, [facility] [facility] [address] 56224- 1757 May, Chronic obstructive pulmonary disease, unspecified COPD type J44.9 [facility] [facility] [address] 15775- 0359 Mar, [facility] [facility] [address] 11041- 1067 Mar, Arthritis of both knees M19.90 [facility] [address] 36119- 5303 Mar, Type 2 diabetes mellitus with diabetic neuropathy, without long-term current use of insulin E11.40 [facility] [facility] [address] 05210- 3364 Mar, [facility] [facility] [address] 83188- 3465 Mar, Neck pain M54.2 and Weakness generalized R53.1 [facility] [facility] [address] 80495- 7758 Mar, [facility] [facility] [address] 12929- 4997 Mar, Cervicalgia M54.2 and Impacted cerumen of both ears H61.23 [facility] [facility] [address] 21746- 0134 Mar, [facility] [facility] [address] 17988- 2148 Mar, Type 2 diabetes mellitus with diabetic neuropathy, without long-term current use of insulin E11.40 [facility] [id number] [place] [address] 02345- 3425 Feb, [facility] [address] 45120- 9070 Feb, Hypoxia R09.02 [facility] [id number] [place] [address] 18271- 8827 Feb, [facility] [id number] [place] [address] 20686- 7221 Feb, [facility] [id number] [place] [address] 91425- 9440 Feb, [facility] [id number] [place] [address] 61758- 9022 16 Feb, 2016 Type 2 diabetes mellitus with diabetic neuropathy, without long-term current use of insulin E11.40 [facility] [id number] [place] [address] 39973- 0500 15 Feb, 2016 Osteoarthritis of both knees, unspecified osteoarthritis type M17.0 [facility] [id number] [place] [address] 41387- 4712 14 Feb, 2016 [facility] [id number] [place] [address] 84712- 5639 12 Feb, 2016 [facility] [id number] [place] [address] 69457- 7630 09 Feb, 2016 [facility] [id number] [place] [address] 87509- 1806 15 Jan, 2016 [facility] [id number] [place] [address] 25489- 4461 15 Jan, 2016 [facility] [id number] [place] [address] 54596- 3565 14 Jan, 2016 [facility] [id number] [place] [address] 83608- 8612 14 Jan, 2016 [facility] [id number] [place] [address] 00181- 9098 10 Jan, 2016 Tinea pedis of both feet B35.3 [facility] [id number] [place] [address] 52850- 4919 Jan, Type 2 diabetes mellitus with diabetic [...] seasonality J30.9 and Encounter for immunization Z23 [facility] [address] 71931- 5772 Jan, [place] [address] 79537- 7223 Jan, [place] [address] 51400- 9931 Dec, [facility] [address] 13038- 3525 Dec, [facility] [id number] [place] [address] 76643 -2276 Dec, Unspecified asthma with (acute) exacerbation J45.901 and Chronic obstructive pulmonary disease with (acute) exacerbation J44.1 [facility] [id number] [place] [address] 26670- 9869 Dec, Arthritis of both knees M19.90 and Acute medial meniscus tear, right, initial encounter S83.241A [facility] [id number] [place] [address] 38228- 8034 Dec, [facility] [address] 40551- 3162 Dec, [facility] [id number] [place] [address] 44385- 6969 Dec, [facility] [address] 95180- 3020 Dec, [facility] [id number] [address] 1678 Dec, History of pneumonia Z87.01 [facility] [id number] [place] [address] 20056- 9613 Dec, [facility] [id number] [place] [address] 88306- 1460 Dec, [facility] [id number] [place] [address] 69091- 8822 Dec, [facility] [id number] [place] [address] 04170- 8403 Dec, [facility] [id number] [place] [address] 55829- 0737 Dec, [facility] [id number] [place] [address] 21020- 5816 Dec, [facility] [id number] [place] [address] 69673- 9652 30 Nov, 2015 Cough R05 and Pneumonia due to infectious organism, unspecified laterality, unspecified part of lung J18.9 [facility] [id number] [place] [address] 26640- 3176 Nov, [facility] [id number] [place] [address] 98087- 0572 Nov, Type 2 diabetes mellitus with diabetic [...] allergic rhinitis trigger, unspecified rhinitis seasonality J30.9 [place] [address] [facility] [id number] [address] 12 Nov, 2015 IMMUNIZATIONS No Known Immunizations SOCIAL HISTORY Never Assessed REASON FOR VISIT Appt note PLAN OF CARE VITAL SIGNS MEDICATIONS Unknown Medications RESULTS No Results PROCEDURES No Known procedures INSTRUCTIONS MEDICATIONS ADMINISTERED No Known Medications MEDICAL (GENERAL) HISTORY Type Description Date Medical History hypertension Medical History chronic obstructive pulmonary disease (COPD)-wears 2L O2 per [place], uses [employer] for home O2 Medical History [...] TIA, [facility] 2014 Hospitalization History COPD exacerbation--[facility] 12/27/2015 [facility] - [facility] 02/2016 [facility] History [facility] pneumonia 11/2016 Hospitalization History COPD exacerbation - Dr Hartley Attending 12/2016 Hospitalization History Cough- [facility] [place] 04/10/2017 [facility]ization [facility] - Possible Pneumonia 06/2017 Hospitalization History COPD hiatal hernia 08/2017
--- OUTSIDE RECORDS SUMMARY | 2018-01-05 15:50 | XMS REPORT ---
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 Role Phone RIVERADEBBIE Unavailable PROBLEMS Type Condition ICD9-CM Code OHA84-VS Code Onset Dates Condition Status SNOMED Code Problem Chronic pain syndrome G89.4 Active 028802354 Problem Gastroesophageal reflux disease without esophagitis K21.9 Active 965063361 Problem Chronic GERD K21.9 Active 302761199 Problem Unspecified urinary incontinence R32 Active 255187427 Problem Elevated transaminase level R74.0 Active 373556421 Problem 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 Active 026139416 Problem 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 Active 966972790 Problem Nocturnal hypoxemia G47.34 Active 018041405 Problem 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 Active 000570419560706 Problem Recurrent major depressive disorder, in partial 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 Active 19503082 Problem Mixed hyperlipidemia E78.2 Active 455383961 Problem Essential hypertension I10 Active 07924908 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 Active 1004404 Problem 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 Active 606680876 Problem Chronic obstructive pulmonary disease, unspecified COPD type J44.9 Active 20778196 Problem Allergic rhinitis, unspecified allergic rhinitis trigger, unspecified rhinitis seasonality J30.9 Active 69648917 Problem Anxiety F41.9 Active 36894584 Problem Type 2 diabetes mellitus with diabetic neuropathy, without long-term current use of insulin E11.40 Active 86628075 Problem Hypoxia R09.02 Active 560845993 Problem Osteoarthritis of both knees, unspecified osteoarthritis type M17.0 Active 600783946 ALLERGIES No Information ENCOUNTERS Encounter Location Date Diagnosis [facility] [id number] [address] Nov, [facility] [id number] [place] [address] 20103- 2142 17 Nov, 2017 Alzheimers disease with early onset G30.0 [facility] [id number] [place] [address] 25196- 1421 14 Nov, 2017 [facility] [address] 00218- 2269 12 Nov, 2017 Unspecified urinary incontinence R32 and Unspecified contact dermatitis due to other agents L25.8 [facility] [address] 963817- 2895 11 Nov, 2017 Chronic pain syndrome G89.4 [facility] [address] 233236- 5783 10 Nov, 2017 Type 2 diabetes mellitus with diabetic neuropathy, without long-term current use of insulin E11.40 [facility] [address] 18937- 2477 Nov, [facility] [address] 24547- 0373 Nov, Chronic obstructive pulmonary disease, unspecified COPD type J44.9 and Gastroesophageal reflux disease without esophagitis K21.9 [facility] [address] 10842- 2785 Oct, [facility] [id number] [place] [address] 59226- 8616 Oct, [facility] [id number] [place] [address] 48910- 6018 Oct, Chronic pain syndrome G89.4 [facility] [id number] [place] [address] 53309- 7219 Oct, Community acquired bacterial pneumonia J15.9 ; Allergic rhinitis, unspecified allergic rhinitis trigger, unspecified rhinitis seasonality J30.9 ; Type 2 diabetes mellitus with diabetic neuropathy, without long-term current use of insulin E11.40 ; Chronic GERD K21.9 and Chronic obstructive pulmonary disease, unspecified COPD type J44.9 [facility] [address] [place] [address] 8637 Oct, [facility] [id number] [place] [address] 85099- 4313 Oct, [facility] [id number] [place] [address] 44854- 5313 Oct, [facility] [id number] [place] [address] 11627- 2788 Oct, [facility] [id number] [place] [address] 69314- 2178 Oct, Essential hypertension I10 [facility] [id number] [place] [address] 96697- 0808 Oct, Type 2 diabetes mellitus with diabetic neuropathy, without long-term current use of insulin E11.40 ; Chronic obstructive pulmonary disease , unspecified COPD type J44.9 ; Mixed hyperlipidemia E78.2 ; Osteoarthritis of both knees, unspecified osteoarthritis type M17.0 ; Alzheimers disease with early onset 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 and Essential hypertension I10 [facility] [id number] [place] [address] 59139- 4735 Oct, [facility] [id number] [place] [address] 26654- 0115 Oct, [facility] [id number] [place] [address] 39825- 5846 Oct, Yeast dermatitis B37.2 [facility] [id number] [place] [address] 11853- 1444 Oct, Chronic pain syndrome G89.4 [facility] [id number] [place] [address] 48296- 9379 Sep, [facility] [id number] [place] [address] 23257- 5620 Sep, [facility] [id number] [place] [address] 93291- 3219 Sep, Alzheimers disease with early onset G30.0 and Chronic pain syndrome G89.4 [facility] [address], [place] [address] 4584 Sep, COPD with acute exacerbation J44.1 [facility] [address] [place] [address] 64554- 3881 Sep, [facility] [id number] [place] [address] 65005- 5268 Sep, [facility] [id number] [place] [address] 29695- 6979 Sep, Gastroesophageal reflux disease without esophagitis K21.9 [facility] [id number] [place] [address] 41721- 3608 Aug, [facility] [id number] [place] [address] 25518- 0619 Aug, [facility] [id number] [place] [address] 04775- 0293 Aug, 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 ; Hospital discharge follow-up Z09 ; Chronic obstructive pulmonary disease, unspecified COPD type J44.9 and Chronic GERD K21.9 [facility] [id number] [place] [address] 81328- 3194 Aug, Chronic pain syndrome G89.4 [facility] [address], [place] [address] 1737 Aug, [facility] [id number] [place] [address] 55744- 7452 Aug, [facility] [address] [place] [address] 01200- 2438 Aug, Chronic pain syndrome G89.4 and Alzheimers disease with early onset G30.0 [facility] [address], [place] [address]- 7209 Aug, Type 2 diabetes mellitus with diabetic neuropathy, without long-term current use of insulin E11.40 ; Chronic obstructive pulmonary disease , unspecified COPD type J44.9 ; Chronic GERD K21.9 and 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 [facility] [id number] [place] [address] 09907- 3177 Aug, [facility] [id number] [place] [address] 57350- 3535 Aug, Essential hypertension I10 and Cough R05 [facility] [address] 93095- 8435 Aug, [facility] [id number] [place] [address] 46675- 9393 Aug, [facility] [id number] [place] [address] 43728- 9221 Aug, [facility] [id number] [place] [address] 31379- 4996 Aug, Chronic pain syndrome G89.4 [facility] [id number] [place] [address] 28550- 8791 Aug, [facility] [id number] [place] [address] 59242- 7642 Aug, [facility] [id number] [place] [address] 05259- 8899 July, Gastroesophageal reflux disease without esophagitis K21.9 [facility] [id number] [place] [address] 10730- 6788 July, [facility] [id number] [place] [address] 00280- 9679 July, [facility] [id number] [place] [address] 99438- 5961 July, [facility] [id number] [place] [address] 05801- 7504 July, Essential hypertension I10 and Chronic pain syndrome G89.4 [facility] [id number] [place] [address] 51015- 6787 July, Gastroesophageal reflux disease without esophagitis K21.9 [facility] [id number] [place] [address] 33606- 7607 July, Alzheimers disease with early onset G30.0 [facility] [id number] [place] [address] 51202- 0790 July, Chronic obstructive pulmonary disease, unspecified COPD type J44.9 ; Nocturnal cough R05 ; 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 and Recurrent major depressive disorder, in partial 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 [facility] [id number] [place] [address] 93564- 0198 July, [facility] [address] 44820- 9524 July, Type 2 diabetes mellitus with diabetic neuropathy, without long-term current use of insulin E11.40 [facility] [address] 62762- 7647 July, Nocturnal hypoxemia G47.34 ; Chronic obstructive pulmonary disease, unspecified COPD type J44.9 and Nocturnal cough R05 [facility] [id number] [place] [address] 75879- 4119 July, [facility] [id number] [place] [address] 31140- 0874 July, [facility] [id number] [place] [address] 44928- 3239 July, [facility] [id number] [place] [address] 96681- 0594 Jun, Chronic pain syndrome G89.4 [facility] [address] 86634- 0700 Jun, [facility] [id number] [place] [address] 10657- 2606 Jun, [facility] [id number] [place] [address] 20987- 8145 Jun, Alzheimers disease with early onset G30.0 [facility] [id number] [place] [address] 63718- 6445 Jun, [facility] [id number] [place] [address] 61028- 2205 Jun, Gastroesophageal reflux disease without esophagitis K21.9 [facility] [address] 92174- 5220 Jun, Allergic rhinitis, unspecified allergic rhinitis trigger, unspecified rhinitis seasonality J30.9 [facility] [id number] [place] [address] 07760- 1361 Jun, Chronic pain syndrome G89.4 [facility] [id number] [place] [address] 54935- 3242 May, [facility] [address] 68490- 3088 May, COPD with acute exacerbation J44.1 [facility] [id number] [place] [address] 05687- 6813 14 May, 2017 Type 2 diabetes mellitus with diabetic neuropathy, without long-term current use of insulin E11.40 ; COPD with acute exacerbation J44.1 ; Hypoxia R09.02 ; Chronic pain syndrome G89.4 ; Yeast dermatitis B37.2 ; Alzheimers disease with early onset G30.0 and 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 [facility] [id number] [place] [address] 97425- 1017 May, [facility] [id number] [place] [address] 66634- 7067 May, Chronic pain syndrome G89.4 [facility] [id number] [place] [address] 90139- 1816 May, [facility] [id number] [place] [address] 10174- 9893 May, [facility] [address] [address]- 9223 19 May, 2017 Mixed hyperlipidemia E78.2 [facility] [address], [place] [address]- 3788 15 May, 2017 Chronic pain syndrome G89.4 [facility] [address], [place] [address]- 7601 May, Anxiety F41.9 and Chronic pain syndrome G89.4 [facility] [address], [place] [address]- 3931 Mar, [facility] [id number] [place] [address] 86485- 2991 Mar, [facility] [id number] [place] [address] 33556- 4452 Mar, [facility] [id number] [place] [address] 82086- 9590 Mar, [facility] [address], [place] [address]- 5843 Mar, [facility] [address] [place] [address] 15979- 9491 Mar, Anxiety F41.9 and Chronic pain syndrome G89.4 [facility] [address], [place] [address]- 9451 Mar, Medicare annual wellness visit, initial Z00.00 [...] hernia K44.9 and Actinic keratosis L57.0 [facility] [address] [place] [address] 75135- 2116 Mar, [facility] [id number] [place] [address] 39648- 8941 Mar, Chronic pain syndrome G89.4 [facility] [id number] [place] [address] 36794- 9572 Feb, [facility] [id number] [place] [address] 90439- 2012 Feb, Chronic pain syndrome G89.4 [facility] [id number] [place] [address] 97390- 2240 Feb, [facility] [id number] [place] [address] 88072- 3575 Feb, [facility] [id number] [place] [address] 28917- 4759 Feb, Anxiety F41.9 [facility] [id number] [place] [address] 51067- 0870 Feb, [facility] [id number] [place] [address] 94350- 1766 Feb, Chronic pain syndrome G89.4 [facility] [id number] [place] [address] 99593- 0073 Jan, Essential hypertension I10 [facility] [id number] [place] [address] 36914- 8959 Jan, Chronic pain syndrome G89.4 [facility] [id number] [place] [address] 96927- 8776 Jan, [facility] [id number] [place] [address] 69600- 7952 Jan, Anxiety F41.9 [facility] [address] [place] [address] 71173- 8928 Jan, Encounter for immunization Z23 and Community acquired pneumonia, unspecified laterality J18.9 [facility] [address] [place] [address] 59398- 6757 Jan, Type 2 diabetes mellitus with diabetic neuropathy, without long-term current use of insulin E11.40 [facility] [id number] [place] [address] 83836- 2375 Dec, Anxiety F41.9 and Chronic pain syndrome G89.4 [facility] [address] 67446- 7840 Dec, Chronic pain syndrome G89.4 and Essential hypertension I10 [facility] [address] 36182- 1829 Dec, [facility] [id number] [place] [address] 91048- 2274 Dec, Anxiety F41.9 [facility] [id number] [place] [address] 43948- 9535 Dec, [facility] [id number] [place] [address] 33527- 5226 Dec, Type 2 diabetes mellitus with diabetic neuropathy, without long-term current use of insulin E11.40 ; Lactic acidosis E87.2 ; Chronic obstructive pulmonary disease, unspecified COPD type J44.9 and Encounter for immunization Z23 [facility] [id number] [place] [address] 90038- 1215 Dec, Chronic pain syndrome G89.4 [facility] [id number] [place] [address] 48496- 8576 Nov, [facility] [id number] [place] [address] 41556- 2506 Nov, Chronic pain syndrome G89.4 [facility] [id number] [place] [address] 46933- 4989 Nov, [facility] [id number] [place] [address] 30077- 7966 Nov, [facility] [address], [place] [address]- 0009 Nov, Anxiety F41.9 [facility] [id number] [place] [address] 42941- 5262 Nov, Anxiety F41.9 [facility] [id number] [place] [address] 04857- 1765 Nov, [facility] [id number] [place] [address] 69335- 2756 Nov, [facility] [id number] [place] [address] 22738- 3828 Nov, [facility] [id number] [place] [address] 37496- 5604 Oct, [facility] [id number] [place] [address] 47534- 5435 Oct, [facility] [id number] [place] [address] 14084- 1717 Oct, [facility] [id number] [place] [address] 99800- 2004 Oct, Essential hypertension I10 and Chronic pain syndrome G89.4 [facility] [id number] [place] [address] 08397- 3844 Oct, Anxiety F41.9 [facility] [id number] [place] [address] 79077- 1963 Oct, [facility] [id number] [place] [address] 92933- 2304 Oct, Chronic pain syndrome G89.4 [facility] [id number] [place] [address] 67378 -8320 Oct, Sore throat J02.9 and Acute nasopharyngitis (common cold) J00 [facility] [address] [place] [address] 88770- 4322 Sep, [facility] [address], [place] [address]- 1972 Sep, COPD exacerbation J44.1 [facility] [id number] [place] [address] 28272- 8706 Sep, Chronic pain syndrome G89.4 [facility] [id number] [place] [address] 97396- 0306 Sep, Essential hypertension I10 [facility] [id number] [place] [address] 87908- 5274 Sep, [facility] [id number] [place] [address] 05360- 3414 Sep, [facility] [id number] [place] [address] 54945- 4480 Sep, Anxiety F41.9 [facility] [id number] [place] [address] 42793- 0193 Sep, Chronic pain syndrome G89.4 [facility] [id number] [place] [address] 06064- 2526 Sep, [facility] [id number] [place] [address] 23029- 9539 Aug, Acute seasonal allergic rhinitis, unspecified trigger J30.2 ; Hiatal hernia K44.9 and Chronic pain syndrome G89.4 [facility] [id number] [place] [address]- 3536 Aug, [facility] [address], [place] [address]- 2542 Aug, [facility] [id number] [place] [address] 56508- 2057 Aug, Chronic obstructive pulmonary disease, unspecified COPD type J44.9 [facility] [id number] [address]- 1106 Aug, Anxiety F41.9 [facility] [id number] [place] [address] 05972- 8755 08 Aug, 2016 Chronic pain syndrome G89.4 [facility] [id number] [place] [address] 14209- 2871 07 Aug, 2016 Hiatal hernia K44.9 and Actinic keratosis L57.0 [facility] [id number] [place] [address] 56009- 6431 Aug, [facility] [id number] [place] [address] 45154- 6245 Aug, Anxiety F41.9 [facility] [id number] [place] [address] 85800- 6307 July, [facility] [id number] [place] [address] 52727- 6011 July, Hiatal hernia K44.9 [facility] [id number] [place] [address] 88664- 3697 July, [facility] [id number] [place] [address] 54239- 1316 July, Anxiety F41.9 and Chronic pain syndrome G89.4 [facility] [id number] [place] [address] 38501- 2349 July, [facility] [id number] [place] [address] 50380- 8360 Jun, Chronic pain syndrome G89.4 [facility] [id number] [place] [address] 58664- 8026 Jun, Chronic pain syndrome G89.4 [facility] [id number] [place] [address] 32594- 4323 Jun, [facility] [id number] [place] [address] 01518- 8440 Jun, Anxiety F41.9 [facility] [id number] [place] [address] 90990- 3849 Jun, Allergic rhinitis, unspecified allergic rhinitis trigger, unspecified rhinitis seasonality J30.9 [facility] [id number] [place] [address] 45256- 4583 Jun, [facility] [id number] [place] [address] 85551- 7832 May, Chronic pain syndrome G89.4 [facility] [address] 62629- 8218 May, [facility] [id number] [place] [address] 15594- 0990 May, [facility] [address] 23316- 9911 May, Anxiety F41.9 [facility] [id number] [place] [address] 61823- 3284 May, Type 2 diabetes mellitus with diabetic [...] Anxiety F41.9 and Chronic pain syndrome G89.4 [facility] [id number] [place] [address] 85220- 1484 May, Essential hypertension I10 ; Type 2 diabetes mellitus with diabetic neuropathy, without long-term current use of insulin E11.40 ; Mixed hyperlipidemia E78.2 ; Chronic obstructive pulmonary disease, unspecified COPD type J44.9 and Chronic GERD K21.9 [place] [address] [place] [id number] [place] [address] [phone]- 1851 May, [place] [address] [place] [id number] [place] [address] [phone]- [phone] May, [place] [address] [place] [id number] [place] [address] [phone]- [phone] May, Type 2 diabetes mellitus with diabetic neuropathy, without long-term current use of insulin E11.40 [place] [address] [place] [id number] [place] [address] [phone]- 1172 May, Dementia without behavioral disturbance, unspecified dementia type F03.90 [place] [address] [place] [id number] [place] [address] [phone]- [phone] May, Type 2 diabetes mellitus with diabetic neuropathy, without long-term current use of insulin E11.40 ; Essential hypertension I10 ; Mixed hyperlipidemia E78.2 ; Chronic obstructive pulmonary disease, unspecified COPD type J44.9 ; Chronic GERD K21.9 and Osteoarthritis of both knees, unspecified osteoarthritis type M17.0 [place] [address] [place] [id number] [place] [address] [phone]- 7870 May, [place] [address] [phone]- 0255 May, [place] [address] [place] [id number] [place] [address] [phone]- [phone] May, Anxiety F41.9 and Unspecified symptoms and signs involving cognitive functions and awareness R41.9 [place] [address] [place] [id number] [place] [address] [id number]- 5350 May, [place] [address] [place] [id number] [place] [address] 06913- 6637 May, Type 2 diabetes mellitus with diabetic neuropathy, without long-term current use of insulin E11.40 ; Anxiety F41.9 and Chronic obstructive pulmonary disease, unspecified COPD type J44.9 [place] [address] [place] [id number] [place] [address] [phone] 0414 May, [facility] [id number] [place] [address] 54018- 7960 May, [facility] [id number] [place] [address] 15594- 5395 May, [facility] [id number] [place] [address] 74494- 0199 May, Chronic obstructive pulmonary disease, unspecified COPD type J44.9 [facility] [id number] [place] [address] 74474- 8314 Mar, [facility] [address] 12539- 0750 Mar, Arthritis of both knees M19.90 [facility] [place] [address] 51035- 1733 Mar, Type 2 diabetes mellitus with diabetic neuropathy, without long-term current use of insulin E11.40 [facility] [id number] [place] [address] 68642- 0443 Mar, [facility] [address] 73670- 5938 Mar, Neck pain M54.2 and Weakness generalized R53.1 [facility] [id number] [place] [address] 64819- 5013 Mar, [place] [address] 99422- 3202 Mar, Cervicalgia M54.2 and Impacted cerumen of both ears H61.23 [facility] [id number] [place] [address] 84712- 6091 Mar, [facility] [place] [id number] [place] [address] 89640- 2505 Mar, Type 2 diabetes mellitus with diabetic neuropathy, without long-term current use of insulin E11.40 [facility] [id number] [place] [address] 66369- 5883 Feb, [facility] [place] [id number] [place] [address] 19949- 7214 Feb, Hypoxia R09.02 [place] [address] 66053- 1540 23 Feb, 2016 [facility] [address] [place] [address] Feb, [facility] [id number] [place] [address] 92717- 3462 19 Feb, 2016 [facility] [id number] [place] [address] 54435- 8323 16 Feb, 2016 Type 2 diabetes mellitus with diabetic neuropathy, without long-term current use of insulin E11.40 [facility] [address], [place] [address] 6246 15 Feb, 2016 Osteoarthritis of both knees, unspecified osteoarthritis type M17.0 [facility] [id number] [place] [address] 67846- 1981 14 Feb, 2016 [facility] [id number] [place] [address] 15015- 8521 Feb, [facility] [address], [place] [address]- 0984 09 Feb, 2016 [facility] [id number] [place] [address] 18402- 2953 15 Jan, 2016 [facility] [address], [place] [address] 15 Jan, 2016 [facility] [id number] [place] [address] 71897- 5866 14 Jan, 2016 [facility] [address], [place] [address]- 6863 14 Jan, 2016 [facility] [id number] [place] [address] 87710- 4700 10 Jan, 2016 Tinea pedis of both feet B35.3 [facility] [address], [place] [address]- 8376 03 Jan, 2016 Type 2 diabetes mellitus [...] seasonality J30.9 and Encounter for immunization Z23 [facility] [address] 39916- 4012 Jan, [facility] [address] 81143- 8723 Jan, [place] [address] 30750- 7346 Dec, [place] [address] 14533- 3768 Dec, [facility] [address] 24055 -1239 Dec, Unspecified asthma with (acute) exacerbation J45.901 and Chronic obstructive pulmonary disease with (acute) exacerbation J44.1 [facility] [address] 79392- 4909 Dec, Arthritis of both knees M19.90 and Acute medial meniscus tear, right, initial encounter S83.241A [facility] [id number] [place] [address] 07157- 6230 Dec, [place] [address] 62033- 4800 Dec, [facility] [address] 78345- 8749 Dec, [facility] [id number] [place] [address] 00980- 0472 Dec, [facility] [address] 28862- 3418 11 Dec, 2015 History of pneumonia Z87.01 [facility] [address], [place] [address]- 8964 Dec, [facility] [id number] [place] [address] 25787- 5265 Dec, [facility] [id number] [place] [address] 29869- 2815 Dec, [facility] [id number] [place] [address] 66393- 0588 Dec, [facility] [id number] [place] [address] 06660- 6198 Dec, [facility] [id number] [place] [address] 42694- 5993 Dec, [facility] [id number] [place] [address] 92501- 9059 Nov, Cough R05 and Pneumonia due to infectious organism, unspecified laterality, unspecified part of lung J18.9 [facility] [id number] [place] [address] 11444- 0684 Nov, [facility] [id number] [place] [address] 25173- 3379 22 Nov, 2015 Type 2 diabetes mellitus [...] rhinitis trigger, unspecified rhinitis seasonality J30.9 [facility] [id number] [place] [address] 36752- 6028 12 Nov, 2015 IMMUNIZATIONS No Known Immunizations SOCIAL HISTORY Never Assessed REASON FOR VISIT Hosp admit follow-up call PLAN OF CARE VITAL SIGNS MEDICATIONS Medication Instructions Dosage Frequency Start Date End Date Duration Status PredniSONE 50 mg Orally Once a day 1 tablet 24h Oct, 05 days Active RESULTS No Results PROCEDURES No Known procedures INSTRUCTIONS MEDICATIONS ADMINISTERED No Known Medications MEDICAL (GENERAL) HISTORY Type Description Date Medical History hypertension Medical History chronic obstructive pulmonary disease (COPD)-wears 2L O2 per [place], uses [place] for home O2 Medical History Arthritis-knees and [...] TIA, [facility] 2014 Hospitalization History COPD exacerbation--[facility] 12/27/2015 [facility] - fall 02/2016 [facility] History [facility] pneumonia 11/2016 Hospitalization History COPD exacerbation - Dr Hartley Attending 12/2016 Hospitalization History Cough- [facility] [place] 04/10/2017 Hospitalization History [facility] - Possible Pneumonia 06/2017 Hospitalization History COPD hiatal hernia 08/2017
--- OUTSIDE RECORDS SUMMARY | 2018-01-05 15:50 | XMS REPORT ---
Author Author DEBBIE RIVERA Organization [facility] Address [address] [place] [address] Care Team Providers Care Pre Billing Clinician Name Role Phone DEBBIE RIVERA Unavailable PROBLEMS Type Condition ICD9-CM Code GHF96-UO Code Onset Dates Condition Status SNOMED Code Problem Chronic pain syndrome G89.4 Active 104167839 Problem Gastroesophageal reflux disease without esophagitis K21.9 Active 854635425 Problem Chronic GERD K21.9 Active 032459833 Problem Unspecified urinary incontinence R32 Active 538486554 Problem Elevated transaminase level R74.0 Active 744449593 Problem 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 Active 415170036 Problem 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 Active 838079524 Problem Nocturnal hypoxemia G47.34 Active 393598940 Problem 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 Active 812724307325741 Problem Recurrent major depressive disorder, in partial 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 Active 79923943 Problem Mixed hyperlipidemia E78.2 Active 280814608 Problem Essential hypertension I10 Active 15706004 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 Active 4146813 Problem 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 Active 453825750 Problem Chronic obstructive pulmonary disease, unspecified COPD type J44.9 Active 11722295 Problem Allergic rhinitis, unspecified allergic rhinitis trigger, unspecified rhinitis seasonality J30.9 Active 11837004 Problem Anxiety F41.9 Active 55252805 Problem Type 2 diabetes mellitus with diabetic neuropathy, without long-term current use of insulin E11.40 Active 13287078 Problem Hypoxia R09.02 Active 757548454 Problem Osteoarthritis of both knees, unspecified osteoarthritis type M17.0 Active 788911956 ALLERGIES No Information ENCOUNTERS Encounter Location Date Diagnosis [facility] [id number] [address] Nov, [facility] [id number] [place] [address] 24422- 9666 17 Nov, 2017 Alzheimers disease with early 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 [facility] [id number] [place] [address] 18662- 0775 14 Nov, 2017 [place] [address] 63358- 1415 12 Nov, 2017 Unspecified urinary incontinence R32 and Unspecified contact dermatitis due to other agents L25.8 [facility] [address] 197390- 4277 11 Nov, 2017 Chronic pain syndrome G89.4 [place] [place] [address] 847209- 4949 10 Nov, 2017 Type 2 diabetes mellitus with diabetic neuropathy, without long-term current use of insulin E11.40 [facility] [address] 12686- 0800 Nov, [facility] [address] 41156- 7275 Nov, Chronic obstructive pulmonary disease, unspecified COPD type J44.9 and Gastroesophageal reflux disease without esophagitis K21.9 [facility] [address] 76905- 9471 Oct, [facility] [id number] [place] [address] 88820- 5586 Oct, [facility] [id number] [place] [address] 90075- 8293 Oct, Chronic pain syndrome G89.4 [facility] [id number] [place] [address] 63925- 2457 Oct, Community acquired bacterial pneumonia J15.9 ; Allergic rhinitis, unspecified allergic rhinitis trigger, unspecified rhinitis seasonality J30.9 ; Type 2 diabetes mellitus with diabetic neuropathy, without long-term current use of insulin E11.40 ; Chronic GERD K21.9 and Chronic obstructive pulmonary disease, unspecified COPD type J44.9 [place] [address] [place] [address] 7[address] Oct, [facility] [id number] [place] [address] 55303- 4440 Oct, [facility] [id number] [place] [address] 56578- 5940 Oct, [facility] [id number] [place] [address] 03056- 5476 Oct, [facility] [id number] [place] [address] 21525- 3607 Oct, Essential hypertension I10 [facility] [id number] [place] [address] 34713- 2984 Oct, Type 2 diabetes mellitus with diabetic neuropathy, without long-term current use of insulin E11.40 ; Chronic obstructive pulmonary disease , unspecified COPD type J44.9 ; Mixed hyperlipidemia E78.2 ; Osteoarthritis of both knees, unspecified osteoarthritis type M17.0 ; 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 and Essential hypertension I10 [facility] [id number] [place] [address] 05214- 5864 Oct, [facility] [id number] [place] [address] 33056- 8498 Oct, [facility] [id number] [place] [address] 30342- 9606 Oct, Yeast dermatitis B37.2 [facility] [id number] [place] [address] 62949- 8166 Oct, Chronic pain syndrome G89.4 [facility] [id number] [place] [address] 96746- 8625 Sep, [facility] [id number] [place] [address] 78464- 0753 Sep, [facility] [id number] [place] [address] 32871- 9798 Sep, Alzheimers disease with early onset G30.0 and Chronic pain syndrome G89.4 [facility] [address] [address] 8760 Sep, COPD with acute exacerbation J44.1 [facility] [id number] [place] [address] 78883- 6603 Sep, [facility] [id number] [place] [address] 77489- 7714 Sep, [facility] [id number] [place] [address] 34171- 9637 Sep, Gastroesophageal reflux disease without esophagitis K21.9 [facility] [id number] [place] [address] 95561- 9781 Aug, [facility] [id number] [place] [address] 70515- 8294 Aug, [facility] [id number] [place] [address] 02285- 7331 Aug, 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 ; Hospital discharge follow-up Z09 ; Chronic obstructive pulmonary disease, unspecified COPD type J44.9 and Chronic GERD K21.9 [facility] [id number] [place] [address] 37025- 2869 Aug, Chronic pain syndrome G89.4 [facility] [address] [address] 2687 Aug, [facility] [id number] [place] [address] 56122- 6608 Aug, [facility] [id number] [place] [address] 08433- 7823 Aug, Chronic pain syndrome G89.4 and Alzheimers disease with early onset G30.0 [facility] [address] [address] 2427 Aug, Type 2 diabetes mellitus with diabetic neuropathy, without long-term current use of insulin E11.40 ; Chronic obstructive pulmonary disease , unspecified COPD type J44.9 ; Chronic GERD K21.9 and 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 [facility] [id number] [place] [address] 22340- 6490 Aug, [facility] [id number] [place] [address] 04372- 9836 Aug, Essential hypertension I10 and Cough R05 [facility] [address] 74351- 4157 Aug, [facility] [id number] [place] [address] 21040- 4832 Aug, [facility] [id number] [place] [address] 58451- 8431 Aug, [facility] [id number] [place] [address] 49186- 2116 Aug, Chronic pain syndrome G89.4 [facility] [id number] [place] [address] 18202- 7204 Aug, [facility] [id number] [place] [address] 21581- 7119 Aug, [facility] [id number] [place] [address] 16584- 9908 July, Gastroesophageal reflux disease without esophagitis K21.9 [facility] [id number] [place] [address] 15760- 1738 July, [facility] [id number] [place] [address] 16890- 1462 July, [facility] [id number] [place] [address] 47405- 1909 July, [facility] [id number] [place] [address] 43467- 8282 July, Essential hypertension I10 and Chronic pain syndrome G89.4 [facility] [id number] [place] [address] 28378- 3495 July, Gastroesophageal reflux disease without esophagitis K21.9 [facility] [id number] [place] [address] 01072- 1797 July, Alzheimers disease with early onset G30.0 [facility] [id number] [place] [address] 98765- 9813 July, Chronic obstructive pulmonary disease, unspecified COPD type J44.9 ; Nocturnal cough R05 ; 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 and Recurrent major depressive disorder, in partial 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 [facility] [id number] [place] [address] 83945- 0023 July, [place] [address] 84835- 8154 July, Type 2 diabetes mellitus with diabetic neuropathy, without long-term current use of insulin E11.40 [place] [address] 79941- 4536 July, Nocturnal hypoxemia G47.34 ; Chronic obstructive pulmonary disease, unspecified COPD type J44.9 and Nocturnal cough R05 [place] [id number] [place] [address] 06618- 7288 July, [facility] [id number] [place] [address] 56285- 5162 July, [facility] [id number] [place] [address] 70718- 8224 July, [facility] [id number] [place] [address] 54232- 7732 Jun, Chronic pain syndrome G89.4 [place] [address] 08671- 1102 Jun, [place] [place] [id number] [place] [address] 32430- 2279 Jun, [facility] [place] [id number] [place] [address] 64388- 3516 Jun, Alzheimers disease with early onset G30.0 [facility] [id number] [place] [address] 95447- 7523 Jun, [facility] [id number] [place] [address] 53411- 0762 Jun, Gastroesophageal reflux disease without esophagitis K21.9 [place] [address] 23526- 1103 Jun, Allergic rhinitis, unspecified allergic rhinitis trigger, unspecified rhinitis seasonality J30.9 [facility] [id number] [place] [address] 62289- 4713 Jun, Chronic pain syndrome G89.4 [facility] [place] [id number] [place] [address] 99693- 1187 May, [place] [place] [address] 34738- 3785 May, COPD with acute exacerbation J44.1 [facility] [id number] [place] [address] 01859- 1042 14 May, 2017 Type 2 diabetes mellitus with diabetic neuropathy, without long-term current use of insulin E11.40 ; COPD with acute exacerbation J44.1 ; Hypoxia R09.02 ; Chronic pain syndrome G89.4 ; Yeast dermatitis B37.2 ; Alzheimers disease with early onset G30.0 and 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 [place] [id number] [place] [address] 86767- 2815 May, [facility] [place] [id number] [place] [address] 23400- 2991 May, Chronic pain syndrome G89.4 [facility] [id number] [place] [address] 93461- 3482 May, [facility] [id number] [place] [address] 87503- 2879 May, [place] [address] [address]- 4739 19 May, 2017 Mixed hyperlipidemia E78.2 [facility] [address] [address]- 5874 15 May, 2017 Chronic pain syndrome G89.4 [facility] [address] [address]- 2402 May, Anxiety F41.9 and Chronic pain syndrome G89.4 [facility] [address] [address]- 9496 Mar, [facility] [id number] [place] [address] 12517- 1792 Mar, [facility] [id number] [place] [address] 92494- 6978 Mar, [facility] [id number] [place] [address] 85026- 4586 Mar, [facility] [address] [address]- 1288 Mar, [facility] [id number] [place] [address] 73313- 0487 Mar, Anxiety F41.9 and Chronic pain syndrome G89.4 [facility] [address] [address]- 4568 Mar, Medicare annual wellness visit, initial Z00.00 [...] Actinic keratosis L57.0 [facility] [id number] [place] [address] 71342- 0865 Mar, [facility] [id number] [place] [address] 80981- 9158 Mar, Chronic pain syndrome G89.4 [facility] [id number] [place] [address] 39668- 8038 Feb, [facility] [id number] [place] [address] 31750- 8757 Feb, Chronic pain syndrome G89.4 [facility] [id number] [place] [address] 79579- 6106 Feb, [facility] [id number] [place] [address] 47552- 6312 Feb, [facility] [id number] [place] [address] 91617- 6602 Feb, Anxiety F41.9 [facility] [id number] [place] [address] 81783- 9819 Feb, [facility] [id number] [place] [address] 79930- 6509 Feb, Chronic pain syndrome G89.4 [facility] [id number] [place] [address] 42225- 8734 Jan, Essential hypertension I10 [facility] [id number] [place] [address] 61890- 9328 Jan, Chronic pain syndrome G89.4 [facility] [id number] [place] [address] 69162- 7118 Jan, [facility] [id number] [place] [address] 47559- 4186 Jan, Anxiety F41.9 [facility] [id number] [place] [address] 74859- 6689 Jan, Encounter for immunization Z23 and Community acquired pneumonia, unspecified laterality J18.9 [facility] [address] [place] [address] 18733- 3683 Jan, Type 2 diabetes mellitus with diabetic neuropathy, without long-term current use of insulin E11.40 [facility] [id number] [place] [address] 51243- 0746 Dec, Anxiety F41.9 and Chronic pain syndrome G89.4 [facility] [address] 88182- 9898 Dec, Chronic pain syndrome G89.4 and Essential hypertension I10 [facility] [address] 60363- 9641 Dec, [facility] [id number] [place] [address] 38493- 3765 Dec, Anxiety F41.9 [facility] [id number] [place] [address] 64905- 9937 Dec, [facility] [id number] [place] [address] 24162- 4200 Dec, Type 2 diabetes mellitus with diabetic neuropathy, without long-term current use of insulin E11.40 ; Lactic acidosis E87.2 ; Chronic obstructive pulmonary disease, unspecified COPD type J44.9 and Encounter for immunization Z23 [facility] [id number] [place] [address] 76356- 0289 Dec, Chronic pain syndrome G89.4 [facility] [id number] [place] [address] 63530- 7491 Nov, [facility] [id number] [place] [address] 99864- 8856 Nov, Chronic pain syndrome G89.4 [facility] [id number] [place] [address] 86329- 9943 Nov, [facility] [id number] [place] [address] 37785- 3382 Nov, [facility] [address], [place] [address]- 2833 Nov, Anxiety F41.9 [facility] [id number] [place] [address] 82928- 3344 Nov, Anxiety F41.9 [facility] [id number] [place] [address] 98215- 8932 Nov, [facility] [id number] [place] [address] 95334- 7918 Nov, [facility] [id number] [place] [address] 79777- 8442 Nov, [facility] [id number] [place] [address] 74519- 1391 Oct, [facility] [id number] [place] [address] 48159- 9733 Oct, [facility] [id number] [place] [address] 57969- 6550 Oct, [facility] [id number] [place] [address] 03803- 2064 Oct, Essential hypertension I10 and Chronic pain syndrome G89.4 [facility] [id number] [place] [address] 24929- 1555 Oct, Anxiety F41.9 [facility] [id number] [place] [address] 10517- 7363 Oct, [facility] [id number] [place] [address] 09870- 3881 Oct, Chronic pain syndrome G89.4 [facility] [id number] [place] [address] 28804 -4189 Oct, Sore throat J02.9 and Acute nasopharyngitis (common cold) J00 [facility] [id number] [place] [address] 31187- 3911 Sep, [facility] [address] [address]- 5779 Sep, COPD exacerbation J44.1 [facility] [id number] [place] [address] 17854- 4526 Sep, Chronic pain syndrome G89.4 [facility] [id number] [place] [address] 15061- 3756 Sep, Essential hypertension I10 [facility] [id number] [place] [address] 95207- 2576 Sep, [facility] [id number] [place] [address] 06605- 9273 Sep, [facility] [id number] [place] [address] 43544- 9099 Sep, Anxiety F41.9 [facility] [id number] [place] [address] 39104- 1215 Sep, Chronic pain syndrome G89.4 [facility] [id number] [place] [address] 27821- 5659 Sep, [facility] [id number] [place] [address] 01532- 5569 Aug, Acute seasonal allergic rhinitis, unspecified trigger J30.2 ; Hiatal hernia K44.9 and Chronic pain syndrome G89.4 [facility] [id number] [address]- 4156 Aug, [facility] [address] [address]- 2543 Aug, [facility] [id number] [place] [address] 88255- 8464 Aug, Chronic obstructive pulmonary disease, unspecified COPD type J44.9 [facility] [id number] [address]- 5395 Aug, Anxiety F41.9 [facility] [id number] [place] [address] 92688- 9637 08 Aug, 2016 Chronic pain syndrome G89.4 [facility] [id number] [place] [address] 08272- 2068 07 Aug, 2016 Hiatal hernia K44.9 and Actinic keratosis L57.0 [facility] [id number] [place] [address] 17969- 7102 Aug, [facility] [id number] [place] [address] 52339- 3043 Aug, Anxiety F41.9 [facility] [id number] [place] [address] 43811- 1358 July, [facility] [id number] [place] [address] 25706- 6763 July, Hiatal hernia K44.9 [facility] [id number] [place] [address] 96018- 5158 July, [facility] [id number] [place] [address] 61895- 7824 July, Anxiety F41.9 and Chronic pain syndrome G89.4 [facility] [id number] [place] [address] 50247- 7446 July, [facility] [id number] [place] [address] 38235- 9182 Jun, Chronic pain syndrome G89.4 [facility] [id number] [place] [address] 60632- 1199 Jun, Chronic pain syndrome G89.4 [facility] [id number] [place] [address] 42736- 2585 Jun, [facility] [id number] [place] [address] 60154- 9011 Jun, Anxiety F41.9 [facility] [id number] [place] [address] 50746- 7749 Jun, Allergic rhinitis, unspecified allergic rhinitis trigger, unspecified rhinitis seasonality J30.9 [facility] [id number] [place] [address] 74575- [phone] Jun, [facility] [id number] [place] [address] 31825- 5840 May, Chronic pain syndrome G89.4 [place] [address] [address]- [address]011 May, [place] [place] [id number] [place] [address] 37428- 5810 May, [place] [address] 90933- 6957 May, Anxiety F41.9 [facility] [place] [id number] [place] [address] 57981- 5979 May, Type 2 diabetes mellitus with diabetic [...] Anxiety F41.9 and Chronic pain syndrome G89.4 [place] [id number] [place] [address] 74265- 6221 May, Essential hypertension I10 ; Type 2 diabetes mellitus with diabetic neuropathy, without long-term current use of insulin E11.40 ; Mixed hyperlipidemia E78.2 ; Chronic obstructive pulmonary disease, unspecified COPD type J44.9 and Chronic GERD K21.9 [place] [id number] [place] [address] 99476- 0886 May, [facility] [place] [id number] [place] [address] 51280- 6620 May, [place] [id number] [place] [address] 40681- 0387 May, Type 2 diabetes mellitus with diabetic neuropathy, without long-term current use of insulin E11.40 [facility] [id number] [place] [address] 05656- 1058 May, Dementia without behavioral disturbance, unspecified dementia type F03.90 [place] [id number] [place] [address] 54827- 3020 May, Type 2 diabetes mellitus with diabetic neuropathy, without long-term current use of insulin E11.40 ; Essential hypertension I10 ; Mixed hyperlipidemia E78.2 ; Chronic obstructive pulmonary disease, unspecified COPD type J44.9 ; Chronic GERD K21.9 and Osteoarthritis of both knees, unspecified osteoarthritis type M17.0 [facility] [id number] [place] [address] 88179- 2575 May, [place] [address] [address]61- 5276 May, [place] [id number] [place] [address] 04092- 4289 May, Anxiety F41.9 and Unspecified symptoms and signs involving cognitive functions and awareness R41.9 [facility] [id number] [place] [address] 71856- 0623 May, [place] [place] [id number] [place] [address] 45110- 3269 May, Type 2 diabetes mellitus with diabetic neuropathy, without long-term current use of insulin E11.40 ; Anxiety F41.9 and Chronic obstructive pulmonary disease, unspecified COPD type J44.9 [facility] [place] [id number] [place] [address] 89479- 0871 May, [facility] [place] [id number] [place] [address] 93460- 3775 May, [place] [id number] [place] [address] 57697- 9537 May, [place] [id number] [place] [address] 10562- 5174 May, Chronic obstructive pulmonary disease, unspecified COPD type J44.9 [place] [id number] [place] [address] 10874- 6003 Mar, [place] [address] [address]- 1978 Mar, Arthritis of both knees M19.90 [place] [address] 88474- 8812 Mar, Type 2 diabetes mellitus with diabetic neuropathy, without long-term current use of insulin E11.40 [facility] [place] [id number] [place] [address] 44881- 9095 Mar, [place] [address] 21906- 6203 Mar, Neck pain M54.2 and Weakness generalized R53.1 [place] [id number] [place] [address] 02112- 6372 Mar, [place] [address] 45309- 4274 Mar, Cervicalgia M54.2 and Impacted cerumen of both ears H61.23 [place] [id number] [place] [address] 01644- 8363 Mar, [place] [id number] [place] [address] 95853- 8784 Mar, Type 2 diabetes mellitus with diabetic neuropathy, without long-term current use of insulin E11.40 [facility] [place] [id number] [place] [address] 12422- 9558 Feb, [place] [id number] [place] [address] 89499- 7770 Feb, Hypoxia R09.02 [place] [address] 63082- 1587 23 Feb, 2016 [facility] [id number] [address] Feb, [facility] [id number] [place] [address] 25993- 3386 19 Feb, 2016 [facility] [id number] [place] [address] 85291- 7232 16 Feb, 2016 Type 2 diabetes mellitus with diabetic neuropathy, without long-term current use of insulin E11.40 [facility] [id number] [address] 6397 15 Feb, 2016 Osteoarthritis of both knees, unspecified osteoarthritis type M17.0 [facility] [id number] [place] [address] 39898- 0085 14 Feb, 2016 [facility] [id number] [place] [address] 38660- 7148 Feb, [facility] [id number] [address] 4938 09 Feb, 2016 [facility] [id number] [place] [address] 92842- 6528 15 Jan, 2016 [facility] [id number] [address] 8391 15 Jan, 2016 [facility] [id number] [place] [address] 98070- 4975 14 Jan, 2016 [facility] [id number] [address]- 3076 14 Jan, 2016 [facility] [id number] [place] [address] 62999- 1155 10 Jan, 2016 Tinea pedis of both feet B35.3 [facility] [id number] [address]- 6533 03 Jan, 2016 Type 2 diabetes mellitus [...] for immunization Z23 [facility] [address] 18725- 7996 Jan, [facility] [address] 89380- 5354 Jan, [place] [address] 94062- 8957 Dec, [place] [address] 24446- 2877 Dec, [facility] [address] 90428 -4037 Dec, Unspecified asthma with (acute) exacerbation J45.901 and Chronic obstructive pulmonary disease with (acute) exacerbation J44.1 [place] [address] 53035- 7935 Dec, Arthritis of both knees M19.90 and Acute medial meniscus tear, right, initial encounter S83.241A [facility] [id number] [place] [address] 34179- 5710 Dec, [place] [address] 24389- 3514 Dec, [facility] [address] 53380- 7119 Dec, [facility] [id number] [place] [address] 96781- 3904 Dec, [facility] [address] 40851- 9437 11 Dec, 2015 History of pneumonia Z87.01 [facility] [id number] [address] Dec, [facility] [id number] [place] [address] 06587- 8949 Dec, [facility] [id number] [place] [address] 35270- 1949 Dec, [facility] [id number] [place] [address] 68841- 9211 Dec, [facility] [id number] [place] [address] 47727- 9714 Dec, [facility] [id number] [place] [address] 56226- 5568 Dec, [place] [id number] [place] [address] 91341- 9290 Nov, Cough R05 and Pneumonia due to infectious organism, unspecified laterality, unspecified part of lung J18.9 [place] [id number] [place] [address] 99981- 7006 Nov, [place] [id number] [place] [address] 71264- 1849 22 Nov, 2015 Type 2 diabetes mellitus [...] rhinitis seasonality J30.9 [facility] [id number] [place] [address] 01554- 4062 12 Nov, 2015 IMMUNIZATIONS No Known Immunizations SOCIAL HISTORY Never Assessed REASON FOR VISIT Medication refill request PLAN OF CARE VITAL SIGNS MEDICATIONS Medication Instructions Dosage Frequency Start Date End Date Duration Status Triamcinolone Acetonide 0.1 % Externally Twice a day to as needed 1 application to affected area Jan, 30 days Active RESULTS No Results PROCEDURES No Known procedures INSTRUCTIONS MEDICATIONS ADMINISTERED No Known Medications MEDICAL (GENERAL) HISTORY Type Description Date Medical History hypertension Medical History chronic obstructive pulmonary disease (COPD)-wears 2L O2 per [place], uses [place] for home O2 Medical History Arthritis-knees [...] TIA, [facility] 2014 Hospitalization History COPD exacerbation--[facility] 12/27/2015 [facility] - [facility] 02/2016 [facility] pneumonia 11/2016 Hospitalization History COPD exacerbation - Dr Hartley Attending 12/2016 Hospitalization History Cough- [facility] [place] 04/10/2017 [facility] - Possible Pneumonia 06/2017 Hospitalization History COPD hiatal hernia 08/2017
--- OUTSIDE RECORDS SUMMARY | 2018-01-05 15:51 | XMS REPORT ---
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 Role Phone DEBBIE RIVERA Unavailable PROBLEMS Type Condition ICD9-CM Code [id number] Code Onset Dates Condition Status SNOMED Code Problem Chronic pain syndrome G89.4 Active 026315046 Problem Gastroesophageal reflux disease without esophagitis K21.9 Active 005575492 Problem Chronic GERD K21.9 Active 349794042 Problem Unspecified urinary incontinence R32 Active 053477359 Problem Elevated transaminase level R74.0 Active 869609313 Problem 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 Active 582333652 Problem 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 Active 460186507 Problem Nocturnal hypoxemia G47.34 Active 655918108 Problem 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 Active 567340400724483 Problem Recurrent major depressive disorder, in partial 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 Active 28476376 Problem Mixed hyperlipidemia E78.2 Active 251003558 Problem Essential hypertension I10 Active 83323359 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 Active 6137650 Problem 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 Active 174134933 Problem Chronic obstructive pulmonary disease, unspecified COPD type J44.9 Active 76403102 Problem Allergic rhinitis, unspecified allergic rhinitis trigger, unspecified rhinitis seasonality J30.9 Active 65821129 Problem Anxiety F41.9 Active 58962901 Problem Type 2 diabetes mellitus with diabetic neuropathy, without long-term current use of insulin E11.40 Active 97659467 Problem Hypoxia R09.02 Active 607776371 Problem Osteoarthritis of both knees, unspecified osteoarthritis type M17.0 Active 080692242 ALLERGIES Substance Reaction Event Type Date Status Hydrocodone-Acetaminophen Unknown Drug Allergy Oct, Active Codeine Sulfate Unknown Drug Allergy Oct, Active Aspirin Unknown Drug Allergy Oct, Active ENCOUNTERS Encounter Location Date Diagnosis [facility] [address] [facility] [id number] [place] [address] 94013- 7817 26 Nov, 2017 [place] [address] [place] [id number] [place] [address] 37442- 0818 17 Nov, 2017 Alzheimers disease with early onset G30.0 [place] [address] [place] [id number] [place] [address] 81159- 0929 14 Nov, 2017 [place] [address] [place] [id number] [place] [address] 25232- 5923 12 Nov, 2017 Unspecified urinary incontinence R32 and Unspecified contact dermatitis due to other agents L25.8 [place] [address] [place] [id number] [place] [address] 95640- 6432 11 Nov, 2017 Chronic pain syndrome G89.4 [place] [address] [place] [id number] [place] [address] 01760- 8378 10 Nov, 2017 Type 2 diabetes mellitus with diabetic neuropathy, without long-term current use of insulin E11.40 [place] [address] [place] [id number] [place] [address] 05942- 3304 Nov, [place] [address] [place] [id number] [place] [address] 04765- 9857 Nov, Chronic obstructive pulmonary disease, unspecified COPD type J44.9 and Gastroesophageal reflux disease without esophagitis K21.9 [place] [address] [place] [id number] [place] [address] 12237- 1858 Oct, [place] [id number] [place] [address] 37739- 2636 Oct, [place] [id number] [place] [address] 79476- 0937 Oct, Chronic pain syndrome G89.4 [place] [id number] [place] [address] 22480- 0888 Oct, Community acquired bacterial pneumonia J15.9 ; Allergic rhinitis, unspecified allergic rhinitis trigger, unspecified rhinitis seasonality J30.9 ; Type 2 diabetes mellitus with diabetic neuropathy, without long-term current use of insulin E11.40 ; Chronic GERD K21.9 and Chronic obstructive pulmonary disease, unspecified COPD type J44.9 [facility] [address] [address] 9082 Oct, [facility] [id number] [place] [address] 81977- 1905 Oct, [facility] [id number] [place] [address] 13681- 9497 Oct, [facility] [id number] [place] [address] 09551- 0457 Oct, [facility] [id number] [place] [address] 84052- 6395 Oct, Essential hypertension I10 [facility] [address] [place] [id number] [place] [address] 79702- 3499 Oct, Type 2 diabetes mellitus with diabetic neuropathy, without long-term current use of insulin E11.40 ; Chronic obstructive pulmonary disease , unspecified COPD type J44.9 ; Mixed hyperlipidemia E78.2 ; Osteoarthritis of both knees, unspecified osteoarthritis type M17.0 ; Alzheimers disease with early onset 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 and Essential hypertension I10 [facility] [id number] [place] [address] 88261- 9670 Oct, [facility] [id number] [place] [address] 00385- 3836 Oct, [facility] [id number] [place] [address] 44992- 1040 Oct, Yeast dermatitis B37.2 [facility] [id number] [place] [address] 13155- 5923 Oct, Chronic pain syndrome G89.4 [facility] [id number] [place] [address] 42495- 8600 Sep, [facility] [id number] [place] [address] 74488- 5431 Sep, [facility] [address] [address]- 8246 Sep, Alzheimers disease with early onset G30.0 and Chronic pain syndrome G89.4 [facility] [id number] [place] [address] 40457- 4495 Sep, COPD with acute exacerbation J44.1 [facility] [id number] [place] [address] 91692- 2945 Sep, [facility] [id number] [place] [address] 59621- 5109 Sep, [facility] [id number] [place] [address] 72167- 9110 Sep, Gastroesophageal reflux disease without esophagitis K21.9 [facility] [id number] [place] [address] 28174- 5837 Aug, [facility] [address] [place] [id number] [place] [address] 06611- 4379 Aug, [facility] [id number] [place] [address] 92837- 0601 Aug, 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 ; Hospital discharge follow-up Z09 ; Chronic obstructive pulmonary disease, unspecified COPD type J44.9 and Chronic GERD K21.9 [facility] [address] [address]- 9824 Aug, Chronic pain syndrome G89.4 [facility] [address], [place] [address]- 2125 Aug, [facility] [address] [address]- 8295 Aug, [facility] [address] [place] [address]- 8066 Aug, Chronic pain syndrome G89.4 and Alzheimers disease with early onset G30.0 [facility] [id number] [place] [address] 84588- 9519 Aug, Type 2 diabetes mellitus with diabetic neuropathy, without long-term current use of insulin E11.40 ; Chronic obstructive pulmonary disease , unspecified COPD type J44.9 ; Chronic GERD K21.9 and 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 [facility] [id number] [place] [address] 68444- 3633 Aug, [facility] [address] 52730- 4822 Aug, Essential hypertension I10 and Cough R05 [facility] [address] [id number] [place] [address] 74789- 3541 Aug, [facility] [id number] [place] [address] 07972- 1412 Aug, [facility] [id number] [place] [address] 87387- 1464 Aug, [facility] [id number] [place] [address] 62719- 3911 Aug, Chronic pain syndrome G89.4 [facility] [address] [id number] [place] [address] 85939- 6803 Aug, [facility] [address] [address] [id number] [place] [address] 26748- 1374 Aug, [facility] [id number] [place] [address] 20516- 6410 July, Gastroesophageal reflux disease without esophagitis K21.9 [facility] [id number] [place] [address] 92151- 5940 July, [facility] [id number] [place] [address] 43377- 6694 July, [facility] [address] [id number] [place] [address] 91860- 2046 July, [facility] [id number] [place] [address] 29731- 7535 July, Essential hypertension I10 and Chronic pain syndrome G89.4 [facility] [address] [id number] [place] [address] 01225- 9719 July, Gastroesophageal reflux disease without esophagitis K21.9 [facility] [address] [id number] [place] [address] 11739- 1644 July, Alzheimers disease with early onset G30.0 [place] [address] 14728- 8522 July, Chronic obstructive pulmonary disease, unspecified COPD type J44.9 ; Nocturnal cough R05 ; 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 and Recurrent major depressive disorder, in partial 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 [place] [address] [place] [id number] [place] [address] 41350- 1434 July, [place] [address] [place] [address] [id number] [place] [address] 43968- 7187 July, Type 2 diabetes mellitus with diabetic neuropathy, without long-term current use of insulin E11.40 [place] [address] [place] [id number] [place] [address] 34988- 5493 July, Nocturnal hypoxemia G47.34 ; Chronic obstructive pulmonary disease, unspecified COPD type J44.9 and Nocturnal cough R05 [place] [address] [place] [id number] [place] [address] 96163- 0515 July, [place] [address] [place] [address] [id number] [place] [address] 39398- 8605 July, [facility] [address] [address] [id number] [place] [address] 97234- 6471 July, [place] [address] [place] [address] [id number] [place] [address] 54203- 3239 Jun, Chronic pain syndrome G89.4 [facility] [id number] [place] [address] 66571- 2406 Jun, [place] [address] [address] [id number] [place] [address] 00213- 4520 Jun, [place] [address], [place] [address]- 7120 Jun, Alzheimers disease with early onset G30.0 [place] [address] [place] [id number] [place] [address] 28295- 4184 Jun, [place] [address] [address] [id number] [place] [address] 91872- 4168 Jun, Gastroesophageal reflux disease without esophagitis K21.9 [place] [address] [id number] [place] [address] 25080- 1095 Jun, Allergic rhinitis, unspecified allergic rhinitis trigger, unspecified rhinitis seasonality J30.9 [place] [address] [place] [id number] [place] [address] 83336- 4854 Jun, Chronic pain syndrome G89.4 [place] [address] [place] [address] [id number] [place] [address] 05188- 9911 May, [place] [address] [place] [address] [id number] [place] [address] 35912- 0257 May, COPD with acute exacerbation J44.1 [place] [address] [place] [id number] [place] [address] 40130- 9505 14 May, 2017 Type 2 diabetes mellitus with diabetic neuropathy, without long-term current use of insulin E11.40 ; COPD with acute exacerbation J44.1 ; Hypoxia R09.02 ; Chronic pain syndrome G89.4 ; Yeast dermatitis B37.2 ; Alzheimers disease with early onset G30.0 and 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 [place] [id number] [place] [address] 85810- 1024 May, [place] [address] [place] [id number] [place] [address] 01892- 8733 May, Chronic pain syndrome G89.4 [place] [address] [place] [id number] [place] [address] 72280- 7389 May, [place] [id number] [place] [address] 40232- 5030 May, [facility] [id number] [place] [address] 17714- 2635 May, Mixed hyperlipidemia E78.2 [facility] [address] [id number] [place] [address] 68044- 2525 May, Chronic pain syndrome G89.4 [facility] [address] [place] [id number] [place] [address] 29990- 8698 May, Anxiety F41.9 and Chronic pain syndrome G89.4 [place] [address] [place] [id number] [place] [address] 63903- 6719 Mar, [facility] [address] [place] [id number] [place] [address] 25973- 2436 Mar, [facility] [address] [place] [id number] [place] [address] 85580- 9620 Mar, [facility] [id number] [place] [address] 80967- 7209 Mar, [facility] [id number] [place] [address] 82081- 4779 Mar, [facility] [address] [id number] [place] [address] 06225- 4680 Mar, Anxiety F41.9 and Chronic pain syndrome G89.4 [facility] [address] [place] [id number] [place] [address] 77772- 2509 Mar, Medicare annual wellness visit, initial Z00.00 [...] Hiatal hernia K44.9 and Actinic keratosis L57.0 [facility] [id number] [place] [address] 46039 2546 Mar, [facility] [id number] [place] [address] 91561 2546 Mar, Chronic pain syndrome G89.4 [facility] [id number] [place] [address] 87548 2546 Feb, [facility] [id number] [place] [address] 21858 2546 Feb, Chronic pain syndrome G89.4 [facility] [id number] [place] [address] 16167 2546 Feb, [facility] [id number] [place] [address] 77754- 8995 Feb, [facility] [id number] [place] [address] 08559 2545 Feb, Anxiety F41.9 [facility] [id number] [place] [address] 80858- 8543 Feb, [facility] [id number] [place] [address] 80010 2543 Feb, Chronic pain syndrome G89.4 [facility] [id number] [place] [address] 20098 2544 Jan, Essential hypertension I10 [facility] [id number] [place] [address] 87474 2544 Jan, Chronic pain syndrome G89.4 [facility] [address] [id number] [place] [address] 19534 2546 Jan, [facility] [id number] [place] [address] 12200- 0209 Jan, Anxiety F41.9 [facility] [id number] [place] [address] 85273- 9519 Jan, Encounter for immunization Z23 and Community acquired pneumonia, unspecified laterality J18.9 [place] [address] 06289- 3766 Jan, Type 2 diabetes mellitus with diabetic neuropathy, without long-term current use of insulin E11.40 [place] [address] 79858- 9988 Dec, Anxiety F41.9 and Chronic pain syndrome G89.4 [place] [address] 73445- 2051 Dec, Chronic pain syndrome G89.4 and Essential hypertension I10 [address] 91454- 8759 Dec, [place] [address] 00562- 4592 Dec, Anxiety F41.9 [place] [address] 59086- 5225 Dec, [place] [address] 22868- 8082 Dec, Type 2 diabetes mellitus with diabetic neuropathy, without long-term current use of insulin E11.40 ; Lactic acidosis E87.2 ; Chronic obstructive pulmonary disease, unspecified COPD type J44.9 and Encounter for immunization Z23 [place] [address] [place] [id number] [place] [address] 65360- 7764 Dec, Chronic pain syndrome G89.4 [place] [address] 70718- 2576 Nov, [place] [address] 67729- 9081 Nov, Chronic pain syndrome G89.4 [place] [address] 45614- 1382 Nov, [facility] [address], [place] [address]- 7434 Nov, [facility] [id number] [place] [address] 04230- 2804 Nov, Anxiety F41.9 [facility] [address] [id number] [place] [address] 73920- 9346 Nov, Anxiety F41.9 [facility] [address] [id number] [place] [address] 50344- 0483 Nov, [facility] [id number] [place] [address] 33216- 7565 Nov, [facility] [id number] [place] [address] 45738- 7723 Nov, [facility] [address] [id number] [place] [address] 32370- 3699 Oct, [facility] [id number] [place] [address] 80472- 1645 Oct, [facility] [id number] [place] [address] 02099- 9106 Oct, [facility] [id number] [place] [address] 61340- 5528 Oct, Essential hypertension I10 and Chronic pain syndrome G89.4 [facility] [id number] [place] [address] 18462- 6679 Oct, Anxiety F41.9 [facility] [id number] [place] [address] 22735- 2774 Oct, [facility] [id number] [place] [address] 56457- 1868 Oct, Chronic pain syndrome G89.4 [facility] [id number] [place] [address] 23594 -5960 Oct, Sore throat J02.9 and Acute nasopharyngitis (common cold) J00 [facility] [address], [place] [address]- 3954 Sep, [facility] [id number] [place] [address] 83612- 9896 Sep, COPD exacerbation J44.1 [facility] [id number] [place] [address] 05426- 8396 Sep, Chronic pain syndrome G89.4 [facility] [id number] [place] [address] 65141- 4016 Sep, Essential hypertension I10 [facility] [id number] [place] [address] 42538- 9926 Sep, [facility] [id number] [place] [address] 90643- 4016 Sep, [facility] [id number] [place] [address] 13974- 7448 Sep, Anxiety F41.9 [facility] [id number] [place] [address] 56674- 9419 Sep, Chronic pain syndrome G89.4 [facility] [id number] [place] [address] 04508- 7121 Sep, [facility] [id number] [place] [address] 11062- 2626 Aug, Acute seasonal allergic rhinitis, unspecified trigger J30.2 ; Hiatal hernia K44.9 and Chronic pain syndrome G89.4 [facility] [address], [place] [address]- 7864 Aug, [facility] [id number] [place] [address] 82360- 7626 Aug, [facility] [id number] [place] [address] 51707- 1935 Aug, Chronic obstructive pulmonary disease, unspecified COPD type J44.9 [facility] [address], [place] [address]- 6548 14 Aug, 2016 Anxiety F41.9 [facility] [id number] [place] [address] 30868- 9764 08 Aug, 2016 Chronic pain syndrome G89.4 [facility] [id number] [place] [address] 34357- 3357 07 Aug, 2016 Hiatal hernia K44.9 and Actinic keratosis L57.0 [facility] [id number] [place] [address] 39011- 9183 07 Aug, 2016 [facility] [id number] [place] [address] 44249- 4990 Aug, Anxiety F41.9 [facility] [id number] [place] [address] 61315- 0097 July, [facility] [id number] [place] [address] 94645- 5597 July, Hiatal hernia K44.9 [facility] [id number] [place] [address] 43322- 8213 July, [facility] [id number] [place] [address] 31931- 2742 July, Anxiety F41.9 and Chronic pain syndrome G89.4 [facility] [id number] [place] [address] 21630- 0342 July, [facility] [id number] [place] [address] 38944- 7915 Jun, Chronic pain syndrome G89.4 [facility] [id number] [place] [address] 61133- 6378 Jun, Chronic pain syndrome G89.4 [facility] [id number] [address] Jun, [facility] [id number] [place] [address] 83103- 7249 Jun, Anxiety F41.9 [facility] [id number] [address] Jun, Allergic rhinitis, unspecified allergic rhinitis trigger, unspecified rhinitis seasonality J30.9 [facility] [id number], [place] [address] Jun, [facility] [id number] [place] [address] 91469- 6115 May, Chronic pain syndrome G89.4 [place] [id number] [place] [address] 76472- 4071 May, [place] [id number] [place] [address] 73153- 1816 May, [place] [id number] [place] [address] 38127- 0862 May, Anxiety F41.9 [place] [place] [id number] [place] [address] 05283- 3796 May, Type 2 diabetes mellitus with diabetic [...] Anxiety F41.9 and Chronic pain syndrome G89.4 [facility] [id number], [place] [address] May, Essential hypertension I10 ; Type 2 diabetes mellitus with diabetic neuropathy, without long-term current use of insulin E11.40 ; Mixed hyperlipidemia E78.2 ; Chronic obstructive pulmonary disease, unspecified COPD type J44.9 and Chronic GERD K21.9 [place] [id number] [place] [address] May, [facility] [facility] [id number] [place] [address] 21803- 5593 May, [place] [id number] [place] [address] 40319- 0157 May, Type 2 diabetes mellitus with diabetic neuropathy, without long-term current use of insulin E11.40 [place] [id number] [place] [address] 06868- 3288 May, Dementia without behavioral disturbance, unspecified dementia type F03.90 [place] [address] [place] [id number] [place] [address] 68130- 3259 May, Type 2 diabetes mellitus with diabetic neuropathy, without long-term current use of insulin E11.40 ; Essential hypertension I10 ; Mixed hyperlipidemia E78.2 ; Chronic obstructive pulmonary disease, unspecified COPD type J44.9 ; Chronic GERD K21.9 and Osteoarthritis of both knees, unspecified osteoarthritis type M17.0 [place] [address] [address]- 2508 May, [place] [address] [place] [id number] [place] [address] 30094- 3426 May, [place] [address] [place] [id number] [place] [address] 96772- 5190 May, Anxiety F41.9 and Unspecified symptoms and signs involving cognitive functions and awareness R41.9 [place] [address] [place] [id number] [place] [address] 68724- 7309 May, [place] [address] [place] [id number] [place] [address] 77769- 2243 May, Type 2 diabetes mellitus with diabetic neuropathy, without long-term current use of insulin E11.40 ; Anxiety F41.9 and Chronic obstructive pulmonary disease, unspecified COPD type J44.9 [place] [address] [place] [id number] [place] [address] 37194- 4465 May, [place] [address] [place] [id number] [place] [address] 87488- 4384 May, [place] [address] [place] [id number] [place] [address] 40777- 6177 May, [place] [address] [place] [id number] [place] [address] 67270- 0407 May, Chronic obstructive pulmonary disease, unspecified COPD type J44.9 [place] [address] [place] [id number] [place] [address] 65222- 5843 Mar, [place] [address] [place] [id number] [place] [address] 55676- 8891 Mar, Arthritis of both knees M19.[address] 57165- 5387 Mar, Type 2 diabetes mellitus with diabetic neuropathy, without long-term current use of insulin E11.[address] 79715- 7001 Mar, [place] [address] 25629- 0294 Mar, Neck pain M54.2 and Weakness generalized R53.[address] 69257- 3825 Mar, [place] [address] [place] [id number] [place] [address] 38605- 8499 Mar, Cervicalgia M54.2 and Impacted cerumen of both ears H61.23 [place] [address] [place] [id number] [place] [address] 63987- 0669 Mar, [place] [address] 49114- 9083 Mar, Type 2 diabetes mellitus with diabetic neuropathy, without long-term current use of insulin E11.40 [place] [address] [place] [id number] [place] [address] 11646- 6752 Feb, [place] [address] 73106- 0839 28 Feb, 2016 Hypoxia R09.02 [facility] [id number] [place] [address] 38516- 4297 23 Feb, 2016 [facility] [address] [place] [id number] [place] [address] 67918- 7578 20 Feb, 2016 [facility] [address] [place] [id number] [place] [address] 47237- 4925 19 Feb, 2016 [facility] [address] [place] [id number] [place] [address] 68036- 7547 16 Feb, 2016 Type 2 diabetes mellitus with diabetic neuropathy, without long-term current use of insulin E11.40 [facility] [address] [place] [id number] [place] [address] 10309- 8965 15 Feb, 2016 Osteoarthritis of both knees, unspecified osteoarthritis type M17.0 [facility] [address] [place] [id number] [place] [address] 51715- 5620 14 Feb, 2016 [facility] [id number] [place] [address] 22536- 1902 12 Feb, 2016 [facility] [address] [place] [id number] [place] [address] 56811- 3087 09 Feb, 2016 [facility] [id number] [place] [address] 15872- 4236 15 Jan, 2016 [facility] [id number] [place] [address] 01916- 5455 15 Jan, 2016 [facility] [id number] [place] [address] 37213- 0810 14 Jan, 2016 [facility] [id number] [place] [address] 59381- 8898 14 Jan, 2016 [facility] [id number] [place] [address] 40561- 1218 10 Jan, 2016 Tinea pedis of both feet B35.3 [facility] [address] [place] [id number] [place] [address] 64200- 0619 Jan, Type 2 diabetes mellitus with diabetic [...] and Encounter for immunization Z23 [place] [address] 93847- 5459 Jan, [place] [address] 83220- 0704 Jan, [place] [address] 88960- 7589 Dec, [facility] [address] 45403- 4917 Dec, [facility] [address] 66484 -8106 Dec, Unspecified asthma with (acute) exacerbation J45.901 and Chronic obstructive pulmonary disease with (acute) exacerbation J44.1 [place] [address] 80256- 3361 Dec, Arthritis of both knees M19.90 and Acute medial meniscus tear, right, initial encounter S83.241A [place] [address] 78479- 0830 Dec, [place] [address] 17694- 2247 Dec, [facility] [address] 22333- 2959 Dec, [facility] [address] 40546- 0604 Dec, [facility] [id number] [place] [address] 6300 Dec, History of pneumonia Z87.01 [facility] [id number] [place] [address]- 4844 Dec, [facility] [address] [place] [id number] [place] [address] 21687- 7016 Dec, [facility] [address] [place] [id number] [place] [address] 08959- 2640 Dec, [facility] [address] [place] [id number] [place] [address] 81033- 4486 Dec, [facility] [address] [place] [id number] [place] [address] 12243- 2081 Dec, [facility] [address] [place] [id number] [place] [address] 68519- 9696 Dec, [facility] [id number] [place] [address]- [address]274 30 Nov, 2015 Cough R05 and Pneumonia due to infectious organism, unspecified laterality, unspecified part of lung J18.9 [facility] [id number] [place] [address]- 2430 Nov, [facility] [id number] [place] [address]- 4209 22 Nov, 2015 Type 2 diabetes mellitus [...] allergic rhinitis trigger, unspecified rhinitis seasonality J30.9 [facility] [address] [facility] [id number] [place] [address]- 0392 Nov, IMMUNIZATIONS No Known Immunizations SOCIAL HISTORY Never Assessed REASON FOR VISIT Follow-up COPD/GERD -[facility]AN OF CARE Activity Details Follow Up 3 Months Reason: VITAL SIGNS Height 72 in 2017-11-18 Weight 245.9 lbs 2017-11-18 Temperature 97.4 degrees Fahrenheit 2017-11-18 Heart Rate 79 bpm 2017-11-18 Respiratory Rate 20 2017-11-18 Oximetry 95 % 2017-11-18 Blood pressure systolic 118 mmHg 2017-11-18 Blood pressure diastolic 62 mmHg 2017-11-18 MEDICATIONS Medication Instructions Dosage Frequency Start Date End Date Duration Status Clonazepam 1 MG Orally 3 times a day 1 tablet 8h 28 days Active Oxygen nc continuously 2 liters Active Montelukast Sodium 10 mg Orally Once a day 1 tablet in the evening 24h 30 days Active Metformin HCl 500 mg Orally Once a day (pt only takes 1/2 tab PRN gluocse over 180) 1 tablet with a meal Active Exelon 4.6 MG/24HR APPLY ONE PATCH TO HAIR-FREE AREA ABOVE THE WAIST AND CHANGE EVERY 24 HOURS Active Lyrica 100 mg Orally Three times a day 1 capsule 8h 28 days Active Pantoprazole Sodium 40 mg Orally Once a day 1 tablet 24h 30 days Active Lancets - test blood sugar Jan, 30 days Active Coricidin HBP Day/Night Cold 10-20 &15-200-2 MG Orally 2 Daytime pills Q AM at 5 am and 2 Nighttime pills at hs 8 pm 2 tablets Active Tramadol HCl 50 mg Orally every 12 hrs 1 tablet as needed 12h 28 days Active Ipratropium-Albuterol 0.5-2.5 (3) MG/3ML Inhalation every 4 hrs 3 ml 4h Sep, 10 days Active Multivitamin Adult - Active Myrbetriq 25 TAKE ONE TABLET BY MOUTH DAILY DIRECTED 90 Active Triamcinolone Acetonide 0.1 % Externally Twice a day to as needed 1 application to affected area Jan, 30 days Active Fluticasone Propionate 50 MCG/ACT Nasally Once a day at hs 1 spray in each nostril Aug, Active Nystatin 634738 UNIT/GM Externally Twice a day 1 application to affected area 12h May, Active Doxazosin Mesylate 4 MG Orally at bedtime 1 tablet Active Loratadine 10 MG Orally Once a day 1 tablet 24h 30 day(s) Active Atorvastatin Calcium 40 mg Orally Once a day 1 tablet 24h Active Amlodipine Besylate 10 mg Orally Once a day 1 tablet 24h 30 days Active Sucralfate 1 GM Active Fish Oil 1000 MG Orally Twice a day 1 capsule 12h Active Zantac 150 mg Orally 2 times a day 1 tablet 12h Jun, 30 day(s) Active GlipiZIDE 5 mg Orally twice a day 1 tablet 12h 30 days Active Benzonatate 100 mg Orally at bedtime 1 capsule as needed Sep, 30 days Active Plavix 75 MG Orally Once a day 1 tablet 24h 25 Jul, 2017 Active Levocetirizine Dihydrochloride 5 MG Orally Once a day 1 tablet in the evening 24h Active Viibryd 10 mg Orally at night 1 tablet with food 90 days Active Lubricant Drops both eyes 4 times a day PRN dryness 1 drop Active RESULTS No Results PROCEDURES Procedure Date Ordered Result Body Site [facility] VISIT ESTABLISHED PATIENT Nov 18, 2017 LAB NOT BILLED BY [facility] Nov 18, 2017 INSTRUCTIONS MEDICATIONS ADMINISTERED No Known Medications MEDICAL (GENERAL) HISTORY Type Description Date Medical History hypertension Medical History chronic obstructive pulmonary disease (COPD)-wears 2L O2 per [place], uses [employer] for home O2 Medical History Arthritis-knees and [...] TIA, [address] [facility] 2014 Hospitalization History COPD exacerbation--[facility] 12/27/2015 [facility] - fall 02/2016 [facility] History [facility] pneumonia 11/2016 Hospitalization History COPD exacerbation - Dr Hartley Attending 12/2016 Hospitalization History Cough- [facility] [place] 04/10/2017 Hospitalization History [facility] - Possible Pneumonia 06/2017 Hospitalization History COPD hiatal hernia 08/2017
--- OUTSIDE RECORDS SUMMARY | 2018-01-05 15:52 | XMS REPORT ---
Author Author DEBBIE RIVERA Organization [facility] Address [address] [place] [address] Care Team Providers Care Pipeman Name Role Phone RIVERADEBBIE Unavailable PROBLEMS Type Condition ICD9-CM Code [id number] Code Onset Dates Condition Status SNOMED Code Problem Chronic pain syndrome G89.4 Active 498218400 Problem Gastroesophageal reflux disease without esophagitis K21.9 Active 713110771 Problem Chronic GERD K21.9 Active 546730596 Problem Unspecified urinary incontinence R32 Active 262483824 Problem Elevated transaminase level R74.0 Active 618664938 Problem 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 Active 246908715 Problem 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 Active 897646704 Problem Nocturnal hypoxemia G47.34 Active 841708994 Problem 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 Active 518889979940847 Problem Recurrent major depressive disorder, in partial 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 Active 80769908 Problem Mixed hyperlipidemia E78.2 Active 463577241 Problem Essential hypertension I10 Active 19811884 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 Active 1372483 Problem 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 Active 664551592 Problem Chronic obstructive pulmonary disease, unspecified COPD type J44.9 Active 17885034 Problem Allergic rhinitis, unspecified allergic rhinitis trigger, unspecified rhinitis seasonality J30.9 Active 81883785 Problem Anxiety F41.9 Active 17907262 Problem Type 2 diabetes mellitus with diabetic neuropathy, without long-term current use of insulin E11.40 Active 81658314 Problem Hypoxia R09.02 Active 833767266 Problem Osteoarthritis of both knees, unspecified osteoarthritis type M17.0 Active 809267318 ALLERGIES No Information ENCOUNTERS Encounter Location Date Diagnosis [facility] [id number], [place] [address] Nov, [facility] [id number] [place] [address] 39633- 8416 17 Nov, 2017 Alzheimers disease with early onset 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 [facility] [id number] [place] [address] 16237- 0724 14 Nov, 2017 [place] [address] 0[address]58- 5447 12 Nov, 2017 Unspecified urinary incontinence R32 and Unspecified contact dermatitis due to other agents L25.8 [facility] [facility] [address] 782491- 5727 11 Nov, 2017 Chronic pain syndrome G89.4 [facility] [facility] [address] 873054- 2532 10 Nov, 2017 Type 2 diabetes mellitus with diabetic neuropathy, without long-term current use of insulin E11.40 [place] [address] 46359- 3160 Nov, [place] [address] 46649- 0518 Nov, Chronic obstructive pulmonary disease, unspecified COPD type J44.9 and Gastroesophageal reflux disease without esophagitis K21.9 [facility] [address] 76846- 5738 Oct, [facility] [id number] [place] [address] 64113- 7934 Oct, [facility] [id number] [place] [address] 29351- 8547 Oct, Chronic pain syndrome G89.4 [facility] [id number] [place] [address] 41975- 0920 Oct, Community acquired bacterial pneumonia J15.9 ; Allergic rhinitis, unspecified allergic rhinitis trigger, unspecified rhinitis seasonality J30.9 ; Type 2 diabetes mellitus with diabetic neuropathy, without long-term current use of insulin E11.40 ; Chronic GERD K21.9 and Chronic obstructive pulmonary disease, unspecified COPD type J44.9 [place] [address] [place] [address]- 48[address] Oct, [facility] [id number] [place] [address] 36586- 2175 Oct, [facility] [id number] [place] [address] 91657- 1714 Oct, [facility] [id number] [place] [address] 18778- 8139 Oct, [facility] [id number] [place] [address] 58805- 1728 Oct, Essential hypertension I10 [facility] [id number] [place] [address] 91272- 0161 Oct, Type 2 diabetes mellitus with diabetic neuropathy, without long-term current use of insulin E11.40 ; Chronic obstructive pulmonary disease , unspecified COPD type J44.9 ; Mixed hyperlipidemia E78.2 ; Osteoarthritis of both knees, unspecified osteoarthritis type M17.0 ; 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 and Essential hypertension I10 [facility] [id number] [place] [address] 12097- 9928 Oct, [facility] [id number] [place] [address] 19272- 6572 Oct, [facility] [id number] [place] [address] 24183- 1828 Oct, Yeast dermatitis B37.2 [facility] [id number] [place] [address] 16590- 8627 Oct, Chronic pain syndrome G89.4 [facility] [id number] [place] [address] 19413- 4650 Sep, [facility] [id number] [place] [address] 30729- 8971 Sep, [facility] [id number] [place] [address] 22646- 9079 Sep, Alzheimers disease with early onset G30.0 and Chronic pain syndrome G89.4 [facility] [address], [place] [address] 6597 Sep, COPD with acute exacerbation J44.1 [facility] [id number] [place] [address] 11557- 2266 Sep, [facility] [id number] [place] [address] 46838- 7233 Sep, [facility] [id number] [place] [address] 92919- 7888 Sep, Gastroesophageal reflux disease without esophagitis K21.9 [facility] [id number] [place] [address] 12554- 2482 Aug, [facility] [id number] [place] [address] 04166- 5114 Aug, [facility] [id number] [place] [address] 01278- 9644 Aug, 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 ; Hospital discharge follow-up Z09 ; Chronic obstructive pulmonary disease, unspecified COPD type J44.9 and Chronic GERD K21.9 [facility] [id number] [place] [address] 89501- 8725 Aug, Chronic pain syndrome G89.4 [facility] [address], [place] [address] Aug, [facility] [id number] [place] [address] 81759- 2096 Aug, [facility] [address] [place] [address] 51503- 0703 Aug, Chronic pain syndrome G89.4 and Alzheimers disease with early onset G30.0 [facility] [address], [place] [address] 8461 Aug, Type 2 diabetes mellitus with diabetic neuropathy, without long-term current use of insulin E11.40 ; Chronic obstructive pulmonary disease , unspecified COPD type J44.9 ; Chronic GERD K21.9 and 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 [facility] [id number] [place] [address] 15148- 3929 Aug, [facility] [id number] [place] [address] 55647- 8963 Aug, Essential hypertension I10 and Cough R05 [facility] [address] 96776- 2553 Aug, [facility] [id number] [place] [address] 25206- 6534 Aug, [facility] [id number] [place] [address] 26175- 5935 Aug, [facility] [id number] [place] [address] 64870- 1626 Aug, Chronic pain syndrome G89.4 [facility] [id number] [place] [address] 88616- 5294 Aug, [facility] [id number] [place] [address] 79649- 2970 Aug, [facility] [id number] [place] [address] 49574- 8657 July, Gastroesophageal reflux disease without esophagitis K21.9 [facility] [id number] [place] [address] 97623- 1008 July, [facility] [id number] [place] [address] 28549- 9721 July, [facility] [id number] [place] [address] 91432- 6309 July, [facility] [id number] [place] [address] 93789- 9992 July, Essential hypertension I10 and Chronic pain syndrome G89.4 [facility] [id number] [place] [address] 55403- 3948 July, Gastroesophageal reflux disease without esophagitis K21.9 [facility] [id number] [place] [address] 23526- 1052 July, Alzheimers disease with early 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 [place] [id number] [place] [address] 96963- 2661 July, Chronic obstructive pulmonary disease, unspecified COPD type J44.9 ; Nocturnal cough R05 ; 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 and Recurrent major depressive disorder, in partial 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 [facility] [id number] [place] [address] 37475- 9373 July, [place] [address] 42534- 8684 July, Type 2 diabetes mellitus with diabetic neuropathy, without long-term current use of insulin E11.40 [place] [address] 57849- 7338 July, Nocturnal hypoxemia G47.34 ; Chronic obstructive pulmonary disease, unspecified COPD type J44.9 and Nocturnal cough R05 [facility] [id number] [place] [address] 73163- 4189 July, [place] [id number] [place] [address] 87770- 1205 July, [place] [id number] [place] [address] 23769- 4139 July, [place] [id number] [place] [address] 19474- 3098 Jun, Chronic pain syndrome G89.4 [place] [address] 43135- 8601 Jun, [place] [id number] [place] [address] 37198- 4807 Jun, [place] [id number] [place] [address] 70423- 6169 Jun, Alzheimers disease with 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 [place] [id number] [place] [address] 49003- 2404 Jun, [place] [id number] [place] [address] 43772- 1547 Jun, Gastroesophageal reflux disease without esophagitis K21.9 [place] [address] 64194- 8388 Jun, Allergic rhinitis, unspecified allergic rhinitis trigger, unspecified rhinitis seasonality J30.9 [place] [id number] [place] [address] 52833- 6875 Jun, Chronic pain syndrome G89.4 [place] [id number] [place] [address] 37424- 9324 May, [place] [address] 06817- 7392 May, COPD with acute exacerbation J44.1 [place] [id number] [place] [address] 62188- 6537 14 May, 2017 Type 2 diabetes mellitus with diabetic neuropathy, without long-term current use of insulin E11.40 ; COPD with acute exacerbation J44.1 ; Hypoxia R09.02 ; Chronic pain syndrome G89.4 ; Yeast dermatitis B37.2 ; 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 and 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 [place] [id number] [place] [address] 82913- 5209 May, [place] [id number] [place] [address] 96712- 9143 May, Chronic pain syndrome G89.4 [place] [id number] [place] [address] 89735- 2945 May, [place] [id number] [place] [address] 98089- 4090 May, [place] [address] [address]- 1236 19 May, 2017 Mixed hyperlipidemia E78.2 [facility] [address], [place] [address]- 7012 15 May, 2017 Chronic pain syndrome G89.4 [facility] [address], [place] [address]- 2841 May, Anxiety F41.9 and Chronic pain syndrome G89.4 [facility] [address], [place] [address]- 1010 Mar, [facility] [id number] [place] [address] 51455- 1857 Mar, [facility] [id number] [place] [address] 95089- 3310 Mar, [facility] [id number] [place] [address] 79136- 8709 Mar, [facility] [address], [place] [address]- 1525 Mar, [facility] [address] [place] [address] 90462- 9475 Mar, Anxiety F41.9 and Chronic pain syndrome G89.4 [facility] [address], [place] [address]- 7562 Mar, Medicare annual wellness visit, initial Z00.00 [...] Hiatal hernia K44.9 and Actinic keratosis L57.0 [facility] [address] [place] [address] 89416- 9777 Mar, [facility] [id number] [place] [address] 90674- 6813 Mar, Chronic pain syndrome G89.4 [facility] [id number] [place] [address] 05112- 3463 Feb, [facility] [id number] [place] [address] 77826- 1869 Feb, Chronic pain syndrome G89.4 [facility] [id number] [place] [address] 15170- 3656 Feb, [facility] [id number] [place] [address] 01454- 0527 Feb, [facility] [id number] [place] [address] 70218- 1127 Feb, Anxiety F41.9 [facility] [id number] [place] [address] 20918- 1397 Feb, [facility] [id number] [place] [address] 32571- 2716 Feb, Chronic pain syndrome G89.4 [facility] [id number] [place] [address] 97318- 4973 Jan, Essential hypertension I10 [facility] [id number] [place] [address] 79086- 5038 Jan, Chronic pain syndrome G89.4 [facility] [address] [place] [address] 49063- 7751 Jan, [facility] [id number] [place] [address] 10144- 6276 Jan, Anxiety F41.9 [facility] [address] [place] [address] 55952- 8734 Jan, Encounter for immunization Z23 and Community acquired pneumonia, unspecified laterality J18.9 [facility] [address] [place] [address] 67335- 5894 Jan, Type 2 diabetes mellitus with diabetic neuropathy, without long-term current use of insulin E11.40 [facility] [id number] [place] [address] 97043- 6085 Dec, Anxiety F41.9 and Chronic pain syndrome G89.4 [place] [address] 69850- 8703 Dec, Chronic pain syndrome G89.4 and Essential hypertension I10 [place] [address] 53579- 0231 Dec, [place] [id number] [place] [address] 30043- 5660 Dec, Anxiety F41.9 [place] [id number] [place] [address] 12701- 9156 Dec, [place] [id number] [place] [address] 87070- 0563 Dec, Type 2 diabetes mellitus with diabetic neuropathy, without long-term current use of insulin E11.40 ; Lactic acidosis E87.2 ; Chronic obstructive pulmonary disease, unspecified COPD type J44.9 and Encounter for immunization Z23 [facility] [id number] [place] [address] 44843- 5187 Dec, Chronic pain syndrome G89.4 [facility] [id number] [place] [address] 16658- 9480 Nov, [place] [id number] [place] [address] 16934- 0597 Nov, Chronic pain syndrome G89.4 [facility] [id number] [place] [address] 26716- 2762 Nov, [facility] [id number] [place] [address] 13270- 4094 Nov, [facility] [address], [place] [address]- 9417 Nov, Anxiety F41.9 [facility] [id number] [place] [address] 84045- 1139 Nov, Anxiety F41.9 [facility] [id number] [place] [address] 54155- 7225 Nov, [facility] [id number] [place] [address] 09500- 8882 Nov, [facility] [id number] [place] [address] 66268- 2007 Nov, [facility] [id number] [place] [address] 41067- 9007 Oct, [facility] [id number] [place] [address] 83282- 3515 Oct, [facility] [id number] [place] [address] 35555- 7567 Oct, [facility] [id number] [place] [address] 80350- 0057 Oct, Essential hypertension I10 and Chronic pain syndrome G89.4 [facility] [id number] [place] [address] 11319- 8007 Oct, Anxiety F41.9 [facility] [id number] [place] [address] 57246- 5470 Oct, [facility] [address] [place] [address] 19886- 6065 Oct, Chronic pain syndrome G89.4 [facility] [id number] [place] [address] 60306 -0818 Oct, Sore throat J02.9 and Acute nasopharyngitis (common cold) J00 [facility] [address] [place] [address] 46066- 4589 Sep, [facility] [address], [place] [address]- 9369 Sep, COPD exacerbation J44.1 [facility] [id number] [place] [address] 52661- 4396 Sep, Chronic pain syndrome G89.4 [facility] [id number] [place] [address] 27376- 8426 Sep, Essential hypertension I10 [facility] [id number] [place] [address] 46263- 3710 Sep, [facility] [id number] [place] [address] 17911- 3349 Sep, [facility] [id number] [place] [address] 00224- 3052 Sep, Anxiety F41.9 [facility] [id number] [place] [address] 45888- 0367 Sep, Chronic pain syndrome G89.4 [facility] [id number] [place] [address] 09916- 2664 Sep, [facility] [id number] [place] [address] 38865- 8847 Aug, Acute seasonal allergic rhinitis, unspecified trigger J30.2 ; Hiatal hernia K44.9 and Chronic pain syndrome G89.4 [facility] [address] [address]- 1109 Aug, [facility] [address], [place] [address]- 2543 Aug, [facility] [id number] [place] [address] 37012- 8917 Aug, Chronic obstructive pulmonary disease, unspecified COPD type J44.9 [facility] [address] [address]- 9081 Aug, Anxiety F41.9 [facility] [id number] [place] [address] 18482- 9392 08 Aug, 2016 Chronic pain syndrome G89.4 [facility] [id number] [place] [address] 01798- 7209 07 Aug, 2016 Hiatal hernia K44.9 and Actinic keratosis L57.0 [facility] [id number] [place] [address] 69001- 1136 Aug, [facility] [id number] [place] [address] 08440- 4790 Aug, Anxiety F41.9 [facility] [id number] [place] [address] 56632- 4216 July, [facility] [id number] [place] [address] 15609- 2891 July, Hiatal hernia K44.9 [facility] [id number] [place] [address] 19443- 5484 July, [facility] [id number] [place] [address] 35476- 9993 July, Anxiety F41.9 and Chronic pain syndrome G89.4 [facility] [id number] [place] [address] 73368- 5203 July, [facility] [id number] [place] [address] 06505- 7626 Jun, Chronic pain syndrome G89.4 [facility] [id number] [place] [address] 17482- 3448 Jun, Chronic pain syndrome G89.4 [facility] [id number] [place] [address] 89275- 5129 Jun, [facility] [id number] [place] [address] 86500- 7475 Jun, Anxiety F41.9 [facility] [id number] [place] [address] 89294- 8688 Jun, Allergic rhinitis, unspecified allergic rhinitis trigger, unspecified rhinitis seasonality J30.9 [facility] [id number] [place] [address] 79041- 7351 Jun, [facility] [id number] [place] [address] 77794- 9618 May, Chronic pain syndrome G89.4 [place] [address] 03920- 0155 May, [place] [id number] [place] [address] 71232- 5432 May, [place] [address] [id number]- [address]88 May, Anxiety F41.9 [place] [id number] [place] [address] [phone] May, Type 2 diabetes mellitus with diabetic [...] Anxiety F41.9 and Chronic pain syndrome G89.4 [place] [id number] [place] [address] [phone] May, Essential hypertension I10 ; Type 2 diabetes mellitus with diabetic neuropathy, without long-term current use of insulin E11.40 ; Mixed hyperlipidemia E78.2 ; Chronic obstructive pulmonary disease, unspecified COPD type J44.9 and Chronic GERD K21.9 [place] [id number] [place] [address] [phone]- [phone] May, [place] [id number] [place] [address] [phone]- [phone] May, [place] [id number] [place] [address] [phone]- [phone] May, Type 2 diabetes mellitus with diabetic neuropathy, without long-term current use of insulin E11.40 [place] [id number] [place] [address] [phone]- [phone] May, Dementia without behavioral disturbance, unspecified dementia type F03.90 [place] [id number] [place] [address] [phone]- [phone] May, Type 2 diabetes mellitus with diabetic neuropathy, without long-term current use of insulin E11.40 ; Essential hypertension I10 ; Mixed hyperlipidemia E78.2 ; Chronic obstructive pulmonary disease, unspecified COPD type J44.9 ; Chronic GERD K21.9 and Osteoarthritis of both knees, unspecified osteoarthritis type M17.0 [place] [id number] [place] [address] [phone]- [phone] May, [place] [address] [address]- [address] May, [place] [address] [address] [id number] [place] [address] 10032- 5847 May, Anxiety F41.9 and Unspecified symptoms and signs involving cognitive functions and awareness R41.9 [place] [address] [address] [id number] [place] [address] 90515- 6293 May, [place] [address] [address] [id number] [place] [address] 67296- 6238 May, Type 2 diabetes mellitus with diabetic neuropathy, without long-term current use of insulin E11.40 ; Anxiety F41.9 and Chronic obstructive pulmonary disease, unspecified COPD type J44.9 [place] [address] [id number] [place] [address] 76008- 8130 May, [place] [id number] [place] [address] 98451- 6025 May, [place] [id number] [place] [address] 93991- 0346 May, [place] [id number] [place] [address] 70968- 3792 May, Chronic obstructive pulmonary disease, unspecified COPD type J44.9 [place] [address] [id number] [place] [address] 16475- 5559 Mar, [place] [address] 40966- 2538 Mar, Arthritis of both knees M19.90 [place] [address] 61310- 4672 Mar, Type 2 diabetes mellitus with diabetic neuropathy, without long-term current use of insulin E11.40 [place] [address] [address] [id number] [place] [address] 68284- 9530 Mar, [place] [address] 81405- 7958 Mar, Neck pain M54.2 and Weakness generalized R53.1 [place] [address] [address] [id number] [place] [address] 62722- 7730 Mar, [place] [address] 51165- 4146 Mar, Cervicalgia M54.2 and Impacted cerumen of both ears H61.23 [place] [address] [id number] [place] [address] 78495- 6080 Mar, [place] [id number] [place] [address] 46849- 7453 Mar, Type 2 diabetes mellitus with diabetic neuropathy, without long-term current use of insulin E11.40 [place] [id number] [place] [address] 62477- 6892 Feb, [place] [id number] [place] [address] 64202- 4520 Feb, Hypoxia R09.02 [place] [address] 16553- 2616 23 Feb, 2016 [facility] [address] [address] 6[address] Feb, [facility] [id number] [place] [address] 50429- 9171 19 Feb, 2016 [facility] [id number] [place] [address] 76585- 6616 16 Feb, 2016 Type 2 diabetes mellitus with diabetic neuropathy, without long-term current use of insulin E11.40 [facility] [address], [place] [address] 1330 15 Feb, 2016 Osteoarthritis of both knees, unspecified osteoarthritis type M17.0 [facility] [id number] [place] [address] 83660- 6826 14 Feb, 2016 [facility] [id number] [place] [address] 00588- 1906 Feb, [facility] [address] [place] [address] 2612 09 Feb, 2016 [facility] [id number] [place] [address] 86462- 7421 15 Jan, 2016 [facility] [address], [place] [address]- 7159 15 Jan, 2016 [facility] [id number] [place] [address] 38066- 0539 14 Jan, 2016 [facility] [address] [place] [address]- 5458 14 Jan, 2016 [facility] [id number] [place] [address] 18124- 5985 10 Jan, 2016 Tinea pedis of both feet B35.3 [facility] [address], [place] [address]- 1311 03 Jan, 2016 Type 2 diabetes mellitus [...] seasonality J30.9 and Encounter for immunization Z23 [facility] [address] 22170- 9927 Jan, [facility] [address] 71501- 5514 Jan, [place] [address] 42080- 2344 Dec, [place] [address] 41889- 2139 Dec, [facility] [address] 13485 -4339 Dec, Unspecified asthma with (acute) exacerbation J45.901 and Chronic obstructive pulmonary disease with (acute) exacerbation J44.1 [place] [address] 07031- 9679 Dec, Arthritis of both knees M19.90 and Acute medial meniscus tear, right, initial encounter S83.241A [place] [id number] [place] [address] 49555- 5227 Dec, [place] [address] 47926- 6120 Dec, [facility] [address] 63223- 9546 Dec, [facility] [id number] [place] [address] 82336- 5994 Dec, [facility] [address] 93529- 1314 11 Dec, 2015 History of pneumonia Z87.01 [facility] [address], [place] [address]- 6775 Dec, [facility] [address] [id number] [place] [address] 14208- 3338 Dec, [facility] [id number] [place] [address] 81573- 0716 Dec, [facility] [id number] [place] [address] 88258- 2930 Dec, [facility] [id number] [place] [address] 27336- 3844 Dec, [facility] [id number] [place] [address] 14005- 2841 Dec, [place] [id number] [place] [address] 61832- 1133 Nov, Cough R05 and Pneumonia due to infectious organism, unspecified laterality, unspecified part of lung J18.9 [place] [id number] [place] [address] 07367- 8273 Nov, [place] [address] [id number] [place] [address] 11916- 0944 22 Nov, 2015 Type 2 diabetes mellitus [...] allergic rhinitis trigger, unspecified rhinitis seasonality J30.9 [facility] [id number] [place] [address] 10348- 1505 12 Nov, 2015 IMMUNIZATIONS No Known Immunizations SOCIAL HISTORY Never Assessed REASON FOR VISIT Med refill PLAN OF CARE VITAL SIGNS MEDICATIONS Medication Instructions Dosage Frequency Start Date End Date Duration Status Amlodipine Besylate 10 mg Orally Once a [...] Via [facility] 2014 Hospitalization History COPD exacerbation--[facility] 12/27/2015 [facility] - fall 02/2016 Hospitalization History [facility] pneumonia 11/2016 Hospitalization History COPD exacerbation - Dr Hartley Attending 12/2016 Hospitalization History Cough- [facility] [place] 04/10/2017 Hospitalization History [facility] - Possible Pneumonia 06/2017 Hospitalization History COPD hiatal hernia 08/2017
--- OUTSIDE RECORDS SUMMARY | 2018-01-05 15:52 | XMS REPORT ---
Author Author DARIN HARTLEY [facility] Address [address] 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 Active 272534823 Problem Nocturnal hypoxemia G47.34 Active 836082998 Problem 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 Active [id number] Problem Recurrent major depressive disorder, in partial 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 Active 80990149 Problem Mixed hyperlipidemia E78.2 Active 591460343 Problem Essential hypertension I10 Active 00725419 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 Active 1638885 Problem 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 Active 691616220 Problem Chronic obstructive pulmonary disease, unspecified COPD type J44.9 Active 50062263 Problem Allergic rhinitis, unspecified allergic rhinitis trigger, unspecified rhinitis seasonality J30.9 Active 49969790 Problem Anxiety F41.9 Active 37770733 Problem Type 2 diabetes mellitus with diabetic neuropathy, without long-term current use of insulin E11.40 Active 26294969 Problem Hypoxia R09.02 Active 122027019 Problem Osteoarthritis of both knees, unspecified osteoarthritis type M17.0 Active 614720070 ALLERGIES No Information ENCOUNTERS Encounter Location Date Diagnosis [facility] [address] [facility] [id number] [address] Nov, [facility] [id number] [place] [address] 33843- 7292 17 Nov, 2017 Alzheimers disease with early onset G30.0 [facility] [id number] [place] [address] 46619- 0747 14 Nov, 2017 [place] [address] 62750- 4035 12 Nov, 2017 Unspecified urinary incontinence R32 and Unspecified contact dermatitis due to other agents L25.8 [place] [address] 649770- 8723 11 Nov, 2017 Chronic pain syndrome G89.4 [place] [facility] [address] 235939- 3231 10 Nov, 2017 Type 2 diabetes mellitus with diabetic neuropathy, without long-term current use of insulin E11.40 [place] [address] 80614- 7594 Nov, [place] [facility] [address] 16654- 2724 Nov, Chronic obstructive pulmonary disease, unspecified COPD type J44.9 and Gastroesophageal reflux disease without esophagitis K21.9 [place] [facility] [address] 06834- 8148 Oct, [facility] [id number] [place] [address] 42079- 7574 Oct, [facility] [id number] [place] [address] 12023- 6864 Oct, Chronic pain syndrome G89.4 [facility] [id number] [place] [address] 46138- 0837 Oct, Community acquired bacterial pneumonia J15.9 ; Allergic rhinitis, unspecified allergic rhinitis trigger, unspecified rhinitis seasonality J30.9 ; Type 2 diabetes mellitus with diabetic neuropathy, without long-term current use of insulin E11.40 ; Chronic GERD K21.9 and Chronic obstructive pulmonary disease, unspecified COPD type J44.9 [place] [address] [place] [address]- 7442 Oct, [facility] [id number] [place] [address] 81428- 7757 Oct, [facility] [id number] [place] [address] 73851- 2928 Oct, [facility] [id number] [place] [address] 17065- 3376 Oct, [facility] [id number] [place] [address] 27830- 1951 Oct, Essential hypertension I10 [facility] [id number] [place] [address] 23667- 7025 Oct, Type 2 diabetes mellitus with diabetic neuropathy, without long-term current use of insulin E11.40 ; Chronic obstructive pulmonary disease , unspecified COPD type J44.9 ; Mixed hyperlipidemia E78.2 ; Osteoarthritis of both knees, unspecified osteoarthritis type M17.0 ; Alzheimers disease with early onset 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 and Essential hypertension I10 [facility] [id number] [place] [address] 73033- 6582 Oct, [facility] [id number] [place] [address] 71160- 7592 Oct, [facility] [id number] [place] [address] 40106- 3989 Oct, Yeast dermatitis B37.2 [facility] [id number] [place] [address] 22350- 1837 Oct, Chronic pain syndrome G89.4 [facility] [id number] [place] [address] 51427- 4340 Sep, [facility] [id number] [place] [address] 57662- 2359 Sep, [facility] [id number] [place] [address] 59900- 3138 Sep, Alzheimers disease with early onset G30.0 and Chronic pain syndrome G89.4 [facility] [address], [place] [address] 0683 Sep, COPD with acute exacerbation J44.1 [facility] [id number] [place] [address] 62167- 4083 Sep, [facility] [id number] [place] [address] 82559- 3566 Sep, [facility] [id number] [place] [address] 47095- 6857 Sep, Gastroesophageal reflux disease without esophagitis K21.9 [facility] [id number] [place] [address] 38491- 0616 Aug, [facility] [id number] [place] [address] 79600- 9331 Aug, [facility] [id number] [place] [address] 66504- 0600 Aug, 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 ; Hospital discharge follow-up Z09 ; Chronic obstructive pulmonary disease, unspecified COPD type J44.9 and Chronic GERD K21.9 [facility] [id number] [place] [address] 62881- 5519 Aug, Chronic pain syndrome G89.4 [facility] [address] [address] 2316 Aug, [facility] [id number] [place] [address] 32541- 0011 Aug, [facility] [id number] [place] [address] 90163- 8877 Aug, Chronic pain syndrome G89.4 and Alzheimers disease with early onset G30.0 [facility] [address] [address] 1323 Aug, Type 2 diabetes mellitus with diabetic neuropathy, without long-term current use of insulin E11.40 ; Chronic obstructive pulmonary disease , unspecified COPD type J44.9 ; Chronic GERD K21.9 and 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 [facility] [id number] [place] [address] 49313- 7499 Aug, [facility] [id number] [place] [address] 62684- 3253 Aug, Essential hypertension I10 and Cough R05 [facility] [address] 06902- 8799 Aug, [facility] [id number] [place] [address] 40550- 1861 Aug, [facility] [id number] [place] [address] 48462- 6343 Aug, [facility] [id number] [place] [address] 25084- 5218 Aug, Chronic pain syndrome G89.4 [facility] [id number] [place] [address] 99624- 3838 Aug, [facility] [id number] [place] [address] 68174- 1429 Aug, [facility] [id number] [place] [address] 28357- 8109 July, Gastroesophageal reflux disease without esophagitis K21.9 [facility] [id number] [place] [address] 04289- 9852 July, [facility] [id number] [place] [address] 31310- 6461 July, [facility] [id number] [place] [address] 24997- 7119 July, [facility] [id number] [place] [address] 14907- 9222 July, Essential hypertension I10 and Chronic pain syndrome G89.4 [facility] [id number] [place] [address] 94168- 7416 July, Gastroesophageal reflux disease without esophagitis K21.9 [facility] [id number] [place] [address] 87831- 0477 July, Alzheimers disease with early onset G30.0 [facility] [id number] [place] [address] 24707- 4922 July, Chronic obstructive pulmonary disease, unspecified COPD type J44.9 ; Nocturnal cough R05 ; 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 and Recurrent major depressive disorder, in partial 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 [facility] [id number] [place] [address] 13452- 9264 July, [facility] [address] 87894- 3068 July, Type 2 diabetes mellitus with diabetic neuropathy, without long-term current use of insulin E11.40 [place] [address] 75514- 0765 July, Nocturnal hypoxemia G47.34 ; Chronic obstructive pulmonary disease, unspecified COPD type J44.9 and Nocturnal cough R05 [place] [id number] [place] [address] 20324- 1301 July, [facility] [id number] [place] [address] 81137- 4946 July, [facility] [id number] [place] [address] 17670- 1783 July, [facility] [id number] [place] [address] 22324- 3100 Jun, Chronic pain syndrome G89.4 [place] [address] 62206- 8838 Jun, [facility] [id number] [place] [address] 70434- 1286 Jun, [facility] [id number] [place] [address] 71079- 0174 Jun, Alzheimers disease with early onset G30.0 [facility] [id number] [place] [address] 55453- 7441 Jun, [facility] [id number] [place] [address] 30101- 6267 Jun, Gastroesophageal reflux disease without esophagitis K21.9 [place] [address] 23083- 4821 Jun, Allergic rhinitis, unspecified allergic rhinitis trigger, unspecified rhinitis seasonality J30.9 [facility] [address] [address] [id number] [place] [address] 58640- 8419 Jun, Chronic pain syndrome G89.4 [facility] [id number] [place] [address] 50769- 1542 May, [facility] [facility] [address] 88749- 5523 May, COPD with acute exacerbation J44.1 [facility] [id number] [place] [address] 21315- 0006 14 May, 2017 Type 2 diabetes mellitus with diabetic neuropathy, without long-term current use of insulin E11.40 ; COPD with acute exacerbation J44.1 ; Hypoxia R09.02 ; Chronic pain syndrome G89.4 ; Yeast dermatitis B37.2 ; Alzheimers disease with early onset G30.0 and 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 [facility] [address] [id number] [place] [address] 93643- 4818 May, [facility] [id number] [place] [address] 63033- 5741 May, Chronic pain syndrome G89.4 [facility] [id number] [place] [address] 57809- 8947 May, [facility] [id number] [place] [address] 54972- 3825 May, [place] [address] [place] [address]- 4630 19 May, 2017 Mixed hyperlipidemia E78.2 [facility] [address], [place] [address]- 8167 15 May, 2017 Chronic pain syndrome G89.4 [facility] [address], [place] [address]- 5108 May, Anxiety F41.9 and Chronic pain syndrome G89.4 [facility] [address], [place] [address]- 8682 Mar, [facility] [id number] [place] [address] 36247- 3401 Mar, [facility] [id number] [place] [address] 66363- 6012 Mar, [facility] [id number] [place] [address] 65861- 5352 Mar, [facility] [address], [place] [address]- 2211 Mar, [facility] [id number] [place] [address] 03218- 8121 Mar, Anxiety F41.9 and Chronic pain syndrome G89.4 [facility] [address], [place] [address]- 3688 Mar, Medicare annual wellness visit, initial Z00.00 [...] hernia K44.9 and Actinic keratosis L57.0 [facility] [id number] [place] [address] 15345- 3525 Mar, [facility] [id number] [place] [address] 74361- 8683 Mar, Chronic pain syndrome G89.4 [facility] [id number] [place] [address] 29020- 8632 Feb, [facility] [id number] [place] [address] 52902- 9438 Feb, Chronic pain syndrome G89.4 [facility] [id number] [place] [address] 65821- 8731 Feb, [facility] [id number] [place] [address] 95033- 0907 Feb, [facility] [id number] [place] [address] 41248- 6490 Feb, Anxiety F41.9 [facility] [id number] [place] [address] 92445- 9927 Feb, [facility] [id number] [place] [address] 99614- 6195 Feb, Chronic pain syndrome G89.4 [facility] [id number] [place] [address] 99717- 6362 Jan, Essential hypertension I10 [facility] [id number] [place] [address] 37622- 1108 Jan, Chronic pain syndrome G89.4 [facility] [id number] [place] [address] 68010- 9129 Jan, [facility] [id number] [place] [address] 93770- 1450 Jan, Anxiety F41.9 [facility] [id number] [place] [address] 92683- 4576 Jan, Encounter for immunization Z23 and Community acquired pneumonia, unspecified laterality J18.9 [facility] [id number] [place] [address] 34873- 2180 Jan, Type 2 diabetes mellitus with diabetic neuropathy, without long-term current use of insulin E11.40 [facility] [id number] [place] [address] 94104- 9274 Dec, Anxiety F41.9 and Chronic pain syndrome G89.4 [facility] [address] 43151- 8714 Dec, Chronic pain syndrome G89.4 and Essential hypertension I10 [place] [address] 01190- 3252 Dec, [facility] [id number] [place] [address] 59530- 4407 Dec, Anxiety F41.9 [facility] [id number] [place] [address] 40955- 7390 Dec, [facility] [id number] [place] [address] 01639- 6871 Dec, Type 2 diabetes mellitus with diabetic neuropathy, without long-term current use of insulin E11.40 ; Lactic acidosis E87.2 ; Chronic obstructive pulmonary disease, unspecified COPD type J44.9 and Encounter for immunization Z23 [facility] [address] [id number] [place] [address] 46499- 3259 Dec, Chronic pain syndrome G89.4 [facility] [id number] [place] [address] 50220- 2493 Nov, [facility] [address] [id number] [place] [address] 26479- 3076 Nov, Chronic pain syndrome G89.4 [facility] [id number] [place] [address] 62700- 6692 Nov, [facility] [id number] [place] [address] 52274- 3713 Nov, [facility] [address], [place] [address]- 0268 Nov, Anxiety F41.9 [facility] [id number] [place] [address] 29203- 6283 Nov, Anxiety F41.9 [facility] [id number] [place] [address] 48919- 0437 Nov, [facility] [id number] [place] [address] 08636- 8495 Nov, [facility] [id number] [place] [address] 44799- 3338 Nov, [facility] [id number] [place] [address] 59051- 1797 Oct, [facility] [id number] [place] [address] 62541- 9213 Oct, [facility] [id number] [place] [address] 28484- 4256 Oct, [facility] [id number] [place] [address] 87548- 3714 Oct, Essential hypertension I10 and Chronic pain syndrome G89.4 [facility] [id number] [place] [address] 41260- 0234 Oct, Anxiety F41.9 [facility] [id number] [place] [address] 25612- 4878 Oct, [facility] [id number] [place] [address] 64429- 2602 Oct, Chronic pain syndrome G89.4 [facility] [id number] [place] [address] 65665 -6454 Oct, Sore throat J02.9 and Acute nasopharyngitis (common cold) J00 [facility] [id number] [place] [address] 97627- 1184 Sep, [facility] [address], [place] [address]- 7645 Sep, COPD exacerbation J44.1 [facility] [id number] [place] [address] 18426- 9496 Sep, Chronic pain syndrome G89.4 [facility] [id number] [place] [address] 25650- 0426 Sep, Essential hypertension I10 [facility] [id number] [place] [address] 64636- 6968 Sep, [facility] [id number] [place] [address] 82413- 3551 Sep, [facility] [id number] [place] [address] 30936- 7336 Sep, Anxiety F41.9 [facility] [id number] [place] [address] 76032- 3810 Sep, Chronic pain syndrome G89.4 [facility] [id number] [place] [address] 04067- 8182 Sep, [facility] [id number] [place] [address] 05985- 4634 Aug, Acute seasonal allergic rhinitis, unspecified trigger J30.2 ; Hiatal hernia K44.9 and Chronic pain syndrome G89.4 [facility] [address] [address]- 2669 Aug, [facility] [address], [place] [address]- 2548 Aug, [facility] [id number] [place] [address] 57000- 0492 Aug, Chronic obstructive pulmonary disease, unspecified COPD type J44.9 [facility] [address] [address]- 8607 Aug, Anxiety F41.9 [facility] [id number] [place] [address] 69502- 0990 08 Aug, 2016 Chronic pain syndrome G89.4 [facility] [id number] [place] [address] 93256- 3262 07 Aug, 2016 Hiatal hernia K44.9 and Actinic keratosis L57.0 [facility] [id number] [place] [address] 58645- 1401 Aug, [facility] [id number] [place] [address] 22019- 7447 Aug, Anxiety F41.9 [facility] [id number] [place] [address] 94580- 0839 July, [facility] [id number] [place] [address] 80033- 5534 July, Hiatal hernia K44.9 [facility] [id number] [place] [address] 39422- 9310 July, [facility] [id number] [place] [address] 46946- 3807 July, Anxiety F41.9 and Chronic pain syndrome G89.4 [facility] [id number] [place] [address] 54962- 8382 July, [facility] [id number] [place] [address] 57151- 5893 Jun, Chronic pain syndrome G89.4 [facility] [id number] [place] [address] 81083- 5614 Jun, Chronic pain syndrome G89.4 [facility] [id number] [place] [address] 94808- 8315 Jun, [facility] [id number] [place] [address] 80060- 9089 Jun, Anxiety F41.9 [facility] [id number] [place] [address] 93994- 5062 Jun, Allergic rhinitis, unspecified allergic rhinitis trigger, unspecified rhinitis seasonality J30.9 [facility] [id number] [place] [address] 79740- 7686 Jun, [facility] [id number] [place] [address] 61743- 0794 May, Chronic pain syndrome G89.4 [facility] [address] 33526- 1229 May, [facility] [id number] [place] [address] 33937- 9647 May, [facility] [address] 15219- 0829 May, Anxiety F41.9 [facility] [id number] [place] [address] 14351- 0574 May, Type 2 diabetes mellitus with diabetic [...] Anxiety F41.9 and Chronic pain syndrome G89.4 [facility] [id number] [place] [address] 64726- 2010 May, Essential hypertension I10 ; Type 2 diabetes mellitus with diabetic neuropathy, without long-term current use of insulin E11.40 ; Mixed hyperlipidemia E78.2 ; Chronic obstructive pulmonary disease, unspecified COPD type J44.9 and Chronic GERD K21.9 [facility] [address] [place] [id number] [place] [address] [phone] May, [place] [address] [place] [id number] [place] [address] [phone]- [phone] May, [place] [address] [place] [id number] [place] [address] [phone] May, Type 2 diabetes mellitus with diabetic neuropathy, without long-term current use of insulin E11.40 [place] [address] [place] [id number] [place] [address] [phone]- [phone] May, Dementia without behavioral disturbance, unspecified dementia type F03.90 [place] [address] [place] [id number] [place] [address] [phone]- [phone] May, Type 2 diabetes mellitus with diabetic neuropathy, without long-term current use of insulin E11.40 ; Essential hypertension I10 ; Mixed hyperlipidemia E78.2 ; Chronic obstructive pulmonary disease, unspecified COPD type J44.9 ; Chronic GERD K21.9 and Osteoarthritis of both knees, unspecified osteoarthritis type M17.0 [place] [address] [place] [id number] [place] [address] [phone]- [phone] May, [place] [address] [phone]- [address]40 May, [place] [address] [place] [id number] [place] [address] [phone] May, Anxiety F41.9 and Unspecified symptoms and signs involving cognitive functions and awareness R41.9 [place] [address] [place] [id number] [place] [address] [phone]- [phone] May, [place] [address] [place] [id number] [place] [address] [phone]- [phone] May, Type 2 diabetes mellitus with diabetic neuropathy, without long-term current use of insulin E11.40 ; Anxiety F41.9 and Chronic obstructive pulmonary disease, unspecified COPD type J44.9 [place] [address] [place] [id number] [place] [address] [phone]- [phone] May, [place] [address] [place] [id number] [place] [address] [phone] May, [place] [address] [place] [id number] [place] [address] [phone]- [phone] May, [facility] [address] [address] [id number] [place] [address] 31797- 0299 May, Chronic obstructive pulmonary disease, unspecified COPD type J44.9 [facility] [id number] [place] [address] 05680- 1736 Mar, [place] [address] [address]- [address]135 Mar, Arthritis of both knees M19.90 [facility] [address] 62959- 7021 Mar, Type 2 diabetes mellitus with diabetic neuropathy, without long-term current use of insulin E11.40 [facility] [address] [id number] [place] [address] 79172- 2656 Mar, [place] [address] 79374- 7768 Mar, Neck pain M54.2 and Weakness generalized R53.1 [facility] [id number] [place] [address] 56118- 2219 Mar, [place] [address] 90461- 4498 Mar, Cervicalgia M54.2 and Impacted cerumen of both ears H61.23 [place] [id number] [place] [address] 44783- 3536 Mar, [facility] [id number] [place] [address] 68513- 7469 Mar, Type 2 diabetes mellitus with diabetic neuropathy, without long-term current use of insulin E11.40 [facility] [id number] [place] [address] 14604- 9986 Feb, [facility] [facility] [id number] [place] [address] 11512- 5850 Feb, Hypoxia R09.02 [place] [address] 74243- 5670 23 Feb, 2016 [facility] [address] [address] Feb, [facility] [id number] [place] [address] 42995- 1008 19 Feb, 2016 [facility] [id number] [place] [address] 05356- 0387 16 Feb, 2016 Type 2 diabetes mellitus with diabetic neuropathy, without long-term current use of insulin E11.40 [facility] [address], [place] [address] 1643 15 Feb, 2016 Osteoarthritis of both knees, unspecified osteoarthritis type M17.0 [facility] [id number] [place] [address] 57751- 6027 14 Feb, 2016 [facility] [id number] [place] [address] 03583- 5598 Feb, [facility] [address], [place] [address] 6977 09 Feb, 2016 [facility] [id number] [place] [address] 29971- 5368 15 Jan, 2016 [facility] [address], [place] [address] 6135 15 Jan, 2016 [facility] [id number] [place] [address] 93563- 3558 14 Jan, 2016 [facility] [address], [place] [address]- 0911 14 Jan, 2016 [facility] [id number] [place] [address] 76713- 8535 10 Jan, 2016 Tinea pedis of both feet B35.3 [facility] [address], [place] [address]- 9471 03 Jan, 2016 Type 2 diabetes mellitus [...] seasonality J30.9 and Encounter for immunization Z23 [facility] [address] 02494- 8158 Jan, [facility] [address] 76245- 0090 Jan, [place] [address] 56396- 2097 Dec, [place] [address] 59702- 4206 Dec, [facility] [address] 37[address] -1842 Dec, Unspecified asthma with (acute) exacerbation J45.901 and Chronic obstructive pulmonary disease with (acute) exacerbation J44.1 [place] [address] 68227- 0702 Dec, Arthritis of both knees M19.90 and Acute medial meniscus tear, right, initial encounter S83.241A [facility] [id number] [place] [address] 86035- 8728 Dec, [place] [address] 49739- 1096 Dec, [facility] [address] 28713- 9542 Dec, [facility] [id number] [place] [address] 94702- 6017 Dec, [facility] [address] 14821- 3015 11 Dec, 2015 History of pneumonia Z87.01 [facility] [address], [place] [address]- 9747 Dec, [facility] [id number] [place] [address] 76029- 7926 Dec, [facility] [id number] [place] [address] 03696- 8248 Dec, [facility] [id number] [place] [address] 77028- 6299 Dec, [facility] [id number] [place] [address] 73956- 1922 Dec, [facility] [id number] [place] [address] 79674- 3463 Dec, [facility] [id number] [place] [address] 89623- 1132 Nov, Cough R05 and Pneumonia due to infectious organism, unspecified laterality, unspecified part of lung J18.9 [facility] [id number] [place] [address] 31680- 9900 Nov, [facility] [id number] [place] [address] 33561- 8461 22 Nov, 2015 Type 2 diabetes mellitus [...] rhinitis trigger, unspecified rhinitis seasonality J30.9 [facility] [id number] [place] [address] 72118- 2490 12 Nov, 2015 IMMUNIZATIONS No Known Immunizations SOCIAL HISTORY Never Assessed REASON FOR VISIT Medication note PLAN OF CARE VITAL SIGNS MEDICATIONS Unknown Medications RESULTS No Results PROCEDURES No Known procedures INSTRUCTIONS MEDICATIONS ADMINISTERED No Known Medications MEDICAL (GENERAL) HISTORY Type Description Date Medical History hypertension Medical History chronic obstructive pulmonary disease (COPD)-wears 2L O2 per [place], uses [place] for home O2 Medical History Arthritis-knees and [...] [facility] 2014 Hospitalization History COPD exacerbation--[facility] 12/27/2015 [facility]/2016 [facility] pneumonia 11/2016 Hospitalization History COPD exacerbation - Dr Hartley Attending 12/2016 Hospitalization History Cough- [facility] [place] 04/10/2017 [facility] - Possible Pneumonia 06/2017 Hospitalization History COPD hiatal hernia 08/2017
--- OUTSIDE RECORDS SUMMARY | 2018-01-05 15:53 | XMS REPORT ---
Author Author DEBBIE RIVERA Organization [facility] Address [address] [place] [address] Care Team Providers Care Pathology Assistant Name Role Phone RIVERADEBBIE Unavailable PROBLEMS Type Condition ICD9-CM Code [id number] Code Onset Dates Condition Status SNOMED Code Problem Chronic pain syndrome G89.4 Active 665469941 Problem Gastroesophageal reflux disease without esophagitis K21.9 Active 302109109 Problem Chronic GERD K21.9 Active 471291058 Problem Unspecified urinary incontinence R32 Active 327441415 Problem Elevated transaminase level R74.0 Active 649630657 Problem 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 Active 064055370 Problem 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 Active 434815036 Problem Nocturnal hypoxemia G47.34 Active 487172043 Problem 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 Active 125190891178643 Problem Recurrent major depressive disorder, in partial 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 Active 80094697 Problem Mixed hyperlipidemia E78.2 Active 862628298 Problem Essential hypertension I10 Active 63317848 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 Active 2948019 Problem 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 Active 810216565 Problem Chronic obstructive pulmonary disease, unspecified COPD type J44.9 Active 30401384 Problem Allergic rhinitis, unspecified allergic rhinitis trigger, unspecified rhinitis seasonality J30.9 Active 17797446 Problem Anxiety F41.9 Active 37238630 Problem Type 2 diabetes mellitus with diabetic neuropathy, without long-term current use of insulin E11.40 Active 16766189 Problem Hypoxia R09.02 Active 719609088 Problem Osteoarthritis of both knees, unspecified osteoarthritis type M17.0 Active 531716333 ALLERGIES No Information ENCOUNTERS Encounter Location Date Diagnosis [facility] [id number], [place] [address] Nov, [facility] [id number] [place] [address] 39418- 4679 17 Nov, 2017 Alzheimers disease with early onset G30.0 [facility] [id number] [place] [address] 98254- 3957 14 Nov, 2017 [facility] [address] 65218- 4147 12 Nov, 2017 Unspecified urinary incontinence R32 and Unspecified contact dermatitis due to other agents L25.8 [facility] [address] 239006- 0737 11 Nov, 2017 Chronic pain syndrome G89.4 [facility] [address] 016628- 7360 10 Nov, 2017 Type 2 diabetes mellitus with diabetic neuropathy, without long-term current use of insulin E11.40 [facility] [address] 26267- 5096 Nov, [facility] [address] 94371- 6525 Nov, Chronic obstructive pulmonary disease, unspecified COPD type J44.9 and Gastroesophageal reflux disease without esophagitis K21.9 [facility] [address] 72130- 0113 Oct, [facility] [id number] [place] [address] 94245- 3894 Oct, [facility] [id number] [place] [address] 67125- 2327 Oct, Chronic pain syndrome G89.4 [facility] [id number] [place] [address] 35068- 7594 Oct, Community acquired bacterial pneumonia J15.9 ; Allergic rhinitis, unspecified allergic rhinitis trigger, unspecified rhinitis seasonality J30.9 ; Type 2 diabetes mellitus with diabetic neuropathy, without long-term current use of insulin E11.40 ; Chronic GERD K21.9 and Chronic obstructive pulmonary disease, unspecified COPD type J44.9 [facility] [address] [place] [address]- 7797 Oct, [facility] [id number] [place] [address] 50848- 8093 Oct, [facility] [id number] [place] [address] 15992- 8581 Oct, [facility] [id number] [place] [address] 01574- 8773 Oct, [facility] [id number] [place] [address] 38661- 7285 Oct, Essential hypertension I10 [facility] [id number] [place] [address] 03921- 8323 Oct, Type 2 diabetes mellitus with diabetic neuropathy, without long-term current use of insulin E11.40 ; Chronic obstructive pulmonary disease , unspecified COPD type J44.9 ; Mixed hyperlipidemia E78.2 ; Osteoarthritis of both knees, unspecified osteoarthritis type M17.0 ; Alzheimers disease with early onset 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 and Essential hypertension I10 [facility] [id number] [place] [address] 01740- 5467 Oct, [facility] [id number] [place] [address] 53048- 4296 Oct, [facility] [id number] [place] [address] 97282- 4842 Oct, Yeast dermatitis B37.2 [facility] [id number] [place] [address] 77153- 2960 Oct, Chronic pain syndrome G89.4 [facility] [id number] [place] [address] 08173- 8573 Sep, [facility] [id number] [place] [address] 32675- 5569 Sep, [facility] [id number] [place] [address] 19634- 4236 Sep, Alzheimers disease with early onset G30.0 and Chronic pain syndrome G89.4 [facility] [address], [place] [address] 0787 Sep, COPD with acute exacerbation J44.1 [facility] [id number] [place] [address] 95905- 8889 Sep, [facility] [id number] [place] [address] 42452- 8003 Sep, [facility] [id number] [place] [address] 58565- 8128 Sep, Gastroesophageal reflux disease without esophagitis K21.9 [facility] [id number] [place] [address] 25353- 2413 Aug, [facility] [id number] [place] [address] 25112- 9166 Aug, [facility] [id number] [place] [address] 54724- 7155 Aug, 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 ; Hospital discharge follow-up Z09 ; Chronic obstructive pulmonary disease, unspecified COPD type J44.9 and Chronic GERD K21.9 [facility] [id number] [place] [address] 37004- 9131 Aug, Chronic pain syndrome G89.4 [facility] [address], [place] [address] 0226 Aug, [facility] [id number] [place] [address] 22108- 4778 Aug, [facility] [id number] [place] [address] 57301- 9479 Aug, Chronic pain syndrome G89.4 and Alzheimers disease with early onset G30.0 [facility] [address], [place] [address] 5934 Aug, Type 2 diabetes mellitus with diabetic neuropathy, without long-term current use of insulin E11.40 ; Chronic obstructive pulmonary disease , unspecified COPD type J44.9 ; Chronic GERD K21.9 and 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 [facility] [id number] [place] [address] 99070- 9769 Aug, [facility] [id number] [place] [address] 23517- 8054 Aug, Essential hypertension I10 and Cough R05 [facility] [address] 37838- 9509 Aug, [facility] [id number] [place] [address] 46151- 4848 Aug, [facility] [id number] [place] [address] 46360- 6499 Aug, [facility] [id number] [place] [address] 77927- 7297 Aug, Chronic pain syndrome G89.4 [facility] [id number] [place] [address] 64114- 5489 Aug, [facility] [id number] [place] [address] 20339- 8216 Aug, [facility] [id number] [place] [address] 60774- 6823 July, Gastroesophageal reflux disease without esophagitis K21.9 [facility] [id number] [place] [address] 65322- 7640 July, [facility] [id number] [place] [address] 36540- 8625 July, [facility] [id number] [place] [address] 09057- 2343 July, [facility] [id number] [place] [address] 01175- 1282 July, Essential hypertension I10 and Chronic pain syndrome G89.4 [facility] [id number] [place] [address] 30654- 7252 July, Gastroesophageal reflux disease without esophagitis K21.9 [facility] [id number] [place] [address] 43561- 2078 July, Alzheimers disease with early onset G30.0 [facility] [id number] [place] [address] 34469- 6399 July, Chronic obstructive pulmonary disease, unspecified COPD type J44.9 ; Nocturnal cough R05 ; 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 and Recurrent major depressive disorder, in partial 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 [facility] [id number] [place] [address] 49170- 1756 July, [facility] [address] 52769- 6232 July, Type 2 diabetes mellitus with diabetic neuropathy, without long-term current use of insulin E11.40 [facility] [address] 59636- 6114 July, Nocturnal hypoxemia G47.34 ; Chronic obstructive pulmonary disease, unspecified COPD type J44.9 and Nocturnal cough R05 [facility] [id number] [place] [address] 59901- 7086 July, [facility] [id number] [place] [address] 01785- 1715 July, [facility] [id number] [place] [address] 79837- 4421 July, [facility] [id number] [place] [address] 28459- 0692 Jun, Chronic pain syndrome G89.4 [facility] [address] 30876- 2486 Jun, [facility] [id number] [place] [address] 34562- 5219 Jun, [facility] [id number] [place] [address] 91598- 6856 Jun, Alzheimers disease with early onset G30.0 [facility] [id number] [place] [address] 57565- 7719 Jun, [facility] [id number] [place] [address] 38958- 5226 Jun, Gastroesophageal reflux disease without esophagitis K21.9 [facility] [address] 57095- 7279 Jun, Allergic rhinitis, unspecified allergic rhinitis trigger, unspecified rhinitis seasonality J30.9 [facility] [id number] [place] [address] 43855- 0414 Jun, Chronic pain syndrome G89.4 [facility] [id number] [place] [address] 21634- 2727 May, [facility] [address] 73446- 0933 May, COPD with acute exacerbation J44.1 [facility] [id number] [place] [address] 48745- 1648 14 May, 2017 Type 2 diabetes mellitus with diabetic neuropathy, without long-term current use of insulin E11.40 ; COPD with acute exacerbation J44.1 ; Hypoxia R09.02 ; Chronic pain syndrome G89.4 ; Yeast dermatitis B37.2 ; Alzheimers disease with early onset G30.0 and 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 [facility] [id number] [place] [address] 86852- 7777 May, [facility] [id number] [place] [address] 42624- 4228 May, Chronic pain syndrome G89.4 [facility] [id number] [place] [address] 10642- 1618 May, [facility] [id number] [place] [address] 90781- 9536 May, [facility] [address] [address]- 3078 19 May, 2017 Mixed hyperlipidemia E78.2 [facility] [address], [place] [address]- 3647 15 May, 2017 Chronic pain syndrome G89.4 [facility] [address], [place] [address]- 7827 May, Anxiety F41.9 and Chronic pain syndrome G89.4 [facility] [address], [place] [address]- 3043 Mar, [facility] [id number] [place] [address] 02255- 3114 Mar, [facility] [id number] [place] [address] 97789- 2759 Mar, [facility] [id number] [place] [address] 85423- 9962 Mar, [facility] [address], [place] [address]- 8076 Mar, [facility] [id number] [place] [address] 91122- 3992 Mar, Anxiety F41.9 and Chronic pain syndrome G89.4 [facility] [address], [place] [address]- 6353 Mar, Medicare annual wellness visit, initial Z00.00 [...] L57.0 [facility] [id number] [place] [address] 53429- 1927 Mar, [facility] [id number] [place] [address] 79706- 6196 Mar, Chronic pain syndrome G89.4 [facility] [id number] [place] [address] 93438- 3058 Feb, [facility] [id number] [place] [address] 30028- 7546 Feb, Chronic pain syndrome G89.4 [facility] [id number] [place] [address] 11947- 2635 Feb, [facility] [id number] [place] [address] 44007- 1985 Feb, [facility] [id number] [place] [address] 28139- 6306 Feb, Anxiety F41.9 [facility] [id number] [place] [address] 40570- 1020 Feb, [facility] [id number] [place] [address] 96991- 7471 Feb, Chronic pain syndrome G89.4 [facility] [id number] [place] [address] 47428- 0270 Jan, Essential hypertension I10 [facility] [id number] [place] [address] 38749- 4395 Jan, Chronic pain syndrome G89.4 [facility] [id number] [place] [address] 56936- 1808 Jan, [facility] [id number] [place] [address] 70283- 5879 Jan, Anxiety F41.9 [facility] [id number] [place] [address] 97421- 4202 Jan, Encounter for immunization Z23 and Community acquired pneumonia, unspecified laterality J18.9 [facility] [id number] [place] [address] 64544- 0336 Jan, Type 2 diabetes mellitus with diabetic neuropathy, without long-term current use of insulin E11.40 [facility] [id number] [place] [address] 46732- 4452 Dec, Anxiety F41.9 and Chronic pain syndrome G89.4 [facility] [address] 75926- 1323 Dec, Chronic pain syndrome G89.4 and Essential hypertension I10 [facility] [address] 41696- 6975 Dec, [facility] [id number] [place] [address] 43418- 3888 Dec, Anxiety F41.9 [facility] [id number] [place] [address] 61437- 7470 Dec, [facility] [id number] [place] [address] 28154- 7876 Dec, Type 2 diabetes mellitus with diabetic neuropathy, without long-term current use of insulin E11.40 ; Lactic acidosis E87.2 ; Chronic obstructive pulmonary disease, unspecified COPD type J44.9 and Encounter for immunization Z23 [facility] [id number] [place] [address] 30825- 9344 Dec, Chronic pain syndrome G89.4 [facility] [id number] [place] [address] 32180- 8304 Nov, [facility] [id number] [place] [address] 97361- 5521 Nov, Chronic pain syndrome G89.4 [facility] [id number] [place] [address] 40816- 7969 Nov, [facility] [id number] [place] [address] 30272- 3973 Nov, [facility] [address], [place] [address]- 1697 Nov, Anxiety F41.9 [facility] [id number] [place] [address] 38938- 3020 Nov, Anxiety F41.9 [facility] [id number] [place] [address] 72687- 0756 Nov, [facility] [id number] [place] [address] 03579- 0930 Nov, [facility] [id number] [place] [address] 03422- 4594 Nov, [facility] [id number] [place] [address] 41836- 8529 Oct, [facility] [id number] [place] [address] 65113- 0364 Oct, [facility] [id number] [place] [address] 06331- 9653 Oct, [facility] [id number] [place] [address] 20235- 7915 Oct, Essential hypertension I10 and Chronic pain syndrome G89.4 [facility] [id number] [place] [address] 19684- 6179 Oct, Anxiety F41.9 [facility] [id number] [place] [address] 31937- 6940 Oct, [facility] [id number] [place] [address] 79132- 2340 Oct, Chronic pain syndrome G89.4 [facility] [id number] [place] [address] 76378 -5135 Oct, Sore throat J02.9 and Acute nasopharyngitis (common cold) J00 [facility] [id number] [place] [address] 35825- 0403 Sep, [facility] [address], [place] [address]- 4585 Sep, COPD exacerbation J44.1 [facility] [id number] [place] [address] 07543- 1196 Sep, Chronic pain syndrome G89.4 [facility] [id number] [place] [address] 89643- 2956 Sep, Essential hypertension I10 [facility] [id number] [place] [address] 94793- 8723 Sep, [facility] [id number] [place] [address] 77527- 1469 Sep, [facility] [id number] [place] [address] 86557- 7793 Sep, Anxiety F41.9 [facility] [id number] [place] [address] 13800- 1065 Sep, Chronic pain syndrome G89.4 [facility] [id number] [place] [address] 23714- 2019 Sep, [facility] [id number] [place] [address] 16391- 8121 Aug, Acute seasonal allergic rhinitis, unspecified trigger J30.2 ; Hiatal hernia K44.9 and Chronic pain syndrome G89.4 [facility] [id number] [address]- 3029 Aug, [facility] [address], [place] [address]- 2543 Aug, [facility] [id number] [place] [address] 79911- 5910 Aug, Chronic obstructive pulmonary disease, unspecified COPD type J44.9 [facility] [address] [address]- 0614 Aug, Anxiety F41.9 [facility] [id number] [place] [address] 52136- 7136 08 Aug, 2016 Chronic pain syndrome G89.4 [facility] [id number] [place] [address] 12104- 6678 07 Aug, 2016 Hiatal hernia K44.9 and Actinic keratosis L57.0 [facility] [id number] [place] [address] [id number]- [phone] Aug, [facility] [id number] [place] [address] 14511- 5985 Aug, Anxiety F41.9 [facility] [id number] [place] [address] 31112- 8123 July, [facility] [id number] [place] [address] 47742- 6696 July, Hiatal hernia K44.9 [facility] [id number] [place] [address] 18257- 4859 July, [facility] [id number] [place] [address] 28020- 6664 July, Anxiety F41.9 and Chronic pain syndrome G89.4 [facility] [id number] [place] [address] [id number]- 5494 July, [facility] [id number] [place] [address] 13506- 0593 Jun, Chronic pain syndrome G89.4 [facility] [id number] [place] [address] 26904- 0456 Jun, Chronic pain syndrome G89.4 [facility] [id number] [place] [address] 44744- 8799 Jun, [facility] [id number] [place] [address] 34664- 4577 Jun, Anxiety F41.9 [facility] [id number] [place] [address] 96917- 3550 Jun, Allergic rhinitis, unspecified allergic rhinitis trigger, unspecified rhinitis seasonality J30.9 [facility] [id number] [place] [address] 65709- 5524 Jun, [facility] [id number] [place] [address] 31647- 3405 May, Chronic pain syndrome G89.4 [facility] [address] [address]294- 5979 May, [facility] [id number] [place] [address] 54756- 1788 May, [facility] [address] 09[address]- 0610 May, Anxiety F41.9 [facility] [id number] [place] [address] 07960- 6130 May, Type 2 diabetes mellitus with diabetic [...] Anxiety F41.9 and Chronic pain syndrome G89.4 [place] [id number] [place] [address] 44980- 7915 May, Essential hypertension I10 ; Type 2 diabetes mellitus with diabetic neuropathy, without long-term current use of insulin E11.40 ; Mixed hyperlipidemia E78.2 ; Chronic obstructive pulmonary disease, unspecified COPD type J44.9 and Chronic GERD K21.9 [place] [address] [place] [id number] [place] [address] 49609- 4001 May, [facility] [address] [place] [id number] [place] [address] 45293- 9708 May, [facility] [address] [place] [id number] [place] [address] 89273- 7310 May, Type 2 diabetes mellitus with diabetic neuropathy, without long-term current use of insulin E11.40 [facility] [address] [place] [id number] [place] [address] 44451- 5460 May, Dementia without behavioral disturbance, unspecified dementia type F03.90 [facility] [address] [place] [id number] [place] [address] 95539- 6334 May, Type 2 diabetes mellitus with diabetic neuropathy, without long-term current use of insulin E11.40 ; Essential hypertension I10 ; Mixed hyperlipidemia E78.2 ; Chronic obstructive pulmonary disease, unspecified COPD type J44.9 ; Chronic GERD K21.9 and Osteoarthritis of both knees, unspecified osteoarthritis type M17.0 [place] [address] [place] [id number] [place] [address] 63150- 0394 May, [place] [address] 61515- 0720 May, [place] [address] [place] [id number] [place] [address] 06077- 4771 May, Anxiety F41.9 and Unspecified symptoms and signs involving cognitive functions and awareness R41.9 [place] [address] [place] [id number] [place] [address] 71622- 8512 May, [facility] [address] [place] [id number] [place] [address] 41187- 0825 May, Type 2 diabetes mellitus with diabetic neuropathy, without long-term current use of insulin E11.40 ; Anxiety F41.9 and Chronic obstructive pulmonary disease, unspecified COPD type J44.9 [facility] [address] [place] [id number] [place] [address] 47025- 1097 May, [facility] [address] [place] [id number] [place] [address] 08885- 4641 May, [place] [address] [place] [id number] [place] [address] 78744- 3029 May, [place] [address] [place] [id number] [place] [address] 36222- 0051 May, Chronic obstructive pulmonary disease, unspecified COPD type J44.9 [place] [address] [place] [id number] [place] [address] 99213- 9664 Mar, [place] [address] 54862- 6732 Mar, Arthritis of both knees M19.90 [place] [address] 56205- 6227 Mar, Type 2 diabetes mellitus with diabetic neuropathy, without long-term current use of insulin E11.40 [place] [address] [place] [id number] [place] [address] 33592- 9020 Mar, [place] [address] 64635- 0042 Mar, Neck pain M54.2 and Weakness generalized R53.1 [place] [address] [place] [id number] [place] [address] 97488- 4505 Mar, [place] [address] 38534- 9218 Mar, Cervicalgia M54.2 and Impacted cerumen of both ears H61.23 [place] [address] [place] [id number] [place] [address] 42425- 8788 Mar, [place] [address] [place] [id number] [place] [address] 56265- 9849 Mar, Type 2 diabetes mellitus with diabetic neuropathy, without long-term current use of insulin E11.40 [facility] [address] [place] [id number] [place] [address] 78915- 5221 Feb, [place] [address] [place] [id number] [place] [address] 34127- 6042 Feb, Hypoxia R09.02 [place] [address] 94840- 7911 23 Feb, 2016 [facility] [address] [address] Feb, [facility] [id number] [place] [address] 00776- 6638 19 Feb, 2016 [facility] [address] [place] [id number] [place] [address] 78711- 6629 16 Feb, 2016 Type 2 diabetes mellitus with diabetic neuropathy, without long-term current use of insulin E11.40 [facility] [address] [address] 6398 15 Feb, 2016 Osteoarthritis of both knees, unspecified osteoarthritis type M17.0 [facility] [id number] [place] [address] 05190- 9571 14 Feb, 2016 [facility] [address] [place] [id number] [place] [address] 21492- 0566 Feb, [facility] [address] [address]- 0785 09 Feb, 2016 [facility] [id number] [place] [address] 36303- 4240 15 Jan, 2016 [facility] [address] [address]- 2978 15 Jan, 2016 [facility] [id number] [place] [address] 35365- 1756 14 Jan, 2016 [facility] [address] [address]- 8563 14 Jan, 2016 [facility] [id number] [place] [address] 65444- 8336 10 Jan, 2016 Tinea pedis of both feet B35.3 [facility] [address] [address] 4077 03 Jan, 2016 Type 2 diabetes mellitus [...] for immunization Z23 [facility] [address] 79170- 4590 Jan, [facility] [address] 41796- 2617 Jan, [place] [address] 59018- 0266 Dec, [place] [address] 28500- 9569 Dec, [facility] [address] 73502 -5441 Dec, Unspecified asthma with (acute) exacerbation J45.901 and Chronic obstructive pulmonary disease with (acute) exacerbation J44.1 [place] [address] 09525- 3257 Dec, Arthritis of both knees M19.90 and Acute medial meniscus tear, right, initial encounter S83.241A [place] [address] [place] [id number] [place] [address] 39084- 6441 Dec, [place] [address] 22668- 2010 Dec, [facility] [address] 08651- 9123 Dec, [facility] [address] [place] [id number] [place] [address] 55332- 5225 Dec, [facility] [address] 57129- 2998 11 Dec, 2015 History of pneumonia Z87.01 [facility] [address] [address]- 4759 Dec, [facility] [address] [place] [id number] [place] [address] 54542- 6320 Dec, [facility] [address] [place] [id number] [place] [address] 64968- 0770 Dec, [facility] [address] [place] [id number] [place] [address] 31571- 8212 Dec, [facility] [address] [place] [id number] [place] [address] 73912- 7414 Dec, [facility] [address] [place] [id number] [place] [address] 23902- 5211 Dec, [place] [address] [place] [id number] [place] [address] 81878- 7160 Nov, Cough R05 and Pneumonia due to infectious organism, unspecified laterality, unspecified part of lung J18.9 [place] [address] [place] [id number] [place] [address] 64801- 7926 Nov, [place] [address] [place] [id number] [place] [address] 61252- 8446 22 Nov, 2015 Type 2 diabetes mellitus [...] J30.9 [facility] [id number] [place] [address] 80848- 7459 12 Nov, 2015 IMMUNIZATIONS No Known Immunizations SOCIAL HISTORY Never Assessed REASON FOR VISIT HH call/ Tramadol PLAN OF CARE VITAL SIGNS MEDICATIONS Unknown Medications RESULTS No Results PROCEDURES No Known procedures INSTRUCTIONS MEDICATIONS ADMINISTERED No Known Medications MEDICAL (GENERAL) HISTORY Type Description Date Medical History hypertension Medical History chronic obstructive pulmonary disease (COPD)-wears 2L O2 per [place], uses [employer] for home O2 Medical History Arthritis-knees and [...] History TURP 2003 Surgical History EGD Colonoscopy [facility] 06/06/2016 Hospitalization History TIA, [facility] 2014 Hospitalization History COPD exacerbation--[facility] 12/27/2015 [facility] - [facility] 02/2016 Hospitalization History [facility] pneumonia 11/2016 Hospitalization History COPD exacerbation - Dr Hartley Attending 12/2016 Hospitalization History Cough- [facility] 04/10/2017 Hospitalization History [facility] - Possible Pneumonia 06/2017 Hospitalization History COPD hiatal hernia 08/2017
--- OUTSIDE RECORDS SUMMARY | 2018-01-05 15:54 | XMS REPORT ---
Author Author DARIN HARTLEY [facility] Address [address] 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 Active 172535922 Problem Nocturnal hypoxemia G47.34 Active 124321438 Problem 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 Active 817281206541818 Problem Recurrent major depressive disorder, in partial 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 Active 84354229 Problem Mixed hyperlipidemia E78.2 Active 194711506 Problem Essential hypertension I10 Active 09282302 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 Active 9512300 Problem 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 Active 807884331 Problem Chronic obstructive pulmonary disease, unspecified COPD type J44.9 Active 83641020 Problem Allergic rhinitis, unspecified allergic rhinitis trigger, unspecified rhinitis seasonality J30.9 Active 24332019 Problem Anxiety F41.9 Active 41186442 Problem Type 2 diabetes mellitus with diabetic neuropathy, without long-term current use of insulin E11.40 Active 65124661 Problem Hypoxia R09.02 Active 770254210 Problem Osteoarthritis of both knees, unspecified osteoarthritis type M17.0 Active 568493838 ALLERGIES No Information ENCOUNTERS Encounter Location Date Diagnosis [facility] [address] [facility] [id number] [address] Nov, [facility] [id number] [place] [address] 10116- 5521 17 Nov, 2017 [place] [id number] [place] [address] 73157- 6359 14 Nov, 2017 [place] [id number] [place] [address] 54517- 1016 12 Nov, 2017 Unspecified urinary incontinence R32 and Unspecified contact dermatitis due to other agents L25.8 [place] [address] 11630- 0081 11 Nov, 2017 Chronic pain syndrome G89.4 [place] [id number] [place] [address] 04512- 0272 10 Nov, 2017 Type 2 diabetes mellitus with diabetic neuropathy, without long-term current use of insulin E11.40 [place] [id number] [place] [address] 89935- 3917 Nov, [place] [id number] [place] [address] 40609- 7651 Nov, Chronic obstructive pulmonary disease, unspecified COPD type J44.9 and Gastroesophageal reflux disease without esophagitis K21.9 [place] [id number] [place] [address] 81488- 9478 Oct, [place] [id number] [place] [address] 39262- 5224 Oct, [place] [id number] [place] [address] 24739- 4152 Oct, Chronic pain syndrome G89.4 [place] [id number] [place] [address] 29619- 1065 Oct, Community acquired bacterial pneumonia J15.9 ; Allergic rhinitis, unspecified allergic rhinitis trigger, unspecified rhinitis seasonality J30.9 ; Type 2 diabetes mellitus with diabetic neuropathy, without long-term current use of insulin E11.40 ; Chronic GERD K21.9 and Chronic obstructive pulmonary disease, unspecified COPD type J44.9 [place] [id number] [place] [address] 04523- 9623 Oct, [facility] [address] [address] 0[address] Oct, [facility] [id number] [place] [address] 45404- 0166 Oct, [facility] [id number] [place] [address] 13772- 1177 Oct, [facility] [id number] [place] [address] 90216- 3167 Oct, Essential hypertension I10 [facility] [id number] [place] [address] 48567- 4102 Oct, Type 2 diabetes mellitus with diabetic neuropathy, without long-term current use of insulin E11.40 ; Chronic obstructive pulmonary disease , unspecified COPD type J44.9 ; Mixed hyperlipidemia E78.2 ; Osteoarthritis of both knees, unspecified osteoarthritis type M17.0 ; Alzheimers disease with early onset 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 and Essential hypertension I10 [facility] [address] [address] 3[address] Oct, [facility] [id number] [place] [address] 09716- 9941 Oct, [facility] [id number] [place] [address] 63028- 5295 Oct, Yeast dermatitis B37.2 [facility] [id number] [place] [address] 39355- 0062 Oct, Chronic pain syndrome G89.4 [facility] [address] [address] 2905 Sep, [facility] [id number] [place] [address] 77060- 7400 Sep, [facility] [id number] [place] [address] 10835- 9513 Sep, Alzheimers disease with early onset G30.0 and Chronic pain syndrome G89.4 [facility] [address] [address] 1370 Sep, COPD with acute exacerbation J44.1 [facility] [id number] [place] [address] 92693- 0676 Sep, [facility] [id number] [place] [address] 41803- 5508 Sep, [facility] [id number] [place] [address] 84742- 5844 Sep, Gastroesophageal reflux disease without esophagitis K21.9 [facility] [id number] [place] [address] 58081- 3543 Aug, [facility] [id number] [place] [address] 27293- 2976 Aug, [place] [id number] [place] [address] 17014- 5206 Aug, 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 ; Hospital discharge follow-up Z09 ; Chronic obstructive pulmonary disease, unspecified COPD type J44.9 and Chronic GERD K21.9 [place] [id number] [place] [address] 40422- 0478 Aug, Chronic pain syndrome G89.4 [place] [id number] [place] [address] 50232- 3305 Aug, [place] [id number] [place] [address] 19601- 4045 Aug, [facility] [address] [place] [address] 69498- 0044 Aug, Chronic pain syndrome G89.4 and Alzheimers disease with early onset G30.0 [facility] [address] [place] [address] 90010- 3584 Aug, Type 2 diabetes mellitus with diabetic neuropathy, without long-term current use of insulin E11.40 ; Chronic obstructive pulmonary disease , unspecified COPD type J44.9 ; Chronic GERD K21.9 and 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 [facility] [address] [address] 5114 Aug, [facility] [id number] [place] [address] 48992- 2572 Aug, Essential hypertension I10 and Cough R05 [facility] [id number] [place] [address] 62214- 0991 Aug, [facility] [id number] [place] [address] 76345- 3463 Aug, [facility] [id number] [place] [address] 31014- 0280 Aug, [facility] [id number] [place] [address] 85561- 8029 Aug, Chronic pain syndrome G89.4 [facility] [id number] [place] [address] 90208- 5090 Aug, [facility] [id number] [place] [address] 29684- 3163 Aug, [facility] [id number] [place] [address] 53553- 5069 July, Gastroesophageal reflux disease without esophagitis K21.9 [facility] [id number] [place] [address] 98614- 2457 July, [facility] [id number] [place] [address] 47823- 6191 July, [facility] [address], [place] [address]- 1656 July, [facility] [id number] [place] [address] 29757- 7141 July, Essential hypertension I10 and Chronic pain syndrome G89.4 [facility] [id number] [place] [address] 23085- 6493 July, Gastroesophageal reflux disease without esophagitis K21.9 [place] [id number] [place] [address] 76503- 0558 July, Alzheimers disease with early onset G30.0 [place] [id number] [place] [address] 51835- 7305 July, Chronic obstructive pulmonary disease, unspecified COPD type J44.9 ; Nocturnal cough R05 ; 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 and Recurrent major depressive disorder, in partial 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 [place] [id number] [place] [address] 81567- 8223 July, [place] [address] 42246- 1527 July, Type 2 diabetes mellitus with diabetic neuropathy, without long-term current use of insulin E11.40 [place] [address] 87024- 2767 July, Nocturnal hypoxemia G47.34 ; Chronic obstructive pulmonary disease, unspecified COPD type J44.9 and Nocturnal cough R05 [place] [id number] [place] [address] 04623- 4525 July, [place] [id number] [place] [address] 26222- 7210 July, [place] [id number] [place] [address] 24681- 7466 July, [place] [id number] [place] [address] 99078- 7471 Jun, Chronic pain syndrome G89.4 [place] [id number] [place] [address] 85903- 7383 Jun, [place] [id number] [place] [address] 27213- 8382 Jun, [place] [id number] [place] [address] 85378- 4426 Jun, Alzheimers disease with early onset G30.0 [place] [id number] [place] [address] 17222- 4604 Jun, [place] [address] 55295- 5098 10 Jun, 2017 Gastroesophageal reflux disease without esophagitis K21.9 [place] [id number] [place] [address] 22052- 1222 04 Jun, 2017 Allergic rhinitis, unspecified allergic rhinitis trigger, unspecified rhinitis seasonality J30.9 [place] [id number] [place] [address] 14593- 3519 Jun, Chronic pain syndrome G89.4 [place] [id number] [place] [address] 30316- 4673 May, [place] [address] 97311- 6613 May, COPD with acute exacerbation J44.1 [place] [id number] [place] [address] 80045- 2925 14 May, 2017 Type 2 diabetes mellitus with diabetic neuropathy, without long-term current use of insulin E11.40 ; COPD with acute exacerbation J44.1 ; Hypoxia R09.02 ; Chronic pain syndrome G89.4 ; Yeast dermatitis B37.2 ; Alzheimers disease with early onset G30.0 and 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 [place] [id number] [place] [address] 93853- 3055 May, [place] [id number] [place] [address] 32996- 3914 May, Chronic pain syndrome G89.4 [place] [id number] [place] [address] 21487- 9837 May, [place] [id number] [place] [address] 40608- 9815 May, [place] [address] 48915- 0525 19 May, 2017 Mixed hyperlipidemia E78.2 [facility] [address] [address] 2002 15 May, 2017 Chronic pain syndrome G89.4 [facility] [id number] [place] [address] 50743- 3180 May, Anxiety F41.9 and Chronic pain syndrome G89.4 [facility] [id number] [place] [address] 09704- 6664 Mar, [facility] [id number] [place] [address] 07176- 8327 Mar, [facility] [id number] [place] [address] 02411- 0281 Mar, [facility] [id number] [place] [address] 21815- 7783 Mar, [facility] [id number] [place] [address] 02775- 3608 Mar, [facility] [id number] [place] [address] 09496- 1241 Mar, Anxiety F41.9 and Chronic pain syndrome G89.4 [facility] [address] [place] [address] 49191- 7719 Mar, Medicare annual wellness visit, initial Z00.00 [...] Hiatal hernia K44.9 and Actinic keratosis L57.0 [facility] [address], [place] [address]- 8862 Mar, [facility] [id number] [place] [address] 96515- 6515 Mar, Chronic pain syndrome G89.4 [facility] [id number] [place] [address] 44366- 7038 Feb, [facility] [id number] [place] [address] 75906- 8135 Feb, Chronic pain syndrome G89.4 [facility] [id number] [place] [address], [place] [address]- 6146 Feb, [facility] [id number] [place] [address] 95522- 9175 Feb, [facility] [id number] [place] [address] 63181- 9062 Feb, Anxiety F41.9 [facility] [id number] [place] [address] 49643- 7167 Feb, [facility] [id number] [place] [address] 04593- 7314 Feb, Chronic pain syndrome G89.4 [facility] [id number] [place] [address] 79526- 0542 Jan, Essential hypertension I10 [facility] [id number] [place] [address] 96664- 5559 Jan, Chronic pain syndrome G89.4 [facility] [address], [place] [address]- 3233 Jan, [facility] [id number] [place] [address] 45134- 9493 Jan, Anxiety F41.9 [facility] [id number] [place] [address] 44913- 6803 Jan, Encounter for immunization Z23 and Community acquired pneumonia, unspecified laterality J18.9 [facility] [id number] [place] [address] 18248- 9478 Jan, Type 2 diabetes mellitus with diabetic neuropathy, without long-term current use of insulin E11.40 [facility] [id number] [place] [address] 97975- 8165 Dec, Anxiety F41.9 and Chronic pain syndrome G89.4 [facility] [id number] [place] [address] 87382- 9228 Dec, Chronic pain syndrome G89.4 and Essential hypertension I10 [facility] [address] 55211- 8332 Dec, [place] [id number] [place] [address] 46216- 0548 Dec, Anxiety F41.9 [place] [id number] [place] [address] 83003- 7100 Dec, [facility] [id number] [place] [address] 13249- 7338 Dec, Type 2 diabetes mellitus with diabetic neuropathy, without long-term current use of insulin E11.40 ; Lactic acidosis E87.2 ; Chronic obstructive pulmonary disease, unspecified COPD type J44.9 and Encounter for immunization Z23 [facility] [id number] [place] [address] 04188- 9257 Dec, Chronic pain syndrome G89.4 [facility] [id number] [place] [address] 33770- 7111 Nov, [facility] [id number] [place] [address] 09280- 5965 Nov, Chronic pain syndrome G89.4 [facility] [id number] [place] [address] 45060- 2489 Nov, [facility] [id number] [place] [address] 28984- 9160 Nov, [facility] [address] [address]- 4119 15 Nov, 2016 Anxiety F41.9 [facility] [id number] [place] [address] 87713- 8968 11 Nov, 2016 Anxiety F41.9 [facility] [id number] [place] [address] 30390- 0158 08 Nov, 2016 [facility] [id number] [place] [address] 05428- 0858 Nov, [facility] [id number] [place] [address] 26069- 4108 Nov, [facility] [id number] [place] [address] 30316- 3597 Oct, [facility] [id number] [place] [address] 21287- 5829 Oct, [facility] [id number] [place] [address] 27921- 1593 Oct, [facility] [id number] [place] [address] 79841- 9418 Oct, Essential hypertension I10 and Chronic pain syndrome G89.4 [facility] [id number] [place] [address] 77783- 6264 Oct, Anxiety F41.9 [facility] [id number] [place] [address] 26012- 2757 Oct, [facility] [id number] [place] [address] 40925- 9793 Oct, Chronic pain syndrome G89.4 [facility] [id number] [place] [address] 23019 -2269 Oct, Sore throat J02.9 and Acute nasopharyngitis (common cold) J00 [facility] [address], [place] [address]- 2094 Sep, [facility] [id number] [place] [address] 22880- 8892 Sep, COPD exacerbation J44.1 [facility] [id number] [place] [address] 84747- 5340 Sep, Chronic pain syndrome G89.4 [facility] [id number] [place] [address] 73750- 0167 Sep, Essential hypertension I10 [facility] [id number] [place] [address] 58999- 1705 Sep, [facility] [id number] [place] [address] 59497- 8549 Sep, [facility] [id number] [place] [address] 56366- 7820 Sep, Anxiety F41.9 [facility] [id number] [place] [address] 28519- 1254 Sep, Chronic pain syndrome G89.4 [facility] [id number] [place] [address] 90350- 4782 Sep, [facility] [id number] [place] [address] 68971- 2508 Aug, Acute seasonal allergic rhinitis, unspecified trigger J30.2 ; Hiatal hernia K44.9 and Chronic pain syndrome G89.4 [facility] [id number] [place] [address] 54858- 1897 Aug, [facility] [id number] [place] [address] 99085- 6767 Aug, [facility] [id number] [place] [address] 50247- 8575 Aug, Chronic obstructive pulmonary disease, unspecified COPD type J44.9 [facility] [id number] [place] [address] 46941- 0650 Aug, Anxiety F41.9 [facility] [id number] [place] [address] 50705- 2259 08 Aug, 2016 Chronic pain syndrome G89.4 [facility] [id number] [place] [address] 62234- 1055 07 Aug, 2016 Hiatal hernia K44.9 and Actinic keratosis L57.0 [facility] [id number] [place] [address] 96289- 5586 Aug, [facility] [id number] [place] [address] 89497- 2205 Aug, Anxiety F41.9 [facility] [id number] [place] [address] 19886- 3145 July, [facility] [id number] [place] [address] 97243- 6057 July, Hiatal hernia K44.9 [facility] [id number] [place] [address] 87844- 6254 July, [facility] [id number] [place] [address] 04887- 6676 July, Anxiety F41.9 and Chronic pain syndrome G89.4 [facility] [id number] [place] [address] 50156- 7901 July, [facility] [id number] [place] [address] 72577- 2631 Jun, Chronic pain syndrome G89.4 [facility] [id number] [place] [address] 34159- 4939 Jun, Chronic pain syndrome G89.4 [facility] [id number] [place] [address] 44634- 4953 Jun, [facility] [id number] [place] [address] 16645- 5610 Jun, Anxiety F41.9 [facility] [id number] [place] [address] 82085- 4055 Jun, Allergic rhinitis, unspecified allergic rhinitis trigger, unspecified rhinitis seasonality J30.9 [place] [id number] [place] [address] 16078- 8802 Jun, [facility] [id number] [place] [address] 09811- 9669 May, Chronic pain syndrome G89.4 [place] [address] 84085- 7866 May, [place] [address] 82534- 7243 May, [place] [address] 97575- 3690 May, Anxiety F41.9 [facility] [id number] [place] [address] 36440- 5087 May, Type 2 diabetes mellitus with diabetic [...] Anxiety F41.9 and Chronic pain syndrome G89.4 [facility] [id number] [place] [address] 39014- 1948 May, Essential hypertension I10 ; Type 2 diabetes mellitus with diabetic neuropathy, without long-term current use of insulin E11.40 ; Mixed hyperlipidemia E78.2 ; Chronic obstructive pulmonary disease, unspecified COPD type J44.9 and Chronic GERD K21.9 [facility] [id number] [place] [address] [id number]- 1045 May, [place] [address] [place] [id number] [place] [address] 02488- [phone] May, [place] [address] [place] [id number] [place] [address] 96942- 8732 May, Type 2 diabetes mellitus with diabetic neuropathy, without long-term current use of insulin E11.40 [place] [address] [place] [id number] [place] [address] [id number]- 6878 May, Dementia without behavioral disturbance, unspecified dementia type F03.90 [place] [address] [place] [id number] [place] [address] [id number]- 3283 May, Type 2 diabetes mellitus with diabetic neuropathy, without long-term current use of insulin E11.40 ; Essential hypertension I10 ; Mixed hyperlipidemia E78.2 ; Chronic obstructive pulmonary disease, unspecified COPD type J44.9 ; Chronic GERD K21.9 and Osteoarthritis of both knees, unspecified osteoarthritis type M17.0 [place] [address] [place] [id number] [place] [address] 25447- 4140 May, [place] [address] [place] [id number] [place] [address] 19842- 0583 May, [place] [address] [phone]- [address] May, Anxiety F41.9 and Unspecified symptoms and signs involving cognitive functions and awareness R41.9 [facility] [address] [place] [id number] [place] [address] 07200- 6961 May, [facility] [facility] [address] [place] [address] [id number] [place] [address] 92599- 0476 May, Type 2 diabetes mellitus with diabetic neuropathy, without long-term current use of insulin E11.40 ; Anxiety F41.9 and Chronic obstructive pulmonary disease, unspecified COPD type J44.9 [place] [address] [place] [id number] [place] [address] 80416- 9678 May, [facility] [address] [place] [address] [id number] [place] [address] 87965- 7062 May, [facility] [address] [place] [address] [id number] [place] [address] 25162- 2550 May, [place] [facility] [address] [place] [address] [id number] [place] [address] 41873- 3770 May, Chronic obstructive pulmonary disease, unspecified COPD type J44.9 [place] [address] 68803- 7935 Mar, [place] [address] 08157- 6919 Mar, Arthritis of both knees M19.90 [place] [address] 98507- 8973 Mar, Type 2 diabetes mellitus with diabetic neuropathy, without long-term current use of insulin E11.40 [facility] [address] 18889- 0763 Mar, [place] [address] 74086- 9496 Mar, Neck pain M54.2 and Weakness generalized R53.1 [place] [address] 60741- 1210 Mar, [place] [address] 80038- 2754 Mar, Cervicalgia M54.2 and Impacted cerumen of both ears H61.23 [place] [address] 38248- 6787 Mar, [place] [address] 79406- 4105 Mar, Type 2 diabetes mellitus with diabetic neuropathy, without long-term current use of insulin E11.40 [place] [address] 85605- 5890 Feb, [place] [address] 71044- 0382 Feb, Hypoxia R09.02 [place] [address] 76597- 8450 Feb, [facility] [address] [address] 15[address] Feb, [facility] [id number] [place] [address] 12468- 8357 Feb, [facility] [id number] [place] [address] 36620- 9699 16 Feb, 2016 Type 2 diabetes mellitus with diabetic neuropathy, without long-term current use of insulin E11.40 [facility] [id number] [place] [address] 89554- 6700 15 Feb, 2016 Osteoarthritis of both knees, unspecified osteoarthritis type M17.0 [facility] [address] [id number] [place] [address] 89335- 5753 14 Feb, 2016 [facility] [id number] [place] [address] 61940- 8653 Feb, [facility] [id number] [place] [address] 78010- 7696 Feb, [facility] [id number] [place] [address] 72246- 0501 15 Jan, 2016 [facility] [id number] [place] [address] 34614- 5509 15 Jan, 2016 [facility] [id number] [place] [address] 67388- 4743 Jan, [facility] [id number] [place] [address] 02281- 3312 14 Jan, 2016 [facility] [id number] [place] [address] 08567- 3189 10 Jan, 2016 Tinea pedis of both feet B35.3 [facility] [id number] [address] 7734 03 Jan, 2016 Type 2 diabetes mellitus [...] seasonality J30.9 and Encounter for immunization Z23 [facility] [address] 19820- 0802 Jan, [place] [address] 74148- 4716 Jan, [place] [address] 02057- 5512 Dec, [place] [address] 31431- 4845 Dec, [facility] [address] 23406 -0997 Dec, Unspecified asthma with (acute) exacerbation J45.901 and Chronic obstructive pulmonary disease with (acute) exacerbation J44.1 [place] [address] 99496- 7750 Dec, Arthritis of both knees M19.90 and Acute medial meniscus tear, right, initial encounter S83.241A [facility] [address] 88926- 2685 Dec, [place] [address] 36818- 1943 Dec, [place] [address] 56658- 3781 Dec, [facility] [address] 92029- 2519 Dec, [place] [address] 11623- 5652 Dec, History of pneumonia Z87.01 [facility] [address] [address] 3219 Dec, [facility] [id number] [place] [address]- 4094 Dec, [facility] [id number] [place] [address]- 4926 Dec, [facility] [id number] [place] [address] 29370- 9573 Dec, [facility] [id number] [place] [address] 73498- 4102 Dec, [facility] [place] [address] [address] [id number] [place] [address] 60087- 4890 Dec, [facility] [address] [address] [id number] [place] [address] 37239- 8955 30 Nov, 2015 Cough R05 and Pneumonia due to infectious organism, unspecified laterality, unspecified part of lung J18.9 [place] [id number], [place] [address]- 1408 Nov, [facility] [id number] [place] [address] 36546- 3887 22 Nov, 2015 Type 2 diabetes mellitus [...] allergic rhinitis trigger, unspecified rhinitis seasonality J30.9 [facility] [id number], [place] [address]- 1003 12 Nov, 2015 IMMUNIZATIONS No Known Immunizations SOCIAL HISTORY Never Assessed REASON FOR VISIT Controlled med issue PLAN OF CARE VITAL SIGNS MEDICATIONS Medication [...] disease (COPD)-wears 2L O2 per [place], uses [employer] for home O2 Medical History Arthritis-knees and [...] History TURP 2003 Surgical History EGD Colonoscopy [facility] 06/06/2016 Hospitalization History TIA, [facility] 2014 Hospitalization History COPD exacerbation--[facility] 12/27/2015 [facility]2016 [facility] History [facility] 11/2016 Hospitalization History COPD exacerbation - Dr Hartley Attending 12/2016 Hospitalization History Cough- [facility] 04/10/2017 [facility]ization History [facility] - Possible Pneumonia 06/2017 Hospitalization History COPD hiatal hernia 08/2017
--- OUTSIDE RECORDS SUMMARY | 2018-01-05 15:54 | XMS REPORT ---
Author Author DARIN HARTLEY [facility] Address [address] 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 Active 369478737 Problem Nocturnal hypoxemia G47.34 Active 619235045 Problem 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 Active 078698739349278 Problem Recurrent major depressive disorder, in partial 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 Active 63622099 Problem Mixed hyperlipidemia E78.2 Active 290304212 Problem Essential hypertension I10 Active 12016324 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 Active 3537396 Problem 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 Active 064900289 Problem Chronic obstructive pulmonary disease, unspecified COPD type J44.9 Active 85759692 Problem Allergic rhinitis, unspecified allergic rhinitis trigger, unspecified rhinitis seasonality J30.9 Active 22885984 Problem Anxiety F41.9 Active 54742676 Problem Type 2 diabetes mellitus with diabetic neuropathy, without long-term current use of insulin E11.40 Active 47518949 Problem Hypoxia R09.02 Active 414044444 Problem Osteoarthritis of both knees, unspecified osteoarthritis type M17.0 Active 391012742 ALLERGIES No Information ENCOUNTERS Encounter Location Date Diagnosis [facility] [address] [facility] [id number] [address] Nov, [facility] [id number] [place] [address] 79881- 0048 17 Nov, 2017 [place] [id number] [place] [address] 55537- 8896 14 Nov, 2017 [place] [id number] [place] [address] 65102- 0904 12 Nov, 2017 Unspecified urinary incontinence R32 and Unspecified contact dermatitis due to other agents L25.8 [place] [address] 99236- 2686 11 Nov, 2017 Chronic pain syndrome G89.4 [place] [id number] [place] [address] 73910- 4929 10 Nov, 2017 Type 2 diabetes mellitus with diabetic neuropathy, without long-term current use of insulin E11.40 [place] [id number] [place] [address] 01881- 7555 Nov, [place] [id number] [place] [address] 63578- 7392 Nov, Chronic obstructive pulmonary disease, unspecified COPD type J44.9 and Gastroesophageal reflux disease without esophagitis K21.9 [place] [id number] [place] [address] 63332- 0687 Oct, [place] [id number] [place] [address] 93876- 8424 Oct, [place] [id number] [place] [address] 93908- 5394 Oct, Chronic pain syndrome G89.4 [place] [id number] [place] [address] 69346- 1548 Oct, Community acquired bacterial pneumonia J15.9 ; Allergic rhinitis, unspecified allergic rhinitis trigger, unspecified rhinitis seasonality J30.9 ; Type 2 diabetes mellitus with diabetic neuropathy, without long-term current use of insulin E11.40 ; Chronic GERD K21.9 and Chronic obstructive pulmonary disease, unspecified COPD type J44.9 [place] [id number] [place] [address] 25790- 4205 Oct, [facility] [address] [address] 96[address] Oct, [facility] [id number] [place] [address] 69330- 1479 Oct, [facility] [id number] [place] [address] 71238- 1584 Oct, [facility] [id number] [place] [address] 88669- 5392 Oct, Essential hypertension I10 [facility] [id number] [place] [address] 19473- 2400 Oct, Type 2 diabetes mellitus with diabetic neuropathy, without long-term current use of insulin E11.40 ; Chronic obstructive pulmonary disease , unspecified COPD type J44.9 ; Mixed hyperlipidemia E78.2 ; Osteoarthritis of both knees, unspecified osteoarthritis type M17.0 ; Alzheimers disease with early onset G30.0 and Essential hypertension I10 [facility] [address] [address] 7440 Oct, [facility] [id number] [place] [address] 82524- 9529 Oct, [facility] [id number] [place] [address] 28723- 8946 Oct, Yeast dermatitis B37.2 [facility] [id number] [place] [address] 22104- 8816 Oct, Chronic pain syndrome G89.4 [facility] [address] [address] 6115 Sep, [facility] [id number] [place] [address] 42303- 6216 Sep, [facility] [id number] [place] [address] 04911- 5369 Sep, Alzheimers disease with early onset G30.0 and Chronic pain syndrome G89.4 [facility] [address] [address] 4687 Sep, COPD with acute exacerbation J44.1 [facility] [id number] [place] [address] 20919- 6861 Sep, [facility] [id number] [place] [address] 49672- 8535 Sep, [facility] [id number] [place] [address] 51898- 8240 Sep, Gastroesophageal reflux disease without esophagitis K21.9 [facility] [id number] [place] [address] 14037- 2407 Aug, [facility] [id number] [place] [address] 13069- 1528 Aug, [place] [id number] [place] [address] 15687- 2717 Aug, 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 ; Hospital discharge follow-up Z09 ; Chronic obstructive pulmonary disease, unspecified COPD type J44.9 and Chronic GERD K21.9 [place] [id number] [place] [address] 13290- 8280 Aug, Chronic pain syndrome G89.4 [place] [id number] [place] [address] 74783- 5038 Aug, [place] [id number] [place] [address] 53232- 2878 Aug, [facility] [address] [place] [address] 75731- 1158 Aug, Chronic pain syndrome G89.4 and Alzheimers disease with early onset G30.0 [facility] [address] [place] [address] 64016- 8649 Aug, Type 2 diabetes mellitus with diabetic neuropathy, without long-term current use of insulin E11.40 ; Chronic obstructive pulmonary disease , unspecified COPD type J44.9 ; Chronic GERD K21.9 and 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 [facility] [id number] [address] 5383 Aug, [facility] [id number] [place] [address] 08090- 9791 Aug, Essential hypertension I10 and Cough R05 [facility] [id number] [place] [address] 37922- 8225 Aug, [facility] [id number] [place] [address] 54252- 7446 Aug, [facility] [id number] [place] [address] 64567- 9611 Aug, [facility] [id number] [place] [address] 09041- 3285 Aug, Chronic pain syndrome G89.4 [facility] [id number] [place] [address] 84158- 9735 Aug, [facility] [id number] [place] [address] 63860- 7990 Aug, [facility] [id number] [place] [address] 04880- 3666 July, Gastroesophageal reflux disease without esophagitis K21.9 [facility] [id number] [place] [address] 50693- 8180 July, [facility] [id number] [place] [address] 44109- 8536 July, [facility] [address] [address]- 0110 July, [facility] [id number] [place] [address] 77569- 7919 July, Essential hypertension I10 and Chronic pain syndrome G89.4 [facility] [id number] [place] [address] 88173- 3416 July, Gastroesophageal reflux disease without esophagitis K21.9 [place] [id number] [place] [address] 77036- 2967 July, Alzheimers disease with early onset G30.0 [place] [id number] [place] [address] 99492- 9973 July, Chronic obstructive pulmonary disease, unspecified COPD type J44.9 ; Nocturnal cough R05 ; 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 and Recurrent major depressive disorder, in partial 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 [place] [id number] [place] [address] 26190- 5276 July, [place] [address] 13405- 7240 July, Type 2 diabetes mellitus with diabetic neuropathy, without long-term current use of insulin E11.40 [place] [address] 56880- 2273 July, Nocturnal hypoxemia G47.34 ; Chronic obstructive pulmonary disease, unspecified COPD type J44.9 and Nocturnal cough R05 [place] [id number] [place] [address] 82324- 1638 July, [place] [id number] [place] [address] 86458- 3679 July, [place] [id number] [place] [address] 44881- 2634 July, [place] [id number] [place] [address] 02398- 2270 Jun, Chronic pain syndrome G89.4 [place] [id number] [place] [address] 45664- 1366 Jun, [place] [id number] [place] [address] 14362- 3059 Jun, [place] [id number] [place] [address] 49643- 7831 Jun, Alzheimers disease with early onset G30.0 [place] [id number] [place] [address] 64713- 7640 Jun, [place] [address] 35037- 3290 10 Jun, 2017 Gastroesophageal reflux disease without esophagitis K21.9 [place] [id number] [place] [address] 79321- 1562 04 Jun, 2017 Allergic rhinitis, unspecified allergic rhinitis trigger, unspecified rhinitis seasonality J30.9 [place] [id number] [place] [address] 23208- 3513 Jun, Chronic pain syndrome G89.4 [place] [id number] [place] [address] 89306- 1854 May, [place] [address] 24464- 5189 May, COPD with acute exacerbation J44.1 [place] [id number] [place] [address] 41041- 7936 14 May, 2017 Type 2 diabetes mellitus with diabetic neuropathy, without long-term current use of insulin E11.40 ; COPD with acute exacerbation J44.1 ; Hypoxia R09.02 ; Chronic pain syndrome G89.4 ; Yeast dermatitis B37.2 ; Alzheimers disease with early onset G30.0 and 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 [place] [id number] [place] [address] 45622- 9246 May, [place] [id number] [place] [address] 70951- 4979 May, Chronic pain syndrome G89.4 [place] [id number] [place] [address] 83769- 2484 May, [place] [id number] [place] [address] 39077- 9553 May, [place] [address] 56117- 6366 19 May, 2017 Mixed hyperlipidemia E78.2 [facility] [address] [address]- 7898 15 May, 2017 Chronic pain syndrome G89.4 [facility] [id number] [place] [address] 12037- 2911 May, Anxiety F41.9 and Chronic pain syndrome G89.4 [facility] [id number] [place] [address] 52694- 5401 Mar, [facility] [id number] [place] [address] 63112- 1319 Mar, [facility] [id number] [place] [address] 97204- 2141 Mar, [facility] [id number] [place] [address] 42896- 3397 Mar, [facility] [id number] [place] [address] 78452- 5209 Mar, [facility] [id number] [place] [address] 93370- 3700 Mar, Anxiety F41.9 and Chronic pain syndrome G89.4 [facility] [id number] [place] [address] 36876- 0847 Mar, Medicare annual wellness visit, initial Z00.00 [...] Hiatal hernia K44.9 and Actinic keratosis L57.0 [facility] [address] [address]- 3671 Mar, [facility] [address] [place] [address] 23495- 7329 Mar, Chronic pain syndrome G89.4 [facility] [id number] [place] [address] 45855- 5212 Feb, [facility] [id number] [place] [address] 83000- 5826 Feb, Chronic pain syndrome G89.4 [facility] [id number] [place] [address], [place] [address]- 0100 Feb, [facility] [id number] [place] [address] 80807- 2290 Feb, [facility] [id number] [place] [address] 48632- 9505 Feb, Anxiety F41.9 [facility] [id number] [place] [address] 96906- 7810 Feb, [facility] [id number] [place] [address] 84722- 9994 Feb, Chronic pain syndrome G89.4 [facility] [address] [place] [address] 83634- 2893 Jan, Essential hypertension I10 [facility] [id number] [place] [address] 49404- 4103 Jan, Chronic pain syndrome G89.4 [facility] [address] [address]- 5825 Jan, [facility] [id number] [place] [address] 24744- 3347 Jan, Anxiety F41.9 [facility] [address] [place] [address] 95896- 7302 Jan, Encounter for immunization Z23 and Community acquired pneumonia, unspecified laterality J18.9 [facility] [id number] [place] [address] 93278- 5835 Jan, Type 2 diabetes mellitus with diabetic neuropathy, without long-term current use of insulin E11.40 [facility] [id number] [place] [address] 52768- 9878 Dec, Anxiety F41.9 and Chronic pain syndrome G89.4 [facility] [id number] [place] [address] 91276- 2610 Dec, Chronic pain syndrome G89.4 and Essential hypertension I10 [facility] [address] 12097- 8531 Dec, [place] [id number] [place] [address] 32200- 0105 Dec, Anxiety F41.9 [place] [id number] [place] [address] 95483- 1537 Dec, [facility] [id number] [place] [address] 68594- 1637 Dec, Type 2 diabetes mellitus with diabetic neuropathy, without long-term current use of insulin E11.40 ; Lactic acidosis E87.2 ; Chronic obstructive pulmonary disease, unspecified COPD type J44.9 and Encounter for immunization Z23 [facility] [id number] [place] [address] 62769- 1938 Dec, Chronic pain syndrome G89.4 [facility] [id number] [place] [address] 48467- 9532 Nov, [facility] [id number] [place] [address] 20525- 0522 Nov, Chronic pain syndrome G89.4 [facility] [id number] [place] [address] 20066- 0075 Nov, [facility] [id number] [place] [address] 03325- 5910 Nov, [facility] [address] [address]- 2498 15 Nov, 2016 Anxiety F41.9 [facility] [id number] [place] [address] 95574- 0265 11 Nov, 2016 Anxiety F41.9 [facility] [id number] [place] [address] 52667- 4874 08 Nov, 2016 [facility] [id number] [place] [address] 00234- 1704 Nov, [facility] [id number] [place] [address] 82781- 5213 Nov, [facility] [id number] [place] [address] 82436- 7613 Oct, [facility] [id number] [place] [address] 23646- 5438 Oct, [facility] [id number] [place] [address] 14524- 4853 Oct, [facility] [id number] [place] [address] 29765- 4915 Oct, Essential hypertension I10 and Chronic pain syndrome G89.4 [facility] [id number] [place] [address] 63648- 2006 Oct, Anxiety F41.9 [facility] [address] [place] [address] 75533- 9938 Oct, [facility] [address] [place] [address] 06658- 3737 Oct, Chronic pain syndrome G89.4 [facility] [id number] [place] [address] 62492 -2219 Oct, Sore throat J02.9 and Acute nasopharyngitis (common cold) J00 [facility] [address] [address]- 8058 Sep, [facility] [id number] [place] [address] 24719- 6522 Sep, COPD exacerbation J44.1 [facility] [id number] [place] [address] 56242- 4200 Sep, Chronic pain syndrome G89.4 [facility] [id number] [place] [address] 37421- 9785 Sep, Essential hypertension I10 [facility] [id number] [place] [address] 76472- 6806 Sep, [facility] [id number] [place] [address] 63210- 6069 Sep, [facility] [id number] [place] [address] 66634- 4674 Sep, Anxiety F41.9 [facility] [id number] [place] [address] 54584- 3827 Sep, Chronic pain syndrome G89.4 [facility] [id number] [place] [address] 28680- 1321 Sep, [facility] [id number] [place] [address] 11138- 9933 Aug, Acute seasonal allergic rhinitis, unspecified trigger J30.2 ; Hiatal hernia K44.9 and Chronic pain syndrome G89.4 [facility] [id number] [place] [address] 95351- 4898 Aug, [facility] [id number] [place] [address] 89576- 8458 Aug, [facility] [id number] [place] [address] 80322- 0402 Aug, Chronic obstructive pulmonary disease, unspecified COPD type J44.9 [facility] [id number] [place] [address] 75303- 9608 Aug, Anxiety F41.9 [facility] [id number] [place] [address] 05829- 1705 08 Aug, 2016 Chronic pain syndrome G89.4 [facility] [address] [place] [address] 28430- 9885 07 Aug, 2016 Hiatal hernia K44.9 and Actinic keratosis L57.0 [facility] [id number] [place] [address] 33074- 2993 Aug, [facility] [id number] [place] [address] 35105- 5681 Aug, Anxiety F41.9 [facility] [id number] [place] [address] 59807- 7246 July, [facility] [id number] [place] [address] 33811- 2296 July, Hiatal hernia K44.9 [facility] [id number] [place] [address] 77266- 2882 July, [facility] [id number] [place] [address] 93442- 8171 July, Anxiety F41.9 and Chronic pain syndrome G89.4 [facility] [id number] [place] [address] 91769- 5307 July, [facility] [id number] [place] [address] 01726- 8796 Jun, Chronic pain syndrome G89.4 [facility] [id number] [place] [address] 69600- 4116 Jun, Chronic pain syndrome G89.4 [facility] [address] [place] [address] 46476- 5489 Jun, [facility] [id number] [place] [address] 52361- 6135 Jun, Anxiety F41.9 [facility] [address] [place] [address] 57743- 9301 Jun, Allergic rhinitis, unspecified allergic rhinitis trigger, unspecified rhinitis seasonality J30.9 [place] [id number] [place] [address] 02350- 0593 Jun, [facility] [id number] [place] [address] 87906- 1155 May, Chronic pain syndrome G89.4 [place] [address] 36541- [address]707 May, [place] [address] 86203- 5687 May, [place] [address] 18794- 7483 May, Anxiety F41.9 [place] [address] [place] [id number] [place] [address] 87006- 7206 May, Type 2 diabetes mellitus with diabetic [...] Anxiety F41.9 and Chronic pain syndrome G89.4 [place] [address] [place] [id number] [place] [address] 65800- 4394 May, Essential hypertension I10 ; Type 2 diabetes mellitus with diabetic neuropathy, without long-term current use of insulin E11.40 ; Mixed hyperlipidemia E78.2 ; Chronic obstructive pulmonary disease, unspecified COPD type J44.9 and Chronic GERD K21.9 [place] [address] [place] [id number] [place] [address] 76343- 1816 May, [place] [address] [place] [id number] [place] [address] 99307- 3066 May, [place] [address] [place] [id number] [place] [address] 23965- 7821 May, Type 2 diabetes mellitus with diabetic neuropathy, without long-term current use of insulin E11.40 [place] [address] [place] [id number] [place] [address] 82815- 6528 May, Dementia without behavioral disturbance, unspecified dementia type F03.90 [place] [address] [place] [id number] [place] [address] 40037- 1415 May, Type 2 diabetes mellitus with diabetic neuropathy, without long-term current use of insulin E11.40 ; Essential hypertension I10 ; Mixed hyperlipidemia E78.2 ; Chronic obstructive pulmonary disease, unspecified COPD type J44.9 ; Chronic GERD K21.9 and Osteoarthritis of both knees, unspecified osteoarthritis type M17.0 [facility] [address] [place] [id number] [place] [address] 07320- 9661 May, [facility] [address] [place] [id number] [place] [address] 62401- 1887 May, [place] [address] 0[address]31- 6805 May, Anxiety F41.9 and Unspecified symptoms and signs involving cognitive functions and awareness R41.9 [facility] [address] [place] [id number] [place] [address] 90916- 2864 May, [facility] [address] [place] [id number] [place] [address] 49901- 4039 May, Type 2 diabetes mellitus with diabetic neuropathy, without long-term current use of insulin E11.40 ; Anxiety F41.9 and Chronic obstructive pulmonary disease, unspecified COPD type J44.9 [facility] [address] [place] [id number] [place] [address] 77694- 3160 May, [facility] [address] [place] [id number] [place] [address] 73966- 6780 May, [facility] [address] [place] [id number] [place] [address] 78578- 2625 May, [facility] [address] [place] [id number] [place] [address] 44421- 0517 May, Chronic obstructive pulmonary disease, unspecified COPD type J44.9 [place] [address] 26082- 4257 Mar, [place] [address] 27219- 3966 Mar, Arthritis of both knees M19.90 [place] [address] 05725- 0611 Mar, Type 2 diabetes mellitus with diabetic neuropathy, without long-term current use of insulin E11.40 [place] [address] 29810- 6793 Mar, [place] [address] 67191- 5987 Mar, Neck pain M54.2 and Weakness generalized R53.1 [place] [address] 20328- 3006 Mar, [place] [address] 73458- 6764 Mar, Cervicalgia M54.2 and Impacted cerumen of both ears H61.23 [place] [address] 53128- 5536 Mar, [place] [address] 72924- 4344 Mar, Type 2 diabetes mellitus with diabetic neuropathy, without long-term current use of insulin E11.40 [place] [address] 88930- 1509 Feb, [place] [address] 66564- 7979 Feb, Hypoxia R09.02 [place] [address] 84347- 6052 Feb, [facility] [address] [address] Feb, [facility] [address] [place] [id number] [place] [address] 97360- 3725 Feb, [facility] [id number] [place] [address] 87381- 8562 16 Feb, 2016 Type 2 diabetes mellitus with diabetic neuropathy, without long-term current use of insulin E11.40 [facility] [address] [id number] [place] [address] 19741- 9529 15 Feb, 2016 Osteoarthritis of both knees, unspecified osteoarthritis type M17.0 [facility] [address] [place] [id number] [place] [address] 98958- 5343 14 Feb, 2016 [facility] [address] [place] [id number] [place] [address] 84906- 3333 Feb, [facility] [address] [place] [id number] [place] [address] 60074- 1196 Feb, [facility] [id number] [place] [address] 27843- 6878 15 Jan, 2016 [facility] [id number] [place] [address] 76331- 7327 15 Jan, 2016 [facility] [id number] [place] [address] 14191- 2375 Jan, [facility] [id number] [place] [address] 30938- 4142 14 Jan, 2016 [facility] [id number] [place] [address] 11651- 6922 10 Jan, 2016 Tinea pedis of both feet B35.3 [facility] [address] [address] 9934 03 Jan, 2016 Type 2 diabetes mellitus [...] seasonality J30.9 and Encounter for immunization Z23 [facility] [address] 16273- 1231 Jan, [place] [address] 48732- 4288 Jan, [place] [address] 40677- 9025 Dec, [place] [address] 03477- 9589 Dec, [facility] [address] 04137 -5120 Dec, Unspecified asthma with (acute) exacerbation J45.901 and Chronic obstructive pulmonary disease with (acute) exacerbation J44.1 [place] [address] 01727- 4209 Dec, Arthritis of both knees M19.90 and Acute medial meniscus tear, right, initial encounter S83.241A [place] [address] 00014- 3337 Dec, [place] [address] 33495- 6065 Dec, [place] [address] 22785- 8570 Dec, [facility] [address] 95763- 5682 Dec, [place] [address] 36042- 3871 Dec, History of pneumonia Z87.01 [facility] [address] [address]- 2782 Dec, [facility] [address] [address]- 0422 Dec, [facility] [address] [address]- 9742 Dec, [facility] [address] [place] [id number] [place] [address] 81959- 4064 Dec, [facility] [id number] [place] [address] 61077- 0841 Dec, [facility] [address] [place] [id number] [place] [address] 55541- 3408 Dec, [facility] [address] [place] [id number] [place] [address] 06180- 4350 30 Nov, 2015 Cough R05 and Pneumonia due to infectious organism, unspecified laterality, unspecified part of lung J18.9 [place] [address] [address]- 9637 Nov, [place] [id number] [place] [address] 41194- 2260 22 Nov, 2015 Type 2 diabetes mellitus [...] allergic rhinitis trigger, unspecified rhinitis seasonality J30.9 [facility] [address] [address]- 9330 12 Nov, 2015 IMMUNIZATIONS No Known Immunizations SOCIAL HISTORY Never Assessed REASON FOR VISIT Refill request PLAN OF CARE VITAL SIGNS MEDICATIONS Medication Instructions Dosage Frequency Start Date End Date Duration Status Nystatin 808742 UNIT/GM Externally Twice a day 1 application to affected area 12h 14 May, 2017 Active RESULTS No Results PROCEDURES No Known procedures INSTRUCTIONS MEDICATIONS ADMINISTERED No Known Medications MEDICAL (GENERAL) HISTORY Type Description Date Medical History hypertension Medical History chronic obstructive pulmonary disease (COPD)-wears 2L O2 per [place], uses [place] for home O2 Medical History Arthritis-knees and [...] History TURP 2003 Surgical History EGD Colonoscopy [facility] 06/06/2016 Hospitalization History TIA, [facility] 2014 Hospitalization History COPD exacerbation--[facility] 12/27/2015 [facility] - [facility] 02/2016 [facility] History [facility] 11/2016 Hospitalization History COPD exacerbation - Dr Hartley Attending 12/2016 Hospitalization History Cough- [facility] [place] 04/10/2017 Hospitalization History [facility] - Possible Pneumonia 06/2017 Hospitalization History COPD hiatal hernia 08/2017
--- OUTSIDE RECORDS SUMMARY | 2018-01-05 15:55 | XMS REPORT ---
Author Author DARIN HARTLEY Organization [facility] Address [address] 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 Active 682627306359488 Problem Nocturnal hypoxemia G47.34 Active 873322817 Problem Gastroesophageal reflux disease without esophagitis K21.9 Active 381552140 Problem Recurrent major depressive disorder, in partial 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 Active 77628013 Problem 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 Active 446855255 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 Active 8624807 Problem Hypoxia R09.02 Active 786893106 Problem Elevated transaminase level R74.0 Active 439913844 Problem 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 Active 365754046 Problem Essential hypertension I10 Active 61940300 Problem Anxiety F41.9 Active 50358564 Problem Chronic obstructive pulmonary disease, unspecified COPD type J44.9 Active 65251854 Problem Allergic rhinitis, unspecified allergic rhinitis trigger, unspecified rhinitis seasonality J30.9 Active 02210031 Problem Mixed hyperlipidemia E78.2 Active 508992040 Problem Type 2 diabetes mellitus with diabetic neuropathy, without long-term current use of insulin E11.40 Active 47634230 ALLERGIES No Information ENCOUNTERS Encounter Location Date Diagnosis [facility] [address] [facility] [id number] [address] Oct, [facility] [address] [facility] [id number], [place] [address] 6[address] Oct, [facility] [address] [address] 4[address] Oct, [facility] [address] [id number] [place] [address] 85433- 9652 Oct, [facility] [id number] [place] [address] 90781- 4718 Oct, Essential hypertension I10 [facility] [id number] [place] [address] 67890- 4994 Oct, Type 2 diabetes mellitus with diabetic neuropathy, without long-term current use of insulin E11.40 ; Chronic obstructive pulmonary disease , unspecified COPD type J44.9 ; Mixed hyperlipidemia E78.2 ; Osteoarthritis of both knees, unspecified osteoarthritis type M17.0 ; Alzheimers disease with early onset G30.0 and Essential hypertension I10 [facility] [id number] [place] [address] 37803- 9887 Oct, [facility] [id number] [place] [address] 88503- 2765 Oct, [facility] [id number] [place] [address] 66176- 7088 Oct, Yeast dermatitis B37.2 [facility] [id number] [place] [address] 21190- 2798 Oct, Chronic pain syndrome G89.4 [facility] [id number] [place] [address] 25017- 5147 Sep, [facility] [address] [address] 30[address] Sep, [facility] [id number] [place] [address] 28069- 3782 Sep, Alzheimers disease with early onset G30.0 and Chronic pain syndrome G89.4 [facility] [address], [place] [address] 6169 Sep, COPD with acute exacerbation J44.1 [facility] [address] [address] 2100 Sep, [facility] [id number] [place] [address] 76861- 8250 Sep, [facility] [address], [place] [address] 8939 Sep, Gastroesophageal reflux disease without esophagitis K21.9 [facility] [id number] [place] [address] 47840- 9684 Aug, [facility] [id number] [place] [address] 30369- 1628 Aug, [facility] [id number] [place] [address] 75162- 0969 Aug, 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 ; Hospital discharge follow-up Z09 ; Chronic obstructive pulmonary disease, unspecified COPD type J44.9 and Chronic GERD K21.9 [facility] [address] [address] 5082 Aug, Chronic pain syndrome G89.4 [facility] [id number] [place] [address] 90962- 2637 Aug, [facility] [place] [id number] [place] [address] 69317- 1278 Aug, [facility] [address] [address] 1749 Aug, Chronic pain syndrome G89.4 and Alzheimers disease with early onset G30.0 [facility] [address] [address] 7181 Aug, Type 2 diabetes mellitus with diabetic neuropathy, without long-term current use of insulin E11.40 ; Chronic obstructive pulmonary disease , unspecified COPD type J44.9 ; Chronic GERD K21.9 and 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 [facility] [id number] [place] [address] 47821- 6716 Aug, [facility] [address], [place] [address] 5654 Aug, Essential hypertension I10 and Cough R05 [facility] [id number] [place] [address] 38908- 5513 Aug, [facility] [id number] [place] [address] 24427- 7974 Aug, [facility] [id number] [place] [address] 96051- 9717 Aug, [facility] [id number] [place] [address] 33836- 4862 Aug, Chronic pain syndrome G89.4 [facility] [id number] [place] [address] 88732- 4608 Aug, [facility] [id number] [place] [address] 68861- 2312 Aug, [facility] [id number] [place] [address] 52359- 8180 July, Gastroesophageal reflux disease without esophagitis K21.9 [facility] [id number] [place] [address] 29021- 9040 July, [facility] [id number] [place] [address] 70197- 6716 July, [facility] [id number] [place] [address] 09336- 1446 July, [facility] [id number] [place] [address] 87134- 0193 July, Essential hypertension I10 and Chronic pain syndrome G89.4 [facility] [id number] [place] [address] 14620- 6416 July, Gastroesophageal reflux disease without esophagitis K21.9 [facility] [id number] [place] [address] 30871- 8746 July, Alzheimers disease with early onset G30.0 [facility] [id number] [place] [address] 24421- 4957 July, Chronic obstructive pulmonary disease, unspecified COPD type J44.9 ; Nocturnal cough R05 ; 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 and Recurrent major depressive disorder, in partial 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 [facility] [id number] [place] [address] 87322- 5087 July, [facility] [id number] [place] [address] 79494- 9718 July, Type 2 diabetes mellitus with diabetic neuropathy, without long-term current use of insulin E11.40 [facility] [address] 29099- 0595 July, Nocturnal hypoxemia G47.34 ; Chronic obstructive pulmonary disease, unspecified COPD type J44.9 and Nocturnal cough R05 [facility] [id number] [place] [address] 70462- 4288 July, [facility] [id number] [place] [address] 66023- 1909 July, [facility] [id number] [place] [address] 02718- 9845 July, [facility] [id number] [place] [address] 74944- 9687 Jun, Chronic pain syndrome G89.4 [facility] [id number] [place] [address] 49383- 1008 Jun, [facility] [id number] [place] [address] 31568- 5076 Jun, [facility] [place] [id number] [place] [address] 84296- 4537 Jun, Alzheimers disease with early onset G30.0 [facility] [id number] [place] [address] 53886- 6525 Jun, [place] [place] [address] 54648- 2324 10 Jun, 2017 Gastroesophageal reflux disease without esophagitis K21.9 [facility] [place] [address] 49217- 5201 04 Jun, 2017 Allergic rhinitis, unspecified allergic rhinitis trigger, unspecified rhinitis seasonality J30.9 [facility] [address] 02943- 6893 Jun, Chronic pain syndrome G89.4 [place] [address] [address]- 1975 May, [address] 54716- 7303 May, COPD with acute exacerbation J44.[address] 39166- 1847 14 May, 2017 Type 2 diabetes mellitus with diabetic neuropathy, without long-term current use of insulin E11.40 ; COPD with acute exacerbation J44.1 ; Hypoxia R09.02 ; Chronic pain syndrome G89.4 ; Yeast dermatitis B37.2 ; Alzheimers disease with early onset G30.0 and 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 [place] [address] 66975- 6596 May, [facility] [place] [address] 31237- 6277 May, Chronic pain syndrome G89.4 [place] [address] 02327- 0238 May, [place] [address] 28838- 5721 May, [facility] [place] [address] 99392- 2039 May, Mixed hyperlipidemia E78.2 [place] [address] 97839- 3258 May, Chronic pain syndrome G89.4 [facility] [id number] [place] [address] 02417- 5672 May, Anxiety F41.9 and Chronic pain syndrome G89.4 [facility] [address], [place] [address]- 6902 Mar, [facility] [id number] [place] [address] 45298- 6075 Mar, [facility] [id number] [place] [address] 84414- 1407 Mar, [facility] [id number] [place] [address] 64876- 1654 Mar, [facility] [id number] [place] [address] 23094- 3326 Mar, [facility] [id number] [place] [address] 57294- 0302 Mar, Anxiety F41.9 and Chronic pain syndrome G89.4 [facility] [id number] [place] [address] 36821- 2375 Mar, Medicare annual wellness visit, initial Z00.00 [...] hernia K44.9 and Actinic keratosis L57.0 [facility] [address], [place] [address]- 7926 Mar, [facility] [id number] [place] [address] 28096- 7697 Mar, Chronic pain syndrome G89.4 [facility] [id number] [place] [address] 66969- 2986 Feb, [facility] [id number] [place] [address] 554294- 4873 Feb, Chronic pain syndrome G89.4 [facility] [id number] [place] [address] 72298- 3320 Feb, [facility] [id number] [place] [address] 28764- 9879 Feb, [facility] [id number] [place] [address] 11607- 9764 Feb, Anxiety F41.9 [facility] [id number] [place] [address] 40431- 7604 Feb, [facility] [id number] [place] [address] 65155- 9433 Feb, Chronic pain syndrome G89.4 [facility] [id number] [place] [address] 31494- 3343 Jan, Essential hypertension I10 [facility] [id number] [place] [address] 59777- 6949 Jan, Chronic pain syndrome G89.4 [facility] [id number] [place] [address] 74388- 2794 Jan, [facility] [id number] [place] [address] 25895- 0543 Jan, Anxiety F41.9 [facility] [id number] [place] [address] 28357- 5672 Jan, Encounter for immunization Z23 and Community acquired pneumonia, unspecified laterality J18.9 [facility] [id number] [place] [address] 44875- 3494 Jan, Type 2 diabetes mellitus with diabetic neuropathy, without long-term current use of insulin E11.40 [facility] [id number] [place] [address] 18126- 8575 31 Dec, 2016 Anxiety F41.9 and Chronic pain syndrome G89.4 [facility] [id number] [place] [address] 58767- 1057 23 Dec, 2016 Chronic pain syndrome G89.4 and Essential hypertension I10 [facility] [address] 84957- 5298 16 Dec, 2016 [facility] [id number] [place] [address] 27910- 4614 Dec, Anxiety F41.9 [facility] [address] 11098- 4711 Dec, [facility] [address] 34586- 1324 Dec, Type 2 diabetes mellitus with diabetic neuropathy, without long-term current use of insulin E11.40 ; Lactic acidosis E87.2 ; Chronic obstructive pulmonary disease, unspecified COPD type J44.9 and Encounter for immunization Z23 [facility] [address] 01174- 1789 Dec, Chronic pain syndrome G89.4 [facility] [id number] [place] [address] 62586- 2241 Nov, [facility] [id number] [place] [address] 10422- 5968 Nov, Chronic pain syndrome G89.4 [facility] [id number] [place] [address] 81014 2542 Nov, [facility] [id number] [place] [address] 44808- 2540 Nov, [facility] [id number] [place] [address] 62000- 2400 15 Nov, 2016 Anxiety F41.9 [facility] [address] [place] [address]- 5959 11 Nov, 2016 Anxiety F41.9 [facility] [id number] [place] [address] 12673- 5195 08 Nov, 2016 [facility] [address], [place] [address]- 0755 Nov, [facility] [id number] [place] [address] 79511- 3419 Nov, [facility] [id number] [place] [address] 65558- 0043 Oct, [facility] [id number] [place] [address] 37027- 8285 Oct, [facility] [id number] [place] [address] 05156- 0722 Oct, [facility] [id number] [place] [address] 72285- 0502 Oct, Essential hypertension I10 and Chronic pain syndrome G89.4 [facility] [id number] [place] [address] 29410- 3038 Oct, Anxiety F41.9 [facility] [address], [place] [address]- 6957 Oct, [facility] [id number] [place] [address] 17217- 8302 Oct, Chronic pain syndrome G89.4 [facility] [address], [place] [address] -8065 Oct, Sore throat J02.9 and Acute nasopharyngitis (common cold) J00 [facility] [address], [place] [address]- 8953 Sep, [facility] [address], [place] [address]- 2767 Sep, COPD exacerbation J44.1 [facility] [id number] [place] [address] 10259- 9505 Sep, Chronic pain syndrome G89.4 [facility] [id number] [place] [address] 43607- 3075 Sep, Essential hypertension I10 [facility] [id number] [place] [address] 82420- 0799 Sep, [facility] [id number] [place] [address] 94991- 0506 Sep, [facility] [id number] [place] [address] 49189- 1600 Sep, Anxiety F41.9 [facility] [id number] [place] [address] 97673- 5417 Sep, Chronic pain syndrome G89.4 [facility] [id number] [place] [address] 70837- 2339 Sep, [facility] [id number] [place] [address] 74984- 9995 Aug, Acute seasonal allergic rhinitis, unspecified trigger J30.2 ; Hiatal hernia K44.9 and Chronic pain syndrome G89.4 [facility] [id number] [place] [address] 53630- 8823 Aug, [facility] [id number] [place] [address] 79443- 1459 Aug, [facility] [id number] [place] [address] 05688- 7469 Aug, Chronic obstructive pulmonary disease, unspecified COPD type J44.9 [facility] [id number] [place] [address] 34258- 6235 Aug, Anxiety F41.9 [facility] [id number] [place] [address] 94102- 3775 08 Aug, 2016 Chronic pain syndrome G89.4 [facility] [id number] [place] [address] 62931- 4799 07 Aug, 2016 Hiatal hernia K44.9 and Actinic keratosis L57.0 [facility] [id number] [place] [address] 60914- 3160 Aug, [facility] [id number] [place] [address] 98429- 1975 Aug, Anxiety F41.9 [facility] [id number] [place] [address] 27302- 5047 July, [facility] [id number] [place] [address] 22268- 6094 July, Hiatal hernia K44.9 [facility] [id number] [place] [address] 99314- 1673 July, [facility] [id number] [place] [address] 85534- 9408 July, Anxiety F41.9 and Chronic pain syndrome G89.4 [facility] [id number] [place] [address] 63631- 7598 July, [facility] [id number] [place] [address] 29324- 6521 Jun, Chronic pain syndrome G89.4 [facility] [id number] [place] [address] 47502- 7793 Jun, Chronic pain syndrome G89.4 [facility] [id number] [place] [address] 61314- 0529 Jun, [facility] [id number] [place] [address] 96789- 3737 Jun, Anxiety F41.9 [facility] [id number] [place] [address] 56200- 8970 Jun, Allergic rhinitis, unspecified allergic rhinitis trigger, unspecified rhinitis seasonality J30.9 [facility] [id number] [place] [address] 76118- 5068 Jun, [facility] [address] [address]- 5549 May, Chronic pain syndrome G89.4 [facility] [address] [address]- 0394 May, [facility] [place] [id number] [place] [address] 52228- 4279 May, [facility] [id number] [place] [address] 71464- 8015 May, Anxiety F41.9 [facility] [id number] [place] [address] 25834- 2997 May, Type 2 diabetes mellitus with diabetic [...] Anxiety F41.9 and Chronic pain syndrome G89.4 [facility] [place] [id number] [place] [address] 91422- 4692 May, Essential hypertension I10 ; Type 2 diabetes mellitus with diabetic neuropathy, without long-term current use of insulin E11.40 ; Mixed hyperlipidemia E78.2 ; Chronic obstructive pulmonary disease, unspecified COPD type J44.9 and Chronic GERD K21.9 [facility] [address] [address]- 6850 May, [facility] [place] [address], [place] [address]- 2000 May, [facility] [id number] [place] [address] 37258- 8976 May, Type 2 diabetes mellitus with diabetic neuropathy, without long-term current use of insulin E11.40 [facility] [id number] [place] [address] 65614- 4259 May, Dementia without behavioral disturbance, unspecified dementia type F03.90 [facility] [address] [place] [address] [id number] [place] [address]- 6773 May, Type 2 diabetes mellitus with diabetic neuropathy, without long-term current use of insulin E11.40 ; Essential hypertension I10 ; Mixed hyperlipidemia E78.2 ; Chronic obstructive pulmonary disease, unspecified COPD type J44.9 ; Chronic GERD K21.9 and Osteoarthritis of both knees, unspecified osteoarthritis type M17.0 [facility] [place] [id number] [place] [address] 01924- 7207 May, [facility] [place] [address] 23901- 9607 May, [facility] [place] [address] 99191- 1259 May, Anxiety F41.9 and Unspecified symptoms and signs involving cognitive functions and awareness R41.9 [facility] [id number] [place] [address] 57878- 2129 May, [facility] [id number] [place] [address] 12155- 4067 May, Type 2 diabetes mellitus with diabetic neuropathy, without long-term current use of insulin E11.40 ; Anxiety F41.9 and Chronic obstructive pulmonary disease, unspecified COPD type J44.9 [facility] [id number] [place] [address] 33948- 7247 May, [facility] [id number] [place] [address] 17101- 3447 May, [facility] [id number] [place] [address] 01368- 3936 May, [facility] [place] [id number] [place] [address] 80445- 8352 May, Chronic obstructive pulmonary disease, unspecified COPD type J44.9 [facility] [place] [address] [place] [id number] [place] [address] 76055- 2544 Mar, [place] [address] 14822- 7244 Mar, Arthritis of both knees M19.90 [place] [address] 12138- 6941 16 Mar, 2016 Type 2 diabetes mellitus with diabetic neuropathy, without long-term current use of insulin E11.40 [place] [address] 79463- 8815 Mar, [place] [address] 24062- 8126 Mar, Neck pain M54.2 and Weakness generalized R53.[address] 53925- 5465 Mar, [place] [address] 58701- 7116 Mar, Cervicalgia M54.2 and Impacted cerumen of both ears H61.23 [facility] [address] 84434- 0376 Mar, [place] [address] 27461- 0754 Mar, Type 2 diabetes mellitus with diabetic neuropathy, without long-term current use of insulin E11.40 [place] [address] [address] Feb, [place] [address] [address] Feb, Hypoxia R09.02 [place] [address] [address] Feb, [place] [address] [address] Feb, [place] [address] [id number] [address] Feb, [facility] [address] [place] [id number] [place] [address] Feb, Type 2 diabetes mellitus with diabetic neuropathy, without long-term current use of insulin E11.40 [facility] [address] [place] [id number] [place] [address]- [address] Feb, Osteoarthritis of both knees, unspecified osteoarthritis type M17.0 [facility] [address] [place] [id number] [place] [address] Feb, [facility] [address] [place] [id number] [place] [address]- [address] Feb, [facility] [address] [place] [id number] [place] [address]- [address] Feb, [facility] [address] [place] [id number] [place] [address]- [address] Jan, [facility] [id number] [place] [address] [phone]- [phone] Jan, [facility] [id number] [place] [address] [phone]- [phone] Jan, [facility] [id number] [place] [address] [phone]- [phone] Jan, [facility] [id number] [place] [address] 86484- 4910 Jan, Tinea pedis of both feet B35.3 [facility] [address] [address] 03 Jan, 2016 Type 2 diabetes mellitus [...] J30.9 and Encounter for immunization Z23 [facility] [id number] [place] [address] [phone]- [phone] Jan, [place] [address] [address]- [address] Jan, [facility] [address] [address]- 9936 Dec, [place] [address] 07282- 9348 Dec, [facility] [id number] [place] [address] [id number] -[phone] Dec, Unspecified asthma with (acute) exacerbation J45.901 and Chronic obstructive pulmonary disease with (acute) exacerbation J44.1 [place] [address] 107[address]- 2296 Dec, Arthritis of both knees M19.90 and Acute medial meniscus tear, right, initial encounter S83.241A [place] [id number] [place] [address] 12925- 3479 Dec, [place] [id number] [place] [address] [phone]- 1415 Dec, [place] [address] [phone]- 2063 Dec, [place] [id number] [place] [address] 91523- 4261 Dec, [place] [address] 97516- 2377 Dec, History of pneumonia Z87.01 [place] [id number] [place] [address] 41946- 2242 Dec, [place] [address] [address] Dec, [place] [id number] [place] [address] 24970- 3053 Dec, [place] [id number] [place] [address] 03878- 4964 Dec, [place] [address] 25381- 0772 Dec, [place] [id number] [place] [address] [phone]- 0445 Dec, [place] [id number] [place] [address] 57617- 4112 Nov, Cough R05 and Pneumonia due to infectious organism, unspecified laterality, unspecified part of lung J18.9 [place] [id number] [place] [address] [phone]- [phone] Nov, [place] [id number] [place] [address] 31750- [phone] Nov, Type 2 diabetes mellitus with diabetic [...] allergic rhinitis trigger, unspecified rhinitis seasonality J30.9 [place] [id number] [place] [address] 65858- [phone] Nov, IMMUNIZATIONS No Known Immunizations SOCIAL HISTORY Never Assessed REASON FOR VISIT Med reconciliation post hosp dc PLAN OF CARE VITAL SIGNS MEDICATIONS Medication Instructions Dosage Frequency Start Date End Date Duration Status Benazepril HCl 20 MG Orally Once a day 1 tablet 24h 30 days Not- Taking GlipiZIDE 5 mg Orally twice a day 1 tablet 12h 30 days Active Zantac 150 mg Orally 2 times a day 1 tablet 12h Jun, 30 day(s) Active Nystatin 713701 UNIT/GM Externally Twice a day 1 application to affected area 12h 14 May, 2017 Not-Taking Metformin HCl 500 mg Orally Once a day (pt only takes 1/2 tab PRN gluocse over 180) 1 tablet with a meal Active Atorvastatin Calcium 40 mg Orally Once a day 1 tablet 24h Active Tramadol HCl 50 mg Orally every 12 hrs 1 tablet as needed 12h 21 days Active Robitussin Chest Congestion 100 MG/5ML Orally 3 times a day 5 ml as needed 8h Active Clonazepam 1 MG Orally 3 times a day 1 tablet 8h 28 days Active Amlodipine Besylate 10 mg Orally Once a day 1 tablet 24h 30 days Active Zofran 4 MG Not-Taking Triamcinolone Acetonide 0.1 % Externally Twice a day to as needed 1 application to affected area 17 Jan, 2016 30 days Active Myrbetriq 25 TAKE ONE TABLET BY MOUTH DAILY DIRECTED 90 Active Polyethylene Glycol 3350 - Orally Once a day 17grams with 8oz liquid 24h 18 Feb, 2017 Not-Taking Oxygen nc continuously 2 liters Active Albuterol Sulfate (2.5 MG/3ML) 0.083% Inhalation 3 times a day and PRN 3 ml Active Spiriva HandiHaler 18 MCG Inhalation Once a day 1 capsule 24h Not- Taking Viibryd 10 mg TAKE ONE TABLET BY MOUTH DAILY WITH FOOD 28 Active Exelon 4.6 MG/24HR APPLY ONE PATCH TO HAIR-FREE AREA ABOVE THE WAIST AND CHANGE EVERY 24 HOURS Active Fluticasone Propionate 50 MCG/ACT Nasally Once a day at hs 1 spray in each nostril Aug, Active Multivitamin Adult - Unknown Doxazosin Mesylate 4 MG Orally at bedtime 1 tablet Active Pantoprazole Sodium 40 mg Orally Once a day 1 tablet 24h 30 days Active Plavix 75 MG Orally Once a day 1 tablet 24h July, Active Montelukast Sodium 10 mg Orally Once a day 1 tablet in the evening 24h 30 days Active Symbicort 80-4.5 MCG/ACT Inhalation Twice a day 2 puffs 12h Not- Taking Loratadine 10 MG Orally Once a day 1 tablet 24h 30 day(s) Active Fish Oil 1000 MG Orally Twice a day 1 capsule 12h Active Lancets - test blood sugar Jan, 30 days Active Lyrica 100 mg Orally Three times a day 1 capsule 8h 14 days Active Lubricant Drops both eyes 4 times a day PRN dryness 1 drop Active RESULTS No Results PROCEDURES No Known [...] TIA, [facility] 2014 Hospitalization History COPD exacerbation--[facility] 12/27/2015 [facility] 02/2016 [facility] History [facility] 11/2016 Hospitalization History COPD exacerbation - Dr Hartley Attending 12/2016 Hospitalization History Cough- [facility] [place] 04/10/2017 [facility] - Possible Pneumonia 06/2017 Hospitalization History COPD hiatal hernia 08/2017
--- OUTSIDE RECORDS SUMMARY | 2018-01-05 15:55 | XMS REPORT ---
Author Author DARIN HARTLEY [facility] Address [address] [place] [address] Care Team Providers Care Director Of Vocational Training Name Role Phone DARIN HARTLEY Unavailable PROBLEMS Type Condition ICD9-CM Code FZE20-KT Code Onset Dates Condition Status SNOMED Code Problem Chronic pain syndrome G89.4 Active 148128983 Problem Gastroesophageal reflux disease without esophagitis K21.9 Active 638805216 Problem Chronic GERD K21.9 Active 950677158 Problem Unspecified urinary incontinence R32 Active 918662601 Problem Elevated transaminase level R74.0 Active 326493337 Problem 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 Active 441466472 Problem 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 Active 799253037 Problem Nocturnal hypoxemia G47.34 Active 908450222 Problem 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 Active 448014831372355 Problem Recurrent major depressive disorder, in partial 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 Active 13380685 Problem Mixed hyperlipidemia E78.2 Active 266072341 Problem Essential hypertension I10 Active 33584944 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 Active 8224236 Problem 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 Active 344948940 Problem Chronic obstructive pulmonary disease, unspecified COPD type J44.9 Active 89469428 Problem Allergic rhinitis, unspecified allergic rhinitis trigger, unspecified rhinitis seasonality J30.9 Active 44450696 Problem Anxiety F41.9 Active 05559043 Problem Type 2 diabetes mellitus with diabetic neuropathy, without long-term current use of insulin E11.40 Active 00944324 Problem Hypoxia R09.02 Active 589573779 Problem Osteoarthritis of both knees, unspecified osteoarthritis type M17.0 Active 741221627 ALLERGIES No Information ENCOUNTERS Encounter Location Date Diagnosis [facility] [address] [facility] [id number] [address] Nov, [facility] [id number] [place] [address] 77669- 3910 Nov, Unspecified urinary incontinence R32 and Unspecified contact dermatitis due to other agents L25.8 [facility] [id number] [place] [address] 41706- 6179 11 Nov, 2017 Chronic pain syndrome G89.4 [facility] [id number] [place] [address] 25806- 4091 10 Nov, 2017 Type 2 diabetes mellitus with diabetic neuropathy, without long-term current use of insulin E11.40 [facility] [id number] [place] [address] 52888- 4722 Nov, [place] [address] 656936- 3524 Nov, Chronic obstructive pulmonary disease, unspecified COPD type J44.9 and Gastroesophageal reflux disease without esophagitis K21.9 [facility] [id number] [place] [address] 93401- 6731 Oct, [facility] [id number] [place] [address] 42471- 2760 Oct, [place] [id number] [place] [address] 73622- 8300 Oct, Chronic pain syndrome G89.4 [facility] [id number] [place] [address] 47270- 4400 Oct, Community acquired bacterial pneumonia J15.9 ; Allergic rhinitis, unspecified allergic rhinitis trigger, unspecified rhinitis seasonality J30.9 ; Type 2 diabetes mellitus with diabetic neuropathy, without long-term current use of insulin E11.40 ; Chronic GERD K21.9 and Chronic obstructive pulmonary disease, unspecified COPD type J44.9 [facility] [id number] [place] [address] 42420- 2495 Oct, [facility] [id number] [place] [address] 72068- 0386 Oct, [place] [id number] [place] [address] 88138- 2280 Oct, [facility] [address] [address] 4518 Oct, [facility] [id number] [place] [address] 47378- 0221 Oct, Essential hypertension I10 [facility] [id number] [place] [address] 86386- 7119 Oct, Type 2 diabetes mellitus with diabetic neuropathy, without long-term current use of insulin E11.40 ; Chronic obstructive pulmonary disease , unspecified COPD type J44.9 ; Mixed hyperlipidemia E78.2 ; Osteoarthritis of both knees, unspecified osteoarthritis type M17.0 ; Alzheimers disease with early onset G30.0 and Essential hypertension I10 [facility] [id number] [place] [address] 09373- 6407 Oct, [facility] [id number] [place] [address] 88347- 3422 Oct, [facility] [id number] [place] [address] 67334- 3627 Oct, Yeast dermatitis B37.2 [facility] [id number] [place] [address] 23559- 8765 Oct, Chronic pain syndrome G89.4 [facility] [id number] [place] [address] 83716- 4056 Sep, [facility] [id number] [place] [address] 84599- 0761 Sep, [facility] [id number] [place] [address] 28880- 1187 Sep, Alzheimers disease with early onset G30.0 and Chronic pain syndrome G89.4 [facility] [id number] [place] [address] 36127- 4182 Sep, COPD with acute exacerbation J44.1 [facility] [id number] [place] [address] 94198- 5207 Sep, [facility] [id number] [place] [address] 82541- 8855 Sep, [facility] [id number] [place] [address] 37717- 0024 Sep, Gastroesophageal reflux disease without esophagitis K21.9 [facility] [id number] [place] [address] 41259- 3782 Aug, [facility] [id number] [place] [address] 83187- 4897 Aug, [place] [id number] [place] [address] 24662- 8831 Aug, 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 ; Hospital discharge follow-up Z09 ; Chronic obstructive pulmonary disease, unspecified COPD type J44.9 and Chronic GERD K21.9 [place] [id number] [place] [address] 38574- 3415 Aug, Chronic pain syndrome G89.4 [facility] [id number] [place] [address] 29390- 8689 Aug, [place] [id number] [place] [address] 21304- 9052 Aug, [place] [id number] [place] [address] 18629- 9659 Aug, Chronic pain syndrome G89.4 and Alzheimers disease with early onset G30.0 [facility] [id number] [place] [address] 68210- 2916 Aug, Type 2 diabetes mellitus with diabetic neuropathy, without long-term current use of insulin E11.40 ; Chronic obstructive pulmonary disease , unspecified COPD type J44.9 ; Chronic GERD K21.9 and 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 [place] [place] [id number] [place] [address] 31690- 2439 15 Aug, 2017 [place] [id number] [place] [address] 32720- 7746 Aug, Essential hypertension I10 and Cough R05 [facility] [id number] [place] [address] 31367- 1397 Aug, [facility] [id number] [place] [address] 75410- 8527 Aug, [facility] [id number] [place] [address] 13486- 1969 Aug, [facility] [id number] [place] [address] 85802- 1388 Aug, Chronic pain syndrome G89.4 [facility] [id number] [place] [address] 66910- 5257 Aug, [facility] [id number] [place] [address] 51490- 6544 Aug, [facility] [id number] [place] [address] 68918- 3489 July, Gastroesophageal reflux disease without esophagitis K21.9 [facility] [id number] [place] [address] 57405- 9072 July, [facility] [id number] [place] [address] 60947- 1110 July, [facility] [id number] [place] [address] 19553- 4149 July, [facility] [id number] [place] [address] 55363- 6399 July, Essential hypertension I10 and Chronic pain syndrome G89.4 [facility] [id number] [place] [address] 10312- 2465 July, Gastroesophageal reflux disease without esophagitis K21.9 [facility] [id number] [place] [address] 16908- 8521 July, Alzheimers disease with early onset G30.0 [facility] [id number] [place] [address] 98329- 2841 July, Chronic obstructive pulmonary disease, unspecified COPD type J44.9 ; Nocturnal cough R05 ; 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 and Recurrent major depressive disorder, in partial 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 [facility] [id number] [place] [address] 57059- 6096 July, [facility] [address] 03142- 1386 July, Type 2 diabetes mellitus with diabetic neuropathy, without long-term current use of insulin E11.40 [place] [address] 68130- 0940 July, Nocturnal hypoxemia G47.34 ; Chronic obstructive pulmonary disease, unspecified COPD type J44.9 and Nocturnal cough R05 [place] [address] 19102- 4621 July, [place] [address] 23275- 2465 July, [facility] [address] 06096- 3326 July, [place] [id number] [place] [address] 54215- 1767 Jun, Chronic pain syndrome G89.4 [facility] [id number] [place] [address] 73523- 5398 Jun, [facility] [address] 33387- 3294 Jun, [facility] [id number] [place] [address] 48905- 8755 Jun, Alzheimers disease with early onset G30.0 [facility] [id number] [place] [address] 18192- 9887 Jun, [facility] [address] 79078- 3713 Jun, Gastroesophageal reflux disease without esophagitis K21.9 [facility] [id number] [place] [address] 70958- 1712 04 Jun, 2017 Allergic rhinitis, unspecified allergic rhinitis trigger, unspecified rhinitis seasonality J30.9 [facility] [id number] [place] [address] 46373- 7490 02 Jun, 2017 Chronic pain syndrome G89.4 [place] [address] 12161- 1035 May, [place] [address] 68945- 3842 May, COPD with acute exacerbation J44.1 [place] [address] 98050- 1903 14 May, 2017 Type 2 diabetes mellitus with diabetic neuropathy, without long-term current use of insulin E11.40 ; COPD with acute exacerbation J44.1 ; Hypoxia R09.02 ; Chronic pain syndrome G89.4 ; Yeast dermatitis B37.2 ; Alzheimers disease with early onset G30.0 and 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 [place] [address] 26111- 2431 May, [place] [id number] [place] [address] 61442- 2432 May, Chronic pain syndrome G89.4 [place] [id number] [place] [address] 76617- 2038 May, [place] [address] 63768- 9203 May, [place] [address] 09265- 9649 May, Mixed hyperlipidemia E78.2 [place] [address] 57237- 8014 15 May, 2017 Chronic pain syndrome G89.4 [place] [address] [address]- 6964 May, Anxiety F41.9 and Chronic pain syndrome G89.4 [facility] [address] [address]- 7506 Mar, [facility] [address] [address]- 0692 Mar, [facility] [id number] [place] [address] 55183- 6278 Mar, [facility] [id number] [place] [address] 23604- 3375 Mar, [facility] [id number] [place] [address] 26178- 7669 Mar, [facility] [id number] [address]- 2516 Mar, Anxiety F41.9 and Chronic pain syndrome G89.4 [facility] [address] [address]- 9796 Mar, Medicare annual wellness visit, initial Z00.00 [...] L57.0 [facility] [address] [address]- 5152 Mar, [facility] [id number] [address]- 4694 Mar, Chronic pain syndrome G89.4 [facility] [address] [address]- 5737 Feb, [facility] [id number] [place] [address] 64332- 8099 Feb, Chronic pain syndrome G89.4 [facility] [id number] [place] [address] 23473- 7681 Feb, [facility] [id number] [place] [address] 52223- 9616 Feb, [facility] [id number] [place] [address] 01931- 1062 Feb, Anxiety F41.9 [facility] [id number] [place] [address] 05115- 5315 Feb, [facility] [id number] [place] [address] 70122- 8042 Feb, Chronic pain syndrome G89.4 [facility] [id number] [place] [address] 78717- 3325 Jan, Essential hypertension I10 [facility] [id number] [place] [address] 14666- 9349 Jan, Chronic pain syndrome G89.4 [facility] [id number] [place] [address] 23865- 7068 Jan, [facility] [id number] [place] [address] 52712- 3418 Jan, Anxiety F41.9 [facility] [id number] [place] [address] 33775- 9953 Jan, Encounter for immunization Z23 and Community acquired pneumonia, unspecified laterality J18.9 [facility] [id number] [place] [address] 90233- 8441 Jan, Type 2 diabetes mellitus with diabetic neuropathy, without long-term current use of insulin E11.40 [facility] [id number] [place] [address] 72399- 1978 Dec, Anxiety F41.9 and Chronic pain syndrome G89.4 [facility] [address] 09798- 5044 Dec, Chronic pain syndrome G89.4 and Essential hypertension I10 [facility] [address] 09270- 7733 16 Dec, 2016 [facility] [address] 10211- 4439 Dec, Anxiety F41.9 [facility] [address] 03765- 5183 Dec, [facility] [address] 19503- 9371 04 Dec, 2016 Type 2 diabetes mellitus with diabetic neuropathy, without long-term current use of insulin E11.40 ; Lactic acidosis E87.2 ; Chronic obstructive pulmonary disease, unspecified COPD type J44.9 and Encounter for immunization Z23 [facility] [id number] [place] [address] 65048- 0860 Dec, Chronic pain syndrome G89.4 [facility] [address] 55874- 8374 28 Nov, 2016 [facility] [id number] [place] [address] 52602- 7241 Nov, Chronic pain syndrome G89.4 [facility] [id number] [place] [address] 14620- 4842 Nov, [facility] [id number] [place] [address] 57260- 0402 Nov, [facility] [address] 17120- 6570 15 Nov, 2016 Anxiety F41.9 [facility] [id number] [place] [address] 75791- 6158 11 Nov, 2016 Anxiety F41.9 [facility] [address] [address]- 9262 08 Nov, 2016 [facility] [id number] [place] [address] 93875- 6641 Nov, [facility] [id number] [place] [address] 07485- 2997 Nov, [facility] [id number] [place] [address] 98111- 2591 Oct, [facility] [id number] [place] [address] 82915- 4150 Oct, [facility] [id number] [place] [address] 77805- 0033 Oct, [facility] [id number] [place] [address] 07771- 9676 Oct, Essential hypertension I10 and Chronic pain syndrome G89.4 [facility] [id number] [place] [address] 27984- 3279 Oct, Anxiety F41.9 [facility] [id number] [place] [address] 48335- 3354 Oct, [facility] [id number] [place] [address] 96392- 0768 Oct, Chronic pain syndrome G89.4 [facility] [id number] [place] [address] 83510 -5593 Oct, Sore throat J02.9 and Acute nasopharyngitis (common cold) J00 [facility] [id number] [place] [address] 30841- 7813 Sep, [facility] [id number] [place] [address] 85774- 4910 Sep, COPD exacerbation J44.1 [facility] [id number] [place] [address] 66210- 2591 Sep, Chronic pain syndrome G89.4 [facility] [id number] [place] [address] 56931- 9761 Sep, Essential hypertension I10 [facility] [id number] [place] [address] 57713- 5813 Sep, [facility] [id number] [place] [address] 79608- 4575 Sep, [facility] [id number] [place] [address] 59797- 6873 Sep, Anxiety F41.9 [facility] [id number] [place] [address] 13752- 4515 Sep, Chronic pain syndrome G89.4 [facility] [id number] [place] [address] 57037- 0235 Sep, [facility] [id number] [place] [address] 76628- 6422 Aug, Acute seasonal allergic rhinitis, unspecified trigger J30.2 ; Hiatal hernia K44.9 and Chronic pain syndrome G89.4 [facility] [id number] [place] [address] 18644- 5340 Aug, [facility] [id number] [place] [address] 65864- 9387 Aug, [facility] [id number] [place] [address] 64130- 8907 Aug, Chronic obstructive pulmonary disease, unspecified COPD type J44.9 [facility] [id number] [place] [address] 35859- 8121 14 Aug, 2016 Anxiety F41.9 [facility] [id number] [place] [address] 02496- 1774 08 Aug, 2016 Chronic pain syndrome G89.4 [facility] [id number] [place] [address] 36009- 0519 07 Aug, 2016 Hiatal hernia K44.9 and Actinic keratosis L57.0 [facility] [address], [place] [address]- 5856 Aug, [facility] [id number] [place] [address] 48686- 8801 Aug, Anxiety F41.9 [facility] [id number] [place] [address] 47041- 0246 July, [facility] [id number] [place] [address] 34208- 3681 July, Hiatal hernia K44.9 [facility] [id number] [place] [address] 56498- 8572 July, [facility] [id number] [place] [address] 55031- 6632 July, Anxiety F41.9 and Chronic pain syndrome G89.4 [facility] [id number] [place] [address] 22661- 8453 July, [facility] [id number] [place] [address] 18416- 3949 Jun, Chronic pain syndrome G89.4 [facility] [id number] [place] [address] 46594- 3233 Jun, Chronic pain syndrome G89.4 [facility] [id number] [place] [address] 09905- 3389 Jun, [facility] [id number] [place] [address] 38610- 9068 Jun, Anxiety F41.9 [facility] [id number] [place] [address] 90767- 0374 Jun, Allergic rhinitis, unspecified allergic rhinitis trigger, unspecified rhinitis seasonality J30.9 [facility] [id number] [place] [address] 91215- 2814 Jun, [facility] [id number] [place] [address] 18022- 3794 May, Chronic pain syndrome G89.4 [place] [address] [address]- 2384 May, [place] [address] [address]- 4137 May, [place] [address] [address]- 8574 May, Anxiety F41.9 [place] [id number] [address] May, Type 2 diabetes mellitus with diabetic [...] Anxiety F41.9 and Chronic pain syndrome G89.4 [place] [address] [place] [id number] [address] May, Essential hypertension I10 ; Type 2 diabetes mellitus with diabetic neuropathy, without long-term current use of insulin E11.40 ; Mixed hyperlipidemia E78.2 ; Chronic obstructive pulmonary disease, unspecified COPD type J44.9 and Chronic GERD K21.9 [place] [id number] [address] May, [place] [id number] [address] May, [place] [id number] [address] May, Type 2 diabetes mellitus with diabetic neuropathy, without long-term current use of insulin E11.40 [place] [id number], [place] [address] May, Dementia without behavioral disturbance, unspecified dementia type F03.90 [place] [id number] [place] [address] May, Type 2 diabetes mellitus with diabetic neuropathy, without long-term current use of insulin E11.40 ; Essential hypertension I10 ; Mixed hyperlipidemia E78.2 ; Chronic obstructive pulmonary disease, unspecified COPD type J44.9 ; Chronic GERD K21.9 and Osteoarthritis of both knees, unspecified osteoarthritis type M17.0 [place] [address] [place] [id number] [place] [address] May, [place] [address] [place] [id number] [place] [address]- [address]266 May, [place] [address] [place] [id number] [place] [address] 74957- 2815 May, Anxiety F41.9 and Unspecified symptoms and signs involving cognitive functions and awareness R41.9 [place] [place] [id number] [place] [address] 22632- 3814 May, [place] [id number] [place] [address] 14275- 3031 May, Type 2 diabetes mellitus with diabetic neuropathy, without long-term current use of insulin E11.40 ; Anxiety F41.9 and Chronic obstructive pulmonary disease, unspecified COPD type J44.9 [place] [place] [id number] [place] [address] 60276- 8280 May, [place] [id number] [place] [address] 95680- 1722 May, [place] [id number] [place] [address] 76949- 7727 May, [place] [id number] [place] [address] 65773- 9677 May, Chronic obstructive pulmonary disease, unspecified COPD type J44.9 [place] [place] [id number] [place] [address] 73194- 6081 Mar, [place] [id number] [place] [address] 92225- 4476 Mar, Arthritis of both knees M19.90 [place] [address] 25744- 9273 Mar, Type 2 diabetes mellitus with diabetic neuropathy, without long-term current use of insulin E11.40 [place] [address] 61007- 9409 Mar, [place] [place] [address] 26550- 0213 Mar, Neck pain M54.2 and Weakness generalized R53.[address] [address]- 1994 Mar, [place] [address] 67245- 4999 Mar, Cervicalgia M54.2 and Impacted cerumen of both ears H61.23 [place] [address] 66158- 0073 Mar, [place] [address] 53352- 6966 Mar, Type 2 diabetes mellitus with diabetic neuropathy, without long-term current use of insulin E11.40 [place] [place] [id number] [place] [address] 21714- 5971 Feb, [place] [address] 39959- 3582 Feb, Hypoxia R09.02 [place] [address] 89089- 5870 Feb, [place] [address] 17914- 3133 Feb, [place] [address] 57120- 1431 Feb, [facility] [address] [address] Feb, Type 2 diabetes mellitus with diabetic neuropathy, without long-term current use of insulin E11.40 [facility] [address] [address] 15 Feb, 2016 Osteoarthritis of both knees, unspecified osteoarthritis type M17.0 [facility] [id number] [place] [address] 66118- 0214 Feb, [facility] [id number] [place] [address] 16984- 7712 Feb, [facility] [id number] [place] [address] 21804- 7847 Feb, [facility] [id number] [place] [address] 17182- 6228 Jan, [facility] [id number] [place] [address] 03855- 0833 Jan, [facility] [id number] [place] [address] 17355- 0837 Jan, [facility] [id number] [place] [address] 93420- 2086 Jan, [facility] [address] [address] 9645 Jan, Tinea pedis of both feet B35.3 [facility] [address] [place] [address] 03 Jan, 2016 Type 2 diabetes mellitus [...] for immunization Z23 [facility] [id number] [place] [address] 99165- 6719 Jan, [facility] [id number] [place] [address] 77256- 9118 Jan, [facility] [address] 34458- 9603 Dec, [facility] [id number] [place] [address] 98729- 2662 Dec, [facility] [address] 15232 -4738 Dec, Unspecified asthma with (acute) exacerbation J45.901 and Chronic obstructive pulmonary disease with (acute) exacerbation J44.1 [place] [address] 15208- 9017 Dec, Arthritis of both knees M19.90 and Acute medial meniscus tear, right, initial encounter S83.241A [facility] [place] [id number] [place] [address] 13105- 2593 Dec, [facility] [place] [id number] [place] [address] 71127- 8454 Dec, [place] [id number] [place] [address] 63850- 8878 Dec, [facility] [id number] [place] [address] 38974- 4238 Dec, [place] [id number] [place] [address] 23902- 0435 Dec, History of pneumonia Z87.01 [facility] [id number] [place] [address] 36110- 8040 Dec, [facility] [id number] [place] [address] 87838- 5104 Dec, [place] [address] [address]- 6575 Dec, [place] [id number] [place] [address] 92691- 4723 Dec, [place] [id number] [place] [address] 99785- 2246 Dec, [place] [id number] [place] [address] 87810- 5008 Dec, [place] [id number] [place] [address] 12748- 5483 Nov, Cough R05 and Pneumonia due to infectious organism, unspecified laterality, unspecified part of lung J18.9 [place] [id number] [place] [address] 74623- 0832 Nov, [place] [id number] [place] [address] 86838- 0182 Nov, Type 2 diabetes mellitus with diabetic [...] allergic rhinitis trigger, unspecified rhinitis seasonality J30.9 [place] [id number] [place] [address] 07053- 0456 12 Nov, 2015 IMMUNIZATIONS No Known Immunizations SOCIAL HISTORY Never Assessed REASON FOR VISIT CCM note PLAN OF CARE VITAL SIGNS MEDICATIONS Medication Instructions Dosage Frequency Start Date End Date Duration Status Benzonatate 100 mg Orally at bedtime 1 capsule as needed Sep, 30 days Active RESULTS No Results PROCEDURES No Known procedures INSTRUCTIONS MEDICATIONS ADMINISTERED No Known Medications MEDICAL (GENERAL) HISTORY Type Description Date Medical History hypertension Medical History chronic obstructive pulmonary disease (COPD)-wears 2L O2 per [place], uses [place] for home O2 Medical History Arthritis-knees and [...] Attending 12/2016 Hospitalization History Cough- [facility] [place] 04/10/2017 Hospitalization History [facility] - Possible Pneumonia 06/2017 Hospitalization History COPD hiatal hernia 08/2017
--- OUTSIDE RECORDS SUMMARY | 2018-01-05 15:56 | XMS REPORT ---
Author Author DARIN HARTLEY Organization [facility] Address [address] 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 Active 263014023693288 Problem Nocturnal hypoxemia G47.34 Active 403910497 Problem Gastroesophageal reflux disease without esophagitis K21.9 Active 388673488 Problem Recurrent major depressive disorder, in partial 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 Active 03551744 Problem 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 Active 586252116 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 Active 9216941 Problem Hypoxia R09.02 Active 836048009 Problem Elevated transaminase level R74.0 Active 072427025 Problem 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 Active 759159853 Problem Essential hypertension I10 Active 38168719 Problem Anxiety F41.9 Active 10035594 Problem Chronic obstructive pulmonary disease, unspecified COPD type J44.9 Active 18439660 Problem Allergic rhinitis, unspecified allergic rhinitis trigger, unspecified rhinitis seasonality J30.9 Active 55029290 Problem Mixed hyperlipidemia E78.2 Active 718377773 Problem Type 2 diabetes mellitus with diabetic neuropathy, without long-term current use of insulin E11.40 Active 04322104 ALLERGIES No Information ENCOUNTERS Encounter Location Date Diagnosis [facility] [address] [facility] [id number] [address] Nov, [facility] [address] [facility] [id number] [address] Nov, Chronic obstructive pulmonary disease, unspecified COPD type J44.9 and Gastroesophageal reflux disease without esophagitis K21.9 [facility] [id number] [place] [address] 80685- 0070 Oct, [facility] [id number] [place] [address] 56231- 3494 Oct, [facility] [id number] [place] [address] 00729- 4260 Oct, Chronic pain syndrome G89.4 [facility] [id number] [place] [address] 66749- 6669 Oct, Community acquired bacterial pneumonia J15.9 ; Allergic rhinitis, unspecified allergic rhinitis trigger, unspecified rhinitis seasonality J30.9 ; Type 2 diabetes mellitus with diabetic neuropathy, without long-term current use of insulin E11.40 ; Chronic GERD K21.9 and Chronic obstructive pulmonary disease, unspecified COPD type J44.9 [facility] [id number] [place] [address] 24354- 1912 Oct, [facility] [id number] [place] [address] 29069- 2813 Oct, [facility] [id number] [place] [address] 71307- 2974 Oct, [facility] [id number] [place] [address] 22121- 7158 Oct, [facility] [id number] [place] [address] 24458- 8626 Oct, Essential hypertension I10 [facility] [id number] [place] [address] 48513- 1835 Oct, Type 2 diabetes mellitus with diabetic neuropathy, without long-term current use of insulin E11.40 ; Chronic obstructive pulmonary disease , unspecified COPD type J44.9 ; Mixed hyperlipidemia E78.2 ; Osteoarthritis of both knees, unspecified osteoarthritis type M17.0 ; Alzheimers disease with early onset G30.0 and Essential hypertension I10 [facility] [address] [place] [address] 9254 Oct, [facility] [id number] [place] [address] 28072- 2671 Oct, [facility] [id number] [place] [address] 71493- 1810 Oct, Yeast dermatitis B37.2 [facility] [id number] [place] [address] 71438- 7545 Oct, Chronic pain syndrome G89.4 [facility] [id number] [place] [address] 84176- 6302 Sep, [facility] [id number] [place] [address] 30844- 2243 Sep, [facility] [id number] [place] [address] 66365- 3289 Sep, Alzheimers disease with early onset G30.0 and Chronic pain syndrome G89.4 [facility] [address] [address]- 6384 Sep, COPD with acute exacerbation J44.1 [facility] [id number] [place] [address] 96467- 3158 Sep, [facility] [id number] [place] [address] 49742- 0466 Sep, [facility] [id number] [place] [address] 78550- 9412 Sep, Gastroesophageal reflux disease without esophagitis K21.9 [facility] [address] [address]- 6183 Aug, [facility] [id number] [place] [address] 50223- 6049 Aug, [facility] [address] [address] 1890 Aug, 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 ; Hospital discharge follow-up Z09 ; Chronic obstructive pulmonary disease, unspecified COPD type J44.9 and Chronic GERD K21.9 [facility] [id number] [place] [address] 44620- 9764 Aug, Chronic pain syndrome G89.4 [facility] [id number] [place] [address] 68895- 8593 Aug, [facility] [id number] [place] [address] 85435- 3992 Aug, [facility] [id number] [place] [address] 75514- 8718 Aug, Chronic pain syndrome G89.4 and Alzheimers disease with early onset G30.0 [facility] [id number] [place] [address] 69210- 2454 18 Aug, 2017 Type 2 diabetes mellitus with diabetic neuropathy, without long-term current use of insulin E11.40 ; Chronic obstructive pulmonary disease , unspecified COPD type J44.9 ; Chronic GERD K21.9 and 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 [facility] [id number] [place] [address] 51377- 6769 Aug, [facility] [id number] [place] [address] 31983- 0154 Aug, Essential hypertension I10 and Cough R05 [facility] [id number] [place] [address] 88678- 1126 Aug, [facility] [id number] [place] [address] 85508- 9321 Aug, [facility] [id number] [place] [address] 31361- 2809 07 Aug, 2017 [facility] [id number] [place] [address] 18013- 0450 06 Aug, 2017 Chronic pain syndrome G89.4 [facility] [id number] [place] [address] 20466- 0374 Aug, [facility] [id number] [place] [address] 64185- 5189 Aug, [facility] [id number] [place] [address] 08811- 8653 July, Gastroesophageal reflux disease without esophagitis K21.9 [facility] [id number] [place] [address] 94467- 9763 July, [facility] [id number] [place] [address] 22863- 2704 July, [facility] [id number] [place] [address] 88617- 2428 July, [facility] [id number] [place] [address] 90473- 4811 July, Essential hypertension I10 and Chronic pain syndrome G89.4 [facility] [address] 26320- 1149 July, Gastroesophageal reflux disease without esophagitis K21.9 [facility] [place] [id number] [place] [address] 12198- 2718 July, Alzheimers disease with early onset G30.0 [facility] [id number] [place] [address] 17024- 8850 July, Chronic obstructive pulmonary disease, unspecified COPD type J44.9 ; Nocturnal cough R05 ; 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 and Recurrent major depressive disorder, in partial 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 [facility] [id number] [place] [address] 62819- 2833 July, [facility] [id number] [place] [address] 88331- 6188 July, Type 2 diabetes mellitus with diabetic neuropathy, without long-term current use of insulin E11.40 [facility] [id number] [place] [address] 30421- 4098 July, Nocturnal hypoxemia G47.34 ; Chronic obstructive pulmonary disease, unspecified COPD type J44.9 and Nocturnal cough R05 [facility] [id number] [place] [address] 72988- 0419 July, [facility] [id number] [place] [address] 31833- 3261 July, [facility] [id number] [place] [address] 60722- 6797 July, [facility] [id number] [place] [address] 27428- 3306 Jun, Chronic pain syndrome G89.4 [facility] [id number] [place] [address] 89789- 6161 Jun, [facility] [id number] [place] [address] 08514- 6408 Jun, [facility] [address] 71422- 8722 Jun, Alzheimers disease with early onset G30.0 [facility] [id number] [place] [address] 07328- 4417 Jun, [facility] [id number] [place] [address] 13354- 6512 Jun, Gastroesophageal reflux disease without esophagitis K21.9 [facility] [id number] [place] [address] 33600- 0300 Jun, Allergic rhinitis, unspecified allergic rhinitis trigger, unspecified rhinitis seasonality J30.9 [facility] [id number] [place] [address] 60024- 4352 Jun, Chronic pain syndrome G89.4 [facility] [id number] [place] [address] 71139- 9417 May, [facility] [id number] [place] [address] 62515- 0324 May, COPD with acute exacerbation J44.1 [facility] [address] [place] [address]- 3944 14 May, 2017 Type 2 diabetes mellitus with diabetic neuropathy, without long-term current use of insulin E11.40 ; COPD with acute exacerbation J44.1 ; Hypoxia R09.02 ; Chronic pain syndrome G89.4 ; Yeast dermatitis B37.2 ; Alzheimers disease with early onset G30.0 and 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 [facility] [address] 60705- 3014 May, [facility] [address] 24100- 5106 May, Chronic pain syndrome G89.4 [facility] [address] 40681- 1948 May, [facility] [address] 62937- 0871 May, [facility] [address] 31822- 1786 May, Mixed hyperlipidemia E78.2 [facility] [address] 07112- 9043 15 May, 2017 Chronic pain syndrome G89.4 [facility] [id number] [place] [address] 58363- 6392 May, Anxiety F41.9 and Chronic pain syndrome G89.4 [facility] [id number] [place] [address] 57431- 6080 Mar, [facility] [id number] [place] [address] 76975- 7094 Mar, [facility] [address] 73303- 7493 Mar, [facility] [id number] [place] [address] 17754- 9744 Mar, [facility] [address] 38799- 4911 Mar, [facility] [id number] [place] [address] 67805- 7697 Mar, Anxiety F41.9 and Chronic pain syndrome G89.4 [facility] [id number] [place] [address] 74744- 0465 Mar, Medicare annual wellness visit, initial Z00.00 [...] Hiatal hernia K44.9 and Actinic keratosis L57.0 [facility] [id number] [place] [address] 28160- 1666 Mar, [facility] [id number] [place] [address] 32493- 6096 Mar, Chronic pain syndrome G89.4 [facility] [id number] [place] [address] 79739- 8034 Feb, [facility] [id number] [place] [address] 74524- 4629 Feb, Chronic pain syndrome G89.4 [facility] [id number] [place] [address] 68635- 3228 Feb, [facility] [id number] [place] [address] 86144- 7663 Feb, [facility] [id number] [place] [address] 84359- 6477 Feb, Anxiety F41.9 [facility] [id number] [place] [address] 82951- 7782 Feb, [facility] [id number] [place] [address] 19700- 5089 Feb, Chronic pain syndrome G89.4 [facility] [id number] [place] [address] 22222- 2343 Jan, Essential hypertension I10 [facility] [id number] [place] [address] 02150- 2172 Jan, Chronic pain syndrome G89.4 [facility] [id number] [place] [address] 11783- 2075 Jan, [facility] [id number] [place] [address] 74148- 9901 Jan, Anxiety F41.9 [facility] [id number] [place] [address] 84827- 3310 Jan, Encounter for immunization Z23 and Community acquired pneumonia, unspecified laterality J18.9 [facility] [id number] [place] [address] 06412- 4106 Jan, Type 2 diabetes mellitus with diabetic neuropathy, without long-term current use of insulin E11.40 [facility] [id number] [place] [address] 25574- 6636 Dec, Anxiety F41.9 and Chronic pain syndrome G89.4 [facility] [id number] [place] [address] 99887- 3022 Dec, Chronic pain syndrome G89.4 and Essential hypertension I10 [facility] [id number] [place] [address] 83922- 5429 Dec, [facility] [id number] [place] [address] 03927- 6190 Dec, Anxiety F41.9 [facility] [id number] [place] [address] 96815- 9281 Dec, [facility] [address] [place] [address]- 2194 Dec, Type 2 diabetes mellitus with diabetic neuropathy, without long-term current use of insulin E11.40 ; Lactic acidosis E87.2 ; Chronic obstructive pulmonary disease, unspecified COPD type J44.9 and Encounter for immunization Z23 [facility] [id number] [address]- 6959 Dec, Chronic pain syndrome G89.4 [facility] [id number] [place] [address] 75451- 1467 Nov, [facility] [id number] [place] [address] 34461- 6168 Nov, Chronic pain syndrome G89.4 [facility] [id number] [place] [address] 37075 2546 Nov, [facility] [id number] [place] [address] 97497- 9545 Nov, [facility] [id number] [place] [address] 31989- 2544 Nov, Anxiety F41.9 [facility] [id number] [place] [address] 48404 2546 Nov, Anxiety F41.9 [facility] [address] [address] 2541 Nov, [facility] [id number] [place] [address] 56116 2545 Nov, [facility] [id number] [place] [address] 20173 2542 Nov, [facility] [id number] [place] [address] 33408- 2778 Oct, [facility] [address] [address]- 4501 Oct, [facility] [id number] [place] [address] 84789- 6627 Oct, [facility] [address] [address]- 2175 Oct, Essential hypertension I10 and Chronic pain syndrome G89.4 [facility] [id number] [place] [address] 78670- 0283 Oct, Anxiety F41.9 [facility] [id number] [place] [address] 65144- 5256 Oct, [facility] [id number] [place] [address] 36807- 2652 Oct, Chronic pain syndrome G89.4 [facility] [id number] [place] [address] 56246 -8751 Oct, Sore throat J02.9 and Acute nasopharyngitis (common cold) J00 [facility] [id number] [place] [address] 84932- 2102 Sep, [facility] [id number] [place] [address] 59260- 3230 Sep, COPD exacerbation J44.1 [facility] [id number] [place] [address] 37461- 0597 Sep, Chronic pain syndrome G89.4 [facility] [id number] [place] [address] 97033- 4271 Sep, Essential hypertension I10 [facility] [id number] [place] [address] 34294- 5656 Sep, [facility] [id number] [place] [address] 15421- 6301 Sep, [facility] [id number] [place] [address] 91432- 3330 Sep, Anxiety F41.9 [facility] [id number] [place] [address] 86128- 0776 Sep, Chronic pain syndrome G89.4 [facility] [id number] [place] [address] 07311- 0470 Sep, [facility] [id number] [place] [address] 86883- 9894 Aug, Acute seasonal allergic rhinitis, unspecified trigger J30.2 ; Hiatal hernia K44.9 and Chronic pain syndrome G89.4 [facility] [id number] [place] [address] 01254- 5591 Aug, [facility] [id number] [place] [address] 15270- 5070 Aug, [facility] [address] 66650- 4284 Aug, Chronic obstructive pulmonary disease, unspecified COPD type J44.9 [facility] [id number] [place] [address] 68197- 5900 Aug, Anxiety F41.9 [facility] [id number] [place] [address] 83969- 6169 Aug, Chronic pain syndrome G89.4 [facility] [id number] [place] [address] 00343- 8539 Aug, Hiatal hernia K44.9 and Actinic keratosis L57.0 [facility] [id number] [place] [address] 67815- 7008 Aug, [facility] [id number] [place] [address] 83702- 6449 Aug, Anxiety F41.9 [facility] [id number] [place] [address] 01319- 0460 July, [facility] [id number] [place] [address] 97238- 4289 July, Hiatal hernia K44.9 [facility] [id number] [place] [address] 25224- 1498 July, [facility] [id number] [place] [address] 53379- 7468 July, Anxiety F41.9 and Chronic pain syndrome G89.4 [facility] [id number] [place] [address] 93894- 0336 July, [facility] [id number] [place] [address] 59903- 5685 Jun, Chronic pain syndrome G89.4 [facility] [id number] [place] [address] 11581- 6898 Jun, Chronic pain syndrome G89.4 [facility] [id number] [place] [address] 76493- 4755 Jun, [facility] [id number] [place] [address] 09921- 7436 Jun, Anxiety F41.9 [facility] [id number] [place] [address] 59277- 1962 Jun, Allergic rhinitis, unspecified allergic rhinitis trigger, unspecified rhinitis seasonality J30.9 [facility] [id number] [place] [address] 76518- 1121 Jun, [facility] [id number] [place] [address] 54116- 8921 May, Chronic pain syndrome G89.4 [facility] [id number] [place] [address] 36328- 7503 May, [facility] [id number] [place] [address] 10106- 5274 May, [facility] [id number] [place] [address] 36407- 4022 May, Anxiety F41.9 [facility] [id number] [place] [address] 43457- 0635 May, Type 2 diabetes mellitus with diabetic [...] and Chronic pain syndrome G89.4 [facility] [id number] [place] [address] 74807- 6865 May, Essential hypertension I10 ; Type 2 diabetes mellitus with diabetic neuropathy, without long-term current use of insulin E11.40 ; Mixed hyperlipidemia E78.2 ; Chronic obstructive pulmonary disease, unspecified COPD type J44.9 and Chronic GERD K21.9 [facility] [place] [address] [address]- 8286 May, [place] [address] 24007- 3255 May, [facility] [place] [address] 00695- 5686 May, Type 2 diabetes mellitus with diabetic neuropathy, without long-term current use of insulin E11.40 [facility] [id number] [place] [address] 56829- 7961 May, Dementia without behavioral disturbance, unspecified dementia type F03.90 [facility] [id number] [place] [address] 70366- 9679 May, Type 2 diabetes mellitus with diabetic neuropathy, without long-term current use of insulin E11.40 ; Essential hypertension I10 ; Mixed hyperlipidemia E78.2 ; Chronic obstructive pulmonary disease, unspecified COPD type J44.9 ; Chronic GERD K21.9 and Osteoarthritis of both knees, unspecified osteoarthritis type M17.0 [facility] [id number] [place] [address] 33072- 4857 May, [facility] [id number] [place] [address] [address] May, [place] [address] [place] [address] May, Anxiety F41.9 and Unspecified symptoms and signs involving cognitive functions and awareness R41.9 [facility] [address] [id number] [place] [address] 19957- 1008 May, [facility] [id number] [place] [address] 11228- 9836 May, Type 2 diabetes mellitus with diabetic neuropathy, without long-term current use of insulin E11.40 ; Anxiety F41.9 and Chronic obstructive pulmonary disease, unspecified COPD type J44.9 [place] [id number] [place] [address] 63578- 5429 May, [place] [id number] [place] [address] 45280- 6486 May, [place] [address] [address]- 7[address] May, [facility] [id number] [place] [address] 63819- 6311 May, Chronic obstructive pulmonary disease, unspecified COPD type J44.9 [place] [id number] [place] [address] 61999- 0592 Mar, [place] [id number] [place] [address] 87919- 5633 Mar, Arthritis of both knees M19.90 [place] [id number] [place] [address] 80438- 3564 Mar, Type 2 diabetes mellitus with diabetic neuropathy, without long-term current use of insulin E11.40 [place] [id number] [place] [address] 21973- 4010 Mar, [place] [id number] [place] [address] 42226- 2454 Mar, Neck pain M54.2 and Weakness generalized R53.1 [place] [address] [place] [place] [address] 04 Mar, 2016 [facility] [id number] [place] [address] 92458- 6963 Mar, Cervicalgia M54.2 and Impacted cerumen of both ears H61.23 [facility] [id number] [place] [address] 50381- 4218 Mar, [facility] [address] [address]69- 8576 Mar, Type 2 diabetes mellitus with diabetic neuropathy, without long-term current use of insulin E11.40 [facility] [address] [address]34- 6212 Feb, [facility] [id number] [place] [address] 20830- 5019 Feb, Hypoxia R09.02 [facility] [address] 35812- 5170 Feb, [facility] [id number] [place] [address] 78995- 5946 Feb, [facility] [id number] [place] [address] 84750- 4913 Feb, [facility] [id number] [place] [address] 70055- 6503 16 Feb, 2016 Type 2 diabetes mellitus with diabetic neuropathy, without long-term current use of insulin E11.40 [facility] [id number] [place] [address] 32415- 4544 15 Feb, 2016 Osteoarthritis of both knees, unspecified osteoarthritis type M17.0 [facility] [id number] [place] [address] 87736- 2728 14 Feb, 2016 [facility] [id number] [place] [address] 90896- 2421 12 Feb, 2016 [facility] [id number] [place] [address] 15784- 7088 Feb, [facility] [id number] [place] [address] 70137- 8721 Jan, [facility] [id number] [place] [address] 28742- 1177 Jan, [facility] [id number] [place] [address] 85044- 4039 Jan, [facility] [id number] [place] [address] 97174- 1199 Jan, [facility] [id number] [place] [address] 16318- 9569 Jan, Tinea pedis of both feet B35.3 [facility] [id number] [place] [address] 16661- 6944 Jan, Type 2 diabetes mellitus with diabetic [...] seasonality J30.9 and Encounter for immunization Z23 [facility] [id number] [place] [address] 80136- 8898 Jan, [facility] [id number] [place] [address] 23852- 1781 Jan, [facility] [id number] [place] [address] 37436- 5582 Dec, [facility] [id number] [place] [address] 82612- 7868 Dec, [facility] [id number] [place] [address] 01435 -0052 Dec, Unspecified asthma with (acute) exacerbation J45.901 and Chronic obstructive pulmonary disease with (acute) exacerbation J44.1 [facility] [id number] [place] [address] 98503- 8106 Dec, Arthritis of both knees M19.90 and Acute medial meniscus tear, right, initial encounter S83.241A [facility] [id number] [place] [address] 72242- 3681 Dec, [facility] [id number] [place] [address] 24959- 9967 Dec, [facility] [id number] [place] [address] 91910- 7091 Dec, [facility] [id number] [place] [address] 98466- 3113 Dec, [facility] [id number] [place] [address] 12407- 5303 Dec, History of pneumonia Z87.01 [facility] [id number] [place] [address] 28789- 4575 Dec, [facility] [id number] [place] [address] 12947- 3472 Dec, [facility] [id number] [place] [address] 07010- 6145 Dec, [facility] [id number] [place] [address] 28849- 2201 Dec, [facility] [id number] [place] [address] 84780- 1798 Dec, [facility] [id number] [place] [address] 33153- 8335 Dec, [facility] [id number] [place] [address] 02208- 4775 30 Nov, 2015 Cough R05 and Pneumonia due to infectious organism, unspecified laterality, unspecified part of lung J18.9 [place] [address] [facility] [id number] [place] [address]- [address] Nov, [place] [address] [facility] [id number] [address] 2694 Nov, Type 2 diabetes mellitus with diabetic [...] trigger, unspecified rhinitis seasonality J30.9 [place] [address] [facility] [id number] [place] [address]- 7599 Nov, IMMUNIZATIONS No Known Immunizations SOCIAL HISTORY Never Assessed REASON FOR VISIT CCM note PLAN OF CARE VITAL SIGNS MEDICATIONS Unknown Medications RESULTS No Results PROCEDURES No Known procedures INSTRUCTIONS MEDICATIONS ADMINISTERED No Known Medications MEDICAL (GENERAL) HISTORY Type Description Date Medical History hypertension Medical History chronic obstructive pulmonary disease (COPD)-wears 2L O2 per [place], uses [place] for home O2 Medical History Arthritis-knees and [...] TIA, [facility] 2014 Hospitalization History COPD exacerbation--[facility] 12/27/2015 [facility] History [facility] - fall 02/2016 Hospitalization History [facility] pneumonia 11/2016 Hospitalization History COPD exacerbation - Dr Hartley Attending 12/2016 Hospitalization History Cough- [facility] 04/10/2017 Hospitalization History [facility] - Possible Pneumonia 06/2017 Hospitalization History COPD hiatal hernia 08/2017
--- OUTSIDE RECORDS SUMMARY | 2018-01-05 15:56 | XMS REPORT ---
Author Author DARIN HARTLEY Organization [facility] Address [address] 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 Active 362156306159337 Problem Nocturnal hypoxemia G47.34 Active 452417573 Problem Gastroesophageal reflux disease without esophagitis K21.9 Active 762968477 Problem Recurrent major depressive disorder, in partial 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 Active 09969200 Problem 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 Active 002073546 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 Active 2354635 Problem Hypoxia R09.02 Active 403667083 Problem Elevated transaminase level R74.0 Active 362769099 Problem 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 Active 244537849 Problem Essential hypertension I10 Active 13083934 Problem Anxiety F41.9 Active 65612798 Problem Chronic obstructive pulmonary disease, unspecified COPD type J44.9 Active 24965938 Problem Allergic rhinitis, unspecified allergic rhinitis trigger, unspecified rhinitis seasonality J30.9 Active 22020728 Problem Mixed hyperlipidemia E78.2 Active 490444918 Problem Type 2 diabetes mellitus with diabetic neuropathy, without long-term current use of insulin E11.40 Active 86838963 ALLERGIES No Information ENCOUNTERS Encounter Location Date Diagnosis [facility] [address] [facility] [id number] [address] Nov, [facility] [address] [facility] [id number], [place] [address] Nov, Chronic obstructive pulmonary disease, unspecified COPD type J44.9 and Gastroesophageal reflux disease without esophagitis K21.9 [facility] [id number] [place] [address] 86506- 7724 Oct, [facility] [id number] [place] [address] 17979- 1805 Oct, [facility] [id number] [place] [address] 32615- 0769 Oct, Chronic pain syndrome G89.4 [facility] [id number] [place] [address] 92213- 4436 Oct, Community acquired bacterial pneumonia J15.9 ; Allergic rhinitis, unspecified allergic rhinitis trigger, unspecified rhinitis seasonality J30.9 ; Type 2 diabetes mellitus with diabetic neuropathy, without long-term current use of insulin E11.40 ; Chronic GERD K21.9 and Chronic obstructive pulmonary disease, unspecified COPD type J44.9 [place] [id number] [place] [address] 32414- 3028 Oct, [facility] [id number] [place] [address] 41357- 7850 Oct, [facility] [id number] [place] [address] 99952- 2214 Oct, [facility] [id number] [place] [address] 87042- 5924 Oct, [facility] [id number] [place] [address] 27370- 5908 Oct, Essential hypertension I10 [facility] [id number] [place] [address] 86303- 4902 Oct, Type 2 diabetes mellitus with diabetic neuropathy, without long-term current use of insulin E11.40 ; Chronic obstructive pulmonary disease , unspecified COPD type J44.9 ; Mixed hyperlipidemia E78.2 ; Osteoarthritis of both knees, unspecified osteoarthritis type M17.0 ; Alzheimers disease with early onset G30.0 and Essential hypertension I10 [facility] [address], [place] [address] Oct, [facility] [id number] [place] [address] 23730- 6441 Oct, [facility] [id number] [place] [address] 34549- 0847 Oct, Yeast dermatitis B37.2 [facility] [id number] [place] [address] 71455- 3116 Oct, Chronic pain syndrome G89.4 [facility] [id number] [place] [address] 07230- 4072 Sep, [facility] [id number] [place] [address] 05985- 4271 Sep, [facility] [id number] [place] [address] 29147- 9001 Sep, Alzheimers disease with early onset G30.0 and Chronic pain syndrome G89.4 [facility] [address], [place] [address] 5[address] Sep, COPD with acute exacerbation J44.1 [facility] [id number] [place] [address] 92081- 4806 Sep, [facility] [id number] [place] [address] 75221- 0596 Sep, [facility] [id number] [place] [address] 89292- 2320 Sep, Gastroesophageal reflux disease without esophagitis K21.9 [facility] [address], [place] [address] 9348 Aug, [facility] [id number] [place] [address] 56248- 5328 Aug, [facility] [address], [place] [address] Aug, 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 ; Hospital discharge follow-up Z09 ; Chronic obstructive pulmonary disease, unspecified COPD type J44.9 and Chronic GERD K21.9 [place] [id number] [place] [address] 39753- 6686 Aug, Chronic pain syndrome G89.4 [facility] [id number] [place] [address] 21108- 2723 Aug, [facility] [id number] [place] [address] 80340- 4118 Aug, [place] [id number] [place] [address] 04757- 8138 Aug, Chronic pain syndrome G89.4 and Alzheimers disease with early onset G30.0 [place] [id number] [place] [address] 86211- 0227 18 Aug, 2017 Type 2 diabetes mellitus with diabetic neuropathy, without long-term current use of insulin E11.40 ; Chronic obstructive pulmonary disease , unspecified COPD type J44.9 ; Chronic GERD K21.9 and 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 [place] [id number] [place] [address] 60606- 2065 Aug, [place] [id number] [place] [address] 49351- 5329 Aug, Essential hypertension I10 and Cough R05 [place] [id number] [place] [address] 07938- 1742 Aug, [facility] [id number] [place] [address] 91580- 5010 Aug, [place] [id number] [place] [address] 10102- 1323 07 Aug, 2017 [facility] [id number] [place] [address] 87507- 1779 06 Aug, 2017 Chronic pain syndrome G89.4 [place] [id number] [place] [address] 64990- 4459 Aug, [place] [id number] [place] [address] 82943- 4519 Aug, [facility] [id number] [place] [address] 24592- 0691 July, Gastroesophageal reflux disease without esophagitis K21.9 [facility] [id number] [place] [address] 59159- 8398 July, [facility] [id number] [place] [address] 67026- 8987 July, [facility] [id number] [place] [address] 20228- 6178 July, [place] [id number] [place] [address] 01496- 4068 July, Essential hypertension I10 and Chronic pain syndrome G89.4 [place] [address] 51422- 5631 July, Gastroesophageal reflux disease without esophagitis K21.9 [place] [id number] [place] [address] 46224- 2304 July, Alzheimers disease with early onset G30.0 [place] [id number] [place] [address] 29202- 7078 July, Chronic obstructive pulmonary disease, unspecified COPD type J44.9 ; Nocturnal cough R05 ; 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 and Recurrent major depressive disorder, in partial 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 [place] [id number] [place] [address] 50078- 2244 July, [place] [id number] [place] [address] 42370- 3141 July, Type 2 diabetes mellitus with diabetic neuropathy, without long-term current use of insulin E11.40 [place] [id number] [place] [address] 75027- 4263 July, Nocturnal hypoxemia G47.34 ; Chronic obstructive pulmonary disease, unspecified COPD type J44.9 and Nocturnal cough R05 [facility] [id number] [place] [address] 24128- 1313 July, [facility] [id number] [place] [address] 27080- 9198 July, [facility] [id number] [place] [address] 51037- 3878 July, [facility] [id number] [place] [address] 30627- 8135 Jun, Chronic pain syndrome G89.4 [facility] [id number] [place] [address] 54012- 0737 Jun, [facility] [id number] [place] [address] 86458- 3158 Jun, [facility] [address] 04055- 3447 Jun, Alzheimers disease with early onset G30.0 [facility] [id number] [place] [address] 64921- 2421 Jun, [facility] [id number] [place] [address] 57510- 2015 Jun, Gastroesophageal reflux disease without esophagitis K21.9 [facility] [id number] [place] [address] 71359- 7251 Jun, Allergic rhinitis, unspecified allergic rhinitis trigger, unspecified rhinitis seasonality J30.9 [facility] [id number] [place] [address] 58752- 5200 Jun, Chronic pain syndrome G89.4 [facility] [id number] [place] [address] 16612- 7561 May, [facility] [id number] [place] [address] 39487- 5280 May, COPD with acute exacerbation J44.1 [facility] [address] [place] [address]- 9776 14 May, 2017 Type 2 diabetes mellitus with diabetic neuropathy, without long-term current use of insulin E11.40 ; COPD with acute exacerbation J44.1 ; Hypoxia R09.02 ; Chronic pain syndrome G89.4 ; Yeast dermatitis B37.2 ; Alzheimers disease with early onset G30.0 and 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 [facility] [address] 64395- 7562 May, [facility] [address] 06156- 3583 May, Chronic pain syndrome G89.4 [facility] [address] 73750- 7093 May, [facility] [address] 98767- 3274 May, [facility] [address] 35468- 0408 May, Mixed hyperlipidemia E78.2 [facility] [address] 14340- 8496 15 May, 2017 Chronic pain syndrome G89.4 [facility] [id number] [place] [address] 56391- 1324 May, Anxiety F41.9 and Chronic pain syndrome G89.4 [facility] [id number] [place] [address] 53073- 2228 Mar, [facility] [id number] [place] [address] 61392- 2207 Mar, [facility] [address] 53013- 6081 Mar, [facility] [id number] [place] [address] 62390- 8867 Mar, [facility] [address] 40005- 4993 Mar, [facility] [id number] [place] [address] 72044- 1148 Mar, Anxiety F41.9 and Chronic pain syndrome G89.4 [facility] [id number] [place] [address] 40218- 8143 Mar, Medicare annual wellness visit, initial Z00.00 [...] Hiatal hernia K44.9 and Actinic keratosis L57.0 [facility] [id number] [place] [address] 21237- 3567 Mar, [facility] [id number] [place] [address] 23994- 8961 Mar, Chronic pain syndrome G89.4 [facility] [id number] [place] [address] 24181- 8733 Feb, [facility] [id number] [place] [address] 33955- 5536 Feb, Chronic pain syndrome G89.4 [facility] [id number] [place] [address] 90194- 6477 Feb, [facility] [id number] [place] [address] 74569- 0733 Feb, [facility] [id number] [place] [address] 16793- 6563 Feb, Anxiety F41.9 [facility] [id number] [place] [address] 37582- 8233 Feb, [facility] [id number] [place] [address] 50560- 3030 Feb, Chronic pain syndrome G89.4 [facility] [id number] [place] [address] 77536- 2935 Jan, Essential hypertension I10 [facility] [id number] [place] [address] 48965- 7143 Jan, Chronic pain syndrome G89.4 [facility] [id number] [place] [address] 01303- 9866 Jan, [facility] [id number] [place] [address] 46548- 2612 Jan, Anxiety F41.9 [facility] [id number] [place] [address] 23858- 2848 Jan, Encounter for immunization Z23 and Community acquired pneumonia, unspecified laterality J18.9 [facility] [id number] [place] [address] 43679- 1695 Jan, Type 2 diabetes mellitus with diabetic neuropathy, without long-term current use of insulin E11.40 [facility] [id number] [place] [address] 45041- 8740 Dec, Anxiety F41.9 and Chronic pain syndrome G89.4 [facility] [id number] [place] [address] 83873- 0179 Dec, Chronic pain syndrome G89.4 and Essential hypertension I10 [facility] [id number] [place] [address] 66448- 3501 Dec, [facility] [id number] [place] [address] 59347- 9303 Dec, Anxiety F41.9 [facility] [id number] [place] [address] 71338- 5575 Dec, [facility] [address] [place] [address]- 3113 Dec, Type 2 diabetes mellitus with diabetic neuropathy, without long-term current use of insulin E11.40 ; Lactic acidosis E87.2 ; Chronic obstructive pulmonary disease, unspecified COPD type J44.9 and Encounter for immunization Z23 [facility] [id number] [address]- 8009 Dec, Chronic pain syndrome G89.4 [facility] [id number] [place] [address] 51340- 2388 Nov, [facility] [id number] [place] [address] 14045- 4146 Nov, Chronic pain syndrome G89.4 [facility] [id number] [place] [address] 84149 2546 Nov, [facility] [id number] [place] [address] 04091- 2520 Nov, [facility] [id number] [place] [address] 35479- 2543 Nov, Anxiety F41.9 [facility] [id number] [place] [address] 22151 2546 Nov, Anxiety F41.9 [facility] [address], [place] [address] 2544 Nov, [facility] [id number] [place] [address] 52819 2548 Nov, [facility] [id number] [place] [address] 91886 2549 Nov, [facility] [id number] [place] [address] 43025- 4602 Oct, [facility] [address], [place] [address]- 3945 Oct, [facility] [id number] [place] [address] 25357- 6437 Oct, [facility] [address], [place] [address]- 0796 Oct, Essential hypertension I10 and Chronic pain syndrome G89.4 [facility] [id number] [place] [address] 73597- 7792 Oct, Anxiety F41.9 [facility] [id number] [place] [address] 00998- 7891 Oct, [facility] [id number] [place] [address] 54690- 1230 Oct, Chronic pain syndrome G89.4 [facility] [id number] [place] [address] 13264 -4293 Oct, Sore throat J02.9 and Acute nasopharyngitis (common cold) J00 [facility] [id number] [place] [address] 93582- 9731 Sep, [facility] [id number] [place] [address] 74591- 1412 Sep, COPD exacerbation J44.1 [facility] [id number] [place] [address] 81751- 7862 Sep, Chronic pain syndrome G89.4 [facility] [id number] [place] [address] 33492- 2727 Sep, Essential hypertension I10 [facility] [id number] [place] [address] 80592- 5715 Sep, [facility] [id number] [place] [address] 96537- 1090 Sep, [facility] [id number] [place] [address] 58455- 6673 Sep, Anxiety F41.9 [facility] [id number] [place] [address] 62433- 2637 Sep, Chronic pain syndrome G89.4 [facility] [id number] [place] [address] 97469- 4277 Sep, [facility] [id number] [place] [address] 36503- 4522 Aug, Acute seasonal allergic rhinitis, unspecified trigger J30.2 ; Hiatal hernia K44.9 and Chronic pain syndrome G89.4 [facility] [id number] [place] [address] 43482- 7830 Aug, [facility] [id number] [place] [address] 09186- 1168 Aug, [facility] [address] 71230- 2140 Aug, Chronic obstructive pulmonary disease, unspecified COPD type J44.9 [facility] [id number] [place] [address] 28424- 9183 Aug, Anxiety F41.9 [facility] [id number] [place] [address] 15506- 9214 Aug, Chronic pain syndrome G89.4 [facility] [id number] [place] [address] 65239- 0899 Aug, Hiatal hernia K44.9 and Actinic keratosis L57.0 [facility] [id number] [place] [address] 71428- 1322 Aug, [facility] [id number] [place] [address] 40007- 4084 Aug, Anxiety F41.9 [facility] [id number] [place] [address] 65743- 2967 July, [facility] [id number] [place] [address] 38308- 7441 July, Hiatal hernia K44.9 [facility] [id number] [place] [address] 82913- 2439 July, [facility] [id number] [place] [address] 37339- 6825 July, Anxiety F41.9 and Chronic pain syndrome G89.4 [facility] [id number] [place] [address] 32498- 5756 July, [facility] [id number] [place] [address] 77499- 1945 Jun, Chronic pain syndrome G89.4 [facility] [id number] [place] [address] 07270- 9608 Jun, Chronic pain syndrome G89.4 [facility] [id number] [place] [address] 25237- 8087 Jun, [facility] [id number] [place] [address] 38463- 6606 Jun, Anxiety F41.9 [facility] [id number] [place] [address] 32505- 1576 Jun, Allergic rhinitis, unspecified allergic rhinitis trigger, unspecified rhinitis seasonality J30.9 [facility] [id number] [place] [address] 06913- 5943 Jun, [facility] [id number] [place] [address] 57921- 9620 May, Chronic pain syndrome G89.4 [facility] [id number] [place] [address] 71829- 4133 May, [facility] [id number] [place] [address] 70891- 3027 May, [facility] [id number] [place] [address] 62290- 4860 May, Anxiety F41.9 [facility] [id number] [place] [address] 76210- 2234 May, Type 2 diabetes mellitus with diabetic [...] Anxiety F41.9 and Chronic pain syndrome G89.4 [place] [id number] [place] [address] 10858- 3709 May, Essential hypertension I10 ; Type 2 diabetes mellitus with diabetic neuropathy, without long-term current use of insulin E11.40 ; Mixed hyperlipidemia E78.2 ; Chronic obstructive pulmonary disease, unspecified COPD type J44.9 and Chronic GERD K21.9 [place] [address] 27292- 8099 May, [place] [address] 22108- 6596 May, [place] [address] 85400- 9226 May, Type 2 diabetes mellitus with diabetic neuropathy, without long-term current use of insulin E11.40 [place] [id number] [place] [address] 23745- 2500 May, Dementia without behavioral disturbance, unspecified dementia type F03.90 [place] [id number] [place] [address] 23985- 0076 May, Type 2 diabetes mellitus with diabetic neuropathy, without long-term current use of insulin E11.40 ; Essential hypertension I10 ; Mixed hyperlipidemia E78.2 ; Chronic obstructive pulmonary disease, unspecified COPD type J44.9 ; Chronic GERD K21.9 and Osteoarthritis of both knees, unspecified osteoarthritis type M17.0 [place] [id number] [place] [address] 44351- 9033 May, [place] [id number] [place] [address] 92885- 9681 May, [place] [address] [place] [address]- 6703 May, Anxiety F41.9 and Unspecified symptoms and signs involving cognitive functions and awareness R41.9 [facility] [id number] [place] [address] 91901- 7357 May, [facility] [id number] [place] [address] 61799- 9441 May, Type 2 diabetes mellitus with diabetic neuropathy, without long-term current use of insulin E11.40 ; Anxiety F41.9 and Chronic obstructive pulmonary disease, unspecified COPD type J44.9 [place] [id number] [place] [address] 87037- 6918 May, [place] [id number] [place] [address] 72367- 4972 May, [place] [address] [address] [address] May, [facility] [id number] [place] [address] 40200- 2262 May, Chronic obstructive pulmonary disease, unspecified COPD type J44.9 [place] [id number] [place] [address] 19262- 0093 Mar, [place] [id number] [place] [address] 70551- 8645 Mar, Arthritis of both knees M19.90 [place] [id number] [place] [address] 36539- 2677 Mar, Type 2 diabetes mellitus with diabetic neuropathy, without long-term current use of insulin E11.40 [place] [id number] [place] [address] 04865- 2684 Mar, [place] [id number] [place] [address] 17451- 6586 Mar, Neck pain M54.2 and Weakness generalized R53.1 [place] [id number] [place] [address] 04 Mar, 2016 [facility] [id number] [place] [address] 83119- 0743 Mar, Cervicalgia M54.2 and Impacted cerumen of both ears H61.23 [facility] [id number] [place] [address] 12180- 4631 Mar, [facility] [address] 37672- 7766 Mar, Type 2 diabetes mellitus with diabetic neuropathy, without long-term current use of insulin E11.40 [facility] [address] 7[address]23- 3785 Feb, [facility] [id number] [place] [address] 14398- 5906 Feb, Hypoxia R09.02 [facility] [address] 43671- 7487 Feb, [facility] [id number] [place] [address] 76518- 0492 Feb, [facility] [id number] [place] [address] 22403- 0135 Feb, [facility] [id number] [place] [address] 84340- 1546 16 Feb, 2016 Type 2 diabetes mellitus with diabetic neuropathy, without long-term current use of insulin E11.40 [facility] [id number] [place] [address] 88687- 2415 15 Feb, 2016 Osteoarthritis of both knees, unspecified osteoarthritis type M17.0 [facility] [id number] [place] [address] 75967- 4287 14 Feb, 2016 [facility] [id number] [place] [address] 71356- 5016 12 Feb, 2016 [facility] [id number] [place] [address] 14344- 1773 Feb, [facility] [id number] [place] [address] 44812- 0089 Jan, [facility] [id number] [place] [address] 62086- 7282 Jan, [facility] [id number] [place] [address] 06025- 3483 Jan, [facility] [id number] [place] [address] 06289- 7590 Jan, [facility] [id number] [place] [address] 15317- 2217 Jan, Tinea pedis of both feet B35.3 [facility] [id number] [place] [address] 18234- 5301 Jan, Type 2 diabetes mellitus with diabetic [...] and Encounter for immunization Z23 [facility] [id number] [place] [address] 50534- 2345 Jan, [facility] [id number] [place] [address] 61711- 9441 Jan, [facility] [id number] [place] [address] 96830- 7109 Dec, [facility] [id number] [place] [address] 24268- 1716 Dec, [facility] [id number] [place] [address] 16239 -8061 Dec, Unspecified asthma with (acute) exacerbation J45.901 and Chronic obstructive pulmonary disease with (acute) exacerbation J44.1 [facility] [id number] [place] [address] 39078- 9051 Dec, Arthritis of both knees M19.90 and Acute medial meniscus tear, right, initial encounter S83.241A [facility] [id number] [place] [address] 99346- 9862 Dec, [facility] [id number] [place] [address] 32008- 3188 Dec, [facility] [id number] [place] [address] 74086- 3206 Dec, [facility] [id number] [place] [address] 08796- 4523 Dec, [facility] [id number] [place] [address] 19147- 6812 Dec, History of pneumonia Z87.01 [facility] [id number] [place] [address] 44131- 4796 Dec, [facility] [id number] [place] [address] 34356- 2406 Dec, [facility] [id number] [place] [address] 60654- 3409 Dec, [facility] [id number] [place] [address] 53910- 2866 Dec, [facility] [id number] [place] [address] 42639- 8464 Dec, [facility] [id number] [place] [address] 23135- 2696 Dec, [facility] [id number] [place] [address] 23253- 0408 30 Nov, 2015 Cough R05 and Pneumonia due to infectious organism, unspecified laterality, unspecified part of lung J18.9 [place] [id number] [facility] [id number] [place] [address] Nov, [place] [address] [facility] [id number] [address]- 8059 Nov, Type 2 diabetes mellitus with diabetic [...] allergic rhinitis trigger, unspecified rhinitis seasonality J30.9 [place] [address] [facility] [id number] [address] Nov, IMMUNIZATIONS No Known Immunizations SOCIAL HISTORY Never Assessed REASON FOR VISIT Controlled Med Refill 10/14/17 PLAN OF CARE VITAL SIGNS MEDICATIONS Medication Instructions Dosage Frequency Start Date End Date Duration Status Tramadol HCl 50 mg Orally every 12 hrs 1 tablet as needed 12h 28 days Active Clonazepam 1 MG Orally 3 times a day 1 tablet 8h 28 days Active Lyrica 100 mg Orally Three times a day 1 capsule 8h 28 days Active RESULTS No Results PROCEDURES No Known procedures INSTRUCTIONS MEDICATIONS ADMINISTERED No Known Medications MEDICAL (GENERAL) HISTORY Type Description Date Medical History hypertension Medical History chronic obstructive pulmonary disease (COPD)-wears 2L O2 per [place], uses [employer] for home O2 Medical History Arthritis-knees and [...] 12/2016 Hospitalization History Cough- [facility] [place] 04/10/2017 Hospitalization History [facility] - Possible Pneumonia 06/2017 Hospitalization History COPD hiatal hernia 08/2017
--- OUTSIDE RECORDS SUMMARY | 2018-01-05 15:57 | XMS REPORT ---
Author Author DARIN HARTLEY Organization [facility] Address [address] 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 Active [id number] Problem Nocturnal hypoxemia G47.34 Active 260831127 Problem Gastroesophageal reflux disease without esophagitis K21.9 Active 044316021 Problem Recurrent major depressive disorder, in partial 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 Active 69240889 Problem 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 Active 373192935 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 Active 9121389 Problem Hypoxia R09.02 Active 833652321 Problem Elevated transaminase level R74.0 Active 138519374 Problem 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 Active 741488052 Problem Essential hypertension I10 Active 04866728 Problem Anxiety F41.9 Active 07150622 Problem Chronic obstructive pulmonary disease, unspecified COPD type J44.9 Active 92836438 Problem Allergic rhinitis, unspecified allergic rhinitis trigger, unspecified rhinitis seasonality J30.9 Active 72632065 Problem Mixed hyperlipidemia E78.2 Active 929617401 Problem Type 2 diabetes mellitus with diabetic neuropathy, without long-term current use of insulin E11.40 Active 17203589 ALLERGIES No Information ENCOUNTERS Encounter Location Date Diagnosis [facility] [address] [facility] [id number] [address] Nov, [facility] [address] [facility] [id number] [address] Nov, Chronic obstructive pulmonary disease, unspecified COPD type J44.9 and Gastroesophageal reflux disease without esophagitis K21.9 [facility] [id number] [place] [address] 60265- 4337 Oct, [facility] [id number] [place] [address] 20915- 5018 Oct, [facility] [id number] [place] [address] 90268- 0981 Oct, Chronic pain syndrome G89.4 [facility] [id number] [place] [address] 79823- 9131 Oct, Community acquired bacterial pneumonia J15.9 ; Allergic rhinitis, unspecified allergic rhinitis trigger, unspecified rhinitis seasonality J30.9 ; Type 2 diabetes mellitus with diabetic neuropathy, without long-term current use of insulin E11.40 ; Chronic GERD K21.9 and Chronic obstructive pulmonary disease, unspecified COPD type J44.9 [place] [id number] [place] [address] 01866- 7205 Oct, [facility] [id number] [place] [address] 35489- 7976 Oct, [facility] [id number] [place] [address] 76526- 0354 Oct, [facility] [id number] [place] [address] 78250- 2726 Oct, [facility] [id number] [place] [address] 85871- 0248 Oct, Essential hypertension I10 [facility] [id number] [place] [address] 49018- 7570 Oct, Type 2 diabetes mellitus with diabetic neuropathy, without long-term current use of insulin E11.40 ; Chronic obstructive pulmonary disease , unspecified COPD type J44.9 ; Mixed hyperlipidemia E78.2 ; Osteoarthritis of both knees, unspecified osteoarthritis type M17.0 ; Alzheimers disease with early onset G30.0 and Essential hypertension I10 [facility] [address] [address] Oct, [facility] [id number] [place] [address] 15739- 6827 Oct, [facility] [id number] [place] [address] 27778- 3721 Oct, Yeast dermatitis B37.2 [facility] [id number] [place] [address] 98158- 0051 Oct, Chronic pain syndrome G89.4 [facility] [id number] [place] [address] 60552- 7998 Sep, [facility] [id number] [place] [address] 26296- 2441 Sep, [facility] [id number] [place] [address] 09753- 2098 Sep, Alzheimers disease with early onset G30.0 and Chronic pain syndrome G89.4 [facility] [address], [place] [address] 5794 Sep, COPD with acute exacerbation J44.1 [facility] [id number] [place] [address] 05479- 6929 Sep, [facility] [id number] [place] [address] 43803- 3237 Sep, [facility] [id number] [place] [address] 68523- 5372 Sep, Gastroesophageal reflux disease without esophagitis K21.9 [facility] [address], [place] [address] 5082 Aug, [facility] [id number] [place] [address] 11876- 4647 Aug, [facility] [address], [place] [address] 0507 Aug, 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 ; Hospital discharge follow-up Z09 ; Chronic obstructive pulmonary disease, unspecified COPD type J44.9 and Chronic GERD K21.9 [place] [id number] [place] [address] 38460- 1893 Aug, Chronic pain syndrome G89.4 [facility] [id number] [place] [address] 86238- 9762 Aug, [facility] [id number] [place] [address] 61744- 5949 Aug, [place] [id number] [place] [address] 68255- 3940 Aug, Chronic pain syndrome G89.4 and Alzheimers disease with early onset G30.0 [place] [id number] [place] [address] 85061- 0921 18 Aug, 2017 Type 2 diabetes mellitus with diabetic neuropathy, without long-term current use of insulin E11.40 ; Chronic obstructive pulmonary disease , unspecified COPD type J44.9 ; Chronic GERD K21.9 and 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 [place] [id number] [place] [address] 62525- 8522 Aug, [place] [id number] [place] [address] 59889- 7446 Aug, Essential hypertension I10 and Cough R05 [place] [id number] [place] [address] 15236- 3574 Aug, [facility] [id number] [place] [address] 41222- 9415 Aug, [place] [id number] [place] [address] 51711- 3754 07 Aug, 2017 [facility] [id number] [place] [address] 90580- 3110 06 Aug, 2017 Chronic pain syndrome G89.4 [place] [id number] [place] [address] 32326- 4820 Aug, [place] [id number] [place] [address] 07944- 4880 Aug, [facility] [id number] [place] [address] 29132- 8054 July, Gastroesophageal reflux disease without esophagitis K21.9 [facility] [id number] [place] [address] 81556- 0110 July, [facility] [id number] [place] [address] 28876- 5453 July, [facility] [id number] [place] [address] 38846- 9663 July, [place] [id number] [place] [address] 79270- 8290 July, Essential hypertension I10 and Chronic pain syndrome G89.4 [place] [address] 21101- 7877 July, Gastroesophageal reflux disease without esophagitis K21.9 [place] [id number] [place] [address] 13853- 2664 July, Alzheimers disease with early onset G30.0 [place] [id number] [place] [address] 30853- 7051 July, Chronic obstructive pulmonary disease, unspecified COPD type J44.9 ; Nocturnal cough R05 ; 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 and Recurrent major depressive disorder, in partial 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 [place] [id number] [place] [address] 56314- 7931 July, [place] [id number] [place] [address] 87713- 1664 July, Type 2 diabetes mellitus with diabetic neuropathy, without long-term current use of insulin E11.40 [place] [id number] [place] [address] 45046- 0218 July, Nocturnal hypoxemia G47.34 ; Chronic obstructive pulmonary disease, unspecified COPD type J44.9 and Nocturnal cough R05 [facility] [id number] [place] [address] 58258- 5560 July, [facility] [id number] [place] [address] 60380- 8618 July, [facility] [id number] [place] [address] 62849- 2678 July, [facility] [id number] [place] [address] 20330- 9059 Jun, Chronic pain syndrome G89.4 [facility] [id number] [place] [address] 91951- 6256 Jun, [facility] [id number] [place] [address] 66583- 5827 Jun, [facility] [address] 36241- 1822 Jun, Alzheimers disease with early onset G30.0 [facility] [id number] [place] [address] 95817- 4027 Jun, [facility] [id number] [place] [address] 89649- 2415 Jun, Gastroesophageal reflux disease without esophagitis K21.9 [facility] [id number] [place] [address] 96240- 7780 Jun, Allergic rhinitis, unspecified allergic rhinitis trigger, unspecified rhinitis seasonality J30.9 [facility] [id number] [place] [address] 41153- 2939 Jun, Chronic pain syndrome G89.4 [facility] [id number] [place] [address] 46896- 4104 May, [facility] [id number] [place] [address] 62568- 3007 May, COPD with acute exacerbation J44.1 [facility] [address] [place] [address]- 1115 14 May, 2017 Type 2 diabetes mellitus with diabetic neuropathy, without long-term current use of insulin E11.40 ; COPD with acute exacerbation J44.1 ; Hypoxia R09.02 ; Chronic pain syndrome G89.4 ; Yeast dermatitis B37.2 ; Alzheimers disease with early onset G30.0 and 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 [facility] [address] 94040- 2302 May, [facility] [address] 28477- 5070 May, Chronic pain syndrome G89.4 [facility] [address] 36177- 5134 May, [facility] [address] 72020- 6778 May, [facility] [address] 34817- 1851 May, Mixed hyperlipidemia E78.2 [facility] [address] 04640- 6866 15 May, 2017 Chronic pain syndrome G89.4 [facility] [id number] [place] [address] 39016- 6666 May, Anxiety F41.9 and Chronic pain syndrome G89.4 [facility] [id number] [place] [address] 66644- 8730 Mar, [facility] [id number] [place] [address] 47327- 2310 Mar, [facility] [address] 26804- 5681 Mar, [facility] [id number] [place] [address] 22283- 9446 Mar, [facility] [address] 93217- 0089 Mar, [facility] [id number] [place] [address] 58462- 7679 Mar, Anxiety F41.9 and Chronic pain syndrome G89.4 [facility] [id number] [place] [address] 67605- 7639 Mar, Medicare annual wellness visit, initial Z00.00 [...] Hiatal hernia K44.9 and Actinic keratosis L57.0 [facility] [id number] [place] [address] 47882- 9724 Mar, [facility] [id number] [place] [address] 15368- 5318 Mar, Chronic pain syndrome G89.4 [facility] [id number] [place] [address] 15247- 9080 Feb, [facility] [id number] [place] [address] 51032- 6730 Feb, Chronic pain syndrome G89.4 [facility] [id number] [place] [address] 92890- 9825 Feb, [facility] [id number] [place] [address] 98820- 9213 Feb, [facility] [id number] [place] [address] 31530- 2529 Feb, Anxiety F41.9 [facility] [id number] [place] [address] 49521- 8901 Feb, [facility] [id number] [place] [address] 52191- 1676 Feb, Chronic pain syndrome G89.4 [facility] [id number] [place] [address] 98063- 2807 Jan, Essential hypertension I10 [facility] [id number] [place] [address] 85547- 3487 Jan, Chronic pain syndrome G89.4 [facility] [id number] [place] [address] 45010- 7667 Jan, [facility] [id number] [place] [address] 87780- 3557 Jan, Anxiety F41.9 [facility] [id number] [place] [address] 19269- 5847 Jan, Encounter for immunization Z23 and Community acquired pneumonia, unspecified laterality J18.9 [facility] [id number] [place] [address] 13395- 5620 Jan, Type 2 diabetes mellitus with diabetic neuropathy, without long-term current use of insulin E11.40 [facility] [id number] [place] [address] 81941- 2968 Dec, Anxiety F41.9 and Chronic pain syndrome G89.4 [facility] [id number] [place] [address] 90232- 8766 Dec, Chronic pain syndrome G89.4 and Essential hypertension I10 [facility] [id number] [place] [address] 32050- 3287 Dec, [facility] [id number] [place] [address] 58869- 8227 Dec, Anxiety F41.9 [facility] [id number] [place] [address] 09497- 8341 Dec, [facility] [address] [place] [address]- 9986 Dec, Type 2 diabetes mellitus with diabetic neuropathy, without long-term current use of insulin E11.40 ; Lactic acidosis E87.2 ; Chronic obstructive pulmonary disease, unspecified COPD type J44.9 and Encounter for immunization Z23 [facility] [id number] [address]- 1824 Dec, Chronic pain syndrome G89.4 [facility] [id number] [place] [address] 86065- 2417 Nov, [facility] [id number] [place] [address] 35292- 0149 Nov, Chronic pain syndrome G89.4 [facility] [id number] [place] [address] 27533 2546 Nov, [facility] [id number] [place] [address] 49737- 2039 Nov, [facility] [id number] [place] [address] 13909- 2547 Nov, Anxiety F41.9 [facility] [id number] [place] [address] 55186 2546 Nov, Anxiety F41.9 [facility] [address], [place] [address] 2549 Nov, [facility] [id number] [place] [address] 51300 254 Nov, [facility] [id number] [place] [address] 27659 2545 Nov, [facility] [id number] [place] [address] 82851- 3671 Oct, [facility] [address], [place] [address]- 3569 Oct, [facility] [id number] [place] [address] 16782- 3727 Oct, [facility] [address], [place] [address]- 4757 Oct, Essential hypertension I10 and Chronic pain syndrome G89.4 [facility] [id number] [place] [address] 93436- 4028 Oct, Anxiety F41.9 [facility] [id number] [place] [address] 89493- 0820 Oct, [facility] [id number] [place] [address] 23425- 1576 Oct, Chronic pain syndrome G89.4 [facility] [id number] [place] [address] 24529 -9717 Oct, Sore throat J02.9 and Acute nasopharyngitis (common cold) J00 [facility] [id number] [place] [address] 36406- 6278 Sep, [facility] [id number] [place] [address] 88341- 8960 Sep, COPD exacerbation J44.1 [facility] [id number] [place] [address] 37661- 6764 Sep, Chronic pain syndrome G89.4 [facility] [id number] [place] [address] 70562- 5328 Sep, Essential hypertension I10 [facility] [id number] [place] [address] 34778- 5108 Sep, [facility] [id number] [place] [address] 28463- 0690 Sep, [facility] [id number] [place] [address] 12500- 8949 Sep, Anxiety F41.9 [facility] [id number] [place] [address] 32744- 8077 Sep, Chronic pain syndrome G89.4 [facility] [id number] [place] [address] 12013- 3100 Sep, [facility] [id number] [place] [address] 83917- 5990 Aug, Acute seasonal allergic rhinitis, unspecified trigger J30.2 ; Hiatal hernia K44.9 and Chronic pain syndrome G89.4 [facility] [id number] [place] [address] 92109- 5434 Aug, [facility] [id number] [place] [address] 77619- 6407 Aug, [facility] [address] 96818- 2142 Aug, Chronic obstructive pulmonary disease, unspecified COPD type J44.9 [facility] [id number] [place] [address] 38844- 8513 Aug, Anxiety F41.9 [facility] [id number] [place] [address] 87733- 4731 Aug, Chronic pain syndrome G89.4 [facility] [id number] [place] [address] 56537- 0594 Aug, Hiatal hernia K44.9 and Actinic keratosis L57.0 [facility] [id number] [place] [address] 84987- 3297 Aug, [facility] [id number] [place] [address] 81539- 8068 Aug, Anxiety F41.9 [facility] [id number] [place] [address] 06013- 3125 July, [facility] [id number] [place] [address] 15077- 7144 July, Hiatal hernia K44.9 [facility] [id number] [place] [address] 65965- 2874 July, [facility] [id number] [place] [address] 94886- 3170 July, Anxiety F41.9 and Chronic pain syndrome G89.4 [facility] [id number] [place] [address] 99917- 4896 July, [facility] [id number] [place] [address] 31790- 4774 Jun, Chronic pain syndrome G89.4 [facility] [id number] [place] [address] 29909- 4657 Jun, Chronic pain syndrome G89.4 [facility] [id number] [place] [address] 55859- 0605 Jun, [facility] [id number] [place] [address] 82226- 2844 Jun, Anxiety F41.9 [facility] [id number] [place] [address] 38128- 9281 Jun, Allergic rhinitis, unspecified allergic rhinitis trigger, unspecified rhinitis seasonality J30.9 [facility] [id number] [place] [address] 68315- 5217 Jun, [facility] [id number] [place] [address] 17374- 3497 May, Chronic pain syndrome G89.4 [facility] [id number] [place] [address] 65139- 8220 May, [facility] [id number] [place] [address] 68539- 1961 May, [facility] [id number] [place] [address] 38174- 4072 May, Anxiety F41.9 [facility] [id number] [place] [address] 12944- 6959 May, Type 2 diabetes mellitus with diabetic [...] Anxiety F41.9 and Chronic pain syndrome G89.4 [facility] [id number] [place] [address] 20585- 1660 May, Essential hypertension I10 ; Type 2 diabetes mellitus with diabetic neuropathy, without long-term current use of insulin E11.40 ; Mixed hyperlipidemia E78.2 ; Chronic obstructive pulmonary disease, unspecified COPD type J44.9 and Chronic GERD K21.9 [place] [address] 88973- 3337 May, [place] [address] 71391- 7034 May, [place] [address] 22449- 9775 May, Type 2 diabetes mellitus with diabetic neuropathy, without long-term current use of insulin E11.40 [facility] [id number] [place] [address] 74836- 9980 May, Dementia without behavioral disturbance, unspecified dementia type F03.90 [facility] [id number] [place] [address] 93741- 5044 May, Type 2 diabetes mellitus with diabetic neuropathy, without long-term current use of insulin E11.40 ; Essential hypertension I10 ; Mixed hyperlipidemia E78.2 ; Chronic obstructive pulmonary disease, unspecified COPD type J44.9 ; Chronic GERD K21.9 and Osteoarthritis of both knees, unspecified osteoarthritis type M17.0 [facility] [id number] [place] [address] 56782- 7448 May, [facility] [facility] [id number] [place] [address] 15906- 8562 May, [facility] [address] [place] [address] 9879 May, Anxiety F41.9 and Unspecified symptoms and signs involving cognitive functions and awareness R41.9 [facility] [id number] [place] [address] 47723- 2402 May, [facility] [id number] [place] [address] 72861- 6907 May, Type 2 diabetes mellitus with diabetic neuropathy, without long-term current use of insulin E11.40 ; Anxiety F41.9 and Chronic obstructive pulmonary disease, unspecified COPD type J44.9 [place] [id number] [place] [address] 97453- 3735 May, [facility] [id number] [place] [address] 75613- 4428 May, [facility] [facility] [address] 58695- 0111 May, [facility] [id number] [place] [address] 64483- 4634 May, Chronic obstructive pulmonary disease, unspecified COPD type J44.9 [facility] [place] [id number] [place] [address] 94270- 9815 Mar, [facility] [id number] [place] [address] 36816- 0448 Mar, Arthritis of both knees M19.90 [facility] [id number] [place] [address] 26677- 1095 Mar, Type 2 diabetes mellitus with diabetic neuropathy, without long-term current use of insulin E11.40 [facility] [id number] [place] [address] 34456- 0751 Mar, [facility] [id number] [place] [address] 79301- 1856 Mar, Neck pain M54.2 and Weakness generalized R53.1 [place] [id number] [place] [address] 04 Mar, 2016 [facility] [id number] [place] [address] 16506- 5037 Mar, Cervicalgia M54.2 and Impacted cerumen of both ears H61.23 [facility] [id number] [place] [address] 66068- 3857 Mar, [facility] [address] 57666- 2900 Mar, Type 2 diabetes mellitus with diabetic neuropathy, without long-term current use of insulin E11.40 [facility] [address] 32022- 7102 Feb, [facility] [id number] [place] [address] 80051- 8667 Feb, Hypoxia R09.02 [facility] [address] 01218- 7098 Feb, [facility] [id number] [place] [address] 87581- 0981 Feb, [facility] [id number] [place] [address] 74226- 5119 Feb, [facility] [id number] [place] [address] 93120- 9896 16 Feb, 2016 Type 2 diabetes mellitus with diabetic neuropathy, without long-term current use of insulin E11.40 [facility] [id number] [place] [address] 84732- 6074 15 Feb, 2016 Osteoarthritis of both knees, unspecified osteoarthritis type M17.0 [facility] [id number] [place] [address] 97235- 2352 14 Feb, 2016 [facility] [id number] [place] [address] 87101- 4096 12 Feb, 2016 [facility] [id number] [place] [address] 32780- 4451 Feb, [facility] [id number] [place] [address] 26072- 9227 Jan, [facility] [id number] [place] [address] 15982- 2779 Jan, [facility] [id number] [place] [address] 03914- 3698 Jan, [facility] [id number] [place] [address] 90846- 8897 Jan, [facility] [id number] [place] [address] 27609- 5217 Jan, Tinea pedis of both feet B35.3 [facility] [id number] [place] [address] 06292- 7743 Jan, Type 2 diabetes mellitus with diabetic [...] seasonality J30.9 and Encounter for immunization Z23 [facility] [id number] [place] [address] 20913- 9874 Jan, [facility] [id number] [place] [address] 45863- 4175 Jan, [facility] [id number] [place] [address] 20773- 3606 Dec, [facility] [id number] [place] [address] 27712- 6197 Dec, [facility] [id number] [place] [address] 42784 -5975 Dec, Unspecified asthma with (acute) exacerbation J45.901 and Chronic obstructive pulmonary disease with (acute) exacerbation J44.1 [facility] [id number] [place] [address] 75799- 4298 Dec, Arthritis of both knees M19.90 and Acute medial meniscus tear, right, initial encounter S83.241A [facility] [id number] [place] [address] 58349- 1086 Dec, [facility] [id number] [place] [address] 82709- 8041 Dec, [facility] [id number] [place] [address] 02301- 2823 Dec, [facility] [id number] [place] [address] 39728- 7041 Dec, [facility] [id number] [place] [address] 08480- 6359 Dec, History of pneumonia Z87.01 [facility] [id number] [place] [address] 72666- 4595 Dec, [facility] [id number] [place] [address] 70871- 8986 Dec, [facility] [id number] [place] [address] 92077- 2320 Dec, [facility] [id number] [place] [address] 62533- 1767 Dec, [facility] [id number] [place] [address] 64018- 2587 Dec, [facility] [id number] [place] [address] 25957- 7035 Dec, [facility] [id number] [place] [address] 85627- 5715 30 Nov, 2015 Cough R05 and Pneumonia due to infectious organism, unspecified laterality, unspecified part of lung J18.9 [facility] [address] [facility] [id number] [place] [address]- 2851 Nov, [place] [address] [facility] [id number] [address]65 Nov, Type 2 diabetes mellitus with diabetic [...] allergic rhinitis trigger, unspecified rhinitis seasonality J30.9 [place] [address] [facility] [id number] [address] 0994 Nov, IMMUNIZATIONS No Known Immunizations SOCIAL HISTORY Never Assessed REASON FOR VISIT Medication question PLAN OF CARE VITAL SIGNS MEDICATIONS Medication Instructions Dosage Frequency Start Date End Date Duration Status Ipratropium-Albuterol 0.5-2.5 (3) MG/3ML Inhalation every 4 hrs 3 ml 4h 13 Sep, 2017 10 days Active RESULTS No Results PROCEDURES No Known procedures INSTRUCTIONS MEDICATIONS ADMINISTERED No Known Medications MEDICAL (GENERAL) HISTORY Type Description Date Medical History hypertension Medical History chronic obstructive pulmonary disease (COPD)-wears 2L O2 per [place], uses [place] for home O2 Medical History [...] Attending 12/2016 Hospitalization History Cough- [facility] 04/10/2017 [facility] Possible Pneumonia 06/2017 Hospitalization History COPD hiatal hernia 08/2017
--- OUTSIDE RECORDS SUMMARY | 2018-01-05 15:58 | XMS REPORT ---
Author Author DARIN HARTLEY Organization [facility] Address [address] [place] [address] Care Team Providers Care Parts Interpreter Name Role Phone DARIN HARTLEY Unavailable PROBLEMS Type Condition ICD9-CM Code [id number] Code Onset Dates Condition Status SNOMED Code Problem Osteoarthritis of both knees, unspecified osteoarthritis type M17.0 Active 130111610 Problem Chronic GERD K21.9 Active 212290524 Problem Chronic pain syndrome G89.4 Active 077059295 Problem 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 Active 470540597 Problem 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 Active 668542906112788 Problem Nocturnal hypoxemia G47.34 Active 821457992 Problem Gastroesophageal reflux disease without esophagitis K21.9 Active 274972889 Problem Recurrent major depressive disorder, in partial 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 Active 01423320 Problem 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 Active 245434350 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 Active 8016129 Problem Hypoxia R09.02 Active 495764458 Problem Elevated transaminase level R74.0 Active 288464865 Problem 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 Active 685654852 Problem Essential hypertension I10 Active 47192832 Problem Anxiety F41.9 Active 18115039 Problem Chronic obstructive pulmonary disease, unspecified COPD type J44.9 Active 74509914 Problem Allergic rhinitis, unspecified allergic rhinitis trigger, unspecified rhinitis seasonality J30.9 Active 67744739 Problem Mixed hyperlipidemia E78.2 Active 256305796 Problem Type 2 diabetes mellitus with diabetic neuropathy, without long-term current use of insulin E11.40 Active 97328591 ALLERGIES No Information ENCOUNTERS Encounter Location Date Diagnosis [facility] [address] [facility] [id number] [address] 12[address] Oct, [facility] [address] [facility] [id number], [place] [address] 4566 Oct, [facility] [id number] [place] [address] 45704- 7903 Oct, Chronic pain syndrome G89.4 [facility] [id number] [place] [address] 26383- 0457 Oct, Community acquired bacterial pneumonia J15.9 ; Allergic rhinitis, unspecified allergic rhinitis trigger, unspecified rhinitis seasonality J30.9 ; Type 2 diabetes mellitus with diabetic neuropathy, without long-term current use of insulin E11.40 ; Chronic GERD K21.9 and Chronic obstructive pulmonary disease, unspecified COPD type J44.9 [facility] [id number] [place] [address] 74116- 0600 Oct, [facility] [id number] [place] [address] 46715- 3578 Oct, [facility] [id number] [place] [address] 45320- 4717 Oct, [facility] [id number] [place] [address] 31436- 2220 Oct, [facility] [id number] [place] [address] 98146- 9585 Oct, Essential hypertension I10 [facility] [id number] [place] [address] 20622- 3013 Oct, Type 2 diabetes mellitus with diabetic neuropathy, without long-term current use of insulin E11.40 ; Chronic obstructive pulmonary disease , unspecified COPD type J44.9 ; Mixed hyperlipidemia E78.2 ; Osteoarthritis of both knees, unspecified osteoarthritis type M17.0 ; Alzheimers disease with early onset G30.0 and Essential hypertension I10 [facility] [id number] [place] [address] 31420- 0185 Oct, [facility] [id number] [place] [address] 24656- 5756 Oct, [facility] [id number] [place] [address] 97166- 4085 Oct, Yeast dermatitis B37.2 [facility] [address] [place] [address] 44411- 4518 Oct, Chronic pain syndrome G89.4 [facility] [id number] [place] [address] 00488- 0307 Sep, [facility] [id number] [place] [address] 04303- 6780 Sep, [facility] [id number] [place] [address] 41908- 9199 Sep, Alzheimers disease with early onset G30.0 and Chronic pain syndrome G89.4 [facility] [id number] [place] [address] 15438- 8051 Sep, COPD with acute exacerbation J44.1 [facility] [id number] [place] [address] 80622- 4703 Sep, [facility] [id number] [place] [address] 71750- 0756 Sep, [facility] [id number] [place] [address] 32420- 6391 Sep, Gastroesophageal reflux disease without esophagitis K21.9 [facility] [id number] [place] [address] 26420- 4697 Aug, [facility] [id number] [place] [address] 25301- 3286 Aug, [facility] [id number] [place] [address] 59138- 3599 Aug, 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 ; Hospital discharge follow-up Z09 ; Chronic obstructive pulmonary disease, unspecified COPD type J44.9 and Chronic GERD K21.9 [facility] [address], [place] [address] 5681 Aug, Chronic pain syndrome G89.4 [facility] [id number] [place] [address] 06567- 6533 Aug, [facility] [id number] [place] [address] 58592- 3003 Aug, [facility] [id number] [place] [address] 46688- 4891 Aug, Chronic pain syndrome G89.4 and Alzheimers disease with early onset G30.0 [facility] [address] 63048- 2775 Aug, Type 2 diabetes mellitus with diabetic neuropathy, without long-term current use of insulin E11.40 ; Chronic obstructive pulmonary disease , unspecified COPD type J44.9 ; Chronic GERD K21.9 and 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 [facility] [id number] [place] [address] 38536- 1080 Aug, [facility] [address] 93706- 2533 Aug, Essential hypertension I10 and Cough R05 [facility] [id number] [place] [address] 52119- 1463 Aug, [facility] [id number] [place] [address] 18564- 5339 Aug, [facility] [id number] [place] [address] 93979- 4649 Aug, [facility] [id number] [place] [address] 26448- 6920 Aug, Chronic pain syndrome G89.4 [facility] [id number] [place] [address] 77967- 1697 Aug, [facility] [id number] [place] [address] 54812- 3376 Aug, [facility] [id number] [place] [address] 02650- 1721 July, Gastroesophageal reflux disease without esophagitis K21.9 [facility] [address] [place], [place] [address] 2520 July, [facility] [id number] [place] [address] 53864- 2437 July, [facility] [id number] [place] [address] 90840- 1359 July, [facility] [id number] [place] [address] 94741- 5888 July, Essential hypertension I10 and Chronic pain syndrome G89.4 [facility] [id number] [place] [address] 41888- 7267 July, Gastroesophageal reflux disease without esophagitis K21.9 [facility] [id number] [place] [address] 70144- 6866 July, Alzheimers disease with early onset G30.0 [facility] [address] 32767- 0086 July, Chronic obstructive pulmonary disease, unspecified COPD type J44.9 ; Nocturnal cough R05 ; 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 and Recurrent major depressive disorder, in partial 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 [facility] [id number] [place] [address] 74368- 1317 July, [facility] [id number] [place] [address] 61062- 2227 July, Type 2 diabetes mellitus with diabetic neuropathy, without long-term current use of insulin E11.40 [facility] [id number] [place] [address] 06163- 0460 July, Nocturnal hypoxemia G47.34 ; Chronic obstructive pulmonary disease, unspecified COPD type J44.9 and Nocturnal cough R05 [facility] [id number] [place] [address] 21875- 6662 July, [facility] [id number] [place] [address] 80166- 0488 July, [facility] [address] [place] [address]- 6291 July, [facility] [id number] [place] [address] 33017- 8989 Jun, Chronic pain syndrome G89.4 [facility] [id number] [place] [address] 53146- 0876 Jun, [facility] [address] 54376- 7442 Jun, [facility] [id number] [place] [address] 34972- 2570 Jun, Alzheimers disease with early onset G30.0 [facility] [address] 33432- 5653 Jun, [facility] [id number] [place] [address] 18674- 9584 Jun, Gastroesophageal reflux disease without esophagitis K21.9 [facility] [id number] [place] [address] 23996- 5043 Jun, Allergic rhinitis, unspecified allergic rhinitis trigger, unspecified rhinitis seasonality J30.9 [facility] [id number] [place] [address] 98652- 2013 Jun, Chronic pain syndrome G89.4 [facility] [id number] [place] [address] 18448- 9969 May, [facility] [id number] [place] [address] 35682- 7442 May, COPD with acute exacerbation J44.1 [facility] [id number] [place] [address] 37386- 1387 14 May, 2017 Type 2 diabetes mellitus with diabetic neuropathy, without long-term current use of insulin E11.40 ; COPD with acute exacerbation J44.1 ; Hypoxia R09.02 ; Chronic pain syndrome G89.4 ; Yeast dermatitis B37.2 ; Alzheimers disease with early onset G30.0 and 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 [facility] [address], [place] [address]- 7722 May, [facility] [id number] [place] [address] 44347 2546 May, Chronic pain syndrome G89.4 [facility] [id number] [place] [address] 20449 2546 May, [facility] [id number] [place] [address] 50158 2546 May, [facility] [id number] [place] [address] 69317- 0106 May, Mixed hyperlipidemia E78.2 [facility] [id number] [place] [address] 93667- 1096 May, Chronic pain syndrome G89.4 [facility] [id number] [place] [address] 29606- 6621 May, Anxiety F41.9 and Chronic pain syndrome G89.4 [facility] [address] [place] [address] 86473- 8554 Mar, [facility] [id number] [place] [address] 01457- 0190 Mar, [facility] [address], [place] [address]- 2940 Mar, [facility] [address], [place] [address] 2540 Mar, [facility] [address] [place] [address] 96684- 7996 Mar, [facility] [address] [place] [address] 92170- 2540 Mar, Anxiety F41.9 and Chronic pain syndrome G89.4 [facility] [address], [place] [address]- 7937 Mar, Medicare annual wellness visit, initial Z00.00 [...] Hiatal hernia K44.9 and Actinic keratosis L57.0 [facility] [address] 37508- 1416 Mar, [facility] [address] 57887- 2851 Mar, Chronic pain syndrome G89.4 [place] [facility] [address] 55733- 0848 Feb, [facility] [address] 75832- 6024 Feb, Chronic pain syndrome G89.4 [facility] [address] 62636- 5405 Feb, [facility] [id number] [place] [address] 74556- 9810 Feb, [facility] [address] 07737- 0886 Feb, Anxiety F41.9 [facility] [address] 95884- 8952 Feb, [facility] [facility] [address] 01466- 0470 Feb, Chronic pain syndrome G89.4 [facility] [id number] [place] [address] 54182- 7626 Jan, Essential hypertension I10 [facility] [id number] [place] [address] 51458- 2942 Jan, Chronic pain syndrome G89.4 [facility] [address] 90746- 4008 Jan, [facility] [address] 29186- 0504 Jan, Anxiety F41.9 [facility] [address] 10221- 1285 Jan, Encounter for immunization Z23 and Community acquired pneumonia, unspecified laterality J18.9 [facility] [address] 57200- 1316 Jan, Type 2 diabetes mellitus with diabetic neuropathy, without long-term current use of insulin E11.40 [facility] [address] 57293- 0987 Dec, Anxiety F41.9 and Chronic pain syndrome G89.4 [facility] [address] 00575- 9364 Dec, Chronic pain syndrome G89.4 and Essential hypertension I10 [facility] [id number] [place] [address] 61964- 0722 Dec, [facility] [id number] [place] [address] 66881- 5848 Dec, Anxiety F41.9 [facility] [id number] [place] [address] 44949- 2892 Dec, [facility] [id number] [place] [address] 23962- 7342 Dec, Type 2 diabetes mellitus with diabetic neuropathy, without long-term current use of insulin E11.40 ; Lactic acidosis E87.2 ; Chronic obstructive pulmonary disease, unspecified COPD type J44.9 and Encounter for immunization Z23 [facility] [facility] [address] 22295- 5908 Dec, Chronic pain syndrome G89.4 [facility] [id number] [place] [address] 37919- 1889 28 Nov, 2016 [facility] [id number] [place] [address] 68914- 3639 Nov, Chronic pain syndrome G89.4 [facility] [id number] [place] [address] 44449- 2940 Nov, [facility] [id number] [place] [address] 02718- 3847 Nov, [facility] [id number] [place] [address] 21042- 0663 15 Nov, 2016 Anxiety F41.9 [facility] [id number] [place] [address] 74676- 8971 11 Nov, 2016 Anxiety F41.9 [facility] [id number] [place] [address] 00854- 2548 08 Nov, 2016 [facility] [id number] [place] [address] 63086- 8256 05 Nov, 2016 [facility] [id number] [place] [address] 55364- 7144 Nov, [facility] [id number] [place] [address] 16206- 6490 Oct, [facility] [id number] [place] [address] 90271- 7491 Oct, [facility] [id number] [place] [address] 91045- 0642 Oct, [facility] [id number] [place] [address] 87029- 9300 Oct, Essential hypertension I10 and Chronic pain syndrome G89.4 [facility] [address] [place] [address] 28134- 6475 Oct, Anxiety F41.9 [facility] [address], [place] [address]- 5289 Oct, [facility] [id number] [place] [address] 27353- 9296 Oct, Chronic pain syndrome G89.4 [facility] [id number] [place] [address] 94391 -9611 Oct, Sore throat J02.9 and Acute nasopharyngitis (common cold) J00 [facility] [id number] [place] [address] 61866- 3644 Sep, [facility] [id number] [place] [address] 90937- 4301 Sep, COPD exacerbation J44.1 [facility] [id number] [place] [address] 98034- 0234 Sep, Chronic pain syndrome G89.4 [facility] [id number] [place] [address] 09226- 0508 Sep, Essential hypertension I10 [facility] [id number] [place] [address] 09741- 7088 Sep, [facility] [id number] [place] [address] 18092- 4502 Sep, [facility] [id number] [place] [address] 13636- 7316 Sep, Anxiety F41.9 [facility] [id number] [place] [address] 46679- 0231 Sep, Chronic pain syndrome G89.4 [facility] [id number] [place] [address] 98719- 1060 Sep, [facility] [id number] [place] [address] 96704- 9455 Aug, Acute seasonal allergic rhinitis, unspecified trigger J30.2 ; Hiatal hernia K44.9 and Chronic pain syndrome G89.4 [facility] [address], [place] [address]- 6514 Aug, [facility] [id number] [place] [address] 07552- 4927 Aug, [facility] [id number] [place] [address] 01001- 6977 Aug, Chronic obstructive pulmonary disease, unspecified COPD type J44.9 [facility] [id number] [place] [address] 60053- 5233 14 Aug, 2016 Anxiety F41.9 [facility] [id number] [place] [address] 58473- 4925 08 Aug, 2016 Chronic pain syndrome G89.4 [facility] [id number] [place] [address] 91653- 7846 07 Aug, 2016 Hiatal hernia K44.9 and Actinic keratosis L57.0 [facility] [id number] [place] [address] 91915- 1112 Aug, [facility] [id number] [place] [address] 11661- 6628 Aug, Anxiety F41.9 [facility] [id number] [place] [address] 34042- 0725 July, [facility] [address] [place] [address] 06694- 4328 July, Hiatal hernia K44.9 [facility] [address] [place] [address] 36845- 6966 July, [facility] [id number] [place] [address] 92165- 1242 July, Anxiety F41.9 and Chronic pain syndrome G89.4 [facility] [address] [place] [address] 03665- 5324 July, [facility] [id number] [place] [address] 39294- 3454 Jun, Chronic pain syndrome G89.4 [facility] [id number] [place] [address] 80175- 3363 Jun, Chronic pain syndrome G89.4 [facility] [id number] [place] [address] 16800- 0694 Jun, [facility] [id number] [place] [address] 31050- 8404 Jun, Anxiety F41.9 [facility] [id number] [place] [address] 25933- 9854 Jun, Allergic rhinitis, unspecified allergic rhinitis trigger, unspecified rhinitis seasonality J30.9 [facility] [id number] [place] [address] 81095- 7827 Jun, [facility] [id number] [place] [address] 37599- 4422 May, Chronic pain syndrome G89.4 [facility] [id number] [place] [address] 24906- 7018 May, [facility] [id number] [place] [address] 29852- 3013 May, [facility] [id number] [place] [address] 12941- 5119 May, Anxiety F41.9 [facility] [id number] [place] [address] 10953- 9491 May, Type 2 diabetes mellitus with diabetic [...] syndrome G89.4 [facility] [id number] [place] [address] 56574- 2965 May, Essential hypertension I10 ; Type 2 diabetes mellitus with diabetic neuropathy, without long-term current use of insulin E11.40 ; Mixed hyperlipidemia E78.2 ; Chronic obstructive pulmonary disease, unspecified COPD type J44.9 and Chronic GERD K21.9 [facility] [facility] [id number] [place] [address] 76473- 8721 May, [place] [address] 78197- 3694 May, [facility] [id number] [place] [address] 70208- 6687 May, Type 2 diabetes mellitus with diabetic neuropathy, without long-term current use of insulin E11.40 [facility] [id number] [place] [address] 28291- 1917 May, Dementia without behavioral disturbance, unspecified dementia type F03.90 [facility] [address] [id number] [place] [address] 18100- 4277 May, Type 2 diabetes mellitus with diabetic neuropathy, without long-term current use of insulin E11.40 ; Essential hypertension I10 ; Mixed hyperlipidemia E78.2 ; Chronic obstructive pulmonary disease, unspecified COPD type J44.9 ; Chronic GERD K21.9 and Osteoarthritis of both knees, unspecified osteoarthritis type M17.0 [place] [address] [place] [id number] [place] [address] 85333- 0965 May, [place] [address] [place] [id number] [place] [address] 42508- 9889 May, [place] [address] [place] [id number] [place] [address] 57925- 0215 May, Anxiety F41.9 and Unspecified symptoms and signs involving cognitive functions and awareness R41.9 [place] [address] [place] [id number] [place] [address] [phone]- 0941 May, [place] [address] [address]- [phone] 14 May, 2016 Type 2 diabetes mellitus with diabetic neuropathy, without long-term current use of insulin E11.40 ; Anxiety F41.9 and Chronic obstructive pulmonary disease, unspecified COPD type J44.9 [place] [address] [place] [id number] [place] [address] 41746- 3345 May, [place] [address] [place] [id number] [place] [address] 45366- 4383 May, [place] [address] [id number]- 0710 May, [place] [address] 81653- 5505 May, Chronic obstructive pulmonary disease, unspecified COPD type J44.9 [place] [address] [place] [id number] [place] [address] 95581- 9192 Mar, [place] [address] 71394- 2535 Mar, Arthritis of both knees M19.90 [place] [address] 71412- [address]249 Mar, Type 2 diabetes mellitus with diabetic neuropathy, without long-term current use of insulin E11.40 [facility] [id number] [place] [address]- [address] Mar, [facility] [address] [address] Mar, Neck pain M54.2 and Weakness generalized R53.1 [facility] [facility] [address] [address]- [address] Mar, [facility] [facility] [address] [address]- [address]252 Mar, Cervicalgia M54.2 and Impacted cerumen of both ears H61.23 [place] [address] [address]- [address]326 Mar, [facility] [address] [address] Mar, Type 2 diabetes mellitus with diabetic neuropathy, without long-term current use of insulin E11.40 [facility] [address], [place] [address] Feb, [facility] [id number] [place] [address] 21343- 9674 Feb, Hypoxia R09.02 [facility] [id number] [place] [address] 67623- 8711 Feb, [facility] [id number] [place] [address] 45167- 1040 Feb, [facility] [address], [place] [address] Feb, [facility] [id number] [place] [address] 57815- 3205 Feb, Type 2 diabetes mellitus with diabetic neuropathy, without long-term current use of insulin E11.40 [facility] [address], [place] [address] Feb, Osteoarthritis of both knees, unspecified osteoarthritis type M17.0 [facility] [address], [place] [address] Feb, [facility] [address], [place] [address] 18[address] Feb, [facility] [address] [address] Feb, [facility] [id number] [place] [address] 72848- 0113 Jan, [facility] [address], [place] [address] Jan, [facility] [address] [address]- [address]459 Jan, [facility] [address] [address]- 1798 Jan, [facility] [address] [address]- [address] Jan, Tinea pedis of both feet B35.3 [place] [address] [address]- [address]278 03 Jan, 2016 Type 2 diabetes mellitus [...] seasonality J30.9 and Encounter for immunization Z23 [facility] [address] [address]- 4260 Jan, [place] [address] [address]- 6186 Jan, [facility] [address] [address]- 9012 Dec, [facility] [address] 0[address]- 5699 Dec, [facility] [address] [address] Dec, Unspecified asthma with (acute) exacerbation J45.901 and Chronic obstructive pulmonary disease with (acute) exacerbation J44.1 [facility] [facility] [address] [address]- 3083 Dec, Arthritis of both knees M19.90 and Acute medial meniscus tear, right, initial encounter S83.241A [facility] [id number] [place] [address] 26946- 5235 Dec, [facility] [id number] [place] [address] 30353- 3172 14 Dec, 2015 [facility] [id number] [place] [address] 60911- 0196 14 Dec, 2015 [facility] [id number] [place] [address] 51999- 0167 Dec, [facility] [id number] [place] [address] 20569- 8101 Dec, History of pneumonia Z87.01 [facility] [id number] [place] [address] 70490- 1937 Dec, [facility] [id number] [place] [address] 29969- 8968 Dec, [facility] [id number] [place] [address] 86729- 8559 05 Dec, 2015 [facility] [id number] [place] [address] 32989- 4906 Dec, [facility] [id number] [place] [address] 08078- 3743 Dec, [facility] [id number] [place] [address] 59810- 8266 Dec, [facility] [id number] [place] [address] 60154- 7439 30 Nov, 2015 Cough R05 and Pneumonia due to infectious organism, unspecified laterality, unspecified part of lung J18.9 [facility] [id number] [place] [address] 86206- 0194 28 Nov, 2015 [facility] [id number] [place] [address] 33217- 2851 22 Nov, 2015 Type 2 diabetes mellitus [...] seasonality J30.9 [facility] [address] [facility] [id number] [place] [address]- [address] 12 Nov, 2015 IMMUNIZATIONS No Known Immunizations SOCIAL HISTORY Never Assessed REASON FOR VISIT Refill request PLAN OF CARE VITAL SIGNS MEDICATIONS Medication Instructions Dosage Frequency Start Date End Date Duration Status Doxazosin Mesylate 4 MG Orally at bedtime 1 tablet Active RESULTS No Results PROCEDURES No Known procedures INSTRUCTIONS MEDICATIONS ADMINISTERED No Known Medications MEDICAL (GENERAL) HISTORY Type Description Date Medical History hypertension Medical History chronic obstructive pulmonary disease (COPD)-wears 2L O2 per [place], uses [employer] for home O2 Medical History Arthritis-knees and [...] TIA, [facility] 2014 Hospitalization History COPD exacerbation--[facility] 12/27/2015 [facility] - fall 02/2016 [facility] pneumonia 11/2016 Hospitalization History COPD exacerbation - Dr Hartley Attending 12/2016 Hospitalization History Cough- [facility] [place] 04/10/2017 [facility]ization [facility] - Possible Pneumonia 06/2017 Hospitalization History COPD hiatal hernia 08/2017
--- OUTSIDE RECORDS SUMMARY | 2018-01-05 15:58 | XMS REPORT ---
Author Author DARIN HARTLEY Organization [facility] Address [address] 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 Active 198668507340292 Problem Nocturnal hypoxemia G47.34 Active 272905485 Problem Gastroesophageal reflux disease without esophagitis K21.9 Active 990884325 Problem Recurrent major depressive disorder, in partial 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 Active 89125102 Problem 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 Active 135706285 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 Active 4312475 Problem Hypoxia R09.02 Active 586947716 Problem Elevated transaminase level R74.0 Active 821479700 Problem 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 Active 842682788 Problem Essential hypertension I10 Active 88918538 Problem Anxiety F41.9 Active 72057666 Problem Chronic obstructive pulmonary disease, unspecified COPD type J44.9 Active 99330195 Problem Allergic rhinitis, unspecified allergic rhinitis trigger, unspecified rhinitis seasonality J30.9 Active 39895594 Problem Mixed hyperlipidemia E78.2 Active 903247959 Problem Type 2 diabetes mellitus with diabetic neuropathy, without long-term current use of insulin E11.40 Active 24963329 ALLERGIES Substance Reaction Event Type Date Status Hydrocodone-Acetaminophen Unknown Drug Allergy Aug, Active Codeine Sulfate Unknown Drug Allergy Aug, Active Aspirin Unknown Drug Allergy Aug, Active ENCOUNTERS Encounter Location Date Diagnosis [facility] [address] [facility] [id number] [address] Oct, [facility] [id number] [place] [address] 22778- 8915 Oct, [facility] [id number] [place] [address] 00641- 4222 Oct, Chronic pain syndrome G89.4 [facility] [id number] [place] [address] 38897- 3483 Oct, Community acquired bacterial pneumonia J15.9 ; Allergic rhinitis, unspecified allergic rhinitis trigger, unspecified rhinitis seasonality J30.9 ; Type 2 diabetes mellitus with diabetic neuropathy, without long-term current use of insulin E11.40 ; Chronic GERD K21.9 and Chronic obstructive pulmonary disease, unspecified COPD type J44.9 [facility] [id number] [place] [address] 32059- 6601 Oct, [facility] [id number] [place] [address] 14717- 1586 Oct, [facility] [id number] [place] [address] 10245- 5690 Oct, [facility] [id number] [place] [address] 89845- 3799 Oct, [facility] [id number] [place] [address] 27332- 2084 Oct, Essential hypertension I10 [facility] [id number] [place] [address] 72840- 3785 Oct, Type 2 diabetes mellitus with diabetic neuropathy, without long-term current use of insulin E11.40 ; Chronic obstructive pulmonary disease , unspecified COPD type J44.9 ; Mixed hyperlipidemia E78.2 ; Osteoarthritis of both knees, unspecified osteoarthritis type M17.0 ; Alzheimers disease with early onset G30.0 and Essential hypertension I10 [facility] [address] [place] [address] 95730- 6998 Oct, [facility] [id number] [place] [address] 96348- 3869 Oct, [facility] [address] [place] [address] 06032- 5102 Oct, Yeast dermatitis B37.2 [facility] [id number] [place] [address] 83504- 1947 Oct, Chronic pain syndrome G89.4 [facility] [id number] [place] [address] 79924- 7569 Sep, [facility] [id number] [place] [address] 26794- 6749 Sep, [facility] [id number] [place] [address] 38663- 8478 Sep, Alzheimers disease with early onset G30.0 and Chronic pain syndrome G89.4 [facility] [id number] [place] [address] 41489- 2272 Sep, COPD with acute exacerbation J44.1 [facility] [id number] [place] [address] 60680- 1496 Sep, [facility] [id number] [place] [address] 97943- 0175 Sep, [facility] [id number] [place] [address] 42253- 0326 Sep, Gastroesophageal reflux disease without esophagitis K21.9 [facility] [id number] [place] [address] 74022- 0684 Aug, [facility] [id number] [place] [address] 91436- 0019 Aug, [facility] [id number] [place] [address] 04393- 1230 Aug, 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 ; Hospital discharge follow-up Z09 ; Chronic obstructive pulmonary disease, unspecified COPD type J44.9 and Chronic GERD K21.9 [facility] [id number] [place] [address] 83883- 8733 Aug, Chronic pain syndrome G89.4 [facility] [id number] [place] [address] 42277- 3226 Aug, [facility] [id number] [place] [address] 49611- 2519 Aug, [facility] [id number] [place] [address] 86861- 3117 Aug, Chronic pain syndrome G89.4 and Alzheimers disease with early onset G30.0 [facility] [id number] [place] [address] 10103- 2744 Aug, Type 2 diabetes mellitus with diabetic neuropathy, without long-term current use of insulin E11.40 ; Chronic obstructive pulmonary disease , unspecified COPD type J44.9 ; Chronic GERD K21.9 and 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 [facility] [id number] [place] [address] 25307- 7088 Aug, [facility] [id number] [place] [address] 88586- 6946 Aug, Essential hypertension I10 and Cough R05 [facility] [id number] [place] [address] 11116- 2427 Aug, [facility] [id number] [place] [address] 41408- 5639 Aug, [facility] [id number] [place] [address] 14005- 7990 Aug, [facility] [id number] [place] [address] 18469- 5320 06 Aug, 2017 Chronic pain syndrome G89.4 [facility] [id number] [place] [address] 86423- 4076 Aug, [facility] [id number] [place] [address] 37683- 6559 04 Aug, 2017 [facility] [id number] [place] [address] 44851- 0055 July, Gastroesophageal reflux disease without esophagitis K21.9 [facility] [id number] [place] [address] 32022- 7762 July, [facility] [id number] [place] [address] 09618- 6961 July, [facility] [id number] [place] [address] 53692- 8424 July, [facility] [id number] [place] [address] 78348- 1049 July, Essential hypertension I10 and Chronic pain syndrome G89.4 [facility] [id number] [place] [address] 38321- 1613 July, Gastroesophageal reflux disease without esophagitis K21.9 [facility] [id number] [place] [address] 52589- 9094 July, Alzheimers disease with early onset G30.0 [facility] [id number] [place] [address] 37661- 6328 July, Chronic obstructive pulmonary disease, unspecified COPD type J44.9 ; Nocturnal cough R05 ; 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 and Recurrent major depressive disorder, in partial 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 [facility] [address] [place] [address] 31714- 8499 July, [facility] [id number] [place] [address] 72478- 2855 July, Type 2 diabetes mellitus with diabetic neuropathy, without long-term current use of insulin E11.40 [facility] [id number] [place] [address] 05275- 5923 July, Nocturnal hypoxemia G47.34 ; Chronic obstructive pulmonary disease, unspecified COPD type J44.9 and Nocturnal cough R05 [facility] [address] [address] 28[address] July, [facility] [id number] [place] [address] 03075- 4854 July, [facility] [id number] [place] [address] 46188- 0419 July, [facility] [id number] [place] [address] 07804- 4961 Jun, Chronic pain syndrome G89.4 [facility] [address] 78758- 9742 Jun, [facility] [id number] [place] [address] 50187- 5487 Jun, [facility] [address] 76843- 4846 Jun, Alzheimers disease with early onset G30.0 [facility] [id number] [place] [address] 04534- 8444 Jun, [facility] [id number] [place] [address] 32847- 9999 Jun, Gastroesophageal reflux disease without esophagitis K21.9 [facility] [id number] [place] [address] 14312- 4096 Jun, Allergic rhinitis, unspecified allergic rhinitis trigger, unspecified rhinitis seasonality J30.9 [facility] [id number] [place] [address] 32463- 6896 Jun, Chronic pain syndrome G89.4 [facility] [id number] [place] [address] 20484- 3843 May, [facility] [id number] [place] [address] 24487- 1446 May, COPD with acute exacerbation J44.1 [facility] [id number] [place] [address] 95924- 7248 14 May, 2017 Type 2 diabetes mellitus with diabetic neuropathy, without long-term current use of insulin E11.40 ; COPD with acute exacerbation J44.1 ; Hypoxia R09.02 ; Chronic pain syndrome G89.4 ; Yeast dermatitis B37.2 ; Alzheimers disease with early onset G30.0 and 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 [facility] [id number] [place] [address] 67308- 5376 May, [facility] [id number] [place] [address] 56221- 6116 May, Chronic pain syndrome G89.4 [facility] [address] 25981- 6906 May, [facility] [address] 84829- 9186 May, [facility] [id number] [place] [address] 89145- 6546 May, Mixed hyperlipidemia E78.2 [facility] [address] 20951- 2568 May, Chronic pain syndrome G89.4 [facility] [id number] [place] [address] 43646- 4069 May, Anxiety F41.9 and Chronic pain syndrome G89.4 [facility] [id number] [place] [address] 20178- 6866 Mar, [facility] [id number] [place] [address] 39345- 1049 Mar, [facility] [id number] [place] [address] 47693- 7978 Mar, [facility] [id number] [place] [address] 64295- 5086 Mar, [facility] [id number] [place] [address] 17018- 7397 Mar, [facility] [id number] [place] [address] 73554- 6352 Mar, Anxiety F41.9 and Chronic pain syndrome G89.4 [facility] [address] [place] [address] 36935- 9914 Mar, Medicare annual wellness visit, initial Z00.00 [...] Hiatal hernia K44.9 and Actinic keratosis L57.0 [facility] [id number] [place] [address] 51149- 4908 Mar, [facility] [address] 33332- 9122 Mar, Chronic pain syndrome G89.4 [facility] [id number] [place] [address] 80594- 7275 Feb, [facility] [id number] [place] [address] 84134- 2115 Feb, Chronic pain syndrome G89.4 [facility] [id number] [place] [address] 62298- 5441 Feb, [facility] [id number] [place] [address] 74023- 0602 Feb, [facility] [id number] [place] [address] 59718- 3679 Feb, Anxiety F41.9 [facility] [id number] [place] [address] 56938- 7927 Feb, [facility] [id number] [place] [address] 72296- 1270 Feb, Chronic pain syndrome G89.4 [facility] [id number] [place] [address] 49898- 9352 Jan, Essential hypertension I10 [facility] [id number] [place] [address] 62863- 8006 Jan, Chronic pain syndrome G89.4 [facility] [id number] [place] [address] 59604- 3953 Jan, [facility] [id number] [place] [address] 47565- 5990 Jan, Anxiety F41.9 [facility] [address] 24950- 5227 Jan, Encounter for immunization Z23 and Community acquired pneumonia, unspecified laterality J18.9 [facility] [id number] [place] [address] 43705- 6562 Jan, Type 2 diabetes mellitus with diabetic neuropathy, without long-term current use of insulin E11.40 [facility] [id number] [place] [address] 69789- 4972 Dec, Anxiety F41.9 and Chronic pain syndrome G89.4 [facility] [id number] [place] [address] 83519- 1316 Dec, Chronic pain syndrome G89.4 and Essential hypertension I10 [facility] [id number] [place] [address] 68100- 1298 Dec, [facility] [id number] [place] [address] 52537- 2782 Dec, Anxiety F41.9 [facility] [id number] [place] [address] 98700- 5928 Dec, [facility] [id number] [place] [address] 18114- 6623 Dec, Type 2 diabetes mellitus with diabetic neuropathy, without long-term current use of insulin E11.40 ; Lactic acidosis E87.2 ; Chronic obstructive pulmonary disease, unspecified COPD type J44.9 and Encounter for immunization Z23 [facility] [id number] [place] [address] 66569- 5526 Dec, Chronic pain syndrome G89.4 [facility] [id number] [place] [address] 02987- 4128 Nov, [facility] [id number] [place] [address] 02002- 2180 Nov, Chronic pain syndrome G89.4 [facility] [id number] [place] [address] 30731- 8914 Nov, [facility] [id number] [place] [address] 07642- 1774 Nov, [facility] [id number] [place] [address] 23924- 0922 Nov, Anxiety F41.9 [facility] [id number] [place] [address] 24363- 7930 Nov, Anxiety F41.9 [facility] [id number] [place] [address] 01755- 6944 Nov, [facility] [id number] [place] [address] 62570- 6129 Nov, [facility] [id number] [place] [address] 00732- 8662 Nov, [facility] [id number] [place] [address] 99460- 1261 Oct, [facility] [id number] [place] [address] 58724- 0390 Oct, [facility] [id number] [place] [address] 27809- 8911 Oct, [facility] [id number] [place] [address] 06894- 4520 Oct, Essential hypertension I10 and Chronic pain syndrome G89.4 [facility] [address] [place] [address] 15087- 3917 Oct, Anxiety F41.9 [facility] [id number] [place] [address] 06756- 5042 Oct, [facility] [id number] [place] [address] 50864- 6449 Oct, Chronic pain syndrome G89.4 [facility] [id number] [place] [address] 82784 -7612 Oct, Sore throat J02.9 and Acute nasopharyngitis (common cold) J00 [facility] [id number] [place] [address] 37529- 8704 Sep, [facility] [id number] [place] [address] 01413- 7109 Sep, COPD exacerbation J44.1 [facility] [id number] [place] [address] 15465- 1115 Sep, Chronic pain syndrome G89.4 [facility] [id number] [place] [address] 05007- 6525 Sep, Essential hypertension I10 [facility] [id number] [place] [address] 44447- 6354 Sep, [facility] [id number] [place] [address] 83403- 7145 Sep, [facility] [id number] [place] [address] 00800- 2472 Sep, Anxiety F41.9 [facility] [id number] [place] [address] 06174- 9082 Sep, Chronic pain syndrome G89.4 [facility] [id number] [place] [address] 07612- 3852 Sep, [facility] [id number] [place] [address] 73343- 5006 Aug, Acute seasonal allergic rhinitis, unspecified trigger J30.2 ; Hiatal hernia K44.9 and Chronic pain syndrome G89.4 [facility] [id number] [place] [address] 89643- 4973 Aug, [facility] [id number] [place] [address] 70801- 7186 Aug, [facility] [id number] [place] [address] 40044- 5100 Aug, Chronic obstructive pulmonary disease, unspecified COPD type J44.9 [facility] [id number] [place] [address] 88640- 7846 Aug, Anxiety F41.9 [facility] [id number] [place] [address] 44298- 5075 Aug, Chronic pain syndrome G89.4 [facility] [id number] [place] [address] 58341- 3515 Aug, Hiatal hernia K44.9 and Actinic keratosis L57.0 [facility] [id number] [place] [address] 21094- 8268 Aug, [facility] [id number] [place] [address] 59512- 9161 Aug, Anxiety F41.9 [facility] [id number] [place] [address] 93020- 4283 July, [facility] [id number] [place] [address] 56066- 6666 July, Hiatal hernia K44.9 [facility] [id number] [place] [address] 90616- 5573 July, [facility] [id number] [place] [address] 88152- 4533 July, Anxiety F41.9 and Chronic pain syndrome G89.4 [facility] [id number] [place] [address] 04008- 7649 July, [facility] [id number] [place] [address] 10040- 1012 Jun, Chronic pain syndrome G89.4 [facility] [id number] [place] [address] 10193- 4732 Jun, Chronic pain syndrome G89.4 [facility] [address] 16611- 8637 Jun, [facility] [id number] [place] [address] 91589- 9195 Jun, Anxiety F41.9 [facility] [address] 86315- 4508 Jun, Allergic rhinitis, unspecified allergic rhinitis trigger, unspecified rhinitis seasonality J30.9 [facility] [address] 68178- 7702 Jun, [facility] [id number] [place] [address] 10674- 5129 May, Chronic pain syndrome G89.4 [facility] [id number] [place] [address] 34400- 4225 May, [facility] [id number] [place] [address] 19149- 6480 May, [facility] [id number] [place] [address] 29014- 7799 May, Anxiety F41.9 [facility] [address] [place] [address] 67938- 3628 May, Type 2 diabetes mellitus with diabetic [...] Anxiety F41.9 and Chronic pain syndrome G89.4 [facility] [id number] [place] [address] 62542- 5334 May, Essential hypertension I10 ; Type 2 diabetes mellitus with diabetic neuropathy, without long-term current use of insulin E11.40 ; Mixed hyperlipidemia E78.2 ; Chronic obstructive pulmonary disease, unspecified COPD type J44.9 and Chronic GERD K21.9 [facility] [id number] [place] [address] 45642- 7502 May, [facility] [id number] [place] [address] 59338- 7821 May, [facility] [id number] [place] [address] 79803- 6097 May, Type 2 diabetes mellitus with diabetic neuropathy, without long-term current use of insulin E11.40 [facility] [id number] [place] [address] 27523- 5627 May, Dementia without behavioral disturbance, unspecified dementia type F03.90 [facility] [id number] [place] [address] 08997- 4234 May, Type 2 diabetes mellitus with diabetic neuropathy, without long-term current use of insulin E11.40 ; Essential hypertension I10 ; Mixed hyperlipidemia E78.2 ; Chronic obstructive pulmonary disease, unspecified COPD type J44.9 ; Chronic GERD K21.9 and Osteoarthritis of both knees, unspecified osteoarthritis type M17.0 [place] [id number] [place] [address] 95966- 0191 May, [place] [address] [id number] [place] [address] 51182- 8064 May, [place] [id number] [place] [address] 49251- 1382 May, Anxiety F41.9 and Unspecified symptoms and signs involving cognitive functions and awareness R41.[address] [place] [address] May, [facility] [id number] [place] [address] 99804- 9186 May, Type 2 diabetes mellitus with diabetic neuropathy, without long-term current use of insulin E11.40 ; Anxiety F41.9 and Chronic obstructive pulmonary disease, unspecified COPD type J44.9 [place] [address] [id number] [place] [address] 21655- 7171 May, [facility] [id number] [place] [address] 63590- 7916 May, [place] [address] [address]- [address] May, [place] [address] [place] [id number] [place] [address] 47939- 1107 May, Chronic obstructive pulmonary disease, unspecified COPD type J44.9 [place] [address] [place] [id number] [place] [address] 80954- 4065 Mar, [place] [address] [place] [id number] [place] [address] 30395- 1569 Mar, Arthritis of both knees M19.90 [place] [address] [place] [id number] [place] [address] 57642- 2788 Mar, Type 2 diabetes mellitus with diabetic neuropathy, without long-term current use of insulin E11.40 [place] [id number] [place] [address] 03411- 5845 Mar, [place] [address] [id number] [place] [address] 52349- 8868 Mar, Neck pain M54.2 and Weakness generalized R53.1 [place] [address] [id number] [place] [address] 51889- 1551 Mar, [place] [address] [id number] [place] [address] 31467- 4310 Mar, Cervicalgia M54.2 and Impacted cerumen of both ears H61.23 [facility] [id number] [place] [address] 02270- 4736 Mar, [facility] [address] [id number] [place] [address] 13859- 7465 Mar, Type 2 diabetes mellitus with diabetic neuropathy, without long-term current use of insulin E11.40 [facility] [address] [id number] [place] [address] 15027- 1596 Feb, [facility] [id number] [place] [address] 12140- 4090 Feb, Hypoxia R09.02 [facility] [id number] [place] [address] 19615- 1781 Feb, [facility] [id number] [place] [address] 38888- 0391 Feb, [facility] [id number] [place] [address] 81690- 3525 Feb, [facility] [id number] [place] [address] 50711- 4693 Feb, Type 2 diabetes mellitus with diabetic neuropathy, without long-term current use of insulin E11.40 [facility] [id number] [place] [address] 11954- 4907 Feb, Osteoarthritis of both knees, unspecified osteoarthritis type M17.0 [facility] [address] [id number] [place] [address] 93388- 9974 14 Feb, 2016 [facility] [id number] [place] [address] 01636- 9544 Feb, [facility] [address] [id number] [place] [address] 93694- 9496 Feb, [facility] [id number] [place] [address] 37452- 2406 Jan, [facility] [id number] [place] [address] 28495- 0251 15 Jan, 2016 [facility] [address] 06595- 7341 Jan, [facility] [address] 56768- 0001 Jan, [place] [address] 10841- 6373 10 Jan, 2016 Tinea pedis of both feet B35.3 [place] [address] 28139- 6962 03 Jan, 2016 Type 2 diabetes mellitus [...] seasonality J30.9 and Encounter for immunization Z23 [place] [address] 66592- 7464 Jan, [place] [address] 91113- 8294 Jan, [place] [address] [id number] [place] [address] 85719- 3191 Dec, [place] [address] 08361- 1573 Dec, [facility] [address] [address] Dec, Unspecified asthma with (acute) exacerbation J45.901 and Chronic obstructive pulmonary disease with (acute) exacerbation J44.1 [place] [address] 68233- 5886 Dec, Arthritis of both knees M19.90 and Acute medial meniscus tear, right, initial encounter S83.241A [facility] [id number] [place] [address] 20433- 8998 Dec, [facility] [id number] [place] [address] 46693- 7330 14 Dec, 2015 [facility] [id number] [place] [address] 38716- 6685 14 Dec, 2015 [facility] [id number] [place] [address] 88193- 0101 Dec, [facility] [id number] [place] [address] 54263- 9520 Dec, History of pneumonia Z87.01 [facility] [id number] [place] [address] 87981- 9513 Dec, [facility] [id number] [place] [address] 94247- 6459 Dec, [facility] [id number] [place] [address] 70962- 9990 Dec, [facility] [id number] [place] [address] 48396- 0052 Dec, [facility] [id number] [place] [address] 47342- 9700 Dec, [facility] [id number] [place] [address] 92536- 2291 Dec, [facility] [id number] [place] [address] 87965- 7472 30 Nov, 2015 Cough R05 and Pneumonia due to infectious organism, unspecified laterality, unspecified part of lung J18.9 [facility] [address] [address] 28 Nov, 2015 [facility] [id number] [place] [address] 64643- 4229 Nov, Type 2 diabetes mellitus with diabetic [...] allergic rhinitis trigger, unspecified rhinitis seasonality J30.9 [facility] [address] [facility] [id number] [place] [address] Nov, IMMUNIZATIONS No Known Immunizations SOCIAL HISTORY Never Assessed REASON FOR VISIT Transition of Care, PT fell during the weekend in his livingroom but states he is not hurt or in pain-[place] PLAN OF CARE Activity Details Follow Up 3 Months Reason:DMT2 VITAL SIGNS Height 72 in 2017-09-15 Weight 246.4 lbs 2017-09-15 Temperature 97.8 degrees Fahrenheit 2017-09-15 Heart Rate 79 bpm 2017-09-15 Respiratory Rate 18 2017-09-15 Oximetry w/ oxygen @ 3L:93 % 2017-09-15 BMI 33.41 kg/m2 2017-09-15 Blood pressure systolic 134 mmHg 2017-09-15 Blood pressure diastolic 62 mmHg 2017-09-15 MEDICATIONS Medication Instructions Dosage Frequency Start Date End Date Duration Status Benazepril HCl 20 MG Orally Once a day 1 tablet 24h 30 days Active Tramadol HCl 50 mg Orally every 12 hrs must last 28 days 1 tablet as needed 28 days Active Lancets - test blood sugar Jan, 30 days Not-Taking Myrbetriq 25 TAKE ONE TABLET BY MOUTH DAILY DIRECTED 90 Active Spiriva HandiHaler 18 MCG Inhalation Once a day 1 capsule 24h Not- Taking GlipiZIDE 5 mg Orally twice a day 1 tablet 12h 30 days Active Lyrica 100 mg Orally Twice a day 1 capsule 12h Active Nystatin 821764 UNIT/GM Externally Twice a day 1 application to affected area 12h 14 May, 2017 Not-Taking Levocetirizine Dihydrochloride 5 MG Orally Once a day 1 tablet in the evening 24h Active Fish Oil 1000 MG Orally Twice a day 1 capsule 12h Active Exelon 4.6 MG/24HR APPLY ONE PATCH TO HAIR-FREE AREA ABOVE THE WAIST AND CHANGE EVERY 24 HOURS Active Oxygen nc continuously 2 liters Active Albuterol Sulfate (2.5 MG/3ML) 0.083% Inhalation 3 times a day and PRN 3 ml Active Coricidin HBP Day/Night Cold 10-20 &15-200-2 MG Orally 1 Daytime pill Q AM, noon and 5 pm; and 2 Nighttime pills at hs Active Loratadine 10 MG Orally Once a day 1 tablet 24h 30 day(s) Active Robitussin Chest Congestion 100 MG/5ML Orally 3 times a day 5 ml as needed 8h Active Montelukast Sodium 10 mg Orally Once a day 1 tablet in the evening 24h 30 days Active Metformin HCl 500 mg Orally Once a day (pt only takes 1/2 tab PRN gluocse over 180) 1 tablet with a meal Active Triamcinolone Acetonide 0.1 % Externally Twice a day to as needed 1 application to affected area Jan, 30 days Not-Taking Viibryd 10 mg TAKE ONE TABLET BY MOUTH DAILY WITH FOOD 28 Active Amlodipine Besylate 10 mg Orally Once a day 1 tablet 24h 30 days Active Clonazepam 1 MG Orally 3 times a day 1 tablet 8h 28 days Active Pantoprazole Sodium 40 mg Orally Once a day 1 tablet 24h 30 days Active Tylenol PM Extra Strength 500-25 MG Orally at bedtime 2 tablet at bedtime as needed Not-Taking Fluticasone Propionate 50 MCG/ACT Nasally Once a day at hs 1 spray in each nostril Aug, Not-Taking Zofran 4 MG Not-Taking Zantac 150 mg Orally 2 times a day 1 tablet 12h Jun, 30 day(s) Active Symbicort 80-4.5 MCG/ACT Inhalation Twice a day 2 puffs 12h Not- Taking Plavix 75 MG Orally Once a day 1 tablet 24h July, Active Atorvastatin Calcium 40 mg Orally Once a day 1 tablet 24h Active Polyethylene Glycol 3350 - Orally Once a day 17grams with 8oz liquid 24h 18 Feb, 2017 Not-Taking Doxazosin Mesylate 4 MG Orally at bedtime 1 tablet Active RESULTS Name Result Date Reference Range A1C (IN HOUSE) 2017-09-15 A1C IN HOUSE 6.5 4.3 - 5.6 % Previous A1c 6.4 Lot [id number] Exp date 05/2019 MICROALBUMIN, URINE (IN HOUSE) 2017-09-15 MICROALBUMIN NORMAL Lot # [id number] Exp date 27 Sep 2018 Clarity clear Color yellow ALB 10 CRE 50 A:C (IN HOUSE) <30 Control normal Control abnormal Lot # [id number] Exp date Feb 2018 PROCEDURES Procedure Date Ordered Result Body Site GLYCATED HEMOGLOBIN TEST September 15, 2017 MICROALBUMIN, SEMIQUANT September 15, 2017 [facility] VISIT ESTABLISHED PATIENT September 15, 2017 INSTRUCTIONS MEDICATIONS ADMINISTERED No Known Medications MEDICAL (GENERAL) HISTORY Type Description Date Medical History hypertension Medical History chronic obstructive pulmonary disease (COPD)-wears 2L O2 per [place], uses Turkish for home O2 Medical History Arthritis-knees and [...] TIA, [address] 2014 Hospitalization History COPD exacerbation--[facility] 12/27/2015 [facility] - fall 02/2016 Hospitalization History [facility] 11/2016 Hospitalization History COPD exacerbation - Dr Hartley Attending 12/2016 Hospitalization History Cough- [facility] [place] 04/10/2017 Hospitalization History [facility] - Possible Pneumonia 06/2017 Hospitalization History COPD hiatal hernia 08/2017
--- OUTSIDE RECORDS SUMMARY | 2018-01-05 15:59 | XMS REPORT ---
Author Author DARIN HARTLEY Organization [facility] [facility] Address [address] [place] [address] Care Team Providers Care Drill Press Tender Name Role Phone DARIN HARTLEY Unavailable PROBLEMS Type Condition ICD9-CM Code [id number] Code Onset Dates Condition Status SNOMED Code Problem Osteoarthritis of both knees, unspecified osteoarthritis type M17.0 Active 739853492 Problem Chronic GERD K21.9 Active 483138295 Problem Chronic pain syndrome G89.4 Active 033027186 Problem 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 Active 305859106 Problem 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 Active 451592626607887 Problem Nocturnal hypoxemia G47.34 Active 325351816 Problem Gastroesophageal reflux disease without esophagitis K21.9 Active 973590801 Problem Recurrent major depressive disorder, in partial 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 Active 09152975 Problem 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 Active 322446661 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 Active 3076228 Problem Hypoxia R09.02 Active 421462636 Problem Elevated transaminase level R74.0 Active 150794374 Problem 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 Active 042212315 Problem Essential hypertension I10 Active 23869444 Problem Anxiety F41.9 Active 27534525 Problem Chronic obstructive pulmonary disease, unspecified COPD type J44.9 Active 12443209 Problem Allergic rhinitis, unspecified allergic rhinitis trigger, unspecified rhinitis seasonality J30.9 Active 63058252 Problem Mixed hyperlipidemia E78.2 Active 909793291 Problem Type 2 diabetes mellitus with diabetic neuropathy, without long-term current use of insulin E11.40 Active 64874157 ALLERGIES No Information ENCOUNTERS Encounter Location Date Diagnosis [facility] [address] [facility] [id number] [address] Oct, [facility] [address] [facility] [id number] [address] Oct, [facility] [facility] [id number] [place] [address] 75809- 4833 Oct, Chronic pain syndrome G89.4 [facility] [id number] [place] [address] 61793- 3699 Oct, Community acquired bacterial pneumonia J15.9 ; Allergic rhinitis, unspecified allergic rhinitis trigger, unspecified rhinitis seasonality J30.9 ; Type 2 diabetes mellitus with diabetic neuropathy, without long-term current use of insulin E11.40 ; Chronic GERD K21.9 and Chronic obstructive pulmonary disease, unspecified COPD type J44.9 [facility] [id number] [place] [address] 68454- 8792 Oct, [facility] [id number] [place] [address] 81194- 1702 Oct, [facility] [place] [facility] [id number] [place] [address] 13467- 7149 Oct, [facility] [id number] [place] [address] 51779- 3251 Oct, [facility] [facility] [id number] [place] [address] 03380- 4966 Oct, Essential hypertension I10 [facility] [id number] [place] [address] 32370- 8124 Oct, Type 2 diabetes mellitus with diabetic neuropathy, without long-term current use of insulin E11.40 ; Chronic obstructive pulmonary disease , unspecified COPD type J44.9 ; Mixed hyperlipidemia E78.2 ; Osteoarthritis of both knees, unspecified osteoarthritis type M17.0 ; Alzheimers disease with early onset G30.0 and Essential hypertension I10 [facility] [id number] [place] [address] 13386- 1860 Oct, [facility] [id number] [place] [address] 15311- 3939 Oct, [facility] [place] [facility] [id number] [place] [address] 16490- 6635 Oct, Yeast dermatitis B37.2 [facility] [id number] [place] [address] 35697- 5898 Oct, Chronic pain syndrome G89.4 [facility] [id number] [place] [address] 89677- 7790 Sep, [facility] [place] [facility] [id number] [place] [address] 85110- 2407 Sep, [facility] [id number] [place] [address] 00253- 9881 Sep, Alzheimers disease with early onset G30.0 and Chronic pain syndrome G89.4 [facility] [id number] [place] [address] 38734- 3779 Sep, COPD with acute exacerbation J44.1 [facility] [id number] [place] [address] 88645- 5988 Sep, [facility] [id number] [place] [address] 48875- 4779 Sep, [facility] [facility] [id number] [place] [address] 49670- 6187 Sep, Gastroesophageal reflux disease without esophagitis K21.9 [facility] [id number] [place] [address] 45246- 7772 Aug, [facility] [id number] [place] [address] 11935- 9718 Aug, [facility] [id number] [place] [address] 36859- 2689 Aug, 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 ; Hospital discharge follow-up Z09 ; Chronic obstructive pulmonary disease, unspecified COPD type J44.9 and Chronic GERD K21.9 [facility] [address] [address] 0717 Aug, Chronic pain syndrome G89.4 [facility] [id number] [place] [address] 08233- 9953 Aug, [facility] [id number] [place] [address] 24858- 5662 Aug, [facility] [id number] [place] [address] 69272- 6123 Aug, Chronic pain syndrome G89.4 and Alzheimers disease with early onset G30.0 [facility] [address] 23489- 3873 Aug, Type 2 diabetes mellitus with diabetic neuropathy, without long-term current use of insulin E11.40 ; Chronic obstructive pulmonary disease , unspecified COPD type J44.9 ; Chronic GERD K21.9 and 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 [facility] [id number] [place] [address] 10944- 8377 Aug, [facility] [address] 41652- 2694 Aug, Essential hypertension I10 and Cough R05 [facility] [id number] [place] [address] 45786- 6266 Aug, [facility] [id number] [place] [address] 75129- 7987 Aug, [facility] [id number] [place] [address] 89906- 7956 Aug, [facility] [id number] [place] [address] 88302- 5770 Aug, Chronic pain syndrome G89.4 [facility] [id number] [place] [address] 96541- 7244 Aug, [facility] [id number] [place] [address] 86456- 8106 Aug, [facility] [id number] [place] [address] 46268- 6498 July, Gastroesophageal reflux disease without esophagitis K21.9 [facility] [address] [place] [address] 3322 July, [facility] [id number] [place] [address] 03217- 6709 July, [facility] [id number] [place] [address] 68289- 9958 July, [facility] [id number] [place] [address] 26715- 9918 July, Essential hypertension I10 and Chronic pain syndrome G89.4 [facility] [id number] [place] [address] 12333- 0822 July, Gastroesophageal reflux disease without esophagitis K21.9 [facility] [id number] [place] [address] 88815- 6180 July, Alzheimers disease with early onset G30.0 [facility] [address] 47062- 3191 July, Chronic obstructive pulmonary disease, unspecified COPD type J44.9 ; Nocturnal cough R05 ; 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 and Recurrent major depressive disorder, in partial 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 [facility] [id number] [place] [address] 90666- 3291 July, [facility] [id number] [place] [address] 92852- 2402 July, Type 2 diabetes mellitus with diabetic neuropathy, without long-term current use of insulin E11.40 [facility] [id number] [place] [address] 04015- 8647 July, Nocturnal hypoxemia G47.34 ; Chronic obstructive pulmonary disease, unspecified COPD type J44.9 and Nocturnal cough R05 [facility] [id number] [place] [address] 22048- 0340 July, [facility] [id number] [place] [address] 34634- 1528 July, [facility] [address] [place] [address]- 5603 July, [facility] [facility] [id number] [place] [address] 51360- 2698 Jun, Chronic pain syndrome G89.4 [facility] [id number] [place] [address] 24722- 2709 Jun, [facility] [address] 42860- 2705 Jun, [facility] [id number] [place] [address] 41597- 7477 Jun, Alzheimers disease with early onset G30.0 [facility] [address] 26855- 7790 Jun, [facility] [id number] [place] [address] 17518- 9039 Jun, Gastroesophageal reflux disease without esophagitis K21.9 [facility] [id number] [place] [address] 69818- 6201 Jun, Allergic rhinitis, unspecified allergic rhinitis trigger, unspecified rhinitis seasonality J30.9 [facility] [id number] [place] [address] 28040- 6853 Jun, Chronic pain syndrome G89.4 [facility] [id number] [place] [address] 40567- 3781 May, [facility] [id number] [place] [address] 98479- 4038 May, COPD with acute exacerbation J44.1 [facility] [id number] [place] [address] 51528- 1347 14 May, 2017 Type 2 diabetes mellitus with diabetic neuropathy, without long-term current use of insulin E11.40 ; COPD with acute exacerbation J44.1 ; Hypoxia R09.02 ; Chronic pain syndrome G89.4 ; Yeast dermatitis B37.2 ; Alzheimers disease with early onset G30.0 and 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 [facility] [address] [address]- 4231 May, [facility] [id number] [place] [address] 65827 2546 May, Chronic pain syndrome G89.4 [facility] [id number] [place] [address] 56336 2546 May, [facility] [id number] [place] [address] 10647 2546 May, [facility] [id number] [place] [address] 66497- 2756 May, Mixed hyperlipidemia E78.2 [facility] [id number] [place] [address] 84052- 0696 May, Chronic pain syndrome G89.4 [facility] [id number] [place] [address] 72849- 8068 May, Anxiety F41.9 and Chronic pain syndrome G89.4 [facility] [id number] [place] [address] 80869- 9900 Mar, [facility] [id number] [place] [address] 97241- 4269 Mar, [facility] [facility] [address] [address]- 1699 Mar, [facility] [address] [address] 2549 Mar, [facility] [facility] [id number] [place] [address] 43570- 6516 Mar, [facility] [id number] [place] [address] 35194- 2545 Mar, Anxiety F41.9 and Chronic pain syndrome G89.4 [facility] [address] [address]- 1270 Mar, Medicare annual wellness visit, initial Z00.00 [...] Hiatal hernia K44.9 and Actinic keratosis L57.0 [facility] [address] 70537- 7397 Mar, [facility] [address] 29970- 6558 Mar, Chronic pain syndrome G89.4 [facility] [address] 55047- 4618 Feb, [facility] [address] 64885- 4795 Feb, Chronic pain syndrome G89.4 [facility] [facility] [address] 64809- 7132 Feb, [facility] [id number] [place] [address] 49316- 8154 Feb, [facility] [address] 40976- 3483 Feb, Anxiety F41.9 [facility] [address] 08209- 4370 Feb, [facility] [address] 46647- 6278 Feb, Chronic pain syndrome G89.4 [facility] [id number] [place] [address] 90837- 3924 Jan, Essential hypertension I10 [facility] [id number] [place] [address] 71520- 9488 Jan, Chronic pain syndrome G89.4 [facility] [facility] [address] 59416- 1334 Jan, [facility] [address] 92990- 2587 Jan, Anxiety F41.9 [place] [address] 87878- 6850 Jan, Encounter for immunization Z23 and Community acquired pneumonia, unspecified laterality J18.9 [facility] [address] 82858- 4098 Jan, Type 2 diabetes mellitus with diabetic neuropathy, without long-term current use of insulin E11.40 [facility] [address] 60505- 6891 Dec, Anxiety F41.9 and Chronic pain syndrome G89.4 [facility] [address] 12060- 4073 Dec, Chronic pain syndrome G89.4 and Essential hypertension I10 [facility] [id number] [place] [address] 97912- 6634 Dec, [facility] [id number] [place] [address] 94915- 2060 Dec, Anxiety F41.9 [facility] [id number] [place] [address] 97930- 8076 Dec, [facility] [id number] [place] [address] 06183- 9281 Dec, Type 2 diabetes mellitus with diabetic neuropathy, without long-term current use of insulin E11.40 ; Lactic acidosis E87.2 ; Chronic obstructive pulmonary disease, unspecified COPD type J44.9 and Encounter for immunization Z23 [facility] [address] 99277- 3966 Dec, Chronic pain syndrome G89.4 [facility] [id number] [place] [address] 01301- 5904 28 Nov, 2016 [facility] [id number] [place] [address] 58812- 8158 Nov, Chronic pain syndrome G89.4 [facility] [id number] [place] [address] 47483- 1457 Nov, [facility] [id number] [place] [address] 97071- 8808 Nov, [facility] [id number] [place] [address] 07166- 7830 15 Nov, 2016 Anxiety F41.9 [facility] [facility] [id number] [place] [address] 99465- 4885 11 Nov, 2016 Anxiety F41.9 [facility] [facility] [id number] [place] [address] 87763- 8927 08 Nov, 2016 [facility] [id number] [place] [address] 05934- 1081 05 Nov, 2016 [facility] [facility] [id number] [place] [address] 41483- 9867 Nov, [facility] [facility] [id number] [place] [address] 24328- 9842 Oct, [facility] [place] [facility] [id number] [place] [address] 08810- 6600 Oct, [facility] [id number] [place] [address] 71547- 2337 Oct, [facility] [id number] [place] [address] 87719- 3242 Oct, Essential hypertension I10 and Chronic pain syndrome G89.4 [facility] [facility] [id number] [place] [address] 42923- 4222 Oct, Anxiety F41.9 [facility] [facility] [address] [address]- 2793 Oct, [facility] [place] [facility] [id number] [place] [address] 51947- 6808 Oct, Chronic pain syndrome G89.4 [facility] [id number] [place] [address] 44004 -8995 Oct, Sore throat J02.9 and Acute nasopharyngitis (common cold) J00 [facility] [facility] [id number] [place] [address] 30501- 0141 Sep, [facility] [place] [facility] [id number] [place] [address] 79449- 2472 Sep, COPD exacerbation J44.1 [facility] [place] [facility] [id number] [place] [address] 47522- 9159 Sep, Chronic pain syndrome G89.4 [facility] [place] [facility] [id number] [place] [address] 82793- 9631 Sep, Essential hypertension I10 [facility] [place] [facility] [id number] [place] [address] 37381- 5658 Sep, [facility] [place] [facility] [id number] [place] [address] 09644- 6268 Sep, [facility] [place] [facility] [id number] [place] [address] 47470- 3518 Sep, Anxiety F41.9 [facility] [place] [facility] [id number] [place] [address] 60625- 8110 Sep, Chronic pain syndrome G89.4 [facility] [place] [facility] [id number] [place] [address] 32740- 3872 Sep, [facility] [place] [facility] [id number] [place] [address] 52582- 8822 Aug, Acute seasonal allergic rhinitis, unspecified trigger J30.2 ; Hiatal hernia K44.9 and Chronic pain syndrome G89.4 [facility] [place] [facility] [address] [address]- 8882 Aug, [facility] [place] [facility] [id number] [place] [address] 06934- 1480 Aug, [facility] [place] [facility] [id number] [place] [address] 51162- 4220 Aug, Chronic obstructive pulmonary disease, unspecified COPD type J44.9 [facility] [place] [facility] [id number] [place] [address] 68351- 6808 14 Aug, 2016 Anxiety F41.9 [facility] [place] [facility] [id number] [place] [address] 25255- 8615 08 Aug, 2016 Chronic pain syndrome G89.4 [facility] [place] [facility] [id number] [place] [address] 71750- 8773 07 Aug, 2016 Hiatal hernia K44.9 and Actinic keratosis L57.0 [facility] [place] [facility] [id number] [place] [address] 89110- 5042 Aug, [facility] [place] [facility] [id number] [place] [address] 08222- 2615 Aug, Anxiety F41.9 [facility] [place] [facility] [id number] [place] [address] 25729- 0675 July, [facility] [place] [facility] [id number] [place] [address] 79901- 3347 July, Hiatal hernia K44.9 [facility] [place] [facility] [id number] [place] [address] 03786- 8983 July, [facility] [place] [facility] [id number] [place] [address] 91509- 8175 July, Anxiety F41.9 and Chronic pain syndrome G89.4 [facility] [place] [facility] [id number] [place] [address] 95441- 6757 July, [facility] [place] [facility] [id number] [place] [address] 37581- 3785 Jun, Chronic pain syndrome G89.4 [facility] [place] [facility] [id number] [place] [address] 68832- 5219 Jun, Chronic pain syndrome G89.4 [facility] [place] [facility] [id number] [place] [address] 62488- 8999 Jun, [facility] [place] [facility] [id number] [place] [address] 43182- 2187 Jun, Anxiety F41.9 [facility] [place] [facility] [id number] [place] [address] 63029- 7679 Jun, Allergic rhinitis, unspecified allergic rhinitis trigger, unspecified rhinitis seasonality J30.9 [facility] [place] [facility] [id number] [place] [address] 33650- 3408 Jun, [facility] [place] [facility] [id number] [place] [address] 77854- 1878 May, Chronic pain syndrome G89.4 [facility] [place] [facility] [id number] [place] [address] 15238- 6707 May, [facility] [id number] [place] [address] 08356- 4764 May, [facility] [id number] [place] [address] 45505- 0591 May, Anxiety F41.9 [facility] [id number] [place] [address] 43769- 6098 May, Type 2 diabetes mellitus with diabetic [...] Anxiety F41.9 and Chronic pain syndrome G89.4 [facility] [id number] [place] [address] 64925- 3643 May, Essential hypertension I10 ; Type 2 diabetes mellitus with diabetic neuropathy, without long-term current use of insulin E11.40 ; Mixed hyperlipidemia E78.2 ; Chronic obstructive pulmonary disease, unspecified COPD type J44.9 and Chronic GERD K21.9 [facility] [id number] [place] [address] 82218- 0249 May, [facility] [address] 24025- 5306 May, [facility] [id number] [place] [address] 97873- 9885 May, Type 2 diabetes mellitus with diabetic neuropathy, without long-term current use of insulin E11.40 [facility] [id number] [place] [address] 28062- 8163 May, Dementia without behavioral disturbance, unspecified dementia type F03.90 [facility] [id number] [place] [address] 77994- 7305 May, Type 2 diabetes mellitus with diabetic neuropathy, without long-term current use of insulin E11.40 ; Essential hypertension I10 ; Mixed hyperlipidemia E78.2 ; Chronic obstructive pulmonary disease, unspecified COPD type J44.9 ; Chronic GERD K21.9 and Osteoarthritis of both knees, unspecified osteoarthritis type M17.0 [facility] [id number] [place] [address] 58522- 2389 May, [facility] [id number] [place] [address] 16168- 4602 May, [facility] [id number] [place] [address] 88866- 4135 May, Anxiety F41.9 and Unspecified symptoms and signs involving cognitive functions and awareness R41.9 [facility] [id number] [place] [address] 13683- 2729 May, [facility] [address] 77986- 6151 14 May, 2016 Type 2 diabetes mellitus with diabetic neuropathy, without long-term current use of insulin E11.40 ; Anxiety F41.9 and Chronic obstructive pulmonary disease, unspecified COPD type J44.9 [facility] [id number] [place] [address] 93891- 1227 May, [facility] [id number] [place] [address] 64712- 4741 May, [facility] [address] 71747- 6473 May, [facility] [address] 76082- 3358 May, Chronic obstructive pulmonary disease, unspecified COPD type J44.9 [facility] [id number] [place] [address] 13135- 4198 Mar, [facility] [address] 25581- 8299 Mar, Arthritis of both knees M19.90 [facility] [address] 77400- 5857 Mar, Type 2 diabetes mellitus with diabetic neuropathy, without long-term current use of insulin E11.40 [facility] [address] [address] [place] [id number] [place] [address]85- 1542 Mar, [place] [address] [address]- [address] Mar, Neck pain M54.2 and Weakness generalized R53.1 [place] [address] [address]227- 2658 Mar, [place] [address] [address]- 8311 Mar, Cervicalgia M54.2 and Impacted cerumen of both ears H61.23 [place] [address] 75189- 6661 Mar, [facility] [address] [address] Mar, Type 2 diabetes mellitus with diabetic neuropathy, without long-term current use of insulin E11.40 [facility] [address] [address] Feb, [facility] [address] [place] [id number] [place] [address] 10843- 6623 Feb, Hypoxia R09.02 [facility] [address] [id number] [place] [address] 30384- 2924 Feb, [facility] [address] [place] [id number] [place] [address] 16470- 2396 Feb, [facility] [id number], [place] [address] Feb, [facility] [address] [place] [id number] [place] [address] 36247- 4659 Feb, Type 2 diabetes mellitus with diabetic neuropathy, without long-term current use of insulin E11.40 [facility] [id number], [place] [address] Feb, Osteoarthritis of both knees, unspecified osteoarthritis type M17.0 [facility] [id number] [address] Feb, [facility] [id number] [address] 8[address] Feb, [facility] [id number], [place] [address] 9145 Feb, [facility] [id number] [place] [address] 11043- 5436 Jan, [facility] [address], [place] [address] Jan, [facility] [address] 8[address]90- 9949 Jan, [facility] [address] [address]53- 6345 Jan, [facility] [address] 57031- 3522 Jan, Tinea pedis of both feet B35.3 [place] [address] [address]221- [address]82 03 Jan, 2016 Type 2 diabetes mellitus [...] seasonality J30.9 and Encounter for immunization Z23 [place] [address] 9[address]17- 4103 Jan, [place] [address] 09447- 7857 Jan, [facility] [address] 72846- 4767 Dec, [facility] [address] 00657- 6446 Dec, [facility] [address] [address] -[address] Dec, Unspecified asthma with (acute) exacerbation J45.901 and Chronic obstructive pulmonary disease with (acute) exacerbation J44.1 [place] [address] 38125- 0058 Dec, Arthritis of both knees M19.90 and Acute medial meniscus tear, right, initial encounter S83.241A [facility] [id number] [place] [address] 22034- 0111 Dec, [facility] [address] [place] [id number] [place] [address] 70914- 7821 14 Dec, 2015 [facility] [address] [id number] [place] [address] 51646- 0405 14 Dec, 2015 [facility] [address] [place] [id number] [place] [address] 17600- 8131 Dec, [facility] [address] [place] [id number] [place] [address] 20919- 7745 Dec, History of pneumonia Z87.01 [facility] [address] [place] [id number] [place] [address] 50026- 5205 Dec, [facility] [address] [place] [id number] [place] [address] 74820- 2381 Dec, [facility] [address] [id number] [place] [address] 04557- 1946 05 Dec, 2015 [facility] [address] [place] [id number] [place] [address] 15796- 1570 Dec, [facility] [address] [place] [id number] [place] [address] 42957- 0813 Dec, [facility] [address] [place] [id number] [place] [address] 22359- 1008 Dec, [facility] [id number] [place] [address] 45135- 6119 30 Nov, 2015 Cough R05 and Pneumonia due to infectious organism, unspecified laterality, unspecified part of lung J18.9 [facility] [address] [place] [id number] [place] [address] 38457- 2420 28 Nov, 2015 [facility] [address] [place] [id number] [place] [address] 90633- 0542 22 Nov, 2015 Type 2 diabetes mellitus [...] allergic rhinitis trigger, unspecified rhinitis seasonality J30.9 [facility] [address] [facility] [id number] [place] [address]- [address] 12 Nov, 2015 IMMUNIZATIONS No Known Immunizations [...] obstructive pulmonary disease (COPD)-wears 2L O2 per [place], uses [place] for home O2 Medical History Arthritis-knees and [...] TIA, [facility] 2014 Hospitalization History COPD exacerbation--[facility] 12/27/2015 [facility] - [facility] 02/2016 [facility]ization History [facility] pneumonia 11/2016 Hospitalization History COPD exacerbation - Dr Hartley Attending 12/2016 Hospitalization History Cough- [facility] 04/10/2017 Hospitalization History [facility] - Possible Pneumonia 06/2017 Hospitalization History COPD hiatal hernia 08/2017
--- OUTSIDE RECORDS SUMMARY | 2018-01-05 15:59 | XMS REPORT ---
Author Author DARIN HARTLEY Organization [facility] [place] Address [address] 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 Active 643254156892503 Problem Nocturnal hypoxemia G47.34 Active 346255005 Problem Gastroesophageal reflux disease without esophagitis K21.9 Active 606093078 Problem Recurrent major depressive disorder, in partial 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 Active 38591640 Problem 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 Active 774945618 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 Active 5928962 Problem Hypoxia R09.02 Active 102028216 Problem Elevated transaminase level R74.0 Active 984720292 Problem 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 Active 024843199 Problem Essential hypertension I10 Active 10461170 Problem Anxiety F41.9 Active 78524444 Problem Chronic obstructive pulmonary disease, unspecified COPD type J44.9 Active 44922588 Problem Allergic rhinitis, unspecified allergic rhinitis trigger, unspecified rhinitis seasonality J30.9 Active 30289583 Problem Mixed hyperlipidemia E78.2 Active 248444223 Problem Type 2 diabetes mellitus with diabetic neuropathy, without long-term current use of insulin E11.40 Active 93405342 ALLERGIES No Information ENCOUNTERS Encounter Location Date Diagnosis [facility] [place] [address] [facility] [id number] [address] Oct, [facility] [place] [address] [facility] [id number], [place] [address] Oct, [facility] [place] [id number] [place] [address] 44795- 1644 Oct, Chronic pain syndrome G89.4 [facility] [place] [id number] [place] [address] 57785- 8166 Oct, Community acquired bacterial pneumonia J15.9 ; Allergic rhinitis, unspecified allergic rhinitis trigger, unspecified rhinitis seasonality J30.9 ; Type 2 diabetes mellitus with diabetic neuropathy, without long-term current use of insulin E11.40 ; Chronic GERD K21.9 and Chronic obstructive pulmonary disease, unspecified COPD type J44.9 [facility] [place] [id number] [place] [address] 93942- 5664 Oct, [facility] [place] [id number] [place] [address] 43522- 0076 Oct, [facility] [place] [id number] [place] [address] 96062- 8126 Oct, [facility] [place] [id number] [place] [address] 47451- 0910 Oct, [facility] [place] [id number] [place] [address] 08806- 6106 Oct, Essential hypertension I10 [facility] [place] [id number] [place] [address] 35118- 8649 Oct, Type 2 diabetes mellitus with diabetic neuropathy, without long-term current use of insulin E11.40 ; Chronic obstructive pulmonary disease , unspecified COPD type J44.9 ; Mixed hyperlipidemia E78.2 ; Osteoarthritis of both knees, unspecified osteoarthritis type M17.0 ; Alzheimers disease with early onset G30.0 and Essential hypertension I10 [facility] [place] [id number] [place] [address] 76574- 3071 Oct, [facility] [place] [id number] [place] [address] 53266- 8426 Oct, [facility] [place] [id number] [place] [address] 72902- 4823 Oct, Yeast dermatitis B37.2 [facility] [place] [id number] [place] [address] 07941- 0514 Oct, Chronic pain syndrome G89.4 [facility] [place] [id number] [place] [address] 85092- 1722 Sep, [facility] [place] [id number] [place] [address] 19157- 3361 Sep, [facility] [place] [id number] [place] [address] 89470- 2243 Sep, Alzheimers disease with early onset G30.0 and Chronic pain syndrome G89.4 [facility] [place] [id number] [place] [address] 50164- 1636 Sep, COPD with acute exacerbation J44.1 [facility] [place] [id number] [place] [address] 56580- 8198 Sep, [facility] [place] [id number] [place] [address] 65734- 6006 Sep, [facility] [place] [id number] [place] [address] 45174- 6781 Sep, Gastroesophageal reflux disease without esophagitis K21.9 [facility] [place] [id number] [place] [address] 86560- 1229 Aug, [facility] [place] [id number] [place] [address] 34912- 8255 Aug, [facility] [place] [id number] [place] [address] 70832- 9258 Aug, 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 ; Hospital discharge follow-up Z09 ; Chronic obstructive pulmonary disease, unspecified COPD type J44.9 and Chronic GERD K21.9 [facility] [place] [address] [address] 7676 Aug, Chronic pain syndrome G89.4 [facility] [place] [id number] [place] [address] 87169- 0549 Aug, [facility] [place] [id number] [place] [address] 81546- 6772 Aug, [facility] [place] [id number] [place] [address] 30719- 4272 Aug, Chronic pain syndrome G89.4 and Alzheimers disease with early onset G30.0 [facility] [place] [address] 01704- 4554 Aug, Type 2 diabetes mellitus with diabetic neuropathy, without long-term current use of insulin E11.40 ; Chronic obstructive pulmonary disease , unspecified COPD type J44.9 ; Chronic GERD K21.9 and 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 [facility] [place] [id number] [place] [address] 32493- 6639 Aug, [facility] [place] [address] 83474- 2165 Aug, Essential hypertension I10 and Cough R05 [facility] [place] [id number] [place] [address] 15361- 2431 Aug, [facility] [place] [id number] [place] [address] 68140- 4339 Aug, [facility] [place] [id number] [place] [address] 36548- 2572 Aug, [facility] [place] [id number] [place] [address] 02464- 9275 Aug, Chronic pain syndrome G89.4 [facility] [place] [id number] [place] [address] 02692- 8795 Aug, [facility] [place] [id number] [place] [address] 83072- 7814 Aug, [facility] [place] [id number] [place] [address] 89085- 4025 July, Gastroesophageal reflux disease without esophagitis K21.9 [facility] [place] [address] [place] [address] 2633 July, [facility] [place] [id number] [place] [address] 94493- 0122 July, [facility] [place] [id number] [place] [address] 15490- 9606 July, [facility] [place] [id number] [place] [address] 08096- 1012 July, Essential hypertension I10 and Chronic pain syndrome G89.4 [facility] [id number] [place] [address] 62161- 5696 July, Gastroesophageal reflux disease without esophagitis K21.9 [facility] [id number] [place] [address] 52752- 6335 July, Alzheimers disease with early onset G30.0 [place] [address] 47150- 1747 July, Chronic obstructive pulmonary disease, unspecified COPD type J44.9 ; Nocturnal cough R05 ; 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 and Recurrent major depressive disorder, in partial 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 [place] [id number] [place] [address] 80728- 5753 July, [facility] [id number] [place] [address] 87619- 0242 July, Type 2 diabetes mellitus with diabetic neuropathy, without long-term current use of insulin E11.40 [facility] [place] [id number] [place] [address] 17503- 4907 July, Nocturnal hypoxemia G47.34 ; Chronic obstructive pulmonary disease, unspecified COPD type J44.9 and Nocturnal cough R05 [facility] [place] [id number] [place] [address] 55825- 7335 July, [facility] [place] [id number] [place] [address] 48255- 5447 July, [facility] [place] [address] [place] [address]- 9410 July, [facility] [place] [id number] [place] [address] 23144- 9996 Jun, Chronic pain syndrome G89.4 [facility] [place] [id number] [place] [address] 86321- 5688 Jun, [facility] [place] [address] 64579- 6490 Jun, [facility] [place] [id number] [place] [address] 92736- 0368 Jun, Alzheimers disease with early onset G30.0 [place] [address] 09252- 9317 Jun, [place] [id number] [place] [address] 83579- 5393 Jun, Gastroesophageal reflux disease without esophagitis K21.9 [facility] [place] [id number] [place] [address] 17752- 0738 Jun, Allergic rhinitis, unspecified allergic rhinitis trigger, unspecified rhinitis seasonality J30.9 [place] [id number] [place] [address] 42245- 5951 Jun, Chronic pain syndrome G89.4 [place] [id number] [place] [address] 97325- 2369 May, [place] [id number] [place] [address] 54962- 0887 May, COPD with acute exacerbation J44.1 [place] [id number] [place] [address] 01819- 8864 14 May, 2017 Type 2 diabetes mellitus with diabetic neuropathy, without long-term current use of insulin E11.40 ; COPD with acute exacerbation J44.1 ; Hypoxia R09.02 ; Chronic pain syndrome G89.4 ; Yeast dermatitis B37.2 ; Alzheimers disease with early onset G30.0 and 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 [facility], [place] [address] [address]- 8218 May, [facility] [place] [id number] [place] [address] 41014 2546 May, Chronic pain syndrome G89.4 [facility] [place] [id number] [place] [address] 07554 2546 May, [facility] [place] [id number] [place] [address] 39788 2546 May, [facility] [place] [id number] [place] [address] 67140- 3806 May, Mixed hyperlipidemia E78.2 [facility] [place] [id number] [place] [address] 56397- 3236 May, Chronic pain syndrome G89.4 [facility] [place] [id number] [place] [address] 98754- 0023 May, Anxiety F41.9 and Chronic pain syndrome G89.4 [facility] [place] [id number] [place] [address] 67136- 8456 Mar, [facility] [place] [id number] [place] [address] 81305- 8252 Mar, [facility] [place] [address] [address]- 1565 Mar, [facility] [place] [address] [address] 2542 Mar, [facility] [place] [id number] [place] [address] 71825- 4556 Mar, [facility] [place] [id number] [place] [address] 50771- 2540 Mar, Anxiety F41.9 and Chronic pain syndrome G89.4 [facility], [place] [address] [address]- 6893 Mar, Medicare annual wellness visit, initial Z00.00 [...] Hiatal hernia K44.9 and Actinic keratosis L57.0 [place] [address] 48873- 1134 Mar, [place] [address] 99710- 6027 Mar, Chronic pain syndrome G89.4 [place] [address] 37984- 9498 Feb, [facility] [place] [address] 37527- 4160 Feb, Chronic pain syndrome G89.4 [facility] [place] [address] 21070- 9367 Feb, [facility] [place] [id number] [place] [address] 75640- 6863 Feb, [facility] [place] [address] 08172- 7211 Feb, Anxiety F41.9 [facility] [place] [address] 37306- 4701 Feb, [place] [address] 06438- 1400 Feb, Chronic pain syndrome G89.4 [facility] [place] [id number] [place] [address] 76137- 9099 Jan, Essential hypertension I10 [facility] [place] [id number] [place] [address] 31495- 1301 Jan, Chronic pain syndrome G89.4 [place] [address] 75331- 1512 Jan, [place] [address] 23076- 3098 Jan, Anxiety F41.9 [place] [address] 23354- 7847 Jan, Encounter for immunization Z23 and Community acquired pneumonia, unspecified laterality J18.9 [place] [address] 55993- 3035 Jan, Type 2 diabetes mellitus with diabetic neuropathy, without long-term current use of insulin E11.40 [place] [address] 34314- 5263 Dec, Anxiety F41.9 and Chronic pain syndrome G89.4 [place] [address] 19561- 2532 Dec, Chronic pain syndrome G89.4 and Essential hypertension I10 [place] [id number] [place] [address] 94239- 9546 Dec, [place] [id number] [place] [address] 43615- 9709 Dec, Anxiety F41.9 [place] [id number] [place] [address] 93961- 8708 Dec, [place] [id number] [place] [address] 20611- 8201 Dec, Type 2 diabetes mellitus with diabetic neuropathy, without long-term current use of insulin E11.40 ; Lactic acidosis E87.2 ; Chronic obstructive pulmonary disease, unspecified COPD type J44.9 and Encounter for immunization Z23 [place] [address] 38198- 0451 Dec, Chronic pain syndrome G89.4 [facility] [place] [id number] [place] [address] 07663- 1937 28 Nov, 2016 [facility] [id number] [place] [address] 32834- 4157 Nov, Chronic pain syndrome G89.4 [facility] [place] [id number] [place] [address] 07709- 2817 Nov, [facility] [id number] [place] [address] 64966- 4752 Nov, [facility] [id number] [place] [address] 84485- 0714 15 Nov, 2016 Anxiety F41.9 [facility] [place] [id number] [place] [address] 57417- 0702 11 Nov, 2016 Anxiety F41.9 [facility] [place] [id number] [place] [address] 74889- 8398 08 Nov, 2016 [facility] [id number] [place] [address] 12139- 9813 05 Nov, 2016 [facility] [place] [id number] [place] [address] 71900- 2267 Nov, [facility] [place] [id number] [place] [address] 40182- 3491 Oct, [facility] [place] [id number] [place] [address] 88131- 9195 Oct, [facility] [id number] [place] [address] 50885- 6681 Oct, [facility] [id number] [place] [address] 06008- 1766 Oct, Essential hypertension I10 and Chronic pain syndrome G89.4 [facility] [place] [id number] [place] [address] 94590- 8747 Oct, Anxiety F41.9 [facility] [place] [address] [address]- 1818 Oct, [facility] [place] [id number] [place] [address] 69636- 2048 Oct, Chronic pain syndrome G89.4 [facility] [id number] [place] [address] 35247 -7079 Oct, Sore throat J02.9 and Acute nasopharyngitis (common cold) J00 [facility] [place] [id number] [place] [address] 86151- 8175 Sep, [facility] [place] [id number] [place] [address] 18658- 9942 Sep, COPD exacerbation J44.1 [facility] [place] [id number] [place] [address] 70005- 4692 Sep, Chronic pain syndrome G89.4 [facility] [place] [id number] [place] [address] 84152- 1725 Sep, Essential hypertension I10 [facility] [place] [id number] [place] [address] 80136- 0521 Sep, [facility] [place] [id number] [place] [address] 51895- 8493 Sep, [facility] [place] [id number] [place] [address] 47326- 6347 Sep, Anxiety F41.9 [facility] [place] [id number] [place] [address] 19042- 0650 Sep, Chronic pain syndrome G89.4 [facility] [place] [id number] [place] [address] 90029- 9638 Sep, [facility] [place] [id number] [place] [address] 74159- 7314 Aug, Acute seasonal allergic rhinitis, unspecified trigger J30.2 ; Hiatal hernia K44.9 and Chronic pain syndrome G89.4 [facility] [place] [address] [address]- 7705 Aug, [facility] [place] [id number] [place] [address] 29135- 3591 Aug, [facility] [place] [id number] [place] [address] 31460- 8761 Aug, Chronic obstructive pulmonary disease, unspecified COPD type J44.9 [facility] [place] [id number] [place] [address] 90408- 7735 14 Aug, 2016 Anxiety F41.9 [facility] [place] [id number] [place] [address] 15932- 5230 08 Aug, 2016 Chronic pain syndrome G89.4 [facility] [place] [id number] [place] [address] 64461- 9693 07 Aug, 2016 Hiatal hernia K44.9 and Actinic keratosis L57.0 [facility] [place] [id number] [place] [address] 49062- 2655 Aug, [facility] [place] [id number] [place] [address] 32113- 4223 Aug, Anxiety F41.9 [facility] [place] [id number] [place] [address] 23021- 9598 July, [facility] [place] [id number] [place] [address] 68712- 0431 July, Hiatal hernia K44.9 [facility] [place] [id number] [place] [address] 50477- 3366 July, [facility] [place] [id number] [place] [address] 48186- 6535 July, Anxiety F41.9 and Chronic pain syndrome G89.4 [facility] [place] [id number] [place] [address] 73545- 4226 July, [facility] [place] [id number] [place] [address] 97349- 7970 Jun, Chronic pain syndrome G89.4 [facility], [place] [id number] [place] [address] 25271- 9623 Jun, Chronic pain syndrome G89.4 [facility], [place] [id number] [place] [address] 56493- 3473 Jun, [facility], [place] [id number] [place] [address] [id number]- 4493 Jun, Anxiety F41.9 [facility], [place] [id number] [place] [address] 32025- 9844 Jun, Allergic rhinitis, unspecified allergic rhinitis trigger, unspecified rhinitis seasonality J30.9 [facility], [place] [id number] [place] [address] 20622- 6227 Jun, [facility], [place] [id number] [place] [address] 64796- 5639 May, Chronic pain syndrome G89.4 [facility], [place] [id number] [place] [address] 08723- 2899 May, [facility], [place] [id number] [place] [address] [phone]- 2408 May, [facility], [place] [id number] [place] [address] 70200- 6873 May, Anxiety F41.9 [facility], [place] [id number] [place] [address] [id number]- 0536 May, Type 2 diabetes mellitus with diabetic [...] G89.4 [facility], [place] [id number] [place] [address] 50209- 5869 May, Essential hypertension I10 ; Type 2 diabetes mellitus with diabetic neuropathy, without long-term current use of insulin E11.40 ; Mixed hyperlipidemia E78.2 ; Chronic obstructive pulmonary disease, unspecified COPD type J44.9 and Chronic GERD K21.9 [facility] [id number] [place] [address] [phone]- 1526 May, [place] [facility] [address] [address]- [address]227 May, [facility] [id number] [place] [address] 68633- 7017 May, Type 2 diabetes mellitus with diabetic neuropathy, without long-term current use of insulin E11.40 [facility] [id number] [place] [address] 87095- 4478 May, Dementia without behavioral disturbance, unspecified dementia type F03.90 [facility] [id number] [place] [address] 32057- 1294 May, Type 2 diabetes mellitus with diabetic neuropathy, without long-term current use of insulin E11.40 ; Essential hypertension I10 ; Mixed hyperlipidemia E78.2 ; Chronic obstructive pulmonary disease, unspecified COPD type J44.9 ; Chronic GERD K21.9 and Osteoarthritis of both knees, unspecified osteoarthritis type M17.0 [facility] [id number] [place] [address] [phone]- 3961 May, [facility] [facility] [id number] [place] [address] 49154- 7811 May, [place] [id number] [place] [address] 52297- 2062 May, Anxiety F41.9 and Unspecified symptoms and signs involving cognitive functions and awareness R41.9 [place] [id number] [place] [address] 04723- 4586 May, [place] [address] [address]- [address]87 14 May, 2016 Type 2 diabetes mellitus with diabetic neuropathy, without long-term current use of insulin E11.40 ; Anxiety F41.9 and Chronic obstructive pulmonary disease, unspecified COPD type J44.9 [place] [id number] [place] [address] 83004- 0709 May, [place] [id number] [place] [address] 87253- 7837 May, [place] [address] 27093- 1004 May, [place] [address] 56920- 9003 May, Chronic obstructive pulmonary disease, unspecified COPD type J44.9 [facility] [id number] [place] [address] 06731- 7706 Mar, [place] [address] 08464- 6519 Mar, Arthritis of both knees M19.90 [place] [address] 79941- 8877 Mar, Type 2 diabetes mellitus with diabetic neuropathy, without long-term current use of insulin E11.40 [facility] [id number] [place] [address] 58565- 5906 Mar, [place] [address] 48634- 1809 Mar, Neck pain M54.2 and Weakness generalized R53.1 [place] [address] 62121- 5703 Mar, [place] [address] 14347- 2031 Mar, Cervicalgia M54.2 and Impacted cerumen of both ears H61.23 [place] [address] 63265- 7441 Mar, [facility], [place] [address] [address] Mar, Type 2 diabetes mellitus with diabetic neuropathy, without long-term current use of insulin E11.40 [facility], [place] [address], [place] [address] 0101 Feb, [facility], [place] [id number] [place] [address] 98532- 5734 Feb, Hypoxia R09.02 [facility], [place] [id number] [place] [address] 58513- 0340 Feb, [facility], [place] [id number] [place] [address] 06473- 2469 Feb, [facility], [place] [id number] [address] 7884 Feb, [facility], [place] [id number] [place] [address] 63149- 8138 Feb, Type 2 diabetes mellitus with diabetic neuropathy, without long-term current use of insulin E11.40 [facility], [place] [address], [place] [address] 3454 Feb, Osteoarthritis of both knees, unspecified osteoarthritis type M17.0 [facility], [place] [address] [address]- 5048 Feb, [facility], [place] [id number] [place] [address] 1123 Feb, [facility], [place] [id number] [address]- 2422 Feb, [facility], [place] [id number] [place] [address] 99768- 7413 Jan, [facility], [place] [id number] [address] 8212 Jan, [facility], [place] [address] 68647- 0004 Jan, [facility], [place] [address] 23290- 8806 Jan, [facility], [place] [address] 73222- 2138 Jan, Tinea pedis of both feet B35.3 [place] [address] 12945- 9057 03 Jan, 2016 Type 2 diabetes mellitus [...] seasonality J30.9 and Encounter for immunization Z23 [place] [address] 83662- 7813 Jan, [place] [address] 22669- 2803 Jan, [facility], [place] [address] 71119- 8579 Dec, [facility], [place] [address] 88042- 8655 Dec, [facility] [address] 69[address] -8098 Dec, Unspecified asthma with (acute) exacerbation J45.901 and Chronic obstructive pulmonary disease with (acute) exacerbation J44.1 [place] [address] 09162- 0084 Dec, Arthritis of both knees M19.90 and Acute medial meniscus tear, right, initial encounter S83.241A [facility], [place] [id number] [place] [address] 20558- 7595 Dec, [facility], [place] [id number] [place] [address] 02600- 1581 14 Dec, 2015 [facility], [place] [id number] [place] [address] 83445- 8235 14 Dec, 2015 [facility], [place] [id number] [place] [address] 97949- 0550 Dec, [facility], [place] [id number] [place] [address] 76146- 1778 Dec, History of pneumonia Z87.01 [facility], [place] [id number] [place] [address] 56563- 6671 Dec, [facility], [place] [id number] [place] [address] 94237- 0923 Dec, [facility], [place] [id number] [place] [address] 45789- 3447 05 Dec, 2015 [facility], [place] [id number] [place] [address] 67313- 7097 Dec, [facility], [place] [id number] [place] [address] 90540- 6654 Dec, [facility], [place] [id number] [place] [address] 43001- 2397 Dec, [facility], [place] [id number] [place] [address] 97362- 7712 30 Nov, 2015 Cough R05 and Pneumonia due to infectious organism, unspecified laterality, unspecified part of lung J18.9 [facility], [place] [id number] [place] [address] 85215- 9913 28 Nov, 2015 [facility], [place] [id number] [place] [address] 09931- 6321 22 Nov, 2015 Type 2 diabetes mellitus [...] J30.9 [facility], [place] [address] [facility] [id number] [address]- 1515 12 Nov, 2015 IMMUNIZATIONS No Known Immunizations SOCIAL HISTORY Never Assessed REASON FOR VISIT Requests return call PLAN OF CARE VITAL SIGNS MEDICATIONS Unknown Medications RESULTS No Results PROCEDURES No Known procedures INSTRUCTIONS MEDICATIONS ADMINISTERED No Known Medications MEDICAL (GENERAL) HISTORY Type Description Date Medical History hypertension Medical History chronic obstructive pulmonary disease (COPD)-wears 2L O2 per [place], uses [place] for home O2 Medical History Arthritis-knees and [...] TIA, [facility] 2014 Hospitalization History COPD exacerbation--[facility] 12/27/2015 [facility] - [facility] 02/2016 [facility] History [facility] pneumonia 11/2016 Hospitalization History COPD exacerbation - Dr Hartley Attending 12/2016 Hospitalization History Cough- [facility] 04/10/2017 [facility] - Possible Pneumonia 06/2017 Hospitalization History COPD hiatal hernia 08/2017
--- OUTSIDE RECORDS SUMMARY | 2018-01-05 16:00 | XMS REPORT ---
Author Author DARIN HARTLEY Organization [facility] Address [address] 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 Active 406401942037671 Problem Nocturnal hypoxemia G47.34 Active 339741814 Problem Gastroesophageal reflux disease without esophagitis K21.9 Active 545868339 Problem Recurrent major depressive disorder, in partial 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 Active 13520637 Problem 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 Active 982703776 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 Active 7992366 Problem Hypoxia R09.02 Active 461487124 Problem Elevated transaminase level R74.0 Active 005723220 Problem 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 Active 110237203 Problem Essential hypertension I10 Active 07475824 Problem Anxiety F41.9 Active 12701571 Problem Chronic obstructive pulmonary disease, unspecified COPD type J44.9 Active 05369369 Problem Allergic rhinitis, unspecified allergic rhinitis trigger, unspecified rhinitis seasonality J30.9 Active 56903826 Problem Mixed hyperlipidemia E78.2 Active 454656415 Problem Type 2 diabetes mellitus with diabetic neuropathy, without long-term current use of insulin E11.40 Active 10606699 ALLERGIES No Information ENCOUNTERS Encounter Location Date Diagnosis [facility] [address] [facility] [id number] [place] [address] Oct, Community acquired bacterial pneumonia J15.9 ; Allergic rhinitis, unspecified allergic rhinitis trigger, unspecified rhinitis seasonality J30.9 ; Type 2 diabetes mellitus with diabetic neuropathy, without long-term current use of insulin E11.40 ; Chronic GERD K21.9 and Chronic obstructive pulmonary disease, unspecified COPD type J44.9 [facility] [id number] [place] [address] 44430- 8033 Oct, [facility] [id number] [place] [address] 90645- 7444 Oct, [facility] [id number] [place] [address] 93458- 9300 Oct, [facility] [id number] [place] [address] 23698- 5225 Oct, [facility] [id number] [place] [address] 35016- 5334 Oct, Essential hypertension I10 [facility] [id number] [place] [address] 78009- 3314 Oct, Type 2 diabetes mellitus with diabetic neuropathy, without long-term current use of insulin E11.40 ; Chronic obstructive pulmonary disease , unspecified COPD type J44.9 ; Mixed hyperlipidemia E78.2 ; Osteoarthritis of both knees, unspecified osteoarthritis type M17.0 ; Alzheimers disease with early onset G30.0 and Essential hypertension I10 [facility] [id number] [place] [address] 51074- 8495 Oct, [facility] [id number] [place] [address] 28913- 0132 Oct, [facility] [id number] [place] [address] 94237- 4315 Oct, Yeast dermatitis B37.2 [facility] [id number] [place] [address] 63699- 5587 Oct, Chronic pain syndrome G89.4 [facility] [id number] [place] [address] 02473- 8426 Sep, [facility] [id number] [place] [address] 84678- 1456 Sep, [facility] [address] [address] Sep, Alzheimers disease with early onset G30.0 and Chronic pain syndrome G89.4 [facility] [address] [address] 6[address] Sep, COPD with acute exacerbation J44.1 [facility] [id number] [place] [address] 95057- 7557 Sep, [facility] [id number] [place] [address] 22815- 0775 Sep, [facility] [id number] [place] [address] 50099- 2353 Sep, Gastroesophageal reflux disease without esophagitis K21.9 [facility] [id number] [place] [address] 31872- 3668 Aug, [facility] [id number] [place] [address] 35478- 6925 Aug, [facility] [id number] [place] [address] 37951- 3389 Aug, 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 ; Hospital discharge follow-up Z09 ; Chronic obstructive pulmonary disease, unspecified COPD type J44.9 and Chronic GERD K21.9 [facility] [address] [address] 9533 Aug, Chronic pain syndrome G89.4 [facility] [address] [address] 4600 Aug, [facility] [address] [address] 6273 Aug, [facility] [address] [address] 6845 Aug, Chronic pain syndrome G89.4 and Alzheimers disease with early onset G30.0 [facility] [id number] [place] [address] 71809- 9058 18 Aug, 2017 Type 2 diabetes mellitus with diabetic neuropathy, without long-term current use of insulin E11.40 ; Chronic obstructive pulmonary disease , unspecified COPD type J44.9 ; Chronic GERD K21.9 and 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 [facility] [id number] [place] [address] 90641- 8761 Aug, [facility] [address] 56357- 7991 Aug, Essential hypertension I10 and Cough R05 [facility] [address] 79004- 9657 Aug, [facility] [id number] [place] [address] 75294- 8940 Aug, [facility] [id number] [place] [address] 91580- 4906 Aug, [facility] [id number] [place] [address] 37587- 0503 Aug, Chronic pain syndrome G89.4 [facility] [id number] [place] [address] 14646- 3658 Aug, [facility] [id number] [place] [address] 90967- 2749 Aug, [facility] [id number] [place] [address] 52765- 3438 July, Gastroesophageal reflux disease without esophagitis K21.9 [facility] [id number] [place] [address] 44976- 9771 July, [facility] [id number] [place] [address] 10565- 4428 July, [facility] [id number] [place] [address] 61457- 2710 July, [facility] [id number] [place] [address] 38068- 2803 July, Essential hypertension I10 and Chronic pain syndrome G89.4 [facility] [id number] [place] [address] 20083- 1296 July, Gastroesophageal reflux disease without esophagitis K21.9 [facility] [id number] [place] [address] 21753- 3978 July, Alzheimers disease with early onset G30.0 [facility] [address] 52037- 3941 July, Chronic obstructive pulmonary disease, unspecified COPD type J44.9 ; Nocturnal cough R05 ; 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 and Recurrent major depressive disorder, in partial 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 [facility] [id number] [place] [address] 47516- 4653 July, [facility] [address] 32472- 3764 July, Type 2 diabetes mellitus with diabetic neuropathy, without long-term current use of insulin E11.40 [facility] [id number] [place] [address] 06775- 5787 July, Nocturnal hypoxemia G47.34 ; Chronic obstructive pulmonary disease, unspecified COPD type J44.9 and Nocturnal cough R05 [facility] [id number] [place] [address] 01460- 4246 July, [facility] [id number] [place] [address] 04641- 7051 July, [facility] [id number] [place] [address] 20386- 8611 July, [facility] [id number] [place] [address] 45361- 7074 Jun, Chronic pain syndrome G89.4 [facility] [id number] [place] [address] 00793- 5292 Jun, [facility] [address] [place] [address]- 7818 Jun, [facility] [id number] [place] [address] 12001- 9824 Jun, Alzheimers disease with early onset G30.0 [facility] [address] 67010- 1117 Jun, [facility] [address] 93606- 7889 Jun, Gastroesophageal reflux disease without esophagitis K21.9 [facility] [address] 50075- 9316 04 Jun, 2017 Allergic rhinitis, unspecified allergic rhinitis trigger, unspecified rhinitis seasonality J30.9 [facility] [address] 51660- 1564 Jun, Chronic pain syndrome G89.4 [facility] [address] 76987- 8906 May, [facility] [address] 08258- 0586 May, COPD with acute exacerbation J44.1 [facility] [address] 11196- 5959 14 May, 2017 Type 2 diabetes mellitus with diabetic neuropathy, without long-term current use of insulin E11.40 ; COPD with acute exacerbation J44.1 ; Hypoxia R09.02 ; Chronic pain syndrome G89.4 ; Yeast dermatitis B37.2 ; Alzheimers disease with early onset G30.0 and 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 [facility] [id number] [place] [address] 63760- 6642 May, [facility] [id number] [place] [address] 84464- 3096 May, Chronic pain syndrome G89.4 [facility] [id number] [place] [address] 32649- 2913 May, [facility] [address] [address]- 6036 May, [facility] [id number] [place] [address] 56468- 8476 May, Mixed hyperlipidemia E78.2 [facility] [id number] [place] [address] 58065- 3698 May, Chronic pain syndrome G89.4 [facility] [id number] [place] [address] 92249- 6306 May, Anxiety F41.9 and Chronic pain syndrome G89.4 [facility] [id number] [place] [address] 64539- 9576 Mar, [facility] [id number] [place] [address] 25888- 3733 Mar, [facility] [id number] [place] [address] 80820- 6360 Mar, [facility] [id number] [place] [address] 93910- 8211 Mar, [facility] [id number] [place] [address] 46455- 5705 Mar, [facility] [address] [address]- 5991 Mar, Anxiety F41.9 and Chronic pain syndrome G89.4 [facility] [address] [address]- 3804 Mar, Medicare annual wellness visit, initial Z00.00 [...] keratosis L57.0 [facility] [id number] [place] [address] 37696- 6521 Mar, [facility] [id number] [place] [address] 63938- 8061 Mar, Chronic pain syndrome G89.4 [facility] [id number] [place] [address] 87738 2546 Feb, [facility] [address] 51042- 3316 Feb, Chronic pain syndrome G89.4 [facility] [id number] [place] [address] 52126- 8308 Feb, [facility] [id number] [place] [address] 07110- 5600 Feb, [facility] [id number] [place] [address] 66580- 7156 Feb, Anxiety F41.9 [facility] [id number] [place] [address] 96887- 9414 Feb, [facility] [id number] [place] [address] 69049- 4841 Feb, Chronic pain syndrome G89.4 [facility] [id number] [place] [address] 89927 2545 Jan, Essential hypertension I10 [facility] [id number] [place] [address] 32784- 4487 Jan, Chronic pain syndrome G89.4 [facility] [id number] [place] [address] 78825- 5346 Jan, [facility] [id number] [place] [address] 41355- 1973 Jan, Anxiety F41.9 [facility] [id number] [place] [address] 66219- 1122 Jan, Encounter for immunization Z23 and Community acquired pneumonia, unspecified laterality J18.9 [facility] [address] 33604- 9137 Jan, Type 2 diabetes mellitus with diabetic neuropathy, without long-term current use of insulin E11.40 [facility] [address] 53313- 4766 Dec, Anxiety F41.9 and Chronic pain syndrome G89.4 [facility] [address] 79939- 4154 Dec, Chronic pain syndrome G89.4 and Essential hypertension I10 [facility] [address] 46742- 3254 Dec, [facility] [address] 33882- 6721 Dec, Anxiety F41.9 [facility] [address] 17859- 9741 Dec, [facility] [address] 26057- 4712 Dec, Type 2 diabetes mellitus with diabetic neuropathy, without long-term current use of insulin E11.40 ; Lactic acidosis E87.2 ; Chronic obstructive pulmonary disease, unspecified COPD type J44.9 and Encounter for immunization Z23 [facility] [id number] [place] [address] 68578- 0125 Dec, Chronic pain syndrome G89.4 [facility] [address] 56036- 8621 Nov, [facility] [address] 82218- 1968 Nov, Chronic pain syndrome G89.4 [facility] [address] [place] [address]- 7475 Nov, [facility] [id number] [place] [address] 29249- 5169 Nov, [facility] [id number] [place] [address] 18003- 8681 15 Nov, 2016 Anxiety F41.9 [facility] [id number] [place] [address] 50509- 7881 11 Nov, 2016 Anxiety F41.9 [facility] [id number] [place] [address] 55626- 0909 08 Nov, 2016 [facility] [id number] [place] [address] 63747- 9469 05 Nov, 2016 [facility] [id number] [place] [address] 94345- 2824 Nov, [facility] [id number] [place] [address] 84675- 2313 Oct, [facility] [id number] [place] [address] 73356- 6044 Oct, [facility] [id number] [place] [address] 02920- 9220 Oct, [facility] [id number] [place] [address] 68412- 5530 Oct, Essential hypertension I10 and Chronic pain syndrome G89.4 [facility] [id number] [place] [address] 56647- 0083 Oct, Anxiety F41.9 [facility] [id number] [place] [address] 77228- 5692 Oct, [facility] [id number] [place] [address] 71067- 4134 Oct, Chronic pain syndrome G89.4 [facility] [id number] [place] [address] 89185 -1336 Oct, Sore throat J02.9 and Acute nasopharyngitis (common cold) J00 [facility] [id number] [place] [address] 54561- 0173 Sep, [facility] [id number] [place] [address] 63944- 5720 Sep, COPD exacerbation J44.1 [facility] [id number] [place] [address] 23938- 6748 Sep, Chronic pain syndrome G89.4 [facility] [id number] [place] [address] 35058- 4546 Sep, Essential hypertension I10 [facility] [address] 70255- 7387 Sep, [facility] [address] 96723- 9751 Sep, [facility] [address] 89649- 6823 Sep, Anxiety F41.9 [facility] [id number] [place] [address] 69866- 3502 Sep, Chronic pain syndrome G89.4 [facility] [id number] [place] [address] 44922- 2809 Sep, [facility] [id number] [place] [address] 52897- 6955 Aug, Acute seasonal allergic rhinitis, unspecified trigger J30.2 ; Hiatal hernia K44.9 and Chronic pain syndrome G89.4 [facility] [id number] [place] [address] 73192- 3494 Aug, [facility] [id number] [place] [address] 02014- 7819 Aug, [facility] [id number] [place] [address] 07878- 0919 Aug, Chronic obstructive pulmonary disease, unspecified COPD type J44.9 [facility] [address] [address]- 4238 14 Aug, 2016 Anxiety F41.9 [facility] [id number] [place] [address] 31508- 2709 08 Aug, 2016 Chronic pain syndrome G89.4 [facility] [id number] [place] [address] 06288- 0231 07 Aug, 2016 Hiatal hernia K44.9 and Actinic keratosis L57.0 [facility] [id number] [place] [address] 18027- 3788 07 Aug, 2016 [facility] [id number] [place] [address] 18574- 2885 Aug, Anxiety F41.9 [facility] [id number] [place] [address] 93648- 0684 July, [facility] [id number] [place] [address] 71860- 7215 July, Hiatal hernia K44.9 [facility] [id number] [place] [address] 37994- 2181 July, [facility] [id number] [place] [address] 36494- 2759 July, Anxiety F41.9 and Chronic pain syndrome G89.4 [facility] [id number] [place] [address] 77435- 4973 July, [facility] [id number] [place] [address] 19909- 2902 Jun, Chronic pain syndrome G89.4 [facility] [id number] [place] [address] 73884- 2678 Jun, Chronic pain syndrome G89.4 [facility] [id number] [place] [address] 33914- 4822 Jun, [facility] [address] [address]- 9545 Jun, Anxiety F41.9 [facility] [id number] [place] [address] 96608- 6895 Jun, Allergic rhinitis, unspecified allergic rhinitis trigger, unspecified rhinitis seasonality J30.9 [facility] [id number] [place] [address] 60398- 1898 Jun, [facility] [id number] [place] [address] 32163- 9219 May, Chronic pain syndrome G89.4 [facility] [id number] [place] [address] 56936- 1890 May, [facility] [id number] [place] [address] 63612- 5536 May, [facility] [id number] [place] [address] 81675- 1592 May, Anxiety F41.9 [facility] [id number] [place] [address] 19471- 1144 May, Type 2 diabetes mellitus with diabetic [...] syndrome G89.4 [facility] [address] [address]- 6157 May, Essential hypertension I10 ; Type 2 diabetes mellitus with diabetic neuropathy, without long-term current use of insulin E11.40 ; Mixed hyperlipidemia E78.2 ; Chronic obstructive pulmonary disease, unspecified COPD type J44.9 and Chronic GERD K21.9 [facility] [id number] [place] [address] 48730- 3144 May, [facility] [id number] [place] [address] 34050- 6683 May, [facility] [id number] [place] [address] 9507 May, Type 2 diabetes mellitus with diabetic neuropathy, without long-term current use of insulin E11.40 [facility] [id number] [place] [address] 38259- 9624 May, Dementia without behavioral disturbance, unspecified dementia type F03.90 [facility] [id number] [place] [address] 66873- 5805 May, Type 2 diabetes mellitus with diabetic neuropathy, without long-term current use of insulin E11.40 ; Essential hypertension I10 ; Mixed hyperlipidemia E78.2 ; Chronic obstructive pulmonary disease, unspecified COPD type J44.9 ; Chronic GERD K21.9 and Osteoarthritis of both knees, unspecified osteoarthritis type M17.0 [facility] [id number] [place] [address] 34039- 1792 May, [facility] [id number] [place] [address] 19521- 1227 May, [facility] [id number] [place] [address] 57558- 0434 May, Anxiety F41.9 and Unspecified symptoms and signs involving cognitive functions and awareness R41.9 [facility] [id number] [place] [address] 89799- 6164 May, [facility] [id number] [place] [address] 52822- 8195 May, Type 2 diabetes mellitus with diabetic neuropathy, without long-term current use of insulin E11.40 ; Anxiety F41.9 and Chronic obstructive pulmonary disease, unspecified COPD type J44.9 [facility] [id number] [place] [address] 82730- 8032 May, [facility] [id number] [place] [address] 45628- 1033 May, [facility] [id number] [place] [address] 14897- 4734 May, [facility] [id number] [place] [address] 27950- 3366 May, Chronic obstructive pulmonary disease, unspecified COPD type J44.9 [place] [address] [address]250- 1766 Mar, [place] [address] 37639- 5582 Mar, Arthritis of both knees M19.90 [place] [address] 37441- 6508 Mar, Type 2 diabetes mellitus with diabetic neuropathy, without long-term current use of insulin E11.40 [place] [address] 97903- 6093 Mar, [place] [address] 16368- 1416 Mar, Neck pain M54.2 and Weakness generalized R53.1 [place] [address] 02667- 0169 Mar, [place] [address] [id number] [place] [address] 29104- 7330 Mar, Cervicalgia M54.2 and Impacted cerumen of both ears H61.23 [place] [address] [id number] [place] [address] 71888- 1262 Mar, [place] [address] 85697- 1260 Mar, Type 2 diabetes mellitus with diabetic neuropathy, without long-term current use of insulin E11.40 [place] [address] [place] [id number] [place] [address] 90451- 2957 Feb, [place] [address] [id number] [address] 28 Feb, 2016 Hypoxia R09.02 [facility] [id number] [place] [address]- 1521 23 Feb, 2016 [facility] [id number] [address] 20 Feb, 2016 [facility] [id number] [place] [address]19- 3379 19 Feb, 2016 [facility] [id number] [place] [address] 13268- 9877 16 Feb, 2016 Type 2 diabetes mellitus with diabetic neuropathy, without long-term current use of insulin E11.40 [facility] [id number] [place] [address]52- 3897 15 Feb, 2016 Osteoarthritis of both knees, unspecified osteoarthritis type M17.0 [facility] [id number] [place] [address] 26527- 6637 14 Feb, 2016 [facility] [id number] [place] [address] 09124- 7550 12 Feb, 2016 [facility] [id number] [place] [address] 64390- 6677 09 Feb, 2016 [facility] [id number] [address] 15 Jan, 2016 [facility] [id number] [address] 15 Jan, 2016 [facility] [address] [address] 1271 14 Jan, 2016 [facility] [id number] [place] [address]89- 9284 14 Jan, 2016 [facility] [address] [address] 10 Jan, 2016 Tinea pedis of both feet B35.3 [facility] [address] [address] Jan, Type 2 diabetes mellitus with diabetic [...] seasonality J30.9 and Encounter for immunization Z23 [place] [address] [address] Jan, [address] [address] Jan, [place] [address] [address] Dec, [place] [address] [address] Dec, [facility] [address] [address] Dec, Unspecified asthma with (acute) exacerbation J45.901 and Chronic obstructive pulmonary disease with (acute) exacerbation J44.[address] [address] Dec, Arthritis of both knees M19.90 and Acute medial meniscus tear, right, initial encounter S83.241A [address] [address]- 7946 Dec, [address] [address]- [address] Dec, [place] [address] [address] 6[address] Dec, [address] [id number] [address] Dec, [place] [id number] [place] [address]- 4781 Dec, History of pneumonia Z87.01 [facility] [id number] [place] [address]- [address] Dec, [facility] [address] [address]- [address] Dec, [facility] [id number] [place] [address]19- 3208 Dec, [place] [id number] [place] [address]1847- 8809 Dec, [facility] [id number] [place] [address] 28698- 3179 Dec, [place] [id number] [place] [address] 83058- 2263 Dec, [facility] [id number] [place] [address]- 5536 Nov, Cough R05 and Pneumonia due to infectious organism, unspecified laterality, unspecified part of lung J18.9 [place] [id number] [place] [address]- 9[address] Nov, [place] [id number] [place] [address] 18391- 0226 Nov, Type 2 diabetes mellitus with diabetic [...] allergic rhinitis trigger, unspecified rhinitis seasonality J30.9 [facility] [place] [address] [facility] [place] [id number] [place] [address] 12 Nov, 2015 IMMUNIZATIONS No Known Immunizations SOCIAL HISTORY Never Assessed REASON FOR VISIT CCM note re referral PLAN OF CARE VITAL SIGNS MEDICATIONS Unknown Medications RESULTS No Results PROCEDURES No Known procedures INSTRUCTIONS MEDICATIONS ADMINISTERED No Known Medications MEDICAL (GENERAL) HISTORY Type Description Date Medical History hypertension Medical History chronic obstructive pulmonary disease (COPD)-wears 2L O2 per [place], uses [employer] for home O2 Medical History [...] History TURP 2003 Surgical History EGD Colon[place] [facility] [place]/06/2016 Hospitalization History TIA, [facility] 2014 Hospitalization History COPD exacerbation--[facility] 12/27/2015 [facility] 02/2016 [facility] History [facility] pneumonia 11/2016 Hospitalization History COPD exacerbation - Dr Hartley Attending 12/2016 Hospitalization History Cough- [facility] [place] 04/10/2017 Hospitalization History [facility] - Possible Pneumonia 06/2017 Hospitalization History COPD hiatal hernia 08/2017
--- OUTSIDE RECORDS SUMMARY | 2018-01-05 16:01 | XMS REPORT ---
Author Author DARIN HARTLEY Organization [facility] Address [address] [place] [address] Care Team Providers Care Employee Relations Administrator Name Role Phone DARIN HARTLEY Unavailable PROBLEMS Type Condition ICD9-CM Code [id number] Code Onset Dates Condition Status SNOMED Code Problem Osteoarthritis of both knees, unspecified osteoarthritis type M17.0 Active 102479066 Problem Chronic GERD K21.9 Active 447186750 Problem Chronic pain syndrome G89.4 Active 591497573 Problem 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 Active 173803079 Problem 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 Active 555850337920896 Problem Nocturnal hypoxemia G47.34 Active 214519409 Problem Gastroesophageal reflux disease without esophagitis K21.9 Active 386253413 Problem Recurrent major depressive disorder, in partial 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 Active 44568704 Problem 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 Active 812957816 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 Active 7612620 Problem Hypoxia R09.02 Active 099262585 Problem Elevated transaminase level R74.0 Active 742148434 Problem 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 Active 577492117 Problem Essential hypertension I10 Active 22754712 Problem Anxiety F41.9 Active 69941253 Problem Chronic obstructive pulmonary disease, unspecified COPD type J44.9 Active 87948574 Problem Allergic rhinitis, unspecified allergic rhinitis trigger, unspecified rhinitis seasonality J30.9 Active 09203211 Problem Mixed hyperlipidemia E78.2 Active 742219157 Problem Type 2 diabetes mellitus with diabetic neuropathy, without long-term current use of insulin E11.40 Active 79213888 ALLERGIES Substance Reaction Event Type Date Status Hydrocodone-Acetaminophen Unknown Drug Allergy Aug, Active Codeine Sulfate Unknown Drug Allergy Aug, Active Aspirin Unknown Drug Allergy Aug, Active ENCOUNTERS Encounter Location Date Diagnosis [facility] [address] [facility] [id number] [address] Oct, Community acquired bacterial pneumonia J15.9 ; Allergic rhinitis, unspecified allergic rhinitis trigger, unspecified rhinitis seasonality J30.9 ; Type 2 diabetes mellitus with diabetic neuropathy, without long-term current use of insulin E11.40 ; Chronic GERD K21.9 and Chronic obstructive pulmonary disease, unspecified COPD type J44.9 [place] [address] 84318- 0460 Oct, [place] [address] 68280- 6906 Oct, [place] [address] 38759- 5358 Oct, [place] [address] 98918- 8229 Oct, [place] [address] 41254- 1864 Oct, Essential hypertension I10 [place] [address] 94662- 3666 Oct, Type 2 diabetes mellitus with diabetic neuropathy, without long-term current use of insulin E11.40 ; Chronic obstructive pulmonary disease , unspecified COPD type J44.9 ; Mixed hyperlipidemia E78.2 ; Osteoarthritis of both knees, unspecified osteoarthritis type M17.0 ; Alzheimers disease with early onset G30.0 and Essential hypertension I10 [place] [address] [place] [id number] [place] [address] 53726- 0292 Oct, [place] [address] [place] [id number] [place] [address] 08865- 1591 Oct, [place] [address] 83538- 0425 Oct, Yeast dermatitis B37.2 [place] [address] [place] [id number] [place] [address] 18146- 7585 Oct, Chronic pain syndrome G89.4 [place] [address] 81027- 2212 Sep, [facility] [address] [place] [address] 04279- 0254 Sep, [facility] [address] [id number] [place] [address] 79991- 2501 Sep, Alzheimers disease with early onset G30.0 and Chronic pain syndrome G89.4 [facility] [address] [id number] [place] [address] 77138- 4240 Sep, COPD with acute exacerbation J44.1 [facility] [address] [place] [address] 08278- 2050 Sep, [facility] [address] [id number] [place] [address] 49312- 7174 Sep, [facility] [address] [address] [id number] [place] [address] 00368- 2990 Sep, Gastroesophageal reflux disease without esophagitis K21.9 [facility] [address] [id number] [place] [address] 78555- 9015 Aug, [facility] [address] [id number] [place] [address] 44493- 0076 Aug, [facility] [address] [id number] [place] [address] 32757- 5310 Aug, 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 ; Hospital discharge follow-up Z09 ; Chronic obstructive pulmonary disease, unspecified COPD type J44.9 and Chronic GERD K21.9 [facility] [address] [address] 8937 Aug, Chronic pain syndrome G89.4 [facility] [address] [id number] [place] [address] 22546- 3926 Aug, [facility] [address] [address] 9031 Aug, [facility] [address] [id number] [place] [address] 47375- 4274 Aug, Chronic pain syndrome G89.4 and Alzheimers disease with early onset G30.0 [facility] [address] 65876- 1517 Aug, Type 2 diabetes mellitus with diabetic neuropathy, without long-term current use of insulin E11.40 ; Chronic obstructive pulmonary disease , unspecified COPD type J44.9 ; Chronic GERD K21.9 and 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 [facility] [address] 50374- 7673 Aug, [facility] [address] 53263- 8313 Aug, Essential hypertension I10 and Cough R05 [facility] [address] 19120- 8850 Aug, [facility] [address] 44929- 0090 Aug, [facility] [address] 05951- 5293 Aug, [facility] [address] 30863- 4158 Aug, Chronic pain syndrome G89.4 [facility] [address] [id number] [place] [address] 75821- 3999 Aug, [facility] [address] 23672- 2440 Aug, [facility] [address] [id number] [place] [address] 89151- 1984 July, Gastroesophageal reflux disease without esophagitis K21.9 [facility] [address] 15518- 7776 July, [facility] [address] 81681- 1703 July, [facility] [address] [place] [address]- 6701 July, [place] [address] [place] [id number] [place] [address] 52778- 1976 July, Essential hypertension I10 and Chronic pain syndrome G89.4 [place] [address] [place] [id number] [place] [address] 15746- 3124 July, Gastroesophageal reflux disease without esophagitis K21.9 [place] [address] 02466- 5302 July, Alzheimers disease with early onset G30.0 [place] [address] 43055- 6722 July, Chronic obstructive pulmonary disease, unspecified COPD type J44.9 ; Nocturnal cough R05 ; 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 and Recurrent major depressive disorder, in partial 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 [place] [address] 64325- 3388 July, [place] [address] [place] [id number] [place] [address] 68662- 7416 July, Type 2 diabetes mellitus with diabetic neuropathy, without long-term current use of insulin E11.40 [place] [address] [place] [id number] [place] [address] 68546- 7093 July, Nocturnal hypoxemia G47.34 ; Chronic obstructive pulmonary disease, unspecified COPD type J44.9 and Nocturnal cough R05 [place] [address] [place] [id number] [place] [address] 28103- 0173 July, [place] [address] [place] [id number] [place] [address] 66520- 4514 July, [place] [address] [place] [id number] [place] [address] 62339- 4187 July, [place] [address] [place] [id number] [place] [address] 34999- 2461 Jun, Chronic pain syndrome G89.4 [place] [address] [place] [id number] [place] [address] 82940- 5821 Jun, [place] [address] 72244- 2616 Jun, [place] [address] 05005- 1679 Jun, Alzheimers disease with early onset G30.0 [place] [address] 33210- 7197 Jun, [place] [address] 31535- 9698 Jun, Gastroesophageal reflux disease without esophagitis K21.9 [place] [address] 38557- 1138 Jun, Allergic rhinitis, unspecified allergic rhinitis trigger, unspecified rhinitis seasonality J30.9 [place] [address] 05785- 2967 Jun, Chronic pain syndrome G89.4 [place] [address] 63405- 8209 May, [place] [address] 65955- 4326 May, COPD with acute exacerbation J44.1 [place] [address] [place] [id number] [place] [address] 41709- 1098 May, Type 2 diabetes mellitus with diabetic neuropathy, without long-term current use of insulin E11.40 ; COPD with acute exacerbation J44.1 ; Hypoxia R09.02 ; Chronic pain syndrome G89.4 ; Yeast dermatitis B37.2 ; Alzheimers disease with early onset G30.0 and 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 [place] [address] [place] [id number] [place] [address] 04313- 8390 May, [place] [address] 26792- 9086 May, Chronic pain syndrome G89.4 [facility] [address] [address]- 6005 May, [facility] [address] [id number] [place] [address] 98418- 7386 May, [facility] [address] [id number] [place] [address] 80631- 9877 May, Mixed hyperlipidemia E78.2 [facility] [address] [id number] [place] [address] 80641- 0697 May, Chronic pain syndrome G89.4 [facility] [address] [place] [id number] [place] [address] 41067- 2141 May, Anxiety F41.9 and Chronic pain syndrome G89.4 [facility] [address] [place] [id number] [place] [address] 61631- 6301 Mar, [facility] [address] [id number] [place] [address] 36204- 4980 Mar, [facility] [address] [id number] [place] [address] 70825- 0780 Mar, [facility] [address] [id number] [place] [address] 97598- 4621 Mar, [facility] [id number] [place] [address] 20802- 9716 Mar, [facility] [address] [id number] [place] [address] 03457- 1598 Mar, Anxiety F41.9 and Chronic pain syndrome G89.4 [facility] [address] [place] [address] 87789- 3484 Mar, Medicare annual wellness visit, initial Z00.00 [...] Hiatal hernia K44.9 and Actinic keratosis L57.0 [facility] [address] 87599- 3832 Mar, [facility] [address] 55170- 8502 Mar, Chronic pain syndrome G89.4 [facility] [address] 67388- 0004 Feb, [facility] [address] 53484- 2253 Feb, Chronic pain syndrome G89.4 [facility] [address] 67575- 5792 Feb, [facility] [address] 26818- 7802 Feb, [facility] [address] 07703- 7943 Feb, Anxiety F41.9 [facility] [address] 79504- 6000 Feb, [facility] [address] 55175- 3256 Feb, Chronic pain syndrome G89.4 [facility] [address] 57582- 9688 Jan, Essential hypertension I10 [facility] [address] 17268- 8955 Jan, Chronic pain syndrome G89.4 [facility] [address] 40715- 6931 Jan, [facility] [address] [place] [id number] [place] [address] 00160- 2843 Jan, Anxiety F41.9 [place] [address] 80669- 1033 Jan, Encounter for immunization Z23 and Community acquired pneumonia, unspecified laterality J18.9 [place] [address] 54159- 4481 Jan, Type 2 diabetes mellitus with diabetic neuropathy, without long-term current use of insulin E11.40 [place] [address] 47564- 2185 Dec, Anxiety F41.9 and Chronic pain syndrome G89.4 [place] [address] 55309- 3536 Dec, Chronic pain syndrome G89.4 and Essential hypertension I10 [place] [address] 39698- 8022 Dec, [place] [address] 11861- 0131 Dec, Anxiety F41.9 [place] [address] 52830- 3011 Dec, [place] [address] [place] [id number] [place] [address] 78247- 2266 Dec, Type 2 diabetes mellitus with diabetic neuropathy, without long-term current use of insulin E11.40 ; Lactic acidosis E87.2 ; Chronic obstructive pulmonary disease, unspecified COPD type J44.9 and Encounter for immunization Z23 [place] [address] 86146- 0837 Dec, Chronic pain syndrome G89.4 [place] [address] [place] [id number] [place] [address] 49013- 6344 Nov, [place] [address] [place] [id number]- 0563 Nov, Chronic pain syndrome G89.4 [facility] [address] [address] 2546 Nov, [facility] [address] [place] [id number] [place] [address] 66086 2546 Nov, [facility] [id number] [place] [address] 82122- 5226 15 Nov, 2016 Anxiety F41.9 [facility] [address] [place] [id number] [place] [address] 02486 2546 11 Nov, 2016 Anxiety F41.9 [facility] [address] [id number] [place] [address] 23457- 1147 Nov, [facility] [address] [place] [address] 85150- 1969 Nov, [facility] [address] [place] [id number] [place] [address] 18528- 4615 Nov, [facility] [address] [place] [address] 63523- 0219 Oct, [facility] [address] [place] [id number] [place] [address] 40360- 2449 Oct, [facility] [address] [place] [address] 24818- 6115 Oct, [facility] [address] [place] [address] 16519- 254 Oct, Essential hypertension I10 and Chronic pain syndrome G89.4 [facility] [address] [place] [address] 29680- 0710 Oct, Anxiety F41.9 [facility] [address] [place] [address] 84085- 2362 Oct, [facility] [address], [place] [address]- 6792 08 Aug, 2017 Chronic pain syndrome G89.4 [facility] [address], [place] [address] -[address] Oct, Sore throat J02.9 and Acute nasopharyngitis (common cold) J00 [facility] [id number] [address]- 6641 Sep, [facility] [address] [id number] [place] [address] 87623- 3412 Sep, COPD exacerbation J44.1 [facility] [address] [id number] [place] [address] 39903- 8148 Sep, Chronic pain syndrome G89.4 [facility] [address] [id number] [place] [address] 45760- 0822 Sep, Essential hypertension I10 [facility] [address] [id number] [place] [address] 93742- 9872 Sep, [facility] [address] [id number] [place] [address] 78471- 9379 Sep, [facility] [address] [id number] [place] [address] 70065- 4343 Sep, Anxiety F41.9 [facility] [address] [id number] [place] [address] 15052- 2893 Sep, Chronic pain syndrome G89.4 [facility] [address] [id number] [place] [address] 14572- 2604 Sep, [facility] [address] [id number] [place] [address] 24480- 8048 Aug, Acute seasonal allergic rhinitis, unspecified trigger J30.2 ; Hiatal hernia K44.9 and Chronic pain syndrome G89.4 [facility] [address] [id number] [place] [address] 84872- 8514 Aug, [facility] [address] [id number] [place] [address] 09149- 8320 Aug, [facility] [address], [place] [address]- 0148 Aug, Chronic obstructive pulmonary disease, unspecified COPD type J44.9 [facility] [address] [id number] [place] [address] 96875- 0593 14 Aug, 2016 Anxiety F41.9 [facility] [address] [id number] [place] [address] 10125- 7987 08 Aug, 2016 Chronic pain syndrome G89.4 [facility] [address] [id number] [place] [address] 69810- 3935 Aug, Hiatal hernia K44.9 and Actinic keratosis L57.0 [facility] [address] [id number] [place] [address] 24146- 6247 Aug, [facility] [id number] [place] [address] 66526- 2700 Aug, Anxiety F41.9 [facility] [address] [id number] [place] [address] 81337- 5188 July, [facility] [address] [id number] [place] [address] 28100- 1787 July, Hiatal hernia K44.9 [facility] [address] [place] [address] 13162- 4139 July, [facility] [id number] [place] [address] 38176- 1079 July, Anxiety F41.9 and Chronic pain syndrome G89.4 [facility] [address], [place] [address]- 2533 July, [facility] [id number] [place] [address] 85174- 8402 Jun, Chronic pain syndrome G89.4 [facility] [address], [place] [address]- 8306 Jun, Chronic pain syndrome G89.4 [facility] [address], [place] [address]- 8028 Jun, [place] [address] [id number] [place] [address] 50132- 4728 Jun, Anxiety F41.9 [place] [address] [place] [id number] [place] [address] 53915- 7352 Jun, Allergic rhinitis, unspecified allergic rhinitis trigger, unspecified rhinitis seasonality J30.9 [place] [address] [place] [id number] [place] [address] 05841- 6162 Jun, [place] [address] [place] [id number] [place] [address] 47688- 9937 May, Chronic pain syndrome G89.4 [place] [address] [id number] [place] [address] 27180- 0884 May, [place] [address] 36486- 4913 May, [place] [address] [id number] [place] [address] 02391- 4592 May, Anxiety F41.9 [place] [address] [id number] [place] [address] 53851- 9667 May, Type 2 diabetes mellitus with diabetic [...] Anxiety F41.9 and Chronic pain syndrome G89.4 [place] [address] [place] [address] 57013- 2289 May, Essential hypertension I10 ; Type 2 diabetes mellitus with diabetic neuropathy, without long-term current use of insulin E11.40 ; Mixed hyperlipidemia E78.2 ; Chronic obstructive pulmonary disease, unspecified COPD type J44.9 and Chronic GERD K21.9 [place] [address], [place] [address]- 8018 May, [place] [address] [id number] [place] [address] 61036- 3483 May, [place] [address] [id number] [place] [address] 98388- 4550 May, Type 2 diabetes mellitus with diabetic neuropathy, without long-term current use of insulin E11.40 [place] [address] [id number] [place] [address] 18275- 6241 May, Dementia without behavioral disturbance, unspecified dementia type F03.90 [place] [address] [id number] [place] [address] 19239- 0246 May, Type 2 diabetes mellitus with diabetic neuropathy, without long-term current use of insulin E11.40 ; Essential hypertension I10 ; Mixed hyperlipidemia E78.2 ; Chronic obstructive pulmonary disease, unspecified COPD type J44.9 ; Chronic GERD K21.9 and Osteoarthritis of both knees, unspecified osteoarthritis type M17.0 [place] [address] [id number] [place] [address] 34063- 7105 May, [place] [address] [id number] [place] [address] 11737- 6047 May, [place] [id number] [place] [address] 68625- 7295 May, Anxiety F41.9 and Unspecified symptoms and signs involving cognitive functions and awareness R41.9 [place] [address], [place] [address]- 0054 May, [place] [address] [id number] [place] [address] 57505- 7489 May, Type 2 diabetes mellitus with diabetic neuropathy, without long-term current use of insulin E11.40 ; Anxiety F41.9 and Chronic obstructive pulmonary disease, unspecified COPD type J44.9 [place] [address] [place] [address] [address]- 5804 May, [facility] [id number] [place] [address] 68902- 7820 May, [facility] [id number] [place] [address] 25377- 3157 May, [facility] [id number] [place] [address] 19855- 0012 May, Chronic obstructive pulmonary disease, unspecified COPD type J44.9 [place] [address] [id number] [place] [address] 21807- 0555 Mar, [place] [address] 65198- 0233 Mar, Arthritis of both knees M19.[address] 24792- 2544 Mar, Type 2 diabetes mellitus with diabetic neuropathy, without long-term current use of insulin E11.40 [place] [address] [address] [id number] [place] [address] 40442- 6131 Mar, [place] [address] [address] [id number] [place] [address] 05698- 4259 Mar, Neck pain M54.2 and Weakness generalized R53.1 [place] [id number] [place] [address] 34970- 3280 Mar, [place] [address] [address] [id number] [place] [address] 29851- 0117 Mar, Cervicalgia M54.2 and Impacted cerumen of both ears H61.23 [place] [address] [id number] [place] [address] 77212- 1047 Mar, [place] [address] [id number] [place] [address] 41440- 8549 Mar, Type 2 diabetes mellitus with diabetic neuropathy, without long-term current use of insulin E11.40 [facility] [address] [facility] [id number] [address]- 9858 29 Feb, 2016 [facility] [address], [place] [address]- 0240 28 Feb, 2016 Hypoxia R09.02 [facility] [address], [place] [address]- 2645 23 Feb, 2016 [facility] [id number] [place] [address] 42245- 6583 20 Feb, 2016 [facility] [address] [address] 19 Feb, 2016 [facility] [id number] [place] [address]- [phone] 16 Feb, 2016 Type 2 diabetes mellitus with diabetic neuropathy, without long-term current use of insulin E11.40 [facility] [address] [address] 15 Feb, 2016 Osteoarthritis of both knees, unspecified osteoarthritis type M17.0 [facility] [address] [address] 14 Feb, 2016 [facility] [address] [address] 12 Feb, 2016 [facility] [address] [address] 09 Feb, 2016 [facility] [address] [address] 15 Jan, 2016 [facility] [facility] [address] [address] 15 Jan, 2016 [facility] [address], [place] [address] 14 Jan, 2016 [facility] [address], [place] [address] 14 Jan, 2016 [facility] [address] [place] [address] Jan, Tinea pedis of both feet B35.3 [place] [address] [address] Jan, Type 2 diabetes mellitus with diabetic [...] seasonality J30.9 and Encounter for immunization Z23 [place] [address] [address] Jan, [place] [address] [address] Jan, [place] [address] [address] Dec, [place] [address] [address] Dec, [facility] [address] [address] Dec, Unspecified asthma with (acute) exacerbation J45.901 and Chronic obstructive pulmonary disease with (acute) exacerbation J44.1 [place] [address] [address] Dec, Arthritis of both knees M19.90 and Acute medial meniscus tear, right, initial encounter S83.241A [place] [address] [address] Dec, [place] [address] [address] Dec, [place] [id number], [place] [address] Dec, [facility] [address] [place] [address] Dec, [facility] [address], [place] [address] Dec, History of pneumonia Z87.01 [facility] [address] [place] [address] Dec, [facility] [address], [place] [address] Dec, [facility] [address] [place] [address] Dec, [facility] [address] [place] [id number] [place] [address] Dec, [facility] [address] [place] [id number] [address] Dec, [facility] [address], [place] [address] Dec, [facility] [address] [address] 30 Nov, 2015 Cough R05 and Pneumonia due to infectious organism, unspecified laterality, unspecified part of lung J18.9 [facility] [address], [place] [address] Nov, [facility] [address] [place] [address] Nov, Type 2 diabetes mellitus with diabetic [...] allergic rhinitis trigger, unspecified rhinitis seasonality J30.9 [facility] [address] [facility] [id number] [address] 12 Nov, 2015 IMMUNIZATIONS No Known Immunizations SOCIAL HISTORY Never Assessed REASON FOR VISIT [facility] Follow up [facility], [facility] ER 09/14/17 PT had chest and upper back pain, shortness of breath, PT is concerned that he possibly has acid reflux, Med refill PLAN OF CARE Activity Details Follow Up 4 Weeks Reason:GERD / COPD VITAL SIGNS Height 72 in 2017-09-22 Weight 246 lbs 2017-09-22 Temperature 98 degrees Fahrenheit 2017-09-22 Heart Rate 80 bpm 2017-09-22 Respiratory Rate 18 2017-09-22 BMI 33.36 kg/m2 2017-09-22 Blood pressure systolic 128 mmHg 2017-09-22 Blood pressure diastolic 74 mmHg 2017-09-22 MEDICATIONS Medication Instructions Dosage Frequency Start Date End Date Duration Status Zofran 4 MG Not-Taking Pantoprazole Sodium 40 mg Orally Once a day 1 tablet 24h 30 days Active Lubricant Drops both eyes 4 times a day PRN dryness 1 drop Active Oxygen nc continuously 2 liters Active Robitussin Chest Congestion 100 MG/5ML Orally 3 times a day 5 ml as needed 8h Active Tramadol HCl 50 mg Orally every 12 hrs 1 tablet as needed 12h 21 days Active Clonazepam 1 MG Orally 3 times a day 1 tablet 8h 28 days Active Multivitamin Adult - Active Symbicort 80-4.5 MCG/ACT Inhalation Twice a day 2 puffs 12h Not- Taking Albuterol Sulfate (2.5 MG/3ML) 0.083% Inhalation 3 times a day and PRN 3 ml Active Polyethylene Glycol 3350 - Orally Once a day 17grams with 8oz liquid 24h 18 Feb, 2017 Not-Taking Nystatin 918715 UNIT/GM Externally Twice a day 1 application to affected area 12h 14 May, 2017 Not-Taking Viibryd 10 mg Orally at night 1 tablet with food 90 days Active Loratadine 10 MG Orally Once a day 1 tablet 24h 30 day(s) Active Myrbetriq 25 TAKE ONE TABLET BY MOUTH DAILY DIRECTED 90 Active Exelon 4.6 MG/24HR APPLY ONE PATCH TO HAIR-FREE AREA ABOVE THE WAIST AND CHANGE EVERY 24 HOURS Active Atorvastatin Calcium 40 mg Orally Once a day 1 tablet 24h Active Amlodipine Besylate 10 mg Orally Once a day 1 tablet 24h 30 days Active Fluticasone Propionate 50 MCG/ACT Nasally Once a day at hs 1 spray in each nostril Aug, Not-Taking Montelukast Sodium 10 mg Orally Once a day 1 tablet in the evening 24h 30 days Active Levocetirizine Dihydrochloride 5 MG Orally Once a day 1 tablet in the evening 24h Active Metformin HCl 500 mg Orally Once a day (pt only takes 1/2 tab PRN gluocse over 180) 1 tablet with a meal Not-Taking Doxazosin Mesylate 4 MG Orally at bedtime 1 tablet Active Zantac 150 mg Orally 2 times a day 1 tablet 12h 10 Jun, 2017 30 day(s) Active Triamcinolone Acetonide 0.1 % Externally Twice a day to as needed 1 application to affected area Jan, 30 days Not-Taking Plavix 75 MG Orally Once a day 1 tablet 24h July, Active Fish Oil 1000 MG Orally Twice a day 1 capsule 12h Active Lancets - test blood sugar Jan, 30 days Active GlipiZIDE 5 mg Orally twice a day 1 tablet 12h 30 days Active Benazepril HCl 20 MG Orally Once a day 1 tablet 24h 30 days Not- Taking Lyrica 100 mg Orally Three times a day 1 capsule 8h 14 days Active Spiriva HandiHaler 18 MCG Inhalation Once a day 1 capsule 24h Not- Taking RESULTS No Results PROCEDURES Procedure Date Ordered Result Body Site [facility] VISIT ESTABLISHED PATIENT September 22, 2017 INSTRUCTIONS MEDICATIONS ADMINISTERED No Known Medications MEDICAL (GENERAL) HISTORY Type Description Date Medical History hypertension Medical History chronic obstructive pulmonary disease (COPD)-wears 2L O2 per [place], uses [place] for home O2 Medical History Arthritis-knees and [...] TIA, [facility] 2014 Hospitalization History COPD exacerbation--[facility] 12/27/2015 [facility] - [facility] 02/2016 Hospitalization History [facility] pneumonia 11/2016 Hospitalization History COPD exacerbation - Dr Hartley Attending 12/2016 Hospitalization History Cough- [facility] [place] 04/10/2017 Hospitalization History [facility] - Possible Pneumonia 06/2017 Hospitalization History COPD hiatal hernia 08/2017
--- OUTSIDE RECORDS SUMMARY | 2018-01-05 16:01 | XMS REPORT ---
Author Author DARIN HARTLEY Organization [facility] Address [address] 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 Active 015107031673111 Problem Nocturnal hypoxemia G47.34 Active 486806775 Problem Gastroesophageal reflux disease without esophagitis K21.9 Active 958919766 Problem Recurrent major depressive disorder, in partial 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 Active 89374179 Problem 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 Active 416353941 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 Active 1310923 Problem Hypoxia R09.02 Active 007853132 Problem Elevated transaminase level R74.0 Active 907241484 Problem 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 Active 586604368 Problem Essential hypertension I10 Active 03481053 Problem Anxiety F41.9 Active 71024887 Problem Chronic obstructive pulmonary disease, unspecified COPD type J44.9 Active 38601695 Problem Allergic rhinitis, unspecified allergic rhinitis trigger, unspecified rhinitis seasonality J30.9 Active 39824680 Problem Mixed hyperlipidemia E78.2 Active 326076202 Problem Type 2 diabetes mellitus with diabetic neuropathy, without long-term current use of insulin E11.40 Active 09206116 ALLERGIES No Information ENCOUNTERS Encounter Location Date Diagnosis [facility] [address] [facility] [id number] [address] Oct, [facility] [address] [facility] [id number] [address] Oct, [facility] [address] [address] Oct, [facility] [address] [id number] [place] [address] 13789- 4598 Oct, [facility] [id number] [place] [address] 47788- 1625 Oct, Essential hypertension I10 [facility] [id number] [place] [address] 20675- 5425 Oct, Type 2 diabetes mellitus with diabetic neuropathy, without long-term current use of insulin E11.40 ; Chronic obstructive pulmonary disease , unspecified COPD type J44.9 ; Mixed hyperlipidemia E78.2 ; Osteoarthritis of both knees, unspecified osteoarthritis type M17.0 ; Alzheimers disease with early onset G30.0 and Essential hypertension I10 [facility] [id number] [place] [address] 63413- 8786 Oct, [facility] [id number] [place] [address] 08324- 3048 Oct, [facility] [id number] [place] [address] 81630- 8116 Oct, Yeast dermatitis B37.2 [facility] [id number] [place] [address] 39976- 6586 Oct, Chronic pain syndrome G89.4 [facility] [id number] [place] [address] 26543- 9219 Sep, [facility] [address] [address] 5336 Sep, [facility] [id number] [place] [address] 23921- 2780 Sep, Alzheimers disease with early onset G30.0 and Chronic pain syndrome G89.4 [facility] [address] [address] 4958 Sep, COPD with acute exacerbation J44.1 [facility] [address] [address] 5873 Sep, [facility] [id number] [place] [address] 87647- 7622 Sep, [facility] [address] [address] 7996 Sep, Gastroesophageal reflux disease without esophagitis K21.9 [facility] [id number] [place] [address] 07208- 7313 Aug, [facility] [id number] [place] [address] 32402- 1902 Aug, [facility] [place] [id number] [place] [address] 63860- 7417 Aug, 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 ; Hospital discharge follow-up Z09 ; Chronic obstructive pulmonary disease, unspecified COPD type J44.9 and Chronic GERD K21.9 [facility] [address] [address] 1252 Aug, Chronic pain syndrome G89.4 [facility] [id number] [place] [address] 86409- 6559 Aug, [facility] [place] [id number] [place] [address] 02111- 3138 Aug, [facility] [address] [address] 4736 Aug, Chronic pain syndrome G89.4 and Alzheimers disease with early onset G30.0 [facility] [place] [address] [address] 9148 Aug, Type 2 diabetes mellitus with diabetic neuropathy, without long-term current use of insulin E11.40 ; Chronic obstructive pulmonary disease , unspecified COPD type J44.9 ; Chronic GERD K21.9 and 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 [facility] [place] [id number] [place] [address] 25936- 9158 Aug, [facility] [address] [address] 9962 Aug, Essential hypertension I10 and Cough R05 [facility] [id number] [place] [address] 89671- 6492 Aug, [facility] [id number] [place] [address] 02425- 3992 Aug, [facility] [id number] [place] [address] 24501- 7196 Aug, [facility] [id number] [place] [address] 96125- 7503 Aug, Chronic pain syndrome G89.4 [facility] [id number] [place] [address] 17822- 9885 Aug, [facility] [id number] [place] [address] 58536- 7118 Aug, [facility] [id number] [place] [address] 34636- 5774 July, Gastroesophageal reflux disease without esophagitis K21.9 [facility] [id number] [place] [address] 18494- 5621 July, [facility] [id number] [place] [address] 62354- 7626 July, [facility] [id number] [place] [address] 58304- 2105 July, [facility] [id number] [place] [address] 65394- 3279 July, Essential hypertension I10 and Chronic pain syndrome G89.4 [facility] [id number] [place] [address] 11852- 3586 July, Gastroesophageal reflux disease without esophagitis K21.9 [facility] [id number] [place] [address] 46818- 5157 July, Alzheimers disease with early onset G30.0 [facility] [id number] [place] [address] 60052- 0596 July, Chronic obstructive pulmonary disease, unspecified COPD type J44.9 ; Nocturnal cough R05 ; 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 and Recurrent major depressive disorder, in partial 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 [facility] [id number] [place] [address] 85753- 3652 July, [facility] [id number] [place] [address] 43512- 4986 July, Type 2 diabetes mellitus with diabetic neuropathy, without long-term current use of insulin E11.40 [facility] [place] [address] 86079- 4778 July, Nocturnal hypoxemia G47.34 ; Chronic obstructive pulmonary disease, unspecified COPD type J44.9 and Nocturnal cough R05 [facility] [id number] [place] [address] 01129- 7714 July, [facility] [place] [id number] [place] [address] 93519- 3959 July, [facility] [place] [id number] [place] [address] 39660- 5286 July, [facility] [place] [id number] [place] [address] 28848- 5056 Jun, Chronic pain syndrome G89.4 [facility] [id number] [place] [address] 20186- 4046 Jun, [facility] [id number] [place] [address] 20407- 1734 Jun, [facility] [id number] [place] [address] 60529- 7413 Jun, Alzheimers disease with early onset G30.0 [facility] [id number] [place] [address] 99621- 7957 Jun, [place] [address] 72239- 3355 10 Jun, 2017 Gastroesophageal reflux disease without esophagitis K21.9 [facility] [place] [address] 21342- 3002 04 Jun, 2017 Allergic rhinitis, unspecified allergic rhinitis trigger, unspecified rhinitis seasonality J30.9 [facility] [place] [address] 25350- 4661 Jun, Chronic pain syndrome G89.4 [facility] [place] [address] 03871- 6128 May, [address] 94389- 0568 May, COPD with acute exacerbation J44.[address] 48522- 4409 14 May, 2017 Type 2 diabetes mellitus with diabetic neuropathy, without long-term current use of insulin E11.40 ; COPD with acute exacerbation J44.1 ; Hypoxia R09.02 ; Chronic pain syndrome G89.4 ; Yeast dermatitis B37.2 ; Alzheimers disease with early onset G30.0 and 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 [facility] [place] [address] 37534- 3301 May, [facility] [place] [address] 09422- 5296 May, Chronic pain syndrome G89.4 [place] [address] 85415- 5292 May, [place] [place] [address] 93998- 8870 May, [facility] [place] [address] 76496- 5892 May, Mixed hyperlipidemia E78.2 [facility] [place] [address] 23853- 1324 May, Chronic pain syndrome G89.4 [facility] [id number] [place] [address] 04561- 3945 May, Anxiety F41.9 and Chronic pain syndrome G89.4 [facility] [address] [address]- 2657 Mar, [facility] [id number] [place] [address] 79031- 6206 Mar, [facility] [id number] [place] [address] 13072- 7394 Mar, [facility] [id number] [place] [address] 93472- 7288 Mar, [facility] [id number] [place] [address] 29976- 1886 Mar, [facility] [id number] [place] [address] 06776- 5407 Mar, Anxiety F41.9 and Chronic pain syndrome G89.4 [facility] [id number] [place] [address] 16637- 4876 Mar, Medicare annual wellness visit, initial Z00.00 [...] Hiatal hernia K44.9 and Actinic keratosis L57.0 [facility] [address] [address]- 4757 Mar, [facility] [id number] [place] [address] 50935- 6357 Mar, Chronic pain syndrome G89.4 [facility] [id number] [place] [address] 31295- 9035 Feb, [facility] [id number] [place] [address] 451852- 6049 Feb, Chronic pain syndrome G89.4 [facility] [id number] [place] [address] 14489- 6121 Feb, [facility] [id number] [place] [address] 42479- 6060 Feb, [facility] [id number] [place] [address] 61362- 4221 Feb, Anxiety F41.9 [facility] [id number] [place] [address] 10165- 7377 Feb, [facility] [id number] [place] [address] 05007- 4454 Feb, Chronic pain syndrome G89.4 [facility] [id number] [place] [address] 85607- 9710 Jan, Essential hypertension I10 [facility] [id number] [place] [address] 90874- 4015 Jan, Chronic pain syndrome G89.4 [facility] [id number] [place] [address] 85928- 8179 Jan, [facility] [id number] [place] [address] 08097- 8496 Jan, Anxiety F41.9 [facility] [id number] [place] [address] 34476- 0744 Jan, Encounter for immunization Z23 and Community acquired pneumonia, unspecified laterality J18.9 [facility] [id number] [place] [address] 79712- 3471 Jan, Type 2 diabetes mellitus with diabetic neuropathy, without long-term current use of insulin E11.40 [facility] [id number] [place] [address] 32703- 5407 31 Dec, 2016 Anxiety F41.9 and Chronic pain syndrome G89.4 [facility] [id number] [place] [address] 35124- 8306 23 Dec, 2016 Chronic pain syndrome G89.4 and Essential hypertension I10 [facility] [address] 81229- 4274 16 Dec, 2016 [facility] [id number] [place] [address] 77175- 2606 Dec, Anxiety F41.9 [facility] [address] 18730- 7109 Dec, [facility] [address] 51072- 0802 Dec, Type 2 diabetes mellitus with diabetic neuropathy, without long-term current use of insulin E11.40 ; Lactic acidosis E87.2 ; Chronic obstructive pulmonary disease, unspecified COPD type J44.9 and Encounter for immunization Z23 [facility] [address] 14038- 1030 Dec, Chronic pain syndrome G89.4 [facility] [id number] [place] [address] 02724- 9314 Nov, [facility] [id number] [place] [address] 39617- 6943 Nov, Chronic pain syndrome G89.4 [facility] [id number] [place] [address] 63151 2547 Nov, [facility] [id number] [place] [address] 28340- 2549 Nov, [facility] [id number] [place] [address] 43636- 7284 15 Nov, 2016 Anxiety F41.9 [facility] [address] [place] [address]- 4479 11 Nov, 2016 Anxiety F41.9 [facility] [id number] [place] [address] 90211- 2037 08 Nov, 2016 [facility] [address] [address]- 5380 Nov, [facility] [id number] [place] [address] 37713- 5230 Nov, [facility] [id number] [place] [address] 72771- 5144 Oct, [facility] [id number] [place] [address] 04236- 2408 Oct, [facility] [id number] [place] [address] 29858- 5464 Oct, [facility] [id number] [place] [address] 63061- 0100 Oct, Essential hypertension I10 and Chronic pain syndrome G89.4 [facility] [id number] [place] [address] 28695- 1403 Oct, Anxiety F41.9 [facility] [address] [address]- 0081 Oct, [facility] [id number] [place] [address] 91881- 5138 Oct, Chronic pain syndrome G89.4 [facility] [address] [address] -6900 Oct, Sore throat J02.9 and Acute nasopharyngitis (common cold) J00 [facility] [address] [address]- 4569 Sep, [facility] [address] [address]- 4618 Sep, COPD exacerbation J44.1 [facility] [id number] [place] [address] 97111- 2762 Sep, Chronic pain syndrome G89.4 [facility] [id number] [place] [address] 81402- 8158 Sep, Essential hypertension I10 [facility] [id number] [place] [address] 15539- 0315 Sep, [facility] [id number] [place] [address] 15634- 5395 Sep, [facility] [id number] [place] [address] 75539- 2096 Sep, Anxiety F41.9 [facility] [id number] [place] [address] 89587- 6636 Sep, Chronic pain syndrome G89.4 [facility] [id number] [place] [address] 30647- 6423 Sep, [facility] [id number] [place] [address] 65691- 1170 Aug, Acute seasonal allergic rhinitis, unspecified trigger J30.2 ; Hiatal hernia K44.9 and Chronic pain syndrome G89.4 [facility] [id number] [place] [address] 82073- 6165 Aug, [facility] [id number] [place] [address] 35192- 6990 Aug, [facility] [id number] [place] [address] 95013- 4841 Aug, Chronic obstructive pulmonary disease, unspecified COPD type J44.9 [facility] [id number] [place] [address] 86096- 8198 Aug, Anxiety F41.9 [facility] [id number] [place] [address] 80461- 5476 08 Aug, 2016 Chronic pain syndrome G89.4 [facility] [id number] [place] [address] 67853- 3247 07 Aug, 2016 Hiatal hernia K44.9 and Actinic keratosis L57.0 [facility] [id number] [place] [address] 00404- 2235 Aug, [facility] [id number] [place] [address] 47146- 4096 Aug, Anxiety F41.9 [facility] [id number] [place] [address] 79625- 6006 July, [facility] [id number] [place] [address] 15128- 1291 July, Hiatal hernia K44.9 [facility] [id number] [place] [address] 47380- 9288 July, [facility] [id number] [place] [address] 45033- 8014 July, Anxiety F41.9 and Chronic pain syndrome G89.4 [facility] [id number] [place] [address] 35370- 2665 July, [facility] [id number] [place] [address] 62161- 4930 Jun, Chronic pain syndrome G89.4 [facility] [id number] [place] [address] 50966- 1062 Jun, Chronic pain syndrome G89.4 [facility] [id number] [place] [address] 25812- 9064 Jun, [facility] [id number] [place] [address] 96130- 9846 Jun, Anxiety F41.9 [facility] [id number] [place] [address] 74337- 2423 Jun, Allergic rhinitis, unspecified allergic rhinitis trigger, unspecified rhinitis seasonality J30.9 [facility] [id number] [place] [address] 48956- 6901 Jun, [facility] [address] [address]- 4524 May, Chronic pain syndrome G89.4 [facility] [address] [address]- 5088 May, [facility] [place] [id number] [place] [address] 09524- 3286 May, [facility] [place] [id number] [place] [address] 23534- 0704 May, Anxiety F41.9 [facility] [place] [id number] [place] [address] 71390- 0815 May, Type 2 diabetes mellitus with diabetic [...] Anxiety F41.9 and Chronic pain syndrome G89.4 [facility] [place] [id number] [place] [address] 01870- 7822 May, Essential hypertension I10 ; Type 2 diabetes mellitus with diabetic neuropathy, without long-term current use of insulin E11.40 ; Mixed hyperlipidemia E78.2 ; Chronic obstructive pulmonary disease, unspecified COPD type J44.9 and Chronic GERD K21.9 [facility] [place] [address] [address]- 8220 May, [facility] [address] [address]- 6320 May, [facility] [place] [id number] [place] [address] 88826- 1881 May, Type 2 diabetes mellitus with diabetic neuropathy, without long-term current use of insulin E11.40 [facility] [place] [id number] [place] [address] 51990- 3076 May, Dementia without behavioral disturbance, unspecified dementia type F03.90 [facility] [place] [address] [place] [id number] [place] [address] May, Type 2 diabetes mellitus with diabetic neuropathy, without long-term current use of insulin E11.40 ; Essential hypertension I10 ; Mixed hyperlipidemia E78.2 ; Chronic obstructive pulmonary disease, unspecified COPD type J44.9 ; Chronic GERD K21.9 and Osteoarthritis of both knees, unspecified osteoarthritis type M17.0 [facility] [place] [id number] [place] [address] 42442- 6746 May, [place] [address] 82238- 0751 May, [place] [address] 49231- 4978 May, Anxiety F41.9 and Unspecified symptoms and signs involving cognitive functions and awareness R41.9 [facility] [place] [id number] [place] [address] 18012- 9537 May, [facility] [id number] [place] [address] 93384- 8259 May, Type 2 diabetes mellitus with diabetic neuropathy, without long-term current use of insulin E11.40 ; Anxiety F41.9 and Chronic obstructive pulmonary disease, unspecified COPD type J44.9 [place] [address] [place] [id number] [place] [address] 76111- 0883 May, [place] [address] [place] [id number] [place] [address] 51068- 6187 May, [place] [address] [place] [id number] [place] [address] 20052- 6093 May, [place] [address] [place] [id number] [place] [address] 89584- 3330 May, Chronic obstructive pulmonary disease, unspecified COPD type J44.9 [place] [address] [place] [id number] [place] [address] 15418- 2826 Mar, [place] [address] [address]- 3826 Mar, Arthritis of both knees M19.90 [place] [address] 60422- 6360 16 Mar, 2016 Type 2 diabetes mellitus with diabetic neuropathy, without long-term current use of insulin E11.40 [place] [address] 8[address]- 7464 Mar, [place] [address] 13071- 7411 Mar, Neck pain M54.2 and Weakness generalized R53.[address] [address]- 1891 Mar, [place] [address] 25987- 6805 Mar, Cervicalgia M54.2 and Impacted cerumen of both ears H61.23 [place] [address] 33228- 9458 Mar, [place] [address] 473[address]- 1225 Mar, Type 2 diabetes mellitus with diabetic neuropathy, without long-term current use of insulin E11.40 [place] [address] [address]- [address]296 Feb, [place] [address] 47388- 6328 Feb, Hypoxia R09.02 [place] [address] 25980- 8140 Feb, [place] [address] 9[address]- 6132 Feb, [place] [id number] [address] Feb, [facility] [id number] [place] [address] [phone]- 0164 Feb, Type 2 diabetes mellitus with diabetic neuropathy, without long-term current use of insulin E11.40 [facility] [id number] [place] [address] 76046- [phone] Feb, Osteoarthritis of both knees, unspecified osteoarthritis type M17.0 [facility] [id number] [place] [address] [phone]- [phone] Feb, [facility] [id number] [place] [address] 47155- 1788 Feb, [facility] [id number] [place] [address] 73968- 7988 Feb, [facility] [id number] [place] [address] 35331- 9718 Jan, [facility] [id number] [place] [address] 20048- [phone] Jan, [facility] [id number] [place] [address] [phone]- [phone] Jan, [facility] [id number] [place] [address] 02149- 4274 Jan, [facility] [id number] [place] [address] 61186- 4320 Jan, Tinea pedis of both feet B35.3 [facility] [id number] [address] 03 Jan, 2016 Type 2 diabetes mellitus [...] seasonality J30.9 and Encounter for immunization Z23 [facility] [id number] [place] [address] [phone]- 0289 Jan, [place] [address] [address]- [address] Jan, [facility] [address] [address]- [address] Dec, [place] [address] [address]- [address] Dec, [facility] [id number] [place] [address] [phone] -[phone] Dec, Unspecified asthma with (acute) exacerbation J45.901 and Chronic obstructive pulmonary disease with (acute) exacerbation J44.1 [place] [address] [address]- [address] Dec, Arthritis of both knees M19.90 and Acute medial meniscus tear, right, initial encounter S83.241A [place] [id number] [place] [address] 73025- 9730 Dec, [place] [id number] [place] [address] 64151- 5726 Dec, [place] [address] [address]- 4891 Dec, [place] [id number] [place] [address] 27482- 9089 Dec, [place] [address] 4[address]- 5877 Dec, History of pneumonia Z87.01 [place] [id number] [place] [address] 42254- 5397 Dec, [place] [id number] [address] Dec, [place] [id number] [place] [address] 95477- 7520 Dec, [place] [id number] [place] [address] 61590- [phone] Dec, [place] [address] [address]- 27[address] Dec, [place] [address] [address]23- [address]77 Dec, [place] [address] [address]- 9836 Nov, Cough R05 and Pneumonia due to infectious organism, unspecified laterality, unspecified part of lung J18.[address] [address]- [address] Nov, [place] [id number] [place] [address] 42780- 4087 Nov, Type 2 diabetes mellitus with diabetic [...] allergic rhinitis trigger, unspecified rhinitis seasonality J30.9 [place] [id number] [place] [address] [phone]- [phone] Nov, IMMUNIZATIONS No Known Immunizations SOCIAL HISTORY Never Assessed REASON FOR VISIT Requests return call PLAN OF CARE VITAL SIGNS MEDICATIONS Medication Instructions Dosage Frequency Start Date End Date Duration Status Coricidin HBP Day/Night Cold 10-20 &15-200-2 MG Orally 2 Daytime pills Q AM at 5 am and 2 Nighttime pills at hs 8 pm 2 tablets Active RESULTS No Results PROCEDURES No Known procedures INSTRUCTIONS MEDICATIONS ADMINISTERED No Known Medications MEDICAL (GENERAL) HISTORY Type Description Date Medical History hypertension Medical History chronic obstructive pulmonary disease (COPD)-wears 2L O2 per [place], uses [employer] for home O2 Medical History Arthritis-knees and [...] TIA, [facility] 2014 Hospitalization History COPD exacerbation--[facility] 12/27/2015 [facility] - fall 02/2016 [facility] History [facility] pneumonia 11/2016 Hospitalization History COPD exacerbation - Dr Hartley Attending 12/2016 Hospitalization History Cough- [facility] 04/10/2017 [facility]ization History [facility] - Possible Pneumonia 06/2017 Hospitalization History COPD hiatal hernia 08/2017
--- OUTSIDE RECORDS SUMMARY | 2018-01-05 16:02 | XMS REPORT ---
Author Author QUETA HO Organization [facility] Address [address] [place] [address] Care Team Providers Care Special Education Professional Name Role Phone QUETA HO Unavailable PROBLEMS Type Condition ICD9-CM Code ZPB50-MA Code Onset Dates Condition Status SNOMED Code Problem Osteoarthritis of both knees, unspecified osteoarthritis type M17.0 Active 249360771 Problem Chronic GERD K21.9 Active 929033826 Problem Chronic pain syndrome G89.4 Active 764456080 Problem 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 Active 949587794 Problem 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 Active 107172203557988 Problem Nocturnal hypoxemia G47.34 Active 039286090 Problem Gastroesophageal reflux disease without esophagitis K21.9 Active 215692642 Problem Recurrent major depressive disorder, in partial 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 Active 48189665 Problem 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 Active 084064305 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 Active 8117549 Problem Hypoxia R09.02 Active 058612766 Problem Elevated transaminase level R74.0 Active 103911193 Problem 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 Active 296385665 Problem Essential hypertension I10 Active 30286009 Problem Anxiety F41.9 Active 08471769 Problem Chronic obstructive pulmonary disease, unspecified COPD type J44.9 Active 09549471 Problem Allergic rhinitis, unspecified allergic rhinitis trigger, unspecified rhinitis seasonality J30.9 Active 51927677 Problem Mixed hyperlipidemia E78.2 Active 275416299 Problem Type 2 diabetes mellitus with diabetic neuropathy, without long-term current use of insulin E11.40 Active 67843248 ALLERGIES Substance Reaction Event Type Date Status Hydrocodone-Acetaminophen Unknown Drug Allergy Aug, Active Codeine Sulfate Unknown Drug Allergy Aug, Active Aspirin Unknown Drug Allergy Aug, Active ENCOUNTERS Encounter Location Date Diagnosis [facility] [address] [facility] [id number] [address] Oct, [facility] [id number] [place] [address] 48862- 3163 Oct, Essential hypertension I10 [facility] [id number] [place] [address] 79494- 6813 Oct, Type 2 diabetes mellitus with diabetic neuropathy, without long-term current use of insulin E11.40 ; Chronic obstructive pulmonary disease , unspecified COPD type J44.9 ; Mixed hyperlipidemia E78.2 ; Osteoarthritis of both knees, unspecified osteoarthritis type M17.0 ; Alzheimers disease with early onset G30.0 and Essential hypertension I10 [facility] [id number] [place] [address] 04920- 4491 Oct, [facility] [id number] [place] [address] 63088- 6062 Oct, [facility] [id number] [place] [address] 98741- 4432 Oct, Yeast dermatitis B37.2 [facility] [id number] [place] [address] 56812- 4298 Oct, Chronic pain syndrome G89.4 [facility] [id number] [place] [address] 08201- 4661 Sep, [facility] [id number] [place] [address] 51771- 4486 Sep, [facility] [id number] [place] [address] 31822- 3373 Sep, Alzheimers disease with early onset G30.0 and Chronic pain syndrome G89.4 [facility] [id number] [place] [address] 90026- 7232 Sep, COPD with acute exacerbation J44.1 [facility] [id number] [place] [address] 49863- 2800 Sep, [facility] [id number] [place] [address] 85516- 0221 Sep, [facility] [id number] [place] [address] 68513- 8080 Sep, Gastroesophageal reflux disease without esophagitis K21.9 [facility] [id number] [place] [address] 67866- 8916 Aug, [facility] [id number] [place] [address] 67363- 9735 Aug, [facility] [id number] [place] [address] 89287- 6043 Aug, 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 ; Hospital discharge follow-up Z09 ; Chronic obstructive pulmonary disease, unspecified COPD type J44.9 and Chronic GERD K21.9 [facility] [id number] [place] [address] 81434- 1261 Aug, Chronic pain syndrome G89.4 [facility] [address] 36738- 4938 Aug, [facility] [id number] [place] [address] 11048- 5990 Aug, [facility] [id number] [place] [address] 16577- 9508 Aug, Chronic pain syndrome G89.4 and Alzheimers disease with early onset G30.0 [facility] [id number] [place] [address] 33595- 1297 Aug, Type 2 diabetes mellitus with diabetic neuropathy, without long-term current use of insulin E11.40 ; Chronic obstructive pulmonary disease , unspecified COPD type J44.9 ; Chronic GERD K21.9 and 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 [facility] [address] 13818- 3163 Aug, [facility] [id number] [place] [address] 35586- 3597 Aug, Essential hypertension I10 and Cough R05 [address] [place] [address] 1657 15 Aug, 2017 [facility] [address] [id number] [address] 2[address] Aug, [facility] [address] [address] 3504 Aug, [facility] [id number] [place] [address] 13714- 5528 Aug, Chronic pain syndrome G89.4 [facility] [address] [id number] [address] 4866 Aug, [facility] [id number] [place] [address] 90812- 8927 Aug, [facility] [id number] [place] [address] 06319- 2569 July, Gastroesophageal reflux disease without esophagitis K21.9 [facility] [id number] [place] [address] 79918- 5778 July, [facility] [id number] [place] [address] 91077- 1460 July, [facility] [id number] [place] [address] 58569- 0656 July, [facility] [address] [address] 3309 July, Essential hypertension I10 and Chronic pain syndrome G89.4 [facility] [address] [address] 1164 July, Gastroesophageal reflux disease without esophagitis K21.9 [facility] [id number] [address] July, Alzheimers disease with early onset G30.0 [facility] [address] [address] 7314 July, Chronic obstructive pulmonary disease, unspecified COPD type J44.9 ; Nocturnal cough R05 ; 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 and Recurrent major depressive disorder, in partial 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 [facility] [id number] [place] [address] 47713- 9063 July, [place] [facility] [address] 98789- 4198 July, Type 2 diabetes mellitus with diabetic neuropathy, without long-term current use of insulin E11.40 [place] [address] 97451- 4247 July, Nocturnal hypoxemia G47.34 ; Chronic obstructive pulmonary disease, unspecified COPD type J44.9 and Nocturnal cough R05 [facility] [address] 81470- 6245 July, [facility] [facility] [address] 95617- 2103 July, [place] [address] 33491- 7350 July, [place] [facility] [address] 86357- 0923 Jun, Chronic pain syndrome G89.4 [facility] [facility] [address] 63101- 6669 Jun, [facility] [id number] [place] [address] 74576- 8512 Jun, [facility] [address] 72523- 6770 Jun, Alzheimers disease with early onset G30.0 [place] [address] 48722- 6968 Jun, [place] [address] 91823- 4476 Jun, Gastroesophageal reflux disease without esophagitis K21.9 [facility] [address] 12703- 8844 Jun, Allergic rhinitis, unspecified allergic rhinitis trigger, unspecified rhinitis seasonality J30.9 [place] [address] 98673- 7635 Jun, Chronic pain syndrome G89.4 [facility] [id number] [place] [address] 71719- 1593 May, [place] [address] 67098- 9412 May, COPD with acute exacerbation J44.1 [place] [address] 11971- 8161 14 May, 2017 Type 2 diabetes mellitus with diabetic neuropathy, without long-term current use of insulin E11.40 ; COPD with acute exacerbation J44.1 ; Hypoxia R09.02 ; Chronic pain syndrome G89.4 ; Yeast dermatitis B37.2 ; Alzheimers disease with early onset G30.0 and 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 [facility] [facility] [address] 05443- 3927 May, [facility] [address] 44982- 1616 May, Chronic pain syndrome G89.4 [facility] [id number] [place] [address] 89433- 7566 May, [place] [address] 75613- 5116 May, [facility] [id number] [place] [address] 86215- 5402 May, Mixed hyperlipidemia E78.2 [facility] [address] 36611- 5123 May, Chronic pain syndrome G89.4 [facility] [id number] [place] [address] 08194- 5862 May, Anxiety F41.9 and Chronic pain syndrome G89.4 [facility] [address] [address] 8185 Mar, [facility] [id number] [place] [address] 81095- 1300 Mar, [facility] [id number] [place] [address] 04030- 9792 Mar, [facility] [id number] [place] [address] 53116- 6479 Mar, [facility] [id number] [place] [address] 37877- 0214 Mar, [facility] [id number] [place] [address] 12761- 1877 Mar, Anxiety F41.9 and Chronic pain syndrome G89.4 [facility] [id number] [place] [address] 78300- 6222 Mar, Medicare annual wellness visit, initial Z00.00 [...] Hiatal hernia K44.9 and Actinic keratosis L57.0 [facility] [address] [address]- 2397 Mar, [facility] [id number] [place] [address] 41081- 7357 Mar, Chronic pain syndrome G89.4 [facility] [address], [place] [address]- 9900 Feb, [facility] [id number] [place] [address] 19793- 9584 Feb, Chronic pain syndrome G89.4 [facility] [address] 04652- 4854 Feb, [facility] [address] 47916- 2322 Feb, [facility] [address] 78110- 7194 Feb, Anxiety F41.9 [facility] [address] 67313- 2993 Feb, [facility] [address] 61283- 9436 Feb, Chronic pain syndrome G89.4 [facility] [address] 72727- 3833 Jan, Essential hypertension I10 [facility] [id number] [place] [address] 51852- 6576 Jan, Chronic pain syndrome G89.4 [facility] [address] 72007- 1166 Jan, [facility] [id number] [place] [address] 82492- 0287 Jan, Anxiety F41.9 [facility] [id number] [place] [address] 29048- 0984 Jan, Encounter for immunization Z23 and Community acquired pneumonia, unspecified laterality J18.9 [facility] [address] 18091- 4486 Jan, Type 2 diabetes mellitus with diabetic neuropathy, without long-term current use of insulin E11.40 [facility] [id number] [place] [address] 62972- 0094 Dec, Anxiety F41.9 and Chronic pain syndrome G89.4 [facility] [id number] [place] [address] 55007- 3768 23 Dec, 2016 Chronic pain syndrome G89.4 and Essential hypertension I10 [facility] [address] 74772- 9520 16 Dec, 2016 [facility] [address] 32141- 8796 Dec, Anxiety F41.9 [facility] [address] 46623- 4042 Dec, [facility] [id number] [place] [address] 09163- 7825 Dec, Type 2 diabetes mellitus with diabetic neuropathy, without long-term current use of insulin E11.40 ; Lactic acidosis E87.2 ; Chronic obstructive pulmonary disease, unspecified COPD type J44.9 and Encounter for immunization Z23 [facility] [address] 25352- 2785 Dec, Chronic pain syndrome G89.4 [facility] [id number] [place] [address] 83936 2543 28 Nov, 2016 [facility] [id number] [place] [address] 95250- 2540 Nov, Chronic pain syndrome G89.4 [facility] [id number] [place] [address] 87475 2546 Nov, [facility] [id number] [place] [address] 01638 2542 Nov, [facility] [id number] [place] [address] 67954- 2540 15 Nov, 2016 Anxiety F41.9 [facility] [id number] [place] [address] 01137- 2540 11 Nov, 2016 Anxiety F41.9 [facility] [id number] [place] [address] 68139- 2544 08 Nov, 2016 [place] [address] [address]- 5346 Nov, [facility] [id number] [place] [address] 53429- 7161 Nov, [facility] [id number] [place] [address] 55497- 5928 Oct, [facility] [id number] [place] [address] 91557- 0852 Oct, [facility] [id number] [place] [address] 70823- 2570 Oct, [facility] [id number] [place] [address] 96525- 1899 Oct, Essential hypertension I10 and Chronic pain syndrome G89.4 [facility] [id number] [place] [address] 41390- 1575 Oct, Anxiety F41.9 [facility] [id number] [place] [address] 60446- 3324 Oct, [facility] [id number] [place] [address] 74372- 2657 Oct, Chronic pain syndrome G89.4 [facility] [id number] [place] [address] 74099 -4240 Oct, Sore throat J02.9 and Acute nasopharyngitis (common cold) J00 [facility] [id number] [place] [address] 03335- 8734 Sep, [facility] [id number] [place] [address] 57388- 5014 Sep, COPD exacerbation J44.1 [facility] [id number] [place] [address] 00818- 8479 Sep, Chronic pain syndrome G89.4 [facility] [id number] [place] [address] 47100- 5476 Sep, Essential hypertension I10 [facility] [address] [address]- 4346 Sep, [facility] [id number] [place] [address] 55640- 5054 Sep, [facility] [id number] [place] [address] 61567- 0147 Sep, Anxiety F41.9 [facility] [id number] [place] [address] 81838- 0454 Sep, Chronic pain syndrome G89.4 [facility] [id number] [place] [address] 45088- 8363 Sep, [facility] [id number] [place] [address] 89242- 8360 Aug, Acute seasonal allergic rhinitis, unspecified trigger J30.2 ; Hiatal hernia K44.9 and Chronic pain syndrome G89.4 [facility] [id number] [place] [address] 98713- 9336 Aug, [facility] [id number] [place] [address] 08947- 3884 Aug, [facility] [id number] [place] [address] 74911- 4491 Aug, Chronic obstructive pulmonary disease, unspecified COPD type J44.9 [facility] [id number] [place] [address] 67518- 6043 Aug, Anxiety F41.9 [facility] [id number] [place] [address] 35258- 6807 08 Aug, 2016 Chronic pain syndrome G89.4 [facility] [id number] [place] [address] 57283- 2363 Aug, Hiatal hernia K44.9 and Actinic keratosis L57.0 [facility] [id number] [place] [address] 70739- 0706 Aug, [facility] [id number] [place] [address] 95058- 0193 Aug, Anxiety F41.9 [facility] [id number] [place] [address] 74936- 1946 July, [facility] [id number] [place] [address] 93448- 8431 July, Hiatal hernia K44.9 [facility] [id number] [place] [address] 27231- 6107 July, [facility] [id number] [place] [address] 90071- 1772 July, Anxiety F41.9 and Chronic pain syndrome G89.4 [facility] [id number] [place] [address] 75877- 1325 July, [facility] [id number] [place] [address] 44553- 0542 Jun, Chronic pain syndrome G89.4 [facility] [id number] [place] [address] 85276- 0884 Jun, Chronic pain syndrome G89.4 [facility] [id number] [place] [address] 98891- 5560 Jun, [facility] [id number] [place] [address] 99967- 2879 Jun, Anxiety F41.9 [facility] [id number] [place] [address] 69662- 1128 Jun, Allergic rhinitis, unspecified allergic rhinitis trigger, unspecified rhinitis seasonality J30.9 [facility] [id number] [place] [address] 37963- 5100 Jun, [facility] [id number] [place] [address] 99547- 8161 May, Chronic pain syndrome G89.4 [facility] [address] [place] [address]- 4132 May, [facility] [id number] [place] [address] 01752- 9071 May, [place] [id number] [place] [address] 26981- 1772 May, Anxiety F41.9 [facility] [id number] [place] [address] 95050- 4158 May, Type 2 diabetes mellitus with diabetic [...] Anxiety F41.9 and Chronic pain syndrome G89.4 [facility] [id number] [place] [address] 01859- 4454 May, Essential hypertension I10 ; Type 2 diabetes mellitus with diabetic neuropathy, without long-term current use of insulin E11.40 ; Mixed hyperlipidemia E78.2 ; Chronic obstructive pulmonary disease, unspecified COPD type J44.9 and Chronic GERD K21.9 [facility] [id number] [place] [address] 66143- 1602 May, [facility] [id number] [place] [address] 11376- 5730 May, [facility] [id number] [place] [address] 31184- 4227 May, Type 2 diabetes mellitus with diabetic neuropathy, without long-term current use of insulin E11.40 [facility] [id number] [place] [address] 35284- 1873 May, Dementia without behavioral disturbance, unspecified dementia type F03.90 [facility] [place] [id number] [place] [address] 09275- 4875 May, Type 2 diabetes mellitus with diabetic neuropathy, without long-term current use of insulin E11.40 ; Essential hypertension I10 ; Mixed hyperlipidemia E78.2 ; Chronic obstructive pulmonary disease, unspecified COPD type J44.9 ; Chronic GERD K21.9 and Osteoarthritis of both knees, unspecified osteoarthritis type M17.0 [place] [id number] [place] [address] 81705- 5340 May, [place] [address] 67385- 0235 May, [place] [address] 45737- 4208 May, Anxiety F41.9 and Unspecified symptoms and signs involving cognitive functions and awareness R41.9 [place] [address] 97756- 6715 May, [place] [address] 75041- 1429 May, Type 2 diabetes mellitus with diabetic neuropathy, without long-term current use of insulin E11.40 ; Anxiety F41.9 and Chronic obstructive pulmonary disease, unspecified COPD type J44.9 [place] [id number] [place] [address] 66980- 9383 May, [place] [id number] [place] [address] 66024- 3556 May, [place] [id number] [place] [address] 42128- 7739 May, [place] [id number] [place] [address] 80996- 1501 May, Chronic obstructive pulmonary disease, unspecified COPD type J44.9 [facility] [id number] [place] [address] 20721- 3262 Mar, [place] [address] 54494- 9026 Mar, Arthritis of both knees M19.90 [place] [id number] [place] [address] 91370- 8008 16 Mar, 2016 Type 2 diabetes mellitus with diabetic neuropathy, without long-term current use of insulin E11.40 [facility] [id number] [place] [address] 54402- 7838 Mar, [place] [address] 13250- 2486 Mar, Neck pain M54.2 and Weakness generalized R53.1 [place] [address] 33169- 5970 Mar, [place] [address] 91817- 9826 Mar, Cervicalgia M54.2 and Impacted cerumen of both ears H61.23 [place] [address] 20901- 1382 Mar, [place] [address] [place] [id number] [place] [address] [id number]- 5841 Mar, Type 2 diabetes mellitus with diabetic neuropathy, without long-term current use of insulin E11.40 [place] [address] [place] [id number] [place] [address] 76365- 0958 Feb, [place] [address] [place] [id number] [place] [address] 49448- 1292 Feb, Hypoxia R09.02 [place] [address] [place] [id number] [place] [address] 84915- 9012 Feb, [place] [address] 12397- 1549 Feb, [place] [address] [place] [id number] [place] [address] 86068- 5765 Feb, [place] [address] 08697- 2569 Feb, Type 2 diabetes mellitus with diabetic neuropathy, without long-term current use of insulin E11.40 [facility] [id number] [place] [address] [phone]- 0934 Feb, Osteoarthritis of both knees, unspecified osteoarthritis type M17.0 [facility] [id number], [place] [address] 14 Feb, 2016 [facility] [id number] [place] [address] [phone]- [phone] Feb, [facility] [id number] [place] [address] 54154- 1459 Feb, [facility] [id number] [place] [address] 66258- 0515 Jan, [place] [id number] [place] [address] 41149- [phone] Jan, [facility] [id number] [place] [address] [phone]- [phone] Jan, [facility] [id number] [place] [address] 53938- 5059 Jan, [facility] [id number] [place] [address] 81073- 1470 Jan, Tinea pedis of both feet B35.3 [place] [id number] [place] [address] [phone]- 6998 03 Jan, 2016 Type 2 diabetes mellitus [...] seasonality J30.9 and Encounter for immunization Z23 [place] [address] [address] Jan, [facility] [address] [place] [address] Jan, [facility] [address] [place] [address] Dec, [facility] [id number] [place] [address] 28139- 1469 Dec, [facility] [address], [place] [address] Dec, Unspecified asthma with (acute) exacerbation J45.901 and Chronic obstructive pulmonary disease with (acute) exacerbation J44.1 [facility] [address], [place] [address] Dec, Arthritis of both knees M19.90 and Acute medial meniscus tear, right, initial encounter S83.241A [facility] [address] [address] Dec, [facility] [id number] [place] [address] 24065- 5090 Dec, [facility] [address] [address] Dec, [facility] [address] [place] [address] Dec, [facility] [address] [place] [address] Dec, History of pneumonia Z87.01 [facility] [id number] [place] [address] 63134- 8928 Dec, [facility] [address] [place] [address] 4[address] Dec, [facility] [id number] [place] [address] 76658- 6120 Dec, [place] [address] [place] [address] Dec, [facility] [id number] [place] [address] 22271- 7129 Dec, [place] [id number] [place] [address] 45841- 5291 Dec, [facility] [id number] [place] [address] 33923- 7143 30 Nov, 2015 Cough R05 and Pneumonia due to infectious organism, unspecified laterality, unspecified part of lung J18.9 [place] [id number] [place] [address] 92838- 4145 Nov, [facility] [id number] [place] [address] 60366- 5691 Nov, Type 2 diabetes mellitus with diabetic [...] allergic rhinitis trigger, unspecified rhinitis seasonality J30.9 [place] [id number] [place] [address] 83533- 4185 12 Nov, 2015 IMMUNIZATIONS No Known Immunizations SOCIAL HISTORY Never Assessed REASON FOR VISIT ER f/u- Blood pressure pill WB-[facility], [facility] 09/11/17 hiatal hernia, COPD PLAN OF CARE Activity Details Follow Up regular appt Reason: VITAL SIGNS Height 72 in 2017-09-12 Weight 246 lbs 2017-09-12 Temperature 99.3 degrees Fahrenheit 2017-09-12 Heart Rate 82 bpm 2017-09-12 Respiratory Rate 18 2017-09-12 Oximetry w/ oxygen:95 % 2017-09-12 BMI 33.36 kg/m2 2017-09-12 Blood pressure systolic 132 mmHg 2017-09-12 Blood pressure diastolic 74 mmHg 2017-09-12 MEDICATIONS Medication Instructions Dosage Frequency Start Date End Date Duration Status Benazepril HCl 20 MG Orally Once a day 1 tablet 24h 30 days Active Tylenol PM Extra Strength 500-25 MG Orally at bedtime 2 tablet at bedtime as needed Not-Taking Coricidin HBP Day/Night Cold 10-20 &15-200-2 MG Orally 1 Daytime pill Q AM, noon and 5 pm; and 2 Nighttime pills at hs Not-Taking Spiriva HandiHaler 18 MCG Inhalation Once a day 1 capsule 24h Not- Taking Doxazosin Mesylate 4 MG Orally at bedtime 1 tablet Active Viibryd 10 mg TAKE ONE TABLET BY MOUTH DAILY WITH FOOD 28 Not- Taking Polyethylene Glycol 3350 - Orally Once a day 17grams with 8oz liquid 24h 18 Feb, 2017 Not-Taking Tramadol HCl 50 mg Orally every 12 hrs must last 28 days 1 tablet as needed 28 days Not-Taking Zofran 4 MG Not-Taking Nystatin 294023 UNIT/GM Externally Twice a day 1 application to affected area 12h May, Not-Taking Robitussin Chest Congestion 100 MG/5ML Orally 3 times a day 5 ml as needed 8h Active Plavix 75 MG Orally Once a day 1 tablet 24h July, Not-Taking GlipiZIDE 5 mg Orally twice a day 1 tablet 12h 30 days Active Lancets - test blood sugar Jan, 30 days Not-Taking Metformin HCl 500 mg Orally Once a day (pt only takes 1/2 tab PRN gluocse over 180) 1 tablet with a meal Active Oxygen nc continuously 2 liters Active Symbicort 80-4.5 MCG/ACT Inhalation Twice a day 2 puffs 12h Not- Taking Zantac 150 mg Orally 2 times a day 1 tablet 12h 10 Jun, 2017 30 day(s) Active Montelukast Sodium 10 mg Orally Once a day 1 tablet in the evening 24h 30 days Active Pantoprazole Sodium 40 mg Orally Once a day 1 tablet 24h 30 days Active Atorvastatin Calcium 40 mg Orally Once a day 1 tablet 24h Active Albuterol Sulfate (2.5 MG/3ML) 0.083% Inhalation 3 times a day and PRN 3 ml Active Myrbetriq 25 TAKE ONE TABLET BY MOUTH DAILY DIRECTED 90 Active Amlodipine Besylate 10 mg Orally Once a day 1 tablet 24h 30 days Active Loratadine 10 MG Orally Once a day 1 tablet 24h 30 day(s) Not-Taking Fish Oil 1000 MG Orally Twice a day 1 capsule 12h Active Clonazepam 1 MG Orally 3 times a day 1 tablet 8h 28 days Not-Taking Exelon 4.6 MG/24HR APPLY ONE PATCH TO HAIR-FREE AREA ABOVE THE WAIST AND CHANGE EVERY 24 HOURS Active Fluticasone Propionate 50 MCG/ACT Nasally Once a day at hs 1 spray in each nostril Aug, Not-Taking Triamcinolone Acetonide 0.1 % Externally Twice a day to as needed 1 application to affected area Jan, 30 days Not-Taking Lyrica 100 mg Orally Three times a day 1 capsule 8h Active RESULTS No Results PROCEDURES Procedure Date Ordered Result Body Site [facility] VISIT ESTABLISHED PATIENT September 12, 2017 INSTRUCTIONS MEDICATIONS ADMINISTERED No Known Medications MEDICAL (GENERAL) HISTORY Type Description Date Medical History hypertension Medical History chronic obstructive pulmonary disease (COPD)-wears 2L O2 per [place], uses [place] for home O2 Medical History Arthritis-knees and [...] [facility] 2014 Hospitalization History COPD exacerbation--[facility] 12/27/2015 [facility] - [facility] 02/2016 [facility] History [facility] 11/2016 Hospitalization History COPD exacerbation - Dr Hartley Attending 12/2016 Hospitalization History Cough- [facility] 04/10/2017 Hospitalization History [facility] - Possible Pneumonia 06/2017 Hospitalization History COPD hiatal hernia 08/2017
--- OUTSIDE RECORDS SUMMARY | 2018-01-05 16:03 | XMS REPORT ---
Author Author DARIN HARTLEY Organization [facility] Address [address] [place] [address] Care Team Providers Care Second Floor Operator Name Role Phone DARIN HARTLEY Unavailable PROBLEMS Type Condition ICD9-CM Code KZB91-GR Code Onset Dates Condition Status SNOMED Code Problem Osteoarthritis of both knees, unspecified osteoarthritis type M17.0 Active 044884531 Problem Chronic GERD K21.9 Active 914630767 Problem Chronic pain syndrome G89.4 Active 714190645 Problem 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 Active 005609517 Problem 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 Active 861488954013930 Problem Nocturnal hypoxemia G47.34 Active 010250767 Problem Gastroesophageal reflux disease without esophagitis K21.9 Active 304721683 Problem Recurrent major depressive disorder, in partial 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 Active 68332790 Problem 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 Active 857998860 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 Active 9076389 Problem Hypoxia R09.02 Active 074174557 Problem Elevated transaminase level R74.0 Active 590747246 Problem 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 Active 829860502 Problem Essential hypertension I10 Active 81913894 Problem Anxiety F41.9 Active 89966745 Problem Chronic obstructive pulmonary disease, unspecified COPD type J44.9 Active 33153207 Problem Allergic rhinitis, unspecified allergic rhinitis trigger, unspecified rhinitis seasonality J30.9 Active 58407935 Problem Mixed hyperlipidemia E78.2 Active 068681235 Problem Type 2 diabetes mellitus with diabetic neuropathy, without long-term current use of insulin E11.40 Active 81871500 ALLERGIES No Information ENCOUNTERS Encounter Location Date Diagnosis [facility] [address] [facility] [id number] [address] Oct, [facility] [address] [facility] [id number], [place] [address] Oct, Essential hypertension I10 [facility] [id number] [place] [address] 38603- 7488 Oct, Type 2 diabetes mellitus with diabetic neuropathy, without long-term current use of insulin E11.40 ; Chronic obstructive pulmonary disease , unspecified COPD type J44.9 ; Mixed hyperlipidemia E78.2 ; Osteoarthritis of both knees, unspecified osteoarthritis type M17.0 ; Alzheimers disease with early onset G30.0 and Essential hypertension I10 [facility] [id number] [place] [address] 93806- 7796 Oct, [facility] [id number] [place] [address] 34309- 0197 Oct, [facility] [address] 47126- 3274 Oct, Yeast dermatitis B37.2 [facility] [id number] [place] [address] 61687- 8831 Oct, Chronic pain syndrome G89.4 [facility] [id number] [place] [address] 41629- 3928 Sep, [facility] [address] 20995- 5365 Sep, [facility] [id number] [place] [address] 16061- 5291 Sep, Alzheimers disease with early onset G30.0 and Chronic pain syndrome G89.4 [facility] [id number] [place] [address] 55918- 7096 Sep, COPD with acute exacerbation J44.1 [facility] [id number] [place] [address] 31955- 7234 Sep, [facility] [id number] [place] [address] 88593- 3691 Sep, [facility] [id number] [place] [address] 99620- 5364 Sep, Gastroesophageal reflux disease without esophagitis K21.9 [facility] [facility] [id number] [place] [address] 35279- 6194 Aug, [facility] [id number] [place] [address] 53263- 6853 Aug, [facility] [id number] [place] [address] 54711- 0975 Aug, 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 ; Hospital discharge follow-up Z09 ; Chronic obstructive pulmonary disease, unspecified COPD type J44.9 and Chronic GERD K21.9 [facility] [address] 10530- 3869 Aug, Chronic pain syndrome G89.4 [facility] [address] 61240- 6435 Aug, [facility] [address] 78085- 5616 Aug, [facility] [id number] [place] [address] 43417- 5276 18 Aug, 2017 Chronic pain syndrome G89.4 and Alzheimers disease with early onset G30.0 [facility] [id number] [place] [address] 04147- 1060 18 Aug, 2017 Type 2 diabetes mellitus with diabetic neuropathy, without long-term current use of insulin E11.40 ; Chronic obstructive pulmonary disease , unspecified COPD type J44.9 ; Chronic GERD K21.9 and 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 [facility] [id number] [place] [address] 92855- 3854 Aug, [facility] [address] 09786- 7724 Aug, Essential hypertension I10 and Cough R05 [facility] [id number] [place] [address] 01026- 6041 Aug, [facility] [address] 67749- 2171 Aug, [facility] [address] [address] 7347 Aug, [facility] [id number] [place] [address] 41793- 7754 Aug, Chronic pain syndrome G89.4 [facility] [id number] [place] [address] 19821- 0081 Aug, [facility] [id number] [place] [address] 99653- 7926 Aug, [facility] [id number] [place] [address] 40323- 6372 July, Gastroesophageal reflux disease without esophagitis K21.9 [facility] [id number] [place] [address] 05320- 8345 July, [facility] [id number] [place] [address] 37146- 4620 July, [facility] [id number] [place] [address] 05109- 0684 July, [facility] [id number] [place] [address] 67855- 3005 July, Essential hypertension I10 and Chronic pain syndrome G89.4 [facility] [id number] [place] [address] 18109- 4095 July, Gastroesophageal reflux disease without esophagitis K21.9 [facility] [id number] [place] [address] 41152- 2017 July, Alzheimers disease with early onset G30.0 [facility] [id number] [place] [address] 12516- 8439 July, Chronic obstructive pulmonary disease, unspecified COPD type J44.9 ; Nocturnal cough R05 ; 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 and Recurrent major depressive disorder, in partial 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 [facility] [id number] [place] [address] 42172- 8848 July, [facility] [address] 24149- 5086 July, Type 2 diabetes mellitus with diabetic neuropathy, without long-term current use of insulin E11.40 [facility] [id number] [place] [address] 77379- 2294 July, Nocturnal hypoxemia G47.34 ; Chronic obstructive pulmonary disease, unspecified COPD type J44.9 and Nocturnal cough R05 [facility] [address] 80366- 8908 July, [facility] [address] 02874- 0818 July, [facility] [address] 98352- 8064 July, [facility] [address] 56040- 4960 Jun, Chronic pain syndrome G89.4 [facility] [address] 95167- 5343 Jun, [facility] [id number] [place] [address] 96215- 7246 Jun, [facility] [id number] [place] [address] 91288- 5385 Jun, Alzheimers disease with early onset G30.0 [facility] [id number] [place] [address] 33080- 6775 Jun, [facility] [id number] [place] [address] 63154- 5672 Jun, Gastroesophageal reflux disease without esophagitis K21.9 [facility] [id number] [place] [address] 81065- 4176 Jun, Allergic rhinitis, unspecified allergic rhinitis trigger, unspecified rhinitis seasonality J30.9 [facility] [address] [id number] [place] [address] 61092- 9869 Jun, Chronic pain syndrome G89.4 [facility] [id number] [place] [address] 68211- 6210 May, [facility] [id number] [place] [address] 34610- 4530 May, COPD with acute exacerbation J44.1 [facility] [address] 64478- 1670 14 May, 2017 Type 2 diabetes mellitus with diabetic neuropathy, without long-term current use of insulin E11.40 ; COPD with acute exacerbation J44.1 ; Hypoxia R09.02 ; Chronic pain syndrome G89.4 ; Yeast dermatitis B37.2 ; Alzheimers disease with early onset G30.0 and 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 [facility] [place] [id number] [place] [address] 18170- 2277 May, [facility] [address] 13362- 0706 May, Chronic pain syndrome G89.4 [facility] [place] [id number] [place] [address] 92121- 4194 May, [facility] [id number] [place] [address] 27301- 9428 May, [facility] [id number] [place] [address] 32497- 6633 May, Mixed hyperlipidemia E78.2 [facility] [id number] [place] [address] 60302- 6216 May, Chronic pain syndrome G89.4 [facility] [id number] [place] [address] 68919- 0418 May, Anxiety F41.9 and Chronic pain syndrome G89.4 [facility] [id number] [place] [address] 27330- 0809 Mar, [facility] [address] [address]- 4197 Mar, [facility] [address] [place] [address] 15646- 9329 Mar, [facility] [address] [address]- 9578 Mar, [facility] [id number] [place] [address] 15672- 8464 Mar, [facility] [id number] [place] [address] 70877- 1609 Mar, Anxiety F41.9 and Chronic pain syndrome G89.4 [facility] [address] [place] [address] 36805- 2977 Mar, Medicare annual wellness visit, initial Z00.00 [...] Hiatal hernia K44.9 and Actinic keratosis L57.0 [facility] [address] [address]- 5139 Mar, [facility] [address] [address]- 2523 Mar, Chronic pain syndrome G89.4 [facility] [address] [address]- 3331 Feb, [facility] [address] [address]- 8145 Feb, Chronic pain syndrome G89.4 [facility] [place] [id number] [place] [address] 62241- 2128 Feb, [facility] [id number] [place] [address] 10261- 4520 Feb, [facility] [id number] [place] [address] 21295- 6204 Feb, Anxiety F41.9 [facility] [address] 77888- 8227 Feb, [facility] [id number] [place] [address] 41416- 3563 Feb, Chronic pain syndrome G89.4 [facility] [id number] [place] [address] 17845- 0801 Jan, Essential hypertension I10 [facility] [address] 93173- 0174 Jan, Chronic pain syndrome G89.4 [facility] [id number] [place] [address] 24736- 7021 Jan, [facility] [address] 33258- 3284 Jan, Anxiety F41.9 [facility] [id number] [place] [address] 06803- 4166 Jan, Encounter for immunization Z23 and Community acquired pneumonia, unspecified laterality J18.9 [facility] [id number] [place] [address] 50828- 8861 Jan, Type 2 diabetes mellitus with diabetic neuropathy, without long-term current use of insulin E11.40 [facility] [id number] [place] [address] 10494- 2568 Dec, Anxiety F41.9 and Chronic pain syndrome G89.4 [facility] [id number] [place] [address] 96645- 8877 Dec, Chronic pain syndrome G89.4 and Essential hypertension I10 [facility] [id number] [place] [address] 05382- 8941 16 Dec, 2016 [facility] [address] 52517- 6889 10 Dec, 2016 Anxiety F41.9 [facility] [id number] [place] [address] 27422- 2712 10 Dec, 2016 [facility] [address] 48618- 7382 04 Dec, 2016 Type 2 diabetes mellitus with diabetic neuropathy, without long-term current use of insulin E11.40 ; Lactic acidosis E87.2 ; Chronic obstructive pulmonary disease, unspecified COPD type J44.9 and Encounter for immunization Z23 [facility] [id number] [place] [address] 64626- 2017 02 Dec, 2016 Chronic pain syndrome G89.4 [facility] [address] 43538- 5555 28 Nov, 2016 [facility] [id number] [place] [address] 51120- 0303 21 Nov, 2016 Chronic pain syndrome G89.4 [facility] [id number] [place] [address] 08021- 0305 Nov, [facility] [id number] [place] [address] 38587- 2785 Nov, [facility] [id number] [place] [address] 47234- 4023 15 Nov, 2016 Anxiety F41.9 [facility] [id number] [place] [address] 69370- 4098 11 Nov, 2016 Anxiety F41.9 [facility] [id number] [place] [address] 71679- 0014 08 Nov, 2016 [facility] [id number] [place] [address] 99553- 0539 05 Nov, 2016 [facility] [id number] [address]- 7356 Nov, [facility] [id number] [place] [address] 31019- 1270 Oct, [facility] [id number] [place] [address] 50895- 9346 Oct, [facility] [id number] [place] [address] 09358- 2153 Oct, [facility] [id number] [place] [address] 11649- 0469 Oct, Essential hypertension I10 and Chronic pain syndrome G89.4 [facility] [id number] [place] [address] 29702- 8608 Oct, Anxiety F41.9 [facility] [id number] [place] [address] 66941- 1612 Oct, [facility] [id number] [place] [address] 40674- 4900 Oct, Chronic pain syndrome G89.4 [facility] [id number] [place] [address] 99630 -4269 Oct, Sore throat J02.9 and Acute nasopharyngitis (common cold) J00 [facility] [address], [place] [address]- 0171 Sep, [facility] [id number] [place] [address] 17867- 2730 Sep, COPD exacerbation J44.1 [facility] [address] [place] [address] 40952- 7121 Sep, Chronic pain syndrome G89.4 [facility] [id number] [place] [address] 26854- 7778 Sep, Essential hypertension I10 [facility] [id number] [place] [address] 72544- 4705 Sep, [facility] [address] [place] [address] 64655- 6422 Sep, [facility] [id number] [place] [address] 70934- 6388 Sep, Anxiety F41.9 [facility] [id number] [place] [address] 99908- 1305 Sep, Chronic pain syndrome G89.4 [facility] [id number] [place] [address] 29841- 3176 Sep, [facility] [id number] [place] [address] 53661- 3059 Aug, Acute seasonal allergic rhinitis, unspecified trigger J30.2 ; Hiatal hernia K44.9 and Chronic pain syndrome G89.4 [facility] [id number] [place] [address] 14275- 6230 Aug, [facility] [id number] [place] [address] 09440- 4112 Aug, [facility] [id number] [place] [address] 97153- 2801 Aug, Chronic obstructive pulmonary disease, unspecified COPD type J44.9 [facility] [id number] [place] [address] 92737- 7283 Aug, Anxiety F41.9 [facility] [id number] [place] [address] 10489- 1863 08 Aug, 2016 Chronic pain syndrome G89.4 [facility] [address] [place] [address] 29755- 6543 Aug, Hiatal hernia K44.9 and Actinic keratosis L57.0 [facility] [id number] [place] [address] 27308- 3429 Aug, [facility] [id number] [place] [address] 46227- 3854 Aug, Anxiety F41.9 [facility] [address], [place] [address]- 5011 July, [facility] [id number] [place] [address] 64087- 0094 July, Hiatal hernia K44.9 [facility] [id number] [place] [address] 01388- 2992 July, [facility] [id number] [place] [address] 12231- 2251 July, Anxiety F41.9 and Chronic pain syndrome G89.4 [facility] [id number] [place] [address] 79555- 2999 July, [facility] [id number] [place] [address] 30921- 2561 Jun, Chronic pain syndrome G89.4 [facility] [id number] [place] [address] 87522- 3156 Jun, Chronic pain syndrome G89.4 [facility] [id number] [place] [address] 01085- 8062 Jun, [facility] [id number] [place] [address] 30743- 9267 Jun, Anxiety F41.9 [facility] [address] [place] [address] 92523- 5248 Jun, Allergic rhinitis, unspecified allergic rhinitis trigger, unspecified rhinitis seasonality J30.9 [facility] [address] [place] [address] 38871- 7551 Jun, [facility] [id number] [place] [address] 62839- 5465 May, Chronic pain syndrome G89.4 [facility] [address] [place] [address] 13918- 0189 May, [facility] [id number] [place] [address] 71918- 2924 May, [facility] [address] [place] [address]- 0206 May, Anxiety F41.9 [facility] [id number] [place] [address]- 1377 May, Type 2 diabetes mellitus with diabetic [...] Anxiety F41.9 and Chronic pain syndrome G89.4 [facility] [address] [place] [address] 28690- 5495 May, Essential hypertension I10 ; Type 2 diabetes mellitus with diabetic neuropathy, without long-term current use of insulin E11.40 ; Mixed hyperlipidemia E78.2 ; Chronic obstructive pulmonary disease, unspecified COPD type J44.9 and Chronic GERD K21.9 [facility] [id number] [place] [address] 69213- 0374 May, [facility] [id number] [place] [address] 25110- 5551 May, [facility] [id number] [place] [address] 53897- 6395 May, Type 2 diabetes mellitus with diabetic neuropathy, without long-term current use of insulin E11.40 [facility] [address] [place] [address] 83778- 2159 May, Dementia without behavioral disturbance, unspecified dementia type F03.90 [facility] [address] [place] [address] 52563- 3743 May, Type 2 diabetes mellitus with diabetic neuropathy, without long-term current use of insulin E11.40 ; Essential hypertension I10 ; Mixed hyperlipidemia E78.2 ; Chronic obstructive pulmonary disease, unspecified COPD type J44.9 ; Chronic GERD K21.9 and Osteoarthritis of both knees, unspecified osteoarthritis type M17.0 [facility] [id number] [place] [address] 87375- 4750 May, [facility] [id number] [place] [address] 49943- 7915 May, [facility] [id number] [place] [address] 56963- 0499 May, Anxiety F41.9 and Unspecified symptoms and signs involving cognitive functions and awareness R41.9 [facility] [id number] [place] [address] 52635- 9029 May, [facility] [id number] [place] [address] 76402- 0241 May, Type 2 diabetes mellitus with diabetic neuropathy, without long-term current use of insulin E11.40 ; Anxiety F41.9 and Chronic obstructive pulmonary disease, unspecified COPD type J44.9 [facility] [address] [place] [address] 53905- 3819 May, [facility] [id number] [place] [address] 43678- 9718 May, [facility] [id number] [place] [address] 01041- 4976 May, [facility] [id number] [place] [address] 48348- 6566 May, Chronic obstructive pulmonary disease, unspecified COPD type J44.9 [facility] [address] [place] [address] 37661- 7301 Mar, [facility] [id number] [place] [address] [id number]- 6695 Mar, Arthritis of both knees M19.90 [place] [id number] [place] [address] 89750- 1034 Mar, Type 2 diabetes mellitus with diabetic neuropathy, without long-term current use of insulin E11.40 [place] [address] [address]- [address] Mar, [place] [address] [address]- [address]33 Mar, Neck pain M54.2 and Weakness generalized R53.1 [place] [address] [address]- [address] Mar, [place] [address] 7[address]- [address]335 Mar, Cervicalgia M54.2 and Impacted cerumen of both ears H61.23 [place] [address] [address]- [address]874 Mar, [place] [address] 90433- 1132 Mar, Type 2 diabetes mellitus with diabetic neuropathy, without long-term current use of insulin E11.40 [place] [address] [place] [id number] [place] [address] 40680- 8513 Feb, [place] [address] [place] [id number] [place] [address] 16624- 2234 Feb, Hypoxia R09.02 [place] [address] [place] [id number] [place] [address] 43683- 3116 Feb, [place] [address] [place] [id number] [place] [address] 64185- 0549 Feb, [place] [address] [place] [id number] [place] [address] 88663- 6658 Feb, [place] [address] [place] [id number] [place] [address] 60581- 7850 Feb, Type 2 diabetes mellitus with diabetic neuropathy, without long-term current use of insulin E11.40 [place] [address] [place] [id number] [place] [address] 61202- 0146 Feb, Osteoarthritis of both knees, unspecified osteoarthritis type M17.0 [facility] [address] [place] [id number] [place] [address] 96193- 9857 Feb, [facility] [address] [place] [id number] [place] [address] 81906- 7336 Feb, [facility] [address] [place] [id number] [place] [address] 43967- 5491 Feb, [facility] [address] [place] [id number] [place] [address] 78739- 9001 Jan, [facility] [address] [place] [id number] [place] [address] 98086- 2743 Jan, [facility] [address] [place] [id number] [place] [address] 17898- 5036 Jan, [facility] [address] [place] [id number] [place] [address] 51767- 7849 Jan, [facility] [address] [place] [id number] [place] [address] 42265- 9552 Jan, Tinea pedis of both feet B35.3 [place] [address] [place] [id number] [place] [address] 57879- 0112 Jan, Type 2 diabetes mellitus with diabetic [...] seasonality J30.9 and Encounter for immunization Z23 [facility] [id number] [place] [address] 77421- 1313 Jan, [facility] [address] [address] 1773 Jan, [facility] [id number] [place] [address] 83047- 9102 Dec, [facility] [address] [address] 7[address] Dec, [facility] [id number] [place] [address] 71064 -2470 Dec, Unspecified asthma with (acute) exacerbation J45.901 and Chronic obstructive pulmonary disease with (acute) exacerbation J44.1 [facility] [address] [place] [id number] [place] [address] 31240- 3839 Dec, Arthritis of both knees M19.90 and Acute medial meniscus tear, right, initial encounter S83.241A [facility] [address] [place] [id number] [place] [address] 71306- 8120 Dec, [facility] [address] [address]- 3961 Dec, [facility] [id number] [place] [address] 65285- 2308 Dec, [facility] [address] [address]- 0804 Dec, [facility] [address] [place] [address]- 0712 Dec, History of pneumonia Z87.01 [facility] [address] [place] [address]- 9289 Dec, [facility] [address] [place] [id number] [place] [address] 03150- 4567 Dec, [facility] [address] [id number] [address]- 3545 Dec, [facility] [address] [place] [address]- 5975 Dec, [place] [address] [place] [address]- 7939 Dec, [place] [id number] [place] [address] 74366- 5221 Dec, [place] [id number] [place] [address] 01238- 3883 30 Nov, 2015 Cough R05 and Pneumonia due to infectious organism, unspecified laterality, unspecified part of lung J18.9 [place] [id number] [place] [address] 68452- 1831 Nov, [place] [address] [place] [id number] [place] [address] 90556- 4407 Nov, Type 2 diabetes mellitus with diabetic [...] allergic rhinitis trigger, unspecified rhinitis seasonality J30.9 [place] [id number] [place] [address] 21042- 6047 Nov, IMMUNIZATIONS No Known Immunizations SOCIAL HISTORY Never Assessed REASON FOR VISIT FYI PLAN OF CARE VITAL SIGNS MEDICATIONS Unknown Medications RESULTS No Results PROCEDURES No Known procedures INSTRUCTIONS MEDICATIONS ADMINISTERED No Known Medications MEDICAL (GENERAL) HISTORY Type Description Date Medical History hypertension Medical History chronic obstructive pulmonary disease (COPD)-wears 2L O2 per [place], uses [employer] [facility] for home O2 Medical History Arthritis-knees and [...] [facility] 2014 Hospitalization History COPD exacerbation--[facility] 12/27/2015 [facility] 02/2016 [facility] 11/2016 Hospitalization History COPD exacerbation - Dr Hartley Attending 12/2016 Hospitalization History Cough- [facility] [place] 04/10/2017 [facility]ization [facility] - Possible Pneumonia 06/2017 Hospitalization History COPD hiatal hernia 08/2017
--- OUTSIDE RECORDS SUMMARY | 2018-01-05 16:03 | XMS REPORT ---
Author Author DARIN HARTLEY Organization [facility] Address [address] [place] [address] Care Team Providers Care Bread Racker Name Role Phone DARIN HARTLEY Unavailable PROBLEMS Type Condition ICD9-CM Code PEZ21-ES Code Onset Dates Condition Status SNOMED Code Problem Osteoarthritis of both knees, unspecified osteoarthritis type M17.0 Active 682359948 Problem Chronic GERD K21.9 Active 411002501 Problem Chronic pain syndrome G89.4 Active 472824839 Problem 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 Active 858816955 Problem 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 Active 617302413846253 Problem Nocturnal hypoxemia G47.34 Active 402209546 Problem Gastroesophageal reflux disease without esophagitis K21.9 Active 082691020 Problem Recurrent major depressive disorder, in partial 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 Active 88565303 Problem 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 Active 699362102 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 Active 0755511 Problem Hypoxia R09.02 Active 458317904 Problem Elevated transaminase level R74.0 Active 070114392 Problem 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 Active 839332465 Problem Essential hypertension I10 Active 37969501 Problem Anxiety F41.9 Active 67440646 Problem Chronic obstructive pulmonary disease, unspecified COPD type J44.9 Active 49508926 Problem Allergic rhinitis, unspecified allergic rhinitis trigger, unspecified rhinitis seasonality J30.9 Active 58947630 Problem Mixed hyperlipidemia E78.2 Active 923211541 Problem Type 2 diabetes mellitus with diabetic neuropathy, without long-term current use of insulin E11.40 Active 70546487 ALLERGIES No Information ENCOUNTERS Encounter Location Date Diagnosis [facility] [address] [facility] [id number] [address] Oct, [facility] [address] [facility] [id number] [address] Oct, Essential hypertension I10 [facility] [id number] [place] [address] 04860- 9808 Oct, Type 2 diabetes mellitus with diabetic neuropathy, without long-term current use of insulin E11.40 ; Chronic obstructive pulmonary disease , unspecified COPD type J44.9 ; Mixed hyperlipidemia E78.2 ; Osteoarthritis of both knees, unspecified osteoarthritis type M17.0 ; Alzheimers disease with early onset G30.0 and Essential hypertension I10 [facility] [id number] [place] [address] 54253- 7454 Oct, [facility] [id number] [place] [address] 39175- 7336 Oct, [facility] [address] 9[address]63- 5817 Oct, Yeast dermatitis B37.2 [facility] [id number] [place] [address] 38489- 2225 Oct, Chronic pain syndrome G89.4 [facility] [id number] [place] [address] 67406- 5858 Sep, [facility] [address] 36586- 3945 Sep, [facility] [id number] [place] [address] 97948- 4612 Sep, Alzheimers disease with early onset G30.0 and Chronic pain syndrome G89.4 [facility] [id number] [place] [address] 53624- 3508 Sep, COPD with acute exacerbation J44.1 [facility] [id number] [place] [address] 15562- 6062 Sep, [facility] [id number] [place] [address] 37395- 0635 Sep, [facility] [id number] [place] [address] 00771- 4180 Sep, Gastroesophageal reflux disease without esophagitis K21.9 [facility] [id number] [place] [address] 05854- 0449 Aug, [facility] [id number] [place] [address] 95743- 5182 Aug, [facility] [id number] [place] [address] 75290- 8807 Aug, 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 ; Hospital discharge follow-up Z09 ; Chronic obstructive pulmonary disease, unspecified COPD type J44.9 and Chronic GERD K21.9 [facility] [facility] [address] 83257- 8439 Aug, Chronic pain syndrome G89.4 [place] [address] 29803- 5511 Aug, [place] [address] 15983- 9704 Aug, [facility] [place] [id number] [place] [address] 53283- 1749 18 Aug, 2017 Chronic pain syndrome G89.4 and Alzheimers disease with early onset G30.0 [place] [id number] [place] [address] 39083- 4810 18 Aug, 2017 Type 2 diabetes mellitus with diabetic neuropathy, without long-term current use of insulin E11.40 ; Chronic obstructive pulmonary disease , unspecified COPD type J44.9 ; Chronic GERD K21.9 and 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 [place] [id number] [place] [address] 13857- 9968 Aug, [place] [address] 13269- 0559 Aug, Essential hypertension I10 and Cough R05 [place] [id number] [place] [address] 88085- 6160 Aug, [place] [address] 25582- 1525 Aug, [facility] [address] [address] 8310 Aug, [facility] [id number] [place] [address] 94225- 5761 Aug, Chronic pain syndrome G89.4 [facility] [id number] [place] [address] 46906- 6507 Aug, [facility] [id number] [place] [address] 04654- 5992 Aug, [facility] [id number] [place] [address] 76625- 4540 July, Gastroesophageal reflux disease without esophagitis K21.9 [facility] [id number] [place] [address] 40315- 6414 July, [facility] [id number] [place] [address] 18134- 6729 July, [facility] [id number] [place] [address] 99550- 8199 July, [facility] [id number] [place] [address] 69942- 0042 July, Essential hypertension I10 and Chronic pain syndrome G89.4 [facility] [id number] [place] [address] 84490- 7524 July, Gastroesophageal reflux disease without esophagitis K21.9 [facility] [id number] [place] [address] 69963- 4000 July, Alzheimers disease with early onset G30.0 [facility] [id number] [place] [address] 84707- 9979 July, Chronic obstructive pulmonary disease, unspecified COPD type J44.9 ; Nocturnal cough R05 ; 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 and Recurrent major depressive disorder, in partial 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 [facility] [id number] [place] [address] 13098- 1966 July, [facility] [address] 06215- 0534 July, Type 2 diabetes mellitus with diabetic neuropathy, without long-term current use of insulin E11.40 [facility] [id number] [place] [address] 03467- 0207 July, Nocturnal hypoxemia G47.34 ; Chronic obstructive pulmonary disease, unspecified COPD type J44.9 and Nocturnal cough R05 [facility] [address] 32237- 2022 July, [place] [address] 14163- 8478 July, [facility] [address] 87741- 6266 July, [facility] [address] 86597- 2837 Jun, Chronic pain syndrome G89.4 [facility] [address] 49152- 5621 Jun, [facility] [id number] [place] [address] 38890- 0773 Jun, [facility] [id number] [place] [address] 65755- 4053 Jun, Alzheimers disease with early onset G30.0 [facility] [id number] [place] [address] 17553- 8861 Jun, [facility] [id number] [place] [address] 84081- 7849 Jun, Gastroesophageal reflux disease without esophagitis K21.9 [facility] [id number] [place] [address] 61812- 2227 Jun, Allergic rhinitis, unspecified allergic rhinitis trigger, unspecified rhinitis seasonality J30.9 [facility] [id number] [place] [address] 19761- 9583 Jun, Chronic pain syndrome G89.4 [facility] [id number] [place] [address] 95923- 2535 May, [facility] [id number] [place] [address] 49302- 0270 May, COPD with acute exacerbation J44.1 [facility] [address] 41044- 7613 14 May, 2017 Type 2 diabetes mellitus with diabetic neuropathy, without long-term current use of insulin E11.40 ; COPD with acute exacerbation J44.1 ; Hypoxia R09.02 ; Chronic pain syndrome G89.4 ; Yeast dermatitis B37.2 ; Alzheimers disease with early onset G30.0 and 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 [place] [id number] [place] [address] 17472- 2138 May, [facility] [address] 52670- 3910 May, Chronic pain syndrome G89.4 [place] [id number] [place] [address] 45021- 4660 May, [facility] [id number] [place] [address] 39076- 1354 May, [facility] [id number] [place] [address] 01100- 1903 May, Mixed hyperlipidemia E78.2 [facility] [id number] [place] [address] 65969- 5738 May, Chronic pain syndrome G89.4 [facility] [id number] [place] [address] 53853- 7315 May, Anxiety F41.9 and Chronic pain syndrome G89.4 [facility] [id number] [place] [address] 90968- 9021 Mar, [facility] [address] [address]- 8103 Mar, [facility] [id number] [place] [address] 79175- 4240 Mar, [facility] [address] [address]- 2976 Mar, [facility] [id number] [place] [address] 25657- 9010 Mar, [facility] [id number] [place] [address] 20207- 7197 Mar, Anxiety F41.9 and Chronic pain syndrome G89.4 [place] [address] [place] [address] 37187- 3044 Mar, Medicare annual wellness visit, initial Z00.00 [...] L57.0 [facility] [address] [address]- 3392 Mar, [facility] [address] [address]- 0598 Mar, Chronic pain syndrome G89.4 [facility] [address] [address]- 8590 Feb, [facility] [address] [address]- 2434 Feb, Chronic pain syndrome G89.4 [place] [id number] [place] [address] 92103- 7799 Feb, [facility] [id number] [place] [address] 74489- 6770 Feb, [facility] [id number] [place] [address] 15692- 6740 Feb, Anxiety F41.9 [facility] [address] 91073- 8249 Feb, [facility] [id number] [place] [address] 60327- 6813 Feb, Chronic pain syndrome G89.4 [facility] [id number] [place] [address] 96934- 9533 Jan, Essential hypertension I10 [facility] [address] 56219- 5978 Jan, Chronic pain syndrome G89.4 [facility] [id number] [place] [address] 94426- 7803 Jan, [facility] [address] 51927- 1944 Jan, Anxiety F41.9 [facility] [id number] [place] [address] 12185- 5411 Jan, Encounter for immunization Z23 and Community acquired pneumonia, unspecified laterality J18.9 [facility] [id number] [place] [address] 27353- 3426 Jan, Type 2 diabetes mellitus with diabetic neuropathy, without long-term current use of insulin E11.40 [facility] [id number] [place] [address] 03800- 1368 Dec, Anxiety F41.9 and Chronic pain syndrome G89.4 [facility] [id number] [place] [address] 88691- 7865 Dec, Chronic pain syndrome G89.4 and Essential hypertension I10 [facility] [id number] [place] [address] 59665- 3141 16 Dec, 2016 [facility] [address] 66271- 5343 10 Dec, 2016 Anxiety F41.9 [facility] [id number] [place] [address] 13539- 0299 10 Dec, 2016 [facility] [address] 64558- 8164 04 Dec, 2016 Type 2 diabetes mellitus with diabetic neuropathy, without long-term current use of insulin E11.40 ; Lactic acidosis E87.2 ; Chronic obstructive pulmonary disease, unspecified COPD type J44.9 and Encounter for immunization Z23 [facility] [id number] [place] [address] 37258- 2251 02 Dec, 2016 Chronic pain syndrome G89.4 [facility] [address] 29185- 3206 28 Nov, 2016 [facility] [id number] [place] [address] 47365- 1048 21 Nov, 2016 Chronic pain syndrome G89.4 [facility] [id number] [place] [address] 91380- 7292 Nov, [facility] [id number] [place] [address] 79489- 7059 Nov, [facility] [id number] [place] [address] 99722- 5886 15 Nov, 2016 Anxiety F41.9 [facility] [id number] [place] [address] 55505- 6155 11 Nov, 2016 Anxiety F41.9 [facility] [id number] [place] [address] 30732- 2029 08 Nov, 2016 [facility] [id number] [place] [address] 06406- 5983 05 Nov, 2016 [facility] [address] [id number] [address]- 3546 Nov, [facility] [id number] [place] [address] 73046- 2540 Oct, [facility] [id number] [place] [address] 72912- 3373 Oct, [facility] [id number] [place] [address] 51662- 8781 Oct, [facility] [id number] [place] [address] 97061- 4633 Oct, Essential hypertension I10 and Chronic pain syndrome G89.4 [facility] [id number] [place] [address] 94665- 9270 Oct, Anxiety F41.9 [facility] [id number] [place] [address] 44171- 2775 Oct, [facility] [id number] [place] [address] 47763- 3574 Oct, Chronic pain syndrome G89.4 [facility] [id number] [place] [address] 89316 -9214 Oct, Sore throat J02.9 and Acute nasopharyngitis (common cold) J00 [facility] [address] [address]- 3560 Sep, [facility] [id number] [place] [address] 08869- 9080 Sep, COPD exacerbation J44.1 [facility] [address] [place] [address] 74027- 9680 Sep, Chronic pain syndrome G89.4 [facility] [id number] [place] [address] 00628- 3874 Sep, Essential hypertension I10 [facility] [id number] [place] [address] 65976- 0999 Sep, [facility] [id number] [place] [address] 23034- 2132 Sep, [facility] [id number] [place] [address] 76438- 0049 Sep, Anxiety F41.9 [facility] [id number] [place] [address] 68021- 8008 Sep, Chronic pain syndrome G89.4 [facility] [id number] [place] [address] 97780- 7198 Sep, [facility] [id number] [place] [address] 44361- 4392 Aug, Acute seasonal allergic rhinitis, unspecified trigger J30.2 ; Hiatal hernia K44.9 and Chronic pain syndrome G89.4 [facility] [id number] [place] [address] 42726- 2856 Aug, [facility] [id number] [place] [address] 06638- 4006 Aug, [facility] [id number] [place] [address] 01114- 6683 Aug, Chronic obstructive pulmonary disease, unspecified COPD type J44.9 [facility] [id number] [place] [address] 11077- 4434 Aug, Anxiety F41.9 [facility] [id number] [place] [address] 77554- 7497 08 Aug, 2016 Chronic pain syndrome G89.4 [facility] [address] [place] [address] 68568- 5176 Aug, Hiatal hernia K44.9 and Actinic keratosis L57.0 [facility] [id number] [place] [address] 94299- 6136 Aug, [facility] [id number] [place] [address] 52605- 9312 Aug, Anxiety F41.9 [facility] [address] [address]- 8213 July, [facility] [id number] [place] [address] 52654- 6037 July, Hiatal hernia K44.9 [facility] [id number] [place] [address] 11128- 2247 July, [facility] [id number] [place] [address] 45420- 7374 July, Anxiety F41.9 and Chronic pain syndrome G89.4 [facility] [id number] [place] [address] 19160- 9132 July, [facility] [id number] [place] [address] 96977- 4484 Jun, Chronic pain syndrome G89.4 [facility] [id number] [place] [address] 87588- 8519 Jun, Chronic pain syndrome G89.4 [facility] [id number] [place] [address] 77936- 4728 Jun, [facility] [id number] [place] [address] 39296- 7860 Jun, Anxiety F41.9 [facility] [id number] [place] [address] 38646- 8458 Jun, Allergic rhinitis, unspecified allergic rhinitis trigger, unspecified rhinitis seasonality J30.9 [facility] [id number] [place] [address] 07876- 9658 Jun, [facility] [id number] [place] [address] 04269- 0848 May, Chronic pain syndrome G89.4 [facility] [id number] [place] [address] 03205- 2955 May, [facility] [id number] [place] [address] 27422- 3954 May, [place] [id number] [place] [address]- 5585 May, Anxiety F41.9 [place] [id number] [place] [address] 2543 May, Type 2 diabetes mellitus with diabetic [...] and Chronic pain syndrome G89.4 [facility] [id number] [place] [address] 17336- 8538 May, Essential hypertension I10 ; Type 2 diabetes mellitus with diabetic neuropathy, without long-term current use of insulin E11.40 ; Mixed hyperlipidemia E78.2 ; Chronic obstructive pulmonary disease, unspecified COPD type J44.9 and Chronic GERD K21.9 [place] [address] [place] [id number] [place] [address] [id number]- 5784 May, [place] [id number] [place] [address] 30469- 0052 May, [place] [address] [place] [id number] [place] [address] 09390- 4225 May, Type 2 diabetes mellitus with diabetic neuropathy, without long-term current use of insulin E11.40 [place] [id number] [place] [address] 23021- 3855 May, Dementia without behavioral disturbance, unspecified dementia type F03.90 [place] [id number] [place] [address] 47386- 9205 May, Type 2 diabetes mellitus with diabetic neuropathy, without long-term current use of insulin E11.40 ; Essential hypertension I10 ; Mixed hyperlipidemia E78.2 ; Chronic obstructive pulmonary disease, unspecified COPD type J44.9 ; Chronic GERD K21.9 and Osteoarthritis of both knees, unspecified osteoarthritis type M17.0 [place] [address] [place] [id number] [place] [address] 79569- 8653 May, [place] [address] [place] [id number] [place] [address] 02474- 9059 May, [facility] [address] [place] [id number] [place] [address] 07364- 9910 May, Anxiety F41.9 and Unspecified symptoms and signs involving cognitive functions and awareness R41.9 [place] [address] [place] [id number] [place] [address] 87420- 4006 May, [place] [address] [id number] [place] [address] 69616- 4736 May, Type 2 diabetes mellitus with diabetic neuropathy, without long-term current use of insulin E11.40 ; Anxiety F41.9 and Chronic obstructive pulmonary disease, unspecified COPD type J44.9 [place] [address] [place] [id number] [place] [address] 43005- 1877 May, [place] [address] [place] [id number] [place] [address] 95537- 5452 May, [facility] [address] [id number] [place] [address] 06358- 8060 May, [facility] [id number] [place] [address] 67677- 8322 May, Chronic obstructive pulmonary disease, unspecified COPD type J44.9 [place] [id number] [place] [address] 94144- 9403 Mar, [place] [id number] [place] [address] 86539- 6365 Mar, Arthritis of both knees M19.90 [place] [id number] [place] [address] 03830- 0762 Mar, Type 2 diabetes mellitus with diabetic neuropathy, without long-term current use of insulin E11.40 [place] [address] 9[address]01- 0139 Mar, [place] [address] 94851- 8593 Mar, Neck pain M54.2 and Weakness generalized R53.1 [place] [address] 60604- 2697 Mar, [place] [address] 83205- 2189 Mar, Cervicalgia M54.2 and Impacted cerumen of both ears H61.23 [place] [address] 80877- 2081 Mar, [place] [address] 64001- 7439 Mar, Type 2 diabetes mellitus with diabetic neuropathy, without long-term current use of insulin E11.40 [place] [id number] [place] [address] 07230- 4825 Feb, [place] [id number] [place] [address] 86507- 3916 Feb, Hypoxia R09.02 [place] [id number] [place] [address] 75847- 4900 Feb, [place] [id number] [place] [address] 92162- 0823 Feb, [place] [id number] [place] [address] 75717- 9053 Feb, [place] [id number] [place] [address] 88601- 6681 Feb, Type 2 diabetes mellitus with diabetic neuropathy, without long-term current use of insulin E11.40 [place] [id number] [place] [address] 42542- 1804 Feb, Osteoarthritis of both knees, unspecified osteoarthritis type M17.0 [facility] [id number] [place] [address] 36901- 3930 Feb, [facility] [id number] [place] [address] 79025- 9971 Feb, [facility] [id number] [place] [address] 08952- 0827 Feb, [facility] [id number] [place] [address] 45950- 7244 Jan, [facility] [id number] [place] [address] 27275- 9107 Jan, [facility] [id number] [place] [address] 56100- 5665 Jan, [facility] [id number] [place] [address] 10198- 2028 Jan, [facility] [id number] [place] [address] 58096- 1001 Jan, Tinea pedis of both feet B35.3 [place] [id number] [place] [address] 19529- 3176 Jan, Type 2 diabetes mellitus with diabetic [...] Z23 [facility] [id number] [place] [address] 96689- 2526 Jan, [facility] [id number] [address] 3968 Jan, [facility] [id number] [place] [address] 56698- 6992 Dec, [facility] [id number] [address] 0977 Dec, [facility] [id number] [place] [address] 87912 -5788 Dec, Unspecified asthma with (acute) exacerbation J45.901 and Chronic obstructive pulmonary disease with (acute) exacerbation J44.1 [facility] [id number] [place] [address] 11257- 0607 Dec, Arthritis of both knees M19.90 and Acute medial meniscus tear, right, initial encounter S83.241A [facility] [id number] [place] [address] 61596- 7105 Dec, [facility] [id number] [address]- 8902 Dec, [facility] [id number] [place] [address] 61088- 1126 Dec, [facility] [id number] [address]- 0401 Dec, [facility] [id number] [address]- 4382 Dec, History of pneumonia Z87.01 [facility] [id number] [address]- 5799 Dec, [facility] [id number] [place] [address] 14693- 2764 Dec, [facility] [id number] [address] 2009 Dec, [facility] [id number] [address]- 9596 Dec, [place] [id number] [address]- 8673 Dec, [place] [id number] [place] [address] 28823- 5695 Dec, [place] [id number] [place] [address] 76901- 5354 30 Nov, 2015 Cough R05 and Pneumonia due to infectious organism, unspecified laterality, unspecified part of lung J18.9 [place] [id number] [place] [address] 92886- 2063 Nov, [place] [id number] [place] [address] 61360- 8144 Nov, Type 2 diabetes mellitus with diabetic [...] allergic rhinitis trigger, unspecified rhinitis seasonality J30.9 [place] [id number] [place] [address] 41039- 0167 Nov, IMMUNIZATIONS No Known Immunizations SOCIAL HISTORY Never Assessed REASON FOR VISIT Call from spouse/patient PLAN OF CARE VITAL SIGNS MEDICATIONS Unknown Medications RESULTS No Results PROCEDURES No Known procedures INSTRUCTIONS MEDICATIONS ADMINISTERED No Known Medications MEDICAL (GENERAL) HISTORY Type Description Date Medical History hypertension Medical History chronic obstructive pulmonary disease (COPD)-wears 2L O2 per [place], uses [place] for home O2 Medical History [...] TIA, [facility] 2014 Hospitalization History COPD exacerbation--[facility] 12/27/2015 [facility] - [facility] 02/2016 [facility] 11/2016 Hospitalization History COPD exacerbation - Dr Hartley Attending 12/2016 Hospitalization History Cough- [facility] [place] 04/10/2017 Hospitalization History [facility] - Possible Pneumonia 06/2017 Hospitalization History COPD hiatal hernia 08/2017
[2018-01-05] MEDS ORDERED: FAMOTIDINE 20 MG (PEPCID) TABLET PO STA (16:14)
[2018-01-05] MEDS ORDERED: NS IV 500 ML 500 ML IV ONE (16:14)
[2018-01-05] MEDS ORDERED: LIDOCAINE 2% VISCOUS 15 ML UDC PO ONE (16:15)
[2018-01-05] MEDS ORDERED: RT-ALBUTEROL/IPRATROPIUM 3 ML (DUONEB) VIAL INH ONE (16:15)
[2018-01-05] MEDS ORDERED: ANTACID SUSP 30 ML UDC (MYLANTA) PO ONE (16:15)
--- OUTSIDE RECORDS SUMMARY | 2018-01-05 16:21 | XMS REPORT ---
Author Author DEBBIE RIVERA [facility] Address [address] [place] [address] Care Team Providers Care Scratch Brusher Name Role Phone DEBBIE RIVERA Unavailable PROBLEMS ALLERGIES ENCOUNTERS IMMUNIZATIONS No Known Immunizations SOCIAL HISTORY No smoking Hx information available REASON FOR VISIT PLAN OF CARE VITAL SIGNS MEDICATIONS RESULTS No Results PROCEDURES INSTRUCTIONS MEDICATIONS ADMINISTERED No Known Medications MEDICAL (GENERAL) HISTORY
--- OUTSIDE RECORDS SUMMARY | 2018-01-05 16:22 | XMS REPORT ---
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 Active 853907921 Problem Mixed hyperlipidemia E78.2 Active 581542614 Problem Type 2 diabetes mellitus with diabetic neuropathy, without long-term current use of insulin E11.40 Active 20102409 Problem Chronic obstructive pulmonary disease, unspecified COPD type J44.9 Active 07230079 Problem Hypoxia R09.02 Active 834319650 Problem Osteoarthritis of both knees, unspecified osteoarthritis type M17.0 Active 278260937 Problem Allergic rhinitis, unspecified allergic rhinitis trigger, unspecified rhinitis seasonality J30.9 Active 27931290 Problem Chronic pain syndrome G89.4 Active 842500182 ALLERGIES No Information ENCOUNTERS Encounter Location Date Diagnosis [facility] [address] [address] Dec, [facility] [id number] [place] [address] 42048- 4801 Dec, [facility] [address] [address]- 5342 Dec, [facility] [address] 7[address]27- 9413 Nov, [facility] [address] 44605- 6990 Nov, Encounter for immunization Z23 [facility] [address] 13600- 3146 Nov, [facility] [address] 57488- 7776 Nov, Dermatitis associated with moisture L30.8 ; Pressure injury of buttock, stage 1, unspecified laterality L89.301 and Seasonal allergies J30.2 [facility] [address] 31413- 4857 Nov, [facility] [address] 39778- 0690 Nov, [facility] [address] 41083- 9918 17 Nov, 2017 Alzheimers disease with early onset G30.0 [facility] [address] 20582- 8970 14 Nov, 2017 [facility] [address] 78762- 2210 12 Nov, 2017 Unspecified urinary incontinence R32 and Unspecified contact dermatitis due to other agents L25.8 [facility] [address] 82344- 8353 11 Nov, 2017 Chronic pain syndrome G89.4 [facility] [address] 66248- 3513 10 Nov, 2017 Type 2 diabetes mellitus with diabetic neuropathy, without long-term current use of insulin E11.40 [facility] [id number] [place] [address] 46579- 9886 Nov, [facility] [address] 97631- 8107 Nov, Chronic obstructive pulmonary disease, unspecified COPD type J44.9 and Gastroesophageal reflux disease without esophagitis K21.9 [facility] [address] 51062- 5901 Oct, [facility] [id number] [place] [address] 74323- 9981 Oct, [facility] [address] 77595- 0828 Oct, Chronic pain syndrome G89.4 [facility] [id number] [place] [address] 54924- 3771 Oct, Community acquired bacterial pneumonia J15.9 ; Allergic rhinitis, unspecified allergic rhinitis trigger, unspecified rhinitis seasonality J30.9 ; Type 2 diabetes mellitus with diabetic neuropathy, without long-term current use of insulin E11.40 ; Chronic GERD K21.9 and Chronic obstructive pulmonary disease, unspecified COPD type J44.9 [facility] [id number] [place] [address] 22876- 7551 Oct, [facility] [id number] [place] [address] 42555- 1314 Oct, [facility] [id number] [place] [address] 82851- 8875 Oct, [facility] [id number] [place] [address] 58836- 8587 Oct, [facility] [id number] [place] [address] 90412- 1377 Oct, Essential hypertension I10 [facility] [id number] [place] [address] 26484- 5150 Oct, Type 2 diabetes mellitus with diabetic neuropathy, without long-term current use of insulin E11.40 ; Chronic obstructive pulmonary disease , unspecified COPD type J44.9 ; Mixed hyperlipidemia E78.2 ; Osteoarthritis of both knees, unspecified osteoarthritis type M17.0 ; 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 and Essential hypertension I10 [facility] [id number] [place] [address] 66586- 0117 Oct, [facility] [address] 54902- 7494 Oct, [facility] [address] 21970- 9285 Oct, Yeast dermatitis B37.2 [facility] [address] 06563- 4391 Oct, Chronic pain syndrome G89.4 [facility] [id number] [place] [address] 54514- 4046 Sep, [facility] [address] 48415- 5806 Sep, [facility] [id number] [place] [address] 45885- 3520 Sep, 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 and Chronic pain syndrome G89.4 [facility] [id number] [place] [address] 90849- 1687 Sep, COPD with acute exacerbation J44.1 [facility] [id number] [place] [address] 34397- 5292 Sep, [facility] [id number] [place] [address] 93379- 9686 Sep, [facility] [address] 36918- 9987 Sep, Gastroesophageal reflux disease without esophagitis K21.9 [facility] [id number] [place] [address] 05004- 6170 Aug, [facility] [address] [place] [address] 7230 Aug, [facility] [id number] [place] [address] 75371- 8231 Aug, 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 ; Hospital discharge follow-up Z09 ; Chronic obstructive pulmonary disease, unspecified COPD type J44.9 and Chronic GERD K21.9 [facility] [address] 24930- 5392 Aug, Chronic pain syndrome G89.4 [facility] [id number] [place] [address] 57182- 4632 Aug, [facility] [id number] [place] [address] 45008- 4950 Aug, [facility] [id number] [place] [address] 51870- 8468 Aug, Chronic pain syndrome G89.4 and 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 [facility] [id number] [place] [address] 86353- 3212 18 Aug, 2017 Type 2 diabetes mellitus with diabetic neuropathy, without long-term current use of insulin E11.40 ; Chronic obstructive pulmonary disease , unspecified COPD type J44.9 ; Chronic GERD K21.9 and 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 [facility] [id number] [place] [address] 24232- 9838 Aug, [facility] [id number] [place] [address] 77726- 1586 Aug, Essential hypertension I10 and Cough R05 [facility] [id number] [place] [address] 04154- 5021 Aug, [facility] [id number] [place] [address] 98591- 5986 12 Aug, 2017 [facility] [id number] [place] [address] 55325- 9234 07 Aug, 2017 [facility] [address] [address] 2879 Aug, Chronic pain syndrome G89.4 [facility] [address] [address] 5681 Aug, [facility] [address] [address]- 8154 Aug, [facility] [id number] [place] [address] 80336- 7056 July, Gastroesophageal reflux disease without esophagitis K21.9 [facility] [id number] [place] [address] 44029- 5145 July, [facility] [id number] [place] [address] 46842- 7739 July, [facility] [id number] [place] [address] 87398- 2763 July, [facility] [id number] [place] [address] 79384- 1249 July, Essential hypertension I10 and Chronic pain syndrome G89.4 [facility] [id number] [place] [address] 12494- 2590 July, Gastroesophageal reflux disease without esophagitis K21.9 [facility] [address] [address]- 7529 July, Alzheimers disease with early 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 [facility] [address] [address]- 9466 July, Chronic obstructive pulmonary disease, unspecified COPD type J44.9 ; Nocturnal cough R05 ; 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 and Recurrent major depressive disorder, in partial 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 [facility] [address] [address]- 6957 July, [facility] [id number] [place] [address] 65073- 5970 July, Type 2 diabetes mellitus with diabetic neuropathy, without long-term current use of insulin E11.40 [facility] [id number] [place] [address] 40272- 7288 July, Nocturnal hypoxemia G47.34 ; Chronic obstructive pulmonary disease, unspecified COPD type J44.9 and Nocturnal cough R05 [facility] [id number] [place] [address] 16436- 8652 July, [facility] [address] 35283- 7167 July, [facility] [address] 87450- 0834 July, [facility] [address] 94690- 4571 Jun, Chronic pain syndrome G89.4 [facility] [address] 58298- 1075 Jun, [facility] [address] 54868- 1319 Jun, [facility] [address] 50673- 9618 Jun, Alzheimers disease with early onset G30.0 [facility] [id number] [place] [address] 45610- 6524 Jun, [facility] [id number] [place] [address] 53137- 7716 Jun, Gastroesophageal reflux disease without esophagitis K21.9 [facility] [id number] [place] [address] 91534- 0620 Jun, Allergic rhinitis, unspecified allergic rhinitis trigger, unspecified rhinitis seasonality J30.9 [facility] [id number] [place] [address] 55855- 1054 Jun, Chronic pain syndrome G89.4 [facility] [address] 47750- 1857 May, [facility] [address] 36324- 2045 May, COPD with acute exacerbation J44.1 [facility] [id number]- [address] 14 May, 2017 Type 2 diabetes mellitus with diabetic neuropathy, without long-term current use of insulin E11.40 ; COPD with acute exacerbation J44.1 ; Hypoxia R09.02 ; Chronic pain syndrome G89.4 ; Yeast dermatitis B37.2 ; Alzheimers disease with early 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 and 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 [facility] [address] 26579- 6920 May, [facility] [address] 17136- 4600 May, Chronic pain syndrome G89.4 [facility] [address] 30236- 8936 May, [facility] [address] 78769- 5573 May, [facility] [address] 47865- 6664 May, Mixed hyperlipidemia E78.2 [facility] [address] 41015- 1239 May, Chronic pain syndrome G89.4 [facility] [address] 81386- 0023 May, Anxiety F41.9 and Chronic pain syndrome G89.4 [facility] [address] 03668- 0991 Mar, [facility] [address] 37767- 5623 Mar, [facility] [address]- 2546 Mar, [facility] [address] [place] [address] 82218- 1050 Mar, [facility] [address] [place] [address] 00490- 5157 Mar, [facility] [id number] [place] [address] 53001- 4967 Mar, Anxiety F41.9 and Chronic pain syndrome G89.4 [facility] [address] [place] [address] 16590- 9517 Mar, Medicare annual wellness visit, initial Z00.00 [...] Hiatal hernia K44.9 and Actinic keratosis L57.0 [facility] [address] [address]- 5840 Mar, [facility] [address] [place] [address] 55598- 5531 Mar, Chronic pain syndrome G89.4 [facility] [address] [address]- 7809 Feb, [facility] [id number] [place] [address] 03022- 9718 Feb, Chronic pain syndrome G89.4 [facility] [id number] [place] [address] 72824- 4526 Feb, [facility] [id number] [place] [address] 44628- 1230 Feb, [facility] [id number] [place] [address] 10635- 1891 Feb, Anxiety F41.9 [facility] [address] 16867- 0020 Feb, [facility] [address] 23058- 2465 Feb, Chronic pain syndrome G89.4 [facility] [address] 24255- 3697 Jan, Essential hypertension I10 [facility] [address] 00041- 6866 Jan, Chronic pain syndrome G89.4 [facility] [address] 66813- 8912 Jan, [facility] [address] 09096- 3554 Jan, Anxiety F41.9 [facility] [address] 71161- 5825 Jan, Encounter for immunization Z23 and Community acquired pneumonia, unspecified laterality J18.9 [facility] [address] 53706- 5959 Jan, Type 2 diabetes mellitus with diabetic neuropathy, without long-term current use of insulin E11.40 [facility] [id number] [place] [address] 97887- 9865 Dec, Anxiety F41.9 and Chronic pain syndrome G89.4 [facility] [address] 91552- 0493 Dec, Chronic pain syndrome G89.4 and Essential hypertension I10 [facility] [address] 45914- 7807 Dec, [facility] [address] 67116- 7542 Dec, Anxiety F41.9 [facility] [id number] [place] [address] 16745 2546 Dec, [facility] [id number] [place] [address] 70111 2546 Dec, Type 2 diabetes mellitus with diabetic neuropathy, without long-term current use of insulin E11.40 ; Lactic acidosis E87.2 ; Chronic obstructive pulmonary disease, unspecified COPD type J44.9 and Encounter for immunization Z23 [facility] [id number] [place] [address] 11969- 8600 Dec, Chronic pain syndrome G89.4 [facility] [id number] [place] [address] 68912 2546 Nov, [facility] [id number] [place] [address] 76658 2549 Nov, Chronic pain syndrome G89.4 [facility] [address] [place] [address] 69932 2546 Nov, [facility] [id number] [place] [address] 87449 2546 Nov, [facility] [id number] [place] [address] 61369 2542 15 Nov, 2016 Anxiety F41.9 [facility] [id number] [place] [address] 25345 2546 11 Nov, 2016 Anxiety F41.9 [facility] [address] [place] [address] 32954 2546 08 Nov, 2016 [facility] [id number] [place] [address] 69550 2546 05 Nov, 2016 [facility] [address] [place] [address] 87313 2546 Nov, [facility] [id number] [place] [address] 92328- 4510 Oct, [facility] [address] [address]- 3082 Oct, [facility] [id number] [place] [address] 82134- 3468 Oct, [facility] [id number] [place] [address] 63769- 9189 Oct, Essential hypertension I10 and Chronic pain syndrome G89.4 [facility] [id number] [place] [address] 65980- 0967 Oct, Anxiety F41.9 [facility] [id number] [place] [address] 32946- 8247 Oct, [facility] [id number] [place] [address] 29458- 9242 Oct, Chronic pain syndrome G89.4 [facility] [address] [place] [address] 20501 -8937 Oct, Sore throat J02.9 and Acute nasopharyngitis (common cold) J00 [facility] [id number] [place] [address] 21807- 2001 Sep, [facility] [id number] [place] [address] 81643- 3899 Sep, COPD exacerbation J44.1 [facility] [id number] [place] [address] 45365- 3841 Sep, Chronic pain syndrome G89.4 [facility] [address] [address]- 4386 Sep, Essential hypertension I10 [facility] [address] [place] [address] 23438- 4604 Sep, [facility] [id number] [place] [address] 62514- 1968 Sep, [facility] [id number] [place] [address] 02862- 7144 Sep, Anxiety F41.9 [facility] [id number] [place] [address] 37176- 7644 05 Sep, 2016 Chronic pain syndrome G89.4 [facility] [id number] [place] [address] 19473- 5527 Sep, [facility] [id number] [place] [address] 36654- 4187 Aug, Acute seasonal allergic rhinitis, unspecified trigger J30.2 ; Hiatal hernia K44.9 and Chronic pain syndrome G89.4 [facility] [id number] [place] [address] 16496- 4693 Aug, [facility] [id number] [place] [address] 34766- 3459 Aug, [facility] [id number] [place] [address] 42132- 5541 Aug, Chronic obstructive pulmonary disease, unspecified COPD type J44.9 [facility] [id number] [place] [address] 25480- 7079 Aug, Anxiety F41.9 [facility] [id number] [place] [address] 53969- 7155 Aug, Chronic pain syndrome G89.4 [facility] [address] [place] [address] 94514- 0792 Aug, Hiatal hernia K44.9 and Actinic keratosis L57.0 [facility] [id number] [place] [address] 56968- 5869 Aug, [facility] [id number] [place] [address] 31611- 3111 Aug, Anxiety F41.9 [facility] [id number] [place] [address] 51755- 9888 July, [facility] [id number] [place] [address] 13194- 8404 July, Hiatal hernia K44.9 [facility] [address] 41564- 3516 July, [facility] [address] 48096- 6124 July, Anxiety F41.9 and Chronic pain syndrome G89.4 [facility] [address] 05674- 0301 July, [facility] [id number] [place] [address] 90027- 1700 Jun, Chronic pain syndrome G89.4 [facility] [id number] [place] [address] 52978- 9929 Jun, Chronic pain syndrome G89.4 [facility] [address] 71134- 9698 Jun, [facility] [address] 09838- 1959 Jun, Anxiety F41.9 [facility] [address] 29380- 2783 Jun, Allergic rhinitis, unspecified allergic rhinitis trigger, unspecified rhinitis seasonality J30.9 [facility] [id number] [place] [address] 29554- 6561 Jun, [facility] [id number] [place] [address] 83329- 5579 May, Chronic pain syndrome G89.4 [facility] [id number] [place] [address] 08368- 1374 May, [facility] [address] 24542- 8385 May, [facility] [id number] [place] [address] 56883- 1474 May, Anxiety F41.9 [facility] [id number] [place] [address] 24806- 7217 May, Type 2 diabetes mellitus with diabetic [...] and Chronic pain syndrome G89.4 [facility] [id number] [place] [address] 71998- 3738 May, Essential hypertension I10 ; Type 2 diabetes mellitus with diabetic neuropathy, without long-term current use of insulin E11.40 ; Mixed hyperlipidemia E78.2 ; Chronic obstructive pulmonary disease, unspecified COPD type J44.9 and Chronic GERD K21.9 [place] [id number] [place] [address] 47453- 6098 May, [place] [id number] [place] [address] 52672- 3353 May, [place] [id number] [place] [address] 82533- 1285 May, Type 2 diabetes mellitus with diabetic neuropathy, without long-term current use of insulin E11.40 [place] [id number] [place] [address] 90219- 3025 May, Dementia without behavioral disturbance, unspecified dementia type F03.90 [place] [id number] [place] [address] 59722- 9770 May, Type 2 diabetes mellitus with diabetic neuropathy, without long-term current use of insulin E11.40 ; Essential hypertension I10 ; Mixed hyperlipidemia E78.2 ; Chronic obstructive pulmonary disease, unspecified COPD type J44.9 ; Chronic GERD K21.9 and Osteoarthritis of both knees, unspecified osteoarthritis type M17.0 [facility] [id number] [place] [address] 59179- 6097 May, [facility] [id number] [place] [address] 40506- 3196 May, [facility] [id number] [place] [address] 76489- 5807 May, Anxiety F41.9 and Unspecified symptoms and signs involving cognitive functions and awareness R41.9 [facility] [id number] [place] [address] 40779- 6749 May, [facility] [id number] [place] [address] 35216- 0666 May, Type 2 diabetes mellitus with diabetic neuropathy, without long-term current use of insulin E11.40 ; Anxiety F41.9 and Chronic obstructive pulmonary disease, unspecified COPD type J44.9 [facility] [id number] [place] [address] 68986- 8688 May, [facility] [id number] [place] [address] 60199- 3085 May, [facility] [id number] [place] [address] 33337- 6239 May, [facility] [id number] [place] [address] 16879- 7707 May, Chronic obstructive pulmonary disease, unspecified COPD type J44.9 [facility] [id number] [place] [address] 64214- 8717 Mar, [facility] [id number] [place] [address] 40242- 6953 Mar, Arthritis of both knees M19.90 [facility] [id number] [place] [address] 00199- 4793 Mar, Type 2 diabetes mellitus with diabetic neuropathy, without long-term current use of insulin E11.40 [facility] [id number] [place] [address] 42631- 5513 Mar, [facility] [id number] [place] [address] 91469- 8429 Mar, Neck pain M54.2 and Weakness generalized R53.1 [facility] [id number] [place] [address] 09233- 2667 Mar, [facility] [address] 62316- 0565 Mar, Cervicalgia M54.2 and Impacted cerumen of both ears H61.23 [facility] [address] 55624- 5273 Mar, [facility] [address] 95446- 6633 Mar, Type 2 diabetes mellitus with diabetic neuropathy, without long-term current use of insulin E11.40 [facility] [id number] [place] [address] 19899- 6003 Feb, [facility] [id number] [place] [address] 64142- 1451 Feb, Hypoxia R09.02 [facility] [id number] [place] [address] 29930- 4845 Feb, [facility] [id number] [place] [address] 54113- 6086 Feb, [facility] [id number] [place] [address] 64947- 3956 Feb, [facility] [id number] [place] [address] 13285- 4716 Feb, Type 2 diabetes mellitus with diabetic neuropathy, without long-term current use of insulin E11.40 [facility] [id number] [place] [address] 17402- 8323 Feb, Osteoarthritis of both knees, unspecified osteoarthritis type M17.0 [facility] [address] 03622- 9024 Feb, [facility] [id number] [place] [address] 51860- 7898 Feb, [facility] [id number] [place] [address] 65109- 1536 Feb, [facility] [id number] [place] [address] 45419- 2330 Jan, [facility] [id number] [place] [address] 53047- 2748 Jan, [facility] [id number] [place] [address] 16986- 2797 Jan, [facility] [id number] [place] [address] 74559- 1531 Jan, [facility] [id number] [place] [address] 14115- 8041 Jan, Tinea pedis of both feet B35.3 [facility] [id number] [place] [address] 37357- 4658 Jan, Type 2 diabetes mellitus with diabetic [...] seasonality J30.9 and Encounter for immunization Z23 [facility] [id number] [place] [address] 15048- 5427 Jan, [facility] [id number] [place] [address] 67823- 9531 Jan, [facility] [id number] [place] [address] 51378- 6113 Dec, [facility] [id number] [address] Dec, [facility] [id number] [place] [address] 27913 -3033 Dec, Unspecified asthma with (acute) exacerbation J45.901 and Chronic obstructive pulmonary disease with (acute) exacerbation J44.1 [facility] [id number] [place] [address] 72721- 8861 Dec, Arthritis of both knees M19.90 and Acute medial meniscus tear, right, initial encounter S83.241A [facility] [id number] [place] [address] 61739- 6844 Dec, [facility] [id number] [place] [address] 60212- 7132 Dec, [facility] [id number] [place] [address] 97270- 3917 Dec, [facility] [id number] [place] [address] 14198- 0904 Dec, [facility] [id number] [place] [address] 62868- 2070 Dec, History of pneumonia Z87.01 [facility] [id number] [place] [address] 71658- 3889 Dec, [facility] [id number] [place] [address] 39964- 2796 Dec, [facility] [id number] [place] [address] 58979- 2713 Dec, [facility] [id number] [place] [address] 28746- 4450 Dec, [facility] [id number] [place] [address] 33500- 4949 Dec, [facility] [id number] [place] [address] 66131- 2085 Dec, [facility] [id number] [address] 30 Nov, 2015 Cough R05 and Pneumonia due to infectious organism, unspecified laterality, unspecified part of lung J18.9 [facility] [id number] [address] 0670 28 Nov, 2015 [facility] [id number] [place] [address] 11147- 8524 22 Nov, 2015 Type 2 diabetes mellitus [...] allergic rhinitis trigger, unspecified rhinitis seasonality J30.9 [facility] [id number] [address] 12 Nov, 2015 IMMUNIZATIONS No Known Immunizations SOCIAL HISTORY Never Assessed REASON FOR VISIT Requests return call PLAN OF CARE VITAL SIGNS MEDICATIONS Unknown Medications RESULTS No Results PROCEDURES No Known procedures INSTRUCTIONS MEDICATIONS ADMINISTERED No Known Medications MEDICAL (GENERAL) HISTORY Type Description Date Medical History hypertension Medical History chronic obstructive pulmonary disease (COPD)-[facility], uses [place] for home O2 Medical History Arthritis-knees and [...] TIA, [facility] 2014 Hospitalization History COPD exacerbation--[facility] 12/27/2015 [facility] - [facility] 02/2016 [facility] History [facility] pneumonia 11/2016 Hospitalization History COPD exacerbation - Dr Hartley Attending 12/2016 Hospitalization History Cough- [facility] [place] 04/10/2017 Hospitalization History [facility] - Possible Pneumonia 06/2017 Hospitalization History COPD hiatal hernia 08/2017
--- OUTSIDE RECORDS SUMMARY | 2018-01-05 16:22 | XMS REPORT ---
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 Active 285376049 Problem Mixed hyperlipidemia E78.2 Active 964714557 Problem Type 2 diabetes mellitus with diabetic neuropathy, without long-term current use of insulin E11.40 Active 84797073 Problem Chronic obstructive pulmonary disease, unspecified COPD type J44.9 Active 66712871 Problem Hypoxia R09.02 Active 776176686 Problem Osteoarthritis of both knees, unspecified osteoarthritis type M17.0 Active 759527031 Problem Allergic rhinitis, unspecified allergic rhinitis trigger, unspecified rhinitis seasonality J30.9 Active 69338837 Problem Chronic pain syndrome G89.4 Active 186010230 ALLERGIES No Information ENCOUNTERS Encounter Location Date Diagnosis [facility] [address], [place] [address] Dec, [facility] [id number] [place] [address] 43859- 5965 Dec, [facility] [address] 89282- 2512 Dec, [facility] [address] 17238- 1449 Nov, [facility] [address] 55180- 4977 Nov, Encounter for immunization Z23 [facility] [address] 71016- 0946 Nov, [facility] [address] 78444- 3109 Nov, Dermatitis associated with moisture L30.8 ; Pressure injury of buttock, stage 1, unspecified laterality L89.301 and Seasonal allergies J30.2 [facility] [address] 60673- 3819 Nov, [facility] [address] 28876- 5698 Nov, [facility] [address] 01338- 7328 17 Nov, 2017 Alzheimers disease with early onset G30.0 [facility] [address] 37744- 7673 14 Nov, 2017 [facility] [address] 68529- 0208 12 Nov, 2017 Unspecified urinary incontinence R32 and Unspecified contact dermatitis due to other agents L25.8 [facility] [address] 22678- 6669 11 Nov, 2017 Chronic pain syndrome G89.4 [facility] [address] 98186- 7060 10 Nov, 2017 Type 2 diabetes mellitus with diabetic neuropathy, without long-term current use of insulin E11.40 [facility] [id number] [place] [address] 18103- 0689 Nov, [facility] [address] 12738- 7553 Nov, Chronic obstructive pulmonary disease, unspecified COPD type J44.9 and Gastroesophageal reflux disease without esophagitis K21.9 [facility] [address] 69576- 5273 Oct, [facility] [id number] [place] [address] 70859- 5999 Oct, [facility] [address] 17974- 6228 Oct, Chronic pain syndrome G89.4 [facility] [id number] [place] [address] 14224- 9017 Oct, Community acquired bacterial pneumonia J15.9 ; Allergic rhinitis, unspecified allergic rhinitis trigger, unspecified rhinitis seasonality J30.9 ; Type 2 diabetes mellitus with diabetic neuropathy, without long-term current use of insulin E11.40 ; Chronic GERD K21.9 and Chronic obstructive pulmonary disease, unspecified COPD type J44.9 [facility] [id number] [place] [address] 71951- 9357 Oct, [facility] [id number] [place] [address] 62676- 3408 Oct, [facility] [id number] [place] [address] 68070- 3497 Oct, [facility] [id number] [place] [address] 77072- 0092 Oct, [facility] [id number] [place] [address] 02051- 9961 Oct, Essential hypertension I10 [facility] [id number] [place] [address] 29229- 7765 Oct, Type 2 diabetes mellitus with diabetic neuropathy, without long-term current use of insulin E11.40 ; Chronic obstructive pulmonary disease , unspecified COPD type J44.9 ; Mixed hyperlipidemia E78.2 ; Osteoarthritis of both knees, unspecified osteoarthritis type M17.0 ; 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 and Essential hypertension I10 [facility] [id number] [place] [address] 30265- 2422 Oct, [facility] [address] 73175- 6618 Oct, [facility] [address] 38133- 0647 Oct, Yeast dermatitis B37.2 [facility] [address] 84532- 7783 Oct, Chronic pain syndrome G89.4 [facility] [id number] [place] [address] 20067- 1269 Sep, [facility] [address] 65734- 3023 Sep, [facility] [id number] [place] [address] 61028- 7451 Sep, Alzheimers disease with early onset G30.0 and Chronic pain syndrome G89.4 [facility] [id number] [place] [address] 46407- 5203 Sep, COPD with acute exacerbation J44.1 [facility] [id number] [place] [address] 64430- 0252 Sep, [facility] [id number] [place] [address] 30329- 1969 Sep, [facility] [address] 11655- 9493 Sep, Gastroesophageal reflux disease without esophagitis K21.9 [facility] [id number] [place] [address] 55914- 7187 Aug, [facility] [address] [place] [address] 1855 Aug, [facility] [id number] [place] [address] 98600- 8885 Aug, 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 ; Hospital discharge follow-up Z09 ; Chronic obstructive pulmonary disease, unspecified COPD type J44.9 and Chronic GERD K21.9 [facility] [address] 06690- 7391 Aug, Chronic pain syndrome G89.4 [facility] [id number] [place] [address] 13177- 4689 Aug, [facility] [id number] [place] [address] 75593- 6137 Aug, [facility] [id number] [place] [address] 99276- 4314 Aug, Chronic pain syndrome G89.4 and Alzheimers disease with early onset G30.0 [facility] [id number] [place] [address] 49670- 3129 18 Aug, 2017 Type 2 diabetes mellitus with diabetic neuropathy, without long-term current use of insulin E11.40 ; Chronic obstructive pulmonary disease , unspecified COPD type J44.9 ; Chronic GERD K21.9 and 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 [facility] [id number] [place] [address] 39280- 3389 Aug, [facility] [id number] [place] [address] 76286- 9492 Aug, Essential hypertension I10 and Cough R05 [facility] [id number] [place] [address] 04621- 3682 Aug, [facility] [id number] [place] [address] 97248- 2643 12 Aug, 2017 [facility] [id number] [place] [address] 03515- 4558 07 Aug, 2017 [facility] [address], [place] [address]- 0038 Aug, Chronic pain syndrome G89.4 [facility] [id number] [address] 5922 Aug, [facility] [address], [place] [address]- 0236 Aug, [facility] [id number] [place] [address] 61316- 2961 July, Gastroesophageal reflux disease without esophagitis K21.9 [facility] [id number] [place] [address] 59530- 2943 July, [facility] [id number] [place] [address] 97860- 1625 July, [facility] [id number] [place] [address] 67568- 9993 July, [facility] [id number] [place] [address] 67414- 2476 July, Essential hypertension I10 and Chronic pain syndrome G89.4 [facility] [id number] [place] [address] 06504- 5757 July, Gastroesophageal reflux disease without esophagitis K21.9 [facility] [address], [place] [address]- 0641 July, Alzheimers disease with early onset G30.0 [facility] [id number] [address] 2499 July, Chronic obstructive pulmonary disease, unspecified COPD type J44.9 ; Nocturnal cough R05 ; 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 and Recurrent major depressive disorder, in partial 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 [facility] [address], [place] [address]- 1224 July, [facility] [id number] [place] [address] 22385- 3613 July, Type 2 diabetes mellitus with diabetic neuropathy, without long-term current use of insulin E11.40 [facility] [id number] [place] [address] 14334- 1068 July, Nocturnal hypoxemia G47.34 ; Chronic obstructive pulmonary disease, unspecified COPD type J44.9 and Nocturnal cough R05 [facility] [id number] [place] [address] 70738- 0327 July, [facility] [address] 54471- 4358 July, [facility] [address] 33059- 2291 July, [facility] [address] 28355- 0946 Jun, Chronic pain syndrome G89.4 [facility] [address] 92506- 1726 Jun, [facility] [address] 25911- 0661 Jun, [facility] [address] 63191- 3933 Jun, Alzheimers disease with early onset G30.0 [facility] [id number] [place] [address] 87636- 7596 Jun, [facility] [id number] [place] [address] 25962- 2660 Jun, Gastroesophageal reflux disease without esophagitis K21.9 [facility] [id number] [place] [address] 02720- 7694 Jun, Allergic rhinitis, unspecified allergic rhinitis trigger, unspecified rhinitis seasonality J30.9 [facility] [id number] [place] [address] 07363- 3737 Jun, Chronic pain syndrome G89.4 [facility] [address] 87479- 6948 May, [facility] [address] 43433- 5221 May, COPD with acute exacerbation J44.1 [facility] [id number]- [address]48 14 May, 2017 Type 2 diabetes mellitus with diabetic neuropathy, without long-term current use of insulin E11.40 ; COPD with acute exacerbation J44.1 ; Hypoxia R09.02 ; Chronic pain syndrome G89.4 ; Yeast dermatitis B37.2 ; Alzheimers disease with early onset G30.0 and 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 [facility] [address] 76422- 5055 May, [facility] [address] 48876- 8731 May, Chronic pain syndrome G89.4 [facility] [address] 13489- 6734 May, [facility] [address] 41770- 1251 May, [facility] [address] 37423- 8712 May, Mixed hyperlipidemia E78.2 [facility] [address] 31529- 2663 May, Chronic pain syndrome G89.4 [facility] [address] 38243- 5214 May, Anxiety F41.9 and Chronic pain syndrome G89.4 [facility] [address] 55295- 6029 Mar, [facility] [address] 94287- 0331 Mar, [facility] [address]- 2546 Mar, [facility] [address] [place] [address] 04375- 4311 Mar, [facility] [address] [place] [address] 43890- 0625 Mar, [facility] [id number] [place] [address] 02226- 1570 Mar, Anxiety F41.9 and Chronic pain syndrome G89.4 [facility] [address] [place] [address] 25925- 2505 Mar, Medicare annual wellness visit, initial Z00.00 [...] Hiatal hernia K44.9 and Actinic keratosis L57.0 [facility] [address], [place] [address]- 8572 Mar, [facility] [address] [place] [address] 15191- 9913 Mar, Chronic pain syndrome G89.4 [facility] [address], [place] [address]- 9501 Feb, [facility] [id number] [place] [address] 06716- 1147 Feb, Chronic pain syndrome G89.4 [facility] [address] [place] [address] 23834- 0807 Feb, [facility] [id number] [place] [address] 83516- 5861 Feb, [facility] [id number] [place] [address] 01056- 3262 Feb, Anxiety F41.9 [facility] [address] 02101- 9838 Feb, [facility] [address] 35509- 7471 Feb, Chronic pain syndrome G89.4 [facility] [address] 50666- 3620 Jan, Essential hypertension I10 [facility] [address] 56304- 0892 Jan, Chronic pain syndrome G89.4 [facility] [address] 52409- 1701 Jan, [facility] [address] 38078- 0786 Jan, Anxiety F41.9 [facility] [address] 19027- 9674 Jan, Encounter for immunization Z23 and Community acquired pneumonia, unspecified laterality J18.9 [facility] [address] 98695- 0026 Jan, Type 2 diabetes mellitus with diabetic neuropathy, without long-term current use of insulin E11.40 [facility] [id number] [place] [address] 60910- 0616 Dec, Anxiety F41.9 and Chronic pain syndrome G89.4 [facility] [address] 32977- 8630 Dec, Chronic pain syndrome G89.4 and Essential hypertension I10 [facility] [address] 34249- 4309 Dec, [facility] [address] 56438- 2917 Dec, Anxiety F41.9 [facility] [id number] [place] [address] 79775 2546 Dec, [facility] [id number] [place] [address] 02360 2546 Dec, Type 2 diabetes mellitus with diabetic neuropathy, without long-term current use of insulin E11.40 ; Lactic acidosis E87.2 ; Chronic obstructive pulmonary disease, unspecified COPD type J44.9 and Encounter for immunization Z23 [facility] [id number] [place] [address] 51323- 3706 Dec, Chronic pain syndrome G89.4 [facility] [id number] [place] [address] 57616 2546 Nov, [facility] [id number] [place] [address] 66262 2542 Nov, Chronic pain syndrome G89.4 [facility] [address] [place] [address] 68606 2546 Nov, [facility] [id number] [place] [address] 30138 2546 Nov, [facility] [id number] [place] [address] 33228 2541 15 Nov, 2016 Anxiety F41.9 [facility] [id number] [place] [address] 23871 2546 11 Nov, 2016 Anxiety F41.9 [facility] [address] [place] [address] 48817 2546 08 Nov, 2016 [facility] [id number] [place] [address] 23362 2546 05 Nov, 2016 [facility] [id number] [place] [address] 96488 2546 Nov, [facility] [id number] [place] [address] 04866- 6915 Oct, [facility] [address], [place] [address]- 9382 Oct, [facility] [id number] [place] [address] 83142- 1838 Oct, [facility] [id number] [place] [address] 54931- 6412 Oct, Essential hypertension I10 and Chronic pain syndrome G89.4 [facility] [id number] [place] [address] 47395- 4729 Oct, Anxiety F41.9 [facility] [id number] [place] [address] 57383- 1079 Oct, [facility] [id number] [place] [address] 47168- 2783 Oct, Chronic pain syndrome G89.4 [facility] [id number] [place] [address] 63995 -0909 Oct, Sore throat J02.9 and Acute nasopharyngitis (common cold) J00 [facility] [id number] [place] [address] 90478- 3853 Sep, [facility] [id number] [place] [address] 90872- 3610 Sep, COPD exacerbation J44.1 [facility] [id number] [place] [address] 98722- 3587 Sep, Chronic pain syndrome G89.4 [facility] [address], [place] [address]- 3098 Sep, Essential hypertension I10 [facility] [id number] [place] [address] 82314- 4663 Sep, [facility] [id number] [place] [address] 72405- 7648 Sep, [facility] [id number] [place] [address] 65580- 5933 Sep, Anxiety F41.9 [facility] [id number] [place] [address] 31614- 0465 05 Sep, 2016 Chronic pain syndrome G89.4 [facility] [id number] [place] [address] 60515- 6221 Sep, [facility] [id number] [place] [address] 28379- 1618 Aug, Acute seasonal allergic rhinitis, unspecified trigger J30.2 ; Hiatal hernia K44.9 and Chronic pain syndrome G89.4 [facility] [id number] [place] [address] 92742- 4162 Aug, [facility] [id number] [place] [address] 78672- 9772 Aug, [facility] [id number] [place] [address] 88278- 8700 Aug, Chronic obstructive pulmonary disease, unspecified COPD type J44.9 [facility] [id number] [place] [address] 65007- 7769 Aug, Anxiety F41.9 [facility] [id number] [place] [address] 45623- 4095 Aug, Chronic pain syndrome G89.4 [facility] [address] [place] [address] 57367- 9731 Aug, Hiatal hernia K44.9 and Actinic keratosis L57.0 [facility] [address] [place] [address] 51043- 1165 Aug, [facility] [id number] [place] [address] 26786- 8054 Aug, Anxiety F41.9 [facility] [address] [place] [address] 36395- 1058 July, [facility] [id number] [place] [address] 39021- 9759 July, Hiatal hernia K44.9 [facility] [address] 50844- 0161 July, [facility] [address] 38349- 7847 July, Anxiety F41.9 and Chronic pain syndrome G89.4 [facility] [address] 94406- 1969 July, [facility] [id number] [place] [address] 47425- 0913 Jun, Chronic pain syndrome G89.4 [facility] [id number] [place] [address] 63891- 1052 Jun, Chronic pain syndrome G89.4 [facility] [address] 94169- 7013 Jun, [facility] [address] 55943- 0861 Jun, Anxiety F41.9 [facility] [address] 64501- 7420 Jun, Allergic rhinitis, unspecified allergic rhinitis trigger, unspecified rhinitis seasonality J30.9 [facility] [id number] [place] [address] 31947- 0047 Jun, [facility] [id number] [place] [address] 77540- 2607 May, Chronic pain syndrome G89.4 [facility] [id number] [place] [address] 57112- 1997 May, [facility] [address] 78780- 3229 May, [facility] [id number] [place] [address] 88215- 9978 May, Anxiety F41.9 [facility] [address] [place] [address] 22629- 4368 May, Type 2 diabetes mellitus with diabetic [...] Anxiety F41.9 and Chronic pain syndrome G89.4 [facility] [id number] [place] [address] 48410- 3241 May, Essential hypertension I10 ; Type 2 diabetes mellitus with diabetic neuropathy, without long-term current use of insulin E11.40 ; Mixed hyperlipidemia E78.2 ; Chronic obstructive pulmonary disease, unspecified COPD type J44.9 and Chronic GERD K21.9 [place] [id number] [place] [address] 11375- 9408 May, [place] [id number] [place] [address] [phone]- [phone] May, [place] [id number] [place] [address] [phone]- 5678 May, Type 2 diabetes mellitus with diabetic neuropathy, without long-term current use of insulin E11.40 [place] [id number] [place] [address] [phone]- 2957 May, Dementia without behavioral disturbance, unspecified dementia type F03.90 [place] [address] [address] [id number] [place] [address] 76516- 0912 May, Type 2 diabetes mellitus with diabetic neuropathy, without long-term current use of insulin E11.40 ; Essential hypertension I10 ; Mixed hyperlipidemia E78.2 ; Chronic obstructive pulmonary disease, unspecified COPD type J44.9 ; Chronic GERD K21.9 and Osteoarthritis of both knees, unspecified osteoarthritis type M17.0 [facility] [id number] [place] [address] 15458- 5068 May, [facility] [id number] [place] [address] 98438- 6264 May, [facility] [id number] [place] [address] 43937- 1567 May, Anxiety F41.9 and Unspecified symptoms and signs involving cognitive functions and awareness R41.9 [facility] [id number] [place] [address] 73725- 4430 May, [facility] [id number] [place] [address] 48596- 9603 May, Type 2 diabetes mellitus with diabetic neuropathy, without long-term current use of insulin E11.40 ; Anxiety F41.9 and Chronic obstructive pulmonary disease, unspecified COPD type J44.9 [facility] [id number] [place] [address] 77125- 0752 May, [facility] [id number] [place] [address] 61645- 4475 May, [facility] [id number] [place] [address] 74214- 1718 May, [facility] [id number] [place] [address] 32089- 5190 May, Chronic obstructive pulmonary disease, unspecified COPD type J44.9 [facility] [id number] [place] [address] 76898- 9806 Mar, [facility] [id number] [place] [address] 42587- 1546 Mar, Arthritis of both knees M19.90 [facility] [id number] [place] [address] 76542- 0062 Mar, Type 2 diabetes mellitus with diabetic neuropathy, without long-term current use of insulin E11.40 [facility] [id number] [place] [address] 64528- 7543 Mar, [facility] [id number] [place] [address] 93828- 1287 Mar, Neck pain M54.2 and Weakness generalized R53.1 [facility] [id number] [place] [address] 98394- 8292 Mar, [facility] [address] 74340- 8865 Mar, Cervicalgia M54.2 and Impacted cerumen of both ears H61.23 [facility] [address] 64356- 1253 Mar, [facility] [address] 88140- 3862 Mar, Type 2 diabetes mellitus with diabetic neuropathy, without long-term current use of insulin E11.40 [facility] [id number] [place] [address] 79056- 6298 Feb, [facility] [id number] [place] [address] 91847- 6125 Feb, Hypoxia R09.02 [facility] [id number] [place] [address] 77841- 1796 Feb, [facility] [id number] [place] [address] 04976- 5845 Feb, [facility] [id number] [place] [address] 57883- 9290 Feb, [facility] [id number] [place] [address] 10030- 4704 Feb, Type 2 diabetes mellitus with diabetic neuropathy, without long-term current use of insulin E11.40 [facility] [id number] [place] [address] 70084- 3740 Feb, Osteoarthritis of both knees, unspecified osteoarthritis type M17.0 [facility] [address] 67344- 9569 Feb, [facility] [id number] [place] [address] 03168- 1605 Feb, [facility] [id number] [place] [address] 39219- 0708 Feb, [facility] [id number] [place] [address] 93393- 3631 Jan, [facility] [id number] [place] [address] 67927- 8364 Jan, [facility] [id number] [place] [address] 60647- 7733 Jan, [facility] [id number] [place] [address] 89936- 8916 Jan, [facility] [id number] [place] [address] 44741- 9247 Jan, Tinea pedis of both feet B35.3 [facility] [id number] [place] [address] 02130- 1273 Jan, Type 2 diabetes mellitus with diabetic [...] seasonality J30.9 and Encounter for immunization Z23 [facility] [id number] [place] [address] 81959- 8765 Jan, [facility] [id number] [place] [address] 96835- 0690 Jan, [facility] [id number] [place] [address] 85765- 5468 Dec, [facility] [address] [address]- 0936 Dec, [facility] [id number] [place] [address] 62735 -9028 Dec, Unspecified asthma with (acute) exacerbation J45.901 and Chronic obstructive pulmonary disease with (acute) exacerbation J44.1 [facility] [id number] [place] [address] 62304- 6764 Dec, Arthritis of both knees M19.90 and Acute medial meniscus tear, right, initial encounter S83.241A [facility] [id number] [place] [address] 80968- 5423 Dec, [facility] [id number] [place] [address] 29628- 8660 Dec, [facility] [id number] [place] [address] 23388- 0178 Dec, [facility] [id number] [place] [address] 72150- 5565 Dec, [facility] [id number] [place] [address] 74747- 8620 Dec, History of pneumonia Z87.01 [facility] [id number] [place] [address] 72556- 1574 Dec, [facility] [id number] [place] [address] 89064- 6726 Dec, [facility] [id number] [place] [address] 78926- 4902 Dec, [facility] [id number] [place] [address] 75230- 9030 Dec, [facility] [id number] [place] [address] 55119- 1648 Dec, [facility] [id number] [place] [address] 79013- 5095 Dec, [facility] [id number] [address]- 8952 30 Nov, 2015 Cough R05 and Pneumonia due to infectious organism, unspecified laterality, unspecified part of lung J18.9 [facility] [id number] [address]- 7277 28 Nov, 2015 [facility] [id number] [place] [address] 07009- 5675 22 Nov, 2015 Type 2 diabetes mellitus [...] allergic rhinitis trigger, unspecified rhinitis seasonality J30.9 [facility] [id number], [place] [address]- 7323 12 Nov, 2015 IMMUNIZATIONS No Known Immunizations SOCIAL HISTORY Never Assessed REASON FOR VISIT pharmacy change PLAN OF CARE VITAL SIGNS MEDICATIONS Unknown Medications RESULTS No Results PROCEDURES No Known procedures INSTRUCTIONS MEDICATIONS ADMINISTERED No Known Medications MEDICAL (GENERAL) HISTORY Type Description Date Medical History hypertension Medical History chronic obstructive pulmonary disease (COPD)-wears 2L O2 per [place], uses [place] for home O2 Medical History Arthritis-knees and [...] Attending 12/2016 Hospitalization History Cough- [facility] [place] 04/10/2017 Hospitalization [facility] - Possible Pneumonia 06/2017 Hospitalization History COPD hiatal hernia 08/2017
--- OUTSIDE RECORDS SUMMARY | 2018-01-05 16:23 | XMS REPORT ---
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 Active 625847889 Problem Mixed hyperlipidemia E78.2 Active 331243861 Problem Type 2 diabetes mellitus with diabetic neuropathy, without long-term current use of insulin E11.40 Active 15067270 Problem Chronic obstructive pulmonary disease, unspecified COPD type J44.9 Active 41128331 Problem Hypoxia R09.02 Active 033105029 Problem Osteoarthritis of both knees, unspecified osteoarthritis type M17.0 Active 756677655 Problem Allergic rhinitis, unspecified allergic rhinitis trigger, unspecified rhinitis seasonality J30.9 Active 53239336 Problem Chronic pain syndrome G89.4 Active 912688429 ALLERGIES No Information ENCOUNTERS Encounter Location Date Diagnosis [facility] [address] [place] [address] Dec, [facility] [id number] [place] [address] 18301- 9071 Dec, [facility] [address] 60646- 6147 Dec, [facility] [address] 42196- 7029 Nov, [facility] [address] 75060- 5042 Nov, Encounter for immunization Z23 [facility] [address] 09788- 8274 Nov, [facility] [address] 72527- 9164 Nov, Dermatitis associated with moisture L30.8 ; Pressure injury of buttock, stage 1, unspecified laterality L89.301 and Seasonal allergies J30.2 [facility] [address] 56850- 3933 Nov, [facility] [address] 80621- 0095 Nov, [facility] [address] 98140- 9970 17 Nov, 2017 Alzheimers disease with early onset G30.0 [facility] [address] 17659- 0680 14 Nov, 2017 [facility] [address] 62023- 3243 12 Nov, 2017 Unspecified urinary incontinence R32 and Unspecified contact dermatitis due to other agents L25.8 [facility] [address] 71598- 8495 11 Nov, 2017 Chronic pain syndrome G89.4 [facility] [address] 74884- 6842 10 Nov, 2017 Type 2 diabetes mellitus with diabetic neuropathy, without long-term current use of insulin E11.40 [facility] [id number] [place] [address] 05351- 2124 Nov, [facility] [address] 10798- 5857 Nov, Chronic obstructive pulmonary disease, unspecified COPD type J44.9 and Gastroesophageal reflux disease without esophagitis K21.9 [facility] [address] 85737- 8022 Oct, [facility] [id number] [place] [address] 79022- 8504 Oct, [facility] [address] 23622- 3139 Oct, Chronic pain syndrome G89.4 [facility] [id number] [place] [address] 30927- 4294 Oct, Community acquired bacterial pneumonia J15.9 ; Allergic rhinitis, unspecified allergic rhinitis trigger, unspecified rhinitis seasonality J30.9 ; Type 2 diabetes mellitus with diabetic neuropathy, without long-term current use of insulin E11.40 ; Chronic GERD K21.9 and Chronic obstructive pulmonary disease, unspecified COPD type J44.9 [facility] [id number] [place] [address] 20686- 4503 Oct, [facility] [id number] [place] [address] 04765- 0875 Oct, [facility] [id number] [place] [address] 01131- 4982 Oct, [facility] [id number] [place] [address] 55678- 9021 Oct, [facility] [id number] [place] [address] 37369- 9290 Oct, Essential hypertension I10 [facility] [id number] [place] [address] 81196- 2557 Oct, Type 2 diabetes mellitus with diabetic neuropathy, without long-term current use of insulin E11.40 ; Chronic obstructive pulmonary disease , unspecified COPD type J44.9 ; Mixed hyperlipidemia E78.2 ; Osteoarthritis of both knees, unspecified osteoarthritis type M17.0 ; 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 and Essential hypertension I10 [facility] [id number] [place] [address] 61966- 4828 Oct, [facility] [address] 54021- 6912 Oct, [facility] [address] 22669- 7673 Oct, Yeast dermatitis B37.2 [facility] [address] 27493- 8984 Oct, Chronic pain syndrome G89.4 [facility] [id number] [place] [address] 01758- 2050 Sep, [facility] [address] 46493- 3249 Sep, [facility] [id number] [place] [address] 91113- 6875 Sep, Alzheimers disease with early onset G30.0 and Chronic pain syndrome G89.4 [facility] [id number] [place] [address] 92702- 6279 Sep, COPD with acute exacerbation J44.1 [facility] [id number] [place] [address] 84638- 6674 Sep, [facility] [id number] [place] [address] 53017- 5868 Sep, [facility] [address] 66051- 4971 Sep, Gastroesophageal reflux disease without esophagitis K21.9 [facility] [id number] [place] [address] 16747- 7022 Aug, [facility] [address] [place] [address] 4298 Aug, [facility] [id number] [place] [address] 81359- 1235 Aug, 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 ; Hospital discharge follow-up Z09 ; Chronic obstructive pulmonary disease, unspecified COPD type J44.9 and Chronic GERD K21.9 [facility] [address] 53549- 9637 Aug, Chronic pain syndrome G89.4 [facility] [id number] [place] [address] 13383- 9534 Aug, [facility] [id number] [place] [address] 30556- 5673 Aug, [facility] [id number] [place] [address] 94763- 7249 Aug, Chronic pain syndrome G89.4 and Alzheimers disease with early onset G30.0 [facility] [id number] [place] [address] 54356- 6352 18 Aug, 2017 Type 2 diabetes mellitus with diabetic neuropathy, without long-term current use of insulin E11.40 ; Chronic obstructive pulmonary disease , unspecified COPD type J44.9 ; Chronic GERD K21.9 and 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 [facility] [id number] [place] [address] 72768- 2638 Aug, [facility] [id number] [place] [address] 78705- 4719 Aug, Essential hypertension I10 and Cough R05 [facility] [id number] [place] [address] 99812- 3823 Aug, [facility] [id number] [place] [address] 22289- 7077 12 Aug, 2017 [facility] [id number] [place] [address] 86351- 6176 07 Aug, 2017 [facility] [address], [place] [address]- 8362 Aug, Chronic pain syndrome G89.4 [facility] [id number] [address]- 2373 Aug, [facility] [address], [place] [address]- 7239 Aug, [facility] [id number] [place] [address] 39568- 0755 July, Gastroesophageal reflux disease without esophagitis K21.9 [facility] [id number] [place] [address] 10413- 0977 July, [facility] [id number] [place] [address] 37588- 1834 July, [facility] [id number] [place] [address] 62257- 5839 July, [facility] [id number] [place] [address] 50281- 3618 July, Essential hypertension I10 and Chronic pain syndrome G89.4 [facility] [id number] [place] [address] 61403- 5595 July, Gastroesophageal reflux disease without esophagitis K21.9 [facility] [address], [place] [address]- 2161 July, Alzheimers disease with early onset G30.0 [facility] [id number] [address]- 5135 July, Chronic obstructive pulmonary disease, unspecified COPD type J44.9 ; Nocturnal cough R05 ; 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 and Recurrent major depressive disorder, in partial 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 [facility] [address], [place] [address]- 8182 July, [facility] [id number] [place] [address] 19181- 5281 July, Type 2 diabetes mellitus with diabetic neuropathy, without long-term current use of insulin E11.40 [facility] [id number] [place] [address] 52844- 6472 July, Nocturnal hypoxemia G47.34 ; Chronic obstructive pulmonary disease, unspecified COPD type J44.9 and Nocturnal cough R05 [facility] [id number] [place] [address] 75965- 8628 July, [facility] [address] 96620- 8806 July, [facility] [address] 62747- 0911 July, [facility] [address] 79970- 0596 Jun, Chronic pain syndrome G89.4 [facility] [address] 60081- 1985 Jun, [facility] [address] 52503- 0930 Jun, [facility] [address] 63179- 5451 Jun, Alzheimers disease with early onset G30.0 [facility] [id number] [place] [address] 15007- 7455 Jun, [facility] [id number] [place] [address] 44301- 7652 Jun, Gastroesophageal reflux disease without esophagitis K21.9 [facility] [id number] [place] [address] 58283- 7227 Jun, Allergic rhinitis, unspecified allergic rhinitis trigger, unspecified rhinitis seasonality J30.9 [facility] [id number] [place] [address] 71805- 4687 Jun, Chronic pain syndrome G89.4 [facility] [address] 47059- 8914 May, [facility] [address] 24782- 4556 May, COPD with acute exacerbation J44.1 [facility] [address] [id number]- 1879 14 May, 2017 Type 2 diabetes mellitus with diabetic neuropathy, without long-term current use of insulin E11.40 ; COPD with acute exacerbation J44.1 ; Hypoxia R09.02 ; Chronic pain syndrome G89.4 ; Yeast dermatitis B37.2 ; Alzheimers disease with early onset G30.0 and 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 [facility] [address] 82353- 4343 May, [facility] [address] 91353- 9778 May, Chronic pain syndrome G89.4 [facility] [address] 03445- 8790 May, [facility] [address] 85645- 1620 May, [facility] [address] 37734- 9963 May, Mixed hyperlipidemia E78.2 [facility] [address] 15929- 9213 May, Chronic pain syndrome G89.4 [facility] [address] 60552- 5555 May, Anxiety F41.9 and Chronic pain syndrome G89.4 [facility] [address] 74112- 2834 Mar, [facility] [address] 66751- 1343 Mar, [facility] [id number]- 2546 Mar, [facility] [id number] [place] [address] 29802- 2275 Mar, [facility] [id number] [place] [address] 89775- 1835 Mar, [facility] [id number] [place] [address] 35528- 0120 Mar, Anxiety F41.9 and Chronic pain syndrome G89.4 [facility] [id number] [place] [address] 66666- 9664 Mar, Medicare annual wellness visit, initial Z00.00 [...] Hiatal hernia K44.9 and Actinic keratosis L57.0 [facility] [address], [place] [address]- 8948 Mar, [facility] [id number] [place] [address] 54367- 2756 Mar, Chronic pain syndrome G89.4 [facility] [address], [place] [address]- 8562 Feb, [facility] [id number] [place] [address] 85978- 1217 Feb, Chronic pain syndrome G89.4 [facility] [id number] [place] [address] 71679- 0450 Feb, [facility] [id number] [place] [address] 51100- 7784 Feb, [facility] [id number] [place] [address] 16875- 6249 Feb, Anxiety F41.9 [facility] [address] 60332- 3666 Feb, [facility] [address] 90151- 0536 Feb, Chronic pain syndrome G89.4 [facility] [address] 37411- 3029 Jan, Essential hypertension I10 [facility] [address] 69680- 0392 Jan, Chronic pain syndrome G89.4 [facility] [address] 72655- 3292 Jan, [facility] [address] 48288- 2662 Jan, Anxiety F41.9 [facility] [address] 18325- 9435 Jan, Encounter for immunization Z23 and Community acquired pneumonia, unspecified laterality J18.9 [facility] [address] 46373- 1991 Jan, Type 2 diabetes mellitus with diabetic neuropathy, without long-term current use of insulin E11.40 [facility] [id number] [place] [address] 01513- 3779 Dec, Anxiety F41.9 and Chronic pain syndrome G89.4 [facility] [address] 35938- 5353 Dec, Chronic pain syndrome G89.4 and Essential hypertension I10 [facility] [address] 65406- 0312 Dec, [facility] [address] 03744- 0687 Dec, Anxiety F41.9 [facility] [id number] [place] [address] 77609 2546 Dec, [facility] [id number] [place] [address] 20619 2546 Dec, Type 2 diabetes mellitus with diabetic neuropathy, without long-term current use of insulin E11.40 ; Lactic acidosis E87.2 ; Chronic obstructive pulmonary disease, unspecified COPD type J44.9 and Encounter for immunization Z23 [facility] [id number] [place] [address] 52266- 9747 Dec, Chronic pain syndrome G89.4 [facility] [id number] [place] [address] 05001 2546 Nov, [facility] [id number] [place] [address] 61766 2548 Nov, Chronic pain syndrome G89.4 [facility] [id number] [place] [address] 59570 2546 Nov, [facility] [id number] [place] [address] 39918 2546 Nov, [facility] [id number] [place] [address] 72911 2545 15 Nov, 2016 Anxiety F41.9 [facility] [id number] [place] [address] 40072 2546 11 Nov, 2016 Anxiety F41.9 [facility] [id number] [place] [address] 37822 2546 08 Nov, 2016 [facility] [id number] [place] [address] 37077 2546 05 Nov, 2016 [facility] [id number] [place] [address] 09496 2546 Nov, [facility] [id number] [place] [address] 82968- 3461 Oct, [facility] [address], [place] [address]- 1799 Oct, [facility] [id number] [place] [address] 11595- 3330 Oct, [facility] [id number] [place] [address] 96172- 4918 Oct, Essential hypertension I10 and Chronic pain syndrome G89.4 [facility] [id number] [place] [address] 31569- 0004 Oct, Anxiety F41.9 [facility] [id number] [place] [address] 10325- 4112 Oct, [facility] [id number] [place] [address] 75199- 1493 Oct, Chronic pain syndrome G89.4 [facility] [id number] [place] [address] 17685 -1758 Oct, Sore throat J02.9 and Acute nasopharyngitis (common cold) J00 [facility] [id number] [place] [address] 31303- 4388 Sep, [facility] [id number] [place] [address] 12854- 1424 Sep, COPD exacerbation J44.1 [facility] [id number] [place] [address] 36311- 8219 Sep, Chronic pain syndrome G89.4 [facility] [address], [place] [address]- 8600 Sep, Essential hypertension I10 [facility] [id number] [place] [address] 35355- 1153 Sep, [facility] [id number] [place] [address] 98321- 5341 Sep, [facility] [id number] [place] [address] 79378- 6315 Sep, Anxiety F41.9 [facility] [id number] [place] [address] 47450- 6416 05 Sep, 2016 Chronic pain syndrome G89.4 [facility] [id number] [place] [address] 00927- 8821 Sep, [facility] [id number] [place] [address] 31697- 3040 Aug, Acute seasonal allergic rhinitis, unspecified trigger J30.2 ; Hiatal hernia K44.9 and Chronic pain syndrome G89.4 [facility] [id number] [place] [address] 50655- 3900 Aug, [facility] [id number] [place] [address] 78065- 5432 Aug, [facility] [id number] [place] [address] 24701- 9150 Aug, Chronic obstructive pulmonary disease, unspecified COPD type J44.9 [facility] [id number] [place] [address] 49345- 2389 Aug, Anxiety F41.9 [facility] [id number] [place] [address] 20996- 5858 Aug, Chronic pain syndrome G89.4 [facility] [id number] [place] [address] 36223- 1278 Aug, Hiatal hernia K44.9 and Actinic keratosis L57.0 [facility] [id number] [place] [address] 75491- 3786 Aug, [facility] [id number] [place] [address] 55695- 3678 Aug, Anxiety F41.9 [facility] [id number] [place] [address] 18914- 9868 July, [facility] [id number] [place] [address] 41474- 7940 July, Hiatal hernia K44.9 [facility] [address] 51659- 2983 July, [facility] [address] 96496- 6587 July, Anxiety F41.9 and Chronic pain syndrome G89.4 [facility] [address] 29143- 6438 July, [facility] [id number] [place] [address] 00798- 2556 Jun, Chronic pain syndrome G89.4 [facility] [id number] [place] [address] 92804- 3314 Jun, Chronic pain syndrome G89.4 [facility] [address] 53247- 5209 Jun, [facility] [address] 09793- 6368 Jun, Anxiety F41.9 [facility] [address] 27553- 6332 Jun, Allergic rhinitis, unspecified allergic rhinitis trigger, unspecified rhinitis seasonality J30.9 [facility] [id number] [place] [address] 32723- 7693 Jun, [facility] [id number] [place] [address] 53130- 0916 May, Chronic pain syndrome G89.4 [facility] [id number] [place] [address] 84544- 0948 May, [facility] [address] 06825- 9690 May, [facility] [id number] [place] [address] 19994- 1035 May, Anxiety F41.9 [facility] [id number] [place] [address] 07547- 9854 May, Type 2 diabetes mellitus with diabetic [...] Anxiety F41.9 and Chronic pain syndrome G89.4 [facility] [id number] [place] [address] 04740- 3233 May, Essential hypertension I10 ; Type 2 diabetes mellitus with diabetic neuropathy, without long-term current use of insulin E11.40 ; Mixed hyperlipidemia E78.2 ; Chronic obstructive pulmonary disease, unspecified COPD type J44.9 and Chronic GERD K21.9 [facility] [id number] [place] [address] 54837- 5886 May, [facility] [id number] [place] [address] 46984- 5967 May, [facility] [id number] [place] [address] 55856- 2871 May, Type 2 diabetes mellitus with diabetic neuropathy, without long-term current use of insulin E11.40 [facility] [id number] [place] [address] 12287- 1285 May, Dementia without behavioral disturbance, unspecified dementia type F03.90 [facility] [id number] [place] [address] 24228- 7705 May, Type 2 diabetes mellitus with diabetic neuropathy, without long-term current use of insulin E11.40 ; Essential hypertension I10 ; Mixed hyperlipidemia E78.2 ; Chronic obstructive pulmonary disease, unspecified COPD type J44.9 ; Chronic GERD K21.9 and Osteoarthritis of both knees, unspecified osteoarthritis type M17.0 [facility] [id number] [place] [address] 35668- 8502 May, [facility] [id number] [place] [address] 81022- 2556 May, [facility] [id number] [place] [address] 31061- 7491 May, Anxiety F41.9 and Unspecified symptoms and signs involving cognitive functions and awareness R41.9 [facility] [id number] [place] [address] 39962- 9324 May, [facility] [address] [id number] [place] [address] [phone]- 3506 May, Type 2 diabetes mellitus with diabetic neuropathy, without long-term current use of insulin E11.40 ; Anxiety F41.9 and Chronic obstructive pulmonary disease, unspecified COPD type J44.9 [facility] [id number] [place] [address] 75371- 6101 May, [facility] [id number] [place] [address] 82325- 1642 May, [facility] [id number] [place] [address] 03734- 9080 May, [facility] [id number] [place] [address] 79601- 0572 May, Chronic obstructive pulmonary disease, unspecified COPD type J44.9 [facility] [id number] [place] [address] 98318- 6887 Mar, [facility] [id number] [place] [address] 58026- 6655 Mar, Arthritis of both knees M19.90 [facility] [id number] [place] [address] 14078- 1642 Mar, Type 2 diabetes mellitus with diabetic neuropathy, without long-term current use of insulin E11.40 [facility] [id number] [place] [address] 43423- 2246 Mar, [facility] [id number] [place] [address] 29804- 2508 Mar, Neck pain M54.2 and Weakness generalized R53.1 [facility] [id number] [place] [address] 42313- 4162 Mar, [facility] [address] 17741- 6166 Mar, Cervicalgia M54.2 and Impacted cerumen of both ears H61.23 [facility] [address] 76276- 1317 Mar, [facility] [address] 22466- 0154 Mar, Type 2 diabetes mellitus with diabetic neuropathy, without long-term current use of insulin E11.40 [facility] [id number] [place] [address] 06381- 3494 Feb, [facility] [id number] [place] [address] 42302- 5511 Feb, Hypoxia R09.02 [facility] [id number] [place] [address] 71012- 3022 Feb, [facility] [id number] [place] [address] 59466- 3739 Feb, [facility] [id number] [place] [address] 39776- 6381 Feb, [facility] [id number] [place] [address] 83969- 1991 Feb, Type 2 diabetes mellitus with diabetic neuropathy, without long-term current use of insulin E11.40 [facility] [id number] [place] [address] 53098- 8790 Feb, Osteoarthritis of both knees, unspecified osteoarthritis type M17.0 [facility] [address] 98721- 6458 Feb, [facility] [id number] [place] [address] 50139- 9287 Feb, [facility] [id number] [place] [address] 88377- 3377 Feb, [facility] [id number] [place] [address] 52564- 2180 Jan, [facility] [id number] [place] [address] 62404- 9088 Jan, [facility] [id number] [place] [address] 92727- 7328 Jan, [facility] [id number] [place] [address] 28264- 9691 Jan, [facility] [id number] [place] [address] 60648- 3900 Jan, Tinea pedis of both feet B35.3 [facility] [id number] [place] [address] 23229- 9091 Jan, Type 2 diabetes mellitus with diabetic [...] seasonality J30.9 and Encounter for immunization Z23 [facility] [id number] [place] [address] 67114- 9270 Jan, [facility] [id number] [place] [address] 11075- 1400 Jan, [facility] [id number] [place] [address] 76126- 7779 Dec, [facility] [address] [address] Dec, [facility] [id number] [place] [address] 22315 -5251 Dec, Unspecified asthma with (acute) exacerbation J45.901 and Chronic obstructive pulmonary disease with (acute) exacerbation J44.1 [facility] [id number] [place] [address] 76523- 8728 Dec, Arthritis of both knees M19.90 and Acute medial meniscus tear, right, initial encounter S83.241A [facility] [id number] [place] [address] 26758- 8599 Dec, [facility] [id number] [place] [address] 11457- 1782 Dec, [facility] [id number] [place] [address] 00554- 4042 Dec, [facility] [id number] [place] [address] 47034- 1430 Dec, [facility] [id number] [place] [address] 29827- 5163 Dec, History of pneumonia Z87.01 [facility] [id number] [place] [address] 24279- 2538 Dec, [facility] [id number] [place] [address] 24898- 8115 Dec, [facility] [id number] [place] [address] 98914- 0702 Dec, [facility] [id number] [place] [address] 82472- 2862 Dec, [facility] [id number] [place] [address] 83188- 1309 Dec, [facility] [id number] [place] [address] 95974- 0482 Dec, [facility] [id number] [address]69 30 Nov, 2015 Cough R05 and Pneumonia due to infectious organism, unspecified laterality, unspecified part of lung J18.9 [facility] [id number] [address]- 2755 28 Nov, 2015 [facility] [address] [place] [address]- 9730 22 Nov, 2015 Type 2 diabetes mellitus [...] allergic rhinitis trigger, unspecified rhinitis seasonality J30.9 [facility] [id number], [place] [address]- 2007 12 Nov, 2015 IMMUNIZATIONS No Known Immunizations SOCIAL HISTORY Never Assessed REASON FOR VISIT Controlled Med Refill PLAN OF CARE VITAL SIGNS MEDICATIONS Unknown Medications RESULTS No Results PROCEDURES No Known procedures INSTRUCTIONS MEDICATIONS ADMINISTERED No Known Medications MEDICAL (GENERAL) HISTORY Type Description Date Medical History hypertension Medical History chronic obstructive pulmonary disease (COPD)-wears 2L O2 per [place], uses English for home O2 Medical History Arthritis-knees and [...] TIA, [facility] 2014 Hospitalization History COPD exacerbation--[facility] 12/27/2015 [facility] - [facility] 02/2016 [facility] History [facility] pneumonia 11/2016 Hospitalization History COPD exacerbation - Dr Hartley Attending 12/2016 Hospitalization History Cough- [facility] [place] 04/10/2017 Hospitalization History [facility] - Possible Pneumonia 06/2017 Hospitalization History COPD hiatal hernia 08/2017
--- NOTE | 2018-01-05 16:24 | ED Chest Pain ---
General Stated Complaint: CHEST PAIN Source: patient, spouse Exam Limitations: no limitations (ALBA LIVE) History of Present Illness Date Seen by Provider: Jan 05, 2018 Time Seen by Provider: 16:04 Initial Comments The patient presents to the ER by Private conveyance with his and chief complaint is having a little chest pain started up within the last hour. He's having no shortness of breath but he has had a cough for the last 2-3 days productive of white sputum. He has a history of swelling in his both legs is no worse now than usual. He is on Plavix for primary prevention and has an allergy to aspirin. He quit smoking years ago but he does have a history of COPD. He says his pain is worse when he coughs but not on deep inspiration or pushing on his chest. He's having no nausea sweats chills fever. He uses a DuoNeb inhaler 3 times a day on average and he's used twice today already. He's not been on steroids in the past 4 weeks. He has a history of high cholesterol, diabetes on metformin only, hypertension, primary coronary disease, thyroid disease. He is followed by Dr. Leos but he's never had a heart catheterization, dysrhythmia or heart attack. (ALBA LIVE) Allergies and Home Medications Allergies Coded Allergies: Serotonin 5HT-3 Antagonists (Unverified Allergy, Unknown, 11/25/17) Tricyclic Compounds (Unverified Allergy, Unknown, 11/25/17) codeine (Verified Allergy, Unknown, 04/07/06) hydrocodone (Unverified Allergy, Unknown, 10/16/15) aspirin (Unverified Adverse Reaction, Mild, STOMACH IRRITATION, 11/25/17) Home Medications Amlodipine Besylate 10 Mg Tablet, 10 MG PO HS, (Reported) Atorvastatin Calcium 40 Mg Tablet, 40 MG PO HS, (Reported) Azithromycin 250 Mg Tablet, 250 MG PO DAILY Prescribed by: KRISTIAN LOCKHART on 11/25/17 1214 Benzonatate 100 Mg Capsule, 100 MG PO HS, (Reported) Cetirizine HCl 10 Mg Tablet, 10 MG PO DAILY, (Reported) Clonazepam 1 Mg Tablet, 1 MG PO TID, (Reported) Clopidogrel Bisulfate 75 Mg Tablet, 75 MG PO HS, (Reported) Doxazosin Mesylate 4 Mg Tablet, 4 MG PO HS, (Reported) Fluticasone Propionate 16 Gm [place].susp, 1 SPRAY NS BID, (Reported) Glipizide 5 Mg Tablet, 5 MG PO BID, (Reported) Glycerin/Propylene Glycol 15 Ml Drops, 1 DROP OU QID PRN for DRY EYES, (Reported ) Ipratropium/Albuterol Sulfate 3 Ml Ampul.neb, 3 ML IH TID, (Reported) Levocetirizine Dihydrochloride 5 Mg Tablet, 5 MG PO HS, (Reported) Metformin HCl 500 Mg Tablet, 250 MG PO DAILY PRN for BS ABOVE 200, (Reported) Mirabegron 25 Mg Tab.er.24h, 25 MG PO 1700, (Reported) Montelukast Sodium 10 Mg Tablet, 10 MG PO 1700, (Reported) Multivitamin 1 Each Tablet, 1 TAB PO DAILY, (Reported) Nystatin 15 Gm Cream..g., TOP HS, (Reported) Pregabalin 100 Mg Capsule, 100 MG PO TID, (Reported) Ranitidine HCl 150 Mg Tablet, 150 MG PO BID, (Reported) Rivastigmine 1 Each Patch.td24, 4.6 MG TD DAILY, (Reported) Tramadol HCl 50 Mg Tablet, 50 MG PO BID, (Reported) Triamcinolone Acet 15 Gm Cr, TP HS, (Reported) Vilazodone Hydrochloride 10 Mg Tablet, 10 MG PO HS, (Reported) Patient Home Medication List Home Medication List Reviewed: Yes (ALBA LIVE) Review of Systems Review of Systems Constitutional: No chills, No diaphoresis, No fever, No malaise EENTM: No Blurred Vision, No Double Vision Respiratory: Cough; Denies Orthopnea; Shortness of Air, Wheezing Cardiovascular: See HPI, Chest Pain, Edema; Denies Irregular Heart Rate, Denies Lightheadedness, Denies Palpitations, Denies Syncope Gastrointestinal: Denies Abdomen Distended, Denies Abdominal Pain, Denies Constipated, Denies Diarrhea, Denies Nausea, Denies Vomiting Genitourinary: Denies Burning, Denies Discharge Musculoskeletal: No back pain, No joint pain Skin: No pruritus, No rash Psychiatric/Neurological: Denies Headache, Denies Numbness (ALBA LIVE) Past Inajioi-Xibjtu-Giljvo Hx Patient Social History Alcohol Use: Denies Use Recreational Drug Use: No Smoking Status: Former Smoker Type Used: Cigars, Cigarettes Former Smoker, Quit: Mar 31, 1966 2nd Hand Smoke Exposure: No Recent Foreign Travel: No Contact w/Someone Who Travel: No Recent Hopitalizations: No (ALBA LIVE) Immunizations Up To Date Tetanus Booster (TDap): Unknown PED Vaccines UTD: No Date of Pneumonia Vaccine: Mar 31, 2016 Date of Influenza Vaccine: Dec 19, 2016 (ALBA LIVE) Seasonal Allergies Seasonal Allergies: No (ALBA LIVE) Past Medical History Surgeries: Yes (RIGHT EYELID BASAL CELL CANCER, HERNIA REPAIR) Abdominal, Adenoidectomy, Eye Surgery, Prostatectomy, Tonsillectomy Respiratory: Yes (O2 DEPENDENT AT 3L/NC CONTINUOUSLY) Pneumonia, Chronic Bronchitis, COPD, Emphysema Currently Using CPAP: No Currently Using BIPAP: No Cardiac: Yes Chronic Edema/Swelling, High Cholesterol, Hypertension Neurological: Yes Dementia Reproductive Disorders: No Sexually Transmitted Disease: No HIV/AIDS: No Genitourinary: Yes (PROSTATE CANCER > 10 YEARS AGO) Prostate Problems, Kidney Stones Gastrointestinal: Yes Abdominal Hernia, Gastroesophageal Reflux, Polyps, Hiatal Hernia Musculoskeletal: Yes Degenerate Disk Disease, Osteoporosis, Arthritis, Chronic Back Pain Endocrine: Yes Diabetes, Non-Insulin dep HEENT: Yes Cataract Loss of Vision: Right Hearing Impairment: Denies Cancer: Yes (PROSTATE CANCER, BASAL CELL CANCER OF RIGHT EYE) Prostate, Skin Did You Recieve Any Treatments: Yes What Type of Treatment Did You: Surgical Intervention Psychosocial: Yes Anxiety, Depression Integumentary: Yes (SKIN CANCER; PRESSURE ULCER LEFT BUTTOCK) Blood Disorders: No Adverse Reaction/Blood Tranf: No (ALBA LIVE) Family Medical History FH: breast cancer G8 SISTER Myocardial infarction 19 FATHER Heart Disease, Lung Disease (ALBA LIVE) Physical Exam Vital Signs Vital Signs - First Documented 01/05/18 15:41 Temp 98.5 Pulse 76 Resp 12 B/P (MAP) 128/70 (89) Pulse Ox 91 O2 Delivery Nasal Cannula O2 Flow Rate 3.0 (MOISES NELSON) Vital Signs Capillary Refill : (ALBA LIVE) Height, Weight, BMI Height: 6'0.00" Weight: 245lbs. 6.0oz. 111.403857mj; 30.6 BMI Method:Stated General Appearance: No Apparent Distress, WD/WN HEENT: PERRL/EOMI, Normal ENT Inspection, Pharynx Normal, Moist Mucous Membranes Neck: Full Range of Motion, Non Tender, Supple Respiratory: No Respiratory Distress, Accessory Muscle Use (mild), Decreased Breath Sounds, Other (chest wall is tender to palpation in the the says this is not the same pain he is feeling when he coughs. He has fairly pronounced kyphosis and pectus excavatum.) Cardiovascular: Regular Rate, Rhythm, Normal Peripheral Pulses, Other (2+ pitting edema bilateral lower extremities to the shins) Gastrointestinal: Normal Bowel Sounds, Non Tender, Soft Extremity: Normal Capillary Refill, Non Tender, Pedal Edema Neurologic/Psychiatric: Alert, Oriented x3, No Motor/Sensory Deficits, Normal Mood/Affect, engineer station mainline II-XII Norm as Tested Skin: Normal Color, Warm/Dry (ALBA LIVE) Progress/Results/Core Measures Results/Orders Lab Results Laboratory Tests Test 01/05/18 16:11 01/05/18 18:05 Range/Units White Blood Count 7.4 4.3-11.0 10^3/uL Red Blood Count 4.07 L 4.35-5.85 10^6/uL Hemoglobin 12.2 L 13.3-17.7 G/DL Hematocrit 37 L 40-54 % Mean Corpuscular Volume 90 80-99 FL Mean Corpuscular Hemoglobin 30 25-34 PG Mean Corpuscular Hemoglobin Concent 33 32-36 G/DL Red Cell Distribution Width 12.8 10.0-14.5 % Platelet Count 189 130-400 10^3/uL Mean Platelet Volume 9.6 7.4-10.4 FL Neutrophils (%) (Auto) 52 42-75 % Lymphocytes (%) (Auto) 29 12-44 % Monocytes (%) (Auto) 14 H 0-12 % Eosinophils (%) (Auto) 4 0-10 % Basophils (%) (Auto) 0 0-10 % Neutrophils # (Auto) 3.9 1.8-7.8 X 10^3 Lymphocytes # (Auto) 2.2 1.0-4.0 X 10^3 Monocytes # (Auto) 1.0 0.0-1.0 X 10^3 Eosinophils # (Auto) 0.3 0.0-0.3 10^3/uL Basophils # (Auto) 0.0 0.0-0.1 10^3/uL Prothrombin Time 14.5 12.2-14.7 SEC INR Comment 1.1 0.8-1.4 Activated Partial Thromboplast Time 31 24-35 SEC D-Dimer 0.68 H 0.00-0.49 UG/ML Sodium Level 138 135-145 MMOL/L Potassium Level 4.1 3.6-5.0 MMOL/L Chloride Level 103 98-107 MMOL/L Carbon Dioxide Level 24 21-32 MMOL/L Anion Gap 11 5-14 MMOL/L Blood Urea Nitrogen 8 7-18 MG/DL Creatinine 0.94 0.60-1.30 MG/DL Estimat Glomerular Filtration Rate > 60 BUN/Creatinine Ratio 9 Glucose Level 110 H 70-105 MG/DL Calcium Level 9.3 8.5-10.1 MG/DL Corrected Calcium 9.2 8.5-10.1 MG/DL Magnesium Level 2.0 1.8-2.4 MG/DL Total Bilirubin 0.5 0.1-1.0 MG/DL Aspartate Amino Transf (AST/SGOT) 49 H 5-34 U/L Alanine Aminotransferase (ALT/SGPT) 40 0-55 U/L Alkaline Phosphatase 72 40-136 U/L Myoglobin 89.9 10.0-92.0 NG/ML Troponin I < 0.30 < 0.30 <0.30 NG/ML C-Reactive Protein High Sensitivity 1.01 H 0.00-0.50 MG/DL B-Type Natriuretic Peptide 13.0 <100.0 PG/ML Total Protein 7.0 6.4-8.2 GM/DL Albumin 4.1 3.2-4.5 GM/DL (MOISES NELSON) Micro Results Microbiology 01/05/18 Influenza Types A,B Antigen ([facility]EN) - Final, Complete (MOISES NELSON) Medications Given in ED Current Medications Medications Dose Ordered Sig/Bernice Route Start Time Stop Time Status Last Admin Dose Admin Al Hydrox/Mg Hydrox/Simethicone 30 ml ONCE ONCE PO 01/05/18 16:15 01/05/18 16:18 DC 01/05/18 16:29 30 ML Albuterol/ Ipratropium 3 ml ONCE ONCE INH 01/05/18 16:15 01/05/18 16:18 DC 01/05/18 16:44 3 ML Iohexol 150 ml ONCE ONCE IV 01/05/18 17:45 01/05/18 17:57 DC 01/05/18 18:28 140 ML Lidocaine HCl 15 ml ONCE ONCE PO 01/05/18 16:15 01/05/18 16:18 DC 01/05/18 16:29 15 ML Sodium Chloride 250 ml ONCE ONCE IV 01/05/18 17:45 01/05/18 17:57 DC 01/05/18 18:28 80 ML Sodium Chloride 500 ml @ 0 mls/hr Q0M ONCE IV 01/05/18 16:14 01/05/18 16:18 DC 01/05/18 16:30 1,000 MLS/HR (MOISES NELSON) Vital Signs/I&O 01/05/18 01/05/18 01/05/18 01/05/18 15:41 15:41 16:44 20:03 Temp 98.5 97.6 Pulse 76 73 Resp 12 12 B/P (MAP) 128/70 (89) 129/72 (91) Pulse Ox 91 91 92 O2 Delivery Nasal Cannula Nasal Cannula Nasal Cannula Nasal Cannula O2 Flow Rate 3.0 3.00 2.50 3.00 (MOISES NELSON) Progress Progress Note #1: Time: 16:27 Progress Note Coronaries a possibility but also could be COPD/pneumonia/CHF exacerbation. He is having no fever or history of fever or chills. We'll get a CRP in addition to our labs to help us interpret the x-ray. He has an adverse reaction to aspirin so we'll hold off giving him that. His blood pressure is 120 and he rates the pain as a 6 out of 10 but I like to hold off giving nitroglycerin we don't cause hypotension if pneumonia is source of his chest pain since it sounds more pleuritic in nature. We will give a GI cocktail and if his pain persists we will use morphine. We'll cautiously use fluids 1 L to start until he got the BNP/chest x-ray back. Historically he has a first-degree AV block. 2-D echocardiogram by Dr. Marin 2015 demonstrates ejection fraction 60% mild left ventricular hypertrophy and left atrial dilation. Stress test June 2017 ejection fraction 75% without evidence of significant myocardial ischemia or infarction on this study. Normal regional wall motion and global left ventricular systolic function. Progress Note #2: Time: 17:40 Progress Note The patient's chest pain resolved with the GI cocktail and his breathing got better after a DuoNeb. He is feeling better and think she like to go home. D- dimer is elevated we discussed risks, benefits and alternatives to doing a CT with angiogram and he agrees to do it. Finally we will get a repeat troponin now which would be about 3 hours after initial chest pain. (ALBA LIVE) Progress Note : Progress Note 1900: I have seen and reevaluated the patient. I have informed him of normal laboratory and imaging studies. Dr. Live had spoke to his primary care provider and radiology and they had planned for outpatient follow-up given normal repeat troponin and CT angiogram results. Patient otherwise agrees with plan of care, plans for discharge, return precautions were given. (MOISES NELSON) Initial ECG Impression Date: Jan 05, 2018 Initial ECG Impression Time: 15:53 Initial ECG Rate: 71 Initial ECG Rhythm: Normal Sinus Initial ECG Intervals: TN (260) Initial ECG Impression: 1st Degree AV Block Initial ECG Comparisson: Unchanged Comment First-degree AV block. No acute ST elevation or depression. (ALBA LIVE) Diagnostic Imaging Diagonstic Imaging: Xray Plain Films/CT/US/NM/MRI: chest (1v) Comments VIA [facility]. [place], [place] NAME: ISABELA ESPINOZA [facility] REC#: [id number] PT STATUS: REG ER : 1935 PHYSICIAN: ALBA LIVE MD ADMIT DATE: 01/05/18/ER Draft Date of Exam:01/05/18 CHEST 1 VIEW, AP/PA ONLY INDICATION: Chest pain. TECHNIQUE: A frontal chest was obtained at 4:26 PM. COMPARISON: 11/25/2017. FINDINGS: The heart is borderline in size. There is poor inspiration with a somewhat lordotic projection. There is no definite infiltrate. There are chronic appearing increased basilar markings. IMPRESSION: Limited study with poor inspiration and lordotic projection. Borderline heart size with chronic appearing increased basilar markings appearing similar to the prior study. There is no definite new abnormality. Dictated on workstation # [id number] Dict: 01/05/18 1633 Trans: 01/05/18 1635 [id number] Interpreted by: STEFFEN JORGENSEN MD Electronically signed by: Reviewed: Reviewed by Me Diagonstic Imaging: CT (angiogram) Plain Films/CT/US/NM/MRI: chest Reviewed: Reviewed by Me (ALBA LIVE) Comments NAME: ISABELA ESPINOZA MED REC#: [id number] PT STATUS: REG ER : 1935 PHYSICIAN: ALBA LIVE MD ADMIT DATE: 01/05/18/ER Draft Date of Exam:01/05/18 CT ANGIO CHEST W PROCEDURE: CT angiography of the chest with contrast. TECHNIQUE: Multiple contiguous axial images were obtained through the chest after uneventful bolus administration of intravenous contrast. 2D reconstructed CTA MIP acquisitions were also performed. INDICATION: Chest pain. COMPARISON: 07/09/2016. FINDINGS: Vasculature: No pulmonary emboli. No CT evidence of pulmonary hypertension or right ventricular strain. Thoracic aorta is normal in caliber. No aortic dissection or pseudoaneurysm. Heart and mediastinum: Visualized thyroid is normal. No supraclavicular, axillary, or intra-thoracic lymphadenopathy. Cardiomegaly. No pericardial effusion. Moderate-sized sliding-type hiatal hernia is unchanged. Pleura: No pleural effusion or pneumothorax. Lungs and airway: No endoluminal lesion in the trachea or central bronchi. No pulmonary mass, nodule or consolidation. There is a small amount of subsegmental atelectasis or scar within the lung bases. Upper abdomen: Diffuse hypoattenuation of the liver is indicative of hepatic steatosis. Calcified splenic granulomas. Musculoskeletal: No concerning osseous lesion. IMPRESSION: 1. No acute cardiopulmonary process. Specifically, no pulmonary emboli or acute aortic syndrome. 2. Hepatic steatosis. 3. Stable moderate-sized hiatal hernia. Dictated on workstation # [id number] Dict: 01/05/18 1849 Trans: 01/05/18 1855 [facility] [id number] Interpreted by: DOROTEO STEEN MD Electronically signed by: (MOISES NELSON) Consults : Consulting Physician: CARLOS HA MD FACP FAC CCDS (ALBA LIVE) Transfer of Care Time: 18:00 Care transferred to: Moises Nelson (ASHANTI,ALBA J) Departure Impression Primary Impression: COPD exacerbation Additional Impression: Chest pain Disposition: 01 HOME, SELF-CARE Condition: Stable/Unchanged Departure-Patient Inst. Decision time for Depature: 19:13 (MOISES NELSON) Referrals: DARIN PINEDO MD (PCP/Family) Primary Care Physician Patient Instructions: Chest Pain That Is Not Caused by the Heart (DC), Chronic Obstructive Pulmonary Disease (COPD), Including Emphysema Add. Discharge Instructions: Patient home medications as previously instructed. Follow-up with her primary care provider within 1 week for recheck. Return back to the emergency room for any return of chest pain, shortness of breath, worsening symptoms, or any other concerns as needed. ALBA LIVE Jan 05, 2018 16:24 MOISES NELSON Jan 05, 2018 19:14
--- OUTSIDE RECORDS SUMMARY | 2018-01-05 16:24 | XMS REPORT ---
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 Active 143938893 Problem Mixed hyperlipidemia E78.2 Active 550546229 Problem Type 2 diabetes mellitus with diabetic neuropathy, without long-term current use of insulin E11.40 Active 03598311 Problem Chronic obstructive pulmonary disease, unspecified COPD type J44.9 Active 93180942 Problem Hypoxia R09.02 Active 996254835 Problem Osteoarthritis of both knees, unspecified osteoarthritis type M17.0 Active 583315873 Problem Allergic rhinitis, unspecified allergic rhinitis trigger, unspecified rhinitis seasonality J30.9 Active 50651695 Problem Chronic pain syndrome G89.4 Active 508933474 ALLERGIES No Information ENCOUNTERS Encounter Location Date Diagnosis [facility] [id number] [address] Nov, [facility] [id number] [place] [address] 96831- 5960 27 Nov, 2017 Encounter for immunization Z23 [facility] [address] [address]- 4768 27 Nov, 2017 [place] [address] 65[address]- 3197 Nov, Dermatitis associated with moisture L30.8 ; Pressure injury of buttock, stage 1, unspecified laterality L89.301 and Seasonal allergies J30.2 [place] [id number] [place] [address] 60955- 4017 Nov, [place] [address] 81247- 3511 25 Nov, 2017 [place] [address] 53734- 2822 17 Nov, 2017 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 [place] [address] 28685- 1438 14 Nov, 2017 [place] [address] 60137- 4386 12 Nov, 2017 Unspecified urinary incontinence R32 and Unspecified contact dermatitis due to other agents L25.8 [place] [address] [id number] [place] [address] 75272- 3129 11 Nov, 2017 Chronic pain syndrome G89.4 [place] [address] 38864- 2396 10 Nov, 2017 Type 2 diabetes mellitus with diabetic neuropathy, without long-term current use of insulin E11.40 [place] [address] 68195- 5754 04 Nov, 2017 [place] [address] [id number] [place] [address] 29561- 5234 04 Nov, 2017 Chronic obstructive pulmonary disease, unspecified COPD type J44.9 and Gastroesophageal reflux disease without esophagitis K21.9 [place] [id number] [place] [address] 93774- 5350 Oct, [facility] [id number] [place] [address] 73469- 2480 Oct, [facility] [id number] [place] [address] 60207- 1776 Oct, Chronic pain syndrome G89.4 [facility] [id number] [place] [address] 21084- 0814 Oct, Community acquired bacterial pneumonia J15.9 ; Allergic rhinitis, unspecified allergic rhinitis trigger, unspecified rhinitis seasonality J30.9 ; Type 2 diabetes mellitus with diabetic neuropathy, without long-term current use of insulin E11.40 ; Chronic GERD K21.9 and Chronic obstructive pulmonary disease, unspecified COPD type J44.9 [facility] [id number] [place] [address] 40511- 7629 Oct, [facility] [id number] [place] [address] 36441- 1775 Oct, [facility] [id number] [place] [address] 42621- 9368 Oct, [facility] [id number] [place] [address] 39989- 6215 Oct, [facility] [id number] [place] [address] 14898- 9122 Oct, Essential hypertension I10 [facility] [address] [place] [address] 31400- 6691 Oct, Type 2 diabetes mellitus with diabetic neuropathy, without long-term current use of insulin E11.40 ; Chronic obstructive pulmonary disease , unspecified COPD type J44.9 ; Mixed hyperlipidemia E78.2 ; Osteoarthritis of both knees, unspecified osteoarthritis type M17.0 ; 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 and Essential hypertension I10 [facility] [address], [place] [address] 3[address] Oct, [facility] [address], [place] [address] 3[address] Oct, [facility] [id number] [place] [address] 29445- 9415 Oct, Yeast dermatitis B37.2 [facility] [address] [place] [address] 29498- 4570 Oct, Chronic pain syndrome G89.4 [facility] [id number] [place] [address] 40985- 3197 Sep, [facility] [id number] [place] [address] 26720- 8724 Sep, [facility] [id number] [place] [address] 18345- 6348 Sep, 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 and Chronic pain syndrome G89.4 [facility] [id number] [place] [address] 90619- 5296 Sep, COPD with acute exacerbation J44.1 [facility] [address], [place] [address] 2345 Sep, [facility] [id number] [place] [address] 85030- 5746 Sep, [facility] [address], [place] [address] 9580 Sep, Gastroesophageal reflux disease without esophagitis K21.9 [facility] [address], [place] [address] 4277 Aug, [facility] [address], [place] [address] 5797 Aug, [facility] [id number] [place] [address] 71583- 7933 Aug, 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 ; Hospital discharge follow-up Z09 ; Chronic obstructive pulmonary disease, unspecified COPD type J44.9 and Chronic GERD K21.9 [place] [id number] [place] [address] 59731- 1281 Aug, Chronic pain syndrome G89.4 [facility] [id number] [place] [address] 75200- 0711 Aug, [facility] [id number] [place] [address] 46488- 2506 Aug, [facility] [id number] [place] [address] 84414- 5723 Aug, Chronic pain syndrome G89.4 and 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 [place] [address] 97592- 6557 Aug, Type 2 diabetes mellitus with diabetic neuropathy, without long-term current use of insulin E11.40 ; Chronic obstructive pulmonary disease , unspecified COPD type J44.9 ; Chronic GERD K21.9 and 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 [facility] [id number] [place] [address] 79181- 7668 Aug, [facility] [id number] [place] [address] 54165- 7302 Aug, Essential hypertension I10 and Cough R05 [facility] [id number] [place] [address] 61262- 8667 Aug, [facility] [id number] [place] [address] 85047- 1782 Aug, [facility] [id number] [place] [address] 82566- 4290 Aug, [facility] [id number] [place] [address] 92668- 8984 Aug, Chronic pain syndrome G89.4 [facility] [id number] [place] [address] 79822- 5505 Aug, [facility] [id number] [place] [address] 87292- 4652 Aug, [place] [id number] [place] [address] 42207- 7242 July, Gastroesophageal reflux disease without esophagitis K21.9 [place] [id number] [place] [address] 11653- 3774 July, [place] [id number] [place] [address] 98275- 6942 July, [place] [id number] [place] [address] 83095- 5315 July, [place] [id number] [place] [address] 50256- 5364 July, Essential hypertension I10 and Chronic pain syndrome G89.4 [place] [id number] [place] [address] 38861- 5986 July, Gastroesophageal reflux disease without esophagitis K21.9 [place] [id number] [place] [address] 22137- 1908 July, 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 [place] [id number] [place] [address] 99788- 0566 July, Chronic obstructive pulmonary disease, unspecified COPD type J44.9 ; Nocturnal cough R05 ; 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 and Recurrent major depressive disorder, in partial 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 [place] [id number] [place] [address] 30430- 6223 July, [place] [address] [id number] [place] [address] 37043- 9761 July, Type 2 diabetes mellitus with diabetic neuropathy, without long-term current use of insulin E11.40 [place] [id number] [place] [address] 94108- 7947 July, Nocturnal hypoxemia G47.34 ; Chronic obstructive pulmonary disease, unspecified COPD type J44.9 and Nocturnal cough R05 [place] [address] [id number] [place] [address] 32141- 3814 July, [facility] [id number] [place] [address] 27987- 0630 July, [facility] [id number] [place] [address] 54488- 0346 July, [facility] [id number] [place] [address] 52157- 5998 Jun, Chronic pain syndrome G89.4 [facility] [id number] [place] [address] 72464- 7441 Jun, [facility] [id number] [place] [address] 48596- 4477 Jun, [facility] [id number] [place] [address] 20324- 0723 Jun, 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 [facility] [id number] [place] [address] 45147- 1770 Jun, [facility] [id number] [place] [address] 48974- 8598 Jun, Gastroesophageal reflux disease without esophagitis K21.9 [facility] [id number] [place] [address] 70370- 3593 Jun, Allergic rhinitis, unspecified allergic rhinitis trigger, unspecified rhinitis seasonality J30.9 [facility] [id number] [place] [address] 18674- 9145 Jun, Chronic pain syndrome G89.4 [facility] [id number] [place] [address] 04154- 6413 May, [facility] [id number] [place] [address] 70323- 7506 15 May, 2017 COPD with acute exacerbation J44.1 [facility] [id number] [place] [address] 07138- 2189 14 May, 2017 Type 2 diabetes mellitus with diabetic neuropathy, without long-term current use of insulin E11.40 ; COPD with acute exacerbation J44.1 ; Hypoxia R09.02 ; Chronic pain syndrome G89.4 ; Yeast dermatitis B37.2 ; 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 and 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 [facility] [id number] [place] [address] 83461- 1601 May, [facility] [address] 37981- 3815 May, Chronic pain syndrome G89.4 [facility] [id number] [place] [address] 00365- 7234 May, [facility] [address] 47597- 6051 May, [facility] [address] 10160- 9936 May, Mixed hyperlipidemia E78.2 [facility] [address] 10900- 7723 May, Chronic pain syndrome G89.4 [facility] [address] 34912- 1209 May, Anxiety F41.9 and Chronic pain syndrome G89.4 [facility] [id number] [place] [address] 30039- 2308 Mar, [facility] [id number] [place] [address] 29899- 5961 Mar, [facility] [id number] [place] [address] 96387- 6258 Mar, [facility] [id number] [place] [address] 23486- 8086 Mar, [facility] [id number] [place] [address] 19713- 0042 Mar, [facility] [address] 84123- 1968 Mar, Anxiety F41.9 and Chronic pain syndrome G89.4 [place] [id number] [place] [address] 49099- 7009 Mar, Medicare annual wellness visit, initial Z00.00 [...] Hiatal hernia K44.9 and Actinic keratosis L57.0 [place] [id number] [place] [address] 72147- 2791 Mar, [place] [id number] [place] [address] 85688- 7530 Mar, Chronic pain syndrome G89.4 [place] [id number] [place] [address] 97686- 0876 Feb, [place] [id number] [place] [address] 55335- 8837 Feb, Chronic pain syndrome G89.4 [place] [id number] [place] [address] 24761- 3632 Feb, [place] [address] [id number] [place] [address] 24988- 8039 Feb, [place] [address] [id number] [place] [address] 78214- 3584 Feb, Anxiety F41.9 [place] [id number] [place] [address] 97867- 8366 Feb, [place] [id number] [place] [address] 95677- 7044 Feb, Chronic pain syndrome G89.4 [facility] [id number] [place] [address] 06161- 7840 Jan, Essential hypertension I10 [facility] [id number] [place] [address] 24929- 2419 Jan, Chronic pain syndrome G89.4 [facility] [address] 44174- 0392 Jan, [place] [id number] [place] [address] 14853- 8983 Jan, Anxiety F41.9 [place] [address] 95550- 2470 Jan, Encounter for immunization Z23 and Community acquired pneumonia, unspecified laterality J18.9 [place] [id number] [place] [address] 70680- 4022 Jan, Type 2 diabetes mellitus with diabetic neuropathy, without long-term current use of insulin E11.40 [place] [id number] [place] [address] 91726- 2858 Dec, Anxiety F41.9 and Chronic pain syndrome G89.4 [place] [id number] [place] [address] 74398- 5218 Dec, Chronic pain syndrome G89.4 and Essential hypertension I10 [place] [id number] [place] [address] 64687- 3274 Dec, [facility] [id number] [place] [address] 81042- 9910 Dec, Anxiety F41.9 [facility] [id number] [place] [address] 73388- 9025 Dec, [facility] [id number] [place] [address] 44460- 3591 Dec, Type 2 diabetes mellitus with diabetic neuropathy, without long-term current use of insulin E11.40 ; Lactic acidosis E87.2 ; Chronic obstructive pulmonary disease, unspecified COPD type J44.9 and Encounter for immunization Z23 [facility] [id number] [place] [address] 44014- 0579 Dec, Chronic pain syndrome G89.4 [facility] [id number] [place] [address] 83982- 0235 Nov, [facility] [id number] [place] [address] 82992- 8835 Nov, Chronic pain syndrome G89.4 [facility] [id number] [place] [address] 40434- 7656 Nov, [facility] [id number] [place] [address] 60025- 4190 Nov, [facility] [id number] [place] [address] 48948- 8346 Nov, Anxiety F41.9 [facility] [id number] [place] [address] 43858- 1010 Nov, Anxiety F41.9 [facility] [id number] [place] [address] 90007- 4318 Nov, [facility] [id number] [place] [address] 61953- 3364 Nov, [facility] [id number] [place] [address] 80890- 9300 Nov, [facility] [id number] [place] [address] 15400- 1115 Oct, [facility] [id number] [place] [address] 86178- 6445 Oct, [facility] [address] [place] [address] 64525- 0389 Oct, [facility] [id number] [place] [address] 45881- 8162 Oct, Essential hypertension I10 and Chronic pain syndrome G89.4 [facility] [id number] [place] [address] 67070- 3553 Oct, Anxiety F41.9 [facility] [id number] [place] [address] 26433- 5932 Oct, [facility] [id number] [place] [address] 53943- 6408 Oct, Chronic pain syndrome G89.4 [facility] [id number] [place] [address] 25903 -5595 Oct, Sore throat J02.9 and Acute nasopharyngitis (common cold) J00 [facility] [id number] [place] [address] 12943- 1069 Sep, [facility] [id number] [place] [address] 46157- 6379 Sep, COPD exacerbation J44.1 [facility] [id number] [place] [address] 40548- 8587 Sep, Chronic pain syndrome G89.4 [facility] [id number] [place] [address] 48954- 7037 Sep, Essential hypertension I10 [facility] [id number] [place] [address] 32555- 2119 Sep, [facility] [id number] [place] [address] 01446- 4674 Sep, [facility] [address] [place] [address] 67791- 6796 Sep, Anxiety F41.9 [facility] [id number] [place] [address] 57739- 9811 Sep, Chronic pain syndrome G89.4 [facility] [id number] [place] [address] 29039- 2411 Sep, [facility] [id number] [place] [address] 75399- 8963 Aug, Acute seasonal allergic rhinitis, unspecified trigger J30.2 ; Hiatal hernia K44.9 and Chronic pain syndrome G89.4 [facility] [id number] [place] [address] 51051- 1409 Aug, [facility] [id number] [place] [address] 41032- 8135 Aug, [facility] [id number] [place] [address] 90794- 7264 Aug, Chronic obstructive pulmonary disease, unspecified COPD type J44.9 [facility] [id number] [place] [address] 96809- 4335 14 Aug, 2016 Anxiety F41.9 [facility] [id number] [place] [address] 60059- 9459 Aug, Chronic pain syndrome G89.4 [facility] [id number] [place] [address] 59223- 1330 Aug, Hiatal hernia K44.9 and Actinic keratosis L57.0 [place] [id number] [place] [address] 95665- 2421 Aug, [facility] [id number] [place] [address] 34637- 4871 Aug, Anxiety F41.9 [facility] [id number] [place] [address] 25122- 2873 July, [facility] [id number] [place] [address] 11188- 7866 July, Hiatal hernia K44.9 [facility] [address] [place] [address] 20499- 6821 July, [facility] [id number] [place] [address] 02638- 6015 July, Anxiety F41.9 and Chronic pain syndrome G89.4 [facility] [address] [address]- 8888 July, [facility] [id number] [place] [address] 06715881- 0706 Jun, Chronic pain syndrome G89.4 [facility] [id number] [place] [address] 78638- 4510 Jun, Chronic pain syndrome G89.4 [facility] [id number] [place] [address] 10100- 3036 Jun, [facility] [id number] [place] [address] 56612- 7808 Jun, Anxiety F41.9 [facility] [id number] [place] [address] 98586- 8442 Jun, Allergic rhinitis, unspecified allergic rhinitis trigger, unspecified rhinitis seasonality J30.9 [facility] [id number] [place] [address] 85035- 1440 Jun, [facility] [id number] [place] [address] 26844- 0626 May, Chronic pain syndrome G89.4 [facility] [id number] [place] [address] 14601- 1903 May, [facility] [id number] [place] [address] 42309- 6803 May, [facility] [id number] [place] [address] 15190- 8895 May, Anxiety F41.9 [facility] [address] [id number] [place] [address] 37250- 0472 May, Type 2 diabetes mellitus with diabetic [...] Anxiety F41.9 and Chronic pain syndrome G89.4 [place] [id number] [place] [address] 41451- 0710 May, Essential hypertension I10 ; Type 2 diabetes mellitus with diabetic neuropathy, without long-term current use of insulin E11.40 ; Mixed hyperlipidemia E78.2 ; Chronic obstructive pulmonary disease, unspecified COPD type J44.9 and Chronic GERD K21.9 [place] [id number] [place] [address] 19560- 8240 May, [place] [address] 57916- 6470 May, [place] [address] 08892- 1680 May, Type 2 diabetes mellitus with diabetic neuropathy, without long-term current use of insulin E11.40 [place] [id number] [place] [address] 69543- 0340 May, Dementia without behavioral disturbance, unspecified dementia type F03.90 [place] [id number] [place] [address] 62782- 1029 May, Type 2 diabetes mellitus with diabetic neuropathy, without long-term current use of insulin E11.40 ; Essential hypertension I10 ; Mixed hyperlipidemia E78.2 ; Chronic obstructive pulmonary disease, unspecified COPD type J44.9 ; Chronic GERD K21.9 and Osteoarthritis of both knees, unspecified osteoarthritis type M17.0 [place] [id number] [place] [address] 19340- 8855 May, [place] [id number] [place] [address] 21729- 2957 May, [place] [id number] [place] [address] 21212- 3693 May, Anxiety F41.9 and Unspecified symptoms and signs involving cognitive functions and awareness R41.9 [facility] [id number] [place] [address] 65132- 2714 May, [facility] [id number] [place] [address] 98151- 4481 May, Type 2 diabetes mellitus with diabetic neuropathy, without long-term current use of insulin E11.40 ; Anxiety F41.9 and Chronic obstructive pulmonary disease, unspecified COPD type J44.9 [facility] [id number] [place] [address] 66522- 0431 May, [facility] [id number] [place] [address] 73684- 8291 May, [facility] [id number] [place] [address] 46460- 2981 May, [facility] [id number] [place] [address] 07866- 3457 May, Chronic obstructive pulmonary disease, unspecified COPD type J44.9 [facility] [id number] [place] [address] 32896- 7112 Mar, [facility] [id number] [place] [address] 91377- 2300 Mar, Arthritis of both knees M19.90 [facility] [id number] [place] [address] 35094- 7373 Mar, Type 2 diabetes mellitus with diabetic neuropathy, without long-term current use of insulin E11.40 [facility] [id number] [place] [address] 13711- 0773 Mar, [facility] [id number] [place] [address] 23851- 2894 Mar, Neck pain M54.2 and Weakness generalized R53.1 [facility] [id number] [place] [address] 09571- 7679 Mar, [facility] [address] [place] [address] 5169 Mar, Cervicalgia M54.2 and Impacted cerumen of both ears H61.23 [facility] [address] 52325- 5817 Mar, [facility] [address] 17772- 6801 Mar, Type 2 diabetes mellitus with diabetic neuropathy, without long-term current use of insulin E11.40 [facility] [id number] [place] [address] 74947- 8823 Feb, [facility] [address] 77074- 0842 Feb, Hypoxia R09.02 [facility] [address] 72824- 9287 Feb, [facility] [address] 95309- 6460 Feb, [facility] [id number] [place] [address] 70773- 6189 Feb, [facility] [id number] [place] [address] 23483- 0319 16 Feb, 2016 Type 2 diabetes mellitus with diabetic neuropathy, without long-term current use of insulin E11.40 [facility] [id number] [place] [address] 80959- 7836 Feb, Osteoarthritis of both knees, unspecified osteoarthritis type M17.0 [facility] [id number] [place] [address] 95720- 6682 Feb, [facility] [id number] [place] [address] 34018- 2771 Feb, [facility] [id number] [place] [address] 73134- 1892 09 Feb, 2016 [facility] [address] 93737- 4494 Jan, [facility] [id number] [place] [address] 26459- 1075 Jan, [facility] [id number] [place] [address] 11403- 4056 Jan, [facility] [address] 99576- 4194 Jan, [facility] [address] 24220- 8640 Jan, Tinea pedis of both feet B35.3 [place] [address] 01373- 6249 03 Jan, 2016 Type 2 diabetes mellitus [...] seasonality J30.9 and Encounter for immunization Z23 [facility] [id number] [place] [address] 94972- 7085 Jan, [facility] [id number] [place] [address] 19898- 8512 Jan, [facility] [id number] [place] [address] 74779- 9394 Dec, [facility] [address] 39474- 3378 Dec, [facility] [id number] [place] [address] 94252 -8156 Dec, Unspecified asthma with (acute) exacerbation J45.901 and Chronic obstructive pulmonary disease with (acute) exacerbation J44.1 [facility] [address] [address] Dec, Arthritis of both knees M19.90 and Acute medial meniscus tear, right, initial encounter S83.241A [facility] [id number] [place] [address], [place] [address]- 2486 Dec, [facility] [id number] [place] [address] 75991- 9047 Dec, [facility] [id number] [place] [address] 29666- 1981 14 Dec, 2015 [facility] [id number] [place] [address] 28703- 9866 Dec, [facility] [id number] [place] [address] 09167- 5850 Dec, History of pneumonia Z87.01 [facility] [id number] [place] [address] 26001- 5801 Dec, [facility] [id number] [place] [address] 42683- 2014 Dec, [facility] [id number] [place] [address] 11727- 4669 05 Dec, 2015 [facility] [id number] [place] [address] 63903- 2056 Dec, [facility] [id number] [place] [address] 55658- 0459 Dec, [facility] [id number] [place] [address] 89231- 1204 Dec, [facility] [id number] [place] [address] 35235- 5575 30 Nov, 2015 Cough R05 and Pneumonia due to infectious organism, unspecified laterality, unspecified part of lung J18.9 [facility] [id number] [place] [address] 09244- 9499 Nov, [facility] [address] [facility] [id number] [place] [address]- 8824 Nov, Type 2 diabetes mellitus with diabetic [...] J30.9 [facility] [address] [facility] [id number] [place] [address]- 0405 Nov, IMMUNIZATIONS No Known Immunizations SOCIAL HISTORY Never Assessed REASON FOR VISIT [facility] call PLAN OF CARE VITAL SIGNS MEDICATIONS Unknown Medications RESULTS No Results PROCEDURES No Known procedures INSTRUCTIONS MEDICATIONS ADMINISTERED No Known Medications MEDICAL (GENERAL) HISTORY Type Description Date Medical History hypertension Medical History chronic obstructive pulmonary disease (COPD)-wears 2L O2 per [place], uses [employer] for home O2 Medical History Arthritis-knees and [...] TIA, [facility] 2014 Hospitalization History COPD exacerbation--[facility] 12/27/2015 [facility] 02/2016 [facility] pneumonia 11/2016 Hospitalization History COPD exacerbation - Dr Hartley Attending 12/2016 Hospitalization History Cough- [facility] [place] 04/10/2017 [facility]ization [facility] - Possible Pneumonia 06/2017 Hospitalization History COPD hiatal hernia 08/2017
[2018-01-05 16:27] LABS: BASOPHILS % (AUTO) 0 % (0-10); EOSINOPHILS # (AUTO) 0.3 10^3/uL (0.0-0.3); EOSINOPHILS % (AUTO) 4 % (0-10); HEMATOCRIT 37 % (40-54); HEMOGLOBIN 12.2 G/DL (13.3-17.7); LYMPHOCYTES # (AUTO) 2.2 X 10^3 (1.0-4.0); LYMPHOCYTES % (AUTO) 29 % (12-44); MEAN CORPUSCULAR HEMOGLOBIN 30 PG (25-34); MEAN CORPUSCULAR HGB CONC 33 G/DL (32-36); MEAN CORPUSCULAR VOLUME 90 FL (80-99); MEAN PLATELET VOLUME 9.6 FL (7.4-10.4); MONOCYTES % (AUTO) 14 % (0-12); NEUTROPHILS # (AUTO) 3.9 X 10^3 (1.8-7.8); NEUTROPHILS % (AUTO) 52 % (42-75); PLATELET COUNT 189 10^3/uL (130-400); RED BLOOD COUNT 4.07 10^6/uL (4.35-5.85); RED CELL DISTRIBUTION WIDTH 12.8 % (10.0-14.5); WHITE BLOOD COUNT 7.4 10^3/uL (4.3-11.0)
[2018-01-05 16:33] LABS: INR 1.1 (0.8-1.4); PROTHROMBIN TIME PATIENT 14.5 SEC (12.2-14.7)
--- NOTE | 2018-01-05 16:36 | Diagnostic Imaging Report ---
INDICATION: Chest pain. TECHNIQUE: A frontal chest was obtained at 4:26 PM. COMPARISON: 11/25/2017. FINDINGS: The heart is borderline in size. There is poor inspiration with a somewhat lordotic projection. There is no definite infiltrate. There are chronic appearing increased basilar markings. IMPRESSION: Limited study with poor inspiration and lordotic projection. Borderline heart size with chronic appearing increased basilar markings appearing similar to the prior study. There is no definite new abnormality. Dictated by: Dictated on workstation # [id number]
[2018-01-05 16:43] LABS: ALANINE AMINOTRANSFERASE 40 U/L (0-55); ALBUMIN 4.1 GM/DL (3.2-4.5); ALKALINE PHOSPHATASE 72 U/L (40-136); BILIRUBIN,TOTAL 0.5 MG/DL (0.1-1.0); BUN/CREATININE RATIO 9; CALCIUM 9.3 MG/DL (8.5-10.1); CARBON DIOXIDE 24 MMOL/L (21-32); CHLORIDE 103 MMOL/L (98-107); CREATININE SERUM 0.94 MG/DL (0.60-1.30); GFR ESTIMATED > 60; GLUCOSE 110 MG/DL (70-105); POTASSIUM 4.1 MMOL/L (3.6-5.0); SODIUM 138 MMOL/L (135-145)
[2018-01-05 16:50] LABS: MYOGLOBIN SERUM 89.9 NG/ML (10.0-92.0)
[2018-01-05] MEDS ORDERED: NS 250 ML (IVPB) BAG IV ONE (17:45)
[2018-01-05] MEDS ORDERED: IOHEXOL 350 MG/ML 150 ML (OMNIPAQUE 350) VIAL IV ONE (17:45)
--- NOTE | 2018-01-05 18:56 | Diagnostic Imaging Report ---
PROCEDURE: CT angiography of the chest with contrast. TECHNIQUE: Multiple contiguous axial images were obtained through the chest after uneventful bolus administration of intravenous contrast. 2D reconstructed CTA MIP acquisitions were also performed. INDICATION: Chest pain. COMPARISON: 07/09/2016. FINDINGS: Vasculature: No pulmonary emboli. No CT evidence of pulmonary hypertension or right ventricular strain. Thoracic aorta is normal in caliber. No aortic dissection or pseudoaneurysm. Heart and mediastinum: Visualized thyroid is normal. No supraclavicular, axillary, or intra-thoracic lymphadenopathy. Cardiomegaly. No pericardial effusion. Moderate-sized sliding-type hiatal hernia is unchanged. Pleura: No pleural effusion or pneumothorax. Lungs and airway: No endoluminal lesion in the trachea or central bronchi. No pulmonary mass, nodule or consolidation. There is a small amount of subsegmental atelectasis or scar within the lung bases. Upper abdomen: Diffuse hypoattenuation of the liver is indicative of hepatic steatosis. Calcified splenic granulomas. Musculoskeletal: No concerning osseous lesion. IMPRESSION: 1. No acute cardiopulmonary process. Specifically, no pulmonary emboli or acute aortic syndrome. 2. Hepatic steatosis. 3. Stable moderate-sized hiatal hernia. Dictated by: Dictated on workstation # [id number]
[2018-01-05 20:03] VITALS: BP 129/72
== END 2018-01-05 20:03 | disposition home or self-care (01) ==
LOC: EDUNIT# 15:36 → ER 15:37
DX: J44.1 Chronic obstructive pulmonary disease with (acute) exacerbation (principal); R07.89 Other chest pain; E78.00 Pure hypercholesterolemia, unspecified; E11.9 Type 2 diabetes mellitus without complications; I10 Essential (primary) hypertension; I25.10 Atherosclerotic heart disease of native coronary artery without angina pectoris; J43.9 Emphysema, unspecified; F03.90 Unspecified dementia, unspecified severity, without behavioral disturbance, psychotic disturbance, mood disturbance, and anxiety; F41.9 Anxiety disorder, unspecified; F32.9 Major depressive disorder, single episode, unspecified; M81.0 Age-related osteoporosis without current pathological fracture; K21.9 Gastro-esophageal reflux disease without esophagitis; Z87.442 Personal history of urinary calculi; Z86.010 Personal history of colon polyps; Z85.46 Personal history of malignant neoplasm of prostate; Z80.3 Family history of malignant neoplasm of breast; Z82.49 Family history of ischemic heart disease and other diseases of the circulatory system; Z79.51 Long term (current) use of inhaled steroids; Z79.84 Long term (current) use of oral hypoglycemic drugs; Z87.01 Personal history of pneumonia (recurrent); Z79.02 Long term (current) use of antithrombotics/antiplatelets; Z87.891 Personal history of nicotine dependence; Z85.828 Personal history of other malignant neoplasm of skin; Z90.89 Acquired absence of other organs; Z90.79 Acquired absence of other genital organ(s); Z79.01 Long term (current) use of anticoagulants; Z79.82 Long term (current) use of aspirin; Z88.5 Allergy status to narcotic agent; Z88.6 Allergy status to analgesic agent; Z88.8 Allergy status to other drugs, medicaments and biological substances
CPT/HCPCS: 36415; 71045; 71275; 80053; 83735; 83874; 83880; 84484; 85025; 85379; 85610; 85730; 86141; 87804; 93005; 93041; 94640

== ENCOUNTER 2018-03-06 16:13 | Emergency (ER) | payer MEDICARE, MEDICAID ==
[~2018-03-06] VITALS: Ht 182.9 cm; Wt 90.7 kg
--- OUTSIDE RECORDS SUMMARY | 2018-03-06 16:20 | XMS REPORT | Clinical Summary ---
Author Author [facility] Organization [facility] Address Unknown Phone Unavailable Care Team Providers Care Licensed Nurse Practitioner Name Role Phone PCP Unavailable Allergies Not [...]
--- OUTSIDE RECORDS SUMMARY | 2018-03-06 16:21 | XMS REPORT ---
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 Active 195841245 Problem Mixed hyperlipidemia E78.2 Active 689356103 Problem Type 2 diabetes mellitus with diabetic neuropathy, without long-term current use of insulin E11.40 Active 07308025 Problem Chronic obstructive pulmonary disease, unspecified COPD type J44.9 Active 00851250 Problem Hypoxia R09.02 Active 955995824 Problem Osteoarthritis of both knees, unspecified osteoarthritis type M17.0 Active 874479706 Problem Allergic rhinitis, unspecified allergic rhinitis trigger, unspecified rhinitis seasonality J30.9 Active 52112203 Problem Chronic pain syndrome G89.4 Active 913144173 ALLERGIES No Information ENCOUNTERS Encounter Location Date Diagnosis [facility] [address] [address] Dec, [facility] [id number] [place] [address] 63974- 5675 Dec, [facility] [address] 5[address]11- 8377 05 Dec, 2017 [facility] [id number] [place] [address] 77304- 3202 Dec, [facility] [address] 52307- 7042 28 Nov, 2017 [facility] [address] 55599- 7515 27 Nov, 2017 Encounter for immunization Z23 [facility] [address] 30887- 4196 27 Nov, 2017 [facility] [address] 11200- 8685 Nov, Dermatitis associated with moisture L30.8 ; Pressure injury of buttock, stage 1, unspecified laterality L89.301 and Seasonal allergies J30.2 [facility] [id number] [place] [address] 06804- 2669 Nov, [facility] [address] 95326- 2244 25 Nov, 2017 [facility] [id number] [place] [address] 81181- 1532 17 Nov, 2017 Alzheimers disease with early onset G30.0 [facility] [id number] [place] [address] 75240- 5045 14 Nov, 2017 [facility] [id number] [place] [address] 96922- 3097 12 Nov, 2017 Unspecified urinary incontinence R32 and Unspecified contact dermatitis due to other agents L25.8 [facility] [id number] [place] [address] 81855- 5405 11 Nov, 2017 Chronic pain syndrome G89.4 [facility] [address] 10358- 5758 Nov, Type 2 diabetes mellitus with diabetic neuropathy, without long-term current use of insulin E11.40 [facility] [id number] [place] [address] 03679- 6097 Nov, [facility] [id number] [place] [address] 25740- 8141 Nov, Chronic obstructive pulmonary disease, unspecified COPD type J44.9 and Gastroesophageal reflux disease without esophagitis K21.9 [facility] [id number] [place] [address] 69358- 8539 Oct, [facility] [id number] [place] [address] 26067- 4967 Oct, [facility] [id number] [place] [address] 61742- 6566 Oct, Chronic pain syndrome G89.4 [facility] [id number] [place] [address] 38957- 9084 Oct, Community acquired bacterial pneumonia J15.9 ; Allergic rhinitis, unspecified allergic rhinitis trigger, unspecified rhinitis seasonality J30.9 ; Type 2 diabetes mellitus with diabetic neuropathy, without long-term current use of insulin E11.40 ; Chronic GERD K21.9 and Chronic obstructive pulmonary disease, unspecified COPD type J44.9 [facility] [id number] [place] [address] 33733- 3035 Oct, [facility] [id number] [place] [address] 45346- 1411 Oct, [facility] [id number] [place] [address] 48237- 5034 Oct, [facility] [id number] [place] [address] 55387- 3193 Oct, [facility] [id number] [place] [address] 66751- 4104 Oct, Essential hypertension I10 [facility] [address] [place] [address]- 9225 Oct, Type 2 diabetes mellitus with diabetic neuropathy, without long-term current use of insulin E11.40 ; Chronic obstructive pulmonary disease , unspecified COPD type J44.9 ; Mixed hyperlipidemia E78.2 ; Osteoarthritis of both knees, unspecified osteoarthritis type M17.0 ; 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 and Essential hypertension I10 [facility] [address] 73149- 7917 Oct, [facility] [address] 74490- 4194 Oct, [facility] [address] 73952- 2789 Oct, Yeast dermatitis B37.2 [facility] [address] 07126- 4626 Oct, Chronic pain syndrome G89.4 [facility] [address] 62380- 8731 Sep, [facility] [address] 35874- 5481 Sep, [facility] [address] 64013- 2653 Sep, Alzheimers disease with early 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 and Chronic pain syndrome G89.4 [facility] [address] 89908- 0273 Sep, COPD with acute exacerbation J44.1 [facility] [id number] [place] [address] 67296- 4348 Sep, [facility] [address] 75360- 3876 Sep, [facility] [address] 37185- 9458 Sep, Gastroesophageal reflux disease without esophagitis K21.9 [facility] [address] [place] [address]- 8984 Aug, [facility] [id number] [place] [address] 25922- 9465 Aug, [facility] [id number] [place] [address] 86666- 0319 Aug, 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 ; Hospital discharge follow-up Z09 ; Chronic obstructive pulmonary disease, unspecified COPD type J44.9 and Chronic GERD K21.9 [facility] [id number] [place] [address] 74964- 5981 Aug, Chronic pain syndrome G89.4 [facility] [id number] [place] [address] 03794- 6640 Aug, [facility] [address] 49158- 8199 Aug, [facility] [id number] [place] [address] 76337- 2269 Aug, Chronic pain syndrome G89.4 and Alzheimers disease with early onset G30.0 [facility] [id number] [place] [address] 37798- 9801 18 Aug, 2017 Type 2 diabetes mellitus with diabetic neuropathy, without long-term current use of insulin E11.40 ; Chronic obstructive pulmonary disease , unspecified COPD type J44.9 ; Chronic GERD K21.9 and 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 [facility] [id number] [place] [address] 90365- 3610 Aug, [facility] [id number] [place] [address] 87563- 1053 Aug, Essential hypertension I10 and Cough R05 [facility] [id number] [place] [address] 26716- 0749 Aug, [facility] [id number] [place] [address] 49510- 3302 Aug, [facility] [address] [address]- 6528 Aug, [facility] [id number] [place] [address] 10881- 3594 Aug, Chronic pain syndrome G89.4 [facility] [id number] [place] [address] 71701- 5913 Aug, [facility] [id number] [place] [address] 70697- 8655 Aug, [facility] [id number] [place] [address] 19900- 6060 July, Gastroesophageal reflux disease without esophagitis K21.9 [facility] [id number] [place] [address] 47688- 1360 July, [facility] [id number] [place] [address] 59912- 9158 July, [facility] [id number] [place] [address] 22400- 9188 July, [facility] [id number] [place] [address] 61489- 6520 July, Essential hypertension I10 and Chronic pain syndrome G89.4 [facility] [id number] [place] [address] 19182- 2236 July, Gastroesophageal reflux disease without esophagitis K21.9 [facility] [id number] [place] [address] 50765- 3181 July, Alzheimers disease with early 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 [facility] [id number] [place] [address] 77716- 1655 July, Chronic obstructive pulmonary disease, unspecified COPD type J44.9 ; Nocturnal cough R05 ; 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 and Recurrent major depressive disorder, in partial 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 [facility] [id number] [place] [address] 56407- 8868 July, [facility] [id number] [place] [address] 23737- 6144 July, Type 2 diabetes mellitus with diabetic neuropathy, without long-term current use of insulin E11.40 [facility] [address] 19017- 4881 July, Nocturnal hypoxemia G47.34 ; Chronic obstructive pulmonary disease, unspecified COPD type J44.9 and Nocturnal cough R05 [facility] [address] 20836- 9714 July, [facility] [address] 86383- 5280 July, [facility] [address] 07940- 6076 July, [facility] [address] 35078- 7676 Jun, Chronic pain syndrome G89.4 [facility] [id number] [place] [address] 89337- 6249 Jun, [facility] [address] 15155- 8261 Jun, [facility] [id number] [place] [address] 58217- 8493 Jun, Alzheimers disease with early 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 [facility] [id number] [place] [address] 51103- 5696 Jun, [facility] [id number] [place] [address] 91633- 5363 Jun, Gastroesophageal reflux disease without esophagitis K21.9 [facility] [address] 00768- 5291 Jun, Allergic rhinitis, unspecified allergic rhinitis trigger, unspecified rhinitis seasonality J30.9 [facility] [address] 96833- 0263 Jun, Chronic pain syndrome G89.4 [facility] [id number] [place] [address] 39763- 2689 May, [facility] [address] 30818- 0101 May, COPD with acute exacerbation J44.1 [facility] [address] 42728- 2385 May, Type 2 diabetes mellitus with diabetic neuropathy, without long-term current use of insulin E11.40 ; COPD with acute exacerbation J44.1 ; Hypoxia R09.02 ; Chronic pain syndrome G89.4 ; Yeast dermatitis B37.2 ; 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 and 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 [facility] [address] 53940- 8282 May, [facility] [address] 24789- 9033 May, Chronic pain syndrome G89.4 [facility] [id number] [place] [address] 31475- 6574 May, [facility] [address] 87234- 3046 May, [facility] [id number] [place] [address] 68991- 7263 May, Mixed hyperlipidemia E78.2 [facility] [address] 75689- 5938 May, Chronic pain syndrome G89.4 [facility] [address] 91596- 9801 May, Anxiety F41.9 and Chronic pain syndrome G89.4 [facility] [id number] [place] [address] 07117- 1576 Mar, [facility] [id number]- 2546 Mar, [facility] [address], [place] [address]- 5784 Mar, [facility] [id number] [place] [address] 30661- 9724 Mar, [facility] [id number] [place] [address] 41228- 6027 Mar, [facility] [id number] [place] [address] 88430- 3892 Mar, Anxiety F41.9 and Chronic pain syndrome G89.4 [facility] [id number] [place] [address] 57892- 8700 Mar, Medicare annual wellness visit, initial Z00.00 [...] K44.9 and Actinic keratosis L57.0 [facility] [address] [address]- 7729 Mar, [facility] [address], [place] [address]- 1058 Mar, Chronic pain syndrome G89.4 [facility] [address] [address]- 1802 Feb, [facility] [id number] [place] [address] 95979- 1841 Feb, Chronic pain syndrome G89.4 [facility] [id number] [place] [address] 89713- 9908 Feb, [facility] [address] 26605- 0496 Feb, [facility] [address] 474222- 4196 Feb, Anxiety F41.9 [facility] [address] 39977- 1663 Feb, [facility] [address] 32630- 0939 Feb, Chronic pain syndrome G89.4 [facility] [address] 18606- 6198 Jan, Essential hypertension I10 [facility] [address] 29896- 2179 Jan, Chronic pain syndrome G89.4 [facility] [address] 22262- 8604 Jan, [facility] [address] 77660- 4271 Jan, Anxiety F41.9 [facility] [address] 35253- 1428 Jan, Encounter for immunization Z23 and Community acquired pneumonia, unspecified laterality J18.9 [facility] [address] 13034- 7814 Jan, Type 2 diabetes mellitus with diabetic neuropathy, without long-term current use of insulin E11.40 [facility] [id number] [place] [address] 66832- 2213 Dec, Anxiety F41.9 and Chronic pain syndrome G89.4 [facility] [address] 36160- 9509 Dec, Chronic pain syndrome G89.4 and Essential hypertension I10 [facility] [address] 46418- 0766 16 Dec, 2016 [facility] [id number] [place] [address] 62717- 2592 Dec, Anxiety F41.9 [facility] [id number] [place] [address] 46516 2543 10 Dec, 2016 [facility] [id number] [place] [address] 90057- 8609 Dec, Type 2 diabetes mellitus with diabetic neuropathy, without long-term current use of insulin E11.40 ; Lactic acidosis E87.2 ; Chronic obstructive pulmonary disease, unspecified COPD type J44.9 and Encounter for immunization Z23 [facility] [id number] [place] [address] 06406- 1302 Dec, Chronic pain syndrome G89.4 [facility] [id number] [place] [address] 89433- 8055 28 Nov, 2016 [facility] [id number] [place] [address] 67315 2547 Nov, Chronic pain syndrome G89.4 [facility] [id number] [place] [address] 56995 2546 Nov, [facility] [id number] [place] [address] 15214- 2547 Nov, [facility] [id number] [place] [address] 16717 2545 15 Nov, 2016 Anxiety F41.9 [facility] [id number] [place] [address] 02285- 2541 11 Nov, 2016 Anxiety F41.9 [facility] [id number] [place] [address] 71387 2544 08 Nov, 2016 [facility] [id number] [place] [address] 78297- 2544 05 Nov, 2016 [facility] [id number] [place] [address] 12722- 7478 Nov, [facility] [address], [place] [address]- 8168 Oct, [facility] [id number] [place] [address] 64283- 3781 Oct, [facility] [id number] [place] [address] 39082- 7544 Oct, [facility] [id number] [place] [address] 27736- 6302 Oct, Essential hypertension I10 and Chronic pain syndrome G89.4 [facility] [id number] [place] [address] 73328- 9303 Oct, Anxiety F41.9 [facility] [id number] [place] [address] 09275- 9716 Oct, [facility] [id number] [place] [address] 22704- 2981 Oct, Chronic pain syndrome G89.4 [facility] [id number] [place] [address] 88175 -9718 Oct, Sore throat J02.9 and Acute nasopharyngitis (common cold) J00 [facility] [id number] [place] [address] 24398- 9191 Sep, [facility] [id number] [place] [address] 48638- 9531 Sep, COPD exacerbation J44.1 [facility] [id number] [place] [address] 75614- 2427 Sep, Chronic pain syndrome G89.4 [facility] [id number] [place] [address] 81711- 8841 Sep, Essential hypertension I10 [facility] [id number] [place] [address] 49167- 2719 Sep, [facility] [id number] [place] [address] 88378- 8718 Sep, [facility] [id number] [place] [address] 02314- 5622 Sep, Anxiety F41.9 [facility] [id number] [place] [address] 15696- 2118 05 Sep, 2016 Chronic pain syndrome G89.4 [facility] [id number] [place] [address] 03872- 1471 Sep, [facility] [id number] [place] [address] 49314- 5881 Aug, Acute seasonal allergic rhinitis, unspecified trigger J30.2 ; Hiatal hernia K44.9 and Chronic pain syndrome G89.4 [facility] [id number] [place] [address] 57978- 8003 Aug, [facility] [id number] [place] [address] 41462- 3371 Aug, [facility] [id number] [place] [address] 58714- 3230 Aug, Chronic obstructive pulmonary disease, unspecified COPD type J44.9 [facility] [id number] [place] [address] 11153- 3858 Aug, Anxiety F41.9 [facility] [id number] [place] [address] 64898- 8154 08 Aug, 2016 Chronic pain syndrome G89.4 [facility] [id number] [place] [address] 71539- 0636 Aug, Hiatal hernia K44.9 and Actinic keratosis L57.0 [facility] [id number] [place] [address] 37419- 0465 Aug, [facility] [id number] [place] [address] 82608- 1093 06 Aug, 2016 Anxiety F41.9 [facility] [address] [place] [address]- 4905 July, [facility] [id number] [place] [address] 09365- 3884 July, Hiatal hernia K44.9 [facility] [id number] [place] [address] 89612- 7513 July, [facility] [id number] [place] [address] 74503- 1220 July, Anxiety F41.9 and Chronic pain syndrome G89.4 [facility] [id number] [place] [address] 28584- 2012 July, [facility] [id number] [place] [address] 66354- 0459 Jun, Chronic pain syndrome G89.4 [facility] [id number] [place] [address] 35827- 9948 Jun, Chronic pain syndrome G89.4 [facility] [id number] [place] [address] 71655- 3658 Jun, [facility] [id number] [place] [address] 32878- 6798 Jun, Anxiety F41.9 [facility] [id number] [place] [address] 42480- 1552 Jun, Allergic rhinitis, unspecified allergic rhinitis trigger, unspecified rhinitis seasonality J30.9 [facility] [id number] [place] [address] [phone]- [phone] Jun, [facility] [id number] [place] [address] 20166- 7336 May, Chronic pain syndrome G89.4 [facility] [id number] [place] [address] 11526- 5410 May, [facility] [id number] [place] [address] 97501- 0790 May, [place] [id number] [place] [address] 18632- 5584 May, Anxiety F41.9 [place] [address] 11632- 6229 May, Type 2 diabetes mellitus with diabetic [...] and Chronic pain syndrome G89.4 [facility] [id number] [place] [address] 08050- 7023 May, Essential hypertension I10 ; Type 2 diabetes mellitus with diabetic neuropathy, without long-term current use of insulin E11.40 ; Mixed hyperlipidemia E78.2 ; Chronic obstructive pulmonary disease, unspecified COPD type J44.9 and Chronic GERD K21.9 [facility] [id number] [place] [address] 73482- 1504 May, [facility] [id number] [place] [address] 09314- 0485 May, [facility] [id number] [place] [address] 46107- 6573 May, Type 2 diabetes mellitus with diabetic neuropathy, without long-term current use of insulin E11.40 [facility] [id number] [place] [address] 08913- 4673 May, Dementia without behavioral disturbance, unspecified dementia type F03.90 [facility] [address] [place] [id number] [place] [address] 54603- 0994 May, Type 2 diabetes mellitus with diabetic neuropathy, without long-term current use of insulin E11.40 ; Essential hypertension I10 ; Mixed hyperlipidemia E78.2 ; Chronic obstructive pulmonary disease, unspecified COPD type J44.9 ; Chronic GERD K21.9 and Osteoarthritis of both knees, unspecified osteoarthritis type M17.0 [facility] [address] [address] May, [facility] [id number] [place] [address] 61709- 8762 May, [facility] [id number] [place] [address] 83110- 9878 May, Anxiety F41.9 and Unspecified symptoms and signs involving cognitive functions and awareness R41.9 [facility] [address] [id number] [place] [address] 13898- 5888 May, [facility] [address] [id number] [place] [address] 61035- 3992 May, Type 2 diabetes mellitus with diabetic neuropathy, without long-term current use of insulin E11.40 ; Anxiety F41.9 and Chronic obstructive pulmonary disease, unspecified COPD type J44.9 [facility] [id number] [place] [address] 52872- 1301 May, [facility] [address] [address] [id number] [place] [address] 19387- 9737 May, [facility] [id number] [place] [address] 86390- 1255 May, [facility] [id number] [place] [address] 54867- 1220 May, Chronic obstructive pulmonary disease, unspecified COPD type J44.9 [facility] [address] [address] Mar, [facility] [id number] [place] [address] 01445- 6917 Mar, Arthritis of both knees M19.90 [facility] [id number] [place] [address] 34648- 6133 Mar, Type 2 diabetes mellitus with diabetic neuropathy, without long-term current use of insulin E11.40 [facility] [id number] [place] [address] 26663- 3097 Mar, [facility] [address] [address]- 9422 Mar, Neck pain M54.2 and Weakness generalized R53.1 [facility] [address] 35794- 0660 Mar, [facility] [address] [address] [id number] [place] [address] 01210- 7179 Mar, Cervicalgia M54.2 and Impacted cerumen of both ears H61.23 [facility] [address] 90194- 7359 Mar, [facility] [address] [address] [id number] [place] [address] 20684- 0791 Mar, Type 2 diabetes mellitus with diabetic neuropathy, without long-term current use of insulin E11.40 [facility] [address] [address] [id number] [place] [address] 48478- 1924 Feb, [facility] [address] [id number] [place] [address] 06678- 4824 Feb, Hypoxia R09.02 [facility] [address] [address] [id number] [place] [address] 68010- 0181 Feb, [facility] [id number] [place] [address] 45535- 7728 Feb, [facility] [address] [address] [id number] [place] [address] 75334- 3809 Feb, [facility] [id number] [place] [address] 18548- 3525 Feb, Type 2 diabetes mellitus with diabetic neuropathy, without long-term current use of insulin E11.40 [facility] [address] [address] [id number] [place] [address] 95309- 1705 Feb, Osteoarthritis of both knees, unspecified osteoarthritis type M17.0 [facility] [id number] [place] [address] 53063- 7618 Feb, [facility] [address] [id number] [place] [address] 14610- 4211 Feb, [facility] [id number] [place] [address] 84809- 3863 Feb, [facility] [id number] [place] [address] 14457- 2841 Jan, [facility] [id number] [place] [address] 57093- 8548 Jan, [facility] [address] [address] [id number] [place] [address] 59785- 0931 Jan, [facility] [address] [address] [id number] [place] [address] 44776- 5834 Jan, [facility] [address] [address] [id number] [place] [address] 97836- 8151 Jan, Tinea pedis of both feet B35.3 [facility] [address] [id number] [place] [address] 23066- 5580 Jan, Type 2 diabetes mellitus with diabetic [...] and Encounter for immunization Z23 [facility] [id number] [place] [address] 24333- 1720 Jan, [facility] [address] [place] [address] [id number] [place] [address] 28663- 9157 Jan, [facility] [address] [address] 4527 Dec, [facility] [id number] [place] [address] 30194- 7875 Dec, [facility] [address], [place] [address] Dec, Unspecified asthma with (acute) exacerbation J45.901 and Chronic obstructive pulmonary disease with (acute) exacerbation J44.1 [facility] [address], [place] [address] 0412 Dec, Arthritis of both knees M19.90 and Acute medial meniscus tear, right, initial encounter S83.241A [facility] [id number] [place] [address] 03387- 1350 Dec, [facility] [id number] [place] [address] 70582- 5604 Dec, [facility] [id number] [place] [address] 22111- 9068 Dec, [facility] [id number] [place] [address] 95489- 1286 Dec, [facility] [address], [place] [address] 7173 Dec, History of pneumonia Z87.01 [facility] [id number] [place] [address] 05643- 9787 Dec, [facility] [address] [address]- 6857 Dec, [facility] [id number] [place] [address] 26288- 6488 05 Dec, 2015 [facility] [address], [place] [address]- 8154 Dec, [facility] [id number] [place] [address] 78122- 7333 Dec, [facility] [id number] [address]- 7600 Dec, [facility] [address] [address]- 9418 Nov, Cough R05 and Pneumonia due to infectious organism, unspecified laterality, unspecified part of lung J18.9 [facility] [address] [address]- 3396 Nov, [facility] [address] [place] [id number] [address]- 0882 Nov, Type 2 diabetes mellitus with diabetic [...] trigger, unspecified rhinitis seasonality J30.9 [facility] [address] [place] [id number] [address]- 6965 Nov, IMMUNIZATIONS No Known Immunizations SOCIAL HISTORY Never Assessed REASON FOR VISIT [facility] 01/27 PLAN OF CARE VITAL SIGNS MEDICATIONS Unknown Medications RESULTS No Results PROCEDURES No Known procedures INSTRUCTIONS MEDICATIONS ADMINISTERED No Known Medications MEDICAL (GENERAL) HISTORY Type Description Date Medical History hypertension Medical History chronic obstructive pulmonary disease (COPD)-wears 2L O2 per [place], uses [place] for home O2 Medical History [...] TIA, [facility] 2014 Hospitalization History COPD exacerbation--[facility] 12/27/2015 [facility]/2016 [facility] History [facility] pneumonia 11/2016 Hospitalization History COPD exacerbation - Dr Hartley Attending 12/2016 Hospitalization History Cough- [facility] [place] 04/10/2017 Hospitalization History [facility] - Possible Pneumonia 06/2017 Hospitalization History COPD hiatal hernia 08/2017
--- OUTSIDE RECORDS SUMMARY | 2018-03-06 16:53 | XMS REPORT ---
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 Active 415804688 Problem Mixed hyperlipidemia E78.2 Active 742773321 Problem Type 2 diabetes mellitus with diabetic neuropathy, without long-term current use of insulin E11.40 Active 54574064 Problem Chronic obstructive pulmonary disease, unspecified COPD type J44.9 Active 58901199 Problem Hypoxia R09.02 Active 980939129 Problem Osteoarthritis of both knees, unspecified osteoarthritis type M17.0 Active 689470160 Problem Allergic rhinitis, unspecified allergic rhinitis trigger, unspecified rhinitis seasonality J30.9 Active 00347627 Problem Chronic pain syndrome G89.4 Active 814875661 ALLERGIES No Information ENCOUNTERS Encounter Location Date Diagnosis [facility] [address] [address] Dec, [facility] [id number] [place] [address] 30595- 7611 Dec, [facility] [address] 73185- 3275 Dec, [facility] [address] 94214- 0745 Nov, [facility] [address] 19635- 8461 Nov, Encounter for immunization Z23 [facility] [address] 91421- 0180 Nov, [facility] [address] 49083- 5151 Nov, Dermatitis associated with moisture L30.8 ; Pressure injury of buttock, stage 1, unspecified laterality L89.301 and Seasonal allergies J30.2 [facility] [address] 86518- 1002 Nov, [facility] [address] 59996- 4572 Nov, [facility] [address] 91310- 5172 17 Nov, 2017 Alzheimers disease with early onset G30.0 [facility] [address] 17124- 0336 14 Nov, 2017 [facility] [address] 72358- 1262 12 Nov, 2017 Unspecified urinary incontinence R32 and Unspecified contact dermatitis due to other agents L25.8 [facility] [address] 34480- 1192 11 Nov, 2017 Chronic pain syndrome G89.4 [facility] [address] 00391- 4492 10 Nov, 2017 Type 2 diabetes mellitus with diabetic neuropathy, without long-term current use of insulin E11.40 [facility] [id number] [place] [address] 85508- 8796 Nov, [facility] [address] 90140- 5540 Nov, Chronic obstructive pulmonary disease, unspecified COPD type J44.9 and Gastroesophageal reflux disease without esophagitis K21.9 [facility] [address] 66385- 6897 Oct, [facility] [id number] [place] [address] 38706- 4279 Oct, [facility] [address] 84097- 5415 Oct, Chronic pain syndrome G89.4 [facility] [id number] [place] [address] 96362- 8736 Oct, Community acquired bacterial pneumonia J15.9 ; Allergic rhinitis, unspecified allergic rhinitis trigger, unspecified rhinitis seasonality J30.9 ; Type 2 diabetes mellitus with diabetic neuropathy, without long-term current use of insulin E11.40 ; Chronic GERD K21.9 and Chronic obstructive pulmonary disease, unspecified COPD type J44.9 [facility] [id number] [place] [address] 90464- 7738 Oct, [facility] [id number] [place] [address] 52816- 2373 Oct, [facility] [id number] [place] [address] 74300- 6774 Oct, [facility] [id number] [place] [address] 81578- 7176 Oct, [facility] [id number] [place] [address] 71103- 1600 Oct, Essential hypertension I10 [facility] [id number] [place] [address] 34533- 6871 Oct, Type 2 diabetes mellitus with diabetic neuropathy, without long-term current use of insulin E11.40 ; Chronic obstructive pulmonary disease , unspecified COPD type J44.9 ; Mixed hyperlipidemia E78.2 ; Osteoarthritis of both knees, unspecified osteoarthritis type M17.0 ; 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 and Essential hypertension I10 [facility] [id number] [place] [address] 04739- 5759 Oct, [facility] [address] 29814- 4023 Oct, [facility] [address] 17834- 9973 Oct, Yeast dermatitis B37.2 [facility] [address] 14342- 6925 Oct, Chronic pain syndrome G89.4 [facility] [id number] [place] [address] 55451- 7612 Sep, [facility] [address] 56038- 4951 Sep, [facility] [id number] [place] [address] 94934- 6840 Sep, Alzheimers disease with early onset G30.0 and Chronic pain syndrome G89.4 [facility] [id number] [place] [address] 93661- 5419 Sep, COPD with acute exacerbation J44.1 [facility] [id number] [place] [address] 94926- 5475 Sep, [facility] [id number] [place] [address] 85633- 9621 Sep, [facility] [address] 72375- 6312 Sep, Gastroesophageal reflux disease without esophagitis K21.9 [facility] [id number] [place] [address] 90887- 0643 Aug, [facility] [address] [place] [address] 8074 Aug, [facility] [id number] [place] [address] 55445- 4925 Aug, 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 ; Hospital discharge follow-up Z09 ; Chronic obstructive pulmonary disease, unspecified COPD type J44.9 and Chronic GERD K21.9 [facility] [address] 81343- 7345 Aug, Chronic pain syndrome G89.4 [facility] [id number] [place] [address] 05654- 4238 Aug, [facility] [id number] [place] [address] 15686- 7839 Aug, [facility] [id number] [place] [address] 61257- 1326 Aug, Chronic pain syndrome G89.4 and Alzheimers disease with early onset G30.0 [facility] [id number] [place] [address] 57902- 6862 18 Aug, 2017 Type 2 diabetes mellitus with diabetic neuropathy, without long-term current use of insulin E11.40 ; Chronic obstructive pulmonary disease , unspecified COPD type J44.9 ; Chronic GERD K21.9 and 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 [facility] [id number] [place] [address] 01208- 5605 Aug, [facility] [id number] [place] [address] 34108- 0377 Aug, Essential hypertension I10 and Cough R05 [facility] [id number] [place] [address] 52811- 0641 Aug, [facility] [id number] [place] [address] 71560- 9810 12 Aug, 2017 [facility] [id number] [place] [address] 47082- 5716 07 Aug, 2017 [facility] [address] [address] 4000 Aug, Chronic pain syndrome G89.4 [facility] [id number] [address]- 6097 Aug, [facility] [address] [address]- 0638 Aug, [facility] [id number] [place] [address] 15978- 3625 July, Gastroesophageal reflux disease without esophagitis K21.9 [facility] [id number] [place] [address] 45829- 4109 July, [facility] [id number] [place] [address] 69166- 1838 July, [facility] [id number] [place] [address] 39685- 2712 July, [facility] [id number] [place] [address] 61209- 5517 July, Essential hypertension I10 and Chronic pain syndrome G89.4 [facility] [id number] [place] [address] 87191- 5717 July, Gastroesophageal reflux disease without esophagitis K21.9 [facility] [address] [address]- 3407 July, Alzheimers disease with early onset G30.0 [facility] [id number] [address]- 6428 July, Chronic obstructive pulmonary disease, unspecified COPD type J44.9 ; Nocturnal cough R05 ; 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 and Recurrent major depressive disorder, in partial 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 [facility] [address] [address]- 3095 July, [facility] [id number] [place] [address] 07650- 1656 July, Type 2 diabetes mellitus with diabetic neuropathy, without long-term current use of insulin E11.40 [facility] [id number] [place] [address] 70414- 8220 July, Nocturnal hypoxemia G47.34 ; Chronic obstructive pulmonary disease, unspecified COPD type J44.9 and Nocturnal cough R05 [facility] [id number] [place] [address] 88935- 0845 July, [facility] [address] 80945- 2888 July, [facility] [address] 43093- 2913 July, [facility] [address] 94345- 0325 Jun, Chronic pain syndrome G89.4 [facility] [address] 67234- 3857 Jun, [facility] [address] 58640- 7658 Jun, [facility] [address] 20194- 9301 Jun, Alzheimers disease with early onset G30.0 [facility] [id number] [place] [address] 94969- 1460 Jun, [facility] [id number] [place] [address] 09110- 4462 Jun, Gastroesophageal reflux disease without esophagitis K21.9 [facility] [id number] [place] [address] 42144- 4229 Jun, Allergic rhinitis, unspecified allergic rhinitis trigger, unspecified rhinitis seasonality J30.9 [facility] [id number] [place] [address] 69621- 8927 Jun, Chronic pain syndrome G89.4 [facility] [address] 36316- 1469 May, [facility] [address] 78821- 4925 May, COPD with acute exacerbation J44.1 [facility] [id number]- 2078 14 May, 2017 Type 2 diabetes mellitus with diabetic neuropathy, without long-term current use of insulin E11.40 ; COPD with acute exacerbation J44.1 ; Hypoxia R09.02 ; Chronic pain syndrome G89.4 ; Yeast dermatitis B37.2 ; Alzheimers disease with early onset G30.0 and 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 [facility] [address] 59031- 1786 May, [facility] [address] 88597- 8162 May, Chronic pain syndrome G89.4 [facility] [address] 74380- 6540 May, [facility] [address] 03239- 8065 May, [facility] [address] 78344- 0620 May, Mixed hyperlipidemia E78.2 [facility] [address] 23548- 0100 May, Chronic pain syndrome G89.4 [facility] [address] 56164- 7248 May, Anxiety F41.9 and Chronic pain syndrome G89.4 [facility] [address] 58954- 6588 Mar, [facility] [address] 81049- 2286 Mar, [facility] [address]- 2546 Mar, [facility] [id number] [place] [address] 23871- 2274 Mar, [facility] [id number] [place] [address] 67941- 7761 Mar, [facility] [id number] [place] [address] 66691- 4078 Mar, Anxiety F41.9 and Chronic pain syndrome G89.4 [facility] [id number] [place] [address] 50386- 2292 Mar, Medicare annual wellness visit, initial Z00.00 [...] Hiatal hernia K44.9 and Actinic keratosis L57.0 [facility] [address] [address]- 4996 Mar, [facility] [id number] [place] [address] 15518- 4101 Mar, Chronic pain syndrome G89.4 [facility] [address] [address]- 1636 Feb, [facility] [id number] [place] [address] 38232- 9820 Feb, Chronic pain syndrome G89.4 [facility] [id number] [place] [address] 88798- 9648 Feb, [facility] [id number] [place] [address] 87205- 6515 Feb, [facility] [id number] [place] [address] 73634- 3574 Feb, Anxiety F41.9 [facility] [address] 29965- 4543 Feb, [facility] [address] 09113- 6548 Feb, Chronic pain syndrome G89.4 [facility] [address] 20740- 6260 Jan, Essential hypertension I10 [facility] [address] 72694- 7910 Jan, Chronic pain syndrome G89.4 [facility] [address] 80488- 6428 Jan, [facility] [address] 85848- 7630 Jan, Anxiety F41.9 [facility] [address] 98767- 5875 Jan, Encounter for immunization Z23 and Community acquired pneumonia, unspecified laterality J18.9 [facility] [address] 30978- 4234 Jan, Type 2 diabetes mellitus with diabetic neuropathy, without long-term current use of insulin E11.40 [facility] [id number] [place] [address] 29117- 0218 Dec, Anxiety F41.9 and Chronic pain syndrome G89.4 [facility] [address] 67898- 8695 Dec, Chronic pain syndrome G89.4 and Essential hypertension I10 [facility] [address] 89059- 1142 Dec, [facility] [address] 55796- 3380 Dec, Anxiety F41.9 [facility] [id number] [place] [address] 18650 2546 Dec, [facility] [id number] [place] [address] 90300 2546 Dec, Type 2 diabetes mellitus with diabetic neuropathy, without long-term current use of insulin E11.40 ; Lactic acidosis E87.2 ; Chronic obstructive pulmonary disease, unspecified COPD type J44.9 and Encounter for immunization Z23 [facility] [id number] [place] [address] 08142- 7198 Dec, Chronic pain syndrome G89.4 [facility] [id number] [place] [address] 93952 2546 Nov, [facility] [id number] [place] [address] 56368 2548 Nov, Chronic pain syndrome G89.4 [facility] [id number] [place] [address] 39583 2546 Nov, [facility] [id number] [place] [address] 38869 2546 Nov, [facility] [id number] [place] [address] 16653 2545 15 Nov, 2016 Anxiety F41.9 [facility] [id number] [place] [address] 67060 2546 11 Nov, 2016 Anxiety F41.9 [facility] [id number] [place] [address] 51438 2546 08 Nov, 2016 [facility] [id number] [place] [address] 57825 2546 05 Nov, 2016 [facility] [id number] [place] [address] 87552 2546 Nov, [facility] [id number] [place] [address] 85802- 9985 Oct, [facility] [address] [address]- 9057 Oct, [facility] [id number] [place] [address] 50729- 7447 Oct, [facility] [id number] [place] [address] 24700- 8853 Oct, Essential hypertension I10 and Chronic pain syndrome G89.4 [facility] [id number] [place] [address] 58565- 9629 Oct, Anxiety F41.9 [facility] [id number] [place] [address] 26411- 9814 Oct, [facility] [id number] [place] [address] 90975- 6779 Oct, Chronic pain syndrome G89.4 [facility] [address] [place] [address] 44558 -7455 Oct, Sore throat J02.9 and Acute nasopharyngitis (common cold) J00 [facility] [id number] [place] [address] 31694- 2321 Sep, [facility] [id number] [place] [address] 06536- 5645 Sep, COPD exacerbation J44.1 [facility] [id number] [place] [address] 33073- 7030 Sep, Chronic pain syndrome G89.4 [facility] [address] [address]- 8013 Sep, Essential hypertension I10 [facility] [id number] [place] [address] 18362- 6910 Sep, [facility] [id number] [place] [address] 05506- 1291 Sep, [facility] [id number] [place] [address] 19248- 9960 Sep, Anxiety F41.9 [facility] [id number] [place] [address] 48178- 8122 05 Sep, 2016 Chronic pain syndrome G89.4 [facility] [id number] [place] [address] 25239- 8509 Sep, [facility] [id number] [place] [address] 33679- 2380 Aug, Acute seasonal allergic rhinitis, unspecified trigger J30.2 ; Hiatal hernia K44.9 and Chronic pain syndrome G89.4 [facility] [id number] [place] [address] 29809- 8900 Aug, [facility] [id number] [place] [address] 64135- 5320 Aug, [facility] [id number] [place] [address] 33060- 8674 Aug, Chronic obstructive pulmonary disease, unspecified COPD type J44.9 [facility] [id number] [place] [address] 60577- 4407 Aug, Anxiety F41.9 [facility] [id number] [place] [address] 60280- 0784 Aug, Chronic pain syndrome G89.4 [facility] [id number] [place] [address] 94708- 7869 Aug, Hiatal hernia K44.9 and Actinic keratosis L57.0 [facility] [id number] [place] [address] 47252- 6539 Aug, [facility] [id number] [place] [address] 64096- 2911 Aug, Anxiety F41.9 [facility] [id number] [place] [address] 40074- 7546 July, [facility] [id number] [place] [address] 65630- 1870 July, Hiatal hernia K44.9 [facility] [address] 05235- 8592 July, [facility] [address] 28335- 2839 July, Anxiety F41.9 and Chronic pain syndrome G89.4 [facility] [address] 27568- 0063 July, [facility] [id number] [place] [address] 16040- 6051 Jun, Chronic pain syndrome G89.4 [facility] [id number] [place] [address] 38400- 1578 Jun, Chronic pain syndrome G89.4 [facility] [address] 15269- 6226 Jun, [facility] [address] 98539- 0502 Jun, Anxiety F41.9 [facility] [address] 55616- 3080 Jun, Allergic rhinitis, unspecified allergic rhinitis trigger, unspecified rhinitis seasonality J30.9 [facility] [id number] [place] [address] 52997- 8170 Jun, [facility] [id number] [place] [address] 28795- 6602 May, Chronic pain syndrome G89.4 [facility] [id number] [place] [address] 64280- 0598 May, [facility] [address] 18465- 4575 May, [facility] [id number] [place] [address] 52996- 7766 May, Anxiety F41.9 [facility] [id number] [place] [address] 31304- 1809 May, Type 2 diabetes mellitus with diabetic [...] and Chronic pain syndrome G89.4 [facility] [id number] [place] [address] 81075- 6048 May, Essential hypertension I10 ; Type 2 diabetes mellitus with diabetic neuropathy, without long-term current use of insulin E11.40 ; Mixed hyperlipidemia E78.2 ; Chronic obstructive pulmonary disease, unspecified COPD type J44.9 and Chronic GERD K21.9 [facility] [id number] [place] [address] 08701- 3668 May, [facility] [id number] [place] [address] 09921- 0195 May, [facility] [id number] [place] [address] 69705- 8045 May, Type 2 diabetes mellitus with diabetic neuropathy, without long-term current use of insulin E11.40 [facility] [id number] [place] [address] 17177- 0575 May, Dementia without behavioral disturbance, unspecified dementia type F03.90 [facility] [id number] [place] [address] 24415- 5535 May, Type 2 diabetes mellitus with diabetic neuropathy, without long-term current use of insulin E11.40 ; Essential hypertension I10 ; Mixed hyperlipidemia E78.2 ; Chronic obstructive pulmonary disease, unspecified COPD type J44.9 ; Chronic GERD K21.9 and Osteoarthritis of both knees, unspecified osteoarthritis type M17.0 [facility] [facility] [id number] [place] [address] 39185- [phone] May, [facility] [id number] [place] [address] [phone]- 1891 May, [place] [id number] [place] [address] 67779- 7404 May, Anxiety F41.9 and Unspecified symptoms and signs involving cognitive functions and awareness R41.9 [facility] [id number] [place] [address] 59255- 8387 May, [facility] [id number] [place] [address] 53251- 4478 May, Type 2 diabetes mellitus with diabetic neuropathy, without long-term current use of insulin E11.40 ; Anxiety F41.9 and Chronic obstructive pulmonary disease, unspecified COPD type J44.9 [facility] [id number] [place] [address] 80713- 8541 May, [facility] [id number] [place] [address] 63275- 9694 May, [facility] [id number] [place] [address] 57046- 3871 May, [facility] [address] [id number] [place] [address] 98910- 0107 May, Chronic obstructive pulmonary disease, unspecified COPD type J44.9 [place] [id number] [place] [address] 64036- 7488 Mar, [facility] [place] [id number] [place] [address] 05416- 8792 Mar, Arthritis of both knees M19.90 [facility] [place] [id number] [place] [address] 10771- 0070 Mar, Type 2 diabetes mellitus with diabetic neuropathy, without long-term current use of insulin E11.40 [place] [id number] [place] [address] 55424- 2261 Mar, [facility] [id number] [place] [address] 26626- 7681 Mar, Neck pain M54.2 and Weakness generalized R53.1 [place] [id number] [place] [address] 52424- 2458 Mar, [place] [address] 76117- 3752 Mar, Cervicalgia M54.2 and Impacted cerumen of both ears H61.23 [place] [address] 89547- 5899 Mar, [place] [address] 33735- 3190 Mar, Type 2 diabetes mellitus with diabetic neuropathy, without long-term current use of insulin E11.40 [facility] [place] [id number] [place] [address] 52448- 3184 Feb, [facility] [place] [id number] [place] [address] 61414- 0835 Feb, Hypoxia R09.02 [place] [id number] [place] [address] 58383- 1953 Feb, [facility] [place] [id number] [place] [address] 45529- 9090 Feb, [place] [id number] [place] [address] 38342- 3529 Feb, [place] [id number] [place] [address] 59587- 4020 Feb, Type 2 diabetes mellitus with diabetic neuropathy, without long-term current use of insulin E11.40 [facility] [id number] [place] [address] 16548- 2323 Feb, Osteoarthritis of both knees, unspecified osteoarthritis type M17.0 [facility] [address] 47619- 3048 Feb, [facility] [id number] [place] [address] 58747- 5548 Feb, [facility] [id number] [place] [address] 17071- 2281 Feb, [facility] [id number] [place] [address] 94761- 2157 Jan, [facility] [id number] [place] [address] 89368- 2179 Jan, [facility] [id number] [place] [address] 46867- 7739 Jan, [facility] [id number] [place] [address] 27978- 6686 Jan, [place] [id number] [place] [address] 78673- 6348 Jan, Tinea pedis of both feet B35.3 [place] [id number] [place] [address] 76803- 8117 Jan, Type 2 diabetes mellitus with diabetic [...] seasonality J30.9 and Encounter for immunization Z23 [facility] [place] [id number] [place] [address] 83519- 3598 Jan, [facility] [id number] [place] [address] 31434- 5682 Jan, [facility] [id number] [place] [address] 74922- 0163 Dec, [facility] [address] [address] Dec, [facility] [id number] [place] [address] 42823 -4771 Dec, Unspecified asthma with (acute) exacerbation J45.901 and Chronic obstructive pulmonary disease with (acute) exacerbation J44.1 [facility] [id number] [place] [address] 44657- 9466 Dec, Arthritis of both knees M19.90 and Acute medial meniscus tear, right, initial encounter S83.241A [facility] [id number] [place] [address] 91825- 4415 Dec, [facility] [id number] [place] [address] 47274- 8348 Dec, [facility] [id number] [place] [address] 21286- 8734 Dec, [facility] [id number] [place] [address] 83579- 2510 Dec, [facility] [id number] [place] [address] 47982- 5291 Dec, History of pneumonia Z87.01 [facility] [id number] [place] [address] 57483- 4472 Dec, [facility] [id number] [place] [address] 83943- 7814 Dec, [facility] [id number] [place] [address] 82570- 0140 Dec, [facility] [id number] [place] [address] 42635- 5505 Dec, [facility] [id number] [place] [address] 39335- 1116 Dec, [facility] [id number] [place] [address] 70512- 2444 Dec, [facility] [id number] [address]35 30 Nov, 2015 Cough R05 and Pneumonia due to infectious organism, unspecified laterality, unspecified part of lung J18.9 [facility] [id number] [address]- 4465 28 Nov, 2015 [place] [id number] [place] [address] 42902- 4470 22 Nov, 2015 Type 2 diabetes mellitus [...] trigger, unspecified rhinitis seasonality J30.9 [place] [id number] [address] 6294 12 Nov, 2015 IMMUNIZATIONS No Known Immunizations SOCIAL HISTORY Never Assessed REASON FOR VISIT No longer using [facility] for care PLAN OF CARE VITAL SIGNS MEDICATIONS Unknown Medications RESULTS No Results PROCEDURES No Known procedures INSTRUCTIONS MEDICATIONS ADMINISTERED No Known Medications MEDICAL (GENERAL) HISTORY Type Description Date Medical History hypertension Medical History chronic obstructive pulmonary disease (COPD)-wears 2L O2 per [place], uses [employer] for home O2 Medical History Arthritis-knees and back Medical History type II diabetes-2008 Medical History depression-Dr. Segura dx in 2015 Medical History anxiety- Dr. Segura dx in [...] Hospitalization History Cough- [facility] [place] 04/10/2017 [facility]ization [facility] - Possible Pneumonia 06/2017 Hospitalization History COPD hiatal hernia 08/2017
--- OUTSIDE RECORDS SUMMARY | 2018-03-06 16:54 | XMS REPORT ---
Author Author DEBBIE RIVERA Organization 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 Active 884265872 Problem Mixed hyperlipidemia E78.2 Active 176072902 Problem Type 2 diabetes mellitus with diabetic neuropathy, without long-term current use of insulin E11.40 Active 08192029 Problem Chronic obstructive pulmonary disease, unspecified COPD type J44.9 Active 91037759 Problem Hypoxia R09.02 Active 432390450 Problem Osteoarthritis of both knees, unspecified osteoarthritis type M17.0 Active 831902992 Problem Allergic rhinitis, unspecified allergic rhinitis trigger, unspecified rhinitis seasonality J30.9 Active 94015773 Problem Chronic pain syndrome G89.4 Active 282218796 ALLERGIES No Information ENCOUNTERS Encounter Location Date Diagnosis [facility] [address] [address] Dec, [facility] [id number] [place] [address]87- 7210 Dec, [facility] [address] [address]- 5660 Dec, [facility] [address] [address]221- 3239 Nov, [facility] [address] 41932- 9561 Nov, Encounter for immunization Z23 [facility] [address] 87157- 7855 Nov, [facility] [address] 26162- 0287 Nov, Dermatitis associated with moisture L30.8 ; Pressure injury of buttock, stage 1, unspecified laterality L89.301 and Seasonal allergies J30.2 [facility] [address] 6[address]71- 7535 Nov, [facility] [address] 09136- 6347 Nov, [facility] [address] 37113- 9655 17 Nov, 2017 Alzheimers disease with early onset G30.0 [facility] [address] 49134- 0638 14 Nov, 2017 [facility] [address] 15376- 5484 12 Nov, 2017 Unspecified urinary incontinence R32 and Unspecified contact dermatitis due to other agents L25.8 [facility] [address] 68050- 7645 11 Nov, 2017 Chronic pain syndrome G89.4 [facility] [address] 65186- 9984 10 Nov, 2017 Type 2 diabetes mellitus with diabetic neuropathy, without long-term current use of insulin E11.40 [facility] [id number] [place] [address] 47764- 3839 Nov, [facility] [address] 38819- 3831 Nov, Chronic obstructive pulmonary disease, unspecified COPD type J44.9 and Gastroesophageal reflux disease without esophagitis K21.9 [facility] [address] 37948- 5225 Oct, [facility] [id number] [place] [address] 79055- 7863 Oct, [facility] [address] 90074- 8851 Oct, Chronic pain syndrome G89.4 [facility] [id number] [place] [address] 92879- 8781 Oct, Community acquired bacterial pneumonia J15.9 ; Allergic rhinitis, unspecified allergic rhinitis trigger, unspecified rhinitis seasonality J30.9 ; Type 2 diabetes mellitus with diabetic neuropathy, without long-term current use of insulin E11.40 ; Chronic GERD K21.9 and Chronic obstructive pulmonary disease, unspecified COPD type J44.9 [facility] [id number] [place] [address] 66132- 0289 Oct, [facility] [id number] [place] [address] 94740- 7546 Oct, [facility] [id number] [place] [address] 38857- 0435 Oct, [facility] [id number] [place] [address] 52223- 8224 Oct, [facility] [id number] [place] [address] 03738- 4238 Oct, Essential hypertension I10 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 [id number] [place] [address] 64635- 7202 Oct, [facility] [address] 25555- 8719 Oct, [facility] [address] 54537- 1856 Oct, Yeast dermatitis B37.2 [facility] [address] 67796- 3072 Oct, Chronic pain syndrome G89.4 [facility] [id number] [place] [address] 39773- 9733 Sep, [facility] [address] 60402- 7694 Sep, [facility] [id number] [place] [address] 76653- 2402 Sep, Alzheimers disease with early onset G30.0 and Chronic pain syndrome G89.4 [facility] [id number] [place] [address] 41544- 1220 Sep, COPD with acute exacerbation J44.1 [facility] [id number] [place] [address] 78709- 3305 Sep, [facility] [id number] [place] [address] 28290- 1906 Sep, [facility] [address] 67925- 5120 Sep, Gastroesophageal reflux disease without esophagitis K21.9 [facility] [id number] [place] [address] 40183- 8339 Aug, [facility] [address] [place] [address] 2658 Aug, [facility] [id number] [place] [address] 24595- 9082 Aug, 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 ; Hospital discharge follow-up Z09 ; Chronic obstructive pulmonary disease, unspecified COPD type J44.9 and Chronic GERD K21.9 [facility] [address] 96665- 8543 Aug, Chronic pain syndrome G89.4 [facility] [id number] [place] [address] 95777- 0664 Aug, [facility] [id number] [place] [address] 76643- 6330 Aug, [facility] [id number] [place] [address] 66097- 3002 Aug, Chronic pain syndrome G89.4 and Alzheimers disease with early onset G30.0 [facility] [id number] [place] [address] 17444- 0818 18 Aug, 2017 Type 2 diabetes mellitus with diabetic neuropathy, without long-term current use of insulin E11.40 ; Chronic obstructive pulmonary disease , unspecified COPD type J44.9 ; Chronic GERD K21.9 and 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 [facility] [id number] [place] [address] 92211- 1025 Aug, [facility] [id number] [place] [address] 17649- 3651 Aug, Essential hypertension I10 and Cough R05 [facility] [id number] [place] [address] 05255- 3338 Aug, [facility] [id number] [place] [address] 68466- 5389 12 Aug, 2017 [facility] [id number] [place] [address] 87878- 0280 07 Aug, 2017 [facility] [address], [place] [address] 2237 Aug, Chronic pain syndrome G89.4 [facility] [id number] [address] Aug, [facility] [address], [place] [address] Aug, [facility] [id number] [place] [address] 72809- 1399 July, Gastroesophageal reflux disease without esophagitis K21.9 [facility] [id number] [place] [address] 16885- 2221 July, [facility] [id number] [place] [address] 11238- 1912 July, [facility] [id number] [place] [address] 78636- 0755 July, [facility] [id number] [place] [address] 82767- 6693 July, Essential hypertension I10 and Chronic pain syndrome G89.4 [facility] [id number] [place] [address] 10499- 8324 July, Gastroesophageal reflux disease without esophagitis K21.9 [facility] [address], [place] [address]- 9172 July, Alzheimers disease with early onset G30.0 [facility] [id number] [address]- 1853 July, Chronic obstructive pulmonary disease, unspecified COPD type J44.9 ; Nocturnal cough R05 ; 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 and Recurrent major depressive disorder, in partial 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 [facility] [address] [address]- 2692 July, [facility] [id number] [place] [address] 26628- 9740 July, Type 2 diabetes mellitus with diabetic neuropathy, without long-term current use of insulin E11.40 [facility] [id number] [place] [address] 55827- 7069 July, Nocturnal hypoxemia G47.34 ; Chronic obstructive pulmonary disease, unspecified COPD type J44.9 and Nocturnal cough R05 [facility] [id number] [place] [address] 28251- 4939 July, [facility] [address] 97487- 1814 July, [facility] [address] 60196- 8834 July, [facility] [address] 24183- 0411 Jun, Chronic pain syndrome G89.4 [facility] [address] 57990- 4123 Jun, [facility] [address] 20879- 9431 Jun, [facility] [address] 89780- 7188 Jun, Alzheimers disease with early onset G30.0 [facility] [id number] [place] [address] 48604- 0261 Jun, [facility] [id number] [place] [address] 50949- 5309 Jun, Gastroesophageal reflux disease without esophagitis K21.9 [facility] [id number] [place] [address] 68533- 8518 Jun, Allergic rhinitis, unspecified allergic rhinitis trigger, unspecified rhinitis seasonality J30.9 [facility] [id number] [place] [address] 32392- 0157 Jun, Chronic pain syndrome G89.4 [facility] [address] 61266- 8528 May, [facility] [address] 80006- 1451 May, COPD with acute exacerbation J44.1 [facility] [address] [id number]- 3649 14 May, 2017 Type 2 diabetes mellitus with diabetic neuropathy, without long-term current use of insulin E11.40 ; COPD with acute exacerbation J44.1 ; Hypoxia R09.02 ; Chronic pain syndrome G89.4 ; Yeast dermatitis B37.2 ; Alzheimers disease with early onset G30.0 and 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 [facility] [address] 24539- 3168 May, [facility] [address] 05474- 1792 May, Chronic pain syndrome G89.4 [facility] [address] 37045- 0853 May, [facility] [address] 86939- 6729 May, [facility] [address] 03610- 3975 May, Mixed hyperlipidemia E78.2 [facility] [address] 79357- 8070 May, Chronic pain syndrome G89.4 [facility] [address] 16460- 9291 May, Anxiety F41.9 and Chronic pain syndrome G89.4 [facility] [address] 52321- 1005 Mar, [facility] [address] 69386- 3249 Mar, [facility] [address] [id number]- 2546 Mar, [facility] [id number] [place] [address] 16032- 3454 Mar, [facility] [id number] [place] [address] 45445- 4318 Mar, [facility] [id number] [place] [address] 11492- 6743 Mar, Anxiety F41.9 and Chronic pain syndrome G89.4 [facility] [id number] [place] [address] 17142- 6721 Mar, Medicare annual wellness visit, initial Z00.00 [...] Hiatal hernia K44.9 and Actinic keratosis L57.0 [facility] [address], [place] [address]- 3655 Mar, [facility] [id number] [place] [address] 53253- 5253 Mar, Chronic pain syndrome G89.4 [facility] [address], [place] [address]- 1717 Feb, [facility] [id number] [place] [address] 88408- 8670 Feb, Chronic pain syndrome G89.4 [facility] [id number] [place] [address] 81245- 5726 Feb, [facility] [id number] [place] [address] 04244- 2257 Feb, [facility] [id number] [place] [address] 66189- 6214 Feb, Anxiety F41.9 [facility] [address] 38680- 6730 Feb, [facility] [address] 84749- 7968 Feb, Chronic pain syndrome G89.4 [facility] [address] 95269- 0949 Jan, Essential hypertension I10 [facility] [facility] [address] 50022- 4610 Jan, Chronic pain syndrome G89.4 [place] [facility] [address] 44519- 2428 Jan, [facility] [address] 16595- 6860 Jan, Anxiety F41.9 [facility] [address] 12368- 4411 Jan, Encounter for immunization Z23 and Community acquired pneumonia, unspecified laterality J18.9 [facility] [facility] [address] 47452- 2610 Jan, Type 2 diabetes mellitus with diabetic neuropathy, without long-term current use of insulin E11.40 [facility] [id number] [place] [address] 16237- 5277 Dec, Anxiety F41.9 and Chronic pain syndrome G89.4 [facility] [address] 63555- 9917 Dec, Chronic pain syndrome G89.4 and Essential hypertension I10 [facility] [address] 70529- 5790 Dec, [facility] [address] 63274- 4099 Dec, Anxiety F41.9 [facility] [id number] [place] [address] 97660 2546 Dec, [facility] [id number] [place] [address] 44504 2546 Dec, Type 2 diabetes mellitus with diabetic neuropathy, without long-term current use of insulin E11.40 ; Lactic acidosis E87.2 ; Chronic obstructive pulmonary disease, unspecified COPD type J44.9 and Encounter for immunization Z23 [facility] [id number] [place] [address] 33569- 8210 Dec, Chronic pain syndrome G89.4 [facility] [id number] [place] [address] 78527 2546 Nov, [facility] [id number] [place] [address] 83464 2541 Nov, Chronic pain syndrome G89.4 [facility] [id number] [place] [address] 50262 2546 Nov, [facility] [id number] [place] [address] 96484 2546 Nov, [facility] [id number] [place] [address] 85838 2545 15 Nov, [address] [facility] [id number] [place] [address] 24354 2546 11 Nov, [address] [facility] [id number] [place] [address] 04894 2546 08 Nov, 2016 [facility] [id number] [place] [address] 28820 2546 05 Nov, 2016 [facility] [id number] [place] [address] 53445 2546 Nov, [facility] [id number] [place] [address] 91191- 6899 Oct, [facility] [address], [place] [address]- 9894 Oct, [facility] [id number] [place] [address] 86212- 5691 Oct, [facility] [id number] [place] [address] 26325- 1198 Oct, Essential hypertension I10 and Chronic pain syndrome G89.4 [facility] [id number] [place] [address] 44761- 4015 Oct, Anxiety F41.9 [facility] [id number] [place] [address] 11652- 3671 Oct, [facility] [id number] [place] [address] 54446- 3485 Oct, Chronic pain syndrome G89.4 [facility] [id number] [place] [address] 25363 -7685 Oct, Sore throat J02.9 and Acute nasopharyngitis (common cold) J00 [facility] [id number] [place] [address] 92980- 4217 Sep, [facility] [id number] [place] [address] 48275- 1947 Sep, COPD exacerbation J44.1 [facility] [id number] [place] [address] 54313- 1151 Sep, Chronic pain syndrome G89.4 [facility] [address], [place] [address]- 9690 Sep, Essential hypertension I10 [facility] [id number] [place] [address] 96475- 2782 Sep, [facility] [address] [place] [address] 96472- 5702 Sep, [facility] [id number] [place] [address] 38598- 8532 Sep, Anxiety F41.9 [facility] [id number] [place] [address] 56665- 4071 05 Sep, 2016 Chronic pain syndrome G89.4 [facility] [id number] [place] [address] 37698- 6676 Sep, [facility] [id number] [place] [address] 17630- 3006 Aug, Acute seasonal allergic rhinitis, unspecified trigger J30.2 ; Hiatal hernia K44.9 and Chronic pain syndrome G89.4 [facility] [id number] [place] [address] 47793- 7233 Aug, [facility] [id number] [place] [address] 22243- 9609 Aug, [facility] [id number] [place] [address] 86915- 4626 Aug, Chronic obstructive pulmonary disease, unspecified COPD type J44.9 [facility] [id number] [place] [address] 49833- 2231 Aug, Anxiety F41.9 [facility] [id number] [place] [address] 20888- 8581 Aug, Chronic pain syndrome G89.4 [facility] [id number] [place] [address] 57813- 4289 Aug, Hiatal hernia K44.9 and Actinic keratosis L57.0 [facility] [id number] [place] [address] 05840- 1006 Aug, [facility] [id number] [place] [address] 53107- 1687 Aug, Anxiety F41.9 [facility] [id number] [place] [address] 15758- 1869 July, [facility] [id number] [place] [address] 71569- 2149 July, Hiatal hernia K44.9 [facility] [address] [address] July, [facility] [address] [address]- [address] July, Anxiety F41.9 and Chronic pain syndrome G89.4 [facility] [address] [address] July, [facility] [id number] [place] [address]15- 5617 Jun, Chronic pain syndrome G89.4 [facility] [id number] [place] [address] [id number]- 0835 Jun, Chronic pain syndrome G89.4 [facility] [address] 67[address]- [address] Jun, [facility] [address] [address]- [address] Jun, [address]9 [facility] [address] [address]- [address] Jun, Allergic rhinitis, unspecified allergic rhinitis trigger, unspecified rhinitis seasonality J30.9 [facility] [id number] [place] [address] [id number]- [address]238 Jun, [facility] [id number] [place] [address] 16921- 2269 May, Chronic pain syndrome G89.4 [facility] [id number] [place] [address] [id number]- [address]35 May, [facility] [address] [address] May, [facility] [id number] [place] [address] 50400- 1061 May, Anxiety F41.[address] [place] [address] [address] [id number] [place] [address] 73502- 0046 May, Type 2 diabetes mellitus with diabetic [...] Anxiety F41.9 and Chronic pain syndrome G89.4 [place] [address] [id number] [place] [address] 43575- 4291 May, Essential hypertension I10 ; Type 2 diabetes mellitus with diabetic neuropathy, without long-term current use of insulin E11.40 ; Mixed hyperlipidemia E78.2 ; Chronic obstructive pulmonary disease, unspecified COPD type J44.9 and Chronic GERD K21.9 [place] [address] [id number] [place] [address] 35605- 7213 May, [place] [id number] [place] [address] 70785- 1332 May, [place] [id number] [place] [address] 23391- 7950 May, Type 2 diabetes mellitus with diabetic neuropathy, without long-term current use of insulin E11.40 [place] [id number] [place] [address] 79524- 8711 May, Dementia without behavioral disturbance, unspecified dementia type F03.90 [place] [id number] [place] [address] 91100- 2981 May, Type 2 diabetes mellitus with diabetic neuropathy, without long-term current use of insulin E11.40 ; Essential hypertension I10 ; Mixed hyperlipidemia E78.2 ; Chronic obstructive pulmonary disease, unspecified COPD type J44.9 ; Chronic GERD K21.9 and Osteoarthritis of both knees, unspecified osteoarthritis type M17.0 [place] [id number] [place] [address] 46563- 8710 May, [facility] [id number] [place] [address] 43229- 7178 May, [place] [id number] [place] [address] 66179- 9255 May, Anxiety F41.9 and Unspecified symptoms and signs involving cognitive functions and awareness R41.9 [place] [id number] [place] [address] 01996- 4603 May, [place] [id number] [place] [address] 12570- 4166 May, Type 2 diabetes mellitus with diabetic neuropathy, without long-term current use of insulin E11.40 ; Anxiety F41.9 and Chronic obstructive pulmonary disease, unspecified COPD type J44.9 [place] [id number] [place] [address] 18792- 6280 May, [place] [id number] [place] [address] 10661- 7649 May, [place] [id number] [place] [address] 63650- 0484 May, [place] [id number] [place] [address] 35529- 0587 May, Chronic obstructive pulmonary disease, unspecified COPD type J44.9 [place] [id number] [place] [address] 27550- 8086 Mar, [place] [id number] [place] [address] 57191- 7069 Mar, Arthritis of both knees M19.90 [place] [id number] [place] [address] 43923- 0298 Mar, Type 2 diabetes mellitus with diabetic neuropathy, without long-term current use of insulin E11.40 [place] [id number] [place] [address] 78931- 8498 Mar, [facility] [id number] [place] [address] 67896- 9152 Mar, Neck pain M54.2 and Weakness generalized R53.1 [place] [id number] [place] [address] 30542- 4279 Mar, [place] [address] 90281- 5804 Mar, Cervicalgia M54.2 and Impacted cerumen of both ears H61.23 [place] [address] 49700- 2345 Mar, [place] [address] 25684- 1817 Mar, Type 2 diabetes mellitus with diabetic neuropathy, without long-term current use of insulin E11.40 [place] [id number] [place] [address] 77355- 9634 Feb, [place] [id number] [place] [address] 68027- 0585 Feb, Hypoxia R09.02 [place] [id number] [place] [address] 93450- 8947 Feb, [place] [id number] [place] [address] 37768- 7917 Feb, [place] [id number] [place] [address] 05393- 1243 Feb, [place] [id number] [place] [address] 79808- 6356 Feb, Type 2 diabetes mellitus with diabetic neuropathy, without long-term current use of insulin E11.40 [facility] [id number] [place] [address] 93338- 3866 Feb, Osteoarthritis of both knees, unspecified osteoarthritis type M17.0 [facility] [address] 18484- 9390 Feb, [facility] [id number] [place] [address] 84473- 3762 Feb, [facility] [id number] [place] [address] 21224- 1765 Feb, [facility] [id number] [place] [address] 28567- 6292 Jan, [facility] [id number] [place] [address] 44909- 9098 Jan, [facility] [id number] [place] [address] 57394- 9743 Jan, [facility] [id number] [place] [address] 00537- 7845 Jan, [place] [id number] [place] [address] 16236- 3520 Jan, Tinea pedis of both feet B35.3 [place] [id number] [place] [address] 41995- 1525 Jan, Type 2 diabetes mellitus with diabetic [...] seasonality J30.9 and Encounter for immunization Z23 [place] [id number] [place] [address] 87342- 2297 Jan, [facility] [id number] [place] [address] 68326- 8007 Jan, [facility] [id number] [place] [address] 50678- 1180 Dec, [facility] [address] [address] Dec, [facility] [id number] [place] [address] 17062 -6865 Dec, Unspecified asthma with (acute) exacerbation J45.901 and Chronic obstructive pulmonary disease with (acute) exacerbation J44.1 [facility] [id number] [place] [address] 20398- 5755 Dec, Arthritis of both knees M19.90 and Acute medial meniscus tear, right, initial encounter S83.241A [facility] [id number] [place] [address] 81325- 2807 Dec, [facility] [id number] [place] [address] 37050- 2095 Dec, [facility] [id number] [place] [address] 30503- 2865 Dec, [facility] [id number] [place] [address] 97182- 6512 Dec, [facility] [id number] [place] [address] 06564- 0753 Dec, History of pneumonia Z87.01 [facility] [id number] [place] [address] 16543- 2666 Dec, [facility] [id number] [place] [address] 12511- 5223 Dec, [facility] [id number] [place] [address] 78218- 8461 Dec, [facility] [id number] [place] [address] 15005- 8363 Dec, [facility] [id number] [place] [address] 16311- 9997 Dec, [facility] [id number] [place] [address] 05538- 6529 Dec, [place] [address] [place] [id number] [address]5 30 Nov, 2015 Cough R05 and Pneumonia due to infectious organism, unspecified laterality, unspecified part of lung J18.9 [place] [address] [id number] [address]- 9394 28 Nov, 2015 [place] [id number] [place] [address] 03833- 6061 22 Nov, 2015 Type 2 diabetes mellitus [...] allergic rhinitis trigger, unspecified rhinitis seasonality J30.9 [place] [address] [id number] [address]- 3569 12 Nov, 2015 IMMUNIZATIONS Vaccine Route Administration Date Status FLULAVAL QUAD 0.5ML (6 MO & UP) 2017 IM Intramuscular Dec 25, 2017 Administered SOCIAL HISTORY Never Assessed REASON FOR VISIT Flu shot PLAN OF CARE VITAL SIGNS MEDICATIONS Unknown Medications RESULTS No Results PROCEDURES Procedure Date Ordered Result Body Site FLULAVAL QUAD 0.5ML (6 MO AND UP) 2017Dec 25, 2017 SINGLE IMMUNIZATION ADMIN Dec 25, 2017 INSTRUCTIONS MEDICATIONS ADMINISTERED No Known Medications MEDICAL (GENERAL) HISTORY Type Description Date Medical History hypertension Medical History chronic obstructive pulmonary disease (COPD)-wears 2L O2 per [place], uses [employer] for home O2 Medical History Arthritis-knees and [...] TIA, [facility] 2014 Hospitalization History COPD exacerbation--[facility] 12/27/2015 [facility] - fall 02/2016 [facility] History [facility] pneumonia 11/2016 Hospitalization History COPD exacerbation - Dr Hartley Attending 12/2016 Hospitalization History Cough- [facility] [place] 04/10/2017 Hospitalization History [facility] - Possible Pneumonia 06/2017 Hospitalization History COPD hiatal hernia 08/2017
--- OUTSIDE RECORDS SUMMARY | 2018-03-06 16:54 | XMS REPORT ---
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 Active 211947557 Problem Mixed hyperlipidemia E78.2 Active 924513473 Problem Type 2 diabetes mellitus with diabetic neuropathy, without long-term current use of insulin E11.40 Active 35326962 Problem Chronic obstructive pulmonary disease, unspecified COPD type J44.9 Active 40330779 Problem Hypoxia R09.02 Active 656777116 Problem Osteoarthritis of both knees, unspecified osteoarthritis type M17.0 Active 981630186 Problem Allergic rhinitis, unspecified allergic rhinitis trigger, unspecified rhinitis seasonality J30.9 Active 44783237 Problem Chronic pain syndrome G89.4 Active 081470269 ALLERGIES No Information ENCOUNTERS Encounter Location Date Diagnosis [facility] [address] [address] Dec, [facility] [id number] [place] [address] 95266- 4299 Dec, [facility] [address] [address]- 6864 Dec, [facility] [address] 14034- 4414 Nov, [facility] [address] 11326- 2974 Nov, Encounter for immunization Z23 [facility] [address] 9[address]53- 3087 Nov, [facility] [address] 37451- 9092 Nov, Dermatitis associated with moisture L30.8 ; Pressure injury of buttock, stage 1, unspecified laterality L89.301 and Seasonal allergies J30.2 [facility] [address] 38752- 2525 Nov, [facility] [address] 72517- 7005 Nov, [facility] [address] 45994- 4366 17 Nov, 2017 Alzheimers disease with early 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 [facility] [address] 27772- 0200 14 Nov, 2017 [facility] [address] 75568- 3719 12 Nov, 2017 Unspecified urinary incontinence R32 and Unspecified contact dermatitis due to other agents L25.8 [facility] [address] 99813- 7663 11 Nov, 2017 Chronic pain syndrome G89.4 [facility] [address] 81931- 4788 10 Nov, 2017 Type 2 diabetes mellitus with diabetic neuropathy, without long-term current use of insulin E11.40 [facility] [id number] [place] [address] 28037- 7964 Nov, [facility] [address] 26448- 9717 Nov, Chronic obstructive pulmonary disease, unspecified COPD type J44.9 and Gastroesophageal reflux disease without esophagitis K21.9 [facility] [address] 41840- 6087 Oct, [facility] [id number] [place] [address] 57248- 3645 Oct, [facility] [address] 35562- 2132 Oct, Chronic pain syndrome G89.4 [facility] [id number] [place] [address] 11044- 3634 Oct, Community acquired bacterial pneumonia J15.9 ; Allergic rhinitis, unspecified allergic rhinitis trigger, unspecified rhinitis seasonality J30.9 ; Type 2 diabetes mellitus with diabetic neuropathy, without long-term current use of insulin E11.40 ; Chronic GERD K21.9 and Chronic obstructive pulmonary disease, unspecified COPD type J44.9 [facility] [id number] [place] [address] 26198- 0050 Oct, [facility] [id number] [place] [address] 57729- 3005 Oct, [facility] [id number] [place] [address] 84471- 5561 Oct, [facility] [id number] [place] [address] 47445- 9239 Oct, [facility] [id number] [place] [address] 48787- 1534 Oct, Essential hypertension I10 [facility] [id number] [place] [address] 30400- 0425 Oct, Type 2 diabetes mellitus with diabetic neuropathy, without long-term current use of insulin E11.40 ; Chronic obstructive pulmonary disease , unspecified COPD type J44.9 ; Mixed hyperlipidemia E78.2 ; Osteoarthritis of both knees, unspecified osteoarthritis type M17.0 ; 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 and Essential hypertension I10 [facility] [id number] [place] [address] 66956- 8984 Oct, [facility] [address] 24468- 5807 Oct, [facility] [address] 75205- 1126 Oct, Yeast dermatitis B37.2 [facility] [address] 82690- 3247 Oct, Chronic pain syndrome G89.4 [facility] [id number] [place] [address] 75870- 2458 Sep, [facility] [address] 72965- 3805 Sep, [facility] [id number] [place] [address] 23286- 0637 Sep, Alzheimers disease with early 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 and Chronic pain syndrome G89.4 [facility] [id number] [place] [address] 16556- 6002 Sep, COPD with acute exacerbation J44.1 [facility] [id number] [place] [address] 55259- 6816 Sep, [facility] [id number] [place] [address] 29594- 7954 Sep, [facility] [address] 77514- 1849 Sep, Gastroesophageal reflux disease without esophagitis K21.9 [facility] [id number] [place] [address] 39186- 6347 Aug, [facility] [address] [place] [address] Aug, [facility] [id number] [place] [address] 58155- 4275 Aug, 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 ; Hospital discharge follow-up Z09 ; Chronic obstructive pulmonary disease, unspecified COPD type J44.9 and Chronic GERD K21.9 [facility] [address] 24000- 8707 Aug, Chronic pain syndrome G89.4 [facility] [id number] [place] [address] 34814- 0960 Aug, [facility] [id number] [place] [address] 14769- 5010 Aug, [facility] [id number] [place] [address] 12244- 7784 Aug, Chronic pain syndrome G89.4 and 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 [facility] [id number] [place] [address] 52398- 2163 18 Aug, 2017 Type 2 diabetes mellitus with diabetic neuropathy, without long-term current use of insulin E11.40 ; Chronic obstructive pulmonary disease , unspecified COPD type J44.9 ; Chronic GERD K21.9 and 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 [facility] [id number] [place] [address] 82932- 1873 Aug, [facility] [id number] [place] [address] 27945- 8362 Aug, Essential hypertension I10 and Cough R05 [facility] [id number] [place] [address] 38830- 3866 Aug, [facility] [id number] [place] [address] 83798- 5920 12 Aug, 2017 [facility] [id number] [place] [address] 73122- 3937 07 Aug, 2017 [facility] [address] [address] 6643 Aug, Chronic pain syndrome G89.4 [facility] [id number] [address]- 5978 Aug, [facility] [address] [address] Aug, [facility] [id number] [place] [address] 76574- 6900 July, Gastroesophageal reflux disease without esophagitis K21.9 [facility] [id number] [place] [address] 27694- 2822 July, [facility] [id number] [place] [address] 63019- 3405 July, [facility] [id number] [place] [address] 01835- 0041 July, [facility] [id number] [place] [address] 02283- 3736 July, Essential hypertension I10 and Chronic pain syndrome G89.4 [facility] [id number] [place] [address] 68293- 1452 July, Gastroesophageal reflux disease without esophagitis K21.9 [facility] [address] [address]- 5563 July, 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 [facility] [id number] [address]- 9344 July, Chronic obstructive pulmonary disease, unspecified COPD type J44.9 ; Nocturnal cough R05 ; 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 and Recurrent major depressive disorder, in partial 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 [facility] [address] [address]- 0892 July, [facility] [id number] [place] [address] 43511- 5502 July, Type 2 diabetes mellitus with diabetic neuropathy, without long-term current use of insulin E11.40 [facility] [id number] [place] [address] 68412- 0030 July, Nocturnal hypoxemia G47.34 ; Chronic obstructive pulmonary disease, unspecified COPD type J44.9 and Nocturnal cough R05 [facility] [id number] [place] [address] 03091- 9368 July, [facility] [address] 30978- 7295 July, [facility] [address] 92317- 4430 July, [facility] [address] 38664- 2558 Jun, Chronic pain syndrome G89.4 [facility] [address] 99553- 9244 Jun, [facility] [address] 45032- 3307 Jun, [facility] [address] 74036- 7447 Jun, Alzheimers disease with early onset G30.0 [facility] [id number] [place] [address] 55122- 6688 Jun, [facility] [id number] [place] [address] 61377- 3226 Jun, Gastroesophageal reflux disease without esophagitis K21.9 [facility] [id number] [place] [address] 19500- 5856 Jun, Allergic rhinitis, unspecified allergic rhinitis trigger, unspecified rhinitis seasonality J30.9 [facility] [id number] [place] [address] 79877- 7936 Jun, Chronic pain syndrome G89.4 [facility] [address] 12228- 9167 May, [facility] [address] 51377- 5901 May, COPD with acute exacerbation J44.1 [facility] [id number]- 2175 14 May, 2017 Type 2 diabetes mellitus with diabetic neuropathy, without long-term current use of insulin E11.40 ; COPD with acute exacerbation J44.1 ; Hypoxia R09.02 ; Chronic pain syndrome G89.4 ; Yeast dermatitis B37.2 ; 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 and 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 [facility] [address] 09487- 6279 May, [facility] [address] 68335- 0862 May, Chronic pain syndrome G89.4 [facility] [address] 92158- 1631 May, [facility] [address] 59230- 3046 May, [facility] [address] 21679- 3379 May, Mixed hyperlipidemia E78.2 [facility] [address] 69222- 1211 May, Chronic pain syndrome G89.4 [facility] [address] 67712- 1154 May, Anxiety F41.9 and Chronic pain syndrome G89.4 [facility] [address] 34003- 5371 Mar, [facility] [address] 50615- 5981 Mar, [facility] [id number]- 2546 Mar, [facility] [id number] [place] [address] 81183- 6976 Mar, [facility] [id number] [place] [address] 37684- 3915 Mar, [facility] [id number] [place] [address] 97089- 3006 Mar, Anxiety F41.9 and Chronic pain syndrome G89.4 [facility] [id number] [place] [address] 23944- 1147 Mar, Medicare annual wellness visit, initial Z00.00 [...] Hiatal hernia K44.9 and Actinic keratosis L57.0 [facility] [address] [address]- 2740 Mar, [facility] [id number] [place] [address] 70990- 4612 Mar, Chronic pain syndrome G89.4 [facility] [address] [address]- 6519 Feb, [facility] [id number] [place] [address] 26792- 8262 Feb, Chronic pain syndrome G89.4 [facility] [id number] [place] [address] 89665- 5074 Feb, [facility] [id number] [place] [address] 98017- 6002 Feb, [facility] [id number] [place] [address] 71895- 1354 Feb, Anxiety F41.9 [facility] [address] 03341- 9235 Feb, [facility] [address] 71037- 0602 Feb, Chronic pain syndrome G89.4 [facility] [address] 76116- 4184 Jan, Essential hypertension I10 [facility] [address] 90507- 8975 Jan, Chronic pain syndrome G89.4 [facility] [address] 75158- 8095 Jan, [facility] [address] 16370- 1783 Jan, Anxiety F41.9 [facility] [address] 46595- 9508 Jan, Encounter for immunization Z23 and Community acquired pneumonia, unspecified laterality J18.9 [facility] [address] 56272- 4304 Jan, Type 2 diabetes mellitus with diabetic neuropathy, without long-term current use of insulin E11.40 [facility] [id number] [place] [address] 21594- 2867 Dec, Anxiety F41.9 and Chronic pain syndrome G89.4 [facility] [address] 51807- 1218 Dec, Chronic pain syndrome G89.4 and Essential hypertension I10 [facility] [address] 49687- 4259 Dec, [facility] [address] 53861- 8438 Dec, Anxiety F41.9 [facility] [id number] [place] [address] 37632 2546 Dec, [facility] [id number] [place] [address] 87407 2546 Dec, Type 2 diabetes mellitus with diabetic neuropathy, without long-term current use of insulin E11.40 ; Lactic acidosis E87.2 ; Chronic obstructive pulmonary disease, unspecified COPD type J44.9 and Encounter for immunization Z23 [facility] [id number] [place] [address] 48396- 7269 Dec, Chronic pain syndrome G89.4 [facility] [id number] [place] [address] 71650 2546 Nov, [facility] [id number] [place] [address] 33423 254 Nov, Chronic pain syndrome G89.4 [facility] [id number] [place] [address] 56461 2546 Nov, [facility] [id number] [place] [address] 01897 2546 Nov, [facility] [id number] [place] [address] 94119 2543 15 Nov, 2016 Anxiety F41.9 [facility] [id number] [place] [address] 39862 2546 11 Nov, 2016 Anxiety F41.9 [facility] [id number] [place] [address] 74218 2546 08 Nov, 2016 [facility] [id number] [place] [address] 57188 2546 05 Nov, 2016 [facility] [id number] [place] [address] 17454 2546 Nov, [facility] [id number] [place] [address] 02449- 9248 Oct, [facility] [address] [address]- 7555 Oct, [facility] [id number] [place] [address] 78657- 4648 Oct, [facility] [id number] [place] [address] 05097- 8152 Oct, Essential hypertension I10 and Chronic pain syndrome G89.4 [facility] [id number] [place] [address] 63650- 6384 Oct, Anxiety F41.9 [facility] [id number] [place] [address] 22363- 1014 Oct, [facility] [id number] [place] [address] 03411- 3231 Oct, Chronic pain syndrome G89.4 [facility] [id number] [place] [address] 43575 -3229 Oct, Sore throat J02.9 and Acute nasopharyngitis (common cold) J00 [facility] [id number] [place] [address] 23493- 0531 Sep, [facility] [id number] [place] [address] 10087- 8685 Sep, COPD exacerbation J44.1 [facility] [id number] [place] [address] 20917- 0844 Sep, Chronic pain syndrome G89.4 [facility] [address] [address]- 6587 Sep, Essential hypertension I10 [facility] [id number] [place] [address] 29543- 6384 Sep, [facility] [id number] [place] [address] 09446- 2364 Sep, [facility] [id number] [place] [address] 47509- 1429 Sep, Anxiety F41.9 [facility] [id number] [place] [address] 86542- 3618 05 Sep, 2016 Chronic pain syndrome G89.4 [facility] [id number] [place] [address] 51900- 8597 Sep, [facility] [id number] [place] [address] 88528- 6586 Aug, Acute seasonal allergic rhinitis, unspecified trigger J30.2 ; Hiatal hernia K44.9 and Chronic pain syndrome G89.4 [facility] [id number] [place] [address] 35966- 6414 Aug, [facility] [id number] [place] [address] 96989- 2707 Aug, [facility] [id number] [place] [address] 68096- 4369 Aug, Chronic obstructive pulmonary disease, unspecified COPD type J44.9 [facility] [id number] [place] [address] 67924- 5113 Aug, Anxiety F41.9 [facility] [id number] [place] [address] 97600- 8094 Aug, Chronic pain syndrome G89.4 [facility] [id number] [place] [address] 25831- 2875 Aug, Hiatal hernia K44.9 and Actinic keratosis L57.0 [facility] [id number] [place] [address] 48634- 3587 Aug, [facility] [id number] [place] [address] 15601- 5079 Aug, Anxiety F41.9 [facility] [id number] [place] [address] 55606- 3855 July, [facility] [id number] [place] [address] 72643- 7715 July, Hiatal hernia K44.9 [facility] [address] 68771- 8392 July, [facility] [address] 48626- 7218 July, Anxiety F41.9 and Chronic pain syndrome G89.4 [facility] [address] 25885- 5257 July, [facility] [id number] [place] [address] 40711- 4249 Jun, Chronic pain syndrome G89.4 [facility] [id number] [place] [address] 22362- 9148 Jun, Chronic pain syndrome G89.4 [facility] [address] 87369- 2746 Jun, [facility] [address] 58468- 6523 Jun, Anxiety F41.9 [facility] [address] [id number] Jun, Allergic rhinitis, unspecified allergic rhinitis trigger, unspecified rhinitis seasonality J30.9 [facility] [id number] [place] [phone] Jun, [facility] [id number] [place] [id number] May, Chronic pain syndrome G89.4 [facility] [id number] [place] [id number] May, [facility] [facility] [address] [address] May, [facility] [id number] [place] [address] 09852- 8958 May, Anxiety F41.9 [place] [id number] [place] [address] 22883- 4381 May, Type 2 diabetes mellitus with diabetic [...] and Chronic pain syndrome G89.4 [place] [id number] [place] [address] 09228- 2917 May, Essential hypertension I10 ; Type 2 diabetes mellitus with diabetic neuropathy, without long-term current use of insulin E11.40 ; Mixed hyperlipidemia E78.2 ; Chronic obstructive pulmonary disease, unspecified COPD type J44.9 and Chronic GERD K21.9 [place] [id number] [place] [address] 62247- 6190 May, [place] [id number] [place] [address] 69593- 3836 May, [place] [id number] [place] [address] 56436- 6798 May, Type 2 diabetes mellitus with diabetic neuropathy, without long-term current use of insulin E11.40 [place] [id number] [place] [address] 07519- 3819 May, Dementia without behavioral disturbance, unspecified dementia type F03.90 [place] [id number] [place] [address] 93602- 1655 May, Type 2 diabetes mellitus with diabetic neuropathy, without long-term current use of insulin E11.40 ; Essential hypertension I10 ; Mixed hyperlipidemia E78.2 ; Chronic obstructive pulmonary disease, unspecified COPD type J44.9 ; Chronic GERD K21.9 and Osteoarthritis of both knees, unspecified osteoarthritis type M17.0 [place] [id number] [place] [address] 46249- 8451 May, [facility] [id number] [place] [address] 26387- 8267 May, [place] [id number] [place] [address] 85934- 4373 May, Anxiety F41.9 and Unspecified symptoms and signs involving cognitive functions and awareness R41.9 [place] [id number] [place] [address] 19744- 7996 May, [place] [id number] [place] [address] 92807- 8528 May, Type 2 diabetes mellitus with diabetic neuropathy, without long-term current use of insulin E11.40 ; Anxiety F41.9 and Chronic obstructive pulmonary disease, unspecified COPD type J44.9 [place] [id number] [place] [address] 29667- 6561 May, [place] [id number] [place] [address] 21255- 1954 May, [place] [id number] [place] [address] 93674- 1341 May, [place] [id number] [place] [address] 40766- 7042 May, Chronic obstructive pulmonary disease, unspecified COPD type J44.9 [place] [id number] [place] [address] 16542- 0682 Mar, [place] [id number] [place] [address] 44409- 8213 Mar, Arthritis of both knees M19.90 [place] [id number] [place] [address] 96774- 3380 Mar, Type 2 diabetes mellitus with diabetic neuropathy, without long-term current use of insulin E11.40 [place] [id number] [place] [address] 41744- 1703 Mar, [facility] [id number] [place] [address] 13460- 1487 Mar, Neck pain M54.2 and Weakness generalized R53.1 [place] [id number] [place] [address] 08595- 6744 Mar, [place] [address] 50997- 7741 Mar, Cervicalgia M54.2 and Impacted cerumen of both ears H61.23 [place] [address] 89824- 9873 Mar, [place] [address] 77014- 2829 Mar, Type 2 diabetes mellitus with diabetic neuropathy, without long-term current use of insulin E11.40 [place] [id number] [place] [address] 12782- 9466 Feb, [place] [id number] [place] [address] 85044- 8519 Feb, Hypoxia R09.02 [place] [id number] [place] [address] 03624- 3990 Feb, [place] [id number] [place] [address] 51480- 0583 Feb, [place] [id number] [place] [address] 43853- 5105 Feb, [place] [id number] [place] [address] 70271- 0729 Feb, Type 2 diabetes mellitus with diabetic neuropathy, without long-term current use of insulin E11.40 [facility] [id number] [place] [address] 22667- 9586 Feb, Osteoarthritis of both knees, unspecified osteoarthritis type M17.0 [facility] [address] 93387- 2505 Feb, [facility] [id number] [place] [address] 88893- 6040 Feb, [facility] [id number] [place] [address] 19261- 2827 Feb, [facility] [id number] [place] [address] 29832- 7337 Jan, [facility] [id number] [place] [address] 45902- 9847 Jan, [facility] [id number] [place] [address] 11822- 5028 Jan, [facility] [id number] [place] [address] 49885- 6767 Jan, [place] [id number] [place] [address] 62561- 7033 Jan, Tinea pedis of both feet B35.3 [place] [id number] [place] [address] 33184- 6957 Jan, Type 2 diabetes mellitus with diabetic [...] and Encounter for immunization Z23 [place] [id number] [place] [address] 89859- 5805 Jan, [facility] [id number] [place] [address] 23984- 5865 Jan, [facility] [id number] [place] [address] 62593- 4313 Dec, [facility] [address] [address] Dec, [facility] [id number] [place] [address] 62309 -0194 Dec, Unspecified asthma with (acute) exacerbation J45.901 and Chronic obstructive pulmonary disease with (acute) exacerbation J44.1 [facility] [id number] [place] [address] 47398- 6379 Dec, Arthritis of both knees M19.90 and Acute medial meniscus tear, right, initial encounter S83.241A [facility] [id number] [place] [address] 36165- 4447 Dec, [facility] [id number] [place] [address] 68590- 7799 Dec, [facility] [id number] [place] [address] 54212- 0614 Dec, [facility] [id number] [place] [address] 22542- 6264 Dec, [facility] [id number] [place] [address] 43986- 6162 Dec, History of pneumonia Z87.01 [facility] [id number] [place] [address] 85040- 5659 Dec, [facility] [id number] [place] [address] 36590- 3937 Dec, [facility] [id number] [place] [address] 85694- 3815 Dec, [facility] [id number] [place] [address] 02218- 1977 Dec, [facility] [id number] [place] [address] 58862- 0098 Dec, [facility] [id number] [place] [address] 00073- 5178 Dec, [facility] [id number] [address] 30 Nov, 2015 Cough R05 and Pneumonia due to infectious organism, unspecified laterality, unspecified part of lung J18.9 [place] [id number] [address]- 1076 28 Nov, 2015 [place] [address] [address]- 4074 22 Nov, 2015 Type 2 diabetes mellitus [...] trigger, unspecified rhinitis seasonality J30.9 [place] [id number] [address]- 2319 12 Nov, 2015 IMMUNIZATIONS No Known Immunizations SOCIAL HISTORY Never Assessed REASON FOR VISIT Controlled Med Refill 01/06 PLAN OF CARE VITAL SIGNS MEDICATIONS Unknown Medications RESULTS No Results PROCEDURES No Known procedures INSTRUCTIONS MEDICATIONS ADMINISTERED No Known Medications MEDICAL (GENERAL) HISTORY Type Description Date Medical History hypertension Medical History chronic obstructive pulmonary disease (COPD)-wears 2L O2 per [place], uses [employer] for home O2 Medical History Arthritis-knees [...] Attending 12/2016 Hospitalization History Cough- [facility] [place] 04/10/2017 [facility]ization [facility] - Possible Pneumonia 06/2017 Hospitalization History COPD hiatal hernia 08/2017
--- OUTSIDE RECORDS SUMMARY | 2018-03-06 16:55 | XMS REPORT ---
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 Active 209430550 Problem Mixed hyperlipidemia E78.2 Active 933861494 Problem Type 2 diabetes mellitus with diabetic neuropathy, without long-term current use of insulin E11.40 Active 78008637 Problem Chronic obstructive pulmonary disease, unspecified COPD type J44.9 Active 50528453 Problem Hypoxia R09.02 Active 896947518 Problem Osteoarthritis of both knees, unspecified osteoarthritis type M17.0 Active 134842212 Problem Allergic rhinitis, unspecified allergic rhinitis trigger, unspecified rhinitis seasonality J30.9 Active 88246828 Problem Chronic pain syndrome G89.4 Active 684370147 ALLERGIES No Information ENCOUNTERS Encounter Location Date Diagnosis [facility] [address] [address] Dec, [facility] [id number] [place] [address] 18932- 2231 Dec, [facility] [address] 88422- 7345 Dec, [facility] [address] 17525- 0821 Nov, [facility] [address] 34640- 0043 Nov, Encounter for immunization Z23 [facility] [address] 30873- 2568 Nov, [facility] [address] 80191- 5725 Nov, Dermatitis associated with moisture L30.8 ; Pressure injury of buttock, stage 1, unspecified laterality L89.301 and Seasonal allergies J30.2 [facility] [address] 25431- 5826 Nov, [facility] [address] 20688- 9560 Nov, [facility] [address] 64323- 2974 17 Nov, 2017 Alzheimers disease with early onset 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 [facility] [address] 63900- 7903 14 Nov, 2017 [facility] [address] 31506- 7972 12 Nov, 2017 Unspecified urinary incontinence R32 and Unspecified contact dermatitis due to other agents L25.8 [facility] [address] 29016- 4520 11 Nov, 2017 Chronic pain syndrome G89.4 [facility] [address] 66416- 9788 10 Nov, 2017 Type 2 diabetes mellitus with diabetic neuropathy, without long-term current use of insulin E11.40 [facility] [id number] [place] [address] 33540- 0240 Nov, [facility] [address] 71200- 6360 Nov, Chronic obstructive pulmonary disease, unspecified COPD type J44.9 and Gastroesophageal reflux disease without esophagitis K21.9 [facility] [address] 17073- 5231 Oct, [facility] [id number] [place] [address] 96069- 5640 Oct, [facility] [address] 51704- 8157 Oct, Chronic pain syndrome G89.4 [facility] [id number] [place] [address] 35271- 5512 Oct, Community acquired bacterial pneumonia J15.9 ; Allergic rhinitis, unspecified allergic rhinitis trigger, unspecified rhinitis seasonality J30.9 ; Type 2 diabetes mellitus with diabetic neuropathy, without long-term current use of insulin E11.40 ; Chronic GERD K21.9 and Chronic obstructive pulmonary disease, unspecified COPD type J44.9 [facility] [id number] [place] [address] 70964- 4793 Oct, [facility] [id number] [place] [address] 79572- 8184 Oct, [facility] [id number] [place] [address] 79465- 0330 Oct, [facility] [id number] [place] [address] 86661- 9074 Oct, [facility] [id number] [place] [address] 60347- 2939 Oct, Essential hypertension I10 [facility] [id number] [place] [address] 25467- 1427 Oct, Type 2 diabetes mellitus with diabetic neuropathy, without long-term current use of insulin E11.40 ; Chronic obstructive pulmonary disease , unspecified COPD type J44.9 ; Mixed hyperlipidemia E78.2 ; Osteoarthritis of both knees, unspecified osteoarthritis type M17.0 ; 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 and Essential hypertension I10 [facility] [id number] [place] [address] 73069- 2728 Oct, [facility] [address] 63046- 2709 Oct, [facility] [address] 98022- 7663 Oct, Yeast dermatitis B37.2 [facility] [address] 55521- 4244 Oct, Chronic pain syndrome G89.4 [facility] [id number] [place] [address] 34926- 3313 Sep, [facility] [address] 55444- 9433 Sep, [facility] [id number] [place] [address] 15653- 4140 Sep, 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 and Chronic pain syndrome G89.4 [facility] [id number] [place] [address] 32893- 8080 Sep, COPD with acute exacerbation J44.1 [facility] [id number] [place] [address] 37081- 0460 Sep, [facility] [id number] [place] [address] 45204- 4789 Sep, [facility] [address] 80431- 3788 Sep, Gastroesophageal reflux disease without esophagitis K21.9 [facility] [id number] [place] [address] 13333- 5006 Aug, [facility] [address] [place] [address] 1561 Aug, [facility] [id number] [place] [address] 29383- 6910 Aug, 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 ; Hospital discharge follow-up Z09 ; Chronic obstructive pulmonary disease, unspecified COPD type J44.9 and Chronic GERD K21.9 [facility] [facility] [address] 12821- 4119 Aug, Chronic pain syndrome G89.4 [facility] [id number] [place] [address] 47067- 8534 Aug, [facility] [id number] [place] [address] 03609- 7625 Aug, [facility] [id number] [place] [address] 59045- 5209 Aug, Chronic pain syndrome G89.4 and 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 [facility] [id number] [place] [address] 54330- 4646 18 Aug, 2017 Type 2 diabetes mellitus with diabetic neuropathy, without long-term current use of insulin E11.40 ; Chronic obstructive pulmonary disease , unspecified COPD type J44.9 ; Chronic GERD K21.9 and 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 [facility] [id number] [place] [address] 74977- 2258 Aug, [facility] [id number] [place] [address] 65422- 2629 Aug, Essential hypertension I10 and Cough R05 [facility] [id number] [place] [address] 76482- 7465 Aug, [facility] [id number] [place] [address] 69166- 2088 12 Aug, 2017 [facility] [id number] [place] [address] 15519- 5395 07 Aug, 2017 [facility] [address], [place] [address]- 4351 Aug, Chronic pain syndrome G89.4 [facility] [id number] [address]- 6105 Aug, [facility] [address], [place] [address]- 3778 Aug, [facility] [id number] [place] [address] 91369- 0184 July, Gastroesophageal reflux disease without esophagitis K21.9 [facility] [id number] [place] [address] 30939- 8518 July, [facility] [id number] [place] [address] 88756- 6472 July, [facility] [id number] [place] [address] 57104- 3991 July, [facility] [id number] [place] [address] 13016- 7542 July, Essential hypertension I10 and Chronic pain syndrome G89.4 [facility] [id number] [place] [address] 11386- 2445 July, Gastroesophageal reflux disease without esophagitis K21.9 [facility] [address], [place] [address]- 1378 July, 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 [facility] [id number] [address]- 4518 July, Chronic obstructive pulmonary disease, unspecified COPD type J44.9 ; Nocturnal cough R05 ; 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 and Recurrent major depressive disorder, in partial 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 [facility] [address], [place] [address] 1979 July, [facility] [id number] [place] [address] 30454- 7329 July, Type 2 diabetes mellitus with diabetic neuropathy, without long-term current use of insulin E11.40 [facility] [id number] [place] [address] 63151- 5932 July, Nocturnal hypoxemia G47.34 ; Chronic obstructive pulmonary disease, unspecified COPD type J44.9 and Nocturnal cough R05 [facility] [id number] [place] [address] 66236- 7925 July, [facility] [address] 98653- 3707 July, [facility] [address] 84989- 6903 July, [facility] [address] 57945- 2080 Jun, Chronic pain syndrome G89.4 [facility] [address] 71730- 8948 Jun, [facility] [address] 45137- 4307 Jun, [facility] [address] 00858- 7015 Jun, Alzheimers disease with early 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 [facility] [id number] [place] [address] 19606- 8673 Jun, [facility] [id number] [place] [address] 45178- 3061 Jun, Gastroesophageal reflux disease without esophagitis K21.9 [facility] [id number] [place] [address] 43773- 4042 Jun, Allergic rhinitis, unspecified allergic rhinitis trigger, unspecified rhinitis seasonality J30.9 [facility] [id number] [place] [address] 39651- 9345 Jun, Chronic pain syndrome G89.4 [facility] [address] 18671- 6699 May, [facility] [address] 03778- 8116 May, COPD with acute exacerbation J44.1 [facility] [id number]- 5199 14 May, 2017 Type 2 diabetes mellitus with diabetic neuropathy, without long-term current use of insulin E11.40 ; COPD with acute exacerbation J44.1 ; Hypoxia R09.02 ; Chronic pain syndrome G89.4 ; Yeast dermatitis B37.2 ; Alzheimers disease with early 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 and 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 [facility] [address] 05424- 9269 May, [facility] [address] 42270- 6296 May, Chronic pain syndrome G89.4 [facility] [address] 10567- 9413 May, [facility] [address] 40510- 0878 May, [facility] [address] 38358- 5573 May, Mixed hyperlipidemia E78.2 [facility] [address] 81502- 6538 May, Chronic pain syndrome G89.4 [facility] [address] 86295- 3650 May, Anxiety F41.9 and Chronic pain syndrome G89.4 [facility] [address] 27270- 2913 Mar, [facility] [address] 14286- 0129 Mar, [facility] [id number]- 2546 Mar, [facility] [id number] [place] [address] 16420- 7985 Mar, [facility] [id number] [place] [address] 12066- 9364 Mar, [facility] [id number] [place] [address] 02286- 6989 Mar, Anxiety F41.9 and Chronic pain syndrome G89.4 [facility] [id number] [place] [address] 97149- 1281 Mar, Medicare annual wellness visit, initial Z00.00 [...] Hiatal hernia K44.9 and Actinic keratosis L57.0 [facility] [address], [place] [address]- 7535 Mar, [facility] [id number] [place] [address] 88665- 6406 Mar, Chronic pain syndrome G89.4 [facility] [address], [place] [address]- 2267 Feb, [facility] [id number] [place] [address] 70079- 8551 Feb, Chronic pain syndrome G89.4 [facility] [id number] [place] [address] 77274- 5743 Feb, [facility] [id number] [place] [address] 14127- 8064 Feb, [facility] [id number] [place] [address] 94519- 7993 Feb, Anxiety F41.9 [facility] [address] 38584- 6766 Feb, [facility] [address] 26441- 1117 Feb, Chronic pain syndrome G89.4 [facility] [address] 67070- 5259 Jan, Essential hypertension I10 [place] [address] 95166- 3082 Jan, Chronic pain syndrome G89.4 [place] [address] 47294- 7709 Jan, [facility] [address] 85631- 9857 Jan, Anxiety F41.9 [facility] [address] 21918- 6237 Jan, Encounter for immunization Z23 and Community acquired pneumonia, unspecified laterality J18.9 [facility] [address] 15232- 4026 Jan, Type 2 diabetes mellitus with diabetic neuropathy, without long-term current use of insulin E11.40 [facility] [id number] [place] [address] 38188- 0679 Dec, Anxiety F41.9 and Chronic pain syndrome G89.4 [facility] [address] 07907- 7321 Dec, Chronic pain syndrome G89.4 and Essential hypertension I10 [facility] [address] 00986- 5597 Dec, [facility] [address] 65458- 0929 Dec, Anxiety F41.9 [facility] [id number] [place] [address] 45276 2546 Dec, [facility] [id number] [place] [address] 83546 2546 Dec, Type 2 diabetes mellitus with diabetic neuropathy, without long-term current use of insulin E11.40 ; Lactic acidosis E87.2 ; Chronic obstructive pulmonary disease, unspecified COPD type J44.9 and Encounter for immunization Z23 [facility] [id number] [place] [address] 14057- 4527 Dec, Chronic pain syndrome G89.4 [facility] [id number] [place] [address] 82954 2546 Nov, [facility] [id number] [place] [address] 27972 2547 Nov, Chronic pain syndrome G89.4 [facility] [id number] [place] [address] 84382 2546 Nov, [facility] [id number] [place] [address] 12187 2546 Nov, [facility] [id number] [place] [address] 39321 2540 15 Nov, 2016 Anxiety F41.9 [facility] [id number] [place] [address] 55104 2546 11 Nov, 2016 Anxiety F41.9 [facility] [id number] [place] [address] 40235 2546 08 Nov, 2016 [facility] [id number] [place] [address] 26150 2546 05 Nov, 2016 [facility] [id number] [place] [address] 83340 2546 Nov, [facility] [id number] [place] [address] 54645- 0590 Oct, [facility] [address], [place] [address]- 3543 Oct, [facility] [id number] [place] [address] 46757- 7575 Oct, [facility] [id number] [place] [address] 90027- 2136 Oct, Essential hypertension I10 and Chronic pain syndrome G89.4 [facility] [id number] [place] [address] 45090- 4521 Oct, Anxiety F41.9 [facility] [id number] [place] [address] 77552- 0262 Oct, [facility] [id number] [place] [address] 85610- 2334 Oct, Chronic pain syndrome G89.4 [facility] [id number] [place] [address] 85981 -3531 Oct, Sore throat J02.9 and Acute nasopharyngitis (common cold) J00 [facility] [id number] [place] [address] 17426- 8397 Sep, [facility] [id number] [place] [address] 89857- 2078 Sep, COPD exacerbation J44.1 [facility] [id number] [place] [address] 86164- 2043 Sep, Chronic pain syndrome G89.4 [facility] [address], [place] [address]- 3111 Sep, Essential hypertension I10 [facility] [id number] [place] [address] 15282- 5086 Sep, [facility] [id number] [place] [address] 17688- 1109 Sep, [facility] [id number] [place] [address] 76891- 0117 Sep, Anxiety F41.9 [facility] [id number] [place] [address] 52213- 1560 05 Sep, 2016 Chronic pain syndrome G89.4 [facility] [id number] [place] [address] 85760- 8385 Sep, [facility] [id number] [place] [address] 03417- 5336 Aug, Acute seasonal allergic rhinitis, unspecified trigger J30.2 ; Hiatal hernia K44.9 and Chronic pain syndrome G89.4 [facility] [id number] [place] [address] 16172- 5961 Aug, [facility] [id number] [place] [address] 82259- 6683 Aug, [facility] [id number] [place] [address] 67050- 5680 Aug, Chronic obstructive pulmonary disease, unspecified COPD type J44.9 [facility] [id number] [place] [address] 80579- 7146 Aug, Anxiety F41.9 [facility] [id number] [place] [address] 69093- 9383 Aug, Chronic pain syndrome G89.4 [facility] [id number] [place] [address] 19010- 0202 Aug, Hiatal hernia K44.9 and Actinic keratosis L57.0 [facility] [id number] [place] [address] 32171- 8483 Aug, [facility] [id number] [place] [address] 76126- 2009 Aug, Anxiety F41.9 [facility] [id number] [place] [address] 43194- 4009 July, [facility] [id number] [place] [address] 07423- 3179 July, Hiatal hernia K44.9 [facility] [address] 49886- 5579 July, [facility] [address] 11080- 3418 July, Anxiety F41.9 and Chronic pain syndrome G89.4 [facility] [address] 48205- 3643 July, [facility] [id number] [place] [address] 96540- 9305 Jun, Chronic pain syndrome G89.4 [facility] [id number] [place] [address] 85737- 0015 Jun, Chronic pain syndrome G89.4 [facility] [address] 06846- 8180 Jun, [facility] [address] 98389- 8667 Jun, Anxiety F41.9 [facility] [address] 098[address]- [address] Jun, Allergic rhinitis, unspecified allergic rhinitis trigger, unspecified rhinitis seasonality J30.9 [facility] [address] [place] [place] [id number] [place] [address] [phone]- 4159 Jun, [facility] [id number] [place] [address] 27724- 1359 May, Chronic pain syndrome G89.4 [facility] [id number] [place] [address] 02543- [address]201 May, [facility] [address] [address]- [address] May, [facility] [id number] [place] [address] 99619- 9744 May, Anxiety F41.9 [place] [id number] [place] [address] 89611- 1776 May, Type 2 diabetes mellitus with diabetic [...] Anxiety F41.9 and Chronic pain syndrome G89.4 [place] [address] [place] [id number] [place] [address] 34293- 9849 May, Essential hypertension I10 ; Type 2 diabetes mellitus with diabetic neuropathy, without long-term current use of insulin E11.40 ; Mixed hyperlipidemia E78.2 ; Chronic obstructive pulmonary disease, unspecified COPD type J44.9 and Chronic GERD K21.9 [place] [address] [place] [id number] [place] [address] [phone]- 4628 May, [place] [address] [place] [id number] [place] [address]- [address] May, [place] [address] [place] [id number] [place] [address] 16351- 8614 May, Type 2 diabetes mellitus with diabetic neuropathy, without long-term current use of insulin E11.40 [place] [address] [place] [id number] [place] [address] 78053- 2831 May, Dementia without behavioral disturbance, unspecified dementia type F03.90 [place] [id number] [place] [address] 48657- 4612 May, Type 2 diabetes mellitus with diabetic neuropathy, without long-term current use of insulin E11.40 ; Essential hypertension I10 ; Mixed hyperlipidemia E78.2 ; Chronic obstructive pulmonary disease, unspecified COPD type J44.9 ; Chronic GERD K21.9 and Osteoarthritis of both knees, unspecified osteoarthritis type M17.0 [place] [id number] [place] [address] 54644- 6986 May, [facility] [id number] [place] [address] 26685- 7983 May, [place] [id number] [place] [address] 04905- 4108 May, Anxiety F41.9 and Unspecified symptoms and signs involving cognitive functions and awareness R41.9 [place] [id number] [place] [address] 14010- 7563 May, [facility] [id number] [place] [address] 29798- 0474 May, Type 2 diabetes mellitus with diabetic neuropathy, without long-term current use of insulin E11.40 ; Anxiety F41.9 and Chronic obstructive pulmonary disease, unspecified COPD type J44.9 [place] [id number] [place] [address] 77162- 7705 May, [facility] [facility] [id number] [place] [address] 61803- 1539 May, [facility] [id number] [place] [address] 79681- 1025 May, [facility] [facility] [id number] [place] [address] 81243- 0536 May, Chronic obstructive pulmonary disease, unspecified COPD type J44.9 [place] [id number] [place] [address] 11674- 5496 Mar, [facility] [facility] [id number] [place] [address] 19075- 3355 Mar, Arthritis of both knees M19.90 [place] [facility] [id number] [place] [address] 78102- 3462 Mar, Type 2 diabetes mellitus with diabetic neuropathy, without long-term current use of insulin E11.40 [place] [id number] [place] [address] 17162- 8371 Mar, [facility] [id number] [place] [address] 41379- 7686 Mar, Neck pain M54.2 and Weakness generalized R53.1 [place] [id number] [place] [address] 42423- 0057 Mar, [place] [address] 29804- 8487 Mar, Cervicalgia M54.2 and Impacted cerumen of both ears H61.23 [place] [address] 25178- 1005 Mar, [place] [address] 06366- 7431 Mar, Type 2 diabetes mellitus with diabetic neuropathy, without long-term current use of insulin E11.40 [place] [id number] [place] [address] 30632- 4655 Feb, [facility] [facility] [id number] [place] [address] 68122- 2057 Feb, Hypoxia R09.02 [place] [id number] [place] [address] 68875- 0074 Feb, [facility] [facility] [id number] [place] [address] 10771- 3973 Feb, [place] [id number] [place] [address] 66549- 4222 Feb, [facility] [facility] [id number] [place] [address] 36010- 2367 Feb, Type 2 diabetes mellitus with diabetic neuropathy, without long-term current use of insulin E11.40 [facility] [id number] [place] [address] 24007- 8817 Feb, Osteoarthritis of both knees, unspecified osteoarthritis type M17.0 [facility] [address] 54221- 6349 Feb, [facility] [id number] [place] [address] 14517- 7184 Feb, [facility] [id number] [place] [address] 37279- 4186 Feb, [facility] [id number] [place] [address] 91576- 8953 Jan, [facility] [id number] [place] [address] 44099- 8465 Jan, [facility] [id number] [place] [address] 29963- 3548 Jan, [facility] [id number] [place] [address] 70146- 0683 Jan, [place] [id number] [place] [address] 82828- 3214 Jan, Tinea pedis of both feet B35.3 [place] [id number] [place] [address] 31816- 2369 Jan, Type 2 diabetes mellitus with diabetic [...] seasonality J30.9 and Encounter for immunization Z23 [facility] [id number] [place] [address] 80163- 5492 Jan, [facility] [id number] [place] [address] 43898- 3011 Jan, [facility] [id number] [place] [address] 17921- 2837 Dec, [facility] [id number] [place] [address] 5120 Dec, [facility] [id number] [place] [address] 75220 -9546 Dec, Unspecified asthma with (acute) exacerbation J45.901 and Chronic obstructive pulmonary disease with (acute) exacerbation J44.1 [facility] [id number] [place] [address] 68687- 4984 Dec, Arthritis of both knees M19.90 and Acute medial meniscus tear, right, initial encounter S83.241A [facility] [id number] [place] [address] 81745- 1822 Dec, [facility] [id number] [place] [address] 61865- 4426 Dec, [facility] [id number] [place] [address] 83690- 7583 Dec, [facility] [id number] [place] [address] 14973- 6089 Dec, [facility] [id number] [place] [address] 26707- 4964 Dec, History of pneumonia Z87.01 [facility] [id number] [place] [address] 70519- 3074 Dec, [facility] [id number] [place] [address] 15617- 8431 Dec, [facility] [id number] [place] [address] 45466- 6536 Dec, [facility] [id number] [place] [address] 08421- 5223 Dec, [facility] [id number] [place] [address] 70375- 8611 Dec, [facility] [id number] [place] [address] 79416- 9924 Dec, [facility] [id number] [address] 2776 30 Nov, 2015 Cough R05 and Pneumonia due to infectious organism, unspecified laterality, unspecified part of lung J18.9 [place] [id number] [address]- 4227 28 Nov, 2015 [place] [id number] [place] [address] 58801- 7998 Nov, Type 2 diabetes mellitus with diabetic [...] allergic rhinitis trigger, unspecified rhinitis seasonality J30.9 [place] [id number] [place] [address]- 1112 12 Nov, 2015 IMMUNIZATIONS No Known Immunizations SOCIAL HISTORY Never Assessed REASON FOR VISIT Requests return call PLAN OF CARE VITAL SIGNS MEDICATIONS Medication Instructions Dosage Frequency Start Date End Date Duration Status Lyrica 100 mg Orally Three times a day 1 capsule 8h 28 Active RESULTS No Results PROCEDURES No Known procedures INSTRUCTIONS MEDICATIONS ADMINISTERED No Known Medications MEDICAL (GENERAL) HISTORY Type Description Date Medical History hypertension Medical History chronic obstructive pulmonary disease (COPD)-wears 2L O2 per [place], uses Chinese for home O2 Medical History Arthritis-knees and [...] History wrist fracture 2004 Surgical History TURP 2004 Surgical History EGD Colonoscopy [facility] 06/06/2016 Hospitalization History TIA, [facility] 2014 Hospitalization History COPD exacerbation--[facility] 12/27/2015 [facility] - fall 02/2016 [facility] History [facility] pneumonia 11/2016 Hospitalization History COPD exacerbation - Dr Hartley Attending 12/2016 Hospitalization History Cough- [facility] [place] 04/10/2017 Hospitalization History [facility] - Possible Pneumonia 06/2017 Hospitalization History COPD hiatal hernia 08/2017
--- OUTSIDE RECORDS SUMMARY | 2018-03-06 16:55 | XMS REPORT ---
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 Active 142445473 Problem Mixed hyperlipidemia E78.2 Active 743037264 Problem Type 2 diabetes mellitus with diabetic neuropathy, without long-term current use of insulin E11.40 Active 53516143 Problem Chronic obstructive pulmonary disease, unspecified COPD type J44.9 Active 60907259 Problem Hypoxia R09.02 Active 116135298 Problem Osteoarthritis of both knees, unspecified osteoarthritis type M17.0 Active 139915712 Problem Allergic rhinitis, unspecified allergic rhinitis trigger, unspecified rhinitis seasonality J30.9 Active 90774631 Problem Chronic pain syndrome G89.4 Active 987497580 ALLERGIES No Information ENCOUNTERS Encounter Location Date Diagnosis [facility] [address], [place] [address] Dec, [facility] [id number] [place] [address] 35626- 9383 Dec, [facility] [address] 71084- 6582 Dec, [facility] [address] 90958- 5323 Nov, [facility] [address] 21369- 4349 Nov, Encounter for immunization Z23 [facility] [address] 01283- 7616 Nov, [facility] [address] 08490- 9315 Nov, Dermatitis associated with moisture L30.8 ; Pressure injury of buttock, stage 1, unspecified laterality L89.301 and Seasonal allergies J30.2 [facility] [address] 13215- 0642 Nov, [facility] [address] 69079- 7901 Nov, [facility] [address] 51426- 7008 17 Nov, 2017 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 [facility] [address] 40254- 6639 14 Nov, 2017 [facility] [address] 41259- 3191 12 Nov, 2017 Unspecified urinary incontinence R32 and Unspecified contact dermatitis due to other agents L25.8 [facility] [address] 42274- 9244 11 Nov, 2017 Chronic pain syndrome G89.4 [facility] [address] 43766- 4143 10 Nov, 2017 Type 2 diabetes mellitus with diabetic neuropathy, without long-term current use of insulin E11.40 [facility] [id number] [place] [address] 92238- 8159 Nov, [facility] [address] 64698- 8530 Nov, Chronic obstructive pulmonary disease, unspecified COPD type J44.9 and Gastroesophageal reflux disease without esophagitis K21.9 [facility] [address] 38959- 7846 Oct, [facility] [id number] [place] [address] 61279- 3418 Oct, [facility] [address] 53582- 4021 Oct, Chronic pain syndrome G89.4 [facility] [id number] [place] [address] 89651- 0062 Oct, Community acquired bacterial pneumonia J15.9 ; Allergic rhinitis, unspecified allergic rhinitis trigger, unspecified rhinitis seasonality J30.9 ; Type 2 diabetes mellitus with diabetic neuropathy, without long-term current use of insulin E11.40 ; Chronic GERD K21.9 and Chronic obstructive pulmonary disease, unspecified COPD type J44.9 [facility] [id number] [place] [address] 89241- 9517 Oct, [facility] [id number] [place] [address] 63389- 3018 Oct, [facility] [id number] [place] [address] 26207- 2715 Oct, [facility] [id number] [place] [address] 58211- 8347 Oct, [facility] [id number] [place] [address] 04758- 1027 Oct, Essential hypertension I10 [facility] [id number] [place] [address] 64482- 1108 Oct, Type 2 diabetes mellitus with diabetic neuropathy, without long-term current use of insulin E11.40 ; Chronic obstructive pulmonary disease , unspecified COPD type J44.9 ; Mixed hyperlipidemia E78.2 ; Osteoarthritis of both knees, unspecified osteoarthritis type M17.0 ; 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 and Essential hypertension I10 [facility] [id number] [place] [address] 24623- 0305 Oct, [facility] [address] 43012- 2611 Oct, [facility] [address] 23961- 6042 Oct, Yeast dermatitis B37.2 [facility] [address] 99752- 3171 Oct, Chronic pain syndrome G89.4 [facility] [id number] [place] [address] 14407- 3233 Sep, [facility] [address] 12209- 0555 Sep, [facility] [id number] [place] [address] 27515- 4041 Sep, 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 and Chronic pain syndrome G89.4 [facility] [id number] [place] [address] 64948- 5325 Sep, COPD with acute exacerbation J44.1 [facility] [id number] [place] [address] 97841- 4344 Sep, [facility] [id number] [place] [address] 36698- 1693 Sep, [facility] [address] 24804- 5121 Sep, Gastroesophageal reflux disease without esophagitis K21.9 [facility] [id number] [place] [address] 14324- 4587 Aug, [facility] [address] [place] [address] 0920 Aug, [facility] [id number] [place] [address] 04967- 7304 Aug, 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 ; Hospital discharge follow-up Z09 ; Chronic obstructive pulmonary disease, unspecified COPD type J44.9 and Chronic GERD K21.9 [facility] [address] 37125- 9854 Aug, Chronic pain syndrome G89.4 [facility] [id number] [place] [address] 87300- 5133 Aug, [facility] [id number] [place] [address] 58246- 8315 Aug, [facility] [id number] [place] [address] 71514- 9657 Aug, Chronic pain syndrome G89.4 and 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 [facility] [id number] [place] [address] 46770- 7443 18 Aug, 2017 Type 2 diabetes mellitus with diabetic neuropathy, without long-term current use of insulin E11.40 ; Chronic obstructive pulmonary disease , unspecified COPD type J44.9 ; Chronic GERD K21.9 and 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 [facility] [id number] [place] [address] 86274- 6607 Aug, [facility] [id number] [place] [address] 85065- 3602 Aug, Essential hypertension I10 and Cough R05 [facility] [id number] [place] [address] 29970- 9172 Aug, [facility] [id number] [place] [address] 66140- 5112 12 Aug, 2017 [facility] [id number] [place] [address] 49631- 8621 07 Aug, 2017 [facility] [address], [place] [address]- 2482 Aug, Chronic pain syndrome G89.4 [facility] [id number] [address]- 0295 Aug, [facility] [address], [place] [address]- 9528 Aug, [facility] [id number] [place] [address] 52212- 7760 July, Gastroesophageal reflux disease without esophagitis K21.9 [facility] [id number] [place] [address] 55287- 1436 July, [facility] [id number] [place] [address] 59494- 3577 July, [facility] [id number] [place] [address] 23434- 3127 July, [facility] [id number] [place] [address] 43631- 3363 July, Essential hypertension I10 and Chronic pain syndrome G89.4 [facility] [id number] [place] [address] 91350- 8570 July, Gastroesophageal reflux disease without esophagitis K21.9 [facility] [address], [place] [address]- 3783 July, 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 [facility] [id number] [address]- 1001 July, Chronic obstructive pulmonary disease, unspecified COPD type J44.9 ; Nocturnal cough R05 ; 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 and Recurrent major depressive disorder, in partial 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 [facility] [address], [place] [address]- 1747 July, [facility] [id number] [place] [address] 39421- 5876 July, Type 2 diabetes mellitus with diabetic neuropathy, without long-term current use of insulin E11.40 [facility] [id number] [place] [address] 39727- 4229 July, Nocturnal hypoxemia G47.34 ; Chronic obstructive pulmonary disease, unspecified COPD type J44.9 and Nocturnal cough R05 [facility] [id number] [place] [address] 88372- 3305 July, [facility] [address] 70168- 7494 July, [facility] [address] 71597- 8444 July, [facility] [address] 71784- 8060 Jun, Chronic pain syndrome G89.4 [facility] [address] 79524- 9654 Jun, [facility] [address] 91533- 1812 Jun, [facility] [address] 30155- 1043 Jun, Alzheimers 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 [facility] [id number] [place] [address] 90883- 5894 Jun, [facility] [id number] [place] [address] 87280- 7945 Jun, Gastroesophageal reflux disease without esophagitis K21.9 [facility] [id number] [place] [address] 97225- 6923 Jun, Allergic rhinitis, unspecified allergic rhinitis trigger, unspecified rhinitis seasonality J30.9 [facility] [id number] [place] [address] 67122- 6213 Jun, Chronic pain syndrome G89.4 [facility] [address] 64712- 5017 May, [facility] [address] 97058- 2590 May, COPD with acute exacerbation J44.1 [facility] [id number]- 9288 14 May, 2017 Type 2 diabetes mellitus with diabetic neuropathy, without long-term current use of insulin E11.40 ; COPD with acute exacerbation J44.1 ; Hypoxia R09.02 ; Chronic pain syndrome G89.4 ; Yeast dermatitis B37.2 ; 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 and 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 [facility] [address] 52817- 5973 May, [facility] [address] 15791- 0481 May, Chronic pain syndrome G89.4 [facility] [address] 28240- 9705 May, [facility] [address] 35730- 4818 May, [facility] [address] 99479- 8424 May, Mixed hyperlipidemia E78.2 [facility] [address] 79994- 4690 May, Chronic pain syndrome G89.4 [facility] [address] 13571- 3645 May, Anxiety F41.9 and Chronic pain syndrome G89.4 [facility] [address] 09985- 6615 Mar, [facility] [address] 36589- 2806 Mar, [facility] [id number]- 2546 Mar, [facility] [id number] [place] [address] 10134- 3292 Mar, [facility] [address] [place] [address] 03412- 3264 Mar, [facility] [id number] [place] [address] 69287- 5135 Mar, Anxiety F41.9 and Chronic pain syndrome G89.4 [facility] [address] [place] [address] 81660- 3868 Mar, Medicare annual wellness visit, initial Z00.00 [...] Hiatal hernia K44.9 and Actinic keratosis L57.0 [facility] [address], [place] [address]- 0499 Mar, [facility] [address] [place] [address] 40301- 3499 Mar, Chronic pain syndrome G89.4 [facility] [address], [place] [address]- 1273 Feb, [facility] [id number] [place] [address] 61246- 4899 Feb, Chronic pain syndrome G89.4 [facility] [address] [place] [address] 02403- 8716 Feb, [facility] [id number] [place] [address] 12838- 3459 Feb, [facility] [id number] [place] [address] 95406- 5401 Feb, Anxiety F41.9 [facility] [address] 11525- 8271 Feb, [facility] [address] 88791- 0946 Feb, Chronic pain syndrome G89.4 [facility] [address] 71028- 9546 Jan, Essential hypertension I10 [place] [facility] [address] 14446- 8211 Jan, Chronic pain syndrome G89.4 [place] [address] 08194- 5713 Jan, [facility] [address] 70615- 4727 Jan, Anxiety F41.9 [facility] [address] 03008- 8487 Jan, Encounter for immunization Z23 and Community acquired pneumonia, unspecified laterality J18.9 [place] [facility] [address] 86834- 6235 Jan, Type 2 diabetes mellitus with diabetic neuropathy, without long-term current use of insulin E11.40 [facility] [id number] [place] [address] 80331- 1468 Dec, Anxiety F41.9 and Chronic pain syndrome G89.4 [facility] [address] 28410- 2894 Dec, Chronic pain syndrome G89.4 and Essential hypertension I10 [facility] [address] 84980- 2316 Dec, [facility] [address] 89182- 5163 Dec, Anxiety F41.9 [facility] [id number] [place] [address] 68731 2546 Dec, [facility] [id number] [place] [address] 05864 2546 Dec, Type 2 diabetes mellitus with diabetic neuropathy, without long-term current use of insulin E11.40 ; Lactic acidosis E87.2 ; Chronic obstructive pulmonary disease, unspecified COPD type J44.9 and Encounter for immunization Z23 [facility] [id number] [place] [address] 33303- 6974 Dec, Chronic pain syndrome G89.4 [facility] [id number] [place] [address] 75187 2546 Nov, [facility] [id number] [place] [address] 94268 2548 Nov, Chronic pain syndrome G89.4 [facility] [id number] [place] [address] 95341 2546 Nov, [facility] [id number] [place] [address] 75625 2546 Nov, [facility] [id number] [place] [address] 03368 2543 15 Nov, 2016 Anxiety F41.9 [facility] [id number] [place] [address] 81764 2546 11 Nov, 2016 Anxiety F41.9 [facility] [id number] [place] [address] 87627 2546 08 Nov, 2016 [facility] [id number] [place] [address] 60591 2546 05 Nov, 2016 [facility] [id number] [place] [address] 07768 2546 Nov, [facility] [id number] [place] [address] 98038- 3925 Oct, [facility] [address], [place] [address]- 6022 Oct, [facility] [id number] [place] [address] 61343- 2614 Oct, [facility] [id number] [place] [address] 57390- 6915 Oct, Essential hypertension I10 and Chronic pain syndrome G89.4 [facility] [id number] [place] [address] 20732- 8740 Oct, Anxiety F41.9 [facility] [id number] [place] [address] 95210- 8746 Oct, [facility] [id number] [place] [address] 06673- 9420 Oct, Chronic pain syndrome G89.4 [facility] [id number] [place] [address] 22631 -3276 Oct, Sore throat J02.9 and Acute nasopharyngitis (common cold) J00 [facility] [id number] [place] [address] 54845- 9826 Sep, [facility] [id number] [place] [address] 60777- 2249 Sep, COPD exacerbation J44.1 [facility] [id number] [place] [address] 64069- 3580 Sep, Chronic pain syndrome G89.4 [facility] [address], [place] [address]- 3948 Sep, Essential hypertension I10 [facility] [id number] [place] [address] 73851- 0052 Sep, [facility] [id number] [place] [address] 58314- 4829 Sep, [facility] [id number] [place] [address] 82479- 2316 Sep, Anxiety F41.9 [facility] [id number] [place] [address] 23169- 0461 05 Sep, 2016 Chronic pain syndrome G89.4 [facility] [id number] [place] [address] 77416- 9017 Sep, [facility] [id number] [place] [address] 10468- 4685 Aug, Acute seasonal allergic rhinitis, unspecified trigger J30.2 ; Hiatal hernia K44.9 and Chronic pain syndrome G89.4 [facility] [id number] [place] [address] 13781- 4158 Aug, [facility] [id number] [place] [address] 42393- 5142 Aug, [facility] [id number] [place] [address] 22008- 3215 Aug, Chronic obstructive pulmonary disease, unspecified COPD type J44.9 [facility] [id number] [place] [address] [id number] Aug, Anxiety F41.9 [facility] [id number] [place] [address] [id number]- 2323 Aug, Chronic pain syndrome G89.4 [facility] [id number] [place] [address] [phone]- [phone] Aug, Hiatal hernia K44.9 and Actinic keratosis L57.0 [facility] [id number] [place] [address] [phone] Aug, [facility] [id number] [place] [address] [phone]- [phone] Aug, Anxiety F41.9 [facility] [id number] [place] [address] [phone]- [phone] July, [facility] [id number] [place] [address] [phone]- [phone] July, Hiatal hernia K44.9 [facility] [address] 44517- 2150 July, [facility] [address] 14307- 1808 July, Anxiety F41.9 and Chronic pain syndrome G89.4 [facility] [address] 58825- 3498 July, [facility] [id number] [place] [address] [phone]- [phone] Jun, Chronic pain syndrome G89.4 [facility] [id number] [place] [address] [phone]- [phone] Jun, Chronic pain syndrome G89.4 [facility] [address] 40591- [phone] Jun, [facility] [address] 39183- 2705 Jun, Anxiety F41.9 [facility] [address] 28490- 0650 Jun, Allergic rhinitis, unspecified allergic rhinitis trigger, unspecified rhinitis seasonality J30.9 [facility] [id number] [place] [address] [phone]- [phone] Jun, [facility] [id number] [place] [address] [phone]- [phone] May, Chronic pain syndrome G89.4 [facility] [id number] [place] [address] [phone]- 7407 May, [facility] [address] 10117- 9908 May, [facility] [id number] [place] [address] 85310- 2661 May, Anxiety F41.9 [id number] [place] [address] 12663- 7320 May, Type 2 diabetes mellitus with diabetic [...] and Chronic pain syndrome G89.4 [address] [id number] [place] [address] 34882- 7899 May, Essential hypertension I10 ; Type 2 diabetes mellitus with diabetic neuropathy, without long-term current use of insulin E11.40 ; Mixed hyperlipidemia E78.2 ; Chronic obstructive pulmonary disease, unspecified COPD type J44.9 and Chronic GERD K21.9 [place] [id number] [place] [address] 47775- 5913 May, [place] [id number] [place] [address] 37381- 5273 May, [place] [id number] [place] [address] 66912- 8086 May, Type 2 diabetes mellitus with diabetic neuropathy, without long-term current use of insulin E11.40 [place] [id number] [place] [address] 39108- 3011 May, Dementia without behavioral disturbance, unspecified dementia type F03.90 [address] [place] [address] 19226- 4422 May, Type 2 diabetes mellitus with diabetic neuropathy, without long-term current use of insulin E11.40 ; Essential hypertension I10 ; Mixed hyperlipidemia E78.2 ; Chronic obstructive pulmonary disease, unspecified COPD type J44.9 ; Chronic GERD K21.9 and Osteoarthritis of both knees, unspecified osteoarthritis type M17.0 [place] [id number] [place] [address] 62915- 5954 May, [facility] [id number] [place] [address] 66482- 8994 May, [address] [id number] [place] [address] 66927- 4899 May, Anxiety F41.9 and Unspecified symptoms and signs involving cognitive functions and awareness R41.9 [place] [id number] [place] [address] 09723- 5758 May, [place] [id number] [place] [address] 43346- 6663 May, Type 2 diabetes mellitus with diabetic neuropathy, without long-term current use of insulin E11.40 ; Anxiety F41.9 and Chronic obstructive pulmonary disease, unspecified COPD type J44.9 [place] [id number] [place] [address] 81450- 0898 May, [address] [id number] [place] [address] 21947- 1506 May, [place] [id number] [place] [address] 02238- 3140 May, [place] [id number] [place] [address] 72890- 8312 May, Chronic obstructive pulmonary disease, unspecified COPD type J44.9 [place] [id number] [place] [address] 76749- 5053 Mar, [place] [id number] [place] [address] 24092- 3500 Mar, Arthritis of both knees M19.90 [place] [id number] [place] [address] 92993- 6338 Mar, Type 2 diabetes mellitus with diabetic neuropathy, without long-term current use of insulin E11.40 [place] [id number] [place] [address] 88070- 6197 Mar, [facility] [id number] [place] [address] 32218- 2511 Mar, Neck pain M54.2 and Weakness generalized R53.1 [place] [id number] [place] [address] 53841- 9796 Mar, [address] [address] 25925- 3008 Mar, Cervicalgia M54.2 and Impacted cerumen of both ears H61.23 [address] [address] 57954- 4013 Mar, [address] [address] 35686- 4577 Mar, Type 2 diabetes mellitus with diabetic neuropathy, without long-term current use of insulin E11.40 [place] [id number] [place] [address] 67264- 7598 Feb, [place] [id number] [place] [address] 42441- 0576 Feb, Hypoxia R09.02 [place] [id number] [place] [address] 08147- 8328 Feb, [place] [id number] [place] [address] 82599- 0886 Feb, [place] [id number] [place] [address] 79008- 5161 Feb, [place] [id number] [place] [address] 36421- 8994 Feb, Type 2 diabetes mellitus with diabetic neuropathy, without long-term current use of insulin E11.40 [facility] [id number] [place] [address] 94872- 2117 Feb, Osteoarthritis of both knees, unspecified osteoarthritis type M17.0 [facility] [address] 93009- 6828 Feb, [facility] [id number] [place] [address] 51918- 7163 Feb, [facility] [id number] [place] [address] 94691- 0354 Feb, [facility] [id number] [place] [address] 70612- 3707 Jan, [facility] [id number] [place] [address] 69315- 5371 Jan, [facility] [id number] [place] [address] 25208- 5803 Jan, [facility] [id number] [place] [address] 17951- 8794 Jan, [place] [id number] [place] [address] 84570- 1802 Jan, Tinea pedis of both feet B35.3 [place] [id number] [place] [address] [phone]- 0777 Jan, Type 2 diabetes mellitus with diabetic [...] and Encounter for immunization Z23 [place] [id number] [place] [address] 58978- 0994 Jan, [facility] [id number] [place] [address] 06377- 6683 Jan, [facility] [id number] [place] [address] 01851- 8067 Dec, [facility] [address], [place] [address] Dec, [facility] [address] [place] [address] 15563 -0113 Dec, Unspecified asthma with (acute) exacerbation J45.901 and Chronic obstructive pulmonary disease with (acute) exacerbation J44.1 [facility] [id number] [place] [address] 35283- 5470 Dec, Arthritis of both knees M19.90 and Acute medial meniscus tear, right, initial encounter S83.241A [facility] [id number] [place] [address] 10487- 4533 Dec, [facility] [id number] [place] [address] 52706- 6547 Dec, [facility] [id number] [place] [address] 35206- 6744 Dec, [facility] [address] [place] [address] 91835- 3074 Dec, [facility] [id number] [place] [address] 32368- 6574 Dec, History of pneumonia Z87.01 [facility] [address] [place] [address] 47060- 2117 Dec, [facility] [address] [place] [address] 02175- 2720 Dec, [facility] [address] [place] [address] 39303- 3252 Dec, [facility] [id number] [place] [address] 82600- 1845 Dec, [facility] [id number] [place] [address] 99155- 2602 Dec, [facility] [id number] [place] [address] 36497- 0747 Dec, [facility] [id number] [address]- 7269 30 Nov, 2015 Cough R05 and Pneumonia due to infectious organism, unspecified laterality, unspecified part of lung J18.9 [address] [id number] [address]- 5577 28 Nov, 2015 [address] [address] [place] [address]- 2853 22 Nov, 2015 Type 2 diabetes mellitus [...] allergic rhinitis trigger, unspecified rhinitis seasonality J30.9 [address] [id number] [address]- 0738 12 Nov, 2015 IMMUNIZATIONS No Known Immunizations SOCIAL HISTORY Never Assessed REASON FOR VISIT Controlled Med Refill PLAN OF CARE VITAL SIGNS MEDICATIONS Unknown Medications RESULTS No Results PROCEDURES No Known procedures INSTRUCTIONS MEDICATIONS ADMINISTERED No Known Medications MEDICAL (GENERAL) HISTORY Type Description Date Medical History hypertension Medical History chronic obstructive pulmonary disease (COPD)-wears 2L O2 per [place], uses [place] for home O2 Medical History Arthritis-knees and [...] TIA, [address] [facility] 2014 Hospitalization History COPD exacerbation--[facility] 12/27/2015 [facility] - fall 02/2016 Hospitalization History [facility] pneumonia 11/2016 Hospitalization History COPD exacerbation - Dr Hartley Attending 12/2016 Hospitalization History Cough- [facility] [place] 04/10/2017 Hospitalization History [facility] - Possible Pneumonia 06/2017 Hospitalization History COPD hiatal hernia 08/2017
--- NOTE | 2018-03-06 18:27 | ED Integumentary General ---
General Chief Complaint: Skin/Wound Problems Stated Complaint: THROAT SORE, LEG WEAK,RASH Source: patient, old records Exam Limitations: no limitations History of Present Illness Date Seen by Provider: Mar 06, 2018 Time Seen by Provider: 18:06 Initial Comments This 82-year-old gentleman presents to the emergency room with 2 complaints. He has sore throat. He also has sore irritated skin around his sacral area. He has been dealing with some leg weakness for which she has been getting therapy. This has caused falls. He believes he bruised his sacral area during a recent fall. He also has some skin integrity issues in that area and has been applying gauze dressings with tape and antibiotic ointment. He previously was a patient of wound care and is open to returning to wound care. He is afebrile. He has no other symptoms associated with his sore throat. He previously had some physical therapy treatment at home. He has an appointment with Dr. Bobby on Friday to hopefully get this restarted. Allergies and Home Medications Allergies Coded Allergies: Serotonin 5HT-3 Antagonists (Unverified Allergy, Unknown, 11/25/17) Tricyclic Compounds (Unverified Allergy, Unknown, 11/25/17) codeine (Verified Allergy, Unknown, 04/07/06) hydrocodone (Unverified Allergy, Unknown, 10/16/15) aspirin (Unverified Adverse Reaction, Mild, STOMACH IRRITATION, 11/25/17) Home Medications Amlodipine Besylate 10 Mg Tablet, 10 MG PO HS, (Reported) Atorvastatin Calcium 40 Mg Tablet, 40 MG PO HS, (Reported) Azithromycin 250 Mg Tablet, 250 MG PO DAILY Prescribed by: KRISTIAN LOCKHART on 11/25/17 1214 Benzonatate 100 Mg Capsule, 100 MG PO HS, (Reported) Cephalexin 500 Mg Capsule, 500 MG PO TID Prescribed by: CEASAR CASTILLO on 03/06/18 182 Cetirizine HCl 10 Mg Tablet, 10 MG PO DAILY, (Reported) Clonazepam 1 Mg Tablet, 1 MG PO TID, (Reported) Clopidogrel Bisulfate 75 Mg Tablet, 75 MG PO HS, (Reported) Doxazosin Mesylate 4 Mg Tablet, 4 MG PO HS, (Reported) Fluconazole 150 Mg Tablet, 150 MG PO UD Prescribed by: CEASAR CASTILLO on 03/06/18 185 Fluticasone Propionate 16 Gm [place].susp, 1 SPRAY NS BID, (Reported) Glipizide 5 Mg Tablet, 5 MG PO BID, (Reported) Glycerin/Propylene Glycol 15 Ml Drops, 1 DROP OU QID PRN for DRY EYES, (Reported ) Ipratropium/Albuterol Sulfate 3 Ml Ampul.neb, 3 ML IH TID, (Reported) Levocetirizine Dihydrochloride 5 Mg Tablet, 5 MG PO HS, (Reported) Metformin HCl 500 Mg Tablet, 250 MG PO DAILY PRN for BS ABOVE 200, (Reported) Mirabegron 25 Mg Tab.er.24h, 25 MG PO 1700, (Reported) Montelukast Sodium 10 Mg Tablet, 10 MG PO 1700, (Reported) Multivitamin 1 Each Tablet, 1 TAB PO DAILY, (Reported) Nystatin 15 Gm Cream..g., TOP HS, (Reported) Nystatin 15 Gm Powder, 15 GM TP BID PRN for RASH Prescribed by: CEASAR CASTILLO on 03/06/181852 Pregabalin 100 Mg Capsule, 100 MG PO TID, (Reported) Ranitidine HCl 150 Mg Tablet, 150 MG PO BID, (Reported) Rivastigmine 1 Each Patch.td24, 4.6 MG TD DAILY, (Reported) Tramadol HCl 50 Mg Tablet, 50 MG PO BID, (Reported) Triamcinolone Acet 15 Gm Cr, TP HS, (Reported) Vilazodone Hydrochloride 10 Mg Tablet, 10 MG PO HS, (Reported) Patient Home Medication List Home Medication List Reviewed: Yes Review of Systems Review of Systems Constitutional: no symptoms reported EENTM: see HPI Respiratory: no symptoms reported Cardiovascular: no symptoms reported Gastrointestinal: no symptoms reported Genitourinary: no symptoms reported Musculoskeletal: see HPI Skin: see HPI Psychiatric/Neurological: See HPI Endocrine: No Symptoms Reported Hematologic/Lymphatic: No Symptoms Reported Past Ckgnhwb-Sqanhq-Kjgbyc Hx Past Med/Social Hx: Reviewed Nursing Past Med/Soc Hx Patient Social History Type Used: Cigars, Cigarettes Former Smoker, Quit: Mar 31, 1966 2nd Hand Smoke Exposure: No Recent Foreign Travel: No Contact w/Someone Who Travel: No Recent Hopitalizations: No Immunizations Up To Date Tetanus Booster (TDap): Unknown PED Vaccines UTD: No Date of Pneumonia Vaccine: Mar 31, 2016 Date of Influenza Vaccine: Dec 19, 2016 Seasonal Allergies Seasonal Allergies: No Past Medical History Surgeries: Yes (RIGHT EYELID BASAL CELL CANCER, HERNIA REPAIR) Abdominal, Adenoidectomy, Eye Surgery, Prostatectomy, Tonsillectomy Respiratory: Yes (O2 DEPENDENT AT 3L/NC CONTINUOUSLY) Pneumonia, Chronic Bronchitis, COPD, Emphysema Currently Using CPAP: No Currently Using BIPAP: No Cardiac: Yes Chronic Edema/Swelling, High Cholesterol, Hypertension Neurological: Yes Dementia Reproductive Disorders: No Sexually Transmitted Disease: No HIV/AIDS: No Genitourinary: Yes (PROSTATE CANCER > 10 YEARS AGO) Prostate Problems, Kidney Stones Gastrointestinal: Yes Abdominal Hernia, Gastroesophageal Reflux, Polyps, Hiatal Hernia Musculoskeletal: Yes Degenerate Disk Disease, Osteoporosis, Arthritis, Chronic Back Pain Endocrine: Yes Diabetes, Non-Insulin dep HEENT: Yes Cataract Loss of Vision: Right Hearing Impairment: Denies Cancer: Yes (PROSTATE CANCER, BASAL CELL CANCER OF RIGHT EYE) Prostate, Skin Did You Recieve Any Treatments: Yes What Type of Treatment Did You: Surgical Intervention Psychosocial: Yes Anxiety, Depression Integumentary: Yes (SKIN CANCER; PRESSURE ULCER LEFT BUTTOCK) Blood Disorders: No Adverse Reaction/Blood Tranf: No Family Medical History FH: breast cancer G8 SISTER Myocardial infarction 19 FATHER Heart Disease, Lung Disease Physical Exam Vital Signs Capillary Refill : General Appearance: WD/WN, no apparent distress HEENT: other (chronic changes to the eyes) Neck: other (kyphosis) Cardiovascular: regular rate, rhythm, no edema, no murmur Respiratory: lungs clear, normal breath sounds, no respiratory distress, no accessory muscle use Neurologic/Psychiatric: 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 There appears to be bruising on the right side and blanching erythema to the left. There are some excoriations. No ulcerations are visible. This area is a little tender to the touch. There is also an erythematous patch of skin in the abdominal skin fold on the left consistent with intertrigo.) Departure Impression Primary Impression: Contusion, buttock Qualified Codes: S30.0XXA - Contusion of lower back and pelvis, initial encounter Additional Impressions: Decubitus skin ulcer Qualified Codes: L89.91 - Pressure ulcer of unspecified site, stage 1 Sore throat Intertrigo Disposition: 01 HOME, SELF-CARE Condition: Stable Departure-Patient Inst. Referrals: DARIN PINEDO MD (PCP/Family) Primary Care Physician Patient Instructions: Cellulitis (Skin Infection), Adult (DC) Add. Discharge Instructions: Keep pressure off of your sores as much as possible. Change positions frequently to reduce pressure on any particular spot. Keep your appointment with Dr. Bobby on Friday. Contact to the wound care clinic to see about resuming wound care therapies. The number is [phone]. Complete your antibiotic as prescribed. Return to care if symptoms worsen. All discharge instructions reviewed with patient and/or family. Voiced understanding. Scripts Nystatin (Nystatin) 15 Gm Powder 15 GM TP BID PRN for RASH, #1 EA 1 Refill Prov: CEASAR LUCAS MD 03/06/18 Fluconazole (Diflucan) 150 Mg Tablet 150 MG PO UD, #2 TAB Prov: CEASAR LUCAS MD 03/06/18 Cephalexin (Keflex) 500 Mg Capsule 500 MG PO TID, #20 CAP Prov: CEASAR LUCAS MD 03/06/18 Copy Copies To 1: TAMMY BOBBY JOSHUA T MD Mar 06, 2018 18:27
[2018-03-06] MEDS ORDERED: CEPH-507 PO (18:28)
[2018-03-06] MEDS ORDERED: FLUC150T PO (18:52)
[2018-03-06] MEDS ORDERED: NYST15PO4 TP (18:53)
[2018-03-06 19:00] VITALS: BP 146/73
== END 2018-03-06 19:00 | disposition home or self-care (01) ==
LOC: EDUNIT# 16:13 → ER 16:14
DX: S30.0XXA Contusion of lower back and pelvis, initial encounter (principal); J02.9 Acute pharyngitis, unspecified; L30.4 Erythema intertrigo; L89.151 Pressure ulcer of sacral region, stage 1; J43.9 Emphysema, unspecified; E78.00 Pure hypercholesterolemia, unspecified; I10 Essential (primary) hypertension; F03.90 Unspecified dementia, unspecified severity, without behavioral disturbance, psychotic disturbance, mood disturbance, and anxiety; K21.9 Gastro-esophageal reflux disease without esophagitis; M81.0 Age-related osteoporosis without current pathological fracture; E11.9 Type 2 diabetes mellitus without complications; F41.9 Anxiety disorder, unspecified; F32.9 Major depressive disorder, single episode, unspecified; Z86.010 Personal history of colon polyps; Z82.49 Family history of ischemic heart disease and other diseases of the circulatory system; Z80.3 Family history of malignant neoplasm of breast; Z87.442 Personal history of urinary calculi; Z85.46 Personal history of malignant neoplasm of prostate; Z88.1 Allergy status to other antibiotic agents; Z88.5 Allergy status to narcotic agent; Z88.6 Allergy status to analgesic agent; Z88.8 Allergy status to other drugs, medicaments and biological substances; Z79.02 Long term (current) use of antithrombotics/antiplatelets; Z79.51 Long term (current) use of inhaled steroids; Z79.4 Long term (current) use of insulin; Z87.891 Personal history of nicotine dependence; Z85.828 Personal history of other malignant neoplasm of skin; Z90.89 Acquired absence of other organs; Z90.79 Acquired absence of other genital organ(s); Z87.01 Personal history of pneumonia (recurrent)
CPT/HCPCS: 99282

== ENCOUNTER → 2018-03-12 | Outpatient (CLI) | payer MEDICARE, MEDICAID ==
[~2018-03-12] MED LIST changes: +NYST15PO4 TP
== END ==
LOC: WOUNDCARE 11:43
PROVIDERS: ATTEND Orthopaedic Surgery Hand Surgery
DX: L89.151 Pressure ulcer of sacral region, stage 1 (principal); E11.628 Type 2 diabetes mellitus with other skin complications; L30.4 Erythema intertrigo
CPT/HCPCS: 99213

== ENCOUNTER 2018-07-13 10:13 | Emergency (ER) | payer MEDICARE, MEDICAID ==
[~2018-07-13] VITALS: Ht 182.9 cm; Wt 112.0 kg
[~2018-07-13 10:13] MED LIST changes: -AMLO10TA6 PO; +AMLO10TA7 PO
--- NOTE | 2018-07-13 11:03 | ED General ---
General Chief Complaint: Skin/Wound Problems Stated Complaint: PNEUMONIA;WOUND ON TAILBONE Nursing Triage Note: pt presents to ed with complaints of chronic l buttock sore, cough/sore throat, cp with coughing x 3-4 days. Nursing Sepsis Screen: No Definite Risk Source of Information: Patient Exam Limitations: No Limitations (NELY MCCABE MD) History of Present Illness Date Seen by Provider: Jul 13, 2018 Time Seen by Provider: 10:31 Initial Comments Here last Friday complaints. Reports he's had cough and sore throat as well as shortness of breath that amount over the last several days. Also has a chronic wound to his buttock. He is concerned about. States that he thinks he has pneumonia because she's had multiple times in the past. Follows with Dr. Bobby. Saw him last week and will see him again in a few weeks. No recent fever. Denies nausea or vomiting. Timing/Duration: 3-4 Days Severity: Mild, Moderate Modifying Factors: improves with Rest Associated Systoms: No Chest Pain; Cough; No Fever/Chills, No Nausea/Vomiting; Shortness of Air; No Weakness (NELY MCCABE MD) Allergies and Home Medications Allergies Coded Allergies: Serotonin 5HT-3 Antagonists (Unverified Allergy, Unknown, 11/25/17) Tricyclic Compounds (Unverified Allergy, Unknown, 11/25/17) codeine (Verified Allergy, Unknown, 04/07/06) hydrocodone (Unverified Allergy, Unknown, 10/16/15) aspirin (Unverified Adverse Reaction, Mild, STOMACH IRRITATION, 11/25/17) Home Medications Amlodipine Besylate 10 Mg Tablet, 10 MG PO HS, (Reported) Atorvastatin Calcium 40 Mg Tablet, 40 MG PO HS, (Reported) Azithromycin 250 Mg Tablet, 250 MG PO DAILY Prescribed by: KRISTIAN LOCKHART on 11/25/17 1214 Benzonatate 100 Mg Capsule, 100 MG PO HS, (Reported) Cephalexin 500 Mg Capsule, 500 MG PO TID Prescribed by: CEASAR CASTILLO on 03/06/18 1828 Cetirizine HCl 10 Mg Tablet, 10 MG PO DAILY, (Reported) Clonazepam 1 Mg Tablet, 1 MG PO TID, (Reported) Clopidogrel Bisulfate 75 Mg Tablet, 75 MG PO HS, (Reported) Doxazosin Mesylate 4 Mg Tablet, 4 MG PO HS, (Reported) Fluconazole 150 Mg Tablet, 150 MG PO UD Prescribed by: CEASAR CASTILLO on 03/06/181851 Fluticasone Propionate 16 Gm [place].susp, 1 SPRAY NS BID, (Reported) Glipizide 5 Mg Tablet, 5 MG PO BID, (Reported) Glycerin/Propylene Glycol 15 Ml Drops, 1 DROP OU QID PRN for DRY EYES, (Reported ) Ipratropium/Albuterol Sulfate 3 Ml Ampul.neb, 3 ML IH TID, (Reported) Levocetirizine Dihydrochloride 5 Mg Tablet, 5 MG PO HS, (Reported) Metformin HCl 500 Mg Tablet, 250 MG PO DAILY PRN for BS ABOVE 200, (Reported) Mirabegron 25 Mg Tab.er.24h, 25 MG PO 1700, (Reported) Montelukast Sodium 10 Mg Tablet, 10 MG PO 1700, (Reported) Multivitamin 1 Each Tablet, 1 TAB PO DAILY, (Reported) Nystatin 15 Gm Cream..g., TOP HS, (Reported) Nystatin 15 Gm Powder, 15 GM TP BID PRN for RASH Prescribed by: CEASAR CASTILLO on 03/06/181852 Pregabalin 100 Mg Capsule, 100 MG PO TID, (Reported) Ranitidine HCl 150 Mg Tablet, 150 MG PO BID, (Reported) Rivastigmine 1 Each Patch.td24, 4.6 MG TD DAILY, (Reported) Tramadol HCl 50 Mg Tablet, 50 MG PO BID, (Reported) Triamcinolone Acet 15 Gm Cr, TP HS, (Reported) Vilazodone Hydrochloride 10 Mg Tablet, 10 MG PO HS, (Reported) Patient Home Medication List Home Medication List Reviewed: Yes (NELY MCCABE MD) Review of Systems Review of Systems Constitutional: see HPI; No chills, No fever EENTM: nose congestion, throat pain Respiratory: cough, short of breath Cardiovascular: No chest pain; edema Gastrointestinal: No abdominal pain, No nausea, No vomiting Genitourinary: no symptoms reported Musculoskeletal: no symptoms reported Skin: see HPI, change in color, lesions Psychiatric/Neurological: Denies Headache, Denies Weakness Hematologic/Lymphatic: No Symptoms Reported (NELY MCCABE MD) All Other Systems Reviewed Negative Unless Noted: Yes (NELY MCCABE MD) Past Rklfkwx-Mgtnan-Bestro Hx Past Med/Social Hx: Reviewed Nursing Past Med/Soc Hx (NELY MCCABE MD) Patient Social History Alcohol Use: Denies Use Recreational Drug Use: No Smoking Status: Former Smoker Type Used: Cigars, Cigarettes Former Smoker, Quit: Mar 31, 1966 2nd Hand Smoke Exposure: No Recent Foreign Travel: No Contact w/Someone Who Travel: No Recent Infectious Disease Expo: No Recent Hopitalizations: No Physical Abuse: No Sexual Abuse: No Fear: No (NELY MCCABE MD) Immunizations Up To Date Tetanus Booster (TDap): Unknown PED Vaccines UTD: No Date of Pneumonia Vaccine: Mar 31, 2016 Date of Influenza Vaccine: Dec 19, 2016 (NELY MCCABE MD) Seasonal Allergies Seasonal Allergies: Yes (NELY MCCABE MD) Past Medical History Surgeries: Yes (RIGHT EYELID BASAL CELL CANCER, HERNIA REPAIR) Abdominal, Adenoidectomy, Eye Surgery, Prostatectomy, Tonsillectomy Respiratory: Yes (O2 DEPENDENT AT 3L/NC CONTINUOUSLY) Pneumonia, Chronic Bronchitis, COPD, Emphysema Currently Using CPAP: No Currently Using BIPAP: No Cardiac: Yes Chronic Edema/Swelling, High Cholesterol, Hypertension Neurological: Yes Dementia Reproductive Disorders: No Sexually Transmitted Disease: No HIV/AIDS: No Genitourinary: Yes (PROSTATE CANCER > 10 YEARS AGO) Prostate Problems, Kidney Stones Gastrointestinal: Yes Abdominal Hernia, Gastroesophageal Reflux, Polyps, Hiatal Hernia Musculoskeletal: Yes Degenerate Disk Disease, Osteoporosis, Arthritis, Chronic Back Pain Endocrine: Yes Diabetes, Non-Insulin dep HEENT: Yes Cataract Loss of Vision: Right Hearing Impairment: Denies Cancer: Yes (PROSTATE CANCER, BASAL CELL CANCER OF RIGHT EYE) Prostate, Skin Did You Recieve Any Treatments: Yes What Type of Treatment Did You: Surgical Intervention Psychosocial: Yes Anxiety, Depression Integumentary: Yes (SKIN CANCER; PRESSURE ULCER LEFT BUTTOCK) Blood Disorders: No Adverse Reaction/Blood Tranf: No (NELY MCCABE MD) Family Medical History Reviewed Nursing Family Hx (NELY MCCABE MD) FH: breast cancer G8 SISTER Myocardial infarction 19 FATHER Heart Disease, Lung Disease (NELY MCCABE MD) Physical Exam-Suspected Sepsis Physical Exam Vital Signs Vital Signs - First Documented 07/13/18 10:34 Temp 97.8 Pulse 84 Resp 20 B/P (MAP) 132/64 (86) Pulse Ox 93 O2 Delivery Nasal Cannula O2 Flow Rate 3.00 (TOMMY BONILLA MD) Vital Signs Capillary Refill : Less Than 3 Seconds (NELY MCCABE MD) Blood Pressure Mean: 86 Height, Weight, BMI Height: 6'0" Weight: 247lbs. 6.0oz. [id number]; 30.6 BMI Method:Stated General Appearance: No Apparent Distress, WD/WN HEENT: PERRL/EOMI, Pharyngeal Erythema, Other (bilateral nasal congestion) Neck: Non Tender, Supple Respiratory: Lungs Clear, Normal Breath Sounds Cardiovascular: Regular Rate, Rhythm, No Murmur Gastrointestinal: Non Tender, Soft Back: Normal Inspection, No CVA Tenderness, No Vertebral Tenderness Extremity: Normal Range of Motion, Non Tender Neurologic/Psychiatric: Alert, Oriented x3 Skin: normal color, warm/dry (NELY MCCABE MD) Focused Exam Lactate Level 07/13/18 11:38: Lactic Acid Level 1.81 (TOMMY BONILLA MD) Lactic Acid Level Laboratory Tests Test 07/13/18 11:38 Lactic Acid Level 1.81 MMOL/L (0.50-2.00) (TOMMY BONILLA MD) Progress/Results/Core Measures Suspected Sepsis Recent Fever Within 48 Hours: No Infection Criteria Present: None New/Unexplained Altered Menta: No Sepsis Screen: No Definite Risk SIRS Temperature:97.8 Pulse: 84 Respiratory Rate: 20 Laboratory Tests 07/13/18 10:55: White Blood Count 5.7 Blood Pressure 132 /64 Mean: 86 07/13/18 10:37: Laboratory Tests 07/13/18 10:37: 07/13/18 10:55: INR Comment 1.0, Platelet Count 208 (NELY MCCABE MD) Results/Orders Lab Results Laboratory Tests Test 07/13/18 10:55 07/13/18 11:38 07/13/18 12:00 Range/Units White Blood Count 5.7 4.3-11.0 10^3/uL Red Blood Count 3.99 L 4.35-5.85 10^6/uL Hemoglobin 11.6 L 13.3-17.7 G/DL Hematocrit 36 L 40-54 % Mean Corpuscular Volume 90 80-99 FL Mean Corpuscular Hemoglobin 29 25-34 PG Mean Corpuscular Hemoglobin Concent 32 32-36 G/DL Red Cell Distribution Width 13.5 10.0-14.5 % Platelet Count 208 130-400 10^3/uL Mean Platelet Volume 10.5 H 7.4-10.4 FL Neutrophils (%) (Auto) 46 42-75 % Lymphocytes (%) (Auto) 34 12-44 % Monocytes (%) (Auto) 16 H 0-12 % Eosinophils (%) (Auto) 4 0-10 % Basophils (%) (Auto) 0 0-10 % Neutrophils # (Auto) 2.6 1.8-7.8 X 10^3 Lymphocytes # (Auto) 1.9 1.0-4.0 X 10^3 Monocytes # (Auto) 0.9 0.0-1.0 X 10^3 Eosinophils # (Auto) 0.2 0.0-0.3 10^3/uL Basophils # (Auto) 0.0 0.0-0.1 10^3/uL Prothrombin Time 13.8 12.2-14.7 SEC INR Comment 1.0 0.8-1.4 Activated Partial Thromboplast Time 31 24-35 SEC B-Type Natriuretic Peptide < 10.0 <100.0 PG/ML Sodium Level 138 135-145 MMOL/L Potassium Level 4.4 3.6-5.0 MMOL/L Chloride Level 103 98-107 MMOL/L Carbon Dioxide Level 26 21-32 MMOL/L Anion Gap 9 5-14 MMOL/L Blood Urea Nitrogen 9 7-18 MG/DL Creatinine 0.89 0.60-1.30 MG/DL Estimat Glomerular Filtration Rate > 60 BUN/Creatinine Ratio 10 Glucose Level 85 70-105 MG/DL Lactic Acid Level 1.81 0.50-2.00 MMOL/L Calcium Level 9.2 8.5-10.1 MG/DL Corrected Calcium 9.1 8.5-10.1 MG/DL Total Bilirubin 0.5 0.1-1.0 MG/DL Aspartate Amino Transf (AST/SGOT) 45 H 5-34 U/L Alanine Aminotransferase (ALT/SGPT) 41 0-55 U/L Alkaline Phosphatase 66 40-136 U/L Total Protein 6.6 6.4-8.2 GM/DL Albumin 4.1 3.2-4.5 GM/DL Urine Color YELLOW Urine Clarity CLEAR Urine pH 5 5-9 Urine Specific [place] 1.015 L 1.016-1.022 Urine Protein NEGATIVE NEGATIVE Urine Glucose (UA) NEGATIVE NEGATIVE Urine Ketones NEGATIVE NEGATIVE Urine Nitrite NEGATIVE NEGATIVE Urine Bilirubin NEGATIVE NEGATIVE Urine Urobilinogen NORMAL NORMAL MG/DL Urine Leukocyte Esterase NEGATIVE NEGATIVE Urine RBC (Auto) NEGATIVE NEGATIVE Urine RBC NONE /HPF Urine WBC NONE /HPF Urine Squamous Epithelial Cells NONE /HPF Urine Crystals NONE /LPF Urine Bacteria NEGATIVE /HPF Urine Casts NONE /LPF Urine Mucus NEGATIVE /LPF Urine Culture Indicated CULTURE PENDING (TOMMY BONILLA MD) Vital Signs/I&O 07/13/18 07/13/18 10:34 11:00 Temp 97.8 Pulse 84 Resp 20 B/P (MAP) 132/64 (86) Pulse Ox 93 93 O2 Delivery Nasal Cannula Nasal Cannula O2 Flow Rate 3.00 3.00 (TOMMY BONILLA MD) Vital Signs/I&O Capillary Refill : Less Than 3 Seconds (NELY MCCABE MD) Blood Pressure Mean: 86 Progress Note : Progress Note Seen and evaluated. IV, labs, chest x-ray and UA ordered. Blood cultures and lactic acid. We will check BNP as well. Monitor patient. (NELY MCCABE MD) Departure Communication (Admissions) Assumed care from Dr. Mccabe at 1205. The chest x-ray and laboratory have returned. The white count is 5400. The BNP was 10. The chest x-ray was compatible with bibasilar atelectasis. The patient describes episodic nose bleeding from the right nostril. He uses home oxygen at 3 L/m. It is confirmed that he does use humidifier. Arrangements were made for him to be seen again in the wound care clinic Call Dr. Bobby's office for a follow-up appointment in approximately one week. (TOMMY BONILLA MD) Impression Primary Impression: bronchitis Disposition: HOME, SELF-CARE Condition: Stable/Unchanged Departure-Patient Inst. Decision time for Depature: 12:38 (TOMMY BONILLA MD) Referrals: TAMMY BOBBY DO (PCP) Primary Care Physician Add. Discharge Instructions: All discharge instructions reviewed with patient and/or family. Voiced understanding. Continue present regimen. Call Dr. Bobby's office for a follow-up appointment in 1 week. Wound care clinic appointment as scheduled. NELY MCCABE MD Jul 13, 2018 11:03 TOMMY BONILLA MD Jul 13, 2018 12:40
[2018-07-13 11:14] LABS: BASOPHILS % (AUTO) 0 % (0-10); EOSINOPHILS # (AUTO) 0.2 10^3/uL (0.0-0.3); EOSINOPHILS % (AUTO) 4 % (0-10); HEMATOCRIT 36 % (40-54); HEMOGLOBIN 11.6 G/DL (13.3-17.7); LYMPHOCYTES # (AUTO) 1.9 X 10^3 (1.0-4.0); LYMPHOCYTES % (AUTO) 34 % (12-44); MEAN CORPUSCULAR HEMOGLOBIN 29 PG (25-34); MEAN CORPUSCULAR HGB CONC 32 G/DL (32-36); MEAN CORPUSCULAR VOLUME 90 FL (80-99); MEAN PLATELET VOLUME 10.5 FL (7.4-10.4); MONOCYTES # (AUTO) 0.9 X 10^3 (0.0-1.0); MONOCYTES % (AUTO) 16 % (0-12); NEUTROPHILS # (AUTO) 2.6 X 10^3 (1.8-7.8); NEUTROPHILS % (AUTO) 46 % (42-75); PLATELET COUNT 208 10^3/uL (130-400); RED CELL DISTRIBUTION WIDTH 13.5 % (10.0-14.5); WHITE BLOOD COUNT 5.7 10^3/uL (4.3-11.0)
[2018-07-13 11:28] LABS: PROTHROMBIN TIME PATIENT 13.8 SEC (12.2-14.7)
--- NOTE | 2018-07-13 11:55 | Diagnostic Imaging Report ---
INDICATION: Pneumonia. TIME OF EXAM: 11:23 a.m. COMPARISON: Correlation is made with prior chest from 01/05/2018. FINDINGS: The heart size is stable. There appear to be linear regions of increased density in both lung bases, slightly greater on the right compared to the left, consistent with some scarring or atelectasis. Infiltrate cannot be entirely excluded in the right base. Mid and upper lung moreno are clear. No definite effusion or pneumothorax is seen. IMPRESSION: There are areas of bibasilar infiltrate or atelectasis. The study is otherwise unremarkable. Dictated by: Dictated on workstation # [id number]
[2018-07-13 12:02] LABS: ALANINE AMINOTRANSFERASE 41 U/L (0-55); ALBUMIN 4.1 GM/DL (3.2-4.5); ALKALINE PHOSPHATASE 66 U/L (40-136); BILIRUBIN,TOTAL 0.5 MG/DL (0.1-1.0); BUN/CREATININE RATIO 10; CALCIUM 9.2 MG/DL (8.5-10.1); CARBON DIOXIDE 26 MMOL/L (21-32); CHLORIDE 103 MMOL/L (98-107); CREATININE SERUM 0.89 MG/DL (0.60-1.30); GFR ESTIMATED > 60; GLUCOSE 85 MG/DL (70-105); POTASSIUM 4.4 MMOL/L (3.6-5.0); SODIUM 138 MMOL/L (135-145); TOTAL PROTEIN 6.6 GM/DL (6.4-8.2)
[2018-07-13 12:14] LABS: BILIRUBIN,URINE NEGATIVE (NEGATIVE); CLARITY,URINE CLEAR; COLOR,URINE YELLOW; GLUCOSE, URINE (UA) NEGATIVE (NEGATIVE); KETONES,URINE NEGATIVE (NEGATIVE); LEUKOCYTE ESTERASE ,URINE NEGATIVE (NEGATIVE); NITRITE,URINE NEGATIVE (NEGATIVE); PH,URINE 5 (5-9); PROTEIN,URINE NEGATIVE (NEGATIVE); UROBILINOGEN,URINE NORMAL (NORMAL)
[2018-07-13 12:22] LABS: BACTERIA,URINE NEGATIVE /HPF
[2018-07-13 12:59] VITALS: BP 134/76
== END 2018-07-13 12:49 | disposition home or self-care (01) ==
LOC: EDUNIT# 10:13 → ER 10:14
DX: J40 Bronchitis, not specified as acute or chronic (principal); J43.9 Emphysema, unspecified; E78.00 Pure hypercholesterolemia, unspecified; I10 Essential (primary) hypertension; F03.90 Unspecified dementia, unspecified severity, without behavioral disturbance, psychotic disturbance, mood disturbance, and anxiety; K21.9 Gastro-esophageal reflux disease without esophagitis; F41.9 Anxiety disorder, unspecified; F32.9 Major depressive disorder, single episode, unspecified; M81.0 Age-related osteoporosis without current pathological fracture; Z85.46 Personal history of malignant neoplasm of prostate; Z86.010 Personal history of colon polyps; Z87.442 Personal history of urinary calculi; Z82.49 Family history of ischemic heart disease and other diseases of the circulatory system; Z80.3 Family history of malignant neoplasm of breast; Z87.19 Personal history of other diseases of the digestive system; Z99.81 Dependence on supplemental oxygen; Z88.1 Allergy status to other antibiotic agents; Z88.5 Allergy status to narcotic agent; Z88.6 Allergy status to analgesic agent; Z88.8 Allergy status to other drugs, medicaments and biological substances; Z79.02 Long term (current) use of antithrombotics/antiplatelets; Z79.4 Long term (current) use of insulin; Z79.51 Long term (current) use of inhaled steroids; Z87.891 Personal history of nicotine dependence; Z90.89 Acquired absence of other organs; Z85.828 Personal history of other malignant neoplasm of skin; Z90.79 Acquired absence of other genital organ(s); Z87.01 Personal history of pneumonia (recurrent)
CPT/HCPCS: 36415; 71045; 80053; 81000; 83605; 83880; 85025; 85610; 85730; 87040; 87088

== ENCOUNTER → 2018-07-14 | Outpatient (CLI) | payer MEDICARE, MEDICAID | LOC: WOUNDCARE 12:54 | PROVIDERS: ATTEND Surgery | DX: R21 Rash and other nonspecific skin eruption (principal); R54 Age-related physical debility; Z87.891 Personal history of nicotine dependence | CPT/HCPCS: 99213 ==

== ENCOUNTER 2018-09-07 22:29 | Emergency (ER) | payer MEDICARE, MEDICAID ==
[~2018-09-07] VITALS: Ht 172.7 cm; Wt 113.4 kg
--- OUTSIDE RECORDS SUMMARY | 2018-09-07 22:35 | XMS REPORT | Clinical Summary ---
Author Author [facility] Organization [facility] Address Unknown Phone Unavailable Care Team Providers Care Line Installer Repairer Name Role Phone PCP Unavailable Allergies Not [...]
[2018-09-07 22:46] LABS: HEMOGLOBIN 11.8 G/DL (13.3-17.7); MEAN PLATELET VOLUME 9.2 FL (7.4-10.4); RED CELL DISTRIBUTION WIDTH 13.3 % (10.0-14.5); WHITE BLOOD COUNT 6.4 10^3/uL (4.3-11.0)
[2018-09-07 22:56] LABS: PROTHROMBIN TIME PATIENT 13.9 SEC (12.2-14.7)
--- NOTE | 2018-09-07 23:13 | ED EENT ---
History of Present Illness General Chief Complaint: Nasal Problems Stated Complaint: NOSE BLEED Nursing Triage Note: pt verbalized using bathroom "strained to hard" nose started bleeding. bleeding had subsided prior to patients arrival Source: patient (LIMITED HISTORIAN--PT WITH DEMENTIA), old records History of Present Illness Date Seen by Provider: Sep 07, 2018 Time Seen by Provider: 22:30 Initial Comments PT ARRIVES VIA EMS FROM HOME. 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 DAVENPORT PT TAKES PLAVIX AND STATES HE WAS TOLD TO STOP IT FOR A WEEK. PT ALSO WEARS HOME O2 AT 3L/NC PCP: DR. BOBBY Allergies and Home Medications Allergies Coded Allergies: Serotonin 5HT-3 Antagonists (Unverified Allergy, Unknown, 11/25/17) Tricyclic Compounds (Unverified Allergy, Unknown, 11/25/17) codeine (Verified Allergy, Unknown, 04/07/06) hydrocodone (Unverified Allergy, Unknown, 10/16/15) aspirin (Unverified Adverse Reaction, Mild, STOMACH IRRITATION, 11/25/17) Home Medications Amlodipine Besylate 10 Mg Tablet, 10 MG PO HS, (Reported) Atorvastatin Calcium 40 Mg Tablet, 40 MG PO HS, (Reported) Azithromycin 250 Mg Tablet, 250 MG PO DAILY Prescribed by: KRISTIAN LOCKHART on 11/25/17 1214 Benzonatate 100 Mg Capsule, 100 MG PO HS, (Reported) Cephalexin 500 Mg Capsule, 500 MG PO TID Prescribed by: CEASAR CASTILLO on 03/06/18 1828 Cetirizine HCl 10 Mg Tablet, 10 MG PO DAILY, (Reported) Clonazepam 1 Mg Tablet, 1 MG PO TID, (Reported) Clopidogrel Bisulfate 75 Mg Tablet, 75 MG PO HS, (Reported) Doxazosin Mesylate 4 Mg Tablet, 4 MG PO HS, (Reported) Fluconazole 150 Mg Tablet, 150 MG PO UD Prescribed by: CEASAR CASTILLO on 03/06/18 185 Fluticasone Propionate 16 Gm [place].susp, 1 SPRAY NS BID, (Reported) Glipizide 5 Mg Tablet, 5 MG PO BID, (Reported) Glycerin/Propylene Glycol 15 Ml Drops, 1 DROP OU QID PRN for DRY EYES, (Reported) Ipratropium/Albuterol Sulfate 3 Ml Ampul.neb, 3 ML IH TID, (Reported) Levocetirizine Dihydrochloride 5 Mg Tablet, 5 MG PO HS, (Reported) Metformin HCl 500 Mg Tablet, 250 MG PO DAILY PRN for BS ABOVE 200, (Reported) Mirabegron 25 Mg Tab.er.24h, 25 MG PO 1700, (Reported) Montelukast Sodium 10 Mg Tablet, 10 MG PO 1700, (Reported) Multivitamin 1 Each Tablet, 1 TAB PO DAILY, (Reported) Nystatin 15 Gm Cream..g., TOP HS, (Reported) Nystatin 15 Gm Powder, 15 GM TP BID PRN for RASH Prescribed by: CEASAR CASTILLO on 03/06/181852 Pregabalin 100 Mg Capsule, 100 MG PO TID, (Reported) Ranitidine HCl 150 Mg Tablet, 150 MG PO BID, (Reported) Rivastigmine 1 Each Patch.td24, 4.6 MG TD DAILY, (Reported) Tramadol HCl 50 Mg Tablet, 50 MG PO BID, (Reported) Triamcinolone Acet 15 Gm Cr, TP HS, (Reported) Vilazodone Hydrochloride 10 Mg Tablet, 10 MG PO HS, (Reported) Patient Home Medication List Home Medication List Reviewed: Yes Review of Systems Review of Systems Constitutional: no symptoms reported Nose: see HPI Mouth: no symptoms reported Throat: no symptoms reported Respiratory: no symptoms reported Hematologic/Lymphatic: See HPI Past Esichsd-Jtxbpi-Gtxlie Hx Patient Social History Alcohol Use: Denies Use Recreational Drug Use: No Smoking Status: Former Smoker Type Used: Cigars, Cigarettes Former Smoker, Quit: Mar 31, 1966 2nd Hand Smoke Exposure: No Recent Foreign Travel: No Contact w/Someone Who Travel: No Recent Infectious Disease Expo: No Recent Hopitalizations: No Immunizations Up To Date Tetanus Booster (TDap): Unknown PED Vaccines UTD: No Date of Pneumonia Vaccine: Mar 31, 2016 Date of Influenza Vaccine: Dec 19, 2016 Seasonal Allergies Seasonal Allergies: Yes Past Medical History Surgeries: Yes (RIGHT EYELID BASAL CELL CANCER, HERNIA REPAIR) Abdominal, Adenoidectomy, Eye Surgery, Prostatectomy, Tonsillectomy Respiratory: Yes (O2 DEPENDENT AT 3L/NC CONTINUOUSLY; MUJLTIPLE EPISODES OF PNEUMONIA) Pneumonia, Chronic Bronchitis, COPD, Emphysema Currently Using CPAP: No Currently Using BIPAP: No Cardiac: Yes Chronic Edema/Swelling, High Cholesterol, Hypertension Neurological: Yes Dementia Reproductive Disorders: No Sexually Transmitted Disease: No HIV/AIDS: No Genitourinary: Yes (PROSTATE CANCER > 10 YEARS AGO) Prostate Problems, Kidney Stones Gastrointestinal: Yes Abdominal Hernia, Gastroesophageal Reflux, Polyps, Hiatal Hernia Musculoskeletal: Yes (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--MARKED FLEXION OF NECK ) Degenerate Disk Disease, Osteoporosis, Arthritis, Chronic Back Pain Endocrine: Yes Diabetes, Non-Insulin dep HEENT: Yes Cataract Loss of Vision: Right Hearing Impairment: Denies Cancer: Yes (PROSTATE CANCER, BASAL CELL CANCER OF RIGHT EYE) Prostate, Skin Did You Recieve Any Treatments: Yes What Type of Treatment Did You: Surgical Intervention Psychosocial: Yes Anxiety, Depression Integumentary: Yes (SKIN CANCER; PRESSURE ULCER LEFT BUTTOCK) Blood Disorders: No Adverse Reaction/Blood Tranf: No Family Medical History FH: breast cancer G8 SISTER Myocardial infarction 19 FATHER Heart Disease, Lung Disease Physical Exam Vital Signs Vital Signs - First Documented 09/07/18 09/07/18 22:35 23:00 Temp 98.3 Pulse 87 Resp 18 B/P (MAP) 138/74 (95) Pulse Ox 91 O2 Delivery Room Air O2 Flow Rate 3.00 FiO2 89 Height, Weight, BMI Height: 5'8.00" Weight: 250lbs. 6.0oz. [id number]; 30.6 BMI Method:Estimated General Appearance: WD/WN, no apparent distress Nose: other (SMALL AMOUNT OF DRIED BLOOD IN RIGHT NARE, NO ACTIVE BLEEDING AND NO CLOTS . ) Respiratory: no respiratory distress Neurologic/Psychiatric: no motor/sensory deficits (GROSSLY INTACT), alert, other (DROWSY--PT 'S NORMAL BASELINE) Skin: warm/dry Procedures/Interventions Nasal : Nasal Location: Right Inspection with: Otoscope Nasal Procedures: Rapid Rhino (4.5 CM ) Progress NO BLEEDING DURING ER STAY Progress/Results/Core Measures Results/Orders Lab Results Laboratory Tests Test 09/07/18 22:35 Range/Units White Blood Count 6.4 4.3-11.0 10^3/uL Red Blood Count 4.15 L 4.35-5.85 10^6/uL Hemoglobin 11.8 L 13.3-17.7 G/DL Hematocrit 37 L 40-54 % Mean Corpuscular Volume 90 80-99 FL Mean Corpuscular Hemoglobin 28 25-34 PG Mean Corpuscular Hemoglobin Concent 32 32-36 G/DL Red Cell Distribution Width 13.3 10.0-14.5 % Platelet Count 187 130-400 10^3/uL Mean Platelet Volume 9.2 7.4-10.4 FL Prothrombin Time 13.9 12.2-14.7 SEC INR Comment 1.0 0.8-1.4 Activated Partial Thromboplast Time 31 24-35 SEC My Orders Orders - ROBBY LEWIS DO Cbc No Diff (09/07/18 22:41) Protime With Inr (09/07/18 22:41) Partial Thromboplastin Time (09/07/18 22:41) Vital Signs/I&O 09/07/18 09/07/18 09/07/18 22:35 23:00 23:34 Temp 98.3 98.3 Pulse 87 82 Resp 18 18 B/P (MAP) 138/74 (95) 128/63 (84) Pulse Ox 91 91 O2 Delivery Room Air Nasal Cannula Nasal Cannula O2 Flow Rate 3.00 3.00 FiO2 89 Blood Pressure Mean: 95 Departure Impression Primary Impression: Right-sided epistaxis Additional Impression: PLAVIX THERAPY Disposition: 01 HOME, SELF-CARE Condition: Stable Departure-Patient Inst. Referrals: DEBBIE DAVENPORT MD, RICHARD A DO (PCP/Family) Primary Care Physician Patient Instructions: Nosebleeds (DC) Add. Discharge Instructions: LEAVE NASAL PACKING IN PLACE DO NOT BLOW OR RUB NOSE FOLLOW UP WITH DR. DAVENPORT THIS WEEK FOR FURTHER CARE All discharge instructions reviewed with patient and/or family. Voiced understanding. ROBBY LEWIS DO Sep 07, 2018 23:13
[2018-09-07 23:34] VITALS: BP 128/63
== END 2018-09-07 23:33 | disposition home or self-care (01) ==
LOC: EDUNIT# 22:29 → ER 22:30
DX: R04.0 Epistaxis (principal); J43.9 Emphysema, unspecified; E78.00 Pure hypercholesterolemia, unspecified; I10 Essential (primary) hypertension; F03.90 Unspecified dementia, unspecified severity, without behavioral disturbance, psychotic disturbance, mood disturbance, and anxiety; K21.9 Gastro-esophageal reflux disease without esophagitis; M81.0 Age-related osteoporosis without current pathological fracture; E11.9 Type 2 diabetes mellitus without complications; F41.9 Anxiety disorder, unspecified; F32.9 Major depressive disorder, single episode, unspecified; Z86.010 Personal history of colon polyps; Z87.442 Personal history of urinary calculi; Z82.49 Family history of ischemic heart disease and other diseases of the circulatory system; Z85.46 Personal history of malignant neoplasm of prostate; Z85.828 Personal history of other malignant neoplasm of skin; Z88.8 Allergy status to other drugs, medicaments and biological substances; Z80.3 Family history of malignant neoplasm of breast; Z88.1 Allergy status to other antibiotic agents; Z88.5 Allergy status to narcotic agent; Z88.6 Allergy status to analgesic agent; Z79.02 Long term (current) use of antithrombotics/antiplatelets; Z79.51 Long term (current) use of inhaled steroids; Z79.4 Long term (current) use of insulin; Z87.891 Personal history of nicotine dependence; Z90.89 Acquired absence of other organs; Z90.79 Acquired absence of other genital organ(s); Z99.81 Dependence on supplemental oxygen; Z87.01 Personal history of pneumonia (recurrent)
CPT/HCPCS: 36415; 85027; 85610; 85730

== ENCOUNTER → 2018-11-23 | Outpatient (CLI) | payer MEDICARE, MEDICAID | LOC: CARD 13:53 | PROVIDERS: ATTEND Internal Medicine Cardiovascular Disease | DX: I65.29 Occlusion and stenosis of unspecified carotid artery (principal); I10 Essential (primary) hypertension; E78.2 Mixed hyperlipidemia | CPT/HCPCS: 93306 ==

== ENCOUNTER 2018-12-01 02:13 | Emergency (ER) | payer MEDICARE, MEDICAID ==
[~2018-12-01] VITALS: Ht 172.7 cm; Wt 113.4 kg
[2018-12-01] MEDS ORDERED: fentaNYL INJECTION 100 MCG/2 ML AMP IM ONE (06:15)
[2018-12-01] MEDS ORDERED: CEPH-507 PO (06:15)
[2018-12-01] MEDS ORDERED: CEPHALEXIN 250 MG (KEFLEX) CAP PO ONE (06:15)
--- NOTE | 2018-12-01 06:15 | ED General ---
General Chief Complaint: Rect Problems Stated Complaint: RECTAL PAIN,ULCER Nursing Triage Note: TO ED [facility]IA [facility] WITH C/O RECTAL PAIN FOR APPROX A WEEK. STATES HE FEELS LIKE THE "PAIN IS INSIDE", DID HAVE BOWEL MOVEMENT YESTERDAY MORNING BUT IT WAS NOT PAINFUL. Nursing Sepsis Screen: No Definite Risk Source of Information: Patient Exam Limitations: No Limitations History of Present Illness Date Seen by Provider: Dec 01, 2018 Time Seen by Provider: 02:20 Initial Comments This 83-year-old gentleman presents to the emergency room with complaints of sacral and buttocks pain. He has mobility issues and has evidence of pressure wound. This area also appears excoriated. He complains of a burning pain in this area. He arrives via EMS. Allergies and Home Medications Allergies Coded Allergies: Serotonin 5HT-3 Antagonists (Unverified Allergy, Unknown, 11/25/17) Tricyclic Compounds (Unverified Allergy, Unknown, 11/25/17) codeine (Verified Allergy, Unknown, 04/07/06) hydrocodone (Unverified Allergy, Unknown, 10/16/15) aspirin (Unverified Adverse Reaction, Mild, STOMACH IRRITATION, 11/25/17) Home Medications Amlodipine Besylate 10 Mg Tablet, 10 MG PO HS, (Reported) Atorvastatin Calcium 40 Mg Tablet, 40 MG PO HS, (Reported) Azithromycin 250 Mg Tablet, 250 MG PO DAILY Prescribed by: KRISTIAN LOCKHART on 11/25/17 1214 Benzonatate 100 Mg Capsule, 100 MG PO HS, (Reported) Cephalexin 500 Mg Capsule, 500 MG PO TID Prescribed by: CEASAR CASTILLO on 03/06/18 1828 Cephalexin 500 Mg Capsule, 500 MG PO QID Prescribed by: CEASAR CASTILLO on 12/01/18 0615 Cetirizine HCl 10 Mg Tablet, 10 MG PO DAILY, (Reported) Clonazepam 1 Mg Tablet, 1 MG PO TID, (Reported) Clopidogrel Bisulfate 75 Mg Tablet, 75 MG PO HS, (Reported) Doxazosin Mesylate 4 Mg Tablet, 4 MG PO HS, (Reported) Fluconazole 150 Mg Tablet, 150 MG PO UD Prescribed by: CEASAR CASTILLO on 03/06/18 185 Fluticasone Propionate 16 Gm [place].susp, 1 SPRAY NS BID, (Reported) Glipizide 5 Mg Tablet, 5 MG PO BID, (Reported) Glycerin/Propylene Glycol 15 Ml Drops, 1 DROP OU QID PRN for DRY EYES, (Reported) Ipratropium/Albuterol Sulfate 3 Ml Ampul.neb, 3 ML IH TID, (Reported) Levocetirizine Dihydrochloride 5 Mg Tablet, 5 MG PO HS, (Reported) Metformin HCl 500 Mg Tablet, 250 MG PO DAILY PRN for BS ABOVE 200, (Reported) Mirabegron 25 Mg Tab.er.24h, 25 MG PO 1700, (Reported) Montelukast Sodium 10 Mg Tablet, 10 MG PO 1700, (Reported) Multivitamin 1 Each Tablet, 1 TAB PO DAILY, (Reported) Nystatin 15 Gm Cream..g., TOP HS, (Reported) Nystatin 15 Gm Powder, 15 GM TP BID PRN for RASH Prescribed by: CEASAR CASTILLO on 03/06/181852 Pregabalin 100 Mg Capsule, 100 MG PO TID, (Reported) Ranitidine HCl 150 Mg Tablet, 150 MG PO BID, (Reported) Rivastigmine 1 Each Patch.td24, 4.6 MG TD DAILY, (Reported) Tramadol HCl 50 Mg Tablet, 50 MG PO BID, (Reported) Triamcinolone Acet 15 Gm Cr, TP HS, (Reported) Vilazodone Hydrochloride 10 Mg Tablet, 10 MG PO HS, (Reported) Patient Home Medication List Home Medication List Reviewed: Yes Review of Systems Review of Systems Constitutional: other (General debility) EENTM: no symptoms reported Respiratory: no symptoms reported Cardiovascular: no symptoms reported Gastrointestinal: no symptoms reported Genitourinary: no symptoms reported Musculoskeletal: no symptoms reported Skin: see HPI Psychiatric/Neurological: No Symptoms Reported Hematologic/Lymphatic: No Symptoms Reported Immunological/Allergic: no symptoms reported Past Disdddm-[place]-Tqsoas Hx Past Med/Social Hx: Reviewed Nursing Past Med/Soc Hx Patient Social History Alcohol Use: Denies Use Recreational Drug Use: No Type Used: Cigars, Cigarettes Former Smoker, Quit: Mar 31, 1966 2nd Hand Smoke Exposure: No Recent Foreign Travel: No Contact w/Someone Who Travel: No Recent Infectious Disease Expo: No Recent Hopitalizations: No Physical Abuse: No Sexual Abuse: No Mistreated: No Fear: No Immunizations Up To Date Tetanus Booster (TDap): Unknown PED Vaccines UTD: No Date of Pneumonia Vaccine: Mar 31, 2016 Date of Influenza Vaccine: Dec 19, 2016 Seasonal Allergies Seasonal Allergies: Yes Past Medical History Surgeries: Yes (RIGHT EYELID BASAL CELL CANCER, HERNIA REPAIR) Abdominal, Adenoidectomy, Eye Surgery, Prostatectomy, Tonsillectomy Respiratory: Yes (O2 DEPENDENT AT 3L/NC CONTINUOUSLY) Pneumonia, Chronic Bronchitis, COPD, Emphysema Currently Using CPAP: No Currently Using BIPAP: No Cardiac: Yes Chronic Edema/Swelling, High Cholesterol, Hypertension Neurological: Yes Dementia Reproductive Disorders: No Sexually Transmitted Disease: No HIV/AIDS: No Genitourinary: Yes (PROSTATE CANCER > 10 YEARS AGO) Prostate Problems, Kidney Stones Gastrointestinal: Yes Abdominal Hernia, Gastroesophageal Reflux, Polyps, Hiatal Hernia Musculoskeletal: Yes (KYPHOSIS) Degenerate Disk Disease, Osteoporosis, Arthritis, Chronic Back Pain Endocrine: Yes Diabetes, Non-Insulin dep HEENT: Yes Cataract Loss of Vision: Right Hearing Impairment: Denies Cancer: Yes (PROSTATE CANCER, BASAL CELL CANCER OF RIGHT EYE) Prostate, Skin Did You Recieve Any Treatments: Yes What Type of Treatment Did You: Surgical Intervention Psychosocial: Yes Anxiety, Depression Integumentary: Yes (SKIN CANCER; PRESSURE ULCER LEFT BUTTOCK) Blood Disorders: No Adverse Reaction/Blood Tranf: No Family Medical History FH: breast cancer G8 SISTER Myocardial infarction 19 FATHER Heart Disease, Lung Disease Physical Exam Vital Signs Vital Signs - First Documented 12/01/18 12/01/18 02:16 06:47 Temp 98.3 Pulse 75 Resp 20 B/P (MAP) 139/63 (88) Pulse Ox 92 O2 Delivery Nasal Cannula O2 Flow Rate 3.00 Capillary Refill : Less Than 3 Seconds Height, Weight, BMI Height: 5'8.00" Weight: 250lbs. 6.0oz. 113.712106se; 30.6 BMI Method:Estimated General Appearance: No Apparent Distress, WD/WN Eyes: Bilateral Eye Other (Chronic eye inflammation) HEENT: Normal ENT Inspection Respiratory: Lungs Clear, Normal Breath Sounds, No Accessory Muscle Use Cardiovascular: Regular Rate, Rhythm, No Murmur Neurologic/Psychiatric: Alert, Oriented x3, No Motor/Sensory Deficits, Normal Mood/Affect Skin: Warm/Dry, Other (There is a large area of red, inflamed skin over the sacral and superior buttock regions. There are some excoriations that appear as scratching. There is warm and blanching erythema suggestive of cellulitis or inflammation related to pressure ulcer.) Progress/Results/Core Measures Suspected Sepsis Recent Fever Within 48 Hours: No Infection Criteria Present: None New/Unexplained Altered Menta: No Sepsis Screen: No Definite Risk SIRS Temperature:98.3 Pulse: 75 Respiratory Rate: 20 Blood Pressure 139 /63 Mean: 88 Results/Orders My Orders Orders - CEASAR LUCAS MD Cephalexin Capsule (Keflex Capsule) (12/01/18 06:15) Fentanyl Injection (Sublimaze Injection (12/01/18 06:15) Medications Given in ED Current Medications Medications Dose Ordered Sig/Bernice Route Start Time Stop Time Status Last Admin Dose Admin Cephalexin HCl 500 mg ONCE ONCE PO 12/01/18 06:15 12/01/18 06:16 DC 12/01/18 06:30 500 MG Fentanyl Citrate 50 mcg ONCE ONCE IM 12/01/18 06:15 12/01/18 06:16 DC 12/01/18 06:30 50 MCG Vital Signs/I&O 12/01/18 12/01/18 02:16 06:47 Temp 98.3 98.3 Pulse 75 72 Resp 20 20 B/P (MAP) 139/63 (88) 131/60 (83) Pulse Ox 92 O2 Delivery Nasal Cannula O2 Flow Rate 3.00 3.00 Capillary Refill : Less Than 3 Seconds Blood Pressure Mean: 88 Progress Note : Progress Note Wounds were dressed with a protective pressure ulcer padding. He was started on Keflex with his first dose given in the ER. An injection of fentanyl was administered for pain. Departure Impression Primary Impression: Sacral decubitus ulcer Qualified Codes: L89.159 - Pressure ulcer of sacral region, unspecified stag e Additional Impression: Cellulitis Qualified Codes: L03.818 - Cellulitis of other sites Disposition: 01 HOME, SELF-CARE Condition: Improved Departure-Patient Inst. Decision time for Depature: 06:10 Referrals: TAMMY BOBBY DO (PCP/Family) Primary Care Physician Patient Instructions: Cellulitis (Skin Infection), Adult (DC), Pressure Sores (DC) Add. Discharge Instructions: Change positions frequently and avoid pressure on your sacral area. Talk to your primary care provider about possibly getting some assistance in the home for dressing changes or being referred to wound care at [facility]. Complete your antibiotics as prescribed. Follow-up with your primary care provider later this week. Return to care if you have any worsening symptoms. You may add Tylenol (acetaminophen) up to 1000 mg every 6 hours as needed to your usual Ultram pain medication. All discharge instructions reviewed with patient and/or family. Voiced understa nding. Scripts Cephalexin (Keflex) 500 Mg Capsule 500 MG PO QID, #30 CAP Prov: CEASAR LUCAS MD 12/01/18 Copy Copies To 1: TAMMY BOBBY JOSHUA T MD Dec 01, 2018 06:15
--- NOTE | 2018-12-01 06:40 | NUR ---
MIKHAIL VILLA TO LEFT BUTTOCKS.
[2018-12-01 06:47] VITALS: BP 131/60
== END 2018-12-01 06:53 | disposition home or self-care (01) ==
LOC: EDUNIT# 02:13 → ER 02:14
DX: L89.159 Pressure ulcer of sacral region, unspecified stage (principal); L03.317 Cellulitis of buttock; J43.9 Emphysema, unspecified; I10 Essential (primary) hypertension; E78.00 Pure hypercholesterolemia, unspecified; F03.90 Unspecified dementia, unspecified severity, without behavioral disturbance, psychotic disturbance, mood disturbance, and anxiety; K21.9 Gastro-esophageal reflux disease without esophagitis; M81.0 Age-related osteoporosis without current pathological fracture; F41.9 Anxiety disorder, unspecified; F32.9 Major depressive disorder, single episode, unspecified; Z80.3 Family history of malignant neoplasm of breast; Z85.828 Personal history of other malignant neoplasm of skin; Z86.010 Personal history of colon polyps; Z85.46 Personal history of malignant neoplasm of prostate; Z87.01 Personal history of pneumonia (recurrent); Z99.81 Dependence on supplemental oxygen; Z88.5 Allergy status to narcotic agent; Z88.8 Allergy status to other drugs, medicaments and biological substances; Z88.6 Allergy status to analgesic agent; Z79.84 Long term (current) use of oral hypoglycemic drugs; Z87.891 Personal history of nicotine dependence; Z90.89 Acquired absence of other organs
CPT/HCPCS: 99284

== ENCOUNTER → 2019-02-26 | Outpatient (CLI) | payer MEDICARE, MEDICAID ==
[2019-02-26 08:45] LABS: BUN/CREATININE RATIO 8; CREATININE SERUM 1.06 MG/DL (0.60-1.30); GFR ESTIMATED > 60
[2019-02-26 08:49] LABS: ABG BASE EXCESS 0.5 MMOL/L (-2.5-2.5); ABG OXYGEN SATURATION 89 % (94-100); ABG PCO2 47 MMHG (35-45); ABG PH 7.35 (7.37-7.43); ABG PO2 58 MMHG (79-93); ABG TCO2 26.9 MMOL/L (21.0-31.0)
[2019-02-26 08:50] LABS: ALLENS TEST YES-POS; INSPIRED O2 RA; PATIENT TEMP 36.8; VENTILATOR NO
== END ==
LOC: RT 08:14
PROVIDERS: ATTEND Nurse Practitioner Family
DX: J44.9 Chronic obstructive pulmonary disease, unspecified (principal); R91.1 Solitary pulmonary nodule
CPT/HCPCS: 36415; 36600; 82565; 82805; 84520

== ENCOUNTER → 2019-03-02 | Outpatient (CLI) | payer MEDICARE, MEDICAID ==
[~2019-03-02] MED LIST changes: +CATHETER FLUSH 10 ML SYR IV PRN; +HOLD METFORMIN - RECEIVED CONTRAST 20 ML VIAL IV SCH; +IOHEXOL 350 MG/ML 100 ML (OMNIPAQUE 350) VIAL IV ONE; +NS 100 ML (IVPB) BAG IV ONE
--- NOTE | 2019-03-02 16:59 | Diagnostic Imaging Report ---
CT CHEST W TECHNIQUE: Multiple contiguous axial images were obtained through the chest with the use of intravenous contrast. All CT scans use one or more of the following dose optimizing techniques: automated exposure control, MA and/or KvP adjustment based on a patient size and exam type, or iterative reconstruction. INDICATION: COPD, shortness of air, chest pain, productive cough. COMPARISON: CTA chest of 01/05/2018. FINDINGS: Lungs and airway: No endoluminal nodule within the trachea. No pulmonary mass or consolidation. Dependent atelectasis is present within the lower lobes. Scattered calcified pulmonary nodules are stable and due to old granulomatous infection. No pulmonary nodules that would be suspicious for neoplasm. Pleura: No pleural effusion or pneumothorax. Heart and mediastinum: No supraclavicular or axillary lymphadenopathy. No mediastinal lymphadenopathy. Calcified mediastinal lymph nodes are unchanged. Mildly enlarged right hilar lymph nodes are unchanged. No juxtaphrenic lymphadenopathy. Moderate-sized hiatal hernia is unchanged. Unchanged mild cardiomegaly. No pericardial effusion. Upper abdomen: Hepatic steatosis is again noted. Numerous calcified splenic and hepatic granulomas again noted. Musculoskeletal: No concerning focal osseous lesions. IMPRESSION: 1. No acute process in the chest. 2. No features of intrathoracic neoplasm. 3. A few mildly enlarged right hilar lymph nodes are stable and likely due to old granulomas infection with noncalcified lymph nodes. Dictated by: Dictated on workstation # [id number]
== END ==
LOC: RAD 13:13
PROVIDERS: ATTEND Nurse Practitioner Family
DX: J43.8 Other emphysema (principal); R91.1 Solitary pulmonary nodule
CPT/HCPCS: 71260

== ENCOUNTER 2019-08-04 00:41 | Emergency (ER) | payer MEDICARE, MEDICAID ==
[~2019-08-04] VITALS: Ht 182.8 cm; Wt 111.8 kg
[~2019-08-04 00:41] MED LIST changes: -ACET-2469 PO; +ACET-2715 PO; +ALBU2.5V4 NEB; +ATOR40TA PO; -CATHETER FLUSH 10 ML SYR IV PRN; -CETI10TA20 PO; +CETI10TA21 PO; -HOLD METFORMIN - RECEIVED CONTRAST 20 ML VIAL IV SCH; -IOHEXOL 350 MG/ML 100 ML (OMNIPAQUE 350) VIAL IV ONE; +LORA10TA7 PO; -MONT10TA24 PO; +MONT10TA26 PO; +MULT-406 PO; -NS 100 ML (IVPB) BAG IV ONE; +NYST1POW22 TOP; +OMG1KC PO; +ONDA-105 PO; -OXYB10TA PO; +OXYB10TA29 PO; -OXYB15TA PO; +OXYB15TA19 PO; +POLY238P10 PO; +PRED10TA22 PO; +TELM40TA6 PO; +TRAM50TA3 PO; +TRM50T PO
[2019-08-04 01:01] LABS: BASOPHILS % (AUTO) 0 % (0-10); EOSINOPHILS # (AUTO) 0.1 10^3/uL (0.0-0.3); EOSINOPHILS % (AUTO) 1 % (0-10); HEMATOCRIT 40 % (40-54); HEMOGLOBIN 12.9 G/DL (13.3-17.7); LYMPHOCYTES # (AUTO) 1.5 X 10^3 (1.0-4.0); LYMPHOCYTES % (AUTO) 23 % (12-44); MEAN CORPUSCULAR HEMOGLOBIN 29 PG (25-34); MEAN CORPUSCULAR HGB CONC 33 G/DL (32-36); MEAN CORPUSCULAR VOLUME 88 FL (80-99); MEAN PLATELET VOLUME 9.4 FL (7.4-10.4); MONOCYTES # (AUTO) 0.8 X 10^3 (0.0-1.0); MONOCYTES % (AUTO) 12 % (0-12); NEUTROPHILS # (AUTO) 4.2 X 10^3 (1.8-7.8); NEUTROPHILS % (AUTO) 64 % (42-75); PLATELET COUNT 187 10^3/uL (130-400); RED CELL DISTRIBUTION WIDTH 13.2 % (10.0-14.5); WHITE BLOOD COUNT 6.5 10^3/uL (4.3-11.0)
[2019-08-04 01:14] LABS: BILIRUBIN,URINE NEGATIVE (NEGATIVE); CLARITY,URINE CLOUDY; COLOR,URINE YELLOW; GLUCOSE, URINE (UA) NEGATIVE (NEGATIVE); KETONES,URINE NEGATIVE (NEGATIVE); LEUKOCYTE ESTERASE ,URINE NEGATIVE (NEGATIVE); NITRITE,URINE NEGATIVE (NEGATIVE); PROTEIN,URINE NEGATIVE (NEGATIVE)
[2019-08-04 01:16] LABS: ALBUMIN 4.4 GM/DL (3.2-4.5); CHLORIDE 103 MMOL/L (98-107); POTASSIUM 4.1 MMOL/L (3.6-5.0); SODIUM 138 MMOL/L (135-145)
[2019-08-04 01:17] LABS: AMYLASE 54 U/L (25-125)
[2019-08-04 01:18] LABS: CALCIUM 9.2 MG/DL (8.5-10.1)
[2019-08-04 01:19] LABS: GLUCOSE 173 MG/DL (70-105); TOTAL PROTEIN 7.3 GM/DL (6.4-8.2)
[2019-08-04 01:20] LABS: CARBON DIOXIDE 22 MMOL/L (21-32)
[2019-08-04 01:21] LABS: BILIRUBIN,TOTAL 0.5 MG/DL (0.1-1.0)
[2019-08-04 01:22] LABS: ALKALINE PHOSPHATASE 79 U/L (40-136); CREATININE SERUM 0.86 MG/DL (0.60-1.30); GFR ESTIMATED > 60
[2019-08-04 01:24] LABS: BUN/CREATININE RATIO 8
[2019-08-04 01:25] LABS: ALANINE AMINOTRANSFERASE 40 U/L (0-55)
[2019-08-04 01:26] LABS: LIPASE 32 U/L (8-78)
[2019-08-04 01:38] LABS: BACTERIA,URINE TRACE /HPF
[2019-08-04 01:39] LABS: SQUAMOUS EPITHELIAL CELL,UR 0-2 /HPF; YEAST,URINE MODERATE /HPF
[2019-08-04 01:41] LABS: RENAL EPITHELIAL CELLS,URINE RARE /HPF
--- NOTE | 2019-08-04 01:52 | ED Abdominal Pain ---
General Chief Complaint: Abdominal/GI Problems Stated Complaint: ABD PAIN Nursing Triage Note: MOVED CHAIR THIS AFTERNOON ON HIS FRONT PORCH AND FELT A PULL OR STRAIN IN HIS LOWER ABDOMEN. TONIGHT FELT MORE PAIN WHEN HE WENT TO LAY DOWN. 5/10 DULL PAIN WORSE WHEN LAYING DOWN. Sepsis Screen: No Definite Risk Source of Information: Patient, Old Records History of Present Illness Date Seen by Provider: August 04, 2019 Time Seen by Provider: 00:44 Initial Comments PT ARRIVES VIA EMS FROM HOME C/O LOWER ABDOMINAL PAIN SINCE 1600 THIS AFTERNOON, AFTER MOVING A RECLINER STATES HE "STRAINED HIS STOMACH MUSCLES" STATES HE WAS PUSHING AND PULLING ON THE RECLINER ON HIS FRONT PORCH, AND FELT A PULLING SENSATION IN HIS LOWER ABDOMEN STATES "I WASN'T SUPPOSED TO DO IT, BUT I DID IT ANYWAY" STATES PAIN IS WORSE WHEN HE LAYS DOWN NO NAUSEA/VOMITING/DIARRHEA/CONSTIPATION--HAS BEEN EATING AND DRINKING NORMALLY SINCE THIS OCCURRED NO FEVER NO URINARY SYMPTOMS NO COUGH OR CHEST PAIN OR SHORTNESS OF BREATH NO RECENT ILLNESS HAS CHRONIC CLEAR RUNNY NOSE HAS NOT TAKEN ANYTHING FOR PAIN, BUT STATES HE DOES HAVE TRAMADOL AT HOME. NO KNOWN SICK CONTACTS OR EXPOSURE TO COVID-19. PT WITH MULTITUDE OF VISITS FOR VARIOUS COMPLAINTS LAST ADMITTED IN MARCH WITH PNEUMONIA--PT DOES NOT HAVE ANY OF THOSE SYMPTOMS TODAY PT HAS HAD 4 PREVIOUS HERNIA REPAIRS--YEARS AGO PCP: JOANNE, POLLY BOOKER--USED TO SEE DR. BOBBY LABOR UTILIZATION SUPERINTENDENT: DR. SAINI Allergies and Home Medications Allergies Coded Allergies: Serotonin 5HT-3 Antagonists (Unverified Allergy, Unknown, 11/25/17) Tricyclic Compounds (Unverified Allergy, Unknown, 11/25/17) codeine (Verified Allergy, Unknown, 04/07/06) hydrocodone (Unverified Allergy, Unknown, 10/16/15) aspirin (Unverified Adverse Reaction, Mild, STOMACH IRRITATION, 11/25/17) Home Medications Albuterol Sulfate 2.5 Mg/3 Ml Vial.neb, 2.5 MG NEB DAILY PRN for SHORTNESS OF BREATH, (Reported) Albuterol Sulfate 2.5 Mg/3 Ml Vial.neb, 2.5 MG NEB TID, (Reported) Amlodipine Besylate 10 Mg Tablet, 10 MG PO HS, (Reported) Atorvastatin Calcium 40 Mg Tablet, 40 MG PO HS Prescribed by: KIMBERLY BRUNO on 04/24/19 1029 Azithromycin 250 Mg Tablet, 250 MG PO DAILY Prescribed by: KIMBERLY BRUNO on 04/24/19 1029 Benzonatate 200 Mg Capsule, 200 MG PO HS, (Reported) Cefdinir 300 Mg Capsule, 300 MG PO BID Prescribed by: KIMBERLY BRUNO on 04/24/19 1029 Clonazepam 1 Mg Tablet, 1 MG PO BID, (Reported) Clopidogrel Bisulfate 75 Mg Tablet, 75 MG PO DAILY, (Reported) Doxazosin Mesylate 4 Mg Tablet, 4 MG PO 1700, (Reported) Fluticasone Propionate 16 Gm [place].susp, 1 SPRAY NS BID, (Reported) Glipizide 5 Mg Tablet, 5 MG PO BID, (Reported) Glycerin/Propylene Glycol 15 Ml Drops, 1 DROP OU QID PRN for DRY EYES, (Reported) Guaifenesin/Dextromethorphan 5 Ml Syrup, 20 ML PO Q4H PRN for COUGH, (Reported) Levocetirizine Dihydrochloride 5 Mg Tablet, 5 MG PO HS, (Reported) Loratadine 10 Mg Tablet, 10 MG PO DAILY, (Reported) Metformin HCl 500 Mg Tablet, 250 MG PO DAILY PRN for BS ABOVE 145, (Reported) Mirabegron 25 Mg Tab.er.24h, 25 MG PO 1700, (Reported) Montelukast Sodium 10 Mg Tablet, 10 MG PO 1700, (Reported) Multivitamin with Minerals 1 Each Tablet, 1 TAB PO DAILY, (Reported) Nystatin 15 Gm Cream..g., TOP BID PRN for RASH, (Reported) Nystatin 1 Each Powder.ea., TOP BID PRN for RASH, (Reported) Procious 3 Polyunsat Fatty Acids 1,000 Mg Cap, 1,000 MG PO DAILY, (Reported) Ondansetron HCl 4 Mg Tablet, 4 MG PO BID, (Reported) Pantoprazole Sodium 40 Mg Tablet.dr, 40 MG PO DAILY, (Reported) Polyethylene Glycol 3350 238 Gm Powder, 17 GM PO HS, (Reported) Prednisone 10 Mg Tab.ds.pk, 10 MG PO DAILY Take 6 tabs(60mg)daily,decrease by 1 tab(10MG)daily. Prescribed by: KIMBERLY BRUNO on 04/24/19 1029 Pregabalin 100 Mg Capsule, 100 MG PO TID, (Reported) Ranitidine HCl 150 Mg Tablet, 150 MG PO BID, (Reported) Rivastigmine 1 Each Patch.td24, 4.6 MG TD DAILY, (Reported) Telmisartan 40 Mg Tablet, 40 MG PO DAILY, (Reported) Tramadol HCl 50 Mg Tablet, 50 MG PO TID, (Reported) Triamcinolone Acet 15 Gm Cr, TP HS, (Reported) Vilazodone Hydrochloride 10 Mg Tablet, 10 MG PO HS, (Reported) Patient Home Medication List Home Medication List Reviewed: Yes Review of Systems Review of Systems Constitutional: no symptoms reported EENTM: Other (CHRONIC CLEAR RUNNY NOSE) Respiratory: No Symptoms Reported; Denies Cough, Denies Shortness of Air, Denies Wheezing Cardiovascular: No Symptoms Reported; Denies Chest Pain, Denies Lightheadedness, Denies Palpitations, Denies Syncope Gastrointestinal: See HPI, Abdominal Pain; Denies Constipated, Denies Diarrhea, Denies Nausea, Denies Poor Appetite, Denies Poor Fluid Intake, Denies Vomiting Genitourinary: No Symptoms Reported Musculoskeletal: no symptoms reported Skin: no symptoms reported Psychiatric/Neurological: No Symptoms Reported Endocrine: No Symptoms Reported Hematologic/Lymphatic: No Symptoms Reported Past Hkvksbv-Jedbof-[id number] Hx Past Med/Social Hx: Reviewed and Corrections made Patient Social History Smoking Status: Former Smoker Type Used: Cigars, Cigarettes Former Smoker, Quit: Mar 31, 1966 2nd Hand Smoke Exposure: No Recent Foreign Travel: No Contact w/Someone Who Travel: No Recent Infectious Disease Expo: No Recent Hopitalizations: No Immunizations Up To Date Tetanus Booster (TDap): Unknown PED Vaccines UTD: No Date of Pneumonia Vaccine: Mar 31, 2016 Date of Influenza Vaccine: Dec 29, 2018 Seasonal Allergies Seasonal Allergies: Yes Past Medical History Surgeries: Yes (RIGHT EYELID BASAL CELL CANCER; HERNIA REPAIR X 4, PER PT ) Abdominal, Adenoidectomy, Eye Surgery, Prostatectomy, Tonsillectomy Respiratory: Yes (O2 DEPENDENT AT 3L/NC CONTINUOUSLY;MULTIPLE EPISODES OF PNEUMONIA) Pneumonia, Chronic Bronchitis, COPD, Emphysema Currently Using CPAP: No Currently Using BIPAP: No Cardiac: Yes Chronic Edema/Swelling, High Cholesterol, Hypertension Neurological: Yes Dementia Reproductive Disorders: No Sexually Transmitted Disease: No HIV/AIDS: No Genitourinary: Yes (PROSTATE CANCER > 10 YEARS AGO) Prostate Problems, Kidney Stones Gastrointestinal: Yes (S/P HERNIA REPAIR X 4, PER PT) Abdominal Hernia, Gastroesophageal Reflux, Chronic Constipation, Polyps, Hiatal Hernia Musculoskeletal: Yes (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) Degenerate Disk Disease, Osteoporosis, Arthritis, Chronic Back Pain Endocrine: Yes Diabetes, Non-Insulin dep HEENT: Yes (R EYELID BASAL CELL CANCER;SINUSITIS; NOSEBLEEDS) Cataract Loss of Vision: Right Hearing Impairment: Denies Cancer: Yes (PROSTATE CANCER, BASAL CELL CANCER OF RIGHT EYE) Prostate, Skin Did You Recieve Any Treatments: Yes What Type of Treatment Did You: Surgical Intervention Psychosocial: Yes Anxiety, Depression Integumentary: Yes (SKIN CANCER; PRESSURE ULCERS OF BUTTOCKS/SACRUM) Blood Disorders: No Adverse Reaction/Blood Tranf: No Family Medical History FH: breast cancer G8 SISTER Myocardial infarction 19 FATHER Heart Disease, Lung Disease CHRONIC GENERALIZED WEAKNESS, FREQUENT FALLS VERY POOR/VERY MINIMAL MOBILITY--HAS POWER CHAIR AND WALKER, WHICH HE HAS REFUSED TO USE AT HOME CHRONIC BILATERAL KNEE PAIN RIGHT EYELID BASAL 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 6.0oz. 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 DOES NOT APPEAR TO BE IN ANY DISCOMFORT OR DISTRESS) Respiratory: normal breath sounds, no respiratory distress, no accessory muscle use Cardiovascular: regular rate, rhythm, no murmur Gastrointestinal: soft; No distended, No guarding, No rebound; tenderness (VERY MILD INFRAUMBILICAL TENDERNESS. NO MASSES OR OBVIOUS HERNIA OR EXTERNAL EVIDENCE OF TRAUMA); No hernia, No mass Extremities: pedal edema (1+ BILATERALLY) Back: no CVA tenderness Neurologic/Psychiatric: patent paralegal II-XII nml as tested, no motor/sensory deficits, alert, normal mood/affect, oriented x 3 Skin: normal color, warm/dry Progress/Results/Core Measures Results/Orders Lab Results Laboratory Tests Test 08/04/19 00:49 08/04/19 01:05 Range/Units White Blood Count 6.5 4.3-11.0 10^3/uL Red Blood Count 4.50 4.35-5.85 10^6/uL Hemoglobin 12.9 L 13.3-17.7 G/DL Hematocrit 40 40-54 % Mean Corpuscular Volume 88 80-99 FL Mean Corpuscular Hemoglobin 29 25-34 PG Mean Corpuscular Hemoglobin Concent 33 32-36 G/DL Red Cell Distribution Width 13.2 10.0-14.5 % Platelet Count 187 130-400 10^3/uL Mean Platelet Volume 9.4 7.4-10.4 FL Neutrophils (%) (Auto) 64 42-75 % Lymphocytes (%) (Auto) 23 12-44 % Monocytes (%) (Auto) 12 0-12 % Eosinophils (%) (Auto) 1 0-10 % Basophils (%) (Auto) 0 0-10 % Neutrophils # (Auto) 4.2 1.8-7.8 X 10^3 Lymphocytes # (Auto) 1.5 1.0-4.0 X 10^3 Monocytes # (Auto) 0.8 0.0-1.0 X 10^3 Eosinophils # (Auto) 0.1 0.0-0.3 10^3/uL Basophils # (Auto) 0.0 0.0-0.1 10^3/uL Sodium Level 138 135-145 MMOL/L Potassium Level 4.1 3.6-5.0 MMOL/L Chloride Level 103 98-107 MMOL/L Carbon Dioxide Level 22 21-32 MMOL/L Anion Gap 13 5-14 MMOL/L Blood Urea Nitrogen 7 7-18 MG/DL Creatinine 0.86 0.60-1.30 MG/DL Estimat Glomerular Filtration Rate > 60 BUN/Creatinine Ratio 8 Glucose Level 173 H 70-105 MG/DL Calcium Level 9.2 8.5-10.1 MG/DL Corrected Calcium 8.9 8.5-10.1 MG/DL Total Bilirubin 0.5 0.1-1.0 MG/DL Aspartate Amino Transf (AST/SGOT) 42 H 5-34 U/L Alanine Aminotransferase (ALT/SGPT) 40 0-55 U/L Alkaline Phosphatase 79 40-136 U/L Total Protein 7.3 6.4-8.2 GM/DL Albumin 4.4 3.2-4.5 GM/DL Amylase Level 54 25-125 U/L Lipase 32 8-78 U/L Urine Color YELLOW Urine Clarity CLOUDY Urine pH 6.0 5-9 Urine Specific [place] 1.020 1.016-1.022 Urine Protein NEGATIVE NEGATIVE Urine Glucose (UA) NEGATIVE NEGATIVE Urine Ketones NEGATIVE NEGATIVE Urine Nitrite NEGATIVE NEGATIVE Urine Bilirubin NEGATIVE NEGATIVE Urine Urobilinogen 0.2 < = 1.0 MG/DL Urine Leukocyte Esterase NEGATIVE NEGATIVE Urine RBC (Auto) 1+ H NEGATIVE Urine RBC 5-10 H /HPF Urine WBC 2-5 /HPF Urine Squamous Epithelial Cells 0-2 /HPF Urine Renal Epithelial Cells RARE /HPF Urine Crystals NONE /LPF Urine Bacteria TRACE /HPF Urine Casts PRESENT /LPF Urine Waxy Casts 2-5 H /LPF Urine Mucus SMALL H /LPF Urine Yeast MODERATE H /HPF Urine Culture Indicated YES My Orders Orders - ROBBY LEWIS DO Amylase (08/04/19 00:50) Cbc With Automated Diff (08/04/19 00:50) Comprehensive Metabolic Panel (08/04/19 00:50) Lipase (08/04/19 00:50) Ua Culture If Indicated (08/04/19 00:50) Ed Iv/Invasive Line Start (08/04/19 00:50) Monitor-Rhythm Ecg Trace Only (08/04/19 00:50) Ct Abdomen/Pelvis W (08/04/19 01:11) Urine Culture (08/04/19 01:05) Iohexol Injection (Omnipaque 350 Mg/Ml 1 (08/04/19 02:00) Received Contrast (Hold Metformin- Contr (08/04/19 02:00) Ns (Ivpb) (Sodium Chloride 0.9% Ivpb Bag (08/04/19 02:00) Ketorolac Injection (Toradol Injection) (08/04/19 02:45) Ketorolac Injection (Toradol Injection) (08/04/19 02:36) Medications Given in ED Current Medications Medications Dose Ordered Sig/Bernice Route Start Time Stop Time Status Last Admin Dose Admin Iohexol 100 ml ONCE ONCE IV 08/04/19 02:00 08/04/19 02:40 DC 08/04/19 01:59 100 ML Ketorolac Tromethamine 30 mg STK-MED ONCE .ROUTE 08/04/19 02:36 08/04/19 02:43 DC 08/04/19 02:45 15 MG Sodium Chloride 80 ml ONCE ONCE IV 08/04/19 02:00 08/04/19 02:40 DC 08/04/19 02:00 80 ML Vital Signs/I&O 08/04/19 08/04/19 00:45 02:55 Temp 37.1 Pulse 98 84 Resp 20 24 B/P (MAP) 155/79 (104) 134/66 (104) Pulse Ox 95 94 O2 Delivery Nasal Cannula O2 Flow Rate 3.00 3.00 Blood Pressure Mean: 104 Progress Progress Note : Progress Note PT MOVES WITHOUT DIFFICULTY FROM SIT TO STAND, WITHOUT ANY EVIDENCE OF PAIN OR COMPLAINT OF PAIN IN ABDOMEN PT HAD NO COMPLAINTS DURING ENTIRE ER STAY Diagnostic Imaging Comments CT ABDOMEN/PELVIS--NO ACUTE PROCESS, HEPATOMEGALY, HIATAL HERNIA, DIVERTICULAR DISEASE-NO ACUTE DIVERTICULITIS, NON OBSTRUCTING LEFT RENAL STONE--PER [facility] VIA FAX AT [id number] Reviewed: Reviewed by Me Departure Impression Primary Impression: Abdominal wall strain Disposition: HOME, SELF-CARE Condition: Stable Departure-Patient Inst. Referrals: TAMMY BOBBY DO (PCP/Family) Primary Care Physician [facility] [place] Patient Instructions: Abdominal Muscle Strain (DC) Add. Discharge Instructions: CONTINUE YOUR REGULAR MEDICATIONS PRESCRIBED TAKE YOUR TRAMADOL NEEDED FOR PAIN FOLLOW UP WITH YOUR DR IN 1 WEEK IF NO BETTER All discharge instructions reviewed with patient and/or family. Voiced understanding. ROBBY LEWIS DO August 04, 2019 01:52
[2019-08-04] MEDS ORDERED: NS 100 ML (IVPB) BAG IV ONE (02:00)
[2019-08-04] MEDS ORDERED: IOHEXOL 350 MG/ML 100 ML (OMNIPAQUE 350) VIAL IV ONE (02:00)
[2019-08-04] MEDS ORDERED: HOLD METFORMIN - RECEIVED CONTRAST 20 ML VIAL IV SCH (02:00)
[2019-08-04] MEDS ORDERED: KETOROLAC 30 MG/ML VIAL ONE (02:36)
[2019-08-04] MEDS ORDERED: KETOROLAC 15 MG/ML VIAL IVP ONE (02:45)
[2019-08-04 02:55] VITALS: BP 134/66
--- NOTE | 2019-08-04 07:05 | Diagnostic Imaging Report ---
PROCEDURE: CT abdomen and pelvis with contrast. TECHNIQUE: Multiple contiguous axial images were obtained through the abdomen and pelvis after administration of intravenous contrast. Auto Exposure Controls were utilized during the CT exam to meet ALARA standards for radiation dose reduction. INDICATION: Abdominal pain. FINDINGS: Mild atelectasis noted in the lung bases. There is hepatomegaly with hepatic steatosis. No focal liver lesion. Gallbladder is not dilated. Bile ducts appear normal. The pancreas is normal. The spleen is normal. The adrenal glands are normal. Kidneys show nonobstructing calculus lower pole left kidney measuring 1 cm. Right kidney appears normal. No masses are demonstrated. There is good enhancement of the aorta and abdominal vessels and organs with IV contrast. Aorta is atherosclerotic and ectatic without aneurysm or dissection. The bladder is not distended. Prostate is not enlarged. Bowel gas pattern appears normal throughout. The appendix is not enlarged. There is diverticulosis of the sigmoid colon without diverticulitis. No intra-abdominal adenopathy. No free air or free fluid. No blastic or lytic bony changes. Degenerative changes noted of the lumbosacral spine. IMPRESSION: 1. Hepatomegaly with hepatic steatosis. 2. Nonobstructing left renal calculus. 3. Diverticulosis of the sigmoid colon without evidence of diverticulitis. Dictated by: Dictated on workstation # [id number]
== END 2019-08-04 03:06 | disposition home or self-care (01) ==
LOC: EDUNIT# 00:41 → ER 00:43
DX: S39.011A Strain of muscle, fascia and tendon of abdomen, initial encounter (principal); I10 Essential (primary) hypertension; E11.9 Type 2 diabetes mellitus without complications; E78.00 Pure hypercholesterolemia, unspecified; J43.9 Emphysema, unspecified; K21.9 Gastro-esophageal reflux disease without esophagitis; F03.90 Unspecified dementia, unspecified severity, without behavioral disturbance, psychotic disturbance, mood disturbance, and anxiety; F41.9 Anxiety disorder, unspecified; F32.9 Major depressive disorder, single episode, unspecified; Z99.81 Dependence on supplemental oxygen; Z88.5 Allergy status to narcotic agent; Z88.6 Allergy status to analgesic agent; Z88.8 Allergy status to other drugs, medicaments and biological substances; Z79.02 Long term (current) use of antithrombotics/antiplatelets; Z79.51 Long term (current) use of inhaled steroids; Z79.84 Long term (current) use of oral hypoglycemic drugs; Z87.891 Personal history of nicotine dependence; Z85.828 Personal history of other malignant neoplasm of skin; Z85.46 Personal history of malignant neoplasm of prostate; Z82.49 Family history of ischemic heart disease and other diseases of the circulatory system; Z80.3 Family history of malignant neoplasm of breast; X50.0XXA Overexertion from strenuous movement or load, initial encounter
CPT/HCPCS: 36415; 74177; 80053; 81000; 82150; 83690; 85025; 87077; 87088; 93041

== ENCOUNTER 2019-10-24 19:18 | Emergency (ER) | payer MEDICARE, MEDICAID ==
[~2019-10-24] VITALS: Ht 182 cm; Wt 111.8 kg
--- OUTSIDE RECORDS SUMMARY | 2019-10-24 19:29 | XMS REPORT | Clinical Summary ---
Author Author [facility] Organization [facility] Address Unknown Phone Unavailable Care Team Providers Care Government Property Inspector Name Role Phone PCP Unavailable Allergies Not on File Medications Not on file Active Problems Not on file Social History Date Tobacco Use Types Packs/Day Years Used Never Assessed Sex Assigned at Date Recorded Not on file Industry Job Start Date Occupation Not on file Not on file Not on file Travel End Travel History Travel Start No recent travel history available. Last Filed Vital Signs Not on file Plan of Treatment Not on file Results Not on filefrom Last 3 Months
--- OUTSIDE RECORDS SUMMARY | 2019-10-24 19:29 | XMS REPORT | Encounter Summary ---
Author Author [facility] Address Unknown Phone Unavailable Care Team Providers Care Enlisted Aircrew/Aerial Observer/Gunner Name Role Phone PCP Unavailable Encounter Details Care Team Description Date Type Department Afshin Frank MD [address] [facility] [address] [place] [address] [phone] [facility] [address] [place] [address] Social History Date Tobacco Use Types Packs/Day Years Used Never Assessed Sex Assigned at Date Recorded Not on file Industry Job Start Date Occupation Not on file Not on file Not on file Travel End Travel History Travel Start No recent travel history available. documented as of this encounter Plan of Treatment Not on filedocumented as of this encounter Procedures Comments Procedure Name Priority Date/Time Associated Diag nosis CULTURE, FUNGUS Routine 09/13/2010 12:46 PM CDT CULTURE, EYE Routine 09/13/2010 12:46 PM CDT documented in this encounter Results * Culture, Eye (09/13/2010 12:46 PM CDT) Specimen Eye Narrative Performed At REPORT [facility] Specimen/Source: EYE/r cornea Collected: 09/13/2010 12:46 Status: Final Last Updated: 09:36 Culture result (Final) No growth at 10 days Performing Organization Address [facility] [place] [facility] [phone] [place], [place] [address] [facility] * Culture, Fungus (09/13/2010 12:46 PM CDT) Specimen Specimen Narrative Performed At REPORT [facility] Specimen/Source: Specimen/r cornea Collected: 09/13/2010 12:46 Status: Final Last Updated: 12:13 Culture result Mycology (Final) No Fungus isolated at 2 weeks Performing Organization Address City/State/Zipcode Ph one Number [facility] [address] [place], [place] [address] [place] documented in this encounter Visit Diagnoses Not on filedocumented in this encounter
[2019-10-24 19:37] LABS: BASOPHILS % (AUTO) 0 % (0-10); EOSINOPHILS # (AUTO) 0.2 10^3/uL (0.0-0.3); EOSINOPHILS % (AUTO) 3 % (0-10); HEMATOCRIT 40 % (40-54); HEMOGLOBIN 12.7 G/DL (13.3-17.7); LYMPHOCYTES % (AUTO) 26 % (12-44); MEAN CORPUSCULAR HEMOGLOBIN 28 PG (25-34); MEAN CORPUSCULAR HGB CONC 32 G/DL (32-36); MEAN CORPUSCULAR VOLUME 90 FL (80-99); MEAN PLATELET VOLUME 9.6 FL (7.4-10.4); MONOCYTES # (AUTO) 0.9 X 10^3 (0.0-1.0); MONOCYTES % (AUTO) 12 % (0-12); NEUTROPHILS # (AUTO) 4.5 X 10^3 (1.8-7.8); NEUTROPHILS % (AUTO) 59 % (42-75); PLATELET COUNT 200 10^3/uL (130-400); RED CELL DISTRIBUTION WIDTH 13.7 % (10.0-14.5); WHITE BLOOD COUNT 7.7 10^3/uL (4.3-11.0)
[2019-10-24 19:52] LABS: ALANINE AMINOTRANSFERASE 41 U/L (0-55); ALBUMIN 4.4 GM/DL (3.2-4.5); ALKALINE PHOSPHATASE 90 U/L (40-136); BILIRUBIN,TOTAL 0.3 MG/DL (0.1-1.0); BUN/CREATININE RATIO 10; CALCIUM 9.4 MG/DL (8.5-10.1); CARBON DIOXIDE 22 MMOL/L (21-32); CHLORIDE 106 MMOL/L (98-107); CREATININE SERUM 0.98 MG/DL (0.60-1.30); GFR ESTIMATED > 60; GLUCOSE 162 MG/DL (70-105); POTASSIUM 4.3 MMOL/L (3.6-5.0); SODIUM 142 MMOL/L (135-145); TOTAL PROTEIN 7.6 GM/DL (6.4-8.2)
--- NOTE | 2019-10-24 19:53 | ED General ---
General Chief Complaint: General Problems/Pain Stated Complaint: LEG SWELLING Nursing Triage Note: TO ED ROOM 6 [facility] WITH C/O LEG SWELLING FOR SEVERAL WEEKS AND BILATERAL ITCHY ARMS FOR 3 DAYS. Nursing Sepsis Screen: No Definite Risk Source of Information: Patient Exam Limitations: No Limitations History of Present Illness Date Seen by Provider: Oct 24, 2019 Time Seen by Provider: 19:24 Initial Comments This 83-year-old gentleman presents to the emergency room with complaints of lower extremity edema over the past few weeks and upper extremity itching for the past few days. He reports recently taking allergy medication that was recently stopped. This patient is known to me from multiple prior ER visits. He has lower extremity edema does not seem worse than prior. There is no erythe ma or tenderness associated with the swelling. Echo from 2016 shows ejection fraction of 60 percent. It was noted by EMS the patient is on clopidogrel. It looks like this was filled on October 21. However, his clinic paperwork also notes he is allergic to clopidogrel. Allergies and Home Medications Allergies Coded Allergies: Serotonin 5HT-3 Antagonists (Unverified Allergy, Unknown, 11/25/17) Tricyclic Compounds (Unverified Allergy, Unknown, 11/25/17) codeine (Verified Allergy, Unknown, 04/07/06) hydrocodone (Unverified Allergy, Unknown, 10/16/15) aspirin (Unverified Adverse Reaction, Mild, STOMACH IRRITATION, 11/25/17) Home Medications Albuterol Sulfate 2.5 Mg/3 Ml Vial.neb, 2.5 MG NEB DAILY PRN for SHORTNESS OF BREATH, (Reported) Albuterol Sulfate 2.5 Mg/3 Ml Vial.neb, 2.5 MG NEB TID, (Reported) Amlodipine Besylate 10 Mg Tablet, 10 MG PO HS, (Reported) Atorvastatin Calcium 40 Mg Tablet, 40 MG PO HS Prescribed by: KIMBERLY BRUNO on 04/24/19 1029 Azithromycin 250 Mg Tablet, 250 MG PO DAILY Prescribed by: KIMBERLY BRUNO on 04/24/19 1029 Benzonatate 200 Mg Capsule, 200 MG PO HS, (Reported) Cefdinir 300 Mg Capsule, 300 MG PO BID Prescribed by: KIMBERLY BRUNO on 04/24/19 1029 Clonazepam 1 Mg Tablet, 1 MG PO BID, (Reported) Clopidogrel Bisulfate 75 Mg Tablet, 75 MG PO DAILY, (Reported) Doxazosin Mesylate 4 Mg Tablet, 4 MG PO 1700, (Reported) Fluticasone Propionate 16 Gm [place].susp, 1 SPRAY NS BID, (Reported) Glipizide 5 Mg Tablet, 5 MG PO BID, (Reported) Glycerin/Propylene Glycol 15 Ml Drops, 1 DROP OU QID PRN for DRY EYES, (Rep orted) Guaifenesin/Dextromethorphan 5 Ml Syrup, 20 ML PO Q4H PRN for COUGH, (Reported) Levocetirizine Dihydrochloride 5 Mg Tablet, 5 MG PO HS, (Reported) Loratadine 10 Mg Tablet, 10 MG PO DAILY, (Reported) Metformin HCl 500 Mg Tablet, 250 MG PO DAILY PRN for BS ABOVE 145, (Reported) Mirabegron 25 Mg Tab.er.24h, 25 MG PO 1700, (Reported) Montelukast Sodium 10 Mg Tablet, 10 MG PO 1700, (Reported) Multivitamin with Minerals 1 Each Tablet, 1 TAB PO DAILY, (Reported) Nystatin 15 Gm Cream..g., TOP BID PRN for RASH, (Reported) Nystatin 1 Each Powder.ea., TOP BID PRN for RASH, (Reported) [place] 3 Polyunsat Fatty Acids 1,000 Mg Cap, 1,000 MG PO DAILY, (Reported) Ondansetron HCl 4 Mg Tablet, 4 MG PO BID, (Reported) Pantoprazole Sodium 40 Mg Tablet.dr, 40 MG PO DAILY, (Reported) Polyethylene Glycol 3350 238 Gm Powder, 17 GM PO HS, (Reported) Prednisone 10 Mg Tab.ds.pk, 10 MG PO DAILY Take 6 tabs(60mg)daily,decrease by 1 tab(10MG)daily. Prescribed by: KIMBERLY BRUNO on 04/24/19 1029 Pregabalin 100 Mg Capsule, 100 MG PO TID, (Reported) Ranitidine HCl 150 Mg Tablet, 150 MG PO BID, (Reported) Rivastigmine 1 Each Patch.td24, 4.6 MG TD DAILY, (Reported) Telmisartan 40 Mg Tablet, 40 MG PO DAILY, (Reported) Tramadol HCl 50 Mg Tablet, 50 MG PO TID, (Reported) Triamcinolone Acet 15 Gm Cr, TP HS, (Reported) Vilazodone Hydrochloride 10 Mg Tablet, 10 MG PO HS, (Reported) Patient Home Medication List Home Medication List Reviewed: Yes Review of Systems Review of Systems Constitutional: no symptoms reported EENTM: no symptoms reported Respiratory: no symptoms reported Cardiovascular: see HPI Gastrointestinal: no symptoms reported Genitourinary: no symptoms reported Musculoskeletal: no symptoms reported Skin: see HPI Psychiatric/Neurological: No Symptoms Reported Hematologic/Lymphatic: No Symptoms Reported Past Glrydiw-Ohofir-Vrbdhy Hx Past Med/Social Hx: Reviewed Nursing Past Med/Soc Hx Patient Social History Alcohol Use: Denies Use Recreational Drug Use: No Smoking Status: Former Smoker Type Used: Cigars, Cigarettes Former Smoker, Quit: Mar 31, 1966 2nd Hand Smoke Exposure: No Recent Foreign Travel: No Contact w/Someone Who Travel: No Recent Infectious Disease Expo: No Recent Hopitalizations: No Physical Abuse: No Sexual Abuse: No Mistreated: No Fear: No Immunizations Up To Date Tetanus Booster (TDap): Unknown PED Vaccines UTD: No Date of Pneumonia Vaccine: Mar 31, 2016 Date of Influenza Vaccine: Dec 29, 2018 Seasonal Allergies Seasonal Allergies: Yes Past Medical History Surgeries: Yes (RIGHT EYELID BASAL CELL CANCER; HERNIA REPAIR X 4, PER PT ) Abdominal, Adenoidectomy, Eye Surgery, Prostatectomy, Tonsillectomy Respiratory: Yes (O2 DEPENDENT AT 3L/NC CONTINUOUSLY;MULTIPLE EPISODES OF PNEUMONIA) Pneumonia, Chronic Bronchitis, COPD, Emphysema Currently Using CPAP: No Currently Using BIPAP: No Cardiac: Yes Chronic Edema/Swelling, High Cholesterol, Hypertension Neurological: Yes Dementia Reproductive Disorders: No Sexually Transmitted Disease: No HIV/AIDS: No Genitourinary: Yes (PROSTATE CANCER > 10 YEARS AGO) Prostate Problems, Kidney Stones Gastrointestinal: Yes (S/P HERNIA REPAIR X 4, PER PT) Abdominal Hernia, Gastroesophageal Reflux, Chronic Constipation, Polyps, Hiatal Hernia Musculoskeletal: Yes (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) Degenerate Disk Disease, Osteoporosis, Arthritis, Chronic Back Pain Endocrine: Yes Diabetes, Non-Insulin dep HEENT: Yes (R EYELID BASAL CELL CANCER;SINUSITIS; NOSEBLEEDS) Cataract Loss of Vision: Right Hearing Impairment: Denies Cancer: Yes (PROSTATE CANCER, BASAL CELL CANCER OF RIGHT EYE) Prostate, Skin Did You Recieve Any Treatments: Yes What Type of Treatment Did You: Surgical Intervention Psychosocial: Yes Anxiety, Depression Integumentary: Yes (SKIN CANCER; PRESSURE ULCERS OF BUTTOCKS/SACRUM) Blood Disorders: No Adverse Reaction/Blood Tranf: No Family Medical History FH: breast cancer G8 SISTER Myocardial infarction 19 FATHER Heart Disease, Lung Disease CHRONIC GENERALIZED WEAKNESS, FREQUENT FALLS VERY POOR/VERY MINIMAL MOBILITY--HAS POWER CHAIR AND WALKER, WHICH HE HAS REFUSED TO USE AT HOME CHRONIC BILATERAL KNEE PAIN RIGHT EYELID BASAL 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 6.0oz. 113.765704ms; 33.00 BMI Method:Estimated General Appearance: No Apparent Distress, WD/WN HEENT: PERRL/EOMI, Other (chronic skin changes to the left face from skin cancer currently being monitored by Dr. Mcdonald. 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 Norm as Tested Skin: Normal Color, Warm/Dry Progress/Results/Core Measures Suspected Sepsis Recent Fever Within 48 Hours: No Infection Criteria Present: None New/Unexplained Altered Menta: No Sepsis Screen: No Definite Risk SIRS Temperature: Pulse: 92 Respiratory Rate: 20 Laboratory Tests 10/24/19 19:25: White Blood Count 7.7 Blood Pressure 168 /85 Mean: 112 Laboratory Tests 10/24/19 19:25: Creatinine 0.98, Platelet Count 200, Total Bilirubin 0.3 Results/Orders Lab Results Laboratory Tests Test 10/24/19 19:25 Range/Units White Blood Count 7.7 4.3-11.0 10^3/uL Red Blood Count 4.47 4.35-5.85 10^6/uL Hemoglobin 12.7 L 13.3-17.7 G/DL Hematocrit 40 40-54 % Mean Corpuscular Volume 90 80-99 FL Mean Corpuscular Hemoglobin 28 25-34 PG Mean Corpuscular Hemoglobin Concent 32 32-36 G/DL Red Cell Distribution Width 13.7 10.0-14.5 % Platelet Count 200 130-400 10^3/uL Mean Platelet Volume 9.6 7.4-10.4 FL Neutrophils (%) (Auto) 59 42-75 % Lymphocytes (%) (Auto) 26 12-44 % Monocytes (%) (Auto) 12 0-12 % Eosinophils (%) (Auto) 3 0-10 % Basophils (%) (Auto) 0 0-10 % Neutrophils # (Auto) 4.5 1.8-7.8 X 10^3 Lymphocytes # (Auto) 2.0 1.0-4.0 X 10^3 Monocytes # (Auto) 0.9 0.0-1.0 X 10^3 Eosinophils # (Auto) 0.2 0.0-0.3 10^3/uL Basophils # (Auto) 0.0 0.0-0.1 10^3/uL Sodium Level 142 135-145 MMOL/L Potassium Level 4.3 3.6-5.0 MMOL/L Chloride Level 106 98-107 MMOL/L Carbon Dioxide Level 22 21-32 MMOL/L Anion Gap 14 5-14 MMOL/L Blood Urea Nitrogen 10 7-18 MG/DL Creatinine 0.98 0.60-1.30 MG/DL Estimat Glomerular Filtration Rate > 60 BUN/Creatinine Ratio 10 Glucose Level 162 H 70-105 MG/DL Calcium Level 9.4 8.5-10.1 MG/DL Corrected Calcium 9.1 8.5-10.1 MG/DL Total Bilirubin 0.3 0.1-1.0 MG/DL Aspartate Amino Transf (AST/SGOT) 44 H 5-34 U/L Alanine Aminotransferase (ALT/SGPT) 41 0-55 U/L Alkaline Phosphatase 90 40-136 U/L B-Type Natriuretic Peptide < 10.0 <100.0 PG/ML Total Protein 7.6 6.4-8.2 GM/DL Albumin 4.4 3.2-4.5 GM/DL My Orders Orders - CEASAR LUCAS MD BNP (10/24/19 19:32) Cbc With Automated Diff (10/24/19 19:32) Comprehensive Metabolic Panel (10/24/19 19:32) Hydrocortisone 1% Cream (Hydrocortisone (10/24/19 21:00) O2 (10/24/19 19:48) Loratadine Tablet (Claritin Tablet) (10/24/19 20:00) Medications Given in ED Current Medications Medications Dose Ordered Sig/Bernice Route Start Time Stop Time Status Last Admin Dose Admin Loratadine 10 mg ONCE ONCE PO 10/24/19 20:00 10/24/19 20:01 DC 10/24/19 20:30 10 MG Vital Signs/I&O 10/24/19 10/24/19 10/24/19 19:18 19:27 20:56 Temp 36.7 36.7 Pulse 92 95 Resp 20 18 B/P (MAP) 168/85 (112) 161/92 (112) Pulse Ox 96 O2 Delivery Room Air Nasal Cannula Nasal Cannula O2 Flow Rate 3.00 3.00 Capillary Refill : Less Than 3 Seconds Blood Pressure Mean: 112 Progress Note #1: Time: 19:56 Progress Note Hydrocortisone was given for the arm itching. We will also give him some Claritin. Patient now says the itching is on his torso. Hydrocortisone was applied there is well. Labs are pending. Respiratory status is stable and his oxygen saturation is in the high 90s on room air despite the fact that he normally wears 3 L of oxygen at home. Progress Note #2: Progress Note Workup was unremarkable. Patient was advised to restart his antihistamine therapy and to restart his compression stocking therapy during the day. Departure Impression Primary Impression: Lower extremity edema Additional Impression: Pruritus Disposition: 01 HOME, SELF-CARE Condition: Improved Departure-Patient Inst. Decision time for Depature: 20:45 Referrals: TAMMY BOBBY DO (PCP/Family) Primary Care Physician Patient Instructions: Swelling Add. Discharge Instructions: Elevate your legs to the level of heart is much as possible when at rest. You may use your compression stockings for 8-12 hours during the day to help reduce swelling. Remove them at night. Resume your Claritin (loratadine) for itching. You may also use the hydrocortisone cream and a thin layer to the affected areas twice a day. Contact your primary care provider within the further questions or concerns. You may return to the emergency room for more urgent issues. All discharge instructions reviewed with patient and/or family. Voiced understanding. Copy Copies To 1: TAMMY BOBBY JOSHUA T MD Oct 24, 2019 19:53
[2019-10-24] MEDS ORDERED: LORATADINE (CLARITIN) 10 MG TAB PO ONE (20:00)
--- NOTE | 2019-10-24 20:37 | NUR ---
PT'S DAUGHTER CALLED FOR RIDE HOME, UPDATED ON POC.
[2019-10-24 20:56] VITALS: BP 161/92
[2019-10-24] MEDS ORDERED: HYDROCORTISONE 1% CREAM 30 GM TUBE TOP SCH (21:00)
== END 2019-10-24 21:06 | disposition home or self-care (01) ==
LOC: EDUNIT# 19:23 → ER 19:24
DX: R60.0 Localized edema (principal); L29.9 Pruritus, unspecified; J43.9 Emphysema, unspecified; I10 Essential (primary) hypertension; E78.00 Pure hypercholesterolemia, unspecified; K21.9 Gastro-esophageal reflux disease without esophagitis; E11.9 Type 2 diabetes mellitus without complications; F41.9 Anxiety disorder, unspecified; F32.9 Major depressive disorder, single episode, unspecified; G89.29 Other chronic pain; M54.9 Dorsalgia, unspecified; K59.09 Other constipation; F03.90 Unspecified dementia, unspecified severity, without behavioral disturbance, psychotic disturbance, mood disturbance, and anxiety; Z80.3 Family history of malignant neoplasm of breast; Z79.02 Long term (current) use of antithrombotics/antiplatelets; Z79.51 Long term (current) use of inhaled steroids; Z85.828 Personal history of other malignant neoplasm of skin; Z85.46 Personal history of malignant neoplasm of prostate; Z79.84 Long term (current) use of oral hypoglycemic drugs; Z88.5 Allergy status to narcotic agent; Z88.6 Allergy status to analgesic agent; Z88.8 Allergy status to other drugs, medicaments and biological substances; Z87.891 Personal history of nicotine dependence; Z82.49 Family history of ischemic heart disease and other diseases of the circulatory system; Z79.52 Long term (current) use of systemic steroids
CPT/HCPCS: 36415; 80053; 83880; 85025

== ENCOUNTER → 2019-11-25 | Outpatient (CLI) | payer MEDICARE, MEDICAID | LOC: CARD 09:55 | PROVIDERS: ATTEND Internal Medicine Cardiovascular Disease | DX: I10 Essential (primary) hypertension (principal); E87.1 Hypo-osmolality and hyponatremia; E78.2 Mixed hyperlipidemia; E11.9 Type 2 diabetes mellitus without complications; I34.0 Nonrheumatic mitral (valve) insufficiency | CPT/HCPCS: 93306 ==

== ENCOUNTER → 2020-07-20 | Outpatient (CLI) | payer MEDICARE, MEDICAID ==
[~2020-07-20] MED LIST changes: -ACET-2715 PO; +ACET-3075 PO; +AMLO-251 PO; -AMLO10TA7 PO; -CETI10TA21 PO; +CETI10TA49 PO; -MONT10TA26 PO; +MONT10TA32 PO; -PANT40TA3 PO; +PANT40TA52 PO
== END ==
LOC: WOUNDCARE 14:04
PROVIDERS: ATTEND Surgery
DX: L98.492 Non-pressure chronic ulcer of skin of other sites with fat layer exposed (principal); C44.309 Unspecified malignant neoplasm of skin of other parts of face
CPT/HCPCS: 99212

== ENCOUNTER 2021-04-05 22:53 | Inpatient (IN) | payer MEDICARE, MEDICAID ==
[~2021-04-05] VITALS: Ht 172.7 cm; Wt 113.6 kg
[~2021-04-05 22:53] MED LIST changes: +BENA-3 PO; -BENA20TA7 PO; +DOXY-311 PO; -DOXY100C42 PO; +FLUT16SP22 NSEACH; +MONT-40 PO; -MONT10TA32 PO; +TR1C15 TOP; -TR1C15 TP
--- NOTE | 2021-04-05 23:08 | ED General ---
General Stated Complaint: FALLS, WEAKNESS Source of Information: Patient (VERY LIMITED HISTORIAN), EMS, Old Records History of Present Illness Date Seen by Provider: Apr 05, 2021 Time Seen by Provider: 22:55 Initial Comments PT ARRIVES VIA EMS FROM HOME PT AND LIVE AT HOME AND EACH HAVE [facility] PT WITH C/O CHRONIC WEAKNESS AND FREQUENT FALLS--PT HAS HOME WHEELCHAIR AND WALKER, WHICH PT HISTORICALLY HAS REFUSED TO USE. TONIGHT, STATES HE WAS GETTING UP TO GO TO BEDSIDE COMMODE, AND HE FELL AND HIT HIS LOWER BACK ON THE SIDE OF THE BED. PT UNABLE TO GET UP ON OWN, AND UNABLE TO ASSIST HIM NO REPORTED HEAD INJURY OR LOSS OF CONSCIOUSNESS PT STATES HE DID FALL AND HIT THE BACK OF HIS HEAD YESTERDAY WHEN HE WAS IN THE BATHROOM. NO LOSS OF CONSCIOUSNESS, NO HEAD PAIN OR NECK PAIN OR ANY OTHER INJURIES. NO PARESTHESIAS OR MOTOR DEFICITS PT IS ON PLAVIX NO CHEST PAIN DENIES SHORTNESS OF BREATH NO ABDOMINAL PAIN OR GI SYMPTOMS--HAS BEEN EATING AND DRINKING NORMALLY NO COUGH OR URI SYMPTOMS NO LOSS OF TASTE OR SMELL PT DENIES PAIN ANY WHERE DENIES ANY SYMPTOMS OF ANY KIND NO FEVER NO URINARY SYMPTOMS PT WITH LONGSTANDING POOR MOBILITY AND GENERALIZED WEAKNESS, WHICH HAS PROGRESSIVELY GOTTEN WORSE OVER THE LAST 6 MONTHS AND CANNOT GET OUT OF BED ON HIS OWN FOR THE LAST 6 MONTHS, OR LONGER. WAS GETTING HOME PHYSICAL THERAPY UNTIL 6 MONTHS AGO. PT IS SUPPOSED TO WEAR HOME O2 AT 3L/NC CONTINUOUSLY, BUT PT WAS NOT WEARING ANY O2 WHEN EMS ARRIVED AT THE SCENE O2 SAT WAS 84% ON ROOM AIR, UP TO 89% ON 3L/NC FOR EMS. 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 Allergies and Home Medications Allergies Coded Allergies: Serotonin 5HT-3 Antagonists (Unverified Allergy, Unknown, 11/25/17) Tricyclic Compounds (Unverified Allergy, Unknown, 11/25/17) codeine (Verified Allergy, Unknown, 04/07/06) hydrocodone (Unverified Allergy, Unknown, 10/16/15) aspirin (Unverified Adverse Reaction, Mild, STOMACH IRRITATION, 11/25/17) Patient Home Medication List Home Medication List Reviewed: Yes Albuterol Sulfate (Albuterol Sulfate) 2.5 Mg/3 Ml Vial.neb, 2.5 MG NEB DAILY PRN for SHORTNESS OF BREATH, (Reported) Entered as Reported by: HILARY APPIAH on 04/23/19 1009 Albuterol Sulfate (Albuterol Sulfate) 2.5 Mg/3 Ml Vial.neb, 2.5 MG NEB TID, (Reported) Entered as Reported by: HILARY APPIAH on 04/23/19 1223 Amlodipine Besylate (Amlodipine Besylate) 10 Mg Tablet, 10 MG PO HS, (Reported) Entered as Reported by: HILARY APPIAH on 12/27/15 0851 Atorvastatin Calcium (Lipitor) 40 Mg Tablet, 40 MG PO HS Prescribed by: KIMBERLY BRUNO on 04/24/19 1029 Azithromycin (Azithromycin) 250 Mg Tablet, 250 MG PO DAILY Prescribed by: KIMBERLY BRUNO on 04/24/19 1029 Benzonatate (Benzonatate) 200 Mg Capsule, 200 MG PO HS, (Reported) Entered as Reported by: HILARY APPIAH on 04/23/19 1009 Cefdinir (Cefdinir) 300 Mg Capsule, 300 MG PO BID Prescribed by: KIMBERLY BRUNO on 04/24/19 1029 Clonazepam (Clonazepam) 1 Mg Tablet, 1 MG PO BID, (Reported) Entered as Reported by: HILARY APPIAH on 12/27/15 0851 Clopidogrel Bisulfate (Clopidogrel) 75 Mg Tablet, 75 MG PO DAILY, (Reported) Entered as Reported by: ISABELA CUEVAS on 09/17/17 0116 Doxazosin Mesylate (Doxazosin Mesylate) 4 Mg Tablet, 4 MG PO 1700, (Reported) Entered as Reported by: CARIN PRINGLE on 05/27/15 1136 Fluticasone Propionate (Fluticasone Propionate) 16 Gm [place].susp, 1 SPRAY NS BID, (Reported) Entered as Reported by: HILARY APPIAH on 12/06/16 1119 Glipizide (Glipizide) 5 Mg Tablet, 5 MG PO BID, (Reported) Entered as Reported by: JACINTA DE LA O on 01/26/17 1414 Glycerin/Propylene Glycol (Lubricant Eye Drops) 15 Ml Drops, 1 DROP OU QID PRN for DRY EYES, (Reported) Entered as Reported by: HILARY APPIAH on 12/06/16 1126 Guaifenesin/Dextromethorphan (Guaifenesin Dm Syrup) 5 Ml Syrup, 20 ML PO Q4H PRN for COUGH, (Reported) Entered as Reported by: HILARY APPIAH on 04/23/19 1238 Levocetirizine Dihydrochloride (Levocetirizine Dihydrochloride) 5 Mg Tablet, 5 MG PO HS, (Reported) Entered as Reported by: HILARY APPIAH on 11/25/17 1108 Loratadine (Loratadine) 10 Mg Tablet, 10 MG PO DAILY, (Reported) Entered as Reported by: HILARY APPIAH on 04/23/19 1009 Metformin HCl (Metformin HCl) 500 Mg Tablet, 250 MG PO DAILY PRN for BS ABOVE 145, (Reported) Entered as Reported by: KRYSTIN NEWMAN on 01/26/17 180 Mirabegron (Myrbetriq) 25 Mg Tab.er.24h, 25 MG PO 1700, (Reported) Entered as Reported by: KRYSTIN NEWMAN on 01/26/171801 Montelukast Sodium (Montelukast Sodium) 10 Mg Tablet, 10 MG PO 1700, (Reported) Entered as Reported by: KRYSTIN NEWMAN on 01/26/171801 Multivitamin with Minerals (Men's One Daily) 1 Each Tablet, 1 TAB PO DAILY, (Reported) Entered as Reported by: HILARY APPIAH on 04/23/19 1223 Nystatin (Nystatin) 15 Gm Cream..g., TOP BID PRN for RASH, (Reported) Entered as Reported by: HILARY APPIAH on 11/25/17 1108 Nystatin (Nystatin) 1 Each Powder.ea., TOP BID PRN for RASH, (Reported) Entered as Reported by: HILARY APPIAH on 04/23/19 1238 [place] 3 Polyunsat Fatty Acids (Fish Oil 1,000 mg Capsule) 1,000 Mg Cap, 1,000 MG PO DAILY, (Reported) Entered as Reported by: HILARY APPIAH on 04/23/19 1223 Ondansetron HCl (Ondansetron HCl) 4 Mg Tablet, 4 MG PO BID, (Reported) Entered as Reported by: HILARY APPIAH on 04/23/19 1223 Pantoprazole Sodium (Protonix) 40 Mg Tablet.dr, 40 MG PO DAILY, (Reported) Entered as Reported by: HILARY APPIAH on 04/23/19 1223 Polyethylene Glycol 3350 (Gavilax) 238 Gm Powder, 17 GM PO HS, (Reported) Entered as Reported by: HILARY APPIAH on 04/23/19 1223 Prednisone (Prednisone) 10 Mg Tab.ds.pk, 10 MG PO DAILY Prescribed by: KIMBERLY BRUNO on 04/24/19 1029 Pregabalin (Lyrica) 100 Mg Capsule, 100 MG PO TID, (Reported) Entered as Reported by: ELDA JONES on 03/27/16 1611 Ranitidine HCl (Ranitidine HCl) 150 Mg Tablet, 150 MG PO BID, (Reported) Entered as Reported by: KRYSTIN NEWMAN on 01/26/17 180 Rivastigmine (Rivastigmine) 1 Each Patch.td24, 4.6 MG TD DAILY, (Reported) Entered as Reported by: KRYSTIN NEWMAN on 01/26/17 180 Telmisartan (Telmisartan) 40 Mg Tablet, 40 MG PO DAILY, (Reported) Entered as Reported by: HILARY APPIAH on 04/23/19 1223 Tramadol HCl (Tramadol HCl) 50 Mg Tablet, 50 MG PO TID, (Reported) Entered as Reported by: HILARY APPIAH on 04/23/19 1223 Triamcinolone Acet (Triamcinolone Acetonide 0.1% Cream) 15 Gm Cr, TP HS, (Reported) Entered as Reported by: KRYSTIN NEWMAN on 01/26/17 180 Vilazodone Hydrochloride (Viibryd) 10 Mg Tablet, 10 MG PO HS, (Reported) Entered as Reported by: CARIN PRINGLE on 05/27/15 1136 Review of Systems Review of Systems Constitutional: see HPI, malaise, weakness EENTM: no symptoms reported Respiratory: see HPI; No cough, No short of breath Cardiovascular: no symptoms reported Gastrointestinal: no symptoms reported Genitourinary: no symptoms reported Musculoskeletal: no symptoms reported Skin: no symptoms reported Psychiatric/Neurological: No Symptoms Reported Hematologic/Lymphatic: No Symptoms Reported Immunological/Allergic: no symptoms reported Past Yetjheh-Dtolvp-Cjzadb Hx Patient Social History Tobacco Use?: Yes Tobacco type used: Cigarettes Smoking Status: Former Smoker Substance use?: No Alcohol Use?: No Immunizations Up To Date Tetanus Booster (TDap): Unknown PED Vaccines UTD: No Seasonal Allergies Seasonal Allergies: Yes Past Medical History Surgeries: Yes (RIGHT EYELID BASAL CELL CANCER; HERNIA REPAIR X 4, PER PT ) Abdominal, Adenoidectomy, Eye Surgery, Prostatectomy, Tonsillectomy Respiratory: Yes (O2 DEPENDENT AT 3L/NC CONTINUOUSLY;MULTIPLE EPISODES OF PNEUMONIA) Pneumonia, Chronic Bronchitis, COPD, Emphysema Currently Using CPAP: No Currently Using BIPAP: No Cardiac: Yes Chronic Edema/Swelling, High Cholesterol, Hypertension Neurological: Yes Dementia Reproductive Disorders: No Sexually Transmitted Disease: No HIV/AIDS: No Genitourinary: Yes (PROSTATE CANCER > 10 YEARS AGO) Prostate Problems, Kidney Stones Gastrointestinal: Yes (S/P HERNIA REPAIR X 4, PER PT) Abdominal Hernia, Gastroesophageal Reflux, Chronic Constipation, Polyps, Hiatal Hernia Musculoskeletal: Yes (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) Degenerate Disk Disease, Osteoporosis, Arthritis, Chronic Back Pain Endocrine: Yes Diabetes, Non-Insulin dep HEENT: Yes (R EYELID BASAL CELL CANCER;SINUSITIS; NOSEBLEEDS) Cataract Loss of Vision: Right Hearing Impairment: Denies Cancer: Yes (PROSTATE CANCER, BASAL CELL CANCER OF RIGHT EYE) Prostate, Skin Did You Recieve Any Treatments: Yes What Type of Treatment Did You: Surgical Intervention Psychosocial: Yes Anxiety, Depression Integumentary: Yes (SKIN CANCER; PRESSURE ULCERS OF BUTTOCKS/SACRUM) Blood Disorders: No Adverse Reaction/Blood Tranf: No Family Medical History FH: breast cancer G8 SISTER Myocardial infarction 19 FATHER Heart Disease, Lung Disease CHRONIC GENERALIZED WEAKNESS, FREQUENT FALLS VERY POOR/VERY MINIMAL MOBILITY--HAS POWER CHAIR AND WALKER, WHICH HE HAS REFUSED TO USE AT HOME CHRONIC BILATERAL KNEE PAIN RIGHT EYELID 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 6.0oz. [id number]; 44.00 BMI Method:Estimated General Appearance: No Apparent Distress, WD/WN, Other (GENERALIZED WEAKNESS. MAKES NOT EFFORT AT ALL TO MOVE OR ASSIST WITH ANY MOVEMENTS OR POSITION CHANGES--IS FULL 2-3 PERSON ASSIST FOR EVERYTHING. ) HEENT: Other (KEEPS LEFT EYE CLOSED. RIGHT CORNEA OPACIFIED, WITH EXTENSIVE ATROPHY AND ECTROPIC UPPER AND LOWER EYELIDS ON RIGHT.--CHRONIC CHANGES. EDENTULOUS. DRY ORAL MUCOSA) Neck: Normal Inspection, Non Tender Respiratory: Normal Breath Sounds, No Accessory Muscle Use, No Respiratory Distress Cardiovascular: Regular Rate, Rhythm, No Murmur Gastrointestinal: Non Tender, Soft Genital/Rectal: Other (UNCIRCUMCISED. EXTENSIVE CANDIDAL INTERTRIGO IN BILATERAL INGUINAL AREA AND AINSLEY AREA. PT HAS STAGE 2 DECUBITUS ULCER TO LEFT BUTTOCK, BUT ENTIRE BUTTOCK AREA BILATERALLY WITH DIFFUSE ERYTHEMA. ) Back: No CVA Tenderness, No Vertebral Tenderness, Other (MARKED KYPHOSIS WITH NECK FLEXION AND 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 AT ALL TIMES; MULTIPLE HAMMERTOES WITH POOR FOOT / NAIL HYGIENE) Extremity: Pedal Edema (1+ BILATERALLY) Neurologic/Psychiatric: Alert, Oriented x3, No Motor/Sensory Deficits, Normal Mood/Affect Skin: Normal Color, Warm/Dry, Other ( NOTED ABOVE) Progress/Results/Core Measures Suspected Sepsis SIRS Temperature: Pulse: Respiratory Rate: Laboratory Tests 04/05/21 23:10: White Blood Count 10.5 Blood Pressure / Mean: Laboratory Tests 04/05/21 23:10: Creatinine 1.27, INR Comment 1.2, Platelet Count 212, Total Bilirubin 0.4 Results/Orders Lab Results Laboratory Tests Test 04/05/21 23:10 04/05/21 23:12 04/05/21 23:15 Range/Units White Blood Count 10.5 4.3-11.0 10^3/uL Red Blood Count 4.59 4.30-5.52 10^6/uL Hemoglobin 12.9 L 13.3-17.7 g/dL Hematocrit 41 40-54 % Mean Corpuscular Volume 90 80-99 fL Mean Corpuscular Hemoglobin 28 25-34 pg Mean Corpuscular Hemoglobin Concent 31 L 32-36 g/dL Red Cell Distribution Width 13.3 10.0-14.5 % Platelet Count 212 130-400 10^3/uL Mean Platelet Volume 9.8 9.0-12.2 fL Immature Granulocyte % (Auto) 1 % Neutrophils (%) (Auto) 83 H 42-75 % Lymphocytes (%) (Auto) 9 L 12-44 % Monocytes (%) (Auto) 8 0-12 % Eosinophils (%) (Auto) 0 0-10 % Basophils (%) (Auto) 0 0-10 % Neutrophils # (Auto) 8.6 H 1.8-7.8 10^3/uL Lymphocytes # (Auto) 0.9 L 1.0-4.0 10^3/uL Monocytes # (Auto) 0.8 0.0-1.0 10^3/uL Eosinophils # (Auto) 0.0 0.0-0.3 10^3/uL Basophils # (Auto) 0.0 0.0-0.1 10^3/uL Immature Granulocyte # (Auto) 0.1 0.0-0.1 10^3/uL Erythrocyte Sedimentation Rate 17 0-30 MM/HR Prothrombin Time 16.0 H 12.2-14.7 SEC INR Comment 1.2 0.8-1.4 Activated Partial Thromboplast Time 33 24-35 SEC Sodium Level 138 135-145 MMOL/L Potassium Level 3.8 3.6-5.0 MMOL/L Chloride Level 105 98-107 MMOL/L Carbon Dioxide Level 18 L 21-32 MMOL/L Anion Gap 15 H 5-14 MMOL/L Blood Urea Nitrogen 32 H 7-18 MG/DL Creatinine 1.27 0.60-1.30 MG/DL Estimat Glomerular Filtration Rate 54 BUN/Creatinine Ratio 25 Glucose Level 139 H 70-105 MG/DL Calcium Level 8.8 8.5-10.1 MG/DL Corrected Calcium 8.7 8.5-10.1 MG/DL Magnesium Level 1.9 1.6-2.4 MG/DL Total Bilirubin 0.4 0.1-1.0 MG/DL Aspartate Amino Transf (AST/SGOT) 153 H 5-34 U/L Alanine Aminotransferase (ALT/SGPT) 83 H 0-55 U/L Alkaline Phosphatase 56 40-136 U/L Total Creatine Kinase 158 30-200 U/L Creatine Kinase MB 1.0 <6.6 NG/ML Myoglobin 175.3 H 10.0-92.0 NG/ML Troponin I < 0.028 <0.028 NG/ML C-Reactive Protein High Sensitivity 3.50 H 0.00-0.50 MG/DL B-Type Natriuretic Peptide 24.3 <100.0 PG/ML Total Protein 8.0 6.4-8.2 GM/DL Albumin 4.1 3.2-4.5 GM/DL Blood Gas Puncture Site RIGHT RADIAL Blood Gas Patient Temperature 36.2 Arterial Blood pH 7.35 L 7.37-7.43 Arterial Blood Partial Pressure CO2 37 35-45 MMHG Arterial Blood Partial Pressure O2 62 L 79-93 MMHG Arterial Blood HCO3 20 L 23-27 MMOL/L Arterial Blood Total CO2 20.7 L 21.0-31.0 MMOL/L Arterial Blood Oxygen Saturation 90 L 94-100 % Arterial Blood Base Excess -5.3 L -2.5-2.5 MMOL/L Barber Test YES-POS Blood Gas Ventilator Setting NO Blood Gas Inspired Oxygen 4L Influenza Type A Antigen NEGATIVE NEGATIVE Influenza Type B Antigen NEGATIVE NEGATIVE SARS-CoV-2 RNA (RT-PCR) Negative Negative My Orders Orders - ROBBY LEWIS DO Ed Iv/Invasive Line Start (04/05/21 23:) Ekg Tracing (04/05/21:) O2 (04/05/21:) Monitor-Rhythm Ecg Trace Only (04/05/21 23:) Arterial Blood Gas (04/05/21 23:12) Bnp Yates (04/05/21 23:) Cbc With Automated Diff (04/05/21 23:) Comprehensive Metabolic Panel (04/05/21 23:) Creatine Kinase (04/05/21:) Creatine Kinase Mb (04/05/21 23:) Hs C Reactive Protein (04/05/21:) Magnesium (04/05/21 23:) Protime With Inr (04/05/21:) Partial Thromboplastin Time (04/05/21:) Ua Culture If Indicated (04/05/21:) Erythrocyte Sedimentation Rate (04/05/21 23:) Myoglobin Serum (04/05/21 23:01) Troponin I Jessa (04/05/21 23:01) Influenza A & B Antigens (04/05/21 23:01) Covid 19 Inhouse Test (04/05/21 23:) Isolation Central Supply Req (04/05/21 23:01) Ct Thoracic/Lumbar Spine Wo (04/05/21 23:01) Ct Head/Cervical Spine Wo (04/05/21 23:01) Coronavirus Sars-Cov-2 So 2018 (04/05/21 23:52) Chest 1 View, Ap/Pa Only (04/06/21 ) Pelvis (04/06/21 ) Straight Cath For Spec.-Adult (04/06/21 00:55) Ed Iv/Invasive Line Start (04/06/21 00:55) Lactated Ringers (Lr 1000 Ml Iv Solution (04/06/21 01:00) Medications Given in ED Current Medications Medications Dose Ordered Sig/Bernice Route Start Time Stop Time Status Last Admin Dose Admin Lactated Ringer's 1,000 ml @ 0 mls/hr Q0M ONCE IV 04/06/21 01:00 04/06/21 01:01 DC 04/06/21 01:15 999 MLS/HR Vital Signs/I&O 04/05/21 04/05/21 04/05/21 22:58 22:58 22:58 Temp 36.2 Pulse 101 Resp 24 B/P (MAP) 115/50 (71) Pulse Ox 90 O2 Delivery Nasal Cannula Nasal Cannula Room Air O2 Flow Rate 3.00 3.00 3.00 Capillary Refill : Progress Note : Progress Note PLACED IN ISOLATION ROOM PPE WORN AT ALL TIMES COVID-19 TESTING DONE INITIAL O2 SATS IN MID TO UPPER 80'S ON O2 AT 3L/NC ON ARRIVAL PLACED IN OXIMASK AND 6L AND O2 SATS UP TO LOW 90'S. NO DETERIORATION DURING ER STAY PT HAD NO COMPLAINTS FOR ENTIRE ER STAY PT DID HAVE LIQUID YELLOW BM DURING ER STAY UNABLE TO PASS 14 FR COUDE CATHETER DUE TO ENLARGED PROSTATE/STRICTURE PT WISHES TO BE DNR/DNI ECG Initial ECG Impression Date: Apr 05, 2021 Initial ECG Impression Time: 23:04 Initial ECG Rate: 101 Initial ECG Rhythm: Normal Sinus Initial ECG Impression: Nonspecific Changes Diagnostic Imaging Comments CXR--POOR INSPIRATION, NO ACUTE PROCESS, PENDING RADIOLOGIST REVIEW PELVIS XRAY--NO ACUTE PROCESS, PENDING RADIOLOGIST REVIEW CT HEAD/CERVICAL SPINE--NO ACUTE PROCESS, CHRONIC CHANGES--PER [facility] VIA FAX AT 0047 CT THORACIC/LUMBAR SPINE--NO ACUTE PROCESS, CHRONIC CHANGES WITH SEVERE SPINAL STENOSIS-MOST SEVERE AT L2-L3. ANEURYSM OF BILATERAL COMMON ILIAC ARTERIES--PER [facility] VIA FAX AT 0047 Reviewed: Reviewed by [place] Departure Communication (Admissions) 0140--SPOKE WITH DR. HANLEY, ACCEPTS PT FOR ADMIT. Impression Primary Impression: Generalized weakness Additional Impressions: Acute on chronic respiratory failure with hypoxia Dehydration Unable to care for self Frequent falls NIDDM COPD (chronic obstructive pulmonary disease) Decubitus ulcer of left buttock, stage 2 Disposition: ADMITTED INPATIENT Condition: Stable Admissions Decision to Admit Reason: Admit from ER (General) Decision to Admit/Date: Apr 06, 2021 Time/Decision to Admit Time: 01:40 Departure-Patient Inst. Referrals: TAMMY BOBBY DO (PCP/Family) Primary Care Physician ROBBY LEWIS DO Apr 05, 2021 23:08
[2021-04-05 23:22] LABS: BASOPHILS % (AUTO) 0 % (0-10); EOSINOPHILS % (AUTO) 0 % (0-10); HEMATOCRIT 41 % (40-54); HEMOGLOBIN 12.9 g/dL (13.3-17.7); LYMPHOCYTES # (AUTO) 0.9 10^3/uL (1.0-4.0); LYMPHOCYTES % (AUTO) 9 % (12-44); MEAN CORPUSCULAR HEMOGLOBIN 28 pg (25-34); MEAN CORPUSCULAR HGB CONC 31 g/dL (32-36); MEAN CORPUSCULAR VOLUME 90 fL (80-99); MEAN PLATELET VOLUME 9.8 fL (9.0-12.2); MONOCYTES # (AUTO) 0.8 10^3/uL (0.0-1.0); MONOCYTES % (AUTO) 8 % (0-12); NEUTROPHILS # (AUTO) 8.6 10^3/uL (1.8-7.8); NEUTROPHILS % (AUTO) 83 % (42-75); PLATELET COUNT 212 10^3/uL (130-400); WHITE BLOOD COUNT 10.5 10^3/uL (4.3-11.0)
[2021-04-05 23:23] LABS: ABG BASE EXCESS -5.3 MMOL/L (-2.5-2.5); ABG OXYGEN SATURATION 90 % (94-100); ABG PCO2 37 MMHG (35-45); ABG PH 7.35 (7.37-7.43); ABG PO2 62 MMHG (79-93); ABG TCO2 20.7 MMOL/L (21.0-31.0)
[2021-04-05 23:24] LABS: ALLENS TEST YES-POS; INSPIRED O2 4L; PATIENT TEMP 36.2; VENTILATOR NO
[2021-04-05 23:37] LABS: ALBUMIN 4.1 GM/DL (3.2-4.5); CHLORIDE 105 MMOL/L (98-107); INR 1.2 (0.8-1.4); POTASSIUM 3.8 MMOL/L (3.6-5.0); SODIUM 138 MMOL/L (135-145)
[2021-04-05 23:38] LABS: CALCIUM 8.8 MG/DL (8.5-10.1)
[2021-04-05 23:39] LABS: GLUCOSE 139 MG/DL (70-105)
[2021-04-05 23:41] LABS: BILIRUBIN,TOTAL 0.4 MG/DL (0.1-1.0); CARBON DIOXIDE 18 MMOL/L (21-32)
[2021-04-05 23:43] LABS: ALKALINE PHOSPHATASE 56 U/L (40-136); CREATININE SERUM 1.27 MG/DL (0.60-1.30); GFR ESTIMATED 54
[2021-04-05 23:44] LABS: BUN/CREATININE RATIO 25
[2021-04-05 23:46] LABS: ALANINE AMINOTRANSFERASE 83 U/L (0-55); MAGNESIUM 1.9 MG/DL (1.6-2.4)
[2021-04-05 23:47] LABS: CREATINE KINASE 158 U/L (30-200)
[2021-04-06 00:09] LABS: ERYTHROCYTE SEDIMENTATION RATE 17 MM/HR (0-30)
[2021-04-06] MEDS ORDERED: LACTATED RINGERS 1,000 ML IV ONE (01:00)
[2021-04-06 03:15] VITALS: BP 123/62
[2021-04-06] MEDS: D5 1/2 NS W/KCL 20 MEQ/L 1,000 ML IV SCH ×3 (03:44→17:56)
--- NOTE | 2021-04-06 03:58 | Diagnostic Imaging Report ---
PROCEDURE: CT head and CT cervical spine without contrast. TECHNIQUE: Multiple contiguous axial images were obtained through the brain and cervical spine without the use of intravenous contrast. Sagittal and coronal reformations through the cervical spine were then performed. Auto Exposure Controls were utilized during the CT exam to meet ALARA standards for radiation dose reduction. INDICATION: Trauma, falls, pain COMPARISON: 09/17/2017 FINDINGS: No intracranial hemorrhage. Mild atrophy. No intracranial mass, mass effect, midline shift, herniation, hydrocephalus, or extra-axial fluid collection. No CT evidence of an acute ischemic infarction. Background vascular calcifications are present. The left ocular lens is absent. Mucosal thickening within the frontal sinuses as well as predominant opacification of the right sided ethmoidal air cells. Complete opacification of the right maxillary sinus is noted with associated prominent right maxillary periapical lucency. The calvarium and extracalvarial soft tissues are unremarkable. No significant anterolisthesis or retrolisthesis. Alignment of the atlantooccipital joint is well maintained. Chronic mild vertebral body height loss within the lower cervical spine. No evidence of a recent vertebral body compression deformity. No acute fracture or dislocation. No destructive osseous process. Moderate to severe disc space height loss at C5/C6, C6/C7 and C7/T1 with associated anterior and lateral osteophyte formation. Scattered facet joint degenerative changes and uncovertebral joint hypertrophy. No severe osseous central canal stenosis. No apical pneumothorax. Calcified granuloma within the right upper lobe. Paraspinal soft tissues are unremarkable. IMPRESSION: No acute intracranial abnormality with mild atrophy present. No acute osseous abnormality with moderate multilevel degenerative changes as described above. Right-sided paranasal sinus disease. Agree with preliminary interpretation. Dictated by: Dictated on workstation # [id number]
--- NOTE | 2021-04-06 04:11 | Diagnostic Imaging Report ---
PROCEDURE: CT thoracic and lumbar spine without contrast. TECHNIQUE: Multiple contiguous axial images were obtained through the thoracic and lumbar spine without the use of intravenous contrast. Sagittal and coronal reformations were then performed. All CT scans use one or more of the following dose optimizing techniques: automated exposure control, MA and/or KvP adjustment based on a patient size and exam type, or iterative reconstruction. INDICATION: Neuro deficit, falls COMPARISON: Imaging from the same date as well as from 09/17/2017 FINDINGS: No significant anterolisthesis or retrolisthesis. Scattered endplate degenerative changes and Schmorl's nodes are identified. Vertebral body heights are otherwise well-maintained. No acute fracture or dislocation. No destructive osseous process. Multilevel disc space height loss, particularly within the lumbar spine. Significant facet joint degenerative changes. Multilevel disc bulges and disc osteophyte complex. There is resulting multilevel central canal stenosis, including relatively high-grade central canal stenosis at L1/L2, L2/L3, L3/L4, and L4/L5. Multilevel neuroforaminal stenosis is also present. Nonobstructing left renal calculus. Background vascular calcifications. Calcified splenic granuloma. Calcified granuloma within the lungs. IMPRESSION: No acute osseous abnormality with moderate multilevel degenerative changes. Multilevel central canal and neuroforaminal stenosis, including multilevel relatively high-grade central canal stenosis within the lumbar spine. If there is concern for underlying radiculopathy, further evaluation with MRI could be considered. Agree with preliminary interpretation. Dictated by: Dictated on workstation # [id number]
--- NOTE | 2021-04-06 05:40 | Diagnostic Imaging Report ---
Reason for examination: Pain after trauma. AP view of the pelvis was obtained and compared to 12:18 AM. Postsurgical changes and clips in the pelvis with no widening of the SI joints or pubic symphysis. No fracture of the pubic rami or acetabuli. Proximal femurs and hip joints are intact. IMPRESSION: 1. No acute fracture of the pelvis on plain radiograph. If symptoms are persistent or if clinical concern remains, consider CT. Dictated by: Dictated on workstation # [id number]
--- NOTE | 2021-04-06 05:41 | Diagnostic Imaging Report ---
Reason for examination: Chest pain and trauma. Semiupright AP portable chest was obtained and compared to 10/30/2019. Cardiac silhouette is within normal limits. Low lung volumes with bibasilar atelectasis and chronic elevation of the right hemidiaphragm. Prominent upper right mediastinal contour is probably related to vascular ectasia. No heart failure, large effusion or pneumothorax. IMPRESSION: 1. Low lung volumes with bibasilar atelectasis. Dictated by: Dictated on workstation # [id number]
[2021-04-06 08:42] VITALS: BP 147/68
[2021-04-06] MEDS ORDERED: HYDR25TA4 PO (11:26)
[2021-04-06] MEDS ORDERED: DONE5TAB30 PO (11:26)
[2021-04-06] MEDS ORDERED: PREG100C55 PO (11:26)
[2021-04-06] MEDS ORDERED: BENZ-36 PO (11:26)
[2021-04-06] MEDS ORDERED: CHOL200059 PO (11:26)
--- NOTE | 2021-04-06 11:52 | History & Physical ---
HPI History of Present Illness: Pt states he doesn't know why he is in the hospital. He says he has been having pain in his back and some pain in his left side. He doesn't recall what has been going on, says he came to the hospital by ambulance. He says he hit the back of his head in the shower a couple of days ago. He states he live at home and den ies sick contacts. He normally uses 3 lpm supplemental oxygen. Per ER notes, he fell in the bathroom and his couldn't get him up. Source: patient Exam Limitations: clinical condition Date seen by provider: Apr 06, 2021 Time Seen by Provider: 11:50 Attending Physician Taina Castro MD PCP Aashish Renteria Consult Date of Admission Apr 06, 2021 at 01:40 Home Medications Home Medications Reviewed patient Home Medication Reconciliation performed by pharmacy medication reconciliations lab animal technician and/or nursing. Patients Allergies have been reviewed. Allergies Coded Allergies: Serotonin 5HT-3 Antagonists (Unverified Allergy, Unknown, 11/25/17) Tricyclic Compounds (Unverified Allergy, Unknown, 11/25/17) codeine (Verified Allergy, Unknown, 04/07/06) hydrocodone (Unverified Allergy, Unknown, 10/16/15) aspirin (Unverified Adverse Reaction, Mild, STOMACH IRRITATION, 11/25/17) VDP-Trowhb-Nglljt Hx Patient Social History Smoking Status: Former Smoker Former smoker/When Quit: May 26, 1959 2nd Hand Smoke Exposure: No Recent Hopitalizations: No Alcohol Use?: No Tobacco type used: Cigarettes Have you traveled recently?: No Immunizations Up To Date Tetanus Booster (TDap): Unknown Influenza Vaccine Up-to-Date: Yes; Up-to-Date First/Initial COVID19 Vaccinat: NOV 2020 Second COVID19 Vaccination Jack: DEC 2020 Past Medical History PMHx: COPD, supplemental oxygen dependent HTN Prostate cancer DMII Osteoarthritis of multiple joints Dementia GERD Anxiety Hyperlipidemia Allergic rhinitis Alzheimer disease SurgHx: Prostatectomy Hernia repair x 2 Cataract Wrist fracture Right eyelid basal cell carcinoma removal Family Medical History Significant Family History: Heart Disease, Lung Disease Other Significan Family Hx: CHRONIC GENERALIZED WEAKNESS, FREQUENT FALLS VERY POOR/VERY MINIMAL MOBILITY--HAS POWER CHAIR AND WALKER, WHICH HE HAS REFUSED TO USE AT HOME CHRONIC BILATERAL KNEE PAIN RIGHT EYELID BASAL 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 CHRONIC BLEPHARITIS Family History: FH: breast cancer G8 SISTER Myocardial infarction 19 FATHER Review of Systems ([facility]) Constitutional: No dizziness EENTM: nose congestion, throat pain (sometimes, intermittent) Respiratory: short of breath (sometimes) Cardiovascular: chest pain (when blood pressure is high) Gastrointestinal: No abdominal pain, No constipation; diarrhea; No melena, No nausea; vomiting (yesterday, states he found out he's not supposed to have milk) Genitourinary: No hesitancy Musculoskeletal: joint pain Skin: No rash Psychiatric/Neurological: Headache Reviewed Test Results Reviewed Test Results Lab Laboratory Tests Test 04/05/21 23:10 04/05/21 23:12 04/05/21 23:15 04/05/21 23:52 Range/Units White Blood Count 10.5 4.3-11.0 10^3/uL Red Blood Count 4.59 4.30-5.52 10^6/uL Hemoglobin 12.9 L 13.3-17.7 g/dL Hematocrit 41 40-54 % Mean Corpuscular Volume 90 80-99 fL Mean Corpuscular Hemoglobin 28 25-34 pg Mean Corpuscular Hemoglobin Concent 31 L 32-36 g/dL Red Cell Distribution Width 13.3 10.0-14.5 % Platelet Count 212 130-400 10^3/uL Mean Platelet Volume 9.8 9.0-12.2 fL Immature Granulocyte % (Auto) 1 % Neutrophils (%) (Auto) 83 H 42-75 % Lymphocytes (%) (Auto) 9 L 12-44 % Monocytes (%) (Auto) 8 0-12 % Eosinophils (%) (Auto) 0 0-10 % Basophils (%) (Auto) 0 0-10 % Neutrophils # (Auto) 8.6 H 1.8-7.8 10^3/uL Lymphocytes # (Auto) 0.9 L 1.0-4.0 10^3/uL Monocytes # (Auto) 0.8 0.0-1.0 10^3/uL Eosinophils # (Auto) 0.0 0.0-0.3 10^3/uL Basophils # (Auto) 0.0 0.0-0.1 10^3/uL Immature Granulocyte # (Auto) 0.1 0.0-0.1 10^3/uL Erythrocyte Sedimentation Rate 17 0-30 MM/HR Prothrombin Time 16.0 H 12.2-14.7 SEC INR Comment 1.2 0.8-1.4 Activated Partial Thromboplast Time 33 24-35 SEC Sodium Level 138 135-145 MMOL/L Potassium Level 3.8 3.6-5.0 MMOL/L Chloride Level 105 98-107 MMOL/L Carbon Dioxide Level 18 L 21-32 MMOL/L Anion Gap 15 H 5-14 MMOL/L Blood Urea Nitrogen 32 H 7-18 MG/DL Creatinine 1.27 0.60-1.30 MG/DL Estimat Glomerular Filtration Rate 54 BUN/Creatinine Ratio 25 Glucose Level 139 H 70-105 MG/DL Calcium Level 8.8 8.5-10.1 MG/DL Corrected Calcium 8.7 8.5-10.1 MG/DL Magnesium Level 1.9 1.6-2.4 MG/DL Total Bilirubin 0.4 0.1-1.0 MG/DL Aspartate Amino Transf (AST/SGOT) 153 H 5-34 U/L Alanine Aminotransferase (ALT/SGPT) 83 H 0-55 U/L Alkaline Phosphatase 56 40-136 U/L Total Creatine Kinase 158 30-200 U/L Creatine Kinase MB 1.0 <6.6 NG/ML Myoglobin 175.3 H 10.0-92.0 NG/ML Troponin I < 0.028 <0.028 NG/ML C-Reactive Protein High Sensitivity 3.50 H 0.00-0.50 MG/DL B-Type Natriuretic Peptide 24.3 <100.0 PG/ML Total Protein 8.0 6.4-8.2 GM/DL Albumin 4.1 3.2-4.5 GM/DL Blood Gas Puncture Site RIGHT RADIAL Blood Gas Patient Temperature 36.2 Arterial Blood pH 7.35 L 7.37-7.43 Arterial Blood Partial Pressure CO2 37 35-45 MMHG Arterial Blood Partial Pressure O2 62 L 79-93 MMHG Arterial Blood HCO3 20 L 23-27 MMOL/L Arterial Blood Total CO2 20.7 L 21.0-31.0 MMOL/L Arterial Blood Oxygen Saturation 90 L 94-100 % Arterial Blood Base Excess -5.3 L -2.5-2.5 MMOL/L Barber Test YES-POS Blood Gas Ventilator Setting NO Blood Gas Inspired Oxygen 4L Influenza Type A Antigen NEGATIVE NEGATIVE Influenza Type B Antigen NEGATIVE NEGATIVE SARS-CoV-2 RNA (RT-PCR) Negative Negative Radiology CT head/neck 04/05: IMPRESSION: No acute intracranial abnormality with mild atrophy present. No acute osseous abnormality with moderate multilevel degenerative changes Right-sided paranasal sinus disease. CXR: low lung volumes with bibasilar atalectasis CT thoracic/lumbar spine 04/05: IMPRESSION: No acute osseous abnormality with moderate multilevel degenerative changes. Multilevel central canal and neuroforaminal stenosis, including multilevel relatively high-grade central canal stenosis within the lumbar spine. If there is concern for underlying radiculopathy, further evaluation with MRI could be considered. Pelvic xray 04/05: IMPRESSION: 1. No acute fracture of the pelvis on plain radiograph. If symptoms are persistent or if clinical concern remains, consider CT. Physical Exam-([facility]) Physical Exam Vital Signs VS - Last 72 Hours, by Label 04/05/21 04/05/21 04/05/21 04/06/21 22:58 22:58 22:58 02:45 Temp 36.2 36.2 Pulse 101 87 Resp 24 20 B/P (MAP) 115/50 (71) 144/75 Pulse Ox 90 93 O2 Delivery Nasal Cannula Nasal Cannula Room Air OxyMask O2 Flow Rate 3.00 3.00 3.00 6.00 04/06/21 04/06/21 04/06/21 04/06/21 03:15 04:37 08:00 08:42 Temp 36.8 36.6 Pulse 90 82 Resp 24 22 B/P (MAP) 123/62 (82) 147/68 (94) Pulse Ox 96 93 O2 Delivery OxyMask OxyMask OxyMask OxyMask O2 Flow Rate 6.00 6.00 6.00 6.00 04/06/21 12:12 Temp 37.2 Pulse 78 Resp 18 B/P (MAP) 125/60 (81) Pulse Ox 96 O2 Delivery OxyMask O2 Flow Rate 6.00 Capillary Refill : Less Than 3 Seconds General Appearance: no apparent distress HEENT: other (right eye with abnormal eyelid, drooping lower; erythematous lesion on left temporal area) Respiratory: lungs clear, no respiratory distress Cardiovascular: regular rate, rhythm, no murmur Gastrointestinal: normal bowel sounds, soft, other (ttp left upper lateral side near ribs, no bruising, no crepitus or rib stepoffs palpated) Extremities: pedal edema (trace) Neurologic/Psychiatric: alert, normal mood/affect Skin: warm/dry Assessment/Plan Assessment/Plan Admission Status: Inpatient Order (span 2 midnights) Reason for Inpatient Admission: Acute on chronic respiratory failure (1) Status post fall Status: Acute Assessment & Plan: Imaging of head, spine and pelvis okay. PT/OT. (2) Acute on chronic respiratory failure with hypoxia Status: Acute Assessment & Plan: Uncertain etiology, CXR without infiltrate and no leukocytosis, no wheezing, influenza neg. Suspect possibly secondary to pain in rib area from fall with subsequent poor respiratory effort. IS, supplemental oxygen as needed. COVID19 pending. (3) BPH (benign prostatic hyperplasia) Status: Chronic Assessment & Plan: Resume home medications, had to straight cath this am, monitor closely. (4) Sinusitis Status: Acute Assessment & Plan: Unclear if acute or chronic, noted on CT, but is complaining of congestion and headache and had fall which could possibly be secondary to dizziness, will start Augmentin. Qualifiers: Qualified Codes: J01.01 - Acute recurrent maxillary sinusitis (5) Alzheimer disease Status: Chronic Assessment & Plan: Resume home medications. (6) Hypertension Status: Chronic Assessment & Plan: Resume home medications. Qualifiers: Qualified Codes: I10 - Essential (primary) hypertension (7) Type 2 diabetes mellitus Status: Chronic Assessment & Plan: Hold home metformin and glipizide, borderline renal function and blood sugar okay on admit. Diabetic diet, sliding scale insulin. (8) COPD (chronic obstructive pulmonary disease) Status: Chronic Assessment & Plan: No wheezing, no clear evidence of exacerbation. Continue albuterol. (9) Generalized weakness Status: Acute (10) Falls frequently Status: Acute Assessment & Plan: Has been recommended to go to nursing facility in past, but he and have declined previously. Reassess after improvement in acute hypoxia, discussed possible need for higher level of care on d/c. (11) DVT prophylaxis Status: Acute Assessment & Plan: Enoxaparin TAINA CASTRO MD Apr 06, 2021 11:52
[2021-04-06] MEDS ORDERED: guaiFENesin/DM (ROBITUSSIN DM) 10 ML UDC PO PRN (12:00)
[2021-04-06 12:12] VITALS: BP 125/60
[2021-04-06] MEDS ORDERED: ARTIFICAL TEARS 0.4 ML UNIT DOSE (REFRESH PLUS) OU PRN (13:30)
[2021-04-06] MEDS: PREGABALIN 100 MG (LYRICA) CAPSULE PO SCH ×2 (14:02→22:01)
[2021-04-06] MEDS ORDERED: RT-ALBUTEROL HFA 8.5 GM INHALER IH PRN (14:15)
--- NOTE | 2021-04-06 14:43 | Physical Therapy Evaluation ---
PT Evaluation-General Medical Diagnosis Admission Date Apr 06, 2021 at 01:40 Medical Diagnosis: GENERALIZED WEAKNESS, DEHYDRATION, multiple falls, resp. failure Onset Date: Apr 05, 2021 Therapy Diagnosis Therapy Diagnosis: impaired mobility, strength, endurance Height/Weight Height (Feet): 5 Height (Inches): 8.00 Weight (Pounds): 250 Weight (Ounces): 6.0 Precautions Precautions/Isolations: Contact Isolation, Droplet Isolation, Fall Prevention Referral Physician: Matthew Reason for Referral: Evaluation/Treatment Medical History Pertinent Medical History: COPD, DM, HTN Additional Medical History Past Medical History PMHx: COPD, supplemental oxygen dependent HTN Prostate cancer DMII Osteoarthritis of multiple joints Dementia GERD Anxiety Hyperlipidemia Allergic rhinitis Alzheimer disease SurgHx: Prostatectomy Hernia repair x 2 Cataract Wrist fracture Right eyelid basal cell carcinoma removal Social History Current Living Status: Spouse Entry Into Home: Ramp Prior Prior Level of Function SCALE: Activities may be completed with or without assistive devices. 8-Wvpqcukrnz-buehmkf completes the activity by him/herself with no assistance from a helper. 5-Set-up or Clean-up Assistance-helper sets up or cleans up; patient completes activity. [place] assists only prior to or following the activity. 4-Supervision or Touching Assistance-helper provides verbal cues and/or touching/steadying and/or contact guard assistance as patient completes activity. Assistance may be provided throughout the activity or intermittently. 3-Partial/Moderate Assistance-helper does LESS THAN HALF the effort. [place] lifts, holds or supports trunk or limbs, but provides less than half the effort. 2-Substantial/Maximal Assistance-helper does MORE THAN HALF the effort. [place] lifts or holds trunk or limbs and provides more than half the effort. 5-Iytqzydzu-nnjxyf does ALL the effort. Patient does none of the effort to complete the activity. Or, the assistance of 2 or more helpers is required for the patient to complete the activity. If activity was not attempted, code reason: 7-Patient Refused. 9-Not Applicable-not attempted and the patient did not perform the activity before the current illness, exacerbation or injury. 10-Not Attempted due to Environmental Limitations-(lack of equipment, weather restraints, etc.). 88-Not Attempted due to Medical Conditions or Safety Concerns. Bed Mobility: 3 Transfers (B,C,W/C): 3 Gait: 3 Indoor Mobility (Ambulation): Needed Some Help Prior Devices Use: Motorized scooter, Walker hospital note states he has a scooter and walker but doesn't use them very often, patient states his helps him with transfers PT Evaluation-Current Subjective Patient in bed pre tx, agrees to PT, has no complaints of pain. Pt/Family Goals none stated Objective Patient Orientation: Person, Confused ROM/Strength ROM Lower Extremities WNL Strength Lower Extremities grossly 3+/5 BLE Sensory Hearing: Functional Transfers Roll Left to Right (QC): 3 Assisted nursing with rolling to clean BM and urine and change bedding. Afterward nurse attempts to get urinary catheter in and then wound care nurse comes in to assess. Assessment/Needs Patient in bed post tx with nurse call, phone, tray, all needs met. Patient has impaired mobility, strength, endurance. Needs min assist for rolling. Rehab Potential: Fair PT Senior Marketing Data Analyst Goals Senior Marketing Data Analyst Goals PT Senior Marketing Data Analyst Goals Time Frame: Apr 13, 2021 Roll Left & Right (QC): 4 Sit to Lying (QC): 4 Lying-Sitting on Side/Bed(QC): 4 Sit to Stand (QC): 4 Chair/Xhk-qm-Tcthg Xfer(QC): 4 PT Plan Problem List Problem List: Activity Tolerance, Functional Strength, Safety, Balance, Gait, Transfer, Bed Mobility, ROM Treatment/Plan Treatment Plan: Continue Plan of Care Treatment Plan: Bed Mobility, Education, Functional Activity Eddy, Functional Strength, Gait, Safety, Therapeutic Exercise, Transfers Treatment Duration: Apr 13, 2021 Frequency: 6 times per week Estimated Hrs Per Day: .25 hour per day Patient and/or Family Agrees t: Yes Safety Risks/Education Patient Education: Correct Positioning, Safety Issues Teaching Recipient: Patient Teaching Methods: Demonstration, Discussion Response to Teaching: Reinforcement Needed Discharge Recommendations Plan Patient will perform bed mobility and transfer training, balance and endurance training, functional strengthening, gait training, and education, to improve functional mobility and independence at home. Therapy Discharge Recommendati: 24 Hour Supervision, Post Acute PT Time/GCodes Time In: 1425 Time Out: 1435 Total Billed Treatment Time: 10 Total Billed Treatment 1 visit YUE VANN PT Apr 06, 2021 14:42
--- NOTE | 2021-04-06 14:53 | Occupational Therapy Eval ---
OT Evaluation-General/PLF Medical Diagnosis Admission Date Apr 06, 2021 at 01:40 Medical Diagnosis: GENERALIZED WEAKNESS, DEHYDRATION, multiple falls, resp. failure Onset Date: Apr 05, 2021 Therapy Diagnosis Therapy Diagnosis: decreased ADL status Height/Weight Height (Feet): 5 Height (Inches): 8.00 Weight (Pounds): 250 Weight (Ounces): 6.0 Precautions Precautions/Isolations: Contact Isolation, Droplet Isolation, Fall Prevention Referral Physician: Matthew Referral Reason: Evaluation/Treatment Medical History Pertinent Medical History: COPD, DM, HTN Additional Medical History PMHx: COPD, supplemental oxygen dependent HTN Prostate cancer DMII Osteoarthritis of multiple joints Dementia GERD Anxiety Hyperlipidemia Allergic rhinitis Alzheimer disease SurgHx: Prostatectomy Hernia repair x 2 Cataract Wrist fracture Right eyelid basal cell carcinoma removal Current History Fall at home, pt's unable to get him up. Social History Current Living Status: Spouse Entry Into Home: [facility] ADL-Prior Level of Function SCALE: Activities may be completed with or without assistive devices. 3-Eulgctyaqx-yelvcnd completes the activity by him/herself with no assistance from a helper. 5-Set-up or Clean-up Assistance-helper sets up or cleans up; patient completes activity. [place] assists only prior to or following the activity. 4-Supervision or Touching Assistance-helper provides verbal cues and/or touching/steadying and/or contact guard assistance as patient completes activity. Assistance may be provided throughout the activity or intermittently. 3-Partial/Moderate Assistance-helper does LESS THAN HALF the effort. [place] lifts, holds or supports trunk or limbs, but provides less than half the effort. 2-Substantial/Maximal Assistance-helper does MORE THAN HALF the effort. [place] lifts or holds trunk or limbs and provides more than half the effort. 3-Tvoavbtif-wmafmk does ALL the effort. Patient does none of the effort to complete the activity. Or, the assistance of 2 or more helpers is required for the patient to complete the activity. If activity was not attempted, code reason: 7-Patient Refused. 9-Not Applicable-not attempted and the patient did not perform the activity before the current illness, exacerbation or injury. 10-Not Attempted due to Environmental Limitations-(lack of equipment, weather restraints, etc.). 88-Not Attempted due to Medical Conditions or Safety Concerns. ADL PLOF Comments Pt indicates he requires assistance with all ADLs at PLOF. He has a walker and w/c at home but doesn't use. Per chart review pt and have 24 hour caregivers and home health nursing care. Self Care: Needed Some Help Functional Cognition: Needed Some Help DME/Equipment: Bath Chair, Shower OT Current Status Subjective Pt in bed, nurse present. Mental Status/Objective Patient Orientation: Person Attachments: Oxygen (OxyMask) Current Upper Extremity ROM BUE shoulder flexion to approx 140 degrees ADL-Treatment Lower Body Dressing (QC): 1 (Per clincial judgment.) On/Off Footwear (QC): 1 (total assist) Toileting Hygiene (QC): 1 (Total assist with hygiene at bed level.) Other Treatments Pt rolled side to side with min A in order to clean BM and urine and change linens. Nurse present to attempt catheterization and wound care nurse present for assessment. Post tx, pt in bed, nurses present, call light in reach. Education OT Patient Education: Correct positioning, Energy conservation, Exercise program, Modified ADL techniques, Progress toward Goal/Update tx plan, Purpose of tx/functional activities, Rehab process, Safety issues Teaching Recipient: Patient Teaching Methods: Discussion Response to Teaching: Verbalize Understanding OT Die Casting Supervisor Goals Jail Goals Time Frame: Apr 20, 2021 Eating (QC): 5 Oral Hygiene (QC): 4 Toileting Hygiene (QC): 3 Shower/Bathe Self (QC): 2 Upper Body Dressing (QC): 3 Lower Body Dressing (QC): 2 Additional Goals: 1-Demonstrate ADL Tasks, 2-Verbalize Understanding, 3- ImproveStrength/Eddy 1=Demonstrate adherence to instructed precautions during ADL tasks. 2=Patient will verbalize/demonstrate understanding of assistive devices/modifications for ADL. 3=Patient will improve strength/tolerance for activity to enable patient to perform ADL's. OT Education/Plan Problem List/Assessment Assessment: Decreased Activ Tolerance, Decreased UE Strength, Impaired Funct Balance, Impaired I ADL's, Impaired Self-Care Skills, Restricted Funct UE ROM Discharge Recommendations Plan/Recommendations: Continue POC Treatment Plan/Plan of Care Patient would benefit from OT for education, treatment and training to promote independence in ADL's, mobility, safety and/or upper extremity function for ADL's. Plan of Care: ADL Retraining, Functional Mobility, UE Funct Exercise/Act Treatment Duration: Apr 20, 2021 Frequency: 3 times per week (3-5 times per week.) Rehab Potential: Fair Time/GCodes Start Time: 14:25 Stop Time: 14:35 Total Time Billed (hr/min): 10 Billed Treatment Time 1, GLO ALW OT Apr 06, 2021 14:52
[2021-04-06 15:30] VITALS: BP 132/60
[2021-04-06] MEDS: ENOXAPARIN 40 MG/0.4 ML (LOVENOX) SYR SQ SCH (15:56)
[2021-04-06] MEDS: inSUlin ASPART (NovoLOG) 1 UNIT/0.01 ML (CHARGE PER UNIT) SC SCH ×2 (16:57→20:55)
[2021-04-06] MEDS ORDERED: NON-FORMULARY MEDICATION 1 EA EA (Mirabegron (Myrbetriq) 25 MG) PO SCH (17:00)
[2021-04-06] MEDS: doxAzosin 4 MG (CARDURA) TAB PO SCH (17:31)
[2021-04-06] MEDS: AUGMENTIN 875 MG TAB (AMOXICILLIN/CLAVULANATE) PO SCH (17:31)
[2021-04-06 19:59] VITALS: BP 127/60
[2021-04-06] MEDS ORDERED: RT-ALBUTEROL SULF 2.5 MG/3 ML PRE-MIX VIAL ONE (20:59)
[2021-04-06] MEDS ORDERED: NYSTATIN CREAM (MYCOSTATIN) 30 GM TUBE TP SCH (21:00)
[2021-04-06] MEDS ORDERED: VILAZODONE HYDROCHLORIDE 10 MG PO SCH (21:00)
[2021-04-06] MEDS: RT-ALBUTEROL SULF 2.5 MG/3 ML PRE-MIX VIAL INH SCH (21:01)
[2021-04-06] MEDS: NYSTATIN CREAM (MYCOSTATIN) 30 GM TUBE TP SCH (22:00)
[2021-04-06] MEDS: BENZONATATE 100 MG (TESSALON) CAPSULE PO SCH (22:01)
[2021-04-06] MEDS: DONEPEZIL 5 MG (ARICEPT) TAB PO SCH (22:01)
[2021-04-06] MEDS: LORATADINE (CLARITIN) 10 MG TAB PO SCH (22:01)
[2021-04-07] VITALS: BP 113/66
[2021-04-07] MEDS: D5 1/2 NS W/KCL 20 MEQ/L 1,000 ML IV SCH (03:24)
[2021-04-07 03:25] VITALS: BP 114/57
[2021-04-07 05:35] LABS: BASOPHILS % (AUTO) 0 % (0-10); EOSINOPHILS # (AUTO) 0.1 10^3/uL (0.0-0.3); EOSINOPHILS % (AUTO) 1 % (0-10); HEMATOCRIT 39 % (40-54); HEMOGLOBIN 12.1 g/dL (13.3-17.7); LYMPHOCYTES # (AUTO) 1.6 10^3/uL (1.0-4.0); LYMPHOCYTES % (AUTO) 20 % (12-44); MEAN CORPUSCULAR HEMOGLOBIN 28 pg (25-34); MEAN CORPUSCULAR HGB CONC 31 g/dL (32-36); MEAN CORPUSCULAR VOLUME 90 fL (80-99); MEAN PLATELET VOLUME 10.3 fL (9.0-12.2); MONOCYTES % (AUTO) 13 % (0-12); NEUTROPHILS # (AUTO) 5.4 10^3/uL (1.8-7.8); NEUTROPHILS % (AUTO) 66 % (42-75); PLATELET COUNT 180 10^3/uL (130-400); WHITE BLOOD COUNT 8.2 10^3/uL (4.3-11.0)
[2021-04-07 06:00] LABS: ALBUMIN 3.5 GM/DL (3.2-4.5); POTASSIUM 3.7 MMOL/L (3.6-5.0)
[2021-04-07 06:01] LABS: CALCIUM 7.7 MG/DL (8.5-10.1)
[2021-04-07 06:02] LABS: TOTAL PROTEIN 6.9 GM/DL (6.4-8.2)
[2021-04-07 06:04] LABS: BILIRUBIN,TOTAL 0.4 MG/DL (0.1-1.0)
[2021-04-07] MEDS: inSUlin ASPART (NovoLOG) 1 UNIT/0.01 ML (CHARGE PER UNIT) SC SCH ×4 (06:04→21:40)
[2021-04-07 06:06] LABS: CREATININE SERUM 0.84 MG/DL (0.60-1.30)
[2021-04-07] MEDS: RT-ALBUTEROL SULF 2.5 MG/3 ML PRE-MIX VIAL INH SCH ×3 (07:18→20:34)
[2021-04-07 08:00] VITALS: BP 129/64
--- NOTE | 2021-04-07 09:41 | Progress Note - Hospitalist ---
Subjective HPI/CC On Admission Date Seen by Provider: Apr 07, 2021 Time Seen by Provider: 12:30 Subjective/Events-last exam Patient doing better Covid swab negative Wants to go home soon Check meds labs Review of Systems General: Fatigue Pulmonary: Dyspnea Objective Exam Vital Signs Vital Signs Date Time Temp Pulse Resp B/P (MAP) Pulse Ox O2 Delivery O2 Flow Rate FiO2 04/07/21 20:35 94 Nasal Cannula 3.00 04/07/21 19:36 35.9 79 18 124/58 (80) Capillary Refill : Less Than 3 Seconds General Appearance: No Apparent Distress, WD/WN, Chronically ill Respiratory: No Accessory Muscle Use, No Respiratory Distress, Decreased Breath Sounds, Wheezing Cardiovascular: Regular Rate, Rhythm Neurologic/Psychiatric: Alert, Oriented x3 Results/Procedures Lab Laboratory Tests 04/07/21 05:02 Patient resulted labs reviewed. Assessment/Plan Assessment and Plan Assess & Plan/Chief Complaint Assessment: Acute on chronic respiratory failure Sinusitis placed on Augmentin Severe debility needs senior care but declines Blindness Plan: Sinusitis treatment Oxygen supplementation Supportive care MARSHAL SANDERS DO Apr 07, 2021 09:41
[2021-04-07] MEDS: VITAMIN D3 25 MCG (1,000 UNITS) TABLET PO SCH (10:17)
[2021-04-07] MEDS: AUGMENTIN 875 MG TAB (AMOXICILLIN/CLAVULANATE) PO SCH ×2 (10:17→18:40)
[2021-04-07] MEDS: PREGABALIN 100 MG (LYRICA) CAPSULE PO SCH ×3 (10:17→22:03)
[2021-04-07] MEDS: FLUTICASONE NASAL SPRAY (FLONASE) 16 GM BTL NS SCH (10:17)
[2021-04-07] MEDS: amLODIPine 10 MG (NORVASC) TAB PO SCH (10:17)
[2021-04-07] MEDS: RIVASTIGMINE 4.6 MG PATCH (EXELON) TD SCH (10:17)
[2021-04-07] MEDS: NYSTATIN CREAM (MYCOSTATIN) 30 GM TUBE TP SCH ×3 (10:18→22:04)
[2021-04-07 12:00] VITALS: BP 127/59
--- NOTE | 2021-04-07 13:57 | Physical Therapy Daily Note ---
PT Daily Note-Current Subjective States that he is feeling okay. Transfers SCALE: Activities may be completed with or without assistive devices. 0-Zhtocorxcc-tlyardf completes the activity by him/herself with no assistance from a helper. 5-Set-up or Clean-up Assistance-helper sets up or cleans up; patient completes activity. [place] assists only prior to or following the activity. 4-Supervision or Touching Assistance-helper provides verbal cues and/or touching/steadying and/or contact guard assistance as patient completes activity. Assistance may be provided throughout the activity or intermittently. 3-Partial/Moderate Assistance-helper does LESS THAN HALF the effort. [place] lifts, holds or supports trunk or limbs, but provides less than half the effort. 2-Substantial/Maximal Assistance-helper does MORE THAN HALF the effort. [place] lifts or holds trunk or limbs and provides more than half the effort. 5-Qdamqaovr-kdokub does ALL the effort. Patient does none of the effort to complete the activity. Or, the assistance of 2 or more helpers is required for the patient to complete the activity. If activity was not attempted, code reason: 7-Patient Refused. 9-Not Applicable-not attempted and the patient did not perform the activity before the current illness, exacerbation or injury. 10-Not Attempted due to Environmental Limitations-(lack of equipment, weather restraints, etc.). 88-Not Attempted due to Medical Conditions or Safety Concerns. Roll Left & Right (QC): 5 Sit to Lying (QC): 5 Lying to Sitting/Side of Bed(Q: 5 Sit to Stand (QC): 5 Gait Training Does the Patient Walk?: Yes Distance: 75 Walk 10 feet (QC): 5 Walk 50 ft with 2 Turns(QC): 5 Gait Persons Needed: 1 Gait Assistive Device: FWW Assessment Current Status: Excellent Progress Patient did well with ambulation today. PT Machinist Linotype Goals Machinist Linotype Goals PT Machinist Linotype Goals Time Frame: Apr 13, 2021 Roll Left & Right (QC): 4 Sit to Lying (QC): 4 Lying-Sitting on Side/Bed(QC): 4 Sit to Stand (QC): 4 Chair/Tys-fx-Qtqqc Xfer(QC): 4 PT Plan Treatment/Plan Treatment Plan: Continue Plan of Care Treatment Plan: Bed Mobility, Education, Functional Activity Eddy, Functional Strength, Gait, Safety, Therapeutic Exercise, Transfers Treatment Duration: Apr 13, 2021 Frequency: 6 times per week Estimated Hrs Per Day: .25 hour per day Patient and/or Family Agrees t: Yes Time/GCodes Time In: 1335 Time Out: 1350 Total Billed Treatment Time: 15 Total Billed Treatment 1, GT x 15 TAYLOR AGUILLON PT Apr 07, 2021 13:56
[2021-04-07] MEDS: ENOXAPARIN 40 MG/0.4 ML (LOVENOX) SYR SQ SCH (14:47)
[2021-04-07 15:36] VITALS: BP 121/59
[2021-04-07] MEDS: doxAzosin 4 MG (CARDURA) TAB PO SCH (18:40)
[2021-04-07 19:36] VITALS: BP 124/58
[2021-04-07] MEDS: BENZONATATE 100 MG (TESSALON) CAPSULE PO SCH (22:03)
[2021-04-07] MEDS: DONEPEZIL 5 MG (ARICEPT) TAB PO SCH (22:03)
[2021-04-07] MEDS: LORATADINE (CLARITIN) 10 MG TAB PO SCH (22:03)
[2021-04-07] MEDS: MICONAZOLE 2% POWDER (DESENEX AF) 90 GM TOP SCH (22:04)
[2021-04-08 00:45] VITALS: BP 131/63
[2021-04-08 04:00] VITALS: BP 143/63
[2021-04-08] MEDS: inSUlin ASPART (NovoLOG) 1 UNIT/0.01 ML (CHARGE PER UNIT) SC SCH ×4 (05:25→20:29)
[2021-04-08 06:53] LABS: BASOPHILS % (AUTO) 0 % (0-10); EOSINOPHILS # (AUTO) 0.1 10^3/uL (0.0-0.3); EOSINOPHILS % (AUTO) 1 % (0-10); HEMATOCRIT 38 % (40-54); HEMOGLOBIN 12.2 g/dL (13.3-17.7); LYMPHOCYTES # (AUTO) 1.6 10^3/uL (1.0-4.0); LYMPHOCYTES % (AUTO) 17 % (12-44); MEAN CORPUSCULAR HEMOGLOBIN 28 pg (25-34); MEAN CORPUSCULAR HGB CONC 32 g/dL (32-36); MEAN CORPUSCULAR VOLUME 88 fL (80-99); MEAN PLATELET VOLUME 10.2 fL (9.0-12.2); MONOCYTES % (AUTO) 11 % (0-12); NEUTROPHILS # (AUTO) 6.8 10^3/uL (1.8-7.8); NEUTROPHILS % (AUTO) 71 % (42-75); PLATELET COUNT 208 10^3/uL (130-400); WHITE BLOOD COUNT 9.6 10^3/uL (4.3-11.0)
[2021-04-08 07:05] LABS: ALBUMIN 3.7 GM/DL (3.2-4.5); POTASSIUM 3.7 MMOL/L (3.6-5.0)
[2021-04-08 07:06] LABS: CALCIUM 8.1 MG/DL (8.5-10.1)
[2021-04-08 07:10] LABS: BILIRUBIN,TOTAL 0.5 MG/DL (0.1-1.0)
[2021-04-08 07:11] LABS: CREATININE SERUM 0.77 MG/DL (0.60-1.30)
[2021-04-08 08:00] VITALS: BP 131/59
--- NOTE | 2021-04-08 08:32 | Progress Note - Hospitalist ---
Subjective HPI/CC On Admission Date Seen by Provider: Apr 08, 2021 Time Seen by Provider: 13:30 Subjective/Events-last exam Patient about the same Nausea reported Added more meds for nausea Patient wants to go home Review of Systems Gastrointestinal: Nausea Objective Exam Vital Signs Vital Signs Date Time Temp Pulse Resp B/P (MAP) Pulse Ox O2 Delivery O2 Flow Rate FiO2 04/08/21 19:54 36.3 84 18 134/60 (84) 91 Nasal Cannula 3.00 Capillary Refill : Less Than 3 Seconds General Appearance: No Apparent Distress, WD/WN, Chronically ill Respiratory: Lungs Clear, Normal Breath Sounds Cardiovascular: Regular Rate, Rhythm Neurologic/Psychiatric: Alert, Oriented x3 Results/Procedures Lab Laboratory Tests 04/08/21 06:35 Patient resulted labs reviewed. Assessment/Plan Assessment and Plan Assess & Plan/Chief Complaint Assessment: Acute on chronic respiratory failure Sinusitis placed on Augmentin Severe debility needs correction but declines Blindness Plan: Sinusitis treatment Oxygen supplementation Supportive care 04/08/2021: Discharge home tomorrow with home health Really needs correction MARSHAL SANDERS DO Apr 08, 2021 08:32
[2021-04-08] MEDS: RT-ALBUTEROL SULF 2.5 MG/3 ML PRE-MIX VIAL INH SCH ×3 (08:44→21:25)
[2021-04-08] MEDS: NYSTATIN CREAM (MYCOSTATIN) 30 GM TUBE TP SCH ×3 (09:00→20:05)
[2021-04-08] MEDS: amLODIPine 10 MG (NORVASC) TAB PO SCH (09:32)
[2021-04-08] MEDS: RIVASTIGMINE 4.6 MG PATCH (EXELON) TD SCH (09:32)
[2021-04-08] MEDS: PREGABALIN 100 MG (LYRICA) CAPSULE PO SCH ×3 (09:32→20:05)
[2021-04-08] MEDS: VITAMIN D3 25 MCG (1,000 UNITS) TABLET PO SCH (09:32)
[2021-04-08] MEDS: AUGMENTIN 875 MG TAB (AMOXICILLIN/CLAVULANATE) PO SCH ×2 (09:32→18:01)
[2021-04-08] MEDS: PATCH REMOVAL TP SCH (09:33)
[2021-04-08] MEDS: FLUTICASONE NASAL SPRAY (FLONASE) 16 GM BTL NS SCH (09:33)
[2021-04-08] MEDS: MICONAZOLE 2% POWDER (DESENEX AF) 90 GM TOP SCH ×2 (09:35→20:05)
[2021-04-08 12:00] VITALS: BP 134/64
[2021-04-08] MEDS ORDERED: ONDANSETRON 4 MG (ZOFRAN) ORAL DISSOLVE TAB PO PRN (13:30)
[2021-04-08] MEDS ORDERED: DOCUSATE SODIUM 100 MG (COLACE) CAP PO PRN (13:30)
[2021-04-08] MEDS ORDERED: CALCIUM CARBONATE 500 MG (TUMS) TAB.CHEW PO PRN (13:30)
[2021-04-08] MEDS ORDERED: ONDANSETRON 4 MG/2 ML (SDV) Z0FRAN IVP PRN (13:30)
[2021-04-08 16:00] VITALS: BP 141/60
[2021-04-08] MEDS: ENOXAPARIN 40 MG/0.4 ML (LOVENOX) SYR SQ SCH (16:30)
[2021-04-08] MEDS: doxAzosin 4 MG (CARDURA) TAB PO SCH (16:30)
[2021-04-08] MEDS: SUCRALFATE 1 GM (CARAFATE) TAB PO SCH ×2 (16:44→20:05)
[2021-04-08] MEDS ORDERED: ANTACID SUSP 30 ML UDC (MYLANTA) PO PRN (16:45)
[2021-04-08 19:54] VITALS: BP 134/60
[2021-04-08] MEDS: LORATADINE (CLARITIN) 10 MG TAB PO SCH (20:05)
[2021-04-08] MEDS: DONEPEZIL 5 MG (ARICEPT) TAB PO SCH (20:05)
[2021-04-08] MEDS: BENZONATATE 100 MG (TESSALON) CAPSULE PO SCH (20:05)
[2021-04-09 00:13] VITALS: BP 123/65
[2021-04-09 04:45] VITALS: BP 143/65
[2021-04-09] MEDS: inSUlin ASPART (NovoLOG) 1 UNIT/0.01 ML (CHARGE PER UNIT) SC SCH ×2 (04:54→12:29)
[2021-04-09] MEDS: SUCRALFATE 1 GM (CARAFATE) TAB PO SCH ×2 (04:54→12:30)
[2021-04-09 06:48] LABS: BASOPHILS % (AUTO) 0 % (0-10); EOSINOPHILS % (AUTO) 0 % (0-10); HEMATOCRIT 38 % (40-54); HEMOGLOBIN 12.2 g/dL (13.3-17.7); LYMPHOCYTES # (AUTO) 1.4 10^3/uL (1.0-4.0); LYMPHOCYTES % (AUTO) 17 % (12-44); MEAN CORPUSCULAR HEMOGLOBIN 28 pg (25-34); MEAN CORPUSCULAR HGB CONC 32 g/dL (32-36); MEAN CORPUSCULAR VOLUME 86 fL (80-99); MEAN PLATELET VOLUME 9.7 fL (9.0-12.2); MONOCYTES # (AUTO) 0.9 10^3/uL (0.0-1.0); MONOCYTES % (AUTO) 11 % (0-12); NEUTROPHILS # (AUTO) 5.6 10^3/uL (1.8-7.8); NEUTROPHILS % (AUTO) 71 % (42-75); PLATELET COUNT 190 10^3/uL (130-400); WHITE BLOOD COUNT 7.9 10^3/uL (4.3-11.0)
[2021-04-09 06:53] LABS: ALBUMIN 3.7 GM/DL (3.2-4.5); POTASSIUM 3.7 MMOL/L (3.6-5.0)
[2021-04-09 06:54] LABS: CALCIUM 8.3 MG/DL (8.5-10.1)
[2021-04-09 06:55] LABS: TOTAL PROTEIN 7.2 GM/DL (6.4-8.2)
[2021-04-09 06:57] LABS: BILIRUBIN,TOTAL 0.7 MG/DL (0.1-1.0)
[2021-04-09 06:59] LABS: CREATININE SERUM 0.71 MG/DL (0.60-1.30)
[2021-04-09 08:00] VITALS: BP 123/54
[2021-04-09] MEDS: RT-ALBUTEROL SULF 2.5 MG/3 ML PRE-MIX VIAL INH SCH ×2 (08:00→14:45)
[2021-04-09] MEDS: PREGABALIN 100 MG (LYRICA) CAPSULE PO SCH ×2 (08:20→12:29)
[2021-04-09] MEDS: AUGMENTIN 875 MG TAB (AMOXICILLIN/CLAVULANATE) PO SCH (08:20)
[2021-04-09] MEDS: RIVASTIGMINE 4.6 MG PATCH (EXELON) TD SCH (08:20)
[2021-04-09] MEDS: VITAMIN D3 25 MCG (1,000 UNITS) TABLET PO SCH (08:20)
[2021-04-09] MEDS: amLODIPine 10 MG (NORVASC) TAB PO SCH (08:20)
[2021-04-09] MEDS: MICONAZOLE 2% POWDER (DESENEX AF) 90 GM TOP SCH (08:20)
[2021-04-09] MEDS: NYSTATIN CREAM (MYCOSTATIN) 30 GM TUBE TP SCH ×2 (08:21→13:51)
[2021-04-09] MEDS: FLUTICASONE NASAL SPRAY (FLONASE) 16 GM BTL NS SCH (08:21)
[2021-04-09] MEDS: PATCH REMOVAL TP SCH (08:21)
[2021-04-09 12:00] VITALS: BP 125/64
--- NOTE | 2021-04-09 12:32 | Discharge Summary ---
Diagnosis/Chief Complaint Date of Admission Apr 06, 2021 at 01:40 Date of Discharge Discharge Diagnosis Problems/Diagnosis: (1) Status post fall Assessment & Plan: Imaging of head, spine and pelvis okay. PT/OT. Status: Acute (2) Acute on chronic respiratory failure with hypoxia Assessment & Plan: Uncertain etiology, CXR without infiltrate and no leukocytosis, no wheezing, influenza neg. Suspect possibly secondary to pain in rib area from fall with subsequent poor respiratory effort. IS, supplemental oxygen as needed. COVID19 pending. Status: Acute (3) BPH (benign prostatic hyperplasia) Assessment & Plan: Resume home medications, had to straight cath this am, monitor closely. Status: Chronic (4) Sinusitis Assessment & Plan: Unclear if acute or chronic, noted on CT, but is complaining of congestion and headache and had fall which could possibly be secondary to dizziness, will start Augmentin. Qualifiers: Qualified Codes: J01.01 - Acute recurrent maxillary sinusitis Status: Acute (5) Alzheimer disease Assessment & Plan: Resume home medications. Status: Chronic (6) Hypertension Assessment & Plan: Resume home medications. Qualifiers: Qualified Codes: I10 - Essential (primary) hypertension Status: Chronic (7) Type 2 diabetes mellitus Assessment & Plan: Hold home metformin and glipizide, borderline renal function and blood sugar okay on admit. Diabetic diet, sliding scale insulin. Status: Chronic (8) COPD (chronic obstructive pulmonary disease) Assessment & Plan: No wheezing, no clear evidence of exacerbation. Continue albuterol. Status: Chronic (9) Generalized weakness Status: Acute (10) Falls frequently Assessment & Plan: Has been recommended to go to nursing facility in past, but he and have declined previously. Reassess after improvement in acute hypoxia, discussed possible need for higher level of care on d/c. Status: Acute (11) DVT prophylaxis Assessment & Plan: Enoxaparin Status: Acute Chief Complaint/HPI Chief Complaint/HPI Pt states he doesn't know why he is in the hospital. He says he has been having pain in his back and some pain in his left side. He doesn't recall what has been going on, says he came to the hospital by ambulance. He says he hit the back of his head in the shower a couple of days ago. He states he live at home and denies sick contacts. He normally uses 3 lpm supplemental oxygen. Per ER notes, he fell in the bathroom and his couldn't get him up. Discharge Summary-Simple/Stand Consultations Discharge Physical Examination Allergies: Coded Allergies: Serotonin 5HT-3 Antagonists (Unverified Allergy, Unknown, 11/25/17) Tricyclic Compounds (Unverified Allergy, Unknown, 11/25/17) codeine (Verified Allergy, Unknown, 04/07/06) hydrocodone (Unverified Allergy, Unknown, 10/16/15) aspirin (Unverified Adverse Reaction, Mild, STOMACH IRRITATION, 11/25/17) Vitals & I&Os Vital Sign - Last 12Hours Date Time Temp Pulse Resp B/P (MAP) Pulse Ox O2 Delivery O2 Flow Rate FiO2 04/09/21 08:01 97 Nasal Cannula 3.50 04/09/21 08:00 37.1 74 18 123/54 (77) Intake and Output 04/09/21 00:00 Intake Total 1900 ml Output Total 1200 ml Balance 700 ml Hospital Course See final discharge diagnosis. Radiology Reviewed CT head/neck 04/05: IMPRESSION: No acute intracranial abnormality with mild atrophy present. No acute osseous abnormality with moderate multilevel degenerative changes Right-sided paranasal sinus disease. CXR: low lung volumes with bibasilar atalectasis CT thoracic/lumbar spine 04/05: IMPRESSION: No acute osseous abnormality with moderate multilevel degenerative changes. Multilevel central canal and neuroforaminal stenosis, including multilevel relatively high-grade central canal stenosis within the lumbar spine. If there is concern for underlying radiculopathy, further evaluation with MRI could be considered. Pelvic xray 04/05: IMPRESSION: 1. No acute fracture of the pelvis on plain radiograph. If symptoms are persistent or if clinical concern remains, consider CT. Discharge Instructions to patient/family Please see electronic discharge instructions given to patient. Discharge Medications Reviewed and agree with Discharge Medication list on patient's Discharge Instruction sheet KRISTIAN LOCKHART MD Apr 09, 2021 12:32
[2021-04-09] MEDS ORDERED: SUCR1TAB PO (12:34)
[2021-04-09] MEDS ORDERED: AMOX1TAB12 PO (12:34)
--- NOTE | 2021-04-09 12:35 | Discharge Summary ---
Discharge [facility] Reconcile Patient Problems Problems Reviewed?: Yes Discharge Medications New, Converted or Re-Newed RX: Transmitted to Pharmacy New Medications: Amoxicillin/Potassium Clav (Amox Tr-K Clv 875-125 mg Tab) 1 Each Tablet 875 MG PO BID WITH MEALS, #8 TAB Sucralfate (Sucralfate) 1 Gm Tablet 1 GM PO ACHS for 7 Days, #28 TAB Continued Medications: Albuterol Sulfate (Albuterol Sulfate) 2.5 Mg/3 Ml Vial.neb 2.5 MG NEB TID, EA Amlodipine Besylate (Amlodipine Besylate) 10 Mg Tablet 10 MG PO DAILY, TAB Benzonatate (Benzonatate) 100 Mg Capsule 100 MG PO HS, CAP Cholecalciferol (Vitamin D3) (Vitamin D3) 50 Mcg Tablet 50 MCG PO DAILY, TAB Clonazepam (Clonazepam) 1 Mg Tablet 1 MG PO TID, TAB Donepezil HCl (Donepezil HCl) 5 Mg Tablet 5 MG PO HS, TAB Doxazosin Mesylate (Doxazosin Mesylate) 4 Mg Tablet 4 MG PO 1700, TAB Fluticasone Propionate (Fluticasone Propionate) 16 Gm [place].susp 1 SPRAY NSEACH DAILY, EA Glipizide (Glipizide) 5 Mg Tablet 5 MG PO BID, TAB Glycerin/Propylene Glycol (Lubricant Eye Drops) 15 Ml Drops 1 DROP OU QID PRN for DRY EYES, DROPS Guaifenesin/Dextromethorphan (Guaifenesin Dm Syrup) 5 Ml Syrup 20 ML PO Q4H PRN for COUGH, ML Hydrochlorothiazide (Hydrochlorothiazide) 25 Mg Tablet 25 MG PO DAILY, TAB Levocetirizine Dihydrochloride (Levocetirizine Dihydrochloride) 5 Mg Tablet 5 MG PO HS, TAB Loratadine (Loratadine) 10 Mg Tablet 10 MG PO DAILY, TAB Metformin HCl (Metformin HCl) 500 Mg Tablet 500 MG PO BID WITH MEALS, TAB Mirabegron (Myrbetriq) 25 Mg Tab.er.24h 25 MG PO 1700, TAB Multivitamin with Minerals (Men's One Daily) 1 Each Tablet 1 TAB PO DAILY, TAB Nystatin (Nystatin) 15 Gm Cream..g. 1 APPLIC TOP BID, EA [place] 3 Polyunsat Fatty Acids (Fish Oil 1,000 mg Capsule) 1,000 Mg Cap 1000 MG PO DAILY, CAP Ondansetron HCl (Ondansetron HCl) 4 Mg Tablet 4 MG PO HS PRN for NAUSEA/VOMITING-1ST LINE, TAB Pregabalin (Pregabalin) 100 Mg Capsule 100 MG PO TID, CAP Rivastigmine (Rivastigmine) 1 Each Patch.td24 4.6 MG TD DAILY, PATCH Triamcinolone Acet (Triamcinolone Acetonide 0.1% Cream) 15 Gm Cr 1 APPLIC TOP BID PRN for RASH, EA Vilazodone Hydrochloride (Viibryd) 10 Mg Tablet 10 MG PO HS, TAB Patient Instructions Goal/Follow Up Appt: Pb with PCP 1-2 weeks Activity & Diet Discharge Diet: Cardiac Diet KRISTIAN LOCKHART MD Apr 09, 2021 12:35
--- NOTE | 2021-04-09 12:54 | Discharge Summary ---
Discharge Summary Reconcile Patient Problems Problems Reviewed?: Yes Instructions for Patient Via [employer], Assessment/Instructions Acute on Chronic Respiratory Failure: Home oxygen requirement 2-3 L baseline Sinusitis: On Augmentin Severe Debility: Recommended NH placement but patient declined Blindness Physician to follow Patient: [facility] Discharge Diet for Home: Cardiac Diet Hospital Course Date of Admission: Apr 06, 2021 at 01:40 Admission Diagnosis : Family Physician/Provider: [facility] Date of Discharge: 04/09/21 Discharge Diagnosis: Acute on Chronic Respiratory Failure Sinusitis Severe Debility Hospital Course: See Above Labs and Pending Lab Test: Laboratory Tests 04/08/21 15:51: Glucometer 165H 04/08/21 20:27: Glucometer 110 04/09/21 04:50: Glucometer 144H 04/09/21 06:36: White Blood Count 7.9, Red Blood Count 4.35, Hemoglobin 12.2L, Hematocrit 38L, Mean Corpuscular Volume 86, Mean Corpuscular Hemoglobin 28, Mean Corpuscular Hemoglobin Concent 32, Red Cell Distribution Width 12.6, Platelet Count 190, Mean Platelet Volume 9.7, Immature Granulocyte % (Auto) 0, Neutrophils (%) (Auto) 71, Lymphocytes (%) (Auto) 17, Monocytes (%) (Auto) 11, Eosinophils (%) (Auto) 0, Basophils (%) (Auto) 0, Neutrophils # (Auto) 5.6, Lymphocytes # (Auto) 1.4, Monocytes # (Auto) 0.9, Eosinophils # (Auto) 0.0, Basophils # (Auto) 0.0, Immature Granulocyte # (Auto) 0.0, Sodium Level 130L, Potassium Level 3.7, Chloride Level 97L, Carbon Dioxide Level 24, Anion Gap 9, Blood Urea Nitrogen 10, Creatinine 0.71, Estimat Glomerular Filtration Rate 105, BUN/Creatinine Ratio 14, Glucose Level 141H, Calcium Level 8.3L, Corrected Calcium 8.5, Total Bilirubin 0.7, Aspartate Amino Transf (AST/SGOT) 61H, Alanine Aminotransferase (ALT/SGPT) 54, Alkaline Phosphatase 53, Total Protein 7.2, Albumin 3.7 04/09/21 11:53: Glucometer 165H Home Meds Active Sucralfate 1 Gm Tablet 1 Gm PO ACHS 7 Days Amox Tr-K Clv 875-125 mg Tab (Amoxicillin/Potassium Clav) 1 Each Tablet 875 Mg PO BID WITH MEALS Reported Vitamin D3 (Cholecalciferol (Vitamin D3)) 50 Mcg Tablet 50 Mcg PO DAILY Pregabalin 100 Mg Capsule 100 Mg PO TID Donepezil HCl 5 Mg Tablet 5 Mg PO HS Hydrochlorothiazide 25 Mg Tablet 25 Mg PO DAILY Benzonatate 100 Mg Capsule 100 Mg PO HS Guaifenesin Dm Syrup (Guaifenesin/Dextromethorphan) 5 Ml Syrup 20 Ml PO Q4H PRN Fish Oil 1,000 mg Capsule ([place] 3 Polyunsat Fatty Acids) 1,000 Mg Cap 1,000 Mg PO DAILY Ondansetron HCl 4 Mg Tablet 4 Mg PO HS PRN Albuterol Sulfate 2.5 Mg/3 Ml Vial.neb 2.5 Mg NEB TID Men's One Daily (Multivitamin with Minerals) 1 Each Tablet 1 Tab PO DAILY Loratadine 10 Mg Tablet 10 Mg PO DAILY Levocetirizine Dihydrochloride 5 Mg Tablet 5 Mg PO HS Nystatin 15 Gm Cream..g. 1 Applic TOP BID Triamcinolone Acetonide 0.1% Cream (Triamcinolone Acet) 15 Gm Cr 1 Applic TOP BID PRN Myrbetriq (Mirabegron) 25 Mg Tab.er.24h 25 Mg PO 1700 Metformin HCl 500 Mg Tablet 500 Mg PO BID WITH MEALS Rivastigmine 1 Each Patch.td24 4.6 Mg TD DAILY Glipizide 5 Mg Tablet 5 Mg PO BID Lubricant Eye Drops (Glycerin/Propylene Glycol) 15 Ml Drops 1 Drop OU QID PRN Fluticasone Propionate 16 Gm [place].susp 1 Rush NSEACH DAILY Amlodipine Besylate 10 Mg Tablet 10 Mg PO DAILY Clonazepam 1 Mg Tablet 1 Mg PO TID Doxazosin Mesylate 4 Mg Tablet 4 Mg PO 1700 Viibryd (Vilazodone Hydrochloride) 10 Mg Tablet 10 Mg PO HS Patient Allergies: Coded Allergies: Serotonin 5HT-3 Antagonists (Unverified Allergy, Unknown, 11/25/17) Tricyclic Compounds (Unverified Allergy, Unknown, 11/25/17) codeine (Verified Allergy, Unknown, 04/07/06) hydrocodone (Unverified Allergy, Unknown, 10/16/15) aspirin (Unverified Adverse Reaction, Mild, STOMACH IRRITATION, 11/25/17) Height (Feet): 5 Height (Inches): 8.00 Weight (Pounds): 250 Weight (Ounces): 6.0 New Medications: Amoxicillin/Potassium Clav (Amox Tr-K Clv 875-125 mg Tab) 1 Each Tablet 875 MG PO BID WITH MEALS, #8 TAB Sucralfate (Sucralfate) 1 Gm Tablet 1 GM PO ACHS for 7 Days, #28 TAB Continued Medications: Albuterol Sulfate (Albuterol Sulfate) 2.5 Mg/3 Ml Vial.neb 2.5 MG NEB TID, EA Amlodipine Besylate (Amlodipine Besylate) 10 Mg Tablet 10 MG PO DAILY, TAB Benzonatate (Benzonatate) 100 Mg Capsule 100 MG PO HS, CAP Cholecalciferol (Vitamin D3) (Vitamin D3) 50 Mcg Tablet 50 MCG PO DAILY, TAB Clonazepam (Clonazepam) 1 Mg Tablet 1 MG PO TID, TAB Donepezil HCl (Donepezil HCl) 5 Mg Tablet 5 MG PO HS, TAB Doxazosin Mesylate (Doxazosin Mesylate) 4 Mg Tablet 4 MG PO 1700, TAB Fluticasone Propionate (Fluticasone Propionate) 16 Gm [place].susp 1 SPRAY NSEACH DAILY, EA Glipizide (Glipizide) 5 Mg Tablet 5 MG PO BID, TAB Glycerin/Propylene Glycol (Lubricant Eye Drops) 15 Ml Drops 1 DROP OU QID PRN for DRY EYES, DROPS Guaifenesin/Dextromethorphan (Guaifenesin Dm Syrup) 5 Ml Syrup 20 ML PO Q4H PRN for COUGH, ML Hydrochlorothiazide (Hydrochlorothiazide) 25 Mg Tablet 25 MG PO DAILY, TAB Levocetirizine Dihydrochloride (Levocetirizine Dihydrochloride) 5 Mg Tablet 5 MG PO HS, TAB Loratadine (Loratadine) 10 Mg Tablet 10 MG PO DAILY, TAB Metformin HCl (Metformin HCl) 500 Mg Tablet 500 MG PO BID WITH MEALS, TAB Mirabegron (Myrbetriq) 25 Mg Tab.er.24h 25 MG PO 1700, TAB Multivitamin with Minerals (Men's One Daily) 1 Each Tablet 1 TAB PO DAILY, TAB Nystatin (Nystatin) 15 Gm Cream..g. 1 APPLIC TOP BID, EA [place] 3 Polyunsat Fatty Acids (Fish Oil 1,000 mg Capsule) 1,000 Mg Cap 1000 MG PO DAILY, CAP Ondansetron HCl (Ondansetron HCl) 4 Mg Tablet 4 MG PO HS PRN for NAUSEA/VOMITING-1ST LINE, TAB Pregabalin (Pregabalin) 100 Mg Capsule 100 MG PO TID, CAP Rivastigmine (Rivastigmine) 1 Each Patch.td24 4.6 MG TD DAILY, PATCH Triamcinolone Acet (Triamcinolone Acetonide 0.1% Cream) 15 Gm Cr 1 APPLIC TOP BID PRN for RASH, EA Vilazodone Hydrochloride (Viibryd) 10 Mg Tablet 10 MG PO HS, TAB Home Health Need/Face to Face Date of Face to Face: Apr 09, 2021 Clinical Findings: Generalized weakness and fatigue, Instability, Muscle weakness, Shortness of breath, Unsteady gait I have seen Pt [id number]: Yes Discharged To: Home Diagnosis/Conditions: See Above Patient is Homebound due to: Josse fall risk due to instabilty, Muscle weakness, Shortness of breath/distress Homebound Status Due to the above stated illness, injury or surgical procedure (medical condition or diagnosis) and associated clinical findings, the patient is homebound because of his/her inability to leave home except with aid of a supportive device and/or person AND leaving the home requires a considerable and taxing effort or is medically contraindicated. Pt req the following assistanc: Aid of another person Home Health Nursing Orders Home Health Services Order: Nursing Services, Paper Tube Cutter-Evaluate & Treat, Physical Therapy-Evaluate & Treat Home Health Infusion Therapy Line Start Date: Apr 05, 2021 Therapy Orders Therapy Orders: PT to assess for OT Therapy Specific Orders: Eval assistive deivces, Gait training, Increase strength/endurance Certify Stmt I certify that this patient is under my care and that I, a nurse practitioner or a physician; a banking assistant working with me, had a face to face encounter that - meets the physician face to face encounter requirements with this patient as dated. Discharge Physical Exam General: Alert, Oriented X3, No Acute Distress Lungs: Clear to Auscultation, Normal Air Movement Heart: Regular Rate, No Murmurs Abdomen: Normal Bowel Sounds, Soft, No Tenderness Skin: No Rashes Neuro: Normal Speech Psych/Mental Status: Mental Status NL, Mood NL KRISTIAN LOCKHART MD Apr 09, 2021 12:52
--- NOTE | 2021-04-09 13:53 | Physical Therapy Daily Note ---
PT Daily Note-Current Subjective Patient in bed pre tx, agrees to PT, has no pain he says other than his normal back pain from arthritis. Appearance Patient in recliner post tx with nurse call, phone, tray, all needs met. Mental Status Patient Orientation: Person, Place, Situation Attachments: Oxygen, Fischer Catheter Transfers SCALE: Activities may be completed with or without assistive devices. 8-Krounvkwxb-entejcq completes the activity by him/herself with no assistance from a helper. 5-Set-up or Clean-up Assistance-helper sets up or cleans up; patient completes activity. [place] assists only prior to or following the activity. 4-Supervision or Touching Assistance-helper provides verbal cues and/or touching/steadying and/or contact guard assistance as patient completes activity. Assistance may be provided throughout the activity or intermittently. 3-Partial/Moderate Assistance-helper does LESS THAN HALF the effort. [place] lifts, holds or supports trunk or limbs, but provides less than half the effort. 2-Substantial/Maximal Assistance-helper does MORE THAN HALF the effort. [place] lifts or holds trunk or limbs and provides more than half the effort. 8-Dmoeddtvx-hxwmbv does ALL the effort. Patient does none of the effort to complete the activity. Or, the assistance of 2 or more helpers is required for the patient to complete the activity. If activity was not attempted, code reason: 7-Patient Refused. 9-Not Applicable-not attempted and the patient did not perform the activity bef ore the current illness, exacerbation or injury. 10-Not Attempted due to Environmental Limitations-(lack of equipment, weather r estraints, etc.). 88-Not Attempted due to Medical Conditions or Safety Concerns. Roll Left & Right (QC): 4 Lying to Sitting/Side of Bed(Q: 3 Sit to Stand (QC): 4 Chair/Nmf-sb-Phkck Xfer(QC): 4 Gait Training Distance: 50' Walk 10 feet (QC): 4 Walk 50 ft with 2 Turns(QC): 4 Gait Assistive Device: FWW CGA, needs some cues for direction and safety. Somewhat impulsive with movement. Exercises Seated Therapy Exercises: Ankle pumps, Long arc quads Seated Reps: 20 Treatments transfers, ambulation, LE strengthening Assessment Current Status: Fair Progress CGA for transfers but min assist for supine to sit PT Workforce Management Coordinator Goals Jail Goals PT Workforce Management Coordinator Goals Time Frame: Apr 13, 2021 Roll Left & Right (QC): 4 Sit to Lying (QC): 4 Lying-Sitting on Side/Bed(QC): 4 Sit to Stand (QC): 4 Chair/Ylr-us-Ncmrw Xfer(QC): 4 PT Plan Problem List Problem List: Activity Tolerance, Functional Strength, Safety, Balance, Gait, Transfer, Bed Mobility, ROM Treatment/Plan Treatment Plan: Continue Plan of Care Treatment Plan: Bed Mobility, Education, Functional Activity [place], Functional Strength, Gait, Safety, Therapeutic Exercise, Transfers Treatment Duration: Apr 13, 2021 Frequency: 6 times per week Estimated Hrs Per Day: .25 hour per day Patient and/or Family Agrees t: Yes Safety Risks/Education Patient Education: Gait Training, Transfer Techniques, Correct Positioning, S afety Issues Teaching Recipient: Patient Teaching Methods: Demonstration, Discussion Response to Teaching: Reinforcement Needed Time/GCodes Time In: 1323 Time Out: 1333 Total Billed Treatment Time: 10 Total Billed Treatment 1 visit GT 10' YUE JACOBSEN PT Apr 09, 2021 13:53
--- NOTE | 2021-04-09 14:12 | Occupational Ther Daily Note ---
OT Current Status-Daily Note Subjective Pt agreeable to OT Tx. Mental Status/Objective Attachments: Fischer Catheter, Oxygen ADL-Treatment Therapy Code Descriptions/Definitions Functional [place] Measure: 0=Not Assessed/NA 4=Minimal Assistance 1=Total Assistance 5=Supervision or Setup 2=Maximal Assistance 6=Modified [place] 3=Moderate Assistance 7=Complete IndependenceSCALE: Activities may be completed with or without assistive devices. 3-Nfmfiqaskt-qsvcriq completes the activity by him/herself with no assistance from a helper. 5-Set-up or Clean-up Assistance-helper sets up or cleans up; patient completes activity. [place] assists only prior to or following the activity. 4-Supervision or Touching Assistance-helper provides verbal cues and/or touching/steadying and/or contact guard assistance as patient completes activity . Assistance may be provided throughout the activity or intermittently. 3-Partial/Moderate Assistance-helper does LESS THAN HALF the effort. [place] lifts, holds or supports trunk or limbs, but provides less than half the effort. 2-Substantial/Maximal Assistance-helper does MORE THAN HALF the effort. [place] lifts or holds trunk or limbs and provides more than half the effort. 6-Gyeegivdx-tfotfh does ALL the effort. Patient does none of the effort to complete the activity. Or, the assistance of 2 or more helpers is required for the patient to complete the activity. If activity was not attempted, code reason: 7-Patient Refused. 9-Not Applicable-not attempted and the patient did not perform the activity before the current illness, exacerbation or injury. 10-Not Attempted due to Environmental Limitations-(lack of equipment, weather restraints, etc.). 88-Not Attempted due to Medical Conditions or Safety Concerns. Other Treatment Pt in bed, transferred supine to sit EOB, min A. Pt used FWW to perform functional mobility in room, 50' with CGA. Pt requires some cues for direction and safety, as he is somewhat impulsive with movements. Pt transferred to recliner, sitting without warning, almost missing the recliner. In order to increase BUE strength and activity tolerance, pt completed x10 reps BUE shoulder flexion and elbow flexion/extension. Post tx, pt up in recliner, call light in reach and all needs met. Education OT Patient Education: Correct positioning, Energy conservation, Modified ADL techniques, Progress toward Goal/Update tx plan, Purpose of tx/functional activities, Rehab process Teaching Recipient: Patient Teaching Methods: Discussion Response to Teaching: Verbalize Understanding OT Training Development Specialist Goals Training Development Specialist Goals Time Frame: Apr 20, 2021 Eating (QC): 5 Oral Hygiene (QC): 4 Toileting Hygiene (QC): 3 Shower/Bathe Self (QC): 2 Upper Body Dressing (QC): 3 Lower Body Dressing (QC): 2 Additional Goals: 1-Demonstrate ADL Tasks, 2-Verbalize Understanding, 3- ImproveStrength/[place] 1=Demonstrate adherence to instructed precautions during ADL tasks. 2=Patient will verbalize/demonstrate understanding of assistive devices/modifications for ADL. 3=Patient will improve strength/tolerance for activity to enable patient to perform ADL's. OT Education/Plan Problem List/Assessment Assessment: Decreased Activ Tolerance, Decreased UE Strength, Impaired Funct Balance, Impaired I ADL's, Impaired Self-Care Skills, Restricted Funct UE ROM Discharge Recommendations Plan/Recommendations: Continue POC Treatment Plan/Plan of Care Patient would benefit from OT for education, treatment and training to promote independence in ADL's, mobility, safety and/or upper extremity function for ADL's. Plan of Care: ADL Retraining, Functional Mobility, UE Funct Exercise/Act Treatment Duration: Apr 20, 2021 Frequency: 3 times per week (3-5 times per week.) Rehab Potential: Fair Time/GCodes Start Time: 13:20 Stop Time: 13:30 Total Time Billed (hr/min): 10 Billed Treatment Time 1, SRINATH GLO PACHECO OT Apr 09, 2021 14:12
[2021-04-09] MEDS: ENOXAPARIN 40 MG/0.4 ML (LOVENOX) SYR SQ SCH (15:20)
== END 2021-04-09 15:45 | disposition home health service (06) | DRG 189 ==
LOC: EDUNIT# 22:53 → ER 22:56 → 4TH 04-06 01:40 → EDLOC 04-06 01:40 → 4TH 04-06 02:47
PROVIDERS: ADMIT Family Medicine; ATTEND Family Medicine
DX: J96.21 Acute and chronic respiratory failure with hypoxia (principal); N40.0 Benign prostatic hyperplasia without lower urinary tract symptoms; J01.90 Acute sinusitis, unspecified; G30.9 Alzheimer's disease, unspecified; F02.80 Dementia in other diseases classified elsewhere, unspecified severity, without behavioral disturbance, psychotic disturbance, mood disturbance, and anxiety; I10 Essential (primary) hypertension; E11.9 Type 2 diabetes mellitus without complications; J44.9 Chronic obstructive pulmonary disease, unspecified; Z20.822 Contact with and (suspected) exposure to COVID-19; M19.90 Unspecified osteoarthritis, unspecified site; K21.9 Gastro-esophageal reflux disease without esophagitis; F41.9 Anxiety disorder, unspecified; J30.9 Allergic rhinitis, unspecified; E78.00 Pure hypercholesterolemia, unspecified; G89.29 Other chronic pain; M54.9 Dorsalgia, unspecified; F32.A Depression, unspecified; E86.0 Dehydration; L89.322 Pressure ulcer of left buttock, stage 2; R53.81 Other malaise; H54.7 Unspecified visual loss; Z87.891 Personal history of nicotine dependence; Z99.81 Dependence on supplemental oxygen; Z79.84 Long term (current) use of oral hypoglycemic drugs; Z79.899 Other long term (current) drug therapy
CPT/HCPCS: 36415; 70450; 71045; 72125; 72128; 72131; 72170; 80053; 82550; 82553; 82805; 82947; 83735; 83874; 83880; 84484; 85025; 85027; 85610; 85652; 85730; 86141; 87635; 87636; 87804; 93005; 93041; 94640; 94664; 94760

== ENCOUNTER 2021-05-25 01:45 | Observation (INO) | payer MEDICARE, MEDICAID ==
[~2021-05-25] VITALS: Ht 183 cm; Wt 112.4 kg
[~2021-05-25 01:45] MED LIST changes: +AMOX1TAB12 PO; +CHOL200059 PO; +DONE5TAB30 PO; +HYDR25TA4 PO; +PREG100C55 PO
--- NOTE | 2021-05-25 02:03 | ED Chest Pain ---
General Chief Complaint: Chest Pain Stated Complaint: CHEST & ABD PAIN Nursing Triage Note: TO ED [facility]IA [facility] TO ROOM 7 WITH C/O CP FOR 2 DAYS, BUT TONIGHT "COULDN'T LAY DOWN". WEARS 3L O2 CONTINUOSLY. Source: patient Exam Limitations: no limitations History of Present Illness Date Seen by Provider: May 25, 2021 Time Seen by Provider: 01:44 Initial Comments Patient to the ER by EMS from home with chief complaint that for the past 2 days he has had intermittent substernal chest pains. Now his chest pains are for the past several hours persistent, 3 out of 10. Nonradiating. He has an allergy to aspirin that it makes him not feel well. He is not having any nausea or reflux. He did take some antacids which did not help his pain at all. No abdominal surgeries or scopes. He has a history of diabetes, hypertension, hyperlipidemia, GERD. He does not smoke. He does note that he has some increased swelling and orthopnea today. He has had a prostatectomy. He has a history of COPD. Allergies and Home Medications Allergies Coded Allergies: Serotonin 5HT-3 Antagonists (Unverified Allergy, Unknown, 11/25/17) Tricyclic Compounds (Unverified Allergy, Unknown, 11/25/17) codeine (Verified Allergy, Unknown, 04/07/06) hydrocodone (Unverified Allergy, Unknown, 10/16/15) aspirin (Unverified Adverse Reaction, Mild, STOMACH IRRITATION, 11/25/17) Patient Home Medication List Home Medication List Reviewed: Yes Albuterol Sulfate (Albuterol Sulfate) 2.5 Mg/3 Ml Vial.neb, 2.5 MG NEB Q6H, (Reported) Entered as Reported by: HILARY APPIAH on 04/23/19 1223 Last Action: Reviewed Amlodipine Besylate (Amlodipine Besylate) 10 Mg Tablet, 10 MG PO DAILY, (Reported) Entered as Reported by: HILARY APPIAH on 12/27/15 0851 Last Action: Reviewed Benzonatate (Benzonatate) 100 Mg Capsule, 100 MG PO HS PRN for COUGH, (Reported) Entered as Reported by: EDISON PRESTON on 04/06/21 1126 Last Action: Reviewed Cholecalciferol (Vitamin D3) (Vitamin D3) 50 Mcg Tablet, 50 MCG PO DAILY, (Reported) Entered as Reported by: EDISON PRESTON on 04/06/21 112 Last Action: Reviewed Clonazepam (Clonazepam) 1 Mg Tablet, 1 MG PO TID, (Reported) Entered as Reported by: HILARY APPIAH on 12/27/15 0851 Last Action: Reviewed Donepezil HCl (Donepezil HCl) 5 Mg Tablet, 5 MG PO HS, (Reported) Entered as Reported by: EDISON PRESTON on 04/06/21 112 Last Action: Reviewed Doxazosin Mesylate (Doxazosin Mesylate) 4 Mg Tablet, 4 MG PO 1700, (Reported) Entered as Reported by: CARIN PRINGLE on 05/27/15 1136 Last Action: Reviewed Fluticasone Propionate (Fluticasone Propionate) 16 Gm [place].susp, 1 SPRAY NSEACH DAILY, (Reported) Entered as Reported by: HILARY APPIAH on 12/06/16 1119 Last Action: Reviewed Glipizide (Glipizide) 5 Mg Tablet, 5 MG PO BID, (Reported) Entered as Reported by: JACINTA DE LA O on 01/26/17 1414 Last Action: Reviewed Glycerin/Propylene Glycol (Lubricant Eye Drops) 15 Ml Drops, 1 DROP OU QID PRN for DRY EYES, (Reported) Entered as Reported by: HILARY APPIAH on 12/06/16 112 Last Action: Reviewed Guaifenesin/Dextromethorphan (Guaifenesin Dm Syrup) 5 Ml Syrup, 20 ML PO Q4H PRN for COUGH, (Reported) Entered as Reported by: HILARY APPIAH on 04/23/19 1238 Last Action: Reviewed Hydrochlorothiazide (Hydrochlorothiazide) 25 Mg Tablet, 25 MG PO DAILY, (Reported) Entered as Reported by: EDISON PRESTON on 04/06/21 1126 Last Action: Reviewed Loratadine (Loratadine) 10 Mg Tablet, 10 MG PO DAILY, (Reported) Entered as Reported by: HILARY APPIAH on 04/23/19 1009 Last Action: Reviewed Menthol/Lanolin/Calamine/Znox (Calmoseptine Ointment) 71 Gm Oint, 1 APPLIC TP BID PRN for SORES, (Reported) Entered as Reported by: EDISON PRESTON on 05/25/21 113 Last Action: Reviewed Metformin HCl (Metformin HCl) 500 Mg Tablet, 500 MG PO Q12H, (Reported) Entered as Reported by: KRYSTIN NEWMAN on 01/26/171801 Last Action: Reviewed Mirabegron (Myrbetriq) 25 Mg Tab.er.24h, 25 MG PO 1700, (Reported) Entered as Reported by: KRYSTIN NEWMAN on 01/26/171801 Last Action: Reviewed Nystatin (Nystatin) 15 Gm Cream..g., 1 APPLIC TOP BID, (Reported) Entered as Reported by: HILARY APPIAH on 11/25/17 1108 Last Action: Reviewed Ondansetron HCl (Ondansetron HCl) 4 Mg Tablet, 4 MG PO HS PRN for NAUSEA/VOMITING-1ST LINE, (Reported) Entered as Reported by: HILARY APPIAH on 04/23/19 1223 Last Action: Reviewed Pregabalin (Pregabalin) 100 Mg Capsule, 100 MG PO TID, (Reported) Entered as Reported by: EDISON PRESTON on 04/06/21 112 Last Action: Reviewed Rivastigmine (Rivastigmine) 1 Each Patch.td24, 4.6 MG TD DAILY, (Reported) Entered as Reported by: KRYSTIN NEWMAN on 01/26/171801 Last Action: Reviewed Sodium Chloride ([place] Saline) 50 Ml [place], 1-2 SPRAYS NSEACH BID PRN for DRY NOSE, (Reported) Entered as Reported by: EDISON PRESTON on 05/25/211135 Last Action: Reviewed Triamcinolone Acet (Triamcinolone Acetonide 0.1% Cream) 15 Gm Cr, 1 APPLIC TOP BID PRN for RASH, (Reported) Entered as Reported by: KRYSTIN NEWMAN on 01/26/171801 Last Action: Reviewed Vilazodone Hydrochloride (Viibryd) 10 Mg Tablet, 10 MG PO HS, (Reported) Entered as Reported by: CARIN PRINGLE on 05/27/151135 Last Action: Reviewed [Radhika Restful Legs] , 2-3 EA PO Q6H PRN for LEG CRAMPS, (Reported) Entered as Reported by: EDISON PRESTON on 05/25/211135 Last Action: Reviewed Discontinued Medications Amoxicillin/Potassium Clav (Amox Tr-K Clv 875-125 mg Tab) 1 Each Tablet, 875 MG PO BID WITH MEALS Discontinued Reason: No Longer Taking Prescribed by: KRISTIAN LOCKHART on 04/09/21 1234 Last Action: Discontinued Levocetirizine Dihydrochloride (Levocetirizine Dihydrochloride) 5 Mg Tablet, 5 MG PO HS, (Reported) Discontinued Reason: No Longer Taking Entered as Reported by: HILARY APPIAH on 11/25/17 1108 Last Action: Discontinued Multivitamin with Minerals (Men's One Daily) 1 Each Tablet, 1 TAB PO DAILY, (Reported) Discontinued Reason: No Longer Taking Entered as Reported by: HILARY APPIAH on 04/23/19 1223 Last Action: Discontinued [place] 3 Polyunsat Fatty Acids (Fish Oil 1,000 mg Capsule) 1,000 Mg Cap, 1,000 MG PO DAILY, (Reported) Discontinued Reason: No Longer Taking Entered as Reported by: HILARY APPIAH on 04/23/19 1223 Last Action: Discontinued Sucralfate (Sucralfate) 1 Gm Tablet, 1 GM PO ACHS Discontinued Reason: No Longer Taking Prescribed by: KRISTIAN LOCKHART on 04/09/21 1234 Last Action: Discontinued Review of Systems Review of Systems Constitutional: No chills, No fever, No malaise EENTM: No Blurred Vision, No Double Vision Respiratory: Denies Cough, Denies Shortness of Air Cardiovascular: Denies Chest Pain, Denies Lightheadedness Gastrointestinal: Denies Abdominal Pain, Denies Nausea Genitourinary: Denies Discharge, Denies Drainage Musculoskeletal: No back pain, No joint pain All Other Systems Reviewed Negative Unless Noted: Yes Past Zxwbldh-Drtnns-Kiceae Hx Patient Social History Tobacco Use?: No Smoking Status: Former Smoker Substance use?: No Immunizations Up To Date Tetanus Booster (TDap): Unknown PED Vaccines UTD: No Influenza Vaccine Up-to-Date: Yes; Up-to-Date First/Initial COVID19 Vaccinat: NOV 2020 Second COVID19 Vaccination Jack: DEC 2020 Seasonal Allergies Seasonal Allergies: Yes Past Medical History Surgeries: Yes (RIGHT EYELID BASAL CELL CANCER; HERNIA REPAIR X 4, PER PT ) Abdominal, Adenoidectomy, Eye Surgery, Prostatectomy, Tonsillectomy Respiratory: Yes (O2 DEPENDENT AT 3L/NC CONTINUOUSLY;MULTIPLE EPISODES OF PNEUMONIA) Pneumonia, Chronic Bronchitis, COPD, Emphysema Currently Using CPAP: No Currently Using BIPAP: No Cardiac: Yes Chronic Edema/Swelling, High Cholesterol, Hypertension Neurological: Yes Dementia Reproductive Disorders: No Sexually Transmitted Disease: No HIV/AIDS: No Genitourinary: Yes (PROSTATE CANCER > 10 YEARS AGO) Prostate Problems, Kidney Stones Gastrointestinal: Yes (S/P HERNIA REPAIR X 4, PER PT) Abdominal Hernia, Gastroesophageal Reflux, Chronic Constipation, Polyps, Hiatal Hernia Musculoskeletal: Yes (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) Degenerate Disk Disease, Osteoporosis, Arthritis, Chronic Back Pain Endocrine: Yes Diabetes, Non-Insulin dep HEENT: Yes (R EYELID BASAL CELL CANCER;SINUSITIS; NOSEBLEEDS) Cataract Loss of Vision: Right Hearing Impairment: Denies Cancer: Yes (PROSTATE CANCER, BASAL CELL CANCER OF RIGHT EYE) Prostate, Skin Did You Recieve Any Treatments: Yes What Type of Treatment Did You: Surgical Intervention Psychosocial: Yes Anxiety, Depression Integumentary: Yes (SKIN CANCER; PRESSURE ULCERS OF BUTTOCKS/SACRUM) Blood Disorders: No Adverse Reaction/Blood Tranf: No Family Medical History FH: breast cancer G8 SISTER Myocardial infarction 19 FATHER Heart Disease, Lung Disease CHRONIC GENERALIZED WEAKNESS, F[place]QU[place] VERY POOR/VERY MINIMAL MOBILITY--HAS POWER CHAIR AND WALKER, WHICH HE HAS REFUSED TO USE AT HOME CHRONIC BILATERAL KNEE PAIN RIGHT EYELID BASAL 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 6.0oz. 113.990563iz; 35.27 BMI Method:Estimated General Appearance: No Apparent Distress, WD/WN HEENT: PERRL/EOMI, TMs Normal, Pharynx Normal, Moist Mucous Membranes Neck: Full Range of Motion, Normal Inspection Respiratory: Chest Non Tender, Lungs Clear, Normal Breath Sounds, No Accessory Muscle Use, No Respiratory Distress Cardiovascular: Regular Rate, Rhythm, No Edema, Normal Peripheral Pulses Gastrointestinal: Normal Bowel Sounds, No Organomegaly, Tenderness (Mild epigastric tenderness) Extremity: Normal Capillary Refill, Normal Inspection, No Pedal Edema Neurologic/Psychiatric: Alert, Oriented x3 Skin: Normal Color, Warm/Dry Progress/Results/Core Measures Results/Orders Lab Results Laboratory Tests Test 05/25/21 01:52 05/25/21 02:00 05/25/21 02:30 05/25/21 04:05 Range/Units White Blood Count 7.6 4.3-11.0 10^3/uL Red Blood Count 4.04 L 4.30-5.52 10^6/uL Hemoglobin 11.2 L 13.3-17.7 g/dL Hematocrit 36 L 40-54 % Mean Corpuscular Volume 89 80-99 fL Mean Corpuscular Hemoglobin 28 25-34 pg Mean Corpuscular Hemoglobin Concent 31 L 32-36 g/dL Red Cell Distribution Width 14.1 10.0-14.5 % Platelet Count 199 130-400 10^3/uL Mean Platelet Volume 10.0 9.0-12.2 fL Immature Granulocyte % (Auto) 1 % Neutrophils (%) (Auto) 52 42-75 % Lymphocytes (%) (Auto) 30 12-44 % Monocytes (%) (Auto) 15 H 0-12 % Eosinophils (%) (Auto) 3 0-10 % Basophils (%) (Auto) 0 0-10 % Neutrophils # (Auto) 3.9 1.8-7.8 10^3/uL Lymphocytes # (Auto) 2.3 1.0-4.0 10^3/uL Monocytes # (Auto) 1.1 H 0.0-1.0 10^3/uL Eosinophils # (Auto) 0.2 0.0-0.3 10^3/uL Basophils # (Auto) 0.0 0.0-0.1 10^3/uL Immature Granulocyte # (Auto) 0.0 0.0-0.1 10^3/uL Prothrombin Time 14.1 12.2-14.7 SEC INR Comment 1.0 0.8-1.4 Activated Partial Thromboplast Time 33 24-35 SEC Sodium Level 137 135-145 MMOL/L Potassium Level 4.2 3.6-5.0 MMOL/L Chloride Level 103 98-107 MMOL/L Carbon Dioxide Level 23 21-32 MMOL/L Anion Gap 11 5-14 MMOL/L Blood Urea Nitrogen 17 7-18 MG/DL Creatinine 0.88 0.60-1.30 MG/DL Estimat Glomerular Filtration Rate 84 BUN/Creatinine Ratio 19 Glucose Level 86 70-105 MG/DL Calcium Level 9.3 8.5-10.1 MG/DL Corrected Calcium 9.3 8.5-10.1 MG/DL Magnesium Level 2.0 1.6-2.4 MG/DL Total Bilirubin 0.3 0.1-1.0 MG/DL Aspartate Amino Transf (AST/SGOT) 47 H 5-34 U/L Alanine Aminotransferase (ALT/SGPT) 38 0-55 U/L Alkaline Phosphatase 79 40-136 U/L Myoglobin 63.3 10.0-92.0 NG/ML Troponin I < 0.028 <0.028 NG/ML B-Type Natriuretic Peptide 11.1 <100.0 PG/ML Total Protein 7.5 6.4-8.2 GM/DL Albumin 4.0 3.2-4.5 GM/DL Lipase 346 H 8-78 U/L Influenza Type A (RT-PCR) Not Detected Not Detecte Influenza Type B (RT-PCR) Not Detected Not Detecte SARS-CoV-2 RNA (RT-PCR) Not Detected Not Detecte Urine Color YELLOW Urine Clarity CLEAR Urine pH 6.0 5-9 Urine Specific [place] 1.020 1.016-1.022 Urine Protein NEGATIVE NEGATIVE Urine Glucose (UA) NEGATIVE NEGATIVE Urine Ketones NEGATIVE NEGATIVE Urine Nitrite NEGATIVE NEGATIVE Urine Bilirubin NEGATIVE NEGATIVE Urine Urobilinogen 0.2 < = 1.0 MG/DL Urine Leukocyte Esterase NEGATIVE NEGATIVE Urine RBC (Auto) NEGATIVE NEGATIVE Urine RBC NONE /HPF Urine WBC NONE /HPF Urine Crystals NONE /LPF Urine Bacteria NEGATIVE /HPF Urine Casts NONE /LPF Urine Mucus NEGATIVE /LPF Urine Other STARCH CRYSTALS /HPF Urine Culture Indicated NO Glucometer 88 70-110 MG/DL My Orders Orders - ALBA BURRELL Covid 19 Inhouse Test (05/25/21 01:54) Influenza A And B By Pcr (05/25/21 01:54) Cbc With Automated Diff (05/25/21 01:54) Magnesium (05/25/21 01:54) Chest 1 View, Ap/Pa Only (05/25/21 01:54) Ekg Tracing (05/25/21 01:54) Comprehensive Metabolic Panel (05/25/21 01:54) Myoglobin Serum (05/25/21 01:54) Protime With Inr (05/25/21 01:54) Partial Thromboplastin Time (05/25/21 01:54) O2 (05/25/21 01:54) Monitor-Rhythm Ecg Trace Only (05/25/21 01:54) Ed Iv/Invasive Line Start (05/25/21 01:54) Lipase (05/25/21 01:54) Bnp Jessa (05/25/21 01:54) Troponin I [place] (05/25/21 01:54) Lidocaine 2% Viscous 15 Ml (Xylocaine Vi (05/25/21 02:15) Famotidine Tablet (Pepcid Tablet) (05/25/21 02:05) Antacid Suspension (Mylanta Suspension (05/25/21 02:15) Ct Abdomen/Pelvis W (05/25/21 03:05) Ua Culture If Indicated (05/25/21 03:10) Iohexol Injection (Omnipaque 350 Mg/Ml 1 (05/25/21 04:00) Received Contrast (Hold Metformin- Contr (05/25/21 04:00) Sodium Chloride Flush (Catheter Flush Sy (05/25/21 04:00) Ns (Ivpb) (Sodium Chloride 0.9% Ivpb Bag (05/25/21 04:00) Accucheck Stat ONCE (05/25/21 04:06) Ed Admission (Communication) (05/25/21 05:49) Medications Given in ED Vital Signs/I&O 05/25/21 05/25/21 01:48 01:48 Temp 36.0 Pulse 80 Resp 20 B/P (MAP) 132/77 (95) Pulse Ox 95 O2 Delivery Nasal Cannula Nasal Cannula O2 Flow Rate 3.00 3.00 Blood Pressure Mean: 95 Progress Progress Note #1: Time: 02:04 Progress Note EKG labs and GI cocktail. Patient has a stated allergy to aspirin. Covid and influenza swabs. Progress Note #2: Time: 03:06 Progress Note Patient states his pain is significantly improved. He is quite comfortable. He has pancreatitis. He has had pancreatitis in 2009. Plan to let him finish the 500 cc of saline from EMS and get a CT of his abdomen and pelvis. If his pain is still not under good control we will offer him a stay in the hospital. Progress Note #3: Time: 05:43 Progress Note Discussed findings with the patient and he would like to stay as he has concerns about pain control. We did offer him outpatient approach. Initial ECG Impression Date: May 25, 2021 Initial ECG Impression Time: 01:52 Initial ECG Rate: 84 Initial ECG Rhythm: Normal Sinus Initial ECG Intervals: QT (465) Initial ECG Impression: Normal, Nonspecific Changes Comment Normal sinus rhythm without clinically relevant ST changes Diagnostic Imaging Diagonstic Imaging: Xray Plain Films/CT/US/NM/MRI: chest Comments Stable chest x-ray with no acute cardiopulmonary process on 1 view. [facility] [place] NAME: ISABELA ESPINOZA [facility] REC#: [id number] PT STATUS: ADM Shweta : 1935 PHYSICIAN: ALBA BURRELL MD ADMIT DATE: 05/25/21 Signed Date of Exam:05/25/21 CHEST 1 VIEW, AP/PA ONLY INDICATION: Chest pain Portable chest 2:06 AM Heart size and pulmonary vascularity are normal. Lungs are clear. There are no effusions or pneumothoraces. IMPRESSION: Negative chest Dictated by: Dictated on workstation # [id number] Dict: 05/25/2131 Trans: 05/25/21 0715 CHATO [id number] Interpreted by: NELY CHEW MD Electronically signed by: NELY CHEW MD 05/25/21 0715 Reviewed: Reviewed by Me Diagonstic Imaging: CT Plain Films/CT/US/NM/MRI: abdomen, pelvis Comments No appendicitis. Moderate hiatal hernia. Enlarged cirrhotic liver with steatosis. Colonic diverticulosis. Other findings as above. [facility] [place] NAME: ISABELA ESPINOZA [facility] REC#: [id number] PT STATUS: ADM Shweta : 1935 PHYSICIAN: ALBA BURRELL MD ADMIT DATE: 05/25/21 Signed Date of Exam:05/25/21 CT ABDOMEN/PELVIS W PROCEDURE: CT abdomen and pelvis with contrast. TECHNIQUE: Multiple contiguous axial images were obtained through the abdomen and pelvis after administration of intravenous contrast. Auto Exposure Controls were utilized during the CT exam to meet ALARA standards for radiation dose reduction. All CT scans use one or more of the following dose optimizing techniques: automated exposure control, MA and/or KvP adjustment based on patient size and exam type or iterative reconstruction. INDICATION: Epigastric pain There is some atelectasis in the dependent portions of both lung bases. There is a moderate-sized hiatal hernia. There is calcific coronary atherosclerosis. There are small calcified granulomas in the liver. Gallbladder is unremarkable. There is no evidence for pancreatitis. There are granulomatous changes in the spleen. Adrenals appear normal. There is a 5 mm calculus in the lower pole calyx of the left kidney. There is no evidence of obstruction. There is calcific atherosclerosis of the aorta without aneurysm. The appendix is normal. Small bowel is not dilated. There is diverticulosis of the colon. Urinary bladder is normal. Prostate is not enlarged. There is no intraperitoneal free air or free fluid. IMPRESSION: Hiatal hernia. Hepatomegaly. Left nephrolithiasis. Uncomplicated diverticulosis of the colon. No acute abnormality seen. I agree with preliminary interpretation. Dictated by: Dictated on workstation # [id number] Dict: 05/25/2121 Trans: 05/25/21 0715 CHATO [id number] Interpreted by: NELY CHEW MD Electronically signed by: NELY CHEW MD 05/25/21 0715 Reviewed: Reviewed Night [facility] Study, Reviewed by Me Diagonstic Imaging: Ultrasound Plain Films/CT/US/NM/MRI: abdomen, pelvis Comments [facility] [place] NAME: ISABELA ESPINOZA [facility] REC#: [id number] PT STATUS: ADM Shweta : 1935 PHYSICIAN: ASHLEY ALANIZ DO ADMIT DATE: 05/25/21 Signed Date of Exam:05/25/21 US GALLBLADDER [id number] PROCEDURE: US Gallbladder. TECHNIQUE: Multiple Real-time grayscale images were obtained over the right upper quadrant in various projections. INDICATION: Pancreatitis. FINDINGS: The liver is enlarged at 22 cm. The liver does show some increased echogenicity, suggestive of fatty infiltration. There may be a liver calcification in the left lobe. CT did show multiple granulomas. The portal vein is patent and shows normal direction of flow. The gallbladder is without stones or sludge. No significant wall thickening or biliary ductal dilatation is seen. There is some slight prominence to the pancreatic duct but no pancreatic mass is identified. The aorta is nonaneurysmal. The IVC is patent. The right kidney is without calculus or hydronephrosis. IMPRESSION: 1. Hepatomegaly and hepatic steatosis. 2. No evidence of cholelithiasis or acute cholecystitis. Dictated by: Dictated on workstation # [id number] Dict: 05/25/21 1314 Trans: 05/25/21 1549 [id number] Interpreted by: DARIO KENNEY MD Electronically signed by: DARIO KENNEY MD 05/25/21 1549 Reviewed: Reviewed by Me Departure Communication (Admissions) Time/Spoke to Admitting Phy: 05:[address] Wan she agrees to observe the patient pancreatitis. Consult general surgery. Time/Spoke to Consulting Phy: 05:[address] Desai he agrees to consult on the case for general surgery Impression Primary Impression: Pancreatitis Qualified Codes: K85.90 - Acute pancreatitis without necrosis or infection, unspecified Disposition: ADMITTED INPATIENT Condition: Stable Admissions Decision to Admit Reason: Admit from ER (General) Decision to Admit/Date: May 25, 2021 Time/Decision to Admit Time: 05:40 Departure-Patient Inst. Referrals: QUETA BOOKER (PCP) Primary Care Physician [facility]/K (Family) Primary Care Physician ALBA BURRELL May 25, 2021 02:03
[2021-05-25] MEDS ORDERED: FAMOTIDINE 20 MG (PEPCID) TABLET PO STA (02:05)
[2021-05-25 02:08] LABS: BASOPHILS % (AUTO) 0 % (0-10); EOSINOPHILS # (AUTO) 0.2 10^3/uL (0.0-0.3); EOSINOPHILS % (AUTO) 3 % (0-10); HEMATOCRIT 36 % (40-54); HEMOGLOBIN 11.2 g/dL (13.3-17.7); LYMPHOCYTES # (AUTO) 2.3 10^3/uL (1.0-4.0); LYMPHOCYTES % (AUTO) 30 % (12-44); MEAN CORPUSCULAR HEMOGLOBIN 28 pg (25-34); MEAN CORPUSCULAR HGB CONC 31 g/dL (32-36); MEAN CORPUSCULAR VOLUME 89 fL (80-99); MONOCYTES # (AUTO) 1.1 10^3/uL (0.0-1.0); MONOCYTES % (AUTO) 15 % (0-12); NEUTROPHILS # (AUTO) 3.9 10^3/uL (1.8-7.8); NEUTROPHILS % (AUTO) 52 % (42-75); PLATELET COUNT 199 10^3/uL (130-400); WHITE BLOOD COUNT 7.6 10^3/uL (4.3-11.0)
[2021-05-25 02:14] LABS: POTASSIUM 4.2 MMOL/L (3.6-5.0)
[2021-05-25 02:15] LABS: CALCIUM 9.3 MG/DL (8.5-10.1)
[2021-05-25] MEDS ORDERED: LIDOCAINE 2% VISCOUS 15 ML UDC PO ONE (02:15)
[2021-05-25] MEDS ORDERED: ANTACID SUSP 30 ML UDC (MYLANTA) PO ONE (02:15)
[2021-05-25 02:16] LABS: TOTAL PROTEIN 7.5 GM/DL (6.4-8.2)
[2021-05-25 02:18] LABS: BILIRUBIN,TOTAL 0.3 MG/DL (0.1-1.0)
[2021-05-25 02:20] LABS: CREATININE SERUM 0.88 MG/DL (0.60-1.30)
[2021-05-25 02:22] LABS: PROTHROMBIN TIME PATIENT 14.1 SEC (12.2-14.7)
[2021-05-25 03:32] LABS: BILIRUBIN,URINE NEGATIVE (NEGATIVE); CLARITY,URINE CLEAR; COLOR,URINE YELLOW; GLUCOSE, URINE (UA) NEGATIVE (NEGATIVE); KETONES,URINE NEGATIVE (NEGATIVE); LEUKOCYTE ESTERASE ,URINE NEGATIVE (NEGATIVE); NITRITE,URINE NEGATIVE (NEGATIVE); PROTEIN,URINE NEGATIVE (NEGATIVE)
[2021-05-25 03:48] LABS: BACTERIA,URINE NEGATIVE /HPF; URINE OTHER STARCH CRYSTALS /HPF
[2021-05-25] MEDS ORDERED: HOLD METFORMIN - RECEIVED CONTRAST 20 ML VIAL IV SCH (04:00)
[2021-05-25] MEDS ORDERED: CATHETER FLUSH 10 ML SYR IV PRN (04:00)
[2021-05-25] MEDS ORDERED: NS 100 ML (IVPB) BAG IV ONE (04:00)
[2021-05-25] MEDS ORDERED: IOHEXOL 350 MG/ML 100 ML (OMNIPAQUE 350) VIAL IV ONE (04:00)
--- NOTE | 2021-05-25 06:30 | Diagnostic Imaging Report ---
PROCEDURE: CT abdomen and pelvis with contrast. TECHNIQUE: Multiple contiguous axial images were obtained through the abdomen and pelvis after administration of intravenous contrast. Auto Exposure Controls were utilized during the CT exam to meet ALARA standards for radiation dose reduction. All CT scans use one or more of the following dose optimizing techniques: automated exposure control, MA and/or KvP adjustment based on patient size and exam type or iterative reconstruction. INDICATION: Epigastric pain There is some atelectasis in the dependent portions of both lung bases. There is a moderate-sized hiatal hernia. There is calcific coronary atherosclerosis. There are small calcified granulomas in the liver. Gallbladder is unremarkable. There is no evidence for pancreatitis. There are granulomatous changes in the spleen. Adrenals appear normal. There is a 5 mm calculus in the lower pole calyx of the left kidney. There is no evidence of obstruction. There is calcific atherosclerosis of the aorta without aneurysm. The appendix is normal. Small bowel is not dilated. There is diverticulosis of the colon. Urinary bladder is normal. Prostate is not enlarged. There is no intraperitoneal free air or free fluid. IMPRESSION: Hiatal hernia. Hepatomegaly. Left nephrolithiasis. Uncomplicated diverticulosis of the colon. No acute abnormality seen. I agree with preliminary interpretation. Dictated by: Dictated on workstation # [id number]
--- NOTE | 2021-05-25 06:35 | History & Physical-Hospitalist ---
History of Present Illness HPI/Chief Complaint Chief complaint: Pancreatitis History of present illness: This is an 85-year-old white male who has a past medical history of multiple comorbidities who presented with abdominal pain. Patient was found to have increased lipase. Dr. Morris is consulted. Overall he reports some nausea and some pain but is able to get relief from pain medication. Ultrasound will be evaluated to be sure there is no biliary component to the pancreatitis. Source: patient Exam Limitations: no limitations Date Seen 05/25/21 Time Seen by a Provider: 12:30 Attending Physician PCP Aashish Renteria Referring Physician Date of Admission Home Medications & Allergies Home Medications Reviewed patient Home Medication Reconciliation performed by pharmacy medication reconciliations roof service technician and/or nursing. Patients Allergies have been reviewed. Allergies Allergies Coded Allergies Serotonin 5HT-3 Antagonists (Unverified Allergy, Unknown, 11/25/17) Tricyclic Compounds (Unverified Allergy, Unknown, 11/25/17) codeine (Verified Allergy, Unknown, 04/07/06) hydrocodone (Unverified Allergy, Unknown, 10/16/15) aspirin (Unverified Adverse Reaction, Mild, STOMACH IRRITATION, 11/25/17) Past Avmzxpz-Bbjcwm-Miyvyc Hx Patient Social History Marrital Status: Employed/Student: retired Tobacco Use?: No Smoking Status: Former Smoker Substance use?: No Additional Alcohol Comments: FORMER ETOH USE Immunizations Up To Date Date of Influenza Vaccine: Nov 29, 2020 First/Initial COVID19 Vaccinat: NOV 2020 Second COVID19 Vaccination Jack: DEC 2020 Tetanus Booster (TDap): Less Than 5 Years Hepatitis A: Yes Hepatitis B: Yes PED Vaccines UTD: No Date of Pneumonia Vaccine: Mar 31, 2016 Seasonal Allergies Seasonal Allergies: Yes Current Status Primary Language: Syriac Preferred Spoken Language: Syriac Past Medical History Surgeries: Abdominal, Adenoidectomy, Eye Surgery, Prostatectomy, Tonsillectomy Pneumonia, Chronic Bronchitis, COPD, Emphysema Currently Using CPAP: No Currently Using BIPAP: No Chronic Edema/Swelling, High Cholesterol, Hypertension Dementia Sexually Transmitted Disease: No HIV/AIDS: No Prostate Problems, Kidney Stones Abdominal Hernia, Gastroesophageal Reflux, Chronic Constipation, Polyps, Hiatal Hernia Degenerate Disk Disease, Osteoporosis, Arthritis, Chronic Back Pain Diabetes, Non-Insulin dep Cataract Loss of Vision: Right Hearing Impairment: Denies Prostate, Skin Did You Recieve Any Treatments: Yes What Type of Treatment Did You: Surgical Intervention Anxiety, Depression Blood Disorders: No Adverse Reaction/Blood Tranf: No PMHx: COPD, supplemental oxygen dependent HTN Prostate cancer DMII Osteoarthritis of multiple joints Dementia GERD Anxiety Hyperlipidemia Allergic rhinitis Alzheimer disease SurgHx: Prostatectomy Hernia repair x 2 Cataract Wrist fracture Right eyelid basal cell carcinoma removal Family Medical History FH: breast cancer G8 SISTER Myocardial infarction 19 FATHER Heart Disease, Lung Disease CHRONIC GENERALIZED WEAKNESS, FREQUENT FALLS VERY POOR/VERY MINIMAL MOBILITY--HAS POWER CHAIR AND WALKER, WHICH HE HAS REFUSED TO USE AT HOME CHRONIC BILATERAL KNEE PAIN RIGHT EYELID 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 6.0oz. 113.357296kw; 35.27 BMI Method:Estimated General Appearance: No Apparent Distress, Chronically ill Eyes: Right Eye Normal Inspection, Right Eye PERRL HEENT: PERRL/EOMI, Normal ENT Inspection, Pharynx Normal, Moist Mucous Membranes Neck: Full Range of Motion, Normal Inspection, Non Tender Respiratory: Chest Non Tender, Lungs Clear, Normal Breath Sounds, No Accessory Muscle Use, No Respiratory Distress Cardiovascular: Regular Rate, Rhythm, No Edema, No Gallop, No JVD, No Murmur, Normal Peripheral Pulses Gastrointestinal: Normal Bowel Sounds, No Organomegaly, No Pulsatile Mass, Non Tender, Soft, Tenderness Back: Normal Inspection, No CVA Tenderness, No Vertebral Tenderness Extremity: Normal Capillary Refill, Normal Inspection, Normal Range of Motion, Non Tender, No Calf Tenderness, No Pedal Edema Neurologic/Psychiatric: Alert, Oriented x3, No Motor/Sensory Deficits, Normal Mood/Affect Skin: Normal Color, Warm/Dry Lymphatic: No Adenopathy Results Results/Procedures Labs Laboratory Tests 05/25/21 01:52 Patient resulted labs reviewed. Assessment/Plan Admission Diagnosis Assessment: Acute pancreatitis Abdominal pain Dementia Emotional problems Hypertension Diabetes Hyperlipidemia Former smoker Advanced age Plan: Bowel rest Ultrasound Dr. Morris consult Admission Status: Observation Diagnosis/Problems Diagnosis/Problems (1) Pancreatitis Status: Acute Qualifiers: Chronicity: acute Pancreatitis type: unspecified pancreatitis type Acute pancreatitis complication: unspecified Qualified Codes: K85.90 - Acute pa ncreatitis without necrosis or infection, unspecified Clinical Quality Measures AMI/AHF: ASA po Prior to arrival: MARSHAL Mendes DO May 25, 2021 06:34
--- NOTE | 2021-05-25 06:43 | Diagnostic Imaging Report ---
INDICATION: Chest pain Portable chest 2:06 AM Heart size and pulmonary vascularity are normal. Lungs are clear. There are no effusions or pneumothoraces. IMPRESSION: Negative chest Dictated by: Dictated on workstation # [id number]
[2021-05-25] MEDS ORDERED: morphine INJ 4 MG/ML 1 ML (VIAL/SYRINGE) IV PRN (08:00)
[2021-05-25] MEDS ORDERED: diphenhydrAMINE 25 MG TAB (BENADRYL) PO PRN (08:00)
[2021-05-25] MEDS ORDERED: PROMETHAZINE INJ 25 MG/ML (PHENERGAN) AMP IM PRN (08:00)
[2021-05-25] MEDS ORDERED: MILK OF MAGNESIA 400 MG/5 ML 30 ML UDC PO PRN (08:00)
[2021-05-25] MEDS ORDERED: BISACODYL 10 MG SUPP (DULCOLAX) PR PRN (08:00)
[2021-05-25] MEDS ORDERED: NALOXONE 0.4 MG/ML 1 ML (NARCAN) VIAL IV PRN (08:00)
[2021-05-25] MEDS ORDERED: polyethylene glycoL POWDER 17 GM (MIRALAX) PACK PO PRN (08:00)
[2021-05-25] MEDS ORDERED: CALCIUM CARBONATE 500 MG (TUMS) TAB.CHEW PO PRN (08:00)
[2021-05-25] MEDS ORDERED: diphenhydrAMINE 50 MG/ML INJ (BENADRYL) IVP PRN (08:00)
[2021-05-25] MEDS ORDERED: ACETAMINOPHEN 325 MG TABLET PO PRN (08:00)
[2021-05-25] MEDS ORDERED: LACTULOSE SYRUP 10GM/15ML (ENULOSE) 30ML UDC PO PRN (08:00)
[2021-05-25] MEDS ORDERED: MELATONIN 3 MG TABLET PO PRN (08:00)
[2021-05-25] MEDS ORDERED: PATIENT MAY USE OWN MEDS, ALL PO SCH (08:00)
[2021-05-25] MEDS ORDERED: PROCHLORPERAZINE 25 MG (COMPAZINE) SUPP PR PRN (08:00)
[2021-05-25 08:42] VITALS: BP 160/75
[2021-05-25] MEDS: NS IV 1000 ML 1,000 ML IV SCH ×2 (08:58→20:42)
[2021-05-25] MEDS: DOCUSATE SODIUM 100 MG (COLACE) CAP PO SCH ×2 (08:59→19:49)
[2021-05-25] MEDS: PANTOPRAZOLE 40 MG (PROTONIX) VIAL IV SCH (08:59)
[2021-05-25] MEDS: SENNOSIDES 8.6 MG (SENOKOT) TAB PO SCH ×2 (08:59→19:49)
[2021-05-25] MEDS: ANTACID SUSP 30 ML UDC (MYLANTA) PO PRN ×2 (09:00→20:31)
[2021-05-25] MEDS: ENOXAPARIN 40 MG/0.4 ML (LOVENOX) SYR SC SCH (09:03)
--- NOTE | 2021-05-25 09:19 | Consultation - Surgery ---
AUGUSTINE DOWD 05/25/21 0918: History of Present Illness History of Present Illness Patient Consulted On(jose luis/time) 05/25/21 09:12 Date Seen by Provider: May 25, 2021 Time Seen by Provider: 09:00 History of Present Illness Consult: Epigastric pain 85yo male presented to the ER with epigastric pain that started 2 days ago while sitting on his couch. He describes the pain as burning with a 10/10 rating when it first started, now he says his pain is 6/10. He reports that his pain comes and goes, and radiates diffusely to his stomach but does not radiate to the back. His pain is better with ice, soft food, and being in an inclined position. Pain is worse with eating regular food. He reports that this similiar pain has not happened before, and his cholesterol and Diabetes are well managed by his doctor and he is compliant with those meds. He reported that he stopped drinking Etoh 50 years, he started drinking at the age of 20 years and struggled with etoh use for the next 20 years drinking about one pint a day, he denied recreational drug use. Allergies and Home Medications Allergies Coded Allergies: Serotonin 5HT-3 Antagonists (Unverified Allergy, Unknown, 11/25/17) Tricyclic Compounds (Unverified Allergy, Unknown, 11/25/17) codeine (Verified Allergy, Unknown, 04/07/06) hydrocodone (Unverified Allergy, Unknown, 10/16/15) aspirin (Unverified Adverse Reaction, Mild, STOMACH IRRITATION, 11/25/17) Patient Home Medication List Albuterol Sulfate (Albuterol Sulfate) 2.5 Mg/3 Ml Vial.neb, 2.5 MG NEB TID, (Reported) Entered as Reported by: HILARY APPIAH on 04/23/19 1223 Amlodipine Besylate (Amlodipine Besylate) 10 Mg Tablet, 10 MG PO DAILY, (Reported) Entered as Reported by: HILARY APPIAH on 12/27/15 0851 Amoxicillin/Potassium Clav (Amox Tr-K Clv 875-125 mg Tab) 1 Each Tablet, 875 MG PO BID WITH MEALS Prescribed by: KRISTIAN LOCKHART on 04/09/21 1234 Benzonatate (Benzonatate) 100 Mg Capsule, 100 MG PO HS, (Reported) Entered as Reported by: EDISON PRESTON on 04/06/21 1126 Cholecalciferol (Vitamin D3) (Vitamin D3) 50 Mcg Tablet, 50 MCG PO DAILY, (Reported) Entered as Reported by: EDISON PRESTON on 04/06/21 1126 Clonazepam (Clonazepam) 1 Mg Tablet, 1 MG PO TID, (Reported) Entered as Reported by: HILARY APPIAH on 12/27/15 0851 Donepezil HCl (Donepezil HCl) 5 Mg Tablet, 5 MG PO HS, (Reported) Entered as Reported by: EDISON PRESTON on 04/06/21 1126 Doxazosin Mesylate (Doxazosin Mesylate) 4 Mg Tablet, 4 MG PO 1700, (Reported) Entered as Reported by: CARIN PRINGLE on 05/27/15 1136 Fluticasone Propionate (Fluticasone Propionate) 16 Gm Hoskins.susp, 1 SPRAY NSEACH DAILY, (Reported) Entered as Reported by: HILARY APPIAH on 12/06/16 1119 Glipizide (Glipizide) 5 Mg Tablet, 5 MG PO BID, (Reported) Entered as Reported by: JACINTA DE LA O on 01/26/17 1414 Glycerin/Propylene Glycol (Lubricant Eye Drops) 15 Ml Drops, 1 DROP OU QID PRN for DRY EYES, (Reported) Entered as Reported by: HILARY APPIAH on 12/06/16 1126 Guaifenesin/Dextromethorphan (Guaifenesin Dm Syrup) 5 Ml Syrup, 20 ML PO Q4H PRN for COUGH, (Reported) Entered as Reported by: HILARY APPIAH on 04/23/19 1238 Hydrochlorothiazide (Hydrochlorothiazide) 25 Mg Tablet, 25 MG PO DAILY, (Reported) Entered as Reported by: EDISON PRESTON on 04/06/21 1126 Levocetirizine Dihydrochloride (Levocetirizine Dihydrochloride) 5 Mg Tablet, 5 MG PO HS, (Reported) Entered as Reported by: HILARY APPIAH on 11/25/17 1108 Loratadine (Loratadine) 10 Mg Tablet, 10 MG PO DAILY, (Reported) Entered as Reported by: HILARY APPIAH on 04/23/19 1009 Metformin HCl (Metformin HCl) 500 Mg Tablet, 500 MG PO BID WITH MEALS, (Reported) Entered as Reported by: KRYSTIN NEWMAN on 01/26/171801 Mirabegron (Myrbetriq) 25 Mg Tab.er.24h, 25 MG PO 1700, (Reported) Entered as Reported by: KRYSTIN NEWMAN on 01/26/171801 Multivitamin with Minerals (Men's One Daily) 1 Each Tablet, 1 TAB PO DAILY, (Reported) Entered as Reported by: HILARY APPIAH on 04/23/19 1223 Nystatin (Nystatin) 15 Gm Cream..g., 1 APPLIC TOP BID, (Reported) Entered as Reported by: HILARY APPIAH on 11/25/17 1108 [place] 3 Polyunsat Fatty Acids (Fish Oil 1,000 mg Capsule) 1,000 Mg Cap, 1,000 MG PO DAILY, (Reported) Entered as Reported by: HILARY APPIAH on 04/23/19 1223 Ondansetron HCl (Ondansetron HCl) 4 Mg Tablet, 4 MG PO HS PRN for NAUSEA/VOMITING-1ST LINE, (Reported) Entered as Reported by: HILARY APPIAH on 04/23/19 1223 Pregabalin (Pregabalin) 100 Mg Capsule, 100 MG PO TID, (Reported) Entered as Reported by: EDISON PRESTON on 04/06/21 1126 Rivastigmine (Rivastigmine) 1 Each Patch.td24, 4.6 MG TD DAILY, (Reported) Entered as Reported by: KRYSTIN NEWMAN on 01/26/171801 Sucralfate (Sucralfate) 1 Gm Tablet, 1 GM PO ACHS Prescribed by: KRISTIAN LOCKHART on 04/09/21 1234 Triamcinolone Acet (Triamcinolone Acetonide 0.1% Cream) 15 Gm Cr, 1 APPLIC TOP BID PRN for RASH, (Reported) Entered as Reported by: KRYSTIN NEWMAN on 01/26/171801 Vilazodone Hydrochloride (Viibryd) 10 Mg Tablet, 10 MG PO HS, (Reported) Entered as Reported by: CARIN PRINGLE on 05/27/15 1136 Past Uarfpgs-Herbsu-Aignoa Hx Patient Social History Smoking Status: Former Smoker Former Smoker, Quit: Mar 31, 1966 Type Used: Cigars, Cigarettes 2nd Hand Smoke Exposure: No Recent Hopitalizations: No Alcohol Use?: No Have you traveled recently?: No Immunizations Up To Date Tetanus Booster (TDap): Unknown PED Vaccines UTD: No Date of Pneumonia Vaccine: Mar 31, 2016 Date of Influenza Vaccine: Nov 29, 2020 Seasonal Allergies Seasonal Allergies: Yes Surgeries History of Surgeries: Yes (RIGHT EYELID BASAL CELL CANCER; HERNIA REPAIR X 4, PER PT ) Surgeries: Abdominal, Adenoidectomy, Eye Surgery, Prostatectomy, Tonsillectomy Respiratory History of Respiratory Disorde: Yes (O2 DEPENDENT AT 3L/NC CONTINUOUSLY;MULTIPLE EPISODES OF PNEUMONIA) Respiratory Disorders: Pneumonia, Chronic Bronchitis, COPD, Emphysema Cardiovascular History of Cardiac Disorders: Yes Cardiac Disorders: Chronic Edema/Swelling, High Cholesterol, Hypertension Neurological History of Neurological Disord: Yes Neurological Disorders: Dementia Reproductive System Hx Reproductive Disorders: No Sexually Transmitted Disease: No HIV/AIDS: No Genitourinary History of Genitourinary Disor: Yes (PROSTATE CANCER > 10 YEARS AGO) Genitourinary Disorders: Prostate Problems, Kidney Stones Gastrointestinal History of Gastrointestinal Di: Yes (S/P HERNIA REPAIR X 4, PER PT) Gastrointestinal Disorders: Abdominal Hernia, Gastroesophageal Reflux, Chronic Constipation, Polyps, Hiatal Hernia Musculoskeletal History of Musculoskeletal Dis: Yes (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) Musculoskeletal Disorders: Degenerate Disk Disease, Osteoporosis, Arthritis, Chronic Back Pain Endocrine History of Endocrine Disorders: Yes Endocrine Disorders: Diabetes, Non-Insulin dep HEENT History of HEENT Disorders: Yes (R EYELID BASAL CELL CANCER;SINUSITIS; NOSEBLEEDS) HEENT Disorders: Cataract Loss of Vision: Right Hearing Impairment: Denies Cancer History of Cancer: Yes (PROSTATE CANCER, BASAL CELL CANCER OF RIGHT EYE) Cancer: Prostate, Skin Psychosocial History of Psychiatric Problem: Yes Behavioral Health Disorders: Anxiety, Depression Integumentary History of Skin or Integumenta: Yes (SKIN CANCER; PRESSURE ULCERS OF BUTTOCKS/SACRUM) Blood Transfusions History of Blood Disorders: No Adverse Reaction to a Blood Tr: No Family Medical History Significant Family History: Heart Disease, Lung Disease Family Medial History: FH: breast cancer G8 SISTER Myocardial infarction 19 FATHER Review of Systems-General Constitutional: No chills, No fever EENTM: vision loss; No hearing loss Respiratory: No cough; short of breath Cardiovascular: No chest pain, No palpitations Gastrointestinal: abdominal pain; No constipation; diarrhea; No hematemesis, No melena, No nausea, No vomiting Genitourinary: No hematuria, No pain Musculoskeletal: No back pain, No neck pain Psychiatric/Neurological: Denies Numbness, Denies Weakness Physical Exam-General Problems Physical Exam Vital Signs Vital Signs - First Documented 05/25/21 01:48 Temp 36.0 Pulse 80 Resp 20 B/P (MAP) 132/77 (95) Pulse Ox 95 O2 Delivery Nasal Cannula O2 Flow Rate 3.00 Capillary Refill : Less Than 3 Seconds General Appearance: WD/WN, no apparent distress HEENT: No photophobia; other (right eye erythematous ) Neck: non-tender, full range of motion Respiratory: no accessory muscle use, decreased breath sounds, other (on oxygen ) Cardiovascular: regular rate, rhythm; No no murmur Gastrointestinal: normal bowel sounds, tenderness, hepatomegaly Extremities: normal range of motion, swelling (LE b/l) Neurologic/Psychiatric: alert, normal mood/affect, oriented x 3 Skin: warm/dry, other (IV line left arm ) Data Review Labs Laboratory Tests 05/25/21 01:52: White Blood Count 7.6, Red Blood Count 4.04L, Hemoglobin 11.2L, Hematocrit 36L, Mean Corpuscular Volume 89, Mean Corpuscular Hemoglobin 28, Mean Corpuscular Hemoglobin Concent 31L, Red Cell Distribution Width 14.1, Platelet Count 199, Mean Platelet Volume 10.0, Immature Granulocyte % (Auto) 1, Neutrophils (%) (Auto) 52, Lymphocytes (%) (Auto) 30, Monocytes (%) (Auto) 15H, Eosinophils (%) (Auto) 3, Basophils (%) (Auto) 0, Neutrophils # (Auto) 3.9, Lymphocytes # (Auto) 2.3, Monocytes # (Auto) 1.1H, Eosinophils # (Auto) 0.2, Basophils # (Auto) 0.0, Immature Granulocyte # (Auto) 0.0, Prothrombin Time 14.1, INR Comment 1.0, Activated Partial Thromboplast Time 33, Sodium Level 137, Potassium Level 4.2, Chloride Level 103, Carbon Dioxide Level 23, Anion Gap 11, Blood Urea Nitrogen 17, Creatinine 0.88, Estimat Glomerular Filtration Rate 84, BUN/Creatinine Ratio 19, Glucose Level 86, Calcium Level 9.3, Corrected Calcium 9.3, Magnesium Level 2.0, Total Bilirubin 0.3, Aspartate Amino Transf (AST/SGOT) 47H, Alanine Aminotransferase (ALT/SGPT) 38, Alkaline Phosphatase 79, Myoglobin 63.3, Troponin I < 0.028, B-Type Natriuretic Peptide 11.1, Total Protein 7.5, Albumin 4.0, Lipase 346H 05/25/21 02:00: Influenza Type A (RT-PCR) Not Detected, Influenza Type B (RT-PCR) Not Detected, SARS-CoV-2 RNA (RT-PCR) Not Detected 05/25/21 02:30: Urine Color YELLOW, Urine Clarity CLEAR, Urine pH 6.0, Urine Specific [place] 1.020, Urine Protein NEGATIVE, Urine Glucose (UA) NEGATIVE, Urine Ketones NEGATIVE, Urine Nitrite NEGATIVE, Urine Bilirubin NEGATIVE, Urine Urobilinogen 0 .2, Urine Leukocyte Esterase NEGATIVE, Urine RBC (Auto) NEGATIVE, Urine RBC NONE, Urine WBC NONE, Urine Crystals NONE, Urine Bacteria NEGATIVE, Urine Casts NONE, Urine Mucus NEGATIVE, Urine Other STARCH CRYSTALS, Urine Culture Indicated NO 05/25/21 04:05: Glucometer 88 Assessment/Plan Assessment/Plan Assessment/Plan Epigastric Pain Lipase of 346 with Epigastric pain suggests acute pancreatitis, repeat Lipase and CBC with diff. Clear liquid diet, IVF and bowel rest. Monitor glucose and lipid panel, treat with insulin and -statin. Ordered Ultrasound of gallbladder. COPD Continue oxygen, incentive Spirometer, and medications PMH of alcohol use Clinical Quality Measures AMI/AHF: ASA po Prior to arrival: MAXI Butcher DO 05/25/21 1135: History of Present Illness History of Present Illness History of Present Illness Patient 85 year old male with about 2 days of abdominal pain. Pain located in epigastric region. Variable intensity 2-10/10. No radiation of pain. Sitting up helps pain. Regular food makes worse. Has had similar pains on and off for years. Tolerating clears. Had ct scan: Hiatal hernia. Hepatomegaly. Left nephrolithiasis. Uncomplicated diverticulosis of the colon. No acute abnormality seen. Allergies and Home Medications Allergies Coded Allergies: Serotonin 5HT-3 Antagonists (Unverified Allergy, Unknown, 11/25/17) Tricyclic Compounds (Unverified Allergy, Unknown, 11/25/17) codeine (Verified Allergy, Unknown, 04/07/06) hydrocodone (Unverified Allergy, Unknown, 10/16/15) aspirin (Unverified Adverse Reaction, Mild, STOMACH IRRITATION, 11/25/17) Patient Home Medication List Home Medication List Reviewed: Yes Albuterol Sulfate (Albuterol Sulfate) 2.5 Mg/3 Ml Vial.neb, 2.5 MG NEB TID, (Reported) Entered as Reported by: HILARY APPIAH on 04/23/19 1223 Amlodipine Besylate (Amlodipine Besylate) 10 Mg Tablet, 10 MG PO DAILY, (Reported) Entered as Reported by: HILARY APPIAH on 12/27/15 0851 Amoxicillin/Potassium Clav (Amox Tr-K Clv 875-125 mg Tab) 1 Each Tablet, 875 MG PO BID WITH MEALS Prescribed by: KRISTIAN LOCKHART on 04/09/21 1234 Benzonatate (Benzonatate) 100 Mg Capsule, 100 MG PO HS, (Reported) Entered as Reported by: EDISON PRESTON on 04/06/21 1126 Cholecalciferol (Vitamin D3) (Vitamin D3) 50 Mcg Tablet, 50 MCG PO DAILY, (Reported) Entered as Reported by: EDISON PRESTON on 04/06/21 1126 Clonazepam (Clonazepam) 1 Mg Tablet, 1 MG PO TID, (Reported) Entered as Reported by: HILARY APPIAH on 12/27/15 0851 Donepezil HCl (Donepezil HCl) 5 Mg Tablet, 5 MG PO HS, (Reported) Entered as Reported by: EDISON PRESTON on 04/06/21 1126 Doxazosin Mesylate (Doxazosin Mesylate) 4 Mg Tablet, 4 MG PO 1700, (Reported) Entered as Reported by: CARIN PRINGLE on 05/27/15 1136 Fluticasone Propionate (Fluticasone Propionate) 16 Gm Hoskins.susp, 1 SPRAY NSEACH DAILY, (Reported) Entered as Reported by: HILARY APPIAH on 12/06/16 1119 Glipizide (Glipizide) 5 Mg Tablet, 5 MG PO BID, (Reported) Entered as Reported by: JACINTA DE LA O on 01/26/17 1414 Glycerin/Propylene Glycol (Lubricant Eye Drops) 15 Ml Drops, 1 DROP OU QID PRN for DRY EYES, (Reported) Entered as Reported by: HILARY APPIAH on 12/06/16 1126 Guaifenesin/Dextromethorphan (Guaifenesin Dm Syrup) 5 Ml Syrup, 20 ML PO Q4H PRN for COUGH, (Reported) Entered as Reported by: HILARY APPIAH on 04/23/19 1238 Hydrochlorothiazide (Hydrochlorothiazide) 25 Mg Tablet, 25 MG PO DAILY, (Reported) Entered as Reported by: EDISON PRESTON on 04/06/21 1126 Levocetirizine Dihydrochloride (Levocetirizine Dihydrochloride) 5 Mg Tablet, 5 MG PO HS, (Reported) Entered as Reported by: HILARY APPIAH on 11/25/17 1108 Loratadine (Loratadine) 10 Mg Tablet, 10 MG PO DAILY, (Reported) Entered as Reported by: HILARY APPIAH on 04/23/19 100 Metformin HCl (Metformin HCl) 500 Mg Tablet, 500 MG PO BID WITH MEALS, (Repor herlinda) Entered as Reported by: KRYSTIN NEWMAN on 01/26/17 180 Mirabegron (Myrbetriq) 25 Mg Tab.er.24h, 25 MG PO 1700, (Reported) Entered as Reported by: KRYSTIN NEWMAN on 01/26/17 180 Multivitamin with Minerals (Men's One Daily) 1 Each Tablet, 1 TAB PO DAILY, (Reported) Entered as Reported by: HILARY APPIAH on 04/23/19 1223 Nystatin (Nystatin) 15 Gm Cream..g., 1 APPLIC TOP BID, (Reported) Entered as Reported by: HILARY APPIAH on 11/25/17 1108 [place] 3 Polyunsat Fatty Acids (Fish Oil 1,000 mg Capsule) 1,000 Mg Cap, 1,000 MG PO DAILY, (Reported) Entered as Reported by: HILARY APPIAH on 04/23/19 1223 Ondansetron HCl (Ondansetron HCl) 4 Mg Tablet, 4 MG PO HS PRN for NAUSEA/VOMITING-1ST LINE, (Reported) Entered as Reported by: HILARY APPIAH on 04/23/19 1223 Pregabalin (Pregabalin) 100 Mg Capsule, 100 MG PO TID, (Reported) Entered as Reported by: EDISON PRESTON on 04/06/21 1126 Rivastigmine (Rivastigmine) 1 Each Patch.td24, 4.6 MG TD DAILY, (Reported) Entered as Reported by: KRYSTIN NEWMAN on 01/26/171801 Sucralfate (Sucralfate) 1 Gm Tablet, 1 GM PO ACHS Prescribed by: KRISTIAN LOCKHART on 04/09/21 1234 Triamcinolone Acet (Triamcinolone Acetonide 0.1% Cream) 15 Gm Cr, 1 APPLIC TOP BID PRN for RASH, (Reported) Entered as Reported by: KRYSTIN NEWMAN on 01/26/171801 Vilazodone Hydrochloride (Viibryd) 10 Mg Tablet, 10 MG PO HS, (Reported) Entered as Reported by: CARIN PRINGLE on 05/27/15 1136 Past Wkozvah-Bgkxmz-Ionkpd Hx Reviewed Nursing Assessment Reviewed/Agree w Nursing PMH: Yes Family Medical History Significant Family History: No Pertinent Family Hx Family Medial History: FH: breast cancer G8 SISTER Myocardial infarction 19 FATHER Review of Systems-General Constitutional: No chills, No fever EENTM: vision loss; No hearing loss Respiratory: No cough; short of breath Cardiovascular: No chest pain, No palpitations Gastrointestinal: abdominal pain; No constipation; diarrhea; No hematemesis, No melena, No nausea, No vomiting Genitourinary: No hematuria, No pain Musculoskeletal: No back pain, No neck pain Skin: No change in color, No change in hair/nails Psychiatric/Neurological: Denies Numbness, Denies Weakness All Other Systems Reviewed Negative Unless Noted: Yes (Negative excepted noted.) Physical Exam-General Problems Physical Exam General Appearance: WD/WN, no apparent distress HEENT: other (right eye erythematous limited vision, absent lower lid) Neck: non-tender, full range of motion Respiratory: chest non-tender, no respiratory distress, no accessory muscle use Cardiovascular: regular rate, rhythm, no JVD Gastrointestinal: soft, tenderness (minimal epigastric) Rectal: deferred Back: no CVA tenderness, no vertebral tenderness Extremities: non-tender, swelling Neurologic/Psychiatric: alert, normal mood/affect, oriented x 3 Skin: normal color, warm/dry Lymphatic: no adenopathy Assessment/Plan Assessment/Plan Assessment/Plan Epigastric Pain/Pancreatitis Lipase of 346 with Epigastric pain suggests acute pancreatitis, CT scan not consistent with acute pancreatitis. Clear liquid diet, IVF and bowel rest. Will get u/s of gallbladder COPD Continue oxygen, incentive Spirometer, and medications PMH of alcohol use Supervisory-Addendum Brief Verification & Attestation Participated in pt care: history, MDM, physical Personally performed: exam, history, MDM, supervision of care Care discussed with: Medical Student Procedures: n/a Results interpretation: Verified all documentation Verification and Attestation of Medical Student E/M Service A medical student performed and documented this service in my presence. I reviewed and verified all information documented by the medical student and made modifications to such information, when appropriate. I personally performed the physical exam and medical decision making. Maxi Alaniz, May 25, 2021,11:38 AUGUSTINE DOWD May 25, 2021 09:18 MAXI ALANIZ DO May 25, 2021 11:35
[2021-05-25 09:48] VITALS: BP 160/75
[2021-05-25] MEDS ORDERED: RT-ALBUTEROL/IPRATROPIUM 3 ML (DUONEB) VIAL INH PRN (10:15)
[2021-05-25] MEDS: inSUlin ASPART (NovoLOG) 1 UNIT/0.01 ML (CHARGE PER UNIT) SC SCH ×3 (11:30→20:17)
[2021-05-25] MEDS ORDERED: SODI50SP NSEACH (11:36)
[2021-05-25] MEDS ORDERED: [UNRECOGNIZED DRUG - OTHER] PO (11:36)
[2021-05-25] MEDS ORDERED: MENT71OI TP (11:36)
[2021-05-25 12:00] VITALS: BP 149/70
--- NOTE | 2021-05-25 13:21 | Diagnostic Imaging Report ---
PROCEDURE: US Gallbladder. TECHNIQUE: Multiple Real-time grayscale images were obtained over the right upper quadrant in various projections. INDICATION: Pancreatitis. FINDINGS: The liver is enlarged at 22 cm. The liver does show some increased echogenicity, suggestive of fatty infiltration. There may be a liver calcification in the left lobe. CT did show multiple granulomas. The portal vein is patent and shows normal direction of flow. The gallbladder is without stones or sludge. No significant wall thickening or biliary ductal dilatation is seen. There is some slight prominence to the pancreatic duct but no pancreatic mass is identified. The aorta is nonaneurysmal. The IVC is patent. The right kidney is without calculus or hydronephrosis. IMPRESSION: 1. Hepatomegaly and hepatic steatosis. 2. No evidence of cholelithiasis or acute cholecystitis. Dictated by: Dictated on workstation # [id number]
[2021-05-25] MEDS: RT-ALBUTEROL/IPRATROPIUM 3 ML (DUONEB) VIAL INH SCH ×2 (15:14→21:06)
[2021-05-25 15:41] VITALS: BP 143/73
[2021-05-25] MEDS: ARTIFICAL TEARS 0.4 ML UNIT DOSE (REFRESH PLUS) OD SCH ×2 (19:01→23:19)
[2021-05-25 19:47] VITALS: BP 154/77
[2021-05-25 23:19] VITALS: BP 169/78
[2021-05-26] MEDS ORDERED: clonazePAM 1 MG (KlonoPIN) TAB PO ONE (00:15)
[2021-05-26] MEDS: RT-ALBUTEROL/IPRATROPIUM 3 ML (DUONEB) VIAL INH SCH ×4 (01:52→22:06)
[2021-05-26 03:38] VITALS: BP 162/75
[2021-05-26] MEDS: inSUlin ASPART (NovoLOG) 1 UNIT/0.01 ML (CHARGE PER UNIT) SC SCH ×4 (06:04→20:13)
[2021-05-26] MEDS: ARTIFICAL TEARS 0.4 ML UNIT DOSE (REFRESH PLUS) OD SCH ×4 (06:04→23:44)
[2021-05-26 06:14] LABS: BASOPHILS % (AUTO) 0 % (0-10); EOSINOPHILS # (AUTO) 0.1 10^3/uL (0.0-0.3); EOSINOPHILS % (AUTO) 2 % (0-10); HEMATOCRIT 39 % (40-54); HEMOGLOBIN 12.2 g/dL (13.3-17.7); LYMPHOCYTES # (AUTO) 1.8 10^3/uL (1.0-4.0); LYMPHOCYTES % (AUTO) 24 % (12-44); MEAN CORPUSCULAR HEMOGLOBIN 27 pg (25-34); MEAN CORPUSCULAR HGB CONC 31 g/dL (32-36); MEAN CORPUSCULAR VOLUME 88 fL (80-99); MEAN PLATELET VOLUME 9.7 fL (9.0-12.2); MONOCYTES # (AUTO) 0.8 10^3/uL (0.0-1.0); MONOCYTES % (AUTO) 10 % (0-12); NEUTROPHILS # (AUTO) 4.8 10^3/uL (1.8-7.8); NEUTROPHILS % (AUTO) 64 % (42-75); PLATELET COUNT 211 10^3/uL (130-400); WHITE BLOOD COUNT 7.5 10^3/uL (4.3-11.0)
[2021-05-26] MEDS ORDERED: MENTHOL/ZINC OXIDE (CALMOSEPTINE) 113 GM TUBE TP PRN (06:15)
[2021-05-26] MEDS ORDERED: SALINE NASAL SPRAY (OCEAN) 45 ML BTL PRN (06:15)
[2021-05-26] MEDS ORDERED: BENZONATATE 100 MG (TESSALON) CAPSULE PO PRN (06:15)
[2021-05-26] MEDS ORDERED: guaiFENesin/DM (ROBITUSSIN DM) 10 ML UDC PO PRN (06:15)
[2021-05-26] MEDS ORDERED: TRIAMCINOLONE 0.1% CR (KENALOG) 15 GM TUBE TOP PRN (06:15)
[2021-05-26 06:32] LABS: POTASSIUM 4.2 MMOL/L (3.6-5.0)
[2021-05-26 06:34] LABS: TOTAL PROTEIN 7.5 GM/DL (6.4-8.2)
[2021-05-26 06:36] LABS: BILIRUBIN,TOTAL 0.5 MG/DL (0.1-1.0)
[2021-05-26 06:38] LABS: CREATININE SERUM 0.73 MG/DL (0.60-1.30)
[2021-05-26] MEDS ORDERED: ARTIFICAL TEARS 0.4 ML UNIT DOSE (REFRESH PLUS) OU PRN (07:30)
[2021-05-26] MEDS ORDERED: ONDANSETRON 4 MG (ZOFRAN) ORAL DISSOLVE TAB PO PRN (07:30)
--- NOTE | 2021-05-26 07:32 | Progress Note - Hospitalist ---
Subjective HPI/CC On Admission Date Seen by Provider: May 26, 2021 Time Seen by Provider: 10:00 Chief complaint: Pancreatitis History of present illness: This is an 85-year-old white male who has a past medical history of multiple comorbidities who presented with abdominal pain. Patient was found to have increased lipase. Dr. Morris is consulted. Overall he reports some nausea and some pain but is able to get relief from pain medication. Ultrasound will be evaluated to be sure there is no biliary component to the pancreatitis. Subjective/Events-last exam Patient doing pretty well No pain No stomach upset today Had a bit of a nosebleed but it was mild Edema is improved Patient still lives at home with his We will monitor closely Review of Systems General: Fatigue, Malaise Objective Exam Vital Signs Vital Signs Date Time Temp Pulse Resp B/P (MAP) Pulse Ox O2 Delivery O2 Flow Rate FiO2 05/27/21 04:00 36.8 84 20 156/74 (101) 93 Nasal Cannula 3.00 Capillary Refill : Less Than 3 Seconds General Appearance: No Apparent Distress, WD/WN, Chronically ill Respiratory: Lungs Clear, Normal Breath Sounds Cardiovascular: Regular Rate, Rhythm Neurologic/Psychiatric: Alert Results/Procedures Lab Laboratory Tests 05/27/21 05:42 Patient resulted labs reviewed. Assessment/Plan Assessment and Plan Assess & Plan/Chief Complaint Assessment: Acute pancreatitis Abdominal pain Dementia Emotional problems Hypertension Diabetes Hyperlipidemia Former smoker Advanced age Plan: Bowel rest Ultrasound Dr. Morris consult 05/26/2021: Advance diet Supportive care Diagnosis/Problems Diagnosis/Problems (1) Pancreatitis Status: Acute Qualifiers: Chronicity: acute Pancreatitis type: unspecified pancreatitis type Acute pancreatitis complication: unspecified Qualified Codes: K85.90 - Acute pancreatitis without necrosis or infection, unspecified Clinical Quality Measures AMI/AHF: ASA po Prior to arrival: MARSHAL Mendes DO May 26, 2021 07:31
[2021-05-26 07:54] VITALS: BP 145/82
[2021-05-26] MEDS: VITAMIN D3 25 MCG (1,000 UNITS) TABLET PO SCH (08:22)
[2021-05-26] MEDS: clonazePAM 1 MG (KlonoPIN) TAB PO SCH ×3 (08:22→20:12)
[2021-05-26] MEDS: amLODIPine 10 MG (NORVASC) TAB PO SCH (08:22)
[2021-05-26] MEDS: LORATADINE (CLARITIN) 10 MG TAB PO SCH (08:22)
[2021-05-26] MEDS: glipiZIDE 5 MG (GLUCOTROL) TAB PO SCH ×2 (08:22→17:35)
[2021-05-26] MEDS: PANTOPRAZOLE 40 MG (PROTONIX) VIAL IV SCH (08:22)
[2021-05-26] MEDS: DOCUSATE SODIUM 100 MG (COLACE) CAP PO SCH ×2 (08:22→20:12)
[2021-05-26] MEDS: SENNOSIDES 8.6 MG (SENOKOT) TAB PO SCH ×2 (08:22→20:12)
[2021-05-26] MEDS: PREGABALIN 100 MG (LYRICA) CAPSULE PO SCH ×3 (08:22→20:13)
[2021-05-26] MEDS: ENOXAPARIN 40 MG/0.4 ML (LOVENOX) SYR SC SCH (08:23)
[2021-05-26] MEDS: FLUTICASONE NASAL SPRAY (FLONASE) 16 GM BTL NS SCH (08:23)
[2021-05-26] MEDS: NYSTATIN CREAM (MYCOSTATIN) 30 GM TUBE TP SCH ×2 (08:23→20:17)
[2021-05-26] MEDS: NS IV 1000 ML 1,000 ML IV SCH ×2 (08:27→23:44)
[2021-05-26] MEDS ORDERED: RIVASTIGMINE 4.6 MG TOP SCH (09:00)
[2021-05-26] MEDS ORDERED: RT-ALBUTEROL SULF 2.5 MG/3 ML PRE-MIX VIAL IH SCH (09:00)
[2021-05-26] MEDS ORDERED: clonazePAM 1 MG (KlonoPIN) TAB PO SCH (09:00)
--- NOTE | 2021-05-26 09:12 | Progress Note - Surgery ---
DEONTE HYLTON MED STUDENT 05/26/21 0912: Subjective Date Seen by a Provider: May 26, 2021 Time Seen by a Provider: 09:00 Subjective/Events-last exam Patient denies N/V, abdominal pain, headache, chest pain and SOB. Reports having an "upset stomach". States he's tolerating clears without difficulty. States he had a nose bleed overnight and wants the doctor to look up his nose. Denies other questions or complaints at this time. Review of Systems General: No Chills, No Night Sweats HEENT: No Head Aches; Other (Loss vision/eye drainage/tearing chronically right eye) Pulmonary: No Dyspnea, No Cough, No Pleuritic Chest Pain Cardiovascular: Edema (BLE); No: Chest Pain, Palpitations, Orthopnea, Paroxys mal Noc. Dyspnea Gastrointestinal: No: Nausea, Vomiting, Abdominal Pain, Diarrhea, Constipation Genitourinary: No Dysuria, No Frequency Musculoskeletal: No: neck pain, back pain Neurological: No: Weakness, Numbness Objective Exam Vital Signs Date Time Temp Pulse Resp B/P (MAP) Pulse Ox O2 Delivery O2 Flow Rate FiO2 05/26/21 07:54 36.6 101 18 145/82 (103) 93 Nasal Cannula 3.00 05/26/21 03:38 36.4 77 20 162/75 (104) 94 Nasal Cannula 3.00 05/25/21 23:19 36.0 79 18 169/78 (108) 91 Nasal Cannula 3.00 05/25/21 21:06 98 Nasal Cannula 3.00 05/25/21 19:50 Nasal Cannula 3.00 05/25/21 19:47 35.8 80 18 154/77 (102) 94 Nasal Cannula 3.00 05/25/21 15:41 35.8 76 18 143/73 (96) 93 Nasal Cannula 3.00 05/25/21 15:16 98 Nasal Cannula 3.00 05/25/21 12:00 36.0 72 18 149/70 (96) 92 Nasal Cannula 3.00 05/25/21 11:38 Nasal Cannula 3.00 05/25/21 09:48 36.3 81 91 I & O 05/26/21 07:00 Intake Total 1760 ml Balance 1760 ml Capillary Refill : Less Than 3 Seconds General Appearance: No Apparent Distress, Chronically ill HEENT: Moist Mucous Membranes, Other (Right eye deformity. 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 R eye matted and clear/yellowish discharge noted. ) Neck: Non Tender, Limited Range of Motion, Other (Patient upper thoracic spine severe kyphotic curvature) Respiratory: Chest Non Tender, Lungs Clear, No Accessory Muscle Use, No Respiratory Distress, Decreased Breath Sounds, Rhonci, Other (02 dependent at 3L baseline, wearing NC) Cardiovascular: Regular Rate, Rhythm, Normal Peripheral Pulses, Other (BLE edema 2+) Peripheral Pulses: 1+ Dorsalis Pedis (R), 1+ Left Dors-Pedis (L); 2+ Radial Pulses (R), 2+ Radial Pulses (L) Gastrointestinal: normal bowel sounds, non tender, soft; No distended Extremity: Normal Capillary Refill, No Calf Tenderness, Pedal Edema, Swelling Neurologic/Psychiatric: Alert, Normal Mood/Affect Skin: Normal Color, Warm/Dry Lymphatic: No Adenopathy (Head and Neck) Results Lab Laboratory Tests 05/25/21 11:28: Glucometer 144H 05/25/21 15:31: Glucometer 141H 05/25/21 20:06: Glucometer 150H 05/26/21 05:50: White Blood Count 7.5, Red Blood Count 4.45, Hemoglobin 12.2L, Hematocrit 39L, Mean Corpuscular Volume 88, Mean Corpuscular Hemoglobin 27, Mean Corpuscular Hemoglobin Concent 31L, Red Cell Distribution Width 13.7, Platelet Count 211, Mean Platelet Volume 9.7, Immature Granulocyte % (Auto) 1, Neutrophils (%) (Auto) 64, Lymphocytes (%) (Auto) 24, Monocytes (%) (Auto) 10, Eosinophils (%) (Auto) 2, Basophils (%) (Auto) 0, Neutrophils # (Auto) 4.8, Lymphocytes # (Auto) 1.8, Monocytes # (Auto) 0.8, Eosinophils # (Auto) 0.1, Basophils # (Auto) 0.0, Immature Granulocyte # (Auto) 0.0, Sodium Level 133L, Potassium Level 4.2, Chloride Level 99, Carbon Dioxide Level 23, Anion Gap 11, Blood Urea Nitrogen 9, Creatinine 0.73, Estimat Glomerular Filtration Rate 89, BUN/Creatinine Ratio 12, Glucose Level 116H, Calcium Level 9.0, Corrected Calcium 9.0, Total Bilirubin 0.5, Aspartate Amino Transf (AST/SGOT) 73H, Alanine Aminotransferase (ALT/SGPT) 47, Alkaline Phosphatase 55, Total Protein 7.5, Albumin 4.0, Lipase 52 05/26/21 06:03: Glucometer 128H Assessment/Plan Assessment/Plan Assessment/Plan Acute Pancreatitis Epigastric Abdominal pain 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 Lipase down to 52 today from 346 yesterday Clear liquid diet Gentle IVF's Please apply vaseline around patients nares Continue conservative management Clinical Quality Measures AMI/AHF: ASA po Prior to arrival: ASHLEY Butcher DO 05/26/21 1324: Subjective Subjective/Events-last exam Patient sitting up in chair. He is feeling better. Not having any pain at time of my visit. He elevated nosebleed due to the nasal cannula he thinks. Denies any nausea vomiting fever sweats chills shortness of breath or chest pain at this time. Ultrasound performed showing no evidence of cholelithiasis or cholecystitis. Objective Exam General Appearance: No Apparent Distress HEENT: Moist Mucous Membranes, Other (Right eye deformity. 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 R eye matted and clear/yellowish discharge noted. ) Neck: Non Tender, Limited Range of Motion, Other (Patient upper thoracic spine severe kyphotic curvature) Respiratory: Chest Non Tender, No Accessory Muscle Use, No Respiratory Distress, Other (02 dependent at 3L baseline, wearing NC) Cardiovascular: Regular Rate, Rhythm, No JVD, Other (BLE edema 2+) Gastrointestinal: non tender, soft; No distended Extremity: Normal Capillary Refill, No Calf Tenderness, Pedal Edema, Swelling Neurologic/Psychiatric: Alert, Normal Mood/Affect Skin: Normal Color, Warm/Dry Lymphatic: No Adenopathy (Head and Neck) Assessment/Plan Assessment/Plan Assessment/Plan Acute Pancreatitis Epigastric Abdominal pain 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 Lipase down to 52 today from 346 yesterday Clear liquid diet can advance as tolerates. Gentle IVF's Continue conservative management Supervisory-Addendum Brief Verification & Attestation Participated in pt care: history, MDM, physical Personally performed: exam, history, MDM, supervision of care Care discussed with: Medical Student Procedures: n/a Results interpretation: Verified all documentation Verification and Attestation of Medical Student E/M Service A medical student performed and documented this service in my presence. I r eviewed and verified all information documented by the medical student and made modifications to such information, when appropriate. I personally performed the physical exam and medical decision making. Ashley Morris, May 26, 2021,13:24 DEONTE HYLTON MED STUDENT May 26, 2021 09:12 ASHLEY MORRIS DO May 26, 2021 13:24
[2021-05-26 12:04] VITALS: BP 120/70
[2021-05-26 15:46] VITALS: BP 123/66
[2021-05-26] MEDS ORDERED: doxAzosin 4 MG (CARDURA) TAB PO SCH (17:00)
[2021-05-26] MEDS ORDERED: NON-FORMULARY MEDICATION 1 EA EA (Mirabegron (Myrbetriq) 25 MG) PO SCH (17:00)
[2021-05-26 19:56] VITALS: BP 123/63
[2021-05-26] MEDS ORDERED: VILAZODONE HYDROCHLORIDE 10 MG PO SCH (21:00)
[2021-05-26] MEDS ORDERED: DONEPEZIL 5 MG (ARICEPT) TAB PO SCH (21:00)
[2021-05-26 23:05] VITALS: BP 141/67
[2021-05-27] MEDS: RT-ALBUTEROL/IPRATROPIUM 3 ML (DUONEB) VIAL INH SCH ×2 (02:48→09:08)
[2021-05-27 04:00] VITALS: BP 156/74
[2021-05-27] MEDS: inSUlin ASPART (NovoLOG) 1 UNIT/0.01 ML (CHARGE PER UNIT) SC SCH ×2 (05:15→11:06)
[2021-05-27 06:04] LABS: BASOPHILS % (AUTO) 1 % (0-10); EOSINOPHILS # (AUTO) 0.2 10^3/uL (0.0-0.3); EOSINOPHILS % (AUTO) 3 % (0-10); HEMATOCRIT 37 % (40-54); HEMOGLOBIN 11.4 g/dL (13.3-17.7); LYMPHOCYTES # (AUTO) 1.7 10^3/uL (1.0-4.0); LYMPHOCYTES % (AUTO) 24 % (12-44); MEAN CORPUSCULAR HEMOGLOBIN 28 pg (25-34); MEAN CORPUSCULAR HGB CONC 31 g/dL (32-36); MEAN CORPUSCULAR VOLUME 89 fL (80-99); MEAN PLATELET VOLUME 9.8 fL (9.0-12.2); MONOCYTES % (AUTO) 14 % (0-12); NEUTROPHILS # (AUTO) 4.2 10^3/uL (1.8-7.8); NEUTROPHILS % (AUTO) 58 % (42-75); PLATELET COUNT 192 10^3/uL (130-400); WHITE BLOOD COUNT 7.1 10^3/uL (4.3-11.0)
[2021-05-27] MEDS: ARTIFICAL TEARS 0.4 ML UNIT DOSE (REFRESH PLUS) OD SCH ×2 (06:17→12:14)
[2021-05-27 06:33] LABS: ALBUMIN 3.8 GM/DL (3.2-4.5); POTASSIUM 4.1 MMOL/L (3.6-5.0)
[2021-05-27 06:34] LABS: CALCIUM 8.8 MG/DL (8.5-10.1)
[2021-05-27 06:35] LABS: TOTAL PROTEIN 7.2 GM/DL (6.4-8.2)
[2021-05-27 06:37] LABS: BILIRUBIN,TOTAL 0.5 MG/DL (0.1-1.0)
[2021-05-27 06:39] LABS: CREATININE SERUM 0.78 MG/DL (0.60-1.30)
[2021-05-27 07:58] VITALS: BP 144/63
--- NOTE | 2021-05-27 08:25 | Progress Note - Hospitalist ---
Subjective HPI/CC On Admission Date Seen by Provider: May 27, 2021 Chief complaint: Pancreatitis History of present illness: This is an 85-year-old white male who has a past medical history of multiple comorbidities who presented with abdominal pain. Patient was found to have increased lipase. Dr. Morris is consulted. Overall he reports some nausea and some pain but is able to get relief from pain medication. Ultrasound will be evaluated to be sure there is no biliary component to the pancreatitis. Objective Exam Vital Signs Vital Signs Date Time Temp Pulse Resp B/P (MAP) Pulse Ox O2 Delivery O2 Flow Rate FiO2 05/27/21 13:45 05/27/21 11:53 36.4 79 20 93 Nasal Cannula 3.00 Capillary Refill : Less Than 3 Seconds Results/Procedures Lab Patient resulted labs reviewed. Assessment/Plan Assessment and Plan Assess & Plan/Chief Complaint Assessment: Acute pancreatitis Abdominal pain Dementia Emotional problems Hypertension Diabetes Hyperlipidemia Former smoker Advanced age Plan: Bowel rest Ultrasound Dr. Morris consult 05/26/2021: Advance diet Supportive care Diagnosis/Problems Diagnosis/Problems (1) Pancreatitis Status: Acute Qualifiers: Chronicity: acute Pancreatitis type: unspecified pancreatitis type Acute pancreatitis complication: unspecified Qualified Codes: K85.90 - Acute pancreatitis without necrosis or infection, unspecified Clinical Quality Measures AMI/AHF: ASA po Prior to arrival: MARSHAL Mendes DO May 27, 2021 08:25
--- NOTE | 2021-05-27 08:27 | Progress Note - Surgery ---
DEONTE HYLTON MED STUDENT 05/27/21 0826: Subjective Date Seen by a Provider: May 27, 2021 Time Seen by a Provider: 08:00 Subjective/Events-last exam Patient reports sleeping well overnight. Denies abdominal pain, nausea, vomiting, SOB, chest pain, and headaches. Tolerating po intake well. States is passing gas. Review of Systems General: No Chills, No Night Sweats HEENT: No Head Aches, No Visual Changes Pulmonary: No Dyspnea, No Cough Cardiovascular: No: Chest Pain, Palpitations Gastrointestinal: No: Nausea, Vomiting, Abdominal Pain Genitourinary: No Dysuria, No Frequency Musculoskeletal: No: neck pain, back pain Neurological: No: Weakness, Numbness, Change in speech Objective Exam Vital Signs Date Time Temp Pulse Resp B/P (MAP) Pulse Ox O2 Delivery O2 Flow Rate FiO2 05/27/21 07:58 36.8 79 20 144/63 (90) 93 Nasal Cannula 3.00 05/27/21 04:00 36.8 84 20 156/74 (101) 93 Nasal Cannula 3.00 05/27/21 02:48 92 Nasal Cannula 3.00 05/26/21 23:05 37.0 80 19 141/67 (91) 94 Nasal Cannula 3.00 05/26/21 22:06 94 Nasal Cannula 3.00 05/26/21 20:15 Nasal Cannula 3.00 05/26/21 19:56 36.5 84 22 123/63 (83) 95 Nasal Cannula 3.00 05/26/21 17:01 95 Nasal Cannula 3.00 05/26/21 15:46 36.6 89 18 123/66 (85) 91 Room Air 05/26/21 15:03 90 Nasal Cannula 3.00 05/26/21 12:04 36.6 82 18 120/70 (87) 94 Nasal Cannula 3.00 05/26/21 10:00 92 Nasal Cannula 3.00 I & O 05/27/21 07:00 Intake Total 1992 ml Output Total 500 ml Balance 1492 ml Capillary Refill : Less Than 3 Seconds General Appearance: No Apparent Distress, Chronically ill HEENT: PERRL/EOMI, Moist Mucous Membranes, Other (Right eye deformity. 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 R eye matted and clear/yellowish discharge noted. ) Neck: Non Tender, Limited Range of Motion, Other (Patient upper thoracic spine severe kyphotic curvature) Respiratory: Lungs Clear, Normal Breath Sounds, No Accessory Muscle Use, Other (02 dependent on 3L NC) Cardiovascular: Regular Rate, Rhythm, Normal Peripheral Pulses Peripheral Pulses: 1+ Dorsalis Pedis (R), 1+ Left Dors-Pedis (L); 2+ Radial Pulses (R), 2+ Radial Pulses (L) Gastrointestinal: normal bowel sounds, non tender, soft; No distended, No guarding, No rebound Extremity: Normal Capillary Refill, No Calf Tenderness, Pedal Edema, Swelling Neurologic/Psychiatric: Alert, Normal Mood/Affect Skin: Normal Color, Warm/Dry, Ecchymosis (scattered over arms bilaterally), Other (Scattered scabs, scars throughout. ) Lymphatic: No Adenopathy (Head and Neck) Results Lab Laboratory Tests 05/26/21 10:12: Glucometer 156H 05/26/21 15:53: Glucometer 147H 05/26/21 20:09: Glucometer 112H 05/27/21 05:05: Glucometer 96 05/27/21 05:42: White Blood Count 7.1, Red Blood Count 4.15L, Hemoglobin 11.4L, Hematocrit 37L, Mean Corpuscular Volume 89, Mean Corpuscular Hemoglobin 28, Mean Corpuscular Hemoglobin Concent 31L, Red Cell Distribution Width 13.9, Platelet Count 192, Mean Platelet Volume 9.8, Immature Granulocyte % (Auto) 0, Neutrophils (%) (Auto) 58, Lymphocytes (%) (Auto) 24, Monocytes (%) (Auto) 14H, Eosinophils (%) (Auto) 3, Basophils (%) (Auto) 1, Neutrophils # (Auto) 4.2, Lymphocytes # (Auto) 1.7, Monocytes # (Auto) 1.0, Eosinophils # (Auto) 0.2, Basophils # (Auto) 0.0, Immature Granulocyte # (Auto) 0.0, Sodium Level 136, Potassium Level 4.1, Chloride Level 102, Carbon Dioxide Level 24, Anion Gap 10, Blood Urea Nitrogen 13, Creatinine 0.78, Estimat Glomerular Filtration Rate 87, BUN/Creatinine Ratio 17, Glucose Level 101, Calcium Level 8.8, Corrected Calcium 9.0, Total Bilirubin 0.5, Aspartate Amino Transf (AST/SGOT) 123H, Alanine Aminotransferase (ALT/SGPT) 71H, Alkaline Phosphatase 55, Total Protein 7.2, Albumin 3.8, Lipase 46 Assessment/Plan Assessment/Plan Assessment/Plan Acute Pancreatitis -Improving Epigastric Abdominal pain- Resolved 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 Lipase trending down, 46 today Tolerating soft diet well Gentle IVF's Abdominal pain has abated, tolerating po intake well, passing flatus, lipase and liver enzymes improving. Continue conservative management Clinical Quality Measures AMI/AHF: ASA po Prior to arrival: ASHLEY Butcher DO 05/27/21 1151: Subjective Subjective/Events-last exam Patient feeling well. Not having abdominal pain. Tolerating diet. Denies n/v fever sweats chills shortness of breath or chest pain. + bowel function. Objective Exam General Appearance: No Apparent Distress, Anxious, Chronically ill HEENT: PERRL/EOMI, Moist Mucous Membranes, Other (Right eye deformity. 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 R eye matted and clear/yellowish discharge noted. ) Neck: Non Tender, Other (Patient upper thoracic spine severe kyphotic curvature) Respiratory: Chest Non Tender, No Accessory Muscle Use, No Respiratory Distress Cardiovascular: Regular Rate, Rhythm Gastrointestinal: non tender, soft Extremity: Normal Capillary Refill, Non Tender, No Calf Tenderness Neurologic/Psychiatric: Alert, No Motor/Sensory Deficits, Normal Mood/Affect Skin: Normal Color, Warm/Dry, Ecchymosis (scattered over arms bilaterally) Lymphatic: No Adenopathy (Head and Neck) Assessment/Plan Assessment/Plan Assessment/Plan Acute Pancreatitis -Improving Epigastric Abdominal pain- Resolved 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 Lipase trending down, 46 today Tolerating soft diet well Gentle IVF's Abdominal pain has abated, tolerating po intake well, passing flatus No surgical intervention, will sign off, call if needed. Supervisory-Addendum Brief Verification & Attestation Participated in pt care: history, MDM, physical Personally performed: exam, history, MDM, supervision of care Care discussed with: Medical Student Procedures: n/a Results interpretation: Verified all documentation Verification and Attestation of Medical Student E/M Service A medical student performed and documented this service in my presence. I reviewed and verified all information documented by the medical student and made modifications to such information, when appropriate. I personally performed the physical exam and medical decision making. Ashley Morris, May 27, 2021,11:48 DEONTE HYLTON MED STUDENT May 27, 2021 08:26 ASHLEY MORRIS DO May 27, 2021 11:51
[2021-05-27] MEDS: PREGABALIN 100 MG (LYRICA) CAPSULE PO SCH ×2 (08:45→12:14)
[2021-05-27] MEDS: glipiZIDE 5 MG (GLUCOTROL) TAB PO SCH (08:45)
[2021-05-27] MEDS: VITAMIN D3 25 MCG (1,000 UNITS) TABLET PO SCH (08:45)
[2021-05-27] MEDS: LORATADINE (CLARITIN) 10 MG TAB PO SCH (08:45)
[2021-05-27] MEDS: clonazePAM 1 MG (KlonoPIN) TAB PO SCH ×2 (08:45→12:14)
[2021-05-27] MEDS: SENNOSIDES 8.6 MG (SENOKOT) TAB PO SCH (08:46)
[2021-05-27] MEDS: PANTOPRAZOLE 40 MG (PROTONIX) VIAL IV SCH (08:46)
[2021-05-27] MEDS: NYSTATIN CREAM (MYCOSTATIN) 30 GM TUBE TP SCH (08:46)
[2021-05-27] MEDS: ENOXAPARIN 40 MG/0.4 ML (LOVENOX) SYR SC SCH (08:46)
[2021-05-27] MEDS: amLODIPine 10 MG (NORVASC) TAB PO SCH (08:46)
[2021-05-27] MEDS: DOCUSATE SODIUM 100 MG (COLACE) CAP PO SCH (08:46)
[2021-05-27] MEDS: FLUTICASONE NASAL SPRAY (FLONASE) 16 GM BTL NS SCH (08:46)
[2021-05-27] MEDS ORDERED: RT-ALBUTEROL SULF 2.5 MG/3 ML PRE-MIX VIAL INH PRN (09:15)
[2021-05-27] MEDS ORDERED: RT-ALBUTEROL SULF 2.5 MG/3 ML PRE-MIX VIAL ONE (09:58)
[2021-05-27 11:53] VITALS: BP 115/68
--- NOTE | 2021-05-27 12:29 | Discharge Summary ---
Discharge Summary Hospital Course Was the Problem List Reviewed?: Yes Problems/Dx: (1) Pancreatitis Status: Acute Qualifiers: Qualified Codes: K85.90 - Acute pancreatitis without necrosis or infection, unspecified Hospital Course Date of Admission: May 25, 2021 at 05:50 Admission Diagnosis : Family Physician/Provider: [facility] Date of Discharge: 05/27/21 Discharge Diagnosis: Pancreatitis, abdominal pain, epigastric pain Hospital Course: Short hospital course after admitted for nominal pain found to have pancreatitis General surgery evaluation. Ultrasound was negative so he was placed on clear liquid and advance slowly and lipase normalized and patient was deemed stable for discharge. Labs and Pending Lab Test: Laboratory Tests 05/26/21 15:53: Glucometer 147H 05/26/21 20:09: Glucometer 112H 05/27/21 05:05: Glucometer 96 05/27/21 05:42: White Blood Count 7.1, Red Blood Count 4.15L, Hemoglobin 11.4L, Hematocrit 37L, Mean Corpuscular Volume 89, Mean Corpuscular Hemoglobin 28, Mean Corpuscular Hemoglobin Concent 31L, Red Cell Distribution Width 13.9, Platelet Count 192, Mean Platelet Volume 9.8, Immature Granulocyte % (Auto) 0, Neutrophils (%) (Auto) 58, Lymphocytes (%) (Auto) 24, Monocytes (%) (Auto) 14H, Eosinophils (%) (Auto) 3, Basophils (%) (Auto) 1, Neutrophils # (Auto) 4.2, Lymphocytes # (Auto) 1.7, Monocytes # (Auto) 1.0, Eosinophils # (Auto) 0.2, Basophils # (Auto) 0.0, Immature Granulocyte # (Auto) 0.0, Sodium Level 136, Potassium Level 4.1, Chloride Level 102, Carbon Dioxide Level 24, Anion Gap 10, Blood Urea Nitrogen 13, Creatinine 0.78, Estimat Glomerular Filtration Rate 87, BUN/Creatinine Ratio 17, Glucose Level 101, Calcium Level 8.8, Corrected Calcium 9.0, Total Bilirubin 0.5, Aspartate Amino Transf (AST/SGOT) 123H, Alanine Aminotransferase (ALT/SGPT) 71H, Alkaline Phosphatase 55, Total Protein 7.2, Albumin 3.8, Lipase 46 05/27/21 10:14: Glucometer 127H Home Meds Active Reported [Radhika Restful Legs] 2-3 Ea PO Q6H PRN [place] Saline (Sodium Chloride) 50 Ml [place] 1-2 Sprays NSEACH BID PRN Calmoseptine Ointment (Menthol/Lanolin/Calamine/Znox) 71 Gm Oint 1 Applic TP BID PRN Vitamin D3 (Cholecalciferol (Vitamin D3)) 50 Mcg Tablet 50 Mcg PO DAILY Pregabalin 100 Mg Capsule 100 Mg PO TID Donepezil HCl 5 Mg Tablet 5 Mg PO HS Hydrochlorothiazide 25 Mg Tablet 25 Mg PO DAILY Benzonatate 100 Mg Capsule 100 Mg PO HS PRN Guaifenesin Dm Syrup (Guaifenesin/Dextromethorphan) 5 Ml Syrup 20 Ml PO Q4H PRN Ondansetron HCl 4 Mg Tablet 4 Mg PO HS PRN Albuterol Sulfate 2.5 Mg/3 Ml Vial.neb 2.5 Mg NEB Q6H Loratadine 10 Mg Tablet 10 Mg PO DAILY Nystatin 15 Gm Cream..g. 1 Applic TOP BID Triamcinolone Acetonide 0.1% Cream (Triamcinolone Acet) 15 Gm Cr 1 Applic TOP BID PRN Myrbetriq (Mirabegron) 25 Mg Tab.er.24h 25 Mg PO 1700 Metformin HCl 500 Mg Tablet 500 Mg PO Q12H Rivastigmine 1 Each Patch.td24 4.6 Mg TD DAILY Glipizide 5 Mg Tablet 5 Mg PO BID Lubricant Eye Drops (Glycerin/Propylene Glycol) 15 Ml Drops 1 Drop OU QID PRN Fluticasone Propionate 16 Gm [place].susp 1 [place] NSEACH DAILY Amlodipine Besylate 10 Mg Tablet 10 Mg PO DAILY Clonazepam 1 Mg Tablet 1 Mg PO TID Doxazosin Mesylate 4 Mg Tablet 4 Mg PO 1700 Viibryd (Vilazodone Hydrochloride) 10 Mg Tablet 10 Mg PO HS Assessment/Pt Instructions PCP in 1 week Discharge Planning: <30 minutes discharge planning Discharge Instructions Discharge Diet: Low Residue Activity as Tolerated: Yes Discharge Physical Examination Vital Signs Vital Signs Date Time Temp Pulse Resp B/P (MAP) Pulse Ox O2 Delivery O2 Flow Rate FiO2 05/27/21 11:53 36.4 79 20 115/68 (84) 93 Nasal Cannula 3.00 General Appearance: No Apparent Distress, WD/WN, Chronically ill Allergies: Coded Allergies: Serotonin 5HT-3 Antagonists (Unverified Allergy, Unknown, 11/25/17) Tricyclic Compounds (Unverified Allergy, Unknown, 11/25/17) codeine (Verified Allergy, Unknown, 04/07/06) hydrocodone (Unverified Allergy, Unknown, 10/16/15) aspirin (Unverified Adverse Reaction, Mild, STOMACH IRRITATION, 11/25/17) Discharge Summary Date of Admission May 25, 2021 at 05:50 Date of Discharge Discharge Date: May 27, 2021 Admission Diagnosis Assessment: Acute pancreatitis Abdominal pain Dementia Emotional problems Hypertension Diabetes Hyperlipidemia Former smoker Advanced age Plan: Bowel rest Ultrasound Dr. Morris consult Discharge Diagnosis Assessment: Acute pancreatitis Abdominal pain Dementia Emotional problems Hypertension Diabetes Hyperlipidemia Former smoker Advanced age Plan: Bowel rest Ultrasound Dr. Morris consult 05/26/2021: Advance diet Supportive care (1) Pancreatitis Status: Acute Qualifiers: Qualified Codes: K85.90 - Acute pancreatitis without necrosis or infection, unspecified Clinical Quality Measures AMI/AHF: ASA po Prior to arrival: MARSHAL Mendes DO May 27, 2021 12:29
[2021-05-27] MEDS ORDERED: RT-ALBUTEROL SULF 2.5 MG/3 ML PRE-MIX VIAL INH SCH (15:00)
== END 2021-05-27 13:30 | disposition home or self-care (01) ==
LOC: EDUNIT# 01:45 → ER 01:46 → 4TH 05:50
PROVIDERS: ADMIT Internal Medicine; ATTEND Internal Medicine
DX: K85.90 Acute pancreatitis without necrosis or infection, unspecified (principal); F03.90 Unspecified dementia, unspecified severity, without behavioral disturbance, psychotic disturbance, mood disturbance, and anxiety; I10 Essential (primary) hypertension; E11.9 Type 2 diabetes mellitus without complications; E78.5 Hyperlipidemia, unspecified; F34.9 Persistent mood [affective] disorder, unspecified; J44.9 Chronic obstructive pulmonary disease, unspecified; K44.9 Diaphragmatic hernia without obstruction or gangrene; K57.90 Diverticulosis of intestine, part unspecified, without perforation or abscess without bleeding; N20.0 Calculus of kidney; Z85.828 Personal history of other malignant neoplasm of skin; Z79.899 Other long term (current) drug therapy; Z79.84 Long term (current) use of oral hypoglycemic drugs; Z99.81 Dependence on supplemental oxygen; Z86.010 Personal history of colon polyps; Z87.891 Personal history of nicotine dependence
CPT/HCPCS: 36415; 71045; 74177; 76705; 80053; 81000; 82947; 83690; 83735; 83874; 83880; 84484; 85025; 85610; 85730; 87636; 93005; 93041; 94010; 94640; 94760

== ENCOUNTER 2021-08-09 00:03 | Emergency (ER) | payer MEDICARE, MEDICAID ==
[~2021-08-09 00:03] MED LIST changes: +MENT71OI TP; +SODI50SP NSEACH; +[UNRECOGNIZED DRUG - OTHER] PO
--- NOTE | 2021-08-09 00:27 | ED Chest Pain ---
General Chief Complaint: General Problems/Pain Stated Complaint: COUGH,BACK PAIN Nursing Triage Note: PT TO ER BY [facility] FROM HOME WITH MULTIPLE COMPLAINTS. PT STATES HIS BACK IS HURTING AFTER A FALL LAST WEEK, HE HAD A COUPLE EPISODES OF VOMITTING TODAY AND SORENESS AROUND HIS CHEST AND RIBS Source: patient Exam Limitations: no limitations History of Present Illness Date Seen by Provider: August 09, 2021 Time Seen by Provider: 00:11 Initial Comments Patient is an 85-year-old male who presents to the emergency department today with a chief complaint of back pain, chest pain, sore throat, a little bit of nausea. He states that he vomited today. He is got a history of Parkinson's and COPD, prostate cancer, chronic debility. He is very frail and weak. He states that he had a fall in his bathtub about a week ago and injured his low back and across his upper back just under the shoulder blades he did not have any loss of consciousness, but he states he did hit the back of his head. He did not see his primary care physician after the fall. Denies any extremity complaints. He states that he has been sore and hurting all week and today he got a sore throat as well as he felt like worse pain in his chest and back and ribs. He did take some Tylenol today. He rates his pain a "a 10". Nothing makes the pain any better or any worse. He has no history of coronary artery disease. He is diabetic. No fevers, chills, productive cough. No problems with urination however he states that he does leak. No diarrhea. All other review of systems reviewed and negative except as stated. Timing/Duration: 1/2 hour ("worse") Severity/Quality: severe ("10") Location: central Radiation: back (between shoulder blades) Activities at Onset: none Prior CP/Workup: no prior chest pain, no prior cardiac workup ASA po FARMWORKER: No NTG SL FARMWORKER: No Associated Symptoms: nausea/vomiting, shortness of breath (chronic - sore throat as well) Allergies and Home Medications Allergies Coded Allergies: Serotonin 5HT-3 Antagonists (Unverified Allergy, Unknown, 11/25/17) Tricyclic Compounds (Unverified Allergy, Unknown, 11/25/17) codeine (Verified Allergy, Unknown, 04/07/06) hydrocodone (Unverified Allergy, Unknown, 10/16/15) aspirin (Unverified Adverse Reaction, Mild, STOMACH IRRITATION, 11/25/17) Patient Home Medication List Home Medication List Reviewed: Yes Albuterol Sulfate (Albuterol Sulfate) 2.5 Mg/3 Ml Vial.neb, 2.5 MG NEB Q6H, (Reported) Entered as Reported by: HILARY APPIAH on 04/23/19 1223 Amlodipine Besylate (Amlodipine Besylate) 10 Mg Tablet, 10 MG PO DAILY, (Reported) Entered as Reported by: HILARY APPIAH on 12/27/15 0851 Benzonatate (Benzonatate) 100 Mg Capsule, 100 MG PO HS PRN for COUGH, (Reported) Entered as Reported by: EDISON PRESTON on 04/06/21 1126 Cholecalciferol (Vitamin D3) (Vitamin D3) 50 Mcg Tablet, 50 MCG PO DAILY, (Reported) Entered as Reported by: EDISON PRESTON on 04/06/21 1126 Clonazepam (Clonazepam) 1 Mg Tablet, 1 MG PO TID, (Reported) Entered as Reported by: HILARY APPIAH on 12/27/15 0851 Donepezil HCl (Donepezil HCl) 5 Mg Tablet, 5 MG PO HS, (Reported) Entered as Reported by: EDISON PRESTON on 04/06/21 1126 Doxazosin Mesylate (Doxazosin Mesylate) 4 Mg Tablet, 4 MG PO 1700, (Reported) Entered as Reported by: CARIN PRINGLE on 05/27/15 1136 Fluticasone Propionate (Fluticasone Propionate) 16 Gm Frohna.susp, 1 SPRAY NSEACH DAILY, (Reported) Entered as Reported by: HILARY APPIAH on 12/06/16 1119 Glipizide (Glipizide) 5 Mg Tablet, 5 MG PO BID, (Reported) Entered as Reported by: JACINTA DE LA O on 01/26/17 1414 Glycerin/Propylene Glycol (Lubricant Eye Drops) 15 Ml Drops, 1 DROP OU QID PRN for DRY EYES, (Reported) Entered as Reported by: HILARY APPIAH on 12/06/16 1126 Guaifenesin/Dextromethorphan (Guaifenesin Dm Syrup) 5 Ml Syrup, 20 ML PO Q4H PRN for COUGH, (Reported) Entered as Reported by: HILARY APPIAH on 04/23/19 1238 Hydrochlorothiazide (Hydrochlorothiazide) 25 Mg Tablet, 25 MG PO DAILY, (Re ported) Entered as Reported by: EDISON PRESTON on 04/06/21 1126 Loratadine (Loratadine) 10 Mg Tablet, 10 MG PO DAILY, (Reported) Entered as Reported by: HILARY APPIAH on 04/23/19 1009 Menthol/Lanolin/Calamine/Znox (Calmoseptine Ointment) 71 Gm Oint, 1 APPLIC TP BID PRN for SORES, (Reported) Entered as Reported by: EDISON PRESTON on 05/25/21 1136 Metformin HCl (Metformin HCl) 500 Mg Tablet, 500 MG PO Q12H, (Reported) Entered as Reported by: KRYSTIN NEWMAN on 01/26/17 180 Mirabegron (Myrbetriq) 25 Mg Tab.er.24h, 25 MG PO 1700, (Reported) Entered as Reported by: KRYSTIN NEWMAN on 01/26/171801 Nystatin (Nystatin) 15 Gm Cream..g., 1 APPLIC TOP BID, (Reported) Entered as Reported by: HILARY APPIAH on 11/25/17 1108 Ondansetron HCl (Ondansetron HCl) 4 Mg Tablet, 4 MG PO HS PRN for NAUSEA/VOMITING-1ST LINE, (Reported) Entered as Reported by: HILARY APPIAH on 04/23/19 1223 Pregabalin (Pregabalin) 100 Mg Capsule, 100 MG PO TID, (Reported) Entered as Reported by: EDISON PRESTON on 04/06/21 1126 Rivastigmine (Rivastigmine) 1 Each Patch.td24, 4.6 MG TD DAILY, (Reported) Entered as Reported by: KRYSTIN NEWMAN on 01/26/171801 Sodium Chloride ([place] Saline) 50 Ml Frohna, 1-2 SPRAYS NSEACH BID PRN for DRY NOSE, (Reported) Entered as Reported by: EDISON PRESTON on 05/25/21 113 Triamcinolone Acet (Triamcinolone Acetonide 0.1% Cream) 15 Gm Cr, 1 APPLIC TOP BID PRN for RASH, (Reported) Entered as Reported by: KRYSTIN NEWMAN on 01/26/17 1802 Vilazodone Hydrochloride (Viibryd) 10 Mg Tablet, 10 MG PO HS, (Reported) Entered as Reported by: CARIN PRINGLE on 05/27/15 1136 [Radhika Restful Legs] , 2-3 EA PO Q6H PRN for LEG CRAMPS, (Reported) Entered as Reported by: EDISON PRESTON on 05/25/21 1136 Review of Systems Review of Systems Constitutional: see HPI EENTM: No Symptoms Reported Respiratory: Shortness of Air Cardiovascular: Chest Pain Gastrointestinal: Nausea Genitourinary: No Symptoms Reported Musculoskeletal: back pain, other (rib pain) Skin: no symptoms reported Psychiatric/Neurological: No Symptoms Reported All Other Systems Reviewed Negative Unless Noted: Yes Past Lmfvebn-Tfydxg-Wboojz Hx Patient Social History Tobacco Use?: No Substance use?: No Alcohol Use?: No Pt feels they are or have been: No Immunizations Up To Date Tetanus Booster (TDap): Unknown PED Vaccines UTD: No First/Initial COVID19 Vaccinat: NOV 2020 Second COVID19 Vaccination Jack: DEC 2020 Third COVID19 Vaccination Date: NOV 2020 Seasonal Allergies Seasonal Allergies: Yes Past Medical History Surgery/Hospitalization HX: HTN, DM, Surgeries: Yes (RIGHT EYELID BASAL CELL CANCER; HERNIA REPAIR X 4, PER PT ) Abdominal, Adenoidectomy, Eye Surgery, Prostatectomy, Tonsillectomy Respiratory: Yes (O2 DEPENDENT AT 3L/NC CONTINUOUSLY;MULTIPLE EPISODES OF PNEUMONIA) Pneumonia, Chronic Bronchitis, COPD, Emphysema Currently Using CPAP: No Currently Using BIPAP: No Cardiac: Yes Chronic Edema/Swelling, High Cholesterol, Hypertension Neurological: Yes Dementia Reproductive Disorders: No Sexually Transmitted Disease: No HIV/AIDS: No Genitourinary: Yes (PROSTATE CANCER > 10 YEARS AGO) Prostate Problems, Kidney Stones Gastrointestinal: Yes (S/P HERNIA REPAIR X 4, PER PT) Abdominal Hernia, Gastroesophageal Reflux, Chronic Constipation, Polyps, Hiatal Hernia Musculoskeletal: Yes (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) Degenerate Disk Disease, Osteoporosis, Arthritis, Chronic Back Pain Endocrine: Yes Diabetes, Non-Insulin dep HEENT: Yes (R EYELID BASAL CELL CANCER;SINUSITIS; NOSEBLEEDS) Cataract Loss of Vision: Right Hearing Impairment: Denies Cancer: Yes (PROSTATE CANCER, BASAL CELL CANCER OF RIGHT EYE) Prostate, Skin Did You Recieve Any Treatments: Yes What Type of Treatment Did You: Surgical Intervention Psychosocial: Yes Anxiety, Depression Integumentary: Yes (SKIN CANCER; PRESSURE ULCERS OF BUTTOCKS/SACRUM) Blood Disorders: No Adverse Reaction/Blood Tranf: No Family Medical History FH: breast cancer G8 SISTER Myocardial infarction 19 FATHER No Pertinent Family Hx CHRONIC GENERALIZED WEAKNESS, FREQUENT FALLS VERY POOR/VERY MINIMAL MOBILITY--HAS POWER CHAIR AND WALKER, WHICH HE HAS REFUSED TO USE AT HOME CHRONIC BILATERAL KNEE PAIN RIGHT EYELID BASAL 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 6.0oz. [id number]; 33.56 BMI Method:Estimated General Appearance: No Apparent Distress, WD/WN HEENT: Other (right eye - previous surgery - opacified cornea, chronic tearing; discharge noted at medial eye.) Neck: Normal Inspection Respiratory: Lungs Clear, Normal Breath Sounds, No Accessory Muscle Use, No Respiratory Distress Cardiovascular: Regular Rate, Rhythm, Normal Peripheral Pulses Gastrointestinal: Non Tender, Soft Extremity: Normal Inspection, Normal Range of Motion, Non Tender, Pedal Edema, Other (tenderness to palpation over posterior ribs (5-9 or so) bilaterally; no crepitance. no skin wounds/bruising) Neurologic/Psychiatric: Alert, Oriented x3, No Motor/Sensory Deficits, Normal Mood/Affect, rheostat assembler II-XII Norm as Tested Skin: Normal Color, Warm/Dry, Rash (erythema and some excoriation left latter-day (chronic?)), Other (superficial ulcers noted to the inferior portion of his panus on the left - no surrounding erythema/cellulitis. wounds cleansed and covered with triple antibiotic ointment and telfa/gauze) Progress/Results/Core Measures Results/Orders Lab Results Laboratory Tests Test 08/09/21 00:10 08/09/21 00:12 Range/Units White Blood Count 7.1 4.3-11.0 10^3/uL Red Blood Count 4.20 L 4.30-5.52 10^6/uL Hemoglobin 11.6 L 13.3-17.7 g/dL Hematocrit 37 L 40-54 % Mean Corpuscular Volume 87 80-99 fL Mean Corpuscular Hemoglobin 28 25-34 pg Mean Corpuscular Hemoglobin Concent 32 32-36 g/dL Red Cell Distribution Width 14.2 10.0-14.5 % Platelet Count 211 130-400 10^3/uL Mean Platelet Volume 9.8 9.0-12.2 fL Immature Granulocyte % (Auto) 1 % Neutrophils (%) (Auto) 55 42-75 % Lymphocytes (%) (Auto) 25 12-44 % Monocytes (%) (Auto) 16 H 0-12 % Eosinophils (%) (Auto) 3 0-10 % Basophils (%) (Auto) 1 0-10 % Neutrophils # (Auto) 3.9 1.8-7.8 10^3/uL Lymphocytes # (Auto) 1.8 1.0-4.0 10^3/uL Monocytes # (Auto) 1.2 H 0.0-1.0 10^3/uL Eosinophils # (Auto) 0.2 0.0-0.3 10^3/uL Basophils # (Auto) 0.0 0.0-0.1 10^3/uL Immature Granulocyte # (Auto) 0.0 0.0-0.1 10^3/uL Prothrombin Time 14.2 12.2-14.7 SEC INR Comment 1.1 0.8-1.4 Activated Partial Thromboplast Time 32 24-35 SEC Sodium Level 140 135-145 MMOL/L Potassium Level 4.4 3.6-5.0 MMOL/L Chloride Level 101 98-107 MMOL/L Carbon Dioxide Level 26 21-32 MMOL/L Anion Gap 13 5-14 MMOL/L Blood Urea Nitrogen 19 H 7-18 MG/DL Creatinine 1.00 0.60-1.30 MG/DL Estimat Glomerular Filtration Rate 74 BUN/Creatinine Ratio 19 Glucose Level 137 H 70-105 MG/DL Calcium Level 9.5 8.5-10.1 MG/DL Corrected Calcium 9.3 8.5-10.1 MG/DL Magnesium Level 2.0 1.6-2.4 MG/DL Total Bilirubin 0.3 0.1-1.0 MG/DL Aspartate Amino Transf (AST/SGOT) 97 H 5-34 U/L Alanine Aminotransferase (ALT/SGPT) 72 H 0-55 U/L Alkaline Phosphatase 71 40-136 U/L Myoglobin 57.7 10.0-92.0 NG/ML Troponin I < 0.028 <0.028 NG/ML Total Protein 7.8 6.4-8.2 GM/DL Albumin 4.2 3.2-4.5 GM/DL Lipase 46 8-78 U/L Glucometer 130 H 70-110 MG/DL My Orders Orders - THOMAS LUNDBERG MD Ekg Tracing (08/09/21 00:17) Cbc With Automated Diff (08/09/21:) Magnesium (08/09/21) Chest 1 View, Ap/Pa Only (08/09/21) Comprehensive Metabolic Panel (08/09/21) Myoglobin Serum (08/09/21:) Protime With Inr (08/09/21) Partial Thromboplastin Time (08/09/21:) O2 (08/09/21) Monitor-Rhythm Ecg Trace Only (08/09/21) Lipid Panel (08/10/21 06:00) Ed Iv/Invasive Line Start (08/09/21:) Troponin I Jessa (08/09/21 00:26) Lipase (08/09/21 00:37) Fentanyl Inj (Sublimaze Injection) (08/09/21 00:45) Medications Given in ED Current Medications Medications Dose Ordered Sig/Bernice Route Start Time Stop Time Status Last Admin Dose Admin Fentanyl Citrate 25 mcg ONCE ONCE IVP 08/09/21 00:45 08/09/21 00:46 DC 08/09/21 01:06 25 MCG Vital Signs/I&O 08/09/21 08/09/21 00:09 00:29 Temp 37.0 Pulse 87 Resp 18 B/P (MAP) 157/75 (102) Pulse Ox 93 93 O2 Delivery Nasal Cannula Nasal Cannula O2 Flow Rate 3.00 3.00 Blood Pressure Mean: 102 Progress Progress Note : Time: 02:18 Progress Note Patient has been resting comfortably throughout his ED stay. The 25 mcg of fentanyl that I gave him seem to completely alleviate any symptoms of pain that he was having. He no longer even has a sore throat. No rib pain. He states he might be a little bit nauseous. Vital signs are stable. EKG was unremarkable, troponin was negative. Chest x-ray shows no infiltrates or effusions or bony abnormalities that I can see. Reviewed patient's medical record, last stress test 2018 - chemical stress - no abnormalities. Anticipate discharge to home via EMS as the patient is not ambulatory and is wheelchair-bound. I have talked to him about taking Tylenol for his aches and pains and following up with his primary care physician. He states he has an appointment later today actually. He verbalized understanding of discharge instructions. All questions are sought and answered Initial ECG Impression Date: August 09, 2021 Initial ECG Impression Time: 00:22 Initial ECG Rate: 84 Initial ECG Rhythm: Normal Sinus Initial ECG Intervals TX 217 QRS 90 QTc 400 Diagnostic Imaging Diagonstic Imaging: Xray Plain Films/CT/US/NM/MRI: chest Comments no infiltrate or effusion; no bony injuries appreciated - interpreted by me Departure Impression Primary Impression: Musculoskeletal pain Additional Impression: Multiple wounds of skin Disposition: 01 HOME, SELF-CARE Condition: Improved Departure-Patient Inst. Decision time for Depature: 02:25 Referrals: QUETA BOOKER (PCP) Primary Care Physician [facility] (Family) Primary Care Physician Patient Instructions: Acute Pain, Adult Add. Discharge Instructions: drink plenty of fluids to stay well hydrated. extra strength tylenol - 2 tablets - every 6 hours as needed for pain. if you have worsening pain in your ribs or back, please come back to the emergency department for re-evaluation. please follow up with your family doctor. use triple antibiotic ointment and a dry gauze dressing to the wounds on your skin on your lower left abdomen. try and keep this area clean and covered. keep your doctors appointment for today. Copy Copies To 1: SALMA RAMIREZ KATHRYN M MD August 09, 2021 00:27
[2021-08-09 00:34] LABS: BASOPHILS % (AUTO) 1 % (0-10); EOSINOPHILS # (AUTO) 0.2 10^3/uL (0.0-0.3); EOSINOPHILS % (AUTO) 3 % (0-10); HEMATOCRIT 37 % (40-54); HEMOGLOBIN 11.6 g/dL (13.3-17.7); LYMPHOCYTES # (AUTO) 1.8 10^3/uL (1.0-4.0); LYMPHOCYTES % (AUTO) 25 % (12-44); MEAN CORPUSCULAR HEMOGLOBIN 28 pg (25-34); MEAN CORPUSCULAR HGB CONC 32 g/dL (32-36); MEAN CORPUSCULAR VOLUME 87 fL (80-99); MEAN PLATELET VOLUME 9.8 fL (9.0-12.2); MONOCYTES # (AUTO) 1.2 10^3/uL (0.0-1.0); MONOCYTES % (AUTO) 16 % (0-12); NEUTROPHILS # (AUTO) 3.9 10^3/uL (1.8-7.8); NEUTROPHILS % (AUTO) 55 % (42-75); PLATELET COUNT 211 10^3/uL (130-400); WHITE BLOOD COUNT 7.1 10^3/uL (4.3-11.0)
[2021-08-09 00:38] LABS: ALBUMIN 4.2 GM/DL (3.2-4.5); POTASSIUM 4.4 MMOL/L (3.6-5.0)
[2021-08-09 00:39] LABS: CALCIUM 9.5 MG/DL (8.5-10.1)
[2021-08-09 00:40] LABS: TOTAL PROTEIN 7.8 GM/DL (6.4-8.2)
[2021-08-09 00:41] LABS: INR 1.1 (0.8-1.4); PROTHROMBIN TIME PATIENT 14.2 SEC (12.2-14.7)
[2021-08-09 00:42] LABS: BILIRUBIN,TOTAL 0.3 MG/DL (0.1-1.0)
[2021-08-09] MEDS ORDERED: fentaNYL INJ 100 MCG/2 ML AMP IVP ONE (00:45)
[2021-08-09 02:42] VITALS: BP 132/69
--- NOTE | 2021-08-09 07:26 | Diagnostic Imaging Report ---
INDICATION: Chest pain Frontal chest obtained at 1244 a.m. and compared to 05/25/21. Heart and mediastinal silhouette are normal in appearance. There is some minimal linear atelectatic change in the left base. Lungs are otherwise clear. There is no pneumothorax or gross pleural fluid. IMPRESSION: Minimal linear atelectatic change or scarring in the left base. No consolidation or pleural fluid. Dictated by: Dictated on workstation # [id number]
== END 2021-08-09 02:40 | disposition home or self-care (01) ==
LOC: EDUNIT# 00:03 → ER 00:05
DX: E11.622 Type 2 diabetes mellitus with other skin ulcer (principal); L98.492 Non-pressure chronic ulcer of skin of other sites with fat layer exposed; M79.10 Myalgia, unspecified site; L53.9 Erythematous condition, unspecified; R60.0 Localized edema; G20 Parkinson's disease; J43.9 Emphysema, unspecified; Z85.46 Personal history of malignant neoplasm of prostate; Z85.828 Personal history of other malignant neoplasm of skin; Z90.79 Acquired absence of other genital organ(s); Z87.01 Personal history of pneumonia (recurrent); Z99.81 Dependence on supplemental oxygen
CPT/HCPCS: 36415; 71045; 80053; 82947; 83690; 83735; 83874; 84484; 85025; 85610; 85730; 93005; 93041

== ENCOUNTER 2021-08-25 11:24 | Emergency (ER) | payer MEDICARE, MEDICAID ==
[~2021-08-25] VITALS: Ht 182 cm; Wt 104.0 kg
[2021-08-25] MEDS ORDERED: methylPREDNISolone 125 MG (Solu-MEDROL) VIAL IVP ONE (11:45)
[2021-08-25 11:48] LABS: BASOPHILS % (AUTO) 0 % (0-10); EOSINOPHILS # (AUTO) 0.2 10^3/uL (0.0-0.3); EOSINOPHILS % (AUTO) 3 % (0-10); HEMATOCRIT 33 % (40-54); HEMOGLOBIN 10.2 g/dL (13.3-17.7); LYMPHOCYTES # (AUTO) 1.9 10^3/uL (1.0-4.0); LYMPHOCYTES % (AUTO) 27 % (12-44); MEAN CORPUSCULAR HEMOGLOBIN 28 pg (25-34); MEAN CORPUSCULAR HGB CONC 31 g/dL (32-36); MEAN CORPUSCULAR VOLUME 88 fL (80-99); MEAN PLATELET VOLUME 9.7 fL (9.0-12.2); MONOCYTES % (AUTO) 14 % (0-12); NEUTROPHILS % (AUTO) 55 % (42-75); PLATELET COUNT 180 10^3/uL (130-400); WHITE BLOOD COUNT 7.2 10^3/uL (4.3-11.0)
--- NOTE | 2021-08-25 11:48 | ED Cough/URI ---
General Chief Complaint: Cough/Cold/Flu Symptoms Stated Complaint: CP Nursing Triage Note: ARRIVED VIA EMS FROM HOME WITH A COUGH AND SORE THROAT X2 DAYS. STATES HIS CHEST HURTS FROM COUGHING. ALSO THOUGHT HIS BLOOD SUGAR WAS LOW. EMS REPORS BLOOD SUGAR OF 109. PT IS A/O. Source: patient Exam Limitations: no limitations History of Present Illness Date Seen by Provider: August 25, 2021 Time Seen by Provider: 11:46 Initial Comments Patient is a 85-year-old male with a history of COPD, diabetes, Parkinson's who presents ED with chest pain, cough and sore throat. Symptoms started about 1 week ago for a wet productive cough with shortness of breath. Chest pain occurs with the cough. Reports leg swelling bilateral which appears to be chronic. No history of CHF, coronary artery disease. Stress test in 2018 did not show any significant myocardial ischemia or infarction. Denies of any recent travels or surgeries. Reports sore throat secondary to cough. Up-to-date his COVID vaccines. Patient does wear 3 L of oxygen at home. Has been using his breathing treatment and did do a breathing treatment right before arrival. Noted his blood sugar was low and was 109 for EMS after eating breakfast. Currently on metformin for his diabetes. Denies of any fever, vomiting, diarrhea, abdominal pain, headache, dizziness. Allergies and Home Medications Allergies Coded Allergies: Serotonin 5HT-3 Antagonists (Unverified Allergy, Unknown, 11/25/17) Tricyclic Compounds (Unverified Allergy, Unknown, 11/25/17) codeine (Verified Allergy, Unknown, 04/07/06) hydrocodone (Unverified Allergy, Unknown, 10/16/15) aspirin (Unverified Adverse Reaction, Mild, STOMACH IRRITATION, 11/25/17) Patient Home Medication List Home Medication List Reviewed: Yes Albuterol Sulfate (Albuterol Sulfate) 2.5 Mg/3 Ml Vial.neb, 2.5 MG NEB Q6H, (Reported) Entered as Reported by: HILARY APPIAH on 04/23/19 1223 Amlodipine Besylate (Amlodipine Besylate) 10 Mg Tablet, 10 MG PO DAILY, (Reported) Entered as Reported by: HILARY APPIAH on 12/27/15 0851 Benzonatate (Benzonatate) 100 Mg Capsule, 100 MG PO HS PRN for COUGH, (Reported) Entered as Reported by: EDISON PRESTON on 04/06/21 1126 Cholecalciferol (Vitamin D3) (Vitamin D3) 50 Mcg Tablet, 50 MCG PO DAILY, (Re ported) Entered as Reported by: EDISON PRESTON on 04/06/21 1126 Clonazepam (Clonazepam) 1 Mg Tablet, 1 MG PO TID, (Reported) Entered as Reported by: HILARY APPIAH on 12/27/15 0851 Donepezil HCl (Donepezil HCl) 5 Mg Tablet, 5 MG PO HS, (Reported) Entered as Reported by: EDISON PRESTON on 04/06/21 1126 Doxazosin Mesylate (Doxazosin Mesylate) 4 Mg Tablet, 4 MG PO 1700, (Reported) Entered as Reported by: CARIN PRINGLE on 05/27/15 1136 Doxycycline Monohydrate (Doxycycline Monohydrate) 100 Mg Capsule, 100 MG PO BID Prescribed by: LUKE DUKES on 08/25/21 1238 Fluticasone Propionate (Fluticasone Propionate) 16 Gm [place].susp, 1 SPRAY NSEACH DAILY, (Reported) Entered as Reported by: HILARY APPIAH on 12/06/16 1119 Glipizide (Glipizide) 5 Mg Tablet, 5 MG PO BID, (Reported) Entered as Reported by: JACINTA DE LA O on 01/26/17 1414 Glycerin/Propylene Glycol (Lubricant Eye Drops) 15 Ml Drops, 1 DROP OU QID PRN for DRY EYES, (Reported) Entered as Reported by: HILARY APPIAH on 12/06/16 1126 Guaifenesin/Dextromethorphan (Guaifenesin Dm Syrup) 5 Ml Syrup, 20 ML PO Q4H PRN for COUGH, (Reported) Entered as Reported by: HILARY APPIAH on 04/23/19 1238 Hydrochlorothiazide (Hydrochlorothiazide) 25 Mg Tablet, 25 MG PO DAILY, (Reported) Entered as Reported by: EDISON PRESTON on 04/06/21 1126 Loratadine (Loratadine) 10 Mg Tablet, 10 MG PO DAILY, (Reported) Entered as Reported by: HILARY APPIAH on 04/23/19 1009 Menthol/Lanolin/Calamine/Znox (Calmoseptine Ointment) 71 Gm Oint, 1 APPLIC TP BID PRN for SORES, (Reported) Entered as Reported by: EDISON PRESTON on 05/25/21 113 Metformin HCl (Metformin HCl) 500 Mg Tablet, 500 MG PO Q12H, (Reported) Entered as Reported by: KRYSTIN NEWMAN on 01/26/171801 Mirabegron (Myrbetriq) 25 Mg Tab.er.24h, 25 MG PO 1700, (Reported) Entered as Reported by: KRYSTIN NEWMAN on 01/26/171801 Nystatin (Nystatin) 15 Gm Cream..g., 1 APPLIC TOP BID, (Reported) Entered as Reported by: HILARY APPIAH on 11/25/17 1108 Ondansetron HCl (Ondansetron HCl) 4 Mg Tablet, 4 MG PO HS PRN for NAUSEA/VOMITING-1ST LINE, (Reported) Entered as Reported by: HILARY APPIAH on 04/23/19 1223 Prednisone (Prednisone) 50 Mg Tab, 50 MG PO DAILY Prescribed by: LUKE DUKES on 08/25/21 1236 Pregabalin (Pregabalin) 100 Mg Capsule, 100 MG PO TID, (Reported) Entered as Reported by: EDISON PRESTON on 04/06/21 112 Rivastigmine (Rivastigmine) 1 Each Patch.td24, 4.6 MG TD DAILY, (Reported) Entered as Reported by: KRYSTIN NEWMAN on 01/26/171801 Sodium Chloride ([place] Saline) 50 Ml [place], 1-2 SPRAYS NSEACH BID PRN for DRY NOSE, (Reported) Entered as Reported by: EDISON PRESTON on 05/25/21 113 Triamcinolone Acet (Triamcinolone Acetonide 0.1% Cream) 15 Gm Cr, 1 APPLIC TOP BID PRN for RASH, (Reported) Entered as Reported by: KRYSTIN NEWMAN on 01/26/171801 Vilazodone Hydrochloride (Viibryd) 10 Mg Tablet, 10 MG PO HS, (Reported) Entered as Reported by: CARIN PRINGLE on 05/27/15 1136 [Radhika Restful Legs] , 2-3 EA PO Q6H PRN for LEG CRAMPS, (Reported) Entered as Reported by: EDISON PRESTON on 05/25/21 1136 Discontinued Medications Azithromycin (Azithromycin) 250 Mg Tablet, 250 MG PO UD Prescribed by: LUKE DUKES on 08/25/21 1236 Review of Systems Review of Systems Constitutional: No chills, No diaphoresis; malaise, weakness EENTM: No blurred vision, No double vision, No mouth pain, No mouth swelling Respiratory: cough, short of breath Cardiovascular: chest pain, edema; No Hx of Intervention, No palpitations Gastrointestinal: No abdominal pain, No diarrhea, No nausea, No vomiting Genitourinary: No decreased output, No discharge Musculoskeletal: No back pain, No joint pain Skin: No change in color, No change in hair/nails Psychiatric/Neurological: Denies Anxiety, Denies Depressed All Other Systems Reviewed Negative Unless Noted: Yes Past Vaquppg-Nyfwak-Mwrqtx Hx Immunizations Up To Date Tetanus Booster (TDap): Unknown PED Vaccines UTD: No First/Initial COVID19 Vaccinat: NOV 2020 Second COVID19 Vaccination Jack: DEC 2020 Third COVID19 Vaccination Date: NOV 2020 Seasonal Allergies Seasonal Allergies: Yes Past Medical History Surgery/Hospitalization HX: HTN, DM, Surgeries: Yes (RIGHT EYELID BASAL CELL CANCER; HERNIA REPAIR X 4, PER PT ) Abdominal, Adenoidectomy, Eye Surgery, Prostatectomy, Tonsillectomy Respiratory: Yes (O2 DEPENDENT AT 3L/NC CONTINUOUSLY;MULTIPLE EPISODES OF PNEUMONIA) Pneumonia, Chronic Bronchitis, COPD, Emphysema Currently Using CPAP: No Currently Using BIPAP: No Cardiac: Yes Chronic Edema/Swelling, High Cholesterol, Hypertension Neurological: Yes Dementia Reproductive Disorders: No Sexually Transmitted Disease: No HIV/AIDS: No Genitourinary: Yes (PROSTATE CANCER > 10 YEARS AGO) Prostate Problems, Kidney Stones Gastrointestinal: Yes (S/P HERNIA REPAIR X 4, PER PT) Abdominal Hernia, Gastroesophageal Reflux, Chronic Constipation, Polyps, Hiatal Hernia Musculoskeletal: Yes (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) Degenerate Disk Disease, Osteoporosis, Arthritis, Chronic Back Pain Endocrine: Yes Diabetes, Non-Insulin dep HEENT: Yes (R EYELID BASAL CELL CANCER;SINUSITIS; NOSEBLEEDS) Cataract Loss of Vision: Right Hearing Impairment: Denies Cancer: Yes (PROSTATE CANCER, BASAL CELL CANCER OF RIGHT EYE) Prostate, Skin Did You Recieve Any Treatments: Yes What Type of Treatment Did You: Surgical Intervention Psychosocial: Yes Anxiety, Depression Integumentary: Yes (SKIN CANCER; PRESSURE ULCERS OF BUTTOCKS/SACRUM) Blood Disorders: No Adverse Reaction/Blood Tranf: No Family Medical History FH: breast cancer G8 SISTER Myocardial infarction 19 FATHER No Pertinent Family Hx CHRONIC GENERALIZED WEAKNESS, F[place]QU[place]S VERY POOR/VERY MINIMAL MOBILITY--HAS POWER CHAIR AND WALKER, WHICH HE HAS REFUSED TO USE AT HOME CHRONIC BILATERAL KNEE PAIN RIGHT EYELID BASAL 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 6.0oz. 113.303144pm; 31.00 BMI Method:Estimated General Appearance: WD/WN, no apparent distress Eyes: Bilateral Eye PERRL, Bilateral Eye EOMI HEENT: PERRL/EOMI, normal ENT inspection, TMs normal, pharynx normal Neck: non-tender, full range of motion, supple, normal inspection Respiratory: chest non-tender, lungs clear, normal breath sounds, no respiratory distress, no accessory muscle use Cardiovascular: regular rate, rhythm, no edema, no gallop Gastrointestinal: normal bowel sounds, non tender, soft, no organomegaly Extremities: normal range of motion, non-tender, normal inspection Neurologic/Psychiatric: 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 II-XII nml as tested, no motor/sensory deficits, alert, normal mood/affect, oriented x 3 Skin: normal color, warm/dry Progress/Results/Core Measures Suspected Sepsis SIRS Temperature: Pulse: 80 Respiratory Rate: 16 Laboratory Tests 08/25/21 11:27: White Blood Count 7.2 Blood Pressure 142 /75 Mean: 97 Laboratory Tests 08/25/21 11:27: Creatinine 0.86, Platelet Count 180, Total Bilirubin 0.3 Results/Orders Lab Results Laboratory Tests Test 08/25/21 11:27 08/25/21 11:50 Range/Units White Blood Count 7.2 4.3-11.0 10^3/uL Red Blood Count 3.71 L 4.30-5.52 10^6/uL Hemoglobin 10.2 L 13.3-17.7 g/dL Hematocrit 33 L 40-54 % Mean Corpuscular Volume 88 80-99 fL Mean Corpuscular Hemoglobin 28 25-34 pg Mean Corpuscular Hemoglobin Concent 31 L 32-36 g/dL Red Cell Distribution Width 13.5 10.0-14.5 % Platelet Count 180 130-400 10^3/uL Mean Platelet Volume 9.7 9.0-12.2 fL Immature Granulocyte % (Auto) 1 % Neutrophils (%) (Auto) 55 42-75 % Lymphocytes (%) (Auto) 27 12-44 % Monocytes (%) (Auto) 14 H 0-12 % Eosinophils (%) (Auto) 3 0-10 % Basophils (%) (Auto) 0 0-10 % Neutrophils # (Auto) 4.0 1.8-7.8 10^3/uL Lymphocytes # (Auto) 1.9 1.0-4.0 10^3/uL Monocytes # (Auto) 1.0 0.0-1.0 10^3/uL Eosinophils # (Auto) 0.2 0.0-0.3 10^3/uL Basophils # (Auto) 0.0 0.0-0.1 10^3/uL Immature Granulocyte # (Auto) 0.1 0.0-0.1 10^3/uL Sodium Level 138 135-145 MMOL/L Potassium Level 3.9 3.6-5.0 MMOL/L Chloride Level 97 L 98-107 MMOL/L Carbon Dioxide Level 27 21-32 MMOL/L Anion Gap 14 5-14 MMOL/L Blood Urea Nitrogen 14 7-18 MG/DL Creatinine 0.86 0.60-1.30 MG/DL Estimat Glomerular Filtration Rate 85 BUN/Creatinine Ratio 16 Glucose Level 90 70-105 MG/DL Calcium Level 9.3 8.5-10.1 MG/DL Corrected Calcium 9.3 8.5-10.1 MG/DL Magnesium Level 1.9 1.6-2.4 MG/DL Total Bilirubin 0.3 0.1-1.0 MG/DL Aspartate Amino Transf (AST/SGOT) 62 H 5-34 U/L Alanine Aminotransferase (ALT/SGPT) 53 0-55 U/L Alkaline Phosphatase 75 40-136 U/L Troponin I < 0.028 <0.028 NG/ML C-Reactive Protein High Sensitivity 1.13 H 0.00-0.50 MG/DL B-Type Natriuretic Peptide 11.9 <100.0 PG/ML Total Protein 7.7 6.4-8.2 GM/DL Albumin 4.0 3.2-4.5 GM/DL Procalcitonin 0.13 H <0.10 NG/ML Influenza Type A (RT-PCR) Not Detected Not Detecte Influenza Type B (RT-PCR) Not Detected Not Detecte SARS-CoV-2 RNA (RT-PCR) Not Detected Not Detecte My Orders Orders - ISIDRO JEREZ PA Cbc With Automated Diff (08/25/21 11:42) Comprehensive Metabolic Panel (08/25/21 11:42) Bnp Jessa (08/25/21 11:42) Troponin I Jessa (08/25/21 11:42) Procalcitonin (Pct) (08/25/21 11:42) Hs C Reactive Protein (08/25/21 11:42) Chest 1 View, Ap/Pa Only (08/25/21 11:42) Magnesium (08/25/21 11:42) Covid 19 Inhouse Test (08/25/21 11:42) Influenza A And B By Pcr (08/25/21 11:42) Methylprednisolone Sod Succ (Solu-Medrol (08/25/21 11:45) Ekg Tracing (08/25/21 11:42) Medications Given in ED Current Medications Medications Dose Ordered Sig/Bernice Route Start Time Stop Time Status Last Admin Dose Admin Methylprednisolone Sodium Succinate 125 mg ONCE ONCE IVP 08/25/21 11:45 08/25/21 11:46 DC 08/25/21 12:02 125 MG Vital Signs/I&O 08/25/21 11:32 Temp 35.6 Pulse 80 Resp 16 B/P (MAP) 142/75 (97) Pulse Ox 93 O2 Delivery Room Air Capillary Refill : Less Than 3 Seconds Blood Pressure Mean: 97 ECG Comment Sinus rhythm with first-degree AV block, left axis deviation, low QRS voltage in precordial leads, 79 bpm, QRS duration 94 MS, QTc 419 MS Departure Communication (PCP) Patient with a history of COPD and type 2 diabetes. Presents ED with cough for the past week with shortness of breath and sore throat. Patient does wear 3 L oxygen daily without any increased oxygen at home. Has been using his breathing treatment at home with some improvment. Denies worsening breathing with ambulation or while laying down. Refused breathing treatment on arrival. No evidence of respiratory distress. No retractions or notable wheezing on exam. Patient was afebrile with stable vital signs. Normal white blood count. Slightly anemic 10.2 with history of anemia.. Normal kidney function, liver function. Patient has no current upper abdominal pain or chest pain at this time. Cardiac work-up unremarkable. He reports chronic lower leg swelling. Denies of any increased swelling. COVID, influenza was negative. Chest x-ray did show cardiomegaly with mild pulmonary vascular congestion, atelectasis bibasilar cannot rule out infiltrate, possible small pleural effusion with blunting of the costophrenic angle. Due to the negative BNP and without any increasing leg swelling, or shortness of breath while lying down unlikely patient is having a CHF. May have some form of CHF however patient has a normal BNP, no breathing difficulties with laying down or increased leg swelling. He states his leg swelling is better today. Concern for more COPD exacerbation versus bronchitis with the cough. He was given dose of Solu-Medrol. Blood sugar 90. Patient was feeling much better here. Once again refused any breathing treatments. Will discharge with very short burst steroids and doxycycline prophylactically due to his underlying COPD. Recommend follow-up with his PCP in 2 to 3 days for reevaluation. If increased work of breathing, increased leg swelling to return back to ED for further evaluation. Patient was not given any Lasix at this time. Has not been on Lasix in the past. No known history of CHF. Outpatient follow-up for further evaluation. Impression Primary Impression: Upper respiratory infection Disposition: HOME, SELF-CARE Condition: Stable Departure-Patient Inst. Decision time for Depature: 12:35 Referrals: QUETA BOOKER (PCP) Primary Care Physician [facility] (Family) Primary Care Physician Patient Instructions: Cough, Adult (DC) Scripts Doxycycline Monohydrate (Doxycycline Monohydrate) 100 Mg Capsule 100 MG PO BID for 7 Days, #14 CAP Prov: ISIDRO JEREZ 08/25/21 Prednisone (Prednisone) 50 Mg Tab 50 MG PO DAILY for 4 Days, #4 TAB Prov: ISIDRO JEREZ 08/25/21 ISIDRO JEREZ August 25, 2021 11:48
[2021-08-25 11:50] LABS: CHLORIDE 97 MMOL/L (98-107); POTASSIUM 3.9 MMOL/L (3.6-5.0); SODIUM 138 MMOL/L (135-145)
[2021-08-25 11:51] LABS: CALCIUM 9.3 MG/DL (8.5-10.1)
[2021-08-25 11:53] LABS: GLUCOSE 90 MG/DL (70-105); TOTAL PROTEIN 7.7 GM/DL (6.4-8.2)
[2021-08-25 11:54] LABS: BILIRUBIN,TOTAL 0.3 MG/DL (0.1-1.0); CARBON DIOXIDE 27 MMOL/L (21-32)
[2021-08-25 11:56] LABS: ALKALINE PHOSPHATASE 75 U/L (40-136); CREATININE SERUM 0.86 MG/DL (0.60-1.30); GFR ESTIMATED 85
[2021-08-25 11:57] LABS: BUN/CREATININE RATIO 16
[2021-08-25 11:59] LABS: ALANINE AMINOTRANSFERASE 53 U/L (0-55); MAGNESIUM 1.9 MG/DL (1.6-2.4)
[2021-08-25] MEDS ORDERED: AZIT250T12 PO (12:36)
[2021-08-25] MEDS ORDERED: PRD50T PO (12:36)
[2021-08-25] MEDS ORDERED: DOXY-311 PO (12:38)
--- NOTE | 2021-08-25 12:47 | Diagnostic Imaging Report ---
CLINICAL INDICATIONS: Patient with cough. EXAM: Portable chest x-ray upright view. COMPARISON: Chest x-ray dated 08/09/2021. FINDINGS: Again seen elevation right hemidiaphragm. Left lung base discoid atelectasis has resolved. Low lung volumes are noted with slight worsening of the lung moreno. There is suspected mild bibasilar atelectasis, but superimposed infiltrates cannot be completely excluded given a slightly amorphous airspace opacities. Left costophrenic angle is not well seen and left pleural effusion cannot be completely excluded. There is no pneumothorax. There is cardiomegaly with mild pulmonary vascular congestion. IMPRESSION: 1: There is cardiomegaly with mild pulmonary vascular congestion which can be seen with congestive heart failure. 2: There is mild bibasilar atelectasis, but superimposed infiltrates cannot be completely excluded. 3: Left costophrenic angle is blunted and small left pleural effusion cannot be completely excluded. Dictated by: Dictated on workstation # [id number]
[2021-08-25 14:09] VITALS: BP 142/75
== END 2021-08-25 14:09 | disposition home or self-care (01) ==
LOC: EDUNIT# 11:24 → ER 11:24
DX: J06.9 Acute upper respiratory infection, unspecified (principal); J43.9 Emphysema, unspecified; I51.7 Cardiomegaly; J98.11 Atelectasis; I44.0 Atrioventricular block, first degree; E11.9 Type 2 diabetes mellitus without complications; Z87.01 Personal history of pneumonia (recurrent); Z79.84 Long term (current) use of oral hypoglycemic drugs; Z99.81 Dependence on supplemental oxygen; Z20.822 Contact with and (suspected) exposure to COVID-19
CPT/HCPCS: 36415; 71045; 80053; 83735; 83880; 84145; 84484; 85025; 86141; 87636

== ENCOUNTER 2021-11-05 20:58 | Emergency (ER) | payer MEDICARE, MEDICAID ==
[~2021-11-05] VITALS: Ht 182 cm; Wt 104.0 kg
[2021-11-05 21:14] LABS: BASOPHILS % (AUTO) 0 % (0-10); EOSINOPHILS # (AUTO) 0.2 10^3/uL (0.0-0.3); EOSINOPHILS % (AUTO) 2 % (0-10); HEMATOCRIT 37 % (40-54); HEMOGLOBIN 11.8 g/dL (13.3-17.7); LYMPHOCYTES % (AUTO) 23 % (12-44); MEAN CORPUSCULAR HEMOGLOBIN 27 pg (25-34); MEAN CORPUSCULAR HGB CONC 32 g/dL (32-36); MEAN CORPUSCULAR VOLUME 86 fL (80-99); MEAN PLATELET VOLUME 9.6 fL (9.0-12.2); MONOCYTES # (AUTO) 1.2 10^3/uL (0.0-1.0); MONOCYTES % (AUTO) 14 % (0-12); NEUTROPHILS # (AUTO) 5.1 10^3/uL (1.8-7.8); NEUTROPHILS % (AUTO) 60 % (42-75); PLATELET COUNT 209 10^3/uL (130-400); WHITE BLOOD COUNT 8.5 10^3/uL (4.3-11.0)
--- NOTE | 2021-11-05 21:16 | ED Respiratory ---
General Chief Complaint: Respiratory Problems Stated Complaint: COUGH,SOA Nursing Triage Note: BROUGHT IN BY [facility] WITH INCREASED SOA AFTER COUGHING. (DOMINAG TOLEDO) History of Present Illness Date Seen by Provider: Nov 05, 2021 Time Seen by Provider: 20:56 Initial Comments 85 year old male presents via EMS for SOA, productive cough, and weakness that started earlier this afternoon. He used an albuterol treatment at home and was given a duoneb by EMS. History of COPD. Has received COVID vaccine and 2 boosters. Denies any recent pneumonia or any changes in his medicine. Moderate swelling to lower legs, patient reports not applying his compression socks tonight. Patient wears O2 per NC at 3 L at home, has not required additional O2. Timing/Duration: this afternoon Severity: moderate Associated Symptoms: cough; No fever/chills, No nasal congestion; shortness of breath (DOMINGA TOLDEO) Allergies and Home Medications Allergies Coded Allergies: Serotonin 5HT-3 Antagonists (Unverified Allergy, Unknown, 11/25/17) Tricyclic Compounds (Unverified Allergy, Unknown, 11/25/17) codeine (Verified Allergy, Unknown, 04/07/06) hydrocodone (Unverified Allergy, Unknown, 10/16/15) aspirin (Unverified Adverse Reaction, Mild, STOMACH IRRITATION, 11/25/17) Patient Home Medication List Home Medication List Reviewed: Yes (DOMINGA TOLEDO) Albuterol Sulfate (Albuterol Sulfate) 2.5 Mg/3 Ml Vial.neb, 2.5 MG NEB Q6H, (Reported) Entered as Reported by: HILARY APPIAH on 04/23/19 1223 Amlodipine Besylate (Amlodipine Besylate) 10 Mg Tablet, 10 MG PO DAILY, (Reported) Entered as Reported by: HILARY APPIAH on 12/27/15 0851 Benzonatate (Benzonatate) 100 Mg Capsule, 100 MG PO HS PRN for COUGH, (Reported) Entered as Reported by: EDISON PRESTON on 04/06/21 1126 Cholecalciferol (Vitamin D3) (Vitamin D3) 50 Mcg Tablet, 50 MCG PO DAILY, (Reported) Entered as Reported by: EDISON PRESTON on 04/06/21 1126 Clonazepam (Clonazepam) 1 Mg Tablet, 1 MG PO TID, (Reported) Entered as Reported by: HILARY APPIAH on 12/27/15 0851 Donepezil HCl (Donepezil HCl) 5 Mg Tablet, 5 MG PO HS, (Reported) Entered as Reported by: EDISON PRESTON on 04/06/21 1126 Doxazosin Mesylate (Doxazosin Mesylate) 4 Mg Tablet, 4 MG PO 1700, (Reported) Entered as Reported by: CARIN PRINGLE on 05/27/15 1136 Doxycycline Hyclate (Doxycycline Hyclate) 100 Mg Tablet, 100 MG PO BID Prescribed by: DOMINGA TOLEDO on 11/05/21 2228 Doxycycline Monohydrate (Doxycycline Monohydrate) 100 Mg Capsule, 100 MG PO BID Prescribed by: LUKE DUKES on 08/25/21 1238 Fluticasone Propionate (Fluticasone Propionate) 16 Gm [place].susp, 1 SPRAY NSEACH DAILY, (Reported) Entered as Reported by: HILARY APPIAH on 12/06/16 1119 Glipizide (Glipizide) 5 Mg Tablet, 5 MG PO BID, (Reported) Entered as Reported by: JACINTA DE LA O on 01/26/17 1414 Glycerin/Propylene Glycol (Lubricant Eye Drops) 15 Ml Drops, 1 DROP OU QID PRN for DRY EYES, (Reported) Entered as Reported by: HILARY APPIAH on 12/06/16 1126 Guaifenesin/Dextromethorphan (Guaifenesin Dm Syrup) 5 Ml Syrup, 20 ML PO Q4H PRN for COUGH, (Reported) Entered as Reported by: HILARY APPIAH on 04/23/19 1238 Hydrochlorothiazide (Hydrochlorothiazide) 25 Mg Tablet, 25 MG PO DAILY, (Reported) Entered as Reported by: EDISON PRESTON on 04/06/21 1126 Loratadine (Loratadine) 10 Mg Tablet, 10 MG PO DAILY, (Reported) Entered as Reported by: HILARY APPIAH on 04/23/19 1009 Menthol/Lanolin/Calamine/Znox (Calmoseptine Ointment) 71 Gm Oint, 1 APPLIC TP BID PRN for SORES, (Reported) Entered as Reported by: EDISON PRESTON on 05/25/21 1136 Metformin HCl (Metformin HCl) 500 Mg Tablet, 500 MG PO Q12H, (Reported) Entered as Reported by: KRYSTIN NEWMAN on 01/26/171801 Mirabegron (Myrbetriq) 25 Mg Tab.er.24h, 25 MG PO 1700, (Reported) Entered as Reported by: KRYSTIN NEWMAN on 01/26/171801 Nystatin (Nystatin) 15 Gm Cream..g., 1 APPLIC TOP BID, (Reported) Entered as Reported by: HILARY APPIAH on 11/25/17 1108 Ondansetron HCl (Ondansetron HCl) 4 Mg Tablet, 4 MG PO HS PRN for NAUSEA/VOMITING-1ST LINE, (Reported) Entered as Reported by: HILARY APPIAH on 04/23/19 1223 Prednisone (Prednisone) 50 Mg Tab, 50 MG PO DAILY Prescribed by: LUKE DUKES on 08/25/21 1236 Prednisone (Prednisone) 20 Mg Tab, 40 MG PO DAILY Prescribed by: DOMINGA TOLEDO on 11/05/21 2228 Pregabalin (Pregabalin) 100 Mg Capsule, 100 MG PO TID, (Reported) Entered as Reported by: EDISON PRESTON on 04/06/21 1126 Rivastigmine (Rivastigmine) 1 Each Patch.td24, 4.6 MG TD DAILY, (Reported) Entered as Reported by: KRYSTIN NEWMAN on 01/26/171801 Sodium Chloride ([place] Saline) 50 Ml [place], 1-2 SPRAYS NSEACH BID PRN for DRY NOSE, (Reported) Entered as Reported by: EDISON PRESTON on 05/25/21 1136 Triamcinolone Acet (Triamcinolone Acetonide 0.1% Cream) 15 Gm Cr, 1 APPLIC TOP BID PRN for RASH, (Reported) Entered as Reported by: KRYSTIN NEWMAN on 01/26/171801 Vilazodone Hydrochloride (Viibryd) 10 Mg Tablet, 10 MG PO HS, (Reported) Entered as Reported by: CARIN PRINGLE on 05/27/15 1136 [Radhika Restful Legs] , 2-3 EA PO Q6H PRN for LEG CRAMPS, (Reported) Entered as Reported by: EDISON PRESTON on 05/25/21 1136 Review of Systems Review of Systems Constitutional: no symptoms reported, see HPI EENTM: see HPI, no symptoms reported Respiratory: see HPI, cough, dyspnea on exertion, phlegm, short of breath Cardiovascular: no symptoms reported, see HPI Gastrointestinal: no symptoms reported, see HPI Skin: no symptoms reported, see HPI (DOMINGA TOLEDO) All Other Systems Reviewed Negative Unless Noted: Yes (DOMINGA TOLEDO) Past [facility] Hx Patient Social History Tobacco Use?: No Substance use?: No Alcohol Use?: No Pt feels they are or have been: No (DOMINGA TOLEDO) Immunizations Up To Date Tetanus Booster (TDap): Unknown PED Vaccines UTD: No First/Initial COVID19 Vaccinat: NOV 2020 Second COVID19 Vaccination Jack: DEC 2020 Third COVID19 Vaccination Date: NOV 2020 (DOMINGA TOLEDO) Seasonal Allergies Seasonal Allergies: Yes (DOMINGA TOLEDO) Past Medical History Surgery/Hospitalization HX: HTN, niddm, COPD, PARKINSONS, HIGH CHOLESTEROL, GERD, CONSTIPATION, DEMENTIA, CH. BACK PAIN, ANXIETY, DEPRESSION, SKIN/PROSTATE CA. PROSTATECTOMY, T/A Surgeries: Yes (RIGHT EYELID BASAL CELL CANCER; HERNIA REPAIR X 4, PER PT ) Abdominal, Adenoidectomy, Eye Surgery, Prostatectomy, Tonsillectomy Respiratory: Yes (O2 DEPENDENT AT 3L/NC CONTINUOUSLY;MULTIPLE EPISODES OF PNEUMONIA) Pneumonia, Chronic Bronchitis, COPD, Emphysema Currently Using CPAP: No Currently Using BIPAP: No Cardiac: Yes Chronic Edema/Swelling, High Cholesterol, Hypertension Neurological: Yes Dementia Reproductive Disorders: No Sexually Transmitted Disease: No HIV/AIDS: No Genitourinary: Yes (PROSTATE CANCER > 10 YEARS AGO) Prostate Problems, Kidney Stones Gastrointestinal: Yes (S/P HERNIA REPAIR X 4, PER PT) Abdominal Hernia, Gastroesophageal Reflux, Chronic Constipation, Polyps, Hiatal Hernia Musculoskeletal: Yes (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) Degenerate Disk Disease, Osteoporosis, Arthritis, Chronic Back Pain Endocrine: Yes Diabetes, Non-Insulin dep HEENT: Yes (R EYELID BASAL CELL CANCER;SINUSITIS; NOSEBLEEDS) Cataract Loss of Vision: Right Hearing Impairment: Denies Cancer: Yes (PROSTATE CANCER, BASAL CELL CANCER OF RIGHT EYE) Prostate, Skin Did You Recieve Any Treatments: Yes What Type of Treatment Did You: Surgical Intervention Psychosocial: Yes Anxiety, Depression Integumentary: Yes (SKIN CANCER; PRESSURE ULCERS OF BUTTOCKS/SACRUM) Blood Disorders: No Adverse Reaction/Blood Tranf: No (DOMINGA TOLEDO) Family Medical History Reviewed Nursing Family Hx (DOMINGA TOLEDO) FH: breast cancer G8 SISTER Myocardial infarction 19 FATHER No Pertinent Family Hx CHRONIC GENERALIZED WEAKNESS, FREQUENT FALLS VERY POOR/VERY MINIMAL MOBILITY--HAS POWER CHAIR AND WALKER, WHICH HE HAS REFUSED TO USE AT HOME CHRONIC BILATERAL KNEE PAIN RIGHT EYELID BASAL 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 6.0oz. [id number]; 31.00 BMI Method:Estimated General Appearance: WD/WN, mild distress HEENT: PERRL/EOMI, normal ENT inspection, TMs normal, pharynx normal Neck: non-tender, limited range of motion; No tender lateral, No tender midline; other (Weakness to neck, wears a folded sock (ant neck) with string around neck to support his neck) Respiratory: chest non-tender, no respiratory distress, decreased breath sounds Cardiovascular: normal peripheral pulses, regular rate, rhythm; No no edema Gastrointestinal: normal bowel sounds, non tender, soft, distended Extremities: pedal edema (2+) Neurologic/Psychiatric: no motor/sensory deficits, alert, normal mood/affect, oriented x 3 Skin: pallor (DOMINGA TOLEDO) Progress/Results/Core Measures Suspected Sepsis SIRS Temperature: Pulse: 94 Respiratory Rate: 14 Laboratory Tests 11/05/21 21:06: White Blood Count 8.5 Blood Pressure 130 /104 Mean: 113 Laboratory Tests 11/05/21 21:06: Creatinine 0.95, INR Comment 1.0, Platelet Count 209, Total Bilirubin 0.3 (DOMINGA TOLEDO) Results/Orders Lab Results Laboratory Tests Test 11/05/21 21:06 Range/Units White Blood Count 8.5 4.3-11.0 10^3/uL Red Blood Count 4.36 4.30-5.52 10^6/uL Hemoglobin 11.8 L 13.3-17.7 g/dL Hematocrit 37 L 40-54 % Mean Corpuscular Volume 86 80-99 fL Mean Corpuscular Hemoglobin 27 25-34 pg Mean Corpuscular Hemoglobin Concent 32 32-36 g/dL Red Cell Distribution Width 13.9 10.0-14.5 % Platelet Count 209 130-400 10^3/uL Mean Platelet Volume 9.6 9.0-12.2 fL Immature Granulocyte % (Auto) 1 % Neutrophils (%) (Auto) 60 42-75 % Lymphocytes (%) (Auto) 23 12-44 % Monocytes (%) (Auto) 14 H 0-12 % Eosinophils (%) (Auto) 2 0-10 % Basophils (%) (Auto) 0 0-10 % Neutrophils # (Auto) 5.1 1.8-7.8 10^3/uL Lymphocytes # (Auto) 2.0 1.0-4.0 10^3/uL Monocytes # (Auto) 1.2 H 0.0-1.0 10^3/uL Eosinophils # (Auto) 0.2 0.0-0.3 10^3/uL Basophils # (Auto) 0.0 0.0-0.1 10^3/uL Immature Granulocyte # (Auto) 0.0 0.0-0.1 10^3/uL Prothrombin Time 13.8 12.2-14.7 SEC INR Comment 1.0 0.8-1.4 Activated Partial Thromboplast Time 33 24-35 SEC Sodium Level 135 135-145 MMOL/L Potassium Level 4.2 3.6-5.0 MMOL/L Chloride Level 95 L 98-107 MMOL/L Carbon Dioxide Level 23 21-32 MMOL/L Anion Gap 17 H 5-14 MMOL/L Blood Urea Nitrogen 14 7-18 MG/DL Creatinine 0.95 0.60-1.30 MG/DL Estimat Glomerular Filtration Rate 78 BUN/Creatinine Ratio 15 Glucose Level 175 H 70-105 MG/DL Calcium Level 9.9 8.5-10.1 MG/DL Corrected Calcium 9.7 8.5-10.1 MG/DL Total Bilirubin 0.3 0.1-1.0 MG/DL Aspartate Amino Transf (AST/SGOT) 99 H 5-34 U/L Alanine Aminotransferase (ALT/SGPT) 63 H 0-55 U/L Alkaline Phosphatase 77 40-136 U/L Troponin I < 0.028 <0.028 NG/ML B-Type Natriuretic Peptide 11.5 <100.0 PG/ML Total Protein 7.8 6.4-8.2 GM/DL Albumin 4.3 3.2-4.5 GM/DL Influenza Type A (RT-PCR) Not Detected Not Detecte Influenza Type B (RT-PCR) Not Detected Not Detecte SARS-CoV-2 RNA (RT-PCR) Not Detected Not Detecte (CEASAR LUCAS MD) Vital Signs/I&O 11/05/21 11/05/21 11/05/21 20:59 20:59 22:30 Temp 36.8 36.3 Pulse 94 79 Resp 14 16 B/P (MAP) 130/104 (113) 142/76 Pulse Ox 95 94 O2 Delivery Nasal Cannula Nasal Cannula Nasal Cannula O2 Flow Rate 3.00 3.00 3.00 (CEASAR LUCAS MD) Vital Signs/I&O Capillary Refill : Less Than 3 Seconds (DOMINGA TOLEDO) Blood Pressure Mean: 113 Progress Note : Time: 20:56 Progress Note Patient seen and evaluated, will obtain labs and chest x-ray. 2130 patient having no respiratory distress, resting with eyes closed. Awakens easily. Denies any new complaints. 2215 chest x-ray and labs complete with no acute findings. Discussed with patient. Discharge planning and return precautions reviewed. Called his and daughter to arrange a ride. (DOMINGA TOLEDO) Diagnostic Imaging Diagonstic Imaging: Xray Plain Films/CT/US/NM/MRI: chest Comments [place], [place] NAME: ISABELA ESPINOZA MED REC#: [id number] PT STATUS: REG ER : 1935 PHYSICIAN: DOMINGA TOLEDO ADMIT DATE: 11/05/21/ER Draft Date of Exam:11/05/21 CHEST 1 VIEW, AP/PA ONLY INDICATION: Cough, congestion, COPD COMPARISON: 08/25/2021 FINDINGS: Single frontal view of the chest demonstrates mild cardiomegaly. Pulmonary vasculature is within normal limits. There is suggestion of hiatal hernia. Bibasilar scarring and/or atelectasis is also present. There is no large effusion or pneumothorax. Osseous structures show no acute abnormalities. IMPRESSION: 1. Mild cardiomegaly, but no evidence of failure or focal infiltrate. 2. Moderate hiatal hernia. Dictated on workstation # [id number] Dict: 11/05/212220 Trans: 11/05/212223 [facility] [phone] Interpreted by: MARITA HAM MD Electronically signed by: (DOMINGA TOLEDO) Departure Impression Primary Impression: COPD (chronic obstructive pulmonary disease) Qualified Codes: J44.9 - Chronic obstructive pulmonary disease, unspecified Disposition: 01 HOME, SELF-CARE Condition: Stable Departure-Patient Inst. Decision time for Depature: 22:05 (DOMINGA TOLEDO) [place] [facility] [place] [facility] [place] Primary Care Physician QUETA BOOKER (Family) Primary Care Physician Patient Instructions: Exacerbation of COPD (DC) Add. Discharge Instructions: Take medication as prescribed. Use your support hose to help with the swelling. Follow-up with your primary care provider symptoms are not improving or worsen. Continue to use your breathing treatments every 4 hours as needed. Return to the emergency department for new, urgent healthcare needs. All discharge instructions reviewed with patient and/or family. Voiced understanding. Scripts Prednisone (Prednisone) 20 Mg Tab 40 MG PO DAILY, #8 TAB 0 Refills Prov: DOMINGA TOLEDO 11/05/21 Doxycycline Hyclate (Doxycycline Hyclate) 100 Mg Tablet 100 MG PO BID, #20 TAB 0 Refills Prov: DOMINGA TOLEDO 11/05/21 ATTENDING PHYSICIAN NOTE: I was physically present as attending physician in the emergency department during the care of this patient, but I was not directly involved in the decision making or delivery of care for this patient. (CEASAR LUCAS MD) DOMINGA TOLEDO Nov 05, 2021 21:16 CEASAR LUCAS MD Nov 06, 2021 05:10
[2021-11-05 21:32] LABS: PROTHROMBIN TIME PATIENT 13.8 SEC (12.2-14.7)
[2021-11-05 21:44] LABS: ALBUMIN 4.3 GM/DL (3.2-4.5); BILIRUBIN,TOTAL 0.3 MG/DL (0.1-1.0); CALCIUM 9.9 MG/DL (8.5-10.1); CREATININE SERUM 0.95 MG/DL (0.60-1.30); POTASSIUM 4.2 MMOL/L (3.6-5.0); TOTAL PROTEIN 7.8 GM/DL (6.4-8.2)
[2021-11-05] MEDS ORDERED: methylPREDNISolone 125 MG (Solu-MEDROL) VIAL IVP STA (22:18)
--- NOTE | 2021-11-05 22:24 | Diagnostic Imaging Report ---
INDICATION: Cough, congestion, COPD COMPARISON: 08/25/2021 FINDINGS: Single frontal view of the chest demonstrates mild cardiomegaly. Pulmonary vasculature is within normal limits. There is suggestion of hiatal hernia. Bibasilar scarring and/or atelectasis is also present. There is no large effusion or pneumothorax. Osseous structures show no acute abnormalities. IMPRESSION: 1. Mild cardiomegaly, but no evidence of failure or focal infiltrate. 2. Moderate hiatal hernia. Dictated by: Dictated on workstation # [id number]
[2021-11-05] MEDS ORDERED: DOXY100T2 PO (22:28)
[2021-11-05] MEDS ORDERED: PRD20T PO (22:28)
[2021-11-05 22:30] VITALS: BP 142/76
== END 2021-11-05 22:33 | disposition home or self-care (01) ==
LOC: ER 20:58
DX: J43.9 Emphysema, unspecified (principal); Z20.822 Contact with and (suspected) exposure to COVID-19
CPT/HCPCS: 36415; 71045; 80053; 83880; 84484; 85025; 85610; 85730; 87636

== ENCOUNTER 2021-11-19 14:14 | Observation (INO) | payer MEDICARE, MEDICAID ==
[~2021-11-19] VITALS: Ht 182.9 cm; Wt 110.4 kg
[~2021-11-19 14:14] MED LIST changes: +DOXY100T2 PO
[2021-11-19] MEDS: NITROGLYCERIN 0.4 MG SL TABS BTL 25'S SL PRN ×2 (14:33→14:39)
[2021-11-19 14:34] LABS: BASOPHILS % (AUTO) 0 % (0-10); EOSINOPHILS # (AUTO) 0.1 10^3/uL (0.0-0.3); EOSINOPHILS % (AUTO) 1 % (0-10); HEMATOCRIT 40 % (40-54); HEMOGLOBIN 12.3 g/dL (13.3-17.7); LYMPHOCYTES # (AUTO) 2.2 10^3/uL (1.0-4.0); LYMPHOCYTES % (AUTO) 25 % (12-44); MEAN CORPUSCULAR HEMOGLOBIN 27 pg (25-34); MEAN CORPUSCULAR HGB CONC 31 g/dL (32-36); MEAN CORPUSCULAR VOLUME 88 fL (80-99); MEAN PLATELET VOLUME 9.9 fL (9.0-12.2); MONOCYTES % (AUTO) 12 % (0-12); NEUTROPHILS # (AUTO) 5.5 10^3/uL (1.8-7.8); NEUTROPHILS % (AUTO) 61 % (42-75); PLATELET COUNT 223 10^3/uL (130-400)
[2021-11-19 14:38] LABS: ALBUMIN 4.3 GM/DL (3.2-4.5); POTASSIUM 4.2 MMOL/L (3.6-5.0)
[2021-11-19 14:40] LABS: CALCIUM 9.8 MG/DL (8.5-10.1)
[2021-11-19 14:41] LABS: INR 1.1 (0.8-1.4); PROTHROMBIN TIME PATIENT 14.5 SEC (12.2-14.7)
--- NOTE | 2021-11-19 14:42 | ED Cough/URI ---
General Chief Complaint: Respiratory Problems Stated Complaint: SHORTNESS OF BREATH AND COUGH Source: patient Exam Limitations: no limitations History of Present Illness Date Seen by Provider: Nov 19, 2021 Time Seen by Provider: 14:27 Initial Comments Patient presents ER by EMS from home with chief complaint that he has been having some chest pain since this morning. He rates it now as a 10 out of 10 substernal nonradiating. He also feels more short of air. He turned his own oxygen up from 3 L to 4 L. EMS noted his oxygen saturation to be in the mid 90s on his 4 L by nasal cannula. He has a history of COPD. He has a history of hypertension, hyperlipidemia and diabetes but denies a previous history of erika nary artery disease or stents. Echocardiogram with Dr. Tania Patton, 2 years ago showing an EF of 55 to 65% with grade 1 diastolic dysfunction. Allergies and Home Medications Allergies Coded Allergies: Serotonin 5HT-3 Antagonists (Unverified Allergy, Unknown, 11/25/17) Tricyclic Compounds (Unverified Allergy, Unknown, 11/25/17) codeine (Verified Allergy, Unknown, 04/07/06) hydrocodone (Unverified Allergy, Unknown, 10/16/15) aspirin (Unverified Adverse Reaction, Mild, STOMACH IRRITATION, 11/25/17) Patient Home Medication List Home Medication List Reviewed: Yes Albuterol Sulfate (Albuterol Sulfate) 2.5 Mg/3 Ml Vial.neb, 2.5 MG NEB Q6H, (Reported) Entered as Reported by: HILARY APPIAH on 04/23/19 1223 Amlodipine Besylate (Amlodipine Besylate) 10 Mg Tablet, 10 MG PO DAILY, (Reported) Entered as Reported by: HILARY APPIAH on 12/27/15 0851 Benzonatate (Benzonatate) 100 Mg Capsule, 100 MG PO HS PRN for COUGH, (Reported) Entered as Reported by: EDISON PRESTON on 04/06/21 1126 Cholecalciferol (Vitamin D3) (Vitamin D3) 50 Mcg Tablet, 50 MCG PO DAILY, (Reported) Entered as Reported by: EDISON PRESTON on 04/06/21 1126 Clonazepam (Clonazepam) 1 Mg Tablet, 1 MG PO TID, (Reported) Entered as Reported by: HILARY APPIAH on 12/27/15 0851 Donepezil HCl (Donepezil HCl) 5 Mg Tablet, 5 MG PO HS, (Reported) Entered as Reported by: EDISON PRESTON on 04/06/21 1126 Doxazosin Mesylate (Doxazosin Mesylate) 4 Mg Tablet, 4 MG PO 1700, (Reported) Entered as Reported by: CARIN PRINGLE on 05/27/15 1136 Doxycycline Hyclate (Doxycycline Hyclate) 100 Mg Tablet, 100 MG PO BID Prescribed by: DOMINGA TOLEDO on 11/05/21 2228 Doxycycline Monohydrate (Doxycycline Monohydrate) 100 Mg Capsule, 100 MG PO BID Prescribed by: LUKE DUKES on 08/25/21 1238 Fluticasone Propionate (Fluticasone Propionate) 16 Gm Slayden.susp, 1 SPRAY NSEACH DAILY, (Reported) Entered as Reported by: HILARY APPIAH on 12/06/16 1119 Glipizide (Glipizide) 5 Mg Tablet, 5 MG PO BID, (Reported) Entered as Reported by: JACINTA DE LA O on 01/26/17 1414 Glycerin/Propylene Glycol (Lubricant Eye Drops) 15 Ml Drops, 1 DROP OU QID PRN for DRY EYES, (Reported) Entered as Reported by: HILARY APPIAH on 12/06/16 1126 Guaifenesin/Dextromethorphan (Guaifenesin Dm Syrup) 5 Ml Syrup, 20 ML PO Q4H PRN for COUGH, (Reported) Entered as Reported by: HILARY APPIAH on 04/23/19 1238 Hydrochlorothiazide (Hydrochlorothiazide) 25 Mg Tablet, 25 MG PO DAILY, (Reported) Entered as Reported by: EDISON PRESTON on 04/06/21 1126 Loratadine (Loratadine) 10 Mg Tablet, 10 MG PO DAILY, (Reported) Entered as Reported by: HILARY APPIAH on 04/23/19 1009 Menthol/Lanolin/Calamine/Znox (Calmoseptine Ointment) 71 Gm Oint, 1 APPLIC TP BID PRN for SORES, (Reported) Entered as Reported by: EDISON PRESTON on 05/25/21 1136 Metformin HCl (Metformin HCl) 500 Mg Tablet, 500 MG PO Q12H, (Reported) Entered as Reported by: KRYSTIN NEWMAN on 01/26/171801 Mirabegron (Myrbetriq) 25 Mg Tab.er.24h, 25 MG PO 1700, (Reported) Entered as Reported by: KRYSTIN NEWMAN on 01/26/171801 Nystatin (Nystatin) 15 Gm Cream..g., 1 APPLIC TOP BID, (Reported) Entered as Reported by: HILARY APPIAH on 11/25/17 1108 Ondansetron HCl (Ondansetron HCl) 4 Mg Tablet, 4 MG PO HS PRN for NAUSEA/VOMITING-1ST LINE, (Reported) Entered as Reported by: HILARY APPIAH on 04/23/19 1223 Prednisone (Prednisone) 50 Mg Tab, 50 MG PO DAILY Prescribed by: LUKE DUKES on 08/25/21 1236 Prednisone (Prednisone) 20 Mg Tab, 40 MG PO DAILY Prescribed by: DOMINGA TOLEDO on 11/05/21 2228 Pregabalin (Pregabalin) 100 Mg Capsule, 100 MG PO TID, (Reported) Entered as Reported by: EDISON PRESTON on 04/06/21 112 Rivastigmine (Rivastigmine) 1 Each Patch.td24, 4.6 MG TD DAILY, (Reported) Entered as Reported by: KRYSTIN NEWMAN on 01/26/171801 Sodium Chloride (Lucernemines Saline) 50 Ml Slayden, 1-2 SPRAYS NSEACH BID PRN for DRY NOSE, (Reported) Entered as Reported by: EDISON PRESTON on 05/25/21 1136 Triamcinolone Acet (Triamcinolone Acetonide 0.1% Cream) 15 Gm Cr, 1 APPLIC TOP BID PRN for RASH, (Reported) Entered as Reported by: KRYSTIN NEWMAN on 01/26/171801 Vilazodone Hydrochloride (Viibryd) 10 Mg Tablet, 10 MG PO HS, (Reported) Entered as Reported by: CARIN PRINGLE on 05/27/15 1136 [Radhika Restful Legs] , 2-3 EA PO Q6H PRN for LEG CRAMPS, (Reported) Entered as Reported by: EDISON PRESTON on 05/25/21 1136 Review of Systems Review of Systems Constitutional: No chills, No diaphoresis EENTM: No ear discharge, No ear pain Respiratory: cough; No phlegm; short of breath; No wheezing Cardiovascular: chest pain; No edema Gastrointestinal: No abdominal pain, No loss of appetite, No nausea Genitourinary: No discharge, No dysuria Musculoskeletal: No back pain, No joint pain All Other Systems Reviewed Negative Unless Noted: Yes Past Lnxiotn-Jjuaib-Aujywn Hx Patient Social History Tobacco Use?: No Use of E-Cig and/or Vaping dev: No Substance use?: No Immunizations Up To Date Tetanus Booster (TDap): Unknown PED Vaccines UTD: No First/Initial COVID19 Vaccinat: NOV 2020 Second COVID19 Vaccination Jack: DEC 2020 Third COVID19 Vaccination Date: NOV 2020 Seasonal Allergies Seasonal Allergies: Yes Past Medical History Surgery/Hospitalization HX: HTN, niddm, COPD, PARKINSONS, HIGH CHOLESTEROL, GERD, CONSTIPATION, DEMENTIA, CH. BACK PAIN, ANXIETY, DEPRESSION, SKIN/PROSTATE CA. PROSTATECTOMY, T/A Surgeries: Yes (RIGHT EYELID BASAL CELL CANCER; HERNIA REPAIR X 4, PER PT ) Abdominal, Adenoidectomy, Eye Surgery, Prostatectomy, Tonsillectomy Respiratory: Yes (O2 DEPENDENT AT 3L/NC CONTINUOUSLY;MULTIPLE EPISODES OF PNEUMONIA) Pneumonia, Chronic Bronchitis, COPD, Emphysema Currently Using CPAP: No Currently Using BIPAP: No Cardiac: Yes Chronic Edema/Swelling, High Cholesterol, Hypertension Neurological: Yes Dementia Reproductive Disorders: No Sexually Transmitted Disease: No HIV/AIDS: No Genitourinary: Yes (PROSTATE CANCER > 10 YEARS AGO) Prostate Problems, Kidney Stones Gastrointestinal: Yes (S/P HERNIA REPAIR X 4, PER PT) Abdominal Hernia, Gastroesophageal Reflux, Chronic Constipation, Polyps, Hiatal Hernia Musculoskeletal: Yes (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) Degenerate Disk Disease, Osteoporosis, Arthritis, Chronic Back Pain Endocrine: Yes Diabetes, Non-Insulin dep HEENT: Yes (R EYELID BASAL CELL CANCER;SINUSITIS; NOSEBLEEDS) Cataract Loss of Vision: Right Hearing Impairment: Denies Cancer: Yes (PROSTATE CANCER, BASAL CELL CANCER OF RIGHT EYE) Prostate, Skin Did You Recieve Any Treatments: Yes What Type of Treatment Did You: Surgical Intervention Psychosocial: Yes Anxiety, Depression Integumentary: Yes (SKIN CANCER; PRESSURE ULCERS OF BUTTOCKS/SACRUM) Blood Disorders: No Adverse Reaction/Blood Tranf: No Family Medical History FH: breast cancer G8 SISTER Myocardial infarction 19 FATHER No Pertinent Family Hx CHRONIC GENERALIZED WEAKNESS, FREQUENT FALLS VERY POOR/VERY MINIMAL MOBILITY--HAS POWER CHAIR AND WALKER, WHICH HE HAS REFUSED TO USE AT HOME CHRONIC BILATERAL KNEE PAIN RIGHT EYELID BASAL 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 6.0oz. 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.) Neck: non-tender, full range of motion, supple, normal inspection Respiratory: chest non-tender, lungs clear, normal breath sounds, no respiratory distress (Respiratory rate of 16, 94% on his baseline 3 L by nasal cannula.), no accessory muscle use Cardiovascular: normal peripheral pulses, regular rate, rhythm Gastrointestinal: non tender, soft Extremities: normal inspection, normal capillary refill Neurologic/Psychiatric: alert, normal mood/affect, oriented x 3 Skin: normal color, warm/dry Progress/Results/Core Measures Suspected Sepsis SIRS Temperature: Pulse: Respiratory Rate: Laboratory Tests 11/19/21 14:17: White Blood Count 9.0 Blood Pressure / Mean: Laboratory Tests 11/19/21 14:17: Creatinine 0.86, INR Comment 1.1, Platelet Count 223, Total Bilirubin 0.3 Results/Orders Lab Results Laboratory Tests Test 11/19/21 14:17 11/19/21 14:25 11/19/21 14:39 Range/Units White Blood Count 9.0 4.3-11.0 10^3/uL Red Blood Count 4.53 4.30-5.52 10^6/uL Hemoglobin 12.3 L 13.3-17.7 g/dL Hematocrit 40 40-54 % Mean Corpuscular Volume 88 80-99 fL Mean Corpuscular Hemoglobin 27 25-34 pg Mean Corpuscular Hemoglobin Concent 31 L 32-36 g/dL Red Cell Distribution Width 14.4 10.0-14.5 % Platelet Count 223 130-400 10^3/uL Mean Platelet Volume 9.9 9.0-12.2 fL Immature Granulocyte % (Auto) 1 % Neutrophils (%) (Auto) 61 42-75 % Lymphocytes (%) (Auto) 25 12-44 % Monocytes (%) (Auto) 12 0-12 % Eosinophils (%) (Auto) 1 0-10 % Basophils (%) (Auto) 0 0-10 % Neutrophils # (Auto) 5.5 1.8-7.8 10^3/uL Lymphocytes # (Auto) 2.2 1.0-4.0 10^3/uL Monocytes # (Auto) 1.0 0.0-1.0 10^3/uL Eosinophils # (Auto) 0.1 0.0-0.3 10^3/uL Basophils # (Auto) 0.0 0.0-0.1 10^3/uL Immature Granulocyte # (Auto) 0.1 0.0-0.1 10^3/uL Prothrombin Time 14.5 12.2-14.7 SEC INR Comment 1.1 0.8-1.4 Activated Partial Thromboplast Time 32 24-35 SEC Sodium Level 138 135-145 MMOL/L Potassium Level 4.2 3.6-5.0 MMOL/L Chloride Level 98 98-107 MMOL/L Carbon Dioxide Level 25 21-32 MMOL/L Anion Gap 15 H 5-14 MMOL/L Blood Urea Nitrogen 12 7-18 MG/DL Creatinine 0.86 0.60-1.30 MG/DL Estimat Glomerular Filtration Rate 84 BUN/Creatinine Ratio 14 Glucose Level 113 H 70-105 MG/DL Calcium Level 9.8 8.5-10.1 MG/DL Corrected Calcium 9.6 8.5-10.1 MG/DL Magnesium Level 1.9 1.6-2.4 MG/DL Total Bilirubin 0.3 0.1-1.0 MG/DL Aspartate Amino Transf (AST/SGOT) 66 H 5-34 U/L Alanine Aminotransferase (ALT/SGPT) 53 0-55 U/L Alkaline Phosphatase 71 40-136 U/L Myoglobin 55.5 10.0-92.0 NG/ML Troponin I < 0.028 <0.028 NG/ML B-Type Natriuretic Peptide 15.5 <100.0 PG/ML Total Protein 8.0 6.4-8.2 GM/DL Albumin 4.3 3.2-4.5 GM/DL Lipase 34 8-78 U/L Influenza Type A (RT-PCR) Not Detected Not Detecte Influenza Type B (RT-PCR) Not Detected Not Detecte SARS-CoV-2 RNA (RT-PCR) Not Detected Not Detecte Bedside Blood Gas pH (LAB) 7.390 7.310-7.410 Bedside Blood Gas pCO2 (LAB) 44.8 41.0-51.0 mmHg Bedside Blood Gas pO2 (LAB) 74 L 80-105 mmHg Bedside Blood Gas HCO3 (LAB) 27.1 23.0-28.0 mmol/L POC Blood Gas Total CO2 Calc 28 24-29 mmol/L Bedside Bl Gas O2 Saturation (Calc) 94 L 95-98 % Bedside Arterial Blood Base Excess 2 -2-3 mmol/L My Orders Orders - ASHANTIALBA Cbc With Automated Diff (11/19/21 14:24) Magnesium (11/19/21 14:24) Chest 1 View, Ap/Pa Only (11/19/21 14:24) Comprehensive Metabolic Panel (11/19/21 14:24) Myoglobin Serum (11/19/21 14:24) Protime With Inr (11/19/21 14:24) Partial Thromboplastin Time (11/19/21 14:24) O2 (11/19/21 14:24) Monitor-Rhythm Ecg Trace Only (11/19/21 14:24) Lipid Panel (11/20/21 06:00) Ed Iv/Invasive Line Start (11/19/21 14:24) Lipase (11/19/21 14:24) Bnp [place] (11/19/21 14:24) Troponin I Jessa (11/19/21 14:24) Nitroglycerin 0.4 Mg Btl 25's (Nitrostat (11/19/21 14:30) Ekg Tracing (11/19/21 14:24) Covid 19 Inhouse Test (11/19/21 14:24) Influenza A And B By Pcr (11/19/21 14:24) Medications Given in ED Current Medications Medications Dose Ordered Sig/Bernice Route Start Time Stop Time Status Last Admin Dose Admin Nitroglycerin 0.4 mg UD PRN SL 11/19/21 14:30 11/19/21 14:39 0.4 MG Vital Signs/I&O 11/19/21 11/19/21 14:14 14:14 Temp 37.0 Pulse 87 Resp 19 B/P (MAP) 156/90 (112) Pulse Ox 95 95 O2 Delivery Nasal Cannula Nasal Cannula O2 Flow Rate 3.00 3.00 Capillary Refill : Progress Note : Time: 15:19 Progress Note We will give the patient nitroglycerin for his chest pain. We will not give him aspirin because he states that he has an allergy to aspirin but does not recall what it does to him. We will check labs. Even with a negative initial troponin his heart score would be 5 points and would recommend observation management. ECG Initial ECG Impression Date: Nov 19, 2021 Initial ECG Impression Time: 14:40 Initial ECG Rate: 90 Initial ECG Rhythm: Normal Sinus Initial ECG Intervals: Normal Initial ECG Impression: Normal Initial ECG Comparisson: Unchanged Comment Normal sinus rhythm with no clinically relevant ST elevation or depression. Diagnostic Imaging Diagonstic Imaging: Xray Plain Films/CT/US/NM/MRI: chest Comments [facility], [place] NAME: ISABELA ESPINOZA [facility] REC#: [id number] PT STATUS: REG ER : 1935 PHYSICIAN: ALBA BURRELL MD ADMIT DATE: 11/19/21/ER Draft Date of Exam:11/19/21 CHEST 1 VIEW, AP/PA ONLY CLINICAL INDICATION: Patient with shortness of air and cough. EXAM: Portable chest x-ray upright view. COMPARISON: Chest x-ray dated 11/05/2021. FINDINGS: Lungs/pleura: There is slight improved aeration of both lung bases with residual mild bibasilar atelectasis. Unable to exclude subtle superimposed infiltrate in left lung base given the slight patchy appearance. There is no pneumothorax. There is no pleural effusion. Mediastinum: Hiatal hernia is again seen. Pulmonary vasculature: Unremarkable. Heart: Unremarkable. Bones/extrathoracic soft tissue: Unremarkable. IMPRESSION: 1: There is slight improved aeration of both lung bases with mild bibasilar atelectasis. Unable to exclude subtle superimposed infiltrate in the left lung base given the slight patchy appearance. 2: Hiatal hernia is seen. Dictated on workstation # [id number] Dict: 11/19/21 1518 Trans: 11/19/21 1522 6 [id number] Interpreted by: ASHLEY RESENDEZ MD Electronically signed by: Reviewed: Reviewed by Me Departure Communication (Admissions) Time/Spoke to Admitting Phy: 15:[address] Orona and she agrees to observe the patient with cardiology consult Time/Spoke to Consulting Phy: 15:[address] Marin who agrees to consult on the case. Impression Primary Impression: Acute coronary syndrome without high troponin Disposition: ADMITTED INPATIENT Condition: Stable Admissions Decision to Admit Reason: Admit from ER (General) Decision to Admit/Date: Nov 19, 2021 Time/Decision to Admit Time: 15:39 Departure-Patient Inst. Referrals: [facility] (PCP) Primary Care Physician QUETA BOOKER (Family) Primary Care Physician ALBA BURRELL Nov 19, 2021 14:42
[2021-11-19 14:43] LABS: BILIRUBIN,TOTAL 0.3 MG/DL (0.1-1.0)
[2021-11-19 14:44] LABS: CREATININE SERUM 0.86 MG/DL (0.60-1.30)
[2021-11-19 14:47] LABS: MAGNESIUM 1.9 MG/DL (1.6-2.4)
--- NOTE | 2021-11-19 15:22 | Diagnostic Imaging Report ---
CLINICAL INDICATION: Patient with shortness of air and cough. EXAM: Portable chest x-ray upright view. COMPARISON: Chest x-ray dated 11/05/2021. FINDINGS: Lungs/pleura: There is slight improved aeration of both lung bases with residual mild bibasilar atelectasis. Unable to exclude subtle superimposed infiltrate in left lung base given the slight patchy appearance. There is no pneumothorax. There is no pleural effusion. Mediastinum: Hiatal hernia is again seen. Pulmonary vasculature: Unremarkable. Heart: Unremarkable. Bones/extrathoracic soft tissue: Unremarkable. IMPRESSION: 1: There is slight improved aeration of both lung bases with mild bibasilar atelectasis. Unable to exclude subtle superimposed infiltrate in the left lung base given the slight patchy appearance. 2: Hiatal hernia is seen. Dictated by: Dictated on workstation # [id number]
[2021-11-19 16:30] VITALS: BP 152/73
[2021-11-19] MEDS ORDERED: guaiFENesin/DM (ROBITUSSIN DM) 10 ML UDC PO PRN (18:15)
[2021-11-19] MEDS ORDERED: diphenhydrAMINE 25 MG TAB (BENADRYL) PO PRN (18:15)
[2021-11-19] MEDS ORDERED: ACETAMINOPHEN 325 MG TABLET PO PRN (18:15)
[2021-11-19] MEDS ORDERED: MELATONIN 3 MG TABLET PO PRN (18:15)
[2021-11-19] MEDS ORDERED: morphine INJ 4 MG/ML 1 ML (VIAL/SYRINGE) IV PRN (18:15)
[2021-11-19] MEDS ORDERED: LACTULOSE SYRUP 10GM/15ML (ENULOSE) 30ML UDC PO PRN (18:15)
[2021-11-19] MEDS ORDERED: ANTACID SUSP 30 ML UDC (MYLANTA) PO PRN (18:15)
[2021-11-19] MEDS ORDERED: ENOXAPARIN 40 MG/0.4 ML (LOVENOX) SYR SC SCH (18:15)
[2021-11-19] MEDS ORDERED: polyethylene glycoL POWDER 17 GM (MIRALAX) PACK PO PRN (18:15)
[2021-11-19] MEDS ORDERED: diphenhydrAMINE 50 MG/ML INJ (BENADRYL) IVP PRN (18:15)
[2021-11-19] MEDS ORDERED: MILK OF MAGNESIA 400 MG/5 ML 30 ML UDC PO PRN (18:15)
[2021-11-19] MEDS ORDERED: BISACODYL 10 MG SUPP (DULCOLAX) PR PRN (18:15)
[2021-11-19] MEDS ORDERED: CALCIUM CARBONATE 500 MG (TUMS) TAB.CHEW PO PRN (18:15)
[2021-11-19 18:38] VITALS: BP 156/90
[2021-11-19] MEDS ORDERED: RT-ALBUTEROL SULF 2.5 MG/3 ML PRE-MIX VIAL INH PRN (18:45)
[2021-11-19 19:20] VITALS: BP 124/74
[2021-11-19] MEDS: DOCUSATE SODIUM 100 MG (COLACE) CAP PO SCH (20:09)
[2021-11-19] MEDS: SENNOSIDES 8.6 MG (SENOKOT) TAB PO SCH (20:09)
[2021-11-19] MEDS: inSUlin ASPART (NovoLOG) 1 UNIT/0.01 ML (CHARGE PER UNIT) SC SCH (20:11)
[2021-11-19 23:30] VITALS: BP 142/69
[2021-11-19] MEDS: methylPREDNISolone 40 MG/ML (Solu-MEDROL) VIAL IV SCH (23:37)
[2021-11-19] MEDS: clonazePAM 1 MG (KlonoPIN) TAB PO SCH (23:37)
[2021-11-20 03:45] VITALS: BP 142/70
[2021-11-20] MEDS: clonazePAM 1 MG (KlonoPIN) TAB PO SCH ×2 (05:14→12:46)
[2021-11-20] MEDS: methylPREDNISolone 40 MG/ML (Solu-MEDROL) VIAL IV SCH ×2 (05:14→12:46)
[2021-11-20] MEDS: inSUlin ASPART (NovoLOG) 1 UNIT/0.01 ML (CHARGE PER UNIT) SC SCH ×2 (05:14→12:36)
[2021-11-20 06:02] LABS: BASOPHILS % (AUTO) 0 % (0-10); EOSINOPHILS % (AUTO) 0 % (0-10); HEMATOCRIT 39 % (40-54); HEMOGLOBIN 12.6 g/dL (13.3-17.7); LYMPHOCYTES # (AUTO) 0.9 10^3/uL (1.0-4.0); LYMPHOCYTES % (AUTO) 11 % (12-44); MEAN CORPUSCULAR HEMOGLOBIN 27 pg (25-34); MEAN CORPUSCULAR HGB CONC 32 g/dL (32-36); MEAN CORPUSCULAR VOLUME 86 fL (80-99); MEAN PLATELET VOLUME 10.2 fL (9.0-12.2); MONOCYTES # (AUTO) 0.1 10^3/uL (0.0-1.0); MONOCYTES % (AUTO) 2 % (0-12); NEUTROPHILS % (AUTO) 86 % (42-75); PLATELET COUNT 216 10^3/uL (130-400); WHITE BLOOD COUNT 8.2 10^3/uL (4.3-11.0)
[2021-11-20 06:30] LABS: ALBUMIN 4.4 GM/DL (3.2-4.5); BILIRUBIN,TOTAL 0.4 MG/DL (0.1-1.0); CALCIUM 9.6 MG/DL (8.5-10.1); CREATININE SERUM 0.98 MG/DL (0.60-1.30); POTASSIUM 4.5 MMOL/L (3.6-5.0); TOTAL PROTEIN 7.9 GM/DL (6.4-8.2)
[2021-11-20] MEDS: CATHETER FLUSH 10 ML SYR IVP PRN ×2 (06:54→07:57)
[2021-11-20] MEDS ORDERED: REGADENOSON 0.4 MG/5 ML SYR (LEXISCAN) IV ONE ×2 (07:48→08:00)
[2021-11-20 07:55] VITALS: BP 142/58
[2021-11-20 09:20] VITALS: BP 149/74
--- NOTE | 2021-11-20 09:30 | Consultation-Cardiology ---
HPI-Cardiology Cardiology Consultation Date of Consultation 11/20/21 Date of Admission Time Seen by Provider: 07:50 HPI Patient is an 86 y/o male with history of HTN, HLP, presented to the ER with complaints of intermittent chest pain since yesterday morning. Denies any active chest pain. Denies increased dyspnea, dizziness or lightheadedness. Was given SL nitro in the ER with some relief of his symptoms. Home Medications & Allergies Allergies: Coded Allergies: Serotonin 5HT-3 Antagonists (Unverified Allergy, Unknown, 11/25/17) Tricyclic Compounds (Unverified Allergy, Unknown, 11/25/17) codeine (Verified Allergy, Unknown, pt has rec Morphine in the past, 11/20/21) hydrocodone (Unverified Allergy, Unknown, 10/16/15) aspirin (Unverified Adverse Reaction, Mild, STOMACH IRRITATION, 11/25/17) Home Medication List Reviewed: Yes LHZ-Vpqcsn-Muqxhv Hx Patient Social History Marital Status: Employed/Student: retired Smoking Status: Former Smoker Former smoker/When Quit: May 26, 1959 Type Used: Cigars, Cigarettes 2nd Hand Smoke Exposure: No Recent Hopitalizations: No Have you traveled recently?: No Alcohol Use?: No Immunizations Up To Date Tetanus Booster (TDap): Unknown Date of Pneumonia Vaccine: Mar 31, 2016 Date of Influenza Vaccine: Nov 29, 2020 Past Medical History HTN HLP Family Medical History Significant Family History: No Pertinent Family Hx Family History: FH: breast cancer G8 SISTER Myocardial infarction 19 FATHER Review of Systems-General Review of Systems Constitutional: see HPI; No chills, No diaphoresis EENTM: see HPI; No ear discharge, No ear pain Respiratory: see HPI, cough; No phlegm, No wheezing Cardiovascular: see HPI, chest pain; No edema Gastrointestinal: No abdominal pain, No loss of appetite, No nausea Genitourinary: No discharge, No dysuria Musculoskeletal: No back pain, No joint pain All Other Systems Reviewed Negative Unless Noted: Yes Reviewed Test Results Reviewed Test Results Lab Laboratory Tests 11/19/21 14:17: White Blood Count 9.0, Red Blood Count 4.53, Hemoglobin 12.3L, Hematocrit 40, Mean Corpuscular Volume 88, Mean Corpuscular Hemoglobin 27, Mean Corpuscular Hemoglobin Concent 31L, Red Cell Distribution Width 14.4, Platelet Count 223, Mean Platelet Volume 9.9, Immature Granulocyte % (Auto) 1, Neutrophils (%) (Auto) 61, Lymphocytes (%) (Auto) 25, Monocytes (%) (Auto) 12, Eosinophils (%) (Auto) 1, Basophils (%) (Auto) 0, Neutrophils # (Auto) 5.5, Lymphocytes # (Auto) 2.2, Monocytes # (Auto) 1.0, Eosinophils # (Auto) 0.1, Basophils # (Auto) 0.0, Immature Granulocyte # (Auto) 0.1, Prothrombin Time 14.5, INR Comment 1.1, Activated Partial Thromboplast Time 32, Sodium Level 138, Potassium Level 4.2, Chloride Level 98, Carbon Dioxide Level 25, Anion Gap 15H, Blood Urea Nitrogen 12, Creatinine 0.86, Estimat Glomerular Filtration Rate 84, BUN/Creatinine Ratio 14, Glucose Level 113H, Calcium Level 9.8, Corrected Calcium 9.6, Magnesium Level 1.9, Total Bilirubin 0.3, Aspartate Amino Transf (AST/SGOT) 66H, Alanine Aminotransferase (ALT/SGPT) 53, Alkaline Phosphatase 71, Myoglobin 55.5, Troponin I < 0.028, B-Type Natriuretic Peptide 15.5, Total Protein 8.0, Albumin 4.3, Lipase 34 11/19/21 14:25: Influenza Type A (RT-PCR) Not Detected, Influenza Type B (RT-PCR) Not Detected, SARS-CoV-2 RNA (RT-PCR) Not Detected 11/19/21 14:39: Bedside Blood Gas pH (LAB) 7.390, Bedside Blood Gas pCO2 (LAB) 44.8, Bedside Blood Gas pO2 (LAB) 74L, Bedside Blood Gas HCO3 (LAB) 27.1, POC Blood Gas Total CO2 Calc 28, Bedside Bl Gas O2 Saturation (Calc) 94L, Bedside Arterial Blood Base Excess 2 11/19/21 20:09: Glucometer 178H 11/20/21 05:13: Glucometer 184H 11/20/21 05:17: White Blood Count 8.2, Red Blood Count 4.60, Hemoglobin 12.6L, Hematocrit 39L, Mean Corpuscular Volume 86, Mean Corpuscular Hemoglobin 27, Mean Corpuscular Hemoglobin Concent 32, Red Cell Distribution Width 14.1, Platelet Count 216, Mean Platelet Volume 10.2, Immature Granulocyte % (Auto) 1, Neutrophils (%) (Auto) 86H, Lymphocytes (%) (Auto) 11L, Monocytes (%) (Auto) 2, Eosinophils (%) (Auto) 0, Basophils (%) (Auto) 0, Neutrophils # (Auto) 7.0, Lymphocytes # (Auto) 0.9L, Monocytes # (Auto) 0.1, Eosinophils # (Auto) 0.0, Basophils # (Auto) 0.0, Immature Granulocyte # (Auto) 0.1, Sodium Level 136, Potassium Level 4.5, Chloride Level 98, Carbon Dioxide Level 23, Anion Gap 15H, Blood Urea Nitrogen 13, Creatinine 0.98, Estimat Glomerular Filtration Rate 75, BUN/Creatinine Ratio 13, Glucose Level 186H, Calcium Level 9.6, Corrected Calcium 9.3, Total Bilirubin 0.4, Aspartate Amino Transf (AST/SGOT) 60H, Alanine Aminotransferase (ALT/SGPT) 52, Alkaline Phosphatase 68, Total Protein 7.9, Albumin 4.4, Triglycerides Level 141, Cholesterol Level 171, LDL Cholesterol Direct 131H, VLDL Cholesterol 28, HDL Cholesterol 44 ECG Impression ECG Initial ECG Rhythm: Normal Sinus Physical Exam Physical Exam Vital Signs Vital Signs - First Documented 11/19/21 18:38 FiO2 32 Capillary Refill : Less Than 3 Seconds Height, Weight, BMI Height: 5'8.00" Weight: 250lbs. 6.0oz. 113.286771xf; 33.00 BMI Method:Estimated General Appearance: No Apparent Distress, WD/WN HEENT: PERRL/EOMI Neck: Full Range of Motion, Normal Inspection, Non Tender, Supple; No Carotid Bruit Respiratory: Chest Non Tender, Lungs Clear Cardiovascular: Regular Rate, Rhythm, Other (trace BLE edema) Gastrointestinal: Non Tender, Soft A/P-Cardiology Admission Diagnosis Chest pain HTN HLP COPD Assessment/Plan Chest pain, resembling angina. Responded to nitroglycerin in the ER. EKG showing SR with no ST changes. Cardiac enzymes negative. Has multiple risk factors for underlying CAD. Underwent stress test this morning showing fixed defect with no ischemia or infarct. Okay for discharge and follow-up as an outpatient Chronic pedal edema, last echo was done in October 2019 showing EF 55-65%, grade 1 diastolic dysfunction, mild AR, PA 25-30mmHg, reevaluate 2D Echo Generalized weakness and fatigue Hypertension, restart home medications and continue to monitor. Hyperlipidemia, I will evaluate lipid profile COPD, oxygen dependent, followed by primary care physician History of depression, currently controlled. 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 Hiatal hernia and gastroesophageal reflux. Gastroesophageal has resolved following surgery for hiatal hernia. History of skin cancers for which he has had surgical removal, but cannot recall details. Mild nonobstructive carotid artery stenosis per carotid duplex done in June 2020, continue to monitor DM, management per medical services. Vit D deficiency, followed and managed by primary care physician Thank you for allowing us to participate in the managment of Mr. Ramachandran. This is Anni Landrum PA-C, as a scribe for Dr. Marin Patient was seen and evaluated with Anni, I examined the patient, discussed management plan, reviewed records and reviewed the stress test Patient is feeling better, no further episodes of chest pain. Stress test showed fixed defect of the lateral lobe with diaphragmatic attenuation more probably affecting the quality of the images. Overall I recommend conservative management Okay for discharge and follow-up as an outpatient Made few modification to the note using Italic font Clinical Quality Measures AMI/AHF: ASA po Prior to arrival: No ANNI SANCHEZ Nov 20, 2021 09:30 JUSTIN MARIN MD Nov 20, 2021 10:59
[2021-11-20] MEDS: SENNOSIDES 8.6 MG (SENOKOT) TAB PO SCH (09:32)
[2021-11-20] MEDS: DOCUSATE SODIUM 100 MG (COLACE) CAP PO SCH (09:32)
--- NOTE | 2021-11-20 10:10 | Cardiology Stress Test Report ---
Stress Test Report Date of Procedure/Referring: Date of Procedure: Nov 20, 2021 PCP Mike Yates MD Admitting Physician Admitting Physician: Jocy Orona MD Attending Physician: Jocy Orona MD Indications: cp Baseline Blood Pressure: Blood Pressure Systolic: 149 Blood Pressure Diastolic: 74 Baseline Vitals Vital Signs Date Time Temp Pulse Resp B/P (MAP) Pulse Ox O2 Delivery O2 Flow Rate FiO2 11/19/21 14:14 37.0 87 19 156/90 (112) 95 Nasal Cannula 3.00 11/19/21 18:38 32 Baseline EKG: Baseline EKG: NSR Summary After explaining the procedure to the patient, he signed a consent and then brought to the stress nuclear laboratory. Patient received 0.4 mg Lexiscan for stress test, ECG, heart rate and blood pressure were monitored continuously. Resting and stress dose of radio tracer were injected, imaging was acquired and reviewed in short axis, horizontal long axis and vertical long axis views. TID: 1.02 SSS: 12 SDS: 2 EF: 70 1. Patient tolerated Lexiscan well 2. Diaphragmatic attenuation with fixed defect involving the lateral wall, most probably secondary to the diaphragmatic attenuation. No significant ischemia or infarction noted on SPECT images 3. Normal left ventricular size, ejection fraction 70%, lateral wall is mckinley normally JUSTIN SAINI MD Nov 20, 2021 10:10
--- NOTE | 2021-11-20 10:24 | History & Physical-Hospitalist ---
History of Present Illness HPI/Chief Complaint Pt is a 86yoCM with a PMH of HTN, DM, COPD who presented to the ER due to chest pain. Patient reports that started yesterday morning and he rated it a 10 out of 10 prompting him to seek evaluation in the emergency department. He also had some dyspnea and so he turned up his oxygen from 3 L to 4 L hoping that this would help. He denies any previous symptoms similar to this and denies a history of coronary artery disease. He follows with Dr. Marin for cardiology. He received nitro in the emergency department with improvement in his symptoms. He was admitted for observation and further cardiac work-up. Source: patient Date Seen 11/20/21 Time Seen by a Provider: 10:00 Attending Physician Mike Yates MD PCP Admitting Physician: Sandra Orona MD Attending Physician: Sandra Orona MD Referring Physician Date of Admission Nov 19, 2021 at 18:09 Home Medications & Allergies Home Medications Reviewed patient Home Medication Reconciliation performed by pharmacy medication reconciliations hardware technician and/or nursing. Patients Allergies have been reviewed. Allergies Allergies Coded Allergies Serotonin 5HT-3 Antagonists (Unverified Allergy, Unknown, 11/25/17) Tricyclic Compounds (Unverified Allergy, Unknown, 11/25/17) codeine (Verified Allergy, Unknown, pt has rec Morphine in the past, 11/20/21) hydrocodone (Unverified Allergy, Unknown, 10/16/15) aspirin (Unverified Adverse Reaction, Mild, STOMACH IRRITATION, 11/25/17) Past Lzrijox-Wodzxb-Gzdfft Hx Patient Social History Marrital Status: Employed/Student: retired Tobacco Use?: No Smoking Status: Former Smoker Use of E-Cig and/or Vaping dev: No Substance use?: No Alcohol Use?: No Pt feels they are or have been: No Immunizations Up To Date Date of Influenza Vaccine: Nov 29, 2020 First/Initial COVID19 Vaccinat: NOV 2020 Second COVID19 Vaccination Jack: DEC 2020 Tetanus Booster (TDap): Less Than 5 Years Hepatitis A: Yes Hepatitis B: Yes PED Vaccines UTD: No Date of Pneumonia Vaccine: Mar 31, 2016 Seasonal Allergies Seasonal Allergies: Yes Current Status Advance Directives: No Communicates: Verbally Primary Language: [place]se Preferred Spoken Language: [place]orese Is interpretation needed?: No Sensory deficits: Vision impairment Past Medical History Surgeries: Abdominal, Adenoidectomy, Eye Surgery, Prostatectomy, Tonsillectomy Pneumonia, Chronic Bronchitis, COPD, Emphysema Currently Using CPAP: No Currently Using BIPAP: No Chronic Edema/Swelling, High Cholesterol, Hypertension Dementia Sexually Transmitted Disease: No HIV/AIDS: No Prostate Problems, Kidney Stones Abdominal Hernia, Gastroesophageal Reflux, Chronic Constipation, Polyps, Hiatal Hernia Degenerate Disk Disease, Osteoporosis, Arthritis, Chronic Back Pain Diabetes, Non-Insulin dep Cataract Loss of Vision: Right Hearing Impairment: Denies Prostate, Skin Did You Recieve Any Treatments: Yes What Type of Treatment Did You: Surgical Intervention Anxiety, Depression Blood Disorders: No Adverse Reaction/Blood Tranf: No PMHx: COPD, supplemental oxygen dependent HTN Prostate cancer DMII Osteoarthritis of multiple joints Dementia GERD Anxiety Hyperlipidemia Allergic rhinitis Alzheimer disease SurgHx: Prostatectomy Hernia repair x 2 Cataract Wrist fracture Right eyelid basal cell carcinoma removal Family Medical History Reviewed Nursing Family Hx FH: breast cancer G8 SISTER Myocardial infarction 19 FATHER Heart Disease CHRONIC GENERALIZED WEAKNESS, FREQUENT FALLS VERY POOR/VERY MINIMAL MOBILITY--HAS POWER CHAIR AND WALKER, WHICH HE HAS REFUSED TO USE AT HOME CHRONIC BILATERAL KNEE PAIN RIGHT EYELID BASAL 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 6.0oz. [id number]; 33.00 BMI Method:Estimated General Appearance: No Apparent Distress, Chronically ill, Obese HEENT: Moist Mucous Membranes, Other (Postsurgical changes of right eyelid) Neck: Normal Inspection, Supple Respiratory: Lungs Clear, No Accessory Muscle Use, No Respiratory Distress Cardiovascular: Regular Rate, Rhythm, No Murmur Gastrointestinal: Normal Bowel Sounds, Non Tender, Soft Extremity: Normal Capillary Refill, No Calf Tenderness, No Pedal Edema Neurologic/Psychiatric: Alert, Oriented x3 Skin: Normal Color, Warm/Dry Results Results/Procedures Labs Laboratory Tests 11/19/21 14:17 11/20/21 05:17 Patient resulted labs reviewed. Imaging: Reviewed Imaging Report Imaging [facility], [place] NAME: ISABELA ESPINOZA [facility] REC#: [id number] PT STATUS: ADM Shweta : 1935 PHYSICIAN: ALBA BURRELL MD ADMIT DATE: 11/19/21/[facility] Signed Date of Exam:11/19/21 CHEST 1 VIEW, AP/PA ONLY CLINICAL INDICATION: Patient with shortness of air and cough. EXAM: Portable chest x-ray upright view. COMPARISON: Chest x-ray dated 11/05/2021. FINDINGS: Lungs/pleura: There is slight improved aeration of both lung bases with residual mild bibasilar atelectasis. Unable to exclude subtle superimposed infiltrate in left lung base given the slight patchy appearance. There is no pneumothorax. There is no pleural effusion. Mediastinum: Hiatal hernia is again seen. Pulmonary vasculature: Unremarkable. Heart: Unremarkable. Bones/extrathoracic soft tissue: Unremarkable. IMPRESSION: 1: There is slight improved aeration of both lung bases with mild bibasilar atelectasis. Unable to exclude subtle superimposed infiltrate in the left lung base given the slight patchy appearance. 2: Hiatal hernia is seen. Dictated by: Dictated on workstation # [id number] Dict: 11/19/21 1518 Trans: 11/19/21 1715 [id number] [id number] Interpreted by: ASHLEY RESENDEZ MD Electronically signed by: ASHLEY RESENDEZ MD 11/19/21 1715 Assessment/Plan Admission Diagnosis Chest pain Admission Status: Observation Assessment and Plan Chest pain EKG with no ischemic changes Troponin negative Improved with Nitro Stress test today Cardiology consulted, appreciate recs NIDDMII SII Hold metformin for potential cath HTN BP well controlled, trend COPD On baseline oxygen, continue home meds Diagnosis/Problems Diagnosis/Problems (1) Chest pain Qualifiers: Chest pain type: other chest pain Qualified Codes: R07.89 - Other chest pain (2) Type 2 diabetes mellitus Status: Chronic Qualifiers: Diabetes mellitus intermediate manager insulin use: without intermediate manager use Diabetes mellitus complication status: without complication Qualified Codes: E11.9 - Type 2 diabetes mellitus without complications (3) COPD (chronic obstructive pulmonary disease) Status: Chronic Qualifiers: COPD type: emphysema Emphysema type: unspecified Qualified Codes: J43.9 - Emphysema, unspecified (4) Oxygen dependent Status: Chronic (5) Dementia Status: Chronic Qualifiers: Dementia type: unspecified type Dementia behavioral disturbance: without behavioral disturbance Qualified Codes: F03.90 - Unspecified dementia without behavioral disturbance (6) Hypertension Status: Chronic Qualifiers: Hypertension type: primary hypertension Qualified Codes: I10 - Essential (primary) hypertension (7) BPH (benign prostatic hyperplasia) Status: Chronic Qualifiers: Lower urinary tract symptom presence: unspecified whether lower urinary tract symptoms present Qualified Codes: N40.0 - Benign prostatic hyperplasia without lower urinary tract symptoms Clinical Quality Measures AMI/AHF: ASA po Prior to arrival: SANDRA Bower MD Nov 20, 2021 10:24
--- NOTE | 2021-11-20 11:44 | Physical Therapy Evaluation ---
PT Evaluation-General Medical Diagnosis Admission Date Nov 19, 2021 at 18:09 Medical Diagnosis: acute coronary syndrome Onset Date: Nov 19, 2021 Therapy Diagnosis Therapy Diagnosis: debility/weakness Height/Weight Height (Feet): 5 Height (Inches): 8.00 Weight (Pounds): 250 Weight (Ounces): 6.0 Precautions Precautions/Isolations: Fall Prevention, Standard Precautions Referral Physician: Soco Reason for Referral: Evaluation/Treatment Medical History Pertinent Medical History: COPD, DM, Dementia, HTN, Parkinson's Current History EMS secondary to CP Reviewed History: Yes Social History Home: Single Level Current Living Status: Spouse Entry Into Home: Ramp Prior Prior Level of Function SCALE: Activities may be completed with or without assistive devices. 8-Slvmesuncb-jjeupel completes the activity by him/herself with no assistance from a helper. 5-Set-up or Clean-up Assistance-helper sets up or cleans up; patient completes activity. [place] assists only prior to or following the activity. 4-Supervision or Touching Assistance-helper provides verbal cues and/or touching/steadying and/or contact guard assistance as patient completes a ctivity. Assistance may be provided throughout the activity or intermittently. 3-Partial/Moderate Assistance-helper does LESS THAN HALF the effort. [place] lifts, holds or supports trunk or limbs, but provides less than half the effort. 2-Substantial/Maximal Assistance-helper does MORE THAN HALF the effort. [place] lifts or holds trunk or limbs and provides more than half the effort. 6-Tceqikdgm-mgxgyj does ALL the effort. Patient does none of the effort to complete the activity. Or, the assistance of 2 or more helpers is required for the patient to complete the activity. If activity was not attempted, code reason: 7-Patient Refused. 9-Not Applicable-not attempted and the patient did not perform the activity before the current illness, exacerbation or injury. 10-Not Attempted due to Environmental Limitations-(lack of equipment, weather restraints, etc.). 88-Not Attempted due to Medical Conditions or Safety Concerns. Bed Mobility: 6 Transfers (B,C,W/C): 6 Gait: 6 Wheelchair Mobility: 6 Indoor Mobility (Ambulation): Independent Stairs: Not Applicalbe Prior Devices Use: Motorized scooter, Walker PT Evaluation-Current Subjective Patient agrees to PT. He reports he is in his w/c the majority of the time but does walk short distances. Objective Patient Orientation: Normal For Age Attachments: Oxygen, Fischer Catheter ROM/Strength ROM Lower Extremities bilateral LE WFL Strength Lower Extremities 4-/5 grossly bilateral LE all planes Integumentary/Posture Bowel Incontinence: No Bladder Incontinence: Fischer Cath Posture severe kyphosis Neuromuscular (Tone, Coordination, Reflexes) grossly intact Sensory Vision: Functional Hearing: Functional Transfers Lying to Sitting/Side of Bed(Q: 4 Sit to Stand (QC): 4 Chair/Yru-lm-Gogrq Xfer(QC): 4 Gait Mode of Locomotion: Both Anticipated Mode of Locomotion: Both Walk 10 feet (QC): 4 Gait Assistive Device: FWW Balance Sitting Static: Normal Sitting Dynamic: Normal Standing Static: Normal Standing Dynamic: Normal Assessment/Needs Patient ambulated in room SBA with all mobility. Patient is up in recliner with needs met. Patient will be seen short term by skilled PT to address functional strength and mobility to ensure safe return to home. Rehab Potential: Fair PT Snf Goals Snf Goals PT Snf Goals Time Frame: Dec 01, 2021 Roll Left & Right (QC): 6 Sit to Lying (QC): 6 Lying-Sitting on Side/Bed(QC): 6 Sit to Stand (QC): 6 Chair/Mpu-yi-Tfxzo Xfer(QC): 6 Toilet Transfer (QC): 6 Walk 10 feet (QC): 4 Walk 50ft with 2 Turns (QC): 4 PT Plan Problem List Problem List: Activity Tolerance, Functional Strength, Safety, Balance, Gait, Transfer, Bed Mobility Treatment/Plan Treatment Plan: Continue Plan of Care Treatment Plan: Bed Mobility, Education, Functional Activity Eddy, Functional Strength, Gait, Safety, Therapeutic Exercise, Transfers Treatment Duration: Dec 01, 2021 Frequency: 6 times per week Estimated Hrs Per Day: .25 hour per day Patient and/or Family Agrees t: Yes Time/GCodes Time In: 1035 Time Out: 1045 Total Billed Treatment Time: 10 Total Billed Treatment 1 visit EVModC 10 min DEEPIKA CRAMER PT Nov 20, 2021 11:44
[2021-11-20 11:58] VITALS: BP 144/84
--- NOTE | 2021-11-20 12:12 | Occupational Therapy Eval ---
OT Evaluation-General/PLF Medical Diagnosis Admission Date Nov 19, 2021 at 18:09 Medical Diagnosis: acute coronary syndrome Onset Date: Nov 19, 2021 Therapy Diagnosis Therapy Diagnosis: decreased ADL status Height/Weight Height (Feet): 5 Height (Inches): 8.00 Weight (Pounds): 250 Weight (Ounces): 6.0 Precautions Precautions/Isolations: Fall Prevention, Standard Precautions Referral Physician: Soco Referral Reason: Evaluation/Treatment Medical History Pertinent Medical History: COPD, DM, Dementia, HTN, Parkinson's Additional Medical History COPD, HTN, hyperlipidemia, DM, parkinsons, DDD, arthritis, GERD, dementia, anxiety/depression, skin cancer, prostate cancer, kyphosis (neck flexion with chin resting on chest at all times) Current History EMS from home c/o chest pain since morning (11/19/21) Social History Home: Single Level Current Living Status: Spouse Entry Into Home: Ramp ADL-Prior Level of Function SCALE: Activities may be completed with or without assistive devices. 6-Lysgylvlgg-dliyupd completes the activity by him/herself with no assistance from a helper. 5-Set-up or Clean-up Assistance-helper sets up or cleans up; patient completes activity. [place] assists only prior to or following the activity. 4-Supervision or Touching Assistance-helper provides verbal cues and/or touching/steadying and/or contact guard assistance as patient completes activity. Assistance may be provided throughout the activity or intermittently. 3-Partial/Moderate Assistance-helper does LESS THAN HALF the effort. [place] lifts, holds or supports trunk or limbs, but provides less than half the effort. 2-Substantial/Maximal Assistance-helper does MORE THAN HALF the effort. [place] lifts or holds trunk or limbs and provides more than half the effort. 2-Deanuoczt-ezrklh does ALL the effort. Patient does none of the effort to complete the activity. Or, the assistance of 2 or more helpers is required for the patient to complete the activity. If activity was not attempted, code reason: 7-Patient Refused. 9-Not Applicable-not attempted and the patient did not perform the activity before the current illness, exacerbation or injury. 10-Not Attempted due to Environmental Limitations-(lack of equipment, weather restraints, etc.). 88-Not Attempted due to Medical Conditions or Safety Concerns. ADL PLOF Comments Pt reports IND with ADLs and functional mobility at PLOF, using walker or cane. He has a walk in shower with SC. OT Current Status Subjective Pt in recliner, agreeable to OT Tx. Pt reports he would like to discharge today. Current Upper Extremity Strength grossly 3/5 ADL-Treatment Oral Hygiene (QC): 5 (oral sponge) Shower/Bathe Self (QC): 7 Lower Body Dressing (QC): 7 On/Off Footwear (QC): 7 Toileting Hygiene (QC): 4 (CGA) Other Treatments Pt in recliner, used FWW to transfer into bathroom and onto toilet, CGA. Pt completed toileting then used oral swab to brush his gums. Pt returned to recliner using FWW, CGA. Post tx, pt in recliner, call light in reach and all needs met. Education OT Patient Education: Correct positioning, Energy conservation, Modified ADL techniques, Progress toward Goal/Update tx plan, Purpose of tx/functional activities, Rehab process Teaching Recipient: Patient Teaching Methods: Discussion Response to Teaching: Verbalize Understanding OT Residential Goals Receiving Tank Operator Goals Time Frame: Dec 07, 2021 Eating (QC): 6 Toileting Hygiene (QC): 6 Shower/Bathe Self (QC): 4 Upper Body Dressing (QC): 5 Lower Body Dressing (QC): 4 On/Off Footwear (QC): 4 Additional Goals: 1-Demonstrate ADL Tasks, 2-Verbalize Understanding, 3- ImproveStrength/Eddy 1=Demonstrate adherence to instructed precautions during ADL tasks. 2=Patient will verbalize/demonstrate understanding of assistive devices/modifications for ADL. 3=Patient will improve strength/tolerance for activity to enable patient to perform ADL's. OT Education/Plan Problem List/Assessment Assessment: Decreased Activ Tolerance, Decreased UE Strength, Impaired Funct Balance, Impaired I ADL's, Impaired Self-Care Skills Pt would benefit from short term skilled OT services in order to increase BUE strength and activity tolerance and in order to maximize independence with ADLs and functional mobility in order to maximize LOF for safe return home. Discharge Recommendations Plan/Recommendations: Continue POC Treatment Plan/Plan of Care Patient would benefit from OT for education, treatment and training to promote independence in ADL's, mobility, safety and/or upper extremity function for ADL's. Plan of Care: ADL Retraining, Functional Mobility, UE Funct Exercise/Act Treatment Duration: Dec 07, 2021 Frequency: 3 times per week (3-5 times per week) Agreement: Yes Rehab Potential: Fair Time/GCodes Start Time: 11:35 Stop Time: 11:54 Total Time Billed (hr/min): 19 Billed Treatment Time 1, GLO LAW OT Nov 20, 2021 12:12
[2021-11-20] MEDS ORDERED: VILA10TA2 PO (12:53)
[2021-11-20] MEDS ORDERED: MONT-40 PO (12:53)
[2021-11-20] MEDS ORDERED: MULT-1136 PO (12:53)
[2021-11-20] MEDS ORDERED: MICONAZOLE 2% POWDER (DESENEX AF) 90 GM TOP SCH (13:00)
--- NOTE | 2021-11-20 14:23 | D/C HH Face to Face Order ---
D/C Face to Face Orders Instructions for Patient [facility], Patient Instructions/FollowUp: Please continue to take your medications as written. Please follow up with your primary care doctor to follow up this hospital stay. Physician to follow Patient: Dr Yates Discharge Diet for Home: No Restrictions Patient Data-Allergies,Ht & Wt Patient Allergies: Coded Allergies: Serotonin 5HT-3 Antagonists (Unverified Allergy, Unknown, 11/25/17) Tricyclic Compounds (Unverified Allergy, Unknown, 11/25/17) codeine (Verified Allergy, Unknown, pt has rec Morphine in the past, ) hydrocodone (Unverified Allergy, Unknown, 10/16/15) aspirin (Unverified Adverse Reaction, Mild, STOMACH IRRITATION, 11/25/17) Height (Feet): 5 Height (Inches): 8.00 Weight (Pounds): 250 Weight (Ounces): 6.0 Home Health Need/Face to Face Date of Face to Face: Nov 20, 2021 Clinical Findings: Generalized weakness and fatigue, Wound infection I have seen Pt frsr-lo-ydsi: Yes Discharged To: Home Diagnosis/Conditions: COPD, sacral wound Patient is Homebound due to: Josse fall risk due to instabilty, Shortness of breath/distress Homebound Status Due to the above stated illness, injury or surgical procedure (medical condition or diagnosis) and associated clinical findings, the patient is homebound because of his/her inability to leave home except with aid of a supportive device and/or person AND leaving the home requires a considerable and taxing effort or is medically contraindicated. Pt req the following assistanc: Aid of another person, Wheelchair Home Health Nursing Orders Home Health Services Order: Nursing Services, Continuity Clerk-Evaluate & Treat, Physical Therapy-Evaluate & Treat, Wound Care-Eval/Treat Wound care instructions: 1) wash with soap/water daily, pat dry 2) apply miconazole pwdr to wound area, pannus, groin 3) apply BFD (bordered foam dressing, Allevyn or Mepilex) to left buttock 4) utilize waffle cushion while up in chair. Therapy Orders Therapy Orders: OT (must have SN or PT order), Physical Therapy Therapy Specific Orders: Eval assistive deivces, Teach enviro modifications/safety, Gait training, Increase strength/endurance Certify Stmt I certify that this patient is under my care and that I, a nurse practitioner or a physician; a assistant chief nursing officer working with me, had a face to face encounter that - meets the physician face to face encounter requirements with this patient as dated. SANDRA AECVEDO MD Nov 20, 2021 14:23
== END 2021-11-20 15:12 | disposition home or self-care (01) ==
LOC: EDUNIT# 14:14 → ER 14:16 → UNDOADMOB 15:53 → CSD 15:53 → OBSVTOIN 18:09 → INTOOBSV 18:09 → CSD 18:45 → UNDODISOB 11-20 15:20
PROVIDERS: ADMIT Family Medicine; ATTEND Family Medicine
DX: I24.9 Acute ischemic heart disease, unspecified (principal); Z79.899 Other long term (current) drug therapy; Z87.891 Personal history of nicotine dependence; E11.9 Type 2 diabetes mellitus without complications; Z79.82 Long term (current) use of aspirin; I10 Essential (primary) hypertension; J44.9 Chronic obstructive pulmonary disease, unspecified; Z99.81 Dependence on supplemental oxygen; N40.0 Benign prostatic hyperplasia without lower urinary tract symptoms; F03.90 Unspecified dementia, unspecified severity, without behavioral disturbance, psychotic disturbance, mood disturbance, and anxiety
CPT/HCPCS: 36415; 71045; 78452; 80053; 80061; 82805; 82947; 83690; 83735; 83874; 83880; 84484; 85025; 85610; 85730; 87636; 93005; 93017; 93041; 96375; 96376

== ENCOUNTER 2022-01-04 21:04 | Emergency (ER) | payer MEDICARE, MEDICAID ==
[~2022-01-04] VITALS: Ht 167 cm; Wt 90.0 kg
[~2022-01-04 21:04] MED LIST changes: +MULT-1136 PO; -NYST15CR TOP; +NYST15CR35 TOP; +VILA10TA2 PO
--- NOTE | 2022-01-04 21:15 | ED General ---
General Chief Complaint: Trauma-Non Activation Stated Complaint: FALL/NECK PAIN Nursing Triage Note: Patient presented to the ER tonight via EMS with complaints of neck pain secondary to a fall that occurred yesterday. Patient states he went to get out of bed and fell striking the back of his head on the wall. He advised he has had a severe headache and neck pain. Source of Information: Patient Exam Limitations: No Limitations History of Present Illness Date Seen by Provider: Jan 04, 2022 Time Seen by Provider: 21:14 Initial Comments To ER by EMS from home with reports of a fall that occurred last night and he has now persistent neck pain. No loss of consciousness no nausea no vomiting. Recalls all events. On arrival here he advises me that his doctor thinks he should stay in the hospital. Timing/Duration: 1-2 Days Severity: Moderate Associated Systoms: Denies Symptoms Allergies and Home Medications Allergies Coded Allergies: Serotonin 5HT-3 Antagonists (Unverified Allergy, Unknown, 11/25/17) Tricyclic Compounds (Unverified Allergy, Unknown, 11/25/17) codeine (Verified Allergy, Unknown, pt has rec Morphine in the past, 11/20/21) hydrocodone (Unverified Allergy, Unknown, 10/16/15) aspirin (Unverified Adverse Reaction, Mild, STOMACH IRRITATION, 11/25/17) Patient Home Medication List Home Medication List Reviewed: Yes Albuterol Sulfate (Albuterol Sulfate) 2.5 Mg/3 Ml (0.083 %) Vial.neb, 2.5 MG NEB Q6H PRN for SHORTNESS OF BREATH, (Reported) Entered as Reported by: HILARY APPIAH on 04/23/19 1223 Amlodipine Besylate (Amlodipine Besylate) 10 Mg Tablet, 10 MG PO DAILY, (Reported) Entered as Reported by: HILARY APPIAH on 12/27/15 0851 Clonazepam (Clonazepam) 1 Mg Tablet, 1 MG PO TID, (Reported) Entered as Reported by: HILARY APPIAH on 12/27/15 0851 Donepezil HCl (Donepezil HCl) 5 Mg Tablet, 5 MG PO HS, (Reported) Entered as Reported by: EDISON PRESTON on 04/06/21 1126 Doxazosin Mesylate (Doxazosin Mesylate) 4 Mg Tablet, 4 MG PO 1700, (Reported) Entered as Reported by: CARIN PRINGLE on 05/27/15 1136 Hydrochlorothiazide (Hydrochlorothiazide) 25 Mg Tablet, 25 MG PO DAILY, (Repor herlinda) Entered as Reported by: EDISON PRESTON on 04/06/21 112 Loratadine (Loratadine) 10 Mg Tablet, 10 MG PO DAILY, (Reported) Entered as Reported by: HILARY APPIAH on 04/23/19 1009 Metformin HCl (Metformin HCl) 500 Mg Tablet, 500 MG PO DAILY, (Reported) Entered as Reported by: KRYSTIN NEWMAN on 01/26/171801 Mirabegron (Myrbetriq) 25 Mg Tab.er.24h, 25 MG PO 1700, (Reported) Entered as Reported by: KRYSTIN NEWMAN on 01/26/171801 Montelukast Sodium (Montelukast Sodium) 10 Mg Tablet, 10 MG PO HS, (Reported) Entered as Reported by: EDISON PRESTON on 11/20/21 125 Multivitamin (Multivitamin) 1 Each Tablet, 1 EACH PO DAILY, (Reported) Entered as Reported by: EDISON PRESTON on 11/20/21 125 Pregabalin (Pregabalin) 100 Mg Capsule, 100 MG PO TID, (Reported) Entered as Reported by: EDISON PRESTON on 04/06/211125 Rivastigmine (Rivastigmine) 1 Each Patch.td24, 4.6 MG TD DAILY, (Reported) Entered as Reported by: KRYSTIN NEWMAN on 01/26/171801 Triamcinolone Acet (Triamcinolone Acetonide 0.1% Cream) 15 Gm Cr, 1 APPLIC TOP BID PRN for RASH, (Reported) Entered as Reported by: KRYSTIN NEWMAN on 01/26/171801 Vilazodone HCl (Vilazodone HCl) 10 Mg Tablet, 10 MG PO HS, (Reported) Entered as Reported by: EDISON PRESTON on 11/20/21 125 Review of Systems Review of Systems Constitutional: see HPI EENTM: see HPI Respiratory: no symptoms reported Cardiovascular: no symptoms reported Genitourinary: no symptoms reported Musculoskeletal: see HPI, neck pain Skin: no symptoms reported Psychiatric/Neurological: No Symptoms Reported Hematologic/Lymphatic: No Symptoms Reported Immunological/Allergic: no symptoms reported Past Wtywvyv-Bdtlao-Eyoplf Hx Immunizations Up To Date Tetanus Booster (TDap): Unknown PED Vaccines UTD: No First/Initial COVID19 Vaccinat: NOV 2020 Second COVID19 Vaccination Jack: DEC 2020 Third COVID19 Vaccination Date: NOV 2020 Seasonal Allergies Seasonal Allergies: Yes Past Medical History Surgery/Hospitalization HX: PROSTATE SURGERY Surgeries: Yes (RIGHT EYELID BASAL CELL CANCER; HERNIA REPAIR X 4, PER PT ) Abdominal, Adenoidectomy, Eye Surgery, Prostatectomy, Tonsillectomy Respiratory: Yes (O2 DEPENDENT AT 3L/NC CONTINUOUSLY;MULTIPLE EPISODES OF PNEUMONIA) Pneumonia, Chronic Bronchitis, COPD, Emphysema Currently Using CPAP: No Currently Using BIPAP: No Cardiac: Yes Chronic Edema/Swelling, High Cholesterol, Hypertension Neurological: Yes Dementia Reproductive Disorders: No Sexually Transmitted Disease: No HIV/AIDS: No Genitourinary: Yes (PROSTATE CANCER > 10 YEARS AGO) Prostate Problems, Kidney Stones Gastrointestinal: Yes (S/P HERNIA REPAIR X 4, PER PT) Abdominal Hernia, Gastroesophageal Reflux, Chronic Constipation, Polyps, Hiatal Hernia Musculoskeletal: Yes (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) Degenerate Disk Disease, Osteoporosis, Arthritis, Chronic Back Pain Endocrine: Yes Diabetes, Non-Insulin dep HEENT: Yes (R EYELID BASAL CELL CANCER;SINUSITIS; NOSEBLEEDS) Cataract Loss of Vision: Right Hearing Impairment: Denies Cancer: Yes (PROSTATE CANCER, BASAL CELL CANCER OF RIGHT EYE) Prostate, Skin Did You Recieve Any Treatments: Yes What Type of Treatment Did You: Surgical Intervention Psychosocial: Yes Anxiety, Depression Integumentary: Yes (SKIN CANCER; PRESSURE ULCERS OF BUTTOCKS/SACRUM) Blood Disorders: No Adverse Reaction/Blood Tranf: No Family Medical History FH: breast cancer G8 SISTER Myocardial infarction 19 FATHER Heart Disease CHRONIC GENERALIZED WEAKNESS, FREQUENT FALLS VERY POOR/VERY MINIMAL MOBILITY--HAS POWER CHAIR AND WALKER, WHICH HE HAS REFUSED TO USE AT HOME CHRONIC BILATERAL KNEE PAIN RIGHT EYELID BASAL 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 6.0oz. 113.361960ft; 32.00 BMI Method:Estimated General Appearance: No Apparent Distress, WD/WN Eyes: Bilateral Eye Normal Inspection, Bilateral Eye PERRL, Bilateral Eye EOMI HEENT: PERRL/EOMI, TMs Normal, Other (He has had a surgical excision of the right lower eyelid.) Neck: Full Range of Motion, Normal Inspection Respiratory: No Accessory Muscle Use, No Respiratory Distress Cardiovascular: Regular Rate, Rhythm, Normal Peripheral Pulses Gastrointestinal: Normal Bowel Sounds, Non Tender, Soft Extremity: Normal Capillary Refill, Normal Inspection Neurologic/Psychiatric: Oriented x3 Skin: Normal Color, Warm/Dry Progress/Results/Core Measures Suspected Sepsis SIRS Temperature: Pulse: 82 Respiratory Rate: 18 Blood Pressure 146 /68 Mean: 94 Results/Orders My Orders Orders - BOZENA WERNER APRN Ct Head/Cervical Spine Wo (01/04/22 21:13) Chest 1 View, Ap/Pa Only (01/04/22 21:13) Vital Signs/I&O 01/04/22 21:07 Pulse 82 Resp 18 B/P (MAP) 146/68 (94) Pulse Ox 91 O2 Delivery Room Air Capillary Refill : Less Than 3 Seconds Blood Pressure Mean: 94 Departure Impression Primary Impression: Cervical myofascial strain Disposition: 01 HOME, SELF-CARE Condition: Stable Departure-Patient Inst. Decision time for Depature: 21:50 Referrals: TAYLOR DURAND MD (PCP/Family) Primary Care Physician Patient Instructions: Neck Pain ED BOZENA WERNER APRN Jan 04, 2022 21:15
--- NOTE | 2022-01-04 21:57 | Diagnostic Imaging Report ---
HISTORY: Fall, chest pain, trauma. COMPARISON: 11/19/2021. TECHNIQUE: Frontal view of the chest. FINDINGS: Lung volumes are normal. There are linear opacities in the lung bases which appear similar to the prior exam, likely atelectasis or scarring. No new consolidation is seen. There is a large hiatal hernia. There is calcific atherosclerosis. IMPRESSION: 1. Basilar airspace opacities, likely atelectasis or scarring. No new consolidation is seen. 2. Hiatal hernia. Dictated by: Dictated on workstation # [id number]
--- NOTE | 2022-01-04 22:10 | Diagnostic Imaging Report ---
PROCEDURE: CT head and CT cervical spine without contrast. TECHNIQUE: Multiple contiguous axial images were obtained through the brain and cervical spine without the use of intravenous contrast. Sagittal and coronal reformations through the cervical spine were then performed. Auto Exposure Controls were utilized during the CT exam to meet ALARA standards for radiation dose reduction. INDICATION: Fall, head and neck pain. COMPARISON: 04/05/2021. FINDINGS: CT HEAD: Ventricles and cortical sulci are diffusely prominent. This is likely from generalized parenchymal volume loss. No acute intracranial hemorrhage is seen. There is no CT evidence of acute territorial ischemia. The calvarium appears intact. Visualized paranasal sinuses are clear. CT CERVICAL SPINE: Alignment of the cervical spine appears normal with no spondylolisthesis. There are severe degenerative changes at C5-C6, C6-C7. Vertebral body heights are preserved. No acute fracture is seen. No bony fragment or hyperdense fluid collection is seen in the spinal canal. IMPRESSION: 1. No acute intracranial hemorrhage or calvarium fracture. 2. Degenerative changes in the cervical spine with no acute fracture seen. Dictated by: Dictated on workstation # [id number]
[2022-01-04 22:25] VITALS: BP 146/68
== END 2022-01-04 22:25 | disposition home or self-care (01) ==
LOC: EDUNIT# 21:04 → ER 21:05
DX: S16.1XXA Strain of muscle, fascia and tendon at neck level, initial encounter (principal); W19.XXXA Unspecified fall, initial encounter
CPT/HCPCS: 70450; 71045; 72125; 99283

== ENCOUNTER 2022-01-30 08:02 | Day surgery (SDC) | payer MEDICARE, MEDICAID ==
[~2022-01-30] VITALS: Ht 182.9 cm; Wt 117.5 kg
[2022-01-30] VITALS (9 sets, daily range): BP systolic 120–157; BP diastolic 59–78
[2022-01-30] MEDS ORDERED: NS IV 1000 ML 1,000 ML ONE (08:13)
[2022-01-30] MEDS ORDERED: LIDOCAINE 1% INJ 30 ML (XYLOCAINE) VIAL ONE (08:13)
[2022-01-30] MEDS ORDERED: HEParin (CATH LAB) 2,000 ML IV ONE (08:13)
[2022-01-30] MEDS ORDERED: NS IV 1000 ML 1,000 ML IV SCH ×2 (08:15→11:00)
[2022-01-30 09:05] LABS: BILIRUBIN,URINE NEGATIVE (NEGATIVE); CLARITY,URINE CLEAR; COLOR,URINE YELLOW; GLUCOSE, URINE (UA) NEGATIVE (NEGATIVE); KETONES,URINE NEGATIVE (NEGATIVE); LEUKOCYTE ESTERASE ,URINE NEGATIVE (NEGATIVE); NITRITE,URINE NEGATIVE (NEGATIVE); PROTEIN,URINE NEGATIVE (NEGATIVE)
[2022-01-30 09:06] LABS: HEMATOCRIT 37 % (40-54); HEMOGLOBIN 11.5 g/dL (13.3-17.7); MEAN CORPUSCULAR HEMOGLOBIN 27 pg (25-34); MEAN CORPUSCULAR HGB CONC 31 g/dL (32-36); MEAN CORPUSCULAR VOLUME 88 fL (80-99); MEAN PLATELET VOLUME 9.6 fL (9.0-12.2); PLATELET COUNT 213 10^3/uL (130-400); WHITE BLOOD COUNT 9.1 10^3/uL (4.3-11.0)
--- NOTE | 2022-01-30 09:15 | Diagnostic Imaging Report ---
INDICATION: Heart catheterization, hypertension COMPARISON: 01/04/2022. TECHNIQUE: Single radiograph of the chest dated 01/30/2022. FINDINGS: The cardiac silhouette is within normal limits in size. No significant pulmonary vascular congestion. Moderate sized hiatal hernia. Minimal linear basilar interstitial opacities are again noted, similar to the prior examination. No new focal pulmonary opacity. No significant pleural effusion. No pneumothorax. No acute osseous abnormality. IMPRESSION: Persistent bibasilar scarring and/or atelectasis. Moderate sized hiatal hernia. Dictated by: Dictated on workstation # [id number]
[2022-01-30 09:18] LABS: BACTERIA,URINE NEGATIVE /HPF
[2022-01-30 09:29] LABS: INR 1.1 (0.8-1.4); PROTHROMBIN TIME PATIENT 14.7 SEC (12.2-14.7)
[2022-01-30 09:36] LABS: ALBUMIN 4.2 GM/DL (3.2-4.5); BILIRUBIN,TOTAL 0.4 MG/DL (0.1-1.0); CALCIUM 9.5 MG/DL (8.5-10.1); CREATININE SERUM 0.82 MG/DL (0.60-1.30); POTASSIUM 4.2 MMOL/L (3.6-5.0); TOTAL PROTEIN 7.9 GM/DL (6.4-8.2)
[2022-01-30] MEDS ORDERED: VERAPAMIL 5 MG/2 ML (CALAN) VIAL IV ONE (10:00)
[2022-01-30] MEDS ORDERED: fentaNYL INJ 100 MCG/2 ML AMP ONE (10:01)
[2022-01-30] MEDS ORDERED: MIDAZOLAM 2 MG/2 ML (VERSED) VIAL ONE (10:01)
[2022-01-30] MEDS ORDERED: NITRO DRIP 25000 MCG/D5W 250 ML IV ONE (10:01)
[2022-01-30] MEDS ORDERED: HEParin 1000 UNIT/ML (10ML VIAL) FOR BOLUS ONE (10:01)
--- NOTE | 2022-01-30 10:50 | Cardiac Procedure Note-CS/ASA ---
Pre-Procedure Note Pre-Op Procedure Note Date of Available H&P: Jan 17, 2022 Date H&P Reviewed: Jan 30, 2022 Time H&P Reviewed: 10:00 History & Physical: H&P Reviewed, Patient Examed, No changes noted Pre-Operative Diagnosis: CAD Conscious Sedation Pre-Proced Time 10:00 ASA Score 3 For ASA 3 and 4: Consider anesthesia and medical clearance. Also, for patients with a history of failed moderate sedation consider anesthesia. Airway Lungs Heart ASA score ASA 1: a normal healthy patient ASA 2: a patient with a mild systemic disease (mid diabetes, controlled hypertension, obesity x ASA 3: a patient with a severe systemic disease that limits activity (angina, COPD, prior Myocardial infarction) ASA 4: a patient with an incapacitating disease that is a constant threat to life (CHF, renal failure) ASA 5: a moribund patient not expected to survive 24 hrs. (ruptured aneurysm) ASA 6: a declared brain- patient whose organs are being harvested. For emergent operations, add the letter E after the classification Mallampati Classification Grade 3 Sedation Plan Analgesia, Amnesia, Plan communicated to team members, Discussed options with patient/fam, Discussed risks with patient/fam The patient is an appropriate candidate to undergo the planned procedure, sedation, and anesthesia. The patient immediately re-assessed prior to indication. JUSTIN SAINI MD Jan 30, 2022 10:50
[2022-01-30] MEDS ORDERED: METF-397 PO (10:51)
--- NOTE | 2022-01-30 10:51 | Discharge Inst-Post CATH ---
Discharge Inst-CATH/EP Problems Reviewed?: Yes Post Cardiac Cath/EP D/C Inst Follow Up/Plan Hold metformin for [address] Marin's office in 2 to 4 weeks <b>CARDIAC CATH/EP PROCEDURE DISCHARGE INSTRUCTIONS</b> ACTIVITY * Go Home directly and rest. * Limit activity of the leg (or wrist if it was used) for 7 days including aerobics, swimming, jogging, bicycling, etc. * Restrict stair-climbing for 7 days if possible, if not, climb up with your non-cath leg, then bring together on the same step. * Avoid lifting, pushing, pulling or excessive movement of the affected extremity for 7 days. * Customary sexual activity may be resumed after 2 days-use caution not to use a position that strains or causes pain to the affected extremity. * No driving for 24 hours. * NO SMOKING. * Avoid straining for bowel movements for 7 days. * Gentle walking on level ground is allowed. * Returning to work will depend on the type of procedure and the results. Your doctor will discuss this with you. CALL YOUR DOCTOR FOR ANY OF THE FOLLOWING: *If bleeding from the puncture site occurs- Apply gentle pressure to site with clean cloth and call your doctor or EMS. * If a knot or lump forms under the skin, increases in size, or causes pain. * If bruising appears to be worsening or moving further down your leg instead of disappearing. * Temperature above 101 F. CARE OF YOUR GROIN INCISION; * Bruising or purple discoloration of the skin near the puncture site is common. * You may shower only, no bathtub bathing for 5 days. Be careful to avoid slipping as your leg may feel stiff. * If a closure device was used on your femoral artery, please see the attached guide regarding care of the device and your leg. * Leave dressing on FOR 24 hours. CARE OF YOUR WRIST INCISION; * Bruising or purple discoloration of the skin near the puncture site is common. * You may shower. * DO NOT submerge wrist. * Leave dressing on FOR 24 hours. JUSTIN MARIN MD Jan 30, 2022 10:51
--- NOTE | 2022-01-30 10:55 | Cardiac Cath Report ---
Cardiac Cath Report Physician (s)/Cheese Supervisor (s) Physician JUSTIN SAINI MD Pre-Procedure Diagnosis Pre-Procedure Diagnosis: CAD Post-Procedure Note Procedure Start Date: Jan 30, 2022 Name of Procedure: Left heart catheterization Aortic arch angiogram Findings/Procedure Note PROCEDURE NOTE: 86 years old gentleman with history of hypertension, hyperlipidemia, diabetes mellitus. Had an abnormal stress test, scheduled for cardiac catheterization possible PTCA After explaining the procedure to the patient, all pros and cons were explained, all questions were answered. The patient signed the consent and then he was placed on the cardiac catheterization laboratory. Groin was prepped SL fashion local anesthesia was used. Sheath placed in the right radial artery, [place] catheter was advanced, I had significant difficulty advancing the wire and the catheter through the brachiocephalic artery due to significant tortuosity. The catheter was prolapsed to the left ventricular cavity, pressure was measured, pullback LV to aorta was done, engage the right and left coronary system and angiogram was done then I pulled the catheter back to the aortic arch and aortic arch angiogram was done. At the end of the procedure the sheath was removed. Vascular band was used FINDINGS: Hemodynamics LV 118/8, end-diastolic pressure of 8 Aorta 102/52 mean of 69 ANATOMY: Left Main is free of obstructive disease Left Anterior Descending is slightly tortuous with mild disease distally at the apex, nonobstructive disease small vessel disease Left Circumflex is moderate in size with no significant obstructive disease Right Coronary Artery is dominant artery with mild disease nonobstructive disease LV Gram was not done, pressure was measured Aorta evaluation done with aortic arch angiogram which showed calcification in the aortic arch, no dissection or aneurysm. Tortuous brachiocephalic artery with a loop in the right subclavian, normal origin of the left carotid and left subclavian artery CONCLUSION: 1. Mild to moderate coronary artery disease small vessel disease nonobstructive disease 2. Normal left ventricular end-diastolic pressure 3. Hypertensive changes in the thoracic aorta with tortuous brachiocephalic artery and right subclavian artery nonobstructive disease DISCUSSION AND RECOMMENDATION: Continue to maximize medical therapy. No intervention is warranted Anesthesia Type: Conscious Sedation Estimated blood loss (mL): 10 ml Contrast Amount: 40 ml Total Radiation Dose: 370 mGy Post-Procedure Diagnosis Post-operative diagnosis: Chest pain Coronary artery disease Hypertension Hyperlipidemia Diabetes mellitus JUSTIN SAINI MD Jan 30, 2022 10:55
== END 2022-01-30 14:05 ==
LOC: CATH 08:02 → SDC 11:16 → CATH 14:05
PROVIDERS: ATTEND Internal Medicine Cardiovascular Disease
DX: I25.10 Atherosclerotic heart disease of native coronary artery without angina pectoris (principal); I10 Essential (primary) hypertension; E11.9 Type 2 diabetes mellitus without complications; R60.0 Localized edema; J44.9 Chronic obstructive pulmonary disease, unspecified; F32.A Depression, unspecified; K44.9 Diaphragmatic hernia without obstruction or gangrene; K21.9 Gastro-esophageal reflux disease without esophagitis; I65.29 Occlusion and stenosis of unspecified carotid artery; E55.9 Vitamin D deficiency, unspecified; Z79.899 Other long term (current) drug therapy; Z79.84 Long term (current) use of oral hypoglycemic drugs; Z99.81 Dependence on supplemental oxygen; Z98.890 Other specified postprocedural states; Z85.828 Personal history of other malignant neoplasm of skin; E78.2 Mixed hyperlipidemia
CPT/HCPCS: 36221; 71045; 80053; 80061; 81000; 85027; 85610; 85730; 87081; 93458; C1894; 36415; 93005

== ENCOUNTER 2022-02-10 01:09 | Emergency (ER) | payer MEDICARE, MEDICAID ==
[~2022-02-10] VITALS: Ht 182.9 cm; Wt 117.5 kg
[2022-02-10] MEDS ORDERED: LORATADINE (CLARITIN) 10 MG TAB PO ONE (01:30)
--- NOTE | 2022-02-10 01:42 | ED General ---
General Chief Complaint: Allergic Reaction Stated Complaint: ITCHING ALL OVER Nursing Triage Note: Pt to ED5 via EMS w c/o "allergies acting up, my skin is itching all over". Pt reports they stopped his allergy medicine. Source of Information: Patient Exam Limitations: No Limitations History of Present Illness Date Seen by Provider: Feb 10, 2022 Allergies and Home Medications Allergies Coded Allergies: Serotonin 5HT-3 Antagonists (Unverified Allergy, Unknown, 11/25/17) Tricyclic Compounds (Unverified Allergy, Unknown, 11/25/17) codeine (Verified Allergy, Unknown, pt has rec Morphine in the past, 11/20/21) hydrocodone (Unverified Allergy, Unknown, 10/16/15) aspirin (Unverified Adverse Reaction, Mild, STOMACH IRRITATION, 11/25/17) Patient Home Medication List Albuterol Sulfate (Albuterol Sulfate) 2.5 Mg/3 Ml (0.083 %) Vial.neb, 2.5 MG NEB Q6H PRN for SHORTNESS OF BREATH, (Reported) Entered as Reported by: HILARY APPIAH on 04/23/19 1223 Amlodipine Besylate (Amlodipine Besylate) 10 Mg Tablet, 10 MG PO DAILY, (Reported) Entered as Reported by: HILARY APPIAH on 12/27/15 0851 Clonazepam (Clonazepam) 1 Mg Tablet, 1 MG PO TID, (Reported) Entered as Reported by: HILARY APPIAH on 12/27/15 0851 Donepezil HCl (Donepezil HCl) 5 Mg Tablet, 5 MG PO HS, (Reported) Entered as Reported by: EDISON PRESTON on 04/06/21 1126 Doxazosin Mesylate (Doxazosin Mesylate) 4 Mg Tablet, 4 MG PO 1700, (Reported) Entered as Reported by: CARIN PRINGLE on 05/27/15 1136 Hydrochlorothiazide (Hydrochlorothiazide) 25 Mg Tablet, 25 MG PO DAILY, (Reported) Entered as Reported by: EDISON PRESTON on 04/06/21 1126 Loratadine (Loratadine) 10 Mg Tablet, 10 MG PO DAILY, (Reported) Entered as Reported by: HILARY APPIAH on 04/23/19 1009 Metformin HCl (Metformin HCl) 500 Mg Tablet, 500 MG PO DAILY Prescribed by: JUSTIN SAINI on 01/30/22 1051 Mirabegron (Myrbetriq) 25 Mg Tab.er.24h, 25 MG PO 1700, (Reported) Entered as Reported by: KRYSTIN NEWMAN on 01/26/171801 Montelukast Sodium (Montelukast Sodium) 10 Mg Tablet, 10 MG PO HS, (Reported) Entered as Reported by: EDISON PRESTON on 11/20/21 125 Multivitamin (Multivitamin) 1 Each Tablet, 1 EACH PO DAILY, (Reported) Entered as Reported by: EDISON PRESTON on 11/20/21 125 Pregabalin (Pregabalin) 100 Mg Capsule, 100 MG PO TID, (Reported) Entered as Reported by: EDISON PRESTON on 04/06/21 1126 Rivastigmine (Rivastigmine) 1 Each Patch.td24, 4.6 MG TD DAILY, (Reported) Entered as Reported by: KRYSTIN NEWMAN on 01/26/171801 Triamcinolone Acet (Triamcinolone Acetonide 0.1% Cream) 15 Gm Cr, 1 APPLIC TOP BID PRN for RASH, (Reported) Entered as Reported by: KRYSTIN NEWMAN on 01/26/171801 Vilazodone HCl (Vilazodone HCl) 10 Mg Tablet, 10 MG PO HS, (Reported) Entered as Reported by: EDISON PRESTON on 11/20/211252 Past Qtjbdmb-Kcdygg-Jkvzaf Hx Patient Social History Tobacco Use?: No Smoking Status: Former Smoker Use of E-Cig and/or Vaping dev: No Substance use?: No Alcohol Use?: No Pt feels they are or have been: No Immunizations Up To Date Tetanus Booster (TDap): Unknown PED Vaccines UTD: No Influenza Vaccine Up-to-Date: Yes; Up-to-Date First/Initial COVID19 Vaccinat: NOV 2020 Second COVID19 Vaccination Jack: DEC 2020 Third COVID19 Vaccination Date: 2021 Seasonal Allergies Seasonal Allergies: Yes Past Medical History Surgery/Hospitalization HX: PROSTATE SURGERY, Pt recently had heart cath Surgeries: Yes (RIGHT EYELID BASAL CELL CANCER; HERNIA REPAIR X 4, PER PT ) Abdominal, Adenoidectomy, Eye Surgery, Orthopedic, Prostatectomy, Tonsillectomy Respiratory: Yes (O2 DEPENDENT AT 3L/NC CONTINUOUSLY;MULTIPLE EPISODES OF PNEUMONIA) Asthma, Pneumonia, Chronic Bronchitis, COPD, Emphysema Currently Using CPAP: No Currently Using BIPAP: No Cardiac: Yes Chronic Edema/Swelling, High Cholesterol, Hypertension Neurological: Yes Dementia Reproductive Disorders: No Sexually Transmitted Disease: No HIV/AIDS: No Genitourinary: Yes (PROSTATE CANCER > 10 YEARS AGO) Prostate Problems, Kidney Stones Gastrointestinal: Yes (S/P HERNIA REPAIR X 4, PER PT) Abdominal Hernia, Gastroesophageal Reflux, Chronic Constipation, Polyps, Hiatal Hernia Musculoskeletal: Yes (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) Degenerate Disk Disease, Osteoporosis, Arthritis, Chronic Back Pain Endocrine: Yes Diabetes, Non-Insulin dep HEENT: Yes (R EYELID BASAL CELL CANCER;SINUSITIS; NOSEBLEEDS) Cataract Loss of Vision: Right Hearing Impairment: Denies Cancer: Yes (PROSTATE CANCER, BASAL CELL CANCER OF RIGHT EYE) Prostate, Skin Did You Recieve Any Treatments: Yes What Type of Treatment Did You: Surgical Intervention Psychosocial: Yes Anxiety, Depression Integumentary: Yes (SKIN CANCER; PRESSURE ULCERS OF BUTTOCKS/SACRUM) Blood Disorders: No Adverse Reaction/Blood Tranf: No Family Medical History FH: breast cancer G8 SISTER Myocardial infarction 19 FATHER Heart Disease CHRONIC GENERALIZED WEAKNESS, FREQUENT FALLS VERY POOR/VERY MINIMAL MOBILITY--HAS POWER CHAIR AND WALKER, WHICH HE HAS REFUSED TO USE AT HOME CHRONIC BILATERAL KNEE PAIN RIGHT EYELID BASAL 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 6.0oz. 113.677376xu; 35.00 BMI Method:Estimated Progress/Results/Core Measures Suspected Sepsis SIRS Temperature: Pulse: 86 Respiratory Rate: 20 Blood Pressure 133 /80 Mean: 97 Results/Orders My Orders Orders - CEASAR LUCAS MD Loratadine Tablet (Claritin Tablet) (02/10/22 01:30) Vital Signs/I&O 02/10/22 01:09 Temp 36.9 Pulse 86 Resp 20 B/P (MAP) 133/80 (97) Pulse Ox 97 O2 Delivery Nasal Cannula O2 Flow Rate 3.00 Capillary Refill : Blood Pressure Mean: 97 Departure Impression Primary Impression: Pruritic condition Additional Impressions: Decubitus skin ulcer Qualified Codes: L89.322 - Pressure ulcer of left buttock, stage 2 Dry skin Disposition: HOME, SELF-CARE Condition: Stable Departure-Patient Inst. Decision time for Depature: 01:38 Referrals: TAYLOR DURAND MD (PCP/Family) Primary Care Physician Patient Instructions: Pressure Sores, Itchy Skin Add. Discharge Instructions: You may resume using Claritin (loratadine) 10 mg daily for itching. This is an jivs-tqb-bnidviy medication you do not need a prescription for. You should still have some at home that you were prescribed at the end of December. You may resume the supply. Use a moisturizing lotion such as Eucerin cream to help with dry skin and itching. You may leave the Mepilex dressing on your bedsore for up to 1 week. Avoid pressure on this area as much as possible. Change positions in bed and in your chair as often as possible to avoid worsening bedsores or new bedsores. Follow-up with your primary care provider soon as possible. Return to the ER if you have worsening symptoms despite following these instructions. All discharge instructions reviewed with patient and/or family. Voiced understan ding. CEASAR LUCAS MD Feb 10, 2022 01:41
[2022-02-10 02:02] VITALS: BP 124/61
== END 2022-02-10 02:27 | disposition home or self-care (01) ==
LOC: EDUNIT# 01:09 → ER 01:10
DX: L29.9 Pruritus, unspecified (principal); L89.309 Pressure ulcer of unspecified buttock, unspecified stage; Z87.891 Personal history of nicotine dependence
CPT/HCPCS: 99283

== ENCOUNTER 2022-05-13 11:09 | Emergency (ER) | payer MEDICARE, MEDICAID ==
[~2022-05-13] VITALS: Ht 182.9 cm; Wt 117.5 kg
[~2022-05-13 11:09] MED LIST changes: -DOXY-311 PO; +DOXY-444 PO
--- NOTE | 2022-05-13 11:23 | ED Cough/URI ---
General Chief Complaint: Cough/Cold/Flu Symptoms Stated Complaint: COUGH | WEAKNESS History of Present Illness Date Seen by Provider: May 13, 2022 Time Seen by Provider: 11:09 Initial Comments 86-year-old male presents via EMS for productive cough, weakness and wheezing. Patient reports symptoms began today. He has received his COVID vaccines and boosters, as well as a flu vaccine this year. He denies any fevers at home. He took his morning medications and has ate. He denies any nausea or vomiting. He wears oxygen at home 3 L per nasal cannula at all times, SaO2 91-97% on 3 L per NC. He denies using CPAP at night. He has significant swelling bilat LEs, reporting worse than normal, he is on HCTZ no other diuretics. He has an inhaler and used it this morning. Timing/Duration: this morning Severity/Quality: productive cough Prior Episodes/Possible Cause: occasional episodes Associated Symptoms: cough, shortness of breath, wheezing Allergies and Home Medications Allergies Coded Allergies: Serotonin 5HT-3 Antagonists (Unverified Allergy, Unknown, 11/25/17) Tricyclic Compounds (Unverified Allergy, Unknown, 11/25/17) codeine (Verified Allergy, Unknown, pt has rec Morphine in the past, 11/20/21) hydrocodone (Unverified Allergy, Unknown, 10/16/15) aspirin (Unverified Adverse Reaction, Mild, STOMACH IRRITATION, 11/25/17) Patient Home Medication List Home Medication List Reviewed: Yes Albuterol Sulfate (Albuterol Sulfate) 2.5 Mg/3 Ml (0.083 %) Vial.neb, 2.5 MG NEB Q6H PRN for SHORTNESS OF BREATH, (Reported) Entered as Reported by: HILARY APPIAH on 04/23/19 1223 Amlodipine Besylate (Amlodipine Besylate) 10 Mg Tablet, 10 MG PO DAILY, (Reported) Entered as Reported by: HILARY APPIAH on 12/27/15 0851 Clonazepam (Clonazepam) 1 Mg Tablet, 1 MG PO TID, (Reported) Entered as Reported by: HILARY APPIAH on 12/27/15 0851 Donepezil HCl (Donepezil HCl) 5 Mg Tablet, 5 MG PO HS, (Reported) Entered as Reported by: EDISON PRESTON on 04/06/21 1126 Doxazosin Mesylate (Doxazosin Mesylate) 4 Mg Tablet, 4 MG PO 1700, (Reported) Entered as Reported by: CARIN PRINGLE on 05/27/15 1136 Hydrochlorothiazide (Hydrochlorothiazide) 25 Mg Tablet, 25 MG PO DAILY, (Reported) Entered as Reported by: EDISON PRESTON on 04/06/21 112 Loratadine (Loratadine) 10 Mg Tablet, 10 MG PO DAILY, (Reported) Entered as Reported by: HILARY APPIAH on 04/23/19 1009 Metformin HCl (Metformin HCl) 500 Mg Tablet, 500 MG PO DAILY Prescribed by: JUSTIN SAINI on 01/30/22 1051 Mirabegron (Myrbetriq) 25 Mg Tab.er.24h, 25 MG PO 1700, (Reported) Entered as Reported by: KRYSTIN NEWMAN on 01/26/17 180 Montelukast Sodium (Montelukast Sodium) 10 Mg Tablet, 10 MG PO HS, (Reported) Entered as Reported by: EDISON PRESTON on 11/20/21 125 Multivitamin (Multivitamin) 1 Each Tablet, 1 EACH PO DAILY, (Reported) Entered as Reported by: EDISON PRESTON on 11/20/21 125 Pregabalin (Pregabalin) 100 Mg Capsule, 100 MG PO TID, (Reported) Entered as Reported by: EDISON PRESTON on 04/06/21 112 Rivastigmine (Rivastigmine) 1 Each Patch.td24, 4.6 MG TD DAILY, (Reported) Entered as Reported by: KRYSTIN NEWMAN on 01/26/171801 Triamcinolone Acet (Triamcinolone Acetonide 0.1% Cream) 15 Gm Cr, 1 APPLIC TOP BID PRN for RASH, (Reported) Entered as Reported by: KRYSTIN NEWMAN on 01/26/171801 Vilazodone HCl (Vilazodone HCl) 10 Mg Tablet, 10 MG PO HS, (Reported) Entered as Reported by: EDISON PRESTON on 11/20/21 125 Review of Systems Review of Systems Constitutional: see HPI, malaise, weakness EENTM: see HPI, no symptoms reported Respiratory: see HPI, cough, phlegm, short of breath (chronic) Gastrointestinal: no symptoms reported, see HPI Genitourinary: no symptoms reported, see HPI Musculoskeletal: no symptoms reported, see HPI All Other Systems Reviewed Negative Unless Noted: Yes Past Phsfbww-Etgsop-Zfmlfc Hx Immunizations Up To Date Tetanus Booster (TDap): Unknown PED Vaccines UTD: No First/Initial COVID19 Vaccinat: NOV 2020 Second COVID19 Vaccination Jack: DEC 2020 Third COVID19 Vaccination Date: 2021 Seasonal Allergies Seasonal Allergies: Yes Past Medical History Surgery/Hospitalization HX: PROSTATE SURGERY, Pt recently had heart cath Surgeries: Yes (RIGHT EYELID BASAL CELL CANCER; HERNIA REPAIR X 4, PER PT ) Abdominal, Adenoidectomy, Cardiac, Eye Surgery, Orthopedic, Prostatectomy, Tonsillectomy Respiratory: Yes (O2 DEPENDENT AT 3L/NC CONTINUOUSLY;MULTIPLE EPISODES OF PNEUMONIA) Asthma, Pneumonia, Chronic Bronchitis, COPD, Emphysema Currently Using CPAP: No Currently Using BIPAP: No Cardiac: Yes Chronic Edema/Swelling, Coronary Artery Disease, High Cholesterol, Hypertension Neurological: Yes Dementia Reproductive Disorders: No Sexually Transmitted Disease: No HIV/AIDS: No Genitourinary: Yes (PROSTATE CANCER > 10 YEARS AGO) Prostate Problems, Kidney Stones Gastrointestinal: Yes (S/P HERNIA REPAIR X 4, PER PT) Abdominal Hernia, Gastroesophageal Reflux, Chronic Constipation, Polyps, Hiatal Hernia Musculoskeletal: Yes (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) Degenerate Disk Disease, Osteoporosis, Arthritis, Chronic Back Pain Endocrine: Yes Diabetes, Non-Insulin dep HEENT: Yes (R EYELID BASAL CELL CANCER;SINUSITIS; NOSEBLEEDS) Cataract Loss of Vision: Right Hearing Impairment: Denies Cancer: Yes (PROSTATE CANCER, BASAL CELL CANCER OF RIGHT EYE) Prostate, Skin Did You Recieve Any Treatments: Yes What Type of Treatment Did You: Surgical Intervention Psychosocial: Yes Anxiety, Depression Integumentary: Yes (SKIN CANCER; PRESSURE ULCERS OF BUTTOCKS/SACRUM, Chronic pruritis) Blood Disorders: No Adverse Reaction/Blood Tranf: No Family Medical History Reviewed Nursing Family Hx FH: breast cancer G8 SISTER Myocardial infarction 19 FATHER Heart Disease CHRONIC GENERALIZED WEAKNESS, [place] VERY POOR/VERY MINIMAL MOBILITY--HAS POWER CHAIR AND WALKER, WHICH HE HAS REFUSED TO USE AT HOME CHRONIC BILATERAL KNEE PAIN RIGHT EYELID BASAL 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 6.0oz. 113.346747we; 35.00 BMI Method:Estimated General Appearance: mild distress HEENT: normal ENT inspection, TMs normal, pharynx normal, other (NC in place and gauze to right nare, reports epitaxis earlier today. Erythema to right eye, chronic) Neck: limited range of motion (neck in flexed position with pad in place to support chin/neck) Respiratory: no respiratory distress, decreased breath sounds, rhonchi, wheezing Cardiovascular: normal peripheral pulses, regular rate, rhythm Gastrointestinal: normal bowel sounds, non tender, soft Extremities: no calf tenderness, normal capillary refill; No calf tenderness; pedal edema (3+) Neurologic/Psychiatric: no motor/sensory deficits, alert, normal mood/affect, oriented x 3 Skin: pallor; No rash Progress/Results/Core Measures Suspected Sepsis SIRS Temperature: Pulse: Respiratory Rate: Laboratory Tests 05/13/22 11:14: White Blood Count 10.4 Blood Pressure / Mean: Laboratory Tests 05/13/22 11:14: Creatinine 0.88, INR Comment 1.1, Platelet Count 219, Total Bilirubin 0.5 Results/Orders Lab Results Laboratory Tests Test 05/13/22 11:14 05/13/22 12:35 Range/Units White Blood Count 10.4 4.3-11.0 10^3/uL Red Blood Count 4.14 L 4.30-5.52 10^6/uL Hemoglobin 11.0 L 13.3-17.7 g/dL Hematocrit 35 L 40-54 % Mean Corpuscular Volume 84 80-99 fL Mean Corpuscular Hemoglobin 27 25-34 pg Mean Corpuscular Hemoglobin Concent 32 32-36 g/dL Red Cell Distribution Width 14.2 10.0-14.5 % Platelet Count 219 130-400 10^3/uL Mean Platelet Volume 9.7 9.0-12.2 fL Immature Granulocyte % (Auto) 1 % Neutrophils (%) (Auto) 66 42-75 % Lymphocytes (%) (Auto) 18 12-44 % Monocytes (%) (Auto) 12 0-12 % Eosinophils (%) (Auto) 3 0-10 % Basophils (%) (Auto) 1 0-10 % Neutrophils # (Auto) 6.8 1.8-7.8 10^3/uL Lymphocytes # (Auto) 1.9 1.0-4.0 10^3/uL Monocytes # (Auto) 1.3 H 0.0-1.0 10^3/uL Eosinophils # (Auto) 0.3 0.0-0.3 10^3/uL Basophils # (Auto) 0.1 0.0-0.1 10^3/uL Immature Granulocyte # (Auto) 0.1 0.0-0.1 10^3/uL Prothrombin Time 14.7 12.2-14.7 SEC INR Comment 1.1 0.8-1.4 Activated Partial Thromboplast Time 37 H 24-35 SEC Sodium Level 132 L 135-145 MMOL/L Potassium Level 4.3 3.6-5.0 MMOL/L Chloride Level 95 L 98-107 MMOL/L Carbon Dioxide Level 25 21-32 MMOL/L Anion Gap 12 5-14 MMOL/L Blood Urea Nitrogen 11 7-18 MG/DL Creatinine 0.88 0.60-1.30 MG/DL Estimat Glomerular Filtration Rate 84 BUN/Creatinine Ratio 13 Glucose Level 113 H 70-105 MG/DL Calcium Level 9.3 8.5-10.1 MG/DL Corrected Calcium 9.2 8.5-10.1 MG/DL Total Bilirubin 0.5 0.1-1.0 MG/DL Aspartate Amino Transf (AST/SGOT) 69 H 5-34 U/L Alanine Aminotransferase (ALT/SGPT) 41 0-55 U/L Alkaline Phosphatase 68 40-136 U/L C-Reactive Protein High Sensitivity 1.89 H 0.00-0.50 MG/DL B-Type Natriuretic Peptide 31.3 <100.0 PG/ML Total Protein 8.2 6.4-8.2 GM/DL Albumin 4.1 3.2-4.5 GM/DL Influenza Type A (RT-PCR) Not Detected Not Detecte Influenza Type B (RT-PCR) Not Detected Not Detecte SARS-CoV-2 RNA (RT-PCR) Not Detected Not Detecte Urine Color YELLOW Urine Clarity CLEAR Urine pH 7.0 5-9 Urine Specific [place] 1.010 L 1.016-1.022 Urine Protein NEGATIVE NEGATIVE Urine Glucose (UA) NEGATIVE NEGATIVE Urine Ketones NEGATIVE NEGATIVE Urine Nitrite NEGATIVE NEGATIVE Urine Bilirubin NEGATIVE NEGATIVE Urine Urobilinogen 0.2 < = 1.0 MG/DL Urine Leukocyte Esterase NEGATIVE NEGATIVE Urine RBC (Auto) 2+ H NEGATIVE Urine RBC 25-50 H /HPF Urine WBC NONE /HPF Urine Crystals NONE /LPF Urine Bacteria NEGATIVE /HPF Urine Casts NONE /LPF Urine Mucus NEGATIVE /LPF Urine Culture Indicated NO My Orders Orders - DOMINGA TOLEDO [facility] [place] (05/13/22 11:16) Cbc With Automated Diff (05/13/22 11:16) Comprehensive Metabolic Panel (05/13/22 11:16) Hs C Reactive Protein (05/13/22 11:16) Protime With Inr (05/13/22 11:16) Partial Thromboplastin Time (05/13/22 11:16) Ua Culture If Indicated (05/13/22 11:16) Influenza A And B By Pcr (05/13/22 11:16) Covid 19 Inhouse Test (05/13/22 11:16) Chest 1 View, Ap/Pa Only (05/13/22 11:16) Sputum Culture (05/13/22 11:25) Ed Iv/Invasive Line Start (05/13/22 12:16) Ns Iv 500 Ml (Sodium Chloride 0.9%) (05/13/22 12:30) Medications Given in ED Current Medications Medications Dose Ordered Sig/Bernice Route Start Time Stop Time Status Last Admin Dose Admin Sodium Chloride 500 ml @ 0 mls/hr Q0M ONCE IV 05/13/22 12:30 05/13/22 12:31 DC 05/13/22 12:37 0 MLS/HR Vital Signs/I&O 05/13/22 05/13/22 11:09 11:09 Temp 36.6 Pulse 81 Resp 16 B/P (MAP) 135/72 (93) Pulse Ox 95 O2 Delivery Nasal Cannula Nasal Cannula O2 Flow Rate 3.00 Capillary Refill : Progress Note : Time: 11:09 Progress Note patient assessed, will obtain labs, cxr, and covid/flu. 1200 awaiting urine sample, COVID and flu negative, chest x-ray shows no acute findings or pneumonia. 1230 patient requires moderate assistance of 2 people for transfers but is able to ambulate with assistance to commode. UA obtained. 1300 discussed findings with patient, probable viral upper respiratory infection. Patient denies any other complaints. Discharge planning and return precautions reviewed. Patient's family has been notified and will provide transport to home. Diagnostic Imaging Diagonstic Imaging: Xray Plain Films/CT/US/NM/MRI: chest Comments NAME: ISABELA ESPINOZA [facility] REC#: [id number] PT STATUS: REG ER : 1935 PHYSICIAN: DOMINGA TOLEDO ADMIT DATE: 05/13/22/ER Draft Date of Exam:05/13/22 CHEST 1 VIEW, AP/PA ONLY INDICATION: Productive cough. COMPARISON: 01/30/2022. FINDINGS: Very slight bibasilar atelectasis improved from the prior. The lungs are otherwise clear. There is no failure, effusion or pneumothorax. There is a retrocardiac hiatal hernia chronic. IMPRESSION: Trace atelectasis at the bases is improved from prior with no adverse interval development. Dictated on workstation # [id number] Dict: 05/13/22 1128 Trans: 05/13/22 1130 [id number] Interpreted by: CASSIE IVEY Electronically signed by: Reviewed: Reviewed by Me Departure Impression Primary Impression: Cough Qualified Codes: R05.1 - Acute cough Additional Impression: Viral URI with cough Disposition: 01 HOME, SELF-CARE Condition: Improved Departure-Patient Inst. Decision time for Depature: 12:50 Referrals: TAYLOR DURAND MD (PCP/Family) Primary Care Physician Patient Instructions: Cough, Adult (DC), Viral Upper Respiratory Infection, Adult (DC) Add. Discharge Instructions: Use [id number] Mucinex twice daily with a full glass of water Continue all home medications as prescribed. Continue to elevate lower extremities for swelling. Follow-up with your primary care provider in 2 to 3 days, sooner if symptoms or not improving or worsen. Use your inhaler every 4 hours as prescribed. Return to the emergency department for new, urgent healthcare needs. All discharge instructions reviewed with patient and/or family. Voiced understanding. DOMINGA TOLEDO May 13, 2022 11:22
[2022-05-13 11:24] LABS: BASOPHILS # (AUTO) 0.1 10^3/uL (0.0-0.1); BASOPHILS % (AUTO) 1 % (0-10); EOSINOPHILS # (AUTO) 0.3 10^3/uL (0.0-0.3); EOSINOPHILS % (AUTO) 3 % (0-10); HEMATOCRIT 35 % (40-54); LYMPHOCYTES # (AUTO) 1.9 10^3/uL (1.0-4.0); LYMPHOCYTES % (AUTO) 18 % (12-44); MEAN CORPUSCULAR HEMOGLOBIN 27 pg (25-34); MEAN CORPUSCULAR HGB CONC 32 g/dL (32-36); MEAN CORPUSCULAR VOLUME 84 fL (80-99); MEAN PLATELET VOLUME 9.7 fL (9.0-12.2); MONOCYTES # (AUTO) 1.3 10^3/uL (0.0-1.0); MONOCYTES % (AUTO) 12 % (0-12); NEUTROPHILS # (AUTO) 6.8 10^3/uL (1.8-7.8); NEUTROPHILS % (AUTO) 66 % (42-75); PLATELET COUNT 219 10^3/uL (130-400); WHITE BLOOD COUNT 10.4 10^3/uL (4.3-11.0)
[2022-05-13 11:31] LABS: ALBUMIN 4.1 GM/DL (3.2-4.5); POTASSIUM 4.3 MMOL/L (3.6-5.0)
--- NOTE | 2022-05-13 11:31 | Diagnostic Imaging Report ---
INDICATION: Productive cough. COMPARISON: 01/30/2022. FINDINGS: Very slight bibasilar atelectasis improved from the prior. The lungs are otherwise clear. There is no failure, effusion or pneumothorax. There is a retrocardiac hiatal hernia chronic. IMPRESSION: Trace atelectasis at the bases is improved from prior with no adverse interval development. Dictated by: Dictated on workstation # [id number]
[2022-05-13 11:33] LABS: CALCIUM 9.3 MG/DL (8.5-10.1)
[2022-05-13 11:34] LABS: TOTAL PROTEIN 8.2 GM/DL (6.4-8.2)
[2022-05-13 11:36] LABS: BILIRUBIN,TOTAL 0.5 MG/DL (0.1-1.0)
[2022-05-13 11:38] LABS: CREATININE SERUM 0.88 MG/DL (0.60-1.30)
[2022-05-13 11:43] LABS: INR 1.1 (0.8-1.4); PROTHROMBIN TIME PATIENT 14.7 SEC (12.2-14.7)
[2022-05-13] MEDS ORDERED: NS IV 500 ML 500 ML IV ONE (12:30)
[2022-05-13 12:42] LABS: BILIRUBIN,URINE NEGATIVE (NEGATIVE); CLARITY,URINE CLEAR; COLOR,URINE YELLOW; GLUCOSE, URINE (UA) NEGATIVE (NEGATIVE); KETONES,URINE NEGATIVE (NEGATIVE); LEUKOCYTE ESTERASE ,URINE NEGATIVE (NEGATIVE); NITRITE,URINE NEGATIVE (NEGATIVE); PROTEIN,URINE NEGATIVE (NEGATIVE)
[2022-05-13 13:09] LABS: BACTERIA,URINE NEGATIVE /HPF; RBC,URINE 25-50 /HPF
[2022-05-13 14:06] VITALS: BP 128/85
== END 2022-05-13 14:06 | disposition home or self-care (01) ==
LOC: EDUNIT# 11:11 → ER 11:13
DX: J06.9 Acute upper respiratory infection, unspecified (principal); J43.9 Emphysema, unspecified; Z99.81 Dependence on supplemental oxygen; Z20.822 Contact with and (suspected) exposure to COVID-19
CPT/HCPCS: 36415; 71045; 80053; 81000; 83880; 85025; 85610; 85730; 86141; 87070; 87077; 87205; 87636

== ENCOUNTER 2022-05-18 17:00 | Emergency (ER) | payer MEDICARE, MEDICAID ==
--- NOTE | 2022-05-18 17:17 | ED Cough/URI ---
General Stated Complaint: COUGH Source: patient, EMS Exam Limitations: no limitations (GRIFFIN CASTRO DO) History of Present Illness Date Seen by Provider: May 18, 2022 Time Seen by Provider: 17:04 Initial Comments 86-year-old male on 3 L of oxygen via nasal cannula chronically presents to the emergency department via EMS for shortness of breath. He states he been short of breath for 9 years but the last 2 days its been worse. He has a productive cough and "rattling in my chest." He denies any chest pain. No fevers but has had chills. He has diffuse body aches as well. He states his legs have been hurting for the last couple of days bilaterally. He has chronic edema which she states is unchanged. He is unable to walk secondary to pain in his legs currently. No swelling in his legs, recent long distance travel. He is relatively immobile at home. (GRIFFIN CASTRO DO) Allergies and Home Medications Allergies Coded Allergies: Serotonin 5HT-3 Antagonists (Unverified Allergy, Unknown, 11/25/17) Tricyclic Compounds (Unverified Allergy, Unknown, 11/25/17) codeine (Verified Allergy, Unknown, pt has rec Morphine in the past, 11/20/21) hydrocodone (Unverified Allergy, Unknown, 10/16/15) aspirin (Unverified Adverse Reaction, Mild, STOMACH IRRITATION, 11/25/17) Patient Home Medication List Home Medication List Reviewed: Yes (GRIFFIN CASTRO DO) Albuterol Sulfate (Albuterol Sulfate) 2.5 Mg/3 Ml (0.083 %) Vial.neb, 2.5 MG NEB Q6H PRN for SHORTNESS OF BREATH, (Reported) Entered as Reported by: HILARY APPIAH on 04/23/19 1223 Amlodipine Besylate (Amlodipine Besylate) 10 Mg Tablet, 10 MG PO DAILY, (Reported) Entered as Reported by: HILARY APPIAH on 12/27/15 0851 Clonazepam (Clonazepam) 1 Mg Tablet, 1 MG PO TID, (Reported) Entered as Reported by: HILARY APPIAH on 12/27/15 0851 Donepezil HCl (Donepezil HCl) 5 Mg Tablet, 5 MG PO HS, (Reported) Entered as Reported by: EDISON PRESTON on 04/06/21 112 Doxazosin Mesylate (Doxazosin Mesylate) 4 Mg Tablet, 4 MG PO 1700, (Reported) Entered as Reported by: CARIN PRINGLE on 05/27/15 1136 Hydrochlorothiazide (Hydrochlorothiazide) 25 Mg Tablet, 25 MG PO DAILY, (Reported) Entered as Reported by: EDISON PRESTON on 04/06/21 112 Loratadine (Loratadine) 10 Mg Tablet, 10 MG PO DAILY, (Reported) Entered as Reported by: HILARY APPIAH on 04/23/19 1009 Metformin HCl (Metformin HCl) 500 Mg Tablet, 500 MG PO DAILY Prescribed by: JUSTIN SAINI on 01/30/22 1051 Mirabegron (Myrbetriq) 25 Mg Tab.er.24h, 25 MG PO 1700, (Reported) Entered as Reported by: KRYSTIN NEWMAN on 01/26/17 180 Montelukast Sodium (Montelukast Sodium) 10 Mg Tablet, 10 MG PO HS, (Reported) Entered as Reported by: EDISON PRESTON on 11/20/21 125 Multivitamin (Multivitamin) 1 Each Tablet, 1 EACH PO DAILY, (Reported) Entered as Reported by: EDISON PRESTON on 11/20/21 125 Pregabalin (Pregabalin) 100 Mg Capsule, 100 MG PO TID, (Reported) Entered as Reported by: EDISON PRESTON on 04/06/21 112 Rivastigmine (Rivastigmine) 1 Each Patch.td24, 4.6 MG TD DAILY, (Reported) Entered as Reported by: KRYSTIN NEWMAN on 01/26/171801 Triamcinolone Acet (Triamcinolone Acetonide 0.1% Cream) 15 Gm Cr, 1 APPLIC TOP BID PRN for RASH, (Reported) Entered as Reported by: KRYSTIN NEWMAN on 01/26/171801 Vilazodone HCl (Vilazodone HCl) 10 Mg Tablet, 10 MG PO HS, (Reported) Entered as Reported by: EDISON PRESTON on 11/20/21 125 Review of Systems Review of Systems Constitutional: chills EENTM: no symptoms reported Respiratory: cough, short of breath Cardiovascular: no symptoms reported Gastrointestinal: no symptoms reported Genitourinary: no symptoms reported Musculoskeletal: other (Bilateral leg pain) Skin: no symptoms reported Psychiatric/Neurological: No Symptoms Reported Hematologic/Lymphatic: No Symptoms Reported Immunological/Allergic: no symptoms reported (GRIFFIN CASTRO DO) Past Tsjhriv-Xztzvl-Tiltqn Hx Patient Social History Tobacco Use?: No Use of E-Cig and/or Vaping dev: No Substance use?: No Alcohol Use?: No (GRIFFIN CASTRO DO) Immunizations Up To Date Tetanus Booster (TDap): Unknown PED Vaccines UTD: No First/Initial COVID19 Vaccinat: NOV 2020 Second COVID19 Vaccination Jack: DEC 2020 Third COVID19 Vaccination Date: 2021 (GRIFFIN CASTRO DO) Seasonal Allergies Seasonal Allergies: Yes (GRIFFIN CASTRO DO) Past Medical History Surgery/Hospitalization HX: PROSTATE SURGERY, Pt recently had heart cath Surgeries: Yes (RIGHT EYELID BASAL CELL CANCER; HERNIA REPAIR X 4, PER PT ) Abdominal, Adenoidectomy, Cardiac, Eye Surgery, Orthopedic, Prostatectomy, Tonsillectomy Respiratory: Yes (O2 DEPENDENT AT 3L/NC CONTINUOUSLY;MULTIPLE EPISODES OF PNEUMONIA) Asthma, Pneumonia, Chronic Bronchitis, COPD, Emphysema Currently Using CPAP: No Currently Using BIPAP: No Cardiac: Yes Chronic Edema/Swelling, Coronary Artery Disease, High Cholesterol, Hypertension Neurological: Yes Dementia Reproductive Disorders: No Sexually Transmitted Disease: No HIV/AIDS: No Genitourinary: Yes (PROSTATE CANCER > 10 YEARS AGO) Prostate Problems, Kidney Stones Gastrointestinal: Yes (S/P HERNIA REPAIR X 4, PER PT) Abdominal Hernia, Gastroesophageal Reflux, Chronic Constipation, Polyps, Hiatal Hernia Musculoskeletal: Yes (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) Degenerate Disk Disease, Osteoporosis, Arthritis, Chronic Back Pain Endocrine: Yes Diabetes, Non-Insulin dep HEENT: Yes (R EYELID BASAL CELL CANCER;SINUSITIS; NOSEBLEEDS) Cataract Loss of Vision: Right Hearing Impairment: Denies Cancer: Yes (PROSTATE CANCER, BASAL CELL CANCER OF RIGHT EYE) Prostate, Skin Did You Recieve Any Treatments: Yes What Type of Treatment Did You: Surgical Intervention Psychosocial: Yes Anxiety, Depression Integumentary: Yes (SKIN CANCER; PRESSURE ULCERS OF BUTTOCKS/SACRUM, Chronic pruritis) Blood Disorders: No Adverse Reaction/Blood Tranf: No (GRIFFIN CASTRO DO) Family Medical History Reviewed Nursing Family Hx (GRIFFIN CASTRO DO) FH: breast cancer G8 SISTER Myocardial infarction 19 FATHER Heart Disease CHRONIC GENERALIZED WEAKNESS, [place] VERY POOR/VERY MINIMAL MOBILITY--HAS POWER CHAIR AND WALKER, WHICH HE HAS REFUSED TO USE AT HOME CHRONIC BILATERAL KNEE PAIN RIGHT EYELID BASAL 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 6.0oz. [id number]; 35.00 BMI Method:Estimated General Appearance: WD/WN, no apparent distress HEENT: normal ENT inspection, pharynx normal Neck: non-tender, full range of motion, supple, normal inspection Respiratory: chest non-tender, no respiratory distress, no accessory muscle use, rhonchi Cardiovascular: regular rate, rhythm, no murmur Gastrointestinal: normal bowel sounds, non tender, soft, no organomegaly Extremities: normal range of motion, non-tender, normal inspection, other (3+ pitting edema bilateral lower extremity) Neurologic/Psychiatric: alert, oriented x 3 Skin: warm/dry, other (Chronic venous stasis changes bilateral lower e xtremities) (GRIFFIN CASTRO DO) Progress/Results/Core Measures Suspected Sepsis SIRS Temperature: Pulse: Respiratory Rate: Blood Pressure / Mean: (GRIFFIN CASTRO DO) Results/Orders Lab Results Laboratory Tests Test 05/18/22 17:24 05/18/22 17:26 Range/Units White Blood Count 9.3 4.3-11.0 10^3/uL Red Blood Count 3.81 L 4.30-5.52 10^6/uL Hemoglobin 10.2 L 13.3-17.7 g/dL Hematocrit 32 L 40-54 % Mean Corpuscular Volume 85 80-99 fL Mean Corpuscular Hemoglobin 27 25-34 pg Mean Corpuscular Hemoglobin Concent 32 32-36 g/dL Red Cell Distribution Width 14.1 10.0-14.5 % Platelet Count 212 130-400 10^3/uL Mean Platelet Volume 9.5 9.0-12.2 fL Immature Granulocyte % (Auto) 0 % Neutrophils (%) (Auto) 68 42-75 % Lymphocytes (%) (Auto) 15 12-44 % Monocytes (%) (Auto) 12 0-12 % Eosinophils (%) (Auto) 4 0-10 % Basophils (%) (Auto) 0 0-10 % Neutrophils # (Auto) 6.4 1.8-7.8 10^3/uL Lymphocytes # (Auto) 1.4 1.0-4.0 10^3/uL Monocytes # (Auto) 1.1 H 0.0-1.0 10^3/uL Eosinophils # (Auto) 0.3 0.0-0.3 10^3/uL Basophils # (Auto) 0.0 0.0-0.1 10^3/uL Immature Granulocyte # (Auto) 0.0 0.0-0.1 10^3/uL Sodium Level 134 L 135-145 MMOL/L Potassium Level 4.0 3.6-5.0 MMOL/L Chloride Level 97 L 98-107 MMOL/L Carbon Dioxide Level 24 21-32 MMOL/L Anion Gap 13 5-14 MMOL/L Blood Urea Nitrogen 12 7-18 MG/DL Creatinine 1.04 0.60-1.30 MG/DL Estimat Glomerular Filtration Rate 70 BUN/Creatinine Ratio 12 Glucose Level 206 H 70-105 MG/DL Calcium Level 8.8 8.5-10.1 MG/DL Corrected Calcium 8.9 8.5-10.1 MG/DL Total Bilirubin 0.2 0.1-1.0 MG/DL Aspartate Amino Transf (AST/SGOT) 62 H 5-34 U/L Alanine Aminotransferase (ALT/SGPT) 42 0-55 U/L Alkaline Phosphatase 69 40-136 U/L B-Type Natriuretic Peptide 24.3 <100.0 PG/ML Total Protein 7.7 6.4-8.2 GM/DL Albumin 3.9 3.2-4.5 GM/DL Influenza Type A (RT-PCR) Not Detected Not Detecte Influenza Type B (RT-PCR) Not Detected Not Detecte SARS-CoV-2 RNA (RT-PCR) Not Detected Not Detecte (THOMAS LUNDBERG MD) Vital Signs/I&O Capillary Refill : (GRIFFIN CASTRO DO) Progress Note #1: Time: 18:19 Progress Note Patient care assumed at shift change with labs pending. CXR reviewed and at Patient's baseline. Progress Note #2: Time: 18:28 Progress Note Patient seen and examined by me, 86-year-old with complaint of pain to the bilateral lower extremities secondary to edema. Care taken over from previous provider, Dr. Davison. Evaluation today includes physical exam, basic labs, CBC, chemistry, BNP, chest x-ray. Patient is chronically on 3 L of oxygen per nasal cannula currently satting between 90 and 93%. Differential diagnosis includes volume overload, congestive heart failure exacerbation, pneumonia, bronchitis, COVID flu. Patient's labs have been reviewed and are at baseline, his CBC shows hemoglobin at 10 with normal white count, no left shift. Chemistry shows mild hyperglycemia. BMP is in the 20s. Chest x-ray shows atelectasis versus increasing possible infiltrate in the bases. He is afebrile. Exhibiting no increased work of breathing or respiratory distress. He is comfortable at this time. I discussed with him plan of care to include taking some Tylenol for his lower extremity edema. I did mention the possibility of intermediate placement. He states he does not want to go to the intermediate. At this point he has no clinical or objective findings to warrant admission inpatient or observation. He is amenable to a dose of Tylenol. Request that I call his daughter for transport home. (THOMAS LUNDBERG MD) Diagnostic Imaging Diagonstic Imaging: Xray Plain Films/CT/US/NM/MRI: chest Comments [facility]. [place], [place] NAME: ISABELA ESPINOZA [facility] REC#: [id number] PT STATUS: REG ER : 1935 PHYSICIAN: GRIFFIN CASTRO DO ADMIT DATE: 05/18/22/ER Draft Date of Exam:05/18/22 CHEST 1 VIEW, AP/PA ONLY CLINICAL INDICATION: Patient complains of cough. EXAM: Portable chest x-ray upright view. COMPARISON: Chest x-ray dated 05/13/2022. FINDINGS: Lungs/pleura: There is curvilinear and mild amorphous airspace opacities involving both lung bases which may represent atelectasis, but superimposed infiltrates cannot be completely excluded. These findings have increased in the interim. There is no pneumothorax. There is no pleural effusion. Mediastinum: Small hiatal hernia is seen. Pulmonary vasculature: Unremarkable. Heart: Unremarkable. Bones/extrathoracic soft tissue: There are degenerative spurs involving the thoracic spine. IMPRESSION: There is interval progression of mild bibasilar atelectasis and/or infiltrates. Dictated on workstation # [id number] Dict: 05/18/22 1735 Trans: 05/18/22 1741 [id number] Interpreted by: ASHLEY RESENDEZ MD Electronically signed by: (THOMAS LUNDBERG MD) Departure Impression Primary Impression: Bilateral lower extremity pain Additional Impression: Bilateral lower extremity edema Disposition: HOME, SELF-CARE Condition: Stable Departure-Patient Inst. Decision time for Depature: 18:32 (THOMAS LUNDBERG MD) Referrals: TAYLOR DURAND MD (PCP/Family) Primary Care Physician Patient Instructions: Swelling Add. Discharge Instructions: You can take regular strength tylenol, 2 tablets every 6 hours for pain. Be sure and continue to take your normal daily medications as prescribed. You should call your primary care doctor tomorrow, it may be time to seriously consider Intermediate placement for help with your activities of daily living. If you have any new, emergent or concerning symptoms please come back to the Emergency Department for re-evaluation. GRIFFIN CASTRO DO May 18, 2022 17:17 THOMAS LUNDBERG MD May 18, 2022 18:20
[2022-05-18 17:34] LABS: BASOPHILS % (AUTO) 0 % (0-10); EOSINOPHILS # (AUTO) 0.3 10^3/uL (0.0-0.3); EOSINOPHILS % (AUTO) 4 % (0-10); HEMATOCRIT 32 % (40-54); HEMOGLOBIN 10.2 g/dL (13.3-17.7); LYMPHOCYTES # (AUTO) 1.4 10^3/uL (1.0-4.0); LYMPHOCYTES % (AUTO) 15 % (12-44); MEAN CORPUSCULAR HEMOGLOBIN 27 pg (25-34); MEAN CORPUSCULAR HGB CONC 32 g/dL (32-36); MEAN CORPUSCULAR VOLUME 85 fL (80-99); MEAN PLATELET VOLUME 9.5 fL (9.0-12.2); MONOCYTES # (AUTO) 1.1 10^3/uL (0.0-1.0); MONOCYTES % (AUTO) 12 % (0-12); NEUTROPHILS # (AUTO) 6.4 10^3/uL (1.8-7.8); NEUTROPHILS % (AUTO) 68 % (42-75); PLATELET COUNT 212 10^3/uL (130-400); WHITE BLOOD COUNT 9.3 10^3/uL (4.3-11.0)
[2022-05-18 17:42] LABS: ALBUMIN 3.9 GM/DL (3.2-4.5)
--- NOTE | 2022-05-18 17:42 | Diagnostic Imaging Report ---
CLINICAL INDICATION: Patient complains of cough. EXAM: Portable chest x-ray upright view. COMPARISON: Chest x-ray dated 05/13/2022. FINDINGS: Lungs/pleura: There is curvilinear and mild amorphous airspace opacities involving both lung bases which may represent atelectasis, but superimposed infiltrates cannot be completely excluded. These findings have increased in the interim. There is no pneumothorax. There is no pleural effusion. Mediastinum: Small hiatal hernia is seen. Pulmonary vasculature: Unremarkable. Heart: Unremarkable. Bones/extrathoracic soft tissue: There are degenerative spurs involving the thoracic spine. IMPRESSION: There is interval progression of mild bibasilar atelectasis and/or infiltrates. Dictated by: Dictated on workstation # [id number]
[2022-05-18 17:43] LABS: CALCIUM 8.8 MG/DL (8.5-10.1)
[2022-05-18 17:45] LABS: TOTAL PROTEIN 7.7 GM/DL (6.4-8.2)
[2022-05-18 17:46] LABS: BILIRUBIN,TOTAL 0.2 MG/DL (0.1-1.0)
[2022-05-18 17:48] LABS: CREATININE SERUM 1.04 MG/DL (0.60-1.30)
[2022-05-18] MEDS ORDERED: ACETAMINOPHEN 500 MG TAB (TYLENOL) PO ONE (18:45)
[2022-05-18 18:52] VITALS: BP 147/70
== END 2022-05-18 19:19 | disposition home or self-care (01) ==
LOC: EDUNIT# 17:00 → ER 17:01
DX: M79.605 Pain in left leg (principal); M79.604 Pain in right leg; R60.0 Localized edema; E11.65 Type 2 diabetes mellitus with hyperglycemia; J43.9 Emphysema, unspecified; Z99.81 Dependence on supplemental oxygen; Z88.6 Allergy status to analgesic agent; Z20.822 Contact with and (suspected) exposure to COVID-19
CPT/HCPCS: 36415; 71045; 80053; 83880; 85025; 87636; 99283

== ENCOUNTER → 2022-05-23 | Outpatient (CLI) | payer MEDICARE, MEDICAID | LOC: WOUNDCARE 14:04 | PROVIDERS: ATTEND Family Medicine | DX: L98.492 Non-pressure chronic ulcer of skin of other sites with fat layer exposed (principal); L98.412 Non-pressure chronic ulcer of buttock with fat layer exposed; L24.A2 Irritant contact dermatitis due to fecal, urinary or dual incontinence; B37.2 Candidiasis of skin and nail; E11.622 Type 2 diabetes mellitus with other skin ulcer; D46.4 Refractory anemia, unspecified; E11.65 Type 2 diabetes mellitus with hyperglycemia; E11.52 Type 2 diabetes mellitus with diabetic peripheral angiopathy with gangrene | CPT/HCPCS: 36415; 83036; 99213 ==

== ENCOUNTER → 2022-05-30 | Outpatient (CLI) | payer MEDICARE, MEDICAID | LOC: WOUNDCARE 13:24 | PROVIDERS: ATTEND Family Medicine | DX: L98.492 Non-pressure chronic ulcer of skin of other sites with fat layer exposed (principal); L98.412 Non-pressure chronic ulcer of buttock with fat layer exposed; L24.A2 Irritant contact dermatitis due to fecal, urinary or dual incontinence; B37.2 Candidiasis of skin and nail; E11.622 Type 2 diabetes mellitus with other skin ulcer; D46.4 Refractory anemia, unspecified; E11.65 Type 2 diabetes mellitus with hyperglycemia | CPT/HCPCS: 99213 ==

== ENCOUNTER → 2022-06-06 | Outpatient (CLI) | payer MEDICARE, MEDICAID | LOC: WOUNDCARE 13:23 | PROVIDERS: ATTEND Family Medicine | DX: I96 Gangrene, not elsewhere classified (principal); L98.492 Non-pressure chronic ulcer of skin of other sites with fat layer exposed; L98.412 Non-pressure chronic ulcer of buttock with fat layer exposed; L24.A2 Irritant contact dermatitis due to fecal, urinary or dual incontinence; B37.2 Candidiasis of skin and nail; E11.622 Type 2 diabetes mellitus with other skin ulcer; E11.65 Type 2 diabetes mellitus with hyperglycemia; D46.4 Refractory anemia, unspecified | CPT/HCPCS: 17250 ==

== ENCOUNTER 2022-06-17 15:57 | Inpatient (IN) | payer MEDICARE, MEDICAID ==
[~2022-06-17] VITALS: Ht 182 cm; Wt 119.6 kg
[2022-06-17] MEDS ORDERED: NS IV 1000 ML 1,000 ML IV SCH (16:15)
[2022-06-17] MEDS ORDERED: CEFEPIME INJECTION 1,000 MG in NS (IVPB) 50 ML IV ONE (16:15)
--- NOTE | 2022-06-17 16:39 | Diagnostic Imaging Report ---
INDICATION: Cough. COMPARISON: 05/18/2022. FINDINGS: There is poor inspiratory volume with elevation of both diaphragms, greater right, crowding the lung markings with increased perihilar and basilar atelectasis. Component of worsening venous congestion could not be excluded. There is no pneumothorax. IMPRESSION: Very poor inspiratory volume. This is essentially an expiratory film with perihilar and basilar atelectasis crowding the lung markings and a suggestion of venous congestion. Dictated by: Dictated on workstation # [id number]
[2022-06-17 16:41] LABS: BASOPHILS # (AUTO) 0.1 10^3/uL (0.0-0.1); BASOPHILS % (AUTO) 1 % (0-10); EOSINOPHILS # (AUTO) 0.5 10^3/uL (0.0-0.3); EOSINOPHILS % (AUTO) 5 % (0-10); HEMATOCRIT 33 % (40-54); HEMOGLOBIN 10.1 g/dL (13.3-17.7); LYMPHOCYTES % (AUTO) 24 % (12-44); MEAN CORPUSCULAR HEMOGLOBIN 27 pg (25-34); MEAN CORPUSCULAR HGB CONC 31 g/dL (32-36); MEAN CORPUSCULAR VOLUME 87 fL (80-99); MEAN PLATELET VOLUME 9.7 fL (9.0-12.2); MONOCYTES % (AUTO) 12 % (0-12); NEUTROPHILS # (AUTO) 4.8 10^3/uL (1.8-7.8); NEUTROPHILS % (AUTO) 57 % (42-75); PLATELET COUNT 231 10^3/uL (130-400); WHITE BLOOD COUNT 8.4 10^3/uL (4.3-11.0)
[2022-06-17 16:51] LABS: ALBUMIN 3.9 GM/DL (3.2-4.5)
[2022-06-17 16:52] LABS: CHLORIDE 103 MMOL/L (98-107); INR 1.1 (0.8-1.4); POTASSIUM 4.1 MMOL/L (3.6-5.0); PROTHROMBIN TIME PATIENT 14.8 SEC (12.2-14.7); SODIUM 138 MMOL/L (135-145)
[2022-06-17 16:54] LABS: GLUCOSE 132 MG/DL (70-105); TOTAL PROTEIN 7.7 GM/DL (6.4-8.2)
[2022-06-17 16:55] LABS: CARBON DIOXIDE 23 MMOL/L (21-32)
[2022-06-17 16:56] LABS: BILIRUBIN,TOTAL 0.3 MG/DL (0.1-1.0)
--- NOTE | 2022-06-17 16:56 | ED General ---
General Chief Complaint: Respiratory Problems Stated Complaint: PNEUMONIA Nursing Triage Note: PT ARRIVED PER EMS FROM HOME. PT STATES WAS SEEN BY [facility] YESTERDAY AND THEY CALLED HIM TODAY TO SAY HE HAD PNEM AND TO GO TO HOSP. PT STATES HAS BEEN SICK FOR A WEEK W COUGH AND DIARRHEA. PT STATES ALSO HAS SORETHROAT Source of Information: Patient (GIVES MUCH INCONSISTENT INFORMATION), Old Records History of Present Illness Date Seen by Provider: Jun 17, 2022 Time Seen by Provider: 15:59 Initial Comments PT ARRIVES VIA EMS FROM HOME PT STATES THAT HE HAS BEEN SICK FOR 1 WEEK WITH COUGH AND DIARRHEA STATES HE HAD FEVER OF "103" A WEEK AGO, NO FEVER SINCE THEN STATES HE IS "NOT BETTER" FIRST HE STATES THAT HE HAS ONLY BEEN SICK A WEEK, AND HE WAS SEEN ONE TIME AND WAS PUT ON AN UNKNOWN ANTIBIOTIC. HE STATES HE IS STILL TAKEN THE ANTIBIOTIC AND TOOK ONE THIS MORNING. Allergies and Home Medications Allergies Coded Allergies: Serotonin 5HT-3 Antagonists (Unverified Allergy, Unknown, 11/25/17) Tricyclic Compounds (Unverified Allergy, Unknown, 11/25/17) codeine (Verified Allergy, Unknown, pt has rec Morphine in the past, 11/20/21) hydrocodone (Unverified Allergy, Unknown, 10/16/15) aspirin (Unverified Adverse Reaction, Mild, STOMACH IRRITATION, 11/25/17) Patient Home Medication List Albuterol Sulfate (Albuterol Sulfate) 2.5 Mg/3 Ml (0.083 %) Vial.neb, 2.5 MG NEB Q6H PRN for SHORTNESS OF BREATH, (Reported) Entered as Reported by: HILARY APPIAH on 04/23/19 1223 Amlodipine Besylate (Amlodipine Besylate) 10 Mg Tablet, 10 MG PO DAILY, (Reported) Entered as Reported by: HILARY APPIAH on 12/27/15 0851 Clonazepam (Clonazepam) 1 Mg Tablet, 1 MG PO TID, (Reported) Entered as Reported by: HILARY APPIAH on 12/27/15 0851 Donepezil HCl (Donepezil HCl) 5 Mg Tablet, 5 MG PO HS, (Reported) Entered as Reported by: EDISON PRESTON on 04/06/21 1126 Doxazosin Mesylate (Doxazosin Mesylate) 4 Mg Tablet, 4 MG PO 1700, (Reported) Entered as Reported by: CARIN PRINGLE on 05/27/15 1136 Hydrochlorothiazide (Hydrochlorothiazide) 25 Mg Tablet, 25 MG PO DAILY, (Reported) Entered as Reported by: EDISON PRESTON on 04/06/21 1126 Loratadine (Loratadine) 10 Mg Tablet, 10 MG PO DAILY, (Reported) Entered as Reported by: HILARY APPIAH on 04/23/19 1009 Metformin HCl (Metformin HCl) 500 Mg Tablet, 500 MG PO DAILY Prescribed by: JUSTIN SAINI on 01/30/22 1051 Mirabegron (Myrbetriq) 25 Mg Tab.er.24h, 25 MG PO 1700, (Reported) Entered as Reported by: KRYSTIN NEWMAN on 01/26/17 180 Montelukast Sodium (Montelukast Sodium) 10 Mg Tablet, 10 MG PO HS, (Reported) Entered as Reported by: EDISON PRESTON on 11/20/21 125 Multivitamin (Multivitamin) 1 Each Tablet, 1 EACH PO DAILY, (Reported) Entered as Reported by: EDISON PRESTON on 11/20/21 125 Pregabalin (Pregabalin) 100 Mg Capsule, 100 MG PO TID, (Reported) Entered as Reported by: EDISON PRESTON on 04/06/21 112 Rivastigmine (Rivastigmine) 1 Each Patch.td24, 4.6 MG TD DAILY, (Reported) Entered as Reported by: KRYSTIN NEWMAN on 01/26/17 180 Triamcinolone Acet (Triamcinolone Acetonide 0.1% Cream) 15 Gm Cr, 1 APPLIC TOP BID PRN for RASH, (Reported) Entered as Reported by: KRYSTIN NEWMAN on 01/26/17 180 Vilazodone HCl (Vilazodone HCl) 10 Mg Tablet, 10 MG PO HS, (Reported) Entered as Reported by: EDISON PRESTON on 11/20/21 125 Past Guthypa-Ypduwp-Fqbuwq Hx Patient Social History Tobacco Use?: No Substance use?: No Alcohol Use?: No Pt feels they are or have been: No Immunizations Up To Date Tetanus Booster (TDap): Unknown PED Vaccines UTD: No Influenza Vaccine Up-to-Date: Yes; Up-to-Date First/Initial COVID19 Vaccinat: NOV 2020 Second COVID19 Vaccination Jack: DEC 2020 Third COVID19 Vaccination Date: 2021 Seasonal Allergies Seasonal Allergies: Yes Past Medical History Surgery/Hospitalization HX: PROSTATE SURGERY, Pt recently had heart cath Surgeries: Yes (RIGHT EYELID BASAL CELL CANCER; HERNIA REPAIR X 4, PER PT ) Abdominal, Adenoidectomy, Cardiac, Eye Surgery, Orthopedic, Prostatectomy, Tonsillectomy Respiratory: Yes (O2 DEPENDENT AT 3L/NC CONTINUOUSLY;MULTIPLE EPISODES OF PNEUMONIA) Asthma, Pneumonia, Chronic Bronchitis, COPD, Emphysema Currently Using CPAP: No Currently Using BIPAP: No Cardiac: Yes Chronic Edema/Swelling, Coronary Artery Disease, High Cholesterol, Hypertension Neurological: Yes Dementia Reproductive Disorders: No Sexually Transmitted Disease: No HIV/AIDS: No Genitourinary: Yes (PROSTATE CANCER > 10 YEARS AGO) Prostate Problems, Kidney Stones Gastrointestinal: Yes (S/P HERNIA REPAIR X 4, PER PT) Abdominal Hernia, Gastroesophageal Reflux, Chronic Constipation, Polyps, Hiatal Hernia Musculoskeletal: Yes (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) Degenerate Disk Disease, Osteoporosis, Arthritis, Chronic Back Pain Endocrine: Yes Diabetes, Non-Insulin dep HEENT: Yes (R EYELID BASAL CELL CANCER;SINUSITIS; NOSEBLEEDS) Cataract Loss of Vision: Right Hearing Impairment: Denies Cancer: Yes (PROSTATE CANCER, BASAL CELL CANCER OF RIGHT EYE) Prostate, Skin Did You Recieve Any Treatments: Yes What Type of Treatment Did You: Surgical Intervention Psychosocial: Yes Anxiety, Depression Integumentary: Yes (SKIN CANCER; PRESSURE ULCERS OF BUTTOCKS/SACRUM, Chronic pruritis) Blood Disorders: No Adverse Reaction/Blood Tranf: No Family Medical History FH: breast cancer G8 SISTER Myocardial infarction 19 FATHER Heart Disease CHRONIC GENERALIZED WEAKNESS, FREQUENT FALLS VERY POOR/VERY MINIMAL MOBILITY--HAS POWER CHAIR AND WALKER, WHICH HE HAS REFUSED TO USE AT HOME CHRONIC BILATERAL KNEE PAIN RIGHT EYELID BASAL 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 6.0oz. [id number]; 27.00 BMI Method:Estimated Focused Exam Sepsis Stage: Ruled Out Possible Source: Pulmonary Lactate Level 06/17/22 16:28: Lactic Acid Level 2.16*H Time of Focused Exam: 17:20 Respiratory: No Accessory Muscle Use, No Respiratory Distress, Decreased Breath Sounds (INBASES) Cardiovascular: Regular Rate, Rhythm Capillary Refill: Less Than 3 Seconds Skin: normal color, warm/dry Lactic Acid Level Laboratory Tests Test 06/17/22 16:28 Lactic Acid Level 2.16 MMOL/L (0.50-2.00) *H Within 3hrs of presentation: Admin fluids, Admin ABX, Blood cultures prior to ABX's, Focus exam, Lactate level Progress/Results/Core Measures Suspected Sepsis SIRS Temperature: Pulse: 86 Respiratory Rate: 27 Laboratory Tests 06/17/22 16:28: White Blood Count 8.4 Blood Pressure 151 /79 Mean: 103 06/17/22 16:28: Lactic Acid Level 2.16*H Laboratory Tests 06/17/22 16:28: Creatinine 0.84, INR Comment 1.1, Platelet Count 231, Total Bilirubin 0.3 Results/Orders Lab Results Laboratory Tests Test 06/17/22 16:23 06/17/22 16:28 06/17/22 17:13 Range/Units Influenza Type A (RT-PCR) Not Detected Not Detecte Influenza Type B (RT-PCR) Not Detected Not Detecte SARS-CoV-2 RNA (RT-PCR) Not Detected Not Detecte White Blood Count 8.4 4.3-11.0 10^3/uL Red Blood Count 3.79 L 4.30-5.52 10^6/uL Hemoglobin 10.1 L 13.3-17.7 g/dL Hematocrit 33 L 40-54 % Mean Corpuscular Volume 87 80-99 fL Mean Corpuscular Hemoglobin 27 25-34 pg Mean Corpuscular Hemoglobin Concent 31 L 32-36 g/dL Red Cell Distribution Width 15.4 H 10.0-14.5 % Platelet Count 231 130-400 10^3/uL Mean Platelet Volume 9.7 9.0-12.2 fL Immature Granulocyte % (Auto) 1 % Neutrophils (%) (Auto) 57 42-75 % Lymphocytes (%) (Auto) 24 12-44 % Monocytes (%) (Auto) 12 0-12 % Eosinophils (%) (Auto) 5 0-10 % Basophils (%) (Auto) 1 0-10 % Neutrophils # (Auto) 4.8 1.8-7.8 10^3/uL Lymphocytes # (Auto) 2.0 1.0-4.0 10^3/uL Monocytes # (Auto) 1.0 0.0-1.0 10^3/uL Eosinophils # (Auto) 0.5 H 0.0-0.3 10^3/uL Basophils # (Auto) 0.1 0.0-0.1 10^3/uL Immature Granulocyte # (Auto) 0.0 0.0-0.1 10^3/uL Prothrombin Time 14.8 H 12.2-14.7 SEC INR Comment 1.1 0.8-1.4 Activated Partial Thromboplast Time 33 24-35 SEC Sodium Level 138 135-145 MMOL/L Potassium Level 4.1 3.6-5.0 MMOL/L Chloride Level 103 98-107 MMOL/L Carbon Dioxide Level 23 21-32 MMOL/L Anion Gap 12 5-14 MMOL/L Blood Urea Nitrogen 10 7-18 MG/DL Creatinine 0.84 0.60-1.30 MG/DL Estimat Glomerular Filtration Rate 85 BUN/Creatinine Ratio 12 Glucose Level 132 H 70-105 MG/DL Lactic Acid Level 2.16 *H 0.50-2.00 MMOL/L Calcium Level 9.0 8.5-10.1 MG/DL Corrected Calcium 9.1 8.5-10.1 MG/DL Magnesium Level 2.0 1.6-2.4 MG/DL Total Bilirubin 0.3 0.1-1.0 MG/DL Aspartate Amino Transf (AST/SGOT) 73 H 5-34 U/L Alanine Aminotransferase (ALT/SGPT) 35 0-55 U/L Alkaline Phosphatase 66 40-136 U/L Troponin I < 0.028 <0.028 NG/ML B-Type Natriuretic Peptide 57.8 <100.0 PG/ML Total Protein 7.7 6.4-8.2 GM/DL Albumin 3.9 3.2-4.5 GM/DL My Orders Orders - ROBBY LEWIS DO Covid 19 Inhouse Test (06/17/22 16:01) Cbc With Automated Diff (06/17/22 16:01) Comprehensive Metabolic Panel (06/17/22 16:01) Blood Culture (06/17/22 16:01) Sputum Culture (06/17/22 16:01) Urinalysis (06/17/22 16:01) Urine Culture (06/17/22 16:01) Protime With Inr (06/17/22 16:01) Partial Thromboplastin Time (06/17/22 16:01) Chest 1 View, Ap/Pa Only (06/17/22 16:01) Ed Iv/Invasive Line Start (06/17/22 16:01) Ed Iv/Invasive Line Start (06/17/22 16:01) Troponin I [place] (06/17/22 16:01) Vital Signs Adult Sepsis Patie Q15M (06/17/22 16:01) O2 (06/17/22 16:01) Remove Rings In Anticipation O (06/17/22 16:01) Lactic Acid Analyzer (06/17/22 16:01) Ns Iv 1000 Ml (Sodium Chloride 0.9%) (06/17/22 16:15) Cefepime Injection (Maxipime Injection) (06/17/22 16:15) Influenza A And B By Pcr (06/17/22 16:01) Isolation Central Supply Req (06/17/22 16:01) Ekg Tracing (06/17/22 16:01) Monitor-Rhythm Ecg Trace Only (06/17/22 16:01) Bnp [place] (06/17/22 16:01) Magnesium (06/17/22 16:01) Ed Admission (Communication) (06/17/22 17:39) Medications Given in ED Current Medications Medications Dose Ordered Sig/Bernice Route Start Time Stop Time Status Last Admin Dose Admin Cefepime HCl 1000 mg/Sodium Chloride 50 ml @ 100 mls/hr ONCE ONCE IV 06/17/22 16:15 06/17/22 16:44 DC 06/17/22 17:11 100 MLS/HR Vital Signs/I&O 06/17/22 06/17/22 06/17/22 15:57 16:58 16:58 Temp 37.2 Pulse 86 Resp 27 B/P (MAP) 151/79 (103) Pulse Ox 94 94 O2 Delivery Nasal Cannula Nasal Cannula Nasal Cannula O2 Flow Rate 3.00 4.00 2.00 Capillary Refill : Less Than 3 Seconds Blood Pressure Mean: 103 Departure Communication (Admissions) 172--CALLED DR. SANDERS, NO ANSWER 1729--DR. SANDERS CALLED. SHE ACCEPTS PT FOR ADMIT. SHE WILL DO ADMIT ORDERS Impression Primary Impression: Pneumonia Additional Impressions: COPD (chronic obstructive pulmonary disease) Failure of outpatient treatment NON MOBILE Disposition: ADMITTED INPATIENT Condition: Stable Admissions Decision to Admit Reason: Admit from ER (General) Decision to Admit/Date: Jun 17, 2022 Time/Decision to Admit Time: 17:30 Departure-Patient Inst. Referrals: [facility] (PCP/Family) Primary Care Physician ROBBY LEWIS DO Jun 17, 2022 16:56
[2022-06-17 16:57] LABS: ALKALINE PHOSPHATASE 66 U/L (40-136)
[2022-06-17 16:58] LABS: CREATININE SERUM 0.84 MG/DL (0.60-1.30); GFR ESTIMATED 85
[2022-06-17 16:59] LABS: BUN/CREATININE RATIO 12
[2022-06-17 17:00] LABS: ALANINE AMINOTRANSFERASE 35 U/L (0-55)
[2022-06-17 17:29] LABS: BILIRUBIN,URINE NEGATIVE (NEGATIVE); CLARITY,URINE CLEAR; COLOR,URINE YELLOW; GLUCOSE, URINE (UA) NEGATIVE (NEGATIVE); KETONES,URINE NEGATIVE (NEGATIVE); LEUKOCYTE ESTERASE ,URINE NEGATIVE (NEGATIVE); NITRITE,URINE NEGATIVE (NEGATIVE); PH,URINE 6.5 (5-9); PROTEIN,URINE NEGATIVE (NEGATIVE)
[2022-06-17 17:53] LABS: BACTERIA,URINE TRACE /HPF
[2022-06-17] MEDS ORDERED: HYDROmorphone 2 MG/ML VIAL (DILAUDID) IV PRN (20:00)
[2022-06-17] MEDS ORDERED: diphenhydrAMINE 50 MG/ML INJ (BENADRYL) IVP PRN (20:00)
[2022-06-17] MEDS ORDERED: LACTULOSE SYRUP 10GM/15ML (ENULOSE) 30ML UDC PO PRN (20:00)
[2022-06-17] MEDS ORDERED: polyethylene glycoL POWDER 17 GM (MIRALAX) PACK PO PRN (20:00)
[2022-06-17] MEDS ORDERED: BISACODYL 10 MG SUPP (DULCOLAX) PR PRN (20:00)
[2022-06-17] MEDS ORDERED: MILK OF MAGNESIA 400 MG/5 ML 30 ML UDC PO PRN (20:00)
[2022-06-17] MEDS ORDERED: ACETAMINOPHEN 325 MG TABLET PO PRN (20:00)
[2022-06-17] MEDS ORDERED: CALCIUM CARBONATE 500 MG (TUMS) TAB.CHEW PO PRN (20:00)
[2022-06-17] MEDS ORDERED: diphenhydrAMINE 25 MG TAB (BENADRYL) PO PRN (20:00)
[2022-06-17] MEDS ORDERED: ANTACID SUSP 30 ML UDC (MYLANTA) PO PRN (20:00)
[2022-06-17 20:13] VITALS: BP 177/82
[2022-06-17 20:41] VITALS: BP 151/79
[2022-06-17] MEDS ORDERED: RT-ALBUTEROL SULF 2.5 MG/3 ML PRE-MIX VIAL INH PRN (20:45)
[2022-06-17] MEDS ORDERED: CEFEPIME INJECTION 2,000 MG in NS (IVPB) 50 ML IV SCH (21:00)
[2022-06-17 21:01] VITALS: BP 151/72
[2022-06-17] MEDS ORDERED: RT-ALBUTEROL SULF 2.5 MG/3 ML PRE-MIX VIAL INH SCH (22:00)
[2022-06-17] MEDS: SENNOSIDES 8.6 MG (SENOKOT) TAB PO SCH (22:06)
[2022-06-17] MEDS: inSUlin ASPART (NovoLOG) 1 UNIT/0.01 ML (CHARGE PER UNIT) SC SCH (22:06)
[2022-06-17] MEDS: DOCUSATE SODIUM 100 MG (COLACE) CAP PO SCH (22:06)
[2022-06-17] MEDS: ENOXAPARIN 40 MG/0.4 ML (LOVENOX) SYR SC SCH (22:20)
[2022-06-17] MEDS: MELATONIN 3 MG TABLET PO PRN (22:20)
[2022-06-17] MEDS: RT-ALBUTEROL/IPRATROPIUM 3 ML (DUONEB) VIAL INH SCH (23:01)
[2022-06-17] MEDS: CEFEPIME 1,000 MG/NS 50 ML IVPB IV SCH ×2 (23:43)
[2022-06-17 23:44] VITALS: BP 131/61
[2022-06-18] MEDS: RT-ALBUTEROL/IPRATROPIUM 3 ML (DUONEB) VIAL INH SCH ×6 (03:19→21:15)
[2022-06-18 03:55] VITALS: BP 143/65
[2022-06-18] MEDS: CEFEPIME 1,000 MG/NS 50 ML IVPB IV SCH ×8 (05:15→23:16)
[2022-06-18] MEDS: inSUlin ASPART (NovoLOG) 1 UNIT/0.01 ML (CHARGE PER UNIT) SC SCH ×5 (05:16→22:07)
[2022-06-18 05:44] LABS: BASOPHILS # (AUTO) 0.1 10^3/uL (0.0-0.1); BASOPHILS % (AUTO) 1 % (0-10); EOSINOPHILS # (AUTO) 0.3 10^3/uL (0.0-0.3); EOSINOPHILS % (AUTO) 4 % (0-10); HEMATOCRIT 33 % (40-54); HEMOGLOBIN 10.1 g/dL (13.3-17.7); LYMPHOCYTES # (AUTO) 1.6 10^3/uL (1.0-4.0); LYMPHOCYTES % (AUTO) 19 % (12-44); MEAN CORPUSCULAR HEMOGLOBIN 26 pg (25-34); MEAN CORPUSCULAR HGB CONC 31 g/dL (32-36); MEAN CORPUSCULAR VOLUME 86 fL (80-99); MEAN PLATELET VOLUME 9.9 fL (9.0-12.2); MONOCYTES # (AUTO) 0.9 10^3/uL (0.0-1.0); MONOCYTES % (AUTO) 10 % (0-12); NEUTROPHILS # (AUTO) 5.6 10^3/uL (1.8-7.8); NEUTROPHILS % (AUTO) 66 % (42-75); PLATELET COUNT 225 10^3/uL (130-400); WHITE BLOOD COUNT 8.5 10^3/uL (4.3-11.0)
[2022-06-18 06:00] LABS: ALBUMIN 3.8 GM/DL (3.2-4.5); POTASSIUM 3.9 MMOL/L (3.6-5.0)
[2022-06-18 06:02] LABS: CALCIUM 8.8 MG/DL (8.5-10.1)
[2022-06-18 06:03] LABS: TOTAL PROTEIN 7.4 GM/DL (6.4-8.2)
[2022-06-18 06:05] LABS: BILIRUBIN,TOTAL 0.4 MG/DL (0.1-1.0)
[2022-06-18 06:07] LABS: CREATININE SERUM 0.78 MG/DL (0.60-1.30)
[2022-06-18] MEDS: DOCUSATE SODIUM 100 MG (COLACE) CAP PO SCH ×2 (07:45→22:07)
[2022-06-18] MEDS: SENNOSIDES 8.6 MG (SENOKOT) TAB PO SCH ×2 (07:46→22:07)
[2022-06-18 07:53] VITALS: BP 137/66
[2022-06-18] MEDS ORDERED: ONDANSETRON 4 MG/2 ML (SDV) Z0FRAN IVP PRN (09:45)
[2022-06-18] MEDS ORDERED: SOD CHL GEL 0.5 OZ (AYR SALINE NASAL GEL) TUBE TOP PRN (11:00)
[2022-06-18 11:38] VITALS: BP 135/64
--- NOTE | 2022-06-18 11:57 | Physical Therapy Evaluation ---
PT Evaluation-General Medical Diagnosis Admission Date Jun 17, 2022 at 19:55 Medical Diagnosis: pneumonia Onset Date: Jun 17, 2022 Therapy Diagnosis Therapy Diagnosis: debility/weakness Height/Weight Height (Feet): 5 Height (Inches): 8.00 Weight (Pounds): 250 Weight (Ounces): 6.0 Precautions Precautions/Isolations: Fall Prevention, Standard Precautions Weight Bear Status Right Lower Extremity: Right Weight Bearing/Tolerated Left Lower Extremity: Left Weight Bearing/Tolerated Referral Physician: Soco Reason for Referral: Evaluation/Treatment Medical History Pertinent Medical History: CAD, COPD, DM, Dementia, HTN, Parkinson's Current History EMS secondary to pneumonia (sick x 1 week per report) Reviewed History: Yes Social History Home: Single Level Current Living Status: Spouse Entry Into Home: Ramp per patient report Prior Prior Level of Function SCALE: Activities may be completed with or without assistive devices. 9-Hdgebcxvtu-alyzkgd completes the activity by him/herself with no assistance from a helper. 5-Set-up or Clean-up Assistance-helper sets up or cleans up; patient completes activity. Garrison assists only prior to or following the activity. 4-Supervision or Touching Assistance-helper provides verbal cues and/or touching/steadying and/or contact guard assistance as patient completes activity. Assistance may be provided throughout the activity or intermittently. 3-Partial/Moderate Assistance-helper does LESS THAN HALF the effort. Garrison lifts, holds or supports trunk or limbs, but provides less than half the effort. 2-Substantial/Maximal Assistance-helper does MORE THAN HALF the effort. Garrison lifts or holds trunk or limbs and provides more than half the effort. 9-Ihyaacazs-qisrqe does ALL the effort. Patient does none of the effort to complete the activity. Or, the assistance of 2 or more helpers is required for the patient to complete the activity. If activity was not attempted, code reason: 7-Patient Refused. 9-Not Applicable-not attempted and the patient did not perform the activity before the current illness, exacerbation or injury. 10-Not Attempted due to Environmental Limitations-(lack of equipment, weather restraints, etc.). 88-Not Attempted due to Medical Conditions or Safety Concerns. Bed Mobility: 4 Transfers (B,C,W/C): 4 Gait: 4 Indoor Mobility (Ambulation): Needed Some Help Prior Devices Use: Walker patient report his assists him with ambulation with use of a gait belt PT Evaluation-Current Subjective Patient agrees to PT. Patient's O2 NC was not on patient upon entering room. Patient made aware and patient place it back on. Objective Patient Orientation: Person, Time, Situation ROM/Strength ROM Lower Extremities bilateral LE WFL (noted edema) Strength Lower Extremities 4-/5 grossly bilateral LE all planes Integumentary/Posture Bowel Incontinence: No Bladder Incontinence: No Posture kyphotic Neuromuscular (Tone, Coordination, Reflexes) grossly intact Sensory Vision: Functional Hearing: Functional Transfers Lying to Sitting/Side of Bed(Q: 4 Sit to Stand (QC): 4 Chair/Uxg-om-Aqjkq Xfer(QC): 4 Gait Mode of Locomotion: Walk Anticipated Mode of Locomotion: Walk Walk 10 feet (QC): 4 Walk 50 ft with 2 Turns(QC): 4 Walk 150 ft (QC): 4 Distance: 300' Gait Assistive Device: FWW Comments/Gait Description extended UE's with FWW use/fast pace, functional gait sequence Balance Sitting Static: Normal Sitting Dynamic: Normal Standing Static: Normal Standing Dynamic: Normal Assessment/Needs Patient will be seen short term by skilled PT to address functional strength and mobility to improve current LOF to safely return to home with spouse at maximum LOF. Rehab Potential: Fair PT Account Clerk Goals Account Clerk Goals PT Intermediate Goals Time Frame: Jun 28, 2022 Roll Left & Right (QC): 6 Sit to Lying (QC): 6 Lying-Sitting on Side/Bed(QC): 6 Sit to Stand (QC): 5 Chair/Kmz-bt-Gmqwz Xfer(QC): 5 Toilet Transfer (QC): 5 Walk 10 feet (QC): 5 Walk 50ft with 2 Turns (QC): 5 Walk 150 ft (QC): 5 PT Plan Problem List Problem List: Activity Tolerance, Functional Strength, Safety, Balance, Gait, Transfer, Bed Mobility Treatment/Plan Treatment Plan: Continue Plan of Care Treatment Plan: Bed Mobility, Education, Functional Activity Eddy, Functional Strength, Gait, Safety, Therapeutic Exercise, Transfers Treatment Duration: Jun 28, 2022 Frequency: 6 times per week Estimated Hrs Per Day: .25 hour per day Patient and/or Family Agrees t: Yes Time Time In: 1121 Time Out: 1133 DATE: Jun 18, 2022 Total Billed Treatment Time: 12 [facility] DEEPIKA CRAMER PT Jun 18, 2022 11:57
[2022-06-18] MEDS ORDERED: ATOR20TA66 PO (14:30)
[2022-06-18] MEDS ORDERED: AZIT250T12 PO (14:30)
[2022-06-18] MEDS ORDERED: ACET-2267 PO (14:30)
[2022-06-18] MEDS ORDERED: CHOL200074 PO (14:30)
[2022-06-18] MEDS ORDERED: GUAI-1166 PO (15:05)
[2022-06-18] MEDS ORDERED: GUAI5SYR PO (15:05)
--- NOTE | 2022-06-18 15:07 | History & Physical-Hospitalist ---
UMANG BENNETT 06/18/22 1507: History of Present Illness HPI/Chief Complaint Ronald Ramachandran is an 86 yo M w/ pmh of [facility] on 3Lo2, severe kyphosis, multiple ca ncers, who presented with shortness of breath. He has had 1 week of cough, diarrhea, and sore throat, which he was being seen at [facility] for. A CXR at [facility] revealed a possible pna, and they instructed him to go to the ED. On arrival he had increased o2 requirements, and cxr revealed decreased lung capacity and possible venous congestion. He was stabilized on 4L o2 and started on a duoneb treatment. This am he remains on 4L and he says his breathing is better. He asks for a medication to help with some nausea. Date Seen 06/18/22 Time Seen by a Provider: 10:00 [facility] Physician [place] Admitting Physician: Lorene Wan DO Attending Physician: Lorene Wan DO Referring Physician Date of Admission Jun 17, 2022 at 19:55 Home Medications & Allergies Home Medications Reviewed patient Home Medication Reconciliation performed by pharmacy medication reconciliations library technician and/or nursing. Patients Allergies have been reviewed. Allergies Allergies Coded Allergies Serotonin 5HT-3 Antagonists (Unverified Allergy, Unknown, 11/25/17) Tricyclic Antidepressants and Tricy (Unverified Allergy, Unknown, 11/25/17) codeine (Verified Allergy, Unknown, pt has rec Morphine in the past, 11/20/21) hydrocodone (Unverified Allergy, Unknown, 10/16/15) aspirin (Unverified Adverse Reaction, Mild, STOMACH IRRITATION, 11/25/17) Past Qyylnun-Clzqzg-Pfrnrn Hx Patient Social History Tobacco Use?: Yes Smoking Status: Former Smoker Smokeless type used: Chew Smokeless Tobacco Frequency: Former User Use of E-Cig and/or Vaping dev: No Substance use?: No Alcohol Use?: No Pt feels they are or have been: No Immunizations Up To Date Date of Influenza Vaccine: Jan 29, 2022 First/Initial COVID19 Vaccinat: NOV 2020 Second COVID19 Vaccination Jack: DEC 2020 Tetanus Booster (TDap): Less Than 5 Years Hepatitis A: Yes Hepatitis B: Yes PED Vaccines UTD: No Date of Pneumonia Vaccine: Mar 31, 2016 Seasonal Allergies Seasonal Allergies: Yes Current Status Advance Directives: Yes Advance Directive Location: Copy from prev record Communicates: Verbally Primary Language: Moroccan Preferred Spoken Language: Moroccan Is interpretation needed?: No Sensory deficits: Vision impairment Implanted or Applied Medical D: None Past Medical History Surgeries: Abdominal, Adenoidectomy, Cardiac, Eye Surgery, Orthopedic, Prostatectomy, Tonsillectomy Asthma, Pneumonia, Chronic Bronchitis, COPD, Emphysema Currently Using CPAP: No Currently Using BIPAP: No Chronic Edema/Swelling, Coronary Artery Disease, High Cholesterol, Hypertension Dementia Sexually Transmitted Disease: No HIV/AIDS: No Prostate Problems, Kidney Stones Abdominal Hernia, Gastroesophageal Reflux, Chronic Constipation, Polyps, Hiatal Hernia Degenerate Disk Disease, Osteoporosis, Arthritis, Chronic Back Pain Diabetes, Non-Insulin dep Cataract Loss of Vision: Right Hearing Impairment: Denies Prostate, Skin Did You Recieve Any Treatments: Yes What Type of Treatment Did You: Surgical Intervention Anxiety, Depression Blood Disorders: No Adverse Reaction/Blood Tranf: No PMHx: COPD, supplemental oxygen dependent HTN Prostate cancer DMII Osteoarthritis of multiple joints Dementia GERD Anxiety Hyperlipidemia Allergic rhinitis Alzheimer disease SurgHx: Prostatectomy Hernia repair x 2 Cataract Wrist fracture Right eyelid basal cell carcinoma removal Family Medical History FH: breast cancer G8 SISTER Myocardial infarction 19 FATHER Heart Disease CHRONIC GENERALIZED WEAKNESS, FREQU[place]ALLS VERY POOR/VERY MINIMAL MOBILITY--HAS POWER CHAIR AND WALKER, WHICH HE HAS REFUSED TO USE AT HOME CHRONIC BILATERAL KNEE PAIN RIGHT EYELID BASAL 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 6.0oz. [id number]; 36.10 BMI Method:Estimated General Appearance: No Apparent Distress Eyes: Left Eye Normal Inspection (R eyelid removed); Bilateral Eye PERRL, Bilateral Eye EOMI HEENT: Moist Mucous Membranes; No Scleral Icterus (L), No Scleral Icterus (R) Neck: Normal Inspection, Non Tender, Supple; No JVD Respiratory: No Respiratory Distress, Rhonci Cardiovascular: Regular Rate, Rhythm, No JVD, No Murmur, Normal Peripheral Pulses Gastrointestinal: Non Tender, Soft; No Distended, No Guarding Back: Normal Inspection, No CVA Tenderness Extremity: Normal Capillary Refill, Non Tender, No Calf Tenderness Neurologic/Psychiatric: Alert, Oriented x3, No Motor/Sensory Deficits, Normal Mood/Affect, gripper machine operator II-XII Norm as Tested Skin: Normal Color, Warm/Dry Results Results/Procedures Labs Laboratory Tests 06/17/22 16:28 06/18/22 05:27 Patient resulted labs reviewed. Assessment/Plan Admission Diagnosis [facility] Admission Status: Inpatient Order (span 2 midnights) Reason for Inpatient Admission: Increased o2 needs Assessment and Plan Acute on [facility] -increased cough, sputum production -cxr reviewed -on duoneb treatment -cefepime for pna coverage -on 3L baseline at home -normal white count Diarrhea -chronic in nature -monitoring for now Dvt ppx: lovenox diet: full gi ppx: ppi Dispo: increased o2 needs, receiving duoneb treatment, holding for now. LORENE WAN DO 06/19/22 0521: Past Yanvzde-Qwdpgj-Dbdoht Hx Family Medical History FH: breast cancer G8 SISTER Myocardial infarction 19 FATHER Supervisory-Addendum Brief Verification & Attestation Participated in pt care: history, MDM, physical Personally performed: exam, history, MDM, supervision of care Care discussed with: Medical Student Procedures: n/a Results interpretation: Verified all documentation Verification and Attestation of Medical Student E/M Service A medical student performed and documented this service in my presence. I reviewed and verified all information documented by the medical student and made modifications to such information, when appropriate. I personally performed the physical exam and medical decision making. Lorene Wan Jun 19, 2022,05:21 UMANG BENNETT Jun 18, 2022 15:07 LORENE WAN DO Jun 19, 2022 05:21
[2022-06-18 15:48] VITALS: BP 152/62
[2022-06-18] MEDS ORDERED: [UNRECOGNIZED DRUG - OTHER] PO PRN (16:00)
[2022-06-18] MEDS ORDERED: guaiFENesin/DM (ROBITUSSIN DM) 10 ML UDC PO PRN (16:00)
[2022-06-18] MEDS ORDERED: PATIENT MAY USE OWN MED,SINGLE MED PO SCH (16:00)
[2022-06-18 19:42] VITALS: BP 157/69
[2022-06-18] MEDS ORDERED: VILAZODONE HCL 10 MG PO SCH (21:00)
[2022-06-18] MEDS: clonazePAM 1 MG (KlonoPIN) TAB PO SCH ×2 (21:47→22:08)
[2022-06-18] MEDS: ENOXAPARIN 40 MG/0.4 ML (LOVENOX) SYR SC SCH ×2 (21:47→22:09)
[2022-06-18] MEDS: PREGABALIN 100 MG (LYRICA) CAPSULE PO SCH ×2 (21:47→22:08)
[2022-06-18] MEDS: MONTELUKAST 10 MG (SINGULAIR) TAB PO SCH ×2 (21:47→22:09)
[2022-06-18] MEDS: ACETAMINOPHEN 500 MG TAB (TYLENOL) PO SCH ×2 (21:47→22:07)
[2022-06-18] MEDS: DONEPEZIL 5 MG (ARICEPT) TAB PO SCH ×2 (21:48→22:09)
[2022-06-18 23:22] VITALS: BP 131/58
[2022-06-19] MEDS: MELATONIN 3 MG TABLET PO PRN (00:16)
[2022-06-19] MEDS: RT-ALBUTEROL/IPRATROPIUM 3 ML (DUONEB) VIAL INH SCH ×3 (03:11→11:00)
[2022-06-19 04:54] VITALS: BP 148/73
[2022-06-19] MEDS: CEFEPIME 1,000 MG/NS 50 ML IVPB IV SCH ×4 (05:33→11:45)
[2022-06-19] MEDS: ACETAMINOPHEN 500 MG TAB (TYLENOL) PO SCH (05:34)
[2022-06-19] MEDS: inSUlin ASPART (NovoLOG) 1 UNIT/0.01 ML (CHARGE PER UNIT) SC SCH ×2 (05:34→11:42)
[2022-06-19 06:11] LABS: BASOPHILS # (AUTO) 0.1 10^3/uL (0.0-0.1); BASOPHILS % (AUTO) 1 % (0-10); EOSINOPHILS # (AUTO) 0.2 10^3/uL (0.0-0.3); EOSINOPHILS % (AUTO) 1 % (0-10); HEMATOCRIT 35 % (40-54); HEMOGLOBIN 10.7 g/dL (13.3-17.7); LYMPHOCYTES % (AUTO) 19 % (12-44); MEAN CORPUSCULAR HEMOGLOBIN 26 pg (25-34); MEAN CORPUSCULAR HGB CONC 31 g/dL (32-36); MEAN CORPUSCULAR VOLUME 84 fL (80-99); MEAN PLATELET VOLUME 9.7 fL (9.0-12.2); MONOCYTES # (AUTO) 1.1 10^3/uL (0.0-1.0); MONOCYTES % (AUTO) 10 % (0-12); NEUTROPHILS # (AUTO) 7.3 10^3/uL (1.8-7.8); NEUTROPHILS % (AUTO) 68 % (42-75); PLATELET COUNT 230 10^3/uL (130-400); WHITE BLOOD COUNT 10.7 10^3/uL (4.3-11.0)
[2022-06-19 06:24] LABS: ALBUMIN 4.3 GM/DL (3.2-4.5); POTASSIUM 4.1 MMOL/L (3.6-5.0)
[2022-06-19 06:26] LABS: CALCIUM 9.5 MG/DL (8.5-10.1)
[2022-06-19 06:27] LABS: TOTAL PROTEIN 8.3 GM/DL (6.4-8.2)
[2022-06-19 06:29] LABS: BILIRUBIN,TOTAL 0.7 MG/DL (0.1-1.0)
[2022-06-19 06:30] LABS: CREATININE SERUM 0.76 MG/DL (0.60-1.30)
--- NOTE | 2022-06-19 07:17 | Progress Note - Hospitalist ---
Subjective HPI/CC On Admission Date Seen by Provider: Jun 19, 2022 Time Seen by Provider: 10:00 Ronald Ramachandran is an 86 yo M w/ pmh of [facility] on 3Lo2, severe kyphosis, multiple cancers, who presented with shortness of breath. He has had 1 week of cough, diarrhea, and sore throat, which he was being seen at [facility] for. [facility] revealed a possible pna, and they instructed him to go to the ED. On arrival he had increased o2 requirements, and cxr revealed decreased lung capacity and possible venous congestion. He was stabilized on 4L o2 and started on a duoneb treatment. This am he remains on 4L and he says his breathing is better. He asks for a medication to help with some nausea. Focused Exam Lactate Level 06/17/22 16:28: Lactic Acid Level 2.16*H 06/17/22 19:00: Lactic Acid Level 2.48*H 06/17/22 22:08: Lactic Acid Level 4.03*H Time of Focused Exam: 17:20 Objective Exam Vital Signs Vital Signs Date Time Temp Pulse Resp B/P (MAP) Pulse Ox O2 Delivery O2 Flow Rate FiO2 06/19/22 11:28 36.2 80 18 143/66 (91) 93 Nasal Cannula 4.00 Capillary Refill : Less Than 3 Seconds Results/Procedures Lab Laboratory Tests 06/19/22 05:38 Patient resulted labs reviewed. MARSHAL SANDERS DO Jun 19, 2022 07:17
[2022-06-19 08:34] VITALS: BP 148/68
[2022-06-19] MEDS ORDERED: VITAMIN D3 25 MCG (1,000 UNITS) TABLET PO SCH (09:00)
[2022-06-19] MEDS ORDERED: amLODIPine 10 MG (NORVASC) TAB PO SCH (09:00)
[2022-06-19] MEDS ORDERED: RIVASTIGMINE 4.6 MG TD SCH (09:00)
[2022-06-19] MEDS ORDERED: LORATADINE (CLARITIN) 10 MG TAB PO SCH (09:00)
[2022-06-19] MEDS: SENNOSIDES 8.6 MG (SENOKOT) TAB PO SCH (09:28)
[2022-06-19] MEDS: DOCUSATE SODIUM 100 MG (COLACE) CAP PO SCH (09:28)
[2022-06-19] MEDS: clonazePAM 1 MG (KlonoPIN) TAB PO SCH (09:37)
[2022-06-19] MEDS: PREGABALIN 100 MG (LYRICA) CAPSULE PO SCH (09:37)
--- NOTE | 2022-06-19 11:12 | Occupational Therapy Eval ---
OT Evaluation-General/PLF Medical Diagnosis Admission Date Jun 17, 2022 at 19:55 Medical Diagnosis: pneumonia Onset Date: Jun 17, 2022 Therapy Diagnosis Therapy Diagnosis: weaknesss/confusion Height/Weight Height (Feet): 5 Height (Inches): 8.00 Weight (Pounds): 250 Weight (Ounces): 6.0 Precautions Precautions/Isolations: Standard Precautions Safety Interventions: Bed Exit Alarm Weight Bear Status Weight Bearing Restriction: Full Weight Bearing Referral Physician: Soco Referral Reason: Evaluation/Treatment Medical History Pertinent Medical History: CAD, COPD, DM, Dementia, HTN, Parkinson's Current History Ronald Ramachandran is an 86 yo M w/ 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 He has had 1 week of cough, diarrhea, and sore throat, which he was being seen at [facility] for. [facility] revealed a possible pna, and they instructed him to go to the ED. On arrival he had increased o2 requirements, and cxr revealed decreased lung capacity and possible venous congestion. He was stabilized on 4L o2 and started on a duoneb treatment Social History Home: Single Level Current Living Status: Spouse Entry Into Home: Ramp ADL-Prior Level of Function SCALE: Activities may be completed with or without assistive devices. 2-Jeojjjusds-xdyfhwd completes the activity by him/herself with no assistance from a helper. 5-Set-up or Clean-up Assistance-helper sets up or cleans up; patient completes activity. Horatio assists only prior to or following the activity. 4-Supervision or Touching Assistance-helper provides verbal cues and/or touching/steadying and/or contact guard assistance as patient completes activity. Assistance may be provided throughout the activity or intermittently. 3-Partial/Moderate Assistance-helper does LESS THAN HALF the effort. Horatio lifts, holds or supports trunk or limbs, but provides less than half the effort. 2-Substantial/Maximal Assistance-helper does MORE THAN HALF the effort. Horatio lifts or holds trunk or limbs and provides more than half the effort. 5-Tlmkyeruf-gqansc does ALL the effort. Patient does none of the effort to complete the activity. Or, the assistance of 2 or more helpers is required for the patient to complete the activity. If activity was not attempted, code reason: 7-Patient Refused. 9-Not Applicable-not attempted and the patient did not perform the activity before the current illness, exacerbation or injury. 10-Not Attempted due to Environmental Limitations-(lack of equipment, weather restraints, etc.). 88-Not Attempted due to Medical Conditions or Safety Concerns. Self Care: Needed Some Help Functional Cognition: Needed Some Help Drive Self: No OT Current Status Subjective Required stimuli to arouse to awake and participate w/ OT, agrees to participate Mental Status/Objective Patient Orientation: Person, Eyes Open Attachments: IV (port) Current Dentures/Partials: No (not wearing dentures, difficulty eating) Upper Extremity ROM Subjective, does not follow commands to raise arms or lift arms, demonstration provided, AROM performed, patient does not hold against gravity Upper Extremity Coordination GMC/FMC impaired Upper Extremity Strength NT ADL-Treatment Eating (QC): 3 Oral Hygiene (QC): 2 Shower/Bathe Self (QC): 88 Upper Body Dressing (QC): 2 Lower Body Dressing (QC): 1 On/Off Footwear (QC): 1 Toileting Hygiene (QC): 1 Education OT Patient Education: Correct positioning, Modified ADL techniques, Progress toward Goal/Update tx plan, Purpose of tx/functional activities, Reviewed precautions, Rehab process, Safety issues, Transfer techniques Teaching Recipient: Patient Teaching Methods: Demonstration, Discussion Response to Teaching: Reinforcement Needed OT Health Care Specialist Goals Fci Goals Eating (QC): 4 Oral Hygiene (QC): 4 Toileting Hygiene (QC): 3 Shower/Bathe Self (QC): 4 Upper Body Dressing (QC): 4 Lower Body Dressing (QC): 3 On/Off Footwear (QC): 3 1=Demonstrate adherence to instructed precautions during ADL tasks. 2=Patient will verbalize/demonstrate understanding of assistive devices/modifications for ADL. 3=Patient will improve strength/tolerance for activity to enable patient to perform ADL's. OT Education/Plan Problem List/Assessment Assessment: Decreased Activ Tolerance, Decreased Safety Aware, Decreased UE Strength, Impaired Cognition, Impaired Coordination, Impaired Funct Balance, Impaired Self-Care Skills Discharge Recommendations Plan/Recommendations: Continue POC Therapy Discharge Recommendati: 24 Hour Supervision, Post Acute OT Treatment Plan/Plan of Care Treatment,Training & Education: Yes Patient would benefit from OT for education, treatment and training to promote independence in ADL's, mobility, safety and/or upper extremity function for ADL's. Plan of Care: ADL Retraining, Cognitive Retraining, Functional Mobility, Group Exercise/Act as Ind, UE Funct Exercise/Act Treatment Duration: Jun 28, 2022 Frequency: 3 times per week (3-5 times per week) Agreement: Yes Rehab Potential: Fair Time Start Time: 08:28 Stop Time: 08:48 DATE: Jun 19, 2022 Total Time Billed (hr/min): 20 Billed Treatment Time EVM 20 min VIJAYA SIMMONS OT Jun 19, 2022 11:12
[2022-06-19] MEDS ORDERED: CEFD300C3 PO (11:20)
--- NOTE | 2022-06-19 11:21 | D/C HH Face to Face Order ---
D/C HH Face to Face Orders Reconcile Patient Problems Problems Reviewed?: Yes Instructions for Patient HH Patient Instructions/FollowUp: PCP 1 week Physician to follow Patient: [facility] Discharge Diet for Home: No Restrictions Patient Problems: Debility Patient Data-Allergies,Ht & Wt Patient Allergies: Coded Allergies: Serotonin 5HT-3 Antagonists (Unverified Allergy, Unknown, 11/25/17) Tricyclic Antidepressants and Tricy (Unverified Allergy, Unknown, 11/25/17) codeine (Verified Allergy, Unknown, pt has rec Morphine in the past, 11/20/21) hydrocodone (Unverified Allergy, Unknown, 10/16/15) aspirin (Unverified Adverse Reaction, Mild, STOMACH IRRITATION, 11/25/17) Height (Feet): 5 Height (Inches): 8.00 Weight (Pounds): 250 Weight (Ounces): 6.0 Home Health Need/Face to Face Date of Face to Face: Jun 19, 2022 Clinical Findings: Generalized weakness and fatigue, Instability, Muscle weakness I have seen Pt [id number]: Yes Discharged To: Home Diagnosis/Conditions: PCP 1 week Patient is Homebound due to: CognItive deficits, Josse fall risk due to instabilty, Muscle weakness Homebound Status Due to the above stated illness, injury or surgical procedure (medical condition or diagnosis) and associated clinical findings, the patient is homebound because of his/her inability to leave home except with aid of a supportive device and/or person AND leaving the home requires a considerable and taxing effort or is medically contraindicated. Pt req the following assistanc: Walker Home Health Nursing Orders Home Health Services Order: Nursing Services, Shuttle Spotter-Evaluate & Treat, Physical Therapy-Evaluate & Treat Home Health Infusion Therapy Line Start Date: Jun 17, 2022 Certify Stmt I certify that this patient is under my care and that I, a nurse practitioner or a physician; a baking assistant working with me, had a face to face encounter that - meets the physician face to face encounter requirements with this patient as dated. MARSHAL SANDERS DO Jun 19, 2022 11:21
--- NOTE | 2022-06-19 11:22 | Discharge Summary ---
Discharge Summary Hospital Course Was the Problem List Reviewed?: Yes Problems/Dx: (1) Acute on chronic respiratory failure with hypoxia Status: Acute (2) Oxygen dependent Status: Chronic (3) COPD (chronic obstructive pulmonary disease) Status: Chronic (4) Type 2 diabetes mellitus Status: Chronic (5) Dementia Status: Chronic (6) Upper respiratory infection Status: Acute Hospital Course Date of Admission: Jun 17, 2022 at 19:55 Admission Diagnosis : Family Physician/Provider: [place] Date of Discharge: 06/19/22 Discharge Diagnosis: [ ] Hospital Course: Short course after he was admitted for acute on chronic resp failure from URI. He recovered quickly back to his baseline. Refused NHP. Overall his labs remained stable and was DC in improved condition Labs and Pending Lab Test: Laboratory Tests 06/18/22 15:41: Glucometer 152H 06/18/22 19:59: Glucometer 179H 06/19/22 04:57: Glucometer 141H 06/19/22 05:38: White Blood Count 10.7, Red Blood Count 4.11L, Hemoglobin 10.7L, Hematocrit 35L, Mean Corpuscular Volume 84, Mean Corpuscular Hemoglobin 26, Mean Corpuscular Hemoglobin Concent 31L, Red Cell Distribution Width 15.1H, Platelet Count 230, Mean Platelet Volume 9.7, Immature Granulocyte % (Auto) 1, Neutrophils (%) (Auto) 68, Lymphocytes (%) (Auto) 19, Monocytes (%) (Auto) 10, Eosinophils (%) (Auto) 1, Basophils (%) (Auto) 1, Neutrophils # (Auto) 7.3, Lymphocytes # (Auto) 2.0, Monocytes # (Auto) 1.1H, Eosinophils # (Auto) 0.2, Basophils # (Auto) 0.1, Immature Granulocyte # (Auto) 0.1, Sodium Level 135, Potassium Level 4.1, Chloride Level 99, Carbon Dioxide Level 23, Anion Gap 13, Blood Urea Nitrogen 9, Creatinine 0.76, Estimat Glomerular Filtration Rate 88, BUN/Creatinine Ratio 12, Glucose Level 150H, Calcium Level 9.5, Corrected Calcium 9.3, Total Bilirubin 0.7, Aspartate Amino Transf (AST/SGOT) 65H, Alanine Aminotransferase (ALT/SGPT) 33, Alkaline Phosphatase 64, Total Protein 8.3H, Albumin 4.3 06/19/22 11:06: Glucometer 181H Microbiology 06/17/22 Urine Culture - Final, Complete YEAST 06/17/22 Blood Culture - Preliminary, Resulted No growth Home Meds Active Cefdinir 300 Mg Capsule 300 Mg PO BID Reported Robitussin Honey Max Dm Liquid (Guaifenesin/Dextromethorphan) 100 Mg-5 Mg/5 Ml Liquid 20 Ml PO Q6H PRN Guaifenesin Dm Syrup (Guaifenesin/Dextromethorphan) 100 Mg-10 Mg/5 Ml Syrup 20 Ml PO Q6H PRN Tylenol Extra Strength (Acetaminophen) 500 Mg Tablet 1,000 Mg PO Q8H Vitamin D3 (Cholecalciferol (Vitamin D3)) 50 Mcg (2000 Unit) Capsule 50 Mcg PO DAILY Atorvastatin Calcium 20 Mg Tablet 20 Mg PO DAILY Azithromycin 250 Mg Tablet 250 Mg PO DAILY FILLED 06-13-2022 #6/5 DAY SUPPLY Vilazodone HCl 10 Mg Tablet 10 Mg PO HS Montelukast Sodium 10 Mg Tablet 10 Mg PO HS Pregabalin 100 Mg Capsule 100 Mg PO TID Donepezil HCl 5 Mg Tablet 5 Mg PO HS Hydrochlorothiazide 25 Mg Tablet 25 Mg PO DAILY Albuterol Sulfate 2.5 Mg/3 Ml (0.083 %) Vial.neb 2.5 Mg NEB Q6H PRN Loratadine 10 Mg Tablet 10 Mg PO DAILY Myrbetriq (Mirabegron) 25 Mg Tab.er.24h 25 Mg PO 1800 Rivastigmine 1 Each Patch.td24 4.6 Mg TD DAILY Amlodipine Besylate 10 Mg Tablet 10 Mg PO DAILY Clonazepam 1 Mg Tablet 1 Mg PO TID Doxazosin Mesylate 4 Mg Tablet 4 Mg PO 1800 Assessment/Pt Instructions PCP 1 week Discharge Planning: <30 minutes discharge planning Discharge Physical Examination Vital Signs Vital Signs Date Time Temp Pulse Resp B/P (MAP) Pulse Ox O2 Delivery O2 Flow Rate FiO2 06/19/22 11:00 93 Room Air 06/19/22 08:34 36.0 78 18 148/68 (94) 4.00 General Appearance: No Apparent Distress, WD/WN, Chronically ill Respiratory: Lungs Clear, Normal Breath Sounds Allergies: Coded Allergies: Serotonin 5HT-3 Antagonists (Unverified Allergy, Unknown, 11/25/17) Tricyclic Antidepressants and Tricy (Unverified Allergy, Unknown, 11/25/17) codeine (Verified Allergy, Unknown, pt has rec Morphine in the past, 11/20/21) hydrocodone (Unverified Allergy, Unknown, 10/16/15) aspirin (Unverified Adverse Reaction, Mild, STOMACH IRRITATION, 11/25/17) Discharge Summary Date of Admission Jun 17, 2022 at 19:55 Date of Discharge Discharge Date: Jun 19, 2022 Admission Diagnosis [facility] MARSHAL SANDERS DO Jun 19, 2022 11:22
[2022-06-19 11:28] VITALS: BP 143/66
--- NOTE | 2022-06-19 13:14 | Physical Therapy Daily Note ---
PT Daily Note-Current Subjective Patient sitting in chair upon PT arrival, agreeable to treatment. Patient reports pain at 0/10 currently. Pain Section J - Health Conditions 1. Rarely or not at all 2. Occasionally 3. Frequently 4. Almost constantly 8. Unable to answer Pain Effect on Sleep: 1 Pain Interference with Therapy: 1 Pain Interference w/Day-to-Day: 1 Transfers SCALE: Activities may be completed with or without assistive devices. 5-Geadiypeje-fixdtso completes the activity by him/herself with no assistance from a helper. 5-Set-up or Clean-up Assistance-helper sets up or cleans up; patient completes activity. Dundee assists only prior to or following the activity. 4-Supervision or Touching Assistance-helper provides verbal cues and/or touching/steadying and/or contact guard assistance as patient completes activity. Assistance may be provided throughout the activity or intermittently. 3-Partial/Moderate Assistance-helper does LESS THAN HALF the effort. Dundee lift s, holds or supports trunk or limbs, but provides less than half the effort. 2-Substantial/Maximal Assistance-helper does MORE THAN HALF the effort. [place] lifts or holds trunk or limbs and provides more than half the effort. 8-Ngmyrokrg-tfpnxi does ALL the effort. Patient does none of the effort to complete the activity. Or, the assistance of 2 or more helpers is required for the patient to complete the activity. If activity was not attempted, code reason: 7-Patient Refused. 9-Not Applicable-not attempted and the patient did not perform the activity before the current illness, exacerbation or injury. 10-Not Attempted due to Environmental Limitations-(lack of equipment, weather restraints, etc.). 88-Not Attempted due to Medical Conditions or Safety Concerns. Sit to Stand (QC): 4 Chair/Uir-vc-Foant Xfer(QC): 4 Weight Bearing Right Lower Extremity: Right Weight Bearing/Tolerated Left Lower Extremity: Left Weight Bearing/Tolerated Gait Training Does the Patient Walk?: Yes Distance: 250 feet Walk 10 feet (QC): 4 Walk 50 ft with 2 Turns(QC): 4 Walk 150 ft (QC): 4 Gait Assistive Device: FWW Assessment Current Status: Poor Progress Patient performs all transfers with SBA. Patient ambulates 250 feet with FWW, with SBA and verbal cues for safety, posture, control of FWW. Patient reports and demonstrates moderate fatigue during gait and requires shorter distance than last gait training. Patient in chair post treatment with all needs met, nursing notified, call light in hand, and chair alarm activated. PT Compensation Programs Manager Goals Correction Goals PT Correction Goals Time Frame: Jun 28, 2022 Roll Left & Right (QC): 6 Sit to Lying (QC): 6 Lying-Sitting on Side/Bed(QC): 6 Sit to Stand (QC): 5 Chair/Grb-zt-Ahycu Xfer(QC): 5 Toilet Transfer (QC): 5 Walk 10 feet (QC): 5 Walk 50ft with 2 Turns (QC): 5 Walk 150 ft (QC): 5 PT Plan Treatment/Plan Treatment Plan: Continue Plan of Care Treatment Plan: Bed Mobility, Education, Functional Activity Eddy, Functional Strength, Gait, Safety, Therapeutic Exercise, Transfers Treatment Duration: Jun 28, 2022 Frequency: 6 times per week Estimated Hrs Per Day: .25 hour per day Patient and/or Family Agrees t: Yes Safety Risks/Education Patient Education: Gait Training, Transfer Techniques Teaching Recipient: Patient Teaching Methods: Demonstration, Discussion Response to Teaching: Verbalize Understanding, Return Demonstration Time Time In: 948 Time Out: 1000 DATE: Jun 19, 2022 Total Billed Treatment Time: 12 Total Billed Treatment Visit, Gait AYLIN JASSO PT Jun 19, 2022 13:14
[2022-06-19] MEDS ORDERED: doxAzosin 4 MG (CARDURA) TAB PO SCH (18:00)
[2022-06-19] MEDS ORDERED: MIRABEGRON 25 MG TAB (MYRBETRIQ) PO SCH (18:00)
== END 2022-06-19 12:15 | disposition home health service (06) | DRG 189 ==
LOC: EDUNIT# 15:57 → ER 15:58 → 4TH 19:55
PROVIDERS: ADMIT Internal Medicine; ATTEND Internal Medicine
DX: J96.21 Acute and chronic respiratory failure with hypoxia (principal); K21.9 Gastro-esophageal reflux disease without esophagitis; J06.9 Acute upper respiratory infection, unspecified; E78.5 Hyperlipidemia, unspecified; E11.9 Type 2 diabetes mellitus without complications; G30.9 Alzheimer's disease, unspecified; J43.9 Emphysema, unspecified; K52.9 Noninfective gastroenteritis and colitis, unspecified; F02.80 Dementia in other diseases classified elsewhere, unspecified severity, without behavioral disturbance, psychotic disturbance, mood disturbance, and anxiety; Z99.81 Dependence on supplemental oxygen; Z79.52 Long term (current) use of systemic steroids; Z79.899 Other long term (current) drug therapy; Z85.840 Personal history of malignant neoplasm of eye; Z87.891 Personal history of nicotine dependence
CPT/HCPCS: 36415; 71045; 80053; 81000; 82947; 83605; 83735; 83880; 84484; 85025; 85610; 85730; 87040; 87088; 87636; 93005; 93041; 94640; 94664; 94760; G0378

== ENCOUNTER → 2022-06-25 | Outpatient (CLI) | payer MEDICARE, MEDICAID ==
[~2022-06-25] MED LIST changes: +ACET-2267 PO; +ATOR20TA66 PO; +CHOL200074 PO; +GUAI-1166 PO
== END ==
LOC: WOUNDCARE 12:55
PROVIDERS: ATTEND Family Medicine
DX: I96 Gangrene, not elsewhere classified (principal); L98.412 Non-pressure chronic ulcer of buttock with fat layer exposed; L98.492 Non-pressure chronic ulcer of skin of other sites with fat layer exposed; L24.A2 Irritant contact dermatitis due to fecal, urinary or dual incontinence; D46.4 Refractory anemia, unspecified; B37.2 Candidiasis of skin and nail; E11.622 Type 2 diabetes mellitus with other skin ulcer; E11.65 Type 2 diabetes mellitus with hyperglycemia
CPT/HCPCS: 99213

== ENCOUNTER 2022-07-21 04:12 | Inpatient (IN) | payer MEDICARE, MEDICAID ==
[~2022-07-21] VITALS: Ht 182 cm; Wt 135.5 kg
[~2022-07-21 04:12] MED LIST changes: +MONT-47 PO; -MONT10TA21 PO
[2022-07-21] MEDS ORDERED: ACETAMINOPHEN 500 MG TAB (TYLENOL) PO PRN (04:30)
[2022-07-21] MEDS ORDERED: CEFEPIME INJECTION 1,000 MG in NS (IVPB) 50 ML IV ONE (04:30)
[2022-07-21] MEDS ORDERED: NS IV 1000 ML 1,000 ML IV SCH (04:30)
[2022-07-21 04:37] LABS: BASOPHILS % (AUTO) 1 % (0-10); EOSINOPHILS # (AUTO) 0.4 10^3/uL (0.0-0.3); EOSINOPHILS % (AUTO) 5 % (0-10); HEMATOCRIT 33 % (40-54); LYMPHOCYTES % (AUTO) 24 % (12-44); MEAN CORPUSCULAR HEMOGLOBIN 26 pg (25-34); MEAN CORPUSCULAR HGB CONC 31 g/dL (32-36); MEAN CORPUSCULAR VOLUME 86 fL (80-99); MEAN PLATELET VOLUME 9.9 fL (9.0-12.2); MONOCYTES % (AUTO) 12 % (0-12); NEUTROPHILS # (AUTO) 4.9 10^3/uL (1.8-7.8); NEUTROPHILS % (AUTO) 59 % (42-75); PLATELET COUNT 204 10^3/uL (130-400); WHITE BLOOD COUNT 8.3 10^3/uL (4.3-11.0)
--- NOTE | 2022-07-21 04:39 | ED Respiratory ---
General Chief Complaint: Respiratory Problems Stated Complaint: SOA Source: patient, old records History of Present Illness Date Seen by Provider: Jul 21, 2022 Time Seen by Provider: 04:20 Initial Comments PT ARRIVES VIA EMS FROM HOME--NO PSYCHOLOGY DEPARTMENT CHAIR THERE SINCE FRIDAY EVENING, AND WILL NOT BE THERE AGAIN UNTIL FRIDAY. LIVES WITH . PT C/O SHORTNESS OF BREATH PT IS O2 DEPENDENT AT 3L/NC CONTINUOUSLY STATES SHORTNESS OF BREATH HAS BEEN WORSE THIS LAST WEEK, AND HAS HAD A COUGH ALL WEEK. PT WAS ADMITTED HERE -06/17-06/19/22 FOR COPD EXACERBATION / ACUTE ON CHRONIC RESP FAILURE WITH HYPOXIA, AND URI HE WAS DISMISSED HOME ON CEFDINIR PT STATES HE SAW SOMEONE AT [facility] THIS WEEK AND WAS TOLD HE HAD PNEUMONIA AGAIN AND WAS PLACED ON UNKNOWN ANTIBIOTIC. ( NOT LISTED IN MED RECONCILIATION / EXTERNAL MED HISTORY) HE STATES HE IS HERE TONIGHT BECAUSE HE CAN'T STOP COUGHING HE ALSO C/O CHEST PAIN --LATER STATES IT IS MOSTLY FROM COUGHING NO KNOWN FEVER NO CHANGE IN CHRONIC LEG EDEMA PT IS NON-AMBULATORY HE HAS HAD A MULTITUDE OF VISITS, AND PER HIS USUAL, HE CALLS EMS WHEN HE DOES NOT HAVE A PSYCHOLOGY DEPARTMENT CHAIR, AND WANTS TO COME TO THE HOSPITAL. PT HAS HAD MULTIPLE EPISODES OF PNEUMONIA PCP: [facility] Allergies and Home Medications Allergies Coded Allergies: Serotonin 5HT-3 Antagonists (Unverified Allergy, Unknown, 11/25/17) Tricyclic Antidepressants and Tricy (Unverified Allergy, Unknown, 11/25/17) codeine (Verified Allergy, Unknown, pt has rec Morphine in the past, 11/20/21) hydrocodone (Unverified Allergy, Unknown, 10/16/15) aspirin (Unverified Adverse Reaction, Mild, STOMACH IRRITATION, 11/25/17) Patient Home Medication List Home Medication List Reviewed: Yes Acetaminophen (Tylenol Extra Strength) 500 Mg Tablet, 1,000 MG PO Q8H, (Repo rted) Entered as Reported by: EDISON PRESTON on 06/18/22 1430 Albuterol Sulfate (Albuterol Sulfate) 2.5 Mg/3 Ml (0.083 %) Vial.neb, 2.5 MG NEB Q6H PRN for SHORTNESS OF BREATH, (Reported) Entered as Reported by: HILARY APPIAH on 04/23/19 1223 Amlodipine Besylate (Amlodipine Besylate) 10 Mg Tablet, 10 MG PO DAILY, ( Reported) Entered as Reported by: HILARY APPIAH on 12/27/15 0851 Atorvastatin Calcium (Atorvastatin Calcium) 20 Mg Tablet, 20 MG PO DAILY, (Reported) Entered as Reported by: EDISON PRESTON on 06/18/22 1430 Cefdinir (Cefdinir) 300 Mg Capsule, 300 MG PO BID Prescribed by: MARSHAL SANDERS on 06/19/22 1120 Cholecalciferol (Vitamin D3) (Vitamin D3) 50 Mcg (2000 Unit) Capsule, 50 MCG PO DAILY, (Reported) Entered as Reported by: EDISON PRESTON on 06/18/22 1430 Clonazepam (Clonazepam) 1 Mg Tablet, 1 MG PO TID, (Reported) Entered as Reported by: HILARY APPIAH on 12/27/15 0851 Donepezil HCl (Donepezil HCl) 5 Mg Tablet, 5 MG PO HS, (Reported) Entered as Reported by: EDISON PRESTON on 04/06/21 1126 Doxazosin Mesylate (Doxazosin Mesylate) 4 Mg Tablet, 4 MG PO 1800, (Reported) Entered as Reported by: CARIN PRINGLE on 05/27/15 1136 Guaifenesin/Dextromethorphan (Guaifenesin Dm Syrup) 100 Mg-10 Mg/5 Ml Syrup, 20 ML PO Q6H PRN for COUGH, (Reported) Entered as Reported by: EDISON PRESTON on 06/18/22 1505 Guaifenesin/Dextromethorphan (Robitussin Honey Max Dm Liquid) 100 Mg-5 Mg/5 Ml Liquid, 20 ML PO Q6H PRN for COUGH, (Reported) Entered as Reported by: EDISON PRESTON on 06/18/22 1505 Hydrochlorothiazide (Hydrochlorothiazide) 25 Mg Tablet, 25 MG PO DAILY, (Reported) Entered as Reported by: EDISON PRESTON on 04/06/21 1126 Loratadine (Loratadine) 10 Mg Tablet, 10 MG PO DAILY, (Reported) Entered as Reported by: HILARY APPIAH on 04/23/19 1009 Mirabegron (Myrbetriq) 25 Mg Tab.er.24h, 25 MG PO 1800, (Reported) Entered as Reported by: KRYSTIN NEWMAN on 01/26/17 1802 Montelukast Sodium (Montelukast Sodium) 10 Mg Tablet, 10 MG PO HS, (Reported) Entered as Reported by: EDISON PRESTON on 11/20/21 1253 Pregabalin (Pregabalin) 100 Mg Capsule, 100 MG PO TID, (Reported) Entered as Reported by: EDISON PRESTON on 04/06/21 1126 Rivastigmine (Rivastigmine) 1 Each Patch.td24, 4.6 MG TD DAILY, (Reported) Entered as Reported by: KRYSTIN NEWMAN on 01/26/17 1802 Vilazodone HCl (Vilazodone HCl) 10 Mg Tablet, 10 MG PO HS, (Reported) Entered as Reported by: EDISON PRESTON on 11/20/21 1253 Review of Systems Review of Systems Constitutional: no symptoms reported EENTM: no symptoms reported Respiratory: see HPI, cough, short of breath Cardiovascular: see HPI, chest pain Gastrointestinal: no symptoms reported Genitourinary: no symptoms reported Musculoskeletal: see HPI Skin: other (PT STATES HE IS BEING TREATED FOR BED SORES ON HIS BUTTOCKS, WELL YEAST IN HIS GENITAL AREA AND SKIN FOLDS. ) Psychiatric/Neurological: No Symptoms Reported Hematologic/Lymphatic: No Symptoms Reported Immunological/Allergic: no symptoms reported Past Emikoop-Hvkghz-Zyneqw Hx Immunizations Up To Date Tetanus Booster (TDap): Unknown PED Vaccines UTD: No First/Initial COVID19 Vaccinat: NOV 2020 Second COVID19 Vaccination Jack: DEC 2020 Third COVID19 Vaccination Date: 2021 Seasonal Allergies Seasonal Allergies: Yes Past Medical History Surgery/Hospitalization HX: PROSTATE SURGERY, Pt recently had heart cath Surgeries: Yes (RIGHT EYELID BASAL CELL CANCER; HERNIA REPAIR X 4, PER PT ) Abdominal, Adenoidectomy, Cardiac, Eye Surgery, Orthopedic, Prostatectomy, Tonsillectomy Respiratory: Yes (O2 DEPENDENT AT 3L/NC CONTINUOUSLY;MULTIPLE EPISODES OF PNEUMONIA) Asthma, Pneumonia, Chronic Bronchitis, COPD, Emphysema Currently Using CPAP: No Currently Using BIPAP: No Cardiac: Yes Chronic Edema/Swelling, Coronary Artery Disease, High Cholesterol, Hypertension Neurological: Yes Dementia Reproductive Disorders: No Sexually Transmitted Disease: No HIV/AIDS: No Genitourinary: Yes (PROSTATE CANCER > 10 YEARS AGO) Prostate Problems, Kidney Stones Gastrointestinal: Yes (S/P HERNIA REPAIR X 4, PER PT) Abdominal Hernia, Gastroesophageal Reflux, Chronic Constipation, Polyps, Hiatal Hernia Musculoskeletal: Yes (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) Degenerate Disk Disease, Osteoporosis, Arthritis, Chronic Back Pain Endocrine: Yes Diabetes, Non-Insulin dep HEENT: Yes (R EYELID BASAL CELL CANCER;SINUSITIS; NOSEBLEEDS) Cataract Loss of Vision: Right Hearing Impairment: Denies Cancer: Yes (PROSTATE CANCER, BASAL CELL CANCER OF RIGHT EYE) Prostate, Skin Did You Recieve Any Treatments: Yes What Type of Treatment Did You: Surgical Intervention Psychosocial: Yes Anxiety, Depression Integumentary: Yes (SKIN CANCER; PRESSURE ULCERS OF BUTTOCKS/SACRUM, Chronic pruritis) Blood Disorders: No Adverse Reaction/Blood Tranf: No Family Medical History FH: breast cancer G8 SISTER Myocardial infarction 19 FATHER Heart Disease CHRONIC GENERALIZED WEAKNESS, FREQUENT FALLS VERY POOR/VERY MINIMAL MOBILITY--HAS POWER CHAIR AND WALKER, WHICH HE HAS REFUSED TO USE AT HOME CHRONIC BILATERAL KNEE PAIN RIGHT EYELID BASAL 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 6.0oz. [id number]; 36.10 BMI Method:Estimated General Appearance: WD/WN, no apparent distress, obese (MORBIDLY OBESE), other (PT IS NOT DYSPNEIC, NO COUGHING NOTED AT ANY TIME. ABLE TO TALK IN FULL SENTENCES, DOES NOT APPEAR ILL OR TO BE IN ANY DISCOMFORT OR DISTRESS. MARKEDLY KYPHOTIC WITH 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. ) HEENT: other (CHRONIC LID AND GLOBE CHANGES TO RIGHT EYE. ) Neck: normal inspection Respiratory: no respiratory distress, no accessory muscle use, decreased breath sounds (DECREASED AERATION BILATERALLY); No rales, No rhonchi, No wheezing Cardiovascular: regular rate, rhythm, no murmur Gastrointestinal: non tender, soft Extremities: normal capillary refill, pedal edema (3-4+ EDEMA TO BILATERAL LOWER LEGS, WITH ERYTHEMA, AND SOME WARMTH, AND CHRONIC VENOUS STASIS CHANGES--NORMAL BASELINE FOR PT) Neurologic/Psychiatric: no motor/sensory deficits, alert, normal mood/affect, oriented x 3 (BUT POOR MEMORY--NORMAL BASELINE WITH HX OF DEMENTIA) Skin: normal color, warm/dry, other (EXTENSIVE YEAST INTERTRIGO TO GENITAL AREA. HE DOES HAVE SOME EARLY DECUBITUS AREAS ON BUTTOCKS, ) Focused Exam Sepsis Stage: Ruled Out Reason for ruling out sepsis: DOES NOT MEET CRITERIA Possible Source: Pulmonary Lactate Level 07/21/22 04:20: Lactic Acid Level 2.46*H Time of Focused Exam: 05:40 Respiratory: No Accessory Muscle Use, No Respiratory Distress, Other (INCREASED AERATION, NO WHEEZING, NO RALES, NO RHONCHI) Cardiovascular: Regular Rate, Rhythm Capillary Refill: Less Than 3 Seconds Skin: normal color, warm/dry Lactic Acid Level Laboratory Tests Test 07/21/22 04:20 Lactic Acid Level 2.46 MMOL/L (0.50-2.00) *H Within 3hrs of presentation: Admin fluids, Admin ABX, Blood cultures prior to ABX's, Focus exam, Lactate level Progress/Results/Core Measures Suspected Sepsis SIRS Temperature: Pulse: Respiratory Rate: Laboratory Tests 07/21/22 04:20: White Blood Count 8.3 Blood Pressure / Mean: 07/21/22 04:20: Lactic Acid Level 2.46*H Laboratory Tests 07/21/22 04:20: Creatinine 0.79, INR Comment 1.1, Platelet Count 204, Total Bilirubin 0.4 Results/Orders Lab Results Laboratory Tests Test 07/21/22 04:20 07/21/22 04:27 07/21/22 04:50 Range/Units White Blood Count 8.3 4.3-11.0 10^3/uL Red Blood Count 3.80 L 4.30-5.52 10^6/uL Hemoglobin 10.0 L 13.3-17.7 g/dL Hematocrit 33 L 40-54 % Mean Corpuscular Volume 86 80-99 fL Mean Corpuscular Hemoglobin 26 25-34 pg Mean Corpuscular Hemoglobin Concent 31 L 32-36 g/dL Red Cell Distribution Width 15.1 H 10.0-14.5 % Platelet Count 204 130-400 10^3/uL Mean Platelet Volume 9.9 9.0-12.2 fL Immature Granulocyte % (Auto) 0 % Neutrophils (%) (Auto) 59 42-75 % Lymphocytes (%) (Auto) 24 12-44 % Monocytes (%) (Auto) 12 0-12 % Eosinophils (%) (Auto) 5 0-10 % Basophils (%) (Auto) 1 0-10 % Neutrophils # (Auto) 4.9 1.8-7.8 10^3/uL Lymphocytes # (Auto) 2.0 1.0-4.0 10^3/uL Monocytes # (Auto) 1.0 0.0-1.0 10^3/uL Eosinophils # (Auto) 0.4 H 0.0-0.3 10^3/uL Basophils # (Auto) 0.0 0.0-0.1 10^3/uL Immature Granulocyte # (Auto) 0.0 0.0-0.1 10^3/uL Prothrombin Time 14.9 H 12.2-14.7 SEC INR Comment 1.1 0.8-1.4 Activated Partial Thromboplast Time 36 H 24-35 SEC Sodium Level 140 135-145 MMOL/L Potassium Level 4.0 3.6-5.0 MMOL/L Chloride Level 104 98-107 MMOL/L Carbon Dioxide Level 21 21-32 MMOL/L Anion Gap 15 H 5-14 MMOL/L Blood Urea Nitrogen 10 7-18 MG/DL Creatinine 0.79 0.60-1.30 MG/DL Estimat Glomerular Filtration Rate 87 BUN/Creatinine Ratio 13 Glucose Level 134 H 70-105 MG/DL Lactic Acid Level 2.46 *H 0.50-2.00 MMOL/L Calcium Level 9.0 8.5-10.1 MG/DL Corrected Calcium 9.1 8.5-10.1 MG/DL Magnesium Level 1.9 1.6-2.4 MG/DL Total Bilirubin 0.4 0.1-1.0 MG/DL Aspartate Amino Transf (AST/SGOT) 57 H 5-34 U/L Alanine Aminotransferase (ALT/SGPT) 29 0-55 U/L Alkaline Phosphatase 60 40-136 U/L Total Creatine Kinase 52 30-200 U/L Creatine Kinase MB 1.0 <6.6 NG/ML Troponin I < 0.028 <0.028 NG/ML B-Type Natriuretic Peptide 47.6 <100.0 PG/ML Total Protein 7.7 6.4-8.2 GM/DL Albumin 3.9 3.2-4.5 GM/DL Influenza Type A (RT-PCR) Not Detected Not Detecte Influenza Type B (RT-PCR) Not Detected Not Detecte SARS-CoV-2 RNA (RT-PCR) Not Detected Not Detecte Urine Color YELLOW Urine Clarity SL CLOUDY Urine pH 6.0 5-9 Urine Specific [place] 1.020 1.016-1.022 Urine Protein NEGATIVE NEGATIVE Urine Glucose (UA) NEGATIVE NEGATIVE Urine Ketones NEGATIVE NEGATIVE Urine Nitrite NEGATIVE NEGATIVE Urine Bilirubin NEGATIVE NEGATIVE Urine Urobilinogen 0.2 < = 1.0 MG/DL Urine Leukocyte Esterase NEGATIVE NEGATIVE Urine RBC (Auto) 3+ H NEGATIVE Urine RBC 50-100 H /HPF Urine WBC 0-2 /HPF Urine Crystals NONE /LPF Urine Bacteria TRACE /HPF Urine Casts NONE /LPF Urine Mucus NEGATIVE /LPF Urine Culture Indicated NO My Orders Orders - ROBBY LEWIS DO Ed Iv/Invasive Line Start (07/21/22 04:22) Ekg Tracing (07/21/22 04:22) O2 (07/21/22 04:22) Monitor-Rhythm Ecg Trace Only (07/21/22 04:22) Chest 1 View, Ap/Pa Only (07/21/22 04:22) Bnp Jessa (07/21/22 04:22) Cbc With Automated Diff (07/21/22 04:22) Comprehensive Metabolic Panel (07/21/22 04:22) Creatine Kinase (07/21/22 04:22) Creatine Kinase Mb (07/21/22 04:22) Magnesium (07/21/22 04:22) Protime With Inr (07/21/22 04:22) Partial Thromboplastin Time (07/21/22 04:22) Troponin I Emmons (07/21/22 04:22) Covid 19 Inhouse Test (07/21/22 04:22) Influenza A And B By Pcr (07/21/22 04:22) Isolation Central Supply Req (07/21/22 04:22) Blood Culture (07/21/22 04:22) Sputum Culture (07/21/22 04:22) Urinalysis (07/21/22 04:22) Urine Culture (07/21/22 04:22) Acetaminophen Tablet (Tylenol Tablet) (07/21/22 04:30) Ed Iv/Invasive Line Start (07/21/22 04:22) Vital Signs Adult Sepsis Patie Q15M (07/21/22 04:22) Remove Rings In Anticipation O (07/21/22 04:22) Lactic Acid Analyzer (07/21/22 04:22) Cefepime Injection (Maxipime Injection) (07/21/22 04:30) Ed Iv/Invasive Line Start (07/21/22 04:22) Ns Iv 1000 Ml (Sodium Chloride 0.9%) (07/21/22 04:30) Catheter(Urinary) Insert & Ass 03,15 (07/21/22 04:43) Lidocaine 2% (Urojet) (Xylocaine Urojet) (07/21/22 04:45) Methylprednisolone Sod Succ (Solu-Medrol (07/21/22 04:45) Albuterol/Ipra Inhalation Soln (Duoneb I (07/21/22 04:45) Dexamethasone Injection (Decadron Injec (07/21/22 04:45) Rt Request For Service (07/21/22 04:43) Svn Small Volume Nebulizer (07/21/22 04:43) Ed Admission (Communication) (07/21/22 05:45) Medications Given in ED Current Medications Medications Dose Ordered Sig/Bernice Route Start Time Stop Time Status Last Admin Dose Admin Acetaminophen 1,000 mg ONCE PRN PO 07/21/22 04:30 07/21/22 04:44 DC 07/21/22 04:43 1,000 MG Albuterol/ Ipratropium 3 ml ONCE ONCE INH 07/21/22 04:45 07/21/22 04:46 DC 07/21/22 05:02 3 ML Cefepime HCl 1000 mg/Sodium Chloride 50 ml @ 100 mls/hr ONCE ONCE IV 07/21/22 04:30 07/21/22 04:59 DC 07/21/22 04:43 100 MLS/HR Dexamethasone Sodium Phosphate 20 mg ONCE ONCE IH 07/21/22 04:45 07/21/22 04:46 DC 07/21/22 05:02 20 MG Methylprednisolone Sodium Succinate 125 mg ONCE ONCE IVP 07/21/22 04:45 07/21/22 04:46 DC 07/21/22 04:50 125 MG Vital Signs/I&O 07/21/22 07/21/22 07/21/22 07/21/22 04:12 04:12 04:12 04:54 Temp 36.8 36.8 Pulse 80 78 Resp 20 20 B/P (MAP) 145/67 (93) 157/77 Pulse Ox 95 95 96 O2 Delivery Nasal Cannula Nasal Cannula Nasal Cannula Nasal Cannula O2 Flow Rate 3.00 3.00 3.00 3.00 07/21/22 05:03 Pulse Ox 96 O2 Delivery Nasal Cannula O2 Flow Rate 3.00 FiO2 32 Capillary Refill : Progress Note : Progress Note PLACED IN ISOLATION ROOM PPE WORN COVID AND FLU TESTING DONE SEPSIS PROTOCOL INITIATED CHEST PAIN PROTOCOL INITIATED. GIVEN: -IV FLUIDS -ANTIBIOTICS -SOLU-MEDROL -NEB TREATMENT NO ASPIRIN GIVEN DUE TO HISTORY OF ASPIRIN ALLERGY. PT IS AFEBRILE ON ARRIVAL O2 SAT 95% ON ROOM AIR ON PT'S NORMAL 3L/NC, PT IS NOT DYSPNEIC. NO TACHYCARDIA OR HYPOTENSION AT ANY TIME NORMAL WBC, WITH ELEVATED LACTIC ACID 2.46 PT DID NOT COUGH A SINGLE TIME DURING ENTIRE ER STAY NO COMPLAINTS OF DYSPNEA OR CHEST PAIN AT ANY TIME FOR REMAINDER OF ER STAY NO DYSPNEA NO HYPOXIA NO FEVER NO DETERIORATION IN PT'S CONDITION DURING ER STAY NO EVIDENCE OF ACUTE CORONARY SYNDROME OR DETERIORATION IN RESPIRATORY CONDITION. DISCUSSED TEST RESULTS, AND PT AGREES TO ADMIT DISCUSSED WITH PT HIS INCREASING NEED FOR ASSISTANCE AT HOME, HIS INABILITY TO CARE FOR HIMSELF--HE IS ESSENTIALLY BED BOUND NOW, AND IS UNABLE TO TAKE CARE OF HIM. HE HAS HAD INCREASED FREQUENCY OF ER VISITS, AND INCREASED NUMBER 0F CALLS TO EMS, ESPECIALLY SOON [facility] LEAVE FOR THE DAY / WEEKEND. ADVISED THAT HE SHOULD CONSIDER HALFWAY PLACEMENT, AND HE STATES HE WILL DISCUSS WITH HIS , WELL THE DR. REVIEWED PRIOR RECORDS, INCLUDING ER VISITS, ADMITS/H&P'S/CONSULTS/DISCHARGE SUMMARIES, TESTS/PROCEDURES. COMPLEX MANAGEMENT DUE TO MULTIPLE CO-MORBIDITIES ECG Initial ECG Impression Date: Jul 21, 2022 Initial ECG Impression Time: 04:27 Initial ECG Rate: 79 Initial ECG Rhythm: Normal Sinus (MUCH ARTIFACT; LAFT) Initial ECG Intervals UT 200 QRS 109 QT/QTC 403/463 Initial ECG Impression: Nonspecific Changes Initial ECG Comparisson: Unchanged Comment INTERPRETED BY ME Diagnostic Imaging Comments CXR--PENDING RADIOLOGIST REVIEW POOR INSPIRATION, POSSIBLE VENOUS CONGESTION, POSSIBLE ATELECTASIS VS INFILTRATE. Reviewed: Reviewed by Me Departure Communication (Admissions) 0642--SPOKE WITH DR. SANDERS, HOSPITALIST FOR [facility]. ACCEPTS PT FOR ADMIT. SHE WILL DO ADMIT ORDERS. DISCUSSED NEED FOR HALFWAY PLACEMENT WHEN HE IS DISMISSED. 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 Referrals: [facility] (PCP/Family) Primary Care Physician ROBBY LEWIS DO Jul 21, 2022 04:39
[2022-07-21 04:44] LABS: ALBUMIN 3.9 GM/DL (3.2-4.5); CHLORIDE 104 MMOL/L (98-107); SODIUM 140 MMOL/L (135-145)
[2022-07-21] MEDS ORDERED: RT-ALBUTEROL/IPRATROPIUM 3 ML (DUONEB) VIAL INH ONE (04:45)
[2022-07-21] MEDS ORDERED: methylPREDNISolone 125 MG (Solu-MEDROL) VIAL IVP ONE (04:45)
[2022-07-21] MEDS ORDERED: LIDOCAINE UROJET 2% GEL 10 ML PKG TOP ONE (04:45)
[2022-07-21 04:46] LABS: GLUCOSE 134 MG/DL (70-105); TOTAL PROTEIN 7.7 GM/DL (6.4-8.2)
[2022-07-21 04:47] LABS: CARBON DIOXIDE 21 MMOL/L (21-32)
[2022-07-21 04:48] LABS: BILIRUBIN,TOTAL 0.4 MG/DL (0.1-1.0); INR 1.1 (0.8-1.4); PROTHROMBIN TIME PATIENT 14.9 SEC (12.2-14.7)
[2022-07-21 04:50] LABS: ALKALINE PHOSPHATASE 60 U/L (40-136); CREATININE SERUM 0.79 MG/DL (0.60-1.30); GFR ESTIMATED 87
[2022-07-21 04:51] LABS: BUN/CREATININE RATIO 13
[2022-07-21 04:52] LABS: MAGNESIUM 1.9 MG/DL (1.6-2.4)
[2022-07-21 04:53] LABS: ALANINE AMINOTRANSFERASE 29 U/L (0-55); CREATINE KINASE 52 U/L (30-200)
[2022-07-21 04:57] LABS: BILIRUBIN,URINE NEGATIVE (NEGATIVE); CLARITY,URINE SL CLOUDY; COLOR,URINE YELLOW; GLUCOSE, URINE (UA) NEGATIVE (NEGATIVE); KETONES,URINE NEGATIVE (NEGATIVE); LEUKOCYTE ESTERASE ,URINE NEGATIVE (NEGATIVE); NITRITE,URINE NEGATIVE (NEGATIVE); PROTEIN,URINE NEGATIVE (NEGATIVE)
[2022-07-21 05:09] LABS: BACTERIA,URINE TRACE /HPF; RBC,URINE 50-100 /HPF; WBC,URINE 0-2 /HPF
--- NOTE | 2022-07-21 06:13 | Diagnostic Imaging Report ---
CLINICAL INDICATION: Patient with dyspnea. EXAM: Portable chest x-ray upright view. COMPARISON: Chest x-ray dated 06/17/2022. FINDINGS: Lungs/pleura: There is mild airspace opacities involving both lung bases which may represent atelectasis versus infiltrates. There is no pneumothorax. There is no pleural effusion. Mediastinum: Unremarkable. Pulmonary vasculature: There is mild pulmonary vascular congestion which is most pronounced centrally. Heart: There is mild cardiomegaly. Bones/extrathoracic soft tissue: There are degenerative spurs involving the thoracic spine. IMPRESSION: 1: There is cardiomegaly with mild pulmonary vascular congestion which is most pronounced centrally and may be seen with congestive heart failure. 2: There is mild airspace opacities involving lung bases which may be related to atelectasis versus infiltrates. I agree with the Emergency Room clinician's preliminary impression. Dictated by: Dictated on workstation # [id number]
--- NOTE | 2022-07-21 06:35 | History & Physical-Hospitalist ---
History of Present Illness HPI/Chief Complaint CC: Acute on chronic respiratory failure with suspected pneumonia HPI: This is a very debilitated 86yoWM clinic patient of [facility] who comes to the hospital often usually related to caregiver lapse on the weekends who presented to the ER with dyspnea and was found to have AECOPD and suspected pneumonia. Patient insists on residing at home and resists NH placement which he has needed for months. He changes PCP's often but it appears he is with [facility] this time. No pain reported. Fischer cath in place. Cough is reported. Source: patient Exam Limitations: no limitations Date Seen 07/21/22 Time Seen by a Provider: 11:00 Attending Physician [facility] PCP Admitting Physician: Lorene Wan DO Attending Physician: Lorene Wan DO Referring Physician Date of Admission Jul 21, 2022 at 06:30 Home Medications & Allergies Home Medications Reviewed patient Home Medication Reconciliation performed by pharmacy medication reconciliations racking technician and/or nursing. Patients Allergies have been reviewed. Allergies Allergies Coded Allergies Serotonin 5HT-3 Antagonists (Unverified Allergy, Unknown, 11/25/17) Tricyclic Antidepressants and Tricy (Unverified Allergy, Unknown, 11/25/17) codeine (Verified Allergy, Unknown, pt has rec Morphine in the past, 11/20/21) hydrocodone (Unverified Allergy, Unknown, 10/16/15) aspirin (Unverified Adverse Reaction, Mild, STOMACH IRRITATION, 11/25/17) Past Gyrmgbg-Reimik-Lwvpja Hx Patient Social History Marrital Status: single Employed/Student: retired Tobacco Use?: No Smoking Status: Former Smoker Substance use?: No Alcohol Use?: No Immunizations Up To Date Date of Influenza Vaccine: Jan 29, 2022 First/Initial COVID19 Vaccinat: NOV 2020 Second COVID19 Vaccination Jack: DEC 2020 Tetanus Booster (TDap): Less Than 5 Years Hepatitis A: Yes Hepatitis B: Yes PED Vaccines UTD: No Date of Pneumonia Vaccine: Mar 31, 2016 Seasonal Allergies Seasonal Allergies: Yes Current Status Primary Language: Arabic Preferred Spoken Language: Arabic Is interpretation needed?: No Past Medical History Surgeries: Abdominal, Adenoidectomy, Cardiac, Eye Surgery, Orthopedic, Prostatectomy, Tonsillectomy Asthma, Pneumonia, Chronic Bronchitis, COPD, Emphysema Currently Using CPAP: No Currently Using BIPAP: No Chronic Edema/Swelling, Coronary Artery Disease, High Cholesterol, Hypertension Dementia Sexually Transmitted Disease: No HIV/AIDS: No Prostate Problems, Kidney Stones Abdominal Hernia, Gastroesophageal Reflux, Chronic Constipation, Polyps, Hiatal Hernia Degenerate Disk Disease, Osteoporosis, Arthritis, Chronic Back Pain Diabetes, Non-Insulin dep Cataract Loss of Vision: Right Hearing Impairment: Denies Prostate, Skin Did You Recieve Any Treatments: Yes What Type of Treatment Did You: Surgical Intervention Anxiety, Depression Blood Disorders: No Adverse Reaction/Blood Tranf: No PMHx: COPD, supplemental oxygen dependent HTN Prostate cancer DMII Osteoarthritis of multiple joints Dementia GERD Anxiety Hyperlipidemia Allergic rhinitis Alzheimer disease SurgHx: Prostatectomy Hernia repair x 2 Cataract Wrist fracture Right eyelid basal cell carcinoma removal Family Medical History FH: breast cancer G8 SISTER Myocardial infarction 19 FATHER Heart Disease CHRONIC GENERALIZED WEAKNESS, FREQUENT FALLS VERY POOR/VERY MINIMAL MOBILITY--HAS POWER CHAIR AND WALKER, WHICH HE HAS REFUSED TO USE AT HOME CHRONIC BILATERAL KNEE PAIN RIGHT EYELID BASAL 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 6.0oz. 113.925491zu; 36.00 BMI Method:Estimated General Appearance: No Apparent Distress, Chronically ill Respiratory: No Accessory Muscle Use, No Respiratory Distress, Crackles, Decreased Breath Sounds Cardiovascular: Regular Rate, Rhythm Neurologic/Psychiatric: Alert, Oriented x3, Motor Weakness (generalized) Results Results/Procedures Labs Laboratory Tests 07/21/22 04:20 Patient resulted labs reviewed. Assessment/Plan Admission Diagnosis Assessment: Acute on chronic respiratory failure Suspected pneumonia AECOPD ADvanced age Chronic debility HTN HLP BPH Plan: ABx IV steroids O2 Home meds Admission Status: Observation Reason for Inpatient Admission: hypoxia Diagnosis/Problems Diagnosis/Problems (1) Acute on chronic respiratory failure with hypoxia Status: Acute (2) Generalized weakness Status: Acute (3) Frequent falls Status: Acute (4) Unable to care for self Status: Acute (5) Decubitus ulcer of left buttock, stage 2 Status: Acute (6) COPD (chronic obstructive pulmonary disease) Status: Chronic (7) Type 2 diabetes mellitus Status: Chronic (8) Dementia Status: Chronic (9) Oxygen dependent Status: Chronic (10) Hypertension Status: Chronic (11) Alzheimer disease Status: Chronic (12) BPH (benign prostatic hyperplasia) Status: Chronic LORENE WAN DO Jul 21, 2022 06:35
[2022-07-21] MEDS ORDERED: diphenhydrAMINE 25 MG TAB (BENADRYL) PO PRN (07:45)
[2022-07-21] MEDS ORDERED: ACETAMINOPHEN 325 MG TABLET PO PRN (07:45)
[2022-07-21] MEDS ORDERED: ANTACID SUSP 30 ML UDC (MYLANTA) PO PRN (07:45)
[2022-07-21] MEDS ORDERED: HYDROmorphone 2 MG/ML VIAL (DILAUDID) IV PRN (07:45)
[2022-07-21] MEDS ORDERED: BISACODYL 10 MG SUPP (DULCOLAX) PR PRN (07:45)
[2022-07-21] MEDS ORDERED: LACTULOSE SYRUP 10GM/15ML (ENULOSE) 30ML UDC PO PRN (07:45)
[2022-07-21] MEDS ORDERED: CALCIUM CARBONATE 500 MG (TUMS) TAB.CHEW PO PRN (07:45)
[2022-07-21] MEDS ORDERED: polyethylene glycoL POWDER 17 GM (MIRALAX) PACK PO PRN (07:45)
[2022-07-21] MEDS ORDERED: diphenhydrAMINE 50 MG/ML INJ (BENADRYL) IVP PRN (07:45)
[2022-07-21] MEDS ORDERED: MILK OF MAGNESIA 400 MG/5 ML 30 ML UDC PO PRN (07:45)
[2022-07-21] MEDS ORDERED: PHARMACY TO DOSE IV SCH (07:45)
[2022-07-21] MEDS ORDERED: MELATONIN 3 MG TABLET PO PRN (07:45)
[2022-07-21 07:58] VITALS: BP 175/78
[2022-07-21] MEDS ORDERED: VANCOMYCIN 2000 MG/NS 500 ML IVPB IV NR ×2 (08:30)
[2022-07-21] MEDS: DOCUSATE SODIUM 100 MG (COLACE) CAP PO SCH ×2 (08:48→20:07)
[2022-07-21] MEDS: SENNOSIDES 8.6 MG (SENOKOT) TAB PO SCH ×2 (08:48→20:08)
[2022-07-21 08:50] VITALS: BP 168/75
[2022-07-21] MEDS: NS IV 1000 ML 1,000 ML IV SCH ×2 (08:54→23:22)
[2022-07-21] MEDS: ENOXAPARIN 40 MG/0.4 ML (LOVENOX) SYR SC SCH (08:56)
[2022-07-21] MEDS ORDERED: methylPREDNISolone 40 MG/ML (Solu-MEDROL) VIAL IV SCH (09:00)
[2022-07-21] MEDS ORDERED: CEFEPIME INJECTION 2,000 MG in NS (IVPB) 50 ML IV SCH (09:00)
[2022-07-21 11:28] VITALS: BP 153/65
[2022-07-21 11:29] VITALS: BP 153/65
[2022-07-21] MEDS: CEFEPIME 1,000 MG/NS 50 ML IVPB IV SCH ×6 (12:18→22:36)
[2022-07-21] MEDS ORDERED: METF-397 PO (12:50)
[2022-07-21] MEDS: RT-ALBUTEROL/IPRATROPIUM 3 ML (DUONEB) VIAL INH SCH ×2 (14:36→19:19)
[2022-07-21 15:43] VITALS: BP 157/71
[2022-07-21] MEDS: methylPREDNISolone 40 MG/ML (Solu-MEDROL) VIAL IV SCH (18:05)
[2022-07-21 19:59] VITALS: BP 153/66
[2022-07-21] MEDS: VANCOMYCIN 1250 MG/NS 250 ML PREMIX IV SCH (20:08)
[2022-07-21] MEDS ORDERED: LORazepam 1 MG (ATIVAN) TAB PO PRN (23:15)
[2022-07-21] MEDS ORDERED: ZIPRASIDONE 20 MG INJ (GEODON) VIAL IM PRN (23:15)
[2022-07-21] MEDS ORDERED: LORazepam INJ 2 MG/ML (ATIVAN) VIAL IVP PRN (23:15)
[2022-07-21] MEDS ORDERED: WATER (STERILE) FOR INJ 10 ML BTL INJ SCH (23:15)
[2022-07-22] VITALS (7 sets, daily range): BP systolic 123–160; BP diastolic 60–74
[2022-07-22] MEDS: CEFEPIME 1,000 MG/NS 50 ML IVPB IV SCH ×6 (04:09→16:57)
[2022-07-22] MEDS: methylPREDNISolone 40 MG/ML (Solu-MEDROL) VIAL IV SCH (04:09)
[2022-07-22] MEDS: NS IV 1000 ML 1,000 ML IV SCH ×2 (04:19→21:48)
[2022-07-22 05:57] LABS: BASOPHILS % (AUTO) 0 % (0-10); EOSINOPHILS % (AUTO) 0 % (0-10); HEMATOCRIT 32 % (40-54); HEMOGLOBIN 9.9 g/dL (13.3-17.7); LYMPHOCYTES # (AUTO) 1.3 10^3/uL (1.0-4.0); LYMPHOCYTES % (AUTO) 12 % (12-44); MEAN CORPUSCULAR HEMOGLOBIN 26 pg (25-34); MEAN CORPUSCULAR HGB CONC 31 g/dL (32-36); MEAN CORPUSCULAR VOLUME 84 fL (80-99); MEAN PLATELET VOLUME 10.4 fL (9.0-12.2); MONOCYTES # (AUTO) 0.8 10^3/uL (0.0-1.0); MONOCYTES % (AUTO) 8 % (0-12); NEUTROPHILS # (AUTO) 8.5 10^3/uL (1.8-7.8); NEUTROPHILS % (AUTO) 79 % (42-75); PLATELET COUNT 195 10^3/uL (130-400); WHITE BLOOD COUNT 10.7 10^3/uL (4.3-11.0)
[2022-07-22 06:14] LABS: ALBUMIN 3.7 GM/DL (3.2-4.5)
[2022-07-22 06:16] LABS: CALCIUM 8.7 MG/DL (8.5-10.1)
[2022-07-22 06:17] LABS: TOTAL PROTEIN 7.4 GM/DL (6.4-8.2)
[2022-07-22 06:19] LABS: BILIRUBIN,TOTAL 0.3 MG/DL (0.1-1.0)
[2022-07-22 06:20] LABS: CREATININE SERUM 0.82 MG/DL (0.60-1.30)
[2022-07-22] MEDS: VANCOMYCIN 1250 MG/NS 250 ML PREMIX IV SCH ×2 (08:08→21:26)
[2022-07-22] MEDS: ENOXAPARIN 40 MG/0.4 ML (LOVENOX) SYR SC SCH (08:13)
[2022-07-22] MEDS: DOCUSATE SODIUM 100 MG (COLACE) CAP PO SCH ×2 (08:21→19:39)
[2022-07-22] MEDS: SENNOSIDES 8.6 MG (SENOKOT) TAB PO SCH ×2 (08:21→19:40)
[2022-07-22] MEDS: RT-ALBUTEROL/IPRATROPIUM 3 ML (DUONEB) VIAL INH SCH ×3 (08:43→22:02)
[2022-07-22] MEDS ORDERED: RESTFUL LEGS PO (10:13)
[2022-07-22] MEDS ORDERED: DIPH25TA31 PO (10:16)
[2022-07-22] MEDS ORDERED: NYST60PO TP (10:17)
[2022-07-22] MEDS ORDERED: [UNRECOGNIZED DRUG - CODE] PO (10:17)
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
--- NOTE | 2022-07-22 11:34 | Progress Note ---
Subjective Subjective/Events-last exam Wanting to go home. Coughing some again today. states he did well when on one cough medicine but doesn't recall what it was. He and state he is doing fine at home and deny concerns. Has home health planned but cancelled due to being inpatient, declines alf consideration. Focused Exam Lactate Level 07/21/22 04:20: Lactic Acid Level 2.46*H 07/21/22 08:52: Lactic Acid Level 3.44*H Time of Focused Exam: 05:40 Objective Exam Last Set of Vital Signs Vital Signs Date Time Temp Pulse Resp B/P (MAP) Pulse Ox O2 Delivery O2 Flow Rate FiO2 07/22/22 11:10 36.7 86 20 148/65 (92) 90 Nasal Cannula 3.00 07/21/22 05:03 32 Capillary Refill : Less Than 3 Seconds I&O Intake and Output 07/22/22 00:00 Intake Total 3180 ml Output Total 3150 ml Balance 30 ml Intake Oral 1210 ml IV Total 1970 ml Output Urine Total 3150 ml # Bowel Movements 2 Daily Weight Change No General: Alert Lungs: Clear to Auscultation Heart: Regular Rate Abdomen: Normal Bowel Sounds, Soft Extremities: Other (2-3+ edema top of feet bilaterally) Skin: Other (erythematous patches on both shins, erythema and excoriation in inguinal region) Results/Procedures Lab Laboratory Tests 07/22/22 05:27: White Blood Count 10.7, Red Blood Count 3.76L, Hemoglobin 9.9L, Hematocrit 32L, Mean Corpuscular Volume 84, Mean Corpuscular Hemoglobin 26, Mean Corpuscular Hemoglobin Concent 31L, Red Cell Distribution Width 15.1H, Platelet Count 195, Mean Platelet Volume 10.4, Immature Granulocyte % (Auto) 1, Neutrophils (%) (Auto) 79H, Lymphocytes (%) (Auto) 12, Monocytes (%) (Auto) 8, Eosinophils (%) (Auto) 0, Basophils (%) (Auto) 0, Neutrophils # (Auto) 8.5H, Lymphocytes # (Auto) 1.3, Monocytes # (Auto) 0.8, Eosinophils # (Auto) 0.0, Basophils # (Auto) 0.0, Immature Granulocyte # (Auto) 0.1, Sodium Level 136, Potassium Level 4.0, Chloride Level 105, Carbon Dioxide Level 19L, Anion Gap 12, Blood Urea Nitrogen 13, Creatinine 0.82, Estimat Glomerular Filtration Rate 86, BUN/Creatinine Ratio 16, Glucose Level 210H, Calcium Level 8.7, Corrected Calcium 8.9, Total Bilirubin 0.3, Aspartate Amino Transf (AST/SGOT) 35H, Alanine Aminotransferase (ALT/SGPT) 24, Alkaline Phosphatase 52, Total Protein 7.4, Albumin 3.7 Microbiology 07/21/22 Urine Culture - Preliminary, Resulted NO GROWTH 07/21/22 Blood Culture - Preliminary, Resulted Streptococcus viridans See Comments Assessment/Plan Assessment/Plan (1) Pneumonia Status: Chronic Assessment & Plan: Possible recurrent pneumonia per xray. No leukocytosis or fever. On cefepime and vancomycin. Qualifiers: (2) COPD exacerbation Status: Acute Assessment & Plan: Change to oral prednisone. On baseline supplemental oxygen. 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 (4) Hypertension Status: Chronic Assessment & Plan: Resume home medications Qualifiers: Qualified Codes: I10 - Essential (primary) hypertension (5) BPH (benign prostatic hyperplasia) Status: Chronic Assessment & Plan: Resume home meds (6) Dementia Status: Chronic Assessment & Plan: Resume home meds (7) Type 2 diabetes mellitus Status: Chronic Assessment & Plan: Hold metformin with current lactic acidosis (8) COPD (chronic obstructive pulmonary disease) Status: Chronic (9) Unable to care for self Status: Acute Assessment & Plan: Declining any out of home placement. (10) Decubitus skin ulcer Status: Acute Assessment & Plan: Nonblanchable erythema noted per wound nurse, position changes and barrier cream. Qualifiers: (11) DVT prophylaxis Status: Acute Assessment & Plan: Enoxaparin ROBBY HANLEY MD Jul 22, 2022 11:34
--- NOTE | 2022-07-22 13:02 | ST Dysphagia Evaluation ---
Speech Evaluation-General Medical Diagnosis Acute on Chronic Respiratory Failure Onset Date: Jul 21, 2022 Therapy Diagnosis Therapy Diagnosis: Mild Oral Dysphagia Precautions Precautions: Fall, Pressure Ulcer, Aspiration Precautions/Isolations: Aspiration, Fall Prevention, Standard Precautions, Pressure Ulcer Referral Referring Physician: Dr. Castro Reason for Referral: Evaluation/Treatment Medical History Pertinent Medical History: CAD, COPD, DM, Dementia, HTN, Parkinson's Reviewed History: Yes Speech PLF/Current-Dysphagia Prior Level of Function The patient (and the patient's spouse) report the patient consumes a regular consistency diet with thin liquids at home. The patient (and the patient's spouse) denied s/s of suspected aspiration with any consistency he currently consumes. Subjective The patient was seated upright in his bed, awake and alert, upon entrance to his room by the clinician. The patient's spouse was at bedside and remained for the assessment. The patient greeted the clinician appropriately and was agreeable to participation in the clinical bedside swallowing evaluation. The patient and the patient's denied s/s of suspected aspiration with his current P.O. intake. Cognitive Status Patient Orientation: Person, Place, Situation Oral Motor Skills Dentition: Edentalous Current Food Consistancy: Regular, Thin Liquids Ability to Follow Directions: Good Oral Expression Ability: Mild Impairment Voice Voice Phonatory-Based Quality: Normal Voice Pitch: Normal Voice Loudness: Normal Face Facial Symmetry: Symmetrical Oral-Facial Assessment Oral-Facial Dentition: Normal Labial Seal Description: Normal Smile: Normal Lingual Protrusion: Normal Lingual ROM: Normal Lingual Strength: Normal Volitional Dry Swallow: Yes Voluntary Cough: Yes Can Clear Throat Volitionally: Yes Dysphagia Evaluation Consistencies Presented: Regular, Thin Liquid, Mechanical Soft, Pureed The patient displayed prolonged mastication with dry solid consistencies, with subsequent poor bolus formation. Laryngeal elevation was present to palpation. No pharyngeal impairments were present. The patient was presented thin liquids via teaspoon and straw, puree, soft solid, and solid consistencies. Overt s/s of suspected aspiration were not displayed with any consistency tested. Dietary Recommendations: Mechanical Soft (Soft and Bite Size) Liquid Recommendations: Thin Recommendations: - Soft and bite size (SB6) diet consistency with thin liquids, as tolerated. - Fully upright and alert for P.O. intake. - Small, single bites and sips. - Avoid dry, hard consistencies due to edentulous state. - Monitor for s/s of suspected aspiration with P.O. intake. If demonstrated, please contact speech pathology. - Speech pathology to monitor for diet tolerance. The results and recommendations were provided to the patient, the patient's , and the patient's RN immediately following completion. Dysphagia Evaluation Summary The patient displayed oral dysphagia characterized by prolonged mastication of dry, solid consistencies. Speech Short Term Goals Short Term Goals Short Term Goals 1. The patient will display safe swallowing precautions with 80% accuracy with mild verbal cueing. Time Frame-STG: Five Days. Speech Cake Decorator Goals Senior Care Goals 1. The patient will tolerate the least restrictive diet consistency without s/s of suspected aspiration. Time Frame: One Week. Speech-Plan Treatment Plan Speech Therapy Treatment Plan: Continue Plan of Care Treatment Duration: Jul 26, 2022 Frequency: 4 times per week Estimated Hrs Per Day: .25 hour per day Rehab Potential: Fair Pt/Family Agrees to Plan: Yes Safety Risks/Education Teaching Recipient: Patient, Significant Other Teaching Methods: Discussion Response to Teaching: Reinforcement Needed Education Topics Provided: Safe Swallowing Precautions, Results, Recommendations, Plan of Care Time Speech Therapy Time In: 12:18 Speech Therapy Time Out: 12:37 DATE: Jul 22, 2022 Total Billed Time: 19 Billed Treatment Time 1, RON VILA ELIZ[address]ETH ST Jul 22, 2022 13:02
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
[2022-07-22] MEDS ORDERED: VILAZODONE HCL 10 MG PO SCH (21:00)
[2022-07-22] MEDS ORDERED: DONEPEZIL 5 MG (ARICEPT) TAB PO SCH (21:00)
[2022-07-22] MEDS ORDERED: MONTELUKAST 10 MG (SINGULAIR) TAB PO SCH (21:00)
[2022-07-22] MEDS ORDERED: MICONAZOLE 2% POWDER (DESENEX AF) 90 GM TOP SCH (21:00)
[2022-07-22] MEDS: PREGABALIN 100 MG (LYRICA) CAPSULE PO SCH (21:26)
[2022-07-22] MEDS: clonazePAM 1 MG (KlonoPIN) TAB PO SCH (21:26)
[2022-07-22] MEDS: guaiFENesin SYRUP 100 MG/5 ML 10 ML (ROBITUSSIN SF) PO PRN (21:27)
[2022-07-22] MEDS: MICONAZOLE 2% POWDER (DESENEX AF) 90 GM TOP SCH (21:28)
[2022-07-23] MEDS: CEFEPIME 1,000 MG/NS 50 ML IVPB IV SCH ×6 (00:07→11:00)
[2022-07-23 03:22] VITALS: BP 154/77
[2022-07-23 03:56] LABS: BASOPHILS % (AUTO) 0 % (0-10); EOSINOPHILS % (AUTO) 0 % (0-10); HEMATOCRIT 30 % (40-54); HEMOGLOBIN 9.4 g/dL (13.3-17.7); LYMPHOCYTES % (AUTO) 17 % (12-44); MEAN CORPUSCULAR HEMOGLOBIN 26 pg (25-34); MEAN CORPUSCULAR HGB CONC 31 g/dL (32-36); MEAN CORPUSCULAR VOLUME 85 fL (80-99); MEAN PLATELET VOLUME 9.9 fL (9.0-12.2); MONOCYTES # (AUTO) 1.2 10^3/uL (0.0-1.0); MONOCYTES % (AUTO) 10 % (0-12); NEUTROPHILS # (AUTO) 8.2 10^3/uL (1.8-7.8); NEUTROPHILS % (AUTO) 71 % (42-75); PLATELET COUNT 204 10^3/uL (130-400); WHITE BLOOD COUNT 11.4 10^3/uL (4.3-11.0)
[2022-07-23 04:06] LABS: ALBUMIN 3.5 GM/DL (3.2-4.5); POTASSIUM 3.9 MMOL/L (3.6-5.0)
[2022-07-23 04:07] LABS: CALCIUM 8.3 MG/DL (8.5-10.1)
[2022-07-23 04:09] LABS: TOTAL PROTEIN 6.8 GM/DL (6.4-8.2)
[2022-07-23 04:10] LABS: BILIRUBIN,TOTAL 0.3 MG/DL (0.1-1.0)
[2022-07-23 04:12] LABS: CREATININE SERUM 0.79 MG/DL (0.60-1.30)
[2022-07-23] MEDS ORDERED: predniSONE 20 MG TAB PO SCH (07:00)
[2022-07-23 07:13] VITALS: BP 144/69
[2022-07-23] MEDS: RT-ALBUTEROL/IPRATROPIUM 3 ML (DUONEB) VIAL INH SCH ×2 (07:27→13:47)
[2022-07-23] MEDS ORDERED: MIRABEGRON 25 MG TAB (MYRBETRIQ) PO SCH (08:00)
[2022-07-23] MEDS: PREGABALIN 100 MG (LYRICA) CAPSULE PO SCH ×2 (08:11→12:49)
[2022-07-23] MEDS: clonazePAM 1 MG (KlonoPIN) TAB PO SCH ×2 (08:11→12:49)
[2022-07-23] MEDS: SENNOSIDES 8.6 MG (SENOKOT) TAB PO SCH (08:11)
[2022-07-23] MEDS: DOCUSATE SODIUM 100 MG (COLACE) CAP PO SCH (08:11)
[2022-07-23] MEDS: MICONAZOLE 2% POWDER (DESENEX AF) 90 GM TOP SCH (08:12)
[2022-07-23] MEDS: VANCOMYCIN 1250 MG/NS 250 ML PREMIX IV SCH (08:12)
[2022-07-23] MEDS: ENOXAPARIN 40 MG/0.4 ML (LOVENOX) SYR SC SCH (08:16)
[2022-07-23] MEDS ORDERED: RIVASTIGMINE 4.6 MG TD SCH (09:00)
[2022-07-23] MEDS ORDERED: VITAMIN D3 25 MCG (1,000 UNITS) TABLET PO SCH (09:00)
[2022-07-23] MEDS ORDERED: NON-FORMULARY MEDICATION 1 EA EA (Cholecalciferol (Vitamin D3) (Vitamin D3) 50 MCG) PO SCH (09:00)
[2022-07-23] MEDS ORDERED: LORATADINE (CLARITIN) 10 MG TAB PO SCH (09:00)
[2022-07-23] MEDS ORDERED: amLODIPine 10 MG (NORVASC) TAB PO SCH (09:00)
[2022-07-23] MEDS ORDERED: NON-FORMULARY MEDICATION 1 EA EA (Mirabegron (Myrbetriq) 25 MG) PO SCH (09:00)
[2022-07-23] MEDS ORDERED: doxAzosin 4 MG (CARDURA) TAB PO SCH (09:00)
--- NOTE | 2022-07-23 10:02 | Physical Therapy Daily Note ---
PT Daily Note-Current Subjective Patient is very agreeable to participate with PT. Spouse present. Pain Section J - Health Conditions 1. Rarely or not at all 2. Occasionally 3. Frequently 4. Almost constantly 8. Unable to answer Pain Effect on Sleep: 1 Pain Interference with Therapy: 1 Pain Interference w/Day-to-Day: 1 Mental Status Patient Orientation: Normal For Age Attachments: Oxygen, Fischer Catheter, IV Transfers SCALE: Activities may be completed with or without assistive devices. 1-Ihvzasnell-jgzwmsn completes the activity by him/herself with no assistance from a helper. 5-Set-up or Clean-up Assistance-helper sets up or cleans up; patient completes activity. [place] assists only prior to or following the activity. 4-Supervision or Touching Assistance-helper provides verbal cues and/or touch ing/steadying and/or contact guard assistance as patient completes activity. Assistance may be provided throughout the activity or intermittently. 3-Partial/Moderate Assistance-helper does LESS THAN HALF the effort. [place] lifts, holds or supports trunk or limbs, but provides less than half the effort. 2-Substantial/Maximal Assistance-helper does MORE THAN HALF the effort. [place] lifts or holds trunk or limbs and provides more than half the effort. 0-Uubthexsp-ojwkgv does ALL the effort. Patient does none of the effort to complete the activity. Or, the assistance of 2 or more helpers is required for the patient to complete the activity. If activity was not attempted, code reason: 7-Patient Refused. 9-Not Applicable-not attempted and the patient did not perform the activity before the current illness, exacerbation or injury. 10-Not Attempted due to Environmental Limitations-(lack of equipment, weather restraints, etc.). 88-Not Attempted due to Medical Conditions or Safety Concerns. Sit to Lying (QC): 4 Lying to Sitting/Side of Bed(Q: 4 Sit to Stand (QC): 4 Gait Training Distance: 350' Walk 10 feet (QC): 4 Walk 50 ft with 2 Turns(QC): 4 Walk 150 ft (QC): 4 Gait Assistive Device: FWW relies on bilateral UE's for upright position. Extended UE's with FWW use with shuffle gait sequence Assessment Patient tolerated improved distance with gait, however, does fatigue with activity. Patient returned to bed with bilateral LE elevated due to edema. PT Personalization Specialist Goals Personalization Specialist Goals PT Shelter Goals Time Frame: August 03, 2022 Roll Left & Right (QC): 4 Sit to Lying (QC): 4 Lying-Sitting on Side/Bed(QC): 4 Sit to Stand (QC): 4 Chair/Flj-ff-Bfufc Xfer(QC): 4 Toilet Transfer (QC): 4 Walk 10 feet (QC): 4 Walk 50ft with 2 Turns (QC): 4 PT Plan Treatment/Plan Treatment Plan: Continue Plan of Care Treatment Plan: Bed Mobility, Education, Functional Activity Eddy, Functional Strength, Gait, Safety, Therapeutic Exercise, Transfers Treatment Duration: August 03, 2022 Frequency: 6 times per week Estimated Hrs Per Day: .25 hour per day Patient and/or Family Agrees t: Yes Time Time In: 942 Time Out: 953 DATE: Jul 23, 2022 Total Billed Treatment Time: 11 Total Billed Treatment 1 visit GT 11 min DEEPIKA CRAMER PT Jul 23, 2022 10:02
--- NOTE | 2022-07-23 10:23 | Progress Note ---
Subjective Subjective/Events-last exam Pt states he is doing okay, breathing feels a lot better, still coughing up some white phlegm. States he did well with PT. Had a bloody nose this morning which has stopped. He wants to go home today. Focused Exam Lactate Level 07/23/22 01:41: Lactic Acid Level 2.65*H 07/23/22 03:45: Lactic Acid Level 2.50*H 07/23/22 05:33: Lactic Acid Level 2.59*H Time of Focused Exam: 05:40 Objective Exam Last Set of Vital Signs Vital Signs Date Time Temp Pulse Resp B/P (MAP) Pulse Ox O2 Delivery O2 Flow Rate FiO2 07/23/22 08:51 Nasal Cannula 3.00 07/23/22 07:27 96 07/23/22 07:13 36.6 76 18 144/69 (94) 07/21/22 05:03 32 Capillary Refill : Less Than 3 Seconds I&O Intake and Output 07/23/22 00:00 Intake Total 3275 ml Output Total 2000 ml Balance 1275 ml Intake Oral 975 ml IV Total 2300 ml Output Urine Total 2000 ml General: Alert, No Acute Distress Lungs: Other (ronchi and end expiratory wheeze) Heart: Regular Rate Neuro: Normal Speech Results/Procedures Lab Laboratory Tests 07/22/22 19:30: Lactic Acid Level 3.89*H 07/22/22 21:30: Lactic Acid Level 4.52*H 07/22/22 23:25: Lactic Acid Level 3.90*H 07/23/22 01:41: Lactic Acid Level 2.65*H 07/23/22 03:45: White Blood Count 11.4H, Red Blood Count 3.56L, Hemoglobin 9.4L, Hematocrit 30L, Mean Corpuscular Volume 85, Mean Corpuscular Hemoglobin 26, Mean Corpuscular Hemoglobin Concent 31L, Red Cell Distribution Width 15.3H, Platelet Count 204, Mean Platelet Volume 9.9, Immature Granulocyte % (Auto) 1, Neutrophils (%) (Auto) 71, Lymphocytes (%) (Auto) 17, Monocytes (%) (Auto) 10, Eosinophils (%) (Auto) 0, Basophils (%) (Auto) 0, Neutrophils # (Auto) 8.2H, Lymphocytes # (Auto) 2.0, Monocytes # (Auto) 1.2H, Eosinophils # (Auto) 0.0, Basophils # (Auto) 0.0, Immature Granulocyte # (Auto) 0.1, Sodium Level 136, Potassium Level 3.9, Chloride Level 105, Carbon Dioxide Level 19L, Anion Gap 12, Blood Urea Nitrogen 18, Creatinine 0.79, Estimat Glomerular Filtration Rate 87, BUN/Creatinine Ratio 23, Glucose Level 148H, Lactic Acid Level 2.50*H, Calcium Level 8.3L, Corrected Calcium 8.7, Total Bilirubin 0.3, Aspartate Amino Transf (AST/SGOT) 41H, Alanine Aminotransferase (ALT/SGPT) 22, Alkaline Phosphatase 43, Total Protein 6.8, Albumin 3.5 07/23/22 05:33: Lactic Acid Level 2.59*H Microbiology 07/21/22 Urine Culture - Final, Complete NO GROWTH 07/21/22 Blood Culture - Preliminary, Resulted Streptococcus viridans See Comments Assessment/Plan Assessment/Plan (1) Pneumonia Status: Chronic Assessment & Plan: Possible recurrent pneumonia per xray. No leukocytosis or fever. On cefepime and vancomycin, change to oral cefdinir for d/c Qualifiers: (2) COPD exacerbation Status: Acute Assessment & Plan: Prednisone. On baseline supplemental oxygen. 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 (4) Hypertension Status: Chronic Assessment & Plan: Resume home medications Qualifiers: Qualified Codes: I10 - Essential (primary) hypertension (5) BPH (benign prostatic hyperplasia) Status: Chronic Assessment & Plan: Resume home meds (6) Dementia Status: Chronic Assessment & Plan: Resume home meds (7) Type 2 diabetes mellitus Status: Chronic Assessment & Plan: Hold metformin with current lactic acidosis (8) COPD (chronic obstructive pulmonary disease) Status: Chronic (9) Unable to care for self Status: Acute Assessment & Plan: Declining any out of home placement. (10) Decubitus skin ulcer Status: Acute Assessment & Plan: Nonblanchable erythema noted per wound nurse, position changes and barrier cream. Qualifiers: (11) DVT prophylaxis Status: Acute Assessment & Plan: Enoxaparin ROBBY HANLEY MD Jul 23, 2022 10:22
--- NOTE | 2022-07-23 10:26 | Occupational Ther Daily Note ---
OT Current Status-Daily Note Subjective Patient agrees to therapy exercises following PT ambulation in halls Mental Status/Objective Patient Orientation: Person, Place, Situation Attachments: Fischer Catheter, IV, Oxygen ADL-Treatment Therapy Code Descriptions/Definitions Functional [place] Measure: 0=Not Assessed/NA 4=Minimal Assistance 1=Total Assistance 5=Supervision or Setup 2=Maximal Assistance 6=Modified [place] 3=Moderate Assistance 7=Complete IndependenceSCALE: Activities may be completed with or without assistive devices. 6-Vbvnvdrxgc-ejtskwd completes the activity by him/herself with no assistance from a helper. 5-Set-up or Clean-up Assistance-helper sets up or cleans up; patient completes activity. [place] assists only prior to or following the activity. 4-Supervision or Touching Assistance-helper provides verbal cues and/or touching/steadying and/or contact guard assistance as patient completes activity. Assistance may be provided throughout the activity or intermittently. 3-Partial/Moderate Assistance-helper does LESS THAN HALF the effort. [place] lifts, holds or supports trunk or limbs, but provides less than half the effort. 2-Substantial/Maximal Assistance-helper does MORE THAN HALF the effort. [place] lifts or holds trunk or limbs and provides more than half the effort. 3-Pbwbuigjt-wvpjum does ALL the effort. Patient does none of the effort to complete the activity. Or, the assistance of 2 or more helpers is required for the patient to complete the activity. If activity was not attempted, code reason: 7-Patient Refused. 9-Not Applicable-not attempted and the patient did not perform the activity before the current illness, exacerbation or injury. 10-Not Attempted due to Environmental Limitations-(lack of equipment, weather restraints, etc.). 88-Not Attempted due to Medical Conditions or Safety Concerns. Eating (QC): 5 Oral Hygiene (QC): 5 Other Treatment Red therapy band 10x3 BUE shoulder abduction, shoulder flex/ext, elbow frlex/ext, diagram left with pat and spouse Education OT Patient Education: Correct positioning, Exercise program, Instructions to ca regiver, Progress toward Goal/Update tx plan, Purpose of tx/functional activities, Safety issues Teaching Recipient: Patient, Family Teaching Methods: Demonstration, Discussion Response to Teaching: Reinforcement Needed OT Aircraft Life Support Fitter Goals Aircraft Life Support Fitter Goals Eating (QC): 6 Oral Hygiene (QC): 5 Toileting Hygiene (QC): 4 Shower/Bathe Self (QC): 3 Upper Body Dressing (QC): 4 Lower Body Dressing (QC): 4 On/Off Footwear (QC): 4 1=Demonstrate adherence to instructed precautions during ADL tasks. 2=Patient will verbalize/demonstrate understanding of assistive devices/modifications for ADL. 3=Patient will improve strength/tolerance for activity to enable patient to perform ADL's. OT Education/Plan Problem List/Assessment Assessment: Decreased Activ Tolerance, Decreased Safety Aware, Decreased UE Strength, Impaired Self-Care Skills Discharge Recommendations Plan/Recommendations: Continue POC Treatment Plan/Plan of Care Treatment,Training & Education: Yes Patient would benefit from OT for education, treatment and training to promote independence in ADL's, mobility, safety and/or upper extremity function for ADL's. Plan of Care: ADL Retraining, Caregiver Training, Concurrent Therapy, Functional Mobility, Group Exercise/Act as Ind, UE Funct Exercise/Act Treatment Duration: Jul 27, 2022 Frequency: 3 times per week (3-5 times per week) Rehab Potential: Guarded Time Start Time: 09:56 Stop Time: 10:17 DATE: Jul 23, 2022 Total Time Billed (hr/min): 21 Billed Treatment Time EX 21 min VIJAYA SIMMONS OT Jul 23, 2022 10:26
[2022-07-23] MEDS: guaiFENesin SYRUP 100 MG/5 ML 10 ML (ROBITUSSIN SF) PO PRN (11:06)
[2022-07-23 11:27] VITALS: BP 136/70
--- NOTE | 2022-07-23 11:48 | Speech Therapy Progress Note ---
Therapy Progress Note Speech pathology attempted skilled dysphagia follow up at 1100 on this date. At this time, the patient was receiving care from the RN and the PCT. ST will re- attempt as able. Thank you. ALBA CLARKE Jul 23, 2022 11:48
[2022-07-23] MEDS ORDERED: MICO90PO TOP (14:03)
[2022-07-23] MEDS ORDERED: PRD20T PO (14:03)
[2022-07-23] MEDS ORDERED: CEFD300C3 PO (14:03)
--- NOTE | 2022-07-23 14:05 | D/C HH Face to Face Order ---
D/C Face to Face Orders Instructions for Patient Patient Instructions/FollowUp: Follow up with primary doctor within a week. Follow up at [facility] [place] [facility] as directed. Hold metformin due to persistent lactic acidosis. Stop taking benadryl as it can increase risk for fall. Physician to follow Patient: [facility] Discharge Diet for Home: ADA Diet Patient Data-Allergies,Ht & Wt Patient Allergies: Coded Allergies: Serotonin 5HT-3 Antagonists (Verified Allergy, Unknown, 07/21/22) Tricyclic Antidepressants and Tricy (Verified Allergy, Unknown, 07/21/22) codeine (Verified Allergy, Unknown, pt has rec Morphine in the past, 07/21/22) hydrocodone (Verified Allergy, Unknown, 07/21/22) aspirin (Verified Adverse Reaction, Mild, STOMACH IRRITATION, 07/21/22) Height (Feet): 5 Height (Inches): 8.00 Weight (Pounds): 250 Weight (Ounces): 6.0 Home Health Need/Face to Face Date of Face to Face: Jul 23, 2022 Clinical Findings: Generalized weakness and fatigue I have seen Pt [id number]: Yes Discharged To: Home Diagnosis/Conditions: COPD exacerbation Pneumonia Debility Patient is Homebound due to: Josse fall risk due to instabilty Homebound Status Due to the above stated illness, injury or surgical procedure (medical condition or diagnosis) and associated clinical findings, the patient is homebound because of his/her inability to leave home except with aid of a suppo rtive device and/or person AND leaving the home requires a considerable and taxing effort or is medically contraindicated. Pt req the following assistanc: Aid of another person, Walker Home Health Nursing Orders Home Health Services Order: Nursing Services, Physical Therapy-Evaluate & Treat, Wound Care-Eval/Treat Home Health Infusion Therapy Line Start Date: Jul 21, 2022 Certify Stmt I certify that this patient is under my care and that I, a nurse practitioner or a physician; a video production assistant working with me, had a face to face encounter that - meets the physician face to face encounter requirements with this patient as dated. ROBBY HANLEY MD Jul 23, 2022 14:04
--- NOTE | 2022-07-23 16:41 | Discharge Summary ---
Discharge Summary Hospital Course Problems/Diagnosis: (1) Pneumonia Status: Chronic Assessment & Plan: Possible recurrent pneumonia per xray. No leukocytosis or fever. On cefepime and vancomycin, change to oral cefdinir for d/c Qualifiers: (2) COPD exacerbation Status: Acute Assessment & Plan: Prednisone. On baseline supplemental oxygen. 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 (4) Hypertension Status: Chronic Assessment & Plan: Resume home medications Qualifiers: Qualified Codes: I10 - Essential (primary) hypertension (5) BPH (benign prostatic hyperplasia) Status: Chronic Assessment & Plan: Resume home meds (6) Dementia Status: Chronic Assessment & Plan: Resume home meds (7) Type 2 diabetes mellitus Status: Chronic Assessment & Plan: Hold metformin with current lactic acidosis (8) COPD (chronic obstructive pulmonary disease) Status: Chronic (9) Unable to care for self Status: Acute Assessment & Plan: Declining any out of home placement. (10) Decubitus skin ulcer Status: Acute Assessment & Plan: Nonblanchable erythema noted per wound nurse, position changes and barrier cream. Qualifiers: (11) DVT prophylaxis Status: Acute Assessment & Plan: Enoxaparin Hospital Course Date of Admission: Jul 21, 2022 at 06:30 Admission Diagnosis : Family [facility] Date of Discharge: 07/23/22 Discharge Diagnosis: [ ] Hospital Course: [ ] Labs and Pending Lab Test: Laboratory Tests 07/22/22 19:30: Lactic Acid Level 3.89*H 07/22/22 21:30: Lactic Acid Level 4.52*H 07/22/22 23:25: Lactic Acid Level 3.90*H 07/23/22 01:41: Lactic Acid Level 2.65*H 07/23/22 03:45: White Blood Count 11.4H, Red Blood Count 3.56L, Hemoglobin 9.4L, Hematocrit 30L, Mean Corpuscular Volume 85, Mean Corpuscular Hemoglobin 26, Mean Corpuscular Hemoglobin Concent 31L, Red Cell Distribution Width 15.3H, Platelet Count 204, Mean Platelet Volume 9.9, Immature Granulocyte % (Auto) 1, Neutrophils (%) (Auto) 71, Lymphocytes (%) (Auto) 17, Monocytes (%) (Auto) 10, Eosinophils (%) (Auto) 0, Basophils (%) (Auto) 0, Neutrophils # (Auto) 8.2H, Lymphocytes # (Auto) 2.0, Monocytes # (Auto) 1.2H, Eosinophils # (Auto) 0.0, Basophils # (Auto) 0.0, Immature Granulocyte # (Auto) 0.1, Sodium Level 136, Potassium Level 3.9, Chloride Level 105, Carbon Dioxide Level 19L, Anion Gap 12, Blood Urea Nitrogen 18, Creatinine 0.79, Estimat Glomerular Filtration Rate 87, BUN/Creatinine Ratio 23, Glucose Level 148H, Lactic Acid Level 2.50*H, Calcium Level 8.3L, Corrected Calcium 8.7, Total Bilirubin 0.3, Aspartate Amino Transf (AST/SGOT) 41H, Alanine Aminotransferase (ALT/SGPT) 22, Alkaline Phosphatase 43, Total Protein 6.8, Albumin 3.5 07/23/22 05:33: Lactic Acid Level 2.59*H Microbiology 07/21/22 Urine Culture - Final, Complete NO GROWTH 07/21/22 Blood Culture - Preliminary, Resulted Streptococcus viridans See Comments Home Meds Active Cefdinir 300 Mg Capsule 300 Mg PO BID 3 Days Lotrimin AF (Miconazole Nitrate) 2 % Powder 1 Gm TOP BID Prednisone 20 Mg Tab 40 Mg PO DAILY@0700 2 Days Reported Diabetic Tussin (Guaifenesin) 100 Mg/5 Ml Liquid 10 Ml PO TID PRN [Restful Legs] 1 Ea PO HS Tylenol Extra Strength (Acetaminophen) 500 Mg Tablet 1,000 Mg PO HS PRN TAKES 2 (500MG) TABS Vitamin D3 (Cholecalciferol (Vitamin D3)) 50 Mcg (2000 Unit) Capsule 50 Mcg PO DAILY Atorvastatin Calcium 20 Mg Tablet 20 Mg PO DAILY Vilazodone HCl 10 Mg Tablet 10 Mg PO HS Montelukast Sodium 10 Mg Tablet 10 Mg PO HS Pregabalin 100 Mg Capsule 100 Mg PO TID Donepezil HCl 5 Mg Tablet 5 Mg PO HS Hydrochlorothiazide 25 Mg Tablet 25 Mg PO DAILY Albuterol Sulfate 2.5 Mg/3 Ml (0.083 %) Vial.neb 2.5 Mg NEB Q6H PRN Loratadine 10 Mg Tablet 10 Mg PO DAILY Myrbetriq (Mirabegron) 25 Mg Tab.er.24h 25 Mg PO DAILY Rivastigmine 1 Each Patch.td24 4.6 Mg TD DAILY Amlodipine Besylate 10 Mg Tablet 10 Mg PO DAILY Clonazepam 1 Mg Tablet 1 Mg PO TID Doxazosin Mesylate 4 Mg Tablet 4 Mg PO DAILY Discharge Physical Examination Allergies: Coded Allergies: Serotonin 5HT-3 Antagonists (Verified Allergy, Unknown, 07/21/22) Tricyclic Antidepressants and Tricy (Verified Allergy, Unknown, 07/21/22) codeine (Verified Allergy, Unknown, pt has rec Morphine in the past, 07/21/22) hydrocodone (Verified Allergy, Unknown, 07/21/22) aspirin (Verified Adverse Reaction, Mild, STOMACH IRRITATION, 07/21/22) ROBBY HANLEY MD Jul 23, 2022 16:41
== END 2022-07-23 15:35 | disposition home health service (06) | DRG 189 ==
LOC: EDUNIT# 04:12 → ER 04:13 → 4TH 06:30
PROVIDERS: ADMIT Internal Medicine; ATTEND Family Medicine
PROC: 5A0935A Assistance with Respiratory Ventilation, Less than 24 Consecutive Hours, High Flow/Velocity Cannula (ICD-10-PCS; principal; 2022-07-22)
DX: J96.21 Acute and chronic respiratory failure with hypoxia (principal); J18.9 Pneumonia, unspecified organism; Z68.41 Body mass index [BMI] 40.0-44.9, adult; J43.9 Emphysema, unspecified; L89.322 Pressure ulcer of left buttock, stage 2; I10 Essential (primary) hypertension; F03.90 Unspecified dementia, unspecified severity, without behavioral disturbance, psychotic disturbance, mood disturbance, and anxiety; R32 Unspecified urinary incontinence; R15.9 Full incontinence of feces; Z20.822 Contact with and (suspected) exposure to COVID-19; N40.1 Benign prostatic hyperplasia with lower urinary tract symptoms; I25.10 Atherosclerotic heart disease of native coronary artery without angina pectoris; E78.00 Pure hypercholesterolemia, unspecified; K21.9 Gastro-esophageal reflux disease without esophagitis; B37.2 Candidiasis of skin and nail; R53.81 Other malaise; R53.1 Weakness; E11.9 Type 2 diabetes mellitus without complications; E66.9 Obesity, unspecified; M40.209 Unspecified kyphosis, site unspecified; M81.0 Age-related osteoporosis without current pathological fracture; M19.90 Unspecified osteoarthritis, unspecified site; F41.9 Anxiety disorder, unspecified; F32.A Depression, unspecified; M25.562 Pain in left knee; M25.561 Pain in right knee; H01.009 Unspecified blepharitis unspecified eye, unspecified eyelid; H04.9 Disorder of lacrimal system, unspecified; H54.61 Unqualified visual loss, right eye, normal vision left eye; Z91.81 History of falling; Z87.891 Personal history of nicotine dependence; Z85.46 Personal history of malignant neoplasm of prostate; Z90.79 Acquired absence of other genital organ(s); Z85.828 Personal history of other malignant neoplasm of skin; Z99.81 Dependence on supplemental oxygen; Z79.899 Other long term (current) drug therapy; Z88.6 Allergy status to analgesic agent; Z88.5 Allergy status to narcotic agent; Z88.8 Allergy status to other drugs, medicaments and biological substances
CPT/HCPCS: 36415; 51702; 71045; 80053; 81000; 82550; 82553; 83605; 83735; 83880; 84484; 85025; 85027; 85610; 85730; 87040; 87088; 87636; 93005; 93041; 94640; 94644; 94664; 94760

== ENCOUNTER 2022-08-27 16:46 | Observation (INO) | payer MEDICARE, MEDICAID ==
[~2022-08-27] VITALS: Ht 182 cm; Wt 117.4 kg
[2022-08-27] VITALS (11 sets, daily range): BP systolic 118–153; BP diastolic 58–78
[~2022-08-27 16:46] MED LIST changes: +DIPH25TA31 PO; +MICO90PO TOP; +NYST60PO TP; +RESTFUL LEGS PO; +[UNRECOGNIZED DRUG - CODE] PO
--- NOTE | 2022-08-27 16:57 | ED Respiratory ---
General Chief Complaint: Respiratory Problems Stated Complaint: LOW 02 Nursing Triage Note: PT TO [facility] 7 BY EMS WITH CC OF [facility]. [facility] ADVISED PT TO BE SEEN IN ED FOR LOW O2 STAT. EMS REPORTS [facility] GAVE PT BREATHING TX RESIDENTIAL PROGRAM COORDINATOR. PT ON HOME O2 OF 3L NC. PT A&OX4. Source: patient, EMS Exam Limitations: no limitations History of Present Illness Date Seen by Provider: August 27, 2022 Time Seen by Provider: 16:46 Initial Comments 86-year-old male presents via EMS with cough and shortness of breath. He went to the [facility] clinic today was found to be hypoxic on his chronic 3 L of oxygen via nasal cannula. Reportedly 86% there. Given DuoNeb and it did not improve so he was transported to the emergency department. No fevers or chills. He was discharged from our facility in June for pneumonia, discharged ultimately on cefdinir after Zosyn and Vanco administered IV in the hospital. He tells me he has been short of breath since he left the hospital and has worsened over the last couple of days. No sick contacts. He has had some intermittent chest pains that are very brief and fleeting. No current pain. All other systems reviewed and negative except documented per HPI. Voice recognition software was used to help create this chart Allergies and Home Medications Allergies Coded Allergies: Serotonin 5HT-3 Antagonists (Verified Allergy, Unknown, 07/21/22) Tricyclic Antidepressants and Tricy (Verified Allergy, Unknown, 07/21/22) codeine (Verified Allergy, Unknown, pt has rec Morphine in the past, 07/21/22) hydrocodone (Verified Allergy, Unknown, 07/21/22) aspirin (Verified Adverse Reaction, Mild, STOMACH IRRITATION, 07/21/22) Patient Home Medication List Home Medication List Reviewed: Yes Acetaminophen (Tylenol Extra Strength) 500 Mg Tablet, 1,000 MG PO HS PRN for PAIN, (Reported) Entered as Reported by: EDISON PRESTON on 06/18/22 1430 Albuterol Sulfate (Albuterol Sulfate) 2.5 Mg/3 Ml (0.083 %) Vial.neb, 2.5 MG NEB Q6H PRN for SHORTNESS OF BREATH, (Reported) Entered as Reported by: HILARY APPIAH on 04/23/19 1223 Amlodipine Besylate (Amlodipine Besylate) 10 Mg Tablet, 10 MG PO DAILY, (Reported) Entered as Reported by: HILARY APPIAH on 12/27/15 0851 Atorvastatin Calcium (Atorvastatin Calcium) 20 Mg Tablet, 20 MG PO DAILY, (Reported) Entered as Reported by: EDISON PRESTON on 06/18/22 1430 Cefdinir (Cefdinir) 300 Mg Capsule, 300 MG PO BID Prescribed by: ROBBY HANLEY on 07/23/22 1403 Cholecalciferol (Vitamin D3) (Vitamin D3) 50 Mcg (2000 Unit) Capsule, 50 MCG PO DAILY, (Reported) Entered as Reported by: EDISON PRESTON on 06/18/22 1430 Clonazepam (Clonazepam) 1 Mg Tablet, 1 MG PO TID, (Reported) Entered as Reported by: HILARY APPIAH on 12/27/15 0851 Donepezil HCl (Donepezil HCl) 5 Mg Tablet, 5 MG PO HS, (Reported) Entered as Reported by: EDISON PRESTON on 04/06/21 1126 Doxazosin Mesylate (Doxazosin Mesylate) 4 Mg Tablet, 4 MG PO DAILY, (Reported) Entered as Reported by: CARIN PRINGLE on 05/27/15 1136 Guaifenesin (Diabetic Tussin) 100 Mg/5 Ml Liquid, 10 ML PO TID PRN for COUGH, (Reported) Entered as Reported by: GRISELDA TSAGN on 07/22/22 1017 Hydrochlorothiazide (Hydrochlorothiazide) 25 Mg Tablet, 25 MG PO DAILY, (Reported) Entered as Reported by: EDISON PRESTON on 04/06/21 1126 Loratadine (Loratadine) 10 Mg Tablet, 10 MG PO DAILY, (Reported) Entered as Reported by: HILARY APPIAH on 04/23/19 1009 Miconazole Nitrate (Lotrimin AF) 2 % Powder, 1 GM TOP BID Prescribed by: ROBBY HANLEY on 07/23/22 1403 Mirabegron (Myrbetriq) 25 Mg Tab.er.24h, 25 MG PO DAILY, (Reported) Entered as Reported by: KRYSTIN NEWMAN on 01/26/17 1802 Montelukast Sodium (Montelukast Sodium) 10 Mg Tablet, 10 MG PO HS, (Reported) Entered as Reported by: EDISON PRESTON on 11/20/21 1253 Prednisone (Prednisone) 20 Mg Tab, 40 MG PO DAILY@0700 Prescribed by: ROBBY HANLEY on 07/23/22 1403 Pregabalin (Pregabalin) 100 Mg Capsule, 100 MG PO TID, (Reported) Entered as Reported by: EDISON PRESTON on 04/06/21 1126 Rivastigmine (Rivastigmine) 1 Each Patch.td24, 4.6 MG TD DAILY, (Reported) Entered as Reported by: KRYSTIN NEWMAN on 01/26/17 1802 Vilazodone HCl (Vilazodone HCl) 10 Mg Tablet, 10 MG PO HS, (Reported) Entered as Reported by: EDISON PRESTON on 11/20/21 1253 [Restful Legs] , 1 EA PO HS, (Reported) Entered as Reported by: GRISELDA TSANG on 07/22/22 1013 Review of Systems Review of Systems Constitutional: see HPI Past Xafeqby-Llgnyt-Ddzide Hx Patient Social History Tobacco Use?: No Use of E-Cig and/or Vaping dev: No Substance use?: No Alcohol Use?: No Immunizations Up To Date Tetanus Booster (TDap): Unknown PED Vaccines UTD: No First/Initial COVID19 Vaccinat: NOV 2020 Second COVID19 Vaccination Jack: DEC 2020 Third COVID19 Vaccination Date: 2021 Seasonal Allergies Seasonal Allergies: Yes Past Medical History Surgery/Hospitalization HX: Surgery on right eye (cancer); hernia repair x4, tonsils, 90 hospitalization for hepatitis Surgeries: Yes (RIGHT EYELID BASAL CELL CANCER; HERNIA REPAIR X 4, PER PT ) Abdominal, Adenoidectomy, Cardiac, Eye Surgery, Orthopedic, Prostatectomy, Tonsillectomy Respiratory: Yes (O2 DEPENDENT AT 3L/NC CONTINUOUSLY;MULTIPLE EPISODES OF PNEUMONIA) Asthma, Pneumonia, Chronic Bronchitis, COPD, Emphysema Currently Using CPAP: No Currently Using BIPAP: No Cardiac: Yes Chronic Edema/Swelling, Coronary Artery Disease, High Cholesterol, Hypertension Neurological: Yes Dementia Reproductive Disorders: No Sexually Transmitted Disease: No HIV/AIDS: No Genitourinary: Yes (PROSTATE CANCER > 10 YEARS AGO) Prostate Problems, Kidney Stones Gastrointestinal: Yes (S/P HERNIA REPAIR X 4, PER PT) Abdominal Hernia, Gastroesophageal Reflux, Chronic Constipation, Polyps, Hiatal Hernia Musculoskeletal: Yes (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) Degenerate Disk Disease, Osteoporosis, Arthritis, Chronic Back Pain Endocrine: Yes Diabetes, Non-Insulin dep HEENT: Yes (R EYELID BASAL CELL CANCER;SINUSITIS; NOSEBLEEDS) Cataract Loss of Vision: Right Hearing Impairment: Denies Cancer: Yes (PROSTATE CANCER, BASAL CELL CANCER OF RIGHT EYE) Prostate, Skin Did You Recieve Any Treatments: Yes What Type of Treatment Did You: Surgical Intervention Psychosocial: Yes Anxiety, Depression Integumentary: Yes (SKIN CANCER; PRESSURE ULCERS OF BUTTOCKS/SACRUM, Chronic pruritis) Blood Disorders: No Adverse Reaction/Blood Tranf: No Family Medical History FH: breast cancer G8 SISTER Myocardial infarction 19 FATHER Heart Disease CHRONIC GENERALIZED WEAKNESS, FREQUENT FALLS VERY POOR/VERY MINIMAL MOBILITY--HAS POWER CHAIR AND WALKER, WHICH HE HAS REFUSED TO USE AT HOME CHRONIC BILATERAL KNEE PAIN RIGHT EYELID BASAL 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 6.0oz. [id number]; 40.90 BMI Method:Estimated General Appearance: WD/WN, no apparent distress HEENT: normal ENT inspection, pharynx normal Neck: non-tender, full range of motion, supple, normal inspection Respiratory: chest non-tender, other (Coarse breath sounds bilaterally with rhonchi throughout. No wheezing.) Cardiovascular: regular rate, rhythm, no murmur Gastrointestinal: normal bowel sounds, non tender, soft, no organomegaly Neurologic/Psychiatric: alert, normal mood/affect, oriented x 3 Skin: normal color, warm/dry Focused Exam Lactate Level 08/27/22 17:00: Lactic Acid Level 2.74*H Lactic Acid Level Laboratory Tests Test 08/27/22 17:00 Lactic Acid Level 2.74 MMOL/L (0.50-2.00) *H Progress/Results/Core Measures Suspected Sepsis SIRS Temperature: Pulse: 84 Respiratory Rate: 20 Laboratory Tests 08/27/22 17:00: White Blood Count 10.7 Blood Pressure 153 /77 Mean: 102 08/27/22 17:00: Lactic Acid Level 2.74*H Laboratory Tests 08/27/22 17:00: Creatinine 1.03, Platelet Count 223, Total Bilirubin 0.2 Results/Orders Lab Results Laboratory Tests Test 08/27/22 17:00 08/27/22 17:20 Range/Units White Blood Count 10.7 4.3-11.0 10^3/uL Red Blood Count 4.22 L 4.30-5.52 10^6/uL Hemoglobin 11.0 L 13.3-17.7 g/dL Hematocrit 36 L 40-54 % Mean Corpuscular Volume 85 80-99 fL Mean Corpuscular Hemoglobin 26 25-34 pg Mean Corpuscular Hemoglobin Concent 31 L 32-36 g/dL Red Cell Distribution Width 14.8 H 10.0-14.5 % Platelet Count 223 130-400 10^3/uL Mean Platelet Volume 10.0 9.0-12.2 fL Immature Granulocyte % (Auto) 0 % Neutrophils (%) (Auto) 63 42-75 % Lymphocytes (%) (Auto) 21 12-44 % Monocytes (%) (Auto) 12 0-12 % Eosinophils (%) (Auto) 3 0-10 % Basophils (%) (Auto) 0 0-10 % Neutrophils # (Auto) 6.8 1.8-7.8 X 10^3 Lymphocytes # (Auto) 2.2 1.0-4.0 X 10^3 Monocytes # (Auto) 1.3 H 0.0-1.0 X 10^3 Eosinophils # (Auto) 0.3 0.0-0.3 10^3/uL Basophils # (Auto) 0.0 0.0-0.1 10^3/uL Immature Granulocyte # (Auto) 0.0 0.0-0.1 10^3/uL Sodium Level 137 135-145 MMOL/L Potassium Level 3.5 L 3.6-5.0 MMOL/L Chloride Level 98 98-107 MMOL/L Carbon Dioxide Level 22 21-32 MMOL/L Anion Gap 17 H 5-14 MMOL/L Blood Urea Nitrogen 18 7-18 MG/DL Creatinine 1.03 0.60-1.30 MG/DL Estimat Glomerular Filtration Rate 71 BUN/Creatinine Ratio 17 Glucose Level 148 H 70-105 MG/DL Lactic Acid Level 2.74 *H 0.50-2.00 MMOL/L Calcium Level 9.9 8.5-10.1 MG/DL Corrected Calcium 9.7 8.5-10.1 MG/DL Total Bilirubin 0.2 0.1-1.0 MG/DL Aspartate Amino Transf (AST/SGOT) 71 H 5-34 U/L Alanine Aminotransferase (ALT/SGPT) 36 0-55 U/L Alkaline Phosphatase 73 40-136 U/L Troponin I < 0.028 <0.028 NG/ML Total Protein 8.4 H 6.4-8.2 GM/DL Albumin 4.2 3.2-4.5 GM/DL SARS-CoV-2 RNA (RT-PCR) Not Detected Not Detecte My Orders Orders - GRIFFIN CASTRO DO Cbc With Automated Diff (08/27/22 16:52) Comprehensive Metabolic Panel (08/27/22 16:52) Blood Culture (08/27/22 16:52) Sputum Culture (08/27/22 16:52) Chest 1 View, Ap/Pa Only (08/27/22 16:52) Ed Iv/Invasive Line Start (08/27/22 16:52) Troponin I Jessa (08/27/22 16:52) Vital Signs Adult Sepsis Patie Q15M (08/27/22 16:52) O2 (08/27/22 16:52) Lactic Acid Analyzer (08/27/22 16:52) Ekg Tracing (08/27/22 16:52) Covid 19 Inhouse Test (08/27/22 17:07) Piperacillin Sodium/Tazobactam (Zosyn Vi (08/27/22 18:00) Ns Iv 500 Ml (Sodium Chloride 0.9%) (08/27/22 17:55) Ed Admission (Communication) (08/27/22 18:04) Code/Resuscitation (08/27/22 18:05) Vital Signs/I&O 08/27/22 08/27/22 08/27/22 08/27/22 16:50 16:50 16:50 18:38 Pulse 84 80 Resp 20 20 B/P (MAP) 153/77 (102) 148/73 Pulse Ox 93 94 94 O2 Delivery Nasal Cannula Nasal Cannula Nasal Cannula Nasal Cannula O2 Flow Rate 3.00 3.00 3.00 3.00 3.00 Capillary Refill : Less Than 3 Seconds Blood Pressure Mean: 102 ECG Comment Sinus rhythm at 81 bpm. Normal intervals. Left axis deviation. No ST or T wave abnormalities. No ectopy. No STEMI. Critical Care Note Critical Care Total Time (minutes) 45 Departure Communication (Admissions) Attempted initially to place patient back on his home 3 L of oxygen via nasal cannula and his oxygen gradually decreased to about 86 to 87%. Increase back to 5 L and now 92 to 94% and comfortable. He was significantly symptomatic when his oxygen was lower with increased shortness of breath and work of breathing. Chest x-ray shows likely bilateral lung pleural infiltrates versus atelectasis. Given his clinical picture and new hypoxia I think this is likely pneumonia. Would not treat with Zosyn as he has been in the hospital within the last [address] Wan who accepts the patient in admission. Impression Primary Impression: HCAP (healthcare-associated pneumonia) Additional Impression: Hypoxia Disposition: ADMITTED INPATIENT Condition: Stable Admissions Decision to Admit Reason: Admit from ER (General) Departure-Patient Inst. Referrals: [facility] (PCP/Family) Primary Care Physician GRIFFIN CASTRO DO August 27, 2022 16:57
[2022-08-27 17:17] LABS: BASOPHILS % (AUTO) 0 % (0-10); EOSINOPHILS # (AUTO) 0.3 10^3/uL (0.0-0.3); EOSINOPHILS % (AUTO) 3 % (0-10); HEMATOCRIT 36 % (40-54); LYMPHOCYTES # (AUTO) 2.2 X 10^3 (1.0-4.0); LYMPHOCYTES % (AUTO) 21 % (12-44); MEAN CORPUSCULAR HEMOGLOBIN 26 pg (25-34); MEAN CORPUSCULAR HGB CONC 31 g/dL (32-36); MEAN CORPUSCULAR VOLUME 85 fL (80-99); MONOCYTES # (AUTO) 1.3 X 10^3 (0.0-1.0); MONOCYTES % (AUTO) 12 % (0-12); NEUTROPHILS # (AUTO) 6.8 X 10^3 (1.8-7.8); NEUTROPHILS % (AUTO) 63 % (42-75); PLATELET COUNT 223 10^3/uL (130-400); WHITE BLOOD COUNT 10.7 10^3/uL (4.3-11.0)
--- NOTE | 2022-08-27 17:17 | Diagnostic Imaging Report ---
INDICATION: Dyspnea. Time of Exam: 4:58 PM Correlation is made with prior chest from 07/21/2022. Heart size is stable. There appears to be some linear atelectasis in left lung base. There appears to be some infiltrate or atelectasis right base as well. The mid and upper lung moreno are clear. No significant effusion is seen. There is no pneumothorax. IMPRESSION: Bibasilar opacities concerning for atelectasis or infiltrate. Dictated by: Dictated on workstation # [id number]
[2022-08-27 17:40] LABS: ALBUMIN 4.2 GM/DL (3.2-4.5)
[2022-08-27 17:41] LABS: CHLORIDE 98 MMOL/L (98-107); POTASSIUM 3.5 MMOL/L (3.6-5.0); SODIUM 137 MMOL/L (135-145)
[2022-08-27 17:42] LABS: CALCIUM 9.9 MG/DL (8.5-10.1)
[2022-08-27 17:43] LABS: GLUCOSE 148 MG/DL (70-105); TOTAL PROTEIN 8.4 GM/DL (6.4-8.2)
[2022-08-27 17:44] LABS: CARBON DIOXIDE 22 MMOL/L (21-32)
[2022-08-27 17:45] LABS: BILIRUBIN,TOTAL 0.2 MG/DL (0.1-1.0)
[2022-08-27 17:46] LABS: ALKALINE PHOSPHATASE 73 U/L (40-136); CREATININE SERUM 1.03 MG/DL (0.60-1.30); GFR ESTIMATED 71
[2022-08-27 17:48] LABS: BUN/CREATININE RATIO 17
[2022-08-27 17:49] LABS: ALANINE AMINOTRANSFERASE 36 U/L (0-55)
[2022-08-27] MEDS ORDERED: NS IV 500 ML 500 ML IV STA (17:55)
[2022-08-27] MEDS ORDERED: PIPERACILLIN SODIUM/TAZOBACTAM 4.5 GM in NS (IVPB) 100 ML IV ONE (18:00)
[2022-08-27] MEDS ORDERED: ACETAMINOPHEN 325 MG TABLET PO PRN (19:15)
[2022-08-27] MEDS ORDERED: BISACODYL 10 MG SUPP (DULCOLAX) PR PRN (19:15)
[2022-08-27] MEDS ORDERED: MELATONIN 3 MG TABLET PO PRN (19:15)
[2022-08-27] MEDS ORDERED: ANTACID SUSP 30 ML UDC (MYLANTA) PO PRN (19:15)
[2022-08-27] MEDS ORDERED: LACTULOSE SYRUP 10GM/15ML (ENULOSE) 30ML UDC PO PRN (19:15)
[2022-08-27] MEDS ORDERED: MILK OF MAGNESIA 400 MG/5 ML 30 ML UDC PO PRN (19:15)
[2022-08-27] MEDS ORDERED: HYDROmorphone 2 MG/ML VIAL (DILAUDID) IV PRN (19:15)
[2022-08-27] MEDS ORDERED: PHARMACY TO DOSE IV SCH (19:15)
[2022-08-27] MEDS ORDERED: diphenhydrAMINE 50 MG/ML INJ (BENADRYL) IVP PRN (19:15)
[2022-08-27] MEDS ORDERED: CALCIUM CARBONATE 500 MG (TUMS) TAB.CHEW PO PRN (19:15)
[2022-08-27] MEDS ORDERED: diphenhydrAMINE 25 MG TAB (BENADRYL) PO PRN (19:15)
[2022-08-27] MEDS ORDERED: polyethylene glycoL POWDER 17 GM (MIRALAX) PACK PO PRN (19:15)
[2022-08-27] MEDS ORDERED: VANCOMYCIN 2000 MG/NS 500 ML IVPB IV NR ×2 (20:00)
[2022-08-27] MEDS: NS IV 1000 ML 1,000 ML IV SCH (20:15)
[2022-08-27] MEDS: DOCUSATE SODIUM 100 MG (COLACE) CAP PO SCH (20:19)
[2022-08-27] MEDS: SENNOSIDES 8.6 MG (SENOKOT) TAB PO SCH (20:19)
[2022-08-27] MEDS: ENOXAPARIN 40 MG/0.4 ML (LOVENOX) SYR SC SCH (20:19)
[2022-08-27] MEDS: inSUlin ASPART (NovoLOG) 1 UNIT/0.01 ML (CHARGE PER UNIT) SC SCH (20:34)
[2022-08-27] MEDS ORDERED: inSUlin ASPART (NovoLOG) 1 UNIT/0.01 ML (CHARGE PER UNIT) SC SCH (21:00)
[2022-08-27] MEDS ORDERED: RT-ALBUTEROL SULF 2.5 MG/3 ML PRE-MIX VIAL INH PRN (22:30)
[2022-08-28] VITALS (9 sets, daily range): BP systolic 119–161; BP diastolic 58–76
[2022-08-28] MEDS: PIPERACILLIN SODIUM/TAZOBACTAM 4.5 GM in NS (IVPB) 100 ML IV SCH ×4 (00:29→18:15)
[2022-08-28 05:19] LABS: BASOPHILS % (AUTO) 1 % (0-10); EOSINOPHILS # (AUTO) 0.2 10^3/uL (0.0-0.3); EOSINOPHILS % (AUTO) 2 % (0-10); HEMATOCRIT 33 % (40-54); HEMOGLOBIN 10.1 g/dL (13.3-17.7); LYMPHOCYTES # (AUTO) 1.5 10^3/uL (1.0-4.0); LYMPHOCYTES % (AUTO) 17 % (12-44); MEAN CORPUSCULAR HEMOGLOBIN 26 pg (25-34); MEAN CORPUSCULAR HGB CONC 31 g/dL (32-36); MEAN CORPUSCULAR VOLUME 85 fL (80-99); MEAN PLATELET VOLUME 10.2 fL (9.0-12.2); MONOCYTES % (AUTO) 11 % (0-12); NEUTROPHILS # (AUTO) 6.1 10^3/uL (1.8-7.8); NEUTROPHILS % (AUTO) 69 % (42-75); PLATELET COUNT 195 10^3/uL (130-400); WHITE BLOOD COUNT 8.9 10^3/uL (4.3-11.0)
--- NOTE | 2022-08-28 05:55 | History & Physical-Hospitalist ---
History of Present Illness HPI/Chief Complaint Chief complaint: Recurrent pneumonia HPI: This is an 86-year-old white male who has a history of multiple pneumonias in the past who presented once again with cough and subjective fever found to have findings consistent with pneumonia so was placed on broad-spectrum antibiotics and admitted for observation. Oxygen supplementation provided along with nebulizer treatments. Source: patient, old records Date Seen 08/28/22 Time Seen by a Provider: 11:00 Attending Physician [place]/[facility] PCP Admitting Physician: Lorene Wan DO Attending Physician: Lorene Wan DO Referring Physician Date of Admission August 27, 2022 at 18:45 Home Medications & Allergies Home Medications Reviewed patient Home Medication Reconciliation performed by pharmacy medication reconciliations maintenance parts technician and/or nursing. Patients Allergies have been reviewed. Allergies Allergies Coded Allergies Serotonin 5HT-3 Antagonists (Verified Allergy, Unknown, 07/21/22) Tricyclic Antidepressants and Tricy (Verified Allergy, Unknown, 07/21/22) codeine (Verified Allergy, Unknown, pt has rec Morphine in the past, 07/21/22) hydrocodone (Verified Allergy, Unknown, 07/21/22) aspirin (Verified Adverse Reaction, Mild, STOMACH IRRITATION, 07/21/22) Past Nsgcuff-Rmlonb-Olrcjt Hx Patient Social History Marrital Status: Employed/Student: retired Tobacco Use?: No Smoking Status: Former Smoker Use of E-Cig and/or Vaping dev: No Substance use?: No Alcohol Use?: No Pt feels they are or have been: No Immunizations Up To Date Date of Influenza Vaccine: Jan 29, 2022 First/Initial COVID19 Vaccinat: NOV 2020 Second COVID19 Vaccination Jack: DEC 2020 Tetanus Booster (TDap): Less Than 5 Years Hepatitis A: Yes Hepatitis B: Yes PED Vaccines UTD: No Date of Pneumonia Vaccine: Mar 31, 2016 Seasonal Allergies Seasonal Allergies: Yes Current Status Advance Directives: Yes Advance Directive Location: Unable to obtain copy Communicates: Verbally Primary Language: Northern Irish Preferred Spoken Language: Northern Irish Implanted or Applied Medical D: None Past Medical History Surgeries: Abdominal, Adenoidectomy, Cardiac, Eye Surgery, Orthopedic, Prostatectomy, Tonsillectomy Asthma, Pneumonia, Chronic Bronchitis, COPD, Emphysema Currently Using CPAP: No Currently Using BIPAP: No Chronic Edema/Swelling, Coronary Artery Disease, High Cholesterol, Hypertension Dementia Sexually Transmitted Disease: No HIV/AIDS: No Prostate Problems, Kidney Stones Abdominal Hernia, Gastroesophageal Reflux, Chronic Constipation, Polyps, Hiatal Hernia Degenerate Disk Disease, Osteoporosis, Arthritis, Chronic Back Pain Diabetes, Non-Insulin dep Cataract Loss of Vision: Right Hearing Impairment: Denies Prostate, Skin Did You Recieve Any Treatments: Yes What Type of Treatment Did You: Surgical Intervention Anxiety, Depression Blood Disorders: No Adverse Reaction/Blood Tranf: No PMHx: COPD, supplemental oxygen dependent HTN Prostate cancer DMII Osteoarthritis of multiple joints Dementia GERD Anxiety Hyperlipidemia Allergic rhinitis Alzheimer disease SurgHx: Prostatectomy Hernia repair x 2 Cataract Wrist fracture Right eyelid basal cell carcinoma removal Family Medical History FH: breast cancer G8 SISTER Myocardial infarction 19 FATHER Heart Disease CHRONIC GENERALIZED WEAKNESS, FREQUENT FALLS VERY POOR/VERY MINIMAL MOBILITY--HAS POWER CHAIR AND WALKER, WHICH HE HAS REFUSED TO USE AT HOME CHRONIC BILATERAL KNEE PAIN RIGHT EYELID BASAL 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 6.0oz. [id number]; 34.89 BMI Method:Estimated General Appearance: No Apparent Distress, Chronically ill Respiratory: No Accessory Muscle Use, No Respiratory Distress, Crackles, Decreased Breath Sounds Cardiovascular: Regular Rate, Rhythm, No Edema, No Gallop, No JVD, No Murmur, Normal Peripheral Pulses Neurologic/Psychiatric: Alert, Oriented x3, No Motor/Sensory Deficits, Normal Mood/Affect Results Results/Procedures Labs Laboratory Tests 08/27/22 17:00 08/28/22 04:57 Patient resulted labs reviewed. Assessment/Plan Admission Diagnosis Assessment: Recurrent pneumonia Acute on chronic respiratory failure Diabetes Hypertension CAD Exacerbation of COPD Plan: Home meds IV antibiotics Nebulizers Oxygen Admission Status: Observation LORENE WAN DO August 28, 2022 05:55
[2022-08-28 06:02] LABS: ALBUMIN 3.8 GM/DL (3.2-4.5); BILIRUBIN,TOTAL 0.4 MG/DL (0.1-1.0); CREATININE SERUM 0.91 MG/DL (0.60-1.30); POTASSIUM 3.6 MMOL/L (3.6-5.0); TOTAL PROTEIN 7.2 GM/DL (6.4-8.2)
[2022-08-28] MEDS: inSUlin ASPART (NovoLOG) 1 UNIT/0.01 ML (CHARGE PER UNIT) SC SCH ×4 (06:03→20:25)
[2022-08-28] MEDS: VANCOMYCIN 1500MG/300ML PREMIX IV SCH ×2 (08:38→20:37)
[2022-08-28] MEDS: DOCUSATE SODIUM 100 MG (COLACE) CAP PO SCH ×2 (08:38→20:37)
[2022-08-28] MEDS: SENNOSIDES 8.6 MG (SENOKOT) TAB PO SCH ×2 (08:38→20:38)
[2022-08-28] MEDS: NS IV 1000 ML 1,000 ML IV SCH (09:33)
[2022-08-28] MEDS ORDERED: POTA-51 PO (11:37)
[2022-08-28] MEDS ORDERED: GUAI118L69 PO (11:37)
[2022-08-28] MEDS ORDERED: FLUT16SP22 NSEACH (11:37)
[2022-08-28] MEDS ORDERED: GUAI-1166 PO (11:37)
[2022-08-28] MEDS ORDERED: CHOL10004 PO (11:37)
[2022-08-28] MEDS ORDERED: METF-397 PO (11:37)
[2022-08-28] MEDS ORDERED: FURO40TA4 PO (11:37)
--- NOTE | 2022-08-28 11:40 | Physical Therapy Evaluation ---
PT Evaluation-General Medical Diagnosis Admission Date August 27, 2022 at 18:45 Medical Diagnosis: HCAP Onset Date: August 27, 2022 Therapy Diagnosis Therapy Diagnosis: Gait deficit, strength deficit Height/Weight Height (Feet): 5 Height (Inches): 8.00 Weight (Pounds): 250 Weight (Ounces): 6.0 Precautions Precautions/Isolations: Fall Prevention, Standard Precautions Weight Bear Status Right Lower Extremity: Right Weight Bearing/Tolerated Left Lower Extremity: Left Weight Bearing/Tolerated Referral Physician: Dr. Wan Reason for Referral: Evaluation/Treatment Medical History Pertinent Medical History: CAD, COPD, DM, Dementia, HTN, Parkinson's Reviewed History: Yes Social History Home: Single Level Current Living Status: Spouse Entry Into Home: Stairs With Railing PT Steps Into Home: 3 Prior Prior Level of Function SCALE: Activities may be completed with or without assistive devices. 2-Gogoicgzkq-glqjtet completes the activity by him/herself with no assistance from a helper. 5-Set-up or Clean-up Assistance-helper sets up or cleans up; patient completes activity. Harmony assists only prior to or following the activity. 4-Supervision or Touching Assistance-helper provides verbal cues and/or touching/steadying and/or contact guard assistance as patient completes activity. Assistance may be provided throughout the activity or intermittently. 3-Partial/Moderate Assistance-helper does LESS THAN HALF the effort. Harmony lifts, holds or supports trunk or limbs, but provides less than half the effort. 2-Substantial/Maximal Assistance-helper does MORE THAN HALF the effort. Harmony lifts or holds trunk or limbs and provides more than half the effort. 1-Nimfedumw-qhrosq does ALL the effort. Patient does none of the effort to complete the activity. Or, the assistance of 2 or more helpers is required for the patient to complete the activity. If activity was not attempted, code reason: 7-Patient Refused. 9-Not Applicable-not attempted and the patient did not perform the activity before the current illness, exacerbation or injury. 10-Not Attempted due to Environmental Limitations-(lack of equipment, weather restraints, etc.). 88-Not Attempted due to Medical Conditions or Safety Concerns. Bed Mobility: 4 Transfers (B,C,W/C): 4 Gait: 4 Indoor Mobility (Ambulation): Needed Some Help Stairs: Needed Some Help Prior Devices Use: Walker PT Evaluation-Current Subjective Patient lying supine in bed upon PT arrival, agreeable to treatment. Patient reports pain at 0/10. in room, reports she helps him with all ADLs including walking, but mostly just standby in case there is a problem. She states they have a cleaning lady that comes a few hours per week. Their daughter does all the driving as they do not have a car. Objective Patient Orientation: Person, Place, Time, Situation Attachments: Oxygen, IV ROM/Strength ROM Lower Extremities Bilateral ankle DF limited~10 degrees, All other BLE ROMs WFLs Strength Lower Extremities 4-/5 BLEs Sensory Vision: Functional Hearing: Functional Sensation Right Lower Extremit: Impaired Sensation Left Lower Extremity: Impaired Sensation Lower Extremities Patient unable to identify light touch from L5 and down. Transfers Roll Left to Right (QC): 3 Sit to Lying (QC): 3 Lying to Sitting/Side of Bed(Q: 3 Sit to Stand (QC): 3 Chair/Pom-sd-Fenyt Xfer(QC): 3 Gait Does the Patient Walk?: Yes Mode of Locomotion: Walk Anticipated Mode of Locomotion: Walk Walk 10 feet (QC): 3 Walk 50 ft with 2 Turns(QC): 3 Distance: 100' Gait Assistive Device: FWW Balance Sitting Static: Fair Sitting Dynamic: Fair Standing Static: Fair Standing Dynamic: Fair Assessment/Needs Patient tolerated treatment well. He requires min/mod A for all observed bed mobility and transfers. Patient ambulates 100 feet with FWW, with CGA and verbal cues for safety, progression, posture and conservation of energy. Patien t ambulates with severely accentuated thoracic kyphosis, rounded shoulders, head down posture and tends to look at the floor throughout most of the gait cycle. Patient in bed post treatment with and physician in the room, all needs met, nursing notified, call light in hand. Rehab Potential: Fair PT Longterm Goals Voicer Goals PT Longterm Goals Time Frame: Sep 21, 2022 Roll Left & Right (QC): 6 Sit to Lying (QC): 6 Lying-Sitting on Side/Bed(QC): 6 Sit to Stand (QC): 6 Chair/Dbg-nf-Yhcid Xfer(QC): 6 Toilet Transfer (QC): 6 Does the Patient Walk: Yes Walk 10 feet (QC): 5 Walk 50ft with 2 Turns (QC): 5 Walk 150 ft (QC): 5 1 Step (curb) (QC): 4 4 Steps (QC): 4 PT Plan Problem List Problem List: Activity Tolerance, Functional Strength, Safety, Balance, Gait, Transfer, Bed Mobility, ROM Treatment/Plan Treatment Plan: Continue Plan of Care Treatment Plan: Bed Mobility, Education, Functional Activity Eddy, Functional Strength, Group Therapy, Gait, Safety, Therapeutic Exercise, Transfers Treatment Duration: Sep 27, 2022 Frequency: 6 times per week Estimated Hrs Per Day: .25 hour per day Patient and/or Family Agrees t: Yes Safety Risks/Education Patient Education: Gait Training, Transfer Techniques Teaching Recipient: Patient Teaching Methods: Demonstration, Discussion Response to Teaching: Verbalize Understanding, Return Demonstration Time Time In: 1115 Time Out: 1135 DATE: August 28, 2022 Total Billed Treatment Time: 20 Total Billed Treatment Visit, AYLIN THURSTON PT August 28, 2022 11:40
--- NOTE | 2022-08-28 13:12 | Occupational Therapy Eval ---
OT Evaluation-General/PLF Medical Diagnosis Admission Date August 27, 2022 at 18:45 Medical Diagnosis: HCAP Onset Date: August 27, 2022 Therapy Diagnosis Therapy Diagnosis: SOA Height/Weight Height (Feet): 5 Height (Inches): 8.00 Weight (Pounds): 250 Weight (Ounces): 6.0 Precautions Precautions/Isolations: Fall Prevention, Standard Precautions, Pressure Ulcer Weight Bear Status Weight Bearing Restriction: Full Weight Bearing Referral Physician: Dr. Wan Referral Reason: Evaluation/Treatment Medical History Pertinent Medical History: CAD, COPD, DM, Dementia, HTN, Parkinson's Additional Medical History uses 02 2-3 liters NC at home Social History Home: Single Level Current Living Status: Spouse Entry Into Home: Stairs With Railing Steps Into Home: 3 Other Obstacles: Walk in shower w/ chiar , GB on sides of shower, kitchen and toilet, [facility] ADL-Prior Level of Function SCALE: Activities may be completed with or without assistive devices. 1-Ddxdzceolj-kkjxpat completes the activity by him/herself with no assistance from a helper. 5-Set-up or Clean-up Assistance-helper sets up or cleans up; patient completes activity. [place] assists only prior to or following the activity. 4-Supervision or Touching Assistance-helper provides verbal cues and/or touching/steadying and/or contact guard assistance as patient completes activity. Assistance may be provided throughout the activity or intermittently. 3-Partial/Moderate Assistance-helper does LESS THAN HALF the effort. [place] lifts, holds or supports trunk or limbs, but provides less than half the effort. 2-Substantial/Maximal Assistance-helper does MORE THAN HALF the effort. [place] lifts or holds trunk or limbs and provides more than half the effort. 5-Horkbjgfb-pbzugz does ALL the effort. Patient does none of the effort to complete the activity. Or, the assistance of 2 or more helpers is required for the patient to complete the activity. If activity was not attempted, code reason: 7-Patient Refused. 9-Not Applicable-not attempted and the patient did not perform the activity before the current illness, exacerbation or injury. 10-Not Attempted due to Environmental Limitations-(lack of equipment, weather restraints, etc.). 88-Not Attempted due to Medical Conditions or Safety Concerns. Self Care: Needed Some Help (socks and under/pants assists, shower, BM hygeine) Functional Cognition: Needed Some Help DME/Equipment: Bath Chair, Bedside Commode, Grab Bars, Shower Drive Self: No OT Current Status Subjective Agreeable to OT, RUBY is present and attributes to answers for interview Mental Status/Objective Patient Orientation: Person, Place Attachments: IV, Oxygen, Telemetry Current Glasses/Contacts: No Hearing Aids: No Dentures/Partials: No Upper Extremity ROM BUE ROM WFLS for ADLS w/ Assistance, Right elbow lacks 20 extension Upper Extremity Coordination INTACT Upper Extremity Sensation INTACT Upper Extremity Strength +3/5 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 -4/5, is able to transition from side lying to sit w/ bedrail, does not hold MMT against gravity ADL-Treatment Eating (QC): 6 Oral Hygiene (QC): 5 Shower/Bathe Self (QC): 7 Upper Body Dressing (QC): 3 Lower Body Dressing (QC): 3 On/Off Footwear (QC): 1 Toileting Hygiene (QC): 3 Education OT Patient Education: Correct positioning, Energy conservation, Exercise program, Instructions to caregiver, Modified ADL techniques, Progress toward Goal/Update tx plan, Purpose of tx/functional activities, Reviewed precautions, Rehab process, Safety issues, Transfer techniques, Use of adapted equipment Teaching Recipient: Patient, Family Teaching Methods: Demonstration, Discussion Response to Teaching: Verbalize Understanding, Reinforcement Needed OT [facility]iary Goals Client Project Coordinator Goals Eating (QC): 6 Oral Hygiene (QC): 6 Toileting Hygiene (QC): 4 Shower/Bathe Self (QC): 4 Upper Body Dressing (QC): 5 Lower Body Dressing (QC): 3 On/Off Footwear (QC): 1 1=Demonstrate adherence to instructed precautions during ADL tasks. 2=Patient will verbalize/demonstrate understanding of assistive devic es/modifications for ADL. 3=Patient will improve strength/tolerance for activity to enable patient to perform ADL's. OT Education/Plan Problem List/Assessment Assessment: Decreased Activ Tolerance, Decreased Safety Aware, Decreased UE Strength, Impaired Self-Care Skills Discharge Recommendations Plan/Recommendations: Continue POC Therapy Discharge Recommendati: Home & Family (home health) Treatment Plan/Plan of Care Treatment,Training & Education: Yes Patient would benefit from OT for education, treatment and training to promote independence in ADL's, mobility, safety and/or upper extremity function for ADL's. Plan of Care: ADL Retraining, Functional Mobility, Group Exercise/Act as Ind, UE Funct Exercise/Act Treatment Duration: Aug 31, 2022 Frequency: 3 times per week (3-5 times per week) Estimated Hrs Per Day: .25 hour per day Agreement: Yes Rehab Potential: Fair Patient being transferred four medical floor Time Start Time: 12:50 Stop Time: 13:16 DATE: August 28, 2022 Total Time Billed (hr/min): 26 Billed Treatment Time SRINATH PITTS 26 min VIJAYA SIMMONS OT August 28, 2022 13:12
[2022-08-28] MEDS ORDERED: [UNRECOGNIZED DRUG - OTHER] PO PRN (13:45)
[2022-08-28] MEDS ORDERED: metFORMIN 500 MG (GLUCOPHAGE) TAB PO SCH (13:45)
[2022-08-28] MEDS ORDERED: DEXTROMETHORPHAN PO PRN (13:45)
[2022-08-28] MEDS ORDERED: ACETAMINOPHEN 500 MG TAB (TYLENOL) PO PRN (13:45)
[2022-08-28] MEDS ORDERED: GUAIFENESIN PO PRN (13:45)
[2022-08-28] MEDS ORDERED: guaiFENesin/DM (ROBITUSSIN DM) 10 ML UDC PO PRN (14:15)
[2022-08-28] MEDS ORDERED: doxAzosin 4 MG (CARDURA) TAB PO SCH (18:00)
[2022-08-28] MEDS ORDERED: MIRABEGRON 25 MG TAB (MYRBETRIQ) PO SCH (18:00)
[2022-08-28] MEDS: ENOXAPARIN 40 MG/0.4 ML (LOVENOX) SYR SC SCH (20:37)
[2022-08-28] MEDS: clonazePAM 1 MG (KlonoPIN) TAB PO SCH (20:37)
[2022-08-28] MEDS: PREGABALIN 100 MG (LYRICA) CAPSULE PO SCH (20:38)
[2022-08-28] MEDS: FLUTICASONE NASAL SPRAY (FLONASE) 16 GM BTL NS SCH (20:38)
[2022-08-28] MEDS ORDERED: VILAZODONE HCL 10 MG PO SCH (21:00)
[2022-08-28] MEDS ORDERED: MONTELUKAST 10 MG (SINGULAIR) TAB PO SCH (21:00)
[2022-08-28] MEDS ORDERED: DONEPEZIL 5 MG (ARICEPT) TAB PO SCH (21:00)
[2022-08-29] MEDS: NS IV 1000 ML 1,000 ML IV SCH
[2022-08-29] MEDS: PIPERACILLIN SODIUM/TAZOBACTAM 4.5 GM in NS (IVPB) 100 ML IV SCH ×2 (03:34→10:44)
[2022-08-29 04:43] VITALS: BP 149/76
[2022-08-29 05:39] LABS: BASOPHILS % (AUTO) 1 % (0-10); EOSINOPHILS # (AUTO) 0.3 10^3/uL (0.0-0.3); EOSINOPHILS % (AUTO) 3 % (0-10); HEMATOCRIT 33 % (40-54); LYMPHOCYTES # (AUTO) 1.8 10^3/uL (1.0-4.0); LYMPHOCYTES % (AUTO) 21 % (12-44); MEAN CORPUSCULAR HEMOGLOBIN 26 pg (25-34); MEAN CORPUSCULAR HGB CONC 31 g/dL (32-36); MEAN CORPUSCULAR VOLUME 84 fL (80-99); MEAN PLATELET VOLUME 10.3 fL (9.0-12.2); MONOCYTES # (AUTO) 1.1 10^3/uL (0.0-1.0); MONOCYTES % (AUTO) 13 % (0-12); NEUTROPHILS # (AUTO) 5.3 10^3/uL (1.8-7.8); NEUTROPHILS % (AUTO) 62 % (42-75); PLATELET COUNT 189 10^3/uL (130-400); WHITE BLOOD COUNT 8.4 10^3/uL (4.3-11.0)
[2022-08-29 05:51] LABS: ALBUMIN 3.7 GM/DL (3.2-4.5); POTASSIUM 3.4 MMOL/L (3.6-5.0)
[2022-08-29 05:53] LABS: CALCIUM 9.4 MG/DL (8.5-10.1)
[2022-08-29 05:54] LABS: TOTAL PROTEIN 7.2 GM/DL (6.4-8.2)
[2022-08-29] MEDS: inSUlin ASPART (NovoLOG) 1 UNIT/0.01 ML (CHARGE PER UNIT) SC SCH ×2 (05:54→11:43)
[2022-08-29 05:56] LABS: BILIRUBIN,TOTAL 0.5 MG/DL (0.1-1.0)
[2022-08-29 05:57] LABS: CREATININE SERUM 0.78 MG/DL (0.60-1.30)
[2022-08-29 06:12] LABS: VANCOMYCIN,TROUGH 33.5 UG/ML (10.0-20.0)
[2022-08-29] MEDS ORDERED: TROUGH ORDER-PHARMACY XX NR (07:00)
[2022-08-29 07:27] VITALS: BP 157/70
[2022-08-29] MEDS: VANCOMYCIN 1500MG/300ML PREMIX IV SCH (07:57)
[2022-08-29] MEDS: FLUTICASONE NASAL SPRAY (FLONASE) 16 GM BTL NS SCH (08:10)
[2022-08-29] MEDS: PREGABALIN 100 MG (LYRICA) CAPSULE PO SCH (08:10)
[2022-08-29] MEDS: DOCUSATE SODIUM 100 MG (COLACE) CAP PO SCH (08:10)
[2022-08-29] MEDS: clonazePAM 1 MG (KlonoPIN) TAB PO SCH (08:10)
[2022-08-29] MEDS: SENNOSIDES 8.6 MG (SENOKOT) TAB PO SCH (08:11)
[2022-08-29] MEDS ORDERED: LORATADINE (CLARITIN) 10 MG TAB PO SCH (09:00)
[2022-08-29] MEDS ORDERED: RIVASTIGMINE 4.6 MG TD SCH (09:00)
[2022-08-29] MEDS ORDERED: amLODIPine 10 MG (NORVASC) TAB PO SCH (09:00)
[2022-08-29] MEDS ORDERED: KCL 20 MEQ TAB (K-DUR) PO SCH (09:00)
[2022-08-29] MEDS ORDERED: VITAMIN D3 25 MCG (1,000 UNITS) TABLET PO SCH (09:00)
[2022-08-29] MEDS ORDERED: FUROSEMIDE 40 MG (LASIX) TAB PO SCH (09:00)
[2022-08-29] MEDS ORDERED: metFORMIN 500 MG (GLUCOPHAGE) TAB PO SCH (09:00)
--- NOTE | 2022-08-29 11:21 | Physical Therapy Daily Note ---
PT Daily Note-Current Subjective Patient agrees to PT. Pain Section J - Health Conditions 1. Rarely or not at all 2. Occasionally 3. Frequently 4. Almost constantly 8. Unable to answer Pain Effect on Sleep: 1 Pain Interference with Therapy: 1 Pain Interference w/Day-to-Day: 1 Mental Status Attachments: Oxygen Transfers SCALE: Activities may be completed with or without assistive devices. 6-Ghpbdjacku-kbcawki completes the activity by him/herself with no assistance from a helper. 5-Set-up or Clean-up Assistance-helper sets up or cleans up; patient completes activity. [place] assists only prior to or following the activity. 4-Supervision or Touching Assistance-helper provides verbal cues and/or touching/steadying and/or contact guard assistance as patient completes activity. Assistance may be provided throughout the activity or intermittently. 3-Partial/Moderate Assistance-helper does LESS THAN HALF the effort. [place] lifts, holds or supports trunk or limbs, but provides less than half the effort. 2-Substantial/Maximal Assistance-helper does MORE THAN HALF the effort. [place] lifts or holds trunk or limbs and provides more than half the effort. 4-Eofhccvcm-yuoojh does ALL the effort. Patient does none of the effort to complete the activity. Or, the assistance of 2 or more helpers is required for the patient to complete the activity. If activity was not attempted, code reason: 7-Patient Refused. 9-Not Applicable-not attempted and the patient did not perform the activity before the current illness, exacerbation or injury. 10-Not Attempted due to Environmental Limitations-(lack of equipment, weather restraints, etc.). 88-Not Attempted due to Medical Conditions or Safety Concerns. Lying to Sitting/Side of Bed(Q: 6 Sit to Stand (QC): 4 Chair/Tdg-yz-Eghqp Xfer(QC): 4 Weight Bearing Right Lower Extremity: Right Weight Bearing/Tolerated Left Lower Extremity: Left Weight Bearing/Tolerated Gait Training Distance: 250' Walk 10 feet (QC): 4 Walk 50 ft with 2 Turns(QC): 4 Walk 150 ft (QC): 4 Gait Assistive Device: FWW safe and functional with no deviation Assessment Patient tolerated treatment well and is up in recliner with needs met. Plan dismissal this week to home. PT Alf Goals Alf Goals PT Alf Goals Time Frame: Sep 21, 2022 Roll Left & Right (QC): 6 Sit to Lying (QC): 6 Lying-Sitting on Side/Bed(QC): 6 Sit to Stand (QC): 6 Chair/Tbt-bf-Jrhms Xfer(QC): 6 Toilet Transfer (QC): 6 Does the Patient Walk: Yes Walk 10 feet (QC): 5 Walk 50ft with 2 Turns (QC): 5 Walk 150 ft (QC): 5 1 Step (curb) (QC): 4 4 Steps (QC): 4 PT Plan Treatment/Plan Treatment Plan: Continue Plan of Care Treatment Plan: Bed Mobility, Education, Functional Activity Eddy, Functional Strength, Group Therapy, Gait, Safety, Therapeutic Exercise, Transfers Treatment Duration: Sep 27, 2022 Frequency: 6 times per week Estimated Hrs Per Day: .25 hour per day Patient and/or Family Agrees t: Yes Time Time In: 1054 Time Out: 1104 DATE: Aug 29, 2022 Total Billed Treatment Time: 10 Total Billed Treatment 1 visit FA 10 min DEEPIKA CRAMER PT Aug 29, 2022 11:21
[2022-08-29 12:08] VITALS: BP 151/68
[2022-08-29] MEDS ORDERED: AMOX1TAB12 PO (12:10)
--- NOTE | 2022-08-29 12:10 | D/C HH Face to Face Order ---
D/C Face to Face Orders Reconcile Patient Problems Problems Reviewed?: Yes Instructions for Patient Lorna Patient Instructions/FollowUp: PCP 1 week Physician to follow Patient: [facility] Discharge Diet for Home: ADA Diet Patient Problems: PNA Patient Data-Allergies,Ht & Wt Patient Allergies: Coded Allergies: Serotonin 5HT-3 Antagonists (Verified Allergy, Unknown, 07/21/22) Tricyclic Antidepressants and Tricy (Verified Allergy, Unknown, 07/21/22) codeine (Verified Allergy, Unknown, pt has rec Morphine in the past, 07/21/22) hydrocodone (Verified Allergy, Unknown, 07/21/22) aspirin (Verified Adverse Reaction, Mild, STOMACH IRRITATION, 07/21/22) Height (Feet): 5 Height (Inches): 8.00 Weight (Pounds): 250 Weight (Ounces): 6.0 Home Health Need/Face to Face Date of Face to Face: Aug 29, 2022 Clinical Findings: Generalized weakness and fatigue, Instability, Muscle weakness, Shortness of breath I have seen Pt bdrv-cs-vvbo: Yes Discharged To: Home Diagnosis/Conditions: PNA Patient is Homebound due to: Josse fall risk due to instabilty, Muscle weakness Homebound Status Due to the above stated illness, injury or surgical procedure (medical condition or diagnosis) and associated clinical findings, the patient is homebound because of his/her inability to leave home except with aid of a sup portive device and/or person AND leaving the home requires a considerable and taxing effort or is medically contraindicated. Pt req the following assistanc: [facility] Home Health Nursing Orders Home Health Services Order: Nursing Services, Equal Opportunity Director-Evaluate & Treat, Physical Therapy-Evaluate & Treat Home Health Infusion Therapy Line Start Date: August 27, 2022 Certify Stmt I certify that this patient is under my care and that I, a nurse practitioner or a physician; a physician assistant certified working with me, had a face to face encounter that - meets the physician face to face encounter requirements with this patient as dated. MARSHAL SANDERS DO Aug 29, 2022 12:10
--- NOTE | 2022-08-29 12:11 | Discharge Summary ---
Discharge Summary Hospital Course Was the Problem List Reviewed?: Yes Problems/Dx: (1) Pneumonia Status: Chronic (2) COPD exacerbation Status: Acute Hospital Course Date of Admission: August 27, 2022 at 18:45 Admission Diagnosis : [facility] Date of Discharge: 08/29/22 Discharge Diagnosis: [ ] Hospital Course: Patient was admitted for recurrent pneumonia requiring IV antibiotics and home meds were restarted. Labs returned back to normal and he was deemed stable for discharge. Overall poor prognosis given advanced age and recurrent pneumonia. Labs and Pending Lab Test: Laboratory Tests 08/28/22 15:45: Glucometer 137H 08/28/22 20:16: Glucometer 140H 08/29/22 01:27: Glucometer 134H 08/29/22 05:10: White Blood Count 8.4, Red Blood Count 3.87L, Hemoglobin 10.0L, Hematocrit 33L, Mean Corpuscular Volume 84, Mean Corpuscular Hemoglobin 26, Mean Corpuscular Hemoglobin Concent 31L, Red Cell Distribution Width 14.6H, Platelet Count 189, Mean Platelet Volume 10.3, Immature Granulocyte % (Auto) 0, Neutrophils (%) (Auto) 62, Lymphocytes (%) (Auto) 21, Monocytes (%) (Auto) 13H, Eosinophils (%) (Auto) 3, Basophils (%) (Auto) 1, Neutrophils # (Auto) 5.3, Lymphocytes # (Auto) 1.8, Monocytes # (Auto) 1.1H, Eosinophils # (Auto) 0.3, Basophils # (Auto) 0.0, Immature Granulocyte # (Auto) 0.0, Sodium Level 137, Potassium Level 3.4L, Chloride Level 101, Carbon Dioxide Level 24, Anion Gap 12, Blood Urea Nitrogen 8, Creatinine 0.78, Estimat Glomerular Filtration Rate 87, BUN/Creatinine Ratio 10, Glucose Level 104, Calcium Level 9.4, Corrected Calcium 9.6, Total Bilirubin 0.5, Aspartate Amino Transf (AST/SGOT) 54H, Alanine Aminotransferase (ALT/SGPT) 26, Alkaline Phosphatase 53, Total Protein 7.2, Albumin 3.7, Vancomycin Level Trough 33.5*H 08/29/22 12:05: Glucometer 122H Microbiology 08/27/22 Blood Culture - Preliminary, Resulted No growth Home Meds Active Amox Tr-K Clv 875-125 mg Tab (Amoxicillin/Potassium Clav) 875 Mg-125 Mg Tablet 1 Each PO BID Reported Robitussin Honey Max Dm Liquid (Guaifenesin/Dextromethorphan) 100 Mg-5 Mg/5 Ml Liquid 20 Ml PO Q6H PRN Fluticasone Propionate 50 Mcg/Actuation [place].susp 1 [place] NSEACH BID Potassium Chloride 20 Meq Tablet.er 20 Meq PO DAILY Metformin HCl 500 Mg Tablet 500 Mg PO Q12H Furosemide 40 Mg Tablet 40 Mg PO DAILY Diabetic Tussin Dm Max-Str Liq (Guaifenesin/Dextromethorphan) 200 Mg-10 Mg/5 Ml Liquid 10 Ml PO Q6H PRN Vitamin D3 (Cholecalciferol (Vitamin D3)) 25 Mcg (1000 Unit) Tablet 25 Mcg PO DAILY Tylenol Extra Strength (Acetaminophen) 500 Mg Tablet 1,000 Mg PO HS PRN TAKES 2 (500MG) TABS Atorvastatin Calcium 20 Mg Tablet 20 Mg PO DAILY Vilazodone HCl 10 Mg Tablet 10 Mg PO HS Montelukast Sodium 10 Mg Tablet 10 Mg PO HS Pregabalin 100 Mg Capsule 100 Mg PO TID Donepezil HCl 5 Mg Tablet 5 Mg PO HS Hydrochlorothiazide 25 Mg Tablet 25 Mg PO DAILY Albuterol Sulfate 2.5 Mg/3 Ml (0.083 %) Vial.neb 2.5 Mg NEB Q6H PRN Loratadine 10 Mg Tablet 10 Mg PO DAILY Myrbetriq (Mirabegron) 25 Mg Tab.er.24h 25 Mg PO 1800 Rivastigmine 1 Each Patch.td24 4.6 Mg TD DAILY Amlodipine Besylate 10 Mg Tablet 10 Mg PO DAILY Clonazepam 1 Mg Tablet 1 Mg PO TID Doxazosin Mesylate 4 Mg Tablet 4 Mg PO 1800 Assessment/Pt Instructions PCP in 1 week Discharge Planning: <30 minutes discharge planning Discharge Instructions Discharge Diet: ADA Diet Discharge Physical Examination Vital Signs Vital Signs Date Time Temp Pulse Resp B/P (MAP) Pulse Ox O2 Delivery O2 Flow Rate FiO2 08/29/22 12:08 36.6 92 18 151/68 (95) 92 Nasal Cannula 3.00 08/27/22 22:19 32 General Appearance: No Apparent Distress, WD/WN, Chronically ill Allergies: Coded Allergies: Serotonin 5HT-3 Antagonists (Verified Allergy, Unknown, 07/21/22) Tricyclic Antidepressants and Tricy (Verified Allergy, Unknown, 07/21/22) codeine (Verified Allergy, Unknown, pt has rec Morphine in the past, 07/21/22) hydrocodone (Verified Allergy, Unknown, 07/21/22) aspirin (Verified Adverse Reaction, Mild, STOMACH IRRITATION, 07/21/22) Discharge Summary Date of Admission August 27, 2022 at 18:45 Date of Discharge Discharge Date: Aug 29, 2022 Admission Diagnosis Assessment: Recurrent pneumonia Acute on chronic respiratory failure Diabetes Hypertension CAD Exacerbation of COPD Plan: Home meds IV antibiotics Nebulizers Oxygen MARSHAL SANDERS DO Aug 29, 2022 12:11
--- NOTE | 2022-08-29 14:47 | Occupational Ther Daily Note ---
OT Current Status-Daily Note Subjective Resting in bed agreeable to therapy Mental Status/Objective Patient Orientation: Situation ADL-Treatment Therapy Code Descriptions/Definitions Functional [place] Measure: 0=Not Assessed/NA 4=Minimal Assistance 1=Total Assistance 5=Supervision or Setup 2=Maximal Assistance 6=Modified [place] 3=Moderate Assistance 7=Complete IndependenceSCALE: Activities may be completed with or without assistive devices. 0-Feblmzkkfc-nyoeslm completes the activity by him/herself with no assistance from a helper. 5-Set-up or Clean-up Assistance-helper sets up or cleans up; patient completes activity. [place] assists only prior to or following the activity. 4-Supervision or Touching Assistance-helper provides verbal cues and/or touching/steadying and/or contact guard assistance as patient completes activity. Assistance may be provided throughout the activity or intermittently. 3-Partial/Moderate Assistance-helper does LESS THAN HALF the effort. [place] lifts, holds or supports trunk or limbs, but provides less than half the effort. 2-Substantial/Maximal Assistance-helper does MORE THAN HALF the effort. [place] lifts or holds trunk or limbs and provides more than half the effort. 6-[place]-epraot does ALL the effort. Patient does none of the effort to complete the activity. Or, the assistance of 2 or more helpers is required for the patient to complete the activity. If activity was not attempted, code reason: 7-Patient Refused. 9-Not Applicable-not attempted and the patient did not perform the activity before the current illness, exacerbation or injury. 10-Not Attempted due to Environmental Limitations-(lack of equipment, weather restraints, etc.). 88-Not Attempted due to Medical Conditions or Safety Concerns. Other Treatment Functional endurance activity in standing. Increase activity level to return home w/ spouse. Patient and spouse report patient completing more activity in therapy than all day at home Education OT Patient Education: Exercise program, Instructions to caregiver, Modified ADL techniques, Progress toward Goal/Update tx plan, Purpose of tx/functional activities, Reviewed precautions, Rehab process, Safety issues, Transfer techniques Teaching Recipient: Patient, Family Teaching Methods: Discussion Response to Teaching: Reinforcement Needed OT Building Official Goals Building Official Goals Eating (QC): 6 Oral Hygiene (QC): 6 Toileting Hygiene (QC): 4 Shower/Bathe Self (QC): 4 Upper Body Dressing (QC): 5 Lower Body Dressing (QC): 3 On/Off Footwear (QC): 1 1=Demonstrate adherence to instructed precautions during ADL tasks. 2=Patient will verbalize/demonstrate understanding of assistive devices/modifications for ADL. 3=Patient will improve strength/tolerance for activity to enable patient to perform ADL's. OT Education/Plan Discharge Recommendations Plan/Recommendations: Continue POC Treatment Plan/Plan of Care Patient would benefit from OT for education, treatment and training to promote independence in ADL's, mobility, safety and/or upper extremity function for ADL's. Plan of Care: ADL Retraining, Functional Mobility, Group Exercise/Act as Ind, UE Funct Exercise/Act Treatment Duration: Aug 31, 2022 Frequency: 3 times per week (3-5 times per week) Estimated Hrs Per Day: .25 hour per day Agreement: Yes Rehab Potential: Fair OT request patient spouse change chairs to allow patient access to recliner Time Start Time: 11:10 Stop Time: 11:25 DATE: Aug 29, 2022 Total Time Billed (hr/min): 15 Billed Treatment Time FA 15 min VIJAYA SIMMONS OT Aug 29, 2022 14:47
[2022-08-29 14:48] VITALS: BP 151/68
[2022-08-30] MEDS ORDERED: TROUGH ORDER-PHARMACY XX ONE (05:00)
== END 2022-08-29 15:04 | disposition home health service (06) ==
LOC: EDUNIT# 16:46 → ER 16:47 → UNDOADMOB 18:45 → CSD 18:45 → INTOOBSV 18:45 → CSD 19:32 → 4TH 08-28 13:14 → CSD 08-28 13:14 → UNDODISOB 08-29 15:04
PROVIDERS: ADMIT Internal Medicine; ATTEND Internal Medicine
DX: J18.9 Pneumonia, unspecified organism (principal); J44.1 Chronic obstructive pulmonary disease with (acute) exacerbation; E11.9 Type 2 diabetes mellitus without complications; I10 Essential (primary) hypertension; I25.10 Atherosclerotic heart disease of native coronary artery without angina pectoris; J96.21 Acute and chronic respiratory failure with hypoxia; Z79.84 Long term (current) use of oral hypoglycemic drugs; Z87.891 Personal history of nicotine dependence
CPT/HCPCS: 36415; 71045; 80053; 80202; 82947; 83605; 84484; 85025; 87040; 87636; 93005; 94664; 94760; 96366; 96372; 96376; G0378

== ENCOUNTER 2022-11-05 23:18 | Observation (INO) | payer MEDICARE, MEDICAID ==
[~2022-11-05] VITALS: Ht 183 cm; Wt 114.5 kg
[~2022-11-05 23:18] MED LIST changes: +CHOL10004 PO; +FURO40TA4 PO; +GUAI118L69 PO; +POTA-330 PO
--- NOTE | 2022-11-05 23:30 | ED General ---
General Stated Complaint: LEG PAIN Source of Information: Patient Exam Limitations: No Limitations History of Present Illness Date Seen by Provider: Nov 05, 2022 Time Seen by Provider: 23:27 Initial Comments Patient is an 86-year-old male who presents to the emergency department with a chief complaint of bilateral lower extremity leg pain and buttock pain. He says that he feels "weak". He has a history of basically chronic immobility, oxygen dependence, DM, cancer right eye. Lives at home. His helps him and he has home health once a week. He states his legs have been swelling for a year. worse tonight with pain the last 2 days and turning "red". and he says his home health nurse thought his legs may be infected. Known sacral decubitus ulcers his dresses for him (which actually look pretty good this evening). No more SOB than usual. No Abdominal pain - has had some diarrhea tho. Timing/Duration: 1-2 Days Severity: Severe Associated Systoms: Malaise, Weakness Allergies and Home Medications Allergies Coded Allergies: Serotonin 5HT-3 Antagonists (Verified Allergy, Unknown, 07/21/22) Tricyclic Antidepressants and Tricy (Verified Allergy, Unknown, 07/21/22) codeine (Verified Allergy, Unknown, pt has rec Morphine in the past, 07/21/22) hydrocodone (Verified Allergy, Unknown, 07/21/22) aspirin (Verified Adverse Reaction, Mild, STOMACH IRRITATION, 07/21/22) Patient Home Medication List Home Medication List Reviewed: Yes Acetaminophen (Tylenol Extra Strength) 500 Mg Tablet, 1,000 MG PO HS PRN for PAIN, (Reported) Entered as Reported by: EDISON PRESTON on 06/18/22 1430 Albuterol Sulfate (Albuterol Sulfate) 2.5 Mg/3 Ml (0.083 %) Vial.neb, 2.5 MG NEB Q6H PRN for SHORTNESS OF BREATH, (Reported) Entered as Reported by: HILARY APPIAH on 04/23/19 1223 Amlodipine Besylate (Amlodipine Besylate) 10 Mg Tablet, 10 MG PO DAILY, (Reported) Entered as Reported by: HILARY APPIAH on 12/27/15 0851 Amoxicillin/Potassium Clav (Amox Tr-K Clv 875-125 mg Tab) 875 Mg-125 Mg Tablet, 1 EACH PO BID Prescribed by: MARSHAL SANDERS on 08/29/22 1210 Atorvastatin Calcium (Atorvastatin Calcium) 20 Mg Tablet, 20 MG PO DAILY, (Reported) Entered as Reported by: EDISON PRESTON on 06/18/22 1430 Cholecalciferol (Vitamin D3) (Vitamin D3) 25 Mcg (1000 Unit) Tablet, 25 MCG PO DAILY, (Reported) Entered as Reported by: EDISON PRESTON on 08/28/22 1137 Clonazepam (Clonazepam) 1 Mg Tablet, 1 MG PO TID, (Reported) Entered as Reported by: HILARY APPIAH on 12/27/15 0851 Donepezil HCl (Donepezil HCl) 5 Mg Tablet, 5 MG PO HS, (Reported) Entered as Reported by: EDISON PRESTON on 04/06/21 1126 Doxazosin Mesylate (Doxazosin Mesylate) 4 Mg Tablet, 4 MG PO 1800, (Reported) Entered as Reported by: CARIN PRINGLE on 05/27/15 1136 Fluticasone Propionate (Fluticasone Propionate) 50 Mcg/Actuation Floyd.susp, 1 SPRAY NSEACH BID, (Reported) Entered as Reported by: EDISON PRESTON on 08/28/22 1137 Furosemide (Furosemide) 40 Mg Tablet, 40 MG PO DAILY, (Reported) Entered as Reported by: EDISON PRESTON on 08/28/22 1137 Guaifenesin/Dextromethorphan (Diabetic Tussin Dm Max-Str Liq) 200 Mg-10 Mg/5 Ml Liquid, 10 ML PO Q6H PRN for COUGH, (Reported) Entered as Reported by: EDISON PRESTON on 08/28/22 1137 Guaifenesin/Dextromethorphan (Robitussin Honey Max Dm Liquid) 100 Mg-5 Mg/5 Ml Liquid, 20 ML PO Q6H PRN for COUGH, (Reported) Entered as Reported by: EDISON PRESTON on 08/28/22 1137 Hydrochlorothiazide (Hydrochlorothiazide) 25 Mg Tablet, 25 MG PO DAILY, (Reported) Entered as Reported by: EDISON PRESTON on 04/06/21 1126 Loratadine (Loratadine) 10 Mg Tablet, 10 MG PO DAILY, (Reported) Entered as Reported by: HILARY APPIAH on 04/23/19 1009 Metformin HCl (Metformin HCl) 500 Mg Tablet, 500 MG PO Q12H, (Reported) Entered as Reported by: EDISON PRESTON on 08/28/22 1137 Mirabegron (Myrbetriq) 25 Mg Tab.er.24h, 25 MG PO 1800, (Reported) Entered as Reported by: KRYSTIN NEWMAN on 01/26/171801 Montelukast Sodium (Montelukast Sodium) 10 Mg Tablet, 10 MG PO HS, (Reported) Entered as Reported by: EDISON PRESTON on 11/20/21 1253 Potassium Chloride (Potassium Chloride) 20 Meq Tablet.er, 20 MEQ PO DAILY, (Reported) Entered as Reported by: EDISON PRESTON on 08/28/22 113 Pregabalin (Pregabalin) 100 Mg Capsule, 100 MG PO TID, (Reported) Entered as Reported by: EDISON PRESTON on 04/06/21 1126 Rivastigmine (Rivastigmine) 1 Each Patch.td24, 4.6 MG TD DAILY, (Reported) Entered as Reported by: KRYSTIN NEWMAN on 01/26/171801 Vilazodone HCl (Vilazodone HCl) 10 Mg Tablet, 10 MG PO HS, (Reported) Entered as Reported by: EDISON PRESTON on 11/20/21 1253 Review of Systems Review of Systems Constitutional: see HPI EENTM: no symptoms reported Respiratory: no symptoms reported Cardiovascular: no symptoms reported Gastrointestinal: no symptoms reported Genitourinary: no symptoms reported Musculoskeletal: other (leg pain and swelling) Skin: other (ulcers on buttocks) Past Qzqkqrd-Rlwykm-Zlomdx Hx Immunizations Up To Date Tetanus Booster (TDap): Unknown PED Vaccines UTD: No First/Initial COVID19 Vaccinat: NOV 2020 Second COVID19 Vaccination Jack: DEC 2020 Third COVID19 Vaccination Date: 2021 Seasonal Allergies Seasonal Allergies: Yes Past Medical History Surgery/Hospitalization HX: Surgery on right eye (cancer); hernia repair x4, tonsils, 90 hospitalization for hepatitis Surgeries: Yes (RIGHT EYELID BASAL CELL CANCER; HERNIA REPAIR X 4, PER PT ) Abdominal, Adenoidectomy, Cardiac, Eye Surgery, Orthopedic, Prostatectomy, Tonsillectomy Respiratory: Yes (O2 DEPENDENT AT 3L/NC CONTINUOUSLY;MULTIPLE EPISODES OF PNEUMONIA) Asthma, Pneumonia, Chronic Bronchitis, COPD, Emphysema Currently Using CPAP: No Currently Using BIPAP: No Cardiac: Yes Chronic Edema/Swelling, Coronary Artery Disease, High Cholesterol, Hypertension Neurological: Yes Dementia Reproductive Disorders: No Sexually Transmitted Disease: No HIV/AIDS: No Genitourinary: Yes (PROSTATE CANCER > 10 YEARS AGO) Prostate Problems, Kidney Stones Gastrointestinal: Yes (S/P HERNIA REPAIR X 4, PER PT) Abdominal Hernia, Gastroesophageal Reflux, Chronic Constipation, Polyps, Hiatal Hernia Musculoskeletal: Yes (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) Degenerate Disk Disease, Osteoporosis, Arthritis, Chronic Back Pain Endocrine: Yes Diabetes, Non-Insulin dep HEENT: Yes (R EYELID BASAL CELL CANCER;SINUSITIS; NOSEBLEEDS) Cataract Loss of Vision: Right Hearing Impairment: Denies Cancer: Yes (PROSTATE CANCER, BASAL CELL CANCER OF RIGHT EYE) Prostate, Skin Did You Recieve Any Treatments: Yes What Type of Treatment Did You: Surgical Intervention Psychosocial: Yes Anxiety, Depression Integumentary: Yes (SKIN CANCER; PRESSURE ULCERS OF BUTTOCKS/SACRUM, Chronic pruritis) Blood Disorders: No Adverse Reaction/Blood Tranf: No Family Medical History FH: breast cancer G8 SISTER Myocardial infarction 19 FATHER Heart Disease CHRONIC GENERALIZED WEAKNESS, FREQUENT FALLS VERY POOR/VERY MINIMAL MOBILITY--HAS POWER CHAIR AND WALKER, WHICH HE HAS REFUSED TO USE AT HOME CHRONIC BILATERAL KNEE PAIN RIGHT EYELID 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 6.0oz. [id number]; 35.44 BMI Method:Estimated General Appearance: No Apparent Distress, WD/WN, Obese Eyes: Bilateral Eye Normal Inspection Respiratory: No Accessory Muscle Use, No Respiratory Distress Cardiovascular: Regular Rate, Rhythm, Normal Peripheral Pulses Gastrointestinal: Non Tender, Soft Rectal: Other (Bright red diarrheal stool) Extremity: Normal Capillary Refill, Pedal Edema (3+), Other (deep pitting edema below the knees bilaterally) Neurologic/Psychiatric: Alert, Oriented x3, No Motor/Sensory Deficits, Normal Mood/Affect Skin: Warm/Dry, Pallor, Other (slight erythema to the anterior bilateral LE (distal 1/3) with some warmth. Stage 1-2 ulcers to the left medial buttock. clearn and well-dressed) Focused Exam Lactate Level 11/05/22 23:59: Lactic Acid Level 2.12*H 11/06/22 02:00: Lactic Acid Level Laboratory Tests Test 11/05/22 23:59 11/06/22 02:00 Lactic Acid Level 2.12 MMOL/L (0.50-2.00) *H Progress/Results/Core Measures Suspected Sepsis Recent Fever Within 48 Hours: No Infection Criteria Present: None New/Unexplained Altered Menta: No SIRS Temperature: Pulse: Respiratory Rate: Laboratory Tests 11/05/22 23:30: White Blood Count 8.8 Blood Pressure / Mean: 11/05/22 23:59: Lactic Acid Level 2.12*H 11/06/22 02:00: Laboratory Tests 11/05/22 23:30: Creatinine 0.93, INR Comment 1.1, Platelet Count 183, Total Bilirubin 0.3 Results/Orders Lab Results Laboratory Tests Test 11/05/22 23:30 11/05/22 23:59 11/06/22 01:24 11/06/22 01:31 Range/Units White Blood Count 8.8 4.3-11.0 10^3/uL Red Blood Count 3.80 L 4.30-5.52 10^6/uL Hemoglobin 9.9 L 13.3-17.7 g/dL Hematocrit 32 L 40-54 % Mean Corpuscular Volume 85 80-99 fL Mean Corpuscular Hemoglobin 26 25-34 pg Mean Corpuscular Hemoglobin Concent 31 L 32-36 g/dL Red Cell Distribution Width 15.6 H 10.0-14.5 % Platelet Count 183 130-400 10^3/uL Mean Platelet Volume 9.9 9.0-12.2 fL Immature Granulocyte % (Auto) 0 % Neutrophils (%) (Auto) 63 42-75 % Lymphocytes (%) (Auto) 24 12-44 % Monocytes (%) (Auto) 11 0-12 % Eosinophils (%) (Auto) 3 0-10 % Basophils (%) (Auto) 1 0-10 % Neutrophils # (Auto) 5.5 1.8-7.8 10^3/uL Lymphocytes # (Auto) 2.1 1.0-4.0 10^3/uL Monocytes # (Auto) 0.9 0.0-1.0 10^3/uL Eosinophils # (Auto) 0.2 0.0-0.3 10^3/uL Basophils # (Auto) 0.0 0.0-0.1 10^3/uL Immature Granulocyte # (Auto) 0.0 0.0-0.1 10^3/uL Prothrombin Time 14.8 H 12.2-14.7 SEC INR Comment 1.1 0.8-1.4 Activated Partial Thromboplast Time 36 H 24-35 SEC Sodium Level 137 135-145 MMOL/L Potassium Level 4.4 3.6-5.0 MMOL/L Chloride Level 100 98-107 MMOL/L Carbon Dioxide Level 26 21-32 MMOL/L Anion Gap 11 5-14 MMOL/L Blood Urea Nitrogen 14 7-18 MG/DL Creatinine 0.93 0.60-1.30 MG/DL Estimat Glomerular Filtration Rate 80 BUN/Creatinine Ratio 15 Glucose Level 108 H 70-105 MG/DL Calcium Level 9.7 8.5-10.1 MG/DL Corrected Calcium 9.5 8.5-10.1 MG/DL Total Bilirubin 0.3 0.1-1.0 MG/DL Aspartate Amino Transf (AST/SGOT) 44 H 5-34 U/L Alanine Aminotransferase (ALT/SGPT) 29 0-55 U/L Alkaline Phosphatase 67 40-136 U/L Total Protein 8.1 6.4-8.2 GM/DL Albumin 4.2 3.2-4.5 GM/DL Lactic Acid Level 2.12 *H 0.50-2.00 MMOL/L B-Type Natriuretic Peptide 14.0 <100.0 PG/ML Urine Color YELLOW Urine Clarity CLEAR Urine pH 5.5 5-9 Urine Specific Ingram 1.010 L 1.016-1.022 Urine Protein NEGATIVE NEGATIVE Urine Glucose (UA) NEGATIVE NEGATIVE Urine Ketones NEGATIVE NEGATIVE Urine Nitrite NEGATIVE NEGATIVE Urine Bilirubin NEGATIVE NEGATIVE Urine Urobilinogen 0.2 < = 1.0 MG/DL Urine Leukocyte Esterase NEGATIVE NEGATIVE Urine RBC (Auto) 1+ H NEGATIVE Urine RBC 2-5 H /HPF Urine WBC RARE /HPF Urine Crystals NONE /LPF Urine Bacteria NEGATIVE /HPF Urine Casts NONE /LPF Urine Mucus NEGATIVE /LPF Urine Culture Indicated CULTURE PENDING Test 11/06/22 02:00 Range/Units My Orders Orders - THOMAS LUNDBERG MD Cbc With Automated Diff (8/8/23 23:40) Comprehensive Metabolic Panel (11/05/22 23:40) Blood Culture (11/05/22 23:40) Sputum Culture (11/05/22 23:40) Urinalysis (11/05/22 23:40) Urine Culture (11/05/22 23:40) Protime With Inr (11/05/22:40) Partial Thromboplastin Time (11/05/22 23:40) Ed Iv/Invasive Line Start (11/05/22 23:40) Ed Iv/Invasive Line Start (11/05/22 23:40) Vital Signs Adult Sepsis Patie Q15M (11/05/22 23:40) O2 (11/05/22 23:40) Remove Rings In Anticipation O (11/05/22:) Lactic Acid Analyzer (11/05/22 23:40) Chest 1 View, Ap/Pa Only (11/06/22 00:01) Fecal Occult Bedside (11/06/22 01:05) Bnp Jessa (11/06/22 01:22) Vital Signs/I&O 11/05/22 11/05/22 23:23 23:23 Temp 36.9 Pulse 83 Resp 20 B/P (MAP) 146/74 (98) Pulse Ox 94 94 O2 Delivery Nasal Cannula Nasal Cannula O2 Flow Rate 2.00 3.00 Capillary Refill : Progress Note : Time: 02:40 Progress Note Patient seen and evaluated by me. Evaluation today includes physical exam, "septic workup" to include CBC, Chem-12, urinalysis, with lactic acid, coag profile, chest x-ray. Pertinent physical exam findings well-developed well- nourished obese male in no acute distress. Heart is regular in the 60s. Blood pressure is good 150s over 60s. He is on chronic oxygen 2 L per nasal cannula with 95% oxygen saturations. Abdomen is soft. He has sacral decubitus ulcers, stage II that look well taking care of. He has significant bilateral lower extremity edema. While in the emergency department, up to the bedside commode he had a large grossly bloody bowel movement. He is quite pale. Does have some erythema to the anterior distal third of his bilateral lower extremities with some increased warmth however this does not appear cellulitic. Afebrile. Differential diagnosis based on history and physical exam, GI bleed, anemia, renal failure, CHF Labs independently reviewed and interpreted by me. The patient CBC is at his normal baseline with a hemoglobin of 9.9. Platelet count is adequate. Chemistry is unremarkable. His BNP is 14. His initial lactic acid is 2.12, repeat is 2.08. PT is elevated at 14.8, INR of 1.1 PTT of 36. In-N-Out cath UA specimen shows microscopic hematuria. Chest x-ray is unremarkable for any acute pathology. Patient has been monitored throughout his stay here in the emergency department with no deterioration in his condition other than the grossly bloody bowel movement. Case was discussed with Dr. Sanders on for the hospitalist service for [facility] who accepts the patient for observation admission to the medical floor. Will consult Dr. Morris in the morning regarding the bloody bowel movement. He is baseline anemic, no concerns for ICU admission. His BNP is low, he does not have increased pulmonary vascular congestion consistent with CHF. His renal function is normal. He is complaining of pain in his lower extremities with regard to the significant edema. Not concerned at this time for cellulitis. Will not start antibiotics at this time. Suspect that the erythema to the lower legs is mostly due to the swelling. His nurse JERROD Calvo has spoken with his who would like for him to remain a full code for now. I have placed orders for social media analyst consult and wound care consult on his bridge orders. Acetaminophen given for pain. Patient is updated on the plan and agreeable. Diagnostic Imaging Diagonstic Imaging: Xray Plain Films/CT/US/NM/MRI: chest Comments Chest xray - independently reviewed and interpreted by me - low volume - poor inspiratory effortt, no effusion or infiltrate Departure Communication (Admissions) Time/Spoke to Admitting Phy: 02:[address] Sanders ([facility] Hospitalist) Impression Primary Impression: Bilateral lower extremity edema Additional Impressions: Sacral decubitus ulcer, stage II GI bleed Qualified Codes: K92.2 - Gastrointestinal hemorrhage, unspecified Generalized weakness Disposition: ADMITTED INPATIENT Condition: Stable Admissions Decision to Admit Reason: Admit from ER (General) Decision to Admit/Date: Nov 06, 2022 Time/Decision to Admit Time: 02:37 Departure-Patient Inst. Referrals: [facility] (PCP/Family) Primary Care Physician Copy Copies To 1: SALMA RAMIREZ KATHRYN M MD Nov 05, 2022 23:30
[2022-11-05 23:49] LABS: BASOPHILS % (AUTO) 1 % (0-10); EOSINOPHILS # (AUTO) 0.2 10^3/uL (0.0-0.3); EOSINOPHILS % (AUTO) 3 % (0-10); HEMATOCRIT 32 % (40-54); HEMOGLOBIN 9.9 g/dL (13.3-17.7); LYMPHOCYTES # (AUTO) 2.1 10^3/uL (1.0-4.0); LYMPHOCYTES % (AUTO) 24 % (12-44); MEAN CORPUSCULAR HEMOGLOBIN 26 pg (25-34); MEAN CORPUSCULAR HGB CONC 31 g/dL (32-36); MEAN CORPUSCULAR VOLUME 85 fL (80-99); MEAN PLATELET VOLUME 9.9 fL (9.0-12.2); MONOCYTES # (AUTO) 0.9 10^3/uL (0.0-1.0); MONOCYTES % (AUTO) 11 % (0-12); NEUTROPHILS # (AUTO) 5.5 10^3/uL (1.8-7.8); NEUTROPHILS % (AUTO) 63 % (42-75); PLATELET COUNT 183 10^3/uL (130-400); WHITE BLOOD COUNT 8.8 10^3/uL (4.3-11.0)
[2022-11-05 23:53] LABS: INR 1.1 (0.8-1.4); PROTHROMBIN TIME PATIENT 14.8 SEC (12.2-14.7)
[2022-11-06 00:02] LABS: ALBUMIN 4.2 GM/DL (3.2-4.5); BILIRUBIN,TOTAL 0.3 MG/DL (0.1-1.0); CALCIUM 9.7 MG/DL (8.5-10.1); CREATININE SERUM 0.93 MG/DL (0.60-1.30); POTASSIUM 4.4 MMOL/L (3.6-5.0); TOTAL PROTEIN 8.1 GM/DL (6.4-8.2)
[2022-11-06 01:52] LABS: CLARITY,URINE CLEAR; COLOR,URINE YELLOW; GLUCOSE, URINE (UA) NEGATIVE (NEGATIVE); KETONES,URINE NEGATIVE (NEGATIVE); NITRITE,URINE NEGATIVE (NEGATIVE); PH,URINE 5.5 (5-9); PROTEIN,URINE NEGATIVE (NEGATIVE)
[2022-11-06 01:53] LABS: BACTERIA,URINE NEGATIVE /HPF; BILIRUBIN,URINE NEGATIVE (NEGATIVE); LEUKOCYTE ESTERASE ,URINE NEGATIVE (NEGATIVE); WBC,URINE RARE /HPF
[2022-11-06 03:53] VITALS: BP 141/66
[2022-11-06] MEDS ORDERED: ACETAMINOPHEN 500 MG TABLET PO PRN (04:00)
[2022-11-06] MEDS ORDERED: CATHETER FLUSH 10 ML SYR IVP PRN (04:00)
[2022-11-06 04:35] VITALS: BP 146/74
[2022-11-06] MEDS ORDERED: RT-ALBUTEROL SULF 2.5 MG/3 ML PRE-MIX VIAL INH PRN (04:45)
[2022-11-06 04:48] LABS: BASOPHILS % (AUTO) 1 % (0-10); EOSINOPHILS # (AUTO) 0.2 10^3/uL (0.0-0.3); EOSINOPHILS % (AUTO) 3 % (0-10); HEMATOCRIT 34 % (40-54); HEMOGLOBIN 10.4 g/dL (13.3-17.7); LYMPHOCYTES # (AUTO) 1.7 10^3/uL (1.0-4.0); LYMPHOCYTES % (AUTO) 24 % (12-44); MEAN CORPUSCULAR HEMOGLOBIN 26 pg (25-34); MEAN CORPUSCULAR HGB CONC 30 g/dL (32-36); MEAN CORPUSCULAR VOLUME 85 fL (80-99); MEAN PLATELET VOLUME 9.8 fL (9.0-12.2); MONOCYTES # (AUTO) 0.8 10^3/uL (0.0-1.0); MONOCYTES % (AUTO) 11 % (0-12); NEUTROPHILS # (AUTO) 4.3 10^3/uL (1.8-7.8); NEUTROPHILS % (AUTO) 60 % (42-75); PLATELET COUNT 193 10^3/uL (130-400); WHITE BLOOD COUNT 7.1 10^3/uL (4.3-11.0)
--- NOTE | 2022-11-06 05:28 | History & Physical-Hospitalist ---
History of Present Illness HPI/Chief Complaint Chief complaint: Bloody stool HPI: This is an 87 old male who resides at home with caregivers history of recurrent pneumonia who presented to the ER with complaints of a large bloody stool at home. He has had no further stools. Hemoglobin is stable. Dr. Morris consulted and agreed with discharge. This [birth year] his birthday so he wants to go home. Source: patient Exam Limitations: no limitations Date Seen 11/06/22 Time Seen by a Provider: 12:00 Attending Physician [place] PCP Admitting Physician: Lorene Wan DO Attending Physician: Lorene Wan DO Referring Physician Date of Admission Nov 06, 2022 at 03:35 Home Medications & Allergies Home Medications Reviewed patient Home Medication Reconciliation performed by pharmacy medication reconciliations business office technician and/or nursing. Patients Allergies have been reviewed. Allergies Allergies Coded Allergies Serotonin 5HT-3 Antagonists (Verified Allergy, Unknown, 07/21/22) Tricyclic Antidepressants and Tricy (Verified Allergy, Unknown, 07/21/22) codeine (Verified Allergy, Unknown, pt has rec Morphine in the past, 07/21/22) hydrocodone (Verified Allergy, Unknown, 07/21/22) aspirin (Verified Adverse Reaction, Mild, STOMACH IRRITATION, 07/21/22) Past Xgjgtvq-Wcivkv-Twjkwa Hx Patient Social History Marrital Status: Employed/Student: retired Tobacco Use?: No Smoking Status: Former Smoker Use of E-Cig and/or Vaping dev: No Substance use?: No Alcohol Use?: No Pt feels they are or have been: No Immunizations Up To Date Date of Influenza Vaccine: Jan 29, 2022 First/Initial COVID19 Vaccinat: NOV 2020 Second COVID19 Vaccination Jack: DEC 2020 Tetanus Booster (TDap): Unknown Hepatitis A: Yes Hepatitis B: Yes PED Vaccines UTD: No Date of Pneumonia Vaccine: Mar 31, 2016 Seasonal Allergies Seasonal Allergies: Yes Current Status Communicates: Verbally Primary Language: Afghan Preferred Spoken Language: Afghan Is interpretation needed?: No Past Medical History Surgeries: Abdominal, Adenoidectomy, Cardiac, Eye Surgery, Orthopedic, Prostatectomy, Tonsillectomy Asthma, Pneumonia, Chronic Bronchitis, COPD, Emphysema Currently Using CPAP: No Currently Using BIPAP: No Chronic Edema/Swelling, Coronary Artery Disease, High Cholesterol, Hypertension Dementia Sexually Transmitted Disease: No HIV/AIDS: No Prostate Problems, Kidney Stones Abdominal Hernia, Gastroesophageal Reflux, Chronic Constipation, Polyps, Hiatal Hernia Degenerate Disk Disease, Osteoporosis, Arthritis, Chronic Back Pain Diabetes, Non-Insulin dep Cataract Loss of Vision: Right Hearing Impairment: Denies Prostate, Skin Did You Recieve Any Treatments: Yes What Type of Treatment Did You: Surgical Intervention Anxiety, Depression Blood Disorders: No Adverse Reaction/Blood Tranf: No PMHx: COPD, supplemental oxygen dependent HTN Prostate cancer DMII Osteoarthritis of multiple joints Dementia GERD Anxiety Hyperlipidemia Allergic rhinitis Alzheimer disease SurgHx: Prostatectomy Hernia repair x 2 Cataract Wrist fracture Right eyelid basal cell carcinoma removal Family Medical History FH: breast cancer G8 SISTER Myocardial infarction 19 FATHER Heart Disease CHRONIC GENERALIZED WEAKNESS, FREQUENT FALLS VERY POOR/VERY MINIMAL MOBILITY--HAS POWER CHAIR AND WALKER, WHICH HE HAS REFUSED TO USE AT HOME CHRONIC BILATERAL KNEE PAIN RIGHT EYELID BASAL 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 6.0oz. 113.188394za; 34.19 BMI Method:Estimated General Appearance: No Apparent Distress, Chronically ill Eyes: Right Eye Normal Inspection, Right Eye PERRL HEENT: PERRL/EOMI, Normal ENT Inspection, Pharynx Normal, Moist Mucous Membranes Neck: Full Range of Motion, Normal Inspection, Non Tender Respiratory: Chest Non Tender, Lungs Clear, Normal Breath Sounds, No Accessory Muscle Use, No Respiratory Distress Cardiovascular: Regular Rate, Rhythm, No Edema, No Gallop, No JVD, No Murmur, Normal Peripheral Pulses Gastrointestinal: Normal Bowel Sounds, No Organomegaly, No Pulsatile Mass, Non Tender, Soft Back: Normal Inspection, No CVA Tenderness, No Vertebral Tenderness Extremity: Normal Capillary Refill, Normal Inspection, Normal Range of Motion, Non Tender, No Calf Tenderness, No Pedal Edema Neurologic/Psychiatric: Alert, Oriented x3, No Motor/Sensory Deficits, Normal Mood/Affect, data systems manager II-XII Norm as Tested, Abnormal Gait Skin: Normal Color, Warm/Dry Lymphatic: No Adenopathy Results Results/Procedures Labs Laboratory Tests 11/05/22 23:30 11/06/22 04:05 Patient resulted labs reviewed. Assessment/Plan Admission Diagnosis Assessment: Isolated large bloody stool Plan: Discharge home Admission Status: Observation LORENE WAN DO Nov 06, 2022 05:28
[2022-11-06] MEDS ORDERED: CATHETER FLUSH 10 ML SYR IVP SCH (06:00)
[2022-11-06] MEDS ORDERED: FUROSEMIDE INJECTION 40 MG/4 ML VIAL IVP SCH (07:00)
[2022-11-06] MEDS ORDERED: metFORMIN 500 MG TABLET PO SCH (07:00)
--- NOTE | 2022-11-06 07:33 | Diagnostic Imaging Report ---
CLINICAL INDICATIONS: Patient with leg pain and swelling. EXAM: Portable chest x-ray upright view. COMPARISON: Chest x-ray dated 08/27/2022. FINDINGS: Lungs/pleura: There is again seen elevation of the right hemidiaphragm. There is mild bibasilar atelectasis. There is slight increased amorphous airspace opacities involving the right lung base and infiltrate versus progressive atelectasis may be considered. There is no pneumothorax. There is no pleural effusion. Mediastinum: There is a hiatal hernia again seen. Pulmonary vasculature: Unremarkable. Heart: Stable cardiomegaly. Bones/extrathoracic soft tissue: There are degenerative spurs involving the thoracic spine.. IMPRESSION: 1: There is interval development of minimal airspace opacities involving the right lung base which may represent atelectasis versus infiltrate. This is superimposed upon bibasilar atelectasis. 2: There is cardiomegaly with no significant pulmonary vascular congestion. Dictated by: Dictated on workstation # [id number]
--- NOTE | 2022-11-06 07:41 | Progress Note - Surgery ---
REA YANES 11/06/22 0741: Subjective Date Seen by a Provider: Nov 06, 2022 Time Seen by a Provider: 07:41 Subjective/Events-last exam Patient is a confused 87 year old man who presents with abdominal pain and leg pain. When asked why he is he he said "I dont know why". Patient states that he feels "weak". He is having bilateral lower extremity leg pain that is radiating to his knees. He says that both of his legs have been swelling for the last year. When asked to describe the pain- he says "it hurts alot". His leg pain and abdominal pain have been alleviated by rest, worse with movement. He does not remember what he was doing when the abdominal pain started. Patient says that he had an episode of bloody diarrhea. Focused Exam Sepsis Stage: Ruled Out Lactate Level 11/05/22 23:59: Lactic Acid Level 2.12*H 11/06/22 02:00: Lactic Acid Level 2.08*H 11/06/22 04:05: Lactic Acid Level 1.39 Respiratory: No Accessory Muscle Use, No Respiratory Distress Cardiovascular: Regular Rate, Rhythm, No JVD, Other (Bilaterally lower extremity edema) Peripheral Pulses: 2+ Radial Pulses (R), 2+ Radial Pulses (L) Skin: normal color, warm/dry Lactic Acid Level Laboratory Tests Test 11/06/22 04:05 Lactic Acid Level 1.39 MMOL/L (0.50-2.00) Objective Exam Vital Signs Date Time Temp Pulse Resp B/P (MAP) Pulse Ox O2 Delivery O2 Flow Rate FiO2 11/06/22 04:35 36.9 83 94 32 11/06/22 04:12 Nasal Cannula 3.00 11/06/22 03:53 36.4 75 20 141/66 (91) 94 Nasal Cannula 3.00 11/06/22 03:31 77 20 158/79 94 Nasal Cannula 2.00 11/05/22 23:23 94 Nasal Cannula 3.00 11/05/22 23:23 36.9 83 20 146/74 (98) 94 Nasal Cannula 2.00 I & O 11/06/22 07:00 Intake Total 0 ml Balance 0 ml Capillary Refill : General Appearance: No Apparent Distress, WD/WN, Obese Respiratory: No Accessory Muscle Use, No Respiratory Distress Cardiovascular: Regular Rate, Rhythm, Normal Peripheral Pulses Extremity: Normal Capillary Refill, Pedal Edema (3+), Other (deep pitting edema below the knees bilaterally) Neurologic/Psychiatric: Alert, Oriented x3, No Motor/Sensory Deficits, Normal Mood/Affect Skin: Warm/Dry, Pallor, Other (slight erythema to the anterior bilateral LE (distal 1/3) with some warmth. Stage 1-2 ulcers to the left medial buttock. clearn and well-dressed) Results Lab Laboratory Tests 11/05/22 23:30: White Blood Count 8.8, Red Blood Count 3.80L, Hemoglobin 9.9L, Hematocrit 32L, Mean Corpuscular Volume 85, Mean Corpuscular Hemoglobin 26, Mean Corpuscular Hemoglobin Concent 31L, Red Cell Distribution Width 15.6H, Platelet Count 183, Mean Platelet Volume 9.9, Immature Granulocyte % (Auto) 0, Neutrophils (%) (Auto) 63, Lymphocytes (%) (Auto) 24, Monocytes (%) (Auto) 11, Eosinophils (%) (Auto) 3, Basophils (%) (Auto) 1, Neutrophils # (Auto) 5.5, Lymphocytes # (Auto) 2.1, Monocytes # (Auto) 0.9, Eosinophils # (Auto) 0.2, Basophils # (Auto) 0.0, Immature Granulocyte # (Auto) 0.0, Prothrombin Time 14.8H, INR Comment 1.1, Activated Partial Thromboplast Time 36H, Sodium Level 137, Potassium Level 4.4, Chloride Level 100, Carbon Dioxide Level 26, Anion Gap 11, Blood Urea Nitrogen 14, Creatinine 0.93, Estimat Glomerular Filtration Rate 80, BUN/Creatinine Ratio 15, Glucose Level 108H, Calcium Level 9.7, Corrected Calcium 9.5, Total Bilirubin 0.3, Aspartate Amino Transf (AST/SGOT) 44H, Alanine Aminotransferase (ALT/SGPT) 29, Alkaline Phosphatase 67, Total Protein 8.1, Albumin 4.2 11/05/22 23:59: Lactic Acid Level 2.12*H 11/06/22 01:24: B-Type Natriuretic Peptide 14.0 11/06/22 01:31: Urine Color YELLOW, Urine Clarity CLEAR, Urine pH 5.5, Urine Specific [place] 1.010L, Urine Protein NEGATIVE, Urine Glucose (UA) NEGATIVE, Urine Ketones NEGATIVE, Urine Nitrite NEGATIVE, Urine Bilirubin NEGATIVE, Urine Urobilinogen 0.2, Urine Leukocyte Esterase NEGATIVE, Urine RBC (Auto) 1+H, Urine RBC 2-5H, Urine WBC RARE, Urine Crystals NONE, Urine Bacteria NEGATIVE, Urine Casts NONE, Urine Mucus NEGATIVE, Urine Culture Indicated CULTURE PENDING 11/06/22 02:00: Lactic Acid Level 2.08*H 11/06/22 04:05: Lactic Acid Level 1.39, White Blood Count 7.1, Red Blood Count 4.03L, Hemoglobin 10.4L, Hematocrit 34L, Mean Corpuscular Volume 85, Mean Corpuscular Hemoglobin 26, Mean Corpuscular Hemoglobin Concent 30L, Red Cell Distribution Width 15.9H, Platelet Count 193, Mean Platelet Volume 9.8, Immature Granulocyte % (Auto) 0, Neutrophils (%) (Auto) 60, Lymphocytes (%) (Auto) 24, Monocytes (%) (Auto) 11, Eosinophils (%) (Auto) 3, Basophils (%) (Auto) 1, Neutrophils # (Auto) 4.3, Lymphocytes # (Auto) 1.7, Monocytes # (Auto) 0.8, Eosinophils # (Auto) 0.2, Basophils # (Auto) 0.0, Immature Granulocyte # (Auto) 0.0 11/06/22 06:06: Glucometer 137H Assessment/Plan Assessment/Plan Assessment/Plan Anemia CHF Bilateral Lower Extremity Edema Lower GI bleed Continue to montior Hgb MORRISASHLEY Luana DO 11/06/22 1403: Subjective Subjective/Events-last exam Consult requested for bloody stool by Dr. Wan. Patient is an 87 year old male who complaints of b/l lower extremity edema. He also noted a bloody stool yesterday. Reports no previous bloody stools. Not having any problems with bowels. Had diarrhea when occurred. Last colonoscopy many years ago. Largest complaints is his legs and a chronic decubitus ulcer. Hgb stable. He is wanting to go home. Objective Exam General Appearance: No Apparent Distress, WD/WN, Obese HEENT: Normal ENT Inspection, Other (right eye lesion) Neck: Non Tender, Supple Respiratory: Chest Non Tender, No Accessory Muscle Use, No Respiratory Distress Cardiovascular: Regular Rate, Rhythm, No JVD Gastrointestinal: non tender, soft Extremity: Pedal Edema (3+), Other (deep pitting edema below the knees bilaterally) Neurologic/Psychiatric: Alert, No Motor/Sensory Deficits, Normal Mood/Affect Skin: Warm/Dry, Other (slight erythema to the anterior bilateral LE (distal 1/3) with some warmth. Stage 1-2 ulcers to the left medial buttock. clearn and well-dressed) Lymphatic: No Adenopathy Assessment/Plan Assessment/Plan Assessment/Plan lower gi bleed b/l lower ext edema anemia decubitus ulcer hgb stable no other bloody bm he is wanting to go home for his birthday will arrange outpatient follow up wound care for decubitus ulcer Supervisory-Addendum Brief Verification & Attestation Participated in pt care: history, MDM, physical Personally performed: exam, history, MDM, supervision of care Care discussed with: Medical Student Procedures: n/a Results interpretation: Verified all documentation Verification and Attestation of Medical Student E/M Service A medical student performed and documented this service in my presence. I reviewed and verified all information documented by the medical student and made modifications to such information, when appropriate. I personally performed the physical exam and medical decision making. Ashley Morris, Nov 06, 2022,14:03 REA YANES Nov 06, 2022 07:41 ASHLEY MORRIS DO Nov 06, 2022 14:03
[2022-11-06 07:42] VITALS: BP 148/71
[2022-11-06] MEDS: clonazePAM 1 MG TABLET PO SCH ×2 (08:31→13:22)
[2022-11-06] MEDS ORDERED: RT-ALBUTEROL SULF 2.5 MG/3 ML PRE-MIX VIAL INH SCH (09:00)
[2022-11-06] MEDS ORDERED: amLODIPine 5 MG TABLET PO SCH (09:00)
[2022-11-06] MEDS ORDERED: [UNRECOGNIZED DRUG - OTHER] PO (11:06)
[2022-11-06] MEDS ORDERED: SODI50SP NSEACH (11:06)
[2022-11-06] MEDS ORDERED: DIPH25TA65 PO (11:06)
[2022-11-06] MEDS ORDERED: GUAI120L30 PO (11:06)
[2022-11-06] MEDS ORDERED: SODI44SP2 NSEACH (11:06)
[2022-11-06] MEDS ORDERED: MAG-141 PO (11:06)
[2022-11-06] MEDS ORDERED: SENN-36 PO (11:06)
[2022-11-06] MEDS ORDERED: DEXT15DR25 OD (11:06)
[2022-11-06 11:19] VITALS: BP 125/64
--- NOTE | 2022-11-06 12:30 | D/C HH Face to Face Order ---
D/C HH Face to Face Orders Reconcile Patient Problems Problems Reviewed?: Yes Instructions for Patient HH Patient Instructions/FollowUp: PCP 1 week Physician to follow Patient: [facility] Discharge Diet for Home: No Restrictions Patient Problems: Blood in stool Patient Data-Allergies,Ht & Wt Patient Allergies: Coded Allergies: Serotonin 5HT-3 Antagonists (Verified Allergy, Unknown, 07/21/22) Tricyclic Antidepressants and Tricy (Verified Allergy, Unknown, 07/21/22) codeine (Verified Allergy, Unknown, pt has rec Morphine in the past, 07/21/22) hydrocodone (Verified Allergy, Unknown, 07/21/22) aspirin (Verified Adverse Reaction, Mild, STOMACH IRRITATION, 07/21/22) Height (Feet): 5 Height (Inches): 8.00 Weight (Pounds): 250 Weight (Ounces): 6.0 Home Health Need/Face to Face Date of Face to Face: Nov 06, 2022 Clinical Findings: Generalized weakness and fatigue I have seen Pt [id number]: Yes Discharged To: Home Diagnosis/Conditions: Fatigue Patient is Homebound due to: Josse fall risk due to instabilty, Muscle weakness Homebound Status Due to the above stated illness, injury or surgical procedure (medical condition or diagnosis) and associated clinical findings, the patient is homebound because of his/her inability to leave home except with aid of a supportive device and/or person AND leaving the home requires a considerable and taxing effort or is medically contraindicated. Pt req the following assistanc: [facility] Nursing Orders Home Health Services Order: Nursing Services, Hand Shoe Cutter-Evaluate & Treat, Physical Therapy-Evaluate & Treat Home Health Infusion Therapy Line Start Date: Nov 06, 2022 Certify Stmt I certify that this patient is under my care and that I, a nurse practitioner or a physician; a social research assistant working with me, had a face to face encounter that - meets the physician face to face encounter requirements with this patient as dated. MARSHAL SANDERS DO Nov 06, 2022 12:30
--- NOTE | 2022-11-06 12:31 | Discharge Summary ---
Discharge Summary Hospital Course Was the Problem List Reviewed?: Yes Problems/Dx: (1) Generalized weakness Status: Acute Hospital Course Date of Admission: Nov 06, 2022 at 03:35 Admission Diagnosis : Family Physician/Provider: [place] [place] [facility] Date of Discharge: 11/06/22 Discharge Diagnosis: [ ] Hospital Course: See HPI Labs and Pending Lab Test: Laboratory Tests 11/05/22 23:30: White Blood Count 8.8, Red Blood Count 3.80L, Hemoglobin 9.9L, Hematocrit 32L, Mean Corpuscular Volume 85, Mean Corpuscular Hemoglobin 26, Mean Corpuscular Hemoglobin Concent 31L, Red Cell Distribution Width 15.6H, Platelet Count 183, Mean Platelet Volume 9.9, Immature Granulocyte % (Auto) 0, Neutrophils (%) (Auto) 63, Lymphocytes (%) (Auto) 24, Monocytes (%) (Auto) 11, Eosinophils (%) (Auto) 3, Basophils (%) (Auto) 1, Neutrophils # (Auto) 5.5, Lymphocytes # (Auto) 2.1, Monocytes # (Auto) 0.9, Eosinophils # (Auto) 0.2, Basophils # (Auto) 0.0, Immature Granulocyte # (Auto) 0.0, Prothrombin Time 14.8H, INR Comment 1.1, Activated Partial Thromboplast Time 36H, Sodium Level 137, Potassium Level 4.4, Chloride Level 100, Carbon Dioxide Level 26, Anion Gap 11, Blood Urea Nitrogen 14, Creatinine 0.93, Estimat Glomerular Filtration Rate 80, BUN/Creatinine Ratio 15, Glucose Level 108H, Calcium Level 9.7, Corrected Calcium 9.5, Total Bilirubin 0.3, Aspartate Amino Transf (AST/SGOT) 44H, Alanine Aminotransferase (ALT/SGPT) 29, Alkaline Phosphatase 67, Total Protein 8.1, Albumin 4.2 11/05/22 23:59: Lactic Acid Level 2.12*H 11/06/22 01:24: B-Type Natriuretic Peptide 14.0 11/06/22 01:31: Urine Color YELLOW, Urine Clarity CLEAR, Urine pH 5.5, Urine Specific [place] 1.010L, Urine Protein NEGATIVE, Urine Glucose (UA) NEGATIVE, Urine Ketones NEGATIVE, Urine Nitrite NEGATIVE, Urine Bilirubin NEGATIVE, Urine Urobilinogen 0.2, Urine Leukocyte Esterase NEGATIVE, Urine RBC (Auto) 1+H, Urine RBC 2-5H, Urine WBC RARE, Urine Crystals NONE, Urine Bacteria NEGATIVE, Urine Casts NONE, Urine Mucus NEGATIVE, Urine Culture Indicated CULTURE PENDING 11/06/22 02:00: Lactic Acid Level 2.08*H 11/06/22 04:05: Lactic Acid Level 1.39, White Blood Count 7.1, Red Blood Count 4.03L, Hemoglobin 10.4L, Hematocrit 34L, Mean Corpuscular Volume 85, Mean Corpuscular Hemoglobin 26, Mean Corpuscular Hemoglobin Concent 30L, Red Cell Distribution Width 15.9H, Platelet Count 193, Mean Platelet Volume 9.8, Immature Granulocyte % (Auto) 0, Neutrophils (%) (Auto) 60, Lymphocytes (%) (Auto) 24, Monocytes (%) (Auto) 11, Eosinophils (%) (Auto) 3, Basophils (%) (Auto) 1, Neutrophils # (Auto) 4.3, Lymphocytes # (Auto) 1.7, Monocytes # (Auto) 0.8, Eosinophils # (Auto) 0.2, Basophils # (Auto) 0.0, Immature Granulocyte # (Auto) 0.0 11/06/22 06:06: Glucometer 137H 11/06/22 10:32: Glucometer 151H Microbiology 11/06/22 Urine Culture - Preliminary, Resulted Home Meds Active Reported [place] Saline (Sodium Chloride) 0.65 % Ute 1 Ute NSEACH BID Deep Sea (Sodium Chloride) 0.65 % Ute 2 Ute NSEACH UD PRN Genteal Tears 0.1%-0.3% Drop (Dextran 70/Hypromellose) 0.1 %-0.3 % Drops 1-2 Drop OD Q6H PRN Safetussin Dm Liquid (Guaifenesin/Dextromethorphan) 100 Mg-10 Mg/5 Ml Liquid 10 Ml PO HS Mylanta Maximum Strength Liq (Mag Hydrox/Aluminum Hyd/Simeth) 400 Mg-400 Mg-40 Mg/5 Ml Oral.susp 10-20 Ml PO Q8H PRN Senokot (Sennosides) 8.6 Mg Tablet 25.8 Mg PO HS TAKES 3 (8.6MG) TABS [Restless Legs Pm] 2 Ea PO HS Benadryl Allergy (Diphenhydramine HCl) 25 Mg Tablet 25 Mg PO BID Robitussin Honey Max Dm Liquid (Guaifenesin/Dextromethorphan) 100 Mg-5 Mg/5 Ml Liquid 20 Ml PO HS Fluticasone Propionate 50 Mcg/Actuation Ute.susp 1 Ute NSEACH BID Potassium Chloride 20 Meq Tablet.er 20 Meq PO DAILY Metformin HCl 500 Mg Tablet 500 Mg PO DAILY Furosemide 40 Mg Tablet 40 Mg PO DAILY Vitamin D3 (Cholecalciferol (Vitamin D3)) 25 Mcg (1000 Unit) Tablet 25 Mcg PO BID Tylenol Extra Strength (Acetaminophen) 500 Mg Tablet 1,000 Mg PO BID TAKES 2 (500MG) TABS Atorvastatin Calcium 20 Mg Tablet 20 Mg PO DAILY Vilazodone HCl 10 Mg Tablet 10 Mg PO HS Montelukast Sodium 10 Mg Tablet 10 Mg PO HS Pregabalin 100 Mg Capsule 100 Mg PO TID Donepezil HCl 5 Mg Tablet 5 Mg PO HS Hydrochlorothiazide 25 Mg Tablet 25 Mg PO DAILY Albuterol Sulfate 2.5 Mg/3 Ml (0.083 %) Vial.neb 2.5 Mg NEB Q6H PRN Loratadine 10 Mg Tablet 10 Mg PO DAILY Myrbetriq (Mirabegron) 25 Mg Tab.er.24h 25 Mg PO 1700 Rivastigmine 1 Each Patch.td24 4.6 Mg TD DAILY Amlodipine Besylate 10 Mg Tablet 10 Mg PO DAILY Clonazepam 1 Mg Tablet 1 Mg PO TID Doxazosin Mesylate 4 Mg Tablet 4 Mg PO DAILY Assessment/Pt Instructions PCP in 1 week Discharge Planning: <30 minutes discharge planning Discharge Instructions Discharge Diet: No Restrictions Discharge Physical Examination Vital Signs Vital Signs Date Time Temp Pulse Resp B/P (MAP) Pulse Ox O2 Delivery O2 Flow Rate FiO2 11/06/22 11:19 36.3 86 20 125/64 (84) 93 Nasal Cannula 3.00 11/06/22 04:35 32 General Appearance: No Apparent Distress, WD/WN, Chronically ill Allergies: Coded Allergies: Serotonin 5HT-3 Antagonists (Verified Allergy, Unknown, 07/21/22) Tricyclic Antidepressants and Tricy (Verified Allergy, Unknown, 07/21/22) codeine (Verified Allergy, Unknown, pt has rec Morphine in the past, 07/21/22) hydrocodone (Verified Allergy, Unknown, 07/21/22) aspirin (Verified Adverse Reaction, Mild, STOMACH IRRITATION, 07/21/22) Discharge Summary Date of Admission Nov 06, 2022 at 03:35 Date of Discharge Discharge Date: Nov 06, 2022 MARSHAL SANDERS DO Nov 06, 2022 12:31
[2022-11-06 14:30] VITALS: BP 125/64
--- NOTE | 2022-11-06 14:48 | Wound Care Assessment ---
Wound Care Assessment Date Seen by Provider: Nov 06, 2022 Time Seen by Provider: 14:43 Chief Complaint Full thickness ulcer left buttock HPI This pleasant 87 year old gentleman was admitted to the hospital with a GIB and weakness. I was consulted for ulcers to buttock. Ronald has a h/o candidal skin infections and does appear to have a candidal rash on his right buttock today with small ulcerations. He is incontinent of bowel and bladder and with evidence of moisture related dermatitis. He does have h/o DM2, obeisty, chronic anemia, generalized weakness and dementia which also complicate his wound healing. Past Medical History: Admits Diabetes Type II, Admits Heart Disease Anemia, obesity, GIB, incontinence (dual), dementia, COPD Smoking Status: Former Smoker Recreational Drug Use: No Alcohol Use: Denies Use Exam Vital Signs Date Time Temp Pulse Resp B/P (MAP) Pulse Ox O2 Delivery O2 Flow Rate FiO2 11/06/22 14:30 36.3 86 20 125/64 93 Nasal Cannula 3.00 11/06/22 04:35 32 Capillary Refill : General Appearance: no apparent distress, obese HEENT: other (R. eye blindness) Neck: full range of motion Respiratory: no respiratory distress, no accessory muscle use Extremities: pedal edema Neurologic/Psychiatric: alert, normal mood/affect, oriented x 3 Skin Character: drainage, erythema, rash Results Laboratory Tests 11/05/22 23:30: White Blood Count 8.8, Red Blood Count 3.80L, Hemoglobin 9.9L, Hematocrit 32L, Mean Corpuscular Volume 85, Mean Corpuscular Hemoglobin 26, Mean Corpuscular Hemoglobin Concent 31L, Red Cell Distribution Width 15.6H, Platelet Count 183, Mean Platelet Volume 9.9, Immature Granulocyte % (Auto) 0, Neutrophils (%) (Auto) 63, Lymphocytes (%) (Auto) 24, Monocytes (%) (Auto) 11, Eosinophils (%) (Auto) 3, Basophils (%) (Auto) 1, Neutrophils # (Auto) 5.5, Lymphocytes # (Auto) 2.1, Monocytes # (Auto) 0.9, Eosinophils # (Auto) 0.2, Basophils # (Auto) 0.0, Immature Granulocyte # (Auto) 0.0, Prothrombin Time 14.8H, INR Comment 1.1, Activated Partial Thromboplast Time 36H, Sodium Level 137, Potassium Level 4.4, Chloride Level 100, Carbon Dioxide Level 26, Anion Gap 11, Blood Urea Nitrogen 14, Creatinine 0.93, Estimat Glomerular Filtration Rate 80, BUN/Creatinine Ratio 15, Glucose Level 108H, Calcium Level 9.7, Corrected Calcium 9.5, Total Bilirubin 0.3, Aspartate Amino Transf (AST/SGOT) 44H, Alanine Aminotransferase (ALT/SGPT) 29, Alkaline Phosphatase 67, Total Protein 8.1, Albumin 4.2 11/05/22 23:59: Lactic Acid Level 2.12*H 11/06/22 01:24: B-Type Natriuretic Peptide 14.0 11/06/22 01:31: Urine Color YELLOW, Urine Clarity CLEAR, Urine pH 5.5, Urine Specific [place] 1.010L, Urine Protein NEGATIVE, Urine Glucose (UA) NEGATIVE, Urine Ketones NEGATIVE, Urine Nitrite NEGATIVE, Urine Bilirubin NEGATIVE, Urine Urobilinogen 0.2, Urine Leukocyte Esterase NEGATIVE, Urine RBC (Auto) 1+H, Urine RBC 2-5H, Urine WBC RARE, Urine Crystals NONE, Urine Bacteria NEGATIVE, Urine Casts NONE, Urine Mucus NEGATIVE, Urine Culture Indicated CULTURE PENDING 11/06/22 02:00: Lactic Acid Level 2.08*H 11/06/22 04:05: Lactic Acid Level 1.39, White Blood Count 7.1, Red Blood Count 4.03L, Hemoglobin 10.4L, Hematocrit 34L, Mean Corpuscular Volume 85, Mean Corpuscular Hemoglobin 26, Mean Corpuscular Hemoglobin Concent 30L, Red Cell Distribution Width 15.9H, Platelet Count 193, Mean Platelet Volume 9.8, Immature Granulocyte % (Auto) 0, Neutrophils (%) (Auto) 60, Lymphocytes (%) (Auto) 24, Monocytes (%) (Auto) 11, Eosinophils (%) (Auto) 3, Basophils (%) (Auto) 1, Neutrophils # (Auto) 4.3, Lym phocytes # (Auto) 1.7, Monocytes # (Auto) 0.8, Eosinophils # (Auto) 0.2, Basophils # (Auto) 0.0, Immature Granulocyte # (Auto) 0.0 11/06/22 06:06: Glucometer 137H 11/06/22 10:32: Glucometer 151H Microbiology 11/06/22 Urine Culture - Preliminary, Resulted Microbiology 8/9/23 Urine Culture - Preliminary, Resulted Wound assessment: 0.2x0.2x0.1cm. The epithelialization is none. There is no tunneling or undermining. Drainage is large and serosanguinous. Granulation is large. Necrotic is none. Margins flat. Erythematous rash with satellite lesions in periwound Assessment/Plan/Dx Assessment: 1. Full thickness ulcer left buttock 2. MASD 3. Dual incontinence 4. GIB with chronic anemia 5. DM2 6. Obesity 7. Candidal dermatitis Plan: 1. Cleanse daily. Miconazole ointment. Secure with [facility]. 2. Thick layer barrier ointment to periarea and skin folds 3. Frequent changing of briefs 4. Defer to PCP/surgery 5. Defer to PCP 6. Defer to PCP 7. Miconazole powder to skin folds and ointment to buttock ORESTES EWING MD Nov 06, 2022 14:48
[2022-11-06] MEDS ORDERED: MICONAZOLE 2% CREAM 30 GM TP SCH (21:00)
[2022-11-06] MEDS ORDERED: MICONAZOLE 2% POWDER 90 GM TOP SCH (21:00)
== END 2022-11-06 14:09 | disposition home health service (06) ==
LOC: EDUNIT# 23:18 → ER 23:20 → 4TH 11-06 03:35
PROVIDERS: ADMIT Internal Medicine; ATTEND Internal Medicine
DX: R53.1 Weakness (principal); D64.9 Anemia, unspecified; I50.9 Heart failure, unspecified; K92.2 Gastrointestinal hemorrhage, unspecified; R60.0 Localized edema; R19.5 Other fecal abnormalities; L89.152 Pressure ulcer of sacral region, stage 2; Z87.891 Personal history of nicotine dependence
CPT/HCPCS: 36415; 51701; 71045; 80053; 81000; 82274; 82947; 83605; 83880; 85025; 85610; 85730; 87040; 87077; 87088; 94640; 94664; 94760; 96374; G0378

== ENCOUNTER → 2023-01-07 | Outpatient (CLI) | payer MEDICARE, MEDICAID ==
[~2023-01-07] MED LIST changes: +DEXT15DR25 OD; +DIPH25TA65 PO; +GUAI120L30 PO; +MAG-141 PO; -PREG100C55 PO; +PREG100C56 PO; +SENN-36 PO; +SODI44SP2 NSEACH; +[UNRECOGNIZED DRUG - OTHER] PO
== END ==
LOC: WOUNDCARE 09:51
PROVIDERS: ATTEND Family Medicine
DX: L98.412 Non-pressure chronic ulcer of buttock with fat layer exposed (principal); E11.622 Type 2 diabetes mellitus with other skin ulcer; M26.81 Anterior soft tissue impingement; L24.A2 Irritant contact dermatitis due to fecal, urinary or dual incontinence; E66.01 Morbid (severe) obesity due to excess calories; Z68.27 Body mass index [BMI] 27.0-27.9, adult
CPT/HCPCS: 99213

== ENCOUNTER → 2023-01-14 | Outpatient (CLI) | payer MEDICARE, MEDICAID | LOC: WOUNDCARE 09:54 | PROVIDERS: ATTEND Family Medicine | DX: L24.A2 Irritant contact dermatitis due to fecal, urinary or dual incontinence (principal); E11.622 Type 2 diabetes mellitus with other skin ulcer; M62.81 Muscle weakness (generalized); E66.01 Morbid (severe) obesity due to excess calories | CPT/HCPCS: 99212 ==

== ENCOUNTER → 2023-02-19 | Outpatient (CLI) | payer MEDICARE, MEDICAID ==
[~2023-02-19] MED LIST changes: +GLIP5TAB23 PO
== END ==
LOC: WOUNDCARE 13:53
PROVIDERS: ATTEND Family Medicine
DX: L24.A2 Irritant contact dermatitis due to fecal, urinary or dual incontinence (principal); M62.81 Muscle weakness (generalized)
CPT/HCPCS: 99212

== ENCOUNTER → 2023-03-05 | Outpatient (CLI) | payer MEDICARE, MEDICAID | LOC: CARD 11:22 | PROVIDERS: ATTEND Internal Medicine Cardiovascular Disease | DX: I11.9 Hypertensive heart disease without heart failure (principal); I35.1 Nonrheumatic aortic (valve) insufficiency | CPT/HCPCS: 93306 ==